=== PATIENT | female | born 1940 | race Caucasian/White ===

== ENCOUNTER 2019-11-20 14:16 | Emergency (ER) | payer MEDICARE, SELFPAY ==
[2019-11-20 14:20] VITALS: BP 145/72; PULSE 84; RESP 16; TEMP 36.6; O2SAT 99
--- NOTE | 2019-11-20 14:53 | ED.FEMALEGU ---
HPI - Female Genitourinary General Chief complaint: Urogenital-Female Stated complaint: POS UTI Time Seen by Provider: 11/20/19 14:17 Source: patient Mode of arrival: ambulatory Limitations: no limitations History of Present Illness HPI Narrative: 78-year-old female presents to [facility] care with complaints of lower abdominal pressure and urinary frequency since yesterday. Patient reports long history of urinary tract infections and has had numerous surgeries due to frequent UTIs. Patient reports that she is flying out tomorrow morning to visit her sister in [place] and is concerned that she could be developing a urinary tract infection. Patient denies fever, bites, chills, nausea, vomiting or diarrhea. MD elicited complaint: UTI and other (lower abdominal pressure, urinary frequency ) Onset (ago): day(s) (2) Vaginal discharge: none Vaginal bleeding: none Urinary symptoms: Frequency Exacerbating factors: none Relieving factors: none Treatment prior to arrival: none Sexual activity: No Patient : No Related Data Home Medications Medication Instructions Recorded Confirmed aspirin 81 mg PO DAILY 02/20/19 09/24/19 rosuvastatin 10 mg tablet 10 mg PO DAILY 08/19/19 11/20/19 Saccharomyces boulardii 250 mg 250 mg PO BID 10/15/19 11/20/19 capsule calcium carbonate 390 mg calcium 390 mg PO DAILY 10/15/19 11/20/19 (1,000 mg) tablet cephalexin 250 mg capsule 250 mg PO DAILY 10/15/19 cholecalciferol (vitamin D3) 125 5,000 mcg PO DAILY 10/15/19 mcg (5,000 unit) disintegrating tablet coenzyme Q10 75 mg capsule 75 mg PO DAILY 10/15/19 11/20/19 turmeric 400 mg capsule mg PO 10/15/19 vitamins A,C,E-xkpc-tnbdll 14,320 1 cap PO BID 10/15/19 unit-226 mg-200 unit capsule conjugated estrogens [Premarin] 11/20/19 11/20/19 Allergies Allergy/AdvReac Type Severity Reaction Status Date / Time prednisone Allergy Unknown Unknown Verified 10/28/19 14:24 amoxicillin [From Augmentin] Allergy Rash Verified 10/28/19 14:24 clavulanic acid Allergy Rash Verified 10/28/19 14:24 [From Augmentin] Review of Systems Constitutional: Constitutional: Denies no additional constitutional complaints, Denies chills and Denies fatigue Eyes: Eyes: Denies change in vision and Denies photophobia ENT: Denies dysphagia, Denies dizziness, Denies epistaxis and Denies sore throat Cardiovascular: Cardiovascular: Denies chest pain, Denies rapid heart rate and Denies slow heart rate Respiratory: Respiratory: Denies chest congestion, Denies cough, Denies dyspnea and Denies wheezing Gastrointestinal: Gastrointestinal: Reports abdominal pain, Denies constipation, Denies diarrhea, Denies nausea and Denies vomiting Genitourinary: Genitourinary: Reports nocturia, Denies genital lesions, Denies dysuria, Denies pelvic pain, Denies flank pain and Denies vaginal discharge Neurologic: Denies vertigo, Denies dizziness and Denies syncope [facility] Past Medical History Medical History (Updated 11/20/19 @ 14:59 by Rianna Green APRN) Osteoarthritis of right knee Urinary tract infection, site not specified Social History Social History Smoking status: Never smoker Alcohol intake: never Exam Const: General: no acute distress and alert Nutritional Appearance: well nourished Orientation/consciousness: patient oriented x3 Neck: Neck: normal visual inspection Resp: Effort & Inspection: normal respiratory effort, not labored and not tachypneic Auscultation: clear to auscultation bilaterally, no rales, no rhonchi and no wheezes Cardio: Rate: regular rate, not bradycardic and not tachycardic Rhythm: regular rhythm Heart sounds: no murmurs GI: Inspection: non-distended GI Palp: Yes Soft to palpation, No Tenderness to palpation present (GI), No Guarding due to palpation present (GI), No Hernia present, No Palpable mass present and No Rebound tenderness present Auscultation: normal bow
== END 2019-11-20 15:05 | disposition home or self-care (01) ==
PROVIDERS: Emergency Provider Nurse Practitioner Family; PCP Family Medicine
DX: R35.0 Frequency of micturition (principal); M17.11 Unilateral primary osteoarthritis, right knee
CPT/HCPCS: 81003; 87086; 87088; 99213; G0463

== ENCOUNTER 2020-05-23 13:30 | Emergency (ER) | payer MEDICARE, SELFPAY ==
[2020-05-23 14:07] VITALS: BP 131/76; PULSE 101; RESP 12; TEMP 37; O2SAT 98
--- NOTE | 2020-05-23 14:41 | ED.FEMALEGU ---
HPI - Female Genitourinary General Chief complaint: Urogenital-Female Stated complaint: frequent urination Time Seen by Provider: 05/23/20 14:51 History of Present Illness HPI Narrative: 79-year-old female presents to the care with complaints of urinary urgency, frequency since yesterday. States that she was prescribed by a urogynecologist a preventative antibiotic and ran out about 3 months ago while she was in [place]. Has an appointment with them in June. Reports trying to call and get a refill however was told she needed to be seen in the office before they write a refill. Denies any CVA tenderness. Reports suprapubic pressure. No chest pain or shortness of breath. Denies fevers. Related Data Home Medications Medication Instructions Recorded Confirmed aspirin 81 mg PO DAILY 02/20/19 05/23/20 rosuvastatin 10 mg tablet 10 mg PO DAILY 08/19/19 05/23/20 Saccharomyces boulardii 250 mg 250 mg PO BID 10/15/19 05/23/20 capsule calcium carbonate 390 mg calcium 390 mg PO DAILY 10/15/19 05/23/20 (1,000 mg) tablet cholecalciferol (vitamin D3) 125 5,000 mcg PO DAILY 10/15/19 05/23/20 mcg (5,000 unit) disintegrating tablet coenzyme Q10 75 mg capsule 75 mg PO DAILY 10/15/19 05/23/20 turmeric 400 mg capsule 400 mg PO DAILY 10/15/19 05/23/20 vitamins A,C,T-ngxg-kahygn 14,320 1 cap PO BID 10/15/19 05/23/20 unit-226 mg-200 unit capsule conjugated estrogens [Premarin] 11/20/19 11/20/19 Allergies Allergy/AdvReac Type Severity Reaction Status Date / Time prednisone Allergy Unknown Unknown Verified 05/23/20 14:12 amoxicillin [From Augmentin] Allergy Rash Verified 05/23/20 14:12 clavulanic acid Allergy Rash Verified 05/23/20 14:12 [From Augmentin] Review of Systems Review of Systems: Narrative: CONSTITUTIONAL: Denies fever, chills, or sweats. EYES: Denies visual changes, redness, or discharge. ENT: Denies rhinorrhea, congestion, sore throat, or otalgia. CARDIOVASCULAR: Denies chest pain, palpitations, or edema. RESPIRATORY: Denies cough or dyspnea. GASTROINTESTINAL: Denies abdominal pain, nausea, vomiting, or diarrhea. GENITOURINARY: Reports frequency, urgency and burning with urination SKIN: Denies rash or itching. MUSCULOSKELETAL: Denies back pain, joint pain, or myalgia. NEUROLOGIC: Denies headache, numbness, or weakness. PSYCHIATRIC: Denies anxiety or depression. All other systems reviewed are negative, except as documented in HPI. [facility] Past Medical History Medical History Osteoarthritis of right knee Urinary tract infection, site not specified Surgical History Surgical History (Updated 05/23/20 @ 17:37 by Michelle Turpin) History of bladder surgery Social History Social History Smoking status: Never smoker Alcohol intake: never Comments At the time of my signature, I reviewed and agree with the nursing past medical, surgical, social, and family history. There is no relevant family history pertinent to the patient complaint. Exam Narrative: Exam Narrative: GENERAL: This is a well-nourished, well-developed patient, in no apparent distress. HEAD: normocephalic, atraumatic. EYES: PERRL. Sclera clear/white. Vision is grossly intact. EARS: External ears normal CARDIOVASCULAR: Regular rate and rhythm without murmurs, gallops, or rubs. RESPIRATORY: Clear to auscultation. Breath sounds equal bilaterally. No wheezes, rales, or rhonchi. GASTROINTESTINAL: Abdomen soft, non-tender, nondistended. Bowel sounds are active. No hepato-splenomegaly, or palpable masses. No guarding. SKIN: warm, intact with no suspicious lesions or rash, good texture and turgor. NEURO: awake, alert, and oriented to person, place and time. There were no obvious focal neurologic abnormalities. EXTREMITIES: No joint tenderness, effusion, or edema noted. No calf tenderness. Negative Homans sign bilaterally. BACK: Nontender without deformity.
== END 2020-05-23 14:57 | disposition home or self-care (01) ==
PROVIDERS: Emergency Provider Nurse Practitioner; PCP Family Medicine
DX: N30.01 Acute cystitis with hematuria (principal); M17.11 Unilateral primary osteoarthritis, right knee
CPT/HCPCS: 81003; 87077; 87086; 87088; 87186; 99213; G0463

== ENCOUNTER → 2020-06-02 10:45 | Outpatient (CLI) | payer MEDICARE, SELFPAY ==
--- NOTE | ~2020-06-02 | CT_ITS ---
EXAMINATION: CT abdomen pelvis wo con DATE: 06/02/2020 11:05 INDICATION: Recurrent urinary tract infections TECHNIQUE: Computed tomography (CT) of the abdomen and pelvis was performed without intravenous contr ast. Automated exposure control and iterative reconstruction technique were employed. Exam dose: 771 .53 mGy-cm total exam DLP. COMPARISON: 07/25/2017 CT abdomen pelvis FINDINGS: There are several 3 mm or smaller peripheral and subpleural-based 3 mm smaller nodules at t he left lower lobe, 2 contiguous 3.7 mm and smaller right lower lobe nodules and a small pleural-base d nodule at the posterolateral aspect of the right diaphragm, all stable since 07/25/2017, consistent with benign process(es). No infiltrate or consolidation at the lung bases. Normal heart size. Coronary artery calcifications. Prominent mitral annulus calcification. No pericar dial or pleural effusion. Small sliding hiatal hernia. The liver, gallbladder, bile ducts, spleen, pancreas, pancreatic duct and adrenal glands are unremark able. 2 cm exophytic left renal cysts; the kidneys are otherwise unremarkable. No urinary tract calculus or hydroureteronephrosis. Bilateral posterolateral urinary bladder diverticula. Status post hysterectomy. There is atherosclerotic calcification but normal caliber of the abdominal aorta and iliac arteries. No intraperitoneal or retroperitoneal or pelvic mass lesion or adenopathy or ascites. Normal appendix. There is diverticulosis of the left and to a lesser extent right colon. There is no CT evidence of diverticulitis. No bowel obstruction, bowel wall thickening, pneumatosis or intraperit early free air. Very small fat-containing umbilical hernia. Severe degenerative changes apophyseal joints of the lumbar and lumbosacral area with associated grad e 2 anterolisthesis at L4-5. There is severe degenerative disc disease throughout the lumbar and lumbosacral spine. No suspicious osteolytic or osteoblastic lesions are noted. Bilateral hip osteoarthritis. IMPRESSION: Stable lower lung and pleura-based nodules, unchanged since , therefore benign Small sliding hiatal hernia Left renal cysts Diverticula of the urinary bladder Status post hysterectomy Diverticulosis of the colon; no CT evidence of diverticulitis Reviewed, dictated and finalized at [facility]. Reviewed, dictated and finalized at [facility]. IMPRESSION: Stable lower lung and pleura-based nodules, unchanged since 018, therefore benign Small sliding hiatal hernia Left renal cysts Diverticula of the urinary bladder Status post hysterectomy Diverticulosis of the colon; no CT evidence of diverticulitis
== END ==
DX: N39.0 Urinary tract infection, site not specified (principal); R92.8 Other abnormal and inconclusive findings on diagnostic imaging of breast; I25.10 Atherosclerotic heart disease of native coronary artery without angina pectoris; K44.9 Diaphragmatic hernia without obstruction or gangrene; N32.3 Diverticulum of bladder; Z90.710 Acquired absence of both cervix and uterus; K42.9 Umbilical hernia without obstruction or gangrene; M47.817 Spondylosis without myelopathy or radiculopathy, lumbosacral region; N28.1 Cyst of kidney, acquired; K57.30 Diverticulosis of large intestine without perforation or abscess without bleeding
CPT/HCPCS: 74176

== ENCOUNTER → 2020-09-27 13:01 | Outpatient (CLI) | payer MEDICARE, SELFPAY ==
--- NOTE | ~2020-09-27 | US_ITS ---
EXAMINATION: US retroperitoneal comp DATE: 09/27/2020 14:16 INDICATION: Low back pain and bloating. Bladder infection. TECHNIQUE: Multiple ultrasound grayscale images of the kidneys were obtained. COMPARISON: CT dated 06/02/2020 FINDINGS: The right kidney measures 11.1 x 4.3 x 5.7 cm. The left kidney measures 11.1 x 4.3 x 5.1 cm. The kidn eys demonstrate normal echogenicity. 2.2 cm exophytic cyst at the upper pole of the left kidney. Ther e is no hydronephrosis in either kidney. No stones identified. Again seen are couple bladder diverti cula. IMPRESSION: 1. 2.2 cm left renal cyst. Otherwise normal kidneys with no hydronephrosis. 2. A couple bladder diverticula. Reviewed, dictated and finalized at location [facility].
== END ==
PROVIDERS: PCP Family Medicine; Visit Provider Nurse Practitioner Adult Health
DX: M54.5 Low back pain (principal); N28.1 Cyst of kidney, acquired; N32.3 Diverticulum of bladder
CPT/HCPCS: 76770

== ENCOUNTER → 2020-11-30 10:25 | Outpatient (CLI) | payer MEDICARE, SELFPAY ==
--- NOTE | ~2020-11-30 | MM_ITS ---
EXAMINATION: MM screening brent BI w [facility] HISTORY: Screening mammogram, family history of breast cancer in her sister. TECHNIQUE: Craniocaudal and mediolateral oblique 3-D tomosynthesis images were obtained and synthetic 2-D images were generated. CAD analysis was submitted and interpreted. COMPARISON: No prior mammogram is available for comparison at this institution. BREAST PARENCHYMAL COMPOSITION: There are scattered areas of fibroglandular density. FINDINGS: Scattered benign-appearing calcifications are present. There is no evidence of suspicious m ass, calcification, or architectural distortion to suggest malignancy in either breast. IMPRESSION: 1. No mammographic evidence of malignancy. 2. Recommend routine screening mammography while the patient remains in good health. BI-RADS Category 2: Benign finding(s). Reviewed, dictated and finalized at location [facility]. IMPRESSION: 1. No mammographic evidence of malignancy. 2. Recommend routine screening mammography while the patient remains in good he alth. BI-RADS Category 2: Benign finding(s).
== END ==
PROVIDERS: PCP Family Medicine; Visit Provider Family Medicine
DX: Z12.31 Encounter for screening mammogram for malignant neoplasm of breast (principal)
CPT/HCPCS: 77063; 77067

== ENCOUNTER → 2021-03-23 14:08 | Outpatient (CLI) | payer MEDICARE, SELFPAY ==
--- NOTE | ~2021-03-23 | XR_ITS ---
EXAMINATION: XR chest 2V DATE: 03/23/2021 14:34 INDICATION: Chronic cough. COVID-19 pneumonia in February. TECHNIQUE: Frontal and lateral views of the chest were obtained. COMPARISON: Chest 2 views 01/16/2018, CT abdomen and pelvis 06/02/2020 FINDINGS: There are reticular opacities in right mid and lower lung zones and left lower lung zone. N o pleural effusion or pneumothorax. The heart size is normal. IMPRESSION: 1. New reticular opacities in right mid and lower lung zones and left lower lung zone, consistent wit h atelectasis versus pneumonia versus mild chronic lung disease. Reviewed, dictated and finalized at location [facility]. TER DESIGNER IMPRESSION: 1. New reticular opacities in right mid and lower lung zones and left lower annamarie g zone, consistent with atelectasis versus pneumonia versus mild chronic lung d isease.
== END ==
PROVIDERS: PCP Family Medicine; Visit Provider Physician Assistant Medical
DX: R05.3 Chronic cough (principal)
CPT/HCPCS: 71046

== ENCOUNTER 2021-03-23 17:01 | Emergency (ER) | payer MEDICARE, SELFPAY ==
[2021-03-23 17:05] VITALS: BP 141/113; PULSE 96; RESP 18; TEMP 37; O2SAT 98
[2021-03-23 19:07] VITALS: BP 153/86; PULSE 98; RESP 15; O2SAT 96
--- NOTE | 2021-03-23 21:35 | ED.GENADULT ---
HPI - General Adult General Chief complaint: Shortness of Breath/Dyspnea Stated complaint: sent by for covid pneumonia Time Seen by Provider: 03/23/21 21:08 History of Present Illness HPI narrative: Patient 80-year-old female who presents the emergency department with chief complaint of cough and a bit of shortness of breath. Patient reports she recently was diagnosed COVID-19 patient has had it for at least 5 to 10 days patient reports that she had a chest x-ray today that showed may be a little bit of pneumonia patient was started on Zithromax and also started on Tessalon Perles only 100 mg twice daily. Patient reports that last night she felt worse and now starting to feel little better but still felt like she probably need to be evaluated in the emergency department. Related Data Home Medications Medication Instructions Recorded Confirmed aspirin 81 mg PO DAILY 02/20/19 11/04/20 Saccharomyces boulardii 250 mg 250 mg PO BID 10/15/19 11/04/20 capsule calcium carbonate 390 mg calcium 390 mg PO DAILY 10/15/19 11/04/20 (1,000 mg) tablet cholecalciferol (vitamin D3) 125 5,000 mcg PO DAILY 10/15/19 11/04/20 mcg (5,000 unit) disintegrating tablet coenzyme Q10 75 mg capsule 75 mg PO DAILY 10/15/19 11/04/20 turmeric 400 mg capsule 400 mg PO DAILY 10/15/19 11/04/20 vitamins A,C,R-deof-fayvay 14,320 1 cap PO BID 10/15/19 11/04/20 unit-226 mg-200 unit capsule conjugated estrogens [Premarin] 11/20/19 11/04/20 nitrofurantoin macrocrystal 100 mg 100 mg PO Q12H 10/26/20 11/04/20 capsule Allergies Allergy/AdvReac Type Severity Reaction Status Date / Time prednisone Allergy Unknown Unknown Verified 11/04/20 09:39 amoxicillin [From Augmentin] Allergy Rash Verified 11/04/20 09:39 clavulanic acid Allergy Rash Verified 11/04/20 09:39 [From Augmentin] Review of Systems Review of Systems: A 10 system review of systems was completed on the patient and is negative except for what is stated in the HPI. Nursing and ancillary documentation was reviewed. [facility] Past Medical History Medical History BMI 29.0-29.9,adult BMI 30.0-30.9,adult Cataract, right eye Osteoarthritis of right knee Screen for colon cancer Urinary tract infection, site not specified Surgical History Surgical History History of bladder surgery Family History Family History Father Acute myocardial infarction Heart disease Mother Tobacco abuse Alcohol abuse Cancer Sibling Skin cancer Sibling No problems noted. 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 HEAD: Normocephalic, atraumatic. EYES: PERRLA and EOMI. ENT: Nares clear, no rhinorrhea or epistaxis. Mucous membranes moist. NECK: Supple. CHEST: Clear to auscultation. No respiratory distress. HEART: Regular rate and rhythm. No murmur heard. Normal peripheral pulses. ABDOMEN: Soft, nontender, nondistended, normal active bowel sounds. EXTREMITIES: Normal range of motion. No edema. SKIN: Warm, dry, no rash. NEURO: No focal deficits. Alert and oriented x3. PSYCH: Normal mood and affect. Course Course Emergency Course: Chest x-ray was reviewed from earlier today which showed evidence of pneumonia Vital Signs Vital signs: Vital Signs Temperature 37.0 C 03/23/21 17:05 Pulse Rate
[2021-03-23] MEDS: ALBUTEROL SULFATE (*SP) INHALER 2 PUFF INHALATION (22:04)
== END 2021-03-23 22:27 | disposition home or self-care (01) ==
PROVIDERS: Emergency Provider Emergency Medicine; PCP Family Medicine
DX: U07.1 COVID-19 (principal); J12.82 Pneumonia due to coronavirus disease 2019
CPT/HCPCS: 99283; A9270

== ENCOUNTER → 2021-03-31 12:10 | Outpatient (CLI) | payer MEDICARE, SELFPAY ==
--- NOTE | ~2021-03-31 | XR_ITS ---
EXAMINATION: XR chest 2V EXAM DATE: 03/31/2021 12:35 INDICATION: U07.1 - COVID-19 . TECHNIQUE: Frontal and lateral projections of the chest obtained and reviewed. Comparison is made to prior examination from 03/23/2021. FINDINGS: The lungs are clear. There are no pleural effusions. The cardiomediastinal silhouette is within normal limits. Dense mitral annular calcifications. There is no pneumothorax suspected. The b ones and soft tissues are unremarkable. IMPRESSION: No acute cardiopulmonary findings. Reviewed, dictated and finalized at location [facility]. ERN PHILOSOPHY PROFESSOR
== END ==
PROVIDERS: PCP Family Medicine; Visit Provider Nurse Practitioner Family
DX: U07.1 COVID-19 (principal); R05.3 Chronic cough
CPT/HCPCS: 71046

== ENCOUNTER 2021-04-26 10:22 | Emergency (ER) | payer MEDICARE, SELFPAY ==
[2021-04-26 10:27] VITALS: BP 154/90; PULSE 90; RESP 16; TEMP 36.7; O2SAT 99
--- NOTE | 2021-04-26 10:46 | ED.FEMALEGU ---
HPI - Female Genitourinary General Chief complaint: Urogenital-Female Stated complaint: Urinary pain Time Seen by Provider: 04/26/21 10:55 Source: patient Limitations: no limitations History of Present Illness HPI Narrative: 80-year-old female presented for complaint of UTI symptoms not improving after 6 days of Macrodantin. She was seen at an urgent care in [facility], told she had a UTI and given the antibiotics which she has been compliant. She states they have not informed her of the culture results, but she denies improvement in symptoms. Endorses suprapubic pressure. She denies burning, flank pain, hematuria, nausea, vomiting, diarrhea, fever or chills. She states she has had approximately 6 UTIs per year over the last 4 years and has seen approximately 5 different urologists. Bladder lift surgery 5 years ago. She is scheduled with a urologist in 5 days. Related Data Home Medications Medication Instructions Recorded Confirmed cholecalciferol (vitamin D3) 125 5,000 mcg PO DAILY 10/15/19 04/03/21 mcg (5,000 unit) disintegrating tablet vitamins A,C,T-rzzg-ejcsnv 14,320 1 cap PO BID 10/15/19 04/03/21 unit-226 mg-200 unit capsule aspirin 81 mg tablet,delayed 162 mg PO DAILY tablet 04/01/21 04/03/21 release nitrofurantoin macrocrystal 04/26/21 Allergies Allergy/AdvReac Type Severity Reaction Status Date / Time prednisone Allergy Unknown Unknown Verified 04/01/21 09:25 amoxicillin [From Augmentin] Allergy Rash Verified 04/01/21 09:25 clavulanic acid Allergy Rash Verified 04/01/21 09:25 [From Augmentin] Review of Systems Review of Systems: CONSTITUTIONAL: Denies body aches, fever, chills, or sweats. CARDIOVASCULAR: Denies chest pain, palpitations, or edema. RESPIRATORY: Denies cough or dyspnea. GASTROINTESTINAL: Denies abdominal pain, nausea, vomiting, or diarrhea. GENITOURINARY: Reports suprapubic pressure, denies dysuria, frequency, urgency, hematuria, flank pain SKIN: Denies rash, itching, or wounds. MUSCULOSKELETAL: Denies back pain or myalgia. PMFSH Past Medical History Medical History BMI 29.0-29.9,adult BMI 30.0-30.9,adult Cataract, right eye Osteoarthritis of right knee Screen for colon cancer Urinary tract infection, site not specified Surgical History Surgical History History of bladder surgery Family History Family History Father Acute myocardial infarction Heart disease Mother Tobacco abuse Alcohol abuse Cancer Sibling Skin cancer Sibling No problems noted. Grandparent Heart disease Grandparent Heart disease Social History Social History Smoking status: Former smoker Second hand tobacco smoke exposure: Yes Alcohol intake: current Substance use: never Substance use type: does not use Additional occupation/education comments: [employer] Gender identity (if verbalized by the patient): Female Comments At time of signature, I have reviewed and agree with nursing past medical, surgical, social and family history unless otherwise noted. Please see nursing chart for further information. There is no relevant family history pertinent to the presenting complaint Exam Narrative: GENERAL: Well-appearing and in no acute distress. HEAD: Normocephalic EYES: EOMI. ENT: Mucous membranes pink and moist. NECK: Normal AROM. Supple. CHEST: No respiratory distress. Clear to auscultation. HEART: Regular rate and rhythm. ABDOMEN: Soft, nontender, nondistended, normal active bowel sounds. No CVA tenderness MUSCULOSKELETAL: No bony tenderness. SKIN: Warm, dry, no rash. NEURO: No focal deficits. Alert and oriented x3. Gait steady. PSYCH: Normal affect. No signs of depre
== END 2021-04-26 11:13 | disposition home or self-care (01) ==
PROVIDERS: Emergency Provider Nurse Practitioner Family; PCP Family Medicine
DX: N39.0 Urinary tract infection, site not specified (principal); Z87.891 Personal history of nicotine dependence; H26.9 Unspecified cataract; M17.11 Unilateral primary osteoarthritis, right knee
CPT/HCPCS: 81003; 87086; 99213; G0463

== ENCOUNTER 2021-06-19 11:48 | Emergency (ER) | payer MEDICARE, SELFPAY ==
[2021-06-19 12:59] VITALS: BP 144/86; PULSE 92; RESP 16; TEMP 36.6; O2SAT 99
--- NOTE | 2021-06-19 13:02 | ED.GENADULT ---
HPI - General Adult General Chief complaint: Urogenital-Female Stated complaint: uti symptoms Source: patient Mode of arrival: ambulatory Limitations: no limitations History of Present Illness HPI narrative: Pt presents for evaluation of urinary symptoms that started this weekend. She reports dysuria, suprapubic pressure and lower back pain. No fever, chills, nausea, vomiting, hematuria, hesitancy, urgency. She has a history of recurrent urinary tract infections. She states she has seen multiple urologists in the past and has tried several therapies, which have been ineffective. She states she has been seen at [facility] multiple times for this. Several urine cultures in past showed no growth. One urine culture grew out e coli and vancomycin resistant enterococcus faecalis. Related Data Home Medications Medication Instructions Recorded Confirmed cholecalciferol (vitamin D3) 125 5,000 mcg PO DAILY 10/15/19 06/19/21 mcg (5,000 unit) disintegrating tablet vitamins A,C,D-zzae-ugubzq 14,320 1 cap PO BID 10/15/19 06/19/21 unit-226 mg-200 unit capsule Allergies Allergy/AdvReac Type Severity Reaction Status Date / Time prednisone Allergy Unknown Unknown Verified 06/19/21 12:06 amoxicillin [From Augmentin] Allergy Rash Verified 06/19/21 12:06 clavulanic acid Allergy Rash Verified 06/19/21 12:06 [From Augmentin] Review of Systems Review of Systems: CONSTITUTIONAL: Denies fever, chills, or sweats. EYES: Denies visual changes, redness, or discharge. ENT: Denies rhinorrhea, congestion, sore throat, or otalgia. CARDIOVASCULAR: Denies chest pain, palpitations, or edema. RESPIRATORY: Denies cough or dyspnea. GASTROINTESTINAL: Reports suprapubic pressure. Denies nausea, vomiting, or diarrhea. GENITOURINARY: Reports dysuria without hematuria, urgency, frequency or hesitancy. SKIN: Denies rash or itching. MUSCULOSKELETAL: Denies back pain, joint pain, or myalgia. NEUROLOGIC: Denies headache, numbness, dizziness, or weakness. PSYCHIATRIC: Denies anxiety or depression. [facility] Past Medical History Medical History BMI 29.0-29.9,adult BMI 30.0-30.9,adult Cataract, right eye Osteoarthritis of right knee Screen for colon cancer Urinary tract infection, site not specified Surgical History Surgical History History of bladder surgery Family History Family History Father Acute myocardial infarction Heart disease Mother Tobacco abuse Alcohol abuse Cancer Sibling Skin cancer Sibling No problems noted. 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 HEAD: Normocephalic, atraumatic. EYES: PERRLA and EOMI. ENT: Nares clear, no rhinorrhea or epistaxis. Mucous membranes moist. Oropharynx without tonsillar hypertrophy exudate or other lesions. Bilateral TMs pearly wray nonbulging NECK: Supple. No adenopathy or masses. No carotid bruits or JVD CHEST: Clear to auscultation. No respiratory distress. No wheezes rales or rhonchi HEART: Regular rate and rhythm. No murmur heard. Normal peripheral pulses. ABDOMEN: Soft, nontender, nondistended, normal active bowel sounds. EXTREMITIES: Normal range of motion. No edema. BACK: No CVA tenderness SKIN: Warm, dry, no rash. NEURO: No focal deficits. Alert and oriented x3. PSYCH: Nor
== END 2021-06-19 13:04 | disposition home or self-care (01) ==
PROVIDERS: Emergency Provider Nurse Practitioner; PCP Family Medicine
DX: N39.0 Urinary tract infection, site not specified (principal); Z87.891 Personal history of nicotine dependence; M17.11 Unilateral primary osteoarthritis, right knee
CPT/HCPCS: 81003; 87077; 87086; 87186; 99213; G0463

== ENCOUNTER 2021-08-13 10:07 | Emergency (ER) | payer MEDICARE, SELFPAY ==
[2021-08-13 10:19] VITALS: BP 138/76; PULSE 83; RESP 12; TEMP 36.1; O2SAT 99
--- NOTE | 2021-08-13 10:40 | ED.GENADULT ---
HPI - General Adult General Chief complaint: Urogenital-Female Stated complaint: uti symptoms Source: patient Mode of arrival: ambulatory Limitations: no limitations History of Present Illness HPI narrative: Patient presents for evaluation of urinary symptoms for the last 2 days. Symptoms include dysuria, suprapubic cramping, low back pain, urinary urgency. She denies any fever, chills, nausea, vomiting, hematuria. She has a history of recurrent urinary tract infections. She has been seen at [facility] multiple times in the past for urinary tract infections. I saw her here on 06/19/2021 and diagnosed her with a UTI. She was given Bactrim. Urine culture grew out E. coli, resistant to Bactrim. It was susceptible to Augmentin, but she has an allergy to that. She was changed to macrobid upon receipt of urine culture. She has seen several urologists in the past. She states she has had a battery of tests including cystoscopy. She is not diabetic. She does take some OTC supplements in hopes that she will have decreased frequency of UTI's/ Related Data Home Medications Medication Instructions Recorded Confirmed cholecalciferol (vitamin D3) 125 5,000 mcg PO DAILY 10/15/19 08/13/21 mcg (5,000 unit) disintegrating tablet vitamins A,C,M-pknb-wilyix 14,320 1 cap PO BID 10/15/19 08/13/21 unit-226 mg-200 unit capsule (PreserVision AREDS) conjugated estrogens 0.625 mg/gram 1 applic vaginal DAILY 08/13/21 08/13/21 vaginal cream (Premarin) methenamine hippurate 1 gram tablet 1 tablet PO BID 08/13/21 08/13/21 Allergies Allergy/AdvReac Type Severity Reaction Status Date / Time prednisone Allergy Unknown Unknown Verified 08/13/21 10:19 amoxicillin [From Augmentin] Allergy Rash Verified 08/13/21 10:19 clavulanic acid Allergy Rash Verified 08/13/21 10:19 [From Augmentin] Review of Systems Review of Systems: CONSTITUTIONAL: Denies fever, chills, or sweats. EYES: Denies visual changes, redness, or discharge. ENT: Denies rhinorrhea, congestion, sore throat, or otalgia. CARDIOVASCULAR: Denies chest pain, palpitations, or edema. RESPIRATORY: Denies cough or dyspnea. GASTROINTESTINAL: Reports suprapubic cramping. Denies nausea, vomiting, or diarrhea. GENITOURINARY:Reports dysuria and urgency. Denies hematuria SKIN: Denies rash or itching. MUSCULOSKELETAL: Reports low back pain. Denies joint pain, or myalgia. NEUROLOGIC: Denies headache, numbness, dizziness, or weakness. PSYCHIATRIC: Denies anxiety or depression. [facility] Past Medical History Medical History BMI 29.0-29.9,adult BMI 30.0-30.9,adult Cataract, right eye Osteoarthritis of right knee Screen for colon cancer Urinary tract infection, site not specified Surgical History Surgical History History of bladder surgery Family History Family History Father Acute myocardial infarction Heart disease Mother Tobacco abuse Alcohol abuse Cancer Sibling Skin cancer Sibling No problems noted. 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 HEAD: Normocephalic, atraumatic. EYES: PERRLA and EOMI. ENT: Nares clear, no rhinorrhea or epistaxis. Mucous membranes moist. Oropharynx without tonsillar hypertrophy exudate or other lesions. Bilateral TMs pearly wray nonbulging N
== END 2021-08-13 10:45 | disposition home or self-care (01) ==
PROVIDERS: Emergency Provider Nurse Practitioner; PCP Family Medicine
DX: N39.0 Urinary tract infection, site not specified (principal); Z87.891 Personal history of nicotine dependence; H26.9 Unspecified cataract; M17.11 Unilateral primary osteoarthritis, right knee
CPT/HCPCS: 81003; 87077; 87086; 87186; 99213; G0463

== ENCOUNTER 2021-08-28 11:47 | Emergency (ER) | payer MEDICARE, SELFPAY ==
[2021-08-28 12:10] VITALS: BP 178/95; PULSE 85; RESP 16; TEMP 37.1; O2SAT 99
--- NOTE | 2021-08-28 12:12 | ED.FEMALEGU ---
HPI - Female Genitourinary General Chief complaint: Urogenital-Female Stated complaint: UTI SYMPTOMS Time Seen by Provider: 08/28/21 12:15 Source: patient Mode of arrival: ambulatory Limitations: no limitations History of Present Illness HPI Narrative: is a an 80-year-old female patient presenting to the clinic today with complaints of possible UTI. She reports she finished her nitrofurantoin 10 days ago and is still having bladder pressure, frequency and urgency with urination. She also reports some lower abdominal pressure and low back pain. States she has been having ongoing/frequent UTIs ever since she has had her bladder surgery. Related Data Home Medications Medication Instructions Recorded Confirmed cholecalciferol (vitamin D3) 125 5,000 mcg PO DAILY 10/15/19 08/13/21 mcg (5,000 unit) disintegrating tablet vitamins A,C,X-yhvr-vzspra 14,320 1 cap PO BID 10/15/19 08/13/21 unit-226 mg-200 unit capsule (PreserVision AREDS) conjugated estrogens 0.625 mg/gram 1 applic vaginal DAILY 08/13/21 08/13/21 vaginal cream (Premarin) methenamine hippurate 1 gram tablet 1 tablet PO BID 08/13/21 08/13/21 Allergies Allergy/AdvReac Type Severity Reaction Status Date / Time prednisone Allergy Unknown Unknown Verified 08/13/21 10:19 amoxicillin [From Augmentin] Allergy Rash Verified 08/13/21 10:19 clavulanic acid Allergy Rash Verified 08/13/21 10:19 [From Augmentin] Review of Systems Review of Systems: Pertinent positives per HPI. Patient denies any fever, chills, rash, headache, visual changes, dizziness, cough, runny nose, sore throat, shortness of breath, chest pain, palpitations, nausea, vomiting, diarrhea, constipation, abdominal pain. [facility] Past Medical History Medical History BMI 29.0-29.9,adult BMI 30.0-30.9,adult Cataract, right eye Osteoarthritis of right knee Screen for colon cancer Urinary tract infection, site not specified Surgical History Surgical History History of bladder surgery Family History Family History Father Acute myocardial infarction Heart disease Mother Tobacco abuse Alcohol abuse Cancer Sibling Skin cancer Sibling No problems noted. Grandparent Heart disease Grandparent Heart disease Social History Social History Smoking status: Former smoker Second hand tobacco smoke exposure: Yes Alcohol intake: current Substance use: never Substance use type: does not use Additional occupation/education comments: [employer] insurance Gender identity (if verbalized by the patient): Female Comments At the time of my signature, I reviewed and agree with the nursing past medical, surgical, social, and family history. There is no relevant family history pertinent to the patient complaint. Exam Narrative: General: Well-developed, well nourished, in no apparent distress. Head: Normocephalic, atraumatic. Cardio: Regular rate and rhythm, s1 and s2 normal, no murmur appreciated. Resp: Clear to auscultation bilaterally, no rhonchi, rales, wheezing or rubs. Abdomen: Soft, pliable, bowel sounds present in all quadrants, mild tender to palpation over the suprapubic area, no organomegly, no CVAT tenderness. Course Course Emergency Course: Portions of this record may have been created with voice recognition software. Level of Care: Express Care Visit Vital Signs Vital signs: Vital signs reviewed MDM - Female Genitourinary MDM Narrative Medical decision making narrative: At the time of visit patient is resting comfortably on the exam table. Her last urine culture on August 13 shows that she had E. coli with ESBL in the urine. She was placed on nitrofurantoin fo
== END 2021-08-28 12:35 | disposition home or self-care (01) ==
PROVIDERS: Emergency Provider Nurse Practitioner Family; PCP Family Medicine
DX: N39.0 Urinary tract infection, site not specified (principal); Z87.891 Personal history of nicotine dependence; M17.11 Unilateral primary osteoarthritis, right knee; H26.9 Unspecified cataract
CPT/HCPCS: 81003; 87086; 87088; 99213; G0463

== ENCOUNTER 2021-09-24 09:43 | Emergency (ER) | payer MEDICARE, SELFPAY ==
[2021-09-24 09:51] VITALS: BP 140/88; PULSE 102; RESP 16; TEMP 37.3; O2SAT 97
--- NOTE | 2021-09-24 10:06 | ED.URI ---
HPI - URI/Sore Throat General Chief Complaint: Upper Respiratory Infection Stated Complaint: cough,ears clogged Time Seen by Provider: 09/24/21 10:07 Source: patient, RN notes reviewed and old records reviewed Mode of arrival: ambulatory Limitations: no limitations History of Present Illness HPI Narrative: 80 year old female who presents to [facility] care with complaints with 3-day history of nasal congestion cough, sinus pressure and pain, bilateral ear pressure. Patient states she has not had a fever that she is aware of denies any chills or sweats. patient has not had COVID vaccinations or flu shot this season did have COVID in March. MD elicited complaint: cough, rhinorrhea, nasal congestion, sinus pain and other Pertinent past history: pneumonia and other (COVID) Onset (ago): day(s) (3) Pain scale (0-10): 5 Treatments prior to arrival: other (vitamins, nasal spray and coricidan brand decogestant) Related Data Home Medications Medication Instructions Recorded Confirmed cholecalciferol (vitamin D3) 125 5,000 mcg PO DAILY 10/15/19 09/24/21 mcg (5,000 unit) disintegrating tablet vitamins A,C,N-hkpt-hgtzur 14,320 1 cap PO BID 10/15/19 09/24/21 unit-226 mg-200 unit capsule (PreserVision AREDS) conjugated estrogens 0.625 mg/gram 1 applic vaginal DAILY 08/13/21 09/24/21 vaginal cream (Premarin) methenamine hippurate 1 gram tablet 1 tablet PO BID 08/13/21 09/24/21 Allergies Allergy/AdvReac Type Severity Reaction Status Date / Time prednisone Allergy Unknown Unknown Verified 09/24/21 10:16 amoxicillin [From Augmentin] Allergy Rash Verified 09/24/21 10:16 clavulanic acid Allergy Rash Verified 09/24/21 10:16 [From Augmentin] Review of Systems Review of Systems: CONSTITUTIONAL: Denies known fever, chills, or sweats. EYES: Denies visual changes, redness, or discharge. ENT: Positive rhinorrhea, congestion, no sore throat, bilateral ear pressure CARDIOVASCULAR: Denies chest pain, palpitations, or edema. RESPIRATORY: Positive cough no dyspnea. GASTROINTESTINAL: Denies abdominal pain, nausea, vomiting, or diarrhea. GENITOURINARY: Denies dysuria or hematuria. SKIN: Denies rash or itching. MUSCULOSKELETAL: Denies back pain, joint pain, or myalgia. NEUROLOGIC: Positive headache, no numbness, or weakness. PSYCHIATRIC: Denies anxiety or depression. All systems reviewed & are unremarkable except as noted in HPI and below PMFSH Past Medical History Medical History (Updated 09/25/21 @ 01:03 by Jovanna Malagon NP) BMI 29.0-29.9,adult BMI 30.0-30.9,adult Cataract, right eye COVID-30 March 2021 Osteoarthritis of right knee Screen for colon cancer Urinary tract infection, site not specified Surgical History Surgical History History of bladder surgery Family History Family History Father Acute myocardial infarction Heart disease Mother Tobacco abuse Alcohol abuse Cancer Sibling Skin cancer Sibling No problems noted. Grandparent Heart disease Grandparent Heart disease Social History Social History (Updated 09/25/21 @ 01:04 by Jovanna Malagon NP) Smoking status: Former smoker Second hand tobacco smoke exposure: Yes Alcohol intake: current Alcohol use details: rare Substance use: never Substance use type: does not use Additional occupation/education comments: [employer] insurance Gender identity (if verbalized by the patient): Female Comments At time of signature, agree with nursing past medical, surgical, social and family history. There is no relevant family history pertinent to the presenting complaint Exam Narrative: GENERAL: Ill-appearing, well-nourished, and in no acute distress. HEAD: Normocephalic, atraumatic. EYES: PERRLA and EOMI. ENT: Nares red with clear rhinorrhea no epistaxis. Mucous membranes clemente
== END 2021-09-24 11:06 | disposition home or self-care (01) ==
PROVIDERS: Emergency Provider Registered Nurse; PCP Family Medicine
DX: U07.1 COVID-19 (principal); M17.11 Unilateral primary osteoarthritis, right knee; Z87.891 Personal history of nicotine dependence
CPT/HCPCS: 87426; 99213; C9803; G0463

== ENCOUNTER → 2021-11-09 10:55 | Outpatient (CLI) | payer MEDICARE, SELFPAY ==
--- NOTE | ~2021-11-09 | XR_ITS ---
EXAMINATION: XR abdomen/kub 1V DATE: 11/09/2021 11:53 INDICATION: Hematuria. TECHNIQUE: A supine view of the abdomen on 2 radiographs was obtained. COMPARISON: CT abdomen and pelvis 11/09/2021 FINDINGS: There are no dilated loops of bowel. There is no urolithiasis. IMPRESSION: 1. No urolithiasis. Reviewed, dictated and finalized at location A. IMPRESSION: 1. No urolithiasis.
--- NOTE | ~2021-11-09 | CT_ITS ---
EXAMINATION: CT abdomen pelvis wo/w con DATE: 11/09/2021 11:53 INDICATION: Hematuria. TECHNIQUE: Computed tomography (CT) of the abdomen and pelvis was performed without and with intraven ous contrast using a total of 130 mL Omnipaque-350 intravenous contrast with a double-bolus technique for simultaneous opacification of the renal parenchyma and renal collecting system. Automated exposu re control and iterative reconstruction technique were employed. The dose-length product was 1794.28 mGy-cm. COMPARISON: CT abdomen and pelvis 06/02/2020 FINDINGS: The visualized portions of the lung bases demonstrate minimal atelectasis. Again seen is a few pulmon raymundo nodules measuring up to 4 mm, likely benign. No pleural effusion. The heart size is normal. There are coronary artery calcifications. No pericardial effusion. The liver, spleen, gallbladder, pancrea s, adrenal glands, and right kidney are normal. There are cysts in left kidney measuring up to 2.3 cm . There is no urolithiasis. The ureters are well opacified and are normal. There are 2 intraluminal f illing defects in the bladder, likely hematoma. There are diverticula of the bladder. Pelvic floor dy sfunction is noted. There is diverticulosis of the colon without evidence of diverticulitis. There ar e no dilated loops of bowel. The appendix is normal. There is a small sliding hiatal hernia. There ar e no pathologically enlarged lymph nodes. There is no free intraperitoneal fluid. There is prominent fat in the inguinal canals that may be hernias. There is severe thoracic and lumbar spondylosis. IMPRESSION: 1. No etiology for hematuria. Small filling defects in the bladder lumen are likely hematoma. Reviewed, dictated and finalized at location A. IMPRESSION: 1. No etiology for hematuria. Small filling defects in the bladder lumen are li amberly hematoma.
[2021-11-09 11:28] LABS: Estimated Glomerular Filt Rate > 60
== END ==
PROVIDERS: PCP Family Medicine; Visit Provider Nurse Practitioner Adult Health
DX: R31.29 Other microscopic hematuria (principal)
CPT/HCPCS: 74018; 74178; Q9967

== ENCOUNTER → 2022-01-18 09:49 | Outpatient (CLI) | payer MEDICARE, SELFPAY ==
--- NOTE | ~2022-01-18 | XR_ITS ---
EXAMINATION: XR pelvis 1-2V INDICATION: Bilateral sciatica TECHNIQUE: AP view the pelvis is obtained. COMPARISON: 09/23/2015 FINDINGS: Bone alignment is normal. There is no fracture. There is moderate osteoarthritis of the hip s. Severe lumbar spondylosis is noted. There is calcified atherosclerosis. IMPRESSION: 1. Moderate osteoarthritis of the hips. Reviewed, dictated and finalized at location B. 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
== END ==
PROVIDERS: PCP Family Medicine
DX: M54.50 Low back pain, unspecified (principal); M16.0 Bilateral primary osteoarthritis of hip
CPT/HCPCS: 72170

== ENCOUNTER 2022-03-01 21:31 | Observation (INO) | payer MEDICARE, SELFPAY ==
[2022-03-01] VITALS (14 sets, daily range): BP systolic 100–167; BP diastolic 64–120; PULSE 78–152; RESP 15–20; TEMP 36.4; O2SAT 91–98
--- NOTE | ~2022-03-01 | NM_ITS ---
EXAMINATION: NM pulmonary perfusion DATE: 03/02/2022 13:18 INDICATION: Atrial fibrillation. Abnormal CT scan equivocal for pulmonary embolism TECHNIQUE: 5.9 mCi Tc-99m MAA by intravenous route. Scintigraphic images of the chest were obtained . COMPARISON: FINDINGS: There is relatively homogeneous perfusion throughout the lungs. No discrete perfusion defects identi fied. IMPRESSION: 1. Low probability for pulmonary embolism. Reviewed, dictated and finalized at location B. C THERAPIST
--- NOTE | ~2022-03-01 | XR_ITS ---
EXAMINATION: XR chest 1V portable INDICATION: Chest pain TECHNIQUE: Portable AP chest at 2219 hours COMPARISON: 03/31/2021 FINDINGS: A nodular opacity is present in right lung base. No pleural effusion or pneumothorax. The c ardiomediastinal silhouette is normal. IMPRESSION: 1. Nodular opacity of the right lung base, likely infectious or inflammatory. Recommend followup radi ographs in 10-14 days after appropriate therapy to evaluate for improvement/resolution. Reviewed, dictated and finalized at location F. RAFT DELIVERY CHECKER IMPRESSION: 1. Nodular opacity of the right lung base, likely infectious or inflammatory. R ecommend followup radiographs in 10-14 days after appropriate therapy to evalua te for improvement/resolution.
--- NOTE | ~2022-03-01 | CT_ITS ---
Clinical Indication: Pulmonary embolus, atrial fibrillation, abnormal chest x-ray CT Scan of the Chest with Contrast: Technique: Contiguous sections were acquired throughout the chest after intravenous administration of 100 cc of Omnipaque 350. Coronal maximum intensity projection 3-D reconstructions were created by liane dimas technologist. Dose reduction technique was used on this scan by utilizing automated exposure contr ol and iterative reconstruction technique. The dose-length product (DLP) was 372.83 mGy-cm. COMPARISON: 11/23/2014 Findings: There is no evidence of any significant mediastinal, hilar or axillary lymphadenopathy. There is subt le heterogeneous opacification of the right and left main pulmonary arteries, somewhat unclear whethe r this is mixing artifact versus extensive pulmonary embolus in the right and left main pulmonary art eries.. There is no evidence of aortic dissection or aneurysm. There is no evidence of pleural or pericardial effusion. Stable 4 mm right lower lobe pulmonary nodule (axial image 67). Images through the upper abdomen reveal no abnormalities. Impression: Somewhat equivocal exam. There is questionable pulmonary embolus involving the right and left main pu lmonary arteries versus possible mixing artifact/bolus timing artifact. Correlate with patient's and hematology. VQ scan recommended to further evaluate, as if there is truly pulmonary embolus in the ri ght and left main pulmonary arteries, VQ scan should be markedly abnormal. Stable 4 mm right lower lobe pulmonary nodule. Stability since 2014 is consistent with benignity. Clear lungs. Reviewed, dictated and finalized at location . CIATE CHIEF NURSE Impression: Somewhat equivocal exam. There is questionable pulmonary embolus involving the right and left main pulmonary arteries versus possible mixing artifact/bolus ti liz artifact. Correlate with patient's and hematology. VQ scan recommended to further evaluate, as if there is truly pulmonary embolus in the right and left main pulmonary arteries, VQ scan should be markedly abnormal. Stable 4 mm right lower lobe pulmonary nodule. Stability since 2014 is consiste nt with benignity. Clear lungs.
--- NOTE | 2022-03-01 21:52 | ECG_ITS ---
Measurements Intervals [place] Rate: 84 P: VT: 0 QRS: -14 QRSD: 89 T: 27 QT: 391 QTc: 463 Interpretive Statements ATRIAL FIBRILLATION MINIMAL VOLTAGE CRITERIA FOR LVH, CONSIDER NORMAL VARIANT [MEETS CRITERIA IN ONE OF: R(aVL), S(V1), R(V5), R(V5/V6)+S(V1)] ABNORMAL RHYTHM ECG NO PREVIOUS ECG AVAILABLE FOR COMPARISON Electronically Signed On 03-02-2022 7:15:36 [employer] by Isidro Conde M.D.
[2022-03-01 21:59] LABS: Basophils Absolute Auto 0.1 K/mm3 (0.0-0.1); Basophils Percent Auto 0.7 % (0.2-1.2); Eosinophils Absolute Auto 0.2 K/mm3 (0-0.3); Eosinophils Percent Auto 2.2 % (0-4.4); Hematocrit 39.7 % (37.0-47.0); Hemoglobin 12.4 g/dL (12.0-15.0); Immature Granulocyte Absolute 0.01 K/mm3 (0.00-0.031); Immature Granulocyte Percent A 0.1 % (0-0.5); Lymphocytes Absolute Auto 2.61 K/mm3 (0.9-3.2); Lymphocytes Percent Auto 39.1 % (18.3-44.2); Mean Corpuscular HGB Conc 31.2 g/dl (32-36); Mean Corpuscular Hemoglobin 29.8 pg (26-34); Mean Corpuscular Volume 95.4 fl (80-100); Mean Platelet Volume 10.9 fl (7.4-10.4); Monocytes Absolute Auto 0.7 K/mm3 (0.1-0.6); Monocytes Percent Auto 10.8 % (2.6-8.5); Neutrophils Absolute Auto 3.1 K/mm3 (1.3-6.7); Neutrophils Percent Auto 47.1 % (45.5-73.1); Platelet Count Result 192 k/mm3 (150-375); Red Blood Count 4.16 M/mm3 (4.2-5.4); Red Cell Distribution Width 12.6 % (11.5-14.5); White Blood Count 6.7 K/mm3 (4.5-10.0)
--- NOTE | 2022-03-01 22:02 | PC.NURSE ---
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 She is in afib with RVR on engine monitor. Pt denies history of afib. She rates her pain 5/10 and described as pressure. Skin is warm and dry. Respiratory rate regular and non-labored. She c/o nausea but denies vomiting. States she took one baby aspirin approx 45 minutes ago.
[2022-03-01] MEDS: dilTIAZem HCl INJ 25 MG/5 ML VIAL 10 MG IV PUSH ×2 (22:06→23:06)
[2022-03-01 22:09] LABS: Alanine Aminotransferase 42 U/L (6-35); Albumin Level 3.9 g/dL (3.5-5.1); Alkaline Phosphatase 137 U/L (38-126); Anion Gap 6 mmol/L (8-16); Aspartate Amino Transferase 59 U/L (14-36); Bilirubin,Total 0.4 mg/dL (0.2-1.3); Blood Urea Nitrogen 40 mg/dL (7-17); Calcium 9.2 mg/dL (8.4-10.2); Carbon Dioxide 30 mmol/L (22-30); Chloride 106 mmol/L (98-107); Estimated CRCL calculation 43 ml/min; Estimated Glomerular Filt Rate > 60; Glucose 120 mg/dL (65-110); Lipase 148 U/L (23-300); Potassium 3.6 mmol/L (3.4-5.0); Sodium 142 mmol/L (137-145)
[2022-03-01 22:10] LABS: INR 1.1; Partial Thromboplastin Time 31.4 SECONDS (22.3-36.8); Prothrombin Time 13.6 Seconds (11.1-14.7)
[2022-03-01] MEDS: dilTIAZem 100 MG/100 ML 100 MG/100 ML BAG IV CONT (22:11)
[2022-03-01 22:20] LABS: Troponin I < 0.012 ng/mL (0.000-0.034)
--- NOTE | 2022-03-01 22:34 | ED.CHESTPAIN ---
HPI - Chest Pain General Chief Complaint: Chest Pain Stated Complaint: chest pain, lt arm pain Time Seen by Provider: 03/01/22 22:00 Source: patient and family Mode of arrival: ambulatory Limitations: no limitations History of Present Illness HPI narrative: 81 years old white female was sitting watching TV, suddenly developed retrosternal pressure type pain, 7 out of 10, on arrival to the emergency room EKG showed A. fib with RVR. Patient denied history of atrial fibrillation, does not take any medications at home, will need vitamins. Currently she denies any lightheadedness shortness of breath, or radiation of pain. Patient is not vaccinated for COVID or for the flu. Patient had COVID twice last 1 was 6 months ago. Patient lives alone, does not smoke or drink or uses. Patient noticed that she have more coughing than usual and postnasal discharge today Related Data Home Medications Medication Instructions Recorded Confirmed vitamins A,C,H-mpss-iwcfrn 14,320 1 cap PO BID 10/15/19 11/29/21 unit-226 mg-200 unit capsule (PreserVision AREDS) Allergies Allergy/AdvReac Type Severity Reaction Status Date / Time prednisone Allergy Unknown Unknown Verified 03/01/22 21:33 amoxicillin [From Augmentin] Allergy Rash Verified 03/01/22 21:33 clavulanic acid Allergy Rash Verified 03/01/22 21:33 [From Augmentin] Review of Systems Review of Systems: All systems reviewed & are unremarkable except as noted in HPI and below PMFSH Past Medical History Medical History BMI 29.0-29.9,adult BMI 30.0-30.9,adult Cataract, right eye COVID-30 March 2021 Hematuria Left knee pain Osteoarthritis of right knee Screen for colon cancer Urinary tract infection, site not specified Surgical History Surgical History History of bladder surgery Family History Family History Father Acute myocardial infarction Heart disease Mother Tobacco abuse Alcohol abuse Cancer Sibling Skin cancer Sibling No problems noted. Grandparent Heart disease Grandparent Heart disease Social History Social History Smoking status: Never smoker Second hand tobacco smoke exposure: Yes Alcohol intake: current Alcohol use details: rare Substance use: never Substance use type: does not use Additional occupation/education comments: [employer] insurance Gender identity (if verbalized by the patient): Female Exam Narrative: General appearance: Well-developed, well-nourished, intermittent coughing Skin: Normal color Head: Normocephalic, nontraumatic Eyes: Clear conjunctiva ENT: Oropharynx normal, ears normal, nose normal Neck: Supple, nontender Chest and respiratory: Airway patent, no respiratory distress, no accessory muscle use Heart: Tachycardia, irregular irregularity Abdomen: Soft, nontender, no organomegaly, quiet bowel sounds Vascular: Normal peripheral pulses, normal capillary refill. 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
[2022-03-01 23:05] LABS: Influenza A QL RT-PCR Negative (Negative); Influenza B QL RT-PCR Negative (Negative); RSV RNA, RT-PCR Negative (Negative); SARS-CoV-2 RNA PCR Negative
--- NOTE | 2022-03-01 23:39 | PM.IMHP ---
H&P: HPI History of Present Illness Date/Time: 03/01/22 23:39 Chief Complaint: Chest pain. Narrative: This is an 81-year-old lady with a past medical history of urinary tract infection, who presented to the emergency department with complaints of chest pain. The patient was in her usual state of health until tonight. She e was sitting watching TV, suddenly developed retrosternal pressure type pain, 7 out of 10, on arrival to the emergency room EKG showed A. fib with RVR.? The pain is described as pressure-like, without radiation rated 7/10. Patient denied history of atrial fibrillation, does not take any medications at home, will need vitamins.? Currently she denies any lightheadedness shortness of breath, or radiation of pain.? Patient is not vaccinated for COVID or for the flu.? Patient had COVID twice; her last episode was 6 months ago.? Patient lives alone, does not smoke or drink or uses.? Patient noticed that she have more coughing than usual and postnasal discharge today. On arrival to the emergency department the patient had the following vital signs: A temperature of 97.1?, pulse rate 143-145, respiratory rate 18, blood pressure 114/80 2-167/120 and saturation 91-92% on room air. EKG shows atrial fibrillation with rapid ventricular response. Her CBC shows a WBC of 6.7, hemoglobin 12.4, hematocrit 39.7 and a platelet count of 192. Her chemistry shows a sodium of 142, potassium 3.6, chloride 106, bicarbonate 30, BUN 40, creatinine 0.8. Blood glucose is 120. LFTs are slightly higher than normal limits. Total bilirubin 0.4. AST 59, ALT 42, alkaline phosphatase 137. Troponin less than 0.012. Total protein 7, albumin 3.9. Lipase 148. TSH is slightly elevated at 5.4. Chest x-ray shows nodular opacities present in the right lung base. No pleural effusion or pneumothorax. The cardiomediastinal silhouette is normal. A viral respiratory panel including influenza a, influenza B, RSV, PXDK-NIEBD-5 2 RNA was negative. Patient was started on aspirin baby tablet, diltiazem 10 mg IV push x2 doses followed by diltiazem infusion Lovenox 70 mg subQ every 12 hours. The patient heart rate improved from 143 to 82. Around 0200, the patient returned to a normal sinus rythm in the mid 60s. Hospital medicine service was consulted for further evaluation and management. Patient is admitted under observation status to the step-down unit. Review of Systems Review of Systems: All systems reviewed & are unremarkable except as noted in HPI and below Constitutional: Constitutional: Reports as per HPI, Denies chills, Denies excessive sweating, Denies fever(s), Denies lethargy and Denies malaise Eyes: Eyes: Reports as per HPI and Denies blurry vision ENT: Reports system reviewed and no additional complaints, except as documented, Denies epistaxis, Denies nasal congestion and Denies nasal trauma Cardiovascular: Cardiovascular: Reports as per HPI, Reports chest pain, Reports chest pain at rest and Reports palpitations Respiratory: Respiratory: Reports as per HPI, Reports no additional respiratory complaints, Denies cough and Denies wheezing Gastrointestinal: Gastrointestinal: Reports as per HPI, Denies diarrhea, Denies nausea and Denies vomiting Genitourinary: Genitourinary: Reports no additional female genitourinary complaints and Reports as per HPI Musculoskeletal: Musculoskeletal: Reports no additional musculoskeletal complaints Integumentary/Breasts: Skin/Breast: Reports system reviewed and no additional complaints, except as docu, Reports as per HPI and Denies rash Neurologic: Reports system reviewed and no additional complaints, except as documented, Denies frequent falls, Denies headache(s) and Denies lack of coordination Psychiatric: Psychiatric: Reports no additional psychiatric complaints and Reports as per HPI Endocrine: Endocrine: Reports no additional endocrine complaints and Reports as per HPI [facility] Past Medical History Medical History (Updated
[2022-03-02] VITALS (59 sets, daily range): BP systolic 57–175; BP diastolic 48–90; PULSE 50–89; RESP 12–23; TEMP 36.8–37.1; O2SAT 88–100; BMI 28.3; BMI 30.7
[2022-03-02] MEDS: ENOXAPARIN 80 MG/0.8 ML SYRINGE 70 MG SUB-Q ×3 (00:06→23:28)
--- NOTE | 2022-03-02 01:31 | ECG_ITS ---
Measurements Intervals [place] Rate: 59 P: -4 WI: 167 QRS: -10 QRSD: 89 T: 1 QT: 477 QTc: 476 Interpretive Statements SINUS BRADYCARDIA PROLONGED QT INTERVAL NONSPECIFIC ST AND T-WAVE ABNORMALITIES ABNORMAL ECG Electronically Signed On 03-02-2022 13:39:40 YARD COORDINATOR by Isidro Conde M.D.
--- NOTE | 2022-03-02 01:47 | PC.NURSE ---
Pt up to bedside commode and back to bed with standby assist.
--- NOTE | 2022-03-02 02:15 | PC.NURSE ---
Pt used her call light to alert this RN that she's feeling funny and really bad . Heart rate noted to be in the low 40's. Cardizem drip stopped at this time. ER MD notified and given verbal order for normal saline wide open. Fluids initiated and pt placed in Trendelenburg.
[2022-03-02] MEDS: SODIUM CHLORIDE 0.9% IV 1,000 ML 999 ML (02:20)
--- NOTE | 2022-03-02 02:22 | PC.NURSE ---
After placing pt in Trendelenburg and starting IV fluids, pt states she feels much better. Heart rate increased to 57bpm. Pt states her chest pain has resolved. She is resting comfortably on ED stretcher.
--- NOTE | 2022-03-02 02:30 | PC.NURSE ---
Asked Dr. Cordon for orders but he instructs this RN to ask hospitalist for orders. Hospitalist was paged multiple times without calling back. Dr. Cordon notified that hospitalist has not called back. Per Dr. Cordon, do not restart [facility].
--- NOTE | 2022-03-02 02:51 | ECG_ITS ---
Measurements Intervals [place] Rate: 148 P: [place]: 0 QRS: -7 QRSD: 93 T: 47 QT: 310 QTc: 488 Interpretive Statements ATRIAL FIBRILLATION WITH RAPID VENTRICULAR RESPONSE LOW QRS VOLTAGE IN PRECORDIAL LEADS [QRS DEFLECTION < 1.0 mV IN CHEST LEADS] MODERATE ST DEPRESSION [0.05+ mV ST DEPRESSION] ABNORMAL ECG Electronically Signed On 03-02-2022 13:38:51 PAVING PLANT OPERATOR by Isidro Conde M.D.
[2022-03-02 03:40] LABS: Troponin I 0.183 ng/mL (0.000-0.034)
[2022-03-02 06:14] LABS: Troponin I 0.214 ng/mL (0.000-0.034)
--- NOTE | 2022-03-02 07:25 | PC.NURSE ---
Nurse report given to Maikol LOPEZ
--- NOTE | 2022-03-02 08:11 | PM.IMPN ---
Progress Note: A&P Assessment and Plan (1) Atrial fibrillation with rapid ventricular response: Code(s): I48.91 - Unspecified atrial fibrillation Status: Acute Assessment and Plan: converted to NSR on cardizem, TSH elevated, T4 and T3 pending, levothyroxine ordered (2) GERD (gastroesophageal reflux disease): Qualifiers: Esophagitis presence: esophagitis presence not specified Qualified Code(s): K21.9 - Gastro-esophageal reflux disease without esophagitis Code(s): K21.9 - Gastro-esophageal reflux disease without esophagitis Status: Acute Assessment and Plan: Pepcid (3) Elevated TSH: Code(s): R79.89 - Other specified abnormal findings of blood chemistry Status: Acute Assessment and Plan: check FT4 and FT3, start levothyroxine 25 mcg Plan DVT prophylaxis with lovenox GI prophylaxis with pepcid Code status full code Subjective Date/time seen: 03/02/22 08:11 Interval history: No overnight events noted. No chest pain or shortness of breath. No nausea, vomiting or diarrhea. No fevers or chills. Patient states she had sudden onset palpitations with a cough and general feeling of malaise. Review of Systems Review of Systems: 12 point review of systems was assessed and was negative except as noted in the HPI Exam Narrative: General: No acute distress, alert and oriented per baseline HEENT: Atraumatic, normocephalic, mucous membranes moist CV: Regular rate and rhythm, S1, S2 Lungs: Clear to auscultation bilaterally, no rales or crackles noted, no wheezes, good air entry Abdomen: Soft, nontender, nondistended Extremities: Normal to inspection Skin: No rashes noted, no lesions or wounds seen Psych: Euthymic, normal affect Objective Data Vital Signs Vital Signs: Vital Signs - 24 hr 03/01/22 21:33 03/01/22 21:46 03/01/22 22:11 Temperature 97.6 F Pulse Rate 138 H 143 H 123 H Respiratory Rate 16 Blood Pressure 127/73 167/120 H Pulse Oximetry 98 Oxygen Delivery Room Air Oxygen Flow Rate 03/01/22 22:27 03/01/22 22:54 03/01/22 23:20 Temperature Pulse Rate 142 H 145 H 82 Respiratory Rate 18 18 Blood Pressure 122/67 128/79 114/82 Pulse Oximetry 96 97 Oxygen Delivery Oxygen Flow Rate 03/01/22 21:49 03/01/22 22:02 03/01/22 22:46 Temperature Pulse Rate 148 H 152 H 121 H Respiratory Rate 18 20 19 Blood Pressure 110/88 140/95 H 128/79 Pulse Oximetry 93 Oxygen Delivery Oxygen Flow Rate 03/01/22 23:01 03/01/22 23:12 03/01/22 23:16 Temperature Pulse Rate 115 H 110 H 92 Respiratory Rate 17 15 20 Blood Pressure 109/88 107/72 114/82 Pulse Oximetry 93 94 92 Oxygen Delivery Oxygen Flow Rate 03/01/22 23:31 03/01/22 23:46 03/02/22 00:27 Temperature Pulse Rate 95 78 89 Respiratory Rate 19 18 18 Blood Pressure 100/64 101/73 111/74 Pulse Oximetry 91 93 92 Oxygen Delivery Oxygen Flow Rate 03/02/22 00:31 03/02/22 00:46 03/02/22 01:01 Temperature Pulse Rate 83 79 73 Respiratory Rate 17 17 15 Blood Pressure 104/66 110/72 121/76 Pulse Oximetry 93 92 92 Oxygen Delivery Oxygen Flow Rate 03/02/22 01:17 03/02/22 01:31 03/02/22 01:46 Temperature Pulse Rate 67 67 71 Respiratory Rate 16 16 15 Blood Pressure 106/65 108/66 119/72 Pulse Oximetry 93 93 97 Oxygen Delivery Oxygen Flow Rate 03/02/22 02:01 03/02/22 02:12 03/02/22 02:17 Temperature Pulse Rate 63 56 L 67 Respiratory Rate 15 17 16 Blood Pressure 108/65 57/48 L 86/59 L Pulse Oximetry 92 98 88 L Oxygen Delivery Oxygen Flow Rate 03/02/22 03:07 03/02/22 03:12 03/02/22 03:51 Temperature Pulse Rate 59 L 66 Respiratory Rate 20 22 H Blood Pressure 109/66 113/66 Pulse Oximetry 93 97 99 Oxygen Delivery Nasal Cannula Oxygen Flow Rate 2 03/02/22 05:31 03/02/22 02:18 03/02/22 02:30 Temperature Pulse Rate 63 65 62 Respiratory Rate 14 13 12 Blood Pressure 11
[2022-03-02] MEDS: FAMOTIDINE 20 MG TABLET PO ×2 (08:55→23:16)
[2022-03-02] MEDS: ASPIRIN 81 MG CHEWABLE TABLET PO (08:55)
[2022-03-02] MEDS: LEVOTHYROXINE SODIUM 25 MCG TABLET PO (08:55)
--- NOTE | 2022-03-02 10:02 | ADMGEN ---
This patient, Maria A Patel, was admitted to Virtual Bed IMU-4 (currently in ED-14-B1). Patient/family oriented to hospital policies and general routines including ID bracelet, bed and alarms, visiting hours, pain management, procedures, bathroom and other care routines, personal items, smoking policy, room service/diet, and visiting hours. Information on how to activate the Rapid Response Team has been discussed. Patient/Family are encouraged to report perceived risks to care and to ask questions if they do not understand what they are told or what they should do.
--- NOTE | 2022-03-02 11:00 | PC.NURSE ---
Confirmed atbx with pharmacy ([facility] in [place]) that patient has not yet started. patient to have her family bring her OTC supplements, meds/drops that she does not know the name of. She does not take any other prescription medications besides intermittent antibiotics for recurrent UTIs. Her pharmacy did not have allergies listed but did not want me to remove prednisone or clavulanic acid from allergies but did want me to remove amoxicillin from allergies as she states she takes the frequently without problem.
--- NOTE | 2022-03-02 11:21 | PC.NURSE ---
food tray ordered
--- NOTE | 2022-03-02 12:34 | ECG_ITS ---
Measurements Intervals [place] Rate: 60 P: 62 MD: 153 QRS: 75 QRSD: 86 T: 32 QT: 433 QTc: 433 Interpretive Statements SINUS RHYTHM NORMAL ECG COMPARED TO ECG 03/02/2022 02:54:51 SINUS RHYTHM NOW PRESENT PROLONGED QT INTERVAL NO LONGER PRESENT Electronically Signed On 03-02-2022 13:43:15 STILL OPERATOR HELPER by Isidro Conde M.D.
--- NOTE | 2022-03-02 12:50 | PC.NURSE ---
Cardiology substation supervisor called for Dr. Herr.
--- NOTE | 2022-03-02 12:54 | PC.NURSE ---
PT TO NUCLEAR MED AT THIS TIME.
--- NOTE | 2022-03-02 22:35 | PC.NURSE ---
Pt arrived to 2nd Medical Room 251 at 2135.
[2022-03-02] MEDS: guaiFENesin 12 HR 600 MG TABCR 1200 MG PO (23:16)
[2022-03-03] VITALS (9 sets, daily range): BP systolic 137–168; BP diastolic 61–79; PULSE 68–93; RESP 16–18; TEMP 36.6–37.3; O2SAT 94–96
--- NOTE | 2022-03-03 | ECHO_ITS ---
Patient Info Name: Maria A Patel Age: 81 years : 1940 Gender: Female Ht: 63 in Wt: 177 lbs BSA: 1.92 m2 HR: 81 bpm BP: 168 / 79 mmHg Heart Rhythm: Sinus Rhythm Technical Quality: Good Exam Date: 03/03/2022 10:03 AM Exam Location: [facility] Pulmonary Exam Room: 251 Patient Status: Inpatient Admit Date: 03/01/2022 Staff Ordering Physician: Valarie Herr DO Lace Stripper: Alyssa Sweeney RDCS Attending Provider: Rika Gold MD Referring Physician: Carmenza NDIAYE; Exam Type: CA echo doppler color flow Study Info Indications - afib rvr Complete two-dimensional, color flow and Doppler transthoracic echocardiogram is performed. Summary 1. Complete two-dimensional, color flow and Doppler transthoracic echocardiogram is performed. 2. Mild left ventricular hypertrophy with grade 1 diastolic noncompliance and normal systolic function. 3. Calcified mitral valve. 4. Trivial amount of MR. 5. Mild left atrial enlarged. Left Ventricle Left ventricular chamber dimension is normal. Left ventricular systolic function is normal, estimated at 60-65%. The left ventricular diastolic function is grade I diastolic dysfunction. Right Ventricle Right ventricular chamber dimension is normal. Left Atria Left atrial chamber dimension is mildly enlarged. Right Atria Right atrial chamber dimension is normal. Aortic Valve The aortic valve is normal. Pulmonic Valve The pulmonic valve is normal. Mitral Valve The mitral valve has normal leaflets. There is trace mitral valve regurgitation. The mitral valve annulus is moderately calcified. Tricuspid Valve The tricuspid valve leaflets are normal. Pericardium/Pleural The pericardium appears normal. Aorta The aortic root size at the sinus of Valsalva is normal. Left Ventricular Outflow Tract Name Value Normal LVOT 2D LVOT Diameter 2.0 cm LVOT Doppler LVOT Peak Gradient 4 mmHg LVOT Mean Gradient 3 mmHg LVOT VTI 23 cm LVOT VTI/AV VTI Ratio 0.7 LVOT Stroke Volume 70 ml LVOT CO 15.2 l/min LVOT CI 7.9 l/min/m2 Pulmonic Valve Name Value Normal PV Doppler PV Peak Gradient 3 mmHg Mitral Valve Name Value Normal MV Doppler MV Peak Gradient 10 mmHg MV Mean Gradient 4 mmHg MV Decel Pender 474 cm/s2 MV PHT
[2022-03-03] MEDS: LEVOTHYROXINE SODIUM 25 MCG TABLET PO (05:45)
[2022-03-03 06:13] LABS: Basophils Percent Auto 0.7 % (0.2-1.2); Eosinophils Absolute Auto 0.2 K/mm3 (0-0.3); Hematocrit 36.6 % (37.0-47.0); Hemoglobin 11.4 g/dL (12.0-15.0); Immature Granulocyte Absolute 0.01 K/mm3 (0.00-0.031); Immature Granulocyte Percent A 0.2 % (0-0.5); Lymphocytes Absolute Auto 2.46 K/mm3 (0.9-3.2); Lymphocytes Percent Auto 40.5 % (18.3-44.2); Mean Corpuscular HGB Conc 31.1 g/dl (32-36); Mean Corpuscular Hemoglobin 29.5 pg (26-34); Mean Corpuscular Volume 94.8 fl (80-100); Mean Platelet Volume 11.1 fl (7.4-10.4); Monocytes Absolute Auto 0.6 K/mm3 (0.1-0.6); Monocytes Percent Auto 9.2 % (2.6-8.5); Neutrophils Absolute Auto 2.8 K/mm3 (1.3-6.7); Neutrophils Percent Auto 45.4 % (45.5-73.1); Platelet Count Result 179 k/mm3 (150-375); Red Blood Count 3.86 M/mm3 (4.2-5.4); Red Cell Distribution Width 12.5 % (11.5-14.5); White Blood Count 6.1 K/mm3 (4.5-10.0)
--- NOTE | 2022-03-03 06:16 | PC.NURSE ---
Asked pt about medications she takes at home. Pt states she only takes vitamins/supplements which she brought with her, no prescription meds. Macrobid was recently prescribed prior to hospitalization.
[2022-03-03 06:42] LABS: Alanine Aminotransferase 32 U/L (6-35); Albumin Level 3.6 g/dL (3.5-5.1); Alkaline Phosphatase 106 U/L (38-126); Anion Gap 4 mmol/L (8-16); Aspartate Amino Transferase 38 U/L (14-36); Bilirubin,Total 0.5 mg/dL (0.2-1.3); Blood Urea Nitrogen 25 mg/dL (7-17); Calcium 8.4 mg/dL (8.4-10.2); Carbon Dioxide 30 mmol/L (22-30); Chloride 104 mmol/L (98-107); Estimated CRCL calculation 47 ml/min; Estimated Glomerular Filt Rate > 60; Glucose 93 mg/dL (65-110); Potassium 3.6 mmol/L (3.4-5.0); Sodium 138 mmol/L (137-145)
[2022-03-03] MEDS: ASPIRIN 81 MG CHEWABLE TABLET PO (08:20)
[2022-03-03] MEDS: guaiFENesin 12 HR 600 MG TABCR 1200 MG PO (08:20)
[2022-03-03] MEDS: FAMOTIDINE 20 MG TABLET PO (08:20)
--- NOTE | 2022-03-03 09:36 | PM.IMPN ---
Progress Note: A&P Assessment and Plan (1) Atrial fibrillation with rapid ventricular response: Code(s): I48.91 - Unspecified atrial fibrillation Status: Acute Assessment and Plan: converted to NSR on cardizem, TSH elevated, T4 and T3 pending, levothyroxine ordered follow up echo, cardio consult started on eliquis for CHADsVASc of 4 03/03/22 metoprolol 12.5 mg BID initiated 03/03/22 anticipate d/c after echo and cardio c/s on current meds, f/u outpatient (2) GERD (gastroesophageal reflux disease): Qualifiers: Esophagitis presence: esophagitis presence not specified Qualified Code(s): K21.9 - Gastro-esophageal reflux disease without esophagitis Code(s): K21.9 - Gastro-esophageal reflux disease without esophagitis Status: Acute Assessment and Plan: Pepcid (3) Elevated TSH: Code(s): R79.89 - Other specified abnormal findings of blood chemistry Status: Acute Assessment and Plan: check FT4 and FT3, start levothyroxine 25 mcg (4) Interstitial cystitis (chronic) with hematuria: Code(s): N30.11 - Interstitial cystitis (chronic) with hematuria Status: Acute Assessment and Plan: complete workup for other etiologies to her chronic hematuria and recurrent dysuria has been negative from urology outpatient, will initiate amitriptyline 10 mg QHS for empiric treatment, will need to be escalated up to by 25 mg to goal of 100 mg or symptom improvement/resolution Plan DVT prophylaxis with eliquis GI prophylaxis with pepcid Code status full code Subjective Date/time seen: 03/03/22 09:36 Interval history: No overnight events noted. No chest pain or shortness of breath. No nausea, vomiting or diarrhea. No fevers or chills. Review of Systems Review of Systems: All systems reviewed & are unremarkable except as noted in HPI and below Exam Narrative: General: No acute distress, alert and oriented per baseline HEENT: Atraumatic, normocephalic, mucous membranes moist CV: Regular rate and rhythm, S1, S2 Lungs: Clear to auscultation bilaterally, no rales or crackles noted, no wheezes, good air entry Abdomen: Soft, nontender, nondistended Extremities: Normal to inspection Skin: No rashes noted, no lesions or wounds seen Psych: Euthymic, normal affect Objective Data Vital Signs Vital Signs: Vital Signs - 24 hr 03/02/22 10:05 03/02/22 11:14 03/02/22 12:30 Temperature Pulse Rate 78 68 68 Respiratory Rate 16 19 20 Blood Pressure 112/88 117/62 157/90 H Pulse Oximetry 98 100 97 Oxygen Delivery 03/02/22 15:30 03/02/22 16:30 03/02/22 17:30 Temperature Pulse Rate 77 81 66 Respiratory Rate 17 15 15 Blood Pressure 158/89 H 175/89 H 173/79 H Pulse Oximetry 98 97 95 Oxygen Delivery 03/02/22 22:06 03/02/22 22:48 03/02/22 23:45 Temperature 98.2 F 98.7 F Pulse Rate 79 80 Respiratory Rate 18 18 Blood Pressure 169/70 H 163/73 H Pulse Oximetry 94 96 Oxygen Delivery Room Air 03/02/22 22:23 03/03/22 00:00 03/03/22 02:52 Temperature 97.8 F Pulse Rate 80 68 80 Respiratory Rate 18 Blood Pressure 168/79 H Pulse Oximetry 95 Oxygen Delivery 03/03/22 04:00 Temperature Pulse Rate 71 Respiratory Rate Blood Pressure Pulse Oximetry Oxygen Delivery Intake/Output Intake/Output: Intake & Output 02/28/22 03/01/22 03/02/22 03/03/22 23:59 23:59 23:59 23:59 Intake Total 1000 240 Output Total 800 Balance 1000 -560 Meds/Results Medications: Active Medications Generic Name Dose Route Start Last Admin Trade Name Freq PRN Reason Stop Dose Admin Acetaminophen 650 mg 03/01/22 23:18 Acetaminophen 325 Mg Tablet PO Q4H PRN Mild Pain (1-3) or Fever Amitriptyline HCl 10 mg 03/03/22 21:00 Amitriptyline Hcl 10 Mg Tablet PO HS HUSSEIN Apixaban 10 mg 03/03/22 10:00 Apixaban 5 Mg Tablet PO Q12HR HUSSEIN Aspirin 81 mg 03/02/22 08:00 03/03/22 08:20
[2022-03-03] MEDS: METOPROLOL TARTRATE 12.5 MG TABLET PO (10:39)
[2022-03-03] MEDS: APIXABAN 5 MG TABLET 10 MG PO (10:39)
--- NOTE | 2022-03-03 14:49 | PM.CNCAR ---
Assessment and Plan Assessment and plan (1) Atrial fibrillation with rapid ventricular response: Code(s): I48.91 - Unspecified atrial fibrillation Status: Acute Plan this is an 81-year-old lady who came in with the episode of symptomatic atrial fib with RVR the night before last. Since being admitted to the hospital she has not had any recurrent arrhythmias and seems to be stable and free of complaints. I would agree with the strategy of adding a beta-lashell to her regimen as well as systemic anticoagulation with apixaban. I will reduce the dosage to 5 mg twice daily adjust her metoprolol to Toprol XL 25 mg daily. From my perspective she is stable enough to be discharged for outpatient follow-up. I will be review her echocardiogram later in the day when I am finished making rounds. I will also arrange for outpatient office follow-up. Thank you for this consultation. Siddharth Jennings MD [facility] History of Present Illness History of Present Illness Consult date/time: 03/03/22 14:49 Consult reason: atrial fibrillation Reason For Visit: New Onset A fib with RVR Narrative: this is a pleasant 81-year-old lady I am seeing this afternoon at the request of the hospitalist service because of atrial fibrillation. She is not known to me prior to this consultation. Patient is a pleasant lady who states she lives alone in her own home and suddenly on night of the she noticed the sense of some tachycardia in the sense of pressure in the center of her chest. She contacted her family she initially tried to relax for a while the symptoms did not subside and so she was brought to the emergency room for evaluation. In the emergency room upon arrival she was in atrial fibrillation with a rapid ventricular response otherwise hemodynamically not unstable. She was placed on some IV diltiazem and during the course of that evaluation she converted back to sinus rhythm. There was some concern about pulmonary embolism a CT of the chest was done with PE protocol which was probably negative but did include some artifact and according to the radiologist a V/Q scan was done which was negative. The patient was admitted to the floor for further observation and management. Was consulted to see her today and she seems to be doing so well she is in sinus rhythm on telemetry and has not had any recurrence of her arrhythmia. Echocardiogram was done earlier today which I have not yet had the opportunity to review. Low-dose of metoprolol has been ordered as well as a high dose of apixaban at a 10 mg twice daily. She seems to be offering no other complaints at this time and generally feels well. She does not carry the diagnosis of hypertension diabetes or any dyslipidemia. She says she here principal medical problem is that of frequent urinary tract infections. No history of exertional symptomatology such as chest pain dyspnea orthopnea PND or accumulating edema. 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 Review of Systems Constitutional: Constitutional: Reports no additional constitutional complaints Eyes: Eyes: Reports no additional eye complaints ENT: Reports system reviewed and no additional complaints, except as documented Cardiovascular: Cardiovascular: Reports as per HPI Respiratory: Respiratory: Reports no additional respiratory complaints Gastrointestinal: Gastrointestinal: Reports no additional gastrointestinal complaints Musculoskeletal: Musculoskeletal: Reports no additional musculoskeletal complaints Integumentary/Breasts: Skin/Breast: Reports system reviewed and no additional complaints, except as docu Neurologic: Reports system reviewed and no additional complaints, except as documented Endocrine: Endocrine: Reports no additional endocrine complaints Hematologic/Lymphatic: Hematologic/Lymphatic: Reports no additional hematologic/lymphatic complaints Allergic/Immunologic: Allergic/Immunologic: Reports no additional allergic/immunologic
--- NOTE | 2022-03-03 15:04 | PM.DS ---
DS: Admitting Diagnosis Discharge Date 03/03/22 Admitting Diagnosis Chest pain DS: Discharge Diagnosis Discharge Diagnosis (1) Atrial fibrillation with rapid ventricular response: Code(s): I48.91 - Unspecified atrial fibrillation Status: Acute Assessment and Plan: converted to NSR on cardizem, TSH elevated, T4 and T3 pending, levothyroxine ordered follow up echo, cardio consult started on eliquis for CHADsVASc of 4 03/03/22 metoprolol 12.5 mg BID initiated 03/03/22 anticipate d/c after echo and cardio c/s on current meds, f/u outpatient (2) GERD (gastroesophageal reflux disease): Qualifiers: Esophagitis presence: esophagitis presence not specified Qualified Code(s): K21.9 - Gastro-esophageal reflux disease without esophagitis Code(s): K21.9 - Gastro-esophageal reflux disease without esophagitis Status: Acute Assessment and Plan: Pepcid (3) Elevated TSH: Code(s): R79.89 - Other specified abnormal findings of blood chemistry Status: Acute Assessment and Plan: check FT4 and FT3, start levothyroxine 25 mcg (4) Interstitial cystitis (chronic) with hematuria: Code(s): N30.11 - Interstitial cystitis (chronic) with hematuria Status: Acute Assessment and Plan: complete workup for other etiologies to her chronic hematuria and recurrent dysuria has been negative from urology outpatient, will initiate amitriptyline 10 mg QHS for empiric treatment, will need to be escalated up to by 25 mg to goal of 100 mg or symptom improvement/resolution Plan DVT prophylaxis with eliquis GI prophylaxis with pepcid Code status full code DS: Summary Hospital Course Hospital Course: 81-year-old female with past medical history for recurrent UTI is presenting with chest pain. She was found to have AFib with RVR. Cardiology was consulted, TSH was found to be elevated and levothyroxine was started. She will need outpatient management of her newly started levothyroxine with follow-up of TSH in 4-6 weeks. She converted to normal sinus rhythm on Cardizem. Echo was performed and found to have an EF of 60-65% with grade 1 diastolic dysfunction. Some mitral valve disease noted, no pulmonary hypertension seen. Cardiology recommended Eliquis 5 mg twice daily and increase her metoprolol succinate to 25 mg daily. She was also started on amitriptyline for possible interstitial cystitis as her recurrent UTIs are not associated with bacteria. She was discharged in good condition with close outpatient follow-up by Urology, Cardiology and family Medicine. See above and [facility] rec for details. Time Spent with Patient Time attestation: Total time spent providing and/or coordinating discharge services: Exam Narrative: General: No acute distress, alert and oriented per baseline HEENT: Atraumatic, normocephalic, mucous membranes moist CV: Regular rate and rhythm, S1, S2 Lungs: Clear to auscultation bilaterally, no rales or crackles noted, no wheezes, good air entry Abdomen: Soft, nontender, nondistended Extremities: Normal to inspection Skin: No rashes noted, no lesions or wounds seen Psych: Euthymic, normal affect DS: Data Data Completed and Pending Labs on day of discharge: Labs from last 24 hours 03/03/22 03/03/22 05:53 05:53 WBC 6.1 RBC 3.86 L Hgb 11.4 L Hct 36.6 L MCV 94.8 MCH 29.5 MCHC 31.1 L RDW 12.5 Plt Count 179 MPV 11.1 H Immature Gran % (Auto) 0.2 Neut % (Auto) 45.4 L Lymph % (Auto) 40.5 Deuel % (Auto) 9.2 H Eos % (Auto) 4.0 Baso % (Auto) 0.7 Lymph # (Auto) 2.46 Deuel # (Auto) 0.6 Eos # (Auto) 0.2 Baso # (Auto) 0.0 Abs Immat Gran (auto) 0.01 Absolute Neuts (auto) 2.8 Absolute Nucleated RBC 0.0 Nucleated RBC % 0.0 Sodium 138 Potassium 3.6 Chloride 104 Carbon Dioxide 30 Anion Gap 4 L BUN 25 H D Creatinine 0.80 Estim Creat Clear Calc 47 Estimated GFR > 60 Glucose 93
== END 2022-03-03 17:45 | disposition home or self-care (01) ==
LOC: ANHED 23:16 → ANH2MED 03-03 15:04 → ANHIMU 03-07 10:43
PROVIDERS: Emergency Medicine; Admitting Provider Internal Medicine; Emergency Provider Emergency Medicine; PCP Family Medicine; Visit Provider Student in an Organized Health Care Education/Training Program
DX: R07.9 Chest pain, unspecified (principal); I48.91 Unspecified atrial fibrillation; K21.9 Gastro-esophageal reflux disease without esophagitis; R79.89 Other specified abnormal findings of blood chemistry; N30.11 Interstitial cystitis (chronic) with hematuria; Z28.310 Unvaccinated for COVID-19; R05.9 Cough, unspecified; R94.6 Abnormal results of thyroid function studies; R09.82 Postnasal drip; R91.1 Solitary pulmonary nodule; Z20.822 Contact with and (suspected) exposure to COVID-19; I34.81 Nonrheumatic mitral (valve) annulus calcification; I51.89 Other ill-defined heart diseases; M17.11 Unilateral primary osteoarthritis, right knee; R94.31 Abnormal electrocardiogram [ECG] [EKG]; R91.8 Other nonspecific abnormal finding of lung field; Z86.16 Personal history of COVID-19; Z79.899 Other long term (current) drug therapy; Z82.49 Family history of ischemic heart disease and other diseases of the circulatory system; Z87.440 Personal history of urinary (tract) infections
CPT/HCPCS: 36415; 71045; 71275; 78580; 80053; 83690; 84443; 84484; 85025; 85610; 85730; 87502; 87634; 93005; 93306; 96365; 96372; 99285; A9270; A9540; G0378; J1650; J2405; J7030; Q9967; U0003; U0005

== ENCOUNTER 2022-03-04 11:17 | Emergency (ER) | payer MEDICARE, SELFPAY ==
[2022-03-04 11:53] VITALS: BP 160/78; PULSE 84; RESP 16; TEMP 36.8; O2SAT 98
--- NOTE | 2022-03-04 11:59 | ECG_ITS ---
Measurements Intervals [place] Rate: 80 P: 9 MS: 153 QRS: 0 QRSD: 90 T: 38 QT: 395 QTc: 458 Interpretive Statements SINUS RHYTHM NORMAL ECG COMPARED TO ECG 03/02/2022 12:38:59 NO SIGNIFICANT CHANGES Electronically Signed On 03-04-2022 13:42:20 MAP PLOTTER by Billy Becerra M.D.
[2022-03-04 12:32] LABS: Appearance Urine Cloudy (Clear); Bilirubin Urine Negative (Negative); Blood Urine 3+ (Negative); Glucose Urine UA Negative (Negative); Ketones Urine Trace mg/dL (Negative); Leukocyte Esterase Ur 1+ LEU/UL (Negative); Nitrate Urine Positive (Negative); Protein Urine 2+ mg/dL (Negative)
[2022-03-04 12:56] LABS: RBC Urine >75 /hpf (0-2)
[2022-03-04 12:59] LABS: Add Urine Microscopic? YES; Color Urine Dark Red (Yellow)
[2022-03-04 15:30] VITALS: BP 189/102; PULSE 78; RESP 16; O2SAT 98
--- NOTE | 2022-03-04 17:50 | ED.FEMALEGU ---
HPI - Female Genitourinary General Chief complaint: Urogenital-Female Stated complaint: hematuria (started Eliquis yesterday) Time Seen by Provider: 03/04/22 17:38 History of Present Illness HPI Narrative: Patient is an 81-year-old female here for evaluation of hematuria today. Patient states that she had 3 distinct episodes of urinating red urine and other times with small blood clots. No dysuria, urgency, fevers, abdominal pain or frequency. She started Eliquis yesterday after being hospitalized for new onset A. fib RVR. She has seen urology for frequent UTIs and hematuria, has had multiple cystoscopies that have been reassuring. Per chart review recent cultures have been negative. She was told that she may have interstitial cystitis. Related Data Home Medications Medication Instructions Recorded Confirmed vitamins A,C,X-fwjb-yhetsk 14,320 1 cap PO BID 10/15/19 03/03/22 unit-226 mg-200 unit capsule (PreserVision AREDS) Allergies Allergy/AdvReac Type Severity Reaction Status Date / Time prednisone Allergy Unknown Unknown Verified 03/02/22 10:04 clavulanic acid Allergy Rash Verified 03/02/22 10:05 [From Augmentin] Review of Systems Review of Systems: Gen: Denies fevers or chills Eyes: Denies eye pain or visual change ENT: Denies congestion Respiratory: Denies shortness of breath or cough CV: Denies chest pain or palpitations GI: Denies abdominal pain nausea, emesis or diarrhea : Reports hematuria. Denies burning, urgency, frequency Musculoskeletal: Denies back pain or muscle pain Neuro: Denies numbness, tingling, weakness or focal weakness Skin: Denies rash Except as documented, all other systems reviewed and negative [facility] Past Medical History Medical History BMI 29.0-29.9,adult BMI 30.0-30.9,adult Cataract, right eye COVID-30 March 2021 Hematuria Left knee pain Osteoarthritis of right knee Screen for colon cancer Urinary tract infection, site not specified UTI (urinary tract infection) Surgical History Surgical History History of bladder surgery Family History Family History Father Acute myocardial infarction Heart disease Mother Alcohol abuse Tobacco abuse Cancer Sibling Skin cancer Sibling Breast cancer Grandparent Heart disease Grandparent Heart disease Social History Social History Smoking status: Never smoker Second hand tobacco smoke exposure: Yes (mother smoked 2 packs a day) Alcohol intake: never Alcohol use details: rare Substance use: never Substance use type: does not use Lack of Transportation: No Lack of Food: Never True Current Housing: I Have Housing Concerned About Future Housing: No Difficulty Paying Gas/Electric Bills: No Difficulty Paying for Meds: No Currently Unemployed: No Education: High School Diploma/GED Difficulty w/ Childcare or Family Care: No 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 Eyes: EOMI, no icterus Pulm: Respirations even and unlabored, symmetric thorax expansion, no audible stridor or visible cyanosis CV: Regular rate per telemetry GI: No distension, no voluntary/involuntary guarding Neuro: AOx4, moves all extremities without apparent difficulty or weakness, follows commands Skin: No jaundice, no visible bruising, rashes, lesions or wounds on exposed skin Psych: Normal mood/affect, insight/judgement good, adequate fund of knowledge, recent/remote memory intact Course Vital Signs Vital signs: Vital Signs Temperature 98.3 F 03/04/22 11:53 Pulse Rate 84
[2022-03-04 19:10] LABS: Basophils Percent Auto 0.7 % (0.2-1.2); Eosinophils Absolute Auto 0.1 K/mm3 (0-0.3); Eosinophils Percent Auto 2.2 % (0-4.4); Hematocrit 39.2 % (37.0-47.0); Hemoglobin 12.2 g/dL (12.0-15.0); Immature Granulocyte Absolute 0.01 K/mm3 (0.00-0.031); Immature Granulocyte Percent A 0.2 % (0-0.5); Lymphocytes Absolute Auto 1.66 K/mm3 (0.9-3.2); Mean Corpuscular HGB Conc 31.1 g/dl (32-36); Mean Corpuscular Hemoglobin 29.8 pg (26-34); Mean Corpuscular Volume 95.6 fl (80-100); Mean Platelet Volume 10.8 fl (7.4-10.4); Monocytes Absolute Auto 0.5 K/mm3 (0.1-0.6); Monocytes Percent Auto 10.1 % (2.6-8.5); Neutrophils Percent Auto 55.8 % (45.5-73.1); Platelet Count Result 208 k/mm3 (150-375); Red Cell Distribution Width 12.6 % (11.5-14.5); White Blood Count 5.4 K/mm3 (4.5-10.0)
[2022-03-04 19:20] LABS: Alanine Aminotransferase 36 U/L (6-35); Alkaline Phosphatase 111 U/L (38-126); Anion Gap 5 mmol/L (8-16); Aspartate Amino Transferase 43 U/L (14-36); Bilirubin,Total 0.3 mg/dL (0.2-1.3); Blood Urea Nitrogen 24 mg/dL (7-17); Calcium 8.8 mg/dL (8.4-10.2); Carbon Dioxide 29 mmol/L (22-30); Chloride 104 mmol/L (98-107); Estimated CRCL calculation 44 ml/min; Estimated Glomerular Filt Rate > 60; Glucose 123 mg/dL (65-110); INR 1.3; Partial Thromboplastin Time 34.4 SECONDS (22.3-36.8); Potassium 3.4 mmol/L (3.4-5.0); Prothrombin Time 15.5 Seconds (11.1-14.7); Sodium 138 mmol/L (137-145)
[2022-03-04] MEDS: SULFAMETHOXAZOLE/TRIMETHOPRIM 800/160 MG DS TABLET 1 TAB PO (20:44)
== END 2022-03-04 20:45 | disposition home or self-care (01) ==
PROVIDERS: Emergency Medicine; Emergency Provider Physician Assistant; PCP Family Medicine
DX: N30.01 Acute cystitis with hematuria (principal); Z79.01 Long term (current) use of anticoagulants; I48.91 Unspecified atrial fibrillation
CPT/HCPCS: 36415; 80053; 81001; 85025; 85610; 85730; 86850; 86900; 86901; 87086; 87088; 93005; 99283; A9270

== ENCOUNTER → 2022-04-27 09:52 | Outpatient (CLI) | payer MEDICARE, SELFPAY ==
--- NOTE | ~2022-04-27 | MM_ITS ---
EXAMINATION: MM screening brent BI w [facility] HISTORY: Screening mammogram TECHNIQUE: Craniocaudal and mediolateral oblique 3-D tomosynthesis images were obtained and synthetic 2-D images were generated. CAD analysis was submitted and interpreted. COMPARISON: 11/30/2020 bilateral screening mammogram examination BREAST PARENCHYMAL COMPOSITION: There are scattered areas of fibroglandular density. FINDINGS: Scattered bilateral benign calcifications are again noted. There is no evidence of suspicio us mass, calcification, or architectural distortion to suggest malignancy in either breast. There has been no suspicious interval change. IMPRESSION: 1. No mammographic evidence of malignancy. 2. Recommend routine screening mammography in one year. BI-RADS Category 2: Benign finding(s). Reviewed, dictated and finalized at location A. [employer]
== END ==
PROVIDERS: PCP Family Medicine; Visit Provider Family Medicine
DX: Z12.31 Encounter for screening mammogram for malignant neoplasm of breast (principal)
CPT/HCPCS: 77063; 77067

== ENCOUNTER 2022-07-27 13:15 | Outpatient (RCR) | payer MEDICARE, SELFPAY ==
--- NOTE | 2022-06-15 15:41 | PTOPEVAL1 ---
Assessment and note entered by Samia Marshall DPT Evaluation Information Assessment Status Evaluation Subjective Information Pt reports she finished her most recent antibiotics for a UTI 2 morning ago. Has been to multiple doctors in the past few years. States her most recent MD has told her she has vaginal atrophy and has been using a local estrogen and Crisco. Has been taking probiotics. Has not been able to drink very much water during the day and has been getting up to void 6 times a night, less times at night when she drinks less. Reports stinging when urinating. Has had a bladder lift done 5-6 years ago. States she has had at least 30 UTI's in the past few years with cloudy urine, significant pain, difficulty urine. Has had her urine cultured every time, states that there have been many times where they have had to change her antibiotic based on the culture. States 3 times nothing has come back in her urine. Urinating at least 10 times a day, another 3-6 at night. Urine leakage with coughing, very infrequently . Has been only happening recently. Has pain with urination at all times, 6/10 and lowest 0/10. BM 1 -2 times a day and normally not painful, although does have pain when she also has a UTI. Last pelvic exam was not painful 6 months ago. No pain with sex in the past. Pt has been 3 times , 2 deliveries both vaginal, no complications. Reports a significant history of painful menstrual cramps, with throwing up. Hysterectomy, unsure when and unsure if complete or partial. Patient goal: get rid of this problem and get rid of the pain. No return to MD scheduled. Patient reports the pain has greatly affected her quality of life and mental health. Reported Pain Level Pain Score 0: Self Report Assessment PT Clinical Summary The patient is presenting to skilled therapy with a several year history of frequent UTI's and pelvic pain. She presents with impaired pelvic floor muscle tone, pain with palpation, and decreased strength which are contributing to her significant and frequent pain. She will benefit from therapy to address these impairments and reduce pain and dysfunction. Plan of Care Interventions Hot Pack/Cold Pack,Manual Therapy,Neuro Re- education,Patient/Caregiver Education,Therapeutic Activities,Therapeutic Exercise,Self-Care/Home
--- NOTE | 2022-07-06 10:28 | PCPTNOTE ---
Patient called to cancel due to hurting her back.
--- NOTE | 2022-07-13 11:08 | PTOPPROG ---
Assessment and note entered by Samia Marshall DPT Evaluation Information Assessment Status Progress Subjective Information Pt reports her urine is cloudy which bothers me . Has been having a lot of back pain which may be distracting her from any pelvic pain if she is having any. Highest pain with urination 5/10 in the last week, lowest pain 0/10. Is not noticing pain with urination all the time. Assessment PT Clinical Summary The patient has made some progress in therapy. Her pain has not been as intense and she reports decreased pain on exam. She will benefit from continued therapy to further address pelvic pain and ability to initiate urine stream in order to return to prior level of function. Plan of Care Interventions Electrical Stimulation,Hot Pack/Cold Pack,Manual Therapy,Neuro Re-education,Patient/Caregiver Education,Therapeutic Activities,Therapeutic Exercise,Self-Care/Home Management PT Services Indicated Yes Treatment Frequency and 1 time every other week for 3 visits Duration These treatments will address the objective and functional deficits as defined above. The patient will be advanced safely and appropriately in order for the patient to progress towards his/her prior level of function. Additional exercises will be introduced and as well as a comprehensive home exercise program upon discharge, if needed, ?to ensure carryover of functional gains achieved in the clinic. This treatment plan has been reviewed and agreement upon by the patient.
--- NOTE | 2022-08-10 08:05 | PCPTNOTE ---
Patient called to cancel appointment 08/10/22 due to her grandson's graduation.
--- NOTE | 2022-09-07 09:46 | PCPTNOTE ---
Patient called to cancel re-evaluation scheduled this date. Plans to call to r/s in the future.
--- NOTE | 2022-09-14 08:18 | PCPTNOTE ---
Patient has been discharged from therapy. Her last attended appointment was 07/27/22.
== END 2022-09-11 13:48 | disposition home or self-care (01) ==
LOC: ANHPT 13:15
PROVIDERS: PCP Family Medicine; Visit Provider Urology
DX: N39.0 Urinary tract infection, site not specified (principal)
CPT/HCPCS: 97110; 97112; 97140; 97163; 97530

== ENCOUNTER 2022-08-19 16:36 | Emergency (ER) | payer MEDICARE, SELFPAY ==
--- NOTE | ~2022-08-19 | CT_ITS ---
EXAMINATION: CT abdomen pelvis w con INDICATION: Left lower quadrant pain, diarrhea TECHNIQUE: Computed tomographic images of the abdomen and pelvis were obtained after the administrati on of 100 cc of Omnipaque 350 intravenous contrast. The dose-length product (DLP) was 615.23 mGy-cm. Automated exposure control and iterative reconstruction technique were employed. COMPARISON: 11/09/2021 FINDINGS: Minimal dependent atelectasis is present in the lung bases. The heart size is normal. Chron ic nodules of the lower lobes measuring up to 3 mm are stable and consistent with old granulomatous d isease. There is calcified coronary artery atherosclerosis. Hypoattenuating areas of the spleen likel y represent lymphangiomas persists. The liver, pancreas, gallbladder, and adrenal glands are normal. Cysts of the kidneys measure up to 2.5 cm on the left. There are multiple diverticula of the urinary bladder. The appendix is normal. No pathologically enlarged abdominal or pelvic lymph nodes are ident ified. No free intraperitoneal gas or evidence of bowel obstruction. There are multiple diverticula o f the sigmoid colon. There is mild fat stranding near the rectosigmoid junction. There are bilateral inguinal hernias containing fat. There is severe lumbar spondylosis. IMPRESSION: 1. Mild, uncomplicated rectosigmoid diverticulitis. Reviewed, dictated and finalized at location F.
[2022-08-19 16:50] VITALS: BP 153/91; PULSE 80; RESP 18; TEMP 36.9; O2SAT 99
[2022-08-19 18:14] LABS: Appearance Urine Cloudy (Clear); Bacteria Urine None Seen /hpf; Bilirubin Urine Negative (Negative); Blood Urine 3+ (Negative); Color Urine Yellow (Yellow); Glucose Urine UA Negative (Negative); Ketones Urine Negative (Negative); Leukocyte Esterase Ur 2+ LEU/UL (Negative); Nitrate Urine Negative (Negative); Protein Urine Trace mg/dL (Negative); Specific Grav Ur 1.008 (1.001-1.035); Squamous Epithelial Cell Urine Occasional /hpf (Few); Urobilinogen Urine 0.2 mg/dL (<2.0); WBC Urine >100 /hpf; pH Urine 5.5 (5.0-9.0)
[2022-08-19 18:22] LABS: Add Urine Microscopic? YES
[2022-08-19 19:12] LABS: Basophils Percent Auto 0.3 % (0.2-1.2); Eosinophils Absolute Auto 0.1 K/mm3 (0-0.3); Eosinophils Percent Auto 0.4 % (0-4.4); Hemoglobin 13.2 g/dL (12.0-15.0); Immature Granulocyte Absolute 0.05 K/mm3 (0.00-0.031); Immature Granulocyte Percent A 0.4 % (0-0.5); Lymphocytes Absolute Auto 1.72 K/mm3 (0.9-3.2); Lymphocytes Percent Auto 12.5 % (18.3-44.2); Mean Corpuscular HGB Conc 32.2 g/dl (32-36); Mean Corpuscular Hemoglobin 29.5 pg (26-34); Mean Corpuscular Volume 91.5 fl (80-100); Mean Platelet Volume 10.1 fl (7.4-10.4); Monocytes Absolute Auto 1.6 K/mm3 (0.1-0.6); Monocytes Percent Auto 11.2 % (2.6-8.5); Neutrophils Absolute Auto 10.4 K/mm3 (1.3-6.7); Neutrophils Percent Auto 75.2 % (45.5-73.1); Platelet Count Result 211 k/mm3 (150-375); Red Blood Count 4.48 M/mm3 (4.2-5.4); Red Cell Distribution Width 13.8 % (11.5-14.5); White Blood Count 13.8 K/mm3 (4.5-10.0)
--- NOTE | 2022-08-19 19:28 | ED.GENADULT ---
HPI - General Adult General Chief complaint: Nausea/Vomiting/Diarrhea Stated complaint: Diarrhea- concerned for sepsis Time Seen by Provider: 08/19/22 18:17 Source: patient Mode of arrival: ambulatory Limitations: no limitations History of Present Illness HPI narrative: Patient is an 81-year-old female who presents to the ED with urinary symptoms and diarrhea. Patient reports a long history of chronic UTIs over the last 5 years. She has seen several different urologists for this and currently sees an infectious disease specialist in [place]. She was started on cefdinir for a urinary tract infection last week due to having urinary frequency, dysuria. The symptoms improved, however patient began having more frequent bowel movements on Sunday. She noted anytime she had to urinate, she felt the need to have a bowel movement. She had some discomfort with having the bowel movements, but otherwise denied pain when not having a BM. She stopped taking the antibiotics as she thought this was her affecting her bowel movements. Over the last 2 days, patient has developed mucousy diarrhea. She describes the diarrhea as explosive today. Denies any rectal bleeding or melena. She does report some lower abdominal pain and pressure. Denies fevers. Denies hematuria. Related Data Home Medications Medication Instructions Recorded Confirmed vitamins A,C,F-heoa-rjuagw 4,296 1 cap PO BID 10/15/19 03/14/22 mcg-226 mg-90 mg capsule (PreserVision AREDS) Allergies Allergy/AdvReac Type Severity Reaction Status Date / Time prednisone Allergy Unknown Unknown Verified 03/14/22 08:54 clavulanic acid Allergy Rash Verified 03/14/22 08:54 [From Augmentin] Review of Systems Review of Systems: CONSTITUTIONAL: Denies fever, chills, or sweats. CARDIOVASCULAR: Denies chest pain. RESPIRATORY: Denies dyspnea. GASTROINTESTINAL: See HPI. GENITOURINARY: See HPI. SKIN: Denies rash or itching. MUSCULOSKELETAL: Denies back pain, joint pain, or myalgia. All systems reviewed & are unremarkable except as noted in HPI and below PMFSH Past Medical History Medical History BMI 29.0-29.9,adult BMI 30.0-30.9,adult Cataract, right eye COVID-30 March 2021 Hematuria Left knee pain Osteoarthritis of right knee Screen for colon cancer Urinary tract infection, site not specified UTI (urinary tract infection) Surgical History Surgical History History of bladder surgery Family History Family History Father Acute myocardial infarction Heart disease Mother Alcohol abuse Tobacco abuse Cancer Sibling Skin cancer Sibling Breast cancer Grandparent Heart disease Grandparent Heart disease Social History Social History Smoking status: Never smoker Second hand tobacco smoke exposure: Yes (mother smoked 2 packs a day) Alcohol intake: never Alcohol use details: rare Substance use: never Substance use type: does not use Lack of Transportation: No Lack of Food: Never True Current Housing: I Have Housing Concerned About Future Housing: No Difficulty Paying Gas/Electric Bills: No Difficulty Paying for Meds: No Currently Unemployed: No Education: High School Diploma/GED Difficulty w/ Childcare or Family Care: No Living arrangements: alone Occupation/Education: retired 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 HEAD: Normocephalic, atraumatic. NECK: Supple. No adenopathy, no masses. RESPIRATORY: Airway paten
[2022-08-19 19:29] LABS: Alanine Aminotransferase 22 U/L (6-35); Albumin Level 4.2 g/dL (3.5-5.1); Alkaline Phosphatase 131 U/L (38-126); Anion Gap 6 mmol/L (8-16); Aspartate Amino Transferase 34 U/L (14-36); Bilirubin,Total 0.7 mg/dL (0.2-1.3); Blood Urea Nitrogen 21 mg/dL (7-17); Calcium 8.9 mg/dL (8.4-10.2); Carbon Dioxide 27 mmol/L (22-30); Chloride 100 mmol/L (98-107); Estimated Glomerular Filt Rate 60; Glucose 102 mg/dL (65-110); Lipase 88 U/L (23-300); Potassium 3.9 mmol/L (3.4-5.0); Sodium 133 mmol/L (137-145)
[2022-08-19] MEDS: SODIUM CHLORIDE 0.9% IV 1,000 ML 999 ML IV CONT (20:00)
[2022-08-19 20:03] VITALS: BP 132/76; PULSE 87; RESP 15; O2SAT 100
[2022-08-19] MEDS: ONDANSETRON INJ 4 MG/2 ML VIAL IV PUSH (21:28)
[2022-08-19] MEDS: MORPHINE SULFATE (*CRX) 4 MG/ML INJ IV PUSH (21:28)
[2022-08-19] MEDS: metroNIDAZOLE 250 MG TABLET 500 MG PO (22:11)
== END 2022-08-19 22:23 | disposition home or self-care (01) ==
PROVIDERS: Emergency Provider Physician Assistant; PCP Family Medicine
DX: K57.32 Diverticulitis of large intestine without perforation or abscess without bleeding (principal); R19.7 Diarrhea, unspecified; N30.01 Acute cystitis with hematuria
CPT/HCPCS: 36415; 74177; 80053; 81001; 83605; 83690; 85025; 87040; 87077; 87086; 87186; 96361; 96365; 96375; 99284; A9270; J0696; J2270; J2405; J7030; Q9967

== ENCOUNTER 2022-09-21 15:13 | Observation (INO) | payer MEDICARE, SELFPAY ==
--- NOTE | ~2022-09-21 | CT_ITS ---
EXAMINATION: CT abdomen pelvis w con DATE: 09/21/2022 19:37 INDICATION: Suprapubic pain. Left lower quadrant abdominal pain. TECHNIQUE: Computed tomography (CT) of the abdomen and pelvis was performed with 100 mL Omnipaque 350 intravenous contrast. Automated exposure control and iterative reconstruction technique were employe d. The dose-length product was 496.98 mGy-cm. COMPARISON: CT abdomen and pelvis 08/19/2022, 11/09/21, 07/25/17 FINDINGS: The visualized portions of the lung bases demonstrate minimal atelectasis. There is a 3 mm nodule left lower lobe. There is mild bronchiectasis bilaterally. No pleural effusion. The heart size is normal. No pericardial effusion. There is a small sliding hiatal hernia. The liver, gallbladder, are normal. Again seen are multiple hypodense masses in the spleen measuring up to 9 mm, likely granu lomatous disease. The pancreas, adrenal glands, and right kidney are normal. There are cysts in left kidney measuring up to 2.6 cm. There are scattered diverticula in the colon. There is wall thickening involving the ascending colon, descending colon, sigmoid colon, and rectum, consistent with colitis. The appendix is normal. There is a 14 x 13 mm left para-aortic node. The bladder is distended. There are diverticula of the bladder. There is a left inguinal hernia containing fat. There is no free int raperitoneal fluid. There is severe thoracic and lumbar spondylosis. IMPRESSION: 1. Colitis. 2. Small sliding hiatal hernia. 3. Mildly enlarged retroperitoneal lymph node, likely reactive. 4. Left inguinal hernia containing fat. Reviewed, dictated and finalized at location E.
[2022-09-21 15:52] VITALS: BP 136/75; PULSE 90; RESP 16; TEMP 37.2; O2SAT 98
[2022-09-21 16:39] LABS: Basophils Absolute Auto 0.1 K/mm3 (0.0-0.1); Basophils Percent Auto 0.4 % (0.2-1.2); Eosinophils Absolute Auto 0.1 K/mm3 (0-0.3); Eosinophils Percent Auto 0.6 % (0-4.4); Hemoglobin 12.8 g/dL (12.0-15.0); Immature Granulocyte Absolute 0.07 K/mm3 (0.00-0.031); Immature Granulocyte Percent A 0.4 % (0-0.5); Lymphocytes Absolute Auto 1.68 K/mm3 (0.9-3.2); Lymphocytes Percent Auto 10.6 % (18.3-44.2); Mean Corpuscular Hemoglobin 29.5 pg (26-34); Mean Corpuscular Volume 92.2 fl (80-100); Mean Platelet Volume 10.2 fl (7.4-10.4); Monocytes Absolute Auto 1.1 K/mm3 (0.1-0.6); Monocytes Percent Auto 7.1 % (2.6-8.5); Neutrophils Absolute Auto 12.8 K/mm3 (1.3-6.7); Neutrophils Percent Auto 80.9 % (45.5-73.1); Platelet Count Result 274 k/mm3 (150-375); Red Blood Count 4.34 M/mm3 (4.2-5.4); Red Cell Distribution Width 13.8 % (11.5-14.5); White Blood Count 15.9 K/mm3 (4.5-10.0)
[2022-09-21 16:45] LABS: Appearance Urine Cloudy (Clear); Bacteria Urine Rare /hpf; Bilirubin Urine Negative (Negative); Color Urine Yellow (Yellow); Glucose Urine UA Negative (Negative); Ketones Urine Negative (Negative); Leukocyte Esterase Ur 3+ LEU/UL (Negative); Nitrate Urine Negative (Negative); Non Pathogenic Casts 0-2; Protein Urine Negative (Negative); RBC Urine 0-2 /hpf (0-2); Specific Grav Ur 1.008 (1.001-1.035); Squamous Epithelial Cell Urine None seen /hpf (Few); Urobilinogen Urine 0.2 mg/dL (<2.0); WBC Urine >100 /hpf; pH Urine 5.5 (5.0-9.0)
[2022-09-21 16:46] LABS: Alanine Aminotransferase 18 U/L (6-35); Albumin Level 4.1 g/dL (3.5-5.1); Alkaline Phosphatase 98 U/L (38-126); Anion Gap 9 mmol/L (8-16); Aspartate Amino Transferase 28 U/L (14-36); Bilirubin,Total 0.6 mg/dL (0.2-1.3); Blood Urea Nitrogen 19 mg/dL (7-17); Calcium 9.2 mg/dL (8.4-10.2); Carbon Dioxide 27 mmol/L (22-30); Chloride 97 mmol/L (98-107); Estimated CRCL calculation 43 ml/min; Estimated Glomerular Filt Rate > 60; Glucose 105 mg/dL (65-110); Lipase 129 U/L (23-300); Potassium 4.1 mmol/L (3.4-5.0); Sodium 133 mmol/L (137-145)
[2022-09-21 16:58] LABS: Add Urine Microscopic? YES
[2022-09-21 18:56] VITALS: BP 158/76; PULSE 87; RESP 16; TEMP 36.8; O2SAT 99
--- NOTE | 2022-09-21 19:08 | PC.NURSE ---
This RN assumed care of patient.
--- NOTE | 2022-09-21 19:10 | ED.ABDPAIN ---
HPI - Abdominal Pain General Chief Complaint: Abdominal Pain Stated Complaint: abd pain Time Seen by Provider: 09/21/22 18:50 History of Present Illness HPI narrative: Patient is an 81-year-old female presenting with abdominal pain. Patient states that for the last several days she has had suprapubic and left lower quadrant pain especially with defecation. States that this is similar to an episode last month when she had diverticulitis. She denies nausea or vomiting. Denies fevers, chest pain, shortness of breath, cough, flank pain, dysuria, hematuria, leg swelling. Related Data Home Medications Medication Instructions Recorded Confirmed vitamins A,C,S-wakg-clrwlw 4,296 1 cap PO BID 10/15/19 09/22/22 mcg-226 mg-90 mg capsule (PreserVision AREDS) aspirin 81 mg chewable tablet 81 mg PO HS 09/22/22 09/22/22 (Eddie Chewable Low Dose Aspirin) diphenhydramine HCl 50 mg capsule 50 mg PO HS PRN Insomnia 09/22/22 09/22/22 (NightTime Sleep Aid (diphenhydramine)) Allergies Allergy/AdvReac Type Severity Reaction Status Date / Time prednisone Allergy Unknown Unknown Verified 09/25/22 12:01 clavulanic acid Allergy Rash Verified 09/25/22 12:01 [From Augmentin] Review of Systems Review of Systems: All systems reviewed & are unremarkable except as noted in HPI and below PMFSH Past Medical History Medical History BMI 28.0-28.9,adult BMI 29.0-29.9,adult BMI 30.0-30.9,adult Cataract, right eye COVID-30 March 2021 Hematuria Left knee pain Osteoarthritis of right knee Screen for colon cancer Urinary incontinence Urinary tract infection, site not specified UTI (urinary tract infection) Surgical History Surgical History History of bladder surgery Family History Family History Father Acute myocardial infarction Heart disease Mother Alcohol abuse Tobacco abuse Cancer Sibling Skin cancer Sibling Breast cancer Grandparent Heart disease Grandparent Heart disease Social History Social History Smoking status: Never smoker Second hand tobacco smoke exposure: No Alcohol intake: never Alcohol use details: rare Substance use: never Substance use type: does not use Lack of Transportation: No Lack of Food: Never True Current Housing: I Have Housing Concerned About Future Housing: No Difficulty Paying Gas/Electric Bills: No Difficulty Paying for Meds: No Currently Unemployed: No Education: Bachelor's Degree Difficulty w/ Childcare or Family Care: No Living arrangements: alone Occupation/Education: retired Additional occupation/education comments: [employer] insurance Gender identity (if verbalized by the patient): Female Spiritual care concerns: Yes (Rastafarian) Exam Narrative: GENERAL: Well-appearing, well-nourished, and in no acute distress. Pleasant and cooperative HEAD: Normocephalic, atraumatic. EYES: PERRLA and EOMI. ENT: Nares clear, no rhinorrhea or epistaxis. Mucous membranes moist. NECK: Supple. CHEST: Clear to auscultation. No respiratory distress. HEART: Regular rate and rhythm. ABDOMEN: Soft, +suprapubic/LLQ tenderness without guarding or rebound EXTREMITIES: Normal range of motion. No edema. SKIN: Warm, dry, no rash. NEURO: No focal deficits. Alert and oriented x3. PSYCH: Normal mood and affect. Course Vital Signs Vital signs: Vital Signs Temperature 98.9 F 09/21/22 15:52 Pulse Rate 90 09/21/22 15:52 Respiratory Rate 16 09/21/22 15:52 Blood Pressure 136/75 09/21/22 15:52 Pulse Oximetry 98 09/21/22 15:52 Oxygen Delivery Room Air 09/21/22 15:52 Temperature 97.9 F 09/25/22 14:00 Pulse Rate 74 09/25/22 14:00 Respiratory Rate 14
[2022-09-21] MEDS: SODIUM CHLORIDE 0.9% IV 1,000 ML 999 ML IV CONT (19:46)
[2022-09-21] MEDS: MORPHINE SULFATE (*CRX) 4 MG/ML INJ IV PUSH (19:47)
--- NOTE | 2022-09-21 20:57 | PM.IMHP ---
H&P: HPI History of Present Illness Date/Time: 09/21/22 20:57 Chief Complaint: Dysuria Narrative: This is an 81-year-old female with past medical history significant for recurrent urinary tract infection, hypothyroidism, degenerative joint disease. Patient comes to the emergency room due to abdominal pain and discomfort with urination, diarrhea, chills. Patient recently concluded antibiotic course for diverticulitis describes her stools as painful with mucus, denies nausea vomiting has had good appetite. Preliminary workup was not CT abdomen and pelvis was reported as: EXAMINATION: CT abdomen pelvis w con DATE: 09/21/2022 19:37 INDICATION: Suprapubic pain. Left lower quadrant abdominal pain. TECHNIQUE: Computed tomography (CT) of the abdomen and pelvis was performed with 100 mL Omnipaque 350 intravenous contrast. Automated exposure control and iterative reconstruction technique were employed. The dose-length product was 496.98 mGy-cm. COMPARISON: CT abdomen and pelvis 08/19/2022, 11/09/21, 07/25/17 FINDINGS: The visualized portions of the lung bases demonstrate minimal atelectasis. There is a 3 mm nodule left lower lobe. There is mild bronchiectasis bilaterally. No pleural effusion. The heart size is normal. No pericardial effusion. There is a small sliding hiatal hernia. The liver, gallbladder, are normal. Again seen are multiple hypodense masses in the spleen measuring up to 9 mm, likely granulomatous disease. The pancreas, adrenal glands, and right kidney are normal. There are cysts in left kidney measuring up to 2.6 cm. There are scattered diverticula in the colon. There is wall thickening involving the ascending colon, descending colon, sigmoid colon, and rectum, consistent with colitis. The appendix is normal. There is a 14 x 13 mm left para-aortic node. The bladder is distended. There are diverticula of the bladder. There is a left inguinal hernia containing fat. There is no free intraperitoneal fluid. There is severe thoracic and lumbar spondylosis. IMPRESSION: 1. Colitis. 2. Small sliding hiatal hernia. 3. Mildly enlarged retroperitoneal lymph node, likely reactive. 4. Left inguinal hernia containing fat. Review of Systems Review of Systems: Painful stools with mucus, painful urination, chills Constitutional: Constitutional: Reports chills, Denies fatigue, Denies malaise, Denies night sweats, Denies poor appetite and Denies weakness Eyes: Eyes: Denies change in vision ENT: Denies dysphagia, Denies vertigo, Denies dizziness and Denies odynophagia Cardiovascular: Cardiovascular: Denies chest pain, Denies radiating jaw, neck or arm pain and Denies palpitations Respiratory: Respiratory: Denies chest congestion, Denies cough, Denies excessive phlegm production and Denies dyspnea Gastrointestinal: Gastrointestinal: Reports abdominal pain, Denies coffee ground emesis, Reports constipation, Denies dyspepsia, Denies heartburn, Reports loose stools and Denies nausea Genitourinary: Genitourinary: Reports dysuria Musculoskeletal: Musculoskeletal: Denies back pain Integumentary/Breasts: Skin/Breast: Denies rash Neurologic: Denies focal weakness and Denies Sensory deficit (Neuro) Psychiatric: Psychiatric: Reports no additional psychiatric complaints and Reports as per HPI Endocrine: Endocrine: Denies cold intolerance, Denies flushing, Denies heat intolerance, Denies polyphagia, Denies polydipsia and Denies palpitations Hematologic/Lymphatic: Hematologic/Lymphatic: Reports no additional hematologic/lymphatic complaints and Reports as per HPI Allergic/Immunologic: Allergic/Immunologic: Reports no additional allergic/immunologic complaints and Reports as per HPI PMFSH Past Medical History Medical History BMI 28.0-28.9,adult BMI 29.0-29.9,adult BMI 30.0-30.9,adult Cataract, right eye COVID-30 March 2021 Hematuria Left knee pain Osteoarthritis of right knee Screen
[2022-09-21] MEDS: metroNIDAZOLE 500 MG/ISO 100ML 500 MG/100 ML BAG 100 MG IVPB (21:04)
[2022-09-21] MEDS: hydrOXYzine HCL 25 MG TABLET PO (21:09)
[2022-09-21] MEDS: KETOROLAC 15 MG/ML VIAL (*BKC) IV PUSH (21:10)
[2022-09-21 21:30] VITALS: BP 152/86; PULSE 85; RESP 18; O2SAT 100
[2022-09-21 23:50] VITALS: BP 96/56; PULSE 81; RESP 17; TEMP 36.1; O2SAT 96; BMI 28.7
[2022-09-22 04:53] VITALS: BP 111/55; PULSE 75; RESP 17; TEMP 36.1; O2SAT 97
[2022-09-22] MEDS: VANCOMYCIN ORAL 125 MG/2.5 ML SYRUP PO ×3 (06:10→18:10)
[2022-09-22] MEDS: LEVOTHYROXINE SODIUM 25 MCG TABLET PO (06:10)
[2022-09-22 09:29] VITALS: PULSE 75
[2022-09-22] MEDS: METOPROLOL SUCCINATE EXT REL 25 MG TABCR PO (09:29)
[2022-09-22] MEDS: OPTI-GEN TAB 1 TABLET PO ×2 (09:29→16:40)
--- NOTE | 2022-09-22 12:40 | WPDPN ---
Progress Note: A&P Assessment and Plan (1) Recurrent UTI (urinary tract infection): Code(s): N39.0 - Urinary tract infection, site not specified Status: Acute Assessment and Plan: Admit to regular medical floor Patient started on Rocephin Await cultures Supportive care 09/22/2022 interval history: patient is 81 female with history of recurrent UTI and has been recently treated with abx, now presents with C/O dysuria and diarrhea, urine is suspicious of UTI, being treated with ceftriaxone, and CT scn of abdomen is showed colitis and she has been on abx concerning for C diff, will check for C diff and treat patient with Vancomycin 125mg q6 PO, will monitor. (2) Colitis: Code(s): K52.9 - Noninfective gastroenteritis and colitis, unspecified Status: Acute Assessment and Plan: Patient has been started on Flagyl and Rocephin Continue to monitor Will add p.o. vanco for empirically covering for C difficile (3) Urinary incontinence: Code(s): R32 - Unspecified urinary incontinence Status: Acute Assessment and Plan: Unchanged (4) GERD (gastroesophageal reflux disease): Qualifiers: Esophagitis presence: esophagitis presence not specified Qualified Code(s): K21.9 - Gastro-esophageal reflux disease without esophagitis Code(s): K21.9 - Gastro-esophageal reflux disease without esophagitis Status: Acute Assessment and Plan: PPI Subjective Date/time seen: 09/22/22 12:40 Interval history: Dysuria HPI-Narrative: This is an 81-year-old female with past medical history significant for recurrent urinary tract infection, hypothyroidism, degenerative joint disease.? Patient comes to the emergency room due to abdominal pain and discomfort with urination, diarrhea, chills.? Patient recently concluded antibiotic course for diverticulitis describes her stools as painful with mucus, denies nausea vomiting has had good appetite.? Preliminary workup was not CT abdomen and pelvis was reported as: FINDINGS: The visualized portions of the lung bases demonstrate minimal atelectasis. There is a 3 mm nodule left lower lobe. There is mild bronchiectasis bilaterally. No pleural effusion. The heart size is normal. No pericardial effusion. There is a small sliding hiatal hernia. The liver, gallbladder, are normal. Again seen are multiple hypodense masses in the spleen measuring up to 9 mm, likely granulomatous disease. The pancreas, adrenal glands, and right kidney are normal. There are cysts in left kidney measuring up to 2.6 cm. There are scattered diverticula in the colon. There is wall thickening involving the ascending colon, descending colon, sigmoid colon, and rectum, consistent with colitis. The appendix is normal. There is a 14 x 13 mm left para-aortic node. The bladder is distended. There are diverticula of the bladder. There is a left inguinal hernia containing fat. There is no free intraperitoneal fluid. There is severe thoracic and lumbar spondylosis. IMPRESSION: 1. Colitis. 2. Small sliding hiatal hernia. 3. Mildly enlarged retroperitoneal lymph node, likely reactive. 4. Left inguinal hernia containing fat. 09/22/2022 interval history: patient is 81 female with history of recurrent UTI and has been recently treated with abx, now presents with C/O dysuria and diarrhea, urine is suspicious of UTI, being treated with ceftriaxone, and CT scn of abdomen is showed colitis and she has been on abx concerning for C diff, will check for C diff and treat patient with Vancomycin 125mg q6 PO, will monitor. Review of Systems Review of Systems: Painful stools with mucus, painful urination, chills Exam Narrative: Patient is comfortable, NAD HEENT: eyes are clear and none icteric LUNGS: Normal respiratory effort ABD: Distended Lower extremities: no edema SKIN: nonjaundiced Neuro: grossly intact. Const: General: comfortable, no acute distress, well develop
[2022-09-22 14:00] VITALS: BP 138/64; PULSE 85; RESP 18; TEMP 36.6; O2SAT 98
[2022-09-22] MEDS: HYDROcodone/acetaminophen (*CRX) 5-325 MG TABLET 1 TAB PO (16:40)
[2022-09-22] MEDS: ASPIRIN 81 MG CHEWABLE TABLET PO (19:54)
[2022-09-22] MEDS: diphenhydrAMINE HCl CAP 25 MG CAPSULE 50 MG PO (19:54)
[2022-09-22 20:14] VITALS: BP 124/57; PULSE 80; RESP 16; TEMP 36.6; O2SAT 99
[2022-09-23] MEDS: VANCOMYCIN ORAL 125 MG/2.5 ML SYRUP PO ×4 (00:04→17:25)
[2022-09-23 02:48] VITALS: O2SAT 98
[2022-09-23 06:00] VITALS: BP 144/63; PULSE 73; RESP 16; TEMP 36; O2SAT 98
[2022-09-23] MEDS: LEVOTHYROXINE SODIUM 25 MCG TABLET PO (06:08)
[2022-09-23 06:33] LABS: Hematocrit 37.7 % (37.0-47.0); Hemoglobin 12.1 g/dL (12.0-15.0); Mean Corpuscular HGB Conc 32.1 g/dl (32-36); Mean Corpuscular Hemoglobin 29.3 pg (26-34); Mean Corpuscular Volume 91.3 fl (80-100); Mean Platelet Volume 10.6 fl (7.4-10.4); Platelet Count Result 296 k/mm3 (150-375); Red Blood Count 4.13 M/mm3 (4.2-5.4); Red Cell Distribution Width 13.8 % (11.5-14.5); White Blood Count 9.3 K/mm3 (4.5-10.0)
[2022-09-23 06:42] LABS: Anion Gap 7 mmol/L (8-16); Blood Urea Nitrogen 17 mg/dL (7-17); Calcium 8.9 mg/dL (8.4-10.2); Carbon Dioxide 24 mmol/L (22-30); Chloride 104 mmol/L (98-107); Estimated CRCL calculation 45 ml/min; Estimated Glomerular Filt Rate > 60; Glucose 93 mg/dL (65-110); Magnesium 1.8 mg/dL (1.6-2.3); Sodium 135 mmol/L (137-145)
[2022-09-23 08:40] VITALS: O2SAT 97
[2022-09-23 08:41] VITALS: PULSE 76
[2022-09-23] MEDS: OPTI-GEN TAB 1 TABLET PO ×2 (08:41→17:25)
[2022-09-23] MEDS: METOPROLOL SUCCINATE EXT REL 25 MG TABCR PO (08:41)
--- NOTE | 2022-09-23 13:18 | PM.IMPN ---
Progress Note: A&P Assessment and Plan (1) Recurrent UTI (urinary tract infection): Code(s): N39.0 - Urinary tract infection, site not specified Status: Acute Assessment and Plan: Admit to regular medical floor Patient started on Rocephin Await cultures Supportive care 09/22/2022 interval history: patient is 81 female with history of recurrent UTI and has been recently treated with abx, now presents with C/O dysuria and diarrhea, urine is suspicious of UTI, being treated with ceftriaxone, and CT scn of abdomen is showed colitis and she has been on abx concerning for C diff, will check for C diff and treat patient with Vancomycin 125mg q6 PO, will monitor. 09/23/2022: Patient with recurrent UTI hypothyroidism degenerative joint disease present with abdominal pain and urinary symptoms. Patient was recently diagnosed with diverticulitis. CT abdomen pelvis with wall thickening involving the ascending colon descending colon sigmoid colon and rectum consistent with colitis.. Also associated small sliding hiatal hernia and mildly enlarged retroperitoneal lymph node likely reactive. Left inguinal hernia containing fat. Colitis concerning for C diff started on vancomycin. C diff testing pending. Leukocytosis resolved. UA is still positive for UTI. CT 08/19/2022 with uncomplicated rectosigmoid diverticulitis. Urine culture with Enterococcus. Will switch to ampicillin (2) Colitis: Code(s): K52.9 - Noninfective gastroenteritis and colitis, unspecified Status: Acute Assessment and Plan: Patient has been started on Flagyl and Rocephin Continue to monitor Will add p.o. vanco for empirically covering for C difficile (3) Urinary incontinence: Code(s): R32 - Unspecified urinary incontinence Status: Acute Assessment and Plan: Unchanged (4) GERD (gastroesophageal reflux disease): Qualifiers: Esophagitis presence: esophagitis presence not specified Qualified Code(s): K21.9 - Gastro-esophageal reflux disease without esophagitis Code(s): K21.9 - Gastro-esophageal reflux disease without esophagitis Status: Acute Assessment and Plan: PPI Subjective Date/time seen: 09/23/22 13:18 Interval history: Dysuria HPI-Narrative: This is an 81-year-old female with past medical history significant for recurrent urinary tract infection, hypothyroidism, degenerative joint disease.? Patient comes to the emergency room due to abdominal pain and discomfort with urination, diarrhea, chills.? Patient recently concluded antibiotic course for diverticulitis describes her stools as painful with mucus, denies nausea vomiting has had good appetite.? Preliminary workup was not CT abdomen and pelvis was reported as: FINDINGS: The visualized portions of the lung bases demonstrate minimal atelectasis. There is a 3 mm nodule left lower lobe. There is mild bronchiectasis bilaterally. No pleural effusion. The heart size is normal. No pericardial effusion. There is a small sliding hiatal hernia. The liver, gallbladder, are normal. Again seen are multiple hypodense masses in the spleen measuring up to 9 mm, likely granulomatous disease. The pancreas, adrenal glands, and right kidney are normal. There are cysts in left kidney measuring up to 2.6 cm. There are scattered diverticula in the colon. There is wall thickening involving the ascending colon, descending colon, sigmoid colon, and rectum, consistent with colitis. The appendix is normal. There is a 14 x 13 mm left para-aortic node. The bladder is distended. There are diverticula of the bladder. There is a left inguinal hernia containing fat. There is no free intraperitoneal fluid. There is severe thoracic and lumbar spondylosis. IMPRESSION: 1. Colitis. 2. Small sliding hiatal hernia. 3. Mildly enlarged retroperitoneal lymph node, likely reactive. 4. Left inguinal hernia containing fat. 09/22/2022 interval history: patient is 81 female with hi
[2022-09-23] MEDS: HYDROcodone/acetaminophen (*CRX) 5-325 MG TABLET 1 TAB PO (13:26)
[2022-09-23 14:00] VITALS: BP 109/58; PULSE 76; RESP 16; TEMP 36.8; O2SAT 98
[2022-09-23] MEDS: AMPICILLIN 1 GM/NS 50 ML 1 GM/50 ML BAG IVPB ×2 (14:00→20:12)
[2022-09-23] MEDS: ASPIRIN 81 MG CHEWABLE TABLET PO (20:12)
[2022-09-23] MEDS: diphenhydrAMINE HCl CAP 25 MG CAPSULE 50 MG PO (20:12)
[2022-09-23 22:00] VITALS: BP 110/57; PULSE 70; RESP 18; TEMP 36.5; O2SAT 98
[2022-09-24] MEDS: VANCOMYCIN ORAL 125 MG/2.5 ML SYRUP PO ×5 (00:57→23:43)
[2022-09-24 06:00] VITALS: BP 126/71; PULSE 70; RESP 18; TEMP 36.3; O2SAT 97
[2022-09-24] MEDS: LEVOTHYROXINE SODIUM 25 MCG TABLET PO (06:12)
[2022-09-24] MEDS: AMPICILLIN 1 GM/NS 50 ML 1 GM/50 ML BAG IVPB ×3 (06:12→20:32)
[2022-09-24 06:14] LABS: Hematocrit 35.2 % (37.0-47.0); Hemoglobin 11.3 g/dL (12.0-15.0); Mean Corpuscular HGB Conc 32.1 g/dl (32-36); Mean Corpuscular Hemoglobin 29.4 pg (26-34); Mean Corpuscular Volume 91.7 fl (80-100); Platelet Count Result 255 k/mm3 (150-375); Red Blood Count 3.84 M/mm3 (4.2-5.4); Red Cell Distribution Width 13.6 % (11.5-14.5)
[2022-09-24 06:23] LABS: Anion Gap 5 mmol/L (8-16); Blood Urea Nitrogen 14 mg/dL (7-17); Calcium 8.8 mg/dL (8.4-10.2); Carbon Dioxide 29 mmol/L (22-30); Chloride 103 mmol/L (98-107); Estimated CRCL calculation 50 ml/min; Estimated Glomerular Filt Rate > 60; Glucose 93 mg/dL (65-110); Magnesium 1.8 mg/dL (1.6-2.3); Sodium 137 mmol/L (137-145)
[2022-09-24 07:56] VITALS: O2SAT 97
[2022-09-24 09:20] VITALS: PULSE 75; O2SAT 97
[2022-09-24 09:23] VITALS: PULSE 74
[2022-09-24] MEDS: METOPROLOL SUCCINATE EXT REL 25 MG TABCR PO (09:23)
[2022-09-24] MEDS: OPTI-GEN TAB 1 TABLET PO ×2 (09:23→17:16)
--- NOTE | 2022-09-24 11:58 | PM.IMPN ---
Progress Note: A&P Assessment and Plan (1) Recurrent UTI (urinary tract infection): Code(s): N39.0 - Urinary tract infection, site not specified Status: Acute Assessment and Plan: Admit to regular medical floor Patient started on Rocephin Await cultures Supportive care 09/22/2022 interval history: patient is 81 female with history of recurrent UTI and has been recently treated with abx, now presents with C/O dysuria and diarrhea, urine is suspicious of UTI, being treated with ceftriaxone, and CT scn of abdomen is showed colitis and she has been on abx concerning for C diff, will check for C diff and treat patient with Vancomycin 125mg q6 PO, will monitor. 09/23/2022: Patient with recurrent UTI hypothyroidism degenerative joint disease present with abdominal pain and urinary symptoms. Patient was recently diagnosed with diverticulitis. CT abdomen pelvis with wall thickening involving the ascending colon descending colon sigmoid colon and rectum consistent with colitis.. Also associated small sliding hiatal hernia and mildly enlarged retroperitoneal lymph node likely reactive. Left inguinal hernia containing fat. Colitis concerning for C diff started on vancomycin. C diff testing pending. Leukocytosis resolved. UA is still positive for UTI. CT 08/19/2022 with uncomplicated rectosigmoid diverticulitis. Urine culture with Enterococcus. Will switch to ampicillin 09/24/2022: Patient with recurrent UTI hypothyroidism degenerative joint disease present with abdominal pain and urinary symptoms. Patient was recently diagnosed with diverticulitis. CT abdomen pelvis with wall thickening involving the ascending colon descending colon sigmoid colon and rectum consistent with colitis.. Also associated small sliding hiatal hernia and mildly enlarged retroperitoneal lymph node likely reactive. Left inguinal hernia containing fat. Colitis concerning for C diff started on vancomycin. C diff testing pending. Leukocytosis resolved. UA is still positive for UTI. Urine culture grew Enterococcus. Antibiotics switched to IV ampicillin. CT 08/19/2022 with uncomplicated rectosigmoid diverticulitis. Diarrhea and abdominal discomfort has improved. Labs reviewed. (2) Colitis: Code(s): K52.9 - Noninfective gastroenteritis and colitis, unspecified Status: Acute Assessment and Plan: Patient has been started on Flagyl and Rocephin Continue to monitor Will add p.o. vanco for empirically covering for C difficile (3) Urinary incontinence: Code(s): R32 - Unspecified urinary incontinence Status: Acute Assessment and Plan: Unchanged (4) GERD (gastroesophageal reflux disease): Qualifiers: Esophagitis presence: esophagitis presence not specified Qualified Code(s): K21.9 - Gastro-esophageal reflux disease without esophagitis Code(s): K21.9 - Gastro-esophageal reflux disease without esophagitis Status: Acute Assessment and Plan: PPI Subjective Date/time seen: 09/24/22 11:58 Interval history: Dysuria HPI-Narrative: This is an 81-year-old female with past medical history significant for recurrent urinary tract infection, hypothyroidism, degenerative joint disease.? Patient comes to the emergency room due to abdominal pain and discomfort with urination, diarrhea, chills.? Patient recently concluded antibiotic course for diverticulitis describes her stools as painful with mucus, denies nausea vomiting has had good appetite.? Preliminary workup was not CT abdomen and pelvis was reported as: FINDINGS: The visualized portions of the lung bases demonstrate minimal atelectasis. There is a 3 mm nodule left lower lobe. There is mild bronchiectasis bilaterally. No pleural effusion. The heart size is normal. No pericardial effusion. There is a small sliding hiatal hernia. The liver, gallbladder, are normal. Again seen are multiple hypodense masses in the spleen measuring up to 9 mm, lik
[2022-09-24 12:43] LABS: Toxigenic C. Diff POSITIVE (NEGATIVE)
[2022-09-24 14:00] VITALS: BP 117/59; PULSE 75; RESP 16; TEMP 37.2; O2SAT 98
[2022-09-24 20:18] VITALS: BP 132/67; PULSE 76; RESP 18; TEMP 36.6; O2SAT 96
[2022-09-24] MEDS: ASPIRIN 81 MG CHEWABLE TABLET PO (20:32)
[2022-09-25] MEDS: AMPICILLIN 1 GM/NS 50 ML 1 GM/50 ML BAG IVPB (05:39)
[2022-09-25] MEDS: VANCOMYCIN ORAL 125 MG/2.5 ML SYRUP PO ×2 (05:40→12:24)
[2022-09-25] MEDS: LEVOTHYROXINE SODIUM 25 MCG TABLET PO (05:40)
[2022-09-25 05:57] VITALS: BP 133/75; PULSE 69; RESP 20; TEMP 36.6; O2SAT 98
[2022-09-25 06:02] LABS: Hematocrit 34.7 % (37.0-47.0); Hemoglobin 11.2 g/dL (12.0-15.0); Mean Corpuscular HGB Conc 32.3 g/dl (32-36); Mean Corpuscular Hemoglobin 29.7 pg (26-34); Mean Platelet Volume 10.3 fl (7.4-10.4); Platelet Count Result 261 k/mm3 (150-375); Red Blood Count 3.77 M/mm3 (4.2-5.4); Red Cell Distribution Width 13.6 % (11.5-14.5); White Blood Count 4.2 K/mm3 (4.5-10.0)
[2022-09-25 06:13] LABS: Anion Gap 5 mmol/L (8-16); Blood Urea Nitrogen 13 mg/dL (7-17); Calcium 8.7 mg/dL (8.4-10.2); Carbon Dioxide 28 mmol/L (22-30); Chloride 104 mmol/L (98-107); Estimated CRCL calculation 50 ml/min; Estimated Glomerular Filt Rate > 60; Glucose 90 mg/dL (65-110); Magnesium 1.8 mg/dL (1.6-2.3); Potassium 3.7 mmol/L (3.4-5.0); Sodium 137 mmol/L (137-145)
[2022-09-25 08:49] VITALS: PULSE 77
[2022-09-25] MEDS: METOPROLOL SUCCINATE EXT REL 25 MG TABCR PO (08:49)
[2022-09-25] MEDS: OPTI-GEN TAB 1 TABLET PO (08:49)
--- NOTE | 2022-09-25 12:30 | PM.DS ---
DS: Admitting Diagnosis Discharge Date 09/25/2022 Admitting Diagnosis Abdominal pain DS: Discharge Diagnosis Discharge Diagnosis (1) Recurrent UTI (urinary tract infection): Code(s): N39.0 - Urinary tract infection, site not specified Status: Acute (2) Colitis: Code(s): K52.9 - Noninfective gastroenteritis and colitis, unspecified Status: Acute (3) Urinary incontinence: Code(s): R32 - Unspecified urinary incontinence Status: Acute (4) GERD (gastroesophageal reflux disease): Qualifiers: Esophagitis presence: esophagitis presence not specified Qualified Code(s): K21.9 - Gastro-esophageal reflux disease without esophagitis Code(s): K21.9 - Gastro-esophageal reflux disease without esophagitis Status: Acute DS: Summary Hospital Course Hospital Course: Patient with recurrent UTI hypothyroidism degenerative joint disease present with abdominal pain and urinary symptoms.? Patient was recently diagnosed with diverticulitis.? CT abdomen pelvis with wall thickening involving the ascending colon descending colon sigmoid colon and rectum consistent with colitis..? Also associated small sliding hiatal hernia and mildly enlarged retroperitoneal lymph node likely reactive.? Left inguinal hernia containing fat.? Colitis concerning for C diff started on vancomycin.? C diff testing did come back positive. Diarrhea improving with start of. Will sinus 10 days course. Her leukocytosis resolved.? UA is still positive for UTI.? Urine culture grew Enterococcus.? Antibiotics switched to IV ampicillin. This will be switched to amoxicillin to complete [address] 08/19/2022 with uncomplicated rectosigmoid diverticulitis.? Patient will follow-up with GI as an outpatient basis. She has recurrent UTI for which she will continue to follow-up with her PCP for further direction. Time Spent with Patient Time attestation: Total time spent providing and/or coordinating discharge services: 40 minutes Exam Narrative: Patient is comfortable, NAD HEENT: eyes are clear and none icteric LUNGS: Normal respiratory effort ABD: Distended Lower extremities: no edema SKIN: nonjaundiced Neuro: grossly intact. DS: Data Data Completed and Pending Labs on day of discharge: Labs from last 24 hours 09/25/22 09/24/22 05:27 11:11 WBC 4.2 L RBC 3.77 L Hgb 11.2 L Hct 34.7 L MCV 92.0 MCH 29.7 MCHC 32.3 RDW 13.6 Plt Count 261 MPV 10.3 Sodium 137 Potassium 3.7 Chloride 104 Carbon Dioxide 28 Anion Gap 5 L BUN 13 Creatinine 0.70 Estim Creat Clear Calc 50 Estimated GFR > 60 Glucose 90 Calcium 8.7 Magnesium 1.8 C. difficile (PCR) Positive A* Imaging Radiologist's impression: ITS Impressions Abdomen/Pelvis CT 09/21/22 19:43 IMPRESSION: 1. Colitis. 2. Small sliding hiatal hernia. 3. Mildly enlarged retroperitoneal lymph node, likely reactive. 4. Left inguinal hernia containing fat. Discharge Plan Discharge Attending physician on discharge: Miguel Angel Metzger Discharging Clinician: Miguel Angel Metzger Patient Disposition: Home, Self-Care Activity: as tolerated Diet: heart healthy Patient Instructions: Antibiotic Form, C. Diff (Clostridioides Difficile) Infection (DC) Stand Alone Forms: General Discharge Information Follow-up/Referrals: Phan Garvin MD [Primary Care Provider] - 1 Week Discharge Medications: New vancomycin 1,000 mg Recon Soln 125 mg PO Q6HR Qty: 28 0RF amoxicillin 500 mg capsule 500 mg PO Q8H Qty: 15 0RF Continued PreserVision AREDS [id number] [id number] capsule 1 cap PO BID diphenhydramine HCl [NightTime Sleep Aid (diphen)] 50 mg Capsule 50 mg PO HS PRN (Reason: Insomnia) aspirin [Eddie Chewable Aspirin] 81 mg Tablet,Chewable 81 mg PO HS levothyroxine 25 mcg tablet 25 mcg PO DAILY@0630 30 Days Qty: 30 5RF metoprol
[2022-09-25 14:00] VITALS: BP 127/63; PULSE 74; RESP 14; TEMP 36.6; O2SAT 98
== END 2022-09-25 15:15 | disposition home or self-care (01) ==
LOC: ANHED 19:48 → ANH3MED 23:40
PROVIDERS: Emergency Medicine; Family Medicine; Admitting Provider Internal Medicine; Emergency Provider Emergency Medicine; PCP Family Medicine; Visit Provider Internal Medicine
DX: N39.0 Urinary tract infection, site not specified (principal); B95.2 Enterococcus as the cause of diseases classified elsewhere; A04.72 Enterocolitis due to Clostridium difficile, not specified as recurrent; K52.9 Noninfective gastroenteritis and colitis, unspecified; R32 Unspecified urinary incontinence; K21.9 Gastro-esophageal reflux disease without esophagitis; K44.9 Diaphragmatic hernia without obstruction or gangrene; K40.90 Unilateral inguinal hernia, without obstruction or gangrene, not specified as recurrent; R59.9 Enlarged lymph nodes, unspecified; D72.829 Elevated white blood cell count, unspecified; E03.9 Hypothyroidism, unspecified; G47.00 Insomnia, unspecified; M19.90 Unspecified osteoarthritis, unspecified site; Z86.16 Personal history of COVID-19; Z87.440 Personal history of urinary (tract) infections; Z79.82 Long term (current) use of aspirin; Z79.899 Other long term (current) drug therapy
CPT/HCPCS: 36415; 74177; 80048; 80053; 81001; 83690; 83735; 85025; 85027; 87045; 87086; 87147; 87181; 87186; 87427; 87493; 96365; 96367; 96375; 96376; 99285; A9270; G0378; J0290; J0696; J1836; J1885; J2270; J7030; Q9967

== ENCOUNTER 2022-10-08 20:54 | Inpatient (IN) | payer MEDICARE, SELFPAY ==
--- NOTE | ~2022-10-08 | CT_ITS ---
CT of the Abdomen and Pelvis: Indication: Abdominal pain Technique: 2.5 mm axial scans were obtained through the abdomen and pelvis following intravenous adm inistration of 100 cc of Omnipaque 350. Dose reduction technique was used on this scan by utilizing a utomated exposure control and iterative reconstruction technique. The dose-length product (DLP) was 5 63.34 mGy-cm. COMPARISON: 09/21/2022 Findings: Scans through the lung bases are unremarkable. The liver, pancreas, gallbladder, adrenals and kidneys are within normal limits. Small hypodense sple anju structures are unchanged. There are atherosclerotic calcifications of the aorta. No lymphadenopa thy. There is probable diffuse large bowel wall thickening with mild pericolonic inflammatory change, whic h is most prominent at the distal descending colon. No bowel obstruction. No abscess or free air. Images through the pelvis were performed. There is diffuse urinary bladder wall thickening of several small diverticula. Patient appears to be post hysterectomy. No adnexal mass seen. Impression: Probable diffuse large bowel wall thickening with mild diffuse pericolonic inflammatory change. Findi ngs suggest infectious/inflammatory pancolitis. Diffuse urinary bladder wall thickening is compatible with cystitis. Underlying small urinary bladder diverticula are present. Reviewed, dictated and finalized at location . Impression: Probable diffuse large bowel wall thickening with mild diffuse pericolonic infl ammatory change. Findings suggest infectious/inflammatory pancolitis. Diffuse urinary bladder wall thickening is compatible with cystitis. Underlying small urinary bladder diverticula are present.
[2022-10-08 20:54] VITALS: BP 103/53; PULSE 94; RESP 18; TEMP 37.2; O2SAT 96
--- NOTE | 2022-10-08 22:50 | PC.NURSE ---
Assumed care of pt at this time. Report from Saroj LOPEZ
[2022-10-08] MEDS: SODIUM CHLORIDE 0.9% IV 1,000 ML 999 ML IV CONT (23:10)
[2022-10-08] MEDS: MORPHINE SULFATE (*CRX) 4 MG/ML INJ IV PUSH (23:10)
[2022-10-08] MEDS: ONDANSETRON INJ 4 MG/2 ML VIAL IV PUSH (23:10)
[2022-10-08 23:25] VITALS: BP 98/50; PULSE 88; RESP 20; O2SAT 94
[2022-10-08 23:29] LABS: Basophils Absolute Auto 0.1 K/mm3 (0.0-0.1); Basophils Percent Auto 0.5 % (0.2-1.2); Eosinophils Absolute Auto 0.1 K/mm3 (0-0.3); Eosinophils Percent Auto 0.5 % (0-4.4); Hematocrit 38.1 % (37.0-47.0); Hemoglobin 12.3 g/dL (12.0-15.0); Immature Granulocyte Absolute 0.02 K/mm3 (0.00-0.031); Immature Granulocyte Percent A 0.2 % (0-0.5); Lymphocytes Absolute Auto 1.28 K/mm3 (0.9-3.2); Lymphocytes Percent Auto 13.9 % (18.3-44.2); Mean Corpuscular HGB Conc 32.3 g/dl (32-36); Mean Corpuscular Hemoglobin 29.6 pg (26-34); Mean Corpuscular Volume 91.6 fl (80-100); Mean Platelet Volume 10.8 fl (7.4-10.4); Monocytes Absolute Auto 0.9 K/mm3 (0.1-0.6); Monocytes Percent Auto 9.7 % (2.6-8.5); Neutrophils Absolute Auto 6.9 K/mm3 (1.3-6.7); Neutrophils Percent Auto 75.2 % (45.5-73.1); Platelet Count Result 265 k/mm3 (150-375); Red Blood Count 4.16 M/mm3 (4.2-5.4); Red Cell Distribution Width 14.4 % (11.5-14.5); White Blood Count 9.2 K/mm3 (4.5-10.0)
[2022-10-08 23:43] LABS: Lactic Acid Reflex 1.3 mmol/L (0.7-2.0)
[2022-10-09] VITALS (9 sets, daily range): BP systolic 99–123; BP diastolic 54–75; PULSE 62–88; RESP 13–20; TEMP 36.2–37.1; O2SAT 88–99; BMI 28.3
[2022-10-09 00:38] LABS: Appearance Urine Turbid (Clear); Bacteria Urine 4+ /hpf; Bilirubin Urine Negative (Negative); Blood Urine 3+ (Negative); Color Urine Yellow (Yellow); Glucose Urine UA Negative (Negative); Ketones Urine Negative (Negative); Leukocyte Esterase Ur 3+ LEU/UL (Negative); Nitrate Urine Positive (Negative); Non Pathogenic Casts 0-2; Protein Urine 2+ mg/dL (Negative); Specific Grav Ur 1.016 (1.001-1.035); Squamous Epithelial Cell Urine None seen /hpf (Few); Urobilinogen Urine 0.2 mg/dL (<2.0); WBC Urine >100 /hpf; pH Urine 5.5 (5.0-9.0)
[2022-10-09 00:47] LABS: Add Urine Microscopic? YES
--- NOTE | 2022-10-09 00:47 | ED.GENADULT ---
HPI - General Adult General Chief complaint: Weakness Stated complaint: weakness Time Seen by Provider: 10/08/22 22:32 History of Present Illness HPI narrative: Is 81-year-old female who presents the emergency room with chief complaint of diarrhea. The patient reports he has prior history of C. difficile colitis and was recently treated with p.o. vancomycin. Patient reports on Sunday she started having diarrhea again. Patient reports she feels dehydrated and reports she is concerned that she has C. difficile again. Related Data Home Medications Medication Instructions Recorded Confirmed vitamins A,C,M-pxwd-bohprd 4,296 1 cap PO BID 10/15/19 10/02/22 mcg-226 mg-90 mg capsule (PreserVision AREDS) aspirin 81 mg chewable tablet 81 mg PO HS 09/22/22 10/02/22 (Eddie Chewable Low Dose Aspirin) diphenhydramine HCl 50 mg capsule 50 mg PO HS PRN Insomnia 09/22/22 10/02/22 (NightTime Sleep Aid (diphenhydramine)) Allergies Allergy/AdvReac Type Severity Reaction Status Date / Time prednisone Allergy Unknown Unknown Verified 10/02/22 12:38 clavulanic acid Allergy Rash Verified 10/02/22 12:38 [From Augmentin] Review of Systems Review of Systems: A 10 system review of systems was completed on the patient and is negative except for what is stated in the HPI. Nursing and ancillary documentation was reviewed. [facility] Past Medical History Medical History BMI 28.0-28.9,adult BMI 29.0-29.9,adult BMI 30.0-30.9,adult Cataract, right eye COVID-30 March 2021 Hematuria Left knee pain Osteoarthritis of right knee Screen for colon cancer Urinary incontinence Urinary tract infection, site not specified UTI (urinary tract infection) Surgical History Surgical History History of bladder surgery Family History Family History Father Acute myocardial infarction Heart disease Mother Alcohol abuse Tobacco abuse Cancer Sibling Skin cancer Sibling Breast cancer Grandparent Heart disease Grandparent Heart disease Social History Social History Smoking status: Never smoker Second hand tobacco smoke exposure: No Alcohol intake: never Alcohol use details: rare Substance use: never Substance use type: does not use Lack of Transportation: No Lack of Food: Never True Current Housing: I Have Housing Concerned About Future Housing: No Difficulty Paying Gas/Electric Bills: No Difficulty Paying for Meds: No Currently Unemployed: No Education: Bachelor's Degree Difficulty w/ Childcare or Family Care: No Living arrangements: alone Occupation/Education: retired 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 HEAD: Normocephalic, atraumatic. EYES: PERRLA and EOMI. ENT: Nares clear, no rhinorrhea or epistaxis. Mucous membranes moist. NECK: Supple. CHEST: Clear to auscultation. No respiratory distress. HEART: Regular rate and rhythm. No murmur heard. Normal peripheral pulses. ABDOMEN: Soft, diffusely tender to palpation, nondistended, normal active bowel sounds. EXTREMITIES: Normal range of motion. No edema. SKIN: Warm, dry, no rash. NEURO: No focal deficits. Alert and oriented x3. PSYCH: Normal mood and affect. Course Vital Signs Vital signs: Vital Signs Temperature 37.2 C 10/08/22 20:54 Pulse Rate 94 10/08/22 20:54 Respiratory Rate 18 10/08/22 20:54 Blood Pressure 103/53 L 10/08/22 20:54 Pulse Oximetry 96 10/08/22 20:54 Oxygen Delivery Room Air 10/08/22 20
--- NOTE | 2022-10-09 00:58 | PC.NURSE ---
Called lab to follow-up on CMP results, spoke with Mayra who states she will find it .
[2022-10-09 01:00] LABS: Alanine Aminotransferase 19 U/L (6-35); Albumin Level 3.6 g/dL (3.5-5.1); Alkaline Phosphatase 68 U/L (38-126); Anion Gap 7 mmol/L (8-16); Aspartate Amino Transferase 44 U/L (14-36); Bilirubin,Total 0.8 mg/dL (0.2-1.3); Blood Urea Nitrogen 27 mg/dL (7-17); Calcium 8.6 mg/dL (8.4-10.2); Carbon Dioxide 20 mmol/L (22-30); Chloride 104 mmol/L (98-107); Estimated CRCL calculation 40 ml/min; Estimated Glomerular Filt Rate 60; Glucose 131 mg/dL (65-110); Lipase 41 U/L (23-300); Potassium 4.2 mmol/L (3.4-5.0); Sodium 131 mmol/L (137-145)
[2022-10-09] MEDS: metroNIDAZOLE 500 MG/ISO 100ML 500 MG/100 ML BAG 100 MG IVPB ×4 (05:13→21:49)
--- NOTE | 2022-10-09 06:03 | ADMGEN ---
This patient, Maria A Patel, was admitted to [facility] Surg Room 303-01 at 0550. Patient/family oriented to hospital policies and general routines including ID bracelet, bed and alarms, visiting hours, pain management, procedures, bathroom and other care routines, personal items, smoking policy, room service/diet, and visiting hours. Information on how to activate the Rapid Response Team has been discussed. Patient/Family are encouraged to report perceived risks to care and to ask questions if they do not understand what they are told or what they should do.
--- NOTE | 2022-10-09 08:23 | P.PNIM_ITS ---
Progress Note: A&P Assessment and Plan (1) Acute UTI: Code(s): N39.0 - Urinary tract infection, site not specified Status: Acute Assessment and Plan: * UA appears infectious * Currently on Levaquin and Flagyl for colitis, which should cover * CT indicated acute cycstitis * Seems to be recurrent * Will most likely need Urology * Admits to using pads, and leaking * Urine culture pending * Tailor antibiotics to culture results (2) Pancolitis: Code(s): K51.00 - Ulcerative (chronic) pancolitis without complications Status: Acute Assessment and Plan: * CT indicates pancolitis * C.Diff pending * Banatrol added * GI consulted thank you for your help * Supposed to see Dr. Rudy Hollis * Appears to be frequently recurring * Could be from frequent C. Diff infection (3) Diarrhea: Qualifiers: Diarrhea type: unspecified type Qualified Code(s): R19.7 - Diarrhea, unspecified Code(s): R19.7 - Diarrhea, unspecified Status: Acute Assessment and Plan: * Unknown cause * CT shows pancolitis * Banatrol added * Will need high fiber diet * C.Diff pending * Stool cultures pending * IV fluids to deter dehydration Subjective Date/time seen: 10/09/22 08:23 Review of Systems Review of Systems: All systems reviewed & are unremarkable except as noted in HPI and below Exam Narrative: General: well-nourished, well-appearing 81-year-old female, sitting up in bed, comfortable, NARD Neuro: awake, alert and oriented x4, speech clear, no focal neuro deficits noted HEENMT: normocephalic, atraumatic, EOMI, sclerae anicteric, moist oral mucosa Respiratory: Clear to auscultation bilaterally without crackles, rhonchi or wheezes, nonlabored breathing Cardio: regular rate, regular rhythm with S1-S2 Abdomen: nondistended, normoactive bowel sounds, soft, nontender to palpation Extremities: no edema, erythema, or tenderness to palpation, DP pulses 2+ bilaterally Skin: no rashes or lesions, warm and dry Psych: appropriate mood and affect, judgment and insight intact Objective Data Vital Signs Vital Signs: Vital Signs - 24 hr 10/08/22 23:25 10/08/22 20:54 07/31/23 00:29 Temperature 99.0 F Pulse Rate 88 94 88 Respiratory Rate 20 18 20 Blood Pressure 98/50 L 103/53 L Pulse Oximetry 94 96 88 L Oxygen Delivery Room Air Oxygen Flow Rate 10/09/22 00:29 10/09/22 00:47 10/09/22 01:29 Temperature Pulse Rate 82 76 Respiratory Rate 17 16 Blood Pressure 99/61 L 110/55 L Pulse Oximetry 96 94 96 Oxygen Delivery Nasal Cannula Oxygen Flow Rate 2 10/09/22 03:28 10/09/22 05:08 10/09/22 05:35 Temperature Pulse Rate 68 62 69 Respiratory Rate 16 15 15 Blood Pressure 105/61 100/58 L 112/70 Pulse Oximetry 96 96 95 Oxygen Delivery Oxygen Flow Rate 10/09/22 06:00 Temperature 97.1 F L Pulse Rate 77 Respiratory Rate 20 Blood Pressure 107/75 Pulse Oximetry 97 Oxygen Delivery Oxygen Flow Rate Intake/Output Intake/Output:
--- NOTE | 2022-10-09 08:23 | PM.IMPN ---
Progress Note: A&P Assessment and Plan (1) Acute UTI: Code(s): N39.0 - Urinary tract infection, site not specified Status: Acute Assessment and Plan: UA appears infectious Currently on Levaquin and Flagyl for colitis, which should cover CT indicated acute cycstitis Seems to be recurrent Will most likely need Urology Admits to using pads, and leaking Urine culture pending Tailor antibiotics to culture results (2) Pancolitis: Code(s): K51.00 - Ulcerative (chronic) pancolitis without complications Status: Acute Assessment and Plan: CT indicates pancolitis C.Diff pending Banatrol added GI consulted thank you for your help Supposed to see Dr. Rudy Hollis Appears to be frequently recurring Could be from frequent C. Diff infection (3) Diarrhea: Qualifiers: Diarrhea type: unspecified type Qualified Code(s): R19.7 - Diarrhea, unspecified Code(s): R19.7 - Diarrhea, unspecified Status: Acute Assessment and Plan: Unknown cause CT shows pancolitis Banatrol added Will need high fiber diet C.Diff pending Stool cultures pending IV fluids to deter dehydration Subjective Date/time seen: 10/09/22 08:23 Review of Systems Review of Systems: All systems reviewed & are unremarkable except as noted in HPI and below Exam Narrative: General: well-nourished, well-appearing 81-year-old female, sitting up in bed, comfortable, NARD Neuro: awake, alert and oriented x4, speech clear, no focal neuro deficits noted HEENMT: normocephalic, atraumatic, EOMI, sclerae anicteric, moist oral mucosa Respiratory: Clear to auscultation bilaterally without crackles, rhonchi or wheezes, nonlabored breathing Cardio: regular rate, regular rhythm with S1-S2 Abdomen: nondistended, normoactive bowel sounds, soft, nontender to palpation Extremities: no edema, erythema, or tenderness to palpation, DP pulses 2+ bilaterally Skin: no rashes or lesions, warm and dry Psych: appropriate mood and affect, judgment and insight intact Objective Data Vital Signs Vital Signs: Vital Signs - 24 hr 10/08/22 23:25 10/08/22 20:54 10/09/22 00:29 Temperature 99.0 F Pulse Rate 88 94 88 Respiratory Rate 20 18 20 Blood Pressure 98/50 L 103/53 L Pulse Oximetry 94 96 88 L Oxygen Delivery Room Air Oxygen Flow Rate 10/09/22 00:29 10/09/22 00:47 10/09/22 01:29 Temperature Pulse Rate 82 76 Respiratory Rate 17 16 Blood Pressure 99/61 L 110/55 L Pulse Oximetry 96 94 96 Oxygen Delivery Nasal Cannula Oxygen Flow Rate 2 10/09/22 03:28 10/09/22 05:08 10/09/22 05:35 Temperature Pulse Rate 68 62 69 Respiratory Rate 16 15 15 Blood Pressure 105/61 100/58 L 112/70 Pulse Oximetry 96 96 95 Oxygen Delivery Oxygen Flow Rate 10/09/22 06:00 Temperature 97.1 F L Pulse Rate 77 Respiratory Rate 20 Blood Pressure 107/75 Pulse Oximetry 97 Oxygen Delivery Oxygen Flow Rate Intake/Output Intake/Output: Intake & Output 10/06/22 10/07/22 10/08/22 10/09/22 23:59 23:59 23:59 23:59 Intake Total 1100 Output Total 300 Balance 800 Meds/Results Medications: Active Medications Generic Name Dose Route Start Last Admin Trade Name Freq PRN Reason Stop Dose Admin Acetaminophen 650 mg 10/09/22 05:09 Acetaminophen 325 Mg Tablet PO Q4H PRN Mild Pain (1-3) or Fever Hydrocodone Bitart/Acetaminophen 1 tab 10/09/22 08:19 Hydrocodone/Acetaminophen (*Crx) 5-325 Mg Tablet PO Q4H PRN Moderate Pain (4-10) Levofloxacin/Dextrose 750 mg in 150 mls @ 100 mls/hr 10/10/22 06:00 Levaquin 750 Mg/D5w 150 Ml IVPB Q24H HUSSEIN Metronidazole 500 mg in 100 mls @ 100 mls/hr 10/09/22 11:00 Flagyl 500 Mg/Iso Soln 100 Ml IVPB Q6H HUSSEIN Sodium Chloride 1,000 mls @ 125 mls/hr 10/09/22 05:10 Normal Saline Iv IV CONT .Q8H HUSSEIN Morphine Sulfate 4 mg 0
--- NOTE | 2022-10-09 10:00 | PM.IMHP ---
H&P: [facility] History of Present Illness Date/Time: 10/09/22 08:32 Chief Complaint: Recurrent Diarrhea Narrative: patient is an 81-year-old female with past medical history of hypothyroidism, C diff, current, frequent UTI, urinary incontinence who presented to the ED with complaints of diarrhea. Patient recently been treated for C diff with p.o. vancomycin. She stated that she went [facility] and she at home she was having extreme diarrhea. She stated that she went through 40 diapers and 1/2 days. She stated that on Sunday her friend came over and told her she had to go back to the hospital. She stated that her abdominal pain has been unbearable. She stated that she has given worn out with coming back and forth the hospital as she just left here 4 days the same thing. She stated that she when seen a he GI Dr. Garrido who was trying to run test and then 2 months later was going to run more test. She stated that he wanted to do a CT colonoscopy. She stated that since then she has also seen her primary care provider who has done multiple urine cultures and a was said to her that she has not had any growth. She stated that she feels really bad and has had no sleep or food since Sunday night. She also stated that she has no energy. At this time she has not been able to urinate however she states that she is used to going every 45 minutes or so. She did state that she does have pain and burning with urination. she currently denies any chest pain, shortness a breath, nausea, vomiting, fevers, sweats, chills, lightheadedness, dizziness, weakness or fatigue. Unassigned note patient has been to multiple urologists and has been on multiple antibiotics. She also saw ID physician for frequent UTIs. In the ED CT of the abdomen pelvis was performed showed infectious inflammatory pancolitis with large bowel wall thickening and pericolonic inflammatory changes along with bladder wall thickening compatible with cystitis. Labs show WBC of 9.2 sodium 131, BUN of 27 creatinine of 0.9. GI has been consulted. Patient is being admitted to the hospitalist service under observation. Review of Systems Review of Systems: 12 systems reviewed as is negative unless otherwise specified in the [facility] Past Medical History Medical History Atrial fibrillation with rapid ventricular response BMI 28.0-28.9,adult BMI 29.0-29.9,adult BMI 30.0-30.9,adult Cataract, right eye Colitis COVID-30 March 2021 Diverticulitis ETD (eustachian tube dysfunction) GERD (gastroesophageal reflux disease) Hematuria Hyperlipidemia Hypothyroidism Impacted cerumen of both ears Interstitial cystitis (chronic) with hematuria Osteoarthritis of right knee Osteoporosis Otitis media Perforation of right tympanic membrane Persistent cough Recurrent UTI (urinary tract infection) Screen for colon cancer Screening for breast cancer Screening for thyroid disorder UTI (urinary tract infection) Vitamin D deficiency Surgical History Surgical History History of bladder surgery Family History Family History Father Acute myocardial infarction Heart disease Mother Alcohol abuse Tobacco abuse Cancer Sibling Skin cancer Sibling Breast cancer Grandparent Heart disease Grandparent Heart disease Social History Social History (Updated 10/09/22 @ 15:52 by NAVARRO Garcia) Social History: patient is a she has two kids. Her daughter Nisa is her surrogate. She wishes to be DNR. Smoking status: Never smoker Second hand tobacco smoke exposure: No Alcohol intake: never Alcohol use details: rare Substance use: never Substance use type: does not use Lack of Transportation: No Lack of Food: Never True Current Housing: I
--- NOTE | 2022-10-09 11:06 | WPDGICN ---
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 (2) Diarrhea: Qualifiers: Diarrhea type: unspecified type Qualified Code(s): R19.7 - Diarrhea, unspecified Code(s): R19.7 - Diarrhea, unspecified Status: Acute Assessment and Plan: she states her stools are not watery but are very thin and soft. She also has discomfort in the rectum being sore from having so many bowel movements. She passes stool every time she sits down to urinate. She has not seen blood her stools throughout this past 2 months. If she is negative for C diff him we will proceed with colonoscopy this admission. (3) C. difficile colitis: Code(s): A04.72 - Enterocolitis due to Clostridium difficile, not specified as recurrent Status: Acute Assessment and Plan: she has just recently completed her 10 day course of vancomycin which was started when she was recently hospitalized and found to have C diff colitis. this is apparently her 1st episode of C difficile colitis. Her stools are less watery now but still informed her GI Consult Note Consult date/time: 10/09/22 11:06 HPI: Maria A Patel is a 81 year old female Who is admitted now with diarrhea. CT scan shows diffuse, merlos colitis. She was Seen in the emergency room in August, and diagnosed with UTI and with acute diverticulitis and treated with antibiotics, specifically metronidazole and levofloxacin. She then was hospitalized just about 2 weeks ago with a urinary tract infection. She was started on antibiotics and then she had a stool study that showed she was positive for C diff. She was started on vancomycin and continues to take that at home for 10 days total. she has recently seen a electrotherapist in [place] who said that she might do a colonoscopy a month or so after the patient has recovered from her apparent infectious colitis. Colonoscopy was discussed with the patient was reticent to do that. Consequently apparently a virtual colonoscopy was being scheduled. Review of Systems Review of Systems: All systems reviewed & are unremarkable except as noted in HPI and below PMFSH Past Medical History Medical History Atrial fibrillation with rapid ventricular response BMI 28.0-28.9,adult BMI 29.0-29.9,adult BMI 30.0-30.9,adult Cataract, right eye Colitis COVID-30 March 2021 Diverticulitis ETD (eustachian tube dysfunction) GERD (gastroesophageal reflux disease) Hematuria Hyperlipidemia Hypothyroidism Impacted cerumen of both ears Interstitial cystitis (chronic) with hematuria Osteoarthritis of right knee Osteoporosis Otitis media Perforation of right tympanic membrane Persistent cough Recurrent UTI (urinary tract infection) Screen for colon cancer Screening for breast cancer Screening for thyroid disorder UTI (urinary tract infection) Vitamin D deficiency Surgical History Surgical History History of bladder surgery Family History Family History Father Acute myocardial infarction Heart disease Mother Alcohol abuse Tobacco abuse Cancer Sibling Skin cancer Sibling Breast cancer Grandparent Heart disease Grandparent Heart disease Social History Social History Smoking status: Never smoker Second hand tobacco smoke exposure: No Alcohol intake: never Alcohol use details: rare Substance use: never Substance use type: does not use Lack of
[2022-10-09 18:52] LABS: Toxigenic C. Diff POSITIVE (NEGATIVE)
[2022-10-09] MEDS: FIDAXOMICIN 200 MG TABLET PO (21:49)
[2022-10-10] MEDS: SODIUM CHLORIDE 0.9% IV 1,000 ML 125 ML IV CONT ×2 (04:14→08:31)
[2022-10-10] MEDS: metroNIDAZOLE 500 MG/ISO 100ML 500 MG/100 ML BAG 100 MG IVPB ×4 (04:15→23:35)
[2022-10-10] MEDS: levoFLOXacin 750 MG/D5W 150 ML 750 MG/150 ML BAG 100 MG IVPB (05:32)
[2022-10-10 05:48] LABS: Basophils Percent Auto 0.7 % (0.2-1.2); Eosinophils Absolute Auto 0.2 K/mm3 (0-0.3); Eosinophils Percent Auto 4.1 % (0-4.4); Hematocrit 33.2 % (37.0-47.0); Hemoglobin 10.3 g/dL (12.0-15.0); Immature Granulocyte Absolute 0.01 K/mm3 (0.00-0.031); Immature Granulocyte Percent A 0.2 % (0-0.5); Lymphocytes Absolute Auto 1.37 K/mm3 (0.9-3.2); Lymphocytes Percent Auto 25.3 % (18.3-44.2); Mean Corpuscular Hemoglobin 29.1 pg (26-34); Mean Corpuscular Volume 93.8 fl (80-100); Mean Platelet Volume 10.4 fl (7.4-10.4); Monocytes Absolute Auto 0.7 K/mm3 (0.1-0.6); Monocytes Percent Auto 12.7 % (2.6-8.5); Neutrophils Absolute Auto 3.1 K/mm3 (1.3-6.7); Platelet Count Result 206 k/mm3 (150-375); Red Blood Count 3.54 M/mm3 (4.2-5.4); Red Cell Distribution Width 14.2 % (11.5-14.5); White Blood Count 5.4 K/mm3 (4.5-10.0)
[2022-10-10 06:00] VITALS: BP 127/59; PULSE 74; RESP 13; TEMP 36.7; O2SAT 97
[2022-10-10 06:00] LABS: Alanine Aminotransferase 17 U/L (6-35); Albumin Level 3.1 g/dL (3.5-5.1); Alkaline Phosphatase 71 U/L (38-126); Anion Gap 5 mmol/L (8-16); Aspartate Amino Transferase 28 U/L (14-36); Bilirubin,Total 0.4 mg/dL (0.2-1.3); Blood Urea Nitrogen 18 mg/dL (7-17); Calcium 8.2 mg/dL (8.4-10.2); Carbon Dioxide 22 mmol/L (22-30); Chloride 111 mmol/L (98-107); Estimated CRCL calculation 50 ml/min; Estimated Glomerular Filt Rate > 60; Glucose 99 mg/dL (65-110); Magnesium 1.7 mg/dL (1.6-2.3); Potassium 3.9 mmol/L (3.4-5.0); Sodium 138 mmol/L (137-145)
--- NOTE | 2022-10-10 06:50 | WPDGIPROGNO ---
Progress Note: A&P Assessment and Plan (1) Pancolitis: Code(s): K51.00 - Ulcerative (chronic) pancolitis without complications Status: Acute Assessment and Plan: she has seen a assistant professor of physics in [place] who had consider colonoscopy but the patient was reluctant, as she has knon patients who have had poor outcomes from the procedure. Now that the C diff has come back positive, I told her that it is unlikely she will need a colonoscopy as I am fairly certain her colitis is due to the infection, though of course she will need follow-up. (2) Diarrhea: Qualifiers: Diarrhea type: unspecified type Qualified Code(s): R19.7 - Diarrhea, unspecified Code(s): R19.7 - Diarrhea, unspecified Status: Acute Assessment and Plan: she states her stools are not watery but are very thin and soft. She also has discomfort in the rectum being sore from having so many bowel movements. She passes stool every time she sits down to urinate. She has not seen blood her stools throughout this past 2 months. If she is negative for C diff , then we will proceed with colonoscopy this admission. C diff is positive. That explains her diarrhea. (3) C. difficile colitis: Code(s): A04.72 - Enterocolitis due to Clostridium difficile, not specified as recurrent Status: Acute Assessment and Plan: she has just recently completed her 10 day course of vancomycin which was started when she was recently hospitalized and found to have C diff colitis. this is apparently her 1st episode of C difficile colitis. Her stools are less watery now but still informed her I started her last night on Dificid when C diff came back positive. I explained her that she will need to take this as an outpatient and it is expensive and therefore we will need to try to get prior authorization for that. Hopefully her insurance will cover it. Most C diff strains are resistant to vancomycin now. Because she has recurrent urinary tract infections I told her that we will keep her on Florastor to help reduce the recurrence. (4) Recurrent UTI: Code(s): N39.0 - Urinary tract infection, site not specified Status: Acute Assessment and Plan: Rohini spoke at length about her troubling recurrent urinary tract infections that she began having after her bladder suspension by a urogynecologist. That physician could not offer any more help and referred her to urology a [place]. She saw several physicians there and nurse practitioners. Dr. Rodriguez has not been able to help eliminate the recurrences and he referred her to infectious disease specialist at [facility]. Nevertheless, she continues to have these infections and this will be a continuing risk for her having recurrent C diff. she is considering going to [place] where she has family and getting therapy at [facility] Time Spent With Patient Time with patient: 25 - 35 minutes Subjective Date/time seen: 10/10/22 06:50 she has no new symptoms. Stools are still loose. She is able to eat. Abdominal discomfort has not worsened. I informed her that C diff did come back positive. 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 I also explained to her that she will need to take Dificid to eradicate it. She cannot recall if she was prescribed that previously but it appears that it had not been. She does recall however that 1 medication that they wanted me to take, pharmacy could not get. She understands that acquiring C diff is a complication of antibiotic therapy. It is unfortunate that she has recurrent urinary tract infections. This began after her bladder suspension by a urogynecologist. She vented at length about how her health has deteriorated at age 81. How her summer has been room by recurrent hospitalizations and infections. And also how no one can figure out how to stop her urinary tract infections. Exam Const: General: cooperative and heal
[2022-10-10] MEDS: FIDAXOMICIN 200 MG TABLET PO ×2 (08:30→20:27)
[2022-10-10] MEDS: SACCHAROMYCES BOULARDII 250 MG CAPSULE PO ×3 (08:30→17:06)
[2022-10-10] MEDS: MAGNESIUM SULF 1 GM/D5W 100 ML 1 GM/100 ML BAG IVPB (09:44)
--- NOTE | 2022-10-10 12:34 | PM.IMPN ---
Progress Note: A&P Assessment and Plan (1) C. difficile colitis: Code(s): A04.72 - Enterocolitis due to Clostridium difficile, not specified as recurrent Status: Acute (2) Pancolitis: Code(s): K51.00 - Ulcerative (chronic) pancolitis without complications Status: Acute (3) Diarrhea: Qualifiers: Diarrhea type: unspecified type Qualified Code(s): R19.7 - Diarrhea, unspecified Code(s): R19.7 - Diarrhea, unspecified Status: Acute (4) Acute UTI: Code(s): N39.0 - Urinary tract infection, site not specified Status: Acute (5) Recurrent UTI: Code(s): N39.0 - Urinary tract infection, site not specified Status: Acute Plan 81-year-old female with past medical history of hypothyroidism, C diff, current, frequent UTI, urinary incontinence who presented to the ED with complaints of diarrhea.? Patient recently been treated for C diff with p.o. vancomycin.?Patient tested positive for Cdiff. 1)Acute Cdiff Colitis: Appreciate GI help Started on Dificid c/w IV flagyl Will need insurance prior auth, affiliate manager aware Supplement mag 2)Recurrent UTI: c/w Levofloxacin Await Urine Culture Will need outpatient ID follow up 3)DVT ppx: hep SQ 4)Code:Full 5)Dispo:pending improvement Time Spent With Patient Time with patient: 25 - 35 minutes Subjective Date/time seen: 10/10/22 12:34 Interval history: very tearful due to recurrent UTI's which has caused her to have Cdiff infection Denies any loose stool overnight No abdominal pain Review of Systems Review of Systems: 12 systems reviewed as is negative unless otherwise specified Exam Narrative: General: well-nourished, well-appearing, tearful Neuro: awake, alert and oriented x4, speech clear, no focal neuro deficits noted HEENMT: normocephalic, atraumatic, EOMI, sclerae anicteric, moist oral mucosa Respiratory: Clear to auscultation bilaterally without crackles, rhonchi or wheezes, nonlabored breathing Cardio: regular rate, regular rhythm with S1-S2 Abdomen: nondistended, normoactive bowel sounds, soft, nontender to palpation Extremities: no edema, erythema, or tenderness to palpation, DP pulses 2+ bilaterally Skin: no rashes or lesions, warm and dry Psych: tearful Objective Data Vital Signs Vital Signs: Vital Signs - 24 hr 10/09/22 14:00 10/09/22 22:00 10/09/22 20:00 Temperature 98.7 F 98.4 F Pulse Rate 77 75 Respiratory Rate 16 13 Blood Pressure 116/68 123/54 L Pulse Oximetry 99 98 Oxygen Delivery Room Air 10/10/22 06:00 10/10/22 08:00 Temperature 98.1 F Pulse Rate 74 Respiratory Rate 13 Blood Pressure 127/59 L Pulse Oximetry 97 Oxygen Delivery Room Air Intake/Output Intake/Output: Intake & Output 10/07/22 10/08/22 10/09/22 10/10/22 23:59 23:59 23:59 23:59 Intake Total 2598 1700 Output Total 700 1600 Balance 1898 100 Meds/Results Medications: Active Medications Generic Name Dose Route Start Last Admin Trade Name Freq PRN Reason Stop Dose Admin Acetaminophen 650 mg 10/09/22 05:09 Acetaminophen 325 Mg Tablet PO Q4H PRN Mild Pain (1-3) or Fever Hydrocodone Bitart/Acetaminophen 1 tab 10/09/22 08:19 Hydrocodone/Acetaminophen (*Crx) 5-325 Mg Tablet PO Q4H PRN Moderate Pain (4-10) Fidaxomicin 200 mg 10/09/22 21:00 10/10/22 08:30 Fidaxomicin 200 Mg Tablet PO 200 mg Q12HR HUSSEIN Administration Levofloxacin/Dextrose 750 mg in 150 mls @ 100 mls/hr 10/10/22 06:00 10/10/22 07:02 Levaquin 750 Mg/D5w 150 Ml IVPB Infused Q24H HUSSEIN Infusion Metronidazole 500 mg in 100 mls @ 100 mls/hr 10/09/22 11:00 10/10/22 11:07 Flagyl 500 Mg/Iso Soln 100 Ml IVPB 100 mls/hr Q6H HUSSEIN Administration Morphine Sulfate 4 mg 10/09/22 05:09 Morphine Sulfate (*Crx) 4 Mg/Ml Inj IV PUSH Q2H PRN Pain Rated 7-10 Ondansetron HCl 4 mg 10/09/22 08:19 Ondansetron Inj 4 Mg/2 Ml Vial
[2022-10-10 14:00] VITALS: BP 137/70; PULSE 75; RESP 13; TEMP 36.6; O2SAT 100
[2022-10-10] MEDS: HYDROcodone/acetaminophen (*CRX) 5-325 MG TABLET 1 TAB PO (14:10)
[2022-10-10 20:23] VITALS: BP 143/83; PULSE 77; RESP 16; TEMP 36.1; O2SAT 99
--- NOTE | 2022-10-10 20:26 | ECG_ITS ---
Measurements Intervals Barron Rate: 76 P: -8 ID: [id number] QRS: 64 QRSD: 98 T: 5 QT: 400 QTc: 452 Interpretive Statements SINUS RHYTHM NORMAL ELECTROCARDIOGRAM COMPARED TO ECG 03/04/2022 12:05:43 NO SIGNIFICANT CHANGES Electronically Signed On 10-11-2022 7:45:13 CDT by Siddharth Jennings M.D.
[2022-10-10] MEDS: HEPARIN SODIUM 5,000 UNITS/ML VIAL 5000 UNITS SUB-Q (20:27)
[2022-10-10] MEDS: ALPRAZolam (*CRX) 0.5 MG TABLET PO (22:15)
[2022-10-11 04:46] VITALS: BP 116/56; PULSE 72; RESP 16; TEMP 36.5; O2SAT 98
[2022-10-11] MEDS: metroNIDAZOLE 500 MG/ISO 100ML 500 MG/100 ML BAG 100 MG IVPB ×2 (05:07→10:25)
[2022-10-11] MEDS: levoFLOXacin 750 MG/D5W 150 ML 750 MG/150 ML BAG 100 MG IVPB (06:19)
[2022-10-11 06:40] LABS: Basophils Percent Auto 0.9 % (0.2-1.2); Eosinophils Absolute Auto 0.3 K/mm3 (0-0.3); Eosinophils Percent Auto 5.7 % (0-4.4); Hematocrit 33.2 % (37.0-47.0); Hemoglobin 10.3 g/dL (12.0-15.0); Immature Granulocyte Absolute 0.02 K/mm3 (0.00-0.031); Immature Granulocyte Percent A 0.5 % (0-0.5); Lymphocytes Absolute Auto 1.28 K/mm3 (0.9-3.2); Lymphocytes Percent Auto 29.1 % (18.3-44.2); Mean Corpuscular Hemoglobin 28.9 pg (26-34); Mean Platelet Volume 10.8 fl (7.4-10.4); Monocytes Absolute Auto 0.6 K/mm3 (0.1-0.6); Monocytes Percent Auto 13.9 % (2.6-8.5); Neutrophils Absolute Auto 2.2 K/mm3 (1.3-6.7); Neutrophils Percent Auto 49.9 % (45.5-73.1); Platelet Count Result 213 k/mm3 (150-375); Red Blood Count 3.57 M/mm3 (4.2-5.4); Red Cell Distribution Width 13.9 % (11.5-14.5); White Blood Count 4.4 K/mm3 (4.5-10.0)
[2022-10-11] MEDS: LEVOTHYROXINE SODIUM 25 MCG TABLET PO (06:52)
[2022-10-11 06:54] LABS: Anion Gap 4 mmol/L (8-16); Blood Urea Nitrogen 12 mg/dL (7-17); Calcium 8.6 mg/dL (8.4-10.2); Carbon Dioxide 24 mmol/L (22-30); Chloride 106 mmol/L (98-107); Estimated CRCL calculation 58 ml/min; Estimated Glomerular Filt Rate > 60; Glucose 86 mg/dL (65-110); Potassium 3.6 mmol/L (3.4-5.0); Sodium 134 mmol/L (137-145)
[2022-10-11] MEDS: METOPROLOL SUCCINATE EXT REL 25 MG TABCR PO (09:57)
[2022-10-11] MEDS: FIDAXOMICIN 200 MG TABLET PO ×2 (09:57→20:23)
[2022-10-11] MEDS: OPTI-GEN TAB 1 TABLET PO (09:57)
[2022-10-11] MEDS: SACCHAROMYCES BOULARDII 250 MG CAPSULE PO (09:57)
[2022-10-11] MEDS: HEPARIN SODIUM 5,000 UNITS/ML VIAL 5000 UNITS SUB-Q ×2 (09:59→20:23)
[2022-10-11] MEDS: HYDROcodone/acetaminophen (*CRX) 5-325 MG TABLET 1 TAB PO (11:30)
--- NOTE | 2022-10-11 12:37 | PM.IMPN ---
Progress Note: A&P Assessment and Plan (1) C. difficile colitis: Code(s): A04.72 - Enterocolitis due to Clostridium difficile, not specified as recurrent Status: Acute (2) Pancolitis: Code(s): K51.00 - Ulcerative (chronic) pancolitis without complications Status: Acute (3) Diarrhea: Qualifiers: Diarrhea type: unspecified type Qualified Code(s): R19.7 - Diarrhea, unspecified Code(s): R19.7 - Diarrhea, unspecified Status: Acute (4) Acute UTI: Code(s): N39.0 - Urinary tract infection, site not specified Status: Acute (5) Recurrent UTI: Code(s): N39.0 - Urinary tract infection, site not specified Status: Acute Plan 81-year-old female with past medical history of hypothyroidism, C diff, current, frequent UTI, urinary incontinence who presented to the ED with complaints of diarrhea.? Patient recently been treated for C diff with p.o. vancomycin.?Patient tested positive for Cdiff. 1)Acute Cdiff Colitis: Appreciate GI help c/w Dificid c/w IV flagyl D/C IV fluids Prior [facility] for dificid C/w Probiotic 2)Recurrent UTI: c/w Levofloxacin Urine culture positive for pseudomonas, await sensitivity Will need outpatient ID follow up 3)DVT ppx: hep SQ 4)Code:Full 5)Dispo:pending improvement Time Spent With Patient Time with patient: 25 - 35 minutes Subjective Date/time seen: 10/11/22 12:37 Interval history: no acute events overnight Diarrhea has been resolving Review of Systems Review of Systems: 12 systems reviewed as is negative unless otherwise specified Exam Narrative: General: well-nourished, well-appearing, Neuro: awake, alert and oriented x4, speech clear, no focal neuro deficits noted HEENMT: normocephalic, atraumatic, EOMI, sclerae anicteric, moist oral mucosa Respiratory: Clear to auscultation bilaterally without crackles, rhonchi or wheezes, nonlabored breathing Cardio: regular rate, regular rhythm with S1-S2 Abdomen: nondistended, normoactive bowel sounds, soft, nontender to palpation Extremities: no edema, erythema, or tenderness to palpation, DP pulses 2+ bilaterally Skin: no rashes or lesions, warm and dry Psych: no distress Objective Data Vital Signs Vital Signs: Vital Signs - 24 hr 10/10/22 14:00 10/10/22 20:23 10/11/22 04:46 Temperature 98 F 97 F L 97.7 F Pulse Rate 75 77 72 Respiratory Rate 13 16 16 Blood Pressure 137/70 143/83 H 116/56 L Pulse Oximetry 100 99 98 Oxygen Delivery 10/11/22 08:00 Temperature Pulse Rate Respiratory Rate Blood Pressure Pulse Oximetry Oxygen Delivery Room Air Intake/Output Intake/Output: Intake & Output 10/08/22 10/09/22 10/10/22 10/11/22 23:59 23:59 23:59 23:59 Intake Total 2598 3800 350 Output Total 700 2800 1000 Balance 1898 1000 -650 Meds/Results Medications: Active Medications Generic Name Dose Route Start Last Admin Trade Name Freq PRN Reason Stop Dose Admin Acetaminophen 650 mg 10/09/22 05:09 Acetaminophen 325 Mg Tablet PO Q4H PRN Mild Pain (1-3) or Fever Hydrocodone Bitart/Acetaminophen 1 tab 10/09/22 08:19 10/11/22 11:30 Hydrocodone/Acetaminophen (*Crx) 5-325 Mg Tablet PO 1 tab Q4H PRN Administration Moderate Pain (4-10) Fidaxomicin 200 mg 10/09/22 21:00 10/11/22 09:57 Fidaxomicin 200 Mg Tablet PO 200 mg Q12HR HUSSEIN Administration Heparin Sodium (Porcine) 5,000 units 10/10/22 21:00 10/11/22 09:59 Heparin Sodium 5,000 Units/Ml Vial SUB-Q 5,000 units Q12HR HUSSEIN Administration Levofloxacin/Dextrose 750 mg in 150 mls @ 100 mls/hr 10/10/22 06:00 10/11/22 07:49 Levaquin 750 Mg/D5w 150 Ml IVPB Infused Q24H HUSSEIN Infusion Metronidazole 500 mg in 100 mls @ 100 mls/hr 10/09/22 11:00 10/11/22 10:25 Flagyl 500 Mg/Iso Soln 100 Ml IVPB 100 mls/hr Q6H HUSSEIN Administration Levothyroxine Sodium 25 mcg 10/11/22 06:30 10/11/22 06:52 Levothyroxine Sodium 25
--- NOTE | 2022-10-11 12:50 | WPDGIPROGNO ---
Progress Note: A&P Assessment and Plan (1) Pancolitis: Code(s): K51.00 - Ulcerative (chronic) pancolitis without complications Status: Acute Assessment and Plan: she has seen a hearing screen coordinator in [place] who had consider colonoscopy but the patient was reluctant, as she has knon patients who have had poor outcomes from the procedure. Now that the C diff has come back positive, I told her that it is unlikely she will need a colonoscopy as I am fairly certain her colitis is due to the infection, though of course she will need follow-up. (2) Diarrhea: Qualifiers: Diarrhea type: unspecified type Qualified Code(s): R19.7 - Diarrhea, unspecified Code(s): R19.7 - Diarrhea, unspecified Status: Acute Assessment and Plan: she states her stools are not watery but are very thin and soft. She also has discomfort in the rectum being sore from having so many bowel movements. She passes stool every time she sits down to urinate. She has not seen blood her stools throughout this past 2 months. If she is negative for C diff , then we will proceed with colonoscopy this admission. C diff is positive. That explains her diarrhea. (3) C. difficile colitis: Code(s): A04.72 - Enterocolitis due to Clostridium difficile, not specified as recurrent Status: Acute Assessment and Plan: she has just recently completed her 10 day course of vancomycin which was started when she was recently hospitalized and found to have C diff colitis. this is apparently her 1st episode of C difficile colitis. Her stools are less watery now but still informed her I started her last night on Dificid when C diff came back positive. I explained her that she will need to take this as an outpatient and it is expensive and therefore we will need to try to get prior authorization for that. Hopefully her insurance will cover it. Most C diff strains are resistant to vancomycin now. Because she has recurrent urinary tract infections I told her that we will keep her on Florastor to help reduce the recurrence. (4) Recurrent UTI: Code(s): N39.0 - Urinary tract infection, site not specified Status: Acute Assessment and Plan: Rohini spoke at length about her troubling recurrent urinary tract infections that she began having after her bladder suspension by a urogynecologist. That physician could not offer any more help and referred her to urology a [place]. She saw several physicians there and nurse practitioners. Dr. Rodriguez has not been able to help eliminate the recurrences and he referred her to infectious disease specialist at [facility]. Nevertheless, she continues to have these infections and this will be a continuing risk for her having recurrent C diff. she is considering going to [place] where she has family and getting therapy at [facility] (5) Nausea and vomiting: Code(s): R11.2 - Nausea with vomiting, unspecified Status: Acute Assessment and Plan: the last 24 hour she has not been able to eat particularly the this afternoon because of tense fine and worsening nausea. She is also burping excessively. I think that her pain medication could be a factor. She also has been receiving intravenous Flagyl which I will discontinue. She states that she would rather put up with some pain then be nauseated and will therefore hold off on further pain medication if she can. Plan As above, will restart IV fluids because of no significant oral intake today. Discontinue metronidazole. She will try to hold off on pain medication to get relief of her nausea. She states that she has requested no more visits by hospitalist. 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 Ti
[2022-10-11] MEDS: ONDANSETRON INJ 4 MG/2 ML VIAL IV PUSH (13:45)
[2022-10-11 14:00] VITALS: BP 138/74; PULSE 62; RESP 16; TEMP 36.7; O2SAT 98
[2022-10-11] MEDS: SODIUM CHLORIDE 0.9% IV 1,000 ML 100 ML IV CONT (17:43)
[2022-10-11] MEDS: METOCLOPRAMIDE HCL INJ 10 MG/2 ML VIAL IV PUSH (17:43)
[2022-10-11] MEDS: ALPRAZolam (*CRX) 0.5 MG TABLET PO (18:27)
[2022-10-11 21:00] VITALS: BP 146/77; PULSE 65; RESP 16; TEMP 36.2; O2SAT 94
[2022-10-11 22:12] VITALS: O2SAT 95
[2022-10-12] MEDS: SODIUM CHLORIDE 0.9% IV 1,000 ML 100 ML IV CONT (03:46)
[2022-10-12 05:27] VITALS: BP 135/62; PULSE 66; RESP 16; TEMP 36.6; O2SAT 99
[2022-10-12] MEDS: levoFLOXacin 750 MG/D5W 150 ML 750 MG/150 ML BAG 100 MG IVPB (05:52)
[2022-10-12] MEDS: LEVOTHYROXINE SODIUM 25 MCG TABLET PO (06:00)
--- NOTE | 2022-10-12 06:43 | WPDGIPROGNO ---
Progress Note: A&P Assessment and Plan (1) Pancolitis: Code(s): K51.00 - Ulcerative (chronic) pancolitis without complications Status: Acute Assessment and Plan: she has seen a can vacuum tester in [place] who had consider colonoscopy but the patient was reluctant, as she has knon patients who have had poor outcomes from the procedure. Now that the C diff has come back positive, I told her that it is unlikely she will need a colonoscopy as I am fairly certain her colitis is due to the infection, though of course she will need follow-up. 10/12/2022 she has many questions but mostly it is her concern about how and when she will be read of C difficile and more importantly, however prevent it from vet assistant because she has had to have so many courses of antibiotics for UTIs. (2) Diarrhea: Qualifiers: Diarrhea type: unspecified type Qualified Code(s): R19.7 - Diarrhea, unspecified Code(s): R19.7 - Diarrhea, unspecified Status: Acute Assessment and Plan: she states her stools are not watery but are very thin and soft. She also has discomfort in the rectum being sore from having so many bowel movements. She passes stool every time she sits down to urinate. She has not seen blood her stools throughout this past 2 months. If she is negative for C diff , then we will proceed with colonoscopy this admission. C diff is positive. That explains her diarrhea. Stools have returned to normal or close to normal consistency. (3) C. difficile colitis: Code(s): A04.72 - Enterocolitis due to Clostridium difficile, not specified as recurrent Status: Acute Assessment and Plan: she has just recently completed her 10 day course of vancomycin which was started when she was recently hospitalized and found to have C diff colitis. this is apparently her 1st episode of C difficile colitis. Her stools are less watery now but still informed her I started her last night on Dificid when C diff came back positive. I explained her that she will need to take this as an outpatient and it is expensive and therefore we will need to try to get prior authorization for that. Hopefully her insurance will cover it. Most C diff strains are resistant to vancomycin now. Because she has recurrent urinary tract infections I told her that we will keep her on Florastor to help reduce the recurrence. (4) Recurrent UTI: Code(s): N39.0 - Urinary tract infection, site not specified Status: Acute Assessment and Plan: Rohini spoke at length about her troubling recurrent urinary tract infections that she began having after her bladder suspension by a urogynecologist. That physician could not offer any more help and referred her to urology a [place]. She saw several physicians there and nurse practitioners. Dr. Rodriguez has not been able to help eliminate the recurrences and he referred her to infectious disease specialist at [facility]. Nevertheless, she continues to have these infections and this will be a continuing risk for her having recurrent C diff. she is considering going to [place] where she has family and getting therapy at [facility] (5) Nausea and vomiting: Code(s): R11.2 - Nausea with vomiting, unspecified Status: Acute Assessment and Plan: the last 24 hour she has not been able to eat particularly the this afternoon because of tense fine and worsening nausea. She is also burping excessively. I think that her pain medication could be a factor. She also has been receiving intravenous Flagyl which I will discontinue. She states that she would rather put up with some pain then be nauseated and will therefore hold off on further pain medication if she can. Plan As above, will restart IV fluids because of no significant oral intake today. Discontinue metronidazole. She will try to hold off on pain medication to get relief of her nausea. She st
[2022-10-12 06:57] LABS: Basophils Percent Auto 0.6 % (0.2-1.2); Eosinophils Absolute Auto 0.2 K/mm3 (0-0.3); Eosinophils Percent Auto 3.6 % (0-4.4); Hematocrit 35.7 % (37.0-47.0); Hemoglobin 11.1 g/dL (12.0-15.0); Immature Granulocyte Absolute 0.02 K/mm3 (0.00-0.031); Immature Granulocyte Percent A 0.4 % (0-0.5); Lymphocytes Absolute Auto 1.56 K/mm3 (0.9-3.2); Lymphocytes Percent Auto 33.1 % (18.3-44.2); Mean Corpuscular HGB Conc 31.1 g/dl (32-36); Mean Corpuscular Hemoglobin 29.1 pg (26-34); Mean Corpuscular Volume 93.5 fl (80-100); Mean Platelet Volume 10.3 fl (7.4-10.4); Monocytes Absolute Auto 0.5 K/mm3 (0.1-0.6); Monocytes Percent Auto 9.7 % (2.6-8.5); Neutrophils Absolute Auto 2.5 K/mm3 (1.3-6.7); Neutrophils Percent Auto 52.6 % (45.5-73.1); Platelet Count Result 268 k/mm3 (150-375); Red Blood Count 3.82 M/mm3 (4.2-5.4); Red Cell Distribution Width 13.8 % (11.5-14.5); White Blood Count 4.7 K/mm3 (4.5-10.0)
[2022-10-12 07:07] LABS: Anion Gap 9 mmol/L (8-16); Blood Urea Nitrogen 10 mg/dL (7-17); Calcium 8.8 mg/dL (8.4-10.2); Carbon Dioxide 24 mmol/L (22-30); Chloride 105 mmol/L (98-107); Estimated CRCL calculation 50 ml/min; Estimated Glomerular Filt Rate > 60; Glucose 90 mg/dL (65-110); Magnesium 1.6 mg/dL (1.6-2.3); Potassium 3.7 mmol/L (3.4-5.0); Sodium 138 mmol/L (137-145)
[2022-10-12] MEDS: HEPARIN SODIUM 5,000 UNITS/ML VIAL 5000 UNITS SUB-Q ×2 (09:30→20:17)
[2022-10-12] MEDS: OPTI-GEN TAB 1 TABLET PO ×2 (09:31→16:25)
[2022-10-12] MEDS: FIDAXOMICIN 200 MG TABLET PO ×2 (09:31→20:16)
[2022-10-12] MEDS: SACCHAROMYCES BOULARDII 250 MG CAPSULE PO ×3 (09:31→16:25)
[2022-10-12] MEDS: METOPROLOL SUCCINATE EXT REL 25 MG TABCR PO (09:31)
[2022-10-12 14:00] VITALS: BP 132/59; PULSE 82; RESP 16; TEMP 37.3; O2SAT 99
--- NOTE | 2022-10-12 17:25 | PM.IMPN ---
Progress Note: A&P Assessment and Plan (1) C. difficile colitis: Code(s): A04.72 - Enterocolitis due to Clostridium difficile, not specified as recurrent Status: Acute (2) Pancolitis: Code(s): K51.00 - Ulcerative (chronic) pancolitis without complications Status: Acute (3) Diarrhea: Qualifiers: Diarrhea type: unspecified type Qualified Code(s): R19.7 - Diarrhea, unspecified Code(s): R19.7 - Diarrhea, unspecified Status: Acute (4) Acute UTI: Code(s): N39.0 - Urinary tract infection, site not specified Status: Acute (5) Recurrent UTI: Code(s): N39.0 - Urinary tract infection, site not specified Status: Acute (6) Hyponatremia: Code(s): E87.1 - Hypo-osmolality and hyponatremia Status: Acute (7) Hypothyroidism: Code(s): E03.9 - Hypothyroidism, unspecified Status: Acute Plan 81-year-old female with past medical history of hypothyroidism, C diff, current, frequent UTI, urinary incontinence who presented to the ED with complaints of diarrhea.? Patient recently been treated for C diff with p.o. vancomycin.?Patient tested positive for Cdiff. 1)Acute Cdiff Colitis: Appreciate GI help c/w Dificid x 2 weeks Flagyl stopped. Off IV fluids Prior auth for dificid C/w Probiotic 2)Recurrent UTI: Urine culture positive for pseudomonas that is pansensitive c/w Levofloxacin x 1 week Will need outpatient ID follow up for recurrent UTIs 3) Hyponatremia Na 131 on admisison Now normal. Follow. 4) Hypothyroidism TSH normal in August. Continue levothyroxine DVT ppx: hep SQ Code:Full Dispo:home tomorrow Subjective Date/time seen: 10/12/22 17:25 Interval history: Assuming care. Chart reviewed. No longer having diarrhea. She is having some loose stools. Walking to the bathroom. Exam Narrative: AF 99.1 132/59 82 16 99% ra General: well-nourished, well-appearing, Neuro: awake, alert and oriented x4, speech clear, FROST HEENMT: normocephalic, atraumatic, EOMI, sclerae anicteric Respiratory: Clear to auscultation bilaterally Cardio: regular rate, regular rhythm with S1-S2 Abdomen: nondistended, normoactive bowel sounds, soft, nontender to palpation Extremities: no pedal edema Skin: no rashes or lesions, warm and dry Psych: no distress Objective Data Vital Signs Vital Signs: Vital Signs - 24 hr 10/11/22 21:00 10/11/22 22:12 10/12/22 05:27 Temperature 97.1 F L 97.9 F Pulse Rate 65 66 Respiratory Rate 16 16 Blood Pressure 146/77 H 135/62 Pulse Oximetry 94 95 99 Oxygen Delivery Room Air 10/12/22 08:00 10/12/22 14:00 Temperature 99.1 F Pulse Rate 82 Respiratory Rate 16 Blood Pressure 132/59 L Pulse Oximetry 99 Oxygen Delivery Room Air Intake/Output Intake/Output: Intake & Output 10/09/22 10/10/22 10/11/22 10/12/22 23:59 23:59 23:59 23:59 Intake Total 2598 3800 350 1120 Output Total 700 2800 1425 1150 Balance 1898 1000 -1075 -30 Meds/Results Medications: Active Medications Generic Name Dose Route Start Last Admin Trade Name Freq PRN Reason Stop Dose Admin Acetaminophen 650 mg 10/09/22 05:09 Acetaminophen 325 Mg Tablet PO Q4H PRN Mild Pain (1-3) or Fever Hydrocodone Bitart/Acetaminophen 1 tab 10/09/22 08:19 10/11/22 11:30 Hydrocodone/Acetaminophen (*Crx) 5-325 Mg Tablet PO 1 tab Q4H PRN Administration Moderate Pain (4-10) Fidaxomicin 200 mg 10/09/22 21:00 10/12/22 09:31 Fidaxomicin 200 Mg Tablet PO 10/23/22 09:01 200 mg Q12HR HUSSEIN Administration Heparin Sodium (Porcine) 5,000 units 10/10/22 21:00 10/12/22 09:30 Heparin Sodium 5,000 Units/Ml Vial SUB-Q 5,000 units Q12HR HUSSEIN Administration Levofloxacin 750 mg 10/13/22 09:00 Levofloxacin 750 Mg Tablet PO 10/15/22 09:01 DAILY HUSSEIN Levothyroxine Sodium 25 mcg 10/11/22 06:30 10/12/22 06:00 Levothyroxine Sodium 25 Mcg Tablet PO 25 mcg MAGGIE
[2022-10-12 20:20] VITALS: BP 129/91; PULSE 73; RESP 16; TEMP 36.9; O2SAT 99
[2022-10-13] MEDS: LEVOTHYROXINE SODIUM 25 MCG TABLET PO (06:07)
[2022-10-13 06:15] VITALS: BP 125/65; PULSE 68; RESP 16; TEMP 36.3; O2SAT 97
--- NOTE | 2022-10-13 07:24 | WPDGIPROGNO ---
Progress Note: A&P Assessment and Plan (1) Pancolitis: Code(s): K51.00 - Ulcerative (chronic) pancolitis without complications Status: Acute Assessment and Plan: she has seen a slab installer in [place] who had consider colonoscopy but the patient was reluctant, as she has knon patients who have had poor outcomes from the procedure. Now that the C diff has come back positive, I told her that it is unlikely she will need a colonoscopy as I am fairly certain her colitis is due to the infection, though of course she will need follow-up. 10/12/2022 she has many questions but mostly it is her concern about how and when she will be read of C difficile and more importantly, however prevent it from staff attorney because she has had to have so many courses of antibiotics for UTIs. (2) Diarrhea: Qualifiers: Diarrhea type: unspecified type Qualified Code(s): R19.7 - Diarrhea, unspecified Code(s): R19.7 - Diarrhea, unspecified Status: Acute Assessment and Plan: she states her stools are not watery but are very thin and soft. She also has discomfort in the rectum being sore from having so many bowel movements. She passes stool every time she sits down to urinate. She has not seen blood her stools throughout this past 2 months. If she is negative for C diff , then we will proceed with colonoscopy this admission. C diff is positive. That explains her diarrhea. Stools have returned to normal or close to normal consistency. (3) C. difficile colitis: Code(s): A04.72 - Enterocolitis due to Clostridium difficile, not specified as recurrent Status: Acute Assessment and Plan: she has just recently completed her 10 day course of vancomycin which was started when she was recently hospitalized and found to have C diff colitis. this is apparently her 1st episode of C difficile colitis. Her stools are less watery now but still informed her I started her last night on Dificid when C diff came back positive. I explained her that she will need to take this as an outpatient and it is expensive and therefore we will need to try to get prior authorization for that. Hopefully her insurance will cover it. Most C diff strains are resistant to vancomycin now. Because she has recurrent urinary tract infections I told her that we will keep her on Florastor to help reduce the recurrence. (4) Recurrent UTI: Code(s): N39.0 - Urinary tract infection, site not specified Status: Acute Assessment and Plan: Rohini spoke at length about her troubling recurrent urinary tract infections that she began having after her bladder suspension by a urogynecologist. That physician could not offer any more help and referred her to urology a [place]. She saw several physicians there and nurse practitioners. Dr. Rodriguez has not been able to help eliminate the recurrences and he referred her to infectious disease specialist at [facility]. Nevertheless, she continues to have these infections and this will be a continuing risk for her having recurrent C diff. she is considering going to [place] where she has family and getting therapy at [facility] she is asking for referral to another urologist. I told her that I do not have any particular name of somebody who may do better than her previous urologist. She has an appointment with her primary care physician next Sunday and I suggested that she discuss that with him. (5) Nausea and vomiting: Code(s): R11.2 - Nausea with vomiting, unspecified Status: Acute Assessment and Plan: the last 24 hour she has not been able to eat particularly the this afternoon because of tense fine and worsening nausea. She is also burping excessively. I think that her pain medication could be a factor. She also has been receiving intravenous Flagyl which I will discontinue. She states that she would rather put up with some pain then be na
[2022-10-13 08:01] LABS: Glucose Point of Care 90 mg/dl (65-105)
[2022-10-13] MEDS: OPTI-GEN TAB 1 TABLET PO (09:13)
[2022-10-13] MEDS: FIDAXOMICIN 200 MG TABLET PO (09:14)
[2022-10-13] MEDS: METOPROLOL SUCCINATE EXT REL 25 MG TABCR PO (09:14)
[2022-10-13] MEDS: levoFLOXacin 750 MG TABLET PO (09:14)
[2022-10-13] MEDS: SACCHAROMYCES BOULARDII 250 MG CAPSULE PO ×2 (09:14→12:25)
[2022-10-13] MEDS: HEPARIN SODIUM 5,000 UNITS/ML VIAL 5000 UNITS SUB-Q (09:14)
--- NOTE | 2022-10-13 11:42 | PM.DS ---
DS: Admitting Diagnosis Discharge Date 10/13/22 Admitting Diagnosis Diarrhea DS: Discharge Diagnosis Discharge Diagnosis (1) C. difficile colitis: Code(s): A04.72 - Enterocolitis due to Clostridium difficile, not specified as recurrent Status: Acute (2) Pancolitis: Code(s): K51.00 - Ulcerative (chronic) pancolitis without complications Status: Acute (3) Diarrhea: Qualifiers: Diarrhea type: unspecified type Qualified Code(s): R19.7 - Diarrhea, unspecified Code(s): R19.7 - Diarrhea, unspecified Status: Acute (4) Acute UTI: Code(s): N39.0 - Urinary tract infection, site not specified Status: Acute (5) Recurrent UTI: Code(s): N39.0 - Urinary tract infection, site not specified Status: Acute (6) Hyponatremia: Code(s): E87.1 - Hypo-osmolality and hyponatremia Status: Acute (7) Hypothyroidism: Code(s): E03.9 - Hypothyroidism, unspecified Status: Acute DS: Summary Hospital Course Reason for hospitalization: 81-year-old female with past medical history of hypothyroidism, recent C diff, frequent UTI, urinary incontinence who presented to the ED with complaints of diarrhea.? Please see H&P for details. Hospital Course: patient presents with diarrhea.? Patient recently been treated for C diff with p.o. vancomycin.?Patient tested positive for Cdiff here. WBC remained normal. She was started on Dificid. GI consulted and appreciate their input. CT Abd/pelvis showing proable diffuse large bowel wall thickening with mild diffuse pericolonic inflammatory changes c/w pancolitis. Dificid was authorized with plans for 2 week treatment. Probiotic added. CT scan also with diffuse urinary bladder wall thickening c/w cystitis. UA noted and UCx positive for pseudomonas that was pansensitive. Plan for Levofloxacin x 1 week. She will need outpatient ID follow up for recurrent UTIs. Sodium was 131 on admission that normalized. Diarrhea resolved and now having normal BMs. She overall did well and was able to be discharged home on 10/13/22. Status at Discharge Cognitive/behavioral status at discharge: Stable Time Spent with Patient Time attestation: Total time spent providing and/or coordinating discharge services: 35 minutes Time spent: Greater than 30 minutes Exam Narrative: AF 97.4 125/65 68 16 97% ra Gen - NARD Chest - CTA bilaterally, nml RR CV - RRR S1/S2 Abd - Soft, NT/ND, Positive BS Ext - No pedal edema Neuro - Alert and oriented. Nonfocal exam. Psych - Nml mood and affect Skin - Warm and dry DS: Data Data Completed and Pending Labs on day of discharge: Labs from last 24 hours 10/13/22 07:52 POC Capillary Glucose 90 Preliminary micro results at discharge 10/09/22 00:13 Urine Culture - Preliminary Unspecified Pseudomonas aeruginosa 10/09/22 08:50 Blood Culture - Preliminary Blood 10/09/22 08:50 Blood Culture - Preliminary Blood Discharge Plan Discharge Attending physician on discharge: Sarwat Restrepo Consulting providers: Esau Mckinney Discharging Clinician: Sarwat Restrepo Anticipated Discharge Date/Time: 10/13/22 11:51 Patient Disposition: Home, Self-Care Activity: as tolerated Diet: regular Discharge Instructions: Please complete your antibiotic course even if you are starting to feel well. Take precautions to avoid falls. Rise slowly from a lying or sitting position. Pause before standing or walking. Contact your doctor or call 911 and come to the Emergency Room if you have recurrent diarrhea, increasing abdominal pain, fever or other worrisome symptoms. Avoid NSAIDs (ibuprofen, naproxen, Aleve). Tylenol is safe to take. Follow-up with your primary care provider in 1-2 weeks. Please call for appointment. Follow-up with GI (Dr Mckinney) in 3 weeks. Please call for an appointment. Follow-up with your Infectious Disease doctor at next sc
--- NOTE | 2022-10-13 12:47 | PCNFU ---
Nutrition Follow-Up Complete: Suboptimal po intake related to reduced appetite as evidenced by charted intake Goal: PO intake 50% or greater for meals and supplements - Meeting goal Pt current nutrition is Heart healthy diet, intakes 50-100% since yesterday. Banatrol BID for c-diff diarrhea. Nutrition recommendation: Continue current nutrition care plan. Agree with orders. Last recorded weight is 72.7 kg. Bowel Motility: Last BM +1 yesterday 10/12/22 Labs Reviewed: Hgb 11.1, Hct 35.7 Meds Noted: Zofran Skin: WNL Additional Notes: Pt is being discharged. Says she is feeling much better. Wants to get a hamburger on the way home. Agree with current orders. Monitor intake, wt, labs. Follow up in 5 days.
[2022-10-17 01:07] LABS: ANCA Screen Negative (Negative); Myeloperoxidase Ab <1.0 AI (<1.0); Proteinase-3 Ab <1.0 AI (<1.0); S cerevisiae Ab (IgA) 8.5 U (<=20.0); S cerevisiae Ab (IgG) 11.8 U (<=20.0)
--- NOTE | 2022-10-20 08:05 | PC.NURSE ---
IBD panel is normal. Dr. Lauro amaya.
== END 2022-10-13 13:37 | disposition home or self-care (01) | DRG 372 ==
LOC: ANHED 10-09 05:14 → ANH3MEDSUR 10-09 05:23
PROVIDERS: Internal Medicine; Internal Medicine Gastroenterology; Nurse Practitioner; Admitting Provider Internal Medicine; Emergency Provider Emergency Medicine; PCP Family Medicine; Visit Provider Internal Medicine
DX: A04.72 Enterocolitis due to Clostridium difficile, not specified as recurrent (principal); E87.1 Hypo-osmolality and hyponatremia; K51.00 Ulcerative (chronic) pancolitis without complications; N39.0 Urinary tract infection, site not specified; B96.5 Pseudomonas (aeruginosa) (mallei) (pseudomallei) as the cause of diseases classified elsewhere; E03.9 Hypothyroidism, unspecified; M17.11 Unilateral primary osteoarthritis, right knee; R32 Unspecified urinary incontinence; I48.91 Unspecified atrial fibrillation; E78.5 Hyperlipidemia, unspecified; M81.0 Age-related osteoporosis without current pathological fracture; Z66 Do not resuscitate; Z86.16 Personal history of COVID-19
CPT/HCPCS: 36415; 74177; 80048; 80053; 81001; 82948; 83605; 83690; 83735; 85025; 86036; 86671; 87040; 87045; 87077; 87086; 87186; 87427; 87449; 87493; 93005; 96361; 96365; 96366; 96367; 96375; 99285; A9270; G0378; J1644; J1836; J1956; J2270; J2405; J2765; J3475; J7030; Q9967

== ENCOUNTER → 2022-11-21 10:00 | Outpatient (CLI) | payer MEDICARE, SELFPAY ==
--- NOTE | ~2022-11-21 | MR_ITS ---
MRI of the lumbar spine Clinical History: Spondylosis Technique: Axial T2-weighted images, and sagittal T1-weighted, T2-weighted, and and T2 fat-sat images were acquired. COMPARISON: 01/13/2019 Findings: No fracture identified. There is 8 mm anterolisthesis of L4 over L5. There is minimal grade 1 retrolisthesis of L1 over L2. There are reactive marrow signal changes due to degenerative disc di sease, particularly at the L1-L2 and L4-L5 disc spaces. At L1-L2, there is severe degenerative disc narrowing. There is mild disc bulge and moderate facet ar thropathy. No central canal stenosis. There is moderate to severe left neural foraminal narrowing. At L2-L3, there is severe degenerative disc narrowing. There is mild disc bulge and moderate to sever e facet arthropathy. No central canal stenosis. There is mild left neural foraminal narrowing. At L3-L4, there is advanced degenerative disc narrowing. There is mild disc bulge with moderate to ad vanced facet arthropathy. No central canal stenosis. There is mild to moderate right neural foraminal narrowing. At L4-L5, there is degenerative disc narrowing. There is diffuse disc bulge/uncovering with severe fa cet arthropathy, and mild central canal stenosis. There is moderate left neural foraminal narrowing, and severe right neural foraminal narrowing. At L5-S1, there is severe degenerative narrowing. There is moderate facet arthropathy. No significant disc bulge. No central canal stenosis. There is probable mild right neural foraminal narrowing. Paravertebral soft tissues are unremarkable. Impression: 8 mm anterolisthesis of L4 over L5. Minimal grade 1 retrolisthesis of L1 over L2. Moderate to advanced degenerative spondylosis, as detailed above, worst at L4-L5. Reviewed, dictated and finalized at location . Impression: 8 mm anterolisthesis of L4 over L5. Minimal grade 1 retrolisthesis of L1 over L2. Moderate to advanced degenerative spondylosis, as detailed above, worst at L4-L 5.
== END ==
PROVIDERS: PCP Family Medicine; Visit Provider Family Medicine
DX: M47.816 Spondylosis without myelopathy or radiculopathy, lumbar region (principal); M43.16 Spondylolisthesis, lumbar region
CPT/HCPCS: 72148

== ENCOUNTER 2023-01-23 09:47 | Outpatient (RCR) | payer MEDICARE, SELFPAY ==
--- NOTE | 2023-01-23 11:03 | OPREHPOC ---
Outpatient Therapy Plan of Care This is a Multidisciplinary Plan of Care that may contain components documented by all disciplines (PT, OT, and ST.) PT Problem 1 PT Problem #1 Knowledge Deficit PT Goal 1 Goal 1. Patient will perform independent HEP Target Visit 5 PT Problem 2 PT Problem #2 Pain PT Goal 1 Goal 1. Patient will report no pain with pelvic floor palpation 2. Patient will report pain no higher than 2/10 with walking activities 3. Patient will have no UTI for at least 1 month Target Visit 5 PT Goal 1 Goal 1. Improve hip strength to 4/5 in all tested planes to decrease difficulty walking 2. Improve pelvic floor strength to 3/5 to decrease incontinence Target Visit 5
--- NOTE | 2023-01-23 11:03 | PTOPEVAL1 ---
Assessment and note entered by Samia Marshall DPT Evaluation Information Assessment Status Evaluation Subjective Information Pt has a history of chronic UTI's and has attended prior pelvic floor PT. Has recently just started seeing Dr. Melgar. States she has been given her 4th antibiotic recently for the same infection. Has had her urine cultured multiple times. Highest pain 10/10 and lowest 3/10. Pain is located in her low back (also reports pinched nerve and is seeing a chiropractor) and also has pain with voiding. States she has not been able to do the full testing through Dr. Melgar until the infection is cleared. Difficulty walking due to the pain. Doing her normal activities at home but is not able to get on her knees to do deep cleaning. Voiding every 2 hours during the day ( more with onset of UTI). Voids 4 times at night and wears diapers, gets incontinence multiple times at night. Can hold urge to void very short amounts of time. Some incontinence during the day as well. BM once a day, generally no pain but sometimes straining recently. Denies fecal incontinence. Has had pain with recent pelvic exams. Pt has been 2 times, vaginal deliveries without complications. Pt had a hysterectomy and bladder lift . Patient goal: stop having UTI's, avoid getting C diff again Reported Pain Level Pain Score 3: Self Report Assessment PT Clinical Summary The patient is presenting to skilled therapy with pelvic and low back pain and chronic UTI's. She also reports daily urinary incontinence. She presents with decreased core, LE, and pelvic floor strength, and pain with palpation of pelvic floor musculature which are contributing to her pain and difficulty with activities like walking. She will highly benefit from skilled therapy to address these impairments in order to reduce pain, reduce incontinence, and return to full function. Plan of Care Interventions Electrical Stimulation,Gait Training,Hot Pack/Cold Pack,Manual Therapy,Neuro Re-education,Patient/ Caregiver Education,Therapeutic Activities, Therapeutic Exercise PT Services Indicated Yes Treatment Frequency and 1 time a week for 4 visits Duration These treatments will address the objective and functional deficits as
--- NOTE | 2023-02-07 14:51 | PCPTNOTE ---
Patient called to cancel appointment for 02/08/23 due to illness.
--- NOTE | 2023-02-13 08:50 | PCPTNOTE ---
Patient called to cancel appointment 02/13/23 due to illness.
--- NOTE | 2023-02-20 15:02 | PTOPDC ---
Assessment and note entered by Samia Marshall DPT Evaluation Information Assessment Status Discharge - Pt Not Present Subjective Information - Assessment PT Clinical Summary Pt is self discharging due to health issues at this time. Plans to follow up with a new script after the new year. Plan of Care PT Services Indicated No
== END 2023-02-20 15:12 | disposition home or self-care (01) ==
LOC: ANHPT 09:47
PROVIDERS: PCP Family Medicine
DX: M62.89 Other specified disorders of muscle (principal)
CPT/HCPCS: 97110; 97163

== ENCOUNTER 2023-02-16 18:57 | Emergency (ER) | payer MEDICARE, SELFPAY ==
--- NOTE | ~2023-02-16 | XR_ITS ---
EXAMINATION: XR chest 1V portable DATE: 02/16/2023 19:35 INDICATION: Chest pain. TECHNIQUE: A single frontal view of the chest was obtained. COMPARISON: Chest single view 03/01/2022 FINDINGS: There is no pneumonia, pleural effusion, or pneumothorax. The heart size is normal. IMPRESSION: 1. No acute cardiopulmonary disease. Reviewed, dictated and finalized at location E. OR PROGRAMMER ANALYST
--- NOTE | 2023-02-16 18:58 | ECG_ITS ---
Measurements Intervals [place] Rate: 129 P: 25 TX: 154 QRS: -5 QRSD: 92 T: 48 QT: 309 QTc: 454 Interpretive Statements SINUS TACHYCARDIA WITH FREQUENT VENTRICULAR PREMATURE COMPLEXES WITH FREQUENT SUPRAVENTRICULAR PREMATURE COMPLEXES VOLTAGE CRITERIA FOR LVH, CONSIDER NORMAL VARIANT Electronically Signed On 02-18-2023 10:14:43 HARVEST FIELD TICKETER by Jonathan Stern M.D.
[2023-02-16 19:02] VITALS: BP 139/102; PULSE 176; RESP 22; TEMP 36.6; O2SAT 96
[2023-02-16 19:10] VITALS: PULSE 158
[2023-02-16 19:11] VITALS: BP 100/79; PULSE 158
[2023-02-16 19:15] VITALS: BP 114/100; PULSE 155; RESP 22; O2SAT 98
--- NOTE | 2023-02-16 19:17 | ECG_ITS ---
Measurements Intervals [place] Rate: 157 P: [place]: 0 QRS: 54 QRSD: 85 T: 89 QT: 279 QTc: 451 Interpretive Statements ATRIAL FLUTTER/TACHYCARDIA WITH RAPID VENTRICULAR RESPONSE LOW QRS VOLTAGE IN PRECORDIAL LEADS Electronically Signed On 02-18-2023 10:15:14 OPERATIONS ACCOUNTANT by Jonathan Stern M.D.
[2023-02-16] MEDS: dilTIAZem HCl INJ 25 MG/5 ML VIAL 10 MG IV PUSH (19:23)
[2023-02-16] MEDS: SODIUM CHLORIDE 0.9% IV 1,000 ML 999 ML IV CONT (19:23)
[2023-02-16] MEDS: ASPIRIN 81 MG CHEWABLE TABLET 324 MG PO (19:25)
[2023-02-16 19:31] LABS: Basophils Percent Auto 0.6 % (0.2-1.2); Eosinophils Absolute Auto 0.1 K/mm3 (0-0.3); Eosinophils Percent Auto 1.4 % (0-4.4); Hemoglobin 12.3 g/dL (12.0-15.0); Immature Granulocyte Absolute 0.02 K/mm3 (0.00-0.031); Immature Granulocyte Percent A 0.3 % (0-0.5); Lymphocytes Absolute Auto 2.51 K/mm3 (0.9-3.2); Lymphocytes Percent Auto 38.6 % (18.3-44.2); Mean Corpuscular HGB Conc 31.5 g/dl (32-36); Mean Platelet Volume 10.3 fl (7.4-10.4); Monocytes Absolute Auto 0.9 K/mm3 (0.1-0.6); Monocytes Percent Auto 13.1 % (2.6-8.5); Platelet Count Result 251 k/mm3 (150-375); Red Blood Count 4.24 M/mm3 (4.2-5.4); Red Cell Distribution Width 13.1 % (11.5-14.5); White Blood Count 6.5 K/mm3 (4.5-10.0)
--- NOTE | 2023-02-16 19:33 | PC.NURSE ---
Patient came into room and HR was in the 150s-160s. EDP Dr. Gooden notified and verbally ordered to place patient on the cardiac pads, 2 large bore IVs, 1,000mL normal saline, and draw of 6mg of Adenosine. Upon another EKG EDP Dr. Gooden determined that the cardiac rhythm was Afib with RVR. Dr. Gooden verbally cancelled the 6mg Adenosine and ordered 10mg of Cardizem. Once patient received Cardizem the patients rythm converted to normal sinus and heart rate went down into the 70s-80s.
--- NOTE | 2023-02-16 19:36 | PC.NURSE ---
EDP Dr. Gooden verbally ordered to cancel all troponin blood tests.
[2023-02-16 19:37] VITALS: BP 118/73; PULSE 77; RESP 19; TEMP 37.1; O2SAT 99
[2023-02-16 19:37] LABS: Alanine Aminotransferase 17 U/L (6-35); Albumin Level 3.9 g/dL (3.5-5.1); Alkaline Phosphatase 94 U/L (38-126); Anion Gap 9 mmol/L (8-16); Aspartate Amino Transferase 29 U/L (14-36); Bilirubin,Total 0.4 mg/dL (0.2-1.3); Blood Urea Nitrogen 30 mg/dL (7-17); Calcium 9.3 mg/dL (8.4-10.2); Carbon Dioxide 26 mmol/L (22-30); Chloride 104 mmol/L (98-107); Estimated CRCL calculation 44 ml/min; Estimated Glomerular Filt Rate > 60; Glucose 123 mg/dL (65-110); Lipase 127 U/L (23-300); Sodium 139 mmol/L (137-145)
[2023-02-16 19:47] LABS: INR 1.2; Prothrombin Time 15.8 Seconds (11.1-14.7)
[2023-02-16] MEDS: guaiFENesin/DEXTROMETHORPHAN 10 ML UDC PO (20:11)
[2023-02-16] MEDS: APIXABAN 5 MG TABLET PO (20:11)
--- NOTE | 2023-02-16 20:33 | ED.GENADULT ---
HPI - General Adult General Chief complaint: Arrhythmia/Palpitations Stated complaint: rapid heart rate Time Seen by Provider: 02/16/23 19:09 History of Present Illness HPI narrative: This is an 82-year-old female with a history of AFib 1 year ago presenting with palpitations. Patient states she got into her argument some family. She then started of palpitations a chest pressure in the center of her chest. It is nonradiating 4 out 10 intensity and improving. Patient notes she has had a cough lately. No fever chills nausea vomiting diarrhea diaphoresis shortness. Related Data Home Medications Medication Instructions Recorded Confirmed vitamins A,C,B-htdo-xiuhla 4,296 1 cap PO BID 10/15/19 12/26/22 mcg-226 mg-90 mg capsule (PreserVision AREDS) aspirin 81 mg chewable tablet 81 mg PO HS 09/22/22 12/26/22 (Eddie Chewable Low Dose Aspirin) Allergies Allergy/AdvReac Type Severity Reaction Status Date / Time prednisone Allergy Unknown Unknown Verified 12/26/22 10:10 clavulanic acid Allergy Rash Verified 12/26/22 10:10 [From Augmentin] FOR[facility] Past Medical History Medical History Atrial fibrillation with rapid ventricular response BMI 27.0-27.9,adult BMI 28.0-28.9,adult BMI 29.0-29.9,adult BMI 30.0-30.9,adult Cataract, right eye Colitis Confusion COVID-30 March 2021 Diverticulitis ETD (eustachian tube dysfunction) GERD (gastroesophageal reflux disease) Hematuria Hyperlipidemia Hypothyroidism Impacted cerumen of both ears Interstitial cystitis (chronic) with hematuria Lumbar spondylosis Osteoarthritis of right knee Osteoporosis Otitis media Perforation of right tympanic membrane Persistent cough Recurrent UTI (urinary tract infection) Screen for colon cancer Screening for breast cancer Screening for thyroid disorder UTI (urinary tract infection) Vitamin D deficiency Surgical History Surgical History History of bladder surgery Family History Family History Father Acute myocardial infarction Heart disease Mother Alcohol abuse Tobacco abuse Cancer Sibling Skin cancer Sibling Breast cancer Grandparent Heart disease Grandparent Heart disease Social History Social History Social History: patient is a she has two kids. Her daughter Nisa is her surrogate. She wishes to be DNR. 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 Head: atraumatic. EYES: EOMI, NOSE: Atraumatic NECK: Trachea midline RESPIRATORY: No increased rate of breathing, clear to auscultation CARDIOVASCULAR: Tachycardic, regular, no peripheral edema ABDOMINAL: Non-distended soft nontender MUSCULOSKELETAl: No obvious deformities NEURO: Alert. Moving 4/4 extremities SKIN:: Warm, dry. Normal color PSYCHIATRIC: Normal affect Course Vital Signs Vital signs: Vital Signs Temperature 97.9 F 02/16/23 19:02 Pulse Rate 176 H 1
[2023-02-16 20:43] LABS: Influenza A QL RT-PCR Negative (Negative); Influenza B QL RT-PCR Negative (Negative); RSV RNA, RT-PCR Negative (Negative); SARS-CoV-2 RNA PCR Negative (Negative)
[2023-02-16 21:20] VITALS: BP 109/67; PULSE 83; RESP 14; TEMP 36.4; O2SAT 98
== END 2023-02-16 21:21 | disposition home or self-care (01) ==
PROVIDERS: Student in an Organized Health Care Education/Training Program; Emergency Provider Emergency Medicine; PCP Family Medicine
DX: I48.0 Paroxysmal atrial fibrillation (principal); R05.9 Cough, unspecified; Z20.822 Contact with and (suspected) exposure to COVID-19; E78.5 Hyperlipidemia, unspecified; E03.9 Hypothyroidism, unspecified; E55.9 Vitamin D deficiency, unspecified; K21.9 Gastro-esophageal reflux disease without esophagitis; M81.0 Age-related osteoporosis without current pathological fracture; M17.11 Unilateral primary osteoarthritis, right knee; Z86.16 Personal history of COVID-19; Z87.440 Personal history of urinary (tract) infections; Z77.22 Contact with and (suspected) exposure to environmental tobacco smoke (acute) (chronic); Z79.82 Long term (current) use of aspirin; I49.3 Ventricular premature depolarization; R00.0 Tachycardia, unspecified
CPT/HCPCS: 36415; 71045; 80053; 83690; 85025; 85610; 85730; 87637; 93005; 96361; 96374; 99284; A9270; J7030

== ENCOUNTER 2023-03-01 20:20 | Observation (INO) | payer MEDICARE, SELFPAY ==
--- NOTE | ~2023-03-01 | XR_ITS ---
EXAMINATION: XR chest 1V portable Exam Date/Time: 03/01/2023 22:05 PORTABLE IRRIGATION OPERATOR HISTORY: chest pressure AND PALPITATIONS X 1 DAY Comparison: 02/16/2023. RESULT: Lines, tubes, and devices: None. Lungs and pleura: Senescent change, otherwise clear. Cardiomediastinal silhouette: Stable. Other: No acute osseous or upper abdominal finding. IMPRESSION: No acute cardiopulmonary process. Reviewed, dictated and finalized at location K. ABLE IRRIGATION OPERATOR
--- NOTE | 2023-03-01 20:23 | ECG_ITS ---
Measurements Intervals [place] Rate: 134 P: [place]: 0 QRS: -18 QRSD: 74 T: 35 QT: 300 QTc: 449 Interpretive Statements ATRIAL FIBRILLATION WITH RAPID VENTRICULAR RESPONSE WITH ABERRANT CONDUCTION OR VENTRICULAR PREMATURE COMPLEXES NONSPECIFIC ST & T-WAVE ABNORMALITY ABNORMAL RHYTHM ECG COMPARED TO ECG 02/16/2023 19:17:48 ATRIAL FIBRILLATION NOW PRESENT Electronically Signed On 03-02-2023 15:01:43 BROWN SOURER by Siddharth Jennings M.D.
[2023-03-01 20:32] VITALS: BP 111/73; PULSE 136; RESP 16; TEMP 36.8; O2SAT 95
--- NOTE | 2023-03-01 21:04 | ED.ARRPALP ---
HPI - Arrhythmia/Palpitations General Chief Complaint: Arrhythmia/Palpitations Stated Complaint: palpations Time Seen by Provider: 03/01/23 20:56 History of Present Illness HPI narrative: 82-year-old female with history paroxysmal atrial fibrillation presented to the ED for evaluation of heart palpitations. Patient had an episode of AFib on the of this month that was resolved in the emergency department. Patient states that she felt at about 5:00 p.m. today she went back into atrial fibrillation. Patient does take metoprolol and contacted her senior manufacturing engineer and was advised to take a 2nd metoprolol. Patient states that her rapid heart rate has persisted. At home patient reports her heart rate was running approximate 190. Emergency department today patient is heart rate in the 140s. Patient was complaining some intermittent chest tightness and pressure. Related Data Home Medications Medication Instructions Recorded Confirmed vitamins A,C,P-wmdm-fksdhw 4,296 1 cap PO BID 10/15/19 12/26/22 mcg-226 mg-90 mg capsule (PreserVision AREDS) aspirin 81 mg chewable tablet 81 mg PO HS 09/22/22 12/26/22 (Eddie Chewable Low Dose Aspirin) Allergies Allergy/AdvReac Type Severity Reaction Status Date / Time prednisone Allergy Unknown Unknown Verified 03/01/23 20:35 clavulanic acid Allergy Rash Verified 03/01/23 20:35 [From Augmentin] Review of Systems Review of Systems: All systems reviewed & are unremarkable except as noted in HPI and below PMFSH Past Medical History Medical History (Updated 03/02/23 @ 01:27 by Zulema George MD) Atrial fibrillation with rapid ventricular response BMI 27.0-27.9,adult BMI 28.0-28.9,adult BMI 29.0-29.9,adult BMI 30.0-30.9,adult Cataract, right eye Colitis Confusion COVID-30 March 2021 Diverticulitis ETD (eustachian tube dysfunction) GERD (gastroesophageal reflux disease) Hematuria Hyperlipidemia Hypothyroidism Impacted cerumen of both ears Interstitial cystitis (chronic) with hematuria Lumbar spondylosis Osteoarthritis of right knee Osteoporosis Otitis media Perforation of right tympanic membrane Persistent cough Recurrent UTI (urinary tract infection) Screen for colon cancer Screening for breast cancer Screening for thyroid disorder UTI (urinary tract infection) Vitamin D deficiency Surgical History Surgical History History of bladder surgery Family History Family History Father Acute myocardial infarction Heart disease Mother Alcohol abuse Tobacco abuse Cancer Sibling Skin cancer Sibling Breast cancer Grandparent Heart disease Grandparent Heart disease Social History Social History Social History: patient is a she has two kids. Her daughter Nisa is her surrogate. She wishes to be DNR. 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 HEAD: normocephalic, atraumatic. EYES: PERRLA/
[2023-03-01] MEDS: SODIUM CHLORIDE 0.9% IV 500 ML 999 ML IV CONT (21:08)
[2023-03-01 21:09] VITALS: PULSE 134
[2023-03-01] MEDS: METOPROLOL TARTRATE INJ 5 MG/5 ML VIAL IV PUSH (21:09)
[2023-03-01 21:16] VITALS: PULSE 132
[2023-03-01 21:17] VITALS: BP 106/75; PULSE 142; RESP 24; TEMP 36.4; O2SAT 94
[2023-03-01 21:20] LABS: Basophils Absolute Auto 0.1 K/mm3 (0.0-0.1); Basophils Percent Auto 0.7 % (0.2-1.2); Eosinophils Absolute Auto 0.2 K/mm3 (0-0.3); Eosinophils Percent Auto 2.6 % (0-4.4); Hematocrit 38.9 % (37.0-47.0); Immature Granulocyte Absolute 0.01 K/mm3 (0.00-0.031); Immature Granulocyte Percent A 0.1 % (0-0.5); Lymphocytes Absolute Auto 2.66 K/mm3 (0.9-3.2); Lymphocytes Percent Auto 39.1 % (18.3-44.2); Mean Corpuscular HGB Conc 30.8 g/dl (32-36); Mean Corpuscular Hemoglobin 29.1 pg (26-34); Mean Corpuscular Volume 94.2 fl (80-100); Mean Platelet Volume 10.5 fl (7.4-10.4); Monocytes Absolute Auto 0.7 K/mm3 (0.1-0.6); Monocytes Percent Auto 10.4 % (2.6-8.5); Neutrophils Absolute Auto 3.2 K/mm3 (1.3-6.7); Neutrophils Percent Auto 47.1 % (45.5-73.1); Platelet Count Result 206 k/mm3 (150-375); Red Blood Count 4.13 M/mm3 (4.2-5.4); Red Cell Distribution Width 13.4 % (11.5-14.5); White Blood Count 6.8 K/mm3 (4.5-10.0)
[2023-03-01] MEDS: dilTIAZem HCl INJ 25 MG/5 ML VIAL 10 MG IV PUSH (21:28)
[2023-03-01 21:31] LABS: Alanine Aminotransferase 19 U/L (6-35); Albumin Level 3.9 g/dL (3.5-5.1); Alkaline Phosphatase 121 U/L (38-126); Anion Gap 7 mmol/L (8-16); Aspartate Amino Transferase 32 U/L (14-36); Bilirubin,Total 0.3 mg/dL (0.2-1.3); Blood Urea Nitrogen 33 mg/dL (7-17); Calcium 9.4 mg/dL (8.4-10.2); Carbon Dioxide 24 mmol/L (22-30); Chloride 109 mmol/L (98-107); Estimated CRCL calculation 43 ml/min; Estimated Glomerular Filt Rate > 60; Glucose 120 mg/dL (65-110); Magnesium 1.8 mg/dL (1.6-2.3); Potassium 3.8 mmol/L (3.4-5.0); Sodium 140 mmol/L (137-145)
[2023-03-01 21:42] VITALS: BP 109/58; PULSE 78; PULSE 85
[2023-03-01 21:43] VITALS: BP 109/58; PULSE 71; RESP 19; O2SAT 97
[2023-03-01 21:43] LABS: Troponin I < 0.012 ng/mL (0.000-0.034)
[2023-03-01] MEDS: MAGNESIUM SULF 1 GM/D5W 100 ML 1 GM/100 ML BAG IVPB (21:53)
[2023-03-01 21:56] LABS: Influenza A QL RT-PCR Negative (Negative); Influenza B QL RT-PCR Negative (Negative); RSV RNA, RT-PCR Negative (Negative); SARS-CoV-2 RNA PCR Negative (Negative)
--- NOTE | 2023-03-01 23:19 | ECG_ITS ---
Measurements Intervals [place] Rate: 76 P: 8 [place]: 166 QRS: -11 QRSD: 87 T: 30 QT: 392 QTc: 441 Interpretive Statements SINUS RHYTHM COMPARED TO ECG NORMAL ELECTROCARDIOGRAM 03/01/2023 20:50:46 SINUS RHYTHM HAS REPLACED ATRIAL FIBRILLATION Electronically Signed On 03-02-2023 15:07:18 PUBLIC RELATIONS SUPERVISOR by Siddharth Jennings M.D.
[2023-03-02] VITALS (17 sets, daily range): BP systolic 116–152; BP diastolic 59–94; PULSE 57–81; RESP 13–18; TEMP 36.3–36.9; O2SAT 96–100; BMI 27.7
--- NOTE | 2023-03-02 00:01 | PM.IMHP ---
H&P: HPI History of Present Illness Date/Time: 03/02/23 00:01 Chief Complaint: Palpitations Narrative: This is an 82-year-old female with past medical history significant for atrial fibrillation, rate controlled, anticoagulated, hypothyroidism, peripheral neuropathy, gastroesophageal reflux disease, osteoporosis, recurrent urinary tract infection. Patient was brought to the emergency room due to palpitations. Patient was started on Cardizem drip however converted to sinus rhythm. Preliminary workup was significant for urinalysis with numerous WBCs present. Patient tested negative for influenza type A influenza type B RSV and COVID-19 patient is been admitted further evaluation management. EXAMINATION:? XR chest 1V portable Exam Date/Time:? 03/01/2023 22:05 INSPECTOR OF DREDGING HISTORY: chest pressure AND PALPITATIONS X 1 DAY ? Comparison:? 02/16/2023. RESULT: Lines, tubes, and devices:? None. Lungs and pleura:? Senescent change, otherwise clear. Cardiomediastinal silhouette:? Stable. Other:? No acute osseous or upper abdominal finding. ? IMPRESSION: No acute cardiopulmonary process. Review of Systems Review of Systems: palpitations Constitutional: Constitutional: Denies chills, Denies fever(s) and Denies night sweats Eyes: Eyes: Denies change in vision ENT: Denies dysphagia and Denies odynophagia Cardiovascular: Cardiovascular: Denies chest pain and Reports palpitations Respiratory: Respiratory: Denies cough and Denies dyspnea Gastrointestinal: Gastrointestinal: Denies abdominal pain, Denies dyspepsia, Denies diarrhea, Denies nausea and Denies vomiting Genitourinary: Genitourinary: Reports dysuria Musculoskeletal: Musculoskeletal: Reports muscle weakness Integumentary/Breasts: Skin/Breast: Denies rash Neurologic: Denies focal weakness and Denies Sensory deficit (Neuro) Psychiatric: Psychiatric: Reports no additional psychiatric complaints and Reports as per HPI Endocrine: Endocrine: Denies cold intolerance, Denies fatigue, Denies flushing, Denies heat intolerance, Denies polyphagia, Denies polydipsia and Denies palpitations Hematologic/Lymphatic: Hematologic/Lymphatic: Reports no additional hematologic/lymphatic complaints and Reports as per HPI Allergic/Immunologic: Allergic/Immunologic: Reports no additional allergic/immunologic complaints and Reports as per HPI [facility] Past Medical History Medical History (Updated 03/02/23 @ 01:27 by Zulema George MD) Atrial fibrillation with rapid ventricular response BMI 27.0-27.9,adult BMI 28.0-28.9,adult BMI 29.0-29.9,adult BMI 30.0-30.9,adult Cataract, right eye Colitis Confusion COVID-30 March 2021 Diverticulitis ETD (eustachian tube dysfunction) GERD (gastroesophageal reflux disease) Hematuria Hyperlipidemia Hypothyroidism Impacted cerumen of both ears Interstitial cystitis (chronic) with hematuria Lumbar spondylosis Osteoarthritis of right knee Osteoporosis Otitis media Perforation of right tympanic membrane Persistent cough Recurrent UTI (urinary tract infection) Screen for colon cancer Screening for breast cancer Screening for thyroid disorder UTI (urinary tract infection) Vitamin D deficiency Surgical History Surgical History History of bladder surgery Family History Family History Father Acute myocardial infarction Heart disease Mother Alcohol abuse Tobacco abuse Cancer Sibling Skin cancer Sibling Breast cancer Grandparent Heart disease Grandparent Heart disease Social History Social History Social History: patient is a she has two kids. Her daughter Nisa is her surrogate. She wishes to be DNR. Smoking status: Never smoker Second hand tobacco smoke exposure: Yes Alcohol intake: current Alcoho
[2023-03-02 00:41] LABS: Appearance Urine Cloudy (Clear); Bacteria Urine 1+ /hpf; Bilirubin Urine Negative (Negative); Blood Urine 3+ (Negative); Color Urine Dark Yellow (Yellow); Glucose Urine UA Negative (Negative); Ketones Urine Negative (Negative); Leukocyte Esterase Ur 3+ LEU/UL (Negative); Need Manual Microscopic Reviewed; Nitrate Urine Negative (Negative); Non Pathogenic Casts 0-2; Protein Urine 1+ mg/dL (Negative); RBC Urine >100 /hpf (0-2); Specific Grav Ur 1.013 (1.001-1.035); Squamous Epithelial Cell Urine Occasional /hpf (Few); Urobilinogen Urine 0.2 mg/dL (<2.0); WBC Urine >100 /hpf; pH Urine 5.5 (5.0-9.0)
[2023-03-02 00:44] LABS: Add Urine Microscopic? YES
[2023-03-02] MEDS: LORazepam INJ (*CRX) 2 MG/ML VIAL 0.5 MG IV PUSH (01:18)
--- NOTE | 2023-03-02 01:22 | PC.NURSE ---
This RN took over care of pt @2330, at this time it was noted pt converted to sinus rhythm. Pt has since been resting quietly in room.
--- NOTE | 2023-03-02 08:05 | PM.IMPN ---
Progress Note: A&P Assessment and Plan (1) Atrial fibrillation with RVR: Code(s): I48.91 - Unspecified atrial fibrillation Status: Acute (2) Anxiety due to invasive procedure: Code(s): F41.9 - Anxiety disorder, unspecified Status: Acute (3) Hypothyroidism: Code(s): E03.9 - Hypothyroidism, unspecified Status: Acute (4) Acute UTI: Code(s): N39.0 - Urinary tract infection, site not specified Status: Acute Plan ??This is an 82-year-old female with past medical history significant for atrial fibrillation, rate controlled, anticoagulated, hypothyroidism, peripheral neuropathy, gastroesophageal reflux disease, osteoporosis, recurrent urinary tract infection.? Patient was brought to the emergency room due to palpitations.? Patient was started on Cardizem drip however converted to sinus rhythm.? Preliminary workup was significant for urinalysis with numerous WBCs present.? Patient tested negative for influenza type A influenza type B RSV and COVID-19 patient is been admitted further evaluation management.? (1) Atrial fibrillation with RVR: ?Code(s): I48.91 - Unspecified atrial fibrillation ?Status:?Acute ?Assessment and Plan: Admit to IMU Patient initially placed on Cardizem drip Now converted to sinus rhythm Continue to monitor Resume home meds: Eliquis 5 mg b.i.d. p.o. metoprolol 25 mg daily p.o. Echocardiogram March 04, 2022 showed normal EF, grade 1 diastolic dysfunction, no significant valvular disease Echocardiogram pending Consult religious education coordinator for evaluation treatment (2) Acute UTI: ?Code(s): N39.0 - Urinary tract infection, site not specified ?Status:?Acute ?Assessment and Plan: Started on Rocephin Await cultures (3) GERD (gastroesophageal reflux disease): ?Qualifiers: ?Esophagitis presence:?esophagitis presence not specified? Qualified Code(s):?K21.9 - Gastro-esophageal reflux disease without esophagitis ?Code(s): K21.9 - Gastro-esophageal reflux disease without esophagitis ?Status:?Acute ?Assessment and Plan: Protonix 40 mg daily p.o. Hypothyroidism Patient is on Synthroid 25 mcg daily p.o. Follow-up TSH Subjective Date/time seen: 03/02/23 08:05 Interval history: I saw exam patient, patient feels better, denies chest pain, palpitation, nausea vomiting. Labs reviewed Exam Narrative: GENERAL: Pleasant, in no acute distress. Well-nourished. - EYES: EOMI. Anicteric. - HENT: Moist mucous membranes. - LUNGS: Clear to auscultation bilaterally, no wheezing, rhonchi, or rales. - CARDIOVASCULAR: Regular rhythm. No murmur. No JVD. - ABDOMEN: Soft, non-tender and non-distended. No palpable masses. - EXTREMITIES: No edema. Peripheral pulses 2+. Non-tender. - NEUROLOGIC: No focal neurological deficits. CN II-XII grossly intact. - PSYCHIATRIC: Awake, Alert and oriented x 3. Appropriate mood and affect. - SKIN: No rashes or lesions. Warm. - LYMPH: No cervical lymphadenopathy. Objective Data Vital Signs Vital Signs: Vital Signs - 24 hr 03/01/23 20:32 03/01/23 21:09 03/01/23 21:16 Temperature 98.3 F Pulse Rate 136 H 134 H 132 H Respiratory Rate 16 Blood Pressure 111/73 Pulse Oximetry 95 Oxygen Delivery Room Air 03/01/23 21:17 03/01/23 21:42 03/01/23 21:42 Temperature 97.6 F Pulse Rate 142 H 78 85 Respiratory Rate 24 H Blood Pressure 106/75 109/58 L Pulse Oximetry 94 Oxygen Delivery 03/01/23 21:43 03/02/23 01:21 03/02/23 01:21 Temperature 98.4 F Pulse Rate 71 67 72 Respiratory Rate 19 18 Blood Pressure 109/58 L 121/65 Pulse Oximetry 97 96 Oxygen Delivery 03/02/23 03:38 03/02/23 05:08 03/02/23 06:53 Temperature Pulse Rate 67 68 64 Respiratory Rate 16 18 15 Blood Pressure 117/67 116/66 119/59 L Pulse Oximetry 100 96 96 Oxygen Delivery Intake/Output Intake/Output: Intake & Output 02/27/23 02/28/23 03/01/23 03/02/23 23:
--- NOTE | 2023-03-02 09:34 | PC.NURSE ---
called Dr. Meyers to ask for the plan for patient. Pt is wanting to go home. He states he wants to consult cardiology and see what they want to do. called out to Viktoriya Mckineny
[2023-03-02] MEDS: LEVOTHYROXINE SODIUM 25 MCG TABLET PO (09:52)
[2023-03-02] MEDS: APIXABAN 5 MG TABLET PO ×2 (09:52→20:18)
[2023-03-02] MEDS: METOPROLOL SUCCINATE EXT REL 25 MG TABCR PO (09:53)
--- NOTE | 2023-03-02 10:05 | PC.NURSE ---
Spoke with Mary Ellen Mckinney, she states she or Dr. Dow will be down to see her
--- NOTE | 2023-03-02 10:07 | PC.NURSE ---
breakfast tray called for patient
--- NOTE | 2023-03-02 11:17 | ADMGEN ---
This patient, Maria A Patel, was admitted to IMU Room 209-01. Patient/family oriented to hospital policies and general routines including ID bracelet, bed and alarms, visiting hours, pain management, procedures, bathroom and other care routines, personal items, smoking policy, room service/diet, and visiting hours. Information on how to activate the Rapid Response Team has been discussed. Patient/Family are encouraged to report perceived risks to care and to ask questions if they do not understand what they are told or what they should do.
--- NOTE | 2023-03-02 13:15 | PM.CNCAR ---
Assessment and Plan Assessment and plan (1) Atrial fibrillation with RVR: Code(s): I48.91 - Unspecified atrial fibrillation Status: Acute Plan This is an 82-year-old lady with paroxysmal atrial fibrillation which for a year or so was reasonably well controlled with simple beta-lashell therapy. This is no longer the case she has been in the emergency room twice this month with symptomatic recurrences of her arrhythmia. I am going to discontinue metoprolol and advanced 1st therapy to sotalol at this time. I will start at a dosage of 80 mg twice daily. I will watch her QT interval and heart rate if she does become concerning the bradycardic the dosage can be reduced. She is already anticoagulated with apixaban this should be continued. Will follow her with you during this hospitalization possibly discharge the next day or 2 if there are no problems with QT prolongation or evidence of proarrhythmia Siddharth Jennings MD [facility] History of Present Illness History of Present Illness Consult date/time: 03/02/23 13:15 Reason For Visit: Atrial Fibrillation RVR Narrative: This is an 82-year-old woman who I know with a history of paroxysmal atrial fibrillation I am seeing her in follow-up today/consultation because of symptomatic recurrences of her arrhythmia. The patient was 1st seen approximately a year ago with this arrhythmia and was started on diltiazem in the emergency room after that she did convert to sinus rhythm. She was started on metoprolol and apixaban and followed up in the office. Initially she was doing fine without any signs or problems suggesting recurrence of AF. In the last month she has been in the emergency room twice with symptomatic AFib with RVR. She was given diltiazem bolus in the emergency room the 1st time she converted to sinus rhythm and was discharged. She came back last night with a symptomatic recurrence again her heart rate was quite rapid and she was symptomatic with palpitations and dyspnea. She once again was placed on IV diltiazem she did convert to sinus rhythm and is being seen in consultation in IMU at this time. She is comfortable visiting with her family and asking when she can be discharged. The patient's previous workup did not show any evidence of structural or ischemic heart disease. A 12 lead electrocardiogram in sinus rhythm essentially normal. Review of Systems Constitutional: Constitutional: Reports no additional constitutional complaints Eyes: Eyes: Reports no additional eye complaints ENT: Reports system reviewed and no additional complaints, except as documented Cardiovascular: Cardiovascular: Reports as per HPI and Reports palpitations Respiratory: Respiratory: Reports no additional respiratory complaints Gastrointestinal: Gastrointestinal: Reports no additional gastrointestinal complaints Genitourinary: Comments: Frequent urinary infections Musculoskeletal: Musculoskeletal: Reports no additional musculoskeletal complaints Neurologic: Comments: Alert and oriented x3 Endocrine: Endocrine: Reports no additional endocrine complaints Hematologic/Lymphatic: Hematologic/Lymphatic: Reports no additional hematologic/lymphatic complaints Allergic/Immunologic: Allergic/Immunologic: Reports no additional allergic/immunologic complaints [facility] Past Medical History Medical History (Updated 03/02/23 @ 01:27 by Zulema George MD) Atrial fibrillation with rapid ventricular response BMI 27.0-27.9,adult BMI 28.0-28.9,adult BMI 29.0-29.9,adult BMI 30.0-30.9,adult Cataract, right eye Colitis Confusion COVID-30 March 2021 Diverticulitis ETD (eustachian tube dysfunction) GERD (gastroesophageal reflux disease) Hematuria Hyperlipidemia Hypothyroidism Impacted cerumen of both ears Interstitial cystitis (chronic) with hematuria Lumbar spondylosis Osteoarthritis of right knee Osteoporosis Otitis media Perforation of right tympanic membrane Persisten
[2023-03-02] MEDS: SOTALOL HCL 80 MG TABLET PO ×2 (14:37→20:18)
--- NOTE | 2023-03-02 17:42 | ECG_ITS ---
Measurements Intervals [place] Rate: 66 P: -3 WI: 162 QRS: -15 QRSD: 98 T: 11 QT: 414 QTc: 434 Interpretive Statements SINUS RHYTHM WITH SINUS ARRHYTHMIA COMPARED TO ECG 03/01/2023 23:42:54 SINUS ARRHYTHMIA NOW PRESENT Electronically Signed On 03-03-2023 9:00:33 TRANSFER AND PUMPHOUSE OPERATOR CHIEF by Umu Marrufo M.D.
[2023-03-03] VITALS (18 sets, daily range): BP systolic 96–151; BP diastolic 53–81; PULSE 52–86; RESP 12–18; TEMP 36.4–36.9; O2SAT 94–100
--- NOTE | 2023-03-03 05:17 | PC.NURSE ---
EKG completed following 2nd dose of sotalol QT 450. will continue to monitor patient through shift.
[2023-03-03] MEDS: LEVOTHYROXINE SODIUM 25 MCG TABLET PO (05:45)
[2023-03-03] MEDS: APIXABAN 5 MG TABLET PO ×2 (08:30→20:14)
[2023-03-03] MEDS: SOTALOL HCL 80 MG TABLET PO ×2 (08:30→20:14)
--- NOTE | 2023-03-03 10:30 | ECG_ITS ---
Measurements Intervals [place] Rate: 61 P: 0 CT: 169 QRS: -17 QRSD: 91 T: -1 QT: 472 QTc: 476 Interpretive Statements SINUS RHYTHM VOLTAGE CRITERIA FOR LVH [MEETS CRITERIA IN ONE OF: R(aVL), S(V1), R(V5), R(V5/V6)+S(V1)] BORDERLINE pROLONGED QT INTERVAL COMPARED TO ECG 03/02/2023 18:52:45 LEFT VENTRICULAR HYPERTROPHY NOW PRESENT PROLONGED QT INTERVAL NOW PRESENT Electronically Signed On 03-03-2023 19:50:48 FENCE INSTALLER HELPER by Umu Marrufo M.D.
[2023-03-03 12:05] LABS: Anion Gap 3 mmol/L (8-16); Blood Urea Nitrogen 26 mg/dL (7-17); Calcium 9.4 mg/dL (8.4-10.2); Carbon Dioxide 26 mmol/L (22-30); Chloride 106 mmol/L (98-107); Estimated CRCL calculation 49 ml/min; Estimated Glomerular Filt Rate > 60; Glucose 84 mg/dL (65-110); Magnesium 1.9 mg/dL (1.6-2.3); Potassium 4.1 mmol/L (3.4-5.0); Sodium 135 mmol/L (137-145)
--- NOTE | 2023-03-03 15:33 | PM.PNCARD ---
Progress Note: A&P Assessment and Plan (1) Paroxysmal A-fib: Code(s): I48.0 - Paroxysmal atrial fibrillation Status: Inactive Assessment and Plan: 2nd ER visit this month for paroxysmal AFib RVR, now being loaded with the antiarrhythmic sotalol. Remains in sinus rhythm. --continue Eliquis and sotalol. (2) High risk medication use: Code(s): Z79.899 - Other correction (current) drug therapy Status: Acute Assessment and Plan: Being loaded on sotalol 80 mg b.i.d.. Good renal function. QTC acceptable. Mild bradycardia times. --continue sotalol load, follow QT interval --possible discharge tomorrow around noon, after her 5th dose. (3) Recurrent UTI (urinary tract infection): Code(s): N39.0 - Urinary tract infection, site not specified Status: Inactive Assessment and Plan: Urinalysis showed a lot of white cells red cells and was positive for leukocyte esterase. Cultures pending. Being treated with ceftriaxone per hospitalist. Subjective Date/time seen: 03/03/23 15:33 Interval history: Follow-up for paroxysmal atrial fibrillation. Patient converted on a Cardizem drip and since she has had problems with recurrent PAF, is staying for sotalol loading. 03/02/2023: Continue metoprolol, start sotalol. First dose was 03/02/2023 at 2:37 p.m.. Date of service 03/03/2023: Feeling well, no problems. Pulse rate 55-86. Telemetry shows ventricular arrhythmias or recurrent AFib 03/03/2023 EKG at 10:37 a.m.: Sinus rhythm rate 61, QTC 476 milliseconds acceptable. Review of Systems Review of Systems: No shortness of breath, chest pain, palpitations, abdominal pain. Being treated for a recurrent UTI and would like her urologist to be aware. Exam Const: General: cooperative, healthy appearing and comfortable; No confusion Orientation/consciousness: oriented to person, patient oriented x3 and No confusion HENMT: Mouth: Yes moist mucous membranes Eyes: General: appearance normal, both eyes and all related structures Neck: Neck: supple Resp: Effort & Inspection: normal respiratory effort Auscultation: clear to auscultation bilaterally Cardio: Rate: regular rate Rhythm: regular rhythm Heart sounds: no murmurs GI: Inspection: normal to inspection GI Palp: No abdominal tenderness Skin: General skin exam: normal color Neuro: General: oriented to person, patient oriented x3 and No confusion Extrem: Right lower extremity: no edema Left lower extremity: no edema Psych: Appearance: grossly normal Mental Status: mental status grossly normal Objective Data Vital Signs Vital Signs: Vital Signs - 24 hr 03/02/23 16:00 03/02/23 16:00 03/02/23 16:00 Temperature 97.4 F L Pulse Rate 68 68 72 Respiratory Rate 18 18 Blood Pressure 144/66 H Pulse Oximetry 96 96 Oxygen Delivery Room Air 03/02/23 18:00 03/02/23 20:00 03/02/23 20:18 Temperature 97.9 F Pulse Rate 81 66 74 Respiratory Rate 18 Blood Pressure 152/66 H Pulse Oximetry 99 Oxygen Delivery 03/02/23 20:00 03/02/23 20:00 03/02/23 22:00 Temperature Pulse Rate 70 70 57 L Respiratory Rate 18 Blood Pressure Pulse Oximetry 97 Oxygen Delivery Room Air 03/02/23 23:17 03/03/23 00:00 03/03/23 00:00 Temperature 97.8 F Pulse Rate 61 60 Respiratory Rate 18 Blood Pressure 149/60 H Pulse Oximetry 98 Oxygen Delivery Room Air 03/03/23 02:00 03/03/23 04:00 03/03/23 04:00 Temperature Pulse Rate 64 62 Respiratory Rate Blood Pressure Pulse Oximetry Oxygen Delivery Room Air 03/03/23 04:00 03/03/23 06:00 03/03/23 07:52 Temperature 97.8 F 97.6 F Pulse Rate 67 60 73 Respiratory Rate 18 16 Blood Pressure 134/53 L 151/81 H Pulse Oximetry 96 100 Oxygen Delivery 03/03/23 08:00 03/03/23 08:00 03/03/23 11:20 Temperature 98.5 F Pulse Rate 68 68 64 Respiratory Rate 16 18 Blood Pressure 138/59 L Pulse Oximetry 100
--- NOTE | 2023-03-03 18:45 | PM.IMPN ---
Progress Note: A&P Assessment and Plan (1) Atrial fibrillation with RVR: Code(s): I48.91 - Unspecified atrial fibrillation Status: Acute (2) Anxiety due to invasive procedure: Code(s): F41.9 - Anxiety disorder, unspecified Status: Acute (3) Hypothyroidism: Code(s): E03.9 - Hypothyroidism, unspecified Status: Acute (4) Acute UTI: Code(s): N39.0 - Urinary tract infection, site not specified Status: Acute Plan ??This is an 82-year-old female with past medical history significant for atrial fibrillation, rate controlled, anticoagulated, hypothyroidism, peripheral neuropathy, gastroesophageal reflux disease, osteoporosis, recurrent urinary tract infection.? Patient was brought to the emergency room due to palpitations.? Patient was started on Cardizem drip however converted to sinus rhythm.? Preliminary workup was significant for urinalysis with numerous WBCs present.? Patient tested negative for influenza type A influenza type B RSV and COVID-19 patient is been admitted further evaluation management.? (1) Atrial fibrillation with RVR: ?Code(s): I48.91 - Unspecified atrial fibrillation ?Status:?Acute ?Assessment and Plan: Admit to IMU Patient initially placed on Cardizem drip Now converted to sinus rhythm Continue to monitor Resume home meds: Eliquis 5 mg b.i.d. p.o. metoprolol 25 mg daily p.o. Echocardiogram March 04, 2022 showed normal EF, grade 1 diastolic dysfunction, no significant valvular disease Echocardiogram pending Consult team physician for evaluation treatment Cardiology started patient on sotalol loading, 3/5 doses given Patient will receive 2 more doses of sotalol and would likely be discharged home tomorrow afternoon if she remains stable and cleared by Cardiology (2) Acute UTI: ?Code(s): N39.0 - Urinary tract infection, site not specified ?Status:?Acute ?Assessment and Plan: Patient has multiple episode of UTI since this year Patient given 1 dose of IV Rocephin in the ER Continue with the Rocephin 1 g IV b.i.d. Monitor urine cultures Encouraged patient to drink at least 8 glasses of water daily (3) GERD (gastroesophageal reflux disease): ?Qualifiers: ?Esophagitis presence:?esophagitis presence not specified? Qualified Code(s):?K21.9 - Gastro-esophageal reflux disease without esophagitis ?Code(s): K21.9 - Gastro-esophageal reflux disease without esophagitis ?Status:?Acute ?Assessment and Plan: Protonix 40 mg daily p.o. Hypothyroidism Patient is on Synthroid 25 mcg daily p.o. Follow-up TSH Subjective Date/time seen: 03/03/23 18:45 Interval history: Patient is feeling better. Her palpitations have improved. She wants to go home. Review of Systems Review of Systems: 14 systems were reviewed with pertinent positives and negatives per HPI. Except as documented in the HPI/progress notes, all other systems were reviewed and are negative. All systems reviewed & are unremarkable except as noted in HPI and below Exam Narrative: GENERAL: Pleasant, in no acute distress. Well-nourished. - EYES: EOMI. Anicteric. - HENT: Moist mucous membranes. - LUNGS: Clear to auscultation bilaterally, no wheezing, rhonchi, or rales. - CARDIOVASCULAR: Regular rhythm. No murmur. No JVD. - ABDOMEN: Soft, non-tender and non-distended. No palpable masses. - EXTREMITIES: No edema. Peripheral pulses 2+. Non-tender. - NEUROLOGIC: No focal neurological deficits. CN II-XII grossly intact. - PSYCHIATRIC: Awake, Alert and oriented x 3. Appropriate mood and affect. - SKIN: No rashes or lesions. Warm. - LYMPH: No cervical lymphadenopathy. Objective Data Vital Signs Vital Signs: Vital Signs - 24 hr 03/02/23 20:00 03/02/23 20:18 03/02/23 20:00 Temperature 36.6 C Pulse Rate 66 74 70 Respiratory Rate 18 Blood Pressure 152/66 H Pulse Oximetry 99 Oxygen Delivery 03/02/23 20:00 03/02
--- NOTE | 2023-03-03 22:26 | ECG_ITS ---
Measurements Intervals [place] Rate: 59 P: -22 [place]: 176 QRS: -31 QRSD: 81 T: -5 QT: 455 QTc: 452 Interpretive Statements SINUS BRADYCARDIA WITH MARKED SINUS ARRHYTHMIA MARKED LEFT AXIS DEVIATION [QRS AXIS < -30] COMPARED TO ECG 03/03/2023 10:37:57 SINUS BRADYCARDIA NOW PRESENT Electronically Signed On 03-04-2023 17:01:31 VENDING STAND SUPERVISOR by Umu Marrufo M.D.
--- NOTE | 2023-03-03 23:16 | PC.NURSE ---
4th dose of sotalol given ekg obtain QT 435
[2023-03-04] VITALS (12 sets, daily range): BP systolic 118–149; BP diastolic 64–77; PULSE 53–76; RESP 18; TEMP 36.2–36.6; O2SAT 96–98
[2023-03-04 04:57] LABS: Basophils Absolute Auto 0.1 K/mm3 (0.0-0.1); Eosinophils Absolute Auto 0.2 K/mm3 (0-0.3); Eosinophils Percent Auto 3.1 % (0-4.4); Hematocrit 35.3 % (37.0-47.0); Immature Granulocyte Absolute 0.01 K/mm3 (0.00-0.031); Immature Granulocyte Percent A 0.2 % (0-0.5); Lymphocytes Percent Auto 45.9 % (18.3-44.2); Mean Corpuscular HGB Conc 31.2 g/dl (32-36); Mean Corpuscular Hemoglobin 29.4 pg (26-34); Mean Corpuscular Volume 94.4 fl (80-100); Mean Platelet Volume 10.8 fl (7.4-10.4); Monocytes Absolute Auto 0.5 K/mm3 (0.1-0.6); Monocytes Percent Auto 10.3 % (2.6-8.5); Neutrophils Absolute Auto 2.1 K/mm3 (1.3-6.7); Neutrophils Percent Auto 39.5 % (45.5-73.1); Platelet Count Result 188 k/mm3 (150-375); Red Blood Count 3.74 M/mm3 (4.2-5.4); Red Cell Distribution Width 13.6 % (11.5-14.5); White Blood Count 5.2 K/mm3 (4.5-10.0)
[2023-03-04 05:06] LABS: Anion Gap 7 mmol/L (8-16); Blood Urea Nitrogen 23 mg/dL (7-17); Carbon Dioxide 24 mmol/L (22-30); Chloride 107 mmol/L (98-107); Estimated CRCL calculation 49 ml/min; Estimated Glomerular Filt Rate > 60; Glucose 93 mg/dL (65-110); Potassium 3.7 mmol/L (3.4-5.0); Sodium 138 mmol/L (137-145)
[2023-03-04] MEDS: LEVOTHYROXINE SODIUM 25 MCG TABLET PO (06:11)
[2023-03-04] MEDS: APIXABAN 5 MG TABLET PO (08:38)
[2023-03-04] MEDS: SOTALOL HCL 80 MG TABLET PO (08:38)
--- NOTE | 2023-03-04 10:15 | PM.PNCARD ---
Progress Note: A&P Assessment and Plan (1) Paroxysmal A-fib: Code(s): I48.0 - Paroxysmal atrial fibrillation Status: Inactive Assessment and Plan: 2nd ER visit this month for paroxysmal AFib RVR, now being loaded with the antiarrhythmic sotalol. Remains in sinus rhythm. --continue Eliquis and sotalol. --okay for discharge, I will schedule a follow-up office visit (2) High risk medication use: Code(s): Z79.899 - Other correction (current) drug therapy Status: Acute Assessment and Plan: Being loaded on sotalol 80 mg b.i.d.. Good renal function. QTC acceptable. Mild bradycardia times. --continue sotalol load, follow QT interval --okay for discharge today from my point of view. --Reviewed drug interactions; avoid other medications that can prolong the QT interval. (3) Recurrent UTI (urinary tract infection): Code(s): N39.0 - Urinary tract infection, site not specified Status: Inactive Assessment and Plan: Urinalysis showed a lot of white cells red cells and was positive for leukocyte esterase. Culture pending. Being treated with ceftriaxone per hospitalist. Subjective Date/time seen: 03/04/23 10:15 Interval history: Follow-up for paroxysmal atrial fibrillation. Patient converted on a Cardizem drip and since she has had problems with recurrent PAF, is staying for sotalol loading. 03/02/2023: Continue metoprolol, start sotalol. First dose was 03/02/2023 at 2:37 p.m.. Date of service 03/03/2023: Feeling well, no problems. Pulse rate 55-86. Telemetry shows ventricular arrhythmias or recurrent AFib Date of service 03/04/2023: Doing well, up and about in her room with no problems. Read about side effects of sotalol, concerned. 03/03/2023 EKG at 10:35 p.m.: Sinus bradycardia rate 59, QTC 452 milliseconds which is acceptable. 03/04/2023 EKG today: NSR, QTc 436 msec, acceptable Tele: Normal sinus rhythm, heart rate in the 50s at night, 60s to 80s a day, no ventricular arrhythmias or recurrent AFib. Review of Systems Review of Systems: No shortness of breath, chest pain, palpitations, abdominal pain. Unhappy that she has longstanding problems with UTIs which has caused anxiety. Asked if she could use an anxiety pill. (refer to PMD) Exam Const: General: cooperative, healthy appearing and comfortable; No confusion Orientation/consciousness: oriented to person, patient oriented x3 and No confusion HENMT: Mouth: Yes moist mucous membranes Eyes: General: appearance normal, both eyes and all related structures Neck: Neck: supple Resp: Effort & Inspection: normal respiratory effort Auscultation: clear to auscultation bilaterally Cardio: Rate: regular rate Rhythm: regular rhythm Heart sounds: no murmurs GI: Inspection: normal to inspection Skin: General skin exam: normal color Neuro: General: oriented to person, patient oriented x3 and No confusion Extrem: Right lower extremity: no edema Left lower extremity: no edema Psych: Appearance: grossly normal Mental Status: mental status grossly normal Objective Data Vital Signs Vital Signs: Vital Signs - 24 hr 03/03/23 11:20 03/03/23 12:00 03/03/23 12:00 Temperature 98.5 F Pulse Rate 64 60 Respiratory Rate 18 Blood Pressure 138/59 L Pulse Oximetry 95 Oxygen Delivery Room Air 03/03/23 14:00 03/03/23 15:27 03/03/23 16:00 Temperature 98.5 F Pulse Rate 86 55 L 66 Respiratory Rate 12 Blood Pressure 96/61 L Pulse Oximetry 98 Oxygen Delivery 03/03/23 16:00 03/03/23 18:00 03/03/23 20:14 Temperature Pulse Rate 66 70 74 Respiratory Rate 12 Blood Pressure Pulse Oximetry 98 Oxygen Delivery Room Air 03/03/23 20:26 03/03/23 20:00 03/03/23 20:00 Temperature 98.0 F Pulse Rate 52 L 64 Respiratory Rate 18 Blood Pressure 148/71 H Pulse Oximetry 96 Oxygen Delivery Room Air 03/03/23 22:00 03/03/23 23:48 03/04/23 00:00 [place]
--- NOTE | 2023-03-04 10:55 | ECG_ITS ---
Measurements Intervals [place] Rate: 54 P: -2 [place]: 158 QRS: -19 QRSD: 105 T: 2 QT: 451 QTc: 428 Interpretive Statements SINUS BRADYCARDIA MODERATE VOLTAGE CRITERIA FOR LVH, CONSIDER NORMAL VARIANT [MEETS CRITERIA IN ONE OF: R(aVL), S(V1), R(V5), R(V5/V6)+S(V1)] COMPARED TO ECG 03/03/2023 22:35:11 NO SIGNIFICANT CHANGES Electronically Signed On 03-04-2023 17:11:49 MACHINE OPERATIONS SUPERVISOR by Umu Marrufo M.D.
--- NOTE | 2023-03-04 14:08 | PM.DS ---
DS: Admitting Diagnosis Discharge Date 03/04/2023: Admitting Diagnosis Atrial fibrillation with RVR Chronic recurrent UTIs DS: Discharge Diagnosis Discharge Diagnosis (1) High risk medication use: Code(s): Z79.899 - Other long chain dyeing machine operator (current) drug therapy Status: Acute (2) GERD (gastroesophageal reflux disease): Qualifiers: Esophagitis presence: esophagitis presence not specified Qualified Code(s): K21.9 - Gastro-esophageal reflux disease without esophagitis Code(s): K21.9 - Gastro-esophageal reflux disease without esophagitis Status: Acute (3) Atrial fibrillation with RVR: Code(s): I48.91 - Unspecified atrial fibrillation Status: Acute (4) Lumbar spondylosis: Code(s): M47.816 - Spondylosis without myelopathy or radiculopathy, lumbar region Status: Acute (5) Hypothyroidism: Code(s): E03.9 - Hypothyroidism, unspecified Status: Acute (6) Urinary incontinence: Qualifiers: Urinary Incontinence type: unspecified incontinence Qualified Code(s): R32 - Unspecified urinary incontinence Code(s): R32 - Unspecified urinary incontinence Status: Acute (7) Recurrent UTI: Code(s): N39.0 - Urinary tract infection, site not specified Status: Acute DS: Summary Hospital Course Reason for hospitalization: Patient admitted with palpitation. Workup was done which showed AFib with RVR Hospital Course: H&P: HPI History of Present Illness Date/Time: 03/02/23? 00:01 Chief Complaint: Palpitations Narrative: This is an 82-year-old female with past medical history significant for atrial fibrillation, rate controlled, anticoagulated, hypothyroidism, peripheral neuropathy, gastroesophageal reflux disease, osteoporosis, recurrent urinary tract infection.? Patient was brought to the emergency room due to palpitations.? Patient was started on Cardizem drip however converted to sinus rhythm.? Preliminary workup was significant for urinalysis with numerous WBCs present.? Patient tested negative for influenza type A influenza type B RSV and COVID-19 patient is been admitted further evaluation management.? HOSPITAL COURSE ... Date of Admission - 03/03/2023: (1) Atrial fibrillation with RVR: ?Code(s): I48.91 - Unspecified atrial fibrillation ?Status:?Acute ?Assessment and Plan: Admit to IMU Patient initially placed on Cardizem drip Now converted to sinus rhythm Continue to monitor Resume home meds:? Eliquis 5 mg b.i.d. p.o. metoprolol 25 mg daily p.o. Echocardiogram March 04, 2022 showed normal EF, grade 1 diastolic dysfunction, no significant valvular disease Echocardiogram pending Consult card fixer for evaluation treatment Cardiology started patient on sotalol loading, 3/5 doses given Patient will receive 2 more doses of sotalol and would likely be discharged home tomorrow afternoon if she remains stable and cleared by Cardiology (2) Acute UTI: ?Code(s): N39.0 - Urinary tract infection, site not specified ?Status:?Acute ?Assessment and Plan: Patient has multiple episode of UTI since this year Patient given 1 dose of IV Rocephin in the ER Continue with the Rocephin 1 g IV b.i.d. Monitor urine cultures Encouraged patient to drink at least 8 glasses of water daily (3) GERD (gastroesophageal reflux disease): ?Qualifiers: ?Esophagitis presence:?esophagitis presence not specified? Qualified Code(s):?K21.9 - Gastro-esophageal reflux disease without esophagitis ?Code(s): K21.9 - Gastro-esophageal reflux disease without esophagitis ?Status:?Acute ?Assessment and Plan: Protonix 40 mg daily p.o. Hypothyroidism Patient is on Synthroid 25 mcg daily p.o. Follow-up TSH 03/04/2023: Patient has completed 5 doses loading schedule for sotalol which she tolerated well. EKG viewed by Cardiology who cleared her for discharge. She wants to go home. Her urine cultures are still pending.
== END 2023-03-04 15:15 | disposition home or self-care (01) ==
LOC: ANHED 03-02 01:03 → ANHIMU 03-02 01:39
PROVIDERS: Admitting Provider Internal Medicine; Emergency Provider Emergency Medicine; PCP Family Medicine; Visit Provider Family Medicine
DX: I48.91 Unspecified atrial fibrillation (principal); N39.0 Urinary tract infection, site not specified; Z20.822 Contact with and (suspected) exposure to COVID-19; K21.9 Gastro-esophageal reflux disease without esophagitis; F41.9 Anxiety disorder, unspecified; M47.816 Spondylosis without myelopathy or radiculopathy, lumbar region; E78.5 Hyperlipidemia, unspecified; E03.9 Hypothyroidism, unspecified; E55.9 Vitamin D deficiency, unspecified; R32 Unspecified urinary incontinence; G62.9 Polyneuropathy, unspecified; M81.0 Age-related osteoporosis without current pathological fracture; Z87.440 Personal history of urinary (tract) infections; Z66 Do not resuscitate; Z86.16 Personal history of COVID-19; F10.90 Alcohol use, unspecified, uncomplicated; Z79.82 Long term (current) use of aspirin; Z79.01 Long term (current) use of anticoagulants; Z79.891 Long term (current) use of opiate analgesic; Z79.899 Other long term (current) drug therapy
CPT/HCPCS: 36415; 71045; 80048; 80053; 81001; 83735; 84443; 84484; 85025; 87086; 87088; 87637; 93005; 96365; 96366; 96367; 96375; 99285; A9270; G0378; J0696; J2060; J3475; J7040

== ENCOUNTER 2023-06-27 10:45 | Outpatient (RCR) | payer MEDICARE, SELFPAY ==
--- NOTE | 2023-05-30 11:01 | OPREHPOC ---
Outpatient Therapy Plan of Care This is a Multidisciplinary Plan of Care that may contain components documented by all disciplines (PT, OT, and ST.) PT Problem 1 PT Problem #1 Knowledge Deficit PT Goal 1 Goal 1. Patient will perform independent HEP Target Visit 2 PT Problem 2 PT Problem #2 Pain PT Goal 1 Goal 1. Patient will report pain with pelvic palpation no higher than 2/10 Target Visit 5 PT Problem 3 PT Problem #3 Impaired Functional ADLs PT Goal 1 Goal 1. Patient will void no more than 8 times a day and 1 time at night 2. Patient will report incontinence no more than 2 times a week 3. Patient will be able to do normal daily activities without pain with urination Target Visit 5
--- NOTE | 2023-05-30 11:02 | PTOPEVAL1 ---
Assessment and note entered by Samia Marshall DPT Evaluation Information Assessment Status Evaluation Subjective Information Pt has tried pelvic PT previously 2 times with [facility] for recurrent UTI's. States she has been taking a lot of antibiotics and ended up with c diff (for the 3rd or 4th time) while in [place] in April. Had an appointment with infectious disease last week. Will be starting a medication on Sunday and is still on vancomycin for c diff. Pt reports she has been told by Dr. Melgar that she is not emptying her bladder fully and that is contributing to the UTI's. Started another treatment for the UTI's 10 days ago but it is not an antibiotic. Bladder biopsy approximately 2 months ago. Voiding 7-8 times a day and wakes 4 times at night to void. Can hold urge a few minutes, unsure. Urine leakage every day, probably 2-3 times a day. Has been wearing diapers or pads. Reports over the last week or so she has not noticed pain with urination. Frequent daily BM. Reports a lot of pelvic pain with her last pelvic exam. Highest pain 10/10 and lowest 0/10. Also has a history of back pain and stenosis. Pt has been and delivered 2 times vaginally, no complications. Pt has previous surgery for prolapse and hysterectomy , unsure when. Patient goal: less pain No return to Dr. Melgar scheduled at the moment. Reported Pain Level Pain Score 0: Self Report Assessment PT Clinical Summary The patient is presenting to skilled therapy with a history of recurrent UTI's, pelvic and urinary pain, and urinary incontinence. She presents with decreased pelvic floor strength and pain with pelvic floor palpation which are contributing to her symptoms. She will benefit from therapy to address these impairments in order to reduce pain and incontinence and improve overall function. Plan of Care Interventions Electrical Stimulation,Gait Training,Hot Pack/Cold Pack,Manual Therapy,Neuro Re-education,Patient/ Caregiver Education,Therapeutic Activities, Therapeutic Exercise PT Services Indicated Yes Treatment Frequency and 1 time a week for 5 visits Duration These treatments will address the objective and functional deficits as d
--- NOTE | 2023-06-08 12:42 | PCPTNOTE ---
Patient had to cancel appointment 06/08/23 due to taking a medicine where she cannot drive after.
--- NOTE | 2023-06-27 11:21 | OPREHPOC ---
Outpatient Therapy Plan of Care This is a Multidisciplinary Plan of Care that may contain components documented by all disciplines (PT, OT, and ST.) PT Problem 1 PT Problem #1 Knowledge Deficit PT Goal 1 Goal 1. Patient will perform independent HEP Target Visit 2 Progress Met PT Problem 2 PT Problem #2 Pain PT Goal 1 Goal 1. Patient will report pain with pelvic palpation no higher than 2/10 Target Visit 5 Progress Met PT Problem 3 PT Problem #3 Impaired Functional ADLs PT Goal 1 Goal 1. Patient will void no more than 8 times a day and 1 time at night 2. Patient will report incontinence no more than 2 times a week 3. Patient will be able to do normal daily activities without pain with urination Target Visit 5 Progress Partially Met
--- NOTE | 2023-06-27 11:21 | PTOPPROG ---
Assessment and note entered by Samia Marshall DPT Evaluation Information Assessment Status Progress Subjective Information Pt reports she has been mostly compliant with her HEP. States she has been having a sensitive stomach since finishing up the vowst. Gave a stool sample but has not heard back on results as there was an issue and she needs to give another one. Still taking Hiprex twice a day. Reports no UTI- like symptoms since starting therapy and Hiprex. Pelvic pain up to 3/10 when feeling like she needs to have a BM which she is noticing a lot in the morning. Assessment PT Clinical Summary The patient has made good progress in therapy. She reports no UTI-like symptoms in the past few weeks. She demonstrates improved pelvic floor strength and no pain with palpation of pelvic floor. Due to her progress but extensive nature of her medical history, plan to follow up in 2-3 weeks and will consider discharge at that time. Plan of Care Interventions Electrical Stimulation,Hot Pack/Cold Pack,Manual Therapy,Neuro Re-education,Patient/Caregiver Education,Therapeutic Activities,Therapeutic Exercise PT Services Indicated Yes Treatment Frequency and 1 visit in 2-3 weeks Duration These treatments will address the objective and functional deficits as defined above. The patient will be advanced safely and appropriately in order for the patient to progress towards his/her prior level of function. Additional exercises will be introduced and as well as a comprehensive home exercise program upon discharge, if needed, ?to ensure carryover of functional gains achieved in the clinic. This treatment plan has been reviewed and agreement upon by the patient.
--- NOTE | 2023-07-18 08:13 | PCPTNOTE ---
Patient called to cancel due to having a UTI. Will call back to reschedule when symptoms resolve
--- NOTE | 2023-08-22 12:55 | PCPTNOTE ---
Patient called to cancel appointment this date due to car trouble.
--- NOTE | 2023-08-27 12:55 | PTOPDC ---
Assessment and note entered by Samia Marshall, DPT Evaluation Information Assessment Status Discharge - Pt Not Present Subjective Information - Assessment PT Clinical Summary Patient has not attended therapy since 06/27/23. Her pelvic floor case will be discharged this date and need a new script to resume in the future. Plan of Care PT Services Indicated No
== END 2023-08-27 13:42 | disposition home or self-care (01) ==
LOC: ANHGOSHPT 10:45
PROVIDERS: PCP Family Medicine
DX: M62.89 Other specified disorders of muscle (principal)
CPT/HCPCS: 97110; 97112; 97162; 97530

== ENCOUNTER 2023-08-01 14:13 | Outpatient (CLI) | payer MEDICARE, SELFPAY ==
--- NOTE | ~2023-08-01 | MM_ITS ---
EXAMINATION: MM screening brent BI w [facility] HISTORY: Screening TECHNIQUE: Craniocaudal and mediolateral oblique 3-D tomosynthesis images were obtained and synthetic 2-D images were generated. CAD analysis was submitted and interpreted. COMPARISON: Comparison to multiple prior studies sequentially, with oldest reviewed study dated 11/30. BREAST PARENCHYMAL COMPOSITION: Not dense: There are scattered areas of fibroglandular density. FINDINGS: There is no evidence of suspicious mass, calcification, or architectural distortion to sugg est malignancy in either breast. There has been no suspicious interval change. IMPRESSION: 1. No mammographic evidence of malignancy. 2. Recommend routine screening mammography in one year. BI-RADS Category 1: Negative Reviewed, dictated and finalized at location A.
== END 2023-08-01 14:14 ==
PROVIDERS: PCP Family Medicine; Visit Provider Family Medicine
DX: Z12.31 Encounter for screening mammogram for malignant neoplasm of breast (principal)
CPT/HCPCS: 77063; 77067

== ENCOUNTER → 2023-09-03 16:55 | Outpatient (REF) | payer MEDICARE, SELFPAY | LOC: ANHLAB 16:55 | PROVIDERS: PCP Family Medicine; Visit Provider Physician Assistant Surgical | DX: L98.8 Other specified disorders of the skin and subcutaneous tissue (principal) | CPT/HCPCS: 88305 ==

== ENCOUNTER 2023-09-12 14:47 | Emergency (ER) | payer MEDICARE, SELFPAY ==
[2023-09-12 14:56] VITALS: BP 139/65; PULSE 99; RESP 16; TEMP 36.8; O2SAT 99
--- NOTE | 2023-09-12 15:30 | ED.GENADULT ---
HPI - General Adult General Chief complaint: Recheck/Abnormal Lab/Rx <Tiffany Asif July, MOTORCYCLE RACER - Last Filed: 09/12/23 15:34> Stated complaint: abnormal culture, chronic UTI <Tiffany Asif July, MOTORCYCLE RACER - Last Filed: 09/12/23 15:34> Time Seen by Provider: 09/12/23 15:30 <Tiffany Asif July, MOTORCYCLE RACER - Last Filed: 09/12/23 15:34> Focused HPI: Maria A Peralta is an 82 y/o female who presents with complaints of repetitive UTI's , she saw her urologist today they did a catheterized urine test, the urine looked like mustard and the Urologist told her to go to the ER. She states she has pain has been having urethral pain for 5 days Urinary urgency and severe Dysuria Denies abdominal pain / Denies flank pain GENERAL: Well-appearing, well-nourished, and in no acute distress. HEAD: Normocephalic, atraumatic. CHEST: Clear to auscultation. ?No respiratory distress. HEART: Regular rate and rhythm.? NEURO: ?Alert and oriented x3. Patient screened in triage and initial orders placed.? ?Additional care and disposition to be based upon?diagnostic testing and treatment. <Tiffany Asif July, - Last Filed: 09/12/23 15:34> Related Data Home medications: Home Medications Medication Instructions Recorded Confirmed mecobalamin (vitamin B12) 1,000 1,000 mcg PO DAILY 08/28/23 08/28/23 mcg chewable tablet methenamine hippurate 1 gram tablet 1 g PO BID 09/03/23 <Tiffany Asif July, - Last Filed: 09/12/23 15:34> Allergies/adverse reactions: Allergies Allergy/AdvReac Type Severity Reaction Status Date / Time prednisone Allergy Unknown Unknown Verified 09/03/23 15:40 clavulanic acid Allergy Rash Verified 09/03/23 15:40 [From Augmentin] <Tiffany Asif July, - Last Filed: 09/12/23 15:34> Review of Systems Review of Systems: All systems are reviewed and are negative unless stated otherwise in the HPI. <Qian Sommers MD - Last Filed: 09/12/23 19:15> PMFSH Past Medical History Medical History: Medical History Alopecia Atrial fibrillation with rapid ventricular response BMI 28.0-28.9,adult BMI 29.0-29.9,adult BMI 30.0-30.9,adult Cataract, right eye Colitis Confusion COVID-30 March 2021 Diverticulitis ETD (eustachian tube dysfunction) Foreign body in ear GERD (gastroesophageal reflux disease) Hematuria High risk medication use Hyperlipidemia Hyperlipidemia Hypothyroidism Impacted cerumen of both ears Interstitial cystitis (chronic) with hematuria Lumbar spondylosis Macular degeneration Osteoarthritis of right knee Osteoporosis Otitis media Perforation of right tympanic membrane Persistent cough Recurrent UTI (urinary tract infection) Screen for colon cancer Screening for breast cancer Screening for thyroid disorder UTI (urinary tract infection) Vitamin B deficiency Vitamin D deficiency Vitamin D deficiency, unspecified <Tiffany Bradford, MOTORCYCLE RACER - Last Filed: 09/12/23 15:34> Surgical History Surgical History: Surgical History History of bladder surgery <Tiffany Bradford, MOTORCYCLE RACER - Last Filed: 09/12/23 15:34> Family History Family History: Family History Father Acute myocardial infarction Heart disease Mother Alcohol abuse Tobacco abuse Cancer Sibling Skin cancer Sibling Breast cancer Grandparent Heart disease Grandparent Heart disease <Tiffany Bradford, MOTORCYCLE RACER - Last Filed: 09/12/23 15:34> Social History Social History: Social History Social History: patient is a she has two kids. Her daughter Nisa is her surrogate. She wishes to be DNR. Smoking status: Never smoker Second hand tobacco smoke exposure: Yes Alcohol intake: current Alcohol use details: rare Substance use: never Substance use
[2023-09-12] MEDS: KETOROLAC 30 MG/ML VIAL (*BKC) 15 MG IV PUSH (16:17)
[2023-09-12 16:18] VITALS: BP 112/59; PULSE 63; RESP 15; O2SAT 96
[2023-09-12 16:36] LABS: Basophils Absolute Auto 0.1 K/mm3 (0.0-0.1); Basophils Percent Auto 0.8 % (0.2-1.2); Eosinophils Absolute Auto 0.3 K/mm3 (0-0.3); Eosinophils Percent Auto 4.3 % (0-4.4); Hemoglobin 12.1 g/dL (12.0-15.0); Immature Granulocyte Absolute 0.02 K/mm3 (0.00-0.031); Immature Granulocyte Percent A 0.3 % (0-0.5); Lymphocytes Absolute Auto 2.02 K/mm3 (0.9-3.2); Lymphocytes Percent Auto 33.1 % (18.3-44.2); Mean Corpuscular HGB Conc 32.7 g/dl (32-36); Mean Corpuscular Hemoglobin 30.2 pg (26-34); Mean Corpuscular Volume 92.3 fl (80-100); Mean Platelet Volume 10.5 fl (7.4-10.4); Monocytes Absolute Auto 0.6 K/mm3 (0.1-0.6); Monocytes Percent Auto 10.5 % (2.6-8.5); Neutrophils Absolute Auto 3.1 K/mm3 (1.3-6.7); Platelet Count Result 236 k/mm3 (150-375); Red Blood Count 4.01 M/mm3 (4.2-5.4); Red Cell Distribution Width 14.1 % (11.5-14.5); White Blood Count 6.1 K/mm3 (4.5-10.0)
[2023-09-12 16:47] LABS: Alanine Aminotransferase 15 U/L (6-35); Alkaline Phosphatase 107 U/L (38-126); Anion Gap 7 mmol/L (4-12); Aspartate Amino Transferase 28 U/L (14-36); Bilirubin,Total 0.5 mg/dL (0.2-1.3); Blood Urea Nitrogen 44 mg/dL (7-17); Calcium 8.9 mg/dL (8.4-10.2); Carbon Dioxide 26 mmol/L (22-30); Chloride 109 mmol/L (98-107); Estimated CRCL calculation 30 ml/min; Estimated Glomerular Filt Rate 43; Glucose 161 mg/dL (65-110); Sodium 142 mmol/L (137-145)
[2023-09-12 17:06] LABS: Appearance Urine Cloudy (Clear); Color Urine Yellow (Yellow); pH Urine 6.5 (5.0-9.0)
[2023-09-12 17:07] LABS: Glucose Urine UA Negative (Negative); Protein Urine 3+ mg/dL (Negative); Specific Grav Ur >= 1.030 (1.001-1.035)
[2023-09-12 17:08] LABS: Bilirubin Urine Negative (Negative); Blood Urine 3+ (Negative); Ketones Urine 1+ mg/dL (Negative); Nitrate Urine Negative (Negative)
[2023-09-12 17:09] LABS: Leukocyte Esterase Ur 1+ LEU/UL (Negative); Urobilinogen Urine 0.2 mg/dL (<2.0)
[2023-09-12 17:30] LABS: Squamous Epithelial Cell Urine Few /hpf (Few); WBC Urine 16-20 /hpf (0-3)
[2023-09-12 17:31] LABS: Bacteria Urine 2+ /hpf
[2023-09-12 17:32] LABS: Add Urine Microscopic? YES
[2023-09-12 18:16] VITALS: BP 133/81; PULSE 67; RESP 20; O2SAT 96
[2023-09-12] MEDS: SODIUM CHLORIDE 0.9% IV 1,000 ML 999 ML IV CONT (18:16)
[2023-09-12] MEDS: PHENAZOPYRIDINE HCL 100 MG TABLET 200 MG PO (18:16)
[2023-09-12 18:56] VITALS: BP 149/79; PULSE 58; RESP 17; O2SAT 97
== END 2023-09-12 19:11 | disposition home or self-care (01) ==
PROVIDERS: Nurse Practitioner Family; Emergency Provider Emergency Medicine; PCP Family Medicine
DX: N39.0 Urinary tract infection, site not specified (principal); N17.9 Acute kidney failure, unspecified; E86.0 Dehydration; I48.91 Unspecified atrial fibrillation; K21.9 Gastro-esophageal reflux disease without esophagitis; E78.5 Hyperlipidemia, unspecified; E03.9 Hypothyroidism, unspecified; E55.9 Vitamin D deficiency, unspecified; E53.9 Vitamin B deficiency, unspecified
CPT/HCPCS: 36415; 80053; 81001; 85025; 87086; 87088; 96365; 96375; 99284; A9270; J0696; J1885; J7030

== ENCOUNTER 2023-10-04 17:54 | Observation (INO) | payer MEDICARE, SELFPAY ==
[2023-10-04] VITALS (13 sets, daily range): BP systolic 119–133; BP diastolic 74–99; PULSE 81–138; RESP 13–22; TEMP 36.4; O2SAT 94–97; BMI 28.9
--- NOTE | ~2023-10-04 | CT_ITS ---
EXAMINATION: CTA chest PE protocol DATE: 10/04/2023 20:01 INDICATION: Afib rvr, leg swelling TECHNIQUE: Computed tomography angiography (CTA) of the chest was performed with 100 mL Omnipaque-350 intravenous contrast timed to evaluate the pulmonary arteries. Coronal maximum intensity projection 3D-reconstructions were created by the technologist. The dose-length product (DLP) was 389.89 mGy-cm. Automated exposure control and iterative reconstruction technique were employed. COMPARISON: 03/02/2022; x-ray chest, same date. FINDINGS: Lung parenchyma and airways: Dependent groundglass opacities and interlobular septal thickening. Sanders nt airways. Pleura: Unremarkable. Thoracic inlet, axillae and chest wall: Unremarkable. Thoracic aorta: No significant dilation. No dissection. Mediastinum: Dilated central pulmonary arteries as can be seen with pulmonary arterial hypertension. Heart and pericardium: Mitral annulus calcification. Cardiomegaly. Coronary artery calcifications: Mild. Upper abdomen: No significant finding. Bones: No acute osseous finding. Pulmonary arteries: Study quality: Adequate. No pulmonary emboli detected. IMPRESSION: No CT evidence of acute pulmonary embolus. Mild interstitial edema. Reviewed, dictated and finalized at location K.
--- NOTE | ~2023-10-04 | XR_ITS ---
EXAMINATION: XR chest 2V Exam Date/Time: 10/04/2023 18:27 CDT HISTORY: chest pain Comparison: 03/01/2023. RESULT: Lines, tubes, and devices: None. Lungs and pleura: Mild peripheral reticular opacities. Senescent changes. Cardiomediastinal silhouette: Stable. Other: No acute osseous or upper abdominal finding. IMPRESSION: Mild interstitial edema. Reviewed, dictated and finalized at location K. IMPRESSION: Mild interstitial edema.
--- NOTE | 2023-10-04 17:55 | ECG_ITS ---
Test Date: 2023-10-04 18:17:51 Measurements Intervals [place] Rate: 132 P: 0 [place]: 0 QRS: -20 QRSD: 90 T: 58 QT: 327 QTc: 486 Interpretive Statements ATRIAL FIBRILLATION WITH RAPID VENTRICULAR RESPONSE INTERMITTENT RBBB VOLTAGE CRITERIA FOR LVH ABNORMAL ECG No previous ECG available for comparison Electronically Signed On 10-04-2023 20:24:10 CDT by Bernardo Hamilton D.O.
[2023-10-04 18:32] LABS: Basophils Percent Auto 0.6 % (0.2-1.2); Eosinophils Absolute Auto 0.2 K/mm3 (0-0.3); Eosinophils Percent Auto 2.8 % (0-4.4); Hematocrit 38.7 % (37.0-47.0); Hemoglobin 12.2 g/dL (12.0-15.0); Immature Granulocyte Absolute 0.01 K/mm3 (0.00-0.031); Immature Granulocyte Percent A 0.2 % (0-0.5); Lymphocytes Absolute Auto 2.25 K/mm3 (0.9-3.2); Lymphocytes Percent Auto 42.1 % (18.3-44.2); Mean Corpuscular HGB Conc 31.5 g/dl (32-36); Mean Corpuscular Volume 95.3 fl (80-100); Mean Platelet Volume 10.3 fl (7.4-10.4); Monocytes Absolute Auto 0.7 K/mm3 (0.1-0.6); Monocytes Percent Auto 12.7 % (2.6-8.5); Neutrophils Absolute Auto 2.2 K/mm3 (1.3-6.7); Neutrophils Percent Auto 41.6 % (45.5-73.1); Platelet Count Result 212 k/mm3 (150-375); Red Blood Count 4.06 M/mm3 (4.2-5.4); Red Cell Distribution Width 14.6 % (11.5-14.5); White Blood Count 5.4 K/mm3 (4.5-10.0)
[2023-10-04 18:42] LABS: Alanine Aminotransferase 26 U/L (6-35); Albumin Level 4.1 g/dL (3.5-5.1); Alkaline Phosphatase 101 U/L (38-126); Anion Gap 7 mmol/L (4-12); Aspartate Amino Transferase 41 U/L (14-36); Bilirubin,Total 0.4 mg/dL (0.2-1.3); Blood Urea Nitrogen 32 mg/dL (7-17); Calcium 9.7 mg/dL (8.4-10.2); Carbon Dioxide 29 mmol/L (22-30); Chloride 103 mmol/L (98-107); Estimated CRCL calculation 35 ml/min; Estimated Glomerular Filt Rate 53; Glucose 81 mg/dL (65-110); INR 1.1; Lipase 114 U/L (23-300); Partial Thromboplastin Time 27.9 Seconds (22.3-36.8); Potassium 3.9 mmol/L (3.4-5.0); Sodium 139 mmol/L (137-145)
[2023-10-04 18:53] LABS: Troponin I 0.016 ng/mL (0.000-0.034)
[2023-10-04] MEDS: MORPHINE SULFATE (*CRX) 4 MG/ML INJ IV PUSH (19:28)
[2023-10-04] MEDS: dilTIAZem HCl INJ 25 MG/5 ML VIAL 10 MG IV PUSH ×2 (19:28→20:46)
[2023-10-04] MEDS: LACTATED RINGERS 1,000 ML 999 ML IV CONT (19:29)
[2023-10-04 21:56] LABS: Troponin I 0.044 ng/mL (0.000-0.034)
--- NOTE | 2023-10-04 22:00 | PM.IMHP ---
H&P: HPI History of Present Illness Date/Time: 10/04/23 22:00 Chief Complaint: chest pain Narrative: This is an 82-year-old female with past medical history significant for recurrent urinary tract infection, hypothyroidism, atrial fibrillation, GERD, dyslipidemia, DJD. patient presents to the emergency room due to chest heaviness, denies dizziness, denies lightheadedness, denies cough, denies production of sputum, patient was found to have atrial fibrillation with rapid ventricular response in the emergency room which responded to bolus diltiazem. Preliminary workup was significant for slight elevation of troponins. Patient denies any dizziness, lightheadedness, PND, orthopnea. patient has been placed in observation for further evaluation management and treatment. EXAMINATION: XR chest 2V Exam Date/Time: 10/04/2023 18:27 CDT HISTORY: chest pain Comparison: 03/01/2023. RESULT: Lines, tubes, and devices: None. Lungs and pleura: Mild peripheral reticular opacities. Senescent changes. Cardiomediastinal silhouette: Stable. Other: No acute osseous or upper abdominal finding. IMPRESSION: Mild interstitial edema. EXAMINATION: CTA chest PE protocol DATE: 10/04/2023 20:01 INDICATION: Afib rvr, leg swelling TECHNIQUE: Computed tomography angiography (CTA) of the chest was performed with 100 mL Omnipaque-350 intravenous contrast timed to evaluate the pulmonary arteries. Coronal maximum intensity projection 3D-reconstructions were created by the technologist. The dose-length product (DLP) was 389.89 mGy-cm. Automated exposure control and iterative reconstruction technique were employed. COMPARISON: 03/02/2022; x-ray chest, same date. FINDINGS: Lung parenchyma and airways: Dependent groundglass opacities and interlobular septal thickening. Patent airways. Pleura: Unremarkable. Thoracic inlet, axillae and chest wall: Unremarkable. Thoracic aorta: No significant dilation. No dissection. Mediastinum: Dilated central pulmonary arteries as can be seen with pulmonary arterial hypertension. Heart and pericardium: Mitral annulus calcification. Cardiomegaly. Coronary artery calcifications: Mild. Upper abdomen: No significant finding. Bones: No acute osseous finding. Pulmonary arteries: Study quality: Adequate. No pulmonary emboli detected. IMPRESSION: No CT evidence of acute pulmonary embolus. Mild interstitial edema. Review of Systems Review of Systems: Chest heaviness Constitutional: Constitutional: Denies chills, Denies fever(s), Denies malaise, Denies night sweats, Denies poor appetite and Denies weakness PMFSH Past Medical History Medical History Alopecia Atrial fibrillation with rapid ventricular response BMI 28.0-28.9,adult BMI 29.0-29.9,adult BMI 30.0-30.9,adult Cataract, right eye Colitis Confusion COVID-30 March 2021 Diverticulitis ETD (eustachian tube dysfunction) Foreign body in ear GERD (gastroesophageal reflux disease) Hematuria High risk medication use Hyperlipidemia Hyperlipidemia Hypothyroidism Impacted cerumen of both ears Interstitial cystitis (chronic) with hematuria Lumbar spondylosis Macular degeneration Osteoarthritis of right knee Osteoporosis Otitis media Perforation of right tympanic membrane Persistent cough Recurrent UTI (urinary tract infection) Screen for colon cancer Screening for breast cancer Screening for thyroid disorder UTI (urinary tract infection) Vitamin B deficiency Vitamin D deficiency Vitamin D deficiency, unspecified Surgical History Surgical History History of bladder surgery Family History Family History (Updated 10/05/23 @ 00:18 by Ronald Barakat RN) Father Acute myocardial infarction Heart disease Mother Alcohol abuse Tobacco abuse Canc
--- NOTE | 2023-10-04 22:10 | ED.CHESTPAIN ---
HPI - Chest Pain General Chief Complaint: Chest Pain Stated Complaint: heart problems -CP Time Seen by Provider: 10/04/23 18:24 History of Present Illness HPI narrative: This is an 82-year-old female with a past medical history including known atrial fibrillation. Today patient presents to the emergency room with a chief complaint of sudden onset chest pressure sensation left side of her chest that was associated with rapid heartbeat palpitation sensation. She has noticed that her heart rate is in the 130s to 140s. She has had similar episodes like this in the past and was found to be in AFib with RVR. Patient does note dyspnea, nauseousness, vomiting, headache vision changes, back pain, abdominal pain, weakness, fatigue. She was otherwise in her normal state of health. She has been taking her sotalol b.i.d. without any missed dosages. She is not on any Eliquis or any other anticoagulation given that she has had significant GI bleeding history in the past. Related Data Home Medications Medication Instructions Recorded Confirmed mecobalamin (vitamin B12) 1,000 1,000 mcg PO DAILY 08/28/23 08/28/23 mcg chewable tablet methenamine hippurate 1 gram tablet 1 g PO BID 09/03/23 Allergies Allergy/AdvReac Type Severity Reaction Status Date / Time prednisone Allergy Unknown Unknown Verified 10/04/23 17:54 clavulanic acid Allergy Rash Verified 10/04/23 17:54 [From Augmentin] Review of Systems Review of Systems: As reviewed above and otherwise negative [facility] Past Medical History Medical History Alopecia Atrial fibrillation with rapid ventricular response BMI 28.0-28.9,adult BMI 29.0-29.9,adult BMI 30.0-30.9,adult Cataract, right eye Colitis Confusion COVID-30 March 2021 Diverticulitis ETD (eustachian tube dysfunction) Foreign body in ear GERD (gastroesophageal reflux disease) Hematuria High risk medication use Hyperlipidemia Hyperlipidemia Hypothyroidism Impacted cerumen of both ears Interstitial cystitis (chronic) with hematuria Lumbar spondylosis Macular degeneration Osteoarthritis of right knee Osteoporosis Otitis media Perforation of right tympanic membrane Persistent cough Recurrent UTI (urinary tract infection) Screen for colon cancer Screening for breast cancer Screening for thyroid disorder UTI (urinary tract infection) Vitamin B deficiency Vitamin D deficiency Vitamin D deficiency, unspecified Surgical History Surgical History History of bladder surgery Family History Family History Father Acute myocardial infarction Heart disease Mother Alcohol abuse Tobacco abuse Cancer Sibling Skin cancer Sibling Breast cancer Grandparent Heart disease Grandparent Heart disease Social History Social History Social History: patient is a she has two kids. Her daughter Nisa is her surrogate. She wishes to be DNR. 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
[2023-10-04] MEDS: ASPIRIN 325 MG TABLET PO (22:25)
[2023-10-04] MEDS: SOTALOL HCL 40 MG TABLET 20 MG PO (23:50)
[2023-10-05] VITALS (20 sets, daily range): BP systolic 114–140; BP diastolic 49–94; PULSE 51–120; RESP 15–18; TEMP 35.7–36.9; O2SAT 96–98; BMI 28.8
--- NOTE | 2023-10-05 | ECHO_ITS ---
Patient Info Name: Maria A Patel Age: 82 years : 1940 Gender: Female Ht: 63 in Wt: 163 lbs BSA: 1.84 m2 HR: 60 bpm BP: 122 / 66 mmHg Heart Rhythm: Sinus Rhythm Technical Quality: Fair Exam Date: 10/05/2023 12:36 PM Exam Location: Echo Lab Patient Status: Outpatient Admit Date: 10/04/2023 Staff Ordering Physician: Luis Ricketts MD (alia/emilio) Boatbuilder Supervisor: Anastasiya Rodriguez RDCS Attending Provider: Zulema George MD Referring Physician: Jamarcus PEREZ; Exam Type: CA echo doppler color flow Study Info Indications - Afib, CP Complete two-dimensional, color flow and Doppler transthoracic echocardiogram is performed. Summary 1. Complete two-dimensional, color flow and Doppler transthoracic echocardiogram is performed. 2. Moderate concentric left ventricular hypertrophy with vigorous systolic function and grade 2 diastolic noncompliance. 3. Left atrial enlargement. 4. Heavily calcified mitral valve annulus. 5. Sclerotic aortic valve with trivial AI. 6. Modest tricuspid regurgitation with estimated PA pressure of 49. 7. Normal sinus rhythm during this exam. Left Ventricle Left ventricular chamber dimension is normal. Left ventricular systolic function is hyperdynamic, estimated at >70%. There is moderate concentric increased left ventricular wall thickness. The left ventricular diastolic function is grade II diastolic dysfunction. Right Ventricle Right ventricular chamber dimension is normal. Left Atria Left atrial chamber dimension is moderately enlarged. Right Atria Right atrial chamber dimension is normal. Aortic Valve The aortic valve is trileaflet. There is mild aortic valve sclerosis. Pulmonic Valve The pulmonic valve is normal. Mitral Valve The mitral valve has normal leaflets. There is trace mitral valve regurgitation. The mitral valve annulus is severely calcified. Tricuspid Valve The tricuspid valve leaflets are normal. There is trace tricuspid valve regurgitation. Moderate pulmonary hypertension, estimated pulmonary arterial systolic pressure is 50 mmHg. Pericardium/Pleural The pericardium appears normal. Aorta The aortic root size at the sinus of Valsalva is normal. Left Ventricular Outflow Tract Name Value Normal LVOT 2D LVOT Diameter 2.0 cm LVOT Doppler LVOT Peak Gradient 3 mmHg LVOT Mean Gradient 2 mmHg LVOT VTI 18 cm LVOT VTI/AV VTI Ratio 0.6 LVOT Stroke Volume 56 ml LVOT CO 3.2 l/min LVOT CI 1.7 l/min/m2 Pulmonic Valve Name Value Normal RVOT Doppler RVOT Peak Gradient 2 mmHg PV Doppler PV Peak Gradient 3 mmHg Mitral Valve
[2023-10-05 00:59] LABS: Troponin I 0.041 ng/mL (0.000-0.034)
--- NOTE | 2023-10-05 07:52 | ADMGEN ---
This patient, Maria A Patel, was admitted to IMU Room 214-01. Patient/family oriented to hospital policies and general routines including ID bracelet, bed and alarms, visiting hours, pain management, procedures, bathroom and other care routines, personal items, smoking policy, room service/diet, and visiting hours. Information on how to activate the Rapid Response Team has been discussed. Patient/Family are encouraged to report perceived risks to care and to ask questions if they do not understand what they are told or what they should do.
--- NOTE | 2023-10-05 07:53 | ECG_ITS ---
Test Date: 2023-10-05 10:59:[address] Rate: 62 P: 32 CA: 168 QRS: -9 QRSD: 85 T: 34 QT: 435 QTc: 445 Interpretive Statements SINUS RHYTHM VOLTAGE CRITER FOR LVH BORDERLINE ECG Compared to ECG 10/04/2023 18:17:51 Atrial fibrillation no longer present Right bundle-branch block no longer present Electronically Signed On 10-05-2023 11:48:10 CDT by Bernardo Hamilton D.O.
--- NOTE | 2023-10-05 09:28 | P.PNIM_ITS ---
Progress Note: A&P Assessment and Plan (1) Chest pain: Code(s): R07.9 - Chest pain, unspecified Status: Acute (2) A-fib: Code(s): I48.91 - Unspecified atrial fibrillation Status: Deleted Plan This is an 82-year-old female with past medical history significant for recurrent urinary tract infection, hypothyroidism, atrial fibrillation, GERD, dy slipidemia, DJD. patient presents to the emergency room due to chest heaviness, (1) Chest pain and elevated troponin Code(s): R07.9 - Chest pain, unspecified Status: Acute Assessment and Plan: Place in observation in IMU Serial troponins: 1st negative and 2nd and a 3rd positive, trending up EKG showed AFib RVR heart rate 132, no specific ST T-wave changes Echocardiogram pending Consult post closing specialist for evaluation and treatment (2) Atrial fibrillation with RVR: Code(s): I48.91 - Unspecified atrial fibrillation Status: Acute Assessment and Plan: Responded to diltiazem bolus medical office receptionist assistant Management per post closing specialist (3) Elevated troponin: Code(s): R79.89 - Other specified abnormal findings of blood chemistry Status: Acute Assessment and Plan: Continue to trend No EKG changes Likely to be type 2 GA (4) Hyperlipidemia: Code(s): E78.5 - Hyperlipidemia, unspecified Status: Acute Assessment and Plan: Follow-up in outpatient setting (5) GERD (gastroesophageal reflux disease): Qualifiers: Esophagitis presence: esophagitis presence not specified Qualified Code(s): K21.9 - Gastro-esophageal reflux disease without esophagitis Code(s): K21.9 - Gastro-esophageal reflux disease without esophagitis Status: Acute Assessment and Plan: PPI (6) Hypothyroidism: Code(s): E03.9 - Hypothyroidism, unspecified Status: Acute Assessment and Plan: Continue levothyroxine Subjective Date/time seen: 10/05/23 09:28 Interval history: I saw examined patient today. Patient denies chest pain today, also denies palpitation, lightheadedness Exam Narrative: GENERAL: Pleasant, in no acute distress. Well-nourished. - EYES: EOMI. Anicteric. - HENT: Moist mucous membranes. - LUNGS: Clear to auscultation bilateral ly, no wheezing, rhonchi, or rales. - CARDIOVASCULAR: Regular rate and rhyth m. No murmur. No JVD. - ABDOMEN: Soft, non-tender and non-dist ended. No palpable masses. - EXTREMITIES: No edema. Peripheral puls es 2+. Non-tender. - NEUROLOGIC: No focal neurological defi cits. CN II-XII grossly intact. - PSYCHIATRIC: Awake, Alert and oriented x 3. Appropriate mood and affect. - SKIN: No rashes or lesions. Warm. - LYMPH: No cervical lymphadenopathy. Objective Data Vital Signs Vital Signs: Vital Signs - 24 hr 10/04/23 17:55 10/04/23 19:13 10/04/23 19:14 Temperature 97.6 F Pulse Rate 83 138 H Respiratory Rate 20 19 Blood Pressure 133/99 H 122/86 Pulse Oximetry 97 96 Oxygen Delivery Room Air Room
--- NOTE | 2023-10-05 09:28 | PM.IMPN ---
Progress Note: A&P Assessment and Plan (1) Chest pain: Code(s): R07.9 - Chest pain, unspecified Status: Acute (2) A-fib: Code(s): I48.91 - Unspecified atrial fibrillation Status: Deleted Plan This is an 82-year-old female with past medical history significant for recurrent urinary tract infection, hypothyroidism, atrial fibrillation, GERD, dyslipidemia, DJD. patient presents to the emergency room due to chest heaviness, (1) Chest pain and elevated troponin Code(s): R07.9 - Chest pain, unspecified Status: Acute Assessment and Plan: Place in observation in IMU Serial troponins: 1st negative and 2nd and a 3rd positive, trending up EKG showed AFib RVR heart rate 132, no specific ST T-wave changes Echocardiogram pending Consult uke operator for evaluation and treatment (2) Atrial fibrillation with RVR: Code(s): I48.91 - Unspecified atrial fibrillation Status: Acute Assessment and Plan: Responded to diltiazem bolus whiting can worker Management per uke operator (3) Elevated troponin: Code(s): R79.89 - Other specified abnormal findings of blood chemistry Status: Acute Assessment and Plan: Continue to trend No EKG changes Likely to be type 2 MD (4) Hyperlipidemia: Code(s): E78.5 - Hyperlipidemia, unspecified Status: Acute Assessment and Plan: Follow-up in outpatient setting (5) GERD (gastroesophageal reflux disease): Qualifiers: Esophagitis presence: esophagitis presence not specified Qualified Code(s): K21.9 - Gastro-esophageal reflux disease without esophagitis Code(s): K21.9 - Gastro-esophageal reflux disease without esophagitis Status: Acute Assessment and Plan: PPI (6) Hypothyroidism: Code(s): E03.9 - Hypothyroidism, unspecified Status: Acute Assessment and Plan: Continue levothyroxine Subjective Date/time seen: 10/05/23 09:28 Interval history: I saw examined patient today. Patient denies chest pain today, also denies palpitation, lightheadedness Exam Narrative: GENERAL: Pleasant, in no acute distress. Well-nourished. - EYES: EOMI. Anicteric. - HENT: Moist mucous membranes. - LUNGS: Clear to auscultation bilaterally, no wheezing, rhonchi, or rales. - CARDIOVASCULAR: Regular rate and rhythm. No murmur. No JVD. - ABDOMEN: Soft, non-tender and non-distended. No palpable masses. - EXTREMITIES: No edema. Peripheral pulses 2+. Non-tender. - NEUROLOGIC: No focal neurological deficits. CN II-XII grossly intact. - PSYCHIATRIC: Awake, Alert and oriented x 3. Appropriate mood and affect. - SKIN: No rashes or lesions. Warm. - LYMPH: No cervical lymphadenopathy. Objective Data Vital Signs Vital Signs: Vital Signs - 24 hr 10/04/23 17:55 10/04/23 19:13 10/04/23 19:14 Temperature 97.6 F Pulse Rate 83 138 H Respiratory Rate 20 19 Blood Pressure 133/99 H 122/86 Pulse Oximetry 97 96 Oxygen Delivery Room Air Room Air 10/04/23 19:31 10/04/23 20:30 10/04/23 21:10 Temperature Pulse Rate 137 H 116 H 81 Respiratory Rate 18 20 Blood Pressure 124/93 H Pulse Oximetry 96 94 Oxygen Delivery 10/04/23 20:46 10/04/23 21:01 10/04/23 21:21 Temperature Pulse Rate 127 H 81 96 Respiratory Rate 17 19 13 Blood Pressure Pulse Oximetry 95 97 96 Oxygen Delivery 10/04/23 21:30 10/04/23 21:45 10/04/23 22:00 Temperature Pulse Rate 103 H 106 H 121 H Respiratory Rate 19 22 H 18 Blood Pressure Pulse Oximetry 95 94 96 Oxygen Delivery 10/04/23 23:50 10/04/23 23:40 10/05/23 04:00 Temperature 97.5 F L 97.3 F L Pulse Rate 116 H 120 H 60 Respiratory Rate 16 15 Blood Pressure 119/74 114/94 H Pulse Oximetry 96 96 Oxygen Delivery 10/05/23 00:00 10/05/23 02:00 10/05/23 04:00 Temperature Pulse Rate 120 H 103 H 119 H Respiratory Rate Blood Pressure Pulse Oximetry Oxygen Delivery 0
--- NOTE | 2023-10-05 10:30 | PM.CNCAR ---
Assessment and Plan Assessment and plan (1) Paroxysmal atrial fibrillation with RVR: Code(s): I48.0 - Paroxysmal atrial fibrillation Status: Acute Assessment and Plan: Has converted to sinus rhythm. Has been fully compliant with her Sotalol. Continue her Sotalol at 80mg BID. Will add low dose Toprol 25mg once daily and see how she tolerates that. (2) Elevated troponin: Code(s): R79.89 - Other specified abnormal findings of blood chemistry Status: Acute Assessment and Plan: Minimally elevated and flat. Does not appear to be an acute coronary syndrome. Likely due to demand ischemia from AFIB with RVR. (3) Chest pain: Code(s): R07.9 - Chest pain, unspecified Status: Acute Assessment and Plan: She does have some reproducible chest wall tenderness. Stress test in 2022 was negative (had chest pain previously with her prior AFIB episodes). Echo ordered. If echocardiogram without significant abnormality, then no additional workup needed. Plan Recommendations and plan discussed with Hospitalist. History of Present Illness History of Present Illness Consult date/time: 10/05/23 10:30 Requesting physician: Oracio Oropeza MD Consult reason: atrial fibrillation Reason For Visit: Afib RVR, NSTEMI Narrative: This is an 82 year old female with paroxysmal atrial fibrillation, recurrent UTIs, hematuria who presented with palpitations and chest pain. Found to be in atrial fibrillation with RVR. She was given total of IV Diltiazem 20mg and a dose of Sotalol 20mg PO once. She converted to sinus rhythm at about 5:50AM this morning. She reports that she feels much better since converting to sinus rhythm. She does report a mild substernal chest tightness. Initial troponin negative, repeat at 0.044, followed by 0.041. Patient reports she has been under a lot of stress of late, and is tearful at times during my conversation with her. Review of Systems Review of Systems: All systems reviewed & are unremarkable except as noted in HPI and below (HPI) [facility] Past Medical History Medical History Alopecia Atrial fibrillation with rapid ventricular response BMI 28.0-28.9,adult BMI 29.0-29.9,adult BMI 30.0-30.9,adult Cataract, right eye Colitis Confusion COVID-30 March 2021 Diverticulitis ETD (eustachian tube dysfunction) Foreign body in ear GERD (gastroesophageal reflux disease) Hematuria High risk medication use Hyperlipidemia Hyperlipidemia Hypothyroidism Impacted cerumen of both ears Interstitial cystitis (chronic) with hematuria Lumbar spondylosis Macular degeneration Osteoarthritis of right knee Osteoporosis Otitis media Perforation of right tympanic membrane Persistent cough Recurrent UTI (urinary tract infection) Screen for colon cancer Screening for breast cancer Screening for thyroid disorder UTI (urinary tract infection) Vitamin B deficiency Vitamin D deficiency Vitamin D deficiency, unspecified Surgical History Surgical History History of bladder surgery Family History Family History Father Acute myocardial infarction Heart disease Mother Alcohol abuse Tobacco abuse Cancer Sibling Skin cancer Sibling Breast cancer Grandparent Heart disease Grandparent Heart disease Social History Social History Social History: patient is a she has two kids. Her daughter Nisa is her surrogate. She wishes to be DNR. Smoking status: Never smoker Second hand tobacco smoke exposure: Yes Alcohol intake: never Alcohol use details: rare Substance use: never Substance use type: does not use Do You Feel Safe in your Home?: Yes Lack of Transportation: No Lack of Food: Never True Current Housing: [facility]
[2023-10-05] MEDS: SOTALOL HCL 80 MG TABLET PO ×2 (11:32→20:28)
[2023-10-05] MEDS: METOPROLOL SUCCINATE EXT REL 25 MG TABCR PO (11:33)
--- NOTE | 2023-10-05 18:40 | PC.NURSE ---
Patient states I know I'm not supposed to be up walking by myself, but I am. Patient encouraged to ask for assistance due to fall risk.
[2023-10-06] VITALS (10 sets, daily range): BP systolic 125–142; BP diastolic 62–71; PULSE 55–71; RESP 18–20; TEMP 36.7–36.8; O2SAT 97–98
[2023-10-06] MEDS: Non-Formulary (methenamine hippurate 1 gram ORAL tablet) 1 EACH PO ×2 (00:04→08:11)
[2023-10-06 00:29] LABS: Appearance Urine Turbid (Clear); Bacteria Urine 4+ /hpf; Bilirubin Urine Negative (Negative); Blood Urine 2+ (Negative); Color Urine Yellow (Yellow); Glucose Urine UA Negative (Negative); Ketones Urine Negative (Negative); Leukocyte Esterase Ur 3+ LEU/UL (Negative); Nitrate Urine Negative (Negative); Protein Urine 2+ mg/dL (Negative); RBC Urine 51-100 /hpf (0-2); Squamous Epithelial Cell Urine Occasional /hpf (Few); Urobilinogen Urine 0.2 mg/dL (<2.0); WBC Urine >100 /hpf (0-3)
[2023-10-06 00:32] LABS: Add Urine Microscopic? YES
[2023-10-06] MEDS: traZODone HCL 50 MG TABLET PO (01:39)
[2023-10-06] MEDS: LEVOTHYROXINE SODIUM 25 MCG TABLET PO (06:06)
[2023-10-06] MEDS: SOTALOL HCL 80 MG TABLET PO (08:11)
[2023-10-06] MEDS: METOPROLOL SUCCINATE EXT REL 25 MG TABCR PO (08:12)
--- NOTE | 2023-10-06 09:47 | PM.IMPN ---
Progress Note: A&P Assessment and Plan (1) Chest pain: Code(s): R07.9 - Chest pain, unspecified Status: Acute (2) A-fib: Code(s): I48.91 - Unspecified atrial fibrillation Status: Deleted Plan This is an 82-year-old female with past medical history significant for recurrent urinary tract infection, hypothyroidism, atrial fibrillation, GERD, dyslipidemia, DJD. patient presents to the emergency room due to chest heaviness, Chest pain and elevated troponin Code(s): R07.9 - Chest pain, unspecified Status: Acute Assessment and Plan: Serial troponins: 1st negative and 2nd and a 3rd positive, trending up EKG showed AFib RVR heart rate 132, no specific ST T-wave changes Echocardiogram pending Consult qa automation engineer for evaluation and treatment, cardiac considers atypical chest pain Atrial fibrillation with RVR: Code(s): I48.91 - Unspecified atrial fibrillation Status: Acute Assessment and Plan: Responded to diltiazem bolus human resources file clerk Management per qa automation engineer. Troy's recommends to continue sotalol, continue metoprolol, patient is not on blood thinner because of per history of bleeding, cardioverted discussed with the patient about anticoagulation versus left atrial appendage closure Elevated troponin: Code(s): R79.89 - Other specified abnormal findings of blood chemistry Status: Acute Assessment and Plan: Continue to trend No EKG changes Likely to be type 2 PR Hyperlipidemia: Code(s): E78.5 - Hyperlipidemia, unspecified Status: Acute Assessment and Plan: Follow-up in outpatient setting GERD (gastroesophageal reflux disease): Qualifiers: Esophagitis presence: esophagitis presence not specified Qualified Code(s): K21.9 - Gastro-esophageal reflux disease without esophagitis Code(s): K21.9 - Gastro-esophageal reflux disease without esophagitis Status: Acute Assessment and Plan: PPI Hypothyroidism: Code(s): E03.9 - Hypothyroidism, unspecified Status: Acute Assessment and Plan: Continue levothyroxine UTI UA shows pyuria, nitrite negative, previous culture grows Pseudomonas, pansensitive, will switch from ceftriaxone cefdinir p.o. Subjective Date/time seen: 10/06/23 09:47 Interval history: I saw examined patient today. Patient denies chest pain today, also denies palpitation, lightheadedness, patient has dysuria feeling Exam Narrative: GENERAL: Pleasant, in no acute distress. Well-nourished. - EYES: EOMI. Anicteric. - HENT: Moist mucous membranes. - LUNGS: Clear to auscultation bilaterally, no wheezing, rhonchi, or rales. - CARDIOVASCULAR: Regular rate and rhythm. No murmur. No JVD. - ABDOMEN: Soft, non-tender and non-distended. No palpable masses. - EXTREMITIES: No edema. Peripheral pulses 2+. Non-tender. - NEUROLOGIC: No focal neurological deficits. CN II-XII grossly intact. - PSYCHIATRIC: Awake, Alert and oriented x 3. Appropriate mood and affect. - SKIN: No rashes or lesions. Warm. - LYMPH: No cervical lymphadenopathy. Objective Data Vital Signs Vital Signs: Vital Signs - 24 hr 10/05/23 10:00 10/05/23 11:23 10/05/23 11:32 Temperature 98.1 F Pulse Rate 61 62 66 Respiratory Rate 16 Blood Pressure 140/81 Pulse Oximetry 96 Oxygen Delivery 10/05/23 11:33 10/05/23 12:00 10/05/23 14:00 Temperature Pulse Rate 68 67 57 L Respiratory Rate Blood Pressure Pulse Oximetry Oxygen Delivery 10/05/23 15:54 10/05/23 16:00 10/05/23 18:00 Temperature 98.4 F Pulse Rate 60 59 L 62 Respiratory Rate 16 Blood Pressure 128/86 Pulse Oximetry 98 Oxygen Delivery 10/05/23 19:56 10/05/23 20:28 10/05/23 23:23 Temperature 98.4 F 98.3 F Pulse Rate 57 L 62 51 L Respiratory Rate 18 18 Blood Pressure 130/82 127/49 L Pulse Oximetry 98 98 Oxygen Delivery 10/05/23 20:00 10/05/23 20
[2023-10-06 10:40] LABS: Hematocrit 40.3 % (37.0-47.0); Hemoglobin 12.8 g/dL (12.0-15.0); Mean Corpuscular HGB Conc 31.8 g/dl (32-36); Mean Corpuscular Hemoglobin 30.5 pg (26-34); Mean Corpuscular Volume 96.2 fl (80-100); Mean Platelet Volume 10.6 fl (7.4-10.4); Platelet Count Result 214 k/mm3 (150-375); Red Blood Count 4.19 M/mm3 (4.2-5.4); Red Cell Distribution Width 14.5 % (11.5-14.5); White Blood Count 5.6 K/mm3 (4.5-10.0)
[2023-10-06 10:52] LABS: Anion Gap 11 mmol/L (4-12); Blood Urea Nitrogen 24 mg/dL (7-17); Calcium 9.3 mg/dL (8.4-10.2); Carbon Dioxide 26 mmol/L (22-30); Chloride 102 mmol/L (98-107); Estimated CRCL calculation 44 ml/min; Estimated Glomerular Filt Rate > 60; Glucose 107 mg/dL (65-110); Potassium 3.8 mmol/L (3.4-5.0); Sodium 139 mmol/L (137-145)
--- NOTE | 2023-10-06 12:08 | PM.DS ---
DS: Admitting Diagnosis Discharge Date 10/06/23 Admitting Diagnosis (1) Chest pain: Code(s): R07.9 - Chest pain, unspecified Status: Acute (2) A-fib: Code(s): I48.91 - Unspecified atrial fibrillation Status: Deleted DS: Discharge Diagnosis Discharge Diagnosis (1) Chest pain: Code(s): R07.9 - Chest pain, unspecified Status: Acute (2) A-fib: Code(s): I48.91 - Unspecified atrial fibrillation Status: Deleted DS: Summary Hospital Course Hospital Course: This is an 82-year-old female with past medical history significant for recurrent urinary tract infection, hypothyroidism, atrial fibrillation, GERD, dyslipidemia, DJD. patient presents to the emergency room due to chest heaviness, The following med issues have been addressed during hospitalization Chest pain and elevated troponin Code(s): R07.9 - Chest pain, unspecified Status: Acute Assessment and Plan: Serial troponins: 1st negative and 2nd and a 3rd positive, trending up EKG showed AFib RVR heart rate 132, no specific ST T-wave changes Echocardiogram pending Consult window display designer for evaluation and treatment, cardiac considers atypical chest pain Atrial fibrillation with RVR: Code(s): I48.91 - Unspecified atrial fibrillation Status: Acute Assessment and Plan: Responded to diltiazem bolus child monitor Management per window display designer. Troy's recommends to continue sotalol, continue metoprolol, patient is not on blood thinner because of per history of bleeding, cardioverted discussed with the patient about anticoagulation versus left atrial appendage closure Elevated troponin: Code(s): R79.89 - Other specified abnormal findings of blood chemistry Status: Acute Assessment and Plan: Continue to trend No EKG changes Likely to be type 2 SC Hyperlipidemia: Code(s): E78.5 - Hyperlipidemia, unspecified Status: Acute Assessment and Plan: Follow-up in outpatient setting GERD (gastroesophageal reflux disease): Qualifiers: Esophagitis presence: esophagitis presence not specified Qualified Code(s): K21.9 - Gastro-esophageal reflux disease without esophagitis Code(s): K21.9 - Gastro-esophageal reflux disease without esophagitis Status: Acute Assessment and Plan: PPI Hypothyroidism: Code(s): E03.9 - Hypothyroidism, unspecified Status: Acute Assessment and Plan: Continue levothyroxine UTI UA shows pyuria, nitrite negative, previous culture grows Pseudomonas, pansensitive, will switch from ceftriaxone cefdinir p.o. Time Spent with Patient Time attestation: Total time spent providing and/or coordinating discharge services: Exam Narrative: GENERAL: Pleasant, in no acute distress. Well-nourished. - EYES: EOMI. Anicteric. - HENT: Moist mucous membranes. - LUNGS: Clear to auscultation bilaterally, no wheezing, rhonchi, or rales. - CARDIOVASCULAR: Regular rate and rhythm. No murmur. No JVD. - ABDOMEN: Soft, non-tender and non-distended. No palpable masses. - EXTREMITIES: No edema. Peripheral pulses 2+. Non-tender. - NEUROLOGIC: No focal neurological deficits. CN II-XII grossly intact. - PSYCHIATRIC: Awake, Alert and oriented x 3. Appropriate mood and affect. - SKIN: No rashes or lesions. Warm. - LYMPH: No cervical lymphadenopathy. DS: Data Data Completed and Pending Labs on day of discharge: Labs from last 24 hours 10/06/23 10/06/23 10:28 00:20 WBC 5.6 RBC 4.19 L Hgb 12.8 Hct 40.3 MCV 96.2 MCH 30.5 MCHC 31.8 L RDW 14.5 Plt Count 214 MPV 10.6 H Sodium 139 Potassium 3.8 Chloride 102 Carbon Dioxide 26 Anion Gap 11 BUN 24 H Creatinine 0.80 Estim Creat Clear Calc 44 Estimated GFR > 60 Glucose 107 Calcium 9.3 Urine Color Yellow Urine Appearance Turbid H Urine pH 7.0 Ur Specific [place] 1.020 U
--- NOTE | 2023-10-06 12:49 | PM.PNCARD ---
Progress Note: A&P Assessment and Plan (1) Paroxysmal atrial fibrillation with RVR: Code(s): I48.0 - Paroxysmal atrial fibrillation Status: Acute Plan Approximate fibrillation currently in sinus rhythm Elevated troponin mildly elevated likely demand ischemia in setting of AFib with RVR Patient not on oral anticoagulation because of prior history of bleeding Plan Continue sotalol Continue metoprolol Patient courage to discuss with her primary engineering teacher about oral anticoagulation versus left atrial appendage closure Follow-up in the cardiology clinic Subjective Date/time seen: 10/06/23 12:49 Interval history: no acute events Review of Systems Review of Systems: All systems reviewed & are unremarkable except as noted in HPI and below Exam Const: General: comfortable and no acute distress Other: Able to lie flat HENMT: Face/Nose/Sinus: Normal nares present and no epistaxis Mouth: Yes moist mucous membranes Eyes: Sclera: sclerae normal Pupils: Equal, round and reactive pupils present Neck: Neck: supple and no JVD Carotids: no bruits Resp: Auscultation: clear to auscultation bilaterally and lung sounds not diminished Other: No chest wall tenderness Cardio: Rate: regular rate Rhythm: regular rhythm Heart sounds: no gallops, no murmurs and no rubs GI: GI Palp: Yes Soft to palpation and No Tenderness to palpation present (GI) Auscultation: normal bowel sounds Skin: General skin exam: normal color, rashes and/or lesions noted and no erythema Other: Warm Neuro: Cranial nerves: Yes Equal, round and reactive pupils present Speech: normal speech Other: No obvious focal deficit or facial asymmetry Extrem: General: no edema Other: Normal capillary refills Intact distal pulses. Objective Data Vital Signs Vital Signs: Vital Signs - 24 hr 10/05/23 14:00 10/05/23 15:54 10/05/23 16:00 Temperature 36.9 C Pulse Rate 57 L 60 59 L Respiratory Rate 16 Blood Pressure 128/86 Pulse Oximetry 98 Oxygen Delivery 10/05/23 18:00 10/05/23 19:56 10/05/23 20:28 Temperature 36.9 C Pulse Rate 62 57 L 62 Respiratory Rate 18 Blood Pressure 130/82 Pulse Oximetry 98 Oxygen Delivery 10/05/23 23:23 10/05/23 20:00 10/05/23 20:00 Temperature 36.8 C Pulse Rate 51 L 56 L Respiratory Rate 18 Blood Pressure 127/49 L Pulse Oximetry 98 Oxygen Delivery Room Air 10/05/23 22:00 10/06/23 00:00 10/06/23 00:00 Temperature Pulse Rate 52 L 59 L Respiratory Rate Blood Pressure Pulse Oximetry Oxygen Delivery Room Air 10/06/23 03:48 10/06/23 02:00 10/06/23 04:00 Temperature 36.8 C Pulse Rate 56 L 55 L Respiratory Rate 18 Blood Pressure 125/62 Pulse Oximetry 98 Oxygen Delivery Room Air 10/06/23 04:00 10/06/23 06:00 10/06/23 08:11 Temperature Pulse Rate 56 L 60 71 Respiratory Rate Blood Pressure Pulse Oximetry Oxygen Delivery 10/06/23 08:12 10/06/23 08:00 10/06/23 08:00 Temperature 36.7 C Pulse Rate 66 60 Respiratory Rate 20 Blood Pressure 142/66 H Pulse Oximetry 97 Oxygen Delivery Room Air 10/06/23 08:00 10/06/23 10:00 10/06/23 12:00 Temperature 36.7 C Pulse Rate 60 64 58 L Respiratory Rate 20 Blood Pressure 128/71 Pulse Oximetry 97 Oxygen Delivery Intake/Output Intake/Output: Intake & Output 10/03/23 10/04/23 10/05/23 10/06/23 23:59 23:59 23:59 23:59 Intake Total 1000 1750 930 Output Total 200 500 Balance 1000 1550 430 Meds/Results Medications: Active Medications Generic Name Dose Route Start Last Admin Trade Name Freq PRN Reason Stop Dose Admin Acetaminophen 650 mg 10/04/23 22:02 Acetaminophen 325 Mg Tablet PO Q4H PRN Mild Pain (1-3) or Fever Ceftriaxone Sodium 1 gm in 50 mls @ 100 mls/hr 10/06/23 01:00 10/06/23 02:07 Rocephin 1 Gm/Ns 50 Ml IVPB Infused DAILY@2100 [facility] Infus
== END 2023-10-06 13:29 | disposition home or self-care (01) ==
LOC: ANHED 18:46 → ANHIMU 10-05 00:05
PROVIDERS: Admitting Provider Internal Medicine; Emergency Provider Student in an Organized Health Care Education/Training Program; PCP Family Medicine; Visit Provider Hospitalist
DX: I48.0 Paroxysmal atrial fibrillation (principal); R07.9 Chest pain, unspecified; R79.89 Other specified abnormal findings of blood chemistry; E78.5 Hyperlipidemia, unspecified; E03.9 Hypothyroidism, unspecified; M81.0 Age-related osteoporosis without current pathological fracture; E55.9 Vitamin D deficiency, unspecified; K21.9 Gastro-esophageal reflux disease without esophagitis; E53.9 Vitamin B deficiency, unspecified; Z66 Do not resuscitate; Z79.899 Other long term (current) drug therapy
CPT/HCPCS: 36415; 71046; 71275; 80048; 80053; 81001; 83690; 84484; 85025; 85027; 85610; 85730; 87077; 87086; 87088; 87186; 93005; 93306; 96361; 96365; 96374; 96375; 96376; 99285; A9270; G0378; J0696; J2270; J7120; Q9967

== ENCOUNTER 2024-03-08 09:25 | Emergency (ER) | payer MEDICARE, SELFPAY ==
[2024-03-08 10:13] VITALS: BP 159/71; PULSE 68; RESP 14; TEMP 36.3; O2SAT 97
[2024-03-08 12:05] VITALS: BP 173/79; PULSE 68; RESP 17; O2SAT 96
--- NOTE | 2024-03-08 12:28 | ED_ITS ---
HPI - General Adult General Chief complaint: Urogenital-Female Stated complaint: hematuria,wheezing Time Seen by Provider: 03/08/24 11:57 History of Present Illness HPI narrative: 83-year-old female present to the emergency department complaining of urinary tract infection patient reports he has had 30 urinary tract infections over the course of the last 2 years. Patient does follow-up with urogynecology at [place]. Patient began having some urinary symptoms approximatel 2 weeks ago and completed a round of Macrobid approximately 1 week ago. Patient then had follow-up with primary care physician about for 5 days ago and was told that her urine was negative for infection but that she needed have follow-up with Dr. Mayes. Patient reports he has follow-up with her urogynecologist on March 13. Patient reports she has had increased pain into her back and increased urinary symptoms over the last 2 days and patient felt that she needed to be evaluated. Patient also reports he has had C diff twice Related Data Home Medications ?Medication ?Instructions ?Recorded ?Confirmed ?Last Taken ?Type mecobalamin (vitamin B12) 1,000 1,000 mcg PO DAILY 08/28/23 02/13/24 Unknown History mcg chewable tablet rivaroxaban 15 mg tablet (Xarelto) 15 mg PO QPM 02/13/24 02/13/24 Unknown History Allergies Allergy/AdvReac Type Severity Reaction Status Date / Time prednisone Allergy Unknown Unknown Verified 02/13/24 14:13 clavulanic acid (From Allergy Rash Verified 02/13/24 14:13 Augmentin) Review of Systems 2 Review of Systems: All systems reviewed & are unremarkable except as noted in HPI and below [facility] Past Medical History Medical History (Updated 03/08/24 @ 14:02 by Guillaume Patton MD) Claustrophobia Alopecia Macular degeneration Foreign body in ear Vitamin D deficiency, unspecified Vitamin B deficiency Hyperlipidemia High risk medication use Lumbar spondylosis Confusion Diverticulitis Colitis Recurrent UTI (urinary tract infection) Hypothyroidism BMI 28.0-28.9,adult Interstitial cystitis (chronic) with hematuria Atrial fibrillation with rapid ventricular response Hematuria COVID-30 March 2021 Persistent cough Impacted cerumen of both ears Osteoporosis Cataract, right eye Screen for colon cancer BMI 29.0-29.9,adult UTI (urinary tract infection) Hyperlipidemia Screening for thyroid disorder Vitamin D deficiency BMI 30.0-30.9,adult Screening for breast cancer ETD (eustachian tube dysfunction) Perforation of right tympanic membrane GERD (gastroesophageal reflux disease) Otitis media Osteoarthritis of right knee Surgical History Surgical History History of bladder surgery Family History Family History Father Acute myocardial infarction Heart disease Mother Alcohol abuse Tobacco abuse Cancer Sibling Skin cancer Sibling Breast cancer Grandparent Heart disease Grandparent Heart disease Social History Social History Social History: patient is a she has two kids. Her daughter Nisa is her surrogate. She wishes to be DNR. 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 HEAD: normocephalic, atraumatic. EYES: PERRLA/EOMI, conjunctivae clear. NOSE: Normal no drainage EARS:TMS clear with good light reflex. THROAT: Pharynx clear, no exudate. NECK: Supple. No adenopathy, no masses. RESPIRATORY: Airway patent, respirations nonlabored. Clear to auscultation bilaterally, no rales, rhonchi, wheezing. CARDIOVASCULAR: Regular rate and rhythm without murmurs rubs or gallops. ABDOMINAL: Soft, nontender, nondistended, normal bowel sounds MUSCULOSKELETAL: Moves all extremities. Strength/ROM intact, No edema, No calf tenderness. NEURO: Alert. Cranial nerves II through XII intact. Good gait. Good coordination SKIN: Warm, dry. Normal Color Course Vital Signs Vital signs: Vital Signs Temperature 97.4 F L 03/08/24 10:13 Pulse Rate 68 03/08/24 10:13 Respiratory Rate 14 03/08/24 10:13 Blood Pressure 159/71 H 03/08/24 10:13 Pulse Oximetry 97 03/08/24 10:13 Temperature 97.6 F 03/08/24 13:47 Pulse Rate 63 03/08/24 13:47 Respiratory Rate 16 03/08/24 13:47 Blood Pressure 180/90 H 03/08/24 13:47 Pulse Oximetry 97 03/08/24 13:47 Medical Decision Making MDM Narrative Medical decision making narrative: 83-year-old female presents emergency department for evaluation for urinary symptoms. Patient is afebrile with no leukocytosis and a hemoglobin of 13. Patient has no significant acute abnormalities on her CMP UA was concerning for UTI with positive nitrite leukocyte esterase positive with greater than 100 reds and greater on white blood cells with +4 bacteria. Urine culture was ordered. Patient was restarted on Macrobid. Patient does have follow-up scheduled with your OB Gyne Onc. All questions concerns were addressed patient was well- appearing at time of discharge. Differential Diagnosis Differential Diagnosis: Colitis, diverticulitis, urinary tract infection, kidney stone. Vital Signs Vital Signs: Vital Signs Temperature 97.4 F L 03/08/24 10:13 Pulse Rate 68 03/08/24 10:13 Respiratory Rate 14 03/08/24 10:13 Blood Pressure 159/71 H 03/08/24 10:13 Pulse Oximetry 97 03/08/24 10:13 Temperature 97.6 F 03/08/24 13:47 Pulse Rate 63 03/08/24 13:47 Respiratory Rate 16 03/08/24 13:47 Blood Pressure 180/90 H 03/08/24 13:47 Pulse Oximetry 97 03/08/24 13:47 Lab Data Lab results reviewed: Yes I reviewed the patient's lab results. 03/08/24 13:10 03/08/24 13:10 Labs: Lab Results 03/08/24 Range/Units 13:10 WBC 6.5 (4.5-10.0) K/mm3 RBC 4.33 (4.2-5.4) M/mm3 Hgb 13.0 (12.0-15.0) g/dL Hct 40.7 (37.0-47.0) % MCV 94.0 (80-100) fl MCH 30.0 (26-34) pg MCHC 31.9 L (32-36) g/dl RDW 14.2 (11.5-14.5) % Plt Count 174 (150-375) k/mm3 MPV 11.1 H (7.4-10.4) fl Immature Gran % (Auto) 0.2 (0-0.5) % Neut % (Auto) 57.1 (45.5-73.1) % Lymph % (Auto) 29.6 (18.3-44.2) % [place] % (Auto) 11.1 H (2.6-8.5) % Eos % (Auto) 1.5 (0-4.4) % Baso % (Auto) 0.5 (0.2-1.2) % Lymph # (Auto) 1.91 (0.9-3.2) K/mm3 [place] # (Auto) 0.7 H (0.1-0.6) K/mm3 Eos # (Auto) 0.1 (0-0.3) K/mm3 Baso # (Auto) 0.0 (0.0-0.1) K/mm3 Abs Immat Gran (auto) 0.01 (0.00-0.031) K/mm3 Absolute Neuts (auto) 3.7 (1.3-6.7) K/mm3 Absolute Nucleated RBC 0.000 (0.0-0.012) K/mm3 Nucleated RBC % 0.0 (0.0-0.2) % Sodium 138 (137-145) mmol/L Potassium 3.9 (3.4-5.0) mmol/L Chloride 109 H (98-107) mmol/L Carbon Dioxide 29 (22-30) mmol/L Anion Gap 0 L (4-12) mmol/L BUN 32 H (7-17) mg/dL Creatinine 0.80 (0.7-1.0) mg/dL Estim Creat Clear Calc 43 ml/min Estimated GFR > 60 (59 - ) Glucose 86 (65-110) mg/dL Calcium 9.2 (8.4-10.2) mg/dL Total Bilirubin 0.6 (0.2-1.3) mg/dL AST 32 (14-36) U/L ALT 19 (6-35) U/L Alkaline Phosphatase 98 (38-126) U/L Total Protein 7.0 (6.3-8.2) g/dL Albumin 3.9 (3.5-5.1) g/dL Urine Color Yellow (Yellow) Urine Appearance Cloudy H (Clear) Urine pH 7.5 (5.0-9.0) Ur Specific [place] 1.012 (1.001-1.035) Urine Protein 1+ H (Negative) mg/dL Urine Glucose (UA) Negative (Negative) mg/dL Urine Ketones Negative (Negative) mg/dL Ur Blood (Man) 3+ H (Negative) Urine Nitrate Positive H (Negative) Urine Bilirubin Negative (Negative) Urine Urobilinogen 0.2 (<2.0) mg/dL Leukocyte Esterase Rfl 3+ H (Negative) CLARA/UL Urine RBC >100 H (0-2) /hpf Urine WBC >100 H (0-3) /hpf Ur Squamous Epith Cells None seen (Few) /hpf Urine Bacteria 4+ H /hpf Urine Casts 0-2 Influenza A (RT-PCR) Negative (Negative) Influenza B (RT-PCR) Negative (Negative) RSV (RT-PCR) Negative (Negative) SARS-CoV-2 RNA (RT-PCR) Negative (Negative) Discharge Plan Discharge Clinical Impression: Recurrent UTI Patient Disposition: Home, Self-Care Condition: Stable Instructions: Antibiotic Form, Urinary Tract Infection in Women (ED) Additional Instructions: Drink plenty of water, antibiotic as directed until completed. Continue to have close follow-up with your your management trainee program stores. If you have any worsening symptoms then please call or return to the emergency department. Patient Language: Turkish Prescriptions: New nitrofurantoin monohyd/m-cryst [Macrobid] 100 mg capsule 100 mg PO Q12H 5 Days Qty: 10 0RF Rx Instructions: must administer with a meal/food No Action mecobalamin (vitamin B12) 1,000 mcg tablet,chewable 1,000 mcg PO DAILY Xarelto 15 mg tablet 15 mg PO QPM Rx Instructions: must administer with evening meal nitrofurantoin macrocrystal 100 mg capsule 100 mg PO Q12H Qty: 14 0RF Rx Instructions: must administer with a meal/food sotalol 80 mg Tablet 80 mg PO Q12HR Qty: 60 0RF metoprolol succinate [Toprol XL] 25 mg Tablet Extended Release 24 Hr 25 mg PO QAM Qty: 60 0RF levothyroxine 25 mcg tablet 25 mcg PO DAILY@0630 30 Days Qty: 30 5RF alprazolam [Xanax] 0.5 mg tablet 0.5 mg PO DIRECTED Qty: 2 0RF Rx Instructions: Take 1 tablet 30 minutes prior to MRI or other testing. Follow-up/Referrals: Phan Garvin MD [Primary Care Provider] -
[2024-03-08 12:46] VITALS: BP 162/78; PULSE 69; RESP 16; TEMP 36.6; O2SAT 94
[2024-03-08 13:13] VITALS: BP 163/76; PULSE 64; RESP 16; O2SAT 96
[2024-03-08 13:17] VITALS: BP 182/89; PULSE 65; RESP 12; TEMP 36.6; O2SAT 94
[2024-03-08 13:27] LABS: Basophils Percent Auto 0.5 % (0.2-1.2); Eosinophils Absolute Auto 0.1 K/mm3 (0-0.3); Eosinophils Percent Auto 1.5 % (0-4.4); Hematocrit 40.7 % (37.0-47.0); Immature Granulocyte Absolute 0.01 K/mm3 (0.00-0.031); Immature Granulocyte Percent A 0.2 % (0-0.5); Lymphocytes Absolute Auto 1.91 K/mm3 (0.9-3.2); Lymphocytes Percent Auto 29.6 % (18.3-44.2); Mean Corpuscular HGB Conc 31.9 g/dl (32-36); Mean Platelet Volume 11.1 fl (7.4-10.4); Monocytes Absolute Auto 0.7 K/mm3 (0.1-0.6); Monocytes Percent Auto 11.1 % (2.6-8.5); Neutrophils Absolute Auto 3.7 K/mm3 (1.3-6.7); Neutrophils Percent Auto 57.1 % (45.5-73.1); Platelet Count Result 174 k/mm3 (150-375); Red Blood Count 4.33 M/mm3 (4.2-5.4); Red Cell Distribution Width 14.2 % (11.5-14.5); White Blood Count 6.5 K/mm3 (4.5-10.0)
[2024-03-08 13:31] LABS: Add Urine Microscopic? YES; Appearance Urine Cloudy (Clear); Bacteria Urine 4+ /hpf; Bilirubin Urine Negative (Negative); Blood Urine 3+ (Negative); Color Urine Yellow (Yellow); Glucose Urine UA Negative (Negative); Ketones Urine Negative (Negative); Leukocyte Esterase Ur 3+ LEU/UL (Negative); Nitrate Urine Positive (Negative); Non Pathogenic Casts 0-2; Protein Urine 1+ mg/dL (Negative); RBC Urine >100 /hpf (0-2); Specific Grav Ur 1.012 (1.001-1.035); Squamous Epithelial Cell Urine None Seen /hpf (Few); Urobilinogen Urine 0.2 mg/dL (<2.0); WBC Urine >100 /hpf (0-3); pH Urine 7.5 (5.0-9.0)
[2024-03-08 13:36] LABS: Alanine Aminotransferase 19 U/L (6-35); Albumin Level 3.9 g/dL (3.5-5.1); Alkaline Phosphatase 98 U/L (38-126); Anion Gap 0 mmol/L (4-12); Aspartate Amino Transferase 32 U/L (14-36); Bilirubin,Total 0.6 mg/dL (0.2-1.3); Blood Urea Nitrogen 32 mg/dL (7-17); Calcium 9.2 mg/dL (8.4-10.2); Carbon Dioxide 29 mmol/L (22-30); Chloride 109 mmol/L (98-107); Estimated CRCL calculation 43 ml/min; Estimated Glomerular Filt Rate > 60; Glucose 86 mg/dL (65-110); Potassium 3.9 mmol/L (3.4-5.0); Sodium 138 mmol/L (137-145)
[2024-03-08 13:47] VITALS: BP 180/90; PULSE 63; RESP 16; TEMP 36.4; O2SAT 97
[2024-03-08 14:05] LABS: Influenza A QL RT-PCR Negative (Negative); Influenza B QL RT-PCR Negative (Negative); RSV RNA, RT-PCR Negative (Negative); SARS-CoV-2 RNA PCR Negative (Negative)
[2024-03-08] MEDS: NITROFURANTOIN MONOHYD MACROCR 100 MG CAP PO (14:06)
--- OUTSIDE RECORDS SUMMARY | 2024-03-15 10:19 | XMS_ITS | Encounter Summary ---
Author Organization [facility] Address [address] [place] [address] Care Team Providers Care Self Pay Collector Name Role Phone Angelica Frankel MD Primary Care Provider [phone] Reason for Visit * Reason Onset Date Comments Other 09/12/2011 Reschedule colon oscopy Encounter Details Date Type Department Care Team (Late st Contact Info) Description 09/12/2011 Telephone [facility] [place] [id number] [address] [place] [address] Cristopher Quezada MD NO ADDRESS ON FILE Other (Reschedule colonoscopy) Social History Tobacco Use Types Packs/Day Years Used Date Smoking Tobacco: Never Assessed Sex and Gender Information Value Date Recorded Sex Assigned at Not on file Gender Identity Not on file Sexual Orientation Not on file documented as of this encounter Miscellaneous Notes * Telephone Encounter - Clarice Marquez - 09/12/2011 11:45 AM CDT PROCEDURE RESCHEDULED NEW DATE: 10/09/2011 NEW TIME: 11:30 am NEW LOCATIONS: [facility] NEW DOCTOR: [facility] Colonoscopy has rescheduled from 09-25-2011 at 11:[address] Cristopher Quezada at [facility] due to family emergency. documented in this encounter Plan of Treatment Not on file documented as of this encounter Visit Diagnoses Not on filedocumented in this encounter Care Teams Self Pay Collector Relationship Specialty Start Date End Date Angelica Frankel MD [address] [place] [address] [address] [address] PCP - General Internal Medicine 08/11/11 documented as of this encounter
--- OUTSIDE RECORDS SUMMARY | 2024-03-15 10:19 | XMS_ITS | Encounter Summary ---
Author Organization [facility] Address [address] [place] [address] Care Team Providers Care Summer Babysitter Name Role Phone Angelica Gonzalez MD Primary Care Provider [phone] Reason for Visit * Auth/Cert (Routine) - Closed Specialty Diagnoses / Procedures Referred By Contac t Referred To Contact Gastroenterology Diagnoses COLON/SCREENING/FM HX COLON CA Procedures COLONOSCOPY [address] [place] [address] Referral ID Status Reason Start Date Expiration Date Visits Re quested Visits Authorized [id number] Closed 1 1 Encounter Details Date Type Department Care Team (Late st Contact Info) Description 10/09/2011 11:30 AM CDT - 10/09/2011 12:00 PM CDT Surgery [address] [place] [address] Cristopher Quezada MD NO ADDRESS ON FILE COLONOSCOPY Surgery Details Date/Time Status Location OR Service Patient Class Case Class Case Type Trauma Case? 10/09/2011 11:30 AM Posted [facility] GI 01 Gastroenterology Outpatient Elective No Panel 1 Procedure LRB Anes Op Region Wound Class Comments COLONOSCOPY N/A General Anus Clean Contaminated -II DR. ANGELICA GONZALEZ Surgeon Surgeon Role Service Panel Cristopher Quezada MD Primary Gastroenterology 1 Case Notes [facility] documented in this encounter Social History Tobacco Use Types Packs/Day Years Used Date Smoking Tobacco: Never Alcohol Use Standard Drinks/Week Comments Yes 0 (1 standard drink = 0.6 oz pur e alcohol) rare Sex and Gender Information Value Date Recorded Sex Assigned at Not on file Gender Identity Not on file Sexual Orientation Not on file documented as of this encounter Last Filed Vital Signs Vital Sign Reading Time Taken Comments Blood Pressure 142/74 10/09/2011 11:27 AM CDT Pulse 71 10/09/2011 11:27 AM CDT Temperature 36.9 ??C (98.4 ??F) 10/09/2011 11:27 AM C DT Respiratory Rate 24 10/09/2011 11:27 AM CDT Oxygen Saturation 97% 10/09/2011 11:27 AM CDT Inhaled Oxygen Concentration - - Weight 79.8 kg (176 lb) 10/09/2011 11:27 AM CDT Height 162.6 cm (5' 4 ) 10/09/2011 11:27 AM CDT Body Mass Index 30.21 10/09/2011 11:27 AM CDT documented in this encounter Discharge Instructions * Discharge Instructions* Carol Robertson RN - 10/09/2011 12:39 PM CDT Discharge Instructions after Colonoscopy After a colonoscopy it is normal to experience some minor gas pains because of the air that was introduced to your colon during the procedure. Tylenol will help to relieve any discomfort. You may not have a bowel movement for 1-3 days because of the colonoscopy prep. This is normal. DO NOT drink alcohol until tomorrow. DO NOT drive, operate machinery, make critical decisions until tomorrow. Limit activities that require coordination or balance for 24 hours. Resume your previous diet unless otherwise instructed. Resume your pervious medications unless otherwise instructed. Notify your physician if you devleop any of the following: ?? Severe pain ?? Fever of 101 degrees F ?? Large amount of bleeding, passing large blood clots, or black tarry stools ?? Redness or soreness at the IV site Office [phone] [facility] [phone] [facility] [phone] See report for additional recommendations. * Attachments The following attachments cannot be sent through Care Everywhere. * HEMORRHOIDS: AFTER YOUR VISIT (SOMALI) * DIVERTICULOSIS: AFTER YOUR VISIT (SOMALI) * HIGH-FIBER DIET: AFTER YOUR VISIT (SOMALI) documented in this encounter Medications at Time of Discharge Medication Sig Dispensed Refills Start Date End Date multivitamin (DAILY-LYNSEY) Oral tablet Take 1 Tab by mouth daily. calcium carbonate (OS-SULEMAN) 500 mg calcium (1,250 mg) Oral tablet Take 1 Tab by mouth daily. fish oil-omega-3 fatty acids 340-1,000 mg Oral Cap Take 1 Cap by mouth daily. thiamine (VITAMIN B-1) 100 mg Oral tablet Take 1 Tab by mouth daily. SIMVASTATIN ORAL Take 10 mg by mouth late in the day . documented as of this encounter H&P Notes * Cristopher Quezada MD - 10/09/2011 12:15 PM CDT PRE PROCEDURE EVALUATION - Colonoscopy DATE: 10/09/2011 I: This is a 70 y.o. female patient scheduled for colonoscopy--high risk. Mother had colon cancer. There are no active problems to display for this patient. Past Medical History Diagnosis Date ??? Hyperlipidemia Past Surgical History Procedure Date ??? Hx bladder suspension ??? Hx spinal surgery Prescriptions prior to admission Medication Sig Dispense Refill ??? multivitamin (DAILY-LYNSEY) Oral tablet Take 1 Tab by mouth daily. ??? calcium carbonate (OS-SULEMAN) 500 mg calcium (1,250 mg) Oral tablet Take 1 Tab by mouth daily. ??? fish oil-omega-3 fatty acids 340-1,000 mg Oral Cap Take 1 Cap by mouth daily. ??? thiamine (VITAMIN B-1) 100 mg Oral tablet Take 1 Tab by mouth daily. ??? SIMVASTATIN ORAL Take 10 mg by mouth daily. No Known Allergies History Substance Use Topics ??? Smoking status: Never Smoker ??? Smokeless tobacco: Not on file ??? Alcohol Use: Yes rare Family History Problem Relation Age of Onset ??? Colon Cancer Mother Head: atraumatic, Normocephalic, without obvious abnormality Lungs: clear to auscultation bilaterally, normal respiratory effort Airway: No apparent abnormality Heart: normal rate, regular rhythm, normal S1, S2, no murmurs, rubs, clicks or gallops Abdomen: Soft, non-tender. Bowel sounds normal. No masses, no organomegaly. Neurologic: Mental status: Alert, oriented, thought content appropriate ASA Classification: ASA 2 - Patient with mild systemic disease with no functional limitations Informed Consent: The patient was informed of the indications for the procedure, the risks/benefits and the alternatives, and agreed to proceed. In particular, the patient was informed of the risk of perforation/(1:1000), medication side effect, infection, a missed lesion, or incomplete examination. In the case of dilatation, the patient was informed of the risk of perforation (1 to 5%). There was nothing onhistory or physical examination precluding the procedure. IMPRESSION & PLAN: Indications for procedure as noted in HPI. Will proceed with the above mentioned procedure(s) as scheduled. Cristopher Quezada MD documented in this encounter Procedure Notes * Stl Scanning, [facility] - 10/09/2011 12:37 PM CDTAssociated Order(s): GI REPORT * Cristopher Quezada MD - 10/09/2011 12:36 PM CDTAssociated Order(s): GI REPORT [facility] Endoscopy Patient Name: Maria A Peralta Procedure Date No Time: 10/09/2011 Date of : 1940 Admit Type: Outpatient Age: 70 Gender: Female Attending MD: Cristopher Quezada MD Procedure: Colonoscopy Indications: Colorectal cancer screen--high risk. Mother had colon cancer age 70. Interval since prior exam in 2006. 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 Providers: Cristopher Quezada MD Referring MD: Angelica Gonzalez MD, Javier Valdez MD Medicines: TIVA Procedure: Informed consent was obtained for the procedure, including moderate sedation after risks were discussed. Based on the pre-procedure assessment, including review of the patient?s medical history, medications, allergies, and review of systems, the patient was deemed to be an appropriate candidate for sedation. A timeout was performed. Continuous ECG monitoring, pulse oximetry, blood pressure monitoring, and direct observation were performed. The Colonoscope was introduced through the anus and advanced to the cecum, identified by appendiceal orifice & ileocecal valve. The colonoscopy was performed without difficulty. The patient tolerated the procedure well. The quality of the bowel preparation was excellent. Estimated Blood Loss: Estimated blood loss: none. Findings: Internal hemorrhoids were seen on retroflexion. There was moderate sigmoid diverticulosis without associated inflammatory change or lumenal narrowing. Remainder appeared normal to the cecum. There was no evidence for colon polyp, colon cancer or inflammatory bowel disease. Cecum and ileocecal valve were well visualized and appeared normal. Complications: No immediate complications. Impression: 1. Internal hemorrhoids 2. Moderate sigmoid diverticulosis without associated inflammatory change or lumenal narrowing. 3. Otherwise normal colonoscopy. No polyp, colon cancer or inflammatory bowel disease. Recommendation: Reassurance. High fiber diet. Repeat colonoscopy in 5 years for colon cancer screening due to high risk family history. Complete workup as directed by Dr. Valdez and if symptom remains enigmatic, see me in office for complete cognitive GI evaluation. Follow up with Dr. Gonzalez for medical issues. Cristopher Quezada MD 10/09/2011 12:36 PM This report has been signed electronically. Number of Addenda: 0 Procedure Date: 10/09/2011 12:08:[address] [place] [address] documented in this encounter OR Notes * OR Anesthesia - Stnirali Baez [facility] - 10/09/2011 9:16 PM CDT * OR Anesthesia - Hari Mcduffie MD - 10/09/2011 12:47 PM CDT Phase II Postanesthesia Evaluation Including [facility] Modified Rosibel Score Patient seen and evaluated: RESPIRATORY FUNCTION: Respiration: able to breath and cough freely (10/09/11 1120) [2=able to breathe and cough freely, 1=dyspnea, limited breathing or tachypnea, 0=apnea or mechanicventilator] O2 Saturation: able to maintain O2 saturation greater than 92% on room air (10/09/11 1120) [2=able to maintain O2 saturation greater than 92% on room air, 1=needs O2 inhalation to maintain O2 saturation greater than 90%, 0=O2 saturation less than 90% even with O2 supplement] Resp: 16 (10/09/11 1236)SpO2: 99 % (10/09/11 1236) CARDIOVASCULAR FUNCTION: BP: 118/53 mmHg (10/09/11 1236) Circulation: BP within 20% of preanesthetic level (10/09/11 1120) [2=BP within 20% of preanesthetic level, 1=BP within 20-49% of preanesthetic level, 0=BP within 50%of preanesthetic level] MENTAL STATUS, NEURO, ACTIVITY: Consciousness: fully awake (10/09/11 112) [2=fully awake, 1=arousable on calling, 0=not responding] Activity: able to move 4 extremities voluntarily or on command (10/09/11 112) [2=able to move 4 extremities voluntarily or on command, 1=able to move 2 extremities voluntarily or on command, 0=unable to move extremities voluntarily or on command] Ambulation: able to stand up and walk straight, on ordered bedrest, or performing at patient's prior level of function (10/09/11 112) [2=able to stand up and walk straight, on ordered bedrest, or performing at patient's prior level of function, 1=vertigo when erect, 0=dizziness when supine] TEMPERATURE: Temp: 98.2 ??F (36.8 ??C) (10/09/11 1236) PAIN: Presence of Pain: denies pain/discomfort (10/09/11 1127) Pain: pain free (10/09/111119) [2=pain free, 1=pain handled by oral medication, 0=pain requiring parenteral medication] NAUSEA AND VOMITING: Fasting/Feeding: able to drink fluids, ice chips or NPO (10/09/11 112) [2=able to drink fluids, ice chips or NPO, 1=nauseated, 0=nausea and vomiting] POSTOPERATIVE HYDRATION: Intake/Output Summary (Last 24 hours) at 10/09/11 1247 Last data filed at 10/09/11 1230 Gross per 24 hour Intake 300 ml Output 0 ml Net 300 ml Urine Output: has voided, adequate urine output per device, or not applicable (10/09/11 112) [2=has voided, adequate urine output per device, or not applicable, 1=unable to void but comfortable, 0=unable to void and uncomfortable] WOUND: Dressing: dry and clean or not applicable (10/09/11 1120) [2=dry and clean or not aplicable, 1=wet, marked and not increasing, 0=growing area of wetness] [facility] Modified Rosibel Score: Score: 20 (10/09/11 1120) COMMENTS: No apparent Anesthesia related complications Hari Mcduffie MD 10/09/2011 12:47 PM * OR Anesthesia - Hari Mcduffie MD - 10/09/2011 11:37 AM CDT GI Lab Pre-Anesthesia Evaluation - Long Form 10/09/2011 11:37 AM Name: Maria A Peralta Age: 70 y.o. Sex: female CSN: [id number] Procedure: Procedure(s): COLONOSCOPY Surgeons/Assistants: Surgeon(s) and Role: * Cristopher Quezada MD - Primary No Known Allergies Prescriptions prior to admission Medication Sig Dispense Refill ??? multivitamin (DAILY-LYNSEY) Oral tablet Take 1 Tab by mouth daily. ??? calcium carbonate (OS-SULEMAN) 500 mg calcium (1,250 mg) Oral tablet Take 1 Tab by mouth daily. ??? fish oil-omega-3 fatty acids 340-1,000 mg Oral Cap Take 1 Cap by mouth daily. ??? thiamine (VITAMIN B-1) 100 mg Oral tablet Take 1 Tab by mouth daily. ??? SIMVASTATIN ORAL Take 10 mg by mouth daily. Current Facility-Administered Medications Medication Dose Route Frequency Provider Last Rate Last Dose ??? lactated ringers solution IV Pre-Proc Continuous Cristopher Quezada MD There are no active problems to display for this patient. Past Medical History Diagnosis Date ??? Hyperlipidemia No past surgical history on file. History Substance Use Topics ??? Smoking status: Not on file ??? Smokeless tobacco: Not on file ??? Alcohol Use: No family history on file. Previous Anesthesia Problems/Concerns: No anesthesia problems/complications Review of Systems Cardiovascular: negative Respiratory: negative Gastroenterology: abdominal pain Bowel Prep:Yes PHYSICAL EXAM BP 142/74 Pulse 71 Temp(Src) 98.4 ??F (36.9 ??C) (Tympanic) Resp 24 Ht 5' 4 (1.626 m) Wt176 lb (79.833 kg) BMI 30.21 kg/m2 SpO2 97% Weight: Weight: 176 lb (79.833 kg) (10/09/11 1127) Height: Ht Readings from Last 1 Encounters: 10/09/11 5' 4 (1.626 m) BMI: Body mass index is 30.21 kg/(m^2). Airway: normal range of motion: Airway Class: II ; None Lungs: clear to auscultation bilaterally, normal respiratory effort Heart: regular rate and rhythm, S1, S2 normal, no murmur, click, rub or gallop Neuro: alert, oriented x 3, no defects noted in general exam. Vascular Access: None LABS No results found for this basename: WBC, MANUALWBC, HGB, HGBPOC, HCT, HCTPOC, PLT, MCV No results found for this basename: NA, K, CL, CO2, CA, BUN, CREAT, GLUCOSE, ANIONGAP, BCRATIO No results found for this basename: INR, PT, PROTIMEPOC No results found for this basename: HCGURPOC, HCGQUALUR, HCGQUAL, HCGQUANT, HCGINTACT No results found for this basename: glucpoc EKG: EKG not indicated today Other Studies/Considerations: None Postprocedure pain management discussed yes Smoking/Tobacco Counseling: None Recommendations: None ASA Physical Status: ASA 2 - Patient with mild systemic disease with no functional limitations I have seen and examined this patient and confirm that all data is current and accurate. Yes Choice of Anesthesia/Anesthesia Plan: Proceed, General and Routine Monitoring I have discussed the anesthetic options and the risks/benefits with the patient/family. Questions have been solicited and answered. Yes Hari Mcduffie MD documented in this encounter Miscellaneous Notes * Scanned Form - Stl Scanning, [facility] - 10/20/2011 9:21 PM CDT Electronically signed by Angel [facility] Stl Milieu Manager Incoming at 10/20/2011 9:21 PM CDT * Scanned Form - Stl Scanning, [facility] - 10/09/2011 9:16 PM CDT Electronically signed by Interface, [facility] Stl Milieu Manager Incoming at 10/09/2011 9:16 PM CDT * Patient Instructions - Stl Scanning, [facility] - 10/09/2011 9:16 PM CDT Electronically signed by Interface, [facility] Stl Milieu Manager Incoming at 10/09/2011 9:16 PM CDT documented in this encounter Plan of Treatment Not on file documented as of this encounter Procedures Procedure Name Priority Date/Time Associated Diagnosis Comments COLONOSCOPY 10/09/2011 12:13 PM CDT COLON/SCREENING/FM HX COLON CA Case Notes [facility] documented in this encounter Visit Diagnoses Not on filedocumented in this encounter Administered Medications Inactive Administered Medications - up to 3 most recent administrations Medication Order MAR Action Action Date Dose Rate Site lactated ringers solution IV, at 125 mL/hr, PRE-PROCEDURE CONTINUOUS, Starting on Sun10/09/11 at 1130, Until Sun10/09/11 at 1518, Routine New Bag 10/09/2011 11:39 AM CDT 125 mL/hr documented in this encounter Active and Recently Administered Medications Times are shown in CDT. Continuous Medication Order 10/07/2011 10/08/2011 10/09/2011 lactated ringers solution (CANCELED) IV, at 125 mL/hr, PRE-PROCEDURE CONTINUOUS, Starting on Sun10/09/11 at 1130, Until Sun10/09/11 at 1518, Routine 1139 (New Bag - Prov ider: Maria A Harden RN)1259 (Stopped - Provider: Carol Robertson RN) documented in this encounter Care Teams Summer Babysitter Relationship Specialty Start Date End Date Angelica Gonzalez MD [address] [place] [address] Rd [address] [address] PCP - General Internal Medicine 08/11/11 documented as of this encounter
--- OUTSIDE RECORDS SUMMARY | 2024-03-15 10:19 | XMS_ITS | Clinical Summary ---
Author Organization [facility] Address [address] [place] [address] Phone Care Team Providers Care Senior Technical Architect Name Role Phone Angelica Frankel MD Primary Care Provider [phone] Allergies Active Allergy Reactions Criticality Noted Date Comments Prednisone Rash 11/29/2016 Medications Medication Sig Dispensed Refills Start Date End Date Status SIMVASTATIN ORAL Take 10 mg by mouth late in the day . Active multivitamin (DAILY-LYNSEY) Oral tablet Take 1 Tab by mouth daily. Active calcium carbonate (OS-SULEMAN) 500 mg calcium (1,250 mg) Oral tablet Take 1 Tab by mouth daily. Active fish oil-omega-3 fatty acids 340-1,000 mg Oral Cap Take 1 Cap by mouth daily. Active thiamine (VITAMIN B-1) 100 mg Oral tablet Take 1 Tab by mouth daily. Active Saccharomyces boulardii (FLORASTOR) 250 mg Capsule Take 500 mg by mouth. Active OMEGA-3S/DHA/EPA/FISH OIL/D3 (VITAMIN-D + OMEGA-3 ORAL) Take by mouth daily. Active aspirin (ECOTRIN EC) 81 mg Tablet, Delayed Release (E.C.) Take 81 mg by mouth daily. Active oxyCODONE-acetaminoph en (PERCOCET) 5-325 mg tablet Take 1 Tablet by mouth every 4 hours as needed for Mild pain. Max Daily Amount: 6 Tablets 43 Tablet 12/21/2016 Active Active Problems No known active problems Immunizations Name Administration Dates Next Due Influenza Seasonal Unspecified Formulation IM Family History Medical History Relation Name Comments Colon Cancer Mother Relation Name Status Comments Mother Social History Tobacco Use Types Packs/Day Years Used Date Smoking Tobacco: Never Smokeless Tobacco: Never Alcohol Use Standard Drinks/Week Comments Yes 0 (1 standard drink = 0.6 oz pur e alcohol) rarely Sex and Gender Information Value Date Recorded Sex Assigned at Not on file Gender Identity Not on file Sexual Orientation Not on file Last Filed Vital Signs Vital Sign Reading Time Taken Comments Blood Pressure 124/51 12/21/2016 7:35 AM CDT Pulse 55 12/21/2016 7:35 AM CDT Temperature 36.9 ??C (98.5 ??F) 12/21/2016 7:35 AM CD T Respiratory Rate 18 12/21/2016 7:35 AM CDT Oxygen Saturation 96% 12/21/2016 7:35 AM CDT Inhaled Oxygen Concentration - - Weight 78.4 kg (172 lb 12.8 oz) 12/20/2016 7:10 AM CDT Height 157.5 cm (5' 2 ) 12/20/2016 7:10 AM CDT Body Mass Index 31.61 12/20/2016 7:10 AM CDT Plan of Treatment Health Maintenance Due Date Last Done Comments DTAP/TDAP/TD VACCINES (1 - Tdap) 1957 ZOSTER VACCINE (1 of 2) 1988 OSTEOPOROSIS SCREENING 12/24/2003 PNEUMOCOCCAL VACCINE 65+ YEA RS (1 of 1 - PCV) 12/24/2003 RSV VACCINE (60+ or ) (1 - 1-dose 75+ series) 2013 COLORECTAL SCREENING 10/08/2016 10/09/2011, 10/09/19 12 INFLUENZA VACCINE (#1) 2023 11/15/2016 Medical Devices Implanted Type Area Validation Analyst Device Identifier Shelf Expiration Date Model / Serial / Lot Sling Desara System Suleman-Ds01 - [id number] Implanted:Qty: 1 on 12/20/2016 by Gaby Ceballos MD at [facility] Sling N/A: Vagina [employer] 08/16/2021 SULEMAN-DS01 / / [id number] Description:PO#[id number] Advance Directives For more information, please contact: [phone] * Full Code (Latest Code Status on File) Date Activated Date Inactivated Comments 12/20/2016 7:23 AM 12/20/2016 12:56 PM * Full Code Date Activated Date Inactivated Comments 10/09/2011 11:21 AM 10/09/2011 3:18 PM Care Teams Senior Technical Architect Relationship Specialty Start Date End Date Angelica Frankel MD [address] [place] [address] Rd [address] [address] PCP - General Internal Medicine 08/11/11
--- OUTSIDE RECORDS SUMMARY | 2024-03-15 10:19 | XMS_ITS | Encounter Summary ---
Author Organization [facility] Address [address] [place] [address] Care Team Providers Care Process Assistant Name Role Phone Angelica Frankel MD Primary Care Provider [phone] Reason for Visit * Auth/Cert Specialty Diagnoses / Procedures Referred By Dacia t Referred To Contact Procedures IL REPAIR VAGINA/PERINEUM IL REPR VAGINAL PROLAPSE,SACROSP LIG Gaby Ceballos MD [address] [address] Referral ID Status Reason Start Date Expiration Date Visits Re quested Visits Authorized [id number] 11/02/2016 1 1 Encounter Details Date Type Department Care Team (Late st Contact Info) Description 12/20/2016 6:55 AM CDT - 12/21/2016 10:42 AM CDT Hospital Encounter [facility] [address] [place] [id number] Gaby Ceballos MD [address] [address] Discharge Disposition: Home or Self Care Social History Tobacco Use Types Packs/Day Years [...] Mass Index 31.61 12/20/2016 7:10 AM CDT documented in this encounter Discharge Summaries * Martha Lyon MD - 12/21/2016 6:59 AM CDT UroGynecology Discharge Summary Patient Name Maria A Patel Age 75 y.o. Gender Female Date of 1940 [facility] [id number] Attending Physician Gaby Ceballos, * Discharging Physician Martha Lyon MD PCP Angelica Frankel MD Admit Date 12/20/2016 Discharge Date Length of Stay LOS: 0 days Procedures performed: Procedure(s) (LRB): SACROSPINOUS LIGAMENT FIXATION (N/A) ANTERIOR POSTERIOR REPAIR WITH ENTEROCELE & CYSTOCELE & RECTOCELE (N/A) COLPOPERINEORRHAPHY (N/A) FOREIGN BODY REMOVAL (N/A) Hospital Course: Maria A Patel is a 75 y.o. female who was admitted to [facility] on 12/20/2016 and underwent reconstructive surgery involving the above procedures. The patient had an unremarkable post-operative hospital course. She was tolerating regular diet without nausea/vomiting and ambulating without difficulty prior to discharge. On the day of discharge, the patient was instructed on the care and use of her plugged Staton catheter. The patient felt comfortable in using her catheter for interval voids. Follow-up & Outstanding Issues/Tests: The patient is to follow-up in 6 weeks in the office. Sheis to call the exchange/office for any concerns, no matter how unrelated to the reconstructive surgery. Call the exchange/office for temperature greater than 100.6 as well as for vaginal bleeding. Hospital Problems: Active Problems: * No active hospital problems. * Medications Augmentin 500 mg/125 mg twice daily for 7 days Colace 100 mg twice daily #60- 6 refills, Percocet 5/325 one-two tabs every 6 hrs as needed #43- no refills, Estrace vaginal cream three times weekly at bedtime- 6 refills Prior to Admission Medications Prescriptions Prior to Admission Medication Sig Dispense Refill Last Dose ??? Saccharomyces boulardii (FLORASTOR) 250 mg Capsule Take 500 mg by mouth. Past Week at Unknown time ??? OMEGA-3S/DHA/EPA/FISH OIL/D3 (VITAMIN-D + OMEGA-3 ORAL) Take by mouth daily. Past Week at Unknown time ??? aspirin (ECOTRIN EC) 81 mg Tablet, Delayed Release (E.C.) Take 81 mg by mouth daily. Past Week at Unknown time ??? multivitamin (DAILY-LYNSEY) Oral tablet Take 1 Tab by mouth daily. Past Week at Unknown time ??? calcium carbonate (OS-SULEMAN) 500 mg calcium (1,250 mg) Oral tablet Take 1 Tab by mouth daily. Past Week at Unknown time ??? fish oil-omega-3 fatty acids 340-1,000 mg Oral Cap Take 1 Cap by mouth daily. Past Week at Unknown time ??? thiamine (VITAMIN B-1) 100 mg Oral tablet Take 1 Tab by mouth daily. Past Week at Unknown time ??? SIMVASTATIN ORAL Take 10 mg by mouth late in the day . Past Week at Unknown time Discharged Condition: improving Disposition: Home Drains: plugged urethral staton catheter Patient Instructions: Minimize activity for first week: ambulate in house, minimal lifting/bending/squatting. Further instructions per patient postop handout provided by office. Diet is: general diet Wound Care: Keep wound clean and dry and Routine catheter care. Signed: Martha Lyon MD 12/21/2016, 7:00 AM This discharge took less than 30 minutes of time to prepare documented in this encounter Discharge Instructions * Discharge Instructions* Hilda Drew RN - 12/21/2016 7:46 AM CDT [facility] Gaby Ceballos M.D. Karla Lorenzo M.D. [address] [place] [address]. [address] [address] Exchange: [employer] POST OPERATIVE INSTRUCTIONS 1. During the first week, you may make limited, purposeful trips up/down stairs. 2. Rest frequently during the day, avoiding heavy exertion and housework. 3. You may go out the second week and short automobile trips are permissible. 4. You may drive in two weeks as long as you are not taking narcotic medications. 5. You may take showers as desired, but no baths until after your postoperative visit. 6. No intercourse until after your postoperative examination, usually at 6 weeks. 7. Drink a normal amount of fluids. The bladder will not empty faster by drinking more. 8. Please limit lifting during healing to 10 pounds. 9. Avoid constipation, take the prescribed softener and use milk of magnesia if needed. 10. Please call for heavy bleeding (some vaginal bleeding is normal) or fever greater than 101. 11. You should have a postoperative appointment already scheduled for 6 weeks. 12. Please allow 24 hours for call backs when trying to schedule appointments and 24 hours for script refills. Please review the FAQ instruction packet. 13. You will be discharged home with a urethral catheter that you will remove at home 7 days after discharge on . If you cannot remove the vaginal packing do not remove the catheter. Call theoffice. Voiding around the catheter is a sign that your bladder is starting to work. 14. You will be discharged home with a vaginal pack that provides internal suport during the intitial healing to be removed at home 7 days after discharge on . If you are unable or uncomfortable removing the pack, please the call the office for removal. 15. I will be writing a prescription for: ?? Pain medication to be used as needed. ?? Vaginal Estrogen cream, (3x/week) after removing pack-Half fill the insertion tube with cream and insert tube in the vagina. It helps the vagina heal from surgery. You may skip using the cream if you prefer to not use it or if it is too costly. ?? Antibiotic to prevent infection~Start this evening. ?? Stool softener to prevent constipation~Start this evening. documented in this encounter Medications at Time of Discharge Medication Sig Dispensed Refills Start Date End Date oxyCODONE-acetaminophen (PERCOCET) 5-325 mg tablet Take 1 Tablet by mouth every 4 hours as needed for Mild pain. Max Daily Amount: 6 Tablets 43 Tablet 12/21/2016 Saccharomyces boulardii (FLORASTOR) 250 mg Capsule Take 500 mg by mouth. OMEGA-3S/DHA/EPA/FISH OIL/D3 (VITAMIN-D + OMEGA-3 ORAL) Take by mouth daily. aspirin (ECOTRIN EC) 81 mg Tablet, Delayed Release (E.C.) Take 81 mg by mouth daily. multivitamin (DAILY-LYNSEY) Oral tablet Take 1 Tab [...] day . documented as of this encounter Progress Notes * Martha Lyon MD - 12/21/2016 6:58 AM CDT UroGyn Progress Note Subjective: Patient doing well. Pain is well controlled with PO meds. Tolerating regular diet and nausea is improved with scopolamine patch. Denies chest pain or shortness of breath. Objective: Vitals: 12/20/16 1735 12/20/16 2102 12/20/16 2349 12/21/16 0515 BP: 133/64 122/58 109/49 117/54 BP Location: Right arm Right arm Right arm Right arm Patient Position (BP): Sitting Pulse: 74 75 66 60 Resp: 16 18 14 18 Temp: 98 ??F (36.7 ??C) 98 ??F (36.7 ??C) 98.1 ??F (36.7 ??C) 98 ??F (36.7 ??C) TempSrc: Oral Oral Oral Oral SpO2: 98% 98% 92% 93% Weight: Height: General: lying in bed in NAD Heart: RRR Lungs: CTAB Abdomen: Soft, NT/ND, Extremities: No edema or calf tenderness/swelling. SCDs in place. : Staton catheter in place Urine Output: 1150cc in 8hrs Assessment/Plan: 75 y.o. female POD#1 s/p SSLF and repairs 1. Afebrile, hemodynamically stable, doing well 2. UOP adequate. Urethral staton is plugged, pt is attempting void this AM. 3. Pain: well controlled with PO meds 4. DVT prophylaxis: SCDs in place, ambulate in the AM 5. Continue routine post-op care Martha Lyon MD * Martha Peterson RN - 12/21/2016 6:11 AM CDT Pt tolerated pain with PO pain meds. Had many complaints of nausea but is now under control with scope patch and iv Zofran. Staton is plugged.VSS and sleeping between care. * Martha Lyon MD - 12/20/2016 7:54 PM CDT UroGyn Night of Surgery Subjective: Patient doing well. Pain is well controlled with PO meds. Tolerating regular diet but still having nausea. Denies chest pain or shortness of breath. Objective: Vitals: 12/20/16 1229 12/20/16 1308 12/20/16 1545 12/20/16 1735 BP: 119/57 123/59 133/64 BP Location: Right arm Right arm Right arm Patient Position (BP): Supine Sitting Sitting Pulse: 60 66 74 Resp: 18 18 16 Temp: 98 ??F (36.7 ??C) 98.3 ??F (36.8 ??C) 97.7 ??F (36.5 ??C) 98 ??F (36.7 ??C) TempSrc: Skin Oral Oral Oral SpO2: 97% 99% 98% Weight: Height: General: lying in bed in NAD Heart: RRR Lungs: CTAB Abdomen: Soft, NT/ND, Extremities: No edema or calf tenderness/swelling. SCDs in place. : Staton catheter in place Urine Output: 150cc in 6hrs Assessment/Plan: 75 y.o. female POD#0 s/p SSLF and repairs 1. Afebrile, hemodynamically stable, doing well 2. UOP adequate. Plug urethral Staton in the AM and if SPT is draining well then D/C urethral Staton and plug SPT to start voiding trials. 3. Pain: well controlled with PO meds 4. DVT prophylaxis: SCDs in place, ambulate in the AM 5. Continue routine post-op care Martha Lyon MD documented in this encounter H&P Notes * Gaby Ceballos MD - 12/20/2016 7:59 AM CDT Images from the original note were not included. > [address] [place] [address] FAX: [phone] PATIENT: Maria A Patel DATE OF : 1940 This 75 year old female presents for prolapse. History of Present Illness: 1. prolapse The symptoms began 13 years ago and generally lasts 13 Years. The symptoms are reported as being severe. The symptoms occur daily. The location is bladder. Aggravating factors include standing. Relieving factors include not sure. She states the symptoms are chronic and are uncontrolled. The patientunderwent surgery for prolapse with a laparoscopic hysterectomy and laparoscopic Alvarez. The surgerywas not successful and the patient has had prolapse since that time. The patient has had 9 urinary tract infection since 01-22-16. Nocturia x 3. Gynecologic History: Patient is Postmenopausal. Patient has had a hysterectomy. OBSTETRIC HISTORY Parity: Term:2. Pre-Term: 0. : 0. Livin. Full term: 2. Past Systemic History Medical History (Detailed) Disease Onset Date Comments Arthritis Hyperlipidemia Osteoporosis Spinal Stenosis Surgical History/Management (Detailed) Management Date Comments Tonsillectomy 1950 Mesh placed for Prolapse 2003 Hysteroscopy 2003 Colostomy 2011 Breast Biopsy 1991 back surgery 2006 Interim History: Type Date Problem Management 2011 Colostomy 2003 1950 Tonsillectomy Arthritis 2003 Hysteroscopy 2003 Mesh placed for Prolapse 2006 back surgery 1991 Breast Biopsy Hyperlipidemia Osteoporosis Spinal Stenosis PROBLEM LIST: Problem Description Onset Date Chronic Notes Spinal stenosis Y Medications (active prior to today) Medication Name Sig Desc Start Date Stop Date Refilled Elsewhere benzonatate 200 mg capsule take 1 capsule by oral route every day as needed for cough // Y biotin // Y Calcium 500 // Y cefpodoxime 100 mg tablet take 1 tablet by oral route every day // Y Estrace 0.01% (0.1 mg/gram) vaginal cream insert (1G) by vaginal route 3 times every week // Y Probiotic // Y Vitamin D3 // Y Medication Reconciliation Medications reconciled today. Allergies: Ingredient Reaction Medication Name Comment PREDNISONE Family History (Detailed) Relationship Family Member Name Age at Condition Onset Age Cause of Family h/o Breast Cancer Family h/o Colon Cancer SOCIAL HISTORY (Detailed) Preferred language is [place]. MARITAL STATUS/FAMILY/SOCIAL SUPPORT Currently . Smoking status: Never smoker. SMOKING STATUS Use Status Type Smoking Status Usage Per Day Years Used Total Pack Years no/never Never smoker ALCOHOL There is no history of alcohol use. Confidential Information Alcohol Use: The patient denies alcohol use. Sexual Practices: Patient is not sexually active. REVIEW OF SYSTEMS System Neg/Pos Details Constitutional Negative Chills, fatigue, fever, night sweats, weight gain and weight loss. ENMT Positive Hearing loss, Sinus pressure. ENMT Negative Sore throat. Eyes Positive Vision changes. Respiratory Positive Cough. Respiratory Negative Chronic cough, dyspnea and wheezing. Cardio Negative Chest pain, edema and irregular heartbeat/palpitations. GI Negative Abdominal pain, blood in stool, constipation, decreased appetite, diarrhea, fecal incontinence, flatulence, heartburn, nausea and vomiting. Positive Dysuria, Incomplete emptying, Nocturia (Frequency: 3x), Urinary frequency. Negative Stress incontinence, urge incontinence and urgency. Neuro Negative Dizziness, gait disturbance, headache, memory impairment, numbness in extremity and seizures. Psych Negative Anxiety, depression and insomnia. Integumentary Negative Hair loss, hirsutism, pruritus and rash. MS Positive Back pain, Muscle weakness. MS Negative Joint pain. Jose/Lymph Negative Easy bleeding and easy bruising. Allergic/Immuno Positive Environmental allergies. Allergic/Immuno Negative Contact allergy and seasonal allergies. Reproductive Negative Dyspareunia, fibroids and history of abnormal PAP smear. Physical Exam Exam Findings Details Constitutional Normal No acute distress. Well nourished. Well developed. Head/Face Normal Facial features - Normal. Eyebrows - Normal. Eyes Normal General - Right: Normal, Left: Normal. Lids/external - Right: Normal, Left: Normal. Pupil - Right: Normal, Left: Normal. Ears Normal Inspection - Right: Normal, Left: Normal. Hearing - Right: Normal, Left: Normal. Neck Exam Normal Inspection - Normal. Respiratory Normal Inspection - Normal. Cough - Absent. Effort - Normal. Cardiovascular Normal Heart rate - Regular rate. Abdomen Normal Inspection - Normal. Appliance(s) - None. Abdominal muscles - Normal. Anterior palpation - No Guarding,No rebound. No abdominal tenderness. Genitourinary * Perineum - attenuated. Vagina - [id number]. Cervix - surgically absent. Uterus - surgically absent. Adnexa - non-palpable, bilateral. Genitourinary Normal Urethral meatus - Normal. External genitalia - Normal. Glands - Normal. Anus -Normal. Bladder - Normal. No suprapubic tenderness. No vaginal discharge. Skin Normal Inspection - Normal. Palpation/texture - Normal. Nails - Normal. Hair - Normal. Musculoskeletal Normal Visual overview of all four extremities is normal. Gait - Normal. Neurological Normal Level of consciousness - Normal. Orientation - Normal. Memory - Normal. Balance& gait - Normal. Psychiatric Normal Oriented to time, place, person and situation. Appropriate mood and affect. Normal insight. Normal judgment. Medications (added or continued this visit): Started Medication Directions Instruction Stopped benzonatate 200 mg capsule take 1 capsule by oral route every day as needed for cough biotin Calcium 500 cefpodoxime 100 mg tablet take 1 tablet by oral route every day Estrace 0.01% (0.1 mg/gram) vaginal cream insert (1G) by vaginal route 3 times every week Probiotic Vitamin D3 Assessment and Plan Patient Plan Surgery has been offered to the patient including sacrospinous colpopexy, anterior and posterior colporrhaphy with cystocele and rectocele repair, enterocele repair, colpoperineorrhaphy, possible sling urethropexy and suprapubic tube placement. The patient was counseled on the use of mesh and possible effects including recurrent incontinence,retention of urine, and erosion with the possibility of repeat surgery to correct each of these. The patient has been counseled on the risks and benefits of surgery, alternate approaches and procedures as well as complications which include but are not limited to bleeding, infection as well as failure to achieve the desired physiologic result. The patient stated that she understood, had no questions, was given an opportunity to ask questions and wished to proceed with surgery. documented in this encounter OR Notes * Operative Report - Gaby Ceballos MD - 12/22/2016 10:29 AM CDT OPERATIVE REPORT Patient Name: Donnie : 1940 Date of Surgery: 12/20/2016 SURGEON Gaby Ceballos MD MATERNAL FETAL PHYSICIAN PREOPERATIVE DIAGNOSIS Post-hysterectomy vaginal vault prolapse, enterocele, cystocele and rectocele, absent perineum. POSTOPERATIVE DIAGNOSIS Same NAME OF OPERATION Sacrospinous colpopexy, enterocele repair, cystocele repair, anterior colporrhaphy, rectocele repair, posterior colporrhaphy, and colpoperineorrhaphy. ANESTHESIA General endotracheal. ANESTHESIOLOGIST ESTIMATED BLOOD LOSS 100 cc DRAINS Staton to gravity SPECIMENS None COMPLICATIONS None TECHNICAL REPORT The patient was taken to the operating room and placed on the operating room table in comfortable supine position. Following an adequate level of general endotracheal anesthesia, the patient was repositioned in the modified dorsal lithotomy position and prepped and draped in the usual manner for a combined abdomino-vaginal surgery. Two Kevin clamps were then placed at the 5:00 and 7:00 position at the level of the hymeneal ring.A V-shaped incision was made between these two Kochers and the skin was dissected off the perineum and rectum until the rectovaginal space was reached for the full extent of the posterior vaginal wall. The enterocele sac was identified, opened and Gotex sutures were removed followed by a purse stringligation was performed incorporating the uterosacral ligaments in the enterocele repair with a purse string suture of #0 Novofil. The second purse string suture was also placed. The excess enterocelesac was excised. The right pararectal space was opened and the mesh implant was passed through the coccygeus-sacrospinous ligament complex. The Staton catheter was then inserted and noted to be draining clear yellow urine. Two Allis clamps were placed on the anterior vaginal and an incision was made in the anterior vaginal wall entering the vesicovaginal space for the full extent of the anterior vaginal wall. The cystocele was dissectedcephalad, caudad and laterally. The cystocele repair was then performed with a running suture of #2-0 Dexon. Excess anterior vaginal wall was excised and the anterior vaginal wall was closed with a running suture of #2-0 Dexon. The site of the new vaginal apex was chosen and the mesh was secured to the vaginal apex and the site of the enterocele with #2-0 Dexon. The posterior vaginal wall closure was initiated with a sutureof # 2-0 Dexon. When one-half of the posterior vaginal wall was closed the vagina was elevated to the sacrospinous ligament. The rectocele was repaired with a running locked layer of #2-0 Dexon followed by a second imbricating layer of #2-0 Dexon. The perineum was reconstructed with interrupted sutures of #2-0 Dexon. The suture used to close the posterior vaginal wall was taken down to the level of the hymeneal ring and then brought down as a deep subcutaneous suture. The perineal skin was reapproximated with interrupted sutures of #3-0 Plain. The needle, sponge and instrument counts were correct times two. The vagina was lightly packed with Iodoform gauze packing. The Staton was connected to gravity drainage and the patient was transferred to the recovery room inexcellent condition. Gaby Ceballos MD documented in this encounter Miscellaneous Notes * Care Plan - Shyann Rucker RN - 12/21/2016 10:27 AM CDT Discharge Planning ??? Identify discharge needs upon admission and through discharge Progressing Clinical documentation reviewed. Comprehensive Discharge Planning Risk Assessment was completed. Total Score of 9 or below does not identify immediate needs for discharge. Age Score: 6 Disability Score: 0 Prior Living Status Score: 3 Mobility Limitation Score: 0 TOTAL SCORE: [address] consult if needs for discharge are identified. Care Management will continue to follow for discharge planning. Shyann Rucker RN, BSN Nurse [facility] [id number] * Care Plan - Hilda Drew RN - 12/21/2016 10:18 AM CDT Maria A Patel will be discharged via wheelchair to home. Maria A Patel is accompaniedby family member(s) and will be transported via private vehicle. Discharge instructions reviewed with patient. Patient verbalizes understanding. * Care Plan - Carol Saunders RN - 12/20/2016 2:53 PM CDT Pt having pain issues this afternoon. Has received Dilaudid, motrin and just given Percocet 5. Tolerating water, crackers and applesauce. Awake and alert, visiting with family. Vital signs stable. * Care Plan - Cherelle Delong RN - 12/20/2016 7:34 AM CDT Potential for anxiety related to surgical intervention Interventions: convey caring/supportive attitude; offer emotional support as needed; provide comfort measures (warm blanket, pillow, quiet environment); allow patient opportunity to verbalize concerns/fears/questions; explore coping behaviors; allow age-specific/special needs family support Expected Outcome: Patient will demonstrate decreased anxiety or adaptive coping strategies Outcome Met: patient calm and relaxed Knowledge deficit related to procedure/environment Interventions: Assess learning needs and willingness to learn; give clear, concise explanations of the environment and sequence of events surrounding the periop experience; address patient/family questions and concerns; provide teaching as indicated, provide teaching related to postoperative pain assessment utilizing pain scales Expected Outcome: Patient verbalizes or demonstrates awareness/understanding of surgery and perioperative experience Outcome Met: procedure discussed, verbalized understanding documented in this encounter Plan of Treatment Not on file documented as of this encounter Procedures Procedure Name Priority Date/Time Associated Diagnosis Comments PATHOLOGY Pathology 12/20/2016 10:22 AM CDT FOREIGN BODY REMOVAL 12/20/2016 8:30 AM CDT Case Notes [facility] 11/03/16; /CPT 28231, 72730, 92748, 43191, 82698 COLPOPERINEORRHAPHY 12/20/2016 8 :30 AM CDT Case Notes [facility] 11/03/16; /CPT 47004, 41096, 20811, 53946, 57678 ANTERIOR POSTERIOR REPAIR 2016 8:30 AM CDT Case Notes [facility] 11/03/16; /CPT 23888, 09441, 49360, 79985, 43324 SACROSPINOUS LIGAMENT FIXATION 12/20/2016 8:30 AM CDT Case Notes [facility] 11/03/16; /CPT 47336, 07848, 82334, 74759, 05191 VERIFICATION BLOOD GROUP Stat 017 7:55 AM CDT Folic acid deficiency (non anemic) documented in this encounter Results * PATHOLOGY (12/20/2016 10:22 AM CDT) CASE REPORT Surgical Pathology Report ? Case: [id number] ? Authorizing Provider: ??Gaby Ceballos MD Collected: ? 12/20/2016 10:22 AM ? Ordering Location: ? [facility] ?Received: ?12/20/2016 12:19 PM ? Operating Room ? Pathologist: ? Kasie Adame MD ? Specimen: ?Vagina, vaginal foreign body ? 12/21/2016 5:26 PM [facility] FINAL DIAGNOSIS Vagina, excision: - Fibroadipose tissue with foreign body giant cell reaction to polarizable foreign material. - No evidence of malignancy. 12/21/2016 5:26 PM [facility] IMEN DESCRIPTION Vaginal foreign body. 12/21/2016 5:26 PM [facility] OPERATIVE PROCEDURE Sacrospinous ligament fixation, bladder suspension sling insertion, catheter suprapubic insertion, anterior posterior repair with enterocele and cystocele and rectocele, colpoperineorrhaphy, foreign body removal. 12/21/2016 5:26 PM [facility] CLINICAL DIAGNOSIS Not provided (prolapse, status post laparoscopic hysterectomy and laparoscopic Alvarez per Epic). 12/21/2016 5:26 PM [facility] GROSS DESCRIPTION Received in a single container labeled Maria A Patel and vaginal foreign body is a piece of bob, presumed rubber tubing measuring 2.2 cm long x 0.1 cm in diameter with a small amount of adherent pink soft tissue. There is also a T-shaped portion of bob rubber tubing measuring 2.8 x 2.5 x 0.1 cm with a small amount of attached pink soft tissue. The bottom of the T appears hooked. One additional piece of pink soft tissue is received in the container measuring 1.5 x 1.1 x 0.3 cm. Embedded in this piece of soft tissue are several pieces of either rubbery or plastic, white to bob material. Two small business representative sections are submitted labeled A1. The remaining tissue and foreign body are returned to their original container and saved. Gross photographs were taken prior to sectioning. ALG/saba 12/21/2016 5:26 PM CDT [facility] MICROSCOPIC DESCRIPTION The slides are labeled [id number] and Maria A Patel. Sections of the soft tissue attached to the foreign material received shows benign fibroadipose tissue with foreign body giant cell reaction to polarizable foreign material. No evidence of malignancy is identified. 12/21/2016 5:26 PM CDT [facility] COMMENT Special stain and/or immunohistochemical results are interpreted with controls that demonstrate appropriate staining reactions. Note on use of immunocytochemistry reagents: This test was developed and its performance characteristic determined by [facility], Department of Laboratory Medicine. It has not been cleared or approved by the U.S. Food and Drug Administration. The FDA has determined that such clearance or approval is not necessary. The test is used for clinical purpose. It should not be regarded as investigational or for research. This laboratory is certified to perform high complexity testing. Case types starting with WS, WF, WB and WH are performed by [address], [address]. All other case types are performed by [place] [address] [address] [facility], [address]. 12/21/2016 5:26 PM CDT [facility] Tissue SPECIMEN FROM VAGINA / Unknown 12/20/2016 10:22 AM CDT 12/20/2016 12:19 PM CDT Gaby Ceballos MD PATHOLOGY/CYTOL OGY ORDERABLES [facility] CLIA# [id number] [address] [place] [address] * VERIFICATION BLOOD GROUP (12/20/2016 7:55 AM CDT) ABO GROUP O 12/20/2016 7:24 AM CDT [facility] RH (D) TYPE Positive 12/20/2016 7:24 AM CDT [facility] Blood Venipuncture / Unknown 12/20/2016 7:55 AM CDT 12/20/2016 8:02 AM CDT Judit Peck MD BLOOD BANK ORDKaren DAY [facility] CLIA# [id number] [address] [place] [address] documented in this encounter Visit Diagnoses Diagnosis Folic acid deficiency (non anemic)- Primary Other B-complex deficiencies documented in this encounter Administered Medications Inactive Administered Medications - up to 3 most recent administrations Medication Order MAR Action Action Date Dose Rate Site ceFAZolin (ANCEF) 2,000 mg in dextrose (iso-osmotic) 100 mL IVPB (PREMIX) 2,000 mg, IV, POST-PROCEDURE Q 8 HOURS, 2 doses, First dose on Sun12/20/16 at 1700, Last dose on Sun12/21/16 at 0100, Routine, Antibiotic Indication: Surgical prophylaxis New Bag 12/21/2016 12:56 AM CDT 2,000 mg 200 mL/hr New Bag 12/20/2016 5:04 PM CDT 2,000 mg 200 mL/hr docusate sodium (COLACE) capsule 100 mg 100 mg, Oral, TWO TIMES DAILY, First dose on Sun12/20/16 at 1300, Until Discontinued, Routine Given 12/21/2016 8:03 AM CDT 100 mg Given 12/20/2016 8:52 PM CDT 100 mg HYDROmorphone (DILAUDID) 1 mg/mL injection 0.3 mg 0.3 mg, IV, EVERY 1 HOUR PRN, Starting on Sun12/20/16 at 1258, Until Sun12/21/16 at 1242, Pain (See admin instructions), Routine Given 12/20/2016 1:01 PM CDT 0.3 mg HYDROmorphone (DILAUDID) 1 mg/mL injection 0.3 mg 0.3 mg, IV, POST-PROCEDURE Q 5 MINUTES PRN, Starting on Sun12/20/16 at 0716, Until Sun12/20/16 at 1254, Pain, Mild, For pain scale 1-3, Routine, PACU Given 12/20/2016 12:03 PM CDT 0.3 mg ibuprofen (MOTRIN) tablet 600 mg 600 mg, Oral, EVERY 6 HOURS PRN, Starting on Sun12/20/16 at 1256, Until Kathya 12/21/16 at 1242, Pain, Mild, Routine Given 12/21/2016 8:03 AM CDT 600 mg Given 12/20/2016 8:53 PM CDT 600 mg Given 12/20/2016 1:13 PM CDT 600 mg lactated Ringers solution INTRA-PROCEDURE CONTINUOUS PRN, Starting on Sun12/20/16 at 0743, Until Sun12/20/16 at 1150, Routine, Anesthesia Intra-op New Bag 12/20/2016 10:09 AM CDT Continue from Pre-Op 12/20/2016 9:11 AM CDT New Bag 12/20/2016 7:51 AM CDT 1,000 mL lactated Ringers solution IV, at 125 mL/hr, CONTINUOUS, Starting on Sun12/20/16 at 1300, Until Kathya 12/21/16 at 1242, Routine New Bag 12/20/2016 8:52 PM CDT 125 m L/hr New Bag 12/20/2016 1:06 PM CDT 125 mL/hr lactated Ringers solution IV, at 125 mL/hr, POST-PROCEDURE CONTINUOUS, Starting on Sun12/20/16 at 0730, Until Kathya 12/21/16 at 1242, Routine, PACU metoclopramide HCl (REGLAN) tablet 10 mg 10 mg, Oral, FOUR TIMES DAILY BEFORE MEALS AND AT BEDTIME, First dose on Sun12/20/16 at 1630, Until Discontinued, Routine Given 12/21/2016 8:02 AM CDT 10 mg Given 12/20/2016 8:53 PM CDT 10 mg Given 12/20/2016 5:03 PM CDT 10 mg ondansetron (ZOFRAN) 4 mg/2 mL injection 4 mg 4 mg, IV, EVERY 6 HOURS, 4 doses, First dose on Sun12/20/16 at 1300, Last dose on Sun12/21/16 at 0600, Routine Given 12/21/2016 7:01 AM CDT 4 mg Given 12/21/2016 12:56 AM CDT 4 mg Given 12/20/2016 2:49 PM CDT 4 mg oxyCODONE-acetaminophen (PERCOCET) 5-325 mg per tablet 1 Tablet 1 Tablet, Oral, EVERY 4 HOURS PRN, Starting on Sun12/20/16 at 1256, Until Sun12/21/16 at 1242, Pain, Mild, Routine Given 12/21/2016 7:06 AM CDT 1 Tablet Given 12/20/2016 2:45 PM CDT 1 Tablet pantoprazole (PROTONIX) tablet 40 mg 40 mg, Oral, DAILY, First dose on Sun12/20/16 at 1300, Until Discontinued, Routine Given 12/21/2016 8:02 AM CDT 40 mg Given 12/20/2016 2:47 PM CDT 40 mg scopolamine (TRANSDERM-SCOP) 1 mg over 3 days transdermal patch 1.5 mg 1.5 mg, Transdermal, EVERY 72 HOURS, First dose on Sun12/20/16 at 2100, Until Discontinued, Routine Applied 12/20/2016 10:50 PM CDT 1.5 mg Other (Comment) simvastatin (ZOCOR) tablet 10 mg 10 mg, Oral, DAILY AT BEDTIME, First dose on Sun12/20/16 at 2100, Until Discontinued Given 12/20/2016 8:52 PM CDT 10 mg documented in this encounter Active and Recently Administered Medications Times are shown in CDT. Scheduled Medication Order 12/19/2016 12/20/2016 12/21/2016 bupivacaine-EPINEPHrine (SENSORCAINE-EPINEPHRINE) 0.25 %-1:200,000 injection 125 mg 125 mg (50 mL), Infiltration, ONE TIME ONLY, 1 dose, On Sun12/20/16 at 0845, Routine, Intra-op 0845 (Not Given - Provider: Hilda Drew RN - Reason: Patient off unit) ceFAZolin (ANCEF) 2,000 mg in dextrose (iso-osmotic) 100 mL IVPB (PREMIX) (COMPLETED) 2,000 mg, IV, POST-PROCEDURE Q 8 HOURS, 2 doses, First dose on Sun12/20/16 at 1700, Last dose on Kathay 12/21/16 at 0100, Routine, Antibiotic Indication: Surgical prophylaxis 170 (New Bag - Provider: Hilda Drew RN)1734 (Stopped - Provider: Hilda Drew RN) 0056 (New Bag - Provider: Martha Peterson RN)0126 (Stopped - Provider: Martha Peterson RN) ceFAZolin (ANCEF) IVPB 2,000 mg (COMPLETED) 2,000 mg, IV, PRE-PROCEDURE ONCE, 1 dose, Starting on Sun12/20/16 at 0723, Until Sun12/20/16 at 0933, Routine, Pre-op, Antibiotic Indication: Surgical prophylaxis 09 (Given - Provider: Marina Black CRNA) docusate sodium (COLACE) capsule 100 mg 100 mg, Oral, TWO TIMES DAILY, First dose on Sun12/20/16 at 1300, Until Discontinued, Routine 1300 (Not Given - Provider: Carol Saunders RN - Reason: Patient condition)2051 (Given - Provider: Martha Peterson RN) 0803 (Given - Provider: Hilda Drew RN) metoclopramide HCl (REGLAN) tablet 10 mg 10 mg, Oral, FOUR TIMES DAILY BEFORE MEALS AND AT BEDTIME, First dose on Sun12/20/16 at 1630, Until Discontinued, Routine 1703 (Given - Provider: Hilda Drew RN)205 (Given - Provider: Martha Peterson RN) 0802 (Given - Provider: Hilda Drew RN) ondansetron (ZOFRAN) 4 mg/2 mL injection 4 mg 4 mg, IV, EVERY 6 HOURS, 4 doses, First dose on Sun12/20/16 at 1300, Last dose on Kathya 12/21/16 at 0600, Routine 1449 (Given - Provider: Carol Saunders RN)1800 (Not Given - Provider: Hilda Drew RN - Reason: Staggering dose times) 0056 (Given - Provider: Martha Peterson RN)0701 (Given - Provider: Melida Pimentel RN) pantoprazole (PROTONIX) tablet 40 mg 40 mg, Oral, DAILY, First dose on Sun12/20/16 at 1300, Until Discontinued, Routine 1447 (Given - Provider: Carol Saunders RN) 0802 (Given - Provider: Hilda Drew, JOHN) scopolamine (TRANSDERM-SCOP) 1 mg over 3 days transdermal patch 1.5 mg 1.5 mg, Transdermal, EVERY 72 HOURS, First dose on Sun12/20/16 at 2100, Until Discontinued, Routine 2250 (Applied - Provider: Martha Peterson, JOHN - Comment: left ear) 1042 (Due: Removed - Provider: PROVIDER, DISCHARGE PATIENT - Comment: Time automatically adjusted from order being discontinued) simvastatin (ZOCOR) tablet 10 mg 10 mg, Oral, DAILY AT BEDTIME, First dose on Sun12/20/16 at 2100, Until Discontinued 2051 (Given - Provider: Martha Peterson RN) Continuous Medication Order 12/19/2016 12/20/2016 12/21/2016 lactated Ringers solution IV, at 125 mL/hr, CONTINUOUS, Starting on Sun12/20/16 at 1300, Until Kathya 12/21/16 at 1242, Routine 1306 (New Bag - Provider: Xin Saunders RN)2051 (New Bag - Provider: Martha Peterson RN) lactated Ringers solution IV, at 125 mL/hr, POST-PROCEDURE CONTINUOUS, Starting on Sun12/20/16 at 0730, Until Kathya 12/21/16 at 1242, Routine, PACU 0730 (Not Given - Provider: Hilda Drew, JOHN - Reason: Patient off unit) PRN Medication Order 12/19/2016 12/20/2016 12/21/2016 bupivacaine-EPINEPHrine (SENSORCAINE-EPINEPHRINE) 0.25 %-1:200,000 injection (CANCELED) INTRA-PROCEDURE PRN, Starting on Sun12/20/16 at 1038, Until Sun12/20/16 at 1146, Routine, Intra-op 1038 (Given - Provider: Gaby Ceballos MD) HYDROmorphone (DILAUDID) 1 mg/mL injection 0.3 mg 0.3 mg, IV, EVERY 1 HOUR PRN, Starting on Sun12/20/16 at 1258, Until Kathya 12/21/16 at 1242, Pain (See admin instructions), Routine 1301 (Given - Provider: Carol Saunders RN) HYDROmorphone (DILAUDID) 1 mg/mL injection 0.3 mg (CANCELED) 0.3 mg, IV, POST-PROCEDURE Q 5 MINUTES PRN, Starting on Sun12/20/16 at 0716, Until Sun12/20/16 at 1254, Pain, Mild, For pain scale 1-3, Routine, PACU 1203 (Given - Provider: Yanet Hightower RN) ibuprofen (MOTRIN) tablet 600 mg 600 mg, Oral, EVERY 6 HOURS PRN, Starting on Sun12/20/16 at 1256, Until Kathya 12/21/16 at 1242, Pain, Mild, Routine 1313 (Given - Provider: Carol Saunders RN)2053 (Given - Provider: Martha Peterson RN) 0803 (Given - Provider: Hilda Drew RN) lactated Ringers solution (CANCELED) INTRA-PROCEDURE CONTINUOUS PRN, Starting on Sun12/20/16 at 0743, Until Sun12/20/16 at 1150, Routine, Anesthesia Intra-op 0743 (Canceled Entry - Provider: Marina Black CRNA)0751 (New Bag - Provider: Cherelle Delong RN)0911 (Continue from Pre-Op - Provider: Marina Black CRNA)1009 (New Bag - Provider: Marina Black CRNA)1133 (Fluid Volume - Provider: Marina Black CRNA) oxyCODONE-acetaminophen (PERCOCET) 10-325 mg per tablet 1 Tablet 1 Tablet, Oral, EVERY 4 HOURS PRN, Starting on Sun12/20/16 at 1256, Until Kathya 12/21/16 at 1242, Pain, Moderate, Pain, Severe, Routine oxyCODONE-acetaminophen (PERCOCET) 5-325 mg per tablet 1 Tablet 1 Tablet, Oral, EVERY 4 HOURS PRN, Starting on Sun12/20/16 at 1256, Until Kathya 12/21/16 at 1242, Pain, Mild, Routine 1445 (Given - Provider: Carol Saunders RN) 0706 (Given - Provider: Melida Pimentel RN) sodium chloride 0.9 % irrigation solution (CANCELED) INTRA-PROCEDURE PRN, Starting on Sun12/20/16 at 1038, Until Sun12/20/16 at 1146, Routine, Intra-op 1038 (Given - Provider: Gaby Ceballos MD - Comment: PRN irrigation on field) documented in this encounter Care Teams Process Assistant Relationship Specialty Start Date End Date Angelica Frankel MD [address] [address] PCP - General Internal Medicine 08/11/11 documented as of this encounter
--- OUTSIDE RECORDS SUMMARY | 2024-03-15 10:19 | XMS_ITS | Clinical Summary ---
Author Organization [facility] Address [address] [place] [address] Care Team Providers Care Co Director Name Role Phone Angelica Frankel MD Primary Care Provider [phone] Source Comments [facility],non-owned Affiliates and Associated Physician Practices is amultiple site organization consisting of ambulatory clinics and hospital sitesin [place], [place], [place] and [place]. This disclosure is being madepursuant to the Care Everywhere program and may not contain all information available regarding this patient. Last updated 17.[facility] [employer] Social History Tobacco Use Types Packs/Day Years Used Date Smoking Tobacco: Never Assessed Sex and Gender Information Value Date Recorded Sex Assigned at Not on file Gender Identity Not on file Sexual Orientation Not on file Plan of Treatment Health Maintenance Due Date Last Done Comments BONE DENSITY TESTING 1938 DTAP/TDAP/TD VACCINES (1 - Tdap) 1957 ZOSTER VACCINE (1 of 2) 1988 PNEUMOCOCCAL VACCINE 65+ (1 of 1 - PCV) 12/24/2003 Respiratory Syncytial Virus (RSV) Vaccine Pt: or over 60 yrs (1 - 1-dose 75+ series) 2013 DEPRESSION SCREENING 03/12/2023 COVID-19 VACCINE (2023-2 5 season) 2023 INFLUENZA VACCINE (#1) 2023 HEPATITIS B VACCINE Aged Out No longe r eligible based on patient's age to complete this topic HIB VACCINE Aged Out No longer eligi ble based on patient's age to complete this topic HPV VACCINE Aged Out No longer eligi ble based on patient's age to complete this topic MENINGOCOCCAL VACCINE Aged Out No speedy ramos eligible based on patient's age to complete this topic Care Teams Co Director Relationship Specialty Start Date End Date Angelica Frankel MD [address] [place] [address] [address] [place] [address] PCP - General 10/10/16
--- OUTSIDE RECORDS SUMMARY | 2024-03-15 10:19 | XMS_ITS | Patient Health Summary ---
Author Organization [facility] Address [address] [place] [address] Care Team Providers Care Shale Processing Technician Name Role Phone Angelica Frankel MD Primary Care Provider [phone] Note from [facility],non-owned Affiliates and Associated Physician Practices is amultiple site organization consisting of ambulatory clinics and hospital sitesin [place], [place], [place] and [place]. This disclosure is being madepursuant to the Care Everywhere program and may not contain all information available regarding this patient. Last updated 17.[facility] [employer] Social History Tobacco Use Types Packs/Day Years Used Date Smoking Tobacco: Never Assessed Sex and Gender Information Value Date Recorded Sex Assigned at Not on file Gender Identity Not on file Sexual Orientation Not on file Procedures * DERMATOPATHOLOGY(Performed 12/05/2011) * DERMATOPATHOLOGY(Performed 11/10/2011) Results * PATHOLOGY TISSUE FOR DERMATOLOGY (12/05/2011 12:00 AM CDT) Only the most recent of2 resultswithin the time period is included. 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 Check margins. Previous Bx: ??[id number]. GROSS DESCRIPTION: Received is one formalin filled container labeled with the patient's name and designated left neck. The specimen consists of an ellipse measuring [id number] and is oriented with a notch at the 12 o'clock position (labeled on the requisition as notch anterior). The 12 o'clock to 6 o'clock margin is inked green. The 6 o'clock to 12 o'clock margin is inked black. The 12 o'clock tip is submitted in cassette 1. The 6 o'clock tip is submitted in cassette 2. The remainder of the ellipse is serially sectioned and submitted in cassettes 3-4. Jar 0. MICROSCOPIC DESCRIPTION: Within the dermis there are aggregates of basaloid cells with a high nuclear to cytoplasmic ratio and peripheral palisading. The lesion is not present at the margin of the specimen. There are fibroblasts and collagen bundles oriented parallel to the skin surface with elongated blood vessels, some of which are oriented perpendicular to the skin surface. Final Diagnosis performed by Daniela Cifuentes M.D. Electronically signed 12/07/2011 4:33:43PM [facility] Comment: Performed at: Dermatopathology Laboratory [facility] Department of Dermatology [address] [place] [address], [address] [place] [address] Phone number: [phone] Toll Free: [phone] FAX: [phone] 12/05/2011 12/06/2011 [facility] LAB - PATHOLOGY/CYTO LOGY ORDERABLES [facility] [address] [place] [address]. 5[address] Floor Lab [address] [phone] Care Teams Shale Processing Technician Relationship Specialty Start Date End Date Angelica Frankel MD [address] [place] [address] PCP - General 10/10/16
--- OUTSIDE RECORDS SUMMARY | 2024-03-15 10:19 | XMS_ITS | Referral Summary ---
Author Organization [facility] Address [address] [place] [address] Care Team Providers Care Electrophonic Engineer Name Role Phone Angelica Frankel MD Primary Care Provider [phone] Source Comments [facility],non-owned Affiliates and Associated Physician Practices is amultiple site organization consisting of ambulatory clinics and hospital sitesin [place], [place], [place] and [place]. This disclosure is being madepursuant to the Care Everywhere program and may not contain all information available regarding this patient. Last updated 17.[facility] [employer] Social History Tobacco Use Types Packs/Day Years Used Date Smoking Tobacco: Never Assessed Sex and Gender Information Value Date Recorded Sex Assigned at Not on file Gender Identity Not on file Sexual Orientation Not on file Plan of Treatment Not on file Care Teams Electrophonic Engineer Relationship Specialty Start Date End Date Angelica Frankel MD [address] [place] [address] [address] [place] [address] PCP - General 10/10/16
--- OUTSIDE RECORDS SUMMARY | 2024-03-15 10:19 | XMS_ITS | Encounter Summary ---
Author Organization [facility] Address [address] [place] [address] Care Team Providers Care Divinity Professor Name Role Phone Angelica Frankel MD Primary Care Provider [phone] Reason for Visit * Auth/Cert Specialty Diagnoses / Procedures Referred By Dacia tan Referred To Contact Procedures [place] REPAIR VAGINA/PERINEUM VT REPR VAGINAL PROLAPSE,SACROSP LIG Gaby Ceballos MD [address] [facility] [address] [address] Referral ID Status Reason Start Date Expiration Date Visits Re quested Visits Authorized [id number] 11/02/2016 1 1 Encounter Details Date Type Department Care Team (Late st Contact Info) Description 12/20/2016 9:11 AM CDT Anesthesia Event [facility] Operating Room [address] [place] [address] Isidro Newman MD [address] [place] [address] Marina Black, [facility] [address] [place] [address] Anesthesia Record Procedure Summary Procedure Name Responsible Anesthesiologist Anesthesia Start Time Anesthesia Stop Time SACROSPINOUS LIGAMENT FIXATION (Perineum) Isidro Newman MD 12/20/16 0911 12/20/16 1150 Events Date Time Event Comment 12/20/2016 0708 Intended Opioids 0710 AN Equip Check Anesthesia eq uipment and materials checked in accordance with local policy. 0849 0911 An Start 0913 An Start Data 0916 Pre-Induction Immediate pre- induction anesthetic assessment performed. Vital signs as noted on graphic. 0917 An Induction 0922 An Intubation 0924 Anesthesia Ready 0954 Quick Note Procedure start ed. 1005 Quick Note Injecting per s urgeon 1036 Quick Note Injecting per s urgeon. 1135 An Extubation Emergence unev entful Awake, spontaneous respirations. Adequate muscle strength demonstrated Adequate tidal volume. Orapharynx suctioned. Extubated with positive pressure ventilation. 1139 Quick Note On hold to PACU 1145 an stop data 1150 An Stop Meds Name Total lidocaine (XYLOCAINE) 2% injection 60 mg propofol (DIPRIVAN) 10??mg/mL injection 250 mg rocuronium (ZEMURON) 10 mg/mL 5 mL injec tion 40 mg neostigmine (PROSTIGMINE) 4 mg/4 mL (1 m g/mL) injection 4 mg glycopyrrolate (ROBINUL) 0.4 mg/2 mL (0. 2 mg/mL) syringe 0.6 mg fentaNYL (SUBLIMAZE) PF 50??mcg/mL injec tion 100 mcg HYDROmorphone (DILAUDID) 1 mg/mL injecti on 0.5 mg midazolam PF (VERSED) 1 mg/mL injection 3 mg famotidine PF (PEPCID) 20mg/2 mL injecti on 20 mg ondansetron (ZOFRAN) 4??mg/2 mL injectio n 4 mg dexamethasone (DECADRON) 4 mg/mL injecti on 4 mg ceFAZolin (ANCEF) IVPB 2,000 mg 2,000 mg ePHEDrine 50 mg/mL injection 10 mg lactated ringers infusion 1,500 mL * Agents Name Sevoflurane % Sevoflurane O2 N2O Inspired N2O O2 * Blood No blood administrations on file. Lines, Drains, and Airways Type Details Placement Removal Peripheral IV Pre-Hospital Start: No; Orientation: Inner, Lower; Location: Arm; Device: Angiocath; Gauge: 18 gauge; Needle Length: 1.25 in length; Insertion Attempts: 2 (started by anesthesia); Patient Tolerance: tolerated well; Pain Prevention: intradermal injection 12/20/16742 by Cherelle Delong RN 12/21/16742 by Hilda Drew FNP Endotracheal Airway Type: ETT, Oral; Cuf f Pressure: minimal leak technique, minimal occluding volume, cuff inflated; Size: 7; Site: mouth; Attempts: 1; FOV: II; cm: 22; Device: Straight Blade, Stylet; Blade: 2; Secured: secured with tape; Cricoid: Yes (needed to view cords); Verification: Auscultated bilateral breath sounds, Equal chest movement, Continuous waveform capnography 12/20/16 0922 by Marina Black CRNA 12/20/16 1135 by Marina Black CRNA 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 Ceballos); 12/21/16; 2242 12/20/16 1034 by Sara Reeder RN 12/21/16 2242 by PROVIDER, DISCHARGE PATIENT Adult Incision 12/20/16; 1132; surgical incision; other (comment); vagina; 12/21/16; 2242 12/20/16 1132 by Araceli Guzman, JOHN 12/21/16 2242 by PROVIDER, DISCHARGE PATIENT documented in this encounter Social History Tobacco [...] on file documented as of this encounter OR Notes * Anesthesia Postprocedure Evaluation - Nikolai Perez MD - 12/20/2016 12:13 PM CDT Post Anesthesia Evaluation Vitals: BP 125/52 (Patient Position (BP): Supine) Pulse 78 Temp 37.2 ??C (Skin) Resp 16 Ht 5' 2 (1.575 m) Wt 78.4 kg (172 lb 12.8 oz) SpO2 95% BMI 31.61 kg/m?? Pain Rating: Pain Rating: Rest: 2 (12/20/16 1200) Nausea/Vomiting: no nausea and no vomiting Post-Op hydration: well hydrated Respiratory function: no respiratory symptoms Airway patency: normal Cardiovascular function: Normal - Regular rate and rhythm Mental status, LOC: 0=alert; keenly responsive Patient participated in evaluation: yes Unanticipated Events: no Nikolai Perez MD * Anesthesia Handoff - Marina Black CRNA - 12/20/2016 11:49 AM CDT Post-Anesthetic transfer of care report elements to appropriate post-anesthesia recovery environment completed in accordance with procedure. I completed my handoff to the receiving nurse during which we: 1. Identified the patient 2. Identified the responsible provider 3. Reviewed the pertinent medical history 4. Discussed the surgical course 5. Reviewed intra-op anesthesia management and issues during anesthesia 6. Set expectations for post-procedure period 7. Allowed opportunity for questions and acknowledgement of understanding. Vital Signs: BP: 118/52 (12/20/2016 11:46 AM) Pulse: 78 (12/20/2016 7:10 AM) Heart Rate: 79 bpm (12/20/2016 11:46 AM) Temp: 37.2 ??C (12/20/2016 11:46 AM) Resp: 14 (12/20/2016 11:46 AM) SpO2: 99 % (12/20/2016 11:46 AM) 11:49 AM Marina Black CRNA * Anesthesia Preprocedure Evaluation - Isidro Newman MD - 12/20/2016 8:19 AM CDT Relevant Problems No active problems are marked relevant to this note. Anesthesia Evaluation Patient summary reviewed Airway Mallampati: II TM distance: >3 FB Neck ROM: full Dental - normal exam Pulmonary - negative ROS and normal exam breath sounds clear to auscultation Cardiovascular - normal exam (+) valvular problems/murmurs MVP, Rhythm: regular Rate: normal ROS comment: Hyperlipidemia Neuro/Psych (+) psychiatric history (Anxiety and depression) GI/Hepatic/Renal - negative ROS Endo/Other (+) arthritis Comments: Obesity Abdominal (+) obese, Anesthesia History History of anesthetic complications (Slow to wake). 75 yo F for sacrospinous ligament fixation and related procedures. PACE note reviewed Lab Results Component Value Date/Time WBC 5.6 11/29/2016 12:11 PM HGB 13.7 11/29/2016 12:11 PM HCT 43.4 11/29/2016 12:11 PM PLT 216 11/29/2016 12:11 PM MCV 92.9 11/29/2016 12:11 PM Anesthesia Plan ASA 3 General Intravenous induction Oral ETT airway maintenance NPO status > 8 hours Anesthetic plan and risks discussed with Patient and Patient Designated Certified Diabetes Educator. Plan discussed with Nurse Sql Ssrs Developer. Post-op Pain Control Plan to use IV or IM medication for post-op pain control. Plan for postoperative opioid use Smoking Compliance Patient did not smoke on day of surgery Questions solicited and answered. Isidro Newman M.D. Anesthesiologist Zone Phone: [phone] documented in this encounter Plan of Treatment Not on file documented as of this encounter Visit Diagnoses Not on filedocumented in this encounter Administered Medications Inactive Administered Medications - up to 3 most recent administrations Medication Order MAR Action Action Date Dose Rate Site ceFAZolin (ANCEF) IVPB 2,000 mg 2,000 mg, IV, PRE-PROCEDURE ONCE, 1 dose, Starting on Sun12/20/16 at 0723, Until Sun12/20/16 at 0933, Routine, Pre-op, Antibiotic Indication: Surgical prophylaxis Given 12/20/2016 9:33 AM CDT 2,000 mg dexamethasone (DECADRON) injection INTRA-PROCEDURE PRN, Starting on Sun12/20/16 at 0928, Until Sun12/20/16 at 1150, Routine, Anesthesia Intra-op Given 12/20/2016 9:28 AM CDT 4 mg ePHEDrine injection INTRA-PROCEDURE PRN, Starting on Sun12/20/16 at 0945, Until Sun12/20/16 at 1150, Routine, Anesthesia Intra-op Given 12/20/2016 9:45 AM CDT 10 mg famotidine PF (PEPCID) 20 mg/2 mL injection INTRA-PROCEDURE PRN, Starting on Sun12/20/16 at 0929, Until Sun12/20/16 at 1150, Routine, Anesthesia Intra-op Given 12/20/2016 9:29 AM CDT 20 mg fentaNYL PF (SUBLIMAZE) 50 mcg/mL injection INTRA-PROCEDURE PRN, Starting on Sun12/20/16 at 0917, Until Sun12/20/16 at 1150, Pain (See admin instructions), Routine, Anesthesia Intra-op Given 12/20/2016 9:17 AM CDT 100 mcg glycopyrrolate (ROBINUL) injection INTRA-PROCEDURE PRN, Starting on Sun12/20/16 at 0944, Until Sun12/20/16 at 1150, Routine, Anesthesia Intra-op Given 12/20/2016 11:27 AM CDT 0.4 mg Given 12/20/2016 9:44 AM CDT 0.2 mg HYDROmorphone (DILAUDID) 1 mg/mL injection INTRA-PROCEDURE PRN, Starting on Sun12/20/16 at 0932, Until Sun12/20/16 at 1150, Pain (See admin instructions), Routine, Anesthesia Intra-op Given 12/20/2016 9:32 AM CDT 0.5 mg lactated Ringers solution INTRA-PROCEDURE CONTINUOUS PRN, Starting on Sun12/20/16 at 0743, Until Sun12/20/16 at 1150, Routine, Anesthesia Intra-op New Bag 12/20/2016 10:09 AM CDT Continue from Pre-Op 12/20/2016 9:11 AM CDT New Bag 12/20/2016 7:51 AM CDT 1,000 mL lidocaine 2 % (XYLOCAINE) injection INTRA-PROCEDURE PRN, Starting on Sun12/20/16 at 0917, Until Sun12/20/16 at 1150, Other (See Comment), Routine, Anesthesia Intra-op Given 12/20/2016 9:17 AM CDT 60 mg midazolam (PF) (VERSED) injection INTRA-PROCEDURE PRN, Starting on Sun12/20/16 at 0911, Until Sun12/20/16 at 1150, Routine, Anesthesia Intra-op Given 12/20/2016 9:11 AM CDT 3 mg neostigmine (PROSTIGMINE) 4 mg/4 mL (1 mg/mL) injection INTRA-PROCEDURE PRN, Starting on Sun12/20/16 at 1127, Until Sun12/20/16 at 1150, Routine, Anesthesia Intra-op Given 12/20/2016 11:27 AM CDT 4 mg ondansetron (ZOFRAN) 4 mg/2 mL injection INTRA-PROCEDURE PRN, Starting on Sun12/20/16 at 0929, Until Sun12/20/16 at 1150, Nausea/Emesis, Routine, Anesthesia Intra-op Given 12/20/2016 9:29 AM CDT 4 mg propofol (DIPRIVAN) injection INTRA-PROCEDURE PRN, Starting on Sun12/20/16 at 0917, Until Sun12/20/16 at 1150, Anesthesia Intra-op Given 12/20/2016 10:20 AM CDT 100 mg Given 12/20/2016 9:17 AM CDT 150 mg rocuronium (ZEMURON) injection INTRA-PROCEDURE PRN, Starting on Sun12/20/16 at 0917, Until Sun12/20/16 at 1150, Routine, Anesthesia Intra-op Given 12/20/2016 10:20 AM CDT 10 mg Given 12/20/2016 9:17 AM CDT 30 mg documented in this encounter Care Teams Divinity Professor Relationship Specialty Start Date End Date Angelica Frankel MD [address] [place] [address] Rd [address] [address] PCP - General Internal Medicine 08/11/11 documented as of this encounter
--- OUTSIDE RECORDS SUMMARY | 2024-03-15 10:19 | XMS_ITS | Encounter Summary ---
Author Organization [facility] Address [address] [place] [address] Care Team Providers Care Box Closing Machine Operator Name Role Phone Angelica Frankel MD Primary Care Provider [phone] Reason for Visit * Auth/Cert Specialty Diagnoses / Procedures Referred By Dacia t Referred To Contact Procedures [place] REPAIR VAGINA/PERINEUM [place] REPR VAGINAL PROLAPSE,SACROSP LIG Gaby Ceballos MD [address] [address] Referral ID Status Reason Start Date Expiration Date Visits Re quested Visits Authorized [id number] 11/02/2016 1 1 Encounter Details Date Type Department Care Team (Late st Contact Info) Description 12/20/2016 8:45 AM CDT - 12/20/2016 11:15 AM CDT Surgery [facility] Operating Room [address] [place] [id number] Gaby Ceballos MD [address] [address] SACROSPINOUS LIGAMENT FIXATION Surgery Details Date/Time Status Location OR Service Patient Class Case Class Case Type Trauma Case? 12/20/2016 8:45 AM Posted [facility] OR MAIN OR Gynecology Surgical OP/Extended Care Elective No Panel 1 Procedure LRB Anes Op Region Wound Class Comments SACROSPINOUS LIGAMENT FIXATION N/A General Perin eum Clean Contaminated-II ANTERIOR POSTERIOR REPAIR WI TH ENTEROCELE & CYSTOCELE & RECTOCELE N/A General Vagina Clean Contaminated-II COLPOPERINEORRHAPHY N/A General Perineum Clean Contaminated-II FOREIGN BODY REMOVAL N/A General Vagina Jennifer n Contaminated-II Surgeon Surgeon Role Service Panel Gaby Ceballos MD Primary Gynecology [address] [facility] [employer] AUSTYN REYNOLDS 11/03/16; /CPT 50204, 01453, 91922, 90975, 87292 documented in this encounter Social History Tobacco [...] Sign Reading Time Taken Comments Blood Pressure 145/74 12/20/2016 7:10 AM CDT Pulse 78 12/20/2016 7:10 AM CDT Temperature 36.1 ??C (97 ??F) 12/20/2016 7:10 AM CDT Respiratory Rate 14 12/20/2016 7:10 AM CDT Oxygen Saturation 97% 12/20/2016 7:10 AM CDT Inhaled Oxygen Concentration - - [...] 75 y.o. Gender Female Date of 1940 [facility] [id number] Attending Physician Gaby Ceballos, * Discharging Physician Martha Lyon MD PCP Angelica Frankel MD Admit Date 12/20/2016 Discharge Date Length of Stay LOS: 0 days Procedures performed: Procedure(s) (LRB): SACROSPINOUS LIGAMENT FIXATION (N/A) ANTERIOR POSTERIOR REPAIR WITH ENTEROCELE & CYSTOCELE & RECTOCELE (N/A) COLPOPERINEORRHAPHY (N/A) FOREIGN BODY REMOVAL (N/A) Hospital Course: Maria A Patel is a 75 y.o. female who was admitted to [facility] on 12/20/2016 and underwent reconstructive surgery [...] 7:46 AM CDT GYNECOLOGIC AND RECONSTRUCTIVE SURGERY, [facility] Gaby Ceballos M.D. Karla Lorenzo M.D. [address] [place] [address] Exchange: [employer] POST OPERATIVE INSTRUCTIONS 1. During [...] note were not included. > [address] [place] [address] FAX: [phone] PATIENT: Maria A Patel DATE OF : [...] Cancer SOCIAL HISTORY (Detailed) Preferred language is Italian. MARITAL STATUS/FAMILY/SOCIAL SUPPORT Currently . Smoking status: [...] Genitourinary * Perineum - attenuated. Vagina - [id number]. Cervix - surgically absent. Uterus - surgically [...] of Surgery: 12/20/2016 SURGEON Gaby Ceballos MD CREAM DIPPER PREOPERATIVE DIAGNOSIS Post-hysterectomy vaginal vault prolapse, enterocele, [...] discharge planning. Shyann Rucker RN, BSN Nurse Optometrist Assistant 22009 * Care Plan - Hilda Drew RN [...] REMOVAL 12/20/2016 8:30 AM CDT Case Notes [facility] [employer] RODOLFO 11/03/16; /CPT 01646, 38458, 16948, 68146, 15428 COLPOPERINEORRHAPHY 12/20/2016 8 :30 AM CDT Case Notes [facility] [employer] 11/03/16; /CPT 89874, 85605, 17127, 72470, 39018 ANTERIOR POSTERIOR REPAIR 2016 8:30 AM CDT Case Notes [facility] [employer] 11/03/16; /CPT 33028, 26826, 66528, 21772, 95752 SACROSPINOUS LIGAMENT FIXATION 12/20/2016 8:30 AM CDT Case Notes [facility] [employer] [place] 11/03/16; /CPT 37033, 83433, 51253, 66686, 27390 VERIFICATION BLOOD GROUP Stat 017 7:55 AM CDT Folic acid deficiency (non anemic) documented in this encounter Results * PATHOLOGY (12/20/2016 10:22 AM CDT) CASE REPORT Surgical Pathology Report ? Case: [id number] ? Authorizing Provider: ??Gaby Ceballos MD Collected: ? 12/20/2016 10:22 AM ? Ordering Location: ? [facility] ?Received: ?12/20/2016 12:19 PM ? Operating Room ? Pathologist: ? Kasie Adame MD ? Specimen: ?Vagina, vaginal foreign body ? 12/21/2016 5:26 PM CDT [facility] FINAL DIAGNOSIS Vagina, excision: - Fibroadipose tissue with foreign body giant cell reaction to polarizable foreign material. - No evidence of malignancy. 12/21/2016 5:26 PM CDT [facility] IMEN DESCRIPTION Vaginal foreign body. 12/21/2016 5:26 PM [facility] OPERATIVE PROCEDURE Sacrospinous ligament fixation, bladder suspension sling insertion, catheter suprapubic insertion, anterior posterior repair with enterocele and cystocele and rectocele, colpoperineorrhaphy, foreign body removal. 12/21/2016 5:26 PM [facility] CLINICAL DIAGNOSIS Not provided (prolapse, status post laparoscopic hysterectomy and laparoscopic Alvarez per Epic). 12/21/2016 5:26 PM [facility] GROSS DESCRIPTION Received in a single container [...] or plastic, white to bob material. Two account retention representative sections are submitted labeled A1. The remaining tissue and foreign body are returned to their original container and saved. Gross photographs were taken prior to sectioning. ALG/saba 12/21/2016 5:26 PM [facility] MICROSCOPIC DESCRIPTION The slides are labeled [id number] and Maria A Patel. Sections of the soft tissue attached to the foreign material received shows benign fibroadipose tissue with foreign body giant cell reaction to polarizable foreign material. No evidence of malignancy is identified. 12/21/2016 5:26 PM [facility] COMMENT Special stain and/or immunohistochemical results are interpreted with controls that demonstrate appropriate staining reactions. Note on use of immunocytochemistry reagents: This test was developed and its performance characteristic determined by [facility], Department of Laboratory Medicine. It has not [...] WF, WB and WH are performed by [address], [address]. All other case types are performed by [facility] [address] [facility] [address]. 12/21/2016 5:[address] [facility] Tissue SPECIMEN FROM VAGINA / Unknown 12/20/2016 10:22 AM CDT 12/20/2016 12:19 PM CDT Gaby Ceballos MD PATHOLOGY/CYTOL OGY ORDERABLES Performing Organization Address [facility]/ZIP Co de Phone Number [facility] CLIA# [id number] [facility] [address] * VERIFICATION BLOOD GROUP (12/20/2016 7:55 AM CDT) ABO GROUP O 12/20/2016 7:[address] [facility] RH (D) TYPE Positive 12/20/2016 7:[address] [facility] Blood Venipuncture / Unknown 12/20/2016 7:55 AM CDT 12/20/2016 8:02 AM CDT Judit Peck MD BLOOD BANK MANI DAY Performing Organization Address City/[facility]/ZIP Co de Phone Number [facility] TEXbase [facility] CLIA# [id number] [facility] [place] [address] documented in this encounter Visit Diagnoses Not on filedocumented in this encounter Administered Medications Inactive Administered Medications - up to 3 most recent administrations Medication Order MAR Action Action Date Dose Rate Site bupivacaine-EPINEPHrine (SENSORCAINE-EPINEPHRIN E) 0.25 %-1:200,000 injection INTRA-PROCEDURE PRN, Starting on Sun12/20/16 at 1038, Until Sun12/20/16 at 1146, Routine, Intra-op Given 12/20/2016 10:38 AM CDT 39 mL Operative Site ceFAZolin (ANCEF) 2,000 mg in dextrose [...] CONTINUOUS, Starting on Sun12/20/16 at 1300, Until Sun12/21/16 at 1242, Routine New Bag 12/20/2016 8:52 PM CDT 125 m L/hr New Bag 12/20/2016 1:06 PM CDT 125 mL/hr lactated Ringers solution IV, at 125 mL/hr, POST-PROCEDURE CONTINUOUS, Starting on Sun12/20/16 at 0730, Until Sun12/21/16 at 1242, Routine, PACU metoclopramide HCl (REGLAN) [...] Given 12/20/2016 8:52 PM CDT 10 mg sodium chloride 0.9 % irrigation solution INTRA-PROCEDURE PRN, Starting on Sun12/20/16 at 1038, Until Sun12/20/16 at 1146, Routine, Intra-op Given 12/20/2016 10:38 AM CDT 1,000 mL Operative Site documented in this encounter Active and Recently [...] on Sun12/20/16 at 1700, Last dose on Kathya 12/21/16 at 0100, Routine, Antibiotic Indication: Surgical prophylaxis 1704 (New Bag - Provider: Hilda Drew RN)1734 (Stopped - Provider: Hilda Drew RN) 0056 (New Bag - Provider: Martha Peterson, JOHN)0126 (Stopped - Provider: Martha Peterson, JOHN) ceFAZolin (ANCEF) IVPB 2,000 mg (COMPLETED) 2,000 mg, IV, PRE-PROCEDURE ONCE, 1 dose, Starting on Sun12/20/16 at 0723, Until Sun12/20/16 at 0933, Routine, Pre-op, Antibiotic Indication: Surgical prophylaxis 0933 (Given - Provider: Marina Black CRNA) docusate sodium (COLACE) capsule 100 mg 100 mg, Oral, TWO TIMES DAILY, First dose on Sun12/20/16 at 1300, Until Discontinued, Routine 1300 (Not Given - Provider: Carol Saunders RN - Reason: Patient condition)205 (Given - Provider: Martha Peterson RN) 0803 (Given - Provider: Hilda Drew RN) metoclopramide HCl (REGLAN) tablet 10 mg 10 mg, Oral, FOUR TIMES DAILY BEFORE MEALS AND AT BEDTIME, First dose on Sun12/20/16 at 1630, Until Discontinued, Routine 1703 (Given - Provider: Hilda Drew RN)205 (Given - Provider: Martha Peterson, JOHN) 0802 (Given - Provider: Hilda Drew RN) ondansetron (ZOFRAN) 4 mg/2 mL injection 4 mg 4 mg, IV, EVERY 6 HOURS, 4 doses, First dose on Sun12/20/16 at 1300, Last dose on Sun12/21/16 at 0600, Routine 1449 (Given - Provider: [...] Saunders RN) 0802 (Given - Provider: Hilda Drew RN) scopolamine (TRANSDERM-SCOP) 1 mg over 3 days transdermal patch 1.5 mg 1.5 mg, Transdermal, EVERY 72 HOURS, First dose on Sun12/20/16 at 2100, Until Discontinued, Routine 2250 (Applied - Provider: Martha Peterson RN - Comment: left ear) 1042 (Due: Removed [...] Saunders RN)2051 (New Bag - Provider: Martha Peterson, RN) lactated Ringers solution IV, at 125 [...] Routine 1313 (Given - Provider: Carol Saunders RN)2052 (Given - Provider: Martha Peterson, JOHN) 0803 (Given - Provider: Hilda Drew RN) lactated Ringers solution (CANCELED) INTRA-PROCEDURE CONTINUOUS PRN, Starting on Sun12/20/16 at 0743, Until Sun12/20/16 at 1150, Routine, Anesthesia Intra-op 0743 (Canceled Entry - Provider: Marina Black CRNA)0751 (New Bag - Provider: Cherelle Delong, JOHN)0911 (Continue from Pre-Op - Provider: Marina Black [...] Mild, Routine 1445 (Given - Provider: Carol Saunders, JOHN) 0706 (Given - Provider: Melida Pimentel RN) sodium chloride 0.9 % irrigation solution (CANCELED) INTRA-PROCEDURE PRN, Starting on Sun12/20/16 at 1038, Until Sun12/20/16 at 1146, Routine, Intra-op 1038 (Given - Provider: Gaby Ceballos MD - Comment: PRN irrigation on field) documented in this encounter Care Teams Box Closing Machine Operator Relationship Specialty Start Date End Date Angelica Frankel MD [address] [place] [address] Rd [address] [address] PCP - General Internal Medicine 08/11/11 documented as of this encounter
--- OUTSIDE RECORDS SUMMARY | 2024-03-15 10:19 | XMS_ITS | Encounter Summary ---
Author Organization [facility] Address [facility] [place] [address] Care Team Providers Care Dental Laboratory Manager Name Role Phone Angelica Frankel MD Primary Care Provider [phone] Encounter Details Date Type Department Care Team (Latest Contact Info) Description 11/09/2022 Travel Social History Tobacco Use Types Packs/Day Years Used Date Smoking Tobacco: Never Assessed Sex and Gender Information Value Date Recorded Sex Assigned at Not on file Gender Identity Not on file Sexual Orientation Not on file documented as of this encounter Plan of Treatment Not on file documented as of this encounter Visit Diagnoses Not on filedocumented in this encounter Care Teams Dental Laboratory Manager Relationship Specialty Start Date End Date Angelica Frankel MD [address] [place] [address] [address] [place] [address] PCP - General 10/10/16 documented as of this encounter
--- OUTSIDE RECORDS SUMMARY | 2024-03-15 10:19 | XMS_ITS | Encounter Summary ---
Author Organization [facility] Address [address] [place] [address] Care Team Providers Care Application Helper Name Role Phone Angelica Frankel MD Primary Care Provider [phone] Reason for Visit * Auth/Cert (Routine) - Closed Specialty Diagnoses / Procedures Referred By Contac t Referred To Contact Gastroenterology Diagnoses COLON/SCREENING/FM HX COLON CA Procedures COLONOSCOPY [address] [place] [address] Referral ID Status Reason Start Date Expiration Date Visits Re quested Visits Authorized [id number] Closed 1 1 Encounter Details Date Type Department Care Team (Latest Contact Info) Description 10/09/2011 10:37 AM CDT - 10/09/2011 1:18 PM CDT Hospital Encounter [address] [place] [id number] Cristopher Quezada MD NO ADDRESS ON FILE Discharge Disposition: Home or Self Care Social [...] Sign Reading Time Taken Comments Blood Pressure 159/76 10/09/2011 12:50 PM CDT Pulse 68 10/09/2011 12:50 PM CDT Temperature 36.8 ??C (98.2 ??F) 10/09/2011 12:36 PM C DT Respiratory Rate 15 10/09/2011 12:50 PM CDT Oxygen Saturation 98% 10/09/2011 12:50 PM CDT Inhaled Oxygen Concentration - - Weight [...] or soreness at the IV site Office [phone] [facility] [phone] [facility] [phone] See report for additional recommendations. * Attachments The following attachments cannot be sent through Care Everywhere. * HEMORRHOIDS: AFTER YOUR VISIT (NAMIBIAN) * DIVERTICULOSIS: AFTER YOUR VISIT (NAMIBIAN) * HIGH-FIBER DIET: AFTER YOUR VISIT (NAMIBIAN) documented in this encounter Medications at Time [...] Cristopher Quezada MD documented in this encounter OR Notes * OR Anesthesia - Stl Scanning, Him - 10/09/2011 9:16 PM CDT * OR [...] STATUS, NEURO, ACTIVITY: Consciousness: fully awake (10/09/11 1120) [2=fully awake, 1=arousable on calling, 0=not responding] Activity: able to move 4 extremities voluntarily or on command (10/09/11 1120) [2=able to move 4 extremities voluntarily or on command, 1=able to move 2 extremities voluntarily or on command, 0=unable to move extremities voluntarily or on command] Ambulation: able to stand up and walk straight, on ordered bedrest, or performing at patient's prior level of function (10/09/11 1120) [2=able to stand up and walk straight, on ordered bedrest, or performing at patient's prior level of function, 1=vertigo when erect, 0=dizziness when supine] TEMPERATURE: Temp: 98.2 ??F (36.8 ??C) (10/09/11 1236) PAIN: Presence of Pain: denies pain/discomfort (10/09/11 1127) Pain: pain free (10/09/11 112) [2=pain free, 1=pain handled by oral medication, [...] dry and clean or not applicable (10/09/11 112) [2=dry and clean or not aplicable, 1=wet, marked and not increasing, 0=growing area of wetness] [facility] Modified Rosibel Score: Score: 20 (10/09/11 112) COMMENTS: No apparent Anesthesia related complications Hari Mcduffie MD 10/09/2011 12:47 PM * OR Anesthesia - Hari Mcduffie MD - 10/09/2011 11:37 AM CDT GI Lab Pre-Anesthesia Evaluation - Long Form 10/09/2011 11:37 AM Name: Maria A Peralta Age: 70 y.o. Sex: female CSN: [id number] Procedure: Procedure(s): COLONOSCOPY Surgeons/Assistants: Surgeon(s) and Role: [...] Notes * Scanned Form - Stl Scanning, [facility] - 10/20/2011 9:21 PM CDT Electronically signed by Interface, [facility] Stl Traveler Changer Incoming at 10/20/2011 9:21 PM CDT * Scanned Form - Stl Scanning, [facility] - 10/09/2011 9:16 PM CDT Electronically signed by Interface, [facility] Stl Traveler Changer Incoming at 10/09/2011 9:16 PM CDT * Patient Instructions - Stl Scanning, [facility] - 10/09/2011 9:16 PM CDT Electronically signed by Interface, [facility] Stl Traveler Changer Incoming at 10/09/2011 9:16 PM CDT documented [...] RN) documented in this encounter Care Teams Application Helper Relationship Specialty Start Date End Date Angelica Frankel MD [address] [address] PCP - General Internal Medicine 08/11/11 documented as of this encounter
--- OUTSIDE RECORDS SUMMARY | 2024-03-15 10:19 | XMS_ITS | Encounter Summary ---
Author Organization [facility] Address [address] [place] [address] Care Team Providers Care Superintendent Water And Sewer Systems Name Role Phone Angelica Frankel MD Primary Care Provider [phone] Encounter Details Date Type Department Care Team (Late st Contact Info) Description 11/29/2016 11:00 AM CDT - 11/29/2016 11:59 PM CDT Hospital Encounter [facility] [address] [place] [address] Gaby Ceballos MD [address] [place], [place] [id number] Discharge Disposition: Home or Self Care Social [...] Sign Reading Time Taken Comments Blood Pressure 144/82 11/29/2016 12:43 PM CDT Pulse 75 11/29/2016 12:43 PM CDT Temperature - - Respiratory Rate - - Oxygen Saturation 97% 11/29/2016 12: 43 PM CDT Inhaled Oxygen Concentration - - Weight 79.7 kg (175 lb 12.8 oz) 017 12:43 PM CDT Height 160 cm (5' 3 ) 11/29/2016 12:43 PM CDT Body Mass Index 31.14 11/29/2016 12:43 PM CDT documented in this encounter Medications at Time [...] day . documented as of this encounter OR Notes * Laura-OP - Cynthia Hargrove RN - 11/29/2016 4:22 PM CDT Patient instructed to use Dial antibacterial soap to clean the surgical site while in the shower the night before surgery and repeat same instructions the morning of surgery. Written detailed instructions reviewed with patient. Patient verbalized understanding of shower and soaps. Pt aware not to shave the surgical site. * Laura-OP - Cynthia Hargrove RN - 11/29/2016 4:[address] Ceballos office notified via voicemail that patient has not been cleared for anesthesia. Patient to see PCP on Sunday12/04/16 and we will follow up on letter of clearance after appt. * OR Anesthesia - Rodri Henley FNP - 11/29/2016 12:39 PM CDT .Pre-Procedure Anesthesiology Consultation and Evaluation (PACE) Service 11/29/2016 12:43 PM Name: Maria A Peralta Age: 75 y.o. Sex: female [facility]: [id number] Procedure: SACROSPINOUS LIGAMENT FIXATION Dr. Ceballos Allergies Allergen Reactions ??? Prednisone Rash (Not in a hospital admission) Current Outpatient Prescriptions Medication Sig Dispense Refill ??? Saccharomyces boulardii (FLORASTOR) 250 mg Capsule Take 500 mg by mouth. ??? OMEGA-3S/DHA/EPA/FISH OIL/D3 (VITAMIN-D + OMEGA-3 ORAL) Take by mouth daily. ??? aspirin (ECOTRIN EC) 81 mg Tablet, Delayed Release (E.C.) Take 81 mg by mouth daily. ??? multivitamin (DAILY-LYNSEY) Oral tablet Take 1 [...] by mouth late in the day . No current facility-administered medications for this encounter. Advised patient to take the following medications AM DOS with a small sip of water: none Advised patient: No asa, nsaids, or supplements one week prior to surgery per surgeons request. There are no active problems to display for this patient. Past Medical History: Diagnosis Date ??? Anxiety ??? Arthritis ??? Chronic UTI ??? Depression ??? History of complications due to general anesthesia slow to wake up after colonoscopy 15 years ago ??? Hyperlipidemia ??? Motion sickness ??? MVP (mitral valve prolapse) ??? Spinal stenosis ??? Vaginal prolapse ??? Vertigo Past Surgical History: Procedure Laterality Date ??? HX BLADDER SUSPENSION ??? HX MASTOID SURGERY ??? HX SPINAL SURGERY ??? WA COLONOSCOPY FLX DX W/COLLJ SPEC WHEN PFRMD 10/09/2011 COLONOSCOPY performed by Cristopher Quezada MD at [facility] Social History Substance Use Topics ??? Smoking status: Never Smoker ??? Smokeless tobacco: Never Used ??? Alcohol use Yes Comment: rarely Family History Problem Relation Age of Onset ??? Colon Cancer Mother Previous Anesthesia Problems/Concerns: History of motion sickness. Slow to wake in th past with GA. History of PONV: No Review of Systems Cardiovascular: elevated lipids, Hx of MVP negative for chest pain, chest pressure/discomfort, exertional chest pressure/discomfort, palpitations, shortness of breath/dyspnea 1 flight of stairs without SOB/CP Respiratory: negative History Smoking Status ??? Never Smoker Smokeless Tobacco ??? Never Used Snoring: Yes, CHIKA: Maybe Gastrointestinal: negative. Genitourinary: Vaginal prolapse. Musculoskeletal: positive for arthralgias and stiff joints, back pain. Neurological: Pain of RLE. Endocrine: negative Hematology/Oncology: Negative PHYSICAL EXAM BP (!) 144/82 Pulse 75 Ht 5' 3 (1.6 m) Wt 79.7 kg (175 lb 12.8 oz) SpO2 97% BMI 31.14 kg/m2 Weight: Weight: 79.7 kg (175 lb 12.8 oz) (11/29/16 1243) Height: Ht Readings from Last 1 Encounters: 11/29/16 5' 3 (1.6 m) BMI: Body mass index is 31.14 kg/(m^2). General Appearance: Alert, oriented, no acute distress Airway: normal range of motion; Airway Class: II (soft palate, uvula, fauces visible); Special Considerations None Dentition: good, missing teeth and caps/crowns Lungs: clear to auscultation bilaterally, normal respiratory effort Heart: regular rate and rhythm, S1, S2 normal, no murmur, click, rub or gallop Neuro: alert, oriented x 3, no defects noted in general exam. Extremities: moves all extremities equally LABS No results found for: WBC, MANUALWBC, HGB, HGBPOC, HCT, HCTPOC, PLT, MCV No results found for: NA, K, CL, CO2, CA, BUN, CREAT, GLUCOSE, ANIONGAP, BCRATIO No results found for: INR, PT, PROTIMEPOC No results found for: HCGURPOC, HCGQUALUR, HCGQUAL, HCGQUANT, HCGINTACT EK11/29/2016 EKG not indicated today Other Studies/Considerations: None Risks/Alternatives discussed. Questions solicited and answered. Yes Postop pain management discussed: yes; Recommendations:None ATTESTATIONS: Patient screened for tobacco use and identified as a Non-User of tobacco. I obtained, updated or reviewed the patient's current medications including dosage, frequency, and route of administration. This information was obtained directly from the patient or cordage sales representative or caregiver or another available healthcare resource and updated in [facility] EMR. REPORT AND NECESSARY FOLLOW-UP History and physical performed in [place], tests (ECG and/or blood work) reviewed. Abnormal Results Found: no Further Testing or Evaluation Required: no Final [place] Center Review: May proceed with procedure/surgery: no, awaiting office note from PCP. Ptscheduled to see him 12/04/16 for clearance. Stop bang score is 2. Rodri Lillianadominick Kale DIRECTOR DESIGN-C 12/07/16 Addendum 12/04/16 Office note from PCP She is cleared for surgery Final [place] Center Review: May proceed with procedure/surgery: YES ALVARADO Morrow 12/07/2016 2:07 PM * Laura-OP - Cynthia Hargrove, RN - 11/29/2016 12:22 PM CDT Patient scheduled for appt with PCP on 12/04/16 or pre op clearance. Patient states she had EKG doneat PCP office in past few months. Release faxed to Dr. Angelica Frankel. documented in this encounter Plan of Treatment Not on file documented as of this encounter Procedures Procedure Name Priority Date/Time Associated Diagnosis Comments CBC WITHOUT DIFFERENTIAL Stat 11/29/2016 12:11 PM CDT TYPE AND SCREEN Routine 11/29/2016 12:11 PM CDT documented in this encounter Results * CBC WITHOUT DIFFERENTIAL (11/29/2016 12:11 PM CDT) WBC 5.6 4.0 - 9.8 K/uL 11/29/2016 1:59 PM CDT [facility] RBC 4.67 3.90 - 4.90 M/uL 11/29/2016 1:59 PM CDT [employer] LABORATORY SERVICES - [facility] HEMOGLOBIN 13.7 11.8 - 14.8 g/dL 11/29/2016 1:59 PM CDT [facility] - [facility] HEMATOCRIT 43.4 35.5 - 44.0 % 11/29/2016 1:59 PM CDT [facility] - [facility] MCV 92.9 82.0 - 99.0 fL 11/29/2016 1:59 PM CDT [employer] [facility] - [facility] MCH 29.3 27.2 - 32.6 pg 11/29/2016 1:59 PM CDT [employer] [facility] - [facility] MCHC 31.6 31.5 - 35.5 g/dL 11/29/2016 1:59 PM CDT [employer] [facility] - [facility] PLATELETS 216 140 - 350 K/uL 11/29/2016 1:59 PM CDT [employer] [facility] - [facility] MPV 11.5 9.3 - 12.4 fL 11/29/2016 1:59 PM CDT [employer] [facility] - [facility] RDW 12.8 11.5 - 14.5 % 11/29/2016 1:59 PM CDT [employer] [facility] - [facility] RDW-STDEV 43.4 37.1 - 48.7 fL 11/29/2016 1:59 PM CDT [employer] [facility] - [facility] Blood Venipuncture / Unknown 11/29/2016 12:11 PM CDT 11/29/2016 1:47 PM CDT Isiah Tovar MD HEMATOLOGY ORDERABLE S [facility] - [facility] CLIA# [id number] [address] [place] [address] * TYPE AND SCREEN (11/29/2016 12:11 PM CDT) ANTIBODY SCREEN Negative 11/29/2016 6:22 PM CDT [employer] [facility] -- [facility] ABO GROUP O 11/29/2016 6:22 PM CDT [employer] [facility] -- [facility]) TYPE Positive 11/29/2016 6:22 PM CDT [facility] -- [facility] Blood Venipuncture / Unknown 11/29/2016 12:11 PM CDT 11/29/2016 1:47 PM CDT Gaby Ceballos MD BLOOD BANK MANI [facility] Organization Address City/State/ZIP Co de Phone Number [facility] -- [facility] CLIA# [id number] [address] [place] [address] documented in this encounter Visit Diagnoses Not on filedocumented in this encounter Care Teams Superintendent Water And Sewer Systems Relationship Specialty Start Date End Date Angelica Frankel MD [address] [place] [address] [address] [address] PCP - General Internal Medicine 08/11/11 documented as of this encounter
--- OUTSIDE RECORDS SUMMARY | 2024-03-15 10:19 | XMS_ITS | CONTINUITY OF CARE DOCUMENT ---
Author Name booker teresajhoana Address Unknown Organization [facility] Address [address] [place] [address] [address] [place] [address] Phone [phone] Care Team Providers Care Harnessmaker Name Role Phone Ford Zarate MD Unavailable [phone] Bj Jimenez DO Unavailable [phone] RIGO GONZALEZ MD Unavailable PROBLEMS Condition Status Date Provider Notes Screening for cardiovascular condition active Holli Ward INSURANCE PROVIDERS Payer name Policy type / Coverage type [place] [employer] party [place] Medicare [id number] TREATMENT PLAN Date Name CT, Coronary Calcium Score HISTORY OF PROCEDURES Procedure Date Procedure Name Provider Procedure Notes S tatus CT- Coronary CA score Siddharth Shah MD completed
--- OUTSIDE RECORDS SUMMARY | 2024-03-15 10:20 | XMS_ITS | Encounter Summary ---
Author Organization [facility] Healthcare Address [address] [place] [address] Care Team Providers Care Crisis Mental Health Therapist Name Role Phone Phan Garvin MD Primary Care Provider [phone] Phan Garvin MD Unavailable [phone] Siddharth Jennings MD Unavailable [phone] Encounter Details Date Type Department Care Team (Late st Contact Info) Description 01/08/2024 Telephone [facility] Medical Group Cardiology [address] [place] [address] Siddharth Jennings MD [address] [place] [address] Social History Tobacco Use Types Packs/Day Years Used Date Smoking Tobacco: Never Smokeless Tobacco: Never Alcohol Use Standard Drinks/Week Comments Yes 0 (1 standard drink = 0.6 oz pur e alcohol) [facility] Utilities Answer Date Recorded In the past 12 months has [employer] electric, gas, oil, or water company threatened to shut off services in your home? No 07/20/2023 Social Connection and Isolat ion Panel [NHANES] Answer Date Recorded In a typical week, how many times do you talk on the phone with family, friends, or neighbors? More than three times a week 07/20/2023 How often do you get togethe r with friends or relatives? More than three times a week 07/20/2023 How often do you attend chur ch or moravian services? Never 07/20/2023 Do you belong to any clubs o r organizations such as congregational groups, unions, fraternal or athletic groups, or school groups? No 07/20/2023 How often do you attend meet ings of the clubs or organizations you belong to? Never 07/20/2023 Are you , , di vorced, , never , or living with a partner? 07/20/2023 AUDIT-C Answer Date Recorded Q1: How often do you have a drink containing alcohol? Never 04/11/2023 Q2: How many drinks containi ng alcohol do you have on a typical day when you are drinking? Patient does not drink Q3: How often do you have si x or more drinks on one occasion? Never 04/11/2023 Overall Financial Resource Strain (CARDIA) Answe r Date Recorded How hard is it for you to pa y for the very basics like food, housing, medical care, and heating? Not hard at all 07/20/2023 Hunger Vital Sign Answer Date Recorded Within the past 12 months, y ou worried that your food would run out before you got the money to buy more. Never true 07/20/19 24 Within the past 12 months, t he food you bought just didn't last and you didn't have money to get more. Never true 07/20/2023 PRAPARE - Transportation Answer Date Re corded In the past 12 months, has l ack of transportation kept you from medical appointments or from getting medications? No 07/10 In the past 12 months, has l ack of transportation kept you from meetings, work, or from getting things needed for daily living? No 07/20/2023 Housing Stability Vital Sign Answer Fredrick e Recorded In the last 12 months, was t here a time when you were not able to pay the mortgage or rent on time? No 07/20/2023 In the last 12 months, how many places have you lived? 1 07/20/2023 In the last 12 months, was t here a time when you did not have a steady place to sleep or slept in a long-term (including now)? No 07/20/2023 Personal Safety Answer Date Recorded Have you ever been in or are you currently in a harmful physical or emotional relationship or is someone making you feel afraid or unsafe? 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 Pt verbalizes understanding and advised to call back to pcp for an alternative. * Telephone Encounter - Payal Carrasquillo NP - 01/08/2024 3:50 PM CDT Because she is on sotalol, taking azithromycin is not advised due to the risk of QT prolongation. An alternative antibiotic should be considered. * Telephone Encounter - Lisha King RN - 01/08/2024 3:28 PM CDT Will forward to CT. Please advise. * Telephone Encounter - Tami Aaron - 01/08/2024 3:24 PM CDT Pt wanting to know if it is okay to take azithromycin. Please advise, thank you. Contact: documented in this encounter Plan of Treatment Not on file documented as of this encounter Visit Diagnoses Not on filedocumented in this encounter Care Teams Crisis Mental Health Therapist Relationship Specialty Start Date End Date Phan Garvin MD PCP - General Family Medicine 09/14/22 Phan Garvin MD Family Medicine 09/14/22 Siddharth Jennings MD [address] [address] Consulting Physician Cardiology 10/10/23 documented as of this encounter
--- OUTSIDE RECORDS SUMMARY | 2024-03-15 10:20 | XMS_ITS | Encounter Summary ---
Author Organization [facility] Healthcare Address [address] [place] [address] Care Team Providers Care Certified Prosthetist Vice President Name Role Phone Phan Garvin MD Primary Care Provider [phone] Phan Garvin MD Unavailable [phone] Siddharth Jennings MD Unavailable [phone] Reason for Visit * Reason Onset Date Comments Poss LAAO w/GT? - pt refusing 10/09/2023 Encounter Details Date Type Department Care Team (Late st Contact Info) Description 10/09/2023 Telephone [facility] Medical Group Cardiology [address] [place] [address] Horace Santoro MD [address] [facility] [address] [place] [address] Poss LAAO w/GT? - pt refusing Social History Tobacco Use Types Packs/Day Years Used Date Smoking Tobacco: Never Smokeless Tobacco: Never Alcohol Use Standard Drinks/Week Comments Yes 0 (1 standard drink = 0.6 oz pur e alcohol) [facility] Utilities Answer Date Recorded In the past 12 months has e electric, gas, oil, or water company threatened [...] often do you attend chur ch or confucianism services? Never 07/20/2023 Do you belong to any clubs o r organizations such as buddhism groups, unions, fraternal or athletic groups, or [...] place to sleep or slept in a custodial (including now)? No 07/20/2023 Personal Safety Answer Date Recorded Have you ever been in or are you currently in a harmful physical or emotional relationship or is someone making you feel afraid or unsafe? 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 Removed from referral list. * Telephone Encounter - Marielena Hallman RN - 10/15/2023 8:48 AM CDT Pt called & doesn't want to set up WM just yet. Keeping appt w/Dick for SDM discussion 1st. She's not leaning on it at present. Wanting to to try a different DOAC 1st. Will let me know what she has decided after having discussion w/compliance assistant. * Telephone Encounter - Marielena Hallman RN - 10/15/2023 8:29 AM CDT 2nd call to pt to discuss WM vs appt w/GT 1st. See she is seeing Dr Jennings on 10/18/23 for discussion as well. Will await what was said at time of that appt. I did send his office the WM referral packet for him to d/w pt when she comes in to see him. Also, looks like she will be leaving [facility] on 11/01/23. * Telephone Encounter - Marielena Hallman RN - 10/12/2023 9:21 AM CDT LMOM for pt to CB to see if she wants to see GT or just set up WM & FU protocols (all @ [facility]) * Telephone Encounter - Marielena Hallman RN - 10/10/2023 3:35 PM CDT They are fine w/letting pt choose. Also to note, Dr Jennings is an quick technician so he can't do SDM. Pt will need to see PCP for SDM prior to scheduling appt w/GT or WM. Will contact her for discussion soon. * Telephone Encounter - Marielena Hallman RN - 10/10/2023 3:28 PM CDT Have a note to Dr Jennings's RN Albina asking if pt needs seen 1st by GT or OK to go through w/justscheduling WM & FUs. Awaiting response. * Telephone Encounter - Marina Odell RDCS - 10/09/2023 7:26 PM CDT Received consult request from Dr. Jennings to schedule patient for Watchman evaluation. Chart to Marielena documented in this encounter Plan of Treatment Not on file documented as of this encounter Visit Diagnoses Not on filedocumented in this encounter Care Teams Certified Prosthetist Vice President Relationship Specialty Start Date End Date Phan Garvin MD PCP - General Family Medicine 09/14/22 Phan Garvin MD Family Medicine 09/14/22 Siddharth Jennings MD [address] [address] Consulting Physician Cardiology 10/10/23 documented as of this encounter
--- OUTSIDE RECORDS SUMMARY | 2024-03-15 10:20 | XMS_ITS | Encounter Summary ---
Author Organization [facility] Address [address] [place] [address] Phone Care Team Providers Care Electrical Power Engineer Name Role Phone Phan Garvin MD Primary Care Provider [phone] Phan Garvin MD Unavailable [phone] Siddharth Jennings MD Unavailable [phone] Reason for Referral * Diagnostic Imaging (Routine) - Closed Specialty Diagnoses / Procedures Referred By Contac t Referred To Contact Diagnoses Complicated UTI (urinary tract infection) Diverticulum of bladder History of pelvic surgery Recurrent UTI Procedures [place] Vaginogram Poncho Melgar MD [address] [place] [address] Phone: tel: fax: [address] [phone] Referral ID Status Reason Start Date Expiration Date Visits Re quested Visits Authorized [id number] Closed 10/25/2023 11/23/2024 1 1 Encounter Details Date Type Department Care Team (Late st Contact Info) Description 10/25/[address] [facility] Obstetrics and Gynecology [facility] 7th Floor [address] [place] [address] Maria Esther Brown, RN Social History Tobacco Use Types Packs/Day Years Used Date Smoking Tobacco: Never Smokeless Tobacco: Never Alcohol Use Standard Drinks/Week Comments Yes 0 (1 standard drink = 0.6 oz pur e alcohol) [facility] Utilities Answer Date Recorded In the past 12 months has th e electric, gas, oil, or water company [...] often do you attend chur ch or mandaen services? Never 07/20/2023 Do you belong to any clubs o r organizations such as christianity groups, unions, fraternal or athletic groups, or [...] place to sleep or slept in a nursing home (including now)? No 07/20/2023 Personal Safety Answer Date Recorded Have you ever been in or are you currently in a harmful physical or emotional relationship or is someone making you feel afraid or unsafe? 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 Provided telephone number for radiology. documented in this encounter Plan of Treatment Not on file documented as of this encounter Results * FL Vaginogram (10/31/2023 11:22 AM CDT) Anatomical Region Laterality Modality Body N/A Radio Fluoroscop y 10/31/2023 11:4 7 AM CDT Impressions 10/31/2023 11:51 AM CDT No vaginal fistula. Dictated by: Candie Balderas M.D. The radiology attending physician has personally reviewed this study, and had reviewed and/or edited this written report and agrees with it. Electronically signed by: Fox Gill M.D. Narrative 10/31/2023 11:51 AM CDT EXAMINATION: VAGINOGRAM HISTORY: 82-year-old woman with history of recurrent urinary tract infections evaluate for vaginal fistula TECHNIQUE: A 30 cc balloon Chavez catheter was placed in the vagina. Water soluble contrast material was injected with the patient in the lateral position. The attending radiologist, Fox Gill M.D., was present for the entirety of the procedure. FINDINGS: Donor Relations Associate radiographs are unremarkable. ??Normal filling of the vagina with contrast. A fistula was not identified identified. Procedure Note Fox Gill MD - 10/31/2023 EXAMINATION: VAGINOGRAM HISTORY: 82-year-old woman with history of recurrent urinary tract infections evaluate for vaginal fistula TECHNIQUE: A 30 cc balloon Chavez catheter was placed in the vagina. Water soluble contrast material was injected with the patient in the lateral position. The attending radiologist, Fox Gill M.D., was present for the entirety of the procedure. FINDINGS: Donor Relations Associate radiographs are unremarkable. Normal filling of the vagina with contrast. A fistula was not identified identified. IMPRESSION: No vaginal fistula. Dictated by: Candie Balderas M.D. The radiology attending physician has personally reviewed this study, and had reviewed and/or edited this written report and agrees with it. Electronically signed by: Fox Gill M.D. Poncho Melgar MD IMG FLUOROSCOPY PROCEDURES Final Result documented in this encounter Visit Diagnoses Diagnosis Complicated UTI (urinary tract infection)- Primary Diverticulum of bladder History of pelvic surgery Recurrent UTI Urinary tract infection, site not specified Complicated UTI (urinary tract infection) Diverticulum of bladder History of pelvic surgery Recurrent UTI Urinary tract infection, site not specified documented in this encounter Care Teams Electrical Power Engineer Relationship Specialty Start Date End Date Phan Garvin MD PCP - General Family Medicine 09/14/22 Phan Garvin MD Family Medicine 09/14/22 Siddharth Jennings MD [address] [facility] [address] [place] [address] Consulting Physician Cardiology 10/10/23 documented as of this encounter
--- OUTSIDE RECORDS SUMMARY | 2024-03-15 10:20 | XMS_ITS | Encounter Summary ---
Author Organization [facility] Address [address] [place] [address] Phone Care Team Providers Care Repair Technician Name Role Phone Phan Garvin MD Primary Care Provider [phone] Phan Garvin MD Unavailable [phone] Siddharth Jennings MD Unavailable [phone] Reason for Visit * Reason Onset Date Comments UACX result 11/23/2023 Encounter Details Date Type Department Care Team (Late st Contact Info) Description 11/23/2023 Telephone [facility] Obstetrics and Gynecology [facility] 7th Floor [address] [place] [address] Maria Esther Brown RN UACX result Social History Tobacco Use Types Packs/Day Years Used Date Smoking Tobacco: Never Smokeless Tobacco: Never Alcohol Use Standard Drinks/Week Comments Yes 0 (1 standard drink = 0.6 oz pur e alcohol) [facility] Utilities Answer Date Recorded In the past 12 months has [employer] electric, gas, oil, or water company threatened [...] often do you attend chur ch or protestant services? Never 07/20/2023 Do you belong to any clubs o r organizations such as yazdanism groups, unions, fraternal or athletic groups, or [...] place to sleep or slept in a snf (including now)? No 07/20/2023 Personal Safety Answer Date Recorded Have you ever been in or are you currently in a harmful physical or emotional relationship or is someone making you feel afraid or unsafe? 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 Reviewed UaCX result as contaminated and offered appt for cath specimen if symptomatic. Patient is in [place], [place] until Sunday and has been taking Cefdinir BID per MD in [place] whenshe had UTI. Denies symptoms at this time. Patient will contact office for cath specimen if symptoms return following d/c of Cefdinir. * Telephone Encounter - Maria Esther Brown RN - 11/23/2023 8:43 AM CDT LMTC * Telephone Encounter - Maria Esther Brown RN - 11/23/2023 8:36 AM CDT ----- Message from Poncho Melgar MD sent at 11/22/2023 4:20 PM CDT ----- Consider cath specimen. documented in this encounter Plan of Treatment Not on file documented as of this encounter Visit Diagnoses Not on filedocumented in this encounter Care Teams Repair Technician Relationship Specialty Start Date End Date Phan Garvin MD PCP - General Family Medicine 09/14/22 Phan Garvin MD Family Medicine 09/14/22 Siddharth Jennings MD [address] [facility] [address] [address] Consulting Physician Cardiology 10/10/23 documented as of this encounter
--- OUTSIDE RECORDS SUMMARY | 2024-03-15 10:20 | XMS_ITS | Encounter Summary ---
Author Organization [facility] Address [address] [place] [address] Care Team Providers Care Compliance Field Technician Name Role Phone Phan Garvin MD Primary Care Provider [phone] Phan Garvin MD Unavailable [phone] Siddharth Jennings MD Unavailable [phone] Encounter Details Date Type Department Care Team (Late st Contact Info) Description 10/10/2023 Telephone [facility] Medical Group Cardiology [address] [place] [address] Siddharth Jennings MD [address] [place] [address] Social History Tobacco Use Types Packs/Day Years Used Date Smoking Tobacco: Never Smokeless Tobacco: Never Alcohol Use Standard Drinks/Week Comments Yes 0 (1 standard drink = 0.6 oz pur e alcohol) [facility] Utilities Answer Date Recorded In the past 12 months has [employer] electric, gas, oil, or water company threatened [...] often do you attend chur ch or taoist services? 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 AFib, watchman questions. Appt 8.8 * Telephone Encounter - Tami Aaron - 10/12/2023 9:42 AM CDT Attempted to schedule hosp f/u. Pt will be going [facility] on 10/31 and is wanting to be seen before. [facility] or [facility] have no openings before that. Contact: * Telephone Encounter - Daniela Mendoza - 10/10/2023 4:22 PM CDT Lm for pt to call back to schedule 3-4 week hospital fu documented in this encounter Plan of Treatment Not on file documented as of this encounter Visit Diagnoses Not on filedocumented in this encounter Care Teams Compliance Field Technician Relationship Specialty Start Date End Date Phan Garvin MD PCP - General Family Medicine 09/14/22 Phan Garvin MD Family Medicine 09/14/22 Siddharth Jennings MD [address] [address] Consulting Physician Cardiology 10/10/23 documented as of this encounter
--- OUTSIDE RECORDS SUMMARY | 2024-03-15 10:20 | XMS_ITS | Encounter Summary ---
Author Organization [facility] Healthcare Address [address] [place] [address] Care Team Providers Care Apprentice Name Role Phone Phan Garvin MD Primary Care Provider [phone] Phan Garvin MD Unavailable [phone] Siddharth Jennings MD Unavailable [phone] Reason for Referral * Consultation (Routine) - Canceled Specialty Diagnoses / Procedures Referred By Contac t Referred To Contact Cardiology Diagnoses Paroxysmal atrial fibrillation (CMS/HCC) (HCC) Payal Carrasquillo NP [address] [place] [address] Phone: tel: fax: Judy Fabian MD [address] [address] Phone: tel: fax: Referral ID Status Reason Start Date Expiration Date Visits Requested Visits Authorized [id number] Canceled Specialty Services Required 12/03/2023 01/01/2025 1 1 Question Answer Please select the performing region: [facility] [[id number]] Please select the performing department: [facility] [[id number]] To provider: JUDY FABIAN [[id number]] # of visits: 1 Comments New pt referral for afib, pt would like to discuss ablation. Please call pt for an appt. Thank you! Reason for Visit * Reason Onset Date Comments EP referral 12/03/2023 Encounter Details Date Type Department Care Team (Late st Contact Info) Description 12/03/2023 Telephone [facility] Medical [facility] Cardiology [address] [place] [id number] Siddharth Jennings MD [address] [place] [id number] EP referral Social History Tobacco Use Types Packs/Day Years Used Date Smoking Tobacco: Never Smokeless Tobacco: Never Alcohol Use Standard Drinks/Week Comments Yes 0 (1 standard drink = 0.6 oz pur e alcohol) [facility] Utilities Answer Date Recorded In the [...] often do you attend chur ch or scientology services? 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 NET STRINGER * Telephone Encounter - Carol Darnell RN - 02/18/2024 12:45 PM FISH NET STRINGER CT-FYI Spoke with pt regarding her message, offered her a referral to [facility] or [facility] and she is unsure asshe doesn't drive to [place] herself and her dgt works. Pt did not want a new referral sent at this time and would like to discuss with MJF at her appt next week. NET STRINGER * Telephone Encounter - Catrachita Sage - 02/18/2024 11:53 AM CST Patient is needing a new referral for an EP due to Dr. Fabian leaving his practice. Please advise. Thank you. Contact [phone] NET STRINGER * Telephone Encounter - Payal Carrasquillo NP - 12/03/2023 12:37 PM CDT Great, thank you * Telephone Encounter - Carol Darnell RN - 12/03/2023 11:[address]-FY[facility] Referral sent to Dr. Fabian's office. Called pt and LM on VM informing her of referral sent and provided her office phone number. Advised her to call office if she hasn't heard from them in a week or two to schedule appt. * Telephone Encounter - Tami Aaron - 12/03/2023 11:02 AM CDT Pt requesting referral to an neck fitter be sent to Dr. Fabian at [facility]. Contact: documented in this encounter Plan of Treatment Scheduled Referrals Name Type Priority Associated Diagnoses Orde r Schedule Ambulatory referral to Cardiology Outpatient Referral Routine Paroxysmal atrial fibrillation (CMS/HCC) (HCC) Expected: 12/10/2023 (Approximate), Expires: 12/02/2024 documented as of this encounter Visit Diagnoses Diagnosis Paroxysmal atrial fibrillation (CMS/HCC) (HCC)- Primary Atrial fibrillation documented in this encounter Care Teams Apprentice Relationship Specialty Start Date End Date Phan Garvin MD PCP - General Family Medicine 09/14/22 Phan Garvin MD Family Medicine 09/14/22 Siddharth Jennings MD [address] [place] [address] Consulting Physician Cardiology 10/10/23 documented as of this encounter
--- OUTSIDE RECORDS SUMMARY | 2024-03-15 10:20 | XMS_ITS | Encounter Summary ---
Author Organization [facility] Healthcare Address [address] [place] [address] Care Team Providers Care Telehealth Nurse Name Role Phone Phan Garvin MD Primary Care Provider [phone] Phan Garvin MD Unavailable [phone] Siddharth Jennings MD Unavailable [phone] Reason for Visit * Reason Comments Atrial Fibrillation Hospital Follow Up Encounter Details Date Type Department Care Team (Late st Contact Info) Description 10/18/2023 10:45 AM CDT Office Visit [facility] Medical Group Cardiology [address] [place] [address] Siddharth Jennings MD [address] [place] [address] Paroxysmal atrial fibrillation (CMS/HCC) (HCC) (Primary Dx) Social History Tobacco Use Types Packs/Day Years Used Date Smoking Tobacco: Never Smokeless Tobacco: Never Alcohol Use Standard Drinks/Week Comments Yes 0 (1 standard drink = 0.6 oz pur e alcohol) [facility] Utilities Answer Date Recorded In the past 12 months has [employer], gas, oil, or water company threatened to [...] often do you attend chur ch or jewish services? 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 Not on file Not on file Not on file documented as of this encounter Last Filed Vital Signs Vital Sign Reading Time Taken Comments Blood Pressure 132/80 10/18/2023 10:49 AM CDT Pulse 65 10/18/2023 10:49 AM CDT Temperature - - Respiratory Rate - - Oxygen Saturation 97% 10/18/2023 10: 49 AM CDT Inhaled Oxygen Concentration - - Weight 73.4 kg (161 lb 14.4 oz) 024 10:49 AM CDT Height 160 cm (5' 3 ) 10/18/2023 10:49 AM CDT Body Mass Index 28.68 10/18/2023 10:49 AM CDT documented in this encounter Ordered Prescriptions Prescription Sig Dispense Quantity Refills Last Filled Start Date End Date rivaroxaban (XARELTO) 20 mg tablet Take 1 tablet (20 mg total) by mouth daily 30 tablet 5 10/18/2023 documented in this encounter Progress Notes * Siddharth Jennings MD - 10/18/2023 10:45 AM CDT [facility] FOLLOW UP 10/18/2023 Maria A Peralta is a 82 y.o. female who presents for follow up of atrial fibrillation. This lizz patient that I saw in consultation at [facility] in February of 2022 when she came in withsymptoms of chest pain and had AFib with RVR. She was treated with a combination of metoprolol and apixaban and was discharged for outpatient follow-up. She called the office shortly after the discharge complaining of gross hematuria that resulted in the decision to discontinue systemic anticoagulation. The patient saw the nurse practitioner in follow-up in March of 2022. Prior to that appointment she had a nuclear stress test done as an outpatient which was negative for ischemia showing an ejection fraction of 74%. Echocardiogram in the hospital demonstrated some left ventricular hypertrophy with normal systolic function. Despite several evaluations by urologists no specific explanation for this was able to be determined. She has been taking metoprolol and was maintaining sinus rhythm.In February of 2023 she had a symptomatic recurrence of atrial fibrillation. Her medication was then advanced to sotalol. She presents today for short interval follow-up after recent hospitalization with a recurrence of her atrial fibrillation. She was at [facility] end of September of 2023 who was admitted with palpitations and chest pain was back in atrial fibrillation. She received a dose of intravenous diltiazemand converted back to sinus rhythm. It looks like metoprolol was added to her regimen. She came to the office today to have another discussion about her AFib management as well as systemic anticoagulation. We had yet another long discussion about the management of atrial fibrillation and the purpose of anticoagulation. She was again asking questions about why she can not take aspirin for this. Wediscussed this in detail just a couple of months ago. At the end of this conversation she told me that she does not wish to consider a left atrial appendage occlusion procedure because she is fearfulof any invasive procedures being done. She would like to try another anticoagulant and I recommended we are willing to give Xarelto a try. I told her that if she has minor urinary bleeding this may have to be tolerated if he is going to take an anticoagulant. REVIEW OF SYSTEMS General ROS: negative for - chills, fatigue, fever, malaise, night sweats, weight gain or weight loss Psychological ROS: negative for - anxiety, depression, memory difficulties or sleep disturbances Ophthalmic ROS: negative for - blurry vision, decreased vision, loss of vision or scotomata ENT ROS: negative for - epistaxis, headaches, hearing change, nasal congestion, nasal discharge, sore throat, vertigo or visual changes Hematological and Lymphatic ROS: negative for - bleeding problems, blood clots, bruising, fatigue or weight loss Endocrine ROS: negative for - hot flashes, palpitations, polydipsia/polyuria or unexpected weight changes Respiratory ROS: negative for - cough, hemoptysis, orthopnea, shortness of breath, tachypnea or wheezing Cardiovascular ROS: negative for - chest pain, dyspnea on exertion, edema, irregular heartbeat, loss of consciousness, murmur, orthopnea, palpitations, paroxysmal nocturnal dyspnea, rapid heart rate or shortness of breath Gastrointestinal ROS: negative for - abdominal pain, appetite loss, blood in stools, constipation, diarrhea, gas/bloating, heartburn, hematemesis, melena or nausea/vomiting Genito-Urinary ROS: negative for - dysuria, erectile dysfunction or hematuria Musculoskeletal ROS: negative for - joint pain, muscle pain or muscular weakness Dermatological ROS: negative for dry skin, eczema, pruritus and rash HOME MEDICATIONS Current Outpatient Medications: ascorbic acid (VITAMIN C) 500 mg tablet,chewable, Take 1 tablet/chew tab (500 mg total) by mouth every morning, Disp: , Rfl: aspirin 81 mg enteric coated tablet, Take 1 tablet (81 mg total) by mouth daily, Disp: , Rfl: cholecalciferol (VITAMIN D-3) 2000 unit capsule, Take 1 capsule (2,000 Units total) by mouth every morning, Disp: , Rfl: cranberry 400 mg capsule, Take 800 mg by mouth every morning, Disp: , Rfl: cyclobenzaprine (FLEXERIL) 5 mg tablet, Take 1 tablet (5 mg total) by mouth 3 (three) times a day, Disp: 90 tablet, Rfl: 0 dicyclomine (BENTYL) 10 mg capsule, , Disp: , Rfl: estradioL (ESTRACE) 0.01 % (0.1 mg/gram) vaginal cream, Insert 2 g into the vagina 2 (two) times a week Mon and Fri, Disp: , Rfl: HYDROcodone-acetaminophen (NORCO) 5-325 mg per tablet, Take 1 tablet by mouth every 4 (four) hours as needed (moderate pain), Disp: 12 tablet, Rfl: 0 levothyroxine (SYNTHROID) 25 mcg tablet, Take 1 tablet (25 mcg total) by mouth every morning, Disp:, Rfl: magnesium gluconate 200 mg tablet, 1 tablet (200 mg total), Disp: , Rfl: methenamine (HIPREX) 1 gram tablet, TAKE 1 TABLET BY MOUTH 2 TIMES A DAY WITH MEALS., Disp: 180 tablet, Rfl: 1 metoprolol XL (TOPROL-XL) 25 mg extended release tablet, Take 1 tablet (25 mg total) by mouth everymorning, Disp: , Rfl: oxyCODONE (ROXICODONE) 5 mg immediate release tablet, , Disp: , Rfl: phenazopyridine (PYRIDIUM) 100 mg tablet, Take 1 tablet (100 mg total) by mouth 3 (three) times a day as needed for urinary pain, Disp: 90 tablet, Rfl: 1 sotaloL (BETAPACE) 80 mg tablet, TAKE 1 TABLET BY MOUTH EVERY 12 HOURS, Disp: 180 tablet, Rfl: 1 vit C,A-Rd-fuera-lutein-zeaxan (PreserVision AREDS-2) 250-90-40-1 mg capsule, Take 1 capsule by mouth 2 (two) times a day, Disp: , Rfl: Vowst capsule, , Disp: , Rfl: zinc 50 mg tablet, Take 50 mg by mouth every morning, Disp: , Rfl: rosuvastatin (CRESTOR) 10 mg tablet, , Disp: , Rfl: LABS AND OTHER DIAGNOSTIC TESTS No results found for: CHOL No results found for: HDL No results found for: LDLCALC No results found for: TRIG No results found for: CHOLHDL Lab Results Component Value Date WBC 5.7 07/21/2023 HGB 10.6 (L) 07/21/2023 HCT 33.2 (L) 07/21/2023 MCV 92.5 07/21/2023 No lab exists for component: LABALBU PHYSICAL EXAM Vitals BP 132/80 (BP Location: Left arm, Patient Position: Sitting) Pulse 65 Ht 160 cm (5' 3 ) Wt 73.4 kg (161 lb 14.4 oz) LMP (LMP Unknown) SpO2 97% BMI 28.68 kg/m?? Physical Examination: General appearance - alert, well appearing, and in no distress, oriented to person, place, and time and acyanotic, in no respiratory distress Mental status - affect appropriate to mood Eyes - extraocular eye movements intact, sclera anicteric, no pallor Ears - external earsappear normal, hearing grossly normal bilaterally Nose - normal and patent, no erythema or discharge Mouth - mucous membranes moist, pharynx appears normal, dental hygiene good and tongue normal Neck - supple, no significant neck masses, carotids upstroke normal bilaterally, no bruits, no JVD Chest - clear to auscultation, no wheezes, rales or rhonchi, symmetric air entry, no tachypnea, retractions or cyanosis Heart - normal rate, regular rhythm, normal S1, S2, no murmurs, rubs, clicks or gallops, no JVD Abdomen - soft, nontender, nondistended, no masses or organomegaly bowel sounds normal Neurological - alert, oriented, normal speech, no focal findings or movement disorder noted Musculoskeletal - no joint tenderness, deformity or swelling, no muscular tenderness noted Extremities - peripheral pulses normal, no pedal edema, no clubbing or cyanosis Skin - normal coloration and turgor, no rashes, no suspicious skin lesions noted ASSESSMENT Paroxysmal atrial fibrillation PLAN/RECOMMENDATIONS Continue regimen of sotalol with metoprolol as she seems to be maintaining sinus rhythm at least for the last couple of weeks Start Xarelto 20 mg daily Follow-up in February at her previously scheduled appointment Siddharth Jennings MD documented in this encounter Plan of Treatment Not on file documented as of this encounter Visit Diagnoses Diagnosis Paroxysmal atrial fibrillation (CMS/HCC) (HCC)- Primary Atrial fibrillation documented in this encounter Historical Medications * This list may reflect changes made after this encounter. metoprolol XL (TOPROL-XL) 25 mg extended release tablet Take 1 tablet (25 mg total) by mouth every morning 10/06/2023 11/27/2023 aspirin 81 mg enteric coated tablet Take 1 tablet (81 mg total) by mouth daily 11/27/2023 added in this encounter Care Teams Telehealth Nurse Relationship Specialty Start Date End Date Phan Garvin MD PCP - General Family Medicine 09/14/22 Phan Garvin MD Family Medicine 09/14/22 Siddharth Jennings MD [address] [facility] [address] [place] [id number] Consulting Physician Cardiology 10/10/23 documented as of this encounter
--- OUTSIDE RECORDS SUMMARY | 2024-03-15 10:20 | XMS_ITS | Encounter Summary ---
Author Organization [facility] Address [address] [place] [address] Phone Care Team Providers Care Funding Analyst Name Role Phone Phan Garvin MD Primary Care Provider [phone] Phan Garvin MD Unavailable [phone] Siddharth Jennings MD Unavailable [phone] Encounter Details Date Type Department Care Team (Late st Contact Info) Description 11/02/2023 Telephone [facility] Obstetrics and Gynecology [address] [facility] [address] [place] [address] Maria Esther Brown RN Social History Tobacco Use Types Packs/Day Years Used Date Smoking Tobacco: Never Smokeless Tobacco: Never Alcohol Use Standard Drinks/Week Comments Yes 0 (1 standard drink = 0.6 oz pur e alcohol) [facility] Utilities Answer Date Recorded In the past 12 months has [employer], gas, oil, or water company threatened [...] week 07/20/2023 How often do you attend [facility] or episcopalian services? Never 07/20/2023 Do you belong to any clubs o r organizations such as jehovah's witness groups, unions, fraternal or athletic groups, or [...] place to sleep or slept in a senior care (including now)? No 07/20/2023 Personal Safety Answer Date Recorded Have you ever been in or are you currently in a harmful physical or emotional relationship or is someone making you feel afraid or unsafe? 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 Melgar's note below. Patient is taking methenamine BID & wouldlike to continue. * Telephone Encounter - Maria Esther Brown RN - 11/02/2023 8:58 AM CDT ----- Message from Poncho Melgar MD sent at 11/01/2023 6:18 PM CDT ----- No, I don't think so. May need to try continuous abx suppression. ----- Message ----- From: Araceli Anderson RN Sent: 10/31/2023 4:04 PM CDT To: Poncho Melgar MD; # She is aware of results and is asking if there are any other tests you recommend for finding the cause of her rUTIs? ----- Message ----- From: Poncho Melgar MD Sent: 10/31/2023 3:43 PM CDT To: [facility] Clinical Pool Please notify pt of negative vaginogram - no fistula. documented in this encounter Plan of Treatment Not on file documented as of this encounter Visit Diagnoses Not on filedocumented in this encounter Care Teams Funding Analyst Relationship Specialty Start Date End Date Phan Garvin MD PCP - General Family Medicine 09/14/22 Phan Garvin MD Family Medicine 09/14/22 Siddharth Jennings MD [address] [address] Consulting Physician Cardiology 10/10/23 documented as of this encounter
--- OUTSIDE RECORDS SUMMARY | 2024-03-15 10:20 | XMS_ITS | Encounter Summary ---
Author Organization [facility] Healthcare Address [address] [place] [address] Care Team Providers Care Self Pay Collector Name Role Phone Phan Garvin MD Primary Care Provider [phone] Phan Garvin MD Unavailable [phone] Siddharth Jennings MD Unavailable [phone] Reason for Referral * Diagnostic Imaging (Routine) - Closed Specialty Diagnoses / Procedures Referred By Contac t Referred To Contact Diagnoses Complicated UTI (urinary tract infection) Diverticulum of bladder History of pelvic surgery Recurrent UTI Procedures [place] Vaginogram Poncho Melgar MD [address] [place] [address] Phone: tel: fax: [address] [phone] Referral ID Status Reason Start Date Expiration Date Visits Re quested Visits Authorized [id number] Closed 10/25/2023 11/23/2024 1 1 Reason for Visit * Diagnostic Imaging (Routine) - Closed Specialty Diagnoses / Procedures Referred By Contac t Referred To Contact Diagnoses Complicated UTI (urinary tract infection) Diverticulum of bladder History of pelvic surgery Recurrent UTI Procedures [place] VaginoPoncho Gamino MD [address] [place] [address] Phone: tel: fax: [address] [phone] Referral ID Status Reason Start Date Expiration Date Visits Re quested Visits Authorized [id number] Closed 10/25/2023 11/23/2024 1 1 Encounter Details Date Type Department Care Team (Latest Contact Info) Description 10/31/2023 10:09 AM CDT - 10/31/2023 11:59 PM CDT Hospital Encounter [facility] [address] [place] [address] Complicated UTI (urinary tract infection); Diverticulum of bladder; History of pelvic surgery; Recurrent UTI Discharge Disposition: Discharge to home or self care Social History Tobacco Use Types Packs/Day Years Used Date Smoking Tobacco: Never Smokeless Tobacco: Never Alcohol Use Standard Drinks/Week Comments Yes 0 (1 standard drink = 0.6 oz pur e alcohol) [facility] Utilities Answer Date Recorded In the past 12 months has [employer], gas, oil, or water [employer] threatened to shut off services in your [...] 07/20/2023 How often do you attend chur or buddhist services? Never 07/20/2023 Do you belong to any clubs o r organizations such as anabaptist groups, unions, fraternal or athletic groups, or [...] No 07/20/2023 Housing Stability Vital Sign Answer Fredrikc e Recorded In the last 12 months, [...] place to sleep or slept in a fpc (including now)? No 07/20/2023 Personal Safety Answer Date Recorded Have you ever been in or are you currently in a harmful physical or emotional relationship or is someone making you feel afraid or unsafe? 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 file Not on file Not on file documented as of this encounter Medications at Time of Discharge ascorbic acid (VITAMIN C) 500 mg tablet,chewableIn dications:supplem ent Take 1 tablet/chew tab (500 mg total) by mouth every morning cholecalciferol (VITAMIN D-3) 2000 unit capsuleIndication s:Vitamin D Deficiency Take 1 capsule (2,000 Units total) by mouth every morning cranberry 400 mg capsuleIndication s:urinary health Take 800 mg by mouth every morning estradioL (ESTRACE) 0.01 % (0.1 mg/gram) vaginal creamIndications: Postmenopausal Urethral Atrophy Insert 2 g into the vagina 2 (two) times a week Mon and Fri 11/20/2022 levothyroxine (SYNTHROID) 25 mcg tabletIndications :hypothyroidism Take 1 tablet (25 mcg total) by mouth every morning 03/03/2022 methenamine (HIPREX) 1 gram tabletIndications :Recurrent UTI,Complicated UTI (urinary tract infection) TAKE 1 TABLET BY MOUTH 2 TIMES A DAY WITH MEALS. 180 tablet 1 08/31/2023 phenazopyridine (PYRIDIUM) 100 mg tabletIndications :Bladder pain Take 1 tablet (100 mg total) by mouth 3 (three) times a day as needed for urinary pain 90 tablet 1 07/26/2023 rivaroxaban (XARELTO) 20 mg tablet Take 1 tablet (20 mg total) by mouth daily 30 tablet 5 10/18/2023 rosuvastatin (CRESTOR) 10 mg tablet 09/24/2019 sotaloL (BETAPACE) 80 mg tablet TAKE 1 TABLET BY MOUTH EVERY 12 HOURS 180 tablet 1 09/27/2023 vit C,D-Dk-ohgwg-lute in-zeaxan (PreserVision AREDS-2) 250-90-40-1 mg capsuleIndication s:eye vitamin Take 1 capsule by mouth 2 (two) times a day Vowst capsule 05/29/2023 zinc 50 mg tabletIndications :supplement Take 50 mg by mouth every morning aspirin 81 mg enteric coated tablet Take 1 tablet (81 mg total) by mouth daily 11/27/2023 cyclobenzaprine (FLEXERIL) 5 mg tablet Take 1 tablet (5 mg total) by mouth 3 (three) times a day 90 tablet 07/23/2023 11/27/2023 dicyclomine (BENTYL) 10 mg capsule 05/06/2023 11/27/2023 HYDROcodone-aceta minophen (NORCO) 5-325 mg per tabletIndications :Pain Take 1 tablet by mouth every 4 (four) hours as needed (moderate pain) 12 tablet 07/23/2023 11/27/2023 magnesium gluconate 200 mg tabletIndications :hypomagnesemia 1 tablet (200 mg total) 11/27/2023 metoprolol XL (TOPROL-XL) 25 mg extended release tablet Take 1 tablet (25 mg total) by mouth every morning 10/06/2023 11/27/2023 oxyCODONE (ROXICODONE) 5 mg immediate release tablet 05/06/2023 11/27/2023 documented as of this encounter Discharge Disposition Disposition Code Departure Means Destination Discharge to home or self care documented in this encounter Plan of Treatment Not on file documented as of this encounter Procedures Procedure Name Priority Date/Time Associated Diagnosis Comments VAGINOGRAM Schedule Routine, Read Routine (OP Routine) 10/31/2023 11:22 AM CDT Complicated UTI (urinary tract infection) Diverticulum of bladder History of pelvic surgery Recurrent UTI documented in this encounter Results * [place] Vaginogram (10/31/2023 [...] for the entirety of the procedure. FINDINGS: Cable Swager radiographs are unremarkable. ??Normal filling of the [...] for the entirety of the procedure. FINDINGS: Cable Swager radiographs are unremarkable. Normal filling of the [...] Visit Diagnoses Diagnosis Complicated UTI (urinary tract infection) Diverticulum of bladder History of pelvic surgery Recurrent UTI Urinary tract infection, site not specified documented in this encounter Administered Medications Inactive Administered Medications - up to 3 most recent administrations Medication Order MAR Action Action Date Dose Rate Site iothalamate meglumine (CONRAY) 60 % injection 50 mL 50 mL, vaginal, Once in imaging, contrast, Starting on Sun10/31/23 at 1124, For 2 doses, Pre-Op/Floor Contrast Given 10/31/2023 11:03 AM CDT 50 mL Contrast Given 10/31/2023 11:00 AM CDT 50 mL documented in this encounter Care Teams Self Pay Collector Relationship Specialty Start Date End Date Phan Garvin MD PCP - General Family Medicine 09/14/22 Phan Garvin MD Family Medicine 09/14/22 Siddharth Jennings MD [address] [facility] [address] [place] [id number] Consulting Physician Cardiology 10/10/23 documented as of this encounter
--- OUTSIDE RECORDS SUMMARY | 2024-03-15 10:20 | XMS_ITS | Clinical Summary ---
Author Organization [place] [address] [address] Address [address] [place] [address] Care Team Providers Care Lithographic Proofer Apprentice Name Role Phone Phan Garvin MD Primary Care Provider [phone] Phan Garvin MD Unavailable [phone] Siddharth Jennings MD Unavailable [phone] Allergies Active Allergy Reactions Criticality Noted Date Comments Prednisone Rash Medium 11/29/2016 Medications rosuvastatin (CRESTOR) 10 mg tablet 0 Active levothyroxine (SYNTHROID) 25 mcg tabletIndicatio ns:hypothyroidi sm Take 1 tablet (25 mcg total) by mouth every morning 2 Active cholecalciferol (VITAMIN D-3) 2000 unit capsuleIndicati ons:Vitamin D Deficiency Take 1 capsule (2,000 Units total) by mouth every morning Active ascorbic acid (VITAMIN C) 500 mg tablet,chewable Indications:sup plement Take 1 tablet/chew tab (500 mg total) by mouth every morning Active zinc 50 mg tabletIndicatio ns:supplement Take 50 mg by mouth every morning Active cranberry 400 mg capsuleIndicati ons:urinary health Take 800 mg by mouth every morning Active vit C,H-Rv-qomcu-anthony tein-zeaxan (PreserVision AREDS-2) 250-90-40-1 mg capsuleIndicati ons:eye vitamin Take 1 capsule by mouth 2 (two) times a day Active estradioL (ESTRACE) 0.01 % (0.1 mg/gram) vaginal creamIndication s:Postmenopausa l Urethral Atrophy Insert 2 g into the vagina 2 (two) times a week Mon and Fri 3 Active Vowst capsule 4 Active phenazopyridine (PYRIDIUM) 100 mg tabletIndicatio ns:Bladder pain Take 1 tablet (100 mg total) by mouth 3 (three) times a day as needed for urinary pain 90 tablet 1 4 Active Additional Information Patient not taking.Reported on 03/13/2024 methenamine (HIPREX) 1 gram tabletIndicatio ns:Recurrent UTI,Complicated UTI (urinary tract infection) TAKE 1 TABLET BY MOUTH 2 TIMES A DAY WITH MEALS. 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 She was admitted to the hospital for abdominal pain October 01, CT scan shows colitis, C diff was positive. She is been treated with vancomycin in her diarrhea has improved significantly. -complete course of vancomycin as prescribed -C diff precautions discussed including washing hands with soap and water to prevent reinfection or spread of infection Diverticulitis 09/28/2022 Assessment & Plan (09/28/2022 11:54 AM CDT): She was diagnosed with uncomplicated rectosigmoid diverticulitis August 2022. She was treated with antibiotics. Denies any current abdominal pain. -discussed colonoscopy for further evaluation, patient deferred secondary due to her age and multiple medical comorbidities -we will order CT colonography as an alternative Anemia 09/28/2022 Assessment & Plan (09/28/2022 11:55 AM CDT): Labs from outside hospital show hemoglobin 11.2. Patient denies any overt GI bleeding. -we will order CBC -if patient remains anemic, we will consider upper GI series with small-bowel follow-through Paroxysmal atrial fibrillation ([facility]/HCC) 023 Encounters Date Type Department Care Team Description 03/14/2024 Telephone [facility] Obstetrics and Gynecology [address] [place] [address] 7th Floor [address] [place] [address] Araceli Anderson RN Test Results 03/14/2024 Orders Only [facility] Obstetrics and Gynecology [address] [place] [address] Floor [address] [place] [address] Mitra Malone NP 03/13/2024 11:23 AM COMMUNITY DEVELOPMENT WORKER - 03/13/2024 11:59 PM COMMUNITY DEVELOPMENT WORKER Hospital Encounter [facility] [address] [place] [address] Recurrent UTI; Gross hematuria Discharge Disposition: Discharge to home or self care 03/13/2024 9:40 AM COMMUNITY DEVELOPMENT WORKER Office Visit [facility] Obstetrics and Gynecology [address] [place] [address] 7th [address] [place] [phone] Mitra Malone NP Gross hematuria (Primary Dx); Recurrent UTI; Diverticulum of bladder; Incomplete bladder emptying; Vaginal atrophy 03/13/2024 Telephone [facility] Obstetrics and Gynecology [address] [facility] [address] [place] [address] Beth Santamaria RN 03/13/2024 Telephone [facility] Cardiology [address] [place] [phone] Siddharth Jennings MD 01/28/2024 Telephone [facility] Cardiology [address] [place] [address] Martín Fabian MD 01/08/2024 Telephone [facility] Cardiology [address] [place] [phone] Siddharth Jennings MD from Last 3 Months Surgical History Surgery Date Site/Laterality Comments BLADDER SURGERY 03/12/2017 - 03/11/2018 BACK SURGERY 03/12/1993 - 03/11/1994 COLONOSCOPY multiple BLADDER FULGURATION 04/11/2023 and bx Medical History Medical History Date Comments Hypercholesteremia Osteoporosis Atrial fibrillation (CMS/HCC) (HCC) 03/01/2022 Recurrent UTI Family History Medical History Relation Name Comments Heart disease Father Arthritis Mother Cancer Mother Anesthesia problems Neg Hx Relation Name Status Comments Father Mother Social History Tobacco Use Types Packs/Day Years Used Date Smoking Tobacco: Never Smokeless Tobacco: Never Tobacco Cessation:Counseling Given: Not Answered Alcohol Use Standard Drinks/Week Comments Yes 0 (1 standard drink = 0.6 oz pur e alcohol) [facility] Utilities Answer Date Recorded In the past 12 months has [employer] electric, gas, oil, or water company threatened [...] often do you attend chur ch or voodoo services? Never 07/20/2023 Do you belong to [...] place to sleep or slept in a residential (including now)? No 07/20/2023 Personal Safety Answer Date Recorded Have you ever been in or are you currently in a harmful physical or emotional relationship or is someone making you feel afraid or unsafe? 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 Not on file Not on file Obstetrics History Last Filed Vital Signs Vital Sign Reading Time Taken Comments Blood Pressure 144/83 03/13/2024 9:40 AM COMMUNITY DEVELOPMENT WORKER Pulse 62 11/27/2023 11:33 AM CDT Temperature 36.8 ??C (98.2 ??F) 07/23/2023 11:42 AM C DT Respiratory Rate 18 07/23/2023 11:42 AM CDT Oxygen Saturation 95% 11/27/2023 11:33 AM CDT Inhaled Oxygen Concentration - - Weight 73.9 kg (163 lb) 11/27/2023 11:33 AM CDT Height 160 cm (5' 3 ) 03/13/2024 9:40 AM COMMUNITY DEVELOPMENT WORKER Body Mass Index 28.87 11/27/2023 11:33 AM CDT Plan of Treatment Health Maintenance Due Date Last Done Comments Depression Screening 1940 Osteoporosis Screening-Bone Density Scan 1940 Hepatitis B Screening 1958 DTaP/Tdap/Td Vaccine (1 - Tdap) 01/08/2001 1 Well Visit 65+ 12/24/2003 Pneumococcal vaccine 65+ (2 of 2 - PPSV23 or PCV20) 08/02/2016 08/03/2015, 12/13/2014 Zoster Vaccine (2 of 2) 02/11/2019 12/17/2018 Influenza Vaccine (#1) 2023 , 12/17/2018, 11/28/2017, Additional history exists Fall Risk Assessment 07/22/2024 07/23/2023 Procedures Procedure Name Priority Date/Time Associated Diagnosis Comments URINE CULTURE Routine 03/13/2024 1:49 PM COMMUNITY DEVELOPMENT WORKER Recurrent UTI Gross hematuria URINALYSIS, MICROSCOPIC ONLY Routine 03/13/2024 11:23 AM COMMUNITY DEVELOPMENT WORKER Recurrent UTI Gross hematuria URINALYSIS AND REFLEX TO MICROSCOPIC Routine 03/13/2024 11:23 AM COMMUNITY DEVELOPMENT WORKER Recurrent UTI Gross hematuria POCT URINALYSIS DIPSTICK Routine 03/13/2024 10:25 AM COMMUNITY DEVELOPMENT WORKER Recurrent UTI Gross hematuria from Last 3 Months Results * (ABNORMAL) Urinalysis reflex to microscopic (03/13/2024 11:23 AM COMMUNITY DEVELOPMENT WORKER) Color, ur Yellow Yellow Clarity, ur Turbid(A) Clear [facility] Specific gravity, ur 1.012 1.003 - 1.030 [facility] pH, urine 7.0 [facility] Comment: Interpretive Data ? Urine pH is affected by diet, medications, systemic acid-base disturbances, and renal tubular function. ??pH may affect urinary stone formation. ??For example, urine pH below 6.0 may help reduce the tendency for calcium phosphate stones and pH greater than 6.0 may reduce the tendency for uric acid stone formation. Source: [facility] Current Interpretive Data was last revised on 2017 Protein, ur ql 1+(A) Negative [facility] Glucose, ur ql Negative Negative [facility] Ketones, ur Negative Negative [facility] Bilirubin, ur Negative Negative [facility] Blood, ur 3+(A) Negative [facility] Urobilinogen, ur <2.0 <2.0 mg/dL [facility] Nitrite, ur Negative Negative [facility] Leukocyte esterase, ur 3+(A) Negative [facility] UA reflex comment Reflex to microscopic UA will be performed. [facility] Urine 03/13/2024 11:2 3 AM COMMUNITY DEVELOPMENT WORKER 03/13/2024 1:51 PM COMMUNITY DEVELOPMENT WORKER Mitra Malone NP LAB URINE ORDERABLES Final Res ult [facility] Department [place] [address] * (ABNORMAL) Urinalysis, microscopic only (03/13/2024 11:23 AM COMMUNITY DEVELOPMENT WORKER) WBC, ur >50(A) 0 - 5 /HPF RBC, ur >50(A) 0 - 2 /HPF [facility] Bacteria, ur 1+(A) [facility] Urine 03/13/2024 11:2 3 AM COMMUNITY DEVELOPMENT WORKER 03/13/2024 1:51 PM COMMUNITY DEVELOPMENT WORKER Mitra Malone BALANCE WHEEL ARM BURNISHER LAB URINE ORDERABLES Final Res ult [facility] Department [place] [address] * (ABNORMAL) POCT urinalysis dipstick (03/13/2024 10:25 AM COMMUNITY DEVELOPMENT WORKER) Specific [place], POC 1.015 1.003 - 1.030 Blood, ur, POC Large(A) Negative pH, ur, POC 7.5 5.0 - 8.0 Protein, ur, POC 30.(A) Negative Leukocytes, ur, POC Moderate(A ) Negative Lot Number [id number] Urine 03/13/2024 10:2 5 AM COMMUNITY DEVELOPMENT WORKER Mitra Malone NP POINT OF CARE TEST ORDERABLES Final Result from Last 3 Months Insurance [facility] [place] [address] [place] [address] MEDICARE [employer] MEDICARE Advance Directives For more information, please contact: [phone] * LIMITED - No CPR (Latest Code Status on File) Date Activated Date Inactivated Comments 07/19/2023 10:56 PM 07/23/2023 5:51 PM Question Answer Comments Provide aggressive medical m anagement before a full cardiopulmonary arrest occurs. Use antibiotics, IV Fluids, and medical treatment unless specifically selected below: No intubation Care Teams Lithographic Proofer Apprentice Relationship Specialty Start Date End Date Phan Garvin MD PCP - General Family Medicine 09/14/22 Phan Garvin MD Family Medicine 09/14/22 Siddharth Jennings MD [address] [address] Consulting Physician Cardiology 10/10/23
--- OUTSIDE RECORDS SUMMARY | 2024-03-15 10:20 | XMS_ITS | Encounter Summary ---
Author Organization [facility] Healthcare Address [address] [place] [address] Care Team Providers Care Catalogue Clerk Name Role Phone Phan Garvin MD Primary Care Provider [phone] Phan Garvin MD Unavailable [phone] Siddharth Jennings MD Unavailable [phone] Encounter Details Date Type Department Care Team (Late st Contact Info) Description 10/09/2023 Orders Only [facility] Medical Group Cardiology [address] [place] [address] Luis Ricketts MD [address] [address] Social History Tobacco Use Types Packs/Day Years Used Date Smoking Tobacco: Never Smokeless Tobacco: Never Alcohol Use Standard Drinks/Week Comments Yes 0 (1 standard drink = 0.6 oz pur e alcohol) [facility] Utilities Answer Date Recorded In the past 12 months has [employer] electric, gas, oil, or water company threatened [...] often do you attend chur ch or sabianism services? Never 07/20/2023 Do you belong to [...] place to sleep or slept in a assisted (including now)? No 07/20/2023 Personal Safety Answer Date Recorded Have you ever been in or are you currently in a harmful physical or emotional relationship or is someone making you feel afraid or unsafe? 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 file Not on file Not on file documented as of this encounter Plan of Treatment Not on file documented as of this encounter Procedures Procedure Name Priority Date/Time Associated Diagnosis Comments CARDIOLOGY DOCUMENT SCAN Routine 024 10:23 AM CDT documented in this encounter Results * Cardiology Document Scan (10/05/2023 10:23 AM CDT) Anatomical Region Laterality Modality Other [facility] Jose Raul Ricketts MD CV CARDIAC SERVICES PRO CEDURES Final Result documented in this encounter Visit Diagnoses Not on filedocumented in this encounter Care Teams Catalogue Clerk Relationship Specialty Start Date End Date Phan Garvin MD PCP - General Family Medicine 09/14/22 Phan Garvin MD Family Medicine 09/14/22 Siddharth Jennings MD [address] [place] [address] Consulting Physician Cardiology 10/10/23 documented as of this encounter
--- OUTSIDE RECORDS SUMMARY | 2024-03-15 10:20 | XMS_ITS | Encounter Summary ---
Author Organization [facility] Address [address] [place] [address] Care Team Providers Care Md Psychiatry Name Role Phone Angelica Frankel MD Primary Care Provider [phone] Reason for Referral * Eval and Treat (Routine) - Closed Specialty Diagnoses / Procedures Referred By Contac t Referred To Contact Gastroenterology Diagnoses Family history of malignant neoplasm of gastrointestinal tract Cristopher Quezada MD NO ADDRESS ON FILE Cristopher Quezada MD NO ADDRESS ON FILE Referral ID Status Reason Start Date Expiration Date Visits Requested Visits Authorized [id number] Closed CRS To Schedule (STL) Performing Department To Schedule (STL) 08/11/2011 08/11/2012 1 1 Reason for Visit * Reason Onset Date Comments Procedure 08/11/2011 family hx colon ca Encounter Details Date Type Department Care Team (Late st Contact Info) Description 08/11/2011 Telephone [facility] Gastroenterology [place] [id number] [address] Cristopher Quezada MD NO ADDRESS ON FILE Procedure (family hx colon ca) Social History Tobacco Use Types Packs/Day Years Used Date Smoking Tobacco: Never Assessed Sex and Gender Information Value Date Recorded Sex Assigned at Not on file Gender Identity Not on file Sexual Orientation Not on file documented as of this encounter Miscellaneous Notes * Telephone Encounter - Natanael Pantoja - 08/11/2011 4:06 PM CDT Maria A Peralta is a 70 y.o. female 1940 Procedure: colonoscopy Family hx colon ca Provider: [facility] Date and Time: 09/25/2011 @11:00am Location: [facility] Prep Given: mirrafi Referring Provider: (enter Referring only if different from PCP) PCP: Angelica Frankel MDP Have you been seen by any of our Physicians? yes; [facility] Previous Endoscopy: yes, date: colons 2000.2003,2006 Do you have sleep apnea? no Ever had Rheumatic fever or endocarditis? no Do you have COPD? no Are you on Oxygen at home? no Have you been diagnosed with Esphageal Varicies? no Are you on Kidney Dialysis? no Have you ever had a staph infection called MRSA or VRE? no Do you have a history of any heart surgeries or current heart conditions? no Have you been diagnosed with CHF (Congestive Heart Failure) or CAD Coronary Artery Disease? no Do you have a pacemaker/Defib, HVR, Stent or Bypass? (AICD) no Cornonary artery disease/stents.CT < 6 months ago? no Have you had a Joint Replacement? no Do you have unstable Angina? no History of a stroke? no Seizure disorder? no Patients of Anticoagulants (Blood Thinners) no History of Coagulopathy (Blood Thinners) no Patients no PEG Placements no Does patient have personal or family history of Anesthesia difficulties or Endoscopic issues (bleeding etc) no History of difficult airway or personal/family history of malignant hypothermia no History of Cirrhosis? no Sickle Cell Disease (not just trait)? no Patients BMI (36 and above need review, NO patients with BMI >50 or <16 Weight: 160 Height: 5-3 BMI: 28.3 History Substance Use Topics ??? Smoking status: Not on file ??? Smokeless tobacco: Not on file ??? Alcohol Use: Not on file Allergies no known allergies Held Medications: none Current Outpatient Prescriptions Medication Sig Dispense Refill ??? SIMVASTATIN ORAL Take by mouth. documented in this encounter Plan of Treatment Scheduled Referrals Name Type Priority Associated Diagnoses Orde r Schedule AMB REFERRAL TO GASTROENTEROLOGY Outpatient Referral Routine Family history of malignant neoplasm of gastrointestinal tract Ordered: 08/11/2011 documented as of this encounter Visit Diagnoses Diagnosis Family history of malignant neoplasm of gastrointestinal tract- Primary documented in this encounter Care Teams Md Psychiatry Relationship Specialty Start Date End Date Angelica Frankel MD [address] [place] [address] [address] [address] PCP - General Internal Medicine 08/11/11 documented as of this encounter
--- OUTSIDE RECORDS SUMMARY | 2024-03-15 10:20 | XMS_ITS | Encounter Summary ---
Author Organization [facility] Address [address] [place] [address] Care Team Providers Care Concrete Floor Installer Name Role Phone Phan Garvin MD Primary Care Provider + [phone] Phan Garvin MD Unavailable [phone] Siddharth Jennings MD Unavailable [phone] Reason for Visit * Reason Comments Hospital Follow Up Encounter Details Date Type Department Care Team (Late st Contact Info) Description 11/27/2023 11:30 AM CDT Office Visit [facility] Cardiology [address] [place] [address] Payal Carrasquillo NP [address] [place] [address] Paroxysmal atrial fibrillation (CMS/HCC) (HCC) (Primary Dx); Chronic anticoagulation Social History Tobacco Use Types Packs/Day Years [...] often do you attend chur ch or muslim services? 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 Not on file Not on file Not on file documented as of this encounter Last Filed Vital Signs Vital Sign Reading Time Taken Comments Blood Pressure 132/70 11/27/2023 11:33 AM CDT Pulse 62 11/27/2023 11:33 AM CDT Temperature - - Respiratory Rate - - Oxygen Saturation 95% 11/27/2023 11:33 AM CDT Inhaled Oxygen Concentration - - Weight 73.9 kg (163 lb) 11/27/2023 11:33 AM CDT Height 160 cm (5' 3 ) 11/27/2023 11:33 AM CDT Body Mass Index 28.87 11/27/2023 11:33 AM CDT documented in this encounter Patient Instructions * Patient Instructions* Payal Carrasquillo NP - 11/27/2023 11:30 AM CDT We recommend referral to an plastic mould maker to give a recommendation on whether a different medication would control your Afib better, or if you would benefit from an ablation. [facility] doctors (at [facility]) include Dr. Lauren, Dr. Rik Carreno, Dr. Weinstein, Dr. Scott. [facility] doctor at [facility] is Dr. Martín Fabian. Call the office when you make a choice and we will send a referral. documented in this encounter Progress Notes * Payal Carrasquillo NP - 11/27/2023 11:30 AM CDT Images from the original note were not included. [facility] Cardiology [address] [place] [address] Date of Visit: 11/27/2023 Patient ID: Maria A Peralta [id number] Chief Complaint Patient presents with Hospital Follow Up Maria A Peralta is a 82 y.o. female who is an established patient of Dr. Jennings with PAF returning to the office for follow up after an ER visit for afib recurrence. History of Present Illness: Maria A Peralta is a 82 y.o. female who presents for follow up of atrial fibrillation. This lizz patient that I saw in consultation at [facility] in February of 2022 when she came [...] Her medication was then advanced to sotalol. 10/18/[address] Jennings: She presents today for short interval follow-up after recent hospitalization with a recurrence of her atrial fibrillation. She was at [facility] September of 2023 who was admitted with palpitations and chest pain was back in atrial fibrillation. She received a dose of intravenous diltiazem and converted back to sinus rhythm. It looks [...] she can not take aspirin for this. We discussed this in detail just a couple of months ago. At the end of this conversation she told me that she does not wish to consider a left atrial appendage occlusion procedure because she is fearful of any invasive procedures being done. She would like to try another anticoagulant and I recommended we are willing to give Xarelto a try. I told her that if she has minor urinary bleeding this may have to be tolerated if he is going to take an anticoagulant. 11/27/2023 office visit with TELEGRAPHIC TYPEWRITER INSTALLER: She was in [place] visiting family when she had an AFib recurrence. She went to the ER on 11/02/2023. She was given 2 doses of IV diltiazem but did not convert, then she was given IV amiodarone and IV Lopressor. She then underwent a cardioversion which was successful. She was discharged from the ER. She has not felt recurrence since then. She said she is experiencing anxiety about the possibility of AFib recurring repeatedly. When it happens she has a very uncomfortable pressure in the center of her chest. She had questions about further treatment options including ablation. She states she has stayed on Xarelto, had 3 days of seeing blood in her urine andthen it cleared. Medical History: Past Medical History: Diagnosis Date Atrial fibrillation (CMS/HCC) (HCC) 03/01/2022 Hypercholesteremia Osteoporosis Recurrent UTI Past Surgical History: Procedure Laterality Date BACK SURGERY 1993 BLADDER FULGURATION 04/11/2023 and bx BLADDER SURGERY 2018 COLONOSCOPY multiple Social History Tobacco Use Smoking Status Never Smokeless Tobacco Never Social History Tobacco Use Smoking status: Never Smokeless tobacco: Never Substance and Sexual Activity Drug use: Never Sexual activity: Defer Alcohol Use: Not At Risk (04/11/2023) AUDIT-C Frequency of Alcohol Consumption: Never Average Number of Drinks: Patient does not drink Frequency of Binge Drinking: Never Family History Problem Relation Age of Onset Arthritis Mother Cancer Mother Heart disease Father Anesthesia problems Neg Hx Review of Systems Constitutional: Negative for malaise/fatigue, weight gain and weight loss. Cardiovascular: Negative for chest pain, dyspnea on exertion, leg swelling, near-syncope, orthopnea, palpitations, paroxysmal nocturnal dyspnea and syncope. Respiratory: Negative for cough, shortness of breath and sleep disturbances due to breathing. Hematologic/Lymphatic: Negative for bleeding problem. Does not bruise/bleed easily. Vital Signs: BP 132/70 (BP Location: Left arm, Patient Position: Sitting) Pulse 62 Ht 160 cm (5' 3 ) Wt 73.9 kg (163 lb) LMP (LMP Unknown) SpO2 95% BMI 28.87 kg/m?? Physical Exam Constitutional: General: She is not in acute distress. Appearance: She is well-developed. Comments: Tearful during the visit HENT: Head: Normocephalic and atraumatic. Eyes: General: No scleral icterus. Conjunctiva/sclera: Conjunctivae normal. Neck: Vascular: No JVD. Trachea: No tracheal deviation. Cardiovascular: Rate and Rhythm: Normal rate and regular rhythm. Heart sounds: Normal heart sounds. No murmur heard. Comments: Rhythm regular, rate 60 bpm Pulmonary: Effort: Pulmonary effort is normal. No respiratory distress. Breath sounds: Normal breath sounds. Skin: General: Skin is warm and dry. Neurological: Mental Status: She is alert and oriented to person, place, and time. Psychiatric: Mood and Affect: Mood normal. Behavior: Behavior normal. Allergies Allergen Reactions Prednisone Rash Current Outpatient Medications: ascorbic acid (VITAMIN C) 500 mg tablet,chewable, Take 1 tablet/chew tab (500 mg total) by mouth every morning, Disp: , Rfl: cholecalciferol (VITAMIN D-3) 2000 unit capsule, Take 1 capsule (2,000 Units total) by mouth every morning, Disp: , Rfl: cranberry 400 mg capsule, Take 800 mg by mouth every morning, Disp: , Rfl: estradioL (ESTRACE) 0.01 % (0.1 mg/gram) vaginal cream, Insert 2 g into the vagina 2 (two) times a week Mon and Fri, Disp: , Rfl: levothyroxine (SYNTHROID) 25 mcg tablet, Take 1 tablet (25 mcg total) by mouth every morning, Disp:, Rfl: methenamine (HIPREX) 1 gram tablet, TAKE 1 TABLET BY MOUTH 2 TIMES A DAY WITH MEALS., Disp: 180 tablet, Rfl: 1 metoprolol XL (TOPROL-XL) 25 mg extended release tablet, Take 1 tablet (25 mg total) by mouth everymorning, Disp: , Rfl: rivaroxaban (XARELTO) 20 mg tablet, Take 1 tablet (20 mg total) by mouth daily, Disp: 30 tablet, Rfl: 5 sotaloL (BETAPACE) 80 mg tablet, TAKE 1 TABLET BY MOUTH EVERY 12 HOURS, Disp: 180 tablet, Rfl: 1 vit C,A-Ct-jhxps-lutein-zeaxan (PreserVision AREDS-2) 250-90-40-1 mg capsule, Take 1 capsule by mouth 2 (two) times a day, Disp: , Rfl: zinc 50 mg tablet, Take 50 mg by mouth every morning, Disp: , Rfl: phenazopyridine (PYRIDIUM) 100 mg tablet, Take 1 tablet (100 mg total) by mouth 3 (three) times a day as needed for urinary pain (Patient not taking: Reported on 11/27/2023), Disp: 90 tablet, Rfl: 1 rosuvastatin (CRESTOR) 10 mg tablet, , Disp: , Rfl: Vowst capsule, , Disp: , Rfl: Lab Results Component Value Date POTASSIUM 4.1 07/20/2023 BUNSER 20 07/20/2023 CREATININE 0.60 07/20/2023 Lab Results Component Value Date WBC 6.5 10/31/2023 HGB 13.2 10/31/2023 HCT 41.9 10/31/2023 MCV 95.7 10/31/2023 No results found for this or any previous visit (from the past 4 hour(s)). No results found for: POCCHOL , POCHDL , POCTRIG , POCLDL , POCNONHDL , POCCHLPL Assessment: Diagnoses and all orders for this visit: Paroxysmal atrial fibrillation (CMS/HCC) (HCC) (Primary) Plan/Recommendations: She has had another recurrence of AFib despite sotalol with metoprolol. Resting heart rate is 60 beats per minute and I do not want to advance her dose of metoprolol. I recommend consultation with anelectrophysiologist to discuss ongoing medical management versus ablation. She agrees to be referred but wants to take a little time to consider where she will go for referral. I instructed her to continue sotalol, metoprolol and Xarelto the same. If she has recurrence of AFib, she did take an additional metoprolol 25 mg and wait 1 hour see if she would go back to sinus rhythm before returning [facility] ER. Keep the February appt with Dr. Jennings the same. My total encounter time on 11/27/2023 was 40 minutes which was spent in the activities documented inthe note. This includes time spent prior to the visit and after the visit in direct care of the patient. This time does not include time spent in any separately reportable services. 11/27/2023 CONTRERAS Kelsey- Nurse Practitioner with [facility] Cardiology This note is dictated and transcribed using Take[employer] Direct Software. Harness And Bag Inspector variancesmay occur. Despite proofreading, typographical errors may occur. documented in this encounter Plan of Treatment Not on file documented as of this encounter Visit Diagnoses Diagnosis Paroxysmal atrial fibrillation (CMS/HCC) (HCC)- Primary Atrial fibrillation Chronic anticoagulation Encounter for long-term (current) use of anticoagulants documented in this encounter Discontinued Medications Medication Sig Discontinue Reason Start Date End Da te aspirin 81 mg enteric coated tablet Take 1 tablet (81 mg total) by mouth daily Alternate therapy 11/27/2023 cyclobenzaprine (FLEXERIL) 5 mg tablet Take 1 tablet (5 mg total) by mouth 3 (three) times a day Therapy completed 07/23/2023 11/27/2023 dicyclomine (BENTYL) 10 mg capsule Therapy completed 05/06/2023 11/27/2023 HYDROcodone-acetaminophe n (NORCO) 5-325 mg per tabletIndications:Pain Take 1 tablet by mouth every 4 (four) hours as needed (moderate pain) Therapy completed 07/23/2023 11/27/2023 magnesium gluconate 200 mg tabletIndications:hypoma gnesemia 1 tablet (200 mg total) Therapy completed 11/27/2023 oxyCODONE (ROXICODONE) 5 mg immediate release tablet Therapy completed 05/06/2023 11/27/2023 documented as of this encounter Care Teams Concrete Floor Installer Relationship Specialty Start Date End Date Phan Garvin MD PCP - General Family Medicine 09/14/22 Phan Garvin MD Family Medicine 09/14/22 Siddharth Jennings MD [address] [address] Consulting Physician Cardiology 10/10/23 documented as of this encounter
--- OUTSIDE RECORDS SUMMARY | 2024-03-15 10:20 | XMS_ITS | Encounter Summary ---
Author Organization [facility] Address [address] [place] [address] Care Team Providers Care Slate Picker Name Role Phone Phan Garvin MD Primary Care Provider [phone] Phan Garvin MD Unavailable [phone] Siddharth Jennings MD Unavailable [phone] Encounter Details Date Type Department Care Team (Late st Contact Info) Description 10/25/2023 Telephone [facility] Gastroenterology at [address] [place] [address] Rudy Hollis MD [address] [place] [address] [address] [place] [address] Social History Tobacco Use Types Packs/Day Years Used Date Smoking Tobacco: Never Smokeless Tobacco: Never Alcohol Use Standard Drinks/Week Comments Yes 0 (1 standard drink = 0.6 oz pur e alcohol) [facility] Utilities Answer Date Recorded In the past 12 months has [employer] electric, gas, oil, or water company threatened [...] often do you attend chur ch or evangelical services? Never 07/20/2023 Do you belong to any clubs o r organizations such as judaism groups, unions, fraternal or athletic groups, or [...] place to sleep or slept in a detention (including now)? No 07/20/2023 Personal Safety Answer Date Recorded Have you ever been in or are you currently in a harmful physical or emotional relationship or is someone making you feel afraid or unsafe? 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 Pt stated she would call back to schedule at a later time. * Telephone Encounter - Daniela Anne MA - 10/25/2023 3:27 PM CDT ----- Message from Rudy Hollis MD sent at 10/22/2023 1:13 PM CDT ----- Schedule flexible sigmoidoscopy, diagnosis rectal pain. ----- Message ----- From: Daniela Anne MA Sent: 10/22/2023 9:34 AM CDT To: Rudy Hollis MD This patient called today asking if she was able to have a procedure to check her rectum to make sure she does not have a fistula? The patient has a hx of mulitple UTIs and C diff. She was advised by Dr. Garvin to have a flex sigmoidoscopy (what I believe she was asking for). He thinks she may have a tear or puncture in her rectum that is causing E coli bacteria to go into her urethra causing the multiple UTIs. She would like to rule out a possible tear/puncture in her rectum. Please advise if it is okay to schedule the procedure or if we are able to help the pt? documented in this encounter Plan of Treatment Not on file documented as of this encounter Visit Diagnoses Not on filedocumented in this encounter Care Teams Slate Picker Relationship Specialty Start Date End Date Phan Garvin MD PCP - General Family Medicine 09/14/22 Phan Garvin MD Family Medicine 09/14/22 Siddharth Jennings MD [address] [address] Consulting Physician Cardiology 10/10/23 documented as of this encounter
--- OUTSIDE RECORDS SUMMARY | 2024-03-15 10:20 | XMS_ITS | Encounter Summary ---
Author Organization [facility] Address [address] [place] [address] Care Team Providers Care Finance Mgr Name Role Phone Phan Garvin MD Primary Care Provider [phone] Phan Garvin MD Unavailable [phone] Siddharth Jennings MD Unavailable [phone] Encounter Details Date Type Department Care Team (Late st Contact Info) Description 10/29/2023 Telephone [place] Tattoo Designer at [address] [place] [address] Konstantin Thompson MD [address] [place] [address] [address] [place] [address] Social History Tobacco Use Types Packs/Day Years Used Date Smoking Tobacco: Never Smokeless Tobacco: Never Alcohol Use Standard Drinks/Week Comments Yes 0 (1 standard drink = 0.6 oz pur e alcohol) [facility] Utilities Answer Date Recorded In the past 12 months has [employer] electric, gas, oil, or water company threatened [...] often do you attend chur ch or anabaptism services? 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 I called and lefta message for patient to contact the office. Patient is currently established with [facility], Dr. Kumar Jennings. Referral scanned to media. documented in this encounter Plan of Treatment Not on file documented as of this encounter Visit Diagnoses Not on filedocumented in this encounter Care Teams Finance Mgr Relationship Specialty Start Date End Date Phan Garvin MD PCP - General Family Medicine 09/14/22 Phan Garvin MD Family Medicine 09/14/22 Siddharth Jennings MD [address] [address] Consulting Physician Cardiology 10/10/23 documented as of this encounter
--- OUTSIDE RECORDS SUMMARY | 2024-03-15 10:20 | XMS_ITS | Encounter Summary ---
Author Organization [facility] Healthcare Address [address] [place] [address] Care Team Providers Care Block Paver Name Role Phone Phan Garvin MD Primary Care Provider [phone] Phan Garvin MD Unavailable [phone] Siddharth Jennings MD Unavailable [phone] Encounter Details Date Type Department Care Team (Late st Contact Info) Description 11/05/2023 Telephone [facility] Cardiology [address] [place] [address] Siddharth Jennings MD [address] [place] [address] Social History Tobacco Use Types Packs/Day Years Used Date Smoking Tobacco: Never Smokeless Tobacco: Never Alcohol Use Standard Drinks/Week Comments Yes 0 (1 standard drink = 0.6 oz pur e alcohol) [facility] Utilities Answer Date Recorded In the past 12 months has [employer] electric, gas, oil, or water company threatened [...] often do you attend chur ch or mormonism services? Never 07/20/2023 Do you belong to any clubs o r organizations such as spiritism groups, unions, fraternal or athletic groups, or [...] place to sleep or slept in a half-way (including now)? No 07/20/2023 Personal Safety Answer Date Recorded Have you ever been in or are you currently in a harmful physical or emotional relationship or is someone making you feel afraid or unsafe? 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 * Telephone Encounter - Tami Aaron - 11/05/2023 10:09 AM CDT Pt called to report she was at [facility] in [place], [place] on Wednesday 11/01 because she was in AFIB from 3-11pm. Contact: documented in this encounter Plan of Treatment Not on file documented as of this encounter Visit Diagnoses Not on filedocumented in this encounter Care Teams Block Paver Relationship Specialty Start Date End Date Phan Garvin MD PCP - General Family Medicine 09/14/22 Phan Garvin MD Family Medicine 09/14/22 Siddharth Jennings MD [address] [address] Consulting Physician Cardiology 10/10/23 documented as of this encounter
--- OUTSIDE RECORDS SUMMARY | 2024-03-15 10:20 | XMS_ITS | Encounter Summary ---
Author Organization [facility] Healthcare Address [address] [place] [address] Care Team Providers Care Drain Cleaner Name Role Phone Phan Garvin MD Primary Care Provider [phone] Phan Garvin MD Unavailable [phone] Siddharth Jennings MD Unavailable [phone] Encounter Details Date Type Department Care Team (Late st Contact Info) Description 10/19/2023 Telephone [facility] Gastroenterology at [address] [place] [address] Rudy Hollis MD [address] [place] [address] [address] [place] [address] Social History Tobacco Use Types Packs/Day Years Used Date Smoking Tobacco: Never Smokeless Tobacco: Never Alcohol Use Standard Drinks/Week Comments Yes 0 (1 standard drink = 0.6 oz pur e alcohol) [facility] Utilities Answer Date Recorded In the past 12 months has [employer] electric, gas, oil, or water company threatened [...] often do you attend chur ch or buddhist services? Never 07/20/2023 Do you belong to any clubs o r organizations such as faith groups, unions, fraternal or athletic groups, or [...] place to sleep or slept in a [place] health care facility (including now)? No 07/20/2023 Personal Safety Answer Date Recorded Have you ever been in or are you currently in a harmful physical or emotional relationship or is someone making you feel afraid or unsafe? 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 Please call her at [phone] documented in this encounter Plan of Treatment Not on file documented as of this encounter Visit Diagnoses Not on filedocumented in this encounter Care Teams Drain Cleaner Relationship Specialty Start Date End Date Phan Garvin MD PCP - General Family Medicine 09/14/22 Phan Garvin MD Family Medicine 09/14/22 Siddharth Jennings MD [address] [address] Consulting Physician Cardiology 10/10/23 documented as of this encounter
--- OUTSIDE RECORDS SUMMARY | 2024-03-15 10:20 | XMS_ITS | Referral Summary ---
Author Organization [facility] [address] Address [address] [place] [address] Care Team Providers Care School Adjustment Counselor Name Role Phone Phan Garvin MD Primary Care Provider [phone] Phan Garvin MD Unavailable [phone] Siddharth Jennings MD Unavailable [phone] Encounters Date Type Department Care Team Description 03/14/2024 Telephone [facility] Obstetrics and Gynecology [address] [facility] 7th Floor [address] [place] [address] Araceli Anderson, JOHN Test Results 03/14/2024 Orders Only [facility] Obstetrics and Gynecology [address] [facility] 7th Floor [address] [place] [address] Mitra Malone NP 03/13/2024 Telephone [facility] Obstetrics and Gynecology [address] [facility] [address] [place] [address] Beth Santamaria, JOHN 03/13/2024 11:23 AM SECURITY ASSURANCE ANALYST - 03/13/2024 11:59 PM SECURITY ASSURANCE ANALYST Hospital Encounter [facility] [address] [place] [address] Recurrent UTI; Gross hematuria Discharge Disposition: Discharge to home or self care 03/13/2024 Telephone [facility] Cardiology [address] [facility] [address] [place] [address] Siddharth Jennings MD 03/13/2024 9:40 AM SECURITY ASSURANCE ANALYST Office Visit [facility] Obstetrics and Gynecology [address] [facility] Health 7th Floor [address] [place] [address] Mitra Malone NP Gross hematuria (Primary Dx); Recurrent UTI; Diverticulum of bladder; Incomplete bladder emptying; Vaginal atrophy 01/28/2024 Telephone [facility] Medical [facility] Cardiology [address] [facility] [address] [place] [address] Martín Fabian MD 01/08/2024 Telephone [facility] Cardiology [address] [facility] [address] [place] [address] Siddharth Jennings MD from Last 3 Months Allergies Active Allergy Reactions Criticality Noted Date [...] mg by mouth every morning Active vit C,C-Sv-gxbma-anthony tein-zeaxan (PreserVision AREDS-2) 250-90-40-1 mg capsuleIndicati ons:eye [...] series with small-bowel follow-through Paroxysmal atrial fibrillation (CMS/HCC) 023 Social History Tobacco Use Types Packs/Day Years Used Date Smoking Tobacco: Never Smokeless Tobacco: Never Tobacco Cessation:Counseling Given: Not Answered Alcohol Use Standard Drinks/Week Comments Yes 0 (1 standard drink = 0.6 oz pur e alcohol) [facility] [employer] Answer Date Recorded In the past 12 months has [employer], [employer], oil, or water [employer] threatened to shut off services in your [...] often do you attend chur ch or yazdanism services? 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 file Not on file Not on file Last Filed Vital Signs Vital Sign Reading Time Taken Comments Blood Pressure 144/83 03/13/2024 9:40 AM SECURITY ASSURANCE ANALYST Pulse 62 11/27/2023 11:33 AM CDT Temperature 36.8 ??C (98.2 ??F) 07/23/2023 11:42 AM C DT Respiratory Rate 18 07/23/2023 11:42 AM CDT Oxygen Saturation 95% 11/27/2023 11:33 AM CDT Inhaled Oxygen Concentration - - Weight 73.9 kg (163 lb) 11/27/2023 11:33 AM CDT Height 160 cm (5' 3 ) 03/13/2024 9:40 AM SECURITY ASSURANCE ANALYST Body Mass Index 28.87 11/27/2023 11:33 AM CDT Plan of Treatment Not on file Procedures Procedure Name Priority Date/Time Associated Diagnosis Comments URINE CULTURE Routine 03/13/2024 1:49 PM SECURITY ASSURANCE ANALYST Recurrent UTI Gross hematuria URINALYSIS, MICROSCOPIC ONLY Routine 03/13/2024 11:23 AM SECURITY ASSURANCE ANALYST Recurrent UTI Gross hematuria URINALYSIS AND REFLEX TO MICROSCOPIC Routine 03/13/2024 11:23 AM SECURITY ASSURANCE ANALYST Recurrent UTI Gross hematuria POCT URINALYSIS DIPSTICK Routine 03/13/2024 10:25 AM SECURITY ASSURANCE ANALYST Recurrent UTI Gross hematuria from Last 3 Months Results * (ABNORMAL) Urinalysis reflex to microscopic (03/13/2024 11:23 AM SECURITY ASSURANCE ANALYST) Color, ur Yellow Yellow Clarity, ur Turbid(A) Clear [facility] Specific gravity, ur 1.012 1.003 - 1.030 [facility] pH, urine 7.0 [facility] Comment: Interpretive Data ? Urine pH is affected by diet, medications, systemic acid-base disturbances, and renal tubular function. ??pH may affect urinary stone formation. ??For example, urine pH below 6.0 may help reduce the tendency for calcium phosphate stones and pH greater than 6.0 may reduce the tendency for uric acid stone formation. Source: [facility] [employer] Current Interpretive Data was last revised on 2017 Protein, ur ql 1+(A) Negative [facility] Glucose, ur ql Negative Negative [facility] Ketones, ur Negative Negative [facility] Bilirubin, ur Negative Negative [facility] Blood, ur 3+(A) Negative [facility] Urobilinogen, ur <2.0 <2.0 mg/dL [facility] Nitrite, ur Negative Negative [facility] Leukocyte esterase, ur 3+(A) Negative [facility] UA reflex comment Reflex to microscopic UA will be performed. [facility] Urine 03/13/2024 11:2 3 AM SECURITY ASSURANCE ANALYST 03/13/2024 1:51 PM SECURITY ASSURANCE ANALYST Mitra Malone FAST FOOD DELIVERY DRIVER LAB URINE ORDERABLES Final Res ult Performing Organization Address [facility] de Phone Number [facility] Department [place] [address] * (ABNORMAL) Urinalysis, microscopic only (03/13/2024 11:23 AM SECURITY ASSURANCE ANALYST) WBC, ur >50(A) 0 - 5 /HPF RBC, ur >50(A) 0 - 2 /HPF [facility] Bacteria, ur 1+(A) [facility] Urine 03/13/2024 11:2 3 AM SECURITY ASSURANCE ANALYST 03/13/2024 1:51 PM SECURITY ASSURANCE ANALYST Mitra Malone FAST FOOD DELIVERY DRIVER LAB URINE ORDERABLES Final Res ult Performing Organization Address [facility] de Phone Number [facility] Department [place] [address] * (ABNORMAL) POCT urinalysis dipstick (03/13/2024 10:25 AM SECURITY ASSURANCE ANALYST) Specific [place], POC 1.015 1.003 - 1.030 Blood, ur, POC Large(A) Negative pH, ur, POC 7.5 5.0 - 8.0 Protein, ur, POC 30.(A) Negative Leukocytes, ur, POC Moderate(A ) Negative Lot Number [id number] Urine 03/13/2024 10:2 5 AM SECURITY ASSURANCE ANALYST Mitra Malone FAST FOOD DELIVERY DRIVER POINT OF CARE TEST ORDERABLES Final Result from Last 3 Months Insurance MEDICARE Advance Directives For more information, please contact: [phone] * LIMITED - No CPR (Latest Code Status on File) Date Activated Date Inactivated Comments 07/19/2023 10:56 PM 07/23/2023 5:51 PM Question Answer Comments Provide aggressive medical m anagement before a full cardiopulmonary arrest occurs. Use antibiotics, IV Fluids, and medical treatment unless specifically selected below: No intubation Care Teams School Adjustment Counselor Relationship Specialty Start Date End Date Phan Garvin MD PCP - General Family Medicine 09/14/22 Phan Garvin MD Family Medicine 09/14/22 Siddharth Jennings MD [address] [address] Consulting Physician Cardiology 10/10/23
--- OUTSIDE RECORDS SUMMARY | 2024-03-15 10:20 | XMS_ITS | Encounter Summary ---
Author Organization [facility] Address [address] [place] [address] Phone Care Team Providers Care Burr Bench Hand Name Role Phone Phan Garvin MD Primary Care Provider [phone] Phan Garvin MD Unavailable [phone] Siddharth Jennings MD Unavailable [phone] Reason for Visit * Reason Onset Date Comments UTI 11/20/2023 Encounter Details Date Type Department Care Team (Late st Contact Info) Description 11/20/2023 Telephone [facility] Obstetrics and Gynecology [facility] [facility] Health 7th Floor [address] [place] [address] Araceli Anderson RN UTI Social History Tobacco Use Types Packs/Day Years Used Date Smoking Tobacco: Never Smokeless Tobacco: Never Alcohol Use Standard Drinks/Week Comments Yes 0 (1 standard drink = 0.6 oz pur e alcohol) [facility] Utilities Answer Date Recorded In the past 12 months has [employer] electric, gas, oil, or water company threatened [...] often do you attend chur ch or church services? Never 07/20/2023 Do you belong to any clubs o r organizations such as sikhism groups, unions, fraternal or athletic groups, or [...] place to sleep or slept in a fci (including now)? No 07/20/2023 Personal Safety Answer Date Recorded Have you ever been in or are you currently in a harmful physical or emotional relationship or is someone making you feel afraid or unsafe? 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 She has two doses left but does not feel like her symptoms have resolved. She called the urgent care back but they said her urine culture was lost. She is going out of town so she would like to leave a urine specimen today at [facility]. Reviewed holding Hiprex while being treated for a UTI. She was not aware she needed todo this. She is taking vaginal estrogen and cranberry. documented in this encounter Plan of Treatment Not on file documented as of this encounter Procedures Procedure Name Priority Date/Time Associated Diagnosis Comments NOTE Routine 11/21/2023 7:29 AM CDT URINALYSIS AND REFLEX TO MICROSCOPIC Routine 11/21/2023 7:29 AM CDT Frequency of urination Dysuria URINE CULTURE Routine 11/21/2023 7:29 AM CDT Frequency of urination Dysuria documented in this encounter Results * NOTE (11/21/2023 7:29 AM CDT) Note [facility] Comment: This urine was analyzed for the presence of WBC, RBC, bacteria, casts, and other formed elements. Only those elements seen were reported. 11/21/2023 7:29 AM CDT 11/21/2023 7:30 AM CDT Poncho Melgar MD LAB BLOOD ORDERABLES Final Result Performing Organization Address [facility] de Phone Number [facility] [address] [place] [address] * Urine culture Urine, clean voided (11/21/2023 7:29 AM CDT) Urine culture [facility] Comment: ??CULTURE, URINE, ROUTINE ?Micro Number: ?[id number] ??Test Status: ? Final ??Specimen Source: ?? Urine, clean catch ??Specimen Quality: ??Adequate ??Result: ?Less than 10,000 CFU/mL of single Gram negative ? organism isolated. No further testing will be ? performed. If clinically indicated, recollection ? using a method to minimize contamination, with ? prompt transfer to Urine Culture Transport Tube, ? is recommended. Urine, clean voided 11/21/2023 7:29 AM CDT 11/21/2023 7:30 AM CDT Ponhco Melgar MD LAB MICROBIOLOGY - GENERAL ORDERABLES Final Result Performing Organization Address [facility] de Phone Number [facility] [address] [place] [address] * (ABNORMAL) Urinalysis reflex to microscopic (11/21/2023 7:29 AM CDT) Color, ur YELLOW YELLOW [facility] Appearance, ur TURBID(A) CLEAR [facility] Specific gravity 1.018 1.001 - 1.035 [facility] pH, ur 5.5 5.0 - 8.0 [facility] Glucose, ur NEGATIVE NEGATIVE [facility] Bilirubin, ur NEGATIVE NEGATIVE [facility] Ketones, ur NEGATIVE NEGATIVE [facility] Blood, ur 3+(A) NEGATIVE [facility] Protein, ur, quant 1+(A) NEGATIVE [facility] Nitrites, ur NEGATIVE NEGATIVE [facility] Leukocyte esterase, ur 2+(A) NEGATIVE [facility] WBC, ur 20-40(A) < OR = 5 /HPF [facility] RBC, ur 20-40(A) < OR = 2 /HPF [facility] Epithelial cells, squamous, ur 6-10(A) < OR = 5 /HPF [facility] Bacteria, ur, quant NONE SEEN NONE SEEN /HPF [facility] Hyaline cast NONE SEEN NONE SEEN /LPF [facility] Urine 11/21/2023 7:29 AM CDT 11/21/2023 7:30 AM CDT us Poncho Melgar MD LAB URINE ORDERABLES Final Result Performing Organization Address City/State/[facility] Co de Phone Number [facility] [address] [place] [address] documented in this encounter Visit Diagnoses Diagnosis Frequency of urination- Primary Urinary frequency Dysuria documented in this encounter Care Teams Burr Bench Hand Relationship Specialty Start Date End Date Phan Garvin MD PCP - General Family Medicine 09/14/22 Phan Garvin MD Family Medicine 09/14/22 Siddharth Jennings MD [address] [address] Consulting Physician Cardiology 10/10/23 documented as of this encounter
--- OUTSIDE RECORDS SUMMARY | 2024-03-15 10:20 | XMS_ITS | Encounter Summary ---
Author Organization [facility] Healthcare Address [address] [place] [address] Care Team Providers Care Data Architect Name Role Phone Phan Garvin MD Primary Care Provider [phone] Phan Garvin MD Unavailable [phone] Siddharth Jennings MD Unavailable [phone] Encounter Details Date Type Department Care Team (Late st Contact Info) Description 01/28/2024 Telephone [facility] Medical Group Cardiology [address] [facility] [address] [address] Martín Fabian MD [address] [place] [address] Social History Tobacco Use Types Packs/Day Years Used Date Smoking Tobacco: Never Smokeless Tobacco: Never Alcohol Use Standard Drinks/Week Comments Yes 0 (1 standard drink = 0.6 oz pur e alcohol) [facility] Utilities Answer Date Recorded In the past 12 months has [employer] electric, gas, oil, or water company threatened [...] often do you attend chur ch or nondenominational services? Never 07/20/2023 Do you belong to [...] place to sleep or slept in a skilled nursing (including now)? No 07/20/2023 Personal Safety Answer Date Recorded Have you ever been in or are you currently in a harmful physical or emotional relationship or is someone making you feel afraid or unsafe? 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 ECT PRODUCTION ENGINEER ECT PRODUCTION ENGINEER documented in this encounter Plan of Treatment Not on file documented as of this encounter Visit Diagnoses Not on filedocumented in this encounter Care Teams Data Architect Relationship Specialty Start Date End Date Phan Garvin MD PCP - General Family Medicine 09/14/22 Phan Garvin MD Family Medicine 09/14/22 Siddharth Jennings MD [address] [place] [address] Consulting Physician Cardiology 10/10/23 documented as of this encounter
--- OUTSIDE RECORDS SUMMARY | 2024-03-15 10:20 | XMS_ITS | Encounter Summary ---
Author Organization [facility] Healthcare Address [address] [place] [address] Care Team Providers Care Tube Pusher Name Role Phone Phan Garvin MD Primary Care Provider + [phone] Phan Garvin MD Unavailable [phone] Siddharth Jennings MD Unavailable [phone] Encounter Details Date Type Department Care Team (Late st Contact Info) Description 11/27/2023 Telephone [facility] Medical Group Cardiology [address] [place] [address] Siddharth Jennings MD [address] [place] [address] Social History Tobacco Use Types Packs/Day Years Used Date Smoking Tobacco: Never Smokeless Tobacco: Never Alcohol Use Standard Drinks/Week Comments Yes 0 (1 standard drink = 0.6 oz pur e alcohol) [facility] Utilities Answer Date Recorded In the past 12 months has [employer] electric, gas, oil, or water company threatened [...] often do you attend chur ch or methodist services? Never 07/20/2023 Do you belong to any clubs o r organizations such as yarsani groups, unions, fraternal or athletic groups, or [...] place to sleep or slept in a halfway (including now)? No 07/20/2023 Personal Safety Answer Date Recorded Have you ever been in or are you currently in a harmful physical or emotional relationship or is someone making you feel afraid or unsafe? 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 * Telephone Encounter - Tami Aaron - 11/27/2023 12:31 PM CDT Patient requesting refill for metoprolol 25 mg with 60 day supply. Please send to [facility] in [place] Serjiojonathan. Contact: documented in this encounter Plan of Treatment Not on file documented as of this encounter Visit Diagnoses Not on filedocumented in this encounter Discontinued Medications Medication Sig Discontinue Reason Start Date End Da te metoprolol XL (TOPROL-XL) 25 mg extended release tablet Take 1 tablet (25 mg total) by mouth every morning Reorder 10/06/2023 11/27/2023 documented as of this encounter Care Teams Tube Pusher Relationship Specialty Start Date End Date Phan Garvin MD PCP - General Family Medicine 09/14/22 Phan Garvin MD Family Medicine 09/14/22 Siddharth Jennings MD [address] [place] [address] Consulting Physician Cardiology 10/10/23 documented as of this encounter
--- OUTSIDE RECORDS SUMMARY | 2024-03-15 10:21 | XMS_ITS | Encounter Summary ---
Author Organization [facility] Healthcare Address [address] [place] [address] Care Team Providers Care Personnel Consultant Name Role Phone Phan Garvin MD Primary Care Provider [phone] Phan Garvin MD Unavailable [phone] Reason for Referral * MRI/CAT/PET Scan (Routine) - Closed Specialty Diagnoses / Procedures Referred By Contac t Referred To Contact Radiology Diagnoses Diverticulitis Diarrhea, unspecified type Anemia, unspecified type Procedure and treatment not carried out for other reasons Procedures CT Colonoscopy Diagnostic WO Contrast Rudy Hollis MD [address] [place] [address] [address] [place] [address] Phone: tel: fax: [address] [address] Referral ID Status Reason Start Date Expiration Date Visits Re quested Visits Authorized [id number] Closed 09/19/2023 03/17/2024 1 1 Encounter Details Date Type Department Care Team (Latest Contact Info) Description 09/19/2023 Orders Only [facility] Gastroenterology at [address] [place] [id number] Rudy Hollis MD [address] [place] [address] [address] [place] [id number] Diverticulitis (Primary Dx); Diarrhea, unspecified type; Anemia, unspecified type; Procedure and treatment not carried out for other reasons Social History Tobacco Use Types Packs/Day Years Used Date Smoking Tobacco: Never Smokeless Tobacco: Never Alcohol Use Standard Drinks/Week Comments Yes 0 (1 standard drink = 0.6 oz pur e alcohol) [facility] Utilities Answer Date Recorded In the past 12 months has [employer], gas, oil, or water [employer] threatened to shut off services in your [...] How often do you attend chur or buddhism services? 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 No polyps greater than 5 mm detected. Recommend repeat CT colonography in 5 years. Extracolonic Findings: E4: Potentially important finding. ??Urinary bladder wall thickening appears similar to prior and may represent cystitis in the correct clinical context. ??Consider correlation with urinalysis. Dictated by: Abdiel Morgan MD, PHD The radiology attending physician has personally reviewed this study, and had reviewed and/or edited this written report and agrees with it. Electronically signed by: Jovanna Webber M.D. Narrative 10/04/2023 2:47 PM CDT EXAMINATION: ?? CT colonography without intravenous contrast HISTORY: Incomplete colonoscopy, screening for colon cancer TECHNIQUE: Transaxial computed tomographic images through the abdomen and pelvis were obtained without intravenous contrast after insufflation of the colon with CO2 through a rectal catheter. Images were obtained in the supine and right lateral decubitus positions. COMPARISON: CT abdomen pelvis 07/19/2023 FINDINGS: The following findings are reported according to the CT Colonography Reporting and Data System (C-RADS) from Radiology 2005; 236:3-9. Colonic preparation and distention: There is underdistention of the descending and sigmoid colon in the area containing diverticula, possibly related to chronic inflammation. The ascending and transverse colon are adequately distended on both supine and right lateral decubitus views. Colonic findings: There is colonic diverticulosis No polyps greater than 5 mm are detected. Extracolonic findings: This CT examination is performed without intravenous contrast and with a low dose technique optimized for evaluation of the colon. Severe mitral annular calcifications and calcified atherosclerotic disease in the coronary arteries. ??2 adjacent nodules in the right lower lobe on series 3 image 32 measuring up to 4 mm unchanged from prior. ??Simple cyst in the upper pole left kidney. ??Soft tissue stranding around the urinary bladder may represent sequela of underlying cystitis, similar to prior. ??Mild calcified atherosclerotic disease abdominal aorta. ??Unchanged para-aortic lymph node measuring 1.0 cm on series 3 image 172 which is otherwise morphologically robi. ??Multilevel degenerative disc disease with grade 1 anterolisthesis of L5 on S1. Procedure Note Jovanna Webber MD - 10/04/2023 EXAMINATION: CT colonography without intravenous contrast HISTORY: Incomplete colonoscopy, screening for colon cancer TECHNIQUE: Transaxial computed tomographic images through the abdomen and pelvis were obtained without intravenous contrast after insufflation of the colon with CO2 through a rectal catheter. Images were obtained in the supine and right lateral decubitus positions. COMPARISON: CT abdomen pelvis 07/19/2023 FINDINGS: The following findings are reported according to the CT Colonography Reporting and Data System (C-RADS) from Radiology 2005; 236:3-9. Colonic preparation and distention: There is underdistention of the descending and sigmoid colon in the area containing diverticula, possibly related to chronic inflammation. The ascending and transverse colon are adequately distended on both supine and right lateral decubitus views. Colonic findings: There is colonic diverticulosis No polyps greater than 5 mm are detected. Extracolonic findings: This CT examination is performed without intravenous contrast and with a low dose technique optimized for evaluation of the colon. Severe mitral annular calcifications and calcified atherosclerotic disease in the coronary arteries. 2 adjacent nodules in the right lower lobe on series 3 image 32 measuring up to 4 mm unchanged from prior. Simple cyst in the upper pole left kidney. Soft tissue stranding around the urinary bladder may represent sequela of underlying cystitis, similar to prior. Mild calcified atherosclerotic disease abdominal aorta. Unchanged para-aortic lymph node measuring 1.0 cm on series 3 image 172 which is otherwise morphologically robi. Multilevel degenerative disc disease with grade 1 anterolisthesis of L5 on S1. IMPRESSION: Colon: C2b: Likely benign diverticular finding in the descending and sigmoid colon. No polyps greater than 5 mm detected. Recommend repeat CT colonography in 5 years. Extracolonic Findings: E4: Potentially important finding. Urinary bladder wall thickening appears similar to prior and may represent cystitis in the correct clinical context. Consider correlation with urinalysis. Dictated by: Abdiel Morgan MD, PHD The radiology attending physician has personally reviewed this study, and had reviewed and/or edited this written report and agrees with it. Electronically signed by: Jovanna Webber M.D. Rudy Hollis MD [facility] [place] PROCEDURES Final Result documented in this encounter Visit Diagnoses Diagnosis Diverticulitis- Primary Diverticulitis of colon (without mention of hemorrhage) Diarrhea, unspecified type Anemia, unspecified type Procedure and treatment not carried out for other reasons Diverticulitis Diverticulitis of colon (without mention of hemorrhage) Diarrhea, unspecified type Anemia, unspecified type Procedure and treatment not carried out for other reasons documented in this encounter Care Teams Personnel Consultant Relationship Specialty Start Date End Date Phan Garvin MD PCP - General Family Medicine 09/14/22 Phan Garvin MD Family Medicine 09/14/22 documented as of this encounter
--- OUTSIDE RECORDS SUMMARY | 2024-03-15 10:21 | XMS_ITS | Encounter Summary ---
Author Organization [facility] Address [address] [place] [address] Phone Care Team Providers Care Recycling Specialist Name Role Phone Phan Garvin MD Primary Care Provider [phone] Phan Garvin MD Unavailable [phone] Encounter Details Date Type Department Care Team (Late st Contact Info) Description 09/18/2023 Telephone [facility] Obstetrics and Gynecology [address] [facility] Out[facility] 7th Floor [address] [place] [address] Maria Esther Brown, RN Social History Tobacco Use Types Packs/Day Years Used Date Smoking Tobacco: Never Smokeless Tobacco: Never Alcohol Use Standard Drinks/Week Comments Yes 0 (1 standard drink = 0.6 oz pur e alcohol) [facility] Utilities Answer Date Recorded In the past 12 months has [employer], gas, oil, or water [employer] threatened to shut off services in your [...] How often do you attend chur or catholic services? Never 07/20/2023 Do you belong to any clubs o r organizations such as shinto groups, unions, fraternal or athletic groups, or [...] place to sleep or slept in a fdc (including now)? No 07/20/2023 Personal Safety Answer Date Recorded Have you ever been in or are you currently in a harmful physical or emotional relationship or is someone making you feel afraid or unsafe? 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 Message was sent to Will wait advisement. documented in this encounter Plan of Treatment Not on file documented as of this encounter Visit Diagnoses Not on filedocumented in this encounter Care Teams Recycling Specialist Relationship Specialty Start Date End Date Phan Garvin MD PCP - General Family Medicine 09/14/22 Phan Garvin MD Family Medicine 09/14/22 documented as of this encounter
--- OUTSIDE RECORDS SUMMARY | 2024-03-15 10:21 | XMS_ITS | Encounter Summary ---
Author Organization [facility] Healthcare Address [address] [place] [address] Care Team Providers Care Microbiology Analyst Name Role Phone Phan Garvin MD Primary Care Provider [phone] Phan Garvin MD Unavailable [phone] Siddharth Jennings MD Unavailable [phone] Encounter Details Date Type Department Care Team (Late st Contact Info) Description 10/05/2023 Orders Only [facility] Health Information Management [address] [place] [address] Luis Ricketts MD [address] [address] Social History Tobacco Use Types Packs/Day Years Used Date Smoking Tobacco: Never Smokeless Tobacco: Never Alcohol Use Standard Drinks/Week Comments Yes 0 (1 standard drink = 0.6 oz pur e alcohol) [facility] Utilities Answer Date Recorded In the past 12 months has [employer], gas, oil, or water company threatened [...] often do you attend chur ch or gnosticism services? 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 Not on file Not on file documented as of this encounter Plan of Treatment Not on file documented as of this encounter Procedures Procedure Name Priority Date/Time Associated Diagnosis Comments CARDIOLOGY DOCUMENT SCAN 10/05/2023 documented in this encounter Results * Cardiology Document Scan (10/05/2023) Anatomical Region Laterality Modality Other us [facility] Jose Raul Ricketts MD [facility] PRO CEDURES Final Result documented in this encounter Visit Diagnoses Not on filedocumented in this encounter Care Teams Microbiology Analyst Relationship Specialty Start Date End Date Phan Garvin MD PCP - General Family Medicine 09/14/22 Phan Garvin MD Family Medicine 09/14/22 Siddharth Jennings MD [address] [place] [id number] Consulting Physician Cardiology 10/10/23 documented as of this encounter
--- OUTSIDE RECORDS SUMMARY | 2024-03-15 10:21 | XMS_ITS | Encounter Summary ---
Author Organization [facility] Healthcare Address [address] [place] [address] Care Team Providers Care Deli Bakery Clerk Name Role Phone Phan Garvin MD Primary Care Provider [phone] Phan Garvin MD Unavailable [phone] Encounter Details Date Type Department Care Team (Late st Contact Info) Description 10/02/2023 Telephone [facility] Gastroenterology at [address] [address] Rudy Hollis MD [address] [place] [address] Social History Tobacco Use Types Packs/Day Years Used Date Smoking Tobacco: Never Smokeless Tobacco: Never Alcohol Use Standard Drinks/Week Comments Yes 0 (1 standard drink = 0.6 oz pur e alcohol) [facility] Utilities Answer Date Recorded In the past 12 months has [employer], gas, oil, or water [employer] threatened to shut off services in your [...] week 07/20/2023 How often do you attend [facility] or [facility] services? Never 07/20/2023 Do you belong to [...] place to sleep or slept in a chcf (including now)? No 07/20/2023 Personal Safety Answer Date Recorded Have you ever been in or are you currently in a harmful physical or emotional relationship or is someone making you feel afraid or unsafe? 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 Please call her at [phone] documented in this encounter Plan of Treatment Not on file documented as of this encounter Visit Diagnoses Not on filedocumented in this encounter Care Teams Deli Bakery Clerk Relationship Specialty Start Date End Date Phan Garvin MD PCP - General Family Medicine 09/14/22 Phan Garvin MD Family Medicine 09/14/22 documented as of this encounter
--- OUTSIDE RECORDS SUMMARY | 2024-03-15 10:21 | XMS_ITS | Encounter Summary ---
Author Organization [facility] Healthcare Address [address] [place] [address] Care Team Providers Care Foamite Mixer Name Role Phone Phan Garvin MD Primary Care Provider [phone] Phan Garvin MD Unavailable [phone] Siddharth Jennings MD Unavailable [phone] Reason for Referral * Consultation (Routine) - Closed Specialty Diagnoses / Procedures Referred By Contac t Referred To Contact Cardiology Diagnoses Paroxysmal atrial fibrillation (CMS/HCC) (HCC) Siddharth Jennings MD [address] [place] [address] Phone: tel: fax: Horace Santoro MD [address] [facility] [address] [place] [address] Phone: tel: fax: Referral ID Status Reason Start Date Expiration Date V isits Requested Visits Authorized [id number] Closed Specialty Services Required 10/09/2023 11/07/2024 1 1 Question Answer Please select the performing region: [facility] [[id number]] Please select the performing department: [facility] [[id number]] To provider: HORACE SANTORO [[id number]] # of visits: 1 Comments Referral for LAAO or watchman Encounter Details Date Type Department Care Team (Late st Contact Info) Description 10/08/2023 Telephone [facility] Cardiology [address] [place] [address] Siddharth Jennings MD [address] [place] [address] Social History Tobacco Use Types Packs/Day Years Used Date Smoking Tobacco: Never Smokeless Tobacco: Never Alcohol Use Standard Drinks/Week Comments Yes 0 (1 standard drink = 0.6 oz pur e alcohol) 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 * Telephone Encounter - Tami Aaron - 10/31/2023 2:01 PM CDT Pt requesting lab orders be sent to [facility] in [place] because they did not receive it. Pt is there now. Contact:[phone] * Telephone Encounter - Lisha Nair RN - 10/26/2023 9:06 AM CDT Lab order sent to [facility] * Addendum Note - Lisha Nair RN - 10/26/2023 9:06 AM CDTAddended by: LISHA NAIR on: 10/26/2023 09:06 AM Modules accepted: Orders * Telephone Encounter - Lynnette Amin - 10/26/2023 8:57 AM CDT Pt requesting lab orders be sent to [facility] on [address] in [place]. Contact:[phone] * Telephone Encounter - Lisha Nair RN - 10/26/2023 8:46 AM CDT LM on VM advised pt that blood in urine was discussed at last OV with [facility] and this may happen whileon Xarelto. Requested return call to see where I can sent a lab order for CBC. * Telephone Encounter - Tami Aaron - 10/26/2023 8:30 AM CDT Pt states she resumed Xarelto 20 mg as instructed on 10/23. States she did not bleed at all until this morning. This morning she noticed blood in her urine 3 times until she used the restroom again just now and there was no blood. Requesting call back to discuss. Contact: * Telephone Encounter - Lisha Nair RN - 10/24/2023 9:45 AM CDT Pt returned call. Reviewed response from [facility] below. Pt appreciative. * Telephone Encounter - Lisha Nair RN - 10/23/2023 1:03 PM CDT LM on with response from [facility] below. Advised pt to return call with any further questions or concerns. * Telephone Encounter - Lisha Nair RN - 10/22/2023 8:51 AM CDT Spoke with pt, pt reports that she took xarelto and started having blood in her urine. Called the exchange and was advised to stop xarelto. Pt has not resumed. Advised pt to continue to hold xarelto.Pt would like to know any other options, discussed emilioman/ADRIANA, pt is not interested in this. Pt wants to be sure that she heard [facility] correctly at last OV and that if she is not on blood thinners that she has a 5-10% chance of having a stroke due to a- fib. Will forward to [facility]. Please advise. * Telephone Encounter - Tami Aaron - 10/22/2023 8:38 AM CDT Pt called to report on Sunday she took half of Xarelto so 10 mg total because she was scared to take the whole 20 mg. On Sunday she noticed blood in her urine. She called our office Sunday evening and spoke to Dr. Snow who advised her to completely stop Xarelto and Asprin and continue regular meds then call the office back on Sunday. Pt wants to know what to do now that she is not on a bloodthinner because she is concerned she will have a stroke. Please advise, thank you. Contact: * Telephone Encounter - Lisha Nair RN - 10/19/2023 10:54 AM CDT Spoke with pt, reviewed the risks of blood thinners with pt, reviewed the risk of not being on blood thinners with A-fib. Pt is wondering why if there is only a 5-10 % chance of having a stroke not on blood thinners why people would take them if the risk was so low. Again reviewed risks and benefits. Pt appreciative of return call. * Telephone Encounter - Tami Aaron - 10/19/2023 9:55 AM CDT Pt states she seen [facility] yesterday and still has questions in regard to AFIB and blood thinners. States yesterday she was told since she has AFIB and is not on a blood thinner she has a 5-10% chance ofhaving a stroke. She wants to know if there is only a 5-10% chance of having a stroke while not being on a blood thinner and having AFIB then why would other people with AFIB be taking blood thinners. Please advise, thank you. Contact: * Telephone Encounter - Albina Monet RN - 10/12/2023 10:03 AM CDT See other tele note. * Telephone Encounter - Tami Aaron - 10/12/2023 9:39 AM CDT Pt requesting call back to discuss why she can't be put on a different blood thinner. Contact: * Addendum Note - Albina Monet RN - 10/09/2023 11:10 AM CDTAddended by: ALBINA MONET on: 10/09/2023 11:10 AM Modules accepted: Orders * Telephone Encounter - Albina Monet RN - 10/09/2023 11:10 AM CDT Spoke with pt and referral placed. Pt given number to call for appt. * Telephone Encounter - Albina Monet RN - 10/09/2023 8:18 AM CDT Spoke with pt. Message reviewed with pt. She would like to be referred for LAAO or watchman. Do youhave a preference on who she is referred to? * Telephone Encounter - Albina Monet RN - 10/09/2023 8:00 AM CDT Lm on vm per [facility] * Telephone Encounter - Albina Monet RN - 10/08/2023 10:00 AM CDT Spoke with pt who was recently in with Afib. She was asked why she was not on AC, she told the posting specialist she had trouble bleeding but she was unsure why the ASA was stopped. He requested she call to find out why she was not on a aspirin if she has not had bleeding problems on the asa. Pt is concerned about reducing her stroke risk. recent records scanned under media for [facility] review. See tele note from 03/09/22 for further info on stopping AC * Telephone Encounter - Tami Aaron - 10/08/2023 8:43 AM CDT Pt states she was at and the doctor at the hospital asked why she is not on a blood thinner. Requesting call back to discuss. Contact: documented in this encounter Plan of Treatment Scheduled Orders Name Type Priority Associated Diagnoses Orde r Schedule CBC with auto differential Lab Routine Paroxysmal atrial fibrillation (CMS/HCC) (HCC) Anemia, unspecified type Expected: 10/30/2023, Expires: 10/25/2024 Scheduled Referrals Name Type Priority Associated Diagnoses Orde r Schedule Ambulatory referral to Cardiology Outpatient Referral Routine Paroxysmal atrial fibrillation (CMS/HCC) (HCC) Expected: 10/09/2023 (Approximate), Expires: 10/08/2024 documented as of this encounter Procedures Procedure Name Priority Date/Time Associated Diagnosis Comments CBC WITH AUTO DIFFERENTIAL Routine 10/31/2023 3:12 PM CDT Paroxysmal atrial fibrillation (CMS/HCC) (HCC) Anemia, unspecified type documented in this encounter Results * (ABNORMAL) CBC with auto differential (10/31/2023 3:12 PM CDT) WBC 6.5 3.8 - 10.8 Thousand/u L [facility] Sean RBC, POC 4.38 3.80 - 5.10 Million/uL [facility] Hgb 13.2 11.7 - 15.5 g/dL [facility] Hct 41.9 35.0 - 45.0 % [facility] MCV 95.7 80.0 - 100.0 fL [facility] MCH 30.1 27.0 - 33.0 pg [facility] MCHC 31.5(L) 32.0 - 36.0 g/dL [facility] Rdw 12.9 11.0 - 15.0 % [facility] Platelets 208 140 - 400 Thousand/u L [facility] MPV 12.0 7.5 - 12.5 fL [facility] Neutrophils, abs 3,153 1,500 - 7,800 cells/uL [facility] Lymphocytes, abs 2,431 850 - 3,900 cells/uL [facility] Monocyte abs 715 200 - 950 cells/uL [facility] Eosinophils, abs 150 15 - 500 cells/uL [facility] Basophils, abs 52 0 - 200 cells/uL [facility] Neutrophils 48.5 % [facility] Lymphocyte pct 37.4 % [facility] Monocytes 11.0 % [facility] Eosinophils 2.3 % [facility] Basophils 0.8 % [facility] Blood 10/31/2023 3:12 PM CDT 10/31/2023 3:13 PM CDT Siddharth Jennings MD LAB BLOOD ORDERABLES Fin al Result [facility] [place] [address] [place] [address] documented in this encounter Visit Diagnoses Diagnosis Paroxysmal atrial fibrillation (CMS/HCC) (HCC)- Primary Atrial fibrillation Anemia, unspecified type documented in this encounter Care Teams Foamite Mixer Relationship Specialty Start Date End Date Phan Garvin MD PCP - General Family Medicine 09/14/22 Phan Garvin MD Family Medicine 09/14/22 Siddharth Jennings MD [address] [address] Consulting Physician Cardiology 10/10/23 documented as of this encounter
--- OUTSIDE RECORDS SUMMARY | 2024-03-15 10:21 | XMS_ITS | Encounter Summary ---
Author Organization [facility] Address [address] [place] [address] Phone Care Team Providers Care Theatrical Rigger Name Role Phone Phan Garvin MD Primary Care Provider [phone] Phan Garvin MD Unavailable [phone] Reason for Visit * Reason Onset Date Comments UACX SHANNAN result 09/26/2023 Encounter Details Date Type Department Care Team (Late st Contact Info) Description 09/26/2023 Telephone [facility] Obstetrics and Gynecology [facility] 7th [address] [place] [address] Maria Esther Brown RN UACX SHANNAN result Social History Tobacco Use Types Packs/Day Years Used Date Smoking Tobacco: Never Smokeless Tobacco: Never Alcohol Use Standard Drinks/Week Comments Yes 0 (1 standard drink = 0.6 oz pur e alcohol) [facility] Utilities Answer Date Recorded In the past 12 months has [employer], gas, oil, or water company threatened [...] often do you attend chur ch or tenriism services? Never 07/20/2023 Do you belong to any clubs o r organizations such as denominational groups, unions, fraternal or athletic groups, or [...] place to sleep or slept in a penitentiary (including now)? No 07/20/2023 Personal Safety Answer Date Recorded Have you ever been in or are you currently in a harmful physical or emotional relationship or is someone making you feel afraid or unsafe? 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 Recommended to increase water intake and take AZO to help minimize Constanza. Patient verbalizes understanding and states she also takes cranberry supplement and vitamin C. Aware to contact us if she has any further questions or concerns. * Telephone Encounter - Maria Esther Brown RN - 09/26/2023 4:00 PM CDT Call received and reviewed UACX SHANNAN result. Reports that she has symptom improvement. documented in this encounter Plan of Treatment Not on file documented as of this encounter Visit Diagnoses Not on filedocumented in this encounter Care Teams Theatrical Rigger Relationship Specialty Start Date End Date Phan Garvin MD PCP - General Family Medicine 09/14/22 Phan Garvin MD Family Medicine 09/14/22 documented as of this encounter
--- OUTSIDE RECORDS SUMMARY | 2024-03-15 10:21 | XMS_ITS | Encounter Summary ---
Author Organization [facility] Healthcare Address [address] [place] [address] Care Team Providers Care Learning Center Coordinator Name Role Phone Phan Garvin MD Primary Care Provider [phone] Phan Garvin MD Unavailable [phone] Encounter Details Date Type Department Care Team (Late st Contact Info) Description 09/18/2023 Orders Only [facility] Gastroenterology at [address] [place] [address] Rudy Hollis MD [address] [place] [address] Social History Tobacco Use Types Packs/Day Years Used Date Smoking Tobacco: Never Smokeless Tobacco: Never Alcohol Use Standard Drinks/Week Comments Yes 0 (1 standard drink = 0.6 oz pur e alcohol) [facility] Utilities Answer Date Recorded In the past 12 months has [employer], gas, oil, or water [employer] threatened to shut off services in your [...] week 07/20/2023 How often do you attend [facility] or anglican services? Never 07/20/2023 Do you belong to any clubs o r organizations such as rastafarian groups, unions, fraternal or athletic groups, or [...] place to sleep or slept in a prison (including now)? No 07/20/2023 Personal Safety Answer Date Recorded Have you ever been in or are you currently in a harmful physical or emotional relationship or is someone making you feel afraid or unsafe? 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
--- OUTSIDE RECORDS SUMMARY | 2024-03-15 10:21 | XMS_ITS | Encounter Summary ---
Author Organization [facility] Healthcare Address [address] [place] [address] Care Team Providers Care Procurement Intern Name Role Phone Phan Garvin MD Primary Care Provider [phone] Phan Garvin MD Unavailable [phone] Reason for Referral * MRI/CAT/PET Scan (Routine) - Closed Specialty Diagnoses / Procedures Referred By Dacia tan Referred To Contact Radiology Diagnoses Diverticulitis Diarrhea, unspecified type Anemia, unspecified type Procedure and treatment not carried out for other reasons Procedures CT Colonoscopy Diagnostic WO Contrast Rudy Hollis MD [address] [place] [address] [address] [place] [address] Phone: tel: fax: [address] [phone] Referral ID Status Reason Start Date Expiration Date Visits Re quested Visits Authorized [id number] Closed 09/19/2023 03/17/2024 1 1 Reason for Visit * MRI/CAT/PET Scan (Routine) - Closed Specialty Diagnoses / Procedures Referred By Dacia tan Referred To Contact Radiology Diagnoses Diverticulitis Diarrhea, unspecified type Anemia, unspecified type Procedure and treatment not carried out for other reasons Procedures CT Colonoscopy Diagnostic WO Contrast Rudy Hollis MD [facility] [address] [place] [address] Phone: tel: fax: [facility] [address] [place] [phone] Referral ID Status Reason Start Date Expiration Date Visits Re quested Visits Authorized [id number] Closed 09/19/2023 03/17/2024 1 1 Encounter Details Date Type Department Care Team (Latest Contact Info) Description 10/03/2023 12:00 PM CDT - 10/03/2023 11:59 PM CDT Hospital Encounter [facility] - Imaging [address] [place] [address] Diverticulitis; Diarrhea, unspecified type; Anemia, unspecified type; Procedure and treatment not carried out for other reasons Discharge Disposition: Discharge to home or self care Social History Tobacco Use Types Packs/Day Years Used Date Smoking Tobacco: Never Smokeless Tobacco: Never Alcohol Use Standard Drinks/Week Comments Yes 0 (1 standard drink = 0.6 oz pur e alcohol) [facility] Utilities Answer Date Recorded In the past 12 months has [employer], gas, oil, or water [employer] threatened to shut off services in your [...] 07/20/2023 How often do you attend [facility] or yarsanism services? Never 07/20/2023 Do you belong to any clubs o r organizations such as roman catholic groups, unions, fraternal or athletic groups, or [...] you are drinking? 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 Not on file [...] 2 (two) times a week Mon and Sun11/20/2022 levothyroxine (SYNTHROID) 25 mcg tabletIndications :hypothyroidism Take [...] for urinary pain 90 tablet 1 07/26/2023 rosuvastatin (CRESTOR) 10 mg tablet 09/24/2019 sotaloL (BETAPACE) 80 mg tablet TAKE 1 TABLET BY MOUTH EVERY 12 HOURS 180 tablet 1 09/27/2023 vit C,J-Nk-erlue-lute in-zeaxan (PreserVision AREDS-2) 250-90-40-1 mg capsuleIndication s:eye vitamin Take 1 capsule by mouth 2 (two) times a day Vowst capsule 05/29/2023 zinc 50 mg tabletIndications :supplement Take 50 mg by mouth every morning cyclobenzaprine (FLEXERIL) 5 mg tablet Take 1 [...] :hypomagnesemia 1 tablet (200 mg total) 11/27/2023 oxyCODONE (ROXICODONE) 5 mg immediate release tablet 05/06/2023 11/27/2023 documented as of this encounter Discharge Disposition Disposition Code Departure Means Destination Discharge to home or self care documented in this encounter Plan of Treatment Not on file documented as of this encounter Procedures Procedure Name Priority Date/Time Associated Diagnosis Comments CT VIRTUAL COLONOSCOPY DIAGNOSTIC WO CONTRAST Schedule Routine, Read Routine (OP Routine) 10/03/2023 3:22 PM CDT Diverticulitis Diarrhea, unspecified type Anemia, unspecified type Procedure and treatment not carried out for other reasons documented in this encounter Results * CT Colonoscopy Diagnostic [...] by: Jovanna Webber M.D. Rudy Hollis MD IMG CT PROCEDURES Final Result documented in this encounter Visit Diagnoses Diagnosis Diverticulitis Diverticulitis of colon (without mention of hemorrhage) Diarrhea, unspecified type Anemia, unspecified type Procedure and treatment not carried out for other reasons documented in this encounter Care Teams Procurement Intern Relationship Specialty Start Date End Date Phan Garvin MD PCP - General Family Medicine 09/14/22 Phan Garvin MD Family Medicine 09/14/22 documented as of this encounter
--- OUTSIDE RECORDS SUMMARY | 2024-03-15 10:21 | XMS_ITS | Encounter Summary ---
Author Organization [facility] Address [address] [place] [address] Phone Care Team Providers Care Care Attendant Name Role Phone Phan Garvin MD Primary Care Provider [phone] Phan Garvin MD Unavailable [phone] Encounter Details Date Type Department Care Team (Late st Contact Info) Description 09/19/2023 Telephone [facility] Obstetrics and Gynecology [address] [facility] [place] [facility] 7th [address] [place] [address] Maria Esther Brown, RN Social History Tobacco Use Types Packs/Day Years Used Date Smoking Tobacco: Never Smokeless Tobacco: Never Alcohol Use Standard Drinks/Week Comments Yes 0 (1 standard drink = 0.6 oz pur e alcohol) [facility] Utilities Answer Date Recorded In the past 12 months has [employer], gas, oil, or water [employer] threatened to shut off services in your [...] How often do you attend chur or moravian services? Never 07/20/2023 Do you belong to any clubs o r organizations such as latter day groups, unions, fraternal or athletic groups, or [...] place to sleep or slept in a correction (including now)? No 07/20/2023 Personal Safety Answer Date Recorded Have you ever been in or are you currently in a harmful physical or emotional relationship or is someone making you feel afraid or unsafe? 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 Patient will go to [facility] on [facility]. Reviewed CCUA procedure. Patient to hold methenamine until completion of antibiotic. * Telephone Encounter - Maria Esther Brown RN - 09/19/2023 11:03 AM CDT ----- Message from Poncho Melgar MD sent at 09/19/2023 10:54 AM CDT ----- Regarding: RE: Keflex Yes, let her know with the additional bacteria/susceptibility, we will add Cipro 500mg po bid x 3 days. SHANNAN upon completion. ----- Message ----- From: Maria Esther Brown RN Sent: 09/18/2023 8:10 AM CDT To: Poncho Melgar MD Subject: Keflex She did get the Keflex from the ED the same day she was in our office for cath specimen. Continues to c/o bladder pain but frequency is better and she is now going through 4-5 depends/nite Did you want to change the antibiotic? ----- Message ----- From: Poncho Melgar MD Sent: 09/17/2023 5:38 PM CDT To: [facility] Clinical Pool Did she get the keflex? documented in this encounter Plan of Treatment Not on file documented as of this encounter Procedures Procedure Name Priority Date/Time Associated Diagnosis Comments URINE CULTURE Routine 09/24/2023 9:12 AM CDT Recurrent UTI documented in this encounter Results * Urine culture Urine, clean voided (09/24/2023 9:12 AM CDT) Urine culture [employer] Estrada Comment: ??CULTURE, URINE, ROUTINE ?Micro Number: ?[id number] ??Test Status: ? Final ??Specimen Source: ?? Urine, clean catch ??Specimen Quality: ??Adequate ??Result: ?Less than 10,000 CFU/mL of single Gram positive ? organism isolated. No further testing will be ? performed. If clinically indicated, recollection ? using a method to minimize contamination, with ? prompt transfer to Urine Culture Transport Tube, ? is recommended. Urine, clean voided 09/24/2023 9:12 AM CDT 09/24/2023 9:12 AM CDT Narrative [facility] - 09/25/2023 3:44 PM CDT FASTING:NO FASTING: NO us Poncho Melgar MD LAB MICROBIOLOGY - GENERAL ORDERABLES Final Result [facility] [address] [place] [address] documented in this encounter Visit Diagnoses Diagnosis Recurrent UTI- Primary Urinary tract infection, site not specified documented in this encounter Care Teams Care Attendant Relationship Specialty Start Date End Date Phan Garvin MD PCP - General Family Medicine 09/14/22 Phan Garvin MD Family Medicine 09/14/22 documented as of this encounter
--- OUTSIDE RECORDS SUMMARY | 2024-03-15 10:22 | XMS_ITS | Encounter Summary ---
Author Organization [facility] Address [address] [place] [address] Phone Care Team Providers Care Nuclear Powerplant Supervisor Name Role Phone Phan Garvin MD Primary Care Provider [phone] Phan Garvin MD Unavailable [phone] Reason for Visit * Reason Onset Date Comments Patient Concerns 09/10/2023 Encounter Details Date Type Department Care Team (Late st Contact Info) Description 09/10/2023 Telephone [facility] Obstetrics and Gynecology [address] [facility] [address] [place] [address] Beth Santamaria, RN Patient Concerns Social History Tobacco Use Types Packs/Day Years Used Date Smoking Tobacco: Never Smokeless Tobacco: Never Alcohol Use Standard Drinks/Week Comments Yes 0 (1 standard drink = 0.6 oz pur e alcohol) [facility] Utilities Answer Date Recorded In the past 12 months has [employer], gas, oil, or water [employer] threatened to shut off services in your [...] 07/20/2023 How often do you attend [facility] or sikh services? 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 Patient experiencing continuous pain and burning with urination. Taking Ibuprofen q6 hr and pyridium 100mg TID but is not effective. Patient experiencing urinary incontinence multiple times a night and is now experiencing diarrhea. Attempted to contact patient. Voicemail left with call back number provided. documented in this encounter Plan of Treatment Not on file documented as of this encounter Visit Diagnoses Not on filedocumented in this encounter Care Teams Nuclear Powerplant Supervisor Relationship Specialty Start Date End Date Phan Garvin MD PCP - General Family Medicine 09/14/22 Phan Garvin MD Family Medicine 09/14/22 documented as of this encounter
--- OUTSIDE RECORDS SUMMARY | 2024-03-15 10:22 | XMS_ITS | Encounter Summary ---
Author Organization [facility] Address [address] [place] [address] Phone Care Team Providers Care Compliance Officer Name Role Phone Phan Garvin MD Primary Care Provider [phone] Phan Garvin MD Unavailable [phone] Reason for Visit * Reason Onset Date Comments Scheduling Appointments 08/10/2023 Encounter Details Date Type Department Care Team (Late st Contact Info) Description 08/10/2023 Telephone [facility] Obstetrics and Gynecology [facility] [place] [address] Judit Jackson Scheduling Appointments Social History Tobacco Use Types Packs/Day Years Used Date Smoking Tobacco: Never Smokeless Tobacco: Never Alcohol Use Standard Drinks/Week Comments Yes 0 (1 standard drink = 0.6 oz pur e alcohol) [facility] Utilities Answer Date Recorded In the past 12 months has [employer], gas, oil, or water [employer] threatened to shut off services in your [...] How often do you attend chur or hindu services? 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 Melgar or Mitra. She did not want to schedule a follow up. She was confused why I was calling to schedule since she no longer is having pain and was referred to another provider. She stated her message was from almost a month ago and she's fine now. I informed her she could still be see as a precaution and follow up, but she refused. documented in this encounter Plan of Treatment Not on file documented as of this encounter Visit Diagnoses Not on filedocumented in this encounter Care Teams Compliance Officer Relationship Specialty Start Date End Date Phan Garvin MD PCP - General Family Medicine 09/14/22 Phan Garvin MD Family Medicine 09/14/22 documented as of this encounter
--- OUTSIDE RECORDS SUMMARY | 2024-03-15 10:22 | XMS_ITS | Encounter Summary ---
Author Organization [facility] Address [address] [place] [address] Care Team Providers Care Screening Technician Name Role Phone Phan Garvin MD Primary Care Provider [phone] Phan Garvin MD Unavailable [phone] Reason for Visit * Reason Comments Atrial Fibrillation 6 month follow up. Encounter Details Date Type Department Care Team (Late st Contact Info) Description 08/23/2023 10:00 AM CDT Office Visit [facility] Cardiology [address] [place] [address] Siddharth Jennings MD [address] [place] [address] Paroxysmal atrial fibrillation (CMS/HCC) (HCC) (Primary Dx) Social History Tobacco Use Types Packs/Day Years Used Date Smoking Tobacco: Never Smokeless Tobacco: Never Alcohol Use Standard Drinks/Week Comments Yes 0 (1 standard drink = 0.6 oz pur e alcohol) [facility] Utilities Answer Date Recorded In the past 12 months has [employer], gas, oil, or water company [...] often do you attend chur ch or sikh services? 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 Not on file Not on file documented as of this encounter Last Filed Vital Signs Vital Sign Reading Time Taken Comments Blood Pressure 130/80 08/23/2023 9:54 AM CDT Pulse 71 08/23/2023 9:54 AM CDT Temperature - - Respiratory Rate - - Oxygen Saturation 97% 08/23/2023 9:54 AM CDT Inhaled Oxygen Concentration - - Weight 72.5 kg (159 lb 12.8 oz) 08/23/2023 9:54 AM CDT Height 160 cm (5' 3 ) 08/23/2023 9:54 AM CDT Body Mass Index 28.31 08/23/2023 9:54 AM CDT documented in this encounter Progress Notes * Siddharth Jennings MD - 08/23/2023 10:00 AM CDT [facility] FOLLOW UP 08/23/2023 Maria A Peralta is a 82 y.o. female who presents for follow up of atrial fibrillation. This lizz patient that I saw in consultation at [facility] in February of 2022 when she came [...] medication was then advanced to sotalol. She returns to the office today for scheduled follow-up. She has not having any problems with recurrences of atrial fibrillation at this time. She was recently in the hospital at [facility] with some abdominal discomfort. She has been dealing with a difficulty with Clostridium difficile. She is also having difficulty with frequent problems with symptoms of dysuria and follows with the urologist at [place] for that. I did notice that according to her chart she is taking low-dose aspirin for her diagnosis of paroxysmal atrial fibrillation. Told the patient that there is no data to support this and low-dose aspirin is not indicated for treatment of atrial fibrillation. She will stop this. Discussed with her the differences between anti-platelet and anticoagulation medications. REVIEW OF SYSTEMS General ROS: negative for [...] 1 tablet (81 mg total) by mouth nightly, Disp: , Rfl: cholecalciferol (VITAMIN D-3) 2000 [...] , Rfl: methenamine (HIPREX) 1 gram tablet, Take 1 tablet (1 g total) by mouth 2 (two) times a day with meals, Disp: 60 tablet, Rfl: 3 oxyCODONE (ROXICODONE) 5 mg immediate release tablet, , Disp: , Rfl: phenazopyridine (PYRIDIUM) 100 mg tablet, Take 1 tablet (100 mg total) by mouth 3 (three) times a day as needed for urinary pain, Disp: 90 tablet, Rfl: 1 sotaloL (BETAPACE) 80 mg tablet, 80 MG ORALLY EVERY 12 HOURS, Disp: 60 tablet, Rfl: 5 vit C,R-Zm-xehhz-lutein-zeaxan (PreserVision AREDS-2) 250-90-40-1 mg capsule, Take 1 [...] for component: LABALBU PHYSICAL EXAM Vitals BP 130/80 (BP Location: Left arm, Patient Position: Sitting) Pulse 71 Ht 160 cm (5' 3 ) Wt 72.5 kg (159 lb 12.8 oz) LMP (LMP Unknown) SpO2 97% BMI 28.31 kg/m?? Physical Examination: General appearance - alert, [...] noted ASSESSMENT Paroxysmal atrial fibrillation PLAN/RECOMMENDATIONS Continue taking sotalol 80 mg twice daily for atrial fib Follow-up in 6 months Patient will stop low-dose aspirin as it has no role in treatment of atrial fib Siddharth Jennings MD documented in this encounter Plan of Treatment Not on file documented as of this encounter Visit Diagnoses Diagnosis Paroxysmal atrial fibrillation (CMS/HCC) (HCC)- Primary Atrial fibrillation documented in this encounter Discontinued Medications Medication Sig Discontinue Reason Start Date End Da te aspirin 81 mg enteric coated tabletIndications:preven tion of thrombosis Take 1 tablet (81 mg total) by mouth nightly 08/23/2023 documented as of this encounter Care Teams Screening Technician Relationship Specialty Start Date End Date Phan Garvin MD PCP - General Family Medicine 09/14/22 Phan Garvin MD Family Medicine 09/14/22 documented as of this encounter
--- OUTSIDE RECORDS SUMMARY | 2024-03-15 10:22 | XMS_ITS | Encounter Summary ---
Author Organization [facility] Address [address] [place] [address] Phone Care Team Providers Care Farm Adviser Name Role Phone Phan Garvin MD Primary Care Provider [phone] Phan Garvin MD Unavailable [phone] Encounter Details Date Type Department Care Team (Late st Contact Info) Description 09/06/2023 Orders Only [facility] Urology [address] [facility] [address] [place] [address] Quincy Lucio MD [address] [facility] [facility] [place] [address] Recurrent UTI (Primary Dx) Social History Tobacco Use Types Packs/Day Years Used Date Smoking Tobacco: Never Smokeless Tobacco: Never Alcohol Use Standard Drinks/Week Comments Yes 0 (1 standard drink = 0.6 oz pur e alcohol) [facility] Utilities Answer Date Recorded In the past 12 months has [employer], gas, oil, or water company threatened to [...] place to sleep or slept in a alf (including now)? No 07/20/2023 Personal Safety Answer Date Recorded Have you ever been in or are you currently in a harmful physical or emotional relationship or is someone making you feel afraid or unsafe? 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 Final ??Specimen Source: ?? Urine, clean catch ??Specimen Quality: ??Adequate ??Result: ?Mixed genital lu isolated. These superficial ? bacteria are not indicative of a urinary tract ? infection. No further organism identification is ? warranted on this specimen. If clinically ? indicated, recollect clean-catch, mid-stream ? urine and transfer immediately to Urine Culture ? Transport Tube. Urine, clean voided 09/06/2023 11:36 AM CDT 09/06/2023 11:37 AM CDT Quincy Lucio MD LAB MICROBIOLOGY - GENERAL ORD ERABLES Final Result [email or web address] [address] [place] [address] documented in this encounter Visit Diagnoses Diagnosis Recurrent UTI- Primary Urinary tract infection, site not specified documented in this encounter Care Teams Farm Adviser Relationship Specialty Start Date End Date Phan Garvin MD PCP - General Family Medicine 09/14/22 Phan Garvin MD Family Medicine 09/14/22 documented as of this encounter
--- OUTSIDE RECORDS SUMMARY | 2024-03-15 10:22 | XMS_ITS | Encounter Summary ---
Author Organization [facility] Address [address] [place] [address] Phone Care Team Providers Care Emanations Analysis Technician Name Role Phone Phan Garvin MD Primary Care Provider [phone] Phan Garvin MD Unavailable [phone] Encounter Details Date Type Department Care Team (Late st Contact Info) Description 09/06/2023 Telephone [facility] Surgery [address] [place], [place] [id number] Arlene Johnson, DUY Social History Tobacco Use Types Packs/Day Years Used Date Smoking Tobacco: Never Smokeless Tobacco: Never Alcohol Use Standard Drinks/Week Comments Yes 0 (1 standard drink = 0.6 oz pur e alcohol) [facility] Utilities Answer Date Recorded In the past 12 months has [employer], gas, oil, or water [employer] threatened to shut off services in your [...] often do you attend chur ch or bahai services? Never 07/20/2023 Do you belong to [...] place to sleep or slept in a long term (including now)? No 07/20/2023 Personal Safety Answer Date Recorded Have you ever been in or are you currently in a harmful physical or emotional relationship or is someone making you feel afraid or unsafe? 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 She is also requesting a call when orders are placed. Patient Provider: [facility] Information: Outcome/Plan: * Telephone Encounter - Arlene Johnson EMT - 09/06/2023 8:04 AM CDT Date: 09/06/2023 Reason for Call: Patient calling to report that she is experiencing UTI symptoms. She would like a urinalysis order sent to [facility]. Patient Provider: [facility] Information: Outcome/Plan: documented in this encounter Plan of Treatment Not on file documented as of this encounter Visit Diagnoses Not on filedocumented in this encounter Care Teams Emanations Analysis Technician Relationship Specialty Start Date End Date Phan Garvin MD PCP - General Family Medicine 09/14/22 Phan Garvin MD Family Medicine 09/14/22 documented as of this encounter
--- OUTSIDE RECORDS SUMMARY | 2024-03-15 10:22 | XMS_ITS | Encounter Summary ---
Author Organization [facility] Address [address] [place] [address] Care Team Providers Care Window Cutter Name Role Phone Phan Garvin MD Primary Care Provider [phone] Phan Garvin MD Unavailable [phone] Encounter Details Date Type Department Care Team (Latest Contact Info) Description 09/12/2023 12:54 PM CDT - 09/12/2023 11:59 PM CDT Hospital Encounter [address] [address] Dysuria Discharge Disposition: Discharge to home or self care Social History Tobacco Use Types Packs/Day Years Used Date Smoking Tobacco: Never Smokeless Tobacco: Never Alcohol Use Standard Drinks/Week Comments Yes 0 (1 standard drink = 0.6 oz pur e alcohol) [facility] Utilities Answer Date Recorded In the past 12 months has [employer], gas, oil, or water [employer] threatened to shut off services in your [...] often do you attend chur ch or denominational services? Never 07/20/2023 Do you belong to any clubs o r organizations such as scientology groups, unions, fraternal or athletic groups, or [...] place to sleep or slept in a jail (including now)? No 07/20/2023 Personal Safety Answer Date Recorded Have you ever been in or are you currently in a harmful physical or emotional relationship or is someone making you feel afraid or unsafe? 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 Not on file [...] 07/26/2023 rosuvastatin (CRESTOR) 10 mg tablet 09/24/2019 vit C,W-Hg-eolqs-lute in-zeaxan (PreserVision AREDS-2) 250-90-40-1 mg capsuleIndication s:eye [...] 5 mg immediate release tablet 05/06/2023 11/27/2023 sotaloL (BETAPACE) 80 mg tablet 80 MG ORALLY EVERY 12 HOURS 60 tablet 5 03/30/2023 09/27/2023 documented as of this encounter Discharge Disposition Disposition Code Departure Means Destination Discharge to home or self care documented in this encounter Plan of Treatment Not on file documented as of this encounter Procedures Procedure Name Priority Date/Time Associated Diagnosis Comments URINE CULTURE Routine 09/12/2023 1:48 PM CDT Dysuria URINALYSIS AND REFLEX TO MICROSCOPIC Routine 09/12/2023 11:39 AM CDT Dysuria URINALYSIS, MICROSCOPIC ONLY Routine 09/12/2023 11:39 AM CDT Dysuria documented in this encounter Results * (ABNORMAL) Urine culture Urine, in and out catheter (09/12/2023 1:48 PM CDT) Report Final Report: Greater than or equal to 100,000 colonies/mL of Aerococcus species Aerococcus species are typically susceptible to beta-lactams (including penicillin and cephalosporins), vancomycin, and tetracyclines (including doxycycline). Susceptibility to trimethoprim-sulfame thoxazole and fluoroquinolones is variable. 10,000 to 100,000 colonies/mL of Pseudomonas aeruginosa Plus growth of clinically insignificant bacterial lu. (.) Organism AEROCOCCUS SPECIES [facility] Organism PSEUDOMONAS AERUGINOSA [facility] Organism PLUS GROWTH OF CLINICALLY INSIGNIFICANT LU. [facility] Urine, in and out catheter 09/12/2023 1:48 PM CDT 09/12/2023 3:30 PM CDT Narrative [facility] - 09/15/2023 10:28 AM CDT Testing performed by [facility] ([phone]) Organism Antibiotic Method Susceptibility Pseudomonas aeruginosa Aztreonam INTERPRETATION Susceptible Pseudomonas aeruginosa Ceftazidime INTERPRETATION Susceptible Pseudomonas aeruginosa Ciprofloxacin INTERPRETATION Susceptible Pseudomonas aeruginosa Cefepime INTERPRETATION Susceptible Pseudomonas aeruginosa Amikacin INTERPRETATION Susceptible Pseudomonas aeruginosa Imipenem INTERPRETATION Susceptible Pseudomonas aeruginosa Meropenem INTERPRETATION Susceptible Pseudomonas aeruginosa Piperacillin/Tazobactam INTERPR ETATION Susceptible Pseudomonas aeruginosa Tobramycin INTERPRETATION Susceptible Poncho Melgar MD LAB MICROBIOLOGY - GENERAL ORDERABLES Final Result Performing Organization Address [facility] de Phone Number [facility] [place] [address] * (ABNORMAL) Urinalysis, microscopic only (09/12/2023 11:39 AM CDT) WBC, ur >50(A) 0 - 5 /HPF RBC, ur 6-10(A) 0 - 2 /HPF [facility] Epithelial cells, squamous, ur >50(A) 0 - 5 /HPF [facility] Comment:Suggestive of contam ination. Consider recollection by clean catch. Bacteria, ur 4+(A) [facility] Mucous, ur Present(A ) [facility] Urine 09/12/2023 11:3 9 AM CDT 09/12/2023 1:49 PM CDT Poncho Melgar MD LAB URINE ORDERABLES Final Result Performing Organization Address [facility] de Phone Number [facility] [place] [address] * (ABNORMAL) Urinalysis reflex to microscopic (09/12/2023 11:39 AM CDT) Color, ur Yellow Yellow Clarity, ur Turbid(A) Clear [facility] Specific gravity, ur 1.015 1.003 - 1.030 [facility] pH, urine 7.0 [facility] Comment: Interpretive Data ? Urine pH is affected by diet, medications, systemic acid-base disturbances, and renal tubular function. ??pH may affect urinary stone formation. ??For example, urine pH below 6.0 may help reduce the tendency for calcium phosphate stones and pH greater than 6.0 may reduce the tendency for uric acid stone formation. Source: [facility] [employer] Current Interpretive Data was last revised on 2017 Protein, ur ql 3+(A) Negative [facility] Glucose, ur ql Negative Negative [facility] Ketones, ur Negative Negative [facility] Bilirubin, ur Negative Negative [facility] Blood, ur 2+(A) Negative [facility] Urobilinogen, ur >=8.0(A) <2.0 mg/dL [facility] Nitrite, ur Negative Negative [facility] Leukocyte esterase, ur 3+(A) Negative [facility] UA reflex comment Reflex to microscopic UA will be performed. [facility] Urine 09/12/2023 11:3 9 AM CDT 09/12/2023 1:49 PM CDT us Poncho Melgar MD LAB URINE ORDERABLES Final Result [facility] [place] [address] documented in this encounter Visit Diagnoses Diagnosis Dysuria documented in this encounter Care Teams Window Cutter Relationship Specialty Start Date End Date Phan Garvin MD PCP - General Family Medicine 09/14/22 Phan Garvin MD Family Medicine 09/14/22 documented as of this encounter
--- OUTSIDE RECORDS SUMMARY | 2024-03-15 10:22 | XMS_ITS | Encounter Summary ---
Author Organization [facility] Address [address] [place] [address] Phone Care Team Providers Care Denture Laboratory Technician Name Role Phone Phan Garvin MD Primary Care Provider [phone] Phan Garvin MD Unavailable [phone] Encounter Details Date Type Department Care Team (Late st Contact Info) Description 09/11/2023 Telephone [facility] Obstetrics and Gynecology [address] [facility] 7th [address] [place] [address] Maria Esther Brown, RN Social History Tobacco Use Types Packs/Day Years Used Date Smoking Tobacco: Never Smokeless Tobacco: Never Alcohol Use Standard Drinks/Week Comments Yes 0 (1 standard drink = 0.6 oz pur e alcohol) [facility] Utilities Answer Date Recorded In the past 12 months has [employer], gas, oil, or water [employer] threatened to shut off services in your [...] How often do you attend chur or amish services? 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 Melgar for cath UA, PVR and instructions on vaginal icing. Patient has h/o C.Dif and would prefer to defer empiric treatment at this time. She is taking ibuprofen 600 mg q6 and pyridium as prescribed by Dr. Lucio. Reviewed UTI prevention plan for VET 2X's/week, methenamine and Vit C. Last positive urine culture 07/03/23. Last urine culture 09/06/23 with mixed lu. Scheduled appt 09/12/23 * Telephone Encounter - Maria Esther Brown RN - 09/11/2023 8:27 AM CDT T/C from tearful patient c/o pain & burning with urination and perineum which began 6 days ago.She is having urinary incontinence and saturating 8-9 diapers during night. She is taking Ibuprofen 600 q5 & pyridium for pain w/o help. She takes VET 5 days/week, methenamine and Vit C. She is doing PFPT exercises and did not receive vaginal icing tubes. H/o urinary retention. Patient saw Dr. 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 Last UACX done 09/06/23 which showed mixed genital lu. Message to Dr. Melgar. documented in this encounter Plan of Treatment Not on file documented as of this encounter Visit Diagnoses Not on filedocumented in this encounter Care Teams Denture Laboratory Technician Relationship Specialty Start Date End Date Phan Garvin MD PCP - General Family Medicine 09/14/22 Phan Garvin MD Family Medicine 09/14/22 documented as of this encounter
--- OUTSIDE RECORDS SUMMARY | 2024-03-15 10:22 | XMS_ITS | Encounter Summary ---
Author Organization [facility] Address [address] [place] [address] Phone Care Team Providers Care Simplex Operator Name Role Phone Phan Garvin MD Primary Care Provider [phone] Phan Garvin MD Unavailable [phone] Reason for Visit * Reason Comments Bladder diverticulum * Consultation (Routine) - Closed Specialty Diagnoses / Procedures Referred By Contashley t Referred To Contact Urology Diagnoses Bladder diverticulum Phan Garvin MD [address] [place] [address] Phone: tel: fax: [facility] (All Locations) Referral ID Status Reason Start Date Expiration Date V isits Requested Visits Authorized [id number] Closed Specialty Services Required 07/23/2023 08/21/2024 1 1 Encounter Details Date Type Department Care Team (Late st Contact Info) Description 07/26/2023 8:20 AM CDT Office Visit [facility] - [facility] Urology [address] [facility] 11th [place] [address] [place] [address] Quincy Lucio MD [address] [facility] [address] [place] [address] Bladder pain (Primary Dx); Bladder diverticulum; Recurrent urinary tract infection; Incomplete bladder emptying Social History Tobacco Use Types Packs/Day Years Used Date Smoking Tobacco: Never Smokeless Tobacco: Never Alcohol Use Standard Drinks/Week Comments Yes 0 (1 standard drink = 0.6 oz pur e alcohol) [facility] Utilities Answer Date Recorded In the [...] any clubs o r organizations such as synagogue groups, unions, fraternal or athletic groups, or [...] on file 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 female with a history of incomplete bladder emptying and recurrent urinary tract infections. She has multiple positive urine cultures in the last few months. In April 05 2023, she has Pseudomonas. In July 03 2023 she has E coli. She also had a number of negative urine cultures, including March 13, 2023, April 11, 2023, July 10, 2023, July 17, 2023, and July 19, 2023. She has seen Dr. Melgar in Urogynecology, and regarding C diff and urinary tract infections. Looking her record, I think her recurrent UTI situation has been properly manage, she is on estrogen cream intravaginally, methenamine prophylaxis, vitamin-C prophylaxis, and she is using cranberry. With that strategy, it appears to be working, her most recent urine culture has been negative. She co ntinues to have burning and discomfort inside her bladder. She has a CT scan of the abdomen and pelvis that reveals thickened bladder wall, likely related to chronic inflammatory changes from recurrent UTI, and also a few small bladder diverticulum. Patient is specifically referred here to discuss her bladder diverticulum seen on CT scan. I suggest to the patient that we should do a cystoscopy tolook at a diverticulum. She is previous bladder biopsy that shows no malignancy. There is no lesions inside her diverticulum previously. She reported incomplete bladder emptying, but can not do self intermittent catheterization. She hasurodynamics evaluation with urogynecology here. Review of Images: I personally and independently reviewed this patient's radiology images. I agree with the radiologist's report. My opinion is small bladder diverticulum, thickened bladder wall, upper tract looks normal. LURN SI-10 questionnaire revealed: 1 for urgency, 0 for urgency incontinence, 0 for stress incontinence with coughing/sneezing, 0 for stress incontinence with exercises/lifting, 2 for pain/discomfort with bladder filling, 3 for delay to start urine stream, 2 for slow or weak urine stream, 0 for dribble, Note: [4=every time, 3=most of the time, 2=about half of time, 1=a few times, 0=never] 8-10/day [score of 2] for frequency, 2-3/night [score of 2] for nocturia. The LUTS is somewhat bothered. The LURN-SI is scanned into medical record. ROS: Review Of Systems has been reviewed and can be found in the chart. The patient's past medical history, social history and family history are listed on their questionnaire, have been reviewed and can be found in the chart. UA: see chemical UA dipstick results from today. The chemical UA dip results was reviewed. Physical examination: GENERAL: Patient is healthy appearing, who is well developed, well nourished in no acute distress. Eyes: Pupils equal, round. Sclera anicteric. Chest: Lungs clear to auscultation bilaterally. Heart: Regular rate and rhythm. Abdomen: Soft and non-tender, no masses, no hernia. No CVA tenderness. Skin: No rashes or lesions. Musculoskeletal: Normal strength. No edema. Neurologic: Alert, nonfocal. Psychiatric: Normal affect and mood, oriented x 3. Post-void residual: Measurement of postvoid residual urine and/or bladder capacity by ultrasound, non imaging. PVR = 55 cc. Cystoscopy (female): Indication for cystoscopy: Bladder diverticulum The risks and benefits of office cystoscopy are discussed with patient. Risks include but not limited to infection, bleeding, pain, etc. Patient understands the risks and benefits and consented to proceed with office cystoscopy and all indicated procedures. The skin was prepped with betadine. Lidocaine in lubricant jelly was instilled into the urethra. The flexible cystoscope was introduced into the urethra and advanced into the bladder. URETHRA: Normal without strictures or lesions. TRIGONE & UOs: Normal anatomy with efflux of clear urine. No mucosal lesions or subtrigonal masses. BLADDER MUCOSA: Normal, without neoplasms or other lesions. DETRUSOR: Normal capacity, without flaccidity, without excessive compliance. There are a few small bladder diverticulum, they are wide mouth, and should not be causing UTI RETROFLEXED SCOPE VIEW: Normal ADDITIONAL PROCEDURES: None No Hunner lesion or foreign bodies such as mesh inside the bladder. The cystoscopy was performed in the presence of female check embosser, Radha Perez. 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 I think we should give her more time for her bladder to come down because she has multiple episodesof positive urine culture and UTI recently, and the bladder tissue likely is inflamed and sensitized from repeated itself with UTI. For symptomatic relief, I recommend using Pyridium PRN Her PVR was low today. She will continue follow-up with Dr. Melgar and Dr. Chavis for her recurrent UTI. I do not think her bladder diverticulum warrants surgical intervention such as surgical excision. The PVR was low, the diverticulum is small, and surgery may further inflamed her bladder and causing more pain. Parveen Lucio MD primary care sales representative (Urology) Division of Urologic Surgery [employer] Office [phone] 07/26/2023 8:39 AM Note: This note was generated by speech recognition software and may contain homophonic word substitutions or errors, please contact me for any questions. documented in this encounter Plan of Treatment Not on file documented as of this encounter Procedures Procedure Name Priority Date/Time Associated Diagnosis Comments POCT URINALYSIS DIPSTICK Routine 07/26/2023 8:26 AM CDT Bladder diverticulum documented in this encounter Results * (ABNORMAL) POCT urinalysis dipstick (07/26/2023 8:26 AM CDT) Glucose, ur, POC Negative Negative MG/DL Ketones, ur, POC Negative Negative Blood, ur, POC 2+(A) Negative pH, ur, POC 5.0 5.0 - 8.0 Protein, ur, POC 1+(A) Negative Nitrite, ur, POC Negative Negative Leukocytes, ur, POC Trace(A) Negative Lot Number 0 Urine 07/26/2023 8:26 AM CDT Quincy Lucio MD POINT OF CARE TEST ORDERABLES Final Result documented in this encounter Visit Diagnoses Diagnosis Bladder pain- Primary Other symptoms involving urinary system Bladder diverticulum Diverticulum of bladder Recurrent urinary tract infection Urinary tract infection, site not specified Incomplete bladder emptying documented in this encounter Discontinued Medications Medication Sig Discontinue Reason Start Date End Da te diphenhydrAMINE (Sleep Aid, diphenhydrAMINE,) 25 mg capsuleIndications:sle ep Take 0.5 tablet/capsule (12.5 mg total) by mouth nightly as needed for itching or sleep No longer clinically indicated 07/26/2023 phenazopyridine (PYRIDIUM) 100 mg tabletIndications:Acut e cystitis with hematuria Take 1 tablet (100 mg total) by mouth 3 (three) times a day as needed (urinary pain) for up to 6 doses Take After meals 12/31/2021 07/26/2023 documented as of this encounter Historical Medications * This list may reflect changes made after this encounter. Medication Sig Dispense Quantity Refills Last Filled Start D ate End Date Vowst capsule 05/29/2023 oxyCODONE (ROXICODONE) 5 mg immediate release tablet 05/06/2023 11/27/2023 dicyclomine (BENTYL) 10 mg capsule 05/06/2023 11/27/2023 added in this encounter Orders Outpatient Referral Count Last Ordered Date Fir st Ordered Date AMB REFERRAL TO UROLOGY 1 07/26/2023 documented in this encounter Care Teams Simplex Operator Relationship Specialty Start Date End Date Phan Garvin MD PCP - General Family Medicine 09/14/22 Phan Garvin MD Family Medicine 09/14/22 documented as of this encounter
--- OUTSIDE RECORDS SUMMARY | 2024-03-15 10:22 | XMS_ITS | Encounter Summary ---
Author Organization [facility] Address [address] [place] [address] Care Team Providers Care Chronic Care Nurse Name Role Phone Phan Garvin MD Primary Care Provider [phone] Phan Garvin MD Unavailable [phone] Encounter Details Date Type Department Care Team (Late st Contact Info) Description 09/18/2023 Orders Only [facility] Gastroenterology at [address] [place] [phone] Rudy Hollis MD [address] [place] [id number] Procedure and treatment not carried out for other reasons (Primary Dx); Diverticulitis; Diarrhea, unspecified type Social History Tobacco Use Types Packs/Day Years Used Date Smoking Tobacco: Never Smokeless Tobacco: Never Alcohol Use Standard Drinks/Week Comments Yes 0 (1 standard drink = 0.6 oz pur e alcohol) [facility] Utilities Answer Date Recorded In the past 12 months has [employer], gas, oil, or water company threatened to [...] often do you attend chur ch or presybeterian services? 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
--- OUTSIDE RECORDS SUMMARY | 2024-03-15 10:22 | XMS_ITS | Encounter Summary ---
Author Organization [facility] Address [address] [place] [address] Phone Care Team Providers Care House Parent Name Role Phone Phan Garvin MD Primary Care Provider [phone] Phan Garvin MD Unavailable [phone] Encounter Details Date Type Department Care Team (Late st Contact Info) Description 09/10/2023 Telephone [facility] Urology [address] [facility] [address] [place] [address] Quincy Lucio MD [address] [facility] [address] [place] [address] Social History Tobacco Use Types Packs/Day Years Used Date Smoking Tobacco: Never Smokeless Tobacco: Never Alcohol Use Standard Drinks/Week Comments Yes 0 (1 standard drink = 0.6 oz pur e alcohol) [facility] Utilities Answer Date Recorded In the past 12 months has [employer], gas, oil, or water company threatened [...] often do you attend chur ch or quaker services? 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
--- OUTSIDE RECORDS SUMMARY | 2024-03-15 10:22 | XMS_ITS | Encounter Summary ---
Author Organization [facility] Address [address] [place] [address] Phone Care Team Providers Care Excelsior Machine Tender Name Role Phone Phan Garvin MD Primary Care Provider [phone] Phan Garvin MD Unavailable [phone] Encounter Details Date Type Department Care Team (Late st Contact Info) Description 09/14/2023 Telephone [facility] Obstetrics and Gynecology [address] [facility] 7th Floor [address] [place] [address] Maria Esther Brown, RN Social History Tobacco Use Types Packs/Day Years Used Date Smoking Tobacco: Never Smokeless Tobacco: Never Alcohol Use Standard Drinks/Week Comments Yes 0 (1 standard drink = 0.6 oz pur e alcohol) [facility] Utilities Answer Date Recorded In the past 12 months has [employer], gas, oil, or water [employer] threatened to shut off services in your [...] How often do you attend chur or scientology services? 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 Patient left our office after cath UA and went to [facility] ED due to pain. [place] ED provided her with IV hydration, pain med & keflex. Patient has been taking Keflex since Sun evening and is feeling symptom improvement today. Will contact patient when UACX final. * Telephone Encounter - Maria Esther Brown RN - 09/14/2023 10:03 AM CDT ----- Message from Judit Dickerson sent at 09/14/2023 9:02 AM CDT ----- ----- Message ----- From: Poncho Melgar MD Sent: 09/14/2023 8:23 AM CDT To: Kvng Oleary [facility] Scheduling Pool Please off her Kefelx 500mg po bid for the Aerococcus. Please tell there is a 2nd species that pending. documented in this encounter Plan of Treatment Not on file documented as of this encounter Visit Diagnoses Not on filedocumented in this encounter Care Teams Excelsior Machine Tender Relationship Specialty Start Date End Date Phan Garvin MD PCP - General Family Medicine 09/14/22 Phan Garvin MD Family Medicine 09/14/22 documented as of this encounter
--- OUTSIDE RECORDS SUMMARY | 2024-03-15 10:22 | XMS_ITS | Encounter Summary ---
Author Organization [facility] Address [address] [place] [address] Phone Care Team Providers Care Marine Electrician Helper Name Role Phone Phan Garvin MD Primary Care Provider [phone] Phan Garvin MD Unavailable [phone] Encounter Details Date Type Department Care Team (Latest Contact Info) Description 09/12/2023 11:00 AM CDT Procedure visit [facility] Obstetrics and Gynecology [address] [facility] [facility] 7th Floor [address] [place] [address] Dysuria (Primary Dx) Social History Tobacco Use Types Packs/Day Years Used Date Smoking Tobacco: Never Smokeless Tobacco: Never Alcohol Use Standard Drinks/Week Comments Yes 0 (1 standard drink = 0.6 oz pur e alcohol) [facility] Utilities Answer Date Recorded In the past 12 months has [employer], gas, oil, or water [employer] threatened to shut off services in your [...] How often do you attend chur or oriental orthodox services? 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 Melgar, patient comes in today for followup PVR check. Postvoid residual Voided volume: 50 mL Straight Catheterization Her urethra was prepped with Hibiclens. Straight catheterization performed using sterile technique.Pt tolerated procedure well. PVR: 115 mL D/W Dr. Melgar and patient has abnormal PVR. Plan is to send UA and culture and await results. Reviewed upper tract ED precautions. Discussed [facility] ED vs [facility] ED with patient and her friend. They will plan on going to [facility] ED for her pain and most likely UTI treatment. documented in this encounter Plan of Treatment Not on file documented as of this encounter Results * (ABNORMAL) Urine culture [...] insignificant bacterial lu. (.) Organism AEROCOCCUS SPECIES [facility] Organism PSEUDOMONAS [facility] Organism PLUS GROWTH OF CLINICALLY INSIGNIFICANT LU. [facility] Urine, in and out catheter 09/12/2023 1:48 PM CDT 09/12/2023 3:30 PM CDT Narrative [facility] - 09/15/2023 10:28 AM CDT Testing performed by [facility] ([phone]) Organism Antibiotic Method Susceptibility Pseudomonas aeruginosa Aztreonam INTERPRETATION Susceptible Pseudomonas aeruginosa Ceftazidime INTERPRETATION Susceptible Pseudomonas aeruginosa Ciprofloxacin INTERPRETATION Susceptible Pseudomonas aeruginosa Cefepime INTERPRETATION Susceptible Pseudomonas aeruginosa Amikacin INTERPRETATION Susceptible Pseudomonas aeruginosa Imipenem INTERPRETATION Susceptible Pseudomonas aeruginosa Meropenem INTERPRETATION Susceptible Pseudomonas aeruginosa Piperacillin/Tazobactam INTERPR ETATION Susceptible Pseudomonas aeruginosa Tobramycin INTERPRETATION Susceptible Poncho Melgar MD LAB MICROBIOLOGY - GENERAL ORDERABLES Final Result [facility] [place] [address] * (ABNORMAL) Urinalysis reflex to microscopic (09/12/2023 11:39 AM CDT) Color, ur Yellow Yellow Clarity, ur Turbid(A) Clear [facility] Specific gravity, ur 1.015 1.003 - 1.030 [facility] pH, urine 7.0 [facility] Comment: Interpretive Data ? Urine pH is affected by diet, medications, systemic acid-base disturbances, and renal tubular function. ??pH may affect urinary stone formation. ??For example, urine pH below 6.0 may help reduce the tendency for calcium phosphate stones and pH greater than 6.0 may reduce the tendency for uric acid stone formation. Source: [facility] Current Interpretive Data was last revised on 2017 Protein, ur ql 3+(A) Negative [facility] Glucose, ur ql Negative Negative [facility] Ketones, ur Negative Negative [facility] Bilirubin, ur Negative Negative [facility] Blood, ur 2+(A) Negative [facility] Urobilinogen, ur >=8.0(A) <2.0 mg/dL [facility] Nitrite, ur Negative Negative [facility] Leukocyte esterase, ur 3+(A) Negative [facility] UA reflex comment Reflex to microscopic UA will be performed. [facility] Urine 09/12/2023 11:3 9 AM CDT 09/12/2023 1:49 PM CDT Poncho Melgar MD LAB URINE ORDERABLES Final Result [facility] [place] [address] documented in this encounter Visit Diagnoses Diagnosis Dysuria- Primary Dysuria documented in this encounter Care Teams Marine Electrician Helper Relationship Specialty Start Date End Date Phan Garvin MD PCP - General Family Medicine 09/14/22 Phan Garvin MD Family Medicine 09/14/22 documented as of this encounter
--- OUTSIDE RECORDS SUMMARY | 2024-03-15 10:22 | XMS_ITS | Encounter Summary ---
Author Organization [facility] Address [address] [place] [address] Phone Care Team Providers Care Farm Specialist Name Role Phone Phan Garvin MD Primary Care Provider [phone] Phan Garvin MD Unavailable [phone] Reason for Visit * Reason Onset Date Comments final UACX result 09/17/2023 Encounter Details Date Type Department Care Team (Late st Contact Info) Description 09/17/2023 Telephone [facility] Obstetrics and Gynecology [facility] 7th Floor [address] [place] [address] Maria Esther Brown RN final UACX result Social History Tobacco Use Types Packs/Day Years Used Date Smoking Tobacco: Never Smokeless Tobacco: Never Alcohol Use Standard Drinks/Week Comments Yes 0 (1 standard drink = 0.6 oz pur e alcohol) [facility] Utilities Answer Date Recorded In the past 12 months has [employer], gas, oil, or water company threatened [...] often do you attend chur ch or baptism services? 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 09/12/23 UACX finalized with 2 organisms. Treated with Keflex for Aerococcus species. 2nd organism Pseudomonas Aeruginosa & susceptibilities completed. Cephalexin not listed. Would you recommend changing antibiotic? She is feeling a little better, less urinary frequency, decrease number of depends at nighttime butcontinues to c/o bladder pain which is eased with tylenol. documented in this encounter Plan of Treatment Not on file documented as of this encounter Visit Diagnoses Not on filedocumented in this encounter Care Teams Farm Specialist Relationship Specialty Start Date End Date Phan Garvin MD PCP - General Family Medicine 09/14/22 Phan Garvin MD Family Medicine 09/14/22 documented as of this encounter
--- OUTSIDE RECORDS SUMMARY | 2024-03-15 10:23 | XMS_ITS | Encounter Summary ---
Author Organization [facility] Address [address] [place] [address] Phone Care Team Providers Care Cook House Supervisor Name Role Phone Phan Garvin MD Primary Care Provider [phone] Phan Garvin MD Unavailable [phone] Encounter Details Date Type Department Care Team (Late st Contact Info) Description 07/13/2023 Telephone [facility] Infectious Diseases [address] [place] [address] [address] [place] [address] Zari Thomas BS Social History Tobacco Use Types Packs/Day Years Used Date Smoking Tobacco: Never Smokeless Tobacco: Never Alcohol Use Standard Drinks/Week Comments Yes 0 (1 standard drink = 0.6 oz pur e alcohol) AUDIT-C Answer Date Recorded Q1: How often do you have a drink containing alcohol? Never 04/11/2023 Q2: How many drinks containi ng alcohol do you have on a typical day when you are drinking? Patient does not drink Q3: How often do you have si x or more drinks on one occasion? Never 04/11/2023 Personal Safety Answer Date Recorded Have you ever been in or are you currently in a harmful physical or emotional relationship or is someone making you feel afraid or unsafe? 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 * Telephone Encounter - Zari Thomas BS - 07/13/2023 10:15 AM CDT Pts daughter can't find the pyridium that was recommended [phone] documented in this encounter Plan of Treatment Not on file documented as of this encounter Visit Diagnoses Not on filedocumented in this encounter Care Teams Cook House Supervisor Relationship Specialty Start Date End Date Phan Garvin MD PCP - General Family Medicine 09/14/22 Phan Garvin MD Family Medicine 09/14/22 documented as of this encounter
--- OUTSIDE RECORDS SUMMARY | 2024-03-15 10:23 | XMS_ITS | Encounter Summary ---
Author Organization [facility] Address [address] [place] [address] Phone Care Team Providers Care Casino Beverage Server Name Role Phone Phan Garvin MD Primary Care Provider [phone] Phan Garvin MD Unavailable [phone] Encounter Details Date Type Department Care Team (Late st Contact Info) Description 07/12/2023 Telephone [facility] Infectious Diseases [address] [place] [address] [address] [place] [address] Marina Colunga, 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 Chavis aware of UA and negative urine culture results. Advised patient to continue to drinking plenty of fluids, take OTC pyridium and ibuprofen and be seen in ER if abdominal pain is severe. * Telephone Encounter - Marina Colunga CMA - 07/12/2023 2:07 PM CDT Please call in a medication that will help this patient with their UTI. The patient says she is in a lot of pain, and it seem like we cannot get rid of her UTI. The contact number is [phone]. documented in this encounter Plan of Treatment Not on file documented as of this encounter Visit Diagnoses Not on filedocumented in this encounter Care Teams Casino Beverage Server Relationship Specialty Start Date End Date Phan Garvin MD PCP - General Family Medicine 09/14/22 Phan Garvin MD Family Medicine 09/14/22 documented as of this encounter
--- OUTSIDE RECORDS SUMMARY | 2024-03-15 10:23 | XMS_ITS | Encounter Summary ---
Author Organization [facility] Address [address] [place] [address] Phone Care Team Providers Care Assistant Wrestling Coach Name Role Phone Phan Garvin MD Primary Care Provider [phone] Phan Garvin MD Unavailable [phone] Encounter Details Date Type Department Care Team (Late st Contact Info) Description 07/18/2023 Telephone [facility] Infectious Diseases [address] [place] [address] [address] [place] [address] Tessa Diaz, [facility] Social History Tobacco Use Types Packs/Day Years Used Date Smoking Tobacco: Never Smokeless Tobacco: Never Alcohol Use Standard Drinks/Week Comments Yes 0 (1 standard drink = 0.6 oz pur e alcohol) [facility] Utilities Answer Date Recorded In the past 12 months has [employer], [employer], oil, or water [email or web address] threatened to shut off services in your [...] often do you attend chur ch or druze services? 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 Patient reporting unrelieved urinary pain, despite OTC medication, Dr. Chavis aware, advised patient to follow up with FUR DRESSING SUPERVISOR. * Telephone Encounter - Tessa Diaz LCSW - 07/18/2023 3:42 PM CDT Patient is requesting a call back for her UTI Lab results, and what can she do for her pain. Patient is at [phone] documented in this encounter Plan of Treatment Not on file documented as of this encounter Visit Diagnoses Not on filedocumented in this encounter Care Teams Assistant Wrestling Coach Relationship Specialty Start Date End Date Phan Garvin MD PCP - General Family Medicine 09/14/22 Phan Garvin MD Family Medicine 09/14/22 documented as of this encounter
--- OUTSIDE RECORDS SUMMARY | 2024-03-15 10:23 | XMS_ITS | Encounter Summary ---
Author Organization [facility] Address [address] [place] [address] Phone Care Team Providers Care Funeral Planner Name Role Phone Phan Garvin MD Primary Care Provider [phone] Phan Garvin MD Unavailable [phone] Encounter Details Date Type Department Care Team (Late st Contact Info) Description 07/17/2023 Orders Only [facility] Infectious Diseases [address] [place] [address] [address] [place] [address] Donnie Chavis MD [address] [facility] [address] [place] [address] Recurrent UTI (Primary Dx) Social History Tobacco [...] on file Legal Sex Female 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 Gender Identity Not on file Sexual Orientation Not on file 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 Final ??Specimen Source: ?? Urine ??Specimen Quality: ??Adequate ??Result: ?Mixed genital lu isolated. These superficial ? bacteria are not indicative of a urinary tract ? infection. No further organism identification is ? warranted on this specimen. If clinically ? indicated, recollect clean-catch, mid-stream ? urine and transfer immediately to Urine Culture ? Transport Tube. 07/17/2023 1:09 PM CDT 07/17/2023 1:11 PM CDT Donnie Chavis MD LAB MICROBIOLOGY - GENERAL O RDERABLES Final Result Performing Organization Address [facility]/ZIP Co de Phone Number [facility] [address] [place] [address] * REFLEXIVE URINE CULTURE (07/17/2023 1:09 PM CDT) Urine culture [facility] Comment:CULTURE INDICATED - RESULTS TO FOLLOW 07/17/2023 1:09 PM CDT 07/17/2023 1:11 PM CDT Donnie Chavis MD LAB MICROBIOLOGY - GENERAL O RDERABLES Final Result Performing Organization Address [facility] Co de Phone Number [facility] [address] [place] [address] * (ABNORMAL) Urinalysis reflex to microscopic and culture Urine, clean voided (07/17/2023 1:09 PM CDT) Color, ur YELLOW YELLOW [facility] Appearance, ur CLOUDY(A) CLEAR [facility] Specific gravity 1.010 1.001 - 1.035 [facility] pH, ur > OR = 9.0(A) 5.0 - 8.0 [facility] Glucose, ur NEGATIVE NEGATIVE [facility] Bilirubin, ur NEGATIVE NEGATIVE [facility] Ketones, ur NEGATIVE NEGATIVE [facility] Blood, ur 1+(A) NEGATIVE [facility] Protein, ur, quant 2+(A) NEGATIVE [facility] Nitrites, ur POSITIVE(A) NEGATIVE [facility] Leukocyte esterase, ur 3+(A) NEGATIVE [facility] WBC, ur > OR = 60(A) < OR = 5 /HPF [facility] RBC, ur 3-10(A) < OR = 2 /HPF [facility] Epithelial cells, squamous, ur 0-5 < OR = 5 /HPF [facility] Bacteria, ur, quant MANY(A) NONE SEEN /HPF [facility] Hyaline cast NONE SEEN NONE SEEN /LPF [facility] Note [facility] Comment: This urine was analyzed for the presence of WBC, RBC, bacteria, casts, and other formed elements. Only those elements seen were reported. Urine, clean voided 07/17/2023 1:09 PM CDT 07/17/2023 1:11 PM CDT Donnie Chavis MD LAB MICROBIOLOGY - GENERAL O RDERABLES Final Result [facility] [address] [place] [address] documented in this encounter Visit Diagnoses Diagnosis Recurrent UTI- Primary Urinary tract infection, site not specified documented in this encounter Care Teams Funeral Planner Relationship Specialty Start Date End Date Phan Garvin MD PCP - General Family Medicine 09/14/22 Phan Garvin MD Family Medicine 09/14/22 documented as of this encounter
--- OUTSIDE RECORDS SUMMARY | 2024-03-15 10:23 | XMS_ITS | Encounter Summary ---
Author Organization [facility] Address [address] [place] [address] Phone Care Team Providers Care Data Entry Representative Name Role Phone Phan Garvin MD Primary Care Provider [phone] Phan Garvin MD Unavailable [phone] Encounter Details Date Type Department Care Team (Late st Contact Info) Description 07/20/2023 Telephone [facility] Infectious Diseases [address] [place] [address] [address] [place] [address] Marina Colunga, [facility] Social History Tobacco Use Types Packs/Day Years Used Date Smoking Tobacco: Never Smokeless Tobacco: Never Alcohol Use Standard Drinks/Week Comments Yes 0 (1 standard drink = 0.6 oz pur e alcohol) [facility] Utilities Answer Date Recorded In the past 12 months has [employer], oil, or water [employer] threatened to shut off services in your [...] often do you attend chur ch or adventism services? 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 * Telephone Encounter - Marina Colunga CMA - 07/20/2023 8:51 AM CDT This patient is in [facility] in [place], [place]. The patient says she do not know why the [facility] lab did not find the infection in her body. [facility] found infection in this patient's Urethra, Bladder and Left Kidney. Please call the patient for questions, at [phone]. documented in this encounter Plan of Treatment Not on file documented as of this encounter Visit Diagnoses Not on filedocumented in this encounter Care Teams Data Entry Representative Relationship Specialty Start Date End Date Phan Garvin MD PCP - General Family Medicine 09/14/22 Phan Garvin MD Family Medicine 09/14/22 documented as of this encounter
--- OUTSIDE RECORDS SUMMARY | 2024-03-15 10:23 | XMS_ITS | Encounter Summary ---
Author Organization [facility] Address [address] [place] [address] Phone Care Team Providers Care Manager Culinary Name Role Phone Phan Garvin MD Primary Care Provider [phone] Phan Garvin MD Unavailable [phone] Encounter Details Date Type Department Care Team (Late st Contact Info) Description 07/10/2023 Telephone [facility] Infectious Diseases [address] [place] [address] [address] [place] [address] Zari Thomas BS Social History [...] on file Legal Sex Female 7:11 PM 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 * Telephone Encounter - Zari Thomas BS - 07/10/2023 8:11 AM CDT Pt said she just wants to ask nurse what do you want me to do now [phone] documented in this encounter Plan of Treatment Not on file documented as of this encounter Visit Diagnoses Not on filedocumented in this encounter Care Teams Manager Culinary Relationship Specialty Start Date End Date Phan Garvin MD PCP - General Family Medicine 09/14/22 Phan Garvin MD Family Medicine 09/14/22 documented as of this encounter
--- OUTSIDE RECORDS SUMMARY | 2024-03-15 10:23 | XMS_ITS | Encounter Summary ---
Author Organization [facility] Address [address] [place] [address] Phone Care Team Providers Care Wicker Worker Name Role Phone Phan Garvin MD Primary Care Provider [phone] Phan Garvin MD Unavailable [phone] Reason for Visit * Reason Onset Date Comments urology referral 07/13/2023 Encounter Details Date Type Department Care Team (Late st Contact Info) Description 07/13/2023 Telephone [facility] Obstetrics and Gynecology [address] 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 Melgar's cystoscopy notes and referral to urology. Urology phone number given to schedule appt. documented in this encounter Plan of Treatment Not on file documented as of this encounter Visit Diagnoses Not on filedocumented in this encounter Care Teams Wicker Worker Relationship Specialty Start Date End Date Phan Garvin MD PCP - General Family Medicine 09/14/22 Phan Garvin MD Family Medicine 09/14/22 documented as of this encounter
--- OUTSIDE RECORDS SUMMARY | 2024-03-15 10:23 | XMS_ITS | Encounter Summary ---
Author Organization [facility] Healthcare Address [address] [place] [address] Care Team Providers Care Conceptor Name Role Phone Phan Garvin MD Primary Care Provider [phone] Phan Garvin MD Unavailable [phone] Reason for Visit * Reason Comments Bladder Problem Urinary Problem * Auth/Cert Specialty Diagnoses / Procedures Referred By Contac t Referred To Contact Diagnoses Pyelonephritis Procedures NA Referral ID Status Reason Start Date Expiration Date Visits Re quested Visits Authorized [id number] 1 1 Encounter Details Date Type Department Care Team (Latest Contact Info) Description 07/19/2023 6:09 PM CDT - 07/23/2023 1:50 PM CDT Hospital Encounter [facility] 5 Med Surg [facility] [place], [place] [id number] Gaetano Tellez MD [facility] [address] Lorena Jones MD [facility] [place] [address] Vince Ibrahim MD [address] [place] [address] Pyelonephritis (Primary Dx) Discharge Disposition: Discharge to home or self care Social History Tobacco Use Types Packs/Day Years Used Date Smoking Tobacco: Never Smokeless Tobacco: Never Alcohol Use Standard Drinks/Week Comments Yes 0 (1 standard drink = 0.6 oz pur e alcohol) [facility] Utilities Answer Date Recorded In the [...] often do you attend chur ch or baptist services? 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 Not on file Not on file Not on file documented as of this encounter Last Filed Vital Signs Vital Sign Reading Time Taken Comments Blood Pressure 147/66 07/23/2023 11:42 AM CDT Pulse 60 07/23/2023 11:42 AM CDT Temperature 36.8 ??C (98.2 ??F) 07/23/2023 11:42 AM C DT Respiratory Rate 18 07/23/2023 11:42 AM CDT Oxygen Saturation 96% 07/23/2023 11:42 AM CDT Inhaled Oxygen Concentration - - Weight 74.6 kg (164 lb 7.4 oz) 07/20/2023 12:10 AM CDT Height 160 cm (5' 3 ) 07/20/2023 12:10 AM CDT Body Mass Index 29.13 07/20/2023 12:10 AM CDT documented in this encounter Discharge Summaries * Vince Ibrahim MD - 07/23/2023 10:38 AM CDT Inpatient Discharge Summary BRIEF OVERVIEW Admitting Provider: Gaetano Tellez MD Discharge Provider: Vince Ibrahim MD Primary Care Physician at Discharge: Phan Garvin MD [phone] Admission Date: 07/19/2023 Discharge Date: 07/23/2023 Admission Location: [facility] Problems/Diagnoses: Principal Problem: Pyelonephritis Resolved Problems: No resolved hospital problems. DETAILS OF HOSPITAL STAY Presenting Problem/History of Present Illness: Patient reports that for about 2 weeks she has had dysuria and increasing lower abdominal pain thatshe believes is bladder pain. She states that she has been providing urinalysis in the outpatient setting, she states that after 3 days they called on 2 different occasions to report that there was no growth and that she did not have urinary tract infection. However symptoms continued prompting presentation to the emergency room today for further evaluation. She denies fever, chills, headache, lightheadedness, dizziness, chest pain, shortness on breath, palpitations, diaphoresis. She reports history of recurrent urinary tract infection, last completed course of antibiotics about 2 3 weeks ago. She also notes history of C diff, completed fecal transplant about 4-6 weeks ago. Hospital Course: Patient reports that for about 2 weeks she has had dysuria and increasing lower abdominal pain thatshe believes is bladder pain. She states that she has been providing urinalysis in the outpatient setting, she states that after 3 days they called on 2 different occasions to report that there was no growth and that she did not have urinary tract infection. However symptoms continued prompting presentation to the emergency room today for further evaluation. She denies fever, chills, headache, lightheadedness, dizziness, chest pain, shortness on breath, palpitations, diaphoresis. She reports history of recurrent urinary tract infection, last completed course of antibiotics about 2 3 weeks ago. She also notes history of C diff, completed fecal transplant about 4-6 weeks ago. UTI Ruled out with negative urine culture and abs discontinued Patient continue to complain same pain and she stated she was having this pain for 5 years saw morethan 10 physicians, atleast 8 of them urologist, have urology appointment at [facility] and advised to follow up with her appointment Urinary tract infection/pyelonephritis, unlikely: UA noted, large amount of epithelial cells 21-50.However patient with UTI symptoms of dysuria. CT noted for severe bladder wall thickening and bilateral urothelial enhancement evidence for cystitis with ascending infection. No evidence of renal parenchymal infection. 0 of 4 sirs criteria. Initiated on ceftriaxone in the emergency room, continue on admission. 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 In September -ice/heat pack, avoid opiates since pain is not long lasting 07/22/2023 UTI and pyelonephritis ruled out abs discontinued 07/23/2023: continue to complain pelvic pain 06/19 Atrial fibrillation: Not chronically anticoagulated, on antiplatelet therapy. Continue sotalol. Currently normal sinus rhythm. 07/21: remains in normal sinus rhythm 07/21: remains in sinus rhythm CAD: Continue aspirin, statin Elevated blood pressure without history of hypertension: Blood pressure 150 to 160s over 70s to 80s. Not chronically on antihypertensives, pain control for bladder infection as outlined above. Monitor and add p.r.n. antihypertensives if needed.. 07/21: bp remained stable BP remained stable Hyperlipidemia: Continue statin Hypothyroidism: Continue Synthroid Active Issues Requiring Follow-up: None Test Results Pending at Discharge: Pending Labs Order Current Status Blood culture Blood Peripheral Preliminary result Blood culture Blood Peripheral Preliminary result Operative Procedures Performed: None Other Procedures: None Pertinent Test Results: None Discharge Details Physical Exam at Discharge: Discharge Condition: stable Pulse: 62 Resp: 20 BP: 155/81 Temp: 36.7 ??C (98 ??F) Weight: 74.6 kg (164 lb 7.4 oz) Pertinent Exam Findings at Discharge: General Exam: In no acute distress Skin: Dry, Warm. No abrasion/skin tear at at labia, no discharge seen, no foul smell, tender to light touch at vaginal opening Head: Atraumatic, Normocephalic Ears, Nose, Mouth, Throat: Ext. ears & nose normal, Moist mucous membranes Neck: Supple Cardiovascular: Normal range, Regular rhythm, S1S2 normal. ABSENT: Edema Respiratory: CTA bilaterally, Effort normal ABSENT: Crackles, Rhonchi Abdomen: Bowel sounds present, Soft. LLQ abdom pain, no significant SP discomfort on exam Musculoskeletal/Extremities: Joints normal Neurological: Cranial nerves II-XII WNL. ABSENT: Gross deficits, Facial droop, Focal weakness, Tremors Psychiatric: Affect distressed, Alert Psychiatric - Orientation: Oriented to: Time, Place, Person Discharge Disposition: Discharge to home or self care Code Status at Discharge: full code Discharge Instructions: Activity Instructions Discharge activity: Resume normal activity Diet Instructions Adult Discharge Diet Diet Type: Return to previous diet Other Instructions Call provider for: Temperature -Temperature greater than 101 degrees F Call provider for: difficulty breathing or chest pain Call provider for: hives Call provider for: persistent nausea or vomiting Call provider for: redness, tenderness, or signs of infection (pain, swelling, redness, odor or green/yellow discharge around incision site) Call provider for: severe uncontrolled pain Call provider for: headache, visual disturbances, weakness and speech changes Discharge Medications: Current Medications TAKE these medications ascorbic acid 500 mg tablet,chewable Take 1 tablet/chew tab (500 mg total) by mouth every morning For: supplement Commonly known as: VITAMIN C aspirin 81 mg enteric coated tablet Take 1 tablet (81 mg total) by mouth nightly For: prevention of thrombosis cholecalciferol 2000 unit capsule Take 1 capsule (2,000 Units total) by mouth every morning For: low vitamin D levels Commonly known as: VITAMIN D-3 cranberry 400 mg capsule Take 800 mg by mouth every morning For: urinary health cyclobenzaprine 5 mg tablet Take 1 tablet (5 mg total) by mouth 3 (three) times a day Commonly known as: FLEXERIL estradioL 0.01 % (0.1 mg/gram) vaginal cream Insert 2 g into the vagina 2 (two) times a week Mon and Fri For: postmenopausal urethral atrophy Commonly known as: ESTRACE HYDROcodone-acetaminophen 5-325 mg per tablet Take 1 tablet by mouth every 4 (four) hours as needed (moderate pain) For: pain Commonly known as: NORCO levothyroxine 25 mcg tablet Take 1 tablet (25 mcg total) by mouth every morning For: a condition with low thyroid hormone levels Commonly known as: SYNTHROID magnesium gluconate 200 mg tablet 1 tablet (200 mg total) For: low amount of magnesium in the blood methenamine 1 gram tablet Take 1 tablet (1 g total) by mouth 2 (two) times a day with meals For: UTI prophylaxis Commonly known as: HIPREX PreserVision AREDS-2 250-90-40-1 mg capsule Take 1 capsule by mouth 2 (two) times a day For: eye vitamin Generic drug: vit C,M-Pu-raxsd-lutein-zeaxan Sleep Aid (diphenhydrAMINE) 25 mg capsule Take 0.5 tablet/capsule (12.5 mg total) by mouth nightly as needed for itching or sleep For: sleep Generic drug: diphenhydrAMINE sotaloL 80 mg tablet 80 MG ORALLY EVERY 12 HOURS Commonly known as: BETAPACE zinc 50 mg tablet Take 50 mg by mouth every morning For: supplement ASK your doctor about these medications phenazopyridine 100 mg tablet Take 1 tablet (100 mg total) by mouth 3 (three) times a day as needed (urinary pain) for up to 6 doses Take After meals Commonly known as: PYRIDIUM rosuvastatin 10 mg tablet Commonly known as: CRESTOR Outpatient Follow-Up: Future Appointments Date Time Provider Department Center 07/26/2023 8:20 AM Quincy Lucio MD [facility] 08/23/2023 10:00 AM [facility] 25 minutes spent in patient interview, physical exam, preparing discharge order, discharge summary and discussing discharge medication and instruction with the patient documented in this encounter Discharge Instructions * Discharge Instr - Other Orders* Radha Vinson RN - 07/23/2023 11:52 AM CDT [employer] offers you a secure web portal to help you take better care of Maria A. With [employer], you can use the Internet to schedule appointments, see her test results and medical history, get medication refills, and message her care team securely. Going Home from the Hospital with [facility] Thank you for using [employer]. Please follow the instructions below to securely access your online medical record. How Do I Access my Discharge Instructions in [employer]? Go to [email or web address] Login with your [employer]reet[employer] username and password. Select My Medical Record Select Hospital Admissions From here, you can review your hospital After Visit Summary, including your discharge instructions. How Do I Make a Follow-Up Appointment in [facility]? Go to [email or web address] Login with your [employer] username and password. Select Appointments Select the link Schedule an Appt Follow the prompts to schedule your appointment Additional Information If you have questions, you can e-mail [email or web address] or call [phone] to talk to our [facility] staff. Remember, [employer] is NOT to be used for urgent needs. For medical emergencies, dial 911. documented in this encounter Medications at Time [...] mcg total) by mouth every morning 03/03/2022 rosuvastatin (CRESTOR) 10 mg tablet 09/24/2019 vit C,Z-Rz-jsaro-lute in-zeaxan (PreserVision AREDS-2) 250-90-40-1 mg capsuleIndication s:eye vitamin Take 1 capsule by mouth 2 (two) times a day Vowst capsule 05/29/2023 zinc 50 mg tabletIndications :supplement Take 50 mg by mouth every morning aspirin 81 mg enteric coated tabletIndications :prevention of thrombosis Take 1 tablet (81 mg total) by mouth nightly 08/23/2023 cyclobenzaprine (FLEXERIL) 5 mg tablet Take 1 tablet (5 mg total) by mouth 3 (three) times a day 90 tablet 07/23/2023 11/27/2023 dicyclomine (BENTYL) 10 mg capsule 05/06/2023 11/27/2023 diphenhydrAMINE (Sleep Aid, diphenhydrAMINE,) 25 mg capsuleIndication s:sleep Take 0.5 tablet/capsul e (12.5 mg total) by mouth nightly as needed for itching or sleep 07/26/2023 HYDROcodone-aceta minophen (NORCO) 5-325 mg per tabletIndications :Pain Take 1 tablet by mouth every 4 (four) hours as needed (moderate pain) 12 tablet 07/23/2023 11/27/2023 magnesium gluconate 200 mg tabletIndications :hypomagnesemia 1 tablet (200 mg total) 11/27/2023 methenamine (HIPREX) 1 gram tabletIndications :UTI prophylaxis Take 1 tablet (1 g total) by mouth 2 (two) times a day with meals 60 tablet 3 05/21/2023 08/31/2023 oxyCODONE (ROXICODONE) 5 mg immediate release tablet 05/06/2023 11/27/2023 phenazopyridine (PYRIDIUM) 100 mg tabletIndications :Acute cystitis with hematuria Take 1 tablet (100 mg total) by mouth 3 (three) times a day as needed (urinary pain) for up to 6 doses Take After meals 6 tablet 12/31/2021 07/26/2023 sotaloL (BETAPACE) 80 mg tablet 80 MG ORALLY EVERY 12 HOURS 60 tablet 5 03/30/2023 09/27/2023 documented as of this encounter Ordered Prescriptions Prescription Sig Dispense Quantity Refills Last Filled Start Date End Date HYDROcodone-acetam inophen (NORCO) 5-325 mg per tabletIndications: Pain Take 1 tablet by mouth every 4 (four) hours as needed (moderate pain) 12 tablet 07/23/2023 11/27/2023 cyclobenzaprine (FLEXERIL) 5 mg tablet Take 1 tablet (5 mg total) by mouth 3 (three) times a day 90 tablet 07/23/2023 11/27/2023 documented in this encounter Discharge Disposition Disposition Code Departure Means Destination Comment s Discharge to home or self care documented in this encounter Progress Notes * Leann Kelly - 07/23/2023 11:36 AM CDT Spiritual Care Note Jayla Reddy MCM.Div Pt shared eschatological views with contract graphic designer. Prayer 07/23/23 1100 Time Spent Start Time 1115 Patient Spiritual Assessment Spirituality Assessed Yes Mormon Affiliation Alevism Active in Denominational Yes (TV- Curt Ioana) Clinical Encounter Type Visited With Patient;Health care provider Mormon Encounters Mormon Needs Prayer Interventions Interventions Active listening;Prayer * Vince Ibrahim MD - 07/23/2023 8:07 AM CDT General Medicine Daily Progress SUBJECTIVE Chief complaint of Patient is a 82 y.o. female with a PMHx significant for atrial fibrillation not chronically anticoagulated only on antiplatelet therapy, recurrent urinary tract infection, history of recurrent C diff. Presents to the ED with a chief complaint of dysuria, bladder pain. HPI: Patient reports that for about 2 weeks she has had dysuria and increasing lower abdominal pain thatshe believes is bladder pain. She states that she has been providing urinalysis in the outpatient setting, she states that after 3 days they called on 2 different occasions to report that there was no growth and that she did not have urinary tract infection. However symptoms continued prompting presentation to the emergency room today for further evaluation. She denies fever, chills, headache, lightheadedness, dizziness, chest pain, shortness on breath, palpitations, diaphoresis. She reports history of recurrent urinary tract infection, last completed course of antibiotics about 2 3 weeks ago. She also notes history of C diff, completed fecal transplant about 4-6 weeks ago. . Interval History: Vss On rocephin Blood and urine cx pending Lower abdom cramping Has seen multiple urologist, has appt w Dr Lucio I September at [facility] 07/20 Vss No growth in blood cx And no clinically significant growth on uCx Abx stopped by ID Topical estrogen recommended Pt has intermittent pelvic pain at opening of vaginal canal and deep inside Pain even w/o urination Has experienced this for years, just completed 4-5 sessions of pelvic floor PT Has some vaginal discharge, unchanged 07/22/2023 Seen and examined No new event Still complaining pain 06/19 Patient seen and examined Still complaining pain 06/19 No change with pain meds OBJECTIVE Vitals: 24hr Min/Max: Temp Min: 36.3 ??C (97.3 ??F) Max: 36.7 ??C (98.1 ??F) Pulse Min: 54 Max: 63 BP Min: 112/50 Max: 130/68 Resp Min: 18 Max: 20 SpO2 Min: 93 % Max: 96 % Most Recent : Vitals: 07/23/23 0420 BP: 125/56 Pulse: 57 Resp: 20 Temp: 36.3 ??C (97.3 ??F) SpO2: 93% I/O last 2 completed shifts: In: 660 [P.O.:660] Out: 761 [Urine:761] No intake/output data recorded. Physical Exam: General Exam: In no acute distress Skin: Dry, Warm. No abrasion/skin tear at at labia, no discharge seen, no foul smell, tender to light touch at vaginal opening Head: Atraumatic, Normocephalic Ears, Nose, Mouth, Throat: Ext. ears & nose normal, Moist mucous membranes Neck: Supple Cardiovascular: Normal range, Regular rhythm, S1S2 normal. ABSENT: Edema Respiratory: CTA bilaterally, Effort normal ABSENT: Crackles, Rhonchi Abdomen: Bowel sounds present, Soft. LLQ abdom pain, no significant SP discomfort on exam Musculoskeletal/Extremities: Joints normal Neurological: Cranial nerves II-XII WNL. ABSENT: Gross deficits, Facial droop, Focal weakness, Tremors Psychiatric: Affect distressed, Alert Psychiatric - Orientation: Oriented to: Time, Place, Person Lab/Current Medication Review: No results found for this or any previous visit (from the past 24 hour(s)). CT Abdomen Pelvis W Contrast Result Date: 07/19/2023 Narrative: EXAM DESCRIPTION: CT ABDOMEN PELVIS W CONTRAST REASON FOR STUDY: Abdominal pain, acute, nonlocalized Patient states that she has been having extreme urinary and bladder pain x 3 days. States that she has been having these issues x 5 years, was told she has diverticulum on her bladder. Had a clear UA test on Sunday. Patient states she was told to come to ER for imaging. TECHNIQUE: CT scan of the abdomen and pelvis performed with intravenous and without oral contrast using helical scanning technique with dynamic intravenous contrast injection. Reconstructed coronal and sagittal MPR images reviewed. All images stored on PACS. Automated exposure control was used as a dose optimizatio n technique for this examination. CONTRAST TYPE/DOSE: 100mL of IOVERSOL 350 MG IODINE/ML INTRAVENOUS SYRINGE injected via intravenous COMPARISON: None FINDINGS: LOWER CHEST: Lung bases clear. Mild cardiomegaly. Heavy annular and coronary artery calcification. No effusion LIVER/BILIARY: Mild hepaticsteatosis. Biliary tree normal in caliber. GALLBLADDER: Normal. SPLEEN: Scattered nonspecific low-attenuation lesions. PANCREAS: Normal. ADRENAL GLANDS: Normal. KIDNEYS/URINARY TRACT: Fazk-lv-lxduklpq renal atrophy. Urothelial enhancement. No visible inflammation. Marked wall thickening of the bladder. GI: Stomach and small bowel appear normal. Extensive noninflamed sigmoid diverticulosis. Normal appendix. OTHER ABDOMINAL/PELVIS: Major vascular structures are grossly patent and normal in caliber. No enlarged lymph node or free fluid. MSK: Moderate disc disease and facet arthropathy. Hip and SI joint arthrosis. BODY WALL: Unremarkable. IMPRESSION: Severe bladder wall thickening and bilateral urothelial enhancement are evidence for cystitis with ascending infection. No evidence of renal parenchymal infection. THIS IS AN ELECTRONICALLY VERIFIED FINAL REPORT 07/19/2023 8:38 PM - Electronically signed by Collin Cassidy M.D. AR: TEDDY Report ID: [id number] Reading Location: [id number] Current Facility-Administered Medications Medication Dose Route Frequency Provider Last Rate Last Admin acetaminophen (TYLENOL) tablet 650 mg 650 mg oral Q4H PRN Gaetano Tellez MD 650 mg at 07/22/23 1521 Or acetaminophen (TYLENOL) 32 mg/mL oral liquid 650 mg 650 mg feeding tube Q4H PRN Gaetano Tellez MD Or acetaminophen (TYLENOL) suppository 650 mg 650 mg rectal Q4H PRN Gaetano Tellez MD aspirin enteric coated tablet 81 mg 81 mg oral Nightly Gaetano Tellez MD 81 mg at 07/22/232122 cyclobenzaprine (FLEXERIL) tablet 5 mg 5 mg oral TID Vince Ibrahim MD 5 mg at 07/22/232122 enoxaparin (LOVENOX) syringe 40 mg 40 mg subcutaneous Daily-2100 Gaetano Tellez MD 40 mgat 07/22/232123 estradioL (ESTRACE) 0.01 % (0.1 mg/gram) vaginal cream 2 g 2 g vaginal Once per day on Sunday Zheng Lopez MD 2 g at 07/22/23 173 HYDROcodone-acetaminophen (NORCO) 5-325 mg per tablet 1 tablet 1 tablet oral Q4H PRN Gaetano Tellez MD 1 tablet at 07/21/23 174 ibuprofen (ADVIL,MOTRIN) tablet/capsule 200 mg 200 mg oral TID Vince Ibrahim MD 200 mg at 07/22/232122 levothyroxine (SYNTHROID) tablet 25 mcg 25 mcg oral Daily - 0600 Gaetano Tellez MD 25 mcg at 07/23/23 06 naloxone (NARCAN) injection 0.4 mg 0.4 mg intravenous Q10 Min PRN Gaetano Tellez MD pantoprazole DR (PROTONIX) extended release tablet 40 mg 40 mg oral Daily Vince Ibrahim MD 40 mg at 07/22/23 1154 polyethylene glycol (MIRALAX) packet 17 g 17 g oral Daily PRN Gaetano Tellez MD 17 g at 07/22/23 0753 ramelteon (ROZEREM) tablet 8 mg 8 mg oral Nightly PRN Gaetano Tellez MD 8 mg at 123 sotaloL (BETAPACE) tablet 80 mg 80 mg oral Q12H HUSSEIN Gaetano Tellez MD 80 mg at 07/22/232122 A/P: MDM Principal Problem: Pyelonephritis Resolved Problems: No resolved hospital problems. Urinary tract infection/pyelonephritis, unlikely: UA noted, large amount of epithelial cells 21-50.However patient with UTI symptoms of dysuria. CT noted for severe bladder wall thickening and bilateral urothelial enhancement evidence for cystitis with ascending infection. No evidence of renal parenchymal infection. 0 of 4 sirs criteria. Initiated on ceftriaxone in the emergency room, continue on admission. 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 In September -ice/heat pack, avoid opiates since pain is not long lasting 07/22/2023 UTI and pyelonephritis ruled out abs discontinued 07/23/2023: continue to complain pelvic pain 06/19 Atrial fibrillation: Not chronically anticoagulated, on antiplatelet therapy. Continue sotalol. Currently normal sinus rhythm. 07/21: remains in normal sinus rhythm 07/21: remains in sinus rhythm CAD: Continue aspirin, statin Elevated blood pressure without history of hypertension: Blood pressure 150 to 160s over 70s to 80s. Not chronically on antihypertensives, pain control for bladder infection as outlined above. Monitor and add p.r.n. antihypertensives if needed.. 07/21: bp remained stable BP remained stable Hyperlipidemia: Continue statin Hypothyroidism: Continue Synthroid MDM; low complexity Vince Ibrahim MD 07/23/2023 8:07 AM * Vince Ibrahim MD - 07/22/2023 7:16 AM CDT General Medicine Daily Progress SUBJECTIVE Chief complaint of Patient is a 82 y.o. female with a PMHx significant for atrial fibrillation not chronically anticoagulated only on antiplatelet therapy, recurrent urinary tract infection, history of recurrent C diff. Presents to the ED with a chief complaint of dysuria, bladder pain. HPI: Patient reports that for about 2 weeks she has had dysuria and increasing lower abdominal pain thatshe believes is bladder pain. She states that she has been providing urinalysis in the outpatient setting, she states that after 3 days they called on 2 different occasions to report that there was no growth and that she did not have urinary tract infection. However symptoms continued prompting presentation to the emergency room today for further evaluation. She denies fever, chills, headache, lightheadedness, dizziness, chest pain, shortness on breath, palpitations, diaphoresis. She reports history of recurrent urinary tract infection, last completed course of antibiotics about 2 3 weeks ago. She also notes history of C diff, completed fecal transplant about 4-6 weeks ago. . Interval History: Vss On rocephin Blood and urine cx pending Lower abdom cramping Has seen multiple urologist, has appt w Dr Lucio I September at [facility] 07/20 Vss No growth in blood cx And no clinically significant growth on uCx Abx stopped by ID Topical estrogen recommended Pt has intermittent pelvic pain at opening of vaginal canal and deep inside Pain even w/o urination Has experienced this for years, just completed 4-5 sessions of pelvic floor PT Has some vaginal discharge, unchanged 07/22/2023 Seen and examined No new event Still complaining pain 06/19 OBJECTIVE Vitals: 24hr Min/Max: Temp Min: 36.3 ??C (97.3 ??F) Max: 37 ??C (98.6 ??F) Pulse Min: 52 Max: 64 BP Min: 111/47 Max: 143/67 Resp Min: 18 Max: 18 SpO2 Min: 92 % Max: 95 % Most Recent : Vitals: 07/22/23 0417 BP: 140/92 Pulse: 60 Resp: 18 Temp: 37 ??C (98.6 ??F) SpO2: 93% I/O last 2 completed shifts: In: 480 [P.O.:480] Out: 904 [Urine:904] No intake/output data recorded. Physical Exam: General Exam: In no acute distress Skin: Dry, Warm. No abrasion/skin tear at at labia, no discharge seen, no foul smell, tender to light touch at vaginal opening Head: Atraumatic, Normocephalic Ears, Nose, Mouth, Throat: Ext. ears & nose normal, Moist mucous membranes Neck: Supple Cardiovascular: Normal range, Regular rhythm, S1S2 normal. ABSENT: Edema Respiratory: CTA bilaterally, Effort normal ABSENT: Crackles, Rhonchi Abdomen: Bowel sounds present, Soft. LLQ abdom pain, no significant SP discomfort on exam Musculoskeletal/Extremities: Joints normal Neurological: Cranial nerves II-XII WNL. ABSENT: Gross deficits, Facial droop, Focal weakness, Tremors Psychiatric: Affect distressed, Alert Psychiatric - Orientation: Oriented to: Time, Place, Person Lab/Current Medication Review: Recent Results (from the past 24 hour(s)) CBC with auto differential Collection Time: 07/21/23 10:01 AM Result Value Ref Range WBC 5.7 3.8 - 9.9 K/cumm Hgb 10.6 (L) 11.9 - 15.5 g/dL Hct 33.2 (L) 35.6 - 45.5 % Plt 188 150 - 400 K/cumm MPV 11.7 9.1 - 12.3 fL RBC 3.59 (L) 3.90 - 5.20 M/cumm MCV 92.5 81.3 - 96.4 fL MCH 29.5 27.1 - 33.3 pg MCHC 31.9 (L) 32.3 - 35.7 g/dL RDW CV 14.1 11.1 - 14.9 % RDW SD 48.1 35.7 - 48.1 fL NRBC abs 0.00 0.00 - 0.01 K/cumm Differential, auto Collection Time: 07/21/23 10:01 AM Result Value Ref Range Neutrophil abs 2.9 1.5 - 6.5 K/cumm Imm gran abs 0.0 0.0 - 0.1 K/cumm Lymphocyte abs 1.7 0.8 - 3.3 K/cumm Monocyte abs 0.9 (H) 0.2 - 0.8 K/cumm Eosinophil abs 0.2 0.0 - 0.5 K/cumm Basophil abs 0.0 0.0 - 0.1 K/cumm Neutrophil pct 51.1 % Imm gran pct 0.2 % Lymphocyte pct 29.0 % Monocyte pct 14.8 % Eosinophil pct 4.2 % Basophil pct 0.7 % CT Abdomen Pelvis W Contrast Result Date: 07/19/2023 Narrative: EXAM DESCRIPTION: CT ABDOMEN PELVIS W CONTRAST REASON FOR STUDY: Abdominal pain, acute, nonlocalized Patient states that she has been having extreme urinary and bladder pain x 3 days. States that she has been having these issues x 5 years, was told she has diverticulum on her bladder. Had a clear UA test on Sunday. Patient states she was told to come to ER for imaging. TECHNIQUE: CT scan of the abdomen and pelvis performed with intravenous and without oral contrast using helical scanning technique with dynamic intravenous contrast injection. Reconstructed coronal and sagittal MPR images reviewed. All images stored on PACS. Automated exposure control was used as a dose optimizatio n technique for this examination. CONTRAST TYPE/DOSE: 100mL of IOVERSOL 350 MG IODINE/ML INTRAVENOUS SYRINGE injected via intravenous COMPARISON: None FINDINGS: LOWER CHEST: Lung bases clear. Mild cardiomegaly. Heavy annular and coronary artery calcification. No effusion LIVER/BILIARY: Mild hepaticsteatosis. Biliary tree normal in caliber. GALLBLADDER: Normal. SPLEEN: Scattered nonspecific low-attenuation lesions. PANCREAS: Normal. ADRENAL GLANDS: Normal. KIDNEYS/URINARY TRACT: [id number] renal atrophy. Urothelial enhancement. No visible inflammation. Marked wall thickening of the bladder. GI: Stomach and small bowel appear normal. Extensive noninflamed sigmoid diverticulosis. Normal appendix. OTHER ABDOMINAL/PELVIS: Major vascular structures are grossly patent and normal in caliber. No enlarged lymph node or free fluid. MSK: Moderate disc disease and facet arthropathy. Hip and SI joint arthrosis. BODY WALL: Unremarkable. IMPRESSION: Severe bladder wall thickening and bilateralurothelial enhancement are evidence for cystitis with ascending infection. No evidence of renal parenchymal infection. THIS IS AN ELECTRONICALLY VERIFIED FINAL REPORT 07/19/2023 8:38 PM - Electronically signed by Collin Cassidy M.D. AR: TEDDY Report ID: [id number] Reading Location: [place] [address] Current Facility-Administered Medications Medication Dose Route Frequency Provider Last Rate Last Admin acetaminophen (TYLENOL) tablet 650 mg 650 mg oral Q4H PRN Gaetano Tellez MD 650 mg at 07/21/23 1747 Or acetaminophen (TYLENOL) 32 mg/mL oral liquid 650 mg 650 mg feeding tube Q4H PRN Gaetano Tellez MD Or acetaminophen (TYLENOL) suppository 650 mg 650 mg rectal Q4H PRN Gaetano Tellez MD aspirin enteric coated tablet 81 mg 81 mg oral Nightly Gaetano Tellez MD 81 mg at 07/21/232118 enoxaparin (LOVENOX) syringe 40 mg 40 mg subcutaneous Daily-2099 Gaetano Tellez MD 40 mgat 07/21/232119 estradioL (ESTRACE) 0.01 % (0.1 mg/gram) vaginal cream 2 g 2 g vaginal Once per day on Sunday Zheng Lopez MD 2 g at 07/21/231746 HYDROcodone-acetaminophen (NORCO) 5-325 mg per tablet 1 tablet 1 tablet oral Q4H PRN Gaetano Tellez MD 1 tablet at 07/21/231746 levothyroxine (SYNTHROID) tablet 25 mcg 25 mcg oral Daily - 06 Gaetano Tellez MD 25 mcg at 07/22/23632 morphine injection 2 mg 2 mg intravenous Q4H PRN Gaetano Tellez MD 2 mg at 07/21/232118 naloxone (NARCAN) injection 0.4 mg 0.4 mg intravenous Q10 Min PRN Gaetano Tellez MD polyethylene glycol (MIRALAX) packet 17 g 17 g oral Daily PRN Gaetano Tellez MD ramelteon (ROZEREM) tablet 8 mg 8 mg oral Nightly PRN Gaetano Tellez MD 8 mg at sotaloL (BETAPACE) tablet 80 mg 80 mg oral Q12H [facility] Gaetano Tellez MD 80 mg at 07/21/232118 A/P: MDM Principal Problem: Pyelonephritis Resolved Problems: No resolved hospital problems. Urinary tract infection/pyelonephritis, unlikely: UA noted, large amount of epithelial cells 21-50.However patient with UTI symptoms of dysuria. CT noted for severe bladder wall thickening and bilateral urothelial enhancement evidence for cystitis with ascending infection. No evidence of renal parenchymal infection. 0 of 4 sirs criteria. Initiated on ceftriaxone in the emergency room, continue on admission. 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 In September -ice/heat pack, avoid opiates since pain is not long lasting 07/22/2023 UTI and pyelonephritis ruled out abs discontinued Atrial fibrillation: Not chronically anticoagulated, on antiplatelet therapy. Continue sotalol. Currently normal sinus rhythm. 07/21: remains in normal sinus rhythm CAD: Continue aspirin, statin Elevated blood pressure without history of hypertension: Blood pressure 150 to 160s over 70s to 80s. Not chronically on antihypertensives, pain control for bladder infection as outlined above. Monitor and add p.r.n. antihypertensives if needed.. 07/21: bp remained stable Hyperlipidemia: Continue statin Hypothyroidism: Continue Synthroid MDM; low complexity Vince Ibrahim MD 07/22/2023 7:16 AM * Lorena Jones MD - 07/21/2023 7:57 AM CDT General Medicine Daily Progress SUBJECTIVE Chief complaint of Patient is a 82 y.o. female with a PMHx significant for atrial fibrillation not chronically anticoagulated only on antiplatelet therapy, recurrent urinary tract infection, history of recurrent C diff. Presents to the ED with a chief complaint of dysuria, bladder pain. HPI: Patient reports that for about 2 weeks she has had dysuria and increasing lower abdominal pain thatshe believes is bladder pain. She states that she has been providing urinalysis in the outpatient setting, she states that after 3 days they called on 2 different occasions to report that there was no growth and that she did not have urinary tract infection. However symptoms continued prompting presentation to the emergency room today for further evaluation. She denies fever, chills, headache, lightheadedness, dizziness, chest pain, shortness on breath, palpitations, diaphoresis. She reports history of recurrent urinary tract infection, last completed course of antibiotics about 2 3 weeks ago. She also notes history of C diff, completed fecal transplant about 4-6 weeks ago. . Interval History: Vss On rocephin Blood and urine cx pending Lower abdom cramping Has seen multiple urologist, has appt w Dr Naveed Mcbride at [facility] 07/20 Vss No growth in blood cx And no clinically significant growth on uCx Abx stopped by ID Topical estrogen recommended Pt has intermittent pelvic pain at opening of vaginal canal and deep inside Pain even w/o urination Has experienced this for years, just completed 4-5 sessions of pelvic floor PT Has some vaginal discharge, unchanged OBJECTIVE Vitals: 24hr Min/Max: Temp Min: 36.5 ??C (97.7 ??F) Max: 37 ??C (98.6 ??F) Pulse Min: 51 Max: 67 BP Min: 110/56 Max: 143/67 Resp Min: 16 Max: 18 SpO2 Min: 90 % Max: 97 % Most Recent : Vitals: 07/21/23 0750 BP: 143/67 Pulse: 55 Resp: 18 Temp: 36.6 ??C (97.9 ??F) SpO2: 92% I/O last 2 completed shifts: In: - Out: 950 [Urine:950] No intake/output data recorded. Physical Exam: General Exam: In no acute distress Skin: Dry, Warm. No abrasion/skin tear at at labia, no discharge seen, no foul smell, tender to light touch at vaginal opening Head: Atraumatic, Normocephalic Ears, Nose, Mouth, Throat: Ext. ears & nose normal, Moist mucous membranes Neck: Supple Cardiovascular: Normal range, Regular rhythm, S1S2 normal. ABSENT: Edema Respiratory: CTA bilaterally, Effort normal ABSENT: Crackles, Rhonchi Abdomen: Bowel sounds present, Soft. LLQ abdom pain, no significant SP discomfort on exam Musculoskeletal/Extremities: Joints normal Neurological: Cranial nerves II-XII WNL. ABSENT: Gross deficits, Facial droop, Focal weakness, Tremors Psychiatric: Affect distressed, Alert Psychiatric - Orientation: Oriented to: Time, Place, Person Lab/Current Medication Review: No results found for this or any previous visit (from the past 24 hour(s)). CT Abdomen Pelvis W Contrast Result Date: 07/19/2023 Narrative: EXAM DESCRIPTION: CT ABDOMEN PELVIS W CONTRAST REASON FOR STUDY: Abdominal pain, acute, nonlocalized Patient states that she has been having extreme urinary and bladder pain x 3 days. States that she has been having these issues x 5 years, was told she has diverticulum on her bladder. Had a clear UA test on Sunday. Patient states she was told to come to ER for imaging. TECHNIQUE: CT scan of the abdomen and pelvis performed with intravenous and without oral contrast using helical scanning technique with dynamic intravenous contrast injection. Reconstructed coronal and sagittal MPR images reviewed. All images stored on PACS. Automated exposure control was used as a dose optimizatio n technique for this examination. CONTRAST TYPE/DOSE: 100mL of IOVERSOL 350 MG IODINE/ML INTRAVENOUS SYRINGE injected via intravenous COMPARISON: None FINDINGS: LOWER CHEST: Lung bases clear. Mild cardiomegaly. Heavy annular and coronary artery calcification. No effusion LIVER/BILIARY: Mild hepaticsteatosis. Biliary tree normal in caliber. GALLBLADDER: Normal. SPLEEN: Scattered nonspecific low-attenuation lesions. PANCREAS: Normal. ADRENAL GLANDS: Normal. KIDNEYS/URINARY TRACT: [id number] renal atrophy. Urothelial enhancement. No visible inflammation. Marked wall thickening of the bladder. GI: Stomach and small bowel appear normal. Extensive noninflamed sigmoid diverticulosis. Normal appendix. OTHER ABDOMINAL/PELVIS: Major vascular structures are grossly patent and normal in caliber. No enlarged lymph node or free fluid. MSK: Moderate disc disease and facet arthropathy. Hip and SI joint arthrosis. BODY WALL: Unremarkable. IMPRESSION: Severe bladder wall thickening and bilateralurothelial enhancement are evidence for cystitis with ascending infection. No evidence of renal parenchymal infection. THIS IS AN ELECTRONICALLY VERIFIED FINAL REPORT 07/19/2023 8:38 PM - Electronically signed by Collin Cassidy M.D. AR: TEDDY Report ID: [id number] Reading Location: [place] [address] Current Facility-Administered Medications Medication Dose Route Frequency Provider Last Rate Last Admin acetaminophen (TYLENOL) tablet 650 mg 650 mg oral Q4H PRN Gaetano Tellez MD Or acetaminophen (TYLENOL) 32 mg/mL oral liquid 650 mg 650 mg feeding tube Q4H PRN Gaetano Tellez MD Or acetaminophen (TYLENOL) suppository 650 mg 650 mg rectal Q4H PRN Gaetano Tellez MD aspirin enteric coated tablet 81 mg 81 mg oral Nightly Gaetano Tellez MD 81 mg at 07/20/232018 enoxaparin (LOVENOX) syringe 40 mg 40 mg subcutaneous Daily-2099 Gaetano Tellez MD 40 mgat 07/20/232022 HYDROcodone-acetaminophen (NORCO) 5-325 mg per tablet 1 tablet 1 tablet oral Q4H PRN Gaetano Tellez MD 1 tablet at 07/21/23 05 levothyroxine (SYNTHROID) tablet 25 mcg 25 mcg oral Daily - 0600 Gaetano Tellez MD 25 mcg at 07/21/23 05 morphine injection 2 mg 2 mg intravenous Q4H PRN Gaetano Tellez MD 2 mg at 07/21/23 0410 naloxone (NARCAN) injection 0.4 mg 0.4 mg intravenous Q10 Min PRN Gaetano Tellez MD polyethylene glycol (MIRALAX) packet 17 g 17 g oral Daily PRN Gaetano Tellez MD ramelteon (ROZEREM) tablet 8 mg 8 mg oral Nightly PRN Gaetano Tellez MD 8 mg at sotaloL (BETAPACE) tablet 80 mg 80 mg oral Q12H [facility] Gaetano Tellez MD 80 mg at 07/20/232018 A/P: MDM Principal Problem: Pyelonephritis Resolved Problems: No resolved hospital problems. Urinary tract infection/pyelonephritis, unlikely: UA noted, large amount of epithelial cells 21-50.However patient with UTI symptoms of dysuria. CT noted for severe bladder wall thickening and bilateral urothelial enhancement evidence for cystitis with ascending infection. No evidence of renal parenchymal infection. 0 of 4 sirs criteria. Initiated on ceftriaxone in the emergency room, continue on admission. 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 In September -ice/heat pack, avoid opiates since pain is not long lasting Atrial fibrillation: Not chronically anticoagulated, on antiplatelet therapy. Continue sotalol. Currently normal sinus rhythm. CAD: Continue aspirin, statin Elevated blood pressure without history of hypertension: Blood pressure 150 to 160s over 70s to 80s. Not chronically on antihypertensives, pain control for bladder infection as outlined above. Monitor and add p.r.n. antihypertensives if needed.. Hyperlipidemia: Continue statin Hypothyroidism: Continue Synthroid Voice recognition software MMSuperplayer Fluency Direct was used dictate and transcribe this document. Food And Beverage Operations Manager variances may occur. Despite proofreading, typographical errors may occur. For patients or family members viewing this note through [employer]: This note was written as a communication tool between healthcare providers and may contain technical language, terminology and abbreviations that is difficult to interpret without advanced medical training. If you have questions or concerns regarding what is written in this note, please request to speak with the primary medical team taking care of you or your family member. Lorena Jones MD 07/21/2023 7:57 AM * Daniela Pop, PT - 07/20/2023 1:42 PM CDT Physical Therapy 07/20/23 1342 General Chart Reviewed Yes Session Type Evaluation PT Received On 07/20/23 Safe Environment Arm band checked;Patient found in supine Subjective Agreeable to Therapy Additional Pertinent History DX: pyelonephritis Family/Caregiver Present No Physical Therapy-Patient Goal Less pain, and disch home. 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 Fall within the last 6 months Yes Fall within the last 6 months comment 1 fall Pain Assessment Pain Assessment Stephenson-Quigley FACES Stephenson-Quigley FACES Pain Rating 2 Pain Location Abdomen Pain Orientation Lower Cognition Overall Cognitive Status WFL Current communication Appears Intact Orientation Oriented X4 (person, place, time, situation) Following Commands Follows all commands and directions without difficulty Safety Judgment Good awareness of safety precautions Compliance/Behavior Easy to engage Bed Mobility 1 Bed Mobility From 1 Supine Bed Mobility Type 1 To Bed Mobility to 1 Edge of bed Level of Assistance 1 Independent Transfer 1 Transfer From 1 Sit Transfer Type 1 To and from Transfer to 1 Stand Technique 1 Sit to stand;Stand to sit Transfer Device 1 Wheeled walker Transfer Level of Assistance 1 Independent Trials/Comments 1 pt willing to use walker since she hasn't been up wallking today Ambulation 1 Distance (ft) 1 225 Surface 1 Level tile Device 1 Wheeled walker Assistance 1 Independent Quality of Gait 1 gait is steady RUE Assessment RUE Assessment WFL LUE Assessment LUE Assessment WFL RLE Assessment RLE Assessment WFL LLE Assessment LLE Assessment WFL Safe Environment End of Therapy Session Safe Environment End of Therapy Session Patient left in chair;Call light within reach;Overbed tablewithin reach;Bed in lowest position with wheels locked Assessment Prognosis Good Barriers to Discharge None Plan Plan Discharge;If this is the last note, consider this the discharge summary Recommendation/Plan PT Recommendation/Plan Home with intermittent assist PT Frequency during current admission One time visit (Discharge from this service) PT - OK to Discharge Yes PT Evaluation Complete Yes * Mi Casanova LCSW - 07/20/2023 10:19 AM CDT IP Social Work Assessment Social History: Prior to admission the patient was independent and lived alone. Home DME: N/A Impressions: HOSPICE TEAM LEAD and CM met with patient at bedside to discuss dc planning. Patient was A&Ox 4, pleasant, and cooperative. Based on a comprehensive family assessment, assistance with instrumental activities of daily livingafter discharge will be provided by Self. Patient has the knowledge of available resources and that combining them with their existing resources will suffice and sustain care at discharge. The treatment team is aware of this information. Allare in agreement with the aftercare plan. Problem: Patient identified for social work consult due to other Patient identified for SW consult due to low readmission score (8%). Goal: Social work will work with Maria A Rodriguezezequiel and family for discharge planning needs.Social work assess for possible complex discharge concerns. Provide resources and education to help reduce readmission and improve longterm health. Social Work Plan: No social service needs identified at this time. CM following for discharge planning and progression of care and can consult ss if needs arise Communication: Communications Important Message from Medicare notice given to patient?: Yes (07/19) (07/20/23 1025) Additional Information: Patient is normally independent. She voiced frustration that MD's have not been able dx her frequent UTI's and manage her pain. Per patient, she has been living with this chronic pain for 5 years. Patient is very involved and knowledgeable about her healthcare. Primary Care Provider: Phan Garvin MD Assessment: Discharge Planning Support System: Children, Family members, Friends/neighbors Anticipated discharge level of care: Private residence Does the patient need discharge transport arranged?: No Support System: Children, Family members, Friends/neighbors Anticipated discharge level of care: Private residence (07/20/23 1005) Social Determinates of Health: Transportation Needs: No Transportation Needs (07/20/2023) PRAPARE - Transportation Lack of Transportation (Medical): No Lack of Transportation (Non-Medical): No Social Connections: Socially Isolated (07/20/2023) Social Connection and Isolation Panel [NHANES] Frequency of Communication with Friends and Family: More than three times a week Frequency of Social Gatherings with Friends and Family: More than three times a week Attends [employer] Services: Never Active Member of Clubs or Organizations: No Attends Club or Organization Meetings: Never Marital Status: Food Insecurity: No Food Insecurity (07/20/2023) Hunger Vital Sign Worried About Running Out of Food in the Last Year: Never true Ran Out of Food in the Last Year: Never true Housing Stability: Low Risk (07/20/2023) Housing Stability Vital Sign Unable to Pay for Housing in the Last Year: No Number of Places Lived in the Last Year: 1 Unstable Housing in the Last Year: No Financial Resource Strain: Low Risk (07/20/2023) Overall Financial Resource Strain (CARDIA) Difficulty of Paying Living Expenses: Not hard at all Questions encouraged and answered. Will continue to follow progression of care and monitor for further discharge needs. Mi Casanova LCSW 07/20/2023 12:20 PM * Lorena Jones MD - 07/20/2023 8:08 AM CDT General Medicine Daily Progress SUBJECTIVE Chief complaint of Patient is a 82 y.o. female with a PMHx significant for atrial fibrillation not chronically anticoagulated only on antiplatelet therapy, recurrent urinary tract infection, history of recurrent C diff. Presents to the ED with a chief complaint of dysuria, bladder pain. HPI: Patient reports that for about 2 weeks she has had dysuria and increasing lower abdominal pain thatshe believes is bladder pain. She states that she has been providing urinalysis in the outpatient setting, she states that after 3 days they called on 2 different occasions to report that there was no growth and that she did not have urinary tract infection. However symptoms continued prompting presentation to the emergency room today for further evaluation. She denies fever, chills, headache, lightheadedness, dizziness, chest pain, shortness on breath, palpitations, diaphoresis. She reports history of recurrent urinary tract infection, last completed course of antibiotics about 2 3 weeks ago. She also notes history of C diff, completed fecal transplant about 4-6 weeks ago. . Interval History: Vss On rocephin Blood and urine cx pending Lower abdom cramping Has seen multiple urologist, has appt cate Lucio I September at [facility] OBJECTIVE Vitals: 24hr Min/Max: Temp Min: 36.8 ??C (98.2 ??F) Max: 37 ??C (98.6 ??F) Pulse Min: 58 Max: 62 BP Min: 140/75 Max: 162/76 Resp Min: 16 Max: 20 SpO2 Min: 94 % Max: 98 % Most Recent : Vitals: 07/20/23 0738 BP: 140/75 Pulse: 60 Resp: 18 Temp: 36.8 ??C (98.2 ??F) SpO2: 94% I/O last 2 completed shifts: In: - Out: 200 [Urine:200] No intake/output data recorded. Physical Exam: General Exam: In no acute distress Skin: Dry, Warm. ABSENT: Jaundice, Rash Head: Atraumatic, Normocephalic Ears, Nose, Mouth, Throat: Ext. ears & nose normal, Moist mucous membranes Neck: Supple Cardiovascular: Normal range, Regular rhythm, S1S2 normal. ABSENT: Edema Respiratory: CTA bilaterally, Effort normal ABSENT: Crackles, Rhonchi Abdomen: Bowel sounds present, Soft. LLQ abdom pain, no significant SP discomfort on exam Musculoskeletal/Extremities: Joints normal Neurological: Cranial nerves II-XII WNL. ABSENT: Gross deficits, Facial droop, Focal weakness, Tremors Psychiatric: Affect appropriate, Alert Psychiatric - Orientation: Oriented to: Time, Place, Person Lab/Current Medication Review: Recent Results (from the past 24 hour(s)) Comprehensive metabolic panel Collection Time: 07/19/23 4:42 PM Result Value Ref Range Sodium 137 135 - 145 mmol/L Potassium, pl 4.0 3.3 - 4.9 mmol/L Chloride 101 97 - 110 mmol/L CO2 23 22 - 32 mmol/L Anion gap 13 2 - 15 mmol/L BUN 21 6 - 25 mg/dL Creatinine 0.80 0.60 - 1.10 mg/dL Glucose 101 70 - 199 mg/dL Calcium 9.0 8.5 - 10.3 mg/dL Bilirubin, total 0.5 0.1 - 1.2 mg/dL Protein, pl 6.7 6.5 - 8.5 g/dL Albumin 3.6 3.5 - 5.0 g/dL Alk phos 117 40 - 130 Units/L ALT 22 7 - 45 Units/L AST 23 10 - 45 Units/L CBC with auto differential Collection Time: 07/19/23 4:42 PM Result Value Ref Range WBC 7.3 3.8 - 9.9 K/cumm Hgb 11.6 (L) 11.9 - 15.5 g/dL Hct 35.7 35.6 - 45.5 % Plt 200 150 - 400 K/cumm MPV 10.9 9.1 - 12.3 fL RBC 3.95 3.90 - 5.20 M/cumm MCV 90.4 81.3 - 96.4 fL MCH 29.4 27.1 - 33.3 pg MCHC 32.5 32.3 - 35.7 g/dL RDW CV 14.4 11.1 - 14.9 % RDW SD 47.6 35.7 - 48.1 fL NRBC abs 0.00 0.00 - 0.01 K/cumm Differential, auto Collection Time: 07/19/23 4:42 PM Result Value Ref Range Neutrophil abs 3.9 1.5 - 6.5 K/cumm Imm gran abs 0.0 0.0 - 0.1 K/cumm Lymphocyte abs 2.2 0.8 - 3.3 K/cumm Monocyte abs 1.0 (H) 0.2 - 0.8 K/cumm Eosinophil abs 0.2 0.0 - 0.5 K/cumm Basophil abs 0.0 0.0 - 0.1 K/cumm Neutrophil pct 52.9 % Imm gran pct 0.3 % Lymphocyte pct 29.8 % Monocyte pct 13.8 % Eosinophil pct 2.7 % Basophil pct 0.5 % eGFR Collection Time: 07/19/23 4:42 PM Result Value Ref Range eGFR 73 >=60 mL/min/1.73 m2 Urinalysis reflex to microscopic and culture Urine Collection Time: 07/19/23 4:51 PM Specimen: Urine Result Value Ref Range Color, ur Yellow Yellow Clarity, ur Turbid (A) Clear Specific gravity, ur 1.010 1.003 - 1.030 pH, urine 7.0 Protein, ur ql 2+ (A) Negative Glucose, ur ql Negative Negative Ketones, ur Negative Negative Bilirubin, ur 1+ (A) Negative Blood, ur 2+ (A) Negative Urobilinogen, ur 2.0 (A) <2.0 mg/dL Nitrite, ur Positive (A) Negative Leukocyte esterase, ur 4+ (A) Negative UA reflex comment Reflex to microscopic UA will be performed. Urinalysis, microscopic only Collection Time: 07/19/23 4:51 PM Result Value Ref Range WBC, ur >50 (A) 0 - 5 /HPF RBC, ur >50 (A) 0 - 2 /HPF Epithelial cells, squamous, ur 21-50 (A) 0 - 5 /HPF Culture Reflex Comment Reflex to urine culture will be performed. Comprehensive metabolic panel Collection Time: 07/20/23 5:03 AM Result Value Ref Range Sodium 136 135 - 145 mmol/L Potassium, pl 4.1 3.3 - 4.9 mmol/L Chloride 104 97 - 110 mmol/L CO2 20 (L) 22 - 32 mmol/L Anion gap 12 2 - 15 mmol/L BUN 20 6 - 25 mg/dL Creatinine 0.60 0.60 - 1.10 mg/dL Glucose 97 70 - 199 mg/dL Calcium 8.5 8.5 - 10.3 mg/dL Bilirubin, total 0.3 0.1 - 1.2 mg/dL Protein, pl 5.8 (L) 6.5 - 8.5 g/dL Albumin 3.0 (L) 3.5 - 5.0 g/dL Alk phos 100 40 - 130 Units/L ALT 17 7 - 45 Units/L AST 21 10 - 45 Units/L Magnesium Collection Time: 07/20/23 5:03 AM Result Value Ref Range Magnesium 1.7 1.4 - 2.5 mg/dL CBC without differential Collection Time: 07/20/23 5:03 AM Result Value Ref Range WBC 7.2 3.8 - 9.9 K/cumm Hgb 10.8 (L) 11.9 - 15.5 g/dL Hct 35.1 (L) 35.6 - 45.5 % Plt 158 150 - 400 K/cumm MPV 11.8 9.1 - 12.3 fL RBC 3.67 (L) 3.90 - 5.20 M/cumm MCV 95.6 81.3 - 96.4 fL MCH 29.4 27.1 - 33.3 pg MCHC 30.8 (L) 32.3 - 35.7 g/dL RDW CV 14.4 11.1 - 14.9 % RDW SD 50.4 (H) 35.7 - 48.1 fL NRBC abs 0.00 0.00 - 0.01 K/cumm eGFR Collection Time: 07/20/23 5:03 AM Result Value Ref Range eGFR 88 >=60 mL/min/1.[address] Abdomen Pelvis W Contrast Result Date: 07/19/2023 Narrative: EXAM DESCRIPTION: CT ABDOMEN PELVIS W CONTRAST REASON FOR STUDY: Abdominal pain, acute, nonlocalized Patient states that she has been having extreme urinary and bladder pain x 3 days. States that she has been having these issues x 5 years, was told she has diverticulum on her bladder. Had a clear UA test on Sunday. Patient states she was told to come to ER for imaging. TECHNIQUE: CT scan of the abdomen and pelvis performed with intravenous and without oral contrast using helical scanning technique with dynamic intravenous contrast injection. Reconstructed coronal and sagittal MPR images reviewed. All images stored on PACS. Automated exposure control was used as a dose optimizatio n technique for this examination. CONTRAST TYPE/DOSE: 100mL of IOVERSOL 350 MG IODINE/ML INTRAVENOUS SYRINGE injected via intravenous COMPARISON: None FINDINGS: LOWER CHEST: Lung bases clear. Mild cardiomegaly. Heavy annular and coronary artery calcification. No effusion LIVER/BILIARY: Mild hepaticsteatosis. Biliary tree normal in caliber. GALLBLADDER: Normal. SPLEEN: Scattered nonspecific low-attenuation lesions. PANCREAS: Normal. ADRENAL GLANDS: Normal. KIDNEYS/URINARY TRACT: Ldhe-em-hsckrymm renal atrophy. Urothelial enhancement. No visible inflammation. Marked wall thickening of the bladder. GI: Stomach and small bowel appear normal. Extensive noninflamed sigmoid diverticulosis. Normal appendix. OTHER ABDOMINAL/PELVIS: Major vascular structures are grossly patent and normal in caliber. No enlarged lymph node or free fluid. MSK: Moderate disc disease and facet arthropathy. Hip and SI joint arthrosis. BODY WALL: Unremarkable. IMPRESSION: Severe bladder wall thickening and bilateralurothelial enhancement are evidence for cystitis with ascending infection. No evidence of renal parenchymal infection. THIS IS AN ELECTRONICALLY VERIFIED FINAL REPORT 07/19/2023 8:38 PM - Electronically signed by Collin Cassidy M.D. AR: TEDDY Report ID: [id number] Reading Location: [place] [address] Current Facility-Administered Medications Medication Dose Route Frequency Provider Last Rate Last Admin acetaminophen (TYLENOL) tablet 650 mg 650 mg oral Q4H PRN Gaetano Tellez MD Or acetaminophen (TYLENOL) 32 mg/mL oral liquid 650 mg 650 mg feeding tube Q4H PRN Gaetano Tellez MD Or acetaminophen (TYLENOL) suppository 650 mg 650 mg rectal Q4H PRN Gaetano Tellez MD aspirin enteric coated tablet 81 mg 81 mg oral Nightly Gaetano Tellez MD cefTRIAXone (ROCEPHIN) 2,000 mg/20 mL in sterile water (premix) 2,000 mg 2,000 mg intravenous Nightly Gaetano Tellez MD enoxaparin (LOVENOX) syringe 40 mg 40 mg subcutaneous Daily-2100 Geatano Tellez MD 40 mgat 07/20/23 0102 HYDROcodone-acetaminophen (NORCO) 5-325 mg per tablet 1 tablet 1 tablet oral Q4H PRN Gaetano Tellez MD levothyroxine (SYNTHROID) tablet 25 mcg 25 mcg oral Daily - 0600 Gaetano Tellez MD 25 mcg at 07/20/23 0432 morphine injection 2 mg 2 mg intravenous Q4H PRN Gaetano Tellez MD 2 mg at 07/20/23 0422 naloxone (NARCAN) injection 0.4 mg 0.4 mg intravenous Q10 Min PRN Gaetano Tellez MD polyethylene glycol (MIRALAX) packet 17 g 17 g oral Daily PRN Gaetano Tellez MD ramelteon (ROZEREM) tablet 8 mg 8 mg oral Nightly PRN Gaetano Tellez MD 8 mg at 139 sotaloL (BETAPACE) tablet 80 mg 80 mg oral Q12H [facility] Gaetano Tellez MD A/P: [facility] Principal Problem: Pyelonephritis Resolved Problems: No resolved hospital problems. Urinary tract infection/pyelonephritis: UA noted, large amount of epithelial cells 21-50. However patient with UTI symptoms of dysuria. CT noted for severe bladder wall thickening and bilateral urothelial enhancement evidence for cystitis with ascending infection. No evidence of renal parenchymal infection. 0 of 4 sirs criteria. Initiated on ceftriaxone in the emergency room, continue on admission. - f/up urine culture, blood cx Atrial fibrillation: Not chronically anticoagulated, on antiplatelet therapy. Continue sotalol. Currently normal sinus rhythm. CAD: Continue aspirin, statin Elevated blood pressure without history of hypertension: Blood pressure 150 to 160s over 70s to 80s. Not chronically on antihypertensives, pain control for bladder infection as outlined above. Monitor and add p.r.n. antihypertensives if needed.. Hyperlipidemia: Continue statin Hypothyroidism: Continue [employer] Voice recognition software CRMnext Direct was used dictate and transcribe this document. Food And Beverage Operations Manager variances may occur. Despite proofreading, typographical errors may occur. For patients or family members viewing this note through [employer]: This note was written as a communication tool between healthcare providers and may contain technical language, terminology and abbreviations that is difficult to interpret without advanced medical training. If you have questions or concerns regarding what is written in this note, please request to speak with the primary medical team taking care of you or your family member. Lorena Jones MD 07/20/2023 8:08 AM documented in this encounter H&P Notes * Gaetano Tellez MD - 07/19/2023 9:24 PM CDT Images from the original note were not included. History and Physical Date of Service: 07/19/2023 Primary Care Physician: Phan Garvin MD [phone] CHIEF COMPLAINT: Patient is a 82 y.o. female with a PMHx significant for atrial fibrillation not chronically anticoagulated only on antiplatelet therapy, recurrent urinary tract infection, history of recurrent C diff. Presents to the ED with a chief complaint of dysuria, bladder pain. HPI: Patient reports that for about 2 weeks she has had dysuria and increasing lower abdominal pain thatshe believes is bladder pain. She states that she has been providing urinalysis in the outpatient setting, she states that after 3 days they called on 2 different occasions to report that there was no growth and that she did not have urinary tract infection. However symptoms continued prompting presentation to the emergency room today for further evaluation. She denies fever, chills, headache, lightheadedness, dizziness, chest pain, shortness on breath, palpitations, diaphoresis. She reports history of recurrent urinary tract infection, last completed course of antibiotics about 2 3 weeks ago. She also notes history of C diff, completed fecal transplant about 4-6 weeks ago. Past Medical History: Diagnosis Date Atrial fibrillation ([facility]/HCC) ([facility]) 03/01/2022 Hypercholesteremia Osteoporosis Recurrent UTI Past Surgical History: Procedure Laterality Date BACK SURGERY 1993 BLADDER FULGURATION 04/11/2023 and bx BLADDER SURGERY 2018 COLONOSCOPY multiple (Not in a hospital admission) Allergies Allergen Reactions Prednisone Rash Social History Tobacco Use Smoking status: Never [...] Father Anesthesia problems Neg Hx Review of Systems: Review of Systems Constitutional: Positive for appetite change (decreased) and fatigue. Negative for chills, diaphoresis and fever. HENT: Negative for congestion. Eyes: Negative for pain and redness. Respiratory: Negative for cough and shortness of breath. Cardiovascular: Negative for chest pain, palpitations and leg swelling. Gastrointestinal: Positive for abdominal pain. Negative for abdominal distention, blood in stool, constipation, diarrhea, nausea and vomiting. Endocrine: Negative for polydipsia and polyphagia. Genitourinary: Positive for dysuria. Negative for hematuria. Musculoskeletal: Negative for arthralgias and back pain. Skin: Negative for color change and pallor. Neurological: Negative for light-headedness and headaches. OBJECTIVE: Vitals: Arrival Vitals [07/19/23 1620] Temp 37 ??C (98.6 ??F) Pulse 62 Resp 20 BP 150/80 SpO2 96 % Temp src Oral Heart Rate Source Patient Position BP Location FiO2 (%) Most Recent : Vitals: 07/19/23 1620 07/19/23 2120 BP: 150/80 160/77 Pulse: 62 58 Resp: 20 18 Temp: 37 ??C (98.6 ??F) TempSrc: Oral SpO2: 96% 98% Weight: 74 kg (163 lb 2.3 oz) Height: 160 cm (5' 3 ) Physical Exam: Physical Exam Vitals reviewed. Constitutional: General: She is not in acute distress. Appearance: She is not ill-appearing, toxic-appearing or diaphoretic. HENT: Head: Normocephalic and atraumatic. Right Ear: External ear normal. Left Ear: External ear normal. Nose: Nose normal. Mouth/Throat: Mouth: Mucous membranes are moist. Eyes: Extraocular Movements: Extraocular movements intact. Pupils: Pupils are equal, round, and reactive to light. Cardiovascular: Rate and Rhythm: Normal rate and regular rhythm. Pulses: Normal pulses. Heart sounds: Normal heart sounds. Pulmonary: Effort: Pulmonary effort is normal. Breath sounds: Normal breath sounds. Abdominal: General: There is no distension. Palpations: Abdomen is soft. Tenderness: There is no abdominal tenderness. Musculoskeletal: General: Normal range of motion. Cervical back: Normal range of motion and neck supple. Right lower leg: No edema. Left lower leg: No edema. Skin: General: Skin is warm and dry. Neurological: General: No focal deficit present. Mental Status: She is alert and oriented to person, place, and time. Psychiatric: Mood and Affect: Mood normal. Behavior: Behavior normal. Lab/Radiology/Diagnostic Review: Recent Results (from the past 24 hour(s)) Comprehensive metabolic panel Collection Time: 07/19/23 4:42 PM Result Value Ref Range Sodium 137 135 - 145 mmol/L Potassium, pl 4.0 3.3 - 4.9 mmol/L Chloride 101 97 - 110 mmol/L CO2 23 22 - 32 mmol/L Anion gap 13 2 - 15 mmol/L BUN 21 6 - 25 mg/dL Creatinine 0.80 0.60 - 1.10 mg/dL Glucose 101 70 - 199 mg/dL Calcium 9.0 8.5 - 10.3 mg/dL Bilirubin, total 0.5 0.1 - 1.2 mg/dL Protein, pl 6.7 6.5 - 8.5 g/dL Albumin 3.6 3.5 - 5.0 g/dL Alk phos 117 40 - 130 Units/L ALT 22 7 - 45 Units/L AST 23 10 - 45 Units/L CBC with auto differential Collection Time: 07/19/23 4:42 PM Result Value Ref Range WBC 7.3 3.8 - 9.9 K/cumm Hgb 11.6 (L) 11.9 - 15.5 g/dL Hct 35.7 35.6 - 45.5 % Plt 200 150 - 400 K/cumm MPV 10.9 9.1 - 12.3 fL RBC 3.95 3.90 - 5.20 M/cumm MCV 90.4 81.3 - 96.4 fL MCH 29.4 27.1 - 33.3 pg MCHC 32.5 32.3 - 35.7 g/dL RDW CV 14.4 11.1 - 14.9 % RDW SD 47.6 35.7 - 48.1 fL NRBC abs 0.00 0.00 - 0.01 K/cumm Differential, auto Collection Time: 07/19/23 4:42 PM Result Value Ref Range Neutrophil abs 3.9 1.5 - 6.5 K/cumm Imm gran abs 0.0 0.0 - 0.1 K/cumm Lymphocyte abs 2.2 0.8 - 3.3 K/cumm Monocyte abs 1.0 (H) 0.2 - 0.8 K/cumm Eosinophil abs 0.2 0.0 - 0.5 K/cumm Basophil abs 0.0 0.0 - 0.1 K/cumm Neutrophil pct 52.9 % Imm gran pct 0.3 % Lymphocyte pct 29.8 % Monocyte pct 13.8 % Eosinophil pct 2.7 % Basophil pct 0.5 % eGFR Collection Time: 07/19/23 4:42 PM Result Value Ref Range eGFR 73 >=60 mL/min/1.73 m2 Urinalysis reflex to microscopic and culture Urine Collection Time: 07/19/23 4:51 PM Specimen: Urine Result Value Ref Range Color, ur Yellow Yellow Clarity, ur Turbid (A) Clear Specific gravity, ur 1.010 1.003 - 1.030 pH, urine 7.0 Protein, ur ql 2+ (A) Negative Glucose, ur ql Negative Negative Ketones, ur Negative Negative Bilirubin, ur 1+ (A) Negative Blood, ur 2+ (A) Negative Urobilinogen, ur 2.0 (A) <2.0 mg/dL Nitrite, ur Positive (A) Negative Leukocyte esterase, ur 4+ (A) Negative UA reflex comment Reflex to microscopic UA will be performed. Urinalysis, microscopic only Collection Time: 07/19/23 4:51 PM Result Value Ref Range WBC, ur >50 (A) 0 - 5 /HPF RBC, ur >50 (A) 0 - 2 /HPF Epithelial cells, squamous, ur 21-50 (A) 0 - 5 /HPF Culture Reflex Comment Reflex to urine culture will be performed. CT Abdomen Pelvis W Contrast Result Date: 07/19/2023 LOWER CHEST: Lung bases clear. Mild cardiomegaly. Heavy annular and coronary artery calcification. No effusion LIVER/BILIARY: Mild hepatic steatosis. Biliary tree normal in caliber. GALLBLADDER: Normal. SPLEEN: Scattered nonspecific low-attenuation lesions. PANCREAS: Normal. ADRENAL GLANDS: Normal. KIDNEYS/URINARY TRACT: Tykf-ge-oarrdckl renal atrophy. Urothelial enhancement. No visible inflammation. Marked wall thickening of the bladder. GI: Stomach and small bowel appear normal. Extensive noninflamed sigmoid diverticulosis. Normal appendix. OTHER ABDOMINAL/PELVIS: Major vascular structures are grossly patent and normal in caliber. No enlarged lymph node or free fluid. MSK: Moderate disc disease and facet arthropathy. Hip and SI joint arthrosis. BODY WALL: Unremarkable. IMPRESSION: Severe bladder wall thickening and bilateral urothelial enhancement are evidence for cystitis with ascending infection. No evidence of renal parenchymal infection. ASSESSMENT/PLAN: Principal Problem: Pyelonephritis Resolved Problems: No resolved hospital problems. Urinary tract infection/pyelonephritis: UA noted, large amount of epithelial cells 21-50. However patient with UTI symptoms of dysuria. CT noted for severe bladder wall thickening and bilateral urothelial enhancement evidence for cystitis with ascending infection. No evidence of renal parenchymal infection. 0 of 4 sirs criteria. Initiated on ceftriaxone in the emergency room, continue on admission. Follow up with urine culture data when available. Continue supportive measures of pain and nauseacontrol. Atrial fibrillation: Not chronically anticoagulated, on antiplatelet therapy. Continue sotalol. Currently normal sinus rhythm. CAD: Continue aspirin, statin Elevated blood pressure without history of hypertension: Blood pressure 150 to 160s over 70s to 80s. Not chronically on antihypertensives, pain control for bladder infection as outlined above. Monitor and add p.r.n. antihypertensives if needed.. Hyperlipidemia: Continue statin Hypothyroidism: Continue Synthroid Overweight: BMI 28. ESTIMATED LENGTH OF STAY: Greater than 2 midnights My total encounter time on 02/14/2023 was 60 minutes which was spent in the activities documented inthe note. This includes time spent prior to the visit and after the visit in direct care of the patient. This time does not include time spent in any separately reportable services. Medical Decision Making Complexity: Moderate DVT prophylaxis: High-risk, utilize subcutaneous Lovenox for VTE prophylaxis Do not resuscitate do not intubate per discussion with patient at bedside Voice recognition software MModal Fluency Direct may have been used to dictate and transcribe this document. Food And Beverage Operations Manager variances may occur. Despite proofreading, typographical errors may occur. Gaetano Tellez MD 07/19/2023 9:24 PM documented in this encounter Consult Notes * Zheng Lopez MD - 07/20/2023 8:50 PM CDTAssociated Order(s): IP CONSULT TO INFECTIOUS DISEASES Infectious Disease Consult Requesting physician: Dr. Gaetano Tellez Date of consultation: 07/20/2023 Reason for consultation: Dysuria and pyuria. HPI: 82-year-old female with significant past medical history for atrial fibrillation, osteoporosis, hypercholesteremia, recurrent urinary tract infection versus chronic dysuria and recent history of C diff colitis requiring fecal transplant recently by Dr. Puckett at [facility]. Patient prese nted to the emergency room due to dysuria with severe bladder burning pain with urination. No flankpain. No nausea or vomiting. No fevers. WBC count was within normal limit. Urine and blood cultureshave remained-24 hours. Urinalysis showed positive nitrite and leukocyte esterase with pyuria. No diarrhea Past Medical History: Diagnosis Date Atrial fibrillation (CMS/HCC) (HCC) 03/01/2022 Hypercholesteremia Osteoporosis Recurrent UTI Past Surgical History: Procedure Laterality Date BACK SURGERY 1993 BLADDER FULGURATION 04/11/2023 and bx BLADDER SURGERY 2017 COLONOSCOPY multiple HOME MEDICATIONS : ascorbic acid (VITAMIN C) 500 mg tablet,chewable aspirin 81 mg enteric coated tablet cholecalciferol (VITAMIN D-3) 2000 unit capsule cranberry 400 mg capsule diphenhydrAMINE (Sleep Aid, diphenhydrAMINE,) 25 mg capsule estradioL (ESTRACE) 0.01 % (0.1 mg/gram) vaginal cream levothyroxine (SYNTHROID) 25 mcg tablet magnesium gluconate 200 mg tablet sotaloL (BETAPACE) 80 mg tablet vit C,W-Ca-jwipe-lutein-zeaxan (PreserVision AREDS-2) 250-90-40-1 mg capsule zinc 50 mg tablet cefdinir (OMNICEF) 300 mg capsule methenamine (HIPREX) 1 gram tablet nitrofurantoin monohydrate (MACROBID) 100 mg capsule phenazopyridine (PYRIDIUM) 100 mg tablet rosuvastatin (CRESTOR) 10 mg tablet vancomycin (VANCOCIN) 125 mg capsule acidophilus-pectin, citrus 100 million cell-10 mg capsule turmeric root extract 500 mg capsule Current Facility-Administered Medications Ordered in [facility] Medication Dose Route Frequency Provider Last Rate Last Admin acetaminophen (TYLENOL) tablet 650 mg 650 mg oral Q4H PRN Gaetano Tellez MD Or acetaminophen (TYLENOL) 32 mg/mL oral liquid 650 mg 650 mg feeding tube Q4H PRN Gaetano Tellez MD Or acetaminophen (TYLENOL) suppository 650 mg 650 mg rectal Q4H PRN Gaetano Tellez MD aspirin enteric coated tablet 81 mg 81 mg oral Nightly Gaetano Tellez MD 81 mg at 07/20/232018 enoxaparin (LOVENOX) syringe 40 mg 40 mg subcutaneous Daily-2099 Gaetano Tellez MD 40 mgat 07/20/232022 HYDROcodone-acetaminophen (NORCO) 5-325 mg per tablet 1 tablet 1 tablet oral Q4H PRN Gaetano Tellez MD 1 tablet at 07/20/23 161 levothyroxine (SYNTHROID) tablet 25 mcg 25 mcg oral Daily - 0600 Gaetano Tellez MD 25 mcg at 07/20/23431 morphine injection 2 mg 2 mg intravenous Q4H PRN Gaetano Tellez MD 2 mg at 07/20/232023 naloxone (NARCAN) injection 0.4 mg 0.4 mg intravenous Q10 Min PRN Gaetano Tellez MD polyethylene glycol (MIRALAX) packet 17 g 17 g oral Daily PRN Gaetano Tellez MD ramelteon (ROZEREM) tablet 8 mg 8 mg oral Nightly PRN Gaetano Tellez MD 8 mg at sotaloL (BETAPACE) tablet 80 mg 80 mg oral Q12H [facility] Gaetano Tellez MD 80 mg at 07/20/232018 No current [facility]-ordered outpatient medications on file. Immunosuppressive Medications: Immunosuppressive Medications (From admission, onward) None Active LDAs: Peripheral IV 07/19/23 20 G Right Antecubital (Active) Site Assessment Clean and dry 07/20/23 0820 IV Line Status Single Flushes easily;Saline locked 07/20/23 0820 Dressing Type Transparent 07/20/23 0820 Dressing Status Clean, dry, intact 07/20/23 0820 Number of days: 1 [REMOVED] Peripheral IV 04/11/23 22 G Anterior;Left Forearm (Removed) Number of days: 99 [REMOVED] Peripheral IV 07/19/23 20 G Anterior;Right Forearm (Removed) Site Assessment Clean and dry 07/19/23 164 IV Line Status Single Blood return noted;Flushes easily;Saline locked 07/19/23 1642 Dressing Type Transparent 07/19/23 1642 Dressing Status Clean, dry, intact;New 07/19/23 1642 Number of days: 0 Allergies Allergen Reactions Prednisone Rash Social History Tobacco Use Smoking status: Never [...] Father Anesthesia problems Neg Hx Review of Systems: Review of Systems Constitutional: Negative for fever and weight loss. HENT: Negative for ear pain and hearing loss. Eyes: Negative for blurred vision. Respiratory: Negative for cough and shortness of breath. Cardiovascular: Negative for chest pain and palpitations. Gastrointestinal: Negative for abdominal pain and diarrhea. Genitourinary: Dysuria no hematuria. Musculoskeletal: Negative for joint pain and myalgias. Neurological: Negative for seizures. Endo/Heme/Allergies: Negative for polydipsia. Does not bruise/bleed easily. Psychiatric/Behavioral: Negative for depression. Skin: No rash Objective Vitals: 24hr Min/Max: Temp Min: 36.5 ??C (97.7 ??F) Max: 37 ??C (98.6 ??F) Pulse Min: 51 Max: 67 BP Min: 110/56 Max: 162/76 Resp Min: 16 Max: 18 SpO2 Min: 92 % Max: 98 % Most Recent : Vitals: 07/20/232018 BP: Pulse: 62 Resp: Temp: SpO2: I/O last 2 completed shifts: In: - Out: 600 [Urine:600] No intake/output data recorded. Physical Exam: General: Well appearing, well nourished, in no distress. Oriented x 3, normal mood and affect . Ambulating without difficulty. Skin: Good turgor, no rash, unusual bruising or prominent lesions HEENT: Head: Normocephalic and atraumatic. Eyes: Sclera non-icteric, EOM intact and PERRL Mouth: Mucous membranes moist, no mucosal lesions. Teeth/Gums: No obvious caries or periodontal disease. Pharynx: Mucosa non-inflamed, no tonsillar hypertrophy or exudate Neck: Supple, no adenopathy. Heart: No cardiomegaly or thrills; regular rate and rhythm, no murmur or gallop Lungs: Clear to auscultation and percussion Abdomen: Bowel sounds normal, no tenderness, organomegaly, masses, or hernia Extremities: No edema. peripheral pulses are intact Musculoskeletal: No effusions, intact range of motion. Neurologic: CN 2-12 normal. Sensation to pain, touch. DTRs normal in upper and lower extremities. No pathologic reflexes. Psychiatric: Oriented X3, intact recent and remote memory, judgment and insight, normal mood and affect. Lymph Node: normal Lab/Radiology/Diagnostic Review: CT scan of the abdomen and pelvis with contrast: Severe bladder wall thickening and bilateral ureteral enhancement. No evidence of renal parenchymalinfection. WBC count of 7.2 hemoglobin of 10 hematocrit of 35 platelet of 158 segmental of 52% Sodium of 136 potassium of 4.1 chloride of 104 bicarb of 20 BUN 20 creatinine of 0.6. Alkaline phosphatase of 100 AST 21 ALT of 17 Blood cultures x2 sets negative day 1. Urinalysis nitrite is positive esterase 4+. WBC 60 RBC 3-10. 07/19/2023 Urine culture day 1 no growth Urine culture 07/17/2023 mixed genital lu urine culture 07/03/2023 showed E coli pansensitive including to Ancef and trimethoprim sulfa Assessment and plan: 1. Dysuria with pyuria without clinical signs and symptoms of urinary tract infection. Remains afebrile with a normal white count. Blood cultures are negative. Urine culture day 1 no growth. 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 I do not at this point suspect this patient has an active infection. I will hold off antibiotic therapy since she is afebrile with a normal white count. Blood cultures and urine culturesday 1 no growth. Explained to patient and family member at bedside. Continue hydration with pain management for her dysuria. Patient was on estrogen cream twice a week. Will increase 5 days a week [id number] every other day. Discussed with pharmacy no in-house Premarin cream therefore daughter to bring from home. 2. Atrial fibrillation rate controlled on Betapace. 3. Coronary artery disease on aspirin and statin continue 4. Hypertension stable blood pressure 5. History of C diff colitis with recent stool transplant proximally 3-4 weeks ago at [facility]. Avoid any unnecessary antibiotics use preserve healthy gut lu. documented in this encounter Nursing Notes * Araceli Dai RN - 07/23/2023 11:44 AM CDT Discharge, follow-up, and medication instructions reviewed with pt. All questions addressed at thistime. States she will call her ride. Expects pickling tank operator at [phone]. documented in this encounter ED Notes * Stone Larson NP - 07/19/2023 9:19 PM CDT CHIEF COMPLAINT: Chief Complaint Patient presents with Bladder Problem Urinary Problem HPI 10:20 PM Maria A Peralta is a 82 y.o. female presenting to the ED c/o UTI like symptoms. She states that she has a history of chronic, frequent UTI, from us approximately 3-4 days she has noticed worsening of her lower abdominal pain, urinary urgency, frequency, dysuria, lower back pain, nausea, chill that is progressively getting worse. She denies any fever. Denies any chest pain or shortness of breath. Denies any diarrhea or constipation. She has a history of frequent C diff, last CT wasapproximately 4 months ago. Denies any other complaint. History provided by patient. PCP: Phan Garvin MD PAST MEDICAL HISTORY Past Medical History: Diagnosis Date Atrial fibrillation (CMS/HCC) (HCC) 03/01/2022 Hypercholesteremia Osteoporosis Recurrent UTI PAST SURGICAL HISTORY Past Surgical History: Procedure Laterality Date BACK SURGERY 1993 BLADDER FULGURATION 04/11/2023 and bx BLADDER SURGERY 2018 COLONOSCOPY multiple FAMILY HISTORY Family History Problem Relation Age of Onset Arthritis Mother Cancer Mother Heart disease Father Anesthesia problems Neg Hx MEDICATIONS GIVEN IN THE ED Medications sodium chloride 0.9% bolus 1,000 mL (1,000 mL intravenous New Bag 07/19/232138) ibuprofen (ADVIL,MOTRIN) tablet 400 mg (400 mg oral Given 07/19/23 170) HYDROcodone-acetaminophen (NORCO) 5-325 mg per tablet 1 tablet (1 tablet oral Given 07/19/23 191) ioversoL (OPTIRAY 350) syringe 100 mL (100 mL intravenous Contrast Given 07/19/232007) cefTRIAXone (ROCEPHIN) 1,000 mg/10 mL in sterile water (premix) 1,000 mg (1,000 mg intravenous Given 07/19/232138) morphine injection 2 mg (2 mg intravenous Given 07/19/232138) CURRENT HOME MEDICATIONS Current Facility-Administered Medications: sodium chloride 0.9% bolus 1,000 mL, 1,000 mL, intravenous, Once, Stone Larson, SOCIAL WORK THERAPIST, Last Rate: 1,000 mL/hr at 07/19/232138, 1,000 mL at 07/19/232138 Current Outpatient Medications: acidophilus-pectin, citrus 100 million cell-10 mg capsule, Take 1 capsule by mouth every morning, Disp: , Rfl: ascorbic acid (VITAMIN C) 500 mg tablet,chewable, Take 1 tablet/chew tab (500 mg total) by mouth every morning, Disp: , Rfl: aspirin 81 mg enteric coated tablet, Take 1 tablet (81 mg total) by mouth nightly, Disp: , Rfl: cefdinir (OMNICEF) 300 mg capsule, Take 1 capsule (300 mg total) by mouth 2 (two) times a day (Patient not taking: Reported on 04/18/2023), Disp: , Rfl: cholecalciferol (VITAMIN D-3) 2000 unit capsule, Take 1 capsule (2,000 Units total) by mouth every morning, Disp: , Rfl: cranberry 400 mg capsule, Take 800 mg by mouth every morning, Disp: , Rfl: diphenhydrAMINE (Sleep Aid, diphenhydrAMINE,) 25 mg capsule, Take 0.5 tablet/capsule (12.5 mg total) by mouth nightly as needed for itching or sleep, Disp: , Rfl: estradioL (ESTRACE) 0.01 % [...] with meals, Disp: 60 tablet, Rfl: 3 phenazopyridine (PYRIDIUM) 100 mg tablet, Take 1 tablet (100 mg total) by mouth 3 (three) times a day as needed (urinary pain) for up to 6 doses Take After meals (Patient not taking: Reported on 05/21/2023), Disp: 6 tablet, Rfl: 0 rosuvastatin (CRESTOR) 10 mg tablet, , Disp: , Rfl: sotaloL (BETAPACE) 80 mg tablet, 80 MG ORALLY EVERY 12 HOURS, Disp: 60 tablet, Rfl: 5 turmeric root extract 500 mg capsule, Take by mouth, Disp: , Rfl: vancomycin (VANCOCIN) 125 mg capsule, PLEASE SEE ATTACHED FOR DETAILED DIRECTIONS, Disp: , Rfl: vit C,W-Xf-mgkqb-lutein-zeaxan (PreserVision AREDS-2) 250-90-40-1 mg capsule, Take 1 capsule by mouth 2 (two) times a day, Disp: , Rfl: zinc 50 mg tablet, Take 50 mg by mouth every morning, Disp: , Rfl: ALLERGIES Allergies Allergen Reactions Prednisone Rash SOCIAL HISTORY Social History Tobacco Use Smoking status: Never Smokeless tobacco: Never Substance and Sexual Activity Drug use: Never Sexual activity: Defer Alcohol Use: Not At Risk (04/11/2023) AUDIT-C Frequency of Alcohol Consumption: Never Average Number of Drinks: Patient does not drink Frequency of Binge Drinking: Never PHYSICAL EXAM TRIAGE VITAL SIGNS: ED Triage Vitals [07/19/23 1620] Temp Pulse Resp BP SpO2 37 ??C (98.6 ??F) 62 20 150/80 96 % Temp src Heart Rate Source Patient Position BP Location FiO2 (%) Oral -- -- -- -- Height Height Method Weight Weight Method 1.6 m (5' 3 ) Stated 74 kg (163 lb 2.3 oz) -- Physical Exam Vitals and nursing note reviewed. Constitutional: General: She is not in acute distress. Appearance: Normal appearance. She is well-developed. She is not ill-appearing, toxic-appearing or diaphoretic. HENT: Head: Normocephalic and atraumatic. Jaw: There is normal jaw occlusion. Right Ear: Hearing and external ear normal. Left Ear: Hearing and external ear normal. Nose: Nose normal. Mouth/Throat: Mouth: Mucous membranes are dry. Eyes: General: Lids are normal. Vision grossly intact. Extraocular Movements: Extraocular movements intact. Conjunctiva/sclera: Conjunctivae normal. Neck: Trachea: Trachea and phonation normal. Cardiovascular: Rate and Rhythm: Normal rate and regular rhythm. Pulses: Normal pulses. Radial pulses are 2+ on the right side and 2+ on the left side. Heart sounds: No murmur heard. Pulmonary: Effort: Pulmonary effort is normal. No respiratory distress. Breath sounds: Normal breath sounds and air entry. Abdominal: Palpations: Abdomen is soft. Tenderness: There is abdominal tenderness in the right lower quadrant, suprapubic area and left lower quadrant. There is left CVA tenderness. Musculoskeletal: General: No swelling. Cervical back: Full passive range of motion without pain, normal range of motion and neck supple. Right lower leg: No edema. Left lower leg: No edema. Skin: General: Skin is warm and dry. Capillary Refill: Capillary refill takes less than 2 seconds. Neurological: General: No focal deficit present. Mental Status: She is alert and oriented to person, place, and time. GCS: GCS eye subscore is 4. GCS verbal subscore is 5. GCS motor subscore is 6. Psychiatric: Attention and Perception: Attention normal. Mood and Affect: Mood normal. Speech: Speech normal. Behavior: Behavior normal. Behavior is cooperative. Thought Content: Thought content normal. LABS Labs Reviewed URINALYSIS AND REFLEX TO MICROSCOPIC AND CULTURE - Abnormal Result Value Color, ur Yellow Clarity, ur Turbid (*) Specific gravity, ur 1.010 pH, urine 7.0 Protein, ur ql 2+ (*) Glucose, ur ql Negative Ketones, ur Negative Bilirubin, ur 1+ (*) Blood, ur 2+ (*) Urobilinogen, ur 2.0 (*) Nitrite, ur Positive (*) Leukocyte esterase, ur 4+ (*) UA reflex comment Reflex to microscopic UA will be performed. CBC WITH AUTO DIFFERENTIAL - Abnormal WBC 7.3 Hgb 11.6 (*) Hct 35.7 Plt 200 MPV 10.9 RBC 3.95 MCV 90.4 MCH 29.4 MCHC 32.5 RDW CV 14.4 RDW SD 47.6 NRBC abs 0.00 DIFFERENTIAL AUTO - Abnormal Neutrophil abs 3.9 Imm gran abs 0.0 Lymphocyte abs 2.2 Monocyte abs 1.0 (*) Eosinophil abs 0.2 Basophil abs 0.0 Neutrophil pct 52.9 Imm gran pct 0.3 Lymphocyte pct 29.8 Monocyte pct 13.8 Eosinophil pct 2.7 Basophil pct 0.5 URINALYSIS, MICROSCOPIC ONLY - Abnormal WBC, ur >50 (*) RBC, ur >50 (*) Epithelial cells, squamous, ur 21-50 (*) Culture Reflex Comment Reflex to urine culture will be performed. URINE CULTURE BLOOD CULTURE BLOOD CULTURE COMPREHENSIVE METABOLIC PANEL Sodium 137 Potassium, pl 4.0 Chloride 101 CO2 23 Anion gap 13 BUN 21 Creatinine 0.80 Glucose 101 Calcium 9.0 Bilirubin, total 0.5 Protein, pl 6.7 Albumin 3.6 Alk phos 117 ALT 22 AST 23 EGFR eGFR [address] Abdomen Pelvis W Contrast Result Date: 07/19/2023 Narrative: EXAM DESCRIPTION: CT ABDOMEN PELVIS W CONTRAST REASON FOR STUDY: Abdominal pain, acute, nonlocalized Patient states that she has been having extreme urinary and bladder pain x 3 days. States that she has been having these issues x 5 years, was told she has diverticulum on her bladder. Had a clear UA test on Sunday. Patient states she was told to come to ER for imaging. TECHNIQUE: CT scan of the abdomen and pelvis performed with intravenous and without oral contrast using helical scanning technique with dynamic intravenous contrast injection. Reconstructed coronal and sagittal MPR images reviewed. All images stored on PACS. Automated exposure control was used as a dose optimizatio n technique for this examination. CONTRAST TYPE/DOSE: 100mL of IOVERSOL 350 MG IODINE/ML INTRAVENOUS SYRINGE injected via intravenous COMPARISON: None FINDINGS: LOWER CHEST: Lung bases clear. Mild cardiomegaly. Heavy annular and coronary artery calcification. No effusion LIVER/BILIARY: Mild hepaticsteatosis. Biliary tree normal in caliber. GALLBLADDER: Normal. SPLEEN: Scattered nonspecific low-attenuation lesions. PANCREAS: Normal. ADRENAL GLANDS: Normal. KIDNEYS/URINARY TRACT: Mado-wk-swpvdrgs renal atrophy. Urothelial enhancement. No visible inflammation. Marked wall thickening of the bladder. GI: Stomach and small bowel appear normal. Extensive noninflamed sigmoid diverticulosis. Normal appendix. OTHER ABDOMINAL/PELVIS: Major vascular structures are grossly patent and normal in caliber. No enlarged lymph node or free fluid. MSK: Moderate disc disease and facet arthropathy. Hip and SI joint arthrosis. BODY WALL: Unremarkable. IMPRESSION: Severe bladder wall thickening and bilateralurothelial enhancement are evidence for cystitis with ascending infection. No evidence of renal parenchymal infection. THIS IS AN ELECTRONICALLY VERIFIED FINAL REPORT 07/19/2023 8:38 PM - Electronically signed by Collin Cassidy M.D. AR: TEDDY Report ID: [id number] Reading Location: [place] [address] ED COURSE/MEDICAL DECISION MAKING ED Course as of 07/19/230 Time: 07/18 2121 Comment: This is 82-year-old female lives by herself at her home, came in for UTI like symptoms including incontinence of urine, suprapubic pain, left flank pain, chill from last 3-4 days. By: Stone Larson NP Time: 07/18 2122 Comment: She states she has not been able to sleep because of pelvic pain and urine incontinence. By: Stone Larson NP Time: 07/18 2122 Comment: On exam she does appear in moderate distress because of pain, have a left CVA tenderness on palpitation, suprapubic tenderness on palpitation, vitals unremarkable, lung sounds are clear. By: Stone Larson NP Time: 07/18 2122 Comment: UA does have sign of UTI, CBC, CMP unremarkable. By: Stone Larson NP Time: 07/19 2123 Comment: CT Abdomen and Pelvis: IMPRESSION: Severe bladder wall thickening and bilateral urothelial enhancement are evidence for cystitis with ascending infection. No evidence of renal parenchymal infection. By: Stone Larson NP Time: 07/19 2123 Comment: She lives by herself, she has been very uncomfortable last 3 days, has not had any good sleep, we decided to have a inpatient treatment for pyelonephritis. By: Stone Larson NP Time: 07/19 2123 Comment: I talked with pharmacist, her previous did not result source sensitivity to ceftriaxone soI gave her Rocephin. Did speak with the pharmacist about her previous history of C diff and per pharmacist Rocephin is a reasonable choice. By: Stone Larson NP Time: 07/18 2217 Comment: Dr. Tellez kindly accepted the patient on telemetry floor. By: Stone Larson NP Procedures FINAL IMPRESSION Pyelonephritis DISPOSITION: Admit This examination was transcribed using the [employer] voice recognition system without human cooking instructor. In an effort to expedite patient care, this report has not been adjusted for typographical, grammatical, and syntax by a trained director biomedical engineering. Stone Larson NP 07/19/232219 Cosigned by Cody Jones MD at 07/20/2023 4:38 AM CDT Associated attestation - Cody Jones MD - 07/20/2023 4:38 AM CDT ED Attestation This patient was independently evaluated by the APC. I was available for immediate consultation andin-person evaluation if required but was not asked to do so. * Evelyn Bledsoe RN - 07/19/2023 4:17 PM CDT Patient states that she has been having extreme urinary and bladder pain x 3 days. States that she has been having these issues x 5 years, was told she has diverticulum on her bladder. Had a clear UAtest on Sunday. Patient states she was told to come to ER for imaging. documented in this encounter Miscellaneous Notes * Plan of Care - Radha Vinson RN - 07/23/2023 10:47 AM CDT CARE COORDINATION DISCHARGE PLANNING HOME: Patient will d/c home with support from daughter, friends, and family. Transportation home provided by daughter. Patient/Family denies needs or barriers to care ANTICIPATED D/C DATE:07/23/23 CM will continue to follow for progression of care, if further needs for discharge or barriers to care arise, please reach out to care management team. Radha Vinson RN 07/23/2023 10:47 AM * Plan of Care - Araceli Dai RN - 07/23/2023 10:32 AM CDT Goals: Clinical Goals for the Shift: VSS, Comfort, Safety Summary: Problem: Lack of Knowledge Goal: Ability to develop a pain control plan will improve Outcome: Adequate for Discharge Problem: Medication Goal: Satisfaction with pain management medication regimen will improve Outcome: Adequate for Discharge Problem: Sensory Goal: Ability to identify factors that increase pain levels will improve while working to decrease the patient's pain levels Outcome: Adequate for Discharge Problem: Coping Goal: Ability to cope will improve Outcome: Adequate for Discharge Problem: Health Behavior Goal: Identification of resources available to assist in meeting health care needs will improve Outcome: Adequate for Discharge Problem: Discharge Planning Goal: Understanding discharge needs will improve Outcome: Adequate for Discharge Problem: Chronic Conditions and Co-morbidities (Stable) Goal: Patient's chronic conditions and co-morbidity symptoms are monitored and maintained or improved (Please edit to comment chronic conditions for patient) Outcome: Adequate for Discharge Problem: General Patient Education Goal: Knowledge of disease process, condition or treatment will be improved Outcome: Adequate for Discharge Problem: Physical Regulation Goal: Ability to maintain clinical measurements within normal limits will improve Outcome: Adequate for Discharge Problem: Safety Goal: Free from injury or harm Outcome: Adequate for Discharge Goal: Ability to maintain safety and efficiency with swallowing without signs of aspiration will improve Outcome: Adequate for Discharge Problem: Fall Risk Goal: Ability to state ways to decrease the risk of falls will improve Outcome: Adequate for Discharge Goal: Will remain free from falls Outcome: Adequate for Discharge Goal: Will remain free from injury from falls Outcome: Adequate for Discharge * Plan of Alysha - Hanny Henry RN - 07/23/2023 12:34 AM CDT Goals: Clinical Goals for the Shift: VSS, Comfort, Safety Summary: Patient continues to c/o pain. PRN and scheduled medication administered as ordered with reported relief. She states she just feels hopeless, and will break out in tears. She has stated, I'm so sorry I even exist, or I am just ready to go home with God. When asked if she wanted to hurt herself, she said, No. She stated she just gets so depressed and doesn't know what to do. Objectively she seems to have troubles coping with diagnosis and dealing with chronic pain and urinary leakage. Continues to c/o frequency and urgency with urination, but will only urinate 50 - 100 mL at atime and has difficulty starting once she is on the commode. Problem: Coping Goal: Ability to cope will improve Outcome: Not Progressing Flowsheets (Taken 07/23/2023 003) Ability to cope will Improve: Provide emotional support Encourage vebalization of feelings surrounding pain Problem: Chronic Conditions and Co-morbidities (Stable) Goal: Patient's chronic conditions and co-morbidity symptoms are monitored and maintained or improved (Please edit to comment chronic conditions for patient) Flowsheets (Taken 07/23/2023 003) Patient's chronic conditions and co-morbidity symptoms are monitored and maintained or improved: Monitor and assess patient's chronic conditions and comorbid symptoms for stability, deterioration, orimprovement Problem: Fall Risk Goal: Will remain free from falls Outcome: Progressing Flowsheets (Taken 07/21/2023 0400) Will remain free from falls: Assess risk factors for falls * Plan of Care - Tiana Lundberg RN - 07/22/2023 7:55 AM CDT Problem: Lack of Knowledge Goal: Ability to develop a pain control plan will improve Outcome: Progressing Problem: Medication Goal: Satisfaction with pain management medication regimen will improve Outcome: Progressing Problem: Sensory Goal: Ability to identify factors that increase pain levels will improve while working to decrease the patient's pain levels Outcome: Progressing Problem: Coping Goal: Ability to cope will improve Outcome: Progressing Problem: Health Behavior Goal: Identification of resources available to assist in meeting health care needs will improve Outcome: Progressing Problem: Discharge Planning Goal: Understanding discharge needs will improve Outcome: Progressing Problem: Chronic Conditions and Co-morbidities (Stable) Goal: Patient's chronic conditions and co-morbidity symptoms are monitored and maintained or improved (Please edit to comment chronic conditions for patient) Outcome: Progressing Problem: General Patient Education Goal: Knowledge of disease process, condition or treatment will be improved Outcome: Progressing Problem: Physical Regulation Goal: Ability to maintain clinical measurements within normal limits will improve Outcome: Progressing Problem: Safety Goal: Free from injury or harm Outcome: Progressing Goal: Ability to maintain safety and efficiency with swallowing without signs of aspiration will improve Outcome: Progressing Problem: Fall Risk Goal: Ability to state ways to decrease the risk of falls will improve Outcome: Progressing Goal: Will remain free from falls Outcome: Progressing Goal: Will remain free from injury from falls Outcome: Progressing Goals: Clinical Goals for the Shift: VSS, Comfort, Safety * Plan of Care - Tiana Lundberg RN - 07/22/2023 7:55 AM CDT Problem: Lack of Knowledge Goal: Ability to develop a pain control plan will improve 07/22/2023 1022 by Tiana Lundberg RN Outcome: Not Progressing 07/22/2023 1019 by Tiana Lundberg RN Outcome: Progressing Problem: Medication Goal: Satisfaction with pain management medication regimen will improve 07/22/2023 1022 by Tiana Lundberg RN Outcome: Not Progressing 07/22/2023 1019 by Tiana Lundberg RN Outcome: Progressing Problem: Sensory Goal: Ability to identify factors that increase pain levels will improve while working to decrease the patient's pain levels 07/22/2023 1022 by Tiana Lundberg RN Outcome: Not Progressing 07/22/2023 1019 by Tiana Lundberg RN Outcome: Progressing Problem: Coping Goal: Ability to cope will improve 07/22/2023 1022 by Tiana Lundberg RN Outcome: Not Progressing 07/22/2023 1019 by Tiana Lundberg RN Outcome: Progressing Problem: Health Behavior Goal: Identification of resources available to assist in meeting health care needs will improve 07/22/2023 1022 by Tiana Lundberg RN Outcome: Not Progressing 07/22/2023 1019 by Tiana Lundberg RN Outcome: Progressing Problem: Discharge Planning Goal: Understanding discharge needs will improve 07/22/2023 1022 by Tiana Lundberg RN Outcome: Not Progressing 07/22/2023 1019 by Tiana Lundberg RN Outcome: Progressing Problem: Chronic Conditions and Co-morbidities (Stable) Goal: Patient's chronic conditions and co-morbidity symptoms are monitored and maintained or improved (Please edit to comment chronic conditions for patient) 07/22/2023 1022 by Tiana Lundberg RN Outcome: Not Progressing 07/22/2023 1019 by Tiana Lundberg RN Outcome: Progressing Problem: General Patient Education Goal: Knowledge of disease process, condition or treatment will be improved 07/22/2023 1022 by Tiana Lundberg RN Outcome: Not Progressing 07/22/2023 1019 by Tiana Lundberg RN Outcome: Progressing Problem: Physical Regulation Goal: Ability to maintain clinical measurements within normal limits will improve 07/22/2023 1022 by Tiana Lundberg RN Outcome: Not Progressing 07/22/2023 1019 by Tiana Lunbderg RN Outcome: Progressing Problem: Safety Goal: Free from injury or harm 07/22/2023 1022 by Tiana Lundberg RN Outcome: Not Progressing 07/22/2023 1019 by Tiana Lundberg RN Outcome: Progressing Goal: Ability to maintain safety and efficiency with swallowing without signs of aspiration will improve 07/22/2023 1022 by Tiana Lundberg RN Outcome: Not Progressing 07/22/2023 1019 by Tiana Lundberg RN Outcome: Progressing Problem: Fall Risk Goal: Ability to state ways to decrease the risk of falls will improve 07/22/2023 1022 by Tiana Lundberg RN Outcome: Not Progressing 07/22/2023 1019 by Tiana Lundberg RN Outcome: Progressing Goal: Will remain free from falls 07/22/2023 1022 by Tiana Lundberg RN Outcome: Not Progressing 07/22/2023 1019 by Tiana Lundberg RN Outcome: Progressing Goal: Will remain free from injury from falls 07/22/2023 1022 by Tiana Lundberg RN Outcome: Not Progressing 07/22/2023 1019 by Tiana Lundberg RN Outcome: Progressing Goals: Clinical Goals for the Shift: VSS, Comfort, Safety * Plan of Care - Hanny Henry RN - 07/22/2023 6:41 AM CDT Goals: Clinical Goals for the Shift: VSS, Comfort, Safety Summary: Continues to c/o lower abdominal pain but does get some relief with PRN pain medication. Patient has not had a BM for a couple days, encouraged to take PRN laxative and has agreed but wants to wait until after breakfast. Bed alarm on for safety. No s/s distress noted. Problem: Sensory Goal: Ability to identify factors that increase pain levels will improve while working to decrease the patient's pain levels Outcome: Progressing Problem: Medication Goal: Satisfaction with pain management medication regimen will improve Outcome: Progressing * Plan of Care - Tiana Lundberg RN - 07/21/2023 8:20 AM CDT Problem: Lack of Knowledge Goal: Ability to develop a pain control plan will improve Outcome: Not Progressing Problem: Medication Goal: Satisfaction with pain management medication regimen will improve Outcome: Not Progressing Problem: Sensory Goal: Ability to identify factors that increase pain levels will improve while working to decrease the patient's pain levels Outcome: Not Progressing Problem: Coping Goal: Ability to cope will improve Outcome: Not Progressing Problem: Health Behavior Goal: Identification of resources available to assist in meeting health care needs will improve Outcome: Not Progressing Problem: Discharge Planning Goal: Understanding discharge needs will improve Outcome: Not Progressing Problem: Chronic Conditions and Co-morbidities (Stable) Goal: Patient's chronic conditions and co-morbidity symptoms are monitored and maintained or improved (Please edit to comment chronic conditions for patient) Outcome: Not Progressing Problem: General Patient Education Goal: Knowledge of disease process, condition or treatment will be improved Outcome: Not Progressing Problem: Physical Regulation Goal: Ability to maintain clinical measurements within normal limits will improve Outcome: Not Progressing Problem: Safety Goal: Free from injury or harm Outcome: Not Progressing Goal: Ability to maintain safety and efficiency with swallowing without signs of aspiration will improve Outcome: Not Progressing Problem: Fall Risk Goal: Ability to state ways to decrease the risk of falls will improve Outcome: Not Progressing Goal: Will remain free from falls Outcome: Not Progressing Goal: Will remain free from injury from falls Outcome: Not Progressing Goals: Clinical Goals for the Shift: Comfort, safety, medication administration, manage pain * Plan of Care - Hanny Henry RN - 07/21/2023 4:48 AM CDT Goals: Clinical Goals for the Shift: Comfort, safety, medication administration Summary: Patient rested intermittently d/t frequent trips to the bathroom. Post void residual 80mL.Continues to c/o pain. Daughter to bring in hormonal cream per doctors request because it is not carried by hospital pharmacy. Patient is tearful at times stating she just feels hopeless not knowing the cause and cure of her pain. Problem: Lack of Knowledge Goal: Ability to develop a pain control plan will improve Outcome: Progressing Flowsheets (Taken 07/21/2023 0400) Ability to develop a pain control plan will improve: Teach information regarding pain management Educate pain scale for assessing level of pain Teach notification to healthcare provider of episodes of pain Problem: Medication Goal: Satisfaction with pain management medication regimen will improve Outcome: Progressing Flowsheets (Taken 07/21/2023 0400) Satisfaction with pain management medication regimen will improve: Assess satisfaction with pain management regimen Evaluate medication effects Manage analgesics Problem: Sensory Goal: Ability to identify factors that increase pain levels will improve while working to decrease the patient's pain levels Outcome: Progressing Flowsheets (Taken 07/21/2023 0400) Ability to identify factors that increase pain levels will improve while working to decrease patients pain levels: Assess pain status Observe non-verbal cues of discomfort, such as restlessness, muscle tension, or altered vital signs Encourage distraction activities Problem: Coping Goal: Ability to cope will improve Outcome: Progressing Flowsheets (Taken 07/21/2023 0400) Ability to cope will Improve: Encourage vebalization of feelings surrounding pain Provide emotional support * Initial Assessments - Radha Vinson RN - 07/20/2023 10:05 AM CDT CM Initial Assessment Interview Note Information Obtained From: Patient (07/20/231004) Admission Source: ED from home Impression: Presented with urinary and bladder pain. Admitted with pyelonephritis. Plan Includes: Met with patient. She is independent in the room. She denies any needs at this time.Will discharge home with no needs Primary Source of Transportation: Does the patient need discharge transport arranged?: No (07/20/231004) Health Insurance Coverage: Aet Medicare Prescription Coverage: same Pharmacy: [facility]/pharmacy #[id number] - [place], [place] - [address] [facility] [address] [facility][id number] - [place] [address] [place] [address] [place], [place] - [address] [facility] Room [address] [facility] Room [address] [facility] [address] Primary Care Provider: Phan Garvin MD Prior to Admission: Functional Status: Independent with ADLs Primary Caregiver: Self Support System: Children, Family members, Friends/neighbors Home Care Services: No Outpatient Services: No Durable Medical Equipment: None Living Arrangements: Alone Type of Residence: Private residence Steps in home?: Yes, Outside of home Number of steps outside: 2 steps Medication management: Independent (07/20/231004) SDOH: Transportation: In the past 12 months, has lack of transportation kept you from medical appointments or from getting medications?: No In the past 12 months, has lack of transportation kept you from meetings, work, or from getting things needed for daily living?: No (07/20/231026) Financial Resource: How hard is it for you to pay for the very basics like food, housing, medical care, and heating?: Not hard at all (07/20/231026) Housing: In the last 12 months, was there a time when you were not able to pay the mortgage or rent on time?: No In the last 12 months, how many places have you lived?: 1 In the last 12 months, was there a time when you did not have a steady place to sleep or slept in [place] (including now)?: No (07/20/23 1028) Utilities: No, (07/20/23 102) Social Connections: In a typical week, how many times do you talk on the phone with family, friends, or neighbors?: More than three times a week How often do you get together with friends or relatives?: More than three times a week How often do you attend episcopalian or baptist services?: Never Do you belong to any clubs or organizations such as episcopalian groups, unions, fraternal or athletic groups, or school groups?: No How often do you attend meetings of the clubs or organizations you belong to?: Never Are you , , , , never , or living with a partner?: (07/20/231026) Food Insecurity: Within the past 12 months, you worried that your food would run out before you got the money to buymore.: Never true Within the past 12 months, the food you bought just didn't last and you didn't have money to get more.: Never true (07/20/231026) Potential discharge needs include: Home Health: None (07/20/231004) Anticipated Level of Care: Anticipated discharge level of care: Private residence Pt/Family agrees with Anticipated Level of Care: Yes (07/20/231004) Patient expects to be Discharged to: Private residence, (07/20/231004) Patient's Identified Problem/Goal Problem: Ensure acute medical needs are met and that patient has a safe discharge plan. Goal: Secure a discharge plan that patient/family are agreeable with and ensure patient has continuum of care. Case management will follow for discharge planning and send referrals as needed. Radha Vinson RN * Plan of Care - Julia Lagunas RN - 07/20/2023 8:24 AM CDT Problem: Lack of Knowledge Goal: Ability to develop a pain control plan will improve Outcome: Progressing Problem: Medication Goal: Satisfaction with pain management medication regimen will improve Outcome: Progressing Problem: Sensory Goal: Ability to identify factors that increase pain levels will improve while working to decrease the patient's pain levels Outcome: Progressing Problem: Coping Goal: Ability to cope will improve Outcome: Progressing Problem: Health Behavior Goal: Identification of resources available to assist in meeting health care needs will improve Outcome: Progressing Problem: Discharge Planning Goal: Understanding discharge needs will improve Outcome: Progressing Problem: Chronic Conditions and Co-morbidities (Stable) Goal: Patient's chronic conditions and co-morbidity symptoms are monitored and maintained or improved (Please edit to comment chronic conditions for patient) Outcome: Progressing Problem: General Patient Education Goal: Knowledge of disease process, condition or treatment will be improved Outcome: Progressing Problem: Physical Regulation Goal: Ability to maintain clinical measurements within normal limits will improve Outcome: Progressing Problem: Safety Goal: Free from injury or harm Outcome: Progressing Goal: Ability to maintain safety and efficiency with swallowing without signs of aspiration will improve Outcome: Progressing Problem: Fall Risk Goal: Ability to state ways to decrease the risk of falls will improve Outcome: Progressing Goal: Will remain free from falls Outcome: Progressing Goal: Will remain free from injury from falls Outcome: Progressing * Plan of Care - Hanny Henry RN - 07/20/2023 1:50 AM CDT Goals: ABX treatment, Strict I/O, Safety, and Comfort Summary: Patient admission completed. C/O freq urination with incontinence. Urine julai to tea colored. Cultures pending. SR to SB on upfitter. MD aware, meds adjusted accordingly. C/O abdominal pain with nausea. States she feels the nausea is d/t lack of eating. Crackers provided with expressed relief. Reported pain level improved from E.D. Problem: Lack of Knowledge Goal: Ability to develop a pain control plan will improve Outcome: Ongoing Note: Care plan initiated Problem: Chronic Conditions and Co-morbidities (Stable) Goal: Patient's chronic conditions and co-morbidity symptoms are monitored and maintained or improved (Please edit to comment chronic conditions for patient) Outcome: Ongoing Problem: General Patient Education Goal: Knowledge of disease process, condition or treatment will be improved Outcome: Ongoing Problem: Safety Goal: Free from injury or harm Outcome: Ongoing documented in this encounter Plan of Treatment Not on file documented as of this encounter Procedures Procedure Name Priority Date/Time Associated Diagnosis Comments DIFFERENTIAL AUTO Routine 07/21/2023 10: 01 AM CDT CBC WITH AUTO DIFFERENTIAL Routine 07/21/2023 10:01 AM CDT ECG 12-LEAD Routine 07/20/2023 10:27 AM CDT EGFR Routine 07/20/2023 5:03 AM CDT CBC WITHOUT DIFFERENTIAL Routine 07/20/2023 5:03 AM CDT MAGNESIUM Routine 07/20/2023 5:03 AM CDT COMPREHENSIVE METABOLIC PANEL Routine 07/20/2023 5:03 AM CDT ECG 12-LEAD STAT 07/20/2023 12:59 AM CDT BLOOD CULTURE STAT 07/19/2023 10:48 PM CDT BLOOD CULTURE STAT 07/19/2023 10:[address] ABDOMEN PELVIS W CONTRAST ED 07/19/2023 8:11 PM CDT URINALYSIS AND REFLEX TO MICROSCOPIC AND CULTURE STAT 07/19/2023 4:51 PM CDT URINALYSIS, MICROSCOPIC ONLY STAT 07/19/2023 4:51 PM CDT URINE CULTURE STAT 07/19/2023 4:51 PM CDT EGFR STAT 07/19/2023 4:42 PM CDT DIFFERENTIAL AUTO STAT 07/19/2023 4:4 2 PM CDT CBC WITH AUTO DIFFERENTIAL STAT 07/19/2023 4:42 PM CDT COMPREHENSIVE METABOLIC PANEL STAT 07/19/2023 4:42 PM CDT documented in this encounter Results * (ABNORMAL) Differential, auto (07/21/2023 10:01 AM CDT) Pathologist [facility] Neutrophil abs 2.9 1.5 - 6.5 K/cumm Comment:Testing performed by : [address] [address] Imm gran abs 0.0 0.0 - 0.1 K/cumm JUAN JOSE Comment:Testing performed by : [address] [address] Lymphocyte abs 1.7 0.8 - 3.3 K/cumm JUAN JOSE Comment:Testing performed by : [address] [address] Monocyte abs 0.9(H) 0.2 - 0.8 K/cumm [facility] Comment:Testing performed by : [address] [address] Eosinophil abs 0.2 0.0 - 0.5 K/cumm JUAN JOSE Comment:Testing performed by : [address] [address] Basophil abs 0.0 0.0 - 0.1 K/cumm [facility] Comment:Testing performed by : [address] [address] Neutrophil pct 51.1 % [facility] Comment: Interpretive Data Percent cell count reference ranges are not reported, since discordance with absolute values may lead to misinterpretation of CBC data. Current Interpretive Data was last revised on 2017. Testing performed by: [address] [address] Imm gran pct 0.2 % [facility] Comment: Interpretive Data Percent cell count reference ranges are not reported, since discordance with absolute values may lead to misinterpretation of CBC data. Current Interpretive Data was last revised on 2017. Testing performed by: [address] [address] Lymphocyte pct 29.0 % [facility] Comment: Interpretive Data Percent cell count reference ranges are not reported, since discordance with absolute values may lead to misinterpretation of CBC data. Current Interpretive Data was last revised on 2017. Testing performed by: [address] [address] Monocyte pct 14.8 % [facility] Comment: Interpretive Data Percent cell count reference ranges are not reported, since discordance with absolute values may lead to misinterpretation of CBC data. Current Interpretive Data was last revised on 2017. Testing performed by: [address] [address] Eosinophil pct 4.2 % [facility] Comment: Interpretive Data Percent cell count reference ranges are not reported, since discordance with absolute values may lead to misinterpretation of CBC data. Current Interpretive Data was last revised on 2017. Testing performed by: [address] [address] Basophil pct 0.7 % [facility] Comment: Interpretive Data Percent cell count reference ranges are not reported, since discordance with absolute values may lead to misinterpretation of CBC data. Current Interpretive Data was last revised on 2017. Testing performed by: [address] [address] Blood 07/21/2023 10:0 1 AM CDT 07/21/2023 10:54 AM CDT us Lorena Jones MD LAB BLOOD ORDERABLES Final Resul t JUAN JOSE [address] [facility] Department [place] [address] * (ABNORMAL) CBC with auto differential (07/21/2023 10:01 AM CDT) WBC 5.7 3.8 - 9.9 K/cumm Comment:Testing performed by : [address] [address] Hgb 10.6(L) 11.9 - 15.5 g/dL JUAN JOSE Comment:Testing performed by : [address], [address] Hct 33.2(L) 35.6 - 45.5 % JUAN JOSE Comment:Testing performed by : [address] [address] Plt 188 150 - 400 K/cumm JUAN JOSE Comment:Testing performed by : [address], [address] MPV 11.7 9.1 - 12.3 fL JUAN JOSE Comment:Testing performed by : [address], [address] RBC 3.59(L) 3.90 - 5.20 M/cumm JUAN JOSE Comment:Testing performed by : [address], [address] MCV 92.5 81.3 - 96.4 fL JUAN JOSE Comment:Testing performed by : [address], [address] MCH 29.5 27.1 - 33.3 pg JUAN JOSE Comment:Testing performed by : [address], [address] MCHC 31.9(L) 32.3 - 35.7 g/dL JUAN JOSE Comment:Testing performed by : [address], [address] RDW CV 14.1 11.1 - 14.9 % JUAN JOSE Comment:Testing performed by : [address] [address] RDW SD 48.1 35.7 - 48.1 fL JUAN JOSE Comment:Testing performed by : [address], [address] NRBC abs 0.00 0.00 - 0.01 K/cumm JUAN JOSE Comment:Testing performed by : [address], [address] Blood 07/21/2023 10:0 1 AM CDT 07/21/2023 10:54 AM CDT us Lorena Jones MD LAB BLOOD ORDERABLES Final Resul t Performing Organization Address [facility] Co de Phone Number JUAN JOSE [address] [facility] Department [place] [address] * ECG 12 lead (07/20/2023 10:27 AM CDT) Pathologist [facility] Ventricular Rate EKG/Min 64 BPM [facility] Atrial Rate 64 BPM [facility] IN-Interval (MSEC) 158 ms [facility] QRS-Interval (MSEC) 88 ms [facility] QT-Interval (MSEC) 464 ms [facility] QTc 478 ms [facility] P [place] 21 degrees [facility] R [place] -11 degrees [facility] T [place] 15 degrees [facility] Diagnosis Normal sinus rhythm with sinus arrhythmia Normal ECG When compared with ECG of 20-JUL-2023 00:59, No significant change was found Confirmed by ALEXI ECHOLS M.D. ([id number]) on 07/21/2023 7:29:21 PM [facility] 07/20/2023 10:2 7 AM CDT 07/21/2023 7:29 PM CDT us Gaetano Tellez MD ECG ORDERABLES Final Result Performing Organization Address [facility] de Phone Number [facility] * eGFR (07/20/2023 5:03 AM CDT) Pathologist [facility] eGFR 88 >=60 mL/min/1. 73 m2 Comment: Interpretive Data Reference Interval Normal ?>/= 90 mL/min/1.73m2 Mildly decreased* ? 60 - 89 mL/min/1.73m2 Mildly to moderately decreased ?45 - 59 mL/min/1.73m2 Moderately to severely decreased ??30 - 44 mL/min/1.73m2 Severely decreased ?15 - 29 mL/min/1.73m2 Kidney Failure ?< 15 ??mL/min/1.73m2 *Relative to young adult level Estimated glomerular filtration rate is determined by the 2020 CKD-EPI equation recommended by the National Kidney Foundation (A Unifying Approach to GFR Estimation: Recommendations of the NKF-ASK Task Force on Reassessing the Inclusion of Race in Diagnosing Kidney Disease, JASN 2020). The CKD-EPI equation should not be used for patients with unstable renal function and has not been validated in children and those over 70. Current interpretive data was last reviewed 2021. Testing performed by: [address] [address] Blood 07/20/2023 5:03 AM CDT 07/20/2023 5:27 AM CDT us Gaetano Tellez MD LAB BLOOD ORDERABLES Final Result [facility] [address] [facility] Department [place] [address] * (ABNORMAL) CBC without differential (07/20/2023 5:03 AM CDT) [facility] WBC 7.2 3.8 - 9.9 K/cumm Comment:Testing performed by : [address] [address] Hgb 10.8(L) 11.9 - 15.5 g/dL JUAN JOSE DEMPSEY Comment:Testing performed by : [address] [address] Hct 35.1(L) 35.6 - 45.5 % JUAN JOSE Comment:Testing performed by : [address] [address] Plt 158 150 - 400 K/cumm JUAN JOSE DEMPSEY Comment:Testing performed by : [address] [address] MPV 11.8 9.1 - 12.3 fL JUAN JOSE DEMPSEY Comment:Testing performed by : [address] [address] RBC 3.67(L) 3.90 - 5.20 M/cumm JUAN JOSE DEMPSEY Comment:Testing performed by : [address] [address] MCV 95.6 81.3 - 96.4 fL JUAN JOSE Comment:Testing performed by : [address] [address] MCH 29.4 27.1 - 33.3 pg JUAN JOSE Comment:Testing performed by : [address] [address] MCHC 30.8(L) 32.3 - 35.7 g/dL JUAN JOSE Comment:Testing performed by : [address] [address] RDW CV 14.4 11.1 - 14.9 % JUAN JOSE Comment:Testing performed by : [address] [address] RDW SD 50.4(H) 35.7 - 48.1 fL JUAN JOSE Comment:Testing performed by : [address] [address] NRBC abs 0.00 0.00 - 0.01 K/cumm JUAN JOSE Comment:Testing performed by : [address] [address] Blood 07/20/2023 5:03 AM CDT 07/20/2023 5:27 AM CDT us Gaetano Tellez MD LAB BLOOD ORDERABLES Final Result JUAN JOSE [facility] [facility] Department [place] [address] * Magnesium (07/20/2023 5:03 AM CDT) Magnesium 1.7 1.4 - 2.5 mg/dL Comment:Testing performed by : [address] [address] Blood 07/20/2023 5:03 AM CDT 07/20/2023 5:27 AM CDT us Gaetano Tellez MD LAB BLOOD ORDERABLES Final Result [facility] [address] [facility] Department [place] [address] * (ABNORMAL) Comprehensive metabolic panel (07/20/2023 5:03 AM CDT) Sodium 136 135 - 145 mmol/L Comment:Testing performed by : [address] [address] Potassium, pl 4.1 3.3 - 4.9 mmol/L JUAN JOSE Comment:Testing performed by : [address] [address] Chloride 104 97 - 110 mmol/L JUAN JOSE Comment:Testing performed by : [address] [address] CO2 20(L) 22 - 32 mmol/L JUAN JOSE Comment:Testing performed by : [address] [address] Anion gap 12 2 - 15 mmol/L JUAN JOSE Comment:Testing performed by : [address] [address] BUN 20 6 - 25 mg/dL JUAN JOSE Comment:Testing performed by : [address] [address] Creatinine 0.60 0.60 - 1.10 mg/dL JUAN JOSE Comment:Testing performed by : [address] [address] Glucose 97 70 - 199 mg/dL JUAN JOSE Comment: Interpretive Data Fasting glucose >/= 126 mg/dl is diagnostic for diabetes. ?? Fasting is defined as no caloric intake for at least 8 hours. Fasting glucose between 100 mg/dl to 125 mg/dl is diagnostic of prediabetes. In a patient with classic symptoms of hyperglycemia or hyperglycemic crisis, a random glucose >/= 200 mg/dl is diagnostic for diabetes. In the absence of unequivocal hyperglycemia, results should be confirmed by repeat testing. The classification and Diagnosis of Diabetes Diabetes Care 2021; 46: S19-S40. Current interpretive data was last revised 2022. Testing performed by: [address] [address] Calcium 8.5 8.5 - 10.3 mg/dL JUAN JOSE Comment:Testing performed by : [address] [address] Bilirubin, total 0.3 0.1 - 1.2 mg/dL JUAN JOSE Comment:Testing performed by : [address] [address] Protein, pl 5.8(L) 6.5 - 8.5 g/dL JUAN JOSE Comment:Testing performed by : [address] [address] Albumin 3.0(L) 3.5 - 5.0 g/dL JUAN JOSE Comment:Testing performed by : [address] [address] Alk phos 100 40 - 130 Units/L JUAN JOSE Comment:Testing performed by : [address] [address] ALT 17 7 - 45 Units/L JUAN JOSE Comment:Testing performed by : [address] [address] AST 21 10 - 45 Units/L JUAN JOSE Comment: HEMOLYZED: Hemolysis interferes with the above test. Testing performed by: [address] [address] Blood 07/20/2023 5:03 AM CDT 07/20/2023 5:27 AM CDT us Gaetano Tellez MD LAB BLOOD ORDERABLES Final Result JUAN JOSE DEMPSEY [address] [facility] Department [place] [address] * ECG 12 lead (07/20/2023 12:59 AM CDT) Pathologist [facility] Ventricular Rate EKG/Min 65 BPM [facility] Atrial Rate 65 BPM [facility] IN-Interval (MSEC) 162 ms [facility] QRS-Interval (MSEC) 88 ms [facility] QT-Interval (MSEC) 458 ms [facility] QTc 476 ms [facility] P [place] -6 degrees [facility] R [place] -10 degrees [facility] T [place] 18 degrees [facility] Diagnosis Normal sinus rhythm Normal ECG No previous ECGs available Confirmed by ALEXI ECHOLS M.D. ([id number]) on 07/21/2023 7:02:35 PM [facility] 07/20/2023 12:5 9 AM CDT 07/21/2023 7:02 PM CDT us Gaetano Tellez MD ECG ORDERABLES Final Result [facility] [place] * Blood culture Blood Peripheral (07/19/2023 10:48 PM CDT) Report Final Report: No growth Comment:Testing performed by : [facility], [address] [facility], [place]., [address] Blood (Peripheral) 07/19/2023 10:48 PM CDT 07/20/2023 1:25 AM CDT Narrative JUAN JOSE - 07/24/2023 7:00 AM CDT From a different site than #1. Draw Blood cultures before administration of Antibiotics Collection->Peripheral 1. ?Blood cultures are incubated for 4 days on a continuously monitored blood culture system. The first report of a negative culture is issued within 24 hours of receipt of the specimen in the laboratory. 2. ?Positive culture results are reported as soon as they are detected. 3. ?The most important factor for detection of microbes in the setting of bloodstream infection is the volume of blood submitted for culture. Failure to collect an optimal blood volume can result in false negative blood cultures. For pediatric patients, the recommended blood volume to collect is 1 mL of blood per year of patient age (up to 20 mL) per blood culture set. For adult patients, 20 mL of blood, divided equally between aerobic and anaerobic blood culture bottles, is recommended for each blood culture set. 4. ?For blood cultures with Gram-positive cocci, a rapid molecular test for organism identification may be performed using the PopUpigene Gram-Positive Blood Culture Assay. This assay detects microbial DNA in positive blood culture broth via hybridization of target DNA to capture oligonucleotides on a microarray. This assay has been cleared by the [place] Food and Drug Administration and its performance characteristics have been verified by the [facility]. 5. ?For questions about this culture, contact the Microbiology Laboratory at [phone]. Interpretive data was last revised on 2019. Stone Larson NP LAB MICROBIOLOGY - GENERAL ORDER KARLA Final Result JUAN JOSE [address] [facility] [place] [address] * Blood culture Blood Peripheral (07/19/2023 10:36 PM CDT) Report Final Report: No growth Comment:Testing performed by : [facility], [address] [facility] [place]., [address] Blood (Peripheral) 07/19/2023 10:36 PM CDT 07/20/2023 1:25 AM CDT [facility] JUAN JOSE - 07/24/2023 7:00 AM CDT Draw Blood cultures before administration of Antibiotics Collection->Peripheral Received only aerobic blood culture bottle 1. ?Blood cultures are incubated for 4 days on a continuously monitored blood culture system. The first report of a negative culture is issued within 24 hours of receipt of the specimen in the laboratory. 2. ?Positive culture results are reported as soon as they are detected. 3. ?The most important factor for detection of microbes in the setting of bloodstream infection is the volume of blood submitted for culture. Failure to collect an optimal blood volume can result in false negative blood cultures. For pediatric patients, the recommended blood volume to collect is 1 mL of blood per year of patient age (up to 20 mL) per blood culture set. For adult patients, 20 mL of blood, divided equally between aerobic and anaerobic blood culture bottles, is recommended for each blood culture set. 4. ?For blood cultures with Gram-positive cocci, a rapid molecular test for organism identification may be performed using the Verigene Gram-Positive Blood Culture Assay. This assay detects microbial DNA in positive blood culture broth via hybridization of target DNA to capture oligonucleotides on a microarray. This assay has been cleared by the [place] Food and Drug Administration and its performance characteristics have been verified by the [facility]. 5. ?For questions about this culture, contact the Microbiology Laboratory at [phone]. Interpretive data was last revised on 2019. us Stone Larson NP LAB MICROBIOLOGY - GENERAL ORDER KARLA Final Result JUAN JOSE [address] [facility] [place] [address] * CT Abdomen Pelvis W Contrast (07/19/2023 8:11 PM CDT) Anatomical Region Laterality Modality Body N/A Computed Tomogra phy 07/19/2023 8:34 PM CDT Narrative 07/19/2023 8:38 PM CDT EXAM DESCRIPTION: ?? CT ABDOMEN PELVIS W CONTRAST REASON FOR STUDY: ?? Abdominal pain, acute, nonlocalized ?? Patient states that she has been having extreme urinary and bladder pain x 3 days. States that she has been having these issues x 5 years, was told she has diverticulum on her bladder. Had a clear UA test on Sunday. Patient states she was told to come ?? to ER for imaging. ? TECHNIQUE: CT scan of the abdomen and pelvis performed with intravenous and ?? without ??oral contrast using helical scanning technique with dynamic intravenous contrast injection. Reconstructed coronal and sagittal MPR images reviewed. All images stored on PACS. Automated exposure control was used as a dose optimization technique for this examination. CONTRAST TYPE/DOSE: ?? 100mL of IOVERSOL 350 MG IODINE/ML INTRAVENOUS SYRINGE ?? injected via ?? intravenous COMPARISON: ?? None FINDINGS: LOWER CHEST: ??Lung bases clear. ??Mild cardiomegaly. ??Heavy annular and coronary artery calcification. ??No effusion LIVER/BILIARY: ??Mild hepatic steatosis. ?Biliary tree normal in caliber. GALLBLADDER: ??Normal. SPLEEN: ??Scattered nonspecific low-attenuation lesions. PANCREAS: ??Normal. ADRENAL GLANDS: ??Normal. KIDNEYS/URINARY TRACT: ??Zbry-rt-zhqjwjal renal atrophy. ??Urothelial enhancement. ??No visible inflammation. ??Marked wall thickening of the bladder. GI: ??Stomach and small bowel appear normal. ??Extensive noninflamed sigmoid diverticulosis. ??Normal appendix. ?? OTHER ABDOMINAL/PELVIS: ??Major vascular structures are grossly patent and normal in caliber. ??No enlarged lymph node or free fluid. MSK: ??Moderate disc disease and facet arthropathy. ??Hip and SI joint arthrosis. ?? BODY WALL: ??Unremarkable. ?? IMPRESSION: Severe bladder wall thickening and bilateral urothelial enhancement are evidence for cystitis with ascending infection. ??No evidence of renal parenchymal infection. ?? THIS IS AN ELECTRONICALLY VERIFIED FINAL REPORT 07/19/2023 8:38 PM - Electronically signed by ??Collin Cassidy M.D. AR: TEDDY D: ??07/19/2023 8:38 PM T: ??07/19/2023 8:38 PM Report ID: [id number] Reading Location: ??[id number] Procedure Note Collin Cassidy MD - 07/19/2023 EXAM DESCRIPTION: CT ABDOMEN PELVIS W CONTRAST REASON FOR STUDY: Abdominal pain, acute, nonlocalized Patient states that she has been having extreme urinary and bladder pain x3 days. States that she has been having these issues x 5 years, was told shehas diverticulum on her bladder. Had a clear UA test on Sunday. Patientstates she was told to come to ER for imaging. TECHNIQUE: CT scan of the abdomen and pelvis performed with intravenousand without oral contrast using helical scanning technique with dynamic intravenous contrast injection. Reconstructed coronal and sagittal MPRimages reviewed. All images stored on PACS. Automated exposure control was usedas a dose optimization technique for this examination. CONTRAST TYPE/DOSE: 100mL of IOVERSOL 350 MG IODINE/ML INTRAVENOUSSYRINGE injected via intravenous COMPARISON: None FINDINGS: LOWER CHEST: Lung bases clear. Mild cardiomegaly. Heavy annular and coronary artery calcification. No effusion LIVER/BILIARY: Mild hepatic steatosis. Biliary tree normal in caliber. GALLBLADDER: Normal. SPLEEN: Scattered nonspecific low-attenuation lesions. PANCREAS: Normal. ADRENAL GLANDS: Normal. KIDNEYS/URINARY TRACT: Lcuq-zg-zhyytpbp renal atrophy. Urothelial enhancement. No visible inflammation. Marked wall thickening of thebladder. GI: Stomach and small bowel appear normal. Extensive noninflamed sigmoid diverticulosis. Normal appendix. OTHER ABDOMINAL/PELVIS: Major vascular structures are grossly patent and normal in caliber. No enlarged lymph node or free fluid. MSK: Moderate disc disease and facet arthropathy. Hip and SI joint arthrosis. BODY WALL: Unremarkable. IMPRESSION: Severe bladder wall thickening and bilateral urothelial enhancement are evidence for cystitis with ascending infection. Noevidence of renal parenchymal infection. THIS IS AN ELECTRONICALLY VERIFIED FINAL REPORT 07/19/2023 8:38 PM - Electronically signed by Collin Cassidy M.D. AR: TEDDY Report ID: [id number] Reading Location: [id number] us Stone Larson NP IMG CT PROCEDURES Final Result * Urine culture Urine (07/19/2023 4:51 PM CDT) Report Final Report: Less than 100,000 colonies/mL (clinically insignificant growth based on current clinical standards) Comment:Testing performed by : [facility], [address] [facility] [place]., [address] Organism (CLINICALLY INSIGNIFICANT GROWTH JUAN JOSE DEMPSEY Urine 07/19/2023 4:51 PM CDT 07/19/2023 8:04 PM CDT Narrative JUAN JOSE DEMPSEY - 07/21/2023 7:55 AM CDT Urine culture reflexed based upon urinalysis results. Testing performed by [facility] ([phone]) us Mickey Adame MD LAB MICROBIOLOGY - GENERA L ORDERABLES Final Result JUAN JOSE DEMPSEY [address] [facility] Department [place] [address] * (ABNORMAL) Urinalysis, microscopic only (07/19/2023 4:51 PM CDT) WBC, ur >50(A) 0 - 5 /HPF Comment:Testing performed by : [address] [address] RBC, ur >50(A) 0 - 2 /HPF JUAN JOSE Comment:Testing performed by : [address] [address] Epithelial cells, squamous, ur 21-50(A) 0 - 5 /HPF JUAN JOSE Comment:Testing performed by : [address] [address] Culture Reflex Comment Reflex to urine culture will be performed. JUAN JOSE Comment:Testing performed by : [address] [address] Urine 07/19/2023 4:51 PM CDT 07/19/2023 4:55 PM CDT us Gaetano Tellez MD LAB URINE ORDERABLES Final Result JUAN JOSE [address] [facility] Department [place] [address] * (ABNORMAL) Urinalysis reflex to microscopic and culture Urine (07/19/2023 4:51 PM CDT) Color, ur Yellow Yellow Comment:Testing performed by : [address] [address] Clarity, ur Turbid(A) Clear JUAN JOSE Comment:Testing performed by : [address] [address] Specific gravity, ur 1.010 1.003 - 1.030 JUAN JOSE Comment:Testing performed by : [address] [address] pH, urine 7.0 JUAN JOSE Comment: Interpretive Data ? Urine pH is affected by diet, medications, systemic acid-base disturbances, and renal tubular function. ??pH may affect urinary stone formation. ??For example, urine pH below 6.0 may help reduce the tendency for calcium phosphate stones and pH greater than 6.0 may reduce the tendency for uric acid stone formation. Source: [facility] [employer] Current Interpretive Data was last revised on 2017 Testing performed by: [facility], [address] [place] [address]., [address] Protein, ur ql 2+(A) Negative JUAN JOSE Comment:Testing performed by : [address] [address] Glucose, ur ql Negative Negative JUAN JOSE Comment:Testing performed by : [address], [place]., [address] Ketones, ur Negative Negative JUAN JOSE Comment:Testing performed by : [address], [place]., [address] Bilirubin, ur 1+(A) Negative JUAN JOSE Comment:Testing performed by : [address], [place]., [address] Blood, ur 2+(A) Negative JUAN JOSE Comment:Testing performed by : [address], [place]., [address] Urobilinogen, ur 2.0(A) <2.0 mg/dL JUAN JOSE Comment:Testing performed by : [address] [address] Nitrite, ur Positive(A) Negative JUAN JOSE Comment:Testing performed by : [address] [address] Leukocyte esterase, ur 4+(A) Negative JUAN JOSE Comment:Testing performed by : [address] [address] UA reflex comment Reflex to microscopic UA will be performed. JUAN JOSE Comment:Testing performed by : [address] [address] Urine 07/19/2023 4:51 PM CDT 07/19/2023 4:55 PM CDT us Gaetano Tellez MD LAB MICROBIOLOGY - NERAL ORDERABLES Final Result JUAN JOSE [address] [facility] Department [place] [address] * eGFR (07/19/2023 4:42 PM CDT) eGFR 73 >=60 mL/min/1. 73 m2 Comment: Interpretive Data Reference Interval Normal ?>/= 90 mL/min/1.73m2 Mildly decreased* ? 60 - 89 mL/min/1.73m2 Mildly to moderately decreased ?45 - 59 mL/min/1.73m2 Moderately to severely decreased ??30 - 44 mL/min/1.73m2 Severely decreased ?15 - 29 mL/min/1.73m2 Kidney Failure ?< 15 ??mL/min/1.73m2 *Relative to young adult level Estimated glomerular filtration rate is determined by the 2020 CKD-EPI equation recommended by the National Kidney Foundation (A Unifying Approach to GFR Estimation: Recommendations of the NKF-ASK Task Force on Reassessing the Inclusion of Race in Diagnosing Kidney Disease, JASN 202). The CKD-EPI equation should not be used for patients with unstable renal function and has not been validated in children and those over 70. Current interpretive data was last reviewed 2021. Testing performed by: [facility], [address] [place] [address]., [address] Blood 07/19/2023 4:42 PM CDT 07/19/2023 4:46 PM CDT us Gaetano Tellez MD LAB BLOOD ORDERABLES Final Result Performing Organization Address City/[facility]/ZIP Co de Phone Number JUAN JOSE [address] [facility] Department [place] [address] * (ABNORMAL) Differential, auto (07/19/2023 4:42 PM CDT) Neutrophil abs 3.9 1.5 - 6.5 K/cumm Comment:Testing performed by : [address] [address] Imm gran abs 0.0 0.0 - 0.1 K/cumm JUAN JOSE Comment:Testing performed by : [address] [address] Lymphocyte abs 2.2 0.8 - 3.3 K/cumm [facility] Comment:Testing performed by : [address] [address] Monocyte abs 1.0(H) 0.2 - 0.8 K/cumm [facility] Comment:Testing performed by : [address] [address] Eosinophil abs 0.2 0.0 - 0.5 K/cumm [facility] Comment:Testing performed by : [address] [address] Basophil abs 0.0 0.0 - 0.1 K/cumm [facility] Comment:Testing performed by : [address] [address] Neutrophil pct 52.9 % [facility] Comment: Interpretive Data Percent cell count reference ranges are not reported, since discordance with absolute values may lead to misinterpretation of CBC data. Current Interpretive Data was last revised on 2017. Testing performed by: [address] [address] Imm gran pct 0.3 % [facility] Comment: Interpretive Data Percent cell count reference ranges are not reported, since discordance with absolute values may lead to misinterpretation of CBC data. Current Interpretive Data was last revised on 2017. Testing performed by: [address] [address] Lymphocyte pct 29.8 % CERNER Comment: Interpretive Data Percent cell count reference ranges are not reported, since discordance with absolute values may lead to misinterpretation of CBC data. Current Interpretive Data was last revised on 2017. Testing performed by: [address] [address] Monocyte pct 13.8 % JUAN JOSE Comment: Interpretive Data Percent cell count reference ranges are not reported, since discordance with absolute values may lead to misinterpretation of CBC data. Current Interpretive Data was last revised on 2017. Testing performed by: [address] [address] Eosinophil pct 2.7 % JUAN JOSE DEMPSEY Comment: Interpretive Data Percent cell count reference ranges are not reported, since discordance with absolute values may lead to misinterpretation of CBC data. Current Interpretive Data was last revised on 2017. Testing performed by: [address] [address] Basophil pct 0.5 % JUAN JOSE Comment: Interpretive Data Percent cell count reference ranges are not reported, since discordance with absolute values may lead to misinterpretation of CBC data. Current Interpretive Data was last revised on 2017. Testing performed by: [address] [address] Blood 07/19/2023 4:42 PM CDT 07/19/2023 4:46 PM CDT us Gaetano Tellez MD LAB BLOOD ORDERABLES Final Result JUAN JOSE [address] [facility] Department of Laboratories [place], [place] [id number] * (ABNORMAL) CBC with auto differential (07/19/2023 4:42 PM CDT) WBC 7.3 3.8 - 9.9 K/cumm Comment:Testing performed by : [address] [address] Hgb 11.6(L) 11.9 - 15.5 g/dL JUAN JOSE DEMPSEY Comment:Testing performed by : [address] [address] Hct 35.7 35.6 - 45.5 % JUAN JOSE DEMPSEY Comment:Testing performed by : [address] [address] Plt 200 150 - 400 K/cumm JUAN JOSE DEMPSEY Comment:Testing performed by : [address] [address] MPV 10.9 9.1 - 12.3 fL JUAN JOSE DEMPSEY Comment:Testing performed by : [address] [address] RBC 3.95 3.90 - 5.20 M/cumm JUAN JOSE DEMPSEY Comment:Testing performed by : [address] [address] MCV 90.4 81.3 - 96.4 fL JUAN JOSE DEMPSEY Comment:Testing performed by : [address] [address] MCH 29.4 27.1 - 33.3 pg JUAN JOSE DEMPSEY Comment:Testing performed by : [address] [address] MCHC 32.5 32.3 - 35.7 g/dL JUAN JOSE DEMPSEY Comment:Testing performed by : [address] [address] RDW CV 14.4 11.1 - 14.9 % JUAN JOSE Comment:Testing performed by : [address] [address] RDW SD 47.6 35.7 - 48.1 fL JUAN JOSE DEMPSEY Comment:Testing performed by : [address] [address] NRBC abs 0.00 0.00 - 0.01 K/cumm JUAN JOSE Comment:Testing performed by : [address] [address] Blood 07/19/2023 4:42 PM CDT 07/19/2023 4:46 PM CDT us Gaetano Tellez MD LAB BLOOD ORDERABLES Final Result JUAN JOSE [address] [facility] [place] [address] * Comprehensive metabolic panel (07/19/2023 4:42 PM CDT) Sodium 137 135 - 145 mmol/L Comment:Testing performed by : [address], [place]., [address] Potassium, pl 4.0 3.3 - 4.9 mmol/L JUAN JOSE Comment:Testing performed by : [address], [place]., [address] Chloride 101 97 - 110 mmol/L JUAN JOSE Comment:Testing performed by : [address], [place]., [address] CO2 23 22 - 32 mmol/L JUAN JOSE Comment:Testing performed by : [address], [place]., [address] Anion gap 13 2 - 15 mmol/L JUAN JOSE Comment:Testing performed by : [address], [place]., [address] BUN 21 6 - 25 mg/dL JUAN JOSE Comment:Testing performed by : [address], [place]., [address] Creatinine 0.80 0.60 - 1.10 mg/dL JUAN JOSE Comment:Testing performed by : [address], [place]., [address] Glucose 101 70 - 199 mg/dL [facility] Comment: Interpretive Data Fasting glucose >/= 126 mg/dl is diagnostic for diabetes. ?? Fasting is defined as no caloric intake for at least 8 hours. Fasting glucose between 100 mg/dl to 125 mg/dl is diagnostic of prediabetes. In a patient with classic symptoms of hyperglycemia or hyperglycemic crisis, a random glucose >/= 200 mg/dl is diagnostic for diabetes. In the absence of unequivocal hyperglycemia, results should be confirmed by repeat testing. The classification and Diagnosis of Diabetes Diabetes Care 202; 46: S19-S40. Current interpretive data was last revised 2022. Testing performed by: [address] [address] Calcium 9.0 8.5 - 10.3 mg/dL JUAN JOSE Comment:Testing performed by : [address], [place]., [address] Bilirubin, total 0.5 0.1 - 1.2 mg/dL JUAN JOSE Comment:Testing performed by : [address] [address] Protein, pl 6.7 6.5 - 8.5 g/dL JUAN JOSE DEMPSEY Comment:Testing performed by : [address] [address] Albumin 3.6 3.5 - 5.0 g/dL JUAN JOSE DEMPSEY Comment:Testing performed by : [address] [address] Alk phos 117 40 - 130 Units/L JUAN JOSE DEMPSEY Comment:Testing performed by : [address] [address] ALT 22 7 - 45 Units/L JUAN JOSE DEMPSEY Comment:Testing performed by : [address] [address] AST 23 10 - 45 Units/L JUAN JOSE Comment:Testing performed by : [address] [address] Blood 07/19/2023 4:42 PM CDT 07/19/2023 4:46 PM CDT us Gaetano Tellez MD LAB BLOOD ORDERABLES Final Result Performing Organization Address City/State/[facility] Co de Phone Number JUAN JOSE [address] [facility] [place] [address] documented in this encounter Visit Diagnoses Diagnosis Pyelonephritis- Primary Unspecified pyelonephritis Pyelonephritis Unspecified pyelonephritis documented in this encounter Admitting Diagnoses Diagnosis Pyelonephritis Unspecified pyelonephritis documented in this encounter Administered Medications Inactive Administered Medications - up to 3 most recent administrations Medication Order MAR Action Action Date Dose Rate Site acetaminophen (TYLENOL) 32 mg/mL oral liquid 650 mg 650 mg, feeding tube, Every 4 hours PRN, 1st line for pain, fever, Starting on Kathya 07/19/23 at 2256, Administer if patient receiving meds per tube., Indications: Fever, PainIndications:Fever,Pain acetaminophen (TYLENOL) suppository 650 mg 650 mg, rectal, Every 4 hours PRN, 1st line for pain, fever, Starting on Kathya 07/19/23 at 2256, Administer if patient cannot tolerate enteral route., Indications: Fever, PainIndications:Fever,Pain acetaminophen (TYLENOL) tablet 650 mg 650 mg, oral, Every 4 hours PRN, 1st line for pain, fever, Starting on Kathya 07/19/23 at 2256, Administer if patient can swallow tablets., Indications: Fever, PainIndications:Fever,Pain Given 07/22/2023 3:21 PM CDT 650 mg Given 07/22/2023 9:53 AM CDT 650 mg Given 07/21/2023 5:47 PM CDT 650 mg aspirin enteric coated tablet 81 mg 81 mg, oral, Nightly, First dose on Sun07/20/23 at 2100, Do not crush, chew, cut, dissolve, open or otherwise manipulate tablet/capsule., Indications: prevention of thrombosisIndications:prevention of thrombosis Given 07/22/2023 9: 23 PM CDT 81 mg Given 07/21/2023 9:19 PM CDT 81 mg Given 07/20/2023 8:19 PM CDT 81 mg cefTRIAXone (ROCEPHIN) 1,000 mg/10 mL in sterile water (premix) 1,000 mg 1,000 mg, intravenous, at 120 mL/hr, Administer over 5 Minutes, Once, On Kathya 07/19/23 at 2120, For 1 dose, Indications: Urinary Tract/Genitourinary InfectionIndications:Urinary Tract/Genitourinary Infection Given 07/19/2023 9:39 PM CDT 1,000 mg 1 20 mL/hr cyclobenzaprine (FLEXERIL) tablet 5 mg 5 mg, oral, 3 times daily, First dose on Sun07/22/23 at 0900 Given 07/23/2023 8:48 AM CDT 5 mg Given 07/22/2023 9:23 PM CDT 5 mg Given 07/22/2023 3:21 PM CDT 5 mg enoxaparin (LOVENOX) syringe 40 mg 40 mg, subcutaneous, Daily (for enoxaparin), First dose on Kathya 07/19/23 at 2330, Indications: Deep Vein Thrombosis PreventionIndications:Deep Vein Thrombosis Prevention Given 07/22/2023 9:24 PM CDT 40 mg Left Lower Abdomen Given 07/21/2023 9:20 PM CDT 40 mg Ri ght Lower Abdomen Given 07/20/2023 8:23 PM CDT 40 mg Le ft Lower Abdomen estradioL (ESTRACE) 0.01 % (0.1 mg/gram) vaginal cream 2 g 2 g, vaginal, 5 times weekly (Once per day on Sunday), First dose on [facility] 07/21/23 at 1800, For 14 days, Indications: Abdominal Pain of Unknown CauseIndications:Abdominal Pain of Unknown Cause Given 07/22/2023 5:36 PM CDT 2 g Given 07/21/2023 5:47 PM CDT 2 g HYDROcodone-acetaminophen (NORCO) 5-325 mg per tablet 1 tablet 1 tablet, oral, Once, On [facility] 07/19/23 at 1907, For 1 dose, Indications: PainIndications:Pain Given 07/19/2023 7:10 PM CDT 1 tablet HYDROcodone-acetaminophen (NORCO) 5-325 mg per tablet 1 tablet 1 tablet, oral, Every 4 hours PRN, moderate pain, Starting on [facility] 07/19/23 at 2256, Indications: PainIndications:Pain Given 07/23/2023 1:21 PM CDT 1 tablet Given 07/21/2023 5:47 PM CDT 1 tablet Given 07/21/2023 5:27 AM CDT 1 tablet ibuprofen (ADVIL,MOTRIN) tablet 400 mg 400 mg, oral, Once, On [facility] 07/19/23 at 1701, For 1 dose Given 07/19/2023 5:01 PM CDT 400 mg ibuprofen (ADVIL,MOTRIN) tablet/capsule 200 mg 200 mg, oral, 3 times daily, First dose (after last modification) on Gordon 07/22/23 at 1100, Do not crush, break, or open. Given 07/23/2023 8:48 AM CDT 200 mg Given 07/22/2023 9:23 PM CDT 200 mg Given 07/22/2023 5:35 PM CDT 200 mg ioversoL (OPTIRAY 350) syringe 100 mL 100 mL, intravenous, Once in imaging, contrast, Starting on [facility] 07/19/23 at 2006, For 1 dose Contrast Given 07/19/2023 8:08 PM CDT 100 mL lactulose 0.67 gram/mL oral solution 20 g 20 g, oral, Once, On Gordon 07/22/23 at 1015, For 1 dose Given 07/22/2023 9:54 AM CDT 20 g levothyroxine (SYNTHROID) tablet 25 mcg 25 mcg, oral, Daily (early AM), First dose on Sun07/20/23 at 0600, Administer on an empty stomach, preferably 30 minutes before breakfast. Take 4 hours apart from antacids, iron and calcium products. Separate from tube feeds, if applicable., Indications: hypothyroidismIndications:hypothyroi dism Given 07/23/2023 6:38 AM CDT 25 mcg Given 07/22/2023 6:33 AM CDT 25 mcg Given 07/21/2023 5:27 AM CDT 25 mcg morphine injection 2 mg 2 mg, intravenous, Administer over 4 Minutes, Once, On Sun07/19/23 at 2121, For 1 dose Given 07/19/2023 9:39 PM CDT 2 mg morphine injection 2 mg 2 mg, intravenous, Administer over 4 Minutes, Every 4 hours PRN, severe pain, Starting on Sun07/19/23 at 2256, Indications: PainIndications:Pain Given 07/21/2023 9:19 PM CDT 2 mg Given 07/21/2023 8:17 AM CDT 2 mg Given 07/21/2023 4:10 AM CDT 2 mg naloxone (NARCAN) injection 0.4 mg 0.4 mg, intravenous, Every 10 min PRN, respiratory depression, opioid reversal, Starting on Sun07/19/[address] (PROTONIX) extended release tablet 40 mg 40 mg, oral, Daily, First dose on Sun07/22/23 at 1100, Do not crush, chew, cut, dissolve, open or otherwise manipulate tablet/capsule., Indications: Mucositis ProphylaxisIndications:Mucositis Prophylaxis Given 07/23/2023 8:49 AM CDT 40 mg Given 07/22/2023 11:54 AM CDT 40 mg polyethylene glycol (MIRALAX) packet 17 g 17 g, oral, Daily PRN, constipation, Starting on Sun07/19/23 at 2256, Indications: constipationIndications:constipation Given 07/22/2023 7:53 AM CDT 17 g ramelteon (ROZEREM) tablet 8 mg 8 mg, oral, Nightly PRN, sleep, Starting on Sun07/19/23 at 2256, Indications: Sleep-Onset InsomniaIndications:Sleep-Onset Insomnia Given 07/22/2023 9:23 PM CDT 8 m g Given 07/21/2023 9:19 PM CDT 8 mg Given 07/20/2023 8:23 PM CDT 8 mg senna (SENOKOT) tablet 1 tablet 1 tablet, oral, 2 times daily, First dose on 07/22/23 at 1015 Given 07/22/2023 9:54 AM CDT 1 tablet sodium chloride 0.9% bolus 1,000 mL 1,000 mL, intravenous, at 1,000 mL/hr, Administer over 1 Hours, Once, On Kathya 07/19/23 at 2121, For 1 dose New Bag 07/19/2023 9:39 PM CDT 1,000 mL 1000 mL/hr sotaloL (BETAPACE) tablet 80 mg 80 mg, oral, Every 12 hours scheduled, First dose on Sun07/20/23 at 0900 Given 07/23/2023 8:49 AM CDT 80 mg Given 07/22/2023 9:23 PM CDT 80 mg Given 07/22/2023 7:54 AM CDT 80 mg documented in this encounter Discontinued Medications Medication Sig Discontinue Reason Start Date End Da te acidophilus-pectin, citrus 100 million cell-10 mg capsuleIndications:[facility] Take 1 capsule by mouth every morning Not taking Therapy completed 07/20/2023 turmeric root extract 500 mg capsule Take by mouth 07/20/2023 cefdinir (OMNICEF) 300 mg capsuleIndications:Ur inary Tract/Genitourinary Infection Take 1 capsule (300 mg total) by mouth 2 (two) times a day Stop Taking at Discharge 07/23/2023 vancomycin (VANCOCIN) 125 mg capsule PLEASE SEE ATTACHED FOR DETAILED DIRECTIONS Stop Taking at Discharge 07/23/2023 documented as of this encounter Active and Recently Administered Medications Times are shown in CDT. Scheduled Medication Order 07/21/2023 07/22/2023 07/23/2023 aspirin enteric coated tablet 81 mg 81 mg, oral, Nightly, First dose on Sun07/20/23 at 2100, Do not crush, chew, cut, dissolve, open or otherwise manipulate tablet/capsule., Indications: prevention of thrombosis 2118 (Given - Provider: Hanny Henry RN) 2122 (Given - Provider: Hanny Henry RN) cyclobenzaprine (FLEXERIL) tablet 5 mg 5 mg, oral, 3 times daily, First dose on 07/22/23 at 0900 0754 (Given - Provider: Tiana Lundberg RN)1521 (Given - Provider: Tiana Lundberg RN)2122 (Given - Provider: Hanny Henry RN) 0848 (Given - Provider: Araceli Dai, JOHN) enoxaparin (LOVENOX) syringe 40 mg 40 mg, subcutaneous, Daily (for enoxaparin), First dose on [facility] 07/19/23 at 2330, Indications: Deep Vein Thrombosis Prevention 2119 (Given - Provider: Hanny Henry RN) 2123 (Given - Provider: Hanny Henry RN) estradioL (ESTRACE) 0.01 % (0.1 mg/gram) vaginal cream 2 g 2 g, vaginal, 5 times weekly (Once per day on Sunday), First dose on [facility] 07/21/23 at 1800, For 14 days, Indications: Abdominal Pain of Unknown Cause 1747 (Given - Provider: Tiana Lundberg RN) 1736 (Given - Provider: Tiana Lundberg RN) ibuprofen (ADVIL,MOTRIN) tablet/capsule 200 mg (CANCELED) 200 mg, oral, 3 times daily, First dose (after last modification) on 07/22/23 at 1100, Do not crush, break, or open. 1154 (Given - Provider: Tiana Lundberg RN)1718 (Not Given - Provider: Tiana Lundberg RN - Reason: Other - Comment: patient resting in bed, sleeping at this time)1735 (Given - Provider: Tiana Lundberg RN)2122 (Given - Provider: Hanny Henry RN) 0848 (Given - Provider: Araceli Dai, JOHN) lactulose 0.67 gram/mL oral solution 20 g (COMPLETED) 20 g, oral, Once, On 07/22/23 at 1015, For 1 dose 0954 (Given - Provider: Tiana Lundberg RN) levothyroxine (SYNTHROID) tablet 25 mcg 25 mcg, oral, Daily (early AM), First dose on Sun07/20/23 at 0600, Administer on an empty stomach, preferably 30 minutes before breakfast. Take 4 hours apart from antacids, iron and calcium products. Separate from tube feeds, if applicable., Indications: hypothyroidism 0527 (Given - Provider: Hanny Henry RN) 0633 (Given - Provider: Hanny Henry RN) 0638 (Given - Provider: Hanny Henry RN) pantoprazole DR (PROTONIX) extended release tablet 40 mg 40 mg, oral, Daily, First dose on 07/22/23 at 1100, Do not crush, chew, cut, dissolve, open or otherwise manipulate tablet/capsule., Indications: Mucositis Prophylaxis 1154 (Given - Provider: Tiana Lundberg RN) 0849 (Given - Provider: Araceli Dai, JOHN) senna (SENOKOT) tablet 1 tablet (CANCELED) 1 tablet, oral, 2 times daily, First dose on 07/22/23 at 1015 0954 (Given - Provider: Tiana Lundberg RN) sotaloL (BETAPACE) tablet 80 mg 80 mg, oral, Every 12 hours scheduled, First dose on Sun07/20/23 at 0900 0820 (Given - Provider: Tiana Lundberg RN)2119 (Given - Provider: Hanny Henry RN) 0754 (Given - Provider: Tiana Lundberg RN)2123 (Given - Provider: Hanny Henry RN) 0849 (Given - Provider: Araceli Dai, JOHN) PRN Medication Order 07/21/2023 07/22/2023 07/23/2023 acetaminophen (TYLENOL) 32 mg/mL oral liquid 650 mg(Linked Group 1) 650 mg, feeding tube, Every 4 hours PRN, 1st line for pain, fever, Starting on Kathya 07/19/23 at 2256, Administer if patient receiving meds per tube., Indications: Fever, Pain 0820 (See Alternative - Provider: Tiana Lundberg RN)1322 (See Alternative - Provider: Tiana Lundberg RN)1747 (See Alternative - Provider: Tiana Lundberg RN) 0953 (See Alternative - Provider: Tiana Lundberg RN)1521 (See Alternative - Provider: Tiana Lundberg RN) acetaminophen (TYLENOL) suppository 650 mg(Linked Group 1) 650 mg, rectal, Every 4 hours PRN, 1st line for pain, fever, Starting on Kathya 07/19/23 at 2256, Administer if patient cannot tolerate enteral route., Indications: Fever, Pain 0820 (See Alternative - Provider: Tiana Lundberg RN)1322 (See Alternative - Provider: Tiana Lundberg RN)1747 (See Alternative - Provider: Tiana Lundberg RN) 0953 (See Alternative - Provider: Tiana Lundberg RN)1521 (See Alternative - Provider: Tiana Lundberg RN) acetaminophen (TYLENOL) tablet 650 mg(Linked Group 1) 650 mg, oral, Every 4 hours PRN, 1st line for pain, fever, Starting on Kathya 07/19/23 at 2256, Administer if patient can swallow tablets., Indications: Fever, Pain 0820 (Given - Provider: Tiana Lundberg RN)1322 (Given - Provider: Tiana Lundberg RN)1747 (Given - Provider: Tiana Lundberg RN) 0953 (Given - Provider: Tiana Lundberg RN)1521 (Given - Provider: Tiana Lundberg RN) HYDROcodone-acetaminoph en (NORCO) 5-325 mg per tablet 1 tablet 1 tablet, oral, Every 4 hours PRN, moderate pain, Starting on Kathya 07/19/23 at 2256, Indications: Pain 0527 (Given - Provider: Hanny Herny RN)1747 (Given - Provider: Tiana Lundberg RN) 1321 (Given - Provider: Araceli Dai RN) morphine injection 2 mg (CANCELED) 2 mg, intravenous, Administer over 4 Minutes, Every 4 hours PRN, severe pain, Starting on Kathya 07/19/23 at 2256, Indications: Pain 0410 (Given - Provider: Hanny Henry RN)0817 (Given - Provider: Tiana Lundberg RN)2119 (Given - Provider: Hanny Henyr RN) naloxone (NARCAN) injection 0.4 mg 0.4 mg, intravenous, Every 10 min PRN, respiratory depression, opioid reversal, Starting on Kathya 07/19/23 at 2256 polyethylene glycol (MIRALAX) packet 17 g 17 g, oral, Daily PRN, constipation, Starting on Kathya 07/19/23 at 2256, Indications: constipation 0753 (Given - Provider: Tiana Lundberg RN) ramelteon (ROZEREM) tablet 8 mg 8 mg, oral, Nightly PRN, sleep, Starting on Kathya 07/19/23 at 2256, Indications: Sleep-Onset Insomnia 2118 (Given - Provider: Hanny Henry RN) 2122 (Given - Provider: Hanny Henry RN) Linked Groups Order Group 1: acetaminophen (TYLENOL) tablet 650 mgJump to med 650 mg, oral, Every 4 hours PRN, 1st line for pain, fever, Starting on Kathya 07/19/23 at 2256, Administer if patient can swallow tablets., Indications: Fever, Pain Or acetaminophen (TYLENOL) 32 mg/mL oral liquid 650 mgJump to med 650 mg, feeding tube, Every 4 hours PRN, 1st line for pain, fever, Starting on Kathya 07/19/23 at 2256, Administer if patient receiving meds per tube., Indications: Fever, Pain Or acetaminophen (TYLENOL) suppository 650 mgJump to med 650 mg, rectal, Every 4 hours PRN, 1st line for pain, fever, Starting on Kathya 07/19/23 at 2256, Administer if patient cannot tolerate enteral route., Indications: Fever, Pain documented in this encounter Orders Medications Ordered That Vasquez ht Not Have Been Administered Count Last Ordered Date First Ordered Date dicyclomine (BENTYL) capsule 20 mg 1 2023 ibuprofen (ADVIL,MOTRIN) tab let/capsule 200 mg 1 07/22/2023 acetaminophen (TYLENOL) 32 m g/mL oral liquid 650 mg 1 07/19/2023 acetaminophen (TYLENOL) suppository 650 mg 1 07/19/2023 cefTRIAXone (ROCEPHIN) 2,000 mg/20 mL in sterile water (premix) 2,000 mg 1 07/19/2023 naloxone (NARCAN) injection 0.4 mg 1 2023 Diet Count Last Ordered Date First Orde red Date ADULT DISCHARGE DIET 1 07/23/2023 Nursing Count Last Ordered Date First Orde red Date DISCHARGE ACTIVITY 1 07/23/2023 DISCHARGE CALL PROVIDER 7 07/23/2023 ACTIVITY 1 07/19/2023 CAPNOGRAPHY MONITORING 1 07/19/2023 CONTINUOUS PULSE OXIMETRY 1 07/19/2023 NOTIFY PROVIDER (SPECIFY) 1 07/19/2023 STRICT INTAKE AND OUTPUT 1 07/19/2023 WEIGH PATIENT 1 07/19/2023 Consult Count Last Ordered Date First Orde red Date IP CONSULT TO INFECTIOUS DISEASES 1 024 IV Count Last Ordered Date First Orde red Date SALINE LOCK IV 1 07/19/2023 Admission Count Last Ordered Date First Orde red Date ADMIT TO INPATIENT 1 07/19/2023 Discharge Count Last Ordered Date First Orde red Date DISCHARGE PATIENT 1 07/23/2023 documented in this encounter Care Teams Conceptor Relationship Specialty Start Date End Date Phan Garvin MD PCP - General Family Medicine 09/14/22 Phan Garvin MD Family Medicine 09/14/22 documented as of this encounter
--- OUTSIDE RECORDS SUMMARY | 2024-03-15 10:23 | XMS_ITS | Encounter Summary ---
Author Organization [facility] Address [address] [place] [address] Phone Care Team Providers Care Workshop Manager Name Role Phone Phan Garvin MD Primary Care Provider [phone] Phan Garvin MD Unavailable [phone] Encounter Details Date Type Department Care Team (Late st Contact Info) Description 07/16/2023 Telephone [facility] Infectious Diseases [address] [place] [address] [address] [place] [address] Marina Colunga, [facility] Social History Tobacco Use Types Packs/Day [...] on file 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 Chavis, patient aware to submit samples, as she still reports pain and cloudy urine, has follow up scheduled with Urology. * Telephone Encounter - Marina Colunga CMA - 07/16/2023 4:18 PM CDT This patient says that she is in a lot of pain. Her urine is cloudy again. She want another urine specimen done. Please call the patient at [phone]. documented in this encounter Plan of Treatment Not on file documented as of this encounter Visit Diagnoses Not on filedocumented in this encounter Care Teams Workshop Manager Relationship Specialty Start Date End Date Phan Garvin MD PCP - General Family Medicine 09/14/22 Phan Garvin MD Family Medicine 09/14/22 documented as of this encounter
--- OUTSIDE RECORDS SUMMARY | 2024-03-15 10:23 | XMS_ITS | Encounter Summary ---
Author Organization [facility] Address [address] [place] [address] Phone Care Team Providers Care Practice Nurse Name Role Phone Phan Garvin MD Primary Care Provider [phone] Phan Garvin MD Unavailable [phone] Encounter Details Date Type Department Care Team (Late st Contact Info) Description 07/10/2023 Orders Only [facility] Infectious Diseases [address] [place] [address] [address] [place] [address] Donnie Chavis MD [address] [facility] [address] [place] [address] Recurrent UTI (Primary Dx) Social History Tobacco [...] on file 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 Gender Identity Not on file Sexual Orientation Not on file 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 Not on file Not on file documented as of this encounter Plan of Treatment Scheduled Orders Name Type Priority Associated Diagnoses Orde r Schedule Urinalysis reflex to microscopic and culture Urine Microbiology Routine Recurrent UTI Expected: 07/10/2023, Expires: 07/09/2024 documented as of this encounter Procedures Procedure Name Priority Date/Time Associated Diagnosis Comments URINALYSIS, COMPLETE Routine 07/10/2023 12:59 PM CDT URINE CULTURE Routine 07/10/2023 12:59 PM CDT Recurrent UTI documented in this encounter Results * (ABNORMAL) Urinalysis, Complete (07/10/2023 12:59 PM CDT) Color, ur YELLOW YELLOW [facility] Appearance, ur CLOUDY(A) CLEAR [facility] Specific gravity 1.013 1.001 - 1.035 [facility] pH, ur 5.5 5.0 - 8.0 [facility] Glucose, ur NEGATIVE NEGATIVE [facility] Bilirubin, ur NEGATIVE NEGATIVE [facility] Ketones, ur NEGATIVE NEGATIVE [facility] Blood, ur 2+(A) NEGATIVE [facility] Protein, ur, quant TRACE(A) NEGATIVE [facility] Nitrites, ur NEGATIVE NEGATIVE [facility] Leukocyte esterase, ur 3+(A) NEGATIVE [facility] WBC, ur > OR = 60(A) < OR = 5 /HPF [facility] RBC, ur 20-40(A) < OR = 2 /HPF [facility] Epithelial cells, squamous, ur 0-5 < OR = 5 /HPF [facility] Bacteria, ur, quant MANY(A) NONE SEEN /HPF [facility] Hyaline cast NONE SEEN NONE SEEN /LPF [facility] Note [facility] Comment: This urine was analyzed for the presence of WBC, RBC, bacteria, casts, and other formed elements. Only those elements seen were reported. 07/10/2023 12:5 9 PM CDT 07/10/2023 1:01 PM CDT Narrative [facility] - 07/11/2023 7:51 PM CDT FASTING:NO FASTING: NO Donnie Chavis MD LAB URINE ORDERABLES Final R esult Performing Organization Address [facility] de Phone Number [address] [address] [place] [address] * Urine culture Urine, clean voided (07/10/2023 12:59 PM CDT) Urine culture [facility] Comment: ??CULTURE, URINE, ROUTINE ?Micro Number: ?[id number] ??Test Status: ? Final ??Specimen Source: ?? Urine, clean catch ??Specimen Quality: ??Adequate ??Result: ?No Growth Urine, clean voided 07/10/2023 12:59 PM CDT 07/10/2023 1:01 PM CDT Narrative [facility] - 07/11/2023 7:51 PM CDT FASTING:NO FASTING: NO Donnie Chavis MD LAB MICROBIOLOGY - GENERAL O RDERABLES Final Result Performing Organization Address [facility] de Phone Number [place] [address] [place] [address] documented in this encounter Visit Diagnoses Diagnosis Recurrent UTI- Primary Urinary tract infection, site not specified documented in this encounter Care Teams Practice Nurse Relationship Specialty Start Date End Date Phan Garvin MD PCP - General Family Medicine 09/14/22 Phan Garvin MD Family Medicine 09/14/22 documented as of this encounter
--- OUTSIDE RECORDS SUMMARY | 2024-03-15 10:23 | XMS_ITS | Encounter Summary ---
Author Organization [facility] Address [address] [place] [address] Phone Care Team Providers Care Rail Bonder Name Role Phone Phan Garvin MD Primary Care Provider [phone] Phan Garvin MD Unavailable [phone] Encounter Details Date Type Department Care Team (Late st Contact Info) Description 07/05/2023 Orders Only [facility] Infectious Diseases [address] [place] [address] [address] [place] [address] Donnie Chavis MD [address] [facility] [address] [place] [address] Social History Tobacco Use Types Packs/Day Years [...] on file 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 Gender Identity Not on file Sexual Orientation Not on file 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 Not on file Not on file documented as of this encounter Ordered Prescriptions Prescription Sig Dispense Quantity Refills Last Filled Start Date End Date nitrofurantoin monohydrate (MACROBID) 100 mg capsule Take 1 capsule (100 mg total) by mouth 2 (two) times a day for 5 days 10 capsule 07/05/2023 documented in this encounter Plan of Treatment Not on file documented as of this encounter Visit Diagnoses Not on filedocumented in this encounter Care Teams Rail Bonder Relationship Specialty Start Date End Date Phan Garvin MD PCP - General Family Medicine 09/14/22 Phan Garvin MD Family Medicine 09/14/22 documented as of this encounter
--- OUTSIDE RECORDS SUMMARY | 2024-03-15 10:23 | XMS_ITS | Encounter Summary ---
Author Organization 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 Chavis's recommendations on a urogynecologist. * Telephone Encounter - Zari Thomas BS - 07/09/2023 1:10 PM CDT Second call- Pt said her sister called because she was looking at her chart and said she has bladder diverticulum- she was wondering if there was another specialist that Dr Chavis could refer her to or help herwith treating that specifically [phone] documented in this encounter Plan of Treatment Not on file documented as of this encounter Visit Diagnoses Not on filedocumented in this encounter Care Teams Park Aide Relationship Specialty Start Date End Date Phan Garvin MD PCP - General Family Medicine 09/14/22 Phan Garvin MD Family Medicine 09/14/22 documented as of this encounter
--- OUTSIDE RECORDS SUMMARY | 2024-03-15 10:23 | XMS_ITS | Encounter Summary ---
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 Reports pelvic pain, discomfort, cloudy urine, frequency, urgency, denies fever. Forwarding information to Dr. Chavis. * Telephone Encounter - Zari Thomas BS - 07/09/2023 8:09 AM CDT Pt said today is the last day of the antibiotics she is better but she does not think the UTI is over- should she get another UA? [phone] documented in this encounter Plan of Treatment Not on file documented as of this encounter Visit Diagnoses Not on filedocumented in this encounter Care Teams Watch Parts Inspector Relationship Specialty Start Date End Date Phan Garvin MD PCP - General Family Medicine 09/14/22 Phan Garvin MD Family Medicine 09/14/22 documented as of this encounter
--- OUTSIDE RECORDS SUMMARY | 2024-03-15 10:23 | XMS_ITS | Encounter Summary ---
Author Organization [facility] Address [address] [place] [address] Phone Care Team Providers Care Utility Sales Representative Name Role Phone Phan Garvin MD Primary Care Provider [phone] Phan Garvin MD Unavailable [phone] Encounter Details Date Type Department Care Team (Late st Contact Info) Description 07/19/2023 Telephone [facility] Obstetrics and Gynecology [address] [facility] [address] [place] [address] Beth Santamaria, JOHN Social History Tobacco Use Types Packs/Day Years Used Date Smoking Tobacco: Never Smokeless Tobacco: Never Alcohol Use Standard Drinks/Week Comments Yes 0 (1 standard drink = 0.6 oz pur e alcohol) [facility] Utilities Answer Date Recorded In the past 12 months has [place], gas, oil, or water [employer] threatened to shut off services in your [...] How often do you attend chur or yarsanism services? 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 Chavis advised her to follow up with Dr. Melgar due to pain with urination. Patient states she has left two UACX within the past two weeks which are both negative for UTI. Message routed to Dr. Melgar to review. documented in this encounter Plan of Treatment Not on file documented as of this encounter Visit Diagnoses Not on filedocumented in this encounter Care Teams Utility Sales Representative Relationship Specialty Start Date End Date Phan Garvin MD PCP - General Family Medicine 09/14/22 Phan Garvin MD Family Medicine 09/14/22 documented as of this encounter
--- OUTSIDE RECORDS SUMMARY | 2024-03-15 10:23 | XMS_ITS | Encounter Summary ---
Author Organization [facility] Address [address] [place] [address] Phone Care Team Providers Care Twine Reeling Machine Operator Name Role Phone Phan Garvin MD Primary Care Provider [phone] Phan Garvin MD Unavailable [phone] Encounter Details Date Type Department Care Team (Late st Contact Info) Description 07/19/2023 Telephone [facility] Infectious Diseases [address] [place] [address] [address] [place] [address] Zari Thomas BS Social History Tobacco Use Types Packs/Day Years Used Date Smoking Tobacco: Never Smokeless Tobacco: Never Alcohol Use Standard Drinks/Week Comments Yes 0 (1 standard drink = 0.6 oz pur e alcohol) [facility] Utilities Answer Date Recorded In the past 12 months has [employer], oil, or water [employer] threatened to shut off services in your [...] often do you attend chur ch or synagogue services? 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 Patient reporting unrelieved urinary pain, despite OTC medication, Dr. Chavis aware, advised patient to follow up with PRINTING MACHINE OPERATOR. * Telephone Encounter - Zari Thomas BS - 07/19/2023 8:26 AM CDT PT was wondering if her urine culture has come in yet [phone] documented in this encounter Plan of Treatment Not on file documented as of this encounter Visit Diagnoses Not on filedocumented in this encounter Care Teams Twine Reeling Machine Operator Relationship Specialty Start Date End Date Phan Garvin MD PCP - General Family Medicine 09/14/22 Phan Garvin MD Family Medicine 09/14/22 documented as of this encounter
--- OUTSIDE RECORDS SUMMARY | 2024-03-15 10:24 | XMS_ITS | Encounter Summary ---
Author Organization [facility] Address [address] [place] [address] Phone Care Team Providers Care Optics Manufacturing Technician Name Role Phone Phan Garvin MD Primary Care Provider [phone] Phan Garvin MD Unavailable [phone] Encounter Details Date Type Department Care Team (Late st Contact Info) Description 06/29/2023 Telephone [facility] Infectious Diseases [address] [place] [address] [address] [place] [address] Marina Colunga, [facility] Social History Tobacco Use Types Packs/Day [...] on file 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 Stool testing negative, patient feeling well overall, reports frequent bowel movements, denies diarrhea. * Telephone Encounter - Marina Colunga CMA - 06/29/2023 8:22 AM CDT This patient want to know has her specimen been evaluated and what are the results of the test? Forquestions, please call the patient at [phone]. documented in this encounter Plan of Treatment Not on file documented as of this encounter Visit Diagnoses Not on filedocumented in this encounter Care Teams Optics Manufacturing Technician Relationship Specialty Start Date End Date Phan Garvin MD PCP - General Family Medicine 09/14/22 Phan Garvin MD Family Medicine 09/14/22 documented as of this encounter
--- OUTSIDE RECORDS SUMMARY | 2024-03-15 10:24 | XMS_ITS | Encounter Summary ---
Author Organization [facility] Address [address] [place] [address] Phone Care Team Providers Care Insurance Solicitor Name Role Phone Phan Garvin MD Primary Care Provider [phone] Phan Garvin MD Unavailable [phone] Encounter Details Date Type Department Care Team (Late st Contact Info) Description 06/21/2023 Telephone [facility] Infectious Diseases [address] [place] [address] [address] [place] [address] Tessa Diaz, [facility] Social History Tobacco Use Types Packs/Day Years [...] on file 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 Reports loose mildly formed stool today. Patient agreed with plan to monitor and follow up tomorrow and test stool if needed. * Telephone Encounter - Tessa Diaz LCSW - 06/21/2023 9:25 AM CDT Patient took the last of her medications 3 weeks ago. Then, patient ate a big meal the following week, the next day she went to the bathroom 4X and it was solid but flew out of me . Last night, she had another salad, and she has gone to the toilet 4X this morning. Is this a food issue, a stomach issue? Patient wants to know what should she do? Patient is at [phone] documented in this encounter Plan of Treatment Not on file documented as of this encounter Visit Diagnoses Not on filedocumented in this encounter Care Teams Insurance Solicitor Relationship Specialty Start Date End Date Phan Garvin MD PCP - General Family Medicine 09/14/22 Phan Garvin MD Family Medicine 09/14/22 documented as of this encounter
--- OUTSIDE RECORDS SUMMARY | 2024-03-15 10:24 | XMS_ITS | Encounter Summary ---
Author Organization [facility] Address [address] [place] [address] Phone Care Team Providers Care Power Press Supervisor Name Role Phone Phan Garvin MD Primary Care Provider [phone] Phan Garvin MD Unavailable [phone] Encounter Details Date Type Department Care Team (Late st Contact Info) Description 07/05/2023 Telephone [facility] Infectious Diseases [address] [place] [address] [address] [place] [address] Zari Thomas BS Social History [...] on file 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 Chavis. Left voicemail to instruct patient to stop HIPREX medication while on antibiotic. * Telephone Encounter - Zari Thomas BS - 07/05/2023 11:58 AM CDT Pt called back asking if she should still be taking her other medications on top of the new one prescribed [phone] * Telephone Encounter - Judit Sanchez RN - 07/05/2023 11:44 AM CDT Urine culture results sent to Dr. Chavis, called patient with update, will follow up with provider's response. * Telephone Encounter - Zari Thomas BS - 07/05/2023 8:20 AM CDT Pt would like to discuss her UA with Nurse [phone] documented in this encounter Plan of Treatment Not on file documented as of this encounter Visit Diagnoses Not on filedocumented in this encounter Care Teams Power Press Supervisor Relationship Specialty Start Date End Date Phan Garvin MD PCP - General Family Medicine 09/14/22 Phan Garvin MD Family Medicine 09/14/22 documented as of this encounter
--- OUTSIDE RECORDS SUMMARY | 2024-03-15 10:24 | XMS_ITS | Encounter Summary ---
Author Organization [facility] Address [address] [place] [address] Phone Care Team Providers Care Pipe Cleaner Name Role Phone Phan Garvin MD Primary Care Provider [phone] Phan Garvin MD Unavailable [phone] Encounter Details Date Type Department Care Team (Late st Contact Info) Description 06/25/2023 Orders Only [facility] Infectious Diseases [address] [place] [address] [address] [place] [address] Donnie Chavis MD [address] [facility] [address] [place] [address] Diarrhea of presumed infectious origin (Primary Dx) Social History Tobacco Use Types [...] on file 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 Gender Identity Not on file Sexual Orientation Not on file 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 Final ??Specimen Source: ?? Stool ??Specimen Quality: ??Adequate ??GDH Antigen: ? Not Detected ??Toxin A and B: ? Not Detected ??COMMENT: ? No toxigenic C. difficile detected ? For additional information, please refer to ? http://education.[employer]faq/SBK603 ? (This link is being provided for ? informational/educational purposes only.) Stool 06/27/2023 10:0 3 AM CDT 06/28/2023 3:18 AM CDT Narrative [facility] - 06/28/2023 10:23 AM CDT FASTING:NO FASTING: NO us Donnie Chavis MD LAB MICROBIOLOGY - GENERAL O RDERABLES Final Result [facility] [address] [place] [address] documented in this encounter Visit Diagnoses Diagnosis Diarrhea of presumed infectious origin- Primary documented in this encounter Care Teams Pipe Cleaner Relationship Specialty Start Date End Date Phan Garvin MD PCP - General Family Medicine 09/14/22 Phan Garvin MD Family Medicine 09/14/22 documented as of this encounter
--- OUTSIDE RECORDS SUMMARY | 2024-03-15 10:24 | XMS_ITS | Encounter Summary ---
Author Organization [facility] Address [address] [place] [address] Phone Care Team Providers Care Crop Setting Out Machine Operator Name Role Phone Phan Garvin MD Primary Care Provider [phone] Phan Garvin MD Unavailable [phone] Encounter Details Date Type Department Care Team (Late st Contact Info) Description 06/04/2023 Telephone [facility] Infectious Diseases [address] [place] [address] [address] [place] [address] Hari Dixon, [facility] Social History Tobacco Use Types Packs/Day Years [...] on file 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 Gender Identity Not on file Sexual Orientation Not on file 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 Not on file Not on file documented as of this encounter Miscellaneous Notes * Telephone Encounter - Hari Dixon RPh - 06/04/2023 12:41 PM CDT Last day of vanc - 06/04 Mag citrate - 06/05 in the afternoon Vowst in the morning before breakfast - 06/06- 06/08 documented in this encounter Plan of Treatment Not on file documented as of this encounter Visit Diagnoses Not on filedocumented in this encounter Care Teams Crop Setting Out Machine Operator Relationship Specialty Start Date End Date Phan Garvin MD PCP - General Family Medicine 09/14/22 Phan Garvin MD Family Medicine 09/14/22 documented as of this encounter
--- OUTSIDE RECORDS SUMMARY | 2024-03-15 10:24 | XMS_ITS | Encounter Summary ---
Author Organization [facility] Address [address] [place] [address] Phone Care Team Providers Care Flotation Operator Name Role Phone Phan Garvin MD Primary Care Provider [phone] Phan Garvin MD Unavailable [phone] Encounter Details Date Type Department Care Team (Late st Contact Info) Description 05/22/2023 Orders Only [facility] Infectious Diseases [address] [place] [address] [address] [place] [address] Donnie Chavis MD [address] [facility] [address] [place] [address] Social History Tobacco Use Types Packs/Day Years [...] on file 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 Gender Identity Not on file Sexual Orientation Not on file 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 Not on file Not on file documented as of this encounter Ordered Prescriptions Prescription Sig Dispense Quantity Refills Last Filled Start Date End Date fecal microbiota, live-jslm (Rebyota) 150 mL enema Insert 150 mL into the rectum once for 1 dose 150 mL 05/22/2023 05/22/2023 fecal microbio spore,live-brpk capsule Take 4 tablet/capsu le by mouth daily for 3 days 12 capsule 05/22/2023 05/25/2023 documented in this encounter Plan of Treatment Not on file documented as of this encounter Visit Diagnoses Not on filedocumented in this encounter Care Teams Flotation Operator Relationship Specialty Start Date End Date Phan Garvin MD PCP - General Family Medicine 09/14/22 Phan Garvin MD Family Medicine 09/14/22 documented as of this encounter
--- OUTSIDE RECORDS SUMMARY | 2024-03-15 10:24 | XMS_ITS | Encounter Summary ---
Author Organization [facility] Address [address] [place] [address] Phone Care Team Providers Care Coal Dumping Equipment Operator Name Role Phone Phan Garvin MD Primary Care Provider [phone] Phan Garvin MD Unavailable [phone] Encounter Details Date Type Department Care Team (Late st Contact Info) Description 05/23/2023 Telephone [facility] Obstetrics and Gynecology [address] [facility] 7th Floor [address] [place] [address] Maria Esther Brown, RN Social [...] on file 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 Order sent today. documented in this encounter Plan of Treatment Not on file documented as of this encounter Visit Diagnoses Not on filedocumented in this encounter Care Teams Coal Dumping Equipment Operator Relationship Specialty Start Date End Date Phan Garvin MD PCP - General Family Medicine 09/14/22 Phan Garvin MD Family Medicine 09/14/22 documented as of this encounter
--- OUTSIDE RECORDS SUMMARY | 2024-03-15 10:24 | XMS_ITS | Encounter Summary ---
Author Organization [facility] [place] [facility] Address [address] [place] [address] Phone Care Team Providers Care Radon Inspector Name Role Phone Phan Garvin MD Primary Care Provider [phone] Phan Garvin MD Unavailable [phone] Encounter Details Date Type Department Care Team (Late st Contact Info) Description 06/22/2023 Telephone [facility] Infectious Diseases [address] [place] [address] [address] [place] [address] Grace Mallory, JOHN Social History Tobacco Use Types Packs/Day [...] on file 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 Chavis. Patient aware and will submit sample today or tomorrow. Provided location and hours for [facility] in [place], [place]. * Telephone Encounter - Judit Sanchez RN - 06/22/2023 12:07 PM CDT Discussed condition with patient and reported to Dr. Chavis will follow up with provider's response. * Telephone Encounter - Grace Mallory RN - 06/22/2023 11:44 AM CDT Patient is calling back today. Pain in pelvic area and today was incontinent (brown/pus looking stool). No fever, no blood in stool. She is unclear if this is c.diff and wondered if she should do stool study. documented in this encounter Plan of Treatment Not on file documented as of this encounter Visit Diagnoses Not on filedocumented in this encounter Care Teams Radon Inspector Relationship Specialty Start Date End Date Phan Garvin MD PCP - General Family Medicine 09/14/22 Phan Garvin MD Family Medicine 09/14/22 documented as of this encounter
--- OUTSIDE RECORDS SUMMARY | 2024-03-15 10:24 | XMS_ITS | Encounter Summary ---
Author Organization [facility] Address [address] [place] [address] Phone Care Team Providers Care Director Alumni Relations Name Role Phone Phan Garvin MD Primary Care Provider [phone] Phan Garvin MD Unavailable [phone] Reason for Referral * Consultation (Routine) - Closed Specialty Diagnoses / Procedures Referred By Dacia tan Referred To Contact Urology Diagnoses Diverticulum of bladder Poncho Melgar MD [address] [place] [address] Phone: tel: fax: Philippe Ambriz MD [address] [facility] [address] [place] [address] Phone: tel: fax: Referral ID Status Reason Start Date Expiration Date V isits Requested Visits Authorized [id number] Closed Specialty Services Required 05/21/2023 06/19/2024 1 1 Question Answer Please select the performing region: [facility] (All Locations) [167] To provider: PHILIPPE AMBRIZ [[id number]] Comments Evaluation for surgical excision of bladder diverticulum. * Consultation (Routine) - Pending Review Specialty Diagnoses / Procedures Referred By Dacia tan Referred To Contact Physical Therapy Diagnoses Pelvic floor dysfunction in female Talia, Poncho Dandre, MD [address] [place] [address] Phone: tel: fax: [facility] (All Locations) Referral ID Status Reason Start Date Expiration Date Visits Requested Visits Authorized [id number] Pending Review Specialty Services Required 05/21/2023 06/19/2024 12 12 Question Answer PTRFR PT Evaluate and Treat Therapy options discussed with patient? Yes Location provided for therapy services is: Patient requested/Patient preferred Please select the performing region: [facility] (All Locations) [167] Comments [facility] [address] (11) Reason for Visit * Reason Comments Post-op Encounter Details Date Type Department Care Team (Late st Contact Info) Description 05/21/2023 10:40 AM CDT Office Visit [facility] Obstetrics and Gynecology [address] 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 on file Not on file Not on file documented as of this encounter Last Filed Vital Signs Vital Sign Reading Time Taken Comments Blood Pressure 174/99 05/21/2023 10:40 AM CDT Pulse - - Temperature - - Respiratory Rate - - Oxygen Saturation - - Inhaled Oxygen Concentration - - Weight 71.3 kg (157 lb 1.6 oz) 05/21/2023 10:40 AM CDT Height 160 cm (5' 3 ) 05/21/2023 10:40 AM CDT Body Mass Index 27.83 05/21/2023 10:40 AM CDT documented in this encounter Ordered Prescriptions Prescription Sig Dispense Quantity Refills Last Filled Start Date End Date methenamine (HIPREX) 1 gram tabletIndications: UTI prophylaxis Take 1 tablet (1 g total) by mouth 2 (two) times a day with meals 60 tablet 3 05/21/2023 08/31/2023 documented in this encounter Progress Notes * Poncho Melgar MD - 05/21/2023 10:40 AM CDT Maria A Rodriguezjose juanadrien is 6 weeks post-operative from Cystoscopy and BIOPSY BLADDER x5 - FULGURATION AND MANUAL IRRIGATION OF THE BLADDER on 04/11/2023 She has a history of recurrent UTI and neurogenic bladder. She was discharged home with recommendation to use CISC. She is unable to self cath and has performed this twice. 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 She has had C. Diff three times in the lastyear. Today she reports chronic burning of her perineum and urinary urgency. She denies vaginal bleeding and hematuria. She reports difficulty with micturition and chronic cloudy urine. She does not feel that she empties her bladder well. She is not performing CISC. She is using vaginal estrogen two times a week. She is using cranberry tablets. She recently saw Dr. Chavis for consultation regarding c. Diff. He recommended starting methenamine. 04/11/23 Op Finding: Initial findings of cystoscopy revealed desquamation. After irrigation, five diverticulum were identified with two large sized and three small sized; the largest was posterior andimmediately cephalad of the trigone. The trigone was in appropriate location and the ureteral orifices were identified and bilateral jets were visualized throughout the case. There was erythema posteriorly that was slightly raised and the patch measured approximately 7x5cm in the cephalad direction. The sidewalls were normal in appearance and the anterior wall appeared thickened. Inside the diverticula, no lesions were identified. 04/11/23 Pathology: A. Bladder, biopsy - Urothelial mucosa with acute and chronic inflammation, granulation tissue, squamous metaplasia, and reactive epithelial changes - No evidence of malignancy UDS: Diagnosis: 1. Abnormal sensation (Delayed 1st Urge) 2. NORM (only at CKJ=146 mls, cough) 3. DO at 400mls 4. Incomplete bladder emptying 5. Dysfunctional voiding OBJECTIVE: Vitals: Most Recent : Vitals: 05/21/23 1040 BP: (!) 174/99 Weight: 157 lb 1.6 oz (71.3 kg) Height: 160 cm (5' 3 ) Physical Exam: CONSTITUTIONAL: Well developed. Well nourished. RESPIRATORY: Clear to auscultation bilaterally. Normal respiratory effort. CARDIOVASCULAR: Regular rate and rhythm. Normal heart sounds. No murmurs. Normal peripheral vascular exam. ABDOMINAL: Abdomen, soft and nontender. PSYCHIATRIC: Oriented X 3. GENITOURINARY: External Genitalia: Normal appearance, no lesions. Urethral Meatus: No lesions or prolapse. Urethra: No masses or tenderness. Bladder: Mild tenderness to palpation. Vagina: Atrophic changes noted. Cervix: Surgically absent. Uterus: surgically absent Adnexa/Parametrial: No palpable masses, no tenderness. Sphincter Tone at rest: present. ASSESSMENT: Maria A Peralta is a 82 y.o. No obstetric history on file. female 6 weeks post-operative from a cystoscopy, bladder biopsy and clot evacuation . PLAN: Recurrent UTI: She has been given a standing urine culture order to use when she has symptoms. She was instructed to call our office either after she has given a specimen or with signs or symptoms ofan UTI. A urine specimen will be sent to assess for an UTI. Empiric treatment will be started if indicated based on symptoms. We discussed UTI prevention strategies including use of vaginal estrogen,Vitamin C supplementation, D-mannose, methenamine, cranberry tablet supplementation, voiding after intercourse, scheduled voiding every 2-3 hours, and antibiotic suppression. She will plan to use thefollowing UTI prevention strategies: use of vaginal estrogen,, methenamine hippurate 1g every 12 hours, and cranberry tablet supplementation. Bladder diverticulum: Bladder diverticulum noted on cystoscopy and ultrasound. Given her history ofincomplete bladder emptying I recommended that she meet with Urology to discuss excision of bladderdiverticulum. A consult order was placed. Incomplete emptying: We discussed that urinary retention is a risk factor for urinary retention. The patient has declined clean intermittent self catheterization. We discussed possible excision of bladder diverticulum and consideration of a suprapubic catheter as next steps. Pelvic floor myofascial dysfunction/pain/spasms: We discussed the role that her pelvic floor muscledysfunction is likely playing in her urinary symptoms and pelvic floor symptoms. Management optionsfor levator ani/obturator pain/spasm were discussed including pelvic floor physical therapy/NSAIDs/muscle relaxants/vaginal icing. A prescription for PFPT was given as well as vaginal icing supplies. Vaginal atrophy: We discussed the use of vaginal estrogen cream. I discussed the WHI study and the risks of systemic estrogen use. I explained that with vaginal application of 1g 2X per week minimal systemic absorption of estrogen occurs. To avoid stimulation of the uterus, estrogen should be applied to the lower 2/3 of the vagina. We discussed the risks of not using the cream including atrophy, erosion, increased risk of UTI. At the end of the discussion the patient desires to use and will consider using vaginal estrogen. ATTENDING ATTESTATION I was present for all office procedures documented above. I was personally present during and performed the physical examination with Dr. Altman. Dr. Altman and I contributed to the documentation and I have personally performed a history, physical examination, and, the medical decision making. Poncho Melgar MD documented in this encounter Plan of Treatment Scheduled Referrals Name Type Priority Associated Diagnoses Orde r Schedule Ambulatory referral order to Physical Therapy - Outpatient Referral Routine Pelvic floor dysfunction in female Ordered: 05/21/2023 Ambulatory referral to Urology Outpatient Referral Routine Diverticulum of bladder Ordered: 05/21/2023 documented as of this encounter Visit Diagnoses Diagnosis Recurrent UTI- Primary Urinary tract infection, site not specified Complicated UTI (urinary tract infection) Vaginal atrophy Postmenopausal atrophic vaginitis Lesion of bladder Unspecified disorder of bladder Pelvic floor dysfunction in female Diverticulum of bladder documented in this encounter Historical Medications * This list may reflect changes made after this encounter. vancomycin (VANCOCIN) 125 mg capsule PLEASE SEE ATTACHED FOR DETAILED DIRECTIONS 4 added in this encounter Care Teams Director Alumni Relations Relationship Specialty Start Date End Date Phan Garvin MD PCP - General Family Medicine 09/14/22 Phan Garvin MD Family Medicine 09/14/22 documented as of this encounter
--- OUTSIDE RECORDS SUMMARY | 2024-03-15 10:24 | XMS_ITS | Encounter Summary ---
Author Organization [facility] Address [address] [place] [address] Phone Care Team Providers Care Roll Form Operator Name Role Phone Phan Garvin MD Primary Care Provider [phone] Phan Garvin MD Unavailable [phone] Reason for Visit * Reason Onset Date Comments Rx Counseling 05/24/2023 Encounter Details Date Type Department Care Team (Late st Contact Info) Description 05/24/2023 Telephone [facility] Infectious Diseases [address] [place] [address] Hari Dixon RPh Rx Counseling Social History Tobacco Use Types Packs/Day Years [...] on file 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 Faxed application/prescription to [facility] for Vowst 4 capsules by mouth once a day for 3 days along with bottle of mag cit. Patient voiced understanding. documented in this encounter Plan of Treatment Not on file documented as of this encounter Visit Diagnoses Not on filedocumented in this encounter Care Teams Roll Form Operator Relationship Specialty Start Date End Date Phan Garvin MD PCP - General Family Medicine 09/14/22 Phan Garvin MD Family Medicine 09/14/22 documented as of this encounter
--- OUTSIDE RECORDS SUMMARY | 2024-03-15 10:24 | XMS_ITS | Encounter Summary ---
Author Organization [facility] Address [address] [place] [address] Phone Care Team Providers Care Primary School Teacher Librarian Name Role Phone Phan Garvin MD Primary Care Provider [phone] Phan Garvin MD Unavailable [phone] Encounter Details Date Type Department Care Team (Late st Contact Info) Description 07/02/2023 Telephone [facility] Infectious Diseases [address] [place] [address] [address] [place] [address] Marina Colunga, [facility] Social History Tobacco Use Types Packs/Day [...] file 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 * Telephone Encounter - Judit Sanchez RN - 07/02/2023 9:52 AM CDT Patient reports back pain, pelvic pain, frequent urination, dark cloudy urine onset yesterday morning. Denies fever, requested be tested for UTI. Information forwarded to Dr. Chavis. * Telephone Encounter - Marina Colunga CMA - 07/02/2023 8:12 AM CDT This patient says that they have a UTI. The patient is requesting that the nurse call in labs for her at [address], like she has done before. For questions, please call the patient at [phone] documented in this encounter Plan of Treatment Not on file documented as of this encounter Visit Diagnoses Not on filedocumented in this encounter Care Teams Primary School Teacher Librarian Relationship Specialty Start Date End Date Phan aGrvin MD PCP - General Family Medicine 09/14/22 Phan Garvin MD Family Medicine 09/14/22 documented as of this encounter
--- OUTSIDE RECORDS SUMMARY | 2024-03-15 10:24 | XMS_ITS | Encounter Summary ---
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 * Telephone Encounter - Zari Thomas BS - 06/07/2023 8:42 AM CDT Patient took magnesium ; at about 9 pm had frequent diarrhea continuing through this morning Patient spoke with pharmacy and took levothyroxine per their instructions. Patient contact @ [phone] documented in this encounter Plan of Treatment Not on file documented as of this encounter Visit Diagnoses Not on filedocumented in this encounter Care Teams Cad Draftsman Relationship Specialty Start Date End Date Phan Garvin MD PCP - General Family Medicine 09/14/22 Phan Garvin MD Family Medicine 09/14/22 documented as of this encounter
--- OUTSIDE RECORDS SUMMARY | 2024-03-15 10:24 | XMS_ITS | Encounter Summary ---
Author Organization [facility] Address [address] [place] [address] Phone Care Team Providers Care Paving Supervisor Name Role Phone Phan Garvin MD Primary Care Provider [phone] Phan Garvin MD Unavailable [phone] Encounter Details Date Type Department Care Team (Late st Contact Info) Description 07/02/2023 Orders Only [facility] Infectious Diseases [address] [place] [address] [address] [place] [address] Donnie Chavis MD [address] [facility] [address] [place] [address] Recurrent UTI (Primary Dx) Social History Tobacco [...] on file Legal 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 Gender Identity Not on file Sexual Orientation Not on file 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 file Not on file Not on file documented as of this encounter Plan of Treatment Scheduled Orders Name Type Priority Associated Diagnoses Orde r Schedule Urinalysis reflex to microscopic and culture Urine, clean voided Microbiology Routine Recurrent UTI Expected: 07/02/2023 (Approximate), Expires: 07/01/2024 documented as of this encounter Procedures Procedure Name Priority Date/Time Associated Diagnosis Comments URINALYSIS, COMPLETE Routine 07/03/2023 8:48 AM CDT URINE CULTURE Routine 07/03/2023 8:48 AM CDT Recurrent UTI documented in this encounter Results * (ABNORMAL) Urinalysis, Complete (07/03/2023 8:48 AM CDT) Color, ur DARK YELLOW YELLOW [facility] Appearance, ur TURBID(A) CLEAR [facility] Specific gravity 1.015 1.001 - 1.035 [facility] pH, ur 6.0 5.0 - 8.0 [facility] Glucose, ur NEGATIVE NEGATIVE [facility] Bilirubin, ur NEGATIVE NEGATIVE [facility] Ketones, ur NEGATIVE NEGATIVE [facility] Blood, ur 3+(A) NEGATIVE [facility] Protein, ur, quant 2+(A) NEGATIVE [employer] [facility] Nitrites, ur POSITIVE(A) NEGATIVE [facility] Leukocyte esterase, ur 3+(A) NEGATIVE [facility] WBC, ur PACKED(A) < OR = 5 /HPF [facility] RBC, ur > OR = 60(A) < OR = 2 /HPF [facility] Epithelial cells, squamous, ur 10-20(A) < OR = 5 /HPF [facility] Bacteria, ur, quant MANY(A) NONE SEEN /HPF [facility] Hyaline cast NONE SEEN NONE SEEN /LPF [facility] Note [facility] Comment: This urine was analyzed for the presence of WBC, RBC, bacteria, casts, and other formed elements. Only those elements seen were reported. 07/03/2023 8:48 AM CDT 07/03/2023 8:50 AM CDT [facility] - 07/05/2023 10:34 AM CDT FASTING:NO FASTING: NO Donnie Chavis MD LAB URINE ORDERABLES Final [facility] [address] [place] [address] * (ABNORMAL) Urine culture Urine, clean voided (07/03/2023 8:48 AM CDT) Urine culture (A) [facility] Comment: ??CULTURE, URINE, ROUTINE ?Micro Number: ?[id number] ??Test Status: ? Final ??Specimen Source: ?? Urine, clean catch ??Specimen Quality: ??Adequate ??Result: ?Greater than 100,000 CFU/mL of Escherichia coli ?E.coli ?INT ?? NU ?? AMOX/CLAVULANATE ? S ? <=2 ?? AMP/SULBACTAM ?S ? <=2 ?? CEFAZOLIN ?NR ?<=4 2 ?? CEFEPIME ? S ? <=0.12 ?? CEFTAZIDIME ?S ? <=1 ?? CEFTRIAXONE ?S ? <=0.25 ?? CIPROFLOXACIN ?S ? <=0.06 ?? GENTAMICIN ? S ? <=1 ?? IMIPENEM ? S ? <=0.25 ?? LEVOFLOXACIN ? S ? <=0.12 ?? MEROPENEM ?S ? <=0.25 ?? NITROFURANTOIN ? S ? <=16 ?? PIP/TAZOBACTAM ? S ? <=4 ?? TRIMETHOPRIM/SULFA ? S ? <=20 S=Susceptible ??I=Intermediate ??R=Resistant ??* = Not Tested NR = Not Reported ??NN = See Therapy Comments THERAPY COMMENTS ?Note 1: ?For infections other than uncomplicated UTI ?caused by E. coli, K. pneumoniae or P. mirabilis: ?Cefazolin is resistant if NU > or = 8 mcg/mL. ?(Distinguishing susceptible versus intermediate ?for isolates with NU < or = 4 mcg/mL requires ?additional testing.) ?Note 2: ?For uncomplicated UTI caused by E. coli, ?K. pneumoniae or P. mirabilis: Cefazolin is ?susceptible if NU <32 mcg/mL and predicts ?susceptible to the oral agents cefaclor, cefdinir, ?cefpodoxime, cefprozil, cefuroxime, cephalexin ?and loracarbef. Urine, clean voided 07/03/2023 8:48 AM CDT 07/03/2023 8:50 AM CDT Narrative [facility] - 07/05/2023 10:34 AM CDT FASTING:NO FASTING: NO us Donnie Chavis MD LAB MICROBIOLOGY - GENERAL [place] Final Result [facility] [address] [place] [address] documented in this encounter Visit Diagnoses Diagnosis Recurrent UTI- Primary Urinary tract infection, site not specified documented in this encounter Care Teams Paving Supervisor Relationship Specialty Start Date End Date Phan Garvin MD PCP - General Family Medicine 09/14/22 Phan Garvin MD Family Medicine 09/14/22 documented as of this encounter
--- OUTSIDE RECORDS SUMMARY | 2024-03-15 10:24 | XMS_ITS | Encounter Summary ---
Author Organization [facility] Address [address] [place] [address] Phone Care Team Providers Care Relaster Name Role Phone Phan Garvin MD Primary Care Provider [phone] Phan Garvin MD Unavailable [phone] Encounter Details Date Type Department Care Team (Late st Contact Info) Description 06/22/2023 Orders Only [facility] Infectious Diseases [address] [place] [address] [address] [place] [address] Donnie Chavis MD [address] [facility] [address] [place] [address] Diarrhea of presumed infectious origin (Primary Dx) [...] on file Legal Sex Female 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 Gender Identity Not on file Sexual Orientation Not on file 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 Not on file Not on file documented as of this encounter Plan of Treatment Not on file documented as of this encounter Procedures Procedure Name Priority Date/Time Associated Diagnosis Comments TEST IN QUESTION - NO TEST ON CONTAINER Routine 06/23/2023 9:06 AM CDT CLOSTRIDIUM DIFFICILE TOXIN/GDH WITH REFLEX TO PCR Routine 06/23/2023 9:06 AM CDT Diarrhea of presumed infectious origin documented in this encounter Results * TEST IN QUESTION - NO TEST ON CONTAINER (06/23/2023 9:06 AM CDT) Question/Problem: [facility] Comment: No test(s) are indicated on the requisition for the following specimen(s). Please provide the test code(s) and corresponding test name(s) in your response. SPECIMEN(S) RECEIVED: Specimen RS unneeded [facility] Comment [facility] Comment: REQUESTED INFORMATION AUTHORIZED SIGNATURE TO PREVENT FURTHER DELAYS IN TESTING, PLEASE COMPLETE INFORMATION ABOVE AND FAX TO [phone] TO RESOLVE THIS ORDER. 06/23/2023 9:06 AM CDT 06/24/2023 6:14 PM CDT Narrative [facility] - 06/25/2023 10:21 AM CDT FASTING:NO FASTING: NO us Donnie Chavis MD LAB BLOOD ORDERABLES Final R esult [facility] [address] [place] [address] * Clostridium difficile Toxin/GDH with Reflex to PCR Stool (06/23/2023 9:06 AM CDT) C difficile Toxins/GDH w/refl to PCR [facility] Comment: ??CLOSTRIDIUM DIFFICILE TOXIN/GDH W/REFL TO PCR ?Micro Number: ?[id number] ??Test Status: ? Final ??Specimen Source: ?? Stool ??Specimen Quality: ??Inadequate ??GDH Antigen: ? Test not performed. Specimen received at ? room temperature. ??Toxin A and B: ? Test not performed. ? For additional information, please refer to ? [email or web address] ? (This link is being provided for ? informational/educational purposes only.) Stool 06/23/2023 9:06 AM CDT 06/24/2023 6:[address] [facility] - 06/25/2023 10:21 AM CDT FASTING:NO FASTING: NO us Donnie Chavis MD LAB MICROBIOLOGY - GENERAL O RDERABLES Final Result [facility] [address] [place] [address] documented in this encounter Visit Diagnoses Diagnosis Diarrhea of presumed infectious origin- Primary documented in this encounter Care Teams Relaster Relationship Specialty Start Date End Date Phan Garvin MD PCP - General Family Medicine 09/14/22 Phan Garvin MD Family Medicine 09/14/22 documented as of this encounter
--- OUTSIDE RECORDS SUMMARY | 2024-03-15 10:25 | XMS_ITS | Encounter Summary ---
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 WELDER * Telephone Encounter - Lisha King RN - 04/27/2023 8:38 AM BAR WELDER Spoke with pt, she is wondering if ok to temporarily hold her aspirin due to hematuria. Pt states [facility] has her on aspirin for a-fib after she did not tolerate eliquis. Will forward to [facility]. Please advise. WELDER * Telephone Encounter - Tami Aaron - 04/26/2023 3:18 PM CST Pt states she is currently in [place] and yesterday and today she noticed a light red blood in her urine. States she called her OBGYN and was instructed to contact cardiac rn in regard to continuing or discontinuing Aspirin. Please advise, thank you. Contact: WELDER documented in this encounter Plan of Treatment Not on file documented as of this encounter Visit Diagnoses Not on filedocumented in this encounter Care Teams Counter Top Maker Relationship Specialty Start Date End Date Phan Garvin MD PCP - General Family Medicine 09/14/22 Phan Garvin MD Family Medicine 09/14/22 documented as of this encounter
--- OUTSIDE RECORDS SUMMARY | 2024-03-15 10:25 | XMS_ITS | Encounter Summary ---
Author Organization [facility] Address [address] [place] [address] Phone Care Team Providers Care Citrus Picker Name Role Phone Phan Garvin MD Primary Care Provider [phone] Phan Garvin MD Unavailable [phone] Encounter Details Date Type Department Care Team (Late st Contact Info) Description 05/14/[address] 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 She has talked with ID and the next available date she can be seen is in August. Informed her that Dr. Chavis is a physician andshe already has a referral for UTIs. She will call them back to schedule. Faxed referral to number she provided. HBORHOOD PLANNER documented in this encounter Plan of Treatment Not on file documented as of this encounter Visit Diagnoses Not on filedocumented in this encounter Care Teams Citrus Picker Relationship Specialty Start Date End Date Phan Garvin MD PCP - General Family Medicine 09/14/22 Phan Garvin MD Family Medicine 09/14/22 documented as of this encounter
--- OUTSIDE RECORDS SUMMARY | 2024-03-15 10:25 | XMS_ITS | Encounter Summary ---
Author Organization [facility] Address [address] [place] [address] Phone Care Team Providers Care Sustainability Project Coordinator Name Role Phone Phan Garvin MD Primary Care Provider [phone] Phan Garvin MD Unavailable [phone] Encounter Details Date Type Department Care Team (Late st Contact Info) Description 04/20/2023 Telephone [facility] Obstetrics and Gynecology [address] [facility] 7th [address] [place] [address] Araceli Anderson RN Social History [...] on file Legal Sex Female 7:11 PM RETAIL INTERIOR DESIGNER Gender Identity Not on file Sexual Orientation Not on file 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 Patient to call PCP if she continues to have bowel issues. [place] INTERIOR DESIGNER * Telephone Encounter - Maria Esther Brown RN - 04/20/2023 11:26 AM RETAIL INTERIOR DESIGNER Received call from patient reporting having BM's with each urination today and wanting to know if this is normal? BM's are normal consistency. She wanted to know if she needed to change her diet. Discussed having a regular diet and to contactPCP for bowel issues. [place] INTERIOR DESIGNER * Telephone Encounter - Araceli Anderson RN - 04/20/2023 8:23 AM RETAIL INTERIOR DESIGNER Patient reports she is saturating a pad with urine 9-10 times a day. She also reports fecal incontinence. She had two small pieces of stool in her underwear when she woke up. She is taking Keflex following her procedure on 04/11. Advised drinking plenty of water and taking Metamucil to bulk up her stool. She is going out of town in a few days. She reports her ultrasound this morning had to be rescheduled due to staffing issue. She has her ultrasounds on 05/07 and . Follow up with Dr. Melgar is on 06/04. [place] INTERIOR DESIGNER documented in this encounter Plan of Treatment Not on file documented as of this encounter Visit Diagnoses Not on filedocumented in this encounter Care Teams Sustainability Project Coordinator Relationship Specialty Start Date End Date Phan Garvin MD PCP - General Family Medicine 09/14/22 Phan Garvin MD Family Medicine 09/14/22 documented as of this encounter
--- OUTSIDE RECORDS SUMMARY | 2024-03-15 10:25 | XMS_ITS | Encounter Summary ---
Author Organization [facility] Address [address] [place] [address] Phone Care Team Providers Care Statistical Modeler Name Role Phone Phan Garvin MD Primary Care Provider [phone] Phan Garvin MD Unavailable [phone] Reason for Visit * Consultation (Routine) - Authorized Specialty Diagnoses / Procedures Referred By Contac t Referred To Contact Infectious Diseases Diagnoses Recurrent UTI C. difficile diarrhea Poncho Melgar MD [address] [place] [address] Phone: tel: fax: [facility] (All Locations) Referral ID Status Reason Start Date Expiration Date Visits Requested Visits Authorized [id number] Authorized Specialty Services Required 05/14/2023 06/12/2024 6 6 Encounter Details Date Type Department Care Team (Late st Contact Info) Description 05/17/2023 8:40 AM CENTRAL OFFICE MECHANIC Office Visit [facility] Infectious Diseases [address] [place] [address] Donnie Chavis MD [address] [place] [address] Screening examination for venereal disease (Primary Dx); C. 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 Not on file Not on file Not on file documented as of this encounter Last Filed Vital Signs Vital Sign Reading Time Taken Comments Blood Pressure 110/71 05/17/2023 8:49 AM CENTRAL OFFICE MECHANIC Pulse 68 05/17/2023 8:49 AM CENTRAL OFFICE MECHANIC Temperature 36.8 ??C (98.2 ??F) 05/17/2023 8:49 AM CS T Respiratory Rate 18 05/17/2023 8:49 AM CENTRAL OFFICE MECHANIC Oxygen Saturation - - Inhaled Oxygen Concentration - - Weight 71.3 kg (157 lb 1.6 oz) 05/17/2023 8:49 A M CENTRAL OFFICE MECHANIC Height 160 cm (5' 3 ) 05/17/2023 8:49 AM CENTRAL OFFICE MECHANIC Body Mass Index 27.83 05/17/2023 8:49 AM CENTRAL OFFICE MECHANIC documented in this encounter Patient Instructions * Patient Instructions* Donnie Chavis MD - 05/17/2023 8:40 AM CENTRAL OFFICE MECHANIC Decrease the vancomycin to once per day. Our pharmacist will reach out to you about your costs for Rebyota (enema) and VoWST (Pill) microbiota treatments. Once you decide which one you woule like to move forward with you will receive additional instructions on next steps. Eat a diet high in plant fiber, such as vegetables, fruits, nuts and whole grains. Use bleach when cleaning the bathroom and kitchen. You can use a janitorial cleaner that has bleach included. A spray or impregnated wipe is fine. Make sure the surface is wet when using a wipe. Please contact us, or have your physician contact us, if you are prescribed an antibiotic. We can help determine if the antibiotic is needed. If it is, we can help select one with a lower risk for C.Diff. RAL OFFICE MECHANIC documented in this encounter Progress Notes * Donnie Chavis MD - 05/17/2023 8:40 AM CST Infectious Disease Outpatient Initial Consult Note Patient Name: Maria A Peralta [facility] INFECTIOUS DISEASES [address] [place] [id number] Patient Active Problem List Diagnosis Code Paroxysmal atrial fibrillation ([facility]) ([facility]) I48.0 Diarrhea R19.7 Diverticulitis K57.92 Anemia D64.9 Recurrent UTI N39.0 Complicated UTI (urinary tract infection) N39.0 Vaginal atrophy N95.2 Pelvic floor dysfunction in female M62.89 History of pelvic surgery Z98.890 Lesion of bladder N32.9 Other thrombophilia ([facility]) D68.69 Subjective HPI Maria A Peralta is a 82 y.o. female who presents to the Infectious Disease clinic for a new consult for recurrent C.difficile infection (CDI). She is accompanied by her friend, Brielle. Much of her care is at [facility] and those records are not available to me. She does not recall many specifics of her symptoms and treatments. At times Brielle assisted with these. Ms. Peralta has a history of recurrent UTI symptoms and recurrent antibiotics dating back to when she had a urogyn procedure for prolapse in 2016. She reports being hospitalized in August for a UTIand during that hospitalization she was diagnosed with CDI. She does not recall what she received for CDI or for how long, but the diarrhea resolved. An outpatient GI visit from 09/28/22 indicates shewas hospitalized for uncomplicated rectosigmoid diverticulitis and then rehospitalized with diarrhea and tested positive for C.difficile (test result not available to me, I believe [facility] used PCR). It also notes she was treated with VAN, and at the time of the visit she was residential through the treatment course and the diarrhea was significantly improved. In October 2022 she traveled to [place]. Due to concern the CDI may recur, she was provided with a CDI treatment just in case. While in [place] she developed diarrhea, took the treatment, and the diarrhea resolved. She did not seek care for that episode and her stool was never tested. Ms Peralta was in [place] in April. She presented to an urgent care on 04/27/23 complaining of 2 days of worsening burning with urination, frequency, hematuria, and urgency. A UA had small LE and no nitrites but a urine culture was sent (was no growth). She was started on Bactrim and started on Miralax of constipation. She the presented to the ED on 04/29/23 complaining of 9/10 LLQ/RLQ pain and pain with urination. She also noted diarrhea since staring the Miralax. A UA had >50 RBC and 0-2 WBC and a urine culture was sent. A CT A/P demonstrated bladder wall thickening c/f UTI, diverticulosis of the colon was noted without evidence of diverticulitis. There was no mention of bowel wall thickening or air fluid levels in the colon. She stool was also tested with a GI panel and it was positive for C.difficile and Vibrio cholerae. The Bactrim was changed to amoxicillin and she was started on oral VAN. It was decided not to treat the V.cholerae since she was not having profuse diarrhea. The urine culture ended up being no growth. She returned to the ED on 05/02/23 for worsening urinary symptoms and diarrhea. Her creatinine was over 2 and she was admitted. A CT A/P demonstrated bladder wall thickening c/f UTI, diverticulosis ofthe colon was noted without evidence of diverticulitis. There was no mention of bowel wall thickening or air fluid levels in the colon. She was admitted and an ID consult was obtained. She had no risk factors for V.cholerae so that was not treated. A urine culture grew 10-20K E.coli, but it was felt she did not have a UTI as her urine cultures on 04/27 and 04/29 were no growth and she did not receive additional UTI treatment antibiotics. It was noted she was having formed BMs in the ED, but it was decided to treat for CDI with a VAN taper. She reports the ID doctor told her to see someone SIOMARA for the CDI and that straight caths should only be used for obtaining urine cultures. Today Ms. Peralta is on VAN BID as part of the taper prescribed in [place], with plans to decrease down to every day, then every other day, then Q3D. She is doing well. She is having 4-6 formed BMs, with BMs right after eating. Prior to having CDI she would have 2-3 formed BMs per day. Ms. Peralta reports being on antibiotics almost continuously since October for UTI symptoms. Carriehaclem had near continuous bladder discomfort since then. She is typically treated with empiric antibiotics while urine cultures are pending. Often times the empiric antibiotics did not cover the bacteria isolated from urine and she ends up on other antibiotics, or the cultures do not grow anything. On questioning, it is not clear urine if worsening of symptoms triggers collection of urine cultures (versus her baseline symptoms) or if they improve with antibiotics. She rates her bladder discomfortas a constant 3/10, and increases up to 9/10 at times and is unbearable. She reports taking D-mannos e, probiotics, and cranberry pills for years, but denies having been on methenamine. She has been seeing Dr. Melgar for her recurrent UTIs since December. He has done a few cystoscopies that have demonstrated significant inflammation on the bladder. 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 Urine culture that day was not growth, but she was started on cipro 04/09 for P..aeruginosa isolated from the urine 04/05. Her diet consists of fruit, yogurt and cereal or sri lankan muffin, lunch is typically soup, and dinner is a salad. Expeller Operator clean her condo. She does not know what product they use but denied is smelling like bleach when they clean. She reported in the course of discussing the impact the CDI and UTI symptoms have had on her that she has not been vaccinated against COVID or flu, and that she refuses to receive vaccinations because she does not trust the government. [facility] STI screening: she has never had an STI and has not been sexually active in over a year. I have reviewed: allergies, current medications, past family history, past medical history, past social history, past surgical history, and problem list ROS Review of Systems All other systems reviewed and are negative. Objective Family History Problem Relation Age of Onset Arthritis Mother Cancer Mother Heart disease Father Anesthesia problems Neg Hx Social History Tobacco Use Smoking status: Never Smokeless tobacco: Never Substance and Sexual Activity Drug use: Never Sexual activity: Defer Alcohol Use: Not At Risk (04/11/2023) AUDIT-C Frequency of Alcohol Consumption: Never Average Number of Drinks: Patient does not drink Frequency of Binge Drinking: Never Allergies Allergen Reactions Prednisone Rash There is no immunization history on file for this patient. Current Outpatient Medications: acidophilus-pectin, citrus 100 million [...] (two) times a week Mon and Fri (Patient not taking: Reported on 04/18/2023), Disp: , Rfl: levothyroxine (SYNTHROID) 25 mcg tablet, Take 1 tablet (25 mcg total) by mouth every morning, Disp:, Rfl: magnesium gluconate 200 mg tablet, 1 tablet (200 mg total), Disp: , Rfl: phenazopyridine (PYRIDIUM) 100 mg tablet, Take 1 tablet (100 mg total) by mouth 3 (three) times a day as needed (urinary pain) for up to 6 doses Take After meals (Patient taking differently: Take 2 tablets (200 mg total) by mouth 3 (three) times a day as needed for urinary pain (urinary pain) Take After meals), Disp: 6 tablet, Rfl: 0 rosuvastatin (CRESTOR) 10 mg tablet, , Disp: , Rfl: sotaloL (BETAPACE) 80 mg tablet, 80 MG ORALLY EVERY 12 HOURS, Disp: 60 tablet, Rfl: 5 turmeric root extract 500 mg capsule, Take by mouth (Patient not taking: Reported on 01/08/2023), Disp: , Rfl: vit C,A-Rk-hljjf-lutein-zeaxan (PreserVision AREDS-2) 250-90-40-1 mg capsule, Take 1 capsule by mouth 2 (two) times a day, Disp: , Rfl: zinc 50 mg tablet, Take 50 mg by mouth every morning, Disp: , Rfl: PHYSICAL EXAM Physical Exam Vitals reviewed. HENT: Head: Normocephalic. Right Ear: External ear normal. Left Ear: External ear normal. Eyes: Conjunctiva/sclera: Conjunctivae normal. Cardiovascular: Rate and Rhythm: Normal rate and regular rhythm. Pulses: Normal pulses. Heart sounds: Normal heart sounds. Pulmonary: Effort: Pulmonary effort is normal. Breath sounds: Normal breath sounds. Abdominal: General: Abdomen is flat. Bowel sounds are normal. There is no distension. Palpations: Abdomen is soft. There is no mass. Tenderness: There is no abdominal tenderness. There is no left CVA tenderness, guarding or rebound. Musculoskeletal: Cervical back: Normal range of motion. Skin: General: Skin is warm and dry. Neurological: General: No focal deficit present. Mental Status: She is alert. Psychiatric: Mood and Affect: Mood normal. Laboratory: OSH records and labs reviewed per HPI Assessment/Plan Ms. Peralta is an 82 year old woman with recurrent UTI / persistent bladder discomfort that waxes and wanes her to see me today for recurrent CDI. Whether or not her urinary symptoms are due to UTIs is in question. She has persistent symptoms that appear to worsen and improve without relation to urine cultures, as evident by the course of events in [place]. The pain became unbearable despite two negative urine cultures and being on antibiotics, and then improved when UTI antibiotics were held by the urine culture grew 10-20K E.coli per ml. She has been on D-mannose and cranberry. She denies having been on methenamine. Whether or not additional investigation into other causes of bladder i nflammation are needed, and management/prevention of UTIs will be deferred to Dr. Melgar, other than I am happy to assist in antibiotic selection if it is felt she actually has a UTI. C. difficile epidemiology and CDI pathogenesis were discussed. The main approach to prevent additional recurrences of CDI is to get the intestinal microbiome into a healthy state. Treatment options were discussed, including VAN taper, FDX taper +/- bezlotoxumab, and live biotherapeutic products (LBP, formerly known as FMT). I have moved away from VAN tapers. Over the last several years, my anecdot al experience is more patients appear to be developing recurrences while on Q3D or QOD VAN. In addition, animal models suggest VAN tapers may actually increase the risk for CDI recurrence. The best available data for the modalities indicate they are all associated with ~40% to 50% relative reduction in recurrence compared to abruptly stopping VAN, without a clear ???winner.?? For LBP, Rebyota and VoWST were recently approved by the FDA and we are able to offer them through our clinic. As there is hypothetical reasons to believe gut microbiota normalization may decrease risk for UTIsand/or antibiotic resistant organism colonization and UTIs, I recommended an LBP approach for her over bezlotoxumab. Another consideration for her with the frequent antibiotic exposures is chronic once per day VAN suppression. However, for now she was instructed to decrease her VAN to once per day and we will investigate her out of pocket costs for Rebyota and VoWST, and plan to move forward withone of those based on her preference once the cost is known. Ms. Peralta was advised to be vaccinated against COVID, influenza, and pneumonia, as these are associated with mortality benefits in people like her and may decrease her risk for antibiotic exposures (and subsequent risk for CDI). She declined at this time. In addition, the patient should use bleach when cleaning in the BR and kitchen. I recommend purchasing an OTC janitorial cleaner with bleach. Bleach wipes are convenient for spot cleaning of the kitchen counters prior to preparing food. Although her diet seems reasonable in these regards, she should also increase plant fiber in her diet (fruits, vegetables, whole grain, nuts) to promote growth of protective bacteria. Metamucil/fiber supplements are not a substitute since that is not a form of fiber that will promote the growth of protective bacteria. There are no currently available probiotics that havebeen found to be effective at preventing CDI. The patient was informed we should be consulted if a physician wanted to prescribe antibiotics for any reason to assist in selection of low CDI risk antibiotics. I do not routinely recommend CDI prophylaxis when the patient is receiving antibiotics for other reasons. Oral VAN is highly disruptive to the colonic microbiota, much more so than traditional high risk antibiotics, including fluoroquinolones, cephalosporins and penicillins. Adding oral VAN in addition to those antibiotics will cause greater microbiome disruption versus if those antibiotics are given alone and increase the risk for CDI when stopped versus if Van was never given. I do not recommend prophylactic [facility]Z11.3): I assessed the patient for any STI risk, per patient she has no history of STI), and no partners in over a year. I assess her to be low risk for STIs. I have spent a total of 85 minutes of my time today with Ms. Peralta, including, but not limited to preparing to see the patient, obtaining the HPI, examining and evaluating the patient, counseling the patient/caregiver, independently interpreting results, documenting information in the health r ecord, and care coordination. Donnie Chavis MD, [facility] Infectious Diseases RAL OFFICE MECHANIC documented in this encounter Plan of Treatment Not on file documented as of this encounter Visit Diagnoses Diagnosis Screening examination for venereal disease- Primary C. difficile diarrhea Intestinal infection due to clostridium difficile Recurrent UTI Urinary tract infection, site not specified Other irritable bowel syndrome documented in this encounter Orders Outpatient Referral Count Last Ordered Date Fir st Ordered Date AMB REFERRAL TO INFECTIOUS DISEASE 1 2023 documented in this encounter Care Teams Statistical Modeler Relationship Specialty Start Date End Date Phan Garvin MD PCP - General Family Medicine 09/14/22 Phan Garvin MD Family Medicine 09/14/22 documented as of this encounter
--- OUTSIDE RECORDS SUMMARY | 2024-03-15 10:25 | XMS_ITS | Encounter Summary ---
Author Organization [facility] Address [address] [place] [address] Phone Care Team Providers Care Food Service Agent Name Role Phone Phan Garvin MD Primary Care Provider [phone] Phan Garvin MD Unavailable [phone] Encounter Details Date Type Department Care Team (Late st Contact Info) Description 05/09/[address] 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
--- OUTSIDE RECORDS SUMMARY | 2024-03-15 10:25 | XMS_ITS | Encounter Summary ---
Author Organization [facility] Address [address] [place] [address] Phone Care Team Providers Care Financial Recording Clerk Name Role Phone Phan Garvin MD Primary Care Provider [phone] Phan Garvin MD Unavailable [phone] Encounter Details Date Type Department Care Team (Late st Contact Info) Description 05/04/2023 Telephone [facility] Obstetrics and Gynecology [address] [place] [address] Araceli Anderson RN Social History [...] on file Legal Sex Female 7:11 PM OUTSIDE SALESMAN Gender Identity Not on file Sexual Orientation Not on file 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 Coli UTI. She rescheduled her ultrasound because she will not be back on Sunday. IDE SALESMAN documented in this encounter Plan of Treatment Not on file documented as of this encounter Visit Diagnoses Not on filedocumented in this encounter Care Teams Financial Recording Clerk Relationship Specialty Start Date End Date Phan Garvin MD PCP - General Family Medicine 09/14/22 Phan Garvin MD Family Medicine 09/14/22 documented as of this encounter
--- OUTSIDE RECORDS SUMMARY | 2024-03-15 10:25 | XMS_ITS | Encounter Summary ---
Author Organization [facility] Healthcare Address [address] [place] [address] Care Team Providers Care Wildland Fire Operations Specialist Name Role Phone Phan Garvin MD Primary Care Provider [phone] Phan Garvin MD Unavailable [phone] Reason for Referral * Diagnostic Imaging (Routine) - Closed Specialty Diagnoses / Procedures Referred By Contac t Referred To Contact Diagnoses Pelvic mass Procedures US Transvaginal Poncho Melgar MD [address] [address] Phone: tel: fax: [facility] (All Locations) Referral ID Status Reason Start Date Expiration Date Visits Re quested Visits Authorized [id number] Closed 04/12/2023 05/11/2024 1 1 LE SECURITY CONSULTANT Reason for Visit * Diagnostic Imaging (Routine) - Closed Specialty Diagnoses / Procedures Referred By Contac t Referred To Contact Diagnoses Pelvic mass Procedures US Transvaginal Poncho Melgar MD [address] [place] [address] Phone: tel: fax: [facility] (All Locations) Referral ID Status Reason Start Date Expiration Date Visits Re quested Visits Authorized [id number] Closed 04/12/2023 05/11/2024 1 1 Encounter Details Date Type Department Care Team (Latest Contact Info) Description 05/10/2023 9:39 AM ORACLE SECURITY CONSULTANT - 05/10/2023 11:59 PM ORACLE SECURITY CONSULTANT Hospital Encounter [facility] - Ultrasound [address], 7th [address], [address] [place] [address] Pelvic mass Discharge Disposition: Discharge to home or self [...] on file Legal Sex Female 7:11 PM ORACLE SECURITY CONSULTANT Gender Identity Not on file Sexual Orientation Not on file 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 Not on file Not on [...] rosuvastatin (CRESTOR) 10 mg tablet 09/24/2019 vit C,T-Rp-xekjv-lute in-zeaxan (PreserVision AREDS-2) 250-90-40-1 mg capsuleIndication s:eye vitamin Take 1 capsule by mouth 2 (two) times a day zinc 50 mg tabletIndications :supplement Take 50 mg by mouth every morning acidophilus-pecti n, citrus 100 million cell-10 mg capsuleIndication s:gut health Take 1 capsule by mouth every morning Not taking 07/20/2023 aspirin 81 mg enteric coated tabletIndications :prevention of thrombosis Take 1 tablet (81 mg total) by mouth nightly 08/23/2023 cefdinir (OMNICEF) 300 mg capsuleIndication s:Urinary Tract/Genitourina ry Infection Take 1 capsule (300 mg total) by mouth 2 (two) times a day 07/23/2023 dicyclomine (BENTYL) 10 mg capsule 05/06/2023 11/27/2023 diphenhydrAMINE (Sleep Aid, diphenhydrAMINE,) 25 mg capsuleIndication s:sleep Take 0.5 tablet/capsul e (12.5 mg total) by mouth nightly as needed for itching or sleep 07/26/2023 magnesium gluconate 200 mg tabletIndications :hypomagnesemia 1 [...] 12 HOURS 60 tablet 5 03/30/2023 09/27/2023 turmeric root extract 500 mg capsule Take by mouth 07/20/2023 documented as of this encounter Discharge Disposition Disposition Code Departure Means Destination Discharge to home or self care documented in this encounter Plan of Treatment Not on file documented as of this encounter Procedures Procedure Name Priority Date/Time Associated Diagnosis Comments US TRANSVAGINAL Schedule Routine, Read Routine (OP Routine) 05/10/2023 9:39 AM ORACLE SECURITY CONSULTANT Pelvic mass documented in this encounter Results * US Transvaginal (05/10/2023 9:39 AM ORACLE SECURITY CONSULTANT) Cul de Sac No free fluid visualized VIEWPOINT Anatomical Region Laterality Modality Pelvis N/A Ultrasound 05/10/2023 9:40 AM ORACLE SECURITY CONSULTANT Impressions 05/10/2023 3:29 PM ORACLE SECURITY CONSULTANT 1- Surgically absent uterus.2- Non-visualization of either ovary.3- The bladder is distended and the fluid within contains low-level internal echoes in its cephlad aspect and more echogenic material in its inferior aspect. There is an out- pouching of the inferior portion of the bladder, possible diverticulum.Pt to be seen by UroGyn following this examination. Narrative Procedure Note Connor Hernandez MD - 05/10/2023 IMPRESSION: 1- Surgically absent uterus.2- Non-visualization of either ovary.3- Thebladder is distended and the fluid within contains low-level internalechoes in its cephlad aspect and more echogenic material in its inferioraspect. There is an out- pouching of the inferior portion of the bladder,possible diverticulum.Pt to be seen by UroGyn following thisexamination. us Poncho Melgar MD IMG US PROCEDURES Final Res ult documented in this encounter Visit Diagnoses Diagnosis Pelvic mass Abdominal or pelvic swelling, mass or lump, unspecified site documented in this encounter Care Teams Wildland Fire Operations Specialist Relationship Specialty Start Date End Date Phan Garvin MD PCP - General Family Medicine 09/14/22 Phan Garvin MD Family Medicine 09/14/22 documented as of this encounter
--- OUTSIDE RECORDS SUMMARY | 2024-03-15 10:25 | XMS_ITS | Encounter Summary ---
Author Organization [facility] Address [address] [place] [address] Phone Care Team Providers Care Makeup Sales Advisor Name Role Phone Phan Garvin MD Primary Care Provider [phone] Phan Garvin MD Unavailable [phone] Reason for Referral * Consultation (Routine) - Authorized Specialty Diagnoses / Procedures Referred By Contac t Referred To Contact Infectious Diseases Diagnoses Recurrent UTI C. difficile diarrhea Poncho Melgar MD [address] [place] [address] Phone: tel: fax: [facility] (All Locations) Referral ID Status Reason Start Date Expiration Date Visits Requested Visits Authorized [id number] Authorized Specialty Services Required 05/14/2023 06/12/2024 6 6 Question Answer Please select the performing region: [facility] (All Locations) [167] # of visits: 1 CER CAPTAIN Encounter Details Date Type Department Care Team (Late st Contact Info) Description 05/14/2023 Orders Only [facility] Obstetrics and Gynecology [address] [facility] 7th Floor [address] [place] [address] Poncho Melgar MD [address] [place] [address] Recurrent UTI (Primary Dx); C. 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 difficile diarrhea Expected: 05/14/2023 (Approximate), Expires: 05/13/2024 documented as of this encounter Visit Diagnoses Diagnosis Recurrent UTI- Primary Urinary tract infection, site not specified C. difficile diarrhea Intestinal infection due to clostridium difficile documented in this encounter Care Teams Makeup Sales Advisor Relationship Specialty Start Date End Date Phan Garvin MD PCP - General Family Medicine 09/14/22 Phan Garvin MD Family Medicine 09/14/22 documented as of this encounter
--- OUTSIDE RECORDS SUMMARY | 2024-03-15 10:25 | XMS_ITS | Encounter Summary ---
Author Organization [facility] Address [address] [place] [address] Phone Care Team Providers Care Master Deputy Sheriff Court Security Name Role Phone Phan Garvin MD Primary Care Provider [phone] Phan Garvin MD Unavailable [phone] Encounter Details Date Type Department Care Team (Late st Contact Info) Description 05/01/2023 Telephone [facility] Obstetrics and Gynecology [address] [facility] 7th [address] [place] [address] Maria Esther Brown, RN Social [...] on file Legal Sex Female 7:11 PM INSULATION SUPERVISOR Gender Identity Not on file Sexual Orientation Not on file 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 Patient remains in [place] presently. Explained that we could email her a release of information form for her to sign and return but patient did not feel up to this . Offered to transfer her to medical records director who could get the release of information form to her. Declined. Discussed having her go to Medical Records in [place] & signing release form there. LATION SUPERVISOR documented in this encounter Plan of Treatment Not on file documented as of this encounter Visit Diagnoses Not on filedocumented in this encounter Care Teams Master Deputy Sheriff Court Security Relationship Specialty Start Date End Date Phan Garvin MD PCP - General Family Medicine 09/14/22 Phan Garvin MD Family Medicine 09/14/22 documented as of this encounter
--- OUTSIDE RECORDS SUMMARY | 2024-03-15 10:25 | XMS_ITS | Encounter Summary ---
Author Organization [facility] Address [address] [place] [address] Phone Care Team Providers Care Carpet Tile Layer Name Role Phone Phan Garvin MD Primary Care Provider [phone] Phan Garvin MD Unavailable [phone] Encounter Details Date Type Department Care Team (Late st Contact Info) Description 05/15/2023 Telephone [facility] Infectious Diseases [address] [place] [address] [address] [place] [address] Marina Colunga, [facility] Social History Tobacco Use Types [...] on file Legal Sex Female 7:11 PM LATIN DANCE INSTRUCTOR Gender Identity Not on file Sexual Orientation Not on file 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 The patient called this morning, asking to be seen soon as possible. N DANCE INSTRUCTOR documented in this encounter Plan of Treatment Not on file documented as of this encounter Visit Diagnoses Not on filedocumented in this encounter Care Teams Carpet Tile Layer Relationship Specialty Start Date End Date Phan Garvin MD PCP - General Family Medicine 09/14/22 Phan Garvin MD Family Medicine 09/14/22 documented as of this encounter
--- OUTSIDE RECORDS SUMMARY | 2024-03-15 10:25 | XMS_ITS | Encounter Summary ---
Author Organization [facility] Address [address] [place] [address] Phone Care Team Providers Care Section Forest Fire Warden Name Role Phone Phan Garvin MD Primary Care Provider [phone] Phan Garvin MD Unavailable [phone] Encounter Details Date Type Department Care Team (Late st Contact Info) Description 04/26/2023 Telephone [facility] Obstetrics and Gynecology [address] [facility] 7th Floor [address] [place] [address] Maria Esther Brown, RN Social [...] on file Legal Sex Female 7:11 PM INSTALLMENT LOAN COLLECTOR Gender Identity Not on file Sexual Orientation Not on file 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 She had a fall at [facility] [place] yesterday and she took ibuprofen for discomfort along with her baby ASA. After taking this combination she experienced the bleeding in urine. Patient informed to go to urgent care in [place] if she feels she is experiencing UTI or continues to have blood in urine. She will contact carpet journeyman in regarding to holding baby ASA. ALLMENT LOAN COLLECTOR documented in this encounter Plan of Treatment Not on file documented as of this encounter Visit Diagnoses Not on filedocumented in this encounter Care Teams Section Forest Fire Warden Relationship Specialty Start Date End Date Phan Garvin MD PCP - General Family Medicine 09/14/22 Phan Garvin MD Family Medicine 09/14/22 documented as of this encounter
--- OUTSIDE RECORDS SUMMARY | 2024-03-15 10:25 | XMS_ITS | Encounter Summary ---
Author Organization [facility] Address [address] [place] [address] Phone Care Team Providers Care Security System Installer Name Role Phone Phan Garvin MD Primary Care Provider [phone] Phan Garvin MD Unavailable [phone] Encounter Details Date Type Department Care Team (Latest Contact Info) Description 05/10/2023 11:00 AM USED BUILDING MATERIALS YARD WORKER Procedure visit [facility] Obstetrics and Gynecology [facility] 7th Floor [address] [place] [address] Recurrent UTI (Primary Dx) Social History Tobacco [...] on file Legal Sex Female 7:11 PM USED BUILDING MATERIALS YARD WORKER Gender Identity Not on file Sexual Orientation Not on file 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 She had been performing CISC but since has stopped due to pain. She was able to empty her bladder after ultrasound but wanted a CISC refresher. The patient was given written and verbal information on self-catheterization and had the opportunity to ask questions. She was then instructed to wash her hands with soap and water for 20 seconds. The skin around the patient's meatus was cleansed with an antiseptic towellette. The patient was then instructed to sheepskin pickler the sterile catheter and use sterile lubricant on the tip. The patient was unable to successfully demonstrate self catheterization with urine return. She would like to see Dr. Melgar sooner than her 06/04 appointment. Supplies and written instructions were sent home with the patient. Time spent with patient: 30 minutes BUILDING MATERIALS YARD WORKER documented in this encounter Plan of Treatment Not on file documented as of this encounter Visit Diagnoses Diagnosis Recurrent UTI- Primary Urinary tract infection, site not specified documented in this encounter Care Teams Security System Installer Relationship Specialty Start Date End Date Phan Garvin MD PCP - General Family Medicine 09/14/22 Phan Garvin MD Family Medicine 09/14/22 documented as of this encounter
--- OUTSIDE RECORDS SUMMARY | 2024-03-15 10:25 | XMS_ITS | Encounter Summary ---
Author Organization [facility] Address [address] [place] [address] Phone Care Team Providers Care Industrial Engineering Director Name Role Phone Phan Garvin MD Primary Care Provider [phone] Phan Garvin MD Unavailable [phone] Reason for Visit * Reason Onset Date Comments Infections 05/07/2023 Encounter Details Date Type Department Care Team (Late st Contact Info) Description 05/07/[address] [facility] Obstetrics and Gynecology [address] [facility] 7th Floor [address] [place] [address] Araceli Anderson RN Infections Social History Tobacco Use Types Packs/Day Years [...] on file Legal Sex Female 7:11 PM PAYABLE MANAGER Gender Identity Not on file Sexual Orientation Not on file 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 She reports she was told she has cystitis and c. Diff. She has been prescribed vancomycin for the c.Diff infection. She states she was told by the doctor at the hospital in [place] that the antibiotics she has been taking for UTIs are going to kill her and she needs to have urine cultures done only by straight cath. Shestates she was told to see an infection specialist at [facility] but they do not accept her insurance. She asked if she needs to keep her ultrasound appointment since she had a CT done at the hospital? Advised her to keep her transvaginal US appt. BLE MANAGER documented in this encounter Plan of Treatment Not on file documented as of this encounter Visit Diagnoses Not on filedocumented in this encounter Care Teams Industrial Engineering Director Relationship Specialty Start Date End Date Phan Garvin MD PCP - General Family Medicine 09/14/22 Phan Garvin MD Family Medicine 09/14/22 documented as of this encounter
--- OUTSIDE RECORDS SUMMARY | 2024-03-15 10:25 | XMS_ITS | Encounter Summary ---
Author Organization [facility] Healthcare Address [address] [place] [address] Care Team Providers Care Laborer Pie Bakery Name Role Phone Phan Garvin MD Primary Care Provider [phone] Phan Garvin MD Unavailable [phone] Encounter Details Date Type Department Care Team (Late st Contact Info) Description 05/07/[address] 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 Pt verbalized understanding. ER UP * Telephone Encounter - [place] Frias - 05/07/2023 11:08 AM HEADER UP Patient is being treated at a [facility] for an E. Coli. She's currently receiving an injection in her belly to prevent blood clots. Pt is not sure the name of the medication. Pt wants to know if she need to go back on the baby aspirin Cb [phone] LVM if she doesn't answer ER UP documented in this encounter Plan of Treatment Not on file documented as of this encounter Visit Diagnoses Not on filedocumented in this encounter Care Teams Laborer Pie Bakery Relationship Specialty Start Date End Date Phan Garvin MD PCP - General Family Medicine 09/14/22 Phan Garvin MD Family Medicine 09/14/22 documented as of this encounter
--- OUTSIDE RECORDS SUMMARY | 2024-03-15 10:25 | XMS_ITS | Encounter Summary ---
Author Organization [facility] Address [address] [place] [address] Phone Care Team Providers Care Sander Operator Name Role Phone Phan Garvin MD Primary Care Provider [phone] Phan Garvin MD Unavailable [phone] Reason for Visit * Reason Onset Date Comments UTI/C. Dif 04/30/2023 Encounter Details Date Type Department Care Team (Late st Contact Info) Description 04/30/2023 Telephone [facility] Obstetrics and Gynecology [facility] 7th Floor [address] [place] [address] Maria Esther Brown RN UTI/C. 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 Diff called Zibrio. She was put on amoxicillin and Vancomycin. Went to [place] ED lasts night because of low abdomen & low back pain spasms. CT scan, UA, blood work. She will request records to be faxed to our office. Patient does not return to [facility] ER DRIER OPERATOR * Telephone Encounter - Maria Esther Brown RN - 04/30/2023 2:16 PM CST Pt left message that she was seen in [facility] for UTI & C. Dif. She is presently taking Amoxicillin and Flagyl. ER DRIER OPERATOR documented in this encounter Plan of Treatment Not on file documented as of this encounter Visit Diagnoses Not on filedocumented in this encounter Care Teams Sander Operator Relationship Specialty Start Date End Date Phan Garvin MD PCP - General Family Medicine 09/14/22 Phan Garvin MD Family Medicine 09/14/22 documented as of this encounter
--- OUTSIDE RECORDS SUMMARY | 2024-03-15 10:26 | XMS_ITS | Encounter Summary ---
Author Organization [facility] Address [address] [place] [address] Phone Care Team Providers Care Cutting Room Supervisor Name Role Phone Phan Garvin MD Primary Care Provider [phone] Phan Garvin MD Unavailable [phone] Reason for Visit * Reason Onset Date Comments pathology result 04/12/2023 Encounter Details Date Type Department Care Team (Late st Contact Info) Description 04/12/2023 Telephone [facility] Obstetrics and Gynecology [address] [facility] 7th Floor [address] [place] [address] Maria Esther Brown, RN pathology result Social History Tobacco Use Types Packs/Day [...] on file Legal Sex Female 7:11 PM ARCHITECTURAL JOB CAPTAIN Gender Identity Not on file Sexual Orientation Not on file 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 Melgar. Patient denied having any questions but relieved that there was no evidence of malignancy. ITECTURAL JOB CAPTAIN * Telephone Encounter - Maria Esther Brown RN - 04/12/2023 4:40 PM CST ----- Message from Poncho Melgar MD sent at 04/12/2023 4:30 PM ARCHITECTURAL JOB CAPTAIN ----- Please let pt know that surg path showed no evidence of malignancy. ITECTURAL JOB CAPTAIN documented in this encounter Plan of Treatment Not on file documented as of this encounter Visit Diagnoses Not on filedocumented in this encounter Care Teams Cutting Room Supervisor Relationship Specialty Start Date End Date Phan Garvin MD PCP - General Family Medicine 09/14/22 Phan Garvin MD Family Medicine 09/14/22 documented as of this encounter
--- OUTSIDE RECORDS SUMMARY | 2024-03-15 10:26 | XMS_ITS | Encounter Summary ---
Author Organization [facility] Healthcare Address [address] [place] [address] Care Team Providers Care Investment Professional Name Role Phone Phan Garvin MD Primary Care Provider [phone] Phan Garvin MD Unavailable [phone] Encounter Details Date Type Department Care Team (Late st Contact Info) Description 03/07/2023 Orders Only [facility] Cardiology [address] 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 Not on file Not on file Not on file documented as of this encounter Plan of Treatment Not on file documented as of this encounter Procedures Procedure Name Priority Date/Time Associated Diagnosis Comments CARDIOLOGY DOCUMENT SCAN Routine 03/04/2023 1:35 PM STUDENT ASSISTANT CARDIOLOGY DOCUMENT SCAN Routine 03/03/2023 1:32 PM STUDENT ASSISTANT CARDIOLOGY DOCUMENT SCAN Routine 03/02/2023 1:18 PM STUDENT ASSISTANT documented in this encounter Results * Cardiology Document Scan (03/04/2023 1:35 PM STUDENT ASSISTANT) Anatomical Region Laterality Modality Other us Umu Marrufo MD [facility] CARDIAC SERVICES PROCEDU RES Final Result * Cardiology Document Scan (03/03/2023 1:32 PM STUDENT ASSISTANT) Anatomical Region Laterality Modality Other us Umu Marrufo MD CV CARDIAC SERVICES PROCEDU RES Final Result * Cardiology Document Scan (03/02/2023 1:18 PM STUDENT ASSISTANT) Anatomical Region Laterality Modality Other us Siddharth Jennings MD CV CARDIAC SERVICES PROC EDURES Final Result documented in this encounter Visit Diagnoses Not on filedocumented in this encounter Care Teams Investment Professional Relationship Specialty Start Date End Date Phan Garvin MD PCP - General Family Medicine 09/14/22 Phan Garvin MD Family Medicine 09/14/22 documented as of this encounter
--- OUTSIDE RECORDS SUMMARY | 2024-03-15 10:26 | XMS_ITS | Encounter Summary ---
Author Organization [facility] Address [address] [place] [address] Phone Care Team Providers Care Private Detective Name Role Phone Phan Garvin MD Primary Care Provider [phone] Phan Garvin MD Unavailable [phone] Encounter Details Date Type Department Care Team (Late st Contact Info) Description 04/16/2023 Telephone [facility] Obstetrics and Gynecology [address] [facility] 7th Floor [address] [place] [address] Maria Esther Brown, RN Social [...] on file Legal Sex Female 7:11 PM [employer] Gender Identity Not on file Sexual Orientation Not on file 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 No other questionsat this time. [employer] * Telephone Encounter - Maria Esther Brown RN - 04/16/2023 2:14 PM CST ----- Message from Poncho Melgar MD sent at 04/16/2023 1:29 PM [employer] ----- Please notify pt of benign urine cytology report. [employer] documented in this encounter Plan of Treatment Not on file documented as of this encounter Visit Diagnoses Not on filedocumented in this encounter Care Teams Private Detective Relationship Specialty Start Date End Date Phan Garvin MD PCP - General Family Medicine 09/14/22 Phan Garvin MD Family Medicine 09/14/22 documented as of this encounter
--- OUTSIDE RECORDS SUMMARY | 2024-03-15 10:26 | XMS_ITS | Encounter Summary ---
Author Organization [facility] Healthcare Address [address] [place] [address] Care Team Providers Care Bolt Man Name Role Phone Phan Garvin MD Primary Care Provider [phone] Phan Garvin MD Unavailable [phone] Reason for Visit * Auth/Cert (Routine) Specialty Diagnoses / Procedures Referred By Contashley t Referred To Contact Diagnoses Complicated UTI (urinary tract infection) History of pelvic surgery Recurrent UTI Lesion of bladder Complicated UTI (urinary tract infection) [N39.0] History of pelvic surgery [Z98.890] Recurrent UTI [N39.0] Lesion of bladder [N32.9] Procedures [place] CYSTOURETHROSCOPY WITH BIOPSY CYSTOSCOPY BIOPSY BLADDER - CYSTOSCOPY and fulguration Referral ID Status Reason Start Date Expiration Date Visits Re quested Visits Authorized [id number] 1 1 Encounter Details Date Type Department Care Team (Latest Contact Info) Description 04/11/2023 12:44 PM CRYSTAL GAZER - 04/11/2023 9:30 PM CRYSTAL GAZER Hospital Encounter [facility] Operating Room [address] [place] [id number] Poncho Melgar MD [address] [address] [place] [address] Complicated UTI (urinary tract infection); History of pelvic surgery; Recurrent UTI; Lesion of bladder Discharge Disposition: Discharge to home or self [...] on file Legal Sex Female 7:11 PM CRYSTAL GAZER Gender Identity Not on file Sexual Orientation Not on file 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 on file Not on file Not on file documented as of this encounter Last Filed Vital Signs Vital Sign Reading Time Taken Comments Blood Pressure 129/68 04/11/2023 7:25 PM CRYSTAL GAZER Pulse 58 04/11/2023 7:25 PM CRYSTAL GAZER Temperature 36.4 ??C (97.5 ??F) 04/11/2023 3:45 PM CS T Respiratory Rate 16 04/11/2023 4:40 PM CRYSTAL GAZER Oxygen Saturation 98% 04/11/2023 7:25 PM CRYSTAL GAZER Inhaled Oxygen Concentration - - Weight 75.3 kg (166 lb) 03/29/2023 2:10 PM CRYSTAL GAZER Height 160 cm (5' 3 ) 03/29/2023 2:10 PM CRYSTAL GAZER Body Mass Index 29.41 03/29/2023 2:10 PM CRYSTAL GAZER documented in this encounter Discharge Instructions * Discharge Instructions* Tyler Mcelroy MD - 04/11/2023 2:21 PM CRYSTAL GAZER Urogynecology Post-op Instructions and Recovery Please take the following medications as needed: -over the counter ibuprofen and acetaminophen, alternating as we discussed for improved pain control. Do not take more than the maximum dose of these medications in a 24 hr period. -over the counter benefiber OR metamucil OR citrucel daily ACTIVITY Rest as much as you need to for the first two weeks after your surgery. Plan on several rest periods each day. Some people notice a slight depression after surgery. This will resolve on its own, but please call us if it does not. NUTRITION Resume your normal diet after surgery. Eat a well-balanced diet. Drink six to eight glasses of non-caffeinated beverages daily. Water is especially recommended. Resume all of your prior medications once you are home unless otherwise instructed by your doctor. BOWEL MOVEMENTS Constipation is a major risk factor in tearing down of the surgical repair. We want to avoid constipation. Preventing constipation is much easier than treating it once it happens. Do not strain during bowel movements. Eat a high fiber diet which includes fruits, vegetables, and bran. Your doctor may have also recommended a fiber supplement like Benefiber, Metamucil, Citrucel, or Fibercon. Take this as directed once you are home from the hospital. If you start to feel constipated you can take MiraLAX once in the morning and once at night until you have your first bowel movement. Alternatively, you can take a mild laxative such as Milk of Magnesia. In addition, make sure that you are drinking plenty of water, are eating fruits, vegetables, and fiber, and getting enough activity during the day. VOIDING Empty your bladder every two to three hours while you are awake, whether you feel like you need to or not. Sometimes surgery can change your sensation of fullness and you may not feel like you need to void. We want to avoid your bladder becoming too full. If you have any special bladder instructions, you will be given them in the hospital. If you are unsure about these instructions call the office. Call the nurse if you begin to experience any bladder problems. These problems may include urgency,frequency or pain with urination. HYGIENE You may shower and wash your hair. Make sure someone is with you the first time you shower. Do not bathe in the bathtub until you have been given permission, usually after you see your surgeon at your 6-week post-op appointment. Do not douche or use tampons until after your post-op appointment. FEVER If you feel feverish or having shaking chills, take your temperature. If your temperature is 100??F twice in a row, or if your temperature is 101??F or higher one time, call our office. This may mean that you have an infection and we will want to know about that. WILTON CARE Keep the perineal area (between the vagina and the rectum) clean and dry. Clean after every bowel movement and each time you urinate. Rinsing with plain water or sitz bath can be helpful. SEXUAL INTERCOURSE You should not have sexual intercourse for six to eight weeks after surgery. You should not put anything in the vagina for six to eight weeks after surgery. The only exceptionsare if your doctor told you to use vaginal estrogen cream or pills. If you are using vaginal estrogen cream or pills, you can resume using those when you get home. Your doctor will tell you when you can resume sexual intercourse at your post-op visit. PAIN CONTROL If your pain is not relieved by medication or gets worse, call the office. FOLLOW UP APPOINTMENTS Your follow-up appointments should be scheduled by before you have your surgery. These dates are usually written in the letter the office sends you. If you do not have an appointment already scheduled, you will have one set up when our nurses call you to check on you once you are home from the hospital. You will see your doctor at least once by six weeks after your surgery. Often you will also see your doctor about three months after your surgery. Additional appointments can and will be made based upon need. WHEN TO CALL THE OFFICE ONCE YOU ARE HOME FROM THE HOSPITAL One of the doctors from our office is novelty balloon assembler and packer 24 hours a day, seven days a week. If you have an urgent problem after hours do not hesitate to call our office. The answering serive will take your message and relay it to one of the doctors. More routine calls should be placed to our office during regular business hours (8:00 AM to 3:00 PM). You should receive a call back the same day for most calls received by 3:00 PM. You should call our office and talk with one fo the nurses if you notice any of the following: Fever (your temperature is 100??F twice in a row, or if your temperature is 101??F or higher one time) Pain that is not relieved by narcotic pain medication Redness, swelling, discharge or hardness in your incision Heavy vaginal bleeding (which soaks two or more maxi pads in one hour) Vaginal discharge which has an unpleasant odor Shortness of breath - any time Leg pain that is unusual for you *Please take antibiotics for 2 weeks. We are also going to schedule you for a pelvic ultrasound to ensure this is normal. TAL GAZER TAL GAZER documented in this encounter Medications at Time [...] rosuvastatin (CRESTOR) 10 mg tablet 09/24/2019 vit C,Y-Vx-vfbtp-lute in-zeaxan (PreserVision AREDS-2) 250-90-40-1 mg capsuleIndication s:eye vitamin Take 1 capsule by mouth 2 (two) times a day zinc 50 mg tabletIndications :supplement Take 50 mg by mouth every morning cephalexin (KEFLEX) 500 mg capsule Take 1 capsule (500 mg total) by mouth 4 (four) times a day for 14 days 56 capsule 04/11/2023 04/25/2023 ciprofloxacin (CIPRO) 500 mg tablet Take 1 tablet (500 mg total) by mouth 2 (two) times a day for 3 days 6 tablet 04/09/2023 04/12/2023 acidophilus-pecti n, citrus 100 million cell-10 mg capsuleIndication s:gut health Take 1 capsule by mouth every morning Not taking 07/20/2023 aspirin 81 mg enteric coated tabletIndications :prevention of thrombosis Take 1 tablet (81 mg total) by mouth nightly 08/23/2023 cefdinir (OMNICEF) 300 mg capsuleIndication s:Urinary Tract/Genitourina ry Infection Take 1 capsule (300 mg total) by mouth 2 (two) times a day 07/23/2023 diphenhydrAMINE (Sleep Aid, diphenhydrAMINE,) 25 mg capsuleIndication s:sleep Take 0.5 tablet/capsul e (12.5 mg total) by mouth nightly as needed for itching or sleep 07/26/2023 phenazopyridine (PYRIDIUM) 100 mg tabletIndications :Acute cystitis [...] mouth 07/20/2023 documented as of this encounter Ordered Prescriptions Prescription Sig Dispense Quantity Refills Last Filled Start Date End Date cephalexin (KEFLEX) 500 mg capsule Take 1 capsule (500 mg total) by mouth 4 (four) times a day for 14 days 56 capsule 04/11/2023 4 documented in this encounter Discharge Disposition Disposition Code Departure Means Destination Comment s Discharge to home or self care documented in this encounter H&P Notes * Poncho Melgar MD - 04/11/2023 2:18 PM CST I have reviewed the H&P, examined the patient, and endorse the findings as written. Plan of Care : Based on the above findings, I consider Maria A Jean to be an acceptable risk for : Procedure(s): CYSTOSCOPY BIOPSY BLADDER - CYSTOSCOPY and fulguration TAL GAZER Source Note - Poncho Melgar MD - 04/11/2023 2:08 PM CRYSTAL GAZER Chief Complaint: Recurrent UTI HPI: Maria A Jean is a 82 y.o. HEEL BU[employer] female here for cystoscopy and possible bladder biopsy dueto the appearance of bladder lesions/limited office cystoscopy and recurrent UTIs. 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 She was previously scheduled but in pre-op she had RVR with her afib and the case was postponed for cardiac optimization/clearance. She is on ASA and apixiban. She has had prior prolapse surgery by Dr Mueller. Historical She has had a vaginal hysterectomy without bilateral oophorectomy in 1950s. In 12/21/16 she had a sacrospinous ligament fixation, anterior/posterior repair, colpoperineorrhaphy by Dr Mueller. She thinks her bladder (UTI) symptoms started after this but her daughter says she had UTIs prior. She was referred to Urology and later Infectious disease, finally recommended to be seen by UroGyn as, perpatient, the specialists could no longer help. She denies prolapse symptoms following her surgery in 2017.She has not noticed a vaginal bulge thatshe can see and feel. She does report having pelvic pressure symptoms with urination. She reports urinary symptoms and recurrent UTIs for the past 6 years. She reports occasional leakage of urine with coughing, laughing, and sneezing. She denies leakage of urine with an urge, but doesoften having leaking when standing after sitting for some time. Symptoms worse with UTIs. She does wear a pad for protection. She does have symptoms of urinary urgency and frequency. She does not feel that she empties her bladder completely, despite position changes when sitting on toilet ( takes forever ). She does report nocturia with prior filling of 6-7 adult diapers, now down 2/night. She has not tried overactive bladder medications to help with her symptoms. She states she drinks mainly w ater. 6 weeks longest time without UTI, have been getting more frequent, more severe, most recent episode with debilitating pain with urination. Sometimes with asymptomatic bacteriuria. Reports symptoms even with with negative UCx. She was previously seen by Urology at [facility] (Dr. Butt), and remembers having UDS performed, but does not remember the results. She denies any prior cystoscopy. Reports prior h/o mesh placement, but unsure of where it was placed (?MUS). Recent UTIs 10/15/22 UCx with Pseudomonas 12/25/22 UCx with enterococcus - Finished Levoquin course on 01/06, prescribed by her PCP, sensitivities + for macrobid, ampicillin, Vanc She denies bowel symptoms including diarrhea and constipation. She denies fecal incontinence of gasand stool. She has not done pelvic floor PT in the past. Tried home pelvic floor exercises, not used PFPT. Shehad Cologuard 2 years ago and it was normal, due in 2023 She reports a history of back pain. Reports history of 4-5th vertebrae pinched nerve, sees PT. She denies a history of back disease. She reports a remote history of back surgery in the 50s, unable toremember the procedure itself. She denies a history of a motor vehicle accident, fall, or traumaticinjury to pelvis/lower extremity. She denies a history of scoliosis. She denies menopausal symptoms. She denies vaginal dryness. She has been using VET x2/wk, and coconut oil x1/wk, with daily use of cranberry tablets and D- mannose powder. She is not sexually active. PMH notable for interstitial cystitis with hematuria (s/p bladder surgery, midurethral sling), hypothyroidism, C diff colitis. Medical History Past Medical History: Diagnosis Date Atrial fibrillation ([facility]) ([facility]) 03/01/2022 Hypercholesteremia Osteoporosis Recurrent UTI Surgical History Past Surgical History: Procedure Laterality Date BACK SURGERY BLADDER SURGERY Prescriptions Prior to Admission (Not in a hospital admission) Current Medications Current Outpatient Medications Medication Sig Dispense Refill acidophilus-pectin, citrus 100 million cell-10 mg capsule Take by mouth ascorbic acid (VITAMIN C) 500 mg tablet,chewable aspirin 81 mg enteric coated tablet Take 1 tablet (81 mg total) by mouth daily cholecalciferol (VITAMIN D-3) 2000 unit capsule 1 capsule (2,000 Units total) cranberry 400 mg capsule Take by mouth estradioL (ESTRACE) 0.01 % (0.1 mg/gram) vaginal cream USE FINGERTIP AMOUNT IN VAGINA 2 NIGHTS PER WEEK BEFORE BED imiquimod (ALDARA) 5 % cream levothyroxine (SYNTHROID) 25 mcg tablet TAKE 1 TABLET BY MOUTH DAILY AT 6.30 AM metoprolol XL (TOPROL-XL) 25 mg extended release tablet Take 1 tablet (25 mg total) by mouth every morning phenazopyridine (PYRIDIUM) 100 mg tablet Take 1 tablet (100 mg total) by mouth 3 (three) times a day as needed (urinary pain) for up to 6 doses Take After meals 6 tablet 0 vit C,A-Pi-tpfyg-lutein-zeaxan (PreserVision AREDS-2) 250-90-40-1 mg capsule Take by mouth zinc 50 mg tablet Take by mouth ampicillin (PRINCIPEN) 500 mg capsule Take 1 capsule (500 mg total) by mouth every 6 (six) hours for 7 days 28 capsule 0 fosfomycin (MONUROL) 3 gram packet TAKE ONE PACKET WEEKLY ON SUNDAY (MIXED DIRECTED) (Patient not taking: Reported on 03/21/2022) guaiFENesin-codeine (GUAITUSS AC) liquid 100-10 mg/5 mL TAKE 10 ML BY MOUTH EVERY 4 TO 6 HOURS NEEDED FOR COUGH (Patient not taking: Reported on 03/21/2022) Premarin vaginal cream (Patient not taking: Reported on 01/08/2023) rosuvastatin (CRESTOR) 10 mg tablet (Patient not taking: Reported on 01/08/2023) sulfamethoxazole-trimethoprim (BACTRIM DS) 800-160 mg per tablet Take 1 tablet by mouth 2 (two) times a day (Patient not taking: Reported on 01/08/2023) turmeric root extract 500 mg capsule Take by mouth (Patient not taking: Reported on 01/08/2023) vancomycin (VANCOCIN) 125 mg capsule Take 1 capsule (125 mg total) by mouth 4 (four) times a day (Patient not taking: Reported on 01/08/2023) No current facility-administered medications for this visit. Allergies Allergen Reactions Prednisone Rash Social History Social History Tobacco Use Smoking status: Never Smokeless tobacco: None Substance and Sexual Activity Drug use: Never Sexual activity: None Alcohol Use: Not on file Review of Systems Reviewed and updated in HPI as indicated. OBJECTIVE: Vitals: Most Recent : Vitals Ht 160 cm (5' 3 ) Wt 75.3 kg (166 lb) LMP (LMP Unknown) BMI 29.41 kg/m?? Physical Exam: CONSTITUTIONAL: Well developed. Well nourished. HEENT: NCAT. RESPIRATORY: Normal respiratory effort. CARDIOVASCULAR: Normal peripheral vascular exam. ABDOMINAL: Abdomen, soft and nontender. No hernias. Tenderness to palpation medial to ASIS: No. Yes moderate suprapubic tenderness to palpation. BACK: No SI joint tenderness. LYMPHATIC: Inguinal nodes palpated. SKIN: Normal inspection. MUSCULOSKELETAL: No deformities/weakness. Moves all extremities well. NEUROLOGIC: Normal reflexes. PSYCHIATRIC: Oriented X 3. GENITOURINARY: External Genitalia: Normal appearance, no lesions. Urethral Meatus: Normal size and location. Urethra: No masses or tenderness. Bladder: No masses or tenderness. Vagina: No abnormal discharge. Cervix: Surgically absent No prolapse. Uterus: surgically absent Adnexa/Parametrial: No palpable masses, no tenderness. Perineal Sensation: normal. Anal [place]: present. Recent Results ASSESSMENT: Maria A Jean is a 82 y.o. female here for cystoscopy and possible bladder bxs due to inadequate office cystoscopy and possible bladder lesions. She received cards clearance. PLAN: We discussed various non-surgical and surgical options, and again agreed to proceed. We discussed surgical risks, which include, but are not limited to, bleeding, infection, injury to nearby organs including bowel, bladder, ureters, urethra, nerves and blood vessels, as well as the possibility of persistent or recurrent symptoms which may require future surgery. We further discussed the risk of postoperative dyspareunia or pelvic pain, and the potential for postoperative voiding dysfunction. Specifically, we discussed the risk of persistent or recurrent postoperative incontinence, or alternately postoperative urinary retention, either of which may require future surgical correction. The patient was amenable to these risks, and wishes to proceed. Consent was signed. She is to meet with [facility] for anesthesia counseling and consent. TAL GAZER * Poncho Melgar MD - 04/11/2023 2:08 PM CST Chief Complaint: Recurrent UTI HPI: Maria A Jean is a 82 y.o. HEEL [employer] female here for cystoscopy and possible bladder biopsy dueto the appearance of bladder lesions/limited office cystoscopy and recurrent UTIs. 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 She was previously scheduled but in pre-op she had RVR with her afib and the case was postponed for cardiac optimization/clearance. She is on ASA and apixiban. She has had prior prolapse surgery by Dr Mueller. Historical She has had a vaginal hysterectomy without bilateral oophorectomy in 1950s. In 12/21/16 she had a sacrospinous ligament fixation, anterior/posterior repair, colpoperineorrhaphy by Dr Mueller. She thinks her bladder (UTI) symptoms started after this but her daughter says she had UTIs prior. She was referred to Urology and later Infectious disease, finally recommended to be seen by UroGyn as, perpatient, the specialists could no longer help. She denies prolapse symptoms following her surgery in 2016.She has not noticed a vaginal bulge thatshe can see and feel. She does report having pelvic pressure symptoms with urination. She reports urinary symptoms and recurrent UTIs for the past 6 years. She reports occasional leakage of urine with coughing, laughing, and sneezing. She denies leakage of urine with an urge, but doesoften having leaking when standing after sitting for some time. Symptoms worse with UTIs. She does wear a pad for protection. She does have symptoms of urinary urgency and frequency. She does not feel that she empties her bladder completely, despite position changes when sitting on toilet ( takes forever ). She does report nocturia with prior filling of 6-7 adult diapers, now down 2/night. She has not tried overactive bladder medications to help with her symptoms. She states she drinks mainly w ater. 6 weeks longest time without UTI, have been getting more frequent, more severe, most recent episode with debilitating pain with urination. Sometimes with asymptomatic bacteriuria. Reports symptoms even with with negative UCx. She was previously seen by Urology at [facility] (Dr. Butt), and remembers having UDS performed, but does not remember the results. She denies any prior cystoscopy. Reports prior h/o mesh placement, but unsure of where it was placed (?MUS). Recent UTIs 10/15/22 UCx with Pseudomonas 12/25/22 UCx with enterococcus - Finished Levoquin course on 01/06, prescribed by her PCP, sensitivities + for macrobid, ampicillin, Vanc She denies bowel symptoms including diarrhea and constipation. She denies fecal incontinence of gasand stool. She has not done pelvic floor PT in the past. Tried home pelvic floor exercises, not used PFPT. Shehad Cologuard 2 years ago and it was normal, due in 2023 She reports a history of back pain. Reports history of 4-5th vertebrae pinched nerve, sees PT. She denies a history of back disease. She reports a remote history of back surgery in the 50s, unable toremember the procedure itself. She denies a history of a motor vehicle accident, fall, or traumaticinjury to pelvis/lower extremity. She denies a history of scoliosis. She denies menopausal symptoms. She denies vaginal dryness. She has been using VET x2/wk, and coconut oil x1/wk, with daily use of cranberry tablets and D- mannose powder. She is not sexually active. PMH notable for interstitial cystitis with hematuria (s/p bladder surgery, midurethral sling), hypothyroidism, C diff colitis. Medical History Past Medical History: Diagnosis Date Atrial fibrillation (CMS/HCC) ([facility]) 03/01/2022 Hypercholesteremia Osteoporosis Recurrent UTI Surgical History Past Surgical History: Procedure Laterality Date BACK SURGERY BLADDER SURGERY Prescriptions Prior to Admission (Not in a hospital admission) Current Medications Current Outpatient Medications Medication Sig Dispense Refill acidophilus-pectin, citrus 100 million cell-10 mg capsule Take by mouth ascorbic acid (VITAMIN C) 500 mg tablet,chewable aspirin 81 mg enteric coated tablet Take 1 tablet (81 mg total) by mouth daily cholecalciferol (VITAMIN D-3) 2000 unit capsule 1 capsule (2,000 Units total) cranberry 400 mg capsule Take by mouth estradioL (ESTRACE) 0.01 % (0.1 mg/gram) vaginal cream USE FINGERTIP AMOUNT IN VAGINA 2 NIGHTS PER WEEK BEFORE BED imiquimod (ALDARA) 5 % cream levothyroxine (SYNTHROID) 25 mcg tablet TAKE 1 TABLET BY MOUTH DAILY AT 6.30 AM metoprolol XL (TOPROL-XL) 25 mg extended release tablet Take 1 tablet (25 mg total) by mouth every morning phenazopyridine (PYRIDIUM) 100 mg tablet Take 1 tablet (100 mg total) by mouth 3 (three) times a day as needed (urinary pain) for up to 6 doses Take After meals 6 tablet 0 vit C,X-Aw-vjmwv-lutein-zeaxan (PreserVision AREDS-2) 250-90-40-1 mg capsule Take by mouth zinc 50 mg tablet Take by mouth ampicillin (PRINCIPEN) 500 mg capsule Take 1 capsule (500 mg total) by mouth every 6 (six) hours for 7 days 28 capsule 0 fosfomycin (MONUROL) 3 gram packet TAKE ONE PACKET WEEKLY ON SUNDAY (MIXED DIRECTED) (Patient not taking: Reported on 03/21/2022) guaiFENesin-codeine (GUAITUSS AC) liquid 100-10 mg/5 mL TAKE 10 ML BY MOUTH EVERY 4 TO 6 HOURS NEEDED FOR COUGH (Patient not taking: Reported on 03/21/2022) Premarin vaginal cream (Patient not taking: Reported on 01/08/2023) rosuvastatin (CRESTOR) 10 mg tablet (Patient not taking: Reported on 01/08/2023) sulfamethoxazole-trimethoprim (BACTRIM DS) 800-160 mg per tablet Take 1 tablet by mouth 2 (two) times a day (Patient not taking: Reported on 01/08/2023) turmeric root extract 500 mg capsule Take by mouth (Patient not taking: Reported on 01/08/2023) vancomycin (VANCOCIN) 125 mg capsule Take 1 capsule (125 mg total) by mouth 4 (four) times a day (Patient not taking: Reported on 01/08/2023) No current facility-administered medications for this visit. Allergies Allergen Reactions Prednisone Rash Social History Social History Tobacco Use Smoking status: Never Smokeless tobacco: None Substance and Sexual Activity Drug use: Never Sexual activity: None Alcohol Use: Not on file Review of Systems Reviewed and updated in HPI as indicated. OBJECTIVE: Vitals: Most Recent : Vitals Ht 160 cm (5' 3 ) Wt 75.3 kg (166 lb) LMP (LMP Unknown) BMI 29.41 kg/m?? Physical Exam: CONSTITUTIONAL: Well developed. Well nourished. HEENT: NCAT. RESPIRATORY: Normal respiratory effort. CARDIOVASCULAR: Normal peripheral vascular exam. ABDOMINAL: Abdomen, soft and nontender. No hernias. Tenderness to palpation medial to ASIS: No. Yes moderate suprapubic tenderness to palpation. BACK: No SI joint tenderness. LYMPHATIC: Inguinal nodes palpated. SKIN: Normal inspection. MUSCULOSKELETAL: No deformities/weakness. Moves all extremities well. NEUROLOGIC: Normal reflexes. PSYCHIATRIC: Oriented X 3. GENITOURINARY: External Genitalia: Normal appearance, no lesions. Urethral Meatus: Normal size and location. Urethra: No masses or tenderness. Bladder: No masses or tenderness. Vagina: No abnormal discharge. Cervix: Surgically absent No prolapse. Uterus: surgically absent Adnexa/Parametrial: No palpable masses, no tenderness. Perineal Sensation: normal. Anal [place]: present. Recent Results ASSESSMENT: Maria A Jean is a 82 y.o. female here for cystoscopy and possible bladder bxs due to inadequate office cystoscopy and possible bladder lesions. She received cards clearance. PLAN: We discussed various non-surgical and surgical options, and again agreed to proceed. We discussed surgical risks, which include, but are not limited to, bleeding, infection, injury to nearby organs including bowel, bladder, ureters, urethra, nerves and blood vessels, as well as the possibility of persistent or recurrent symptoms which may require future surgery. We further discussed the risk of postoperative dyspareunia or pelvic pain, and the potential for postoperative voiding dysfunction. Specifically, we discussed the risk of persistent or recurrent postoperative incontinence, or alternately postoperative urinary retention, either of which may require future surgical correction. The patient was amenable to these risks, and wishes to proceed. Consent was signed. She is to meet with [facility] for anesthesia counseling and consent. TAL GAZER documented in this encounter Miscellaneous Notes * Op Note - Poncho Melgar MD - 04/11/2023 3:10 PM CST SURGEON Poncho Melgar MD. VAMP STRAP IRONER Tyler Mcelroy MD. PREOPERATIVE DIAGNOSIS Refractory recurrent urinary tract infections. Prior office cystoscopy due to poor visualization due to desquamation. Erythematous patches, can not rule out malignancy/dysplasia Neurogenic bladder POSTOPERATIVE DIAGNOSIS Same PROCEDURE Operative cystoscopy with biopsy x 5 sites and fulguration of biopsy sites Manual bladder irrigation with the Ellik senior software project manager ANESTHESIA LMA genearl . IV FLUID 700 mL crystalloid. EBL Minimal. URINE OUTPUT The patient voided prior to procedure and initial catheterization for approximately 100 mL urine. COMPLICATIONS None. DRAINS None. PACKS None. COUNTS REPORTED Correct x2. DISPOSITION Stable to recovery. FINDINGS Initial catheterization revealed approximately 100 mLs of cloudy urine; specimen sent for culture. Initial findings of cystoscopy revealed desquamation. After irrigation, five diverticulum were identified with two large sized and three small sized; the largest was posterior and immediately cephaladof the trigone. The trigone was in appropriate location and the ureteral orifices were identified and bilateral jets were visualized throughout the case. There was erythema posteriorly that was slightly raised and the patch measured approximately 7x5cm in the cephalad direction. The sidewalls were normal in appearance and the anterior wall appeared thickened. Inside the diverticula, no lesions were identified. INDICATIONS Maria A Jean is a 82 y.o. y.o. -year-old postmenopausal female who was referred to our practice for complicated recurrent/refractory urinary tract infections. An attempted office cystoscopy revealed poor visualization due to severe desquamation and concern for dysplasia/malignancy. CIS could not be ruled out. She has been on prolonged antibiotics. We discussed both biopsy and fulguration ofthese lesions and she elected to proceed with the cystoscopy, biopsy, and fulguration of these lesions. PROCEDURE Risks, benefits, alternatives to procedure were discussed with the patient and written consent was obtained. The patient was taken to the operating room where she transferred to the operating table on her own volition. Surgical time-out was performed revealing appropriate patient, procedure, appropriate safety precautions, administration of antibiotics, and SCDs for DVT prophylaxis. Anesthesia was administered. The patient was then positioned in low lithotomy using Yellofin stirrups, position of the stirrups was checked, found to be appropriate. A 2nd time-out was performed. Examination revealed the above findings. The lower abdomen, perineum and vagina were prepped with povidone iodine. The patient was draped in standard fashion. The patient was catheterized and again approximately 50 mL of cloudy urine was obtained and sent for culture. A cystoscopy with a 30-degree cystoscope revealed the above-mentioned findings, specifically, with the ureteral orifices being noted bilaterally, somewhat displaced laterally. The bladder was irrigated several times including with an [place] bladder senior software project manager. The bladder was thoroughly surveyed with attempts to see the base of each of the numerous diverticulum; five were found. There were no obvious lesions found within the diverticula. An approximately 7x5cm patch of erythematous, slightly raised and thickened tissue was noted in the midline above the Trigone. Four biopsies were performed in this area was there was variation in the lesion. One biopsy was taken on the anterior wallthat appeared thickened but not erythematous. The Bugbee was then used to fulgurate and good hemostasis was noted. Final survey of the bladder revealed no remaining distinct lesions that needed to bebiopsied and good hemostasis. Counts were correct x2. The patient was taken to recovery room in stable condition and tolerated the procedure well. ATTESTATION This is Poncho Melgar MD, attesting that I was present and performed the entire procedure. TAL GAZER * Pre-Procedure Instructions - [place] Opalpadmini EdwardMATY zamarripa - 04/05/2023 8:22 AM CST [facility] Location: [facility] The night before your surgery: * Do not eat anything after midnight the night before your procedure. and * Do not smoke or use tobacco products after midnight the night before surgery. It is best to stop smoking now to improve your health. The morning of your surgery: * You may have clear liquids on your surgery day. You must stop drinking two hours before you arrive to the surgery facility. Acceptable clear liquids include water, clear sports drinks, black coffee, or clear soda. DO NOT drink any milk, creamer, or alcohol. * Your surgeon's office may have provided additional instructions or restrictions. Please follow those instructions. * You may brush your teeth and rinse your mouth out. * Do not glue your dentures. * Do not wear jewelry, body piercings, makeup, hairpins, false eyelashes or contact lenses to the hospital. * Leave any valuables at home or with your family. * If you have an implantable device with a remote, bring the remote with you on the day of surgery. Outpatient Surgery: * You must have a responsible adult drive you home and stay with you for 24 hours after your surgery * You cannot be alone at home or in a hotel * Please call your surgeon's office if you do not have someone to drive you home and/or stay with you after surgery * Please bring any items you may need to spend the night in the hospital. Sometimes patients need to be cared for in the hospital overnight. Instructions For Your Medications: Pre-Surgery Instructions: Medication Instructions acidophilus-pectin, citrus 100 million cell-10 mg capsule Don't take on day of surgery ascorbic acid (VITAMIN C) 500 mg tablet,chewable Don't take on day of surgery aspirin 81 mg enteric coated tablet Per surgeons instructions cefdinir (OMNICEF) 300 mg capsule Patient not taking cholecalciferol (VITAMIN D-3) 2000 unit capsule Don't take on day of surgery cranberry 400 mg capsule Don't take on day of surgery diphenhydrAMINE (Sleep Aid, diphenhydrAMINE,) 25 mg capsule Don't take on day of surgery estradioL (ESTRACE) 0.01 % (0.1 mg/gram) vaginal cream Don't take on day of surgery levothyroxine (SYNTHROID) 25 mcg tablet Take morning of surgery phenazopyridine (PYRIDIUM) 100 mg tablet Don't take on day of surgery vit C,Q-Jh-uxiyg-lutein-zeaxan (PreserVision AREDS-2) 250-90-40-1 mg capsule Stop taking 1 week prior to surgery zinc 50 mg tablet Don't take on day of surgery rosuvastatin (CRESTOR) 10 mg tablet Patient not taking sotaloL (BETAPACE) 80 mg tablet Take morning of surgery turmeric root extract 500 mg capsule Patient not taking Your surgeon will tell you IF YOU SHOULD STOP the following medications and WHEN TO STOP taking them. Do not stop taking them on your own without being told to do so: aspirin General Instructions For Medications: * Stop all of these medications 5 days prior to your surgery: excedrin, motrin, advil, ibuprofen, aleve, naproxen, meloxicam, celebrex, celecoxib. For medications that you are instructed to take on the morning of surgery, take the medications with a few sips of water. Stop all of these medications 7-14 days prior to your surgery: Vitamin E, Herbal medicines, Diet Pills If you take aspirin, do not stop taking it unless you were instructed to do so. If you have pain, you may take tylenol (acetaminophen). Do not take more than 6 tablets or 3000 mg (3 g) within a 24 period. Call your surgeon and the CPAP clinic if any of the following happens before surgery: Any changes in your health You have a fever You have any signs of an infection (chest, urinary tract or tooth) You have been to the Emergency Room or were in the hospital You have started taking any new medications You have questions about a bowel prep or special diet before surgery You have symptoms of COVID-19 such as a new or worsening cough, shortness of breath, fever, body aches, loss of taste or smell, diarrhea or vomiting, or sore throat. You have a household contact with COVID-19. You test positive for COVID-19. TAL GAZER * Pre-Procedure Instructions - Lisha Dennis, JOHN - 03/29/2023 2:16 PM CST [facility] ([facility]) PRE-SURGICAL NURSING INSTRUCTIONS Telephone Assessment General Information Discussed with Patient: Surgery location provided to patient. Arrival time and surgical time will be provided to the patient by their surgeon. You should wear clothing that is clean, loose, comfortable and easy to get in and out of on the dayof surgery. You should remove nail coverings, artificial nails and nail turkmen prior to the day of surgery. You should leave your valuables and any jewelry at home. No metal or piercings are allowed in the operating room. You should bring your insurance card, a photo ID (example: Parts Advisor's License) and a method of payment for any insurance copay, deductible or copay for discharge medications. You should bring a complete, up-to-date, list of all your medications on the day of surgery, including any over the counter medications or supplements you may take. Please note on your medication list, the last date & time you took each medication. The healthcare team, on the day of surgery, will ask for this information. You should bring your Advanced Directive and/or Living Will with you on the day of surgery if you have not verified a copy is already in your Epic Chart. If you are having surgery at [facility], please arrive on the day of surgery with the name and phone number of your local 24 hour pharmacy. Due to evening discharges, your routine pharmacy may be closed. In order to obtain your prescriptions that evening, your surgeon may need to send prescriptions to this pharmacy or have you take prescriptions to this pharmacy when you are discharged. Without this information, you may not be able to obtain your prescriptions that evening. A Guide for Patients Having Surgery: Your Pathway to Excellent Care OUR GOAL IS TO PROVIDE YOU WITH EXCELLENT CARE Use this guide to learn about what you can do before, during and after surgery to help your recovery. You are the most important person on your health care team. By becoming informed and involved, you can contribute to the success of your surgery. If your surgeon's directions are different than those in this guide, talk with your nurse or surgeon to confirm the information. It is important that you understand how to take care of yourself at home after surgery. Be sure to bring this guide with you on the day of surgery and take it home with you after surgery. Write down questions for your nurse or surgeon on the last page of this booklet. Important pages to be reviewed BEFORE surgery: Page 1: QR codes for Surgery Center maps Page 3: Types of Anesthesia Page 5: Tips for the day & night before surgery Page 6: When to stop eating BEFORE surgery and examples of clear liquids Page 7-10: Preventing Infection: Chlorhexidine Gluconate (CHG) Bathing Instructions You may access A Guide for Patients Having Surgery: Your Pathway to Excellent Care by the followinglink: [email or web address] How To Prepare Your Skin For Surgery Below is the Pre-Surgical Bathing Protocol you should follow for your surgery. If your surgeon provides you different bathing instructions, please follow your surgeon's orders. Normal Bathing: Bathe with regular soap the night before and/or day of surgery. Normal Bathing Protocol Bathe with your normal soap the night before and/or the morning of surgery. Wear clean clothes or pajamas to sleep in. After showering DO NOT put on deodorant, hair products, conditioners, lotions, creams, powders, Vaseline or any non-essential products. Remove nail coverings, artificial nails and nail turkmen. Place clean linens on your bed the night before surgery. Shaving: You may shave your face, legs and underarms during your evening shower. Avoid shaving on the day of surgery. Travel/Exposure Screening: Travel Screening Have you traveled outside the [place] in the last 6 months?: No Exposure Screening Have you been exposed to anyone who is sick in the last 30 days?: No Have you been exposed to or tested positive for COVID-19 within the last 10 days?: No Infectious Disease Screening Are you having any of the following:: None As of 01/03/2022 any COVID TESTING required for surgery will be set up by your surgeon's office. Please reach out to your surgeon's office if you develop any COVID symptoms, test positive for COVID or are exposed to a COVID positive person. If you have questions, please call the CPAP Staff at [phone], Sunday-Sunday 8am-4:30pm. All patients should read the below section: COVID 19 Updates & Visitor Policy: Please access [email or web address] for the most updated information. Information on [facility]: Please view [email or web address] (Patient & Visitor Information) for additional details regarding Advanced Directive forms, AWARE, directions, parking information, lodging, Internet access, dining and more. For MyChart information, to activate account or password recovery, please go to [email or web address] or call [phone] (toll-free: [phone]), Sun- Sunday 8am-5pm. Information for Suicide Prevention: National Suicide Prevention Lifeline (7-961- 201-TALK (9572) orcall or text 403. Chat resources: GetApp.org. Surgery Times: For patients having surgery @ [facility] or [facility] ([facility]), if your surgeon's office has not notified you of your surgery time by NOON THE BUSINESS DAY BEFORE your surgery, please call [phone] and ask for your surgeon's office Dr Melgar. The [facility] ([facility]) does not provide arrival times for the day of surgery or provide the duration of surgery. This information is provided by your surgeon'soffice or by the center where you are having surgery. We appreciate your understanding. TAL GAZER * Perioperative Nursing Note - Lisha Dennis RN - 03/29/2023 2:15 PM CST [facility] Planning Perioperative Nursing Note Telephone Preoperative Evaluation ([facility]) - TELEPHONE ONLY, NO PHYSICAL EXAM Date: 03/29/23 This assessment was completed with the patient. Vitals: 03/29/23 1410 Weight: 75.3 kg (166 lb) Height: 160 cm (5' 3 ) CHEST CIRCUMFERENCE: NA Social History Tobacco Use Smoking Status Never Smokeless Tobacco Never Substance and Sexual Activity Drug Use Never Alcohol Use Q1: How often do you have a drink containing alcohol?: Never Q2: How many drinks containing alcohol do you have on a typical day when you are drinking?: Patientdoes not drink Q3: How often do you have six or more drinks on one occasion?: Never Outpatient Medications Marked as Taking for the 04/11/23 encounter (Hospital Encounter) Medication Sig Dispense Refill acidophilus-pectin, citrus 100 million cell-10 mg capsule Take 1 capsule by mouth every morning ascorbic acid (VITAMIN C) 500 mg tablet,chewable Take 1 tablet/chew tab (500 mg total) by mouth every morning aspirin 81 mg enteric coated tablet Take 1 tablet (81 mg total) by mouth nightly cefdinir (OMNICEF) 300 mg capsule Take 1 capsule (300 mg total) by mouth 2 (two) times a day cholecalciferol (VITAMIN D-3) 2000 unit capsule Take 1 capsule (2,000 Units total) by mouth every morning cranberry 400 mg capsule Take 800 mg by mouth every morning diphenhydrAMINE (Sleep Aid, diphenhydrAMINE,) 25 mg capsule Take 0.5 tablet/capsule (12.5 mg total)by mouth nightly as needed for itching or sleep estradioL (ESTRACE) 0.01 % (0.1 mg/gram) vaginal cream Insert 2 g into the vagina 2 (two) times a week Mon and Fri levothyroxine (SYNTHROID) 25 mcg tablet Take 1 tablet (25 mcg total) by mouth every morning phenazopyridine (PYRIDIUM) 100 mg tablet Take 1 tablet (100 mg total) by mouth 3 (three) times a day as needed (urinary pain) for up to 6 doses Take After meals (Patient taking differently: Take 2 tablets (200 mg total) by mouth 3 (three) times a day as needed for urinary pain (urinary pain) Take After meals) 6 tablet 0 sotaloL (BETAPACE) 80 mg tablet Take 1 tablet (80 mg total) by mouth 2 (two) times a day vit C,A-Jm-myspt-lutein-zeaxan (PreserVision AREDS-2) 250-90-40-1 mg capsule Take 1 capsule by mouth 2 (two) times a day zinc 50 mg tablet Take 50 mg by mouth every morning Implants No active implants to display in this view. SKIN Piercings Remaining: Yes Wound (LDAs) Type of Wound (LDA): (denies) SCREENINGS Artie index score: 95 PATIENT CARE PLANNING Advance Directives (For Healthcare) Have you reviewed your Advance Directive and is it valid for this stay?: Not applicable Advance Directive: Patient does not have advance directive Communication/Loss Prevention Consultant Needs Communication Needs: Glasses, Hearing aide(s) Assistive Devices/DME: Eyeglasses Hearing - Right Ear: Hearing aid Hearing - Left Ear: Hearing aid Discharge Planning Type of Residence: Private residence Living Arrangements: Alone Support Systems: Children, Family members, Friends/neighbors Patient expects to be discharged to:: Private residence GUNNERY/ORDNANCE OFFICER NO TAL GAZER documented in this encounter Plan of Treatment Not on file documented as of this encounter Procedures Procedure Name Priority Date/Time Associated Diagnosis Comments CYTOLOGY Routine 04/11/2023 3:45 PM CRYSTAL GAZER Complicated UTI (urinary tract infection) History of pelvic surgery Recurrent UTI Lesion of bladder SURGICAL PATHOLOGY Routine 04/11/2023 3: 19 PM CRYSTAL GAZER Complicated UTI (urinary tract infection) History of pelvic surgery Recurrent UTI Lesion of bladder URINE CULTURE Routine 04/11/2023 3:02 PM CRYSTAL GAZER BIOPSY BLADDER - CYSTOSCOPY 04/11/2023 2:36 PM CRYSTAL GAZER Complicated UTI (urinary tract infection) History of pelvic surgery Recurrent UTI Lesion of bladder Case Notes 03/07@1300- Patient in AFIB ??will reschedule later per Gissell via case msg.EF CYSTOSCOPY 04/11/2023 2:36 PM CRYSTAL GAZER Complicated UTI (urinary tract infection) History of pelvic surgery Recurrent UTI Lesion of bladder Case Notes 03/07@1300- Patient in AFIB ??will reschedule later per Gissell via case msg.EF DIFFERENTIAL AUTO STAT 04/11/2023 2:0 0 PM CRYSTAL GAZER CBC WITH AUTO DIFFERENTIAL STAT 04/11/2023 2:00 PM CRYSTAL GAZER TYPE AND SCREEN STAT 04/11/2023 2:00 PM CRYSTAL GAZER documented in this encounter Results * Cytology (04/11/2023 3:45 PM CRYSTAL GAZER) Fluid (Urine, catherized (Cytology)) 04/11/2023 3:45 PM CRYSTAL GAZER Narrative PATHOLOGY [facility] - 04/13/2023 3:32 PM CRYSTAL GAZER EPIC results best viewed via link to PDF [facility] [place] [address] Note to Patients: This report may contain a detailed description of human tissue sent by a health care provider to the laboratory for pathologic evaluation. The content of this report is essential for diagnosis and may provide important critical findings. This information may be unfamiliar to patients to review without a medical professional present. It is advised that the patient review this report in the presence of a health care provider who can answer questions and explain the details. CYTOPATHOLOGY REPORT FINAL Patient Name: ?? MARIA A JEAN Gender: ??F : ??[id number] (Age: 82) Address: ??[address] [place] [address] ??[id number] Hospital #: ??[id number] Taken:04/11/2023 Received:04/11/2023 Reported: 04/13/2023 Patient Type: [facility] SDS ?? Service: Surgery Location: [facility] OR POD1 Physician(s): ??Poncho Melgar M.D. Phan Paula Youngblood M.D. Tyler Mcelroy, FINAL DIAGNOSIS A. ??Urine, bladder, voided: ? - Negative for high-grade urothelial carcinoma js/04/13/2023 09:42 By this signature, I attest that the above diagnosis is based upon my personal examination of the slides(and/or other material indicated in the diagnosis). Anam Ruiz, DO Report Electronically Reviewed and Signed Out By ??Anam Ruiz DO 04/13/2023 15:32:54 Elroy Hughes MS, CT(ASCP)PA Gross Description A. ??Bladder urine: 10 ml of yellow cloudy fluid in a sterile container - 1 Pap stained Sure Path. ??(pc) Clinical Diagnosis and History The patient is an 82 year old woman with recurrent UTI and bladder lesions. REPORT IMAGES AND SCANNED DOCUMENTS, IF INCLUDED, ONLY VIEWABLE IN PDF VERSION OF REPORT The performance characteristics of some immunohistochemical stains, in-situ hybridization and fluorescence in-situ hybridization tests and immunophenotyping by flow cytometry cited in this report (if any) were determined by the Surgical Pathology and Flow Cytometry Departments at [facility] as part of an ongoing quality assurance assessor program and in compliance with federally mandated regulations drawn from the Clinical Laboratory Improvement Act of 1988 (CLIA '88). ??Some of these tests rely on the use of analyte specific reagents and are subject to specific labeling requirements by the US Food and Drug Administration. ??Such diagnostic tests may only be performed in a facility that is certified by the Department of Health and Human Services as a high complexity laboratory under CLIA '88. ??The FDA has determined that such clearance or approval is not necessary. ??This test is used for clinical purposes. ??It should not be regarded as investigational or for research. ??Nevertheless, federal rules concerning the medical use of analyte specific reagents require that the following disclaimer be attached to the report: ??This test was developed and its performance characteristics determined by the Surgical Pathology and Flow Cytometry Departments of [facility]. ??It has not been cleared or approved by the U. S. Food and Drug Administration. Poncho Melgar MD LAB CYTOLOGY ORDERABLES Fin al Result PATHOLOGY [facility] 3rd Floor [place], [place] [phone] * Surgical pathology (04/11/2023 3:19 PM CRYSTAL GAZER) Tissue (Bladder, biopsy) 04/11/2023 3:19 PM CRYSTAL GAZER Narrative PATH[facility]Y [facility] - 04/12/2023 2:09 PM CRYSTAL GAZER EPIC results best viewed via link to PDF [facility] [place] [address] Note to Patients: This report may contain a detailed description of human tissue sent by a health care provider to the laboratory for pathologic evaluation. The content of this report is essential for diagnosis and may provide important critical findings. This information may be unfamiliar to patients to review without a medical professional present. It is advised that the patient review this report in the presence of a health care provider who can answer questions and explain the details. SURGICAL PATHOLOGY REPORT FINAL Patient Name: ?? MARIA A JEAN #: ??[id number] Gender: ??F : ??[id number] (Age: 82) Address: ??[address] [place] [address] ??[id number] Hospital #: ??[id number] Taken:04/11/2023 Received:04/11/2023 Reported: 04/12/2023 Patient Type: [facility] SDS ?? Service: Surgery Location: [facility] OR POD1 Physician(s): ??Poncho Melgar M.D. Diagnosis: A. Bladder, biopsy ? - Urothelial mucosa with acute and chronic inflammation, granulation tissue, squamous metaplasia, and reactive epithelial changes ? - No evidence of malignancy ?? leif/04/12/2023 11:40 By this signature, I attest that the above diagnosis is based upon my personal examination of the slides(and/or other material indicated in the diagnosis). Yong Lora M.D., Ph.D. Report Electronically Reviewed and Signed Out By ??Yong Lora M.D., Ph.D. 04/12/2023 14:09:27 Microscopic Description and Comment: Microscopic examination substantiates the above cited diagnosis. Mihir Lobo M.D. History: The patient is an 82-year-old woman presenting with complicated urinary tract infection; history of pelvic surgery; recurrent UTI; lesion of bladder. ??Operative procedure: ??Cystoscopy; bladder biopsy with fulguration. Specimen(s) Received: A: Bladder biopsies Gross Description: Received in formalin, labeled with the patient? ? s identifiers and bladder biopsies ??and consists of multiple bob and red fragment(s) of soft tissue measuring 0.9 x 0.7 x 0.2 cm in aggregate. ?Labeled A1. Jar 0. ?? sxst/04/11/2023 18:35 PA(s): Connie Rick By this signature, I attest that the above diagnosis is based upon my personal examination of the slides(and/or other material). Addenda/Procedures The performance characteristics of some immunohistochemical stains, fluorescence in-situ hybridization tests and immunophenotyping by flow cytometry cited in this report (if any) were determined by the Surgical Pathology and Flow Cytometry Departments at [facility] as part of an ongoing quality assurance assessor program and in compliance with federally mandated regulations drawn from the Clinical Laboratory Improvement Act of 1988 (CLIA '88). ??Some of these tests rely on the use of analyte specific reagents and are subject to specific labeling requirements by the US Food and Drug Administration. ??Such diagnostic tests may only be performed in a facility that is certified by the Department of Health and Human Services as a high complexity laboratory under CLIA '88. ??The FDA has determined that such clearance or approval is not necessary. ??This test is used for clinical purposes. ??It should not be regarded as investigational or for research. ??Nevertheless, federal rules concerning the medical use of analyte specific reagents require that the following disclaimer be attached to the report: This test was developed and its performance characteristics determined by the Surgical Pathology and Flow Cytometry Departments of [facility]. ??It has not been cleared or approved by the U. S. Food and Drug Administration. IMAGES AND SCANNED DOCUMENTS, IF INCLUDED, ONLY VIEWABLE IN PDF VERSION OF REPORT Poncho Melgar MD LAB PATHOLOGY ORDERABLES Fi nal Result PATHOLOGY [facility] 3rd Floor [place], [place] [phone] * Urine culture Urine, bladder (04/11/2023 3:02 PM CRYSTAL GAZER) Report Final Report: Less than 100,000 colonies/mL (clinically insignificant growth based on current clinical standards) [facility] Organism (CLINICALLY INSIGNIFICANT GROWTH [facility] Urine, bladder 04/11/2023 3: 02 PM CRYSTAL GAZER 04/11/2023 4:52 PM CRYSTAL GAZER N[facility]ative [facility] - 04/12/2023 7:01 PM CRYSTAL GAZER Bladder Urine for culture Indications for Culture:->Urology patient Specimen received in a sterile container. Specimen collected in the operating room. Testing performed by [facility] Microbiology Laboratory ([phone]) Poncho Melgar MD LAB MICROBIOLOGY - GENERAL ORDERABLES Final Result [facility] Department [place] [address] * Differential, auto (04/11/2023 2:00 PM CRYSTAL GAZER) Neutrophil abs 2.5 1.5 - 6.5 K/cumm [facility] Imm gran abs 0.0 0.0 - 0.1 K/cumm [facility] Lymphocyte abs 2.5 0.8 - 3.3 K/cumm [facility] Monocyte abs 0.6 0.2 - 0.8 K/cumm [facility] Eosinophil abs 0.1 0.0 - 0.5 K/cumm [facility] Basophil abs 0.1 0.0 - 0.1 K/cumm [facility] Neutrophil pct 42.8 % [facility] Comment: Interpretive Data Percent cell count reference ranges are not reported, since discordance with absolute values may lead to misinterpretation of CBC data. Current Interpretive Data was last revised on 2017. Imm gran pct 0.3 % [facility] Comment: Interpretive Data Percent cell count reference ranges are not reported, since discordance with absolute values may lead to misinterpretation of CBC data. Current Interpretive Data was last revised on 2017. Lymphocyte pct 43.4 % [facility] Comment: Interpretive Data Percent cell count reference ranges are not reported, since discordance with absolute values may lead to misinterpretation of CBC data. Current Interpretive Data was last revised on 2017. Monocyte pct 10.9 % [facility] Comment: Interpretive Data Percent cell count reference ranges are not reported, since discordance with absolute values may lead to misinterpretation of CBC data. Current Interpretive Data was last revised on 2017. Eosinophil pct 1.7 % [facility] Comment: Interpretive Data Percent cell count reference ranges are not reported, since discordance with absolute values may lead to misinterpretation of CBC data. Current Interpretive Data was last revised on 2017. Basophil pct 0.9 % [facility] Comment: Interpretive Data Percent cell count reference ranges are not reported, since discordance with absolute values may lead to misinterpretation of CBC data. Current Interpretive Data was last revised on 2017. Blood 04/11/2023 2:00 PM CRYSTAL GAZER 04/11/2023 2:17 PM CRYSTAL GAZER Simone Millard NP LAB BLOOD ORDERABLES Final Result Performing Organization Address City/[facility]/ZIP Co de Phone Number [facility] [place] [address] * (ABNORMAL) CBC with auto differential (04/11/2023 2:00 PM CRYSTAL GAZER) WBC 5.8 3.8 - 9.9 K/cumm [facility] Hgb 12.2 11.9 - 15.5 g/dL [facility] Hct 36.5 35.6 - 45.5 % [facility] Plt 335 150 - 400 K/cumm [facility] MPV 12.5(H) 9.1 - 12.3 fL [facility] RBC 4.06 3.90 - 5.20 M/cumm [facility] MCV 89.9 81.3 - 96.4 fL [facility] MCH 30.0 27.1 - 33.3 pg [facility] MCHC 33.4 32.3 - 35.7 g/dL [facility] RDW CV 14.0 11.1 - 14.9 % [facility] RDW SD 46.0 35.7 - 48.1 fL [facility] NRBC abs 0.00 0.00 - 0.01 K/cumm [facility] Blood 04/11/2023 2:00 PM CRYSTAL GAZER 04/11/2023 2:17 PM CRYSTAL GAZER Simone Millard NP LAB BLOOD ORDERABLES Final Result Performing Organization Address City/[facility]/ZIP Co de Phone Number [facility] [place] [address] * Type and screen (04/11/2023 2:00 PM CRYSTAL GAZER) ABO Rh O Positive Alejandra, indirect Negative [facility] Blood 04/11/2023 2:00 PM CRYSTAL GAZER 04/11/2023 2:13 PM CRYSTAL GAZER Narrative [facility] - 04/11/2023 3:41 PM CRYSTAL GAZER Has the patient had Daratumumab or Isatuximab in the past 6 months?->Unknown Simone Millard NP LAB BLOOD BANK TEST ORDERAB LES Final Result [facility] Department [place] [address] documented in this encounter Visit Diagnoses Diagnosis Complicated UTI (urinary tract infection) History of pelvic surgery Recurrent UTI Urinary tract infection, site not specified Lesion of bladder Unspecified disorder of bladder documented in this encounter Admitting Diagnoses Diagnosis Complicated UTI (urinary tract infection) History of pelvic surgery Recurrent UTI Urinary tract infection, site not specified Lesion of bladder Unspecified disorder of bladder documented in this encounter Administered Medications Inactive Administered Medications - up to 3 most recent administrations Medication Order MAR Action Action Date Dose Rate Site acetaminophen (TYLENOL) tablet 1,000 mg 1,000 mg, oral, Once, On Sun04/11/23 at 1345, For 1 dose, Pre-Op, Indications: Pre-Emptive AnalgesiaIndications:Pre-Emp tive Analgesia Given 04/11/2023 1:39 PM CRYSTAL GAZER 1,000 mg Carrier Fluids for Secondary Infusion - 0.9% Sodium Chloride 30 mL, intravenous, As needed, For priming tubing and/or flushing, Starting on Sun04/11/23 at 1312, Pre-Op, 0-250 ml/hr to flush line after IV infusions when no maintenance IV ordered. Infuse 30mL at the same rate as the secondary infusion. Run as primary IV, not intended for KVO. fentaNYL (SUBLIMAZE) preservative free injection 25 mcg 25 mcg, intravenous, Every 10 min PRN, 1st line for pain, Starting on Sun04/11/23 at 1540, Phase I, Switch to 2nd line analgesic order if pain is uncontrolled or increasing after 2 doses. Notify Anesthesiologist if total PACU dose reaches 100 mcg and pain score 5/10 or more., Indications: PainIndications:Pain Given 04/11/2023 4:00 PM CRYSTAL GAZER 25 mcg gabapentin (NEURONTIN) capsule 300 mg 300 mg, oral, Once, On Sun04/11/23 at 1345, For 1 dose, Pre-Op, Indications: Pre-Emptive AnalgesiaIndications:Pre-Emp tive Analgesia Given 04/11/2023 1:39 PM CRYSTAL GAZER 300 mg haloperidol (HALDOL) injection 1 mg 1 mg, intravenous, Once as needed, nausea, vomiting, Starting on Sun04/11/23 at 1540, For 1 dose, Phase I, If nausea/vomiting not relieved by ondansetron within 30 minutes or if ondansetron has been given within the last 6 hours. Given 04/11/2023 4:00 PM CRYSTAL GAZER 1 mg Lactated Ringer's (LR) infusion 30 mL/hr, intravenous, Continuous, Starting on Sun04/11/23 at 1345, Pre-Op Lactated Ringer's (LR) infusion 30 mL/hr, intravenous, Continuous, Starting on Sun04/11/23 at 1345 Rate/Dose Verify 04/11/2023 2:32 PM CRYSTAL GAZER 30 mL/hr New Bag 04/11/2023 1:40 PM CRYSTAL GAZER 30 mL/hr 30 mL/hr Lactated Ringer's (LR) infusion 125 mL/hr, intravenous, Continuous, Starting on Sun04/11/23 at 1345, Pre-Op, May discontinue when discharge criteria met. sodium chloride 0.9% flush 0.5-20 mL 0.5-20 mL, intra-catheter, As needed, line care, Starting on Sun04/11/23 at 1312, Pre-Op, Flush volume based on line type and size. Flush before and after each use. documented in this encounter Discontinued Medications Medication Sig Discontinue Reason Start Date End Da te apixaban (ELIQUIS) 5 mg tabletIndications:atrial fibrillation Take 1 tablet (5 mg total) by mouth 2 (two) times a day Therapy completed 02/20/2023 03/29/2023 Eliquis 5 mg tablet Take 1 tablet (5 mg total) by mouth 2 (two) times a day Therapy completed 02/17/2023 03/29/2023 guaiFENesin-codeine (GUAITUSS AC) liquid 100-10 mg/5 mL TAKE 10 ML BY MOUTH EVERY 4 TO 6 HOURS NEEDED FOR COUGH Therapy completed 09/29/2021 03/29/2023 imiquimod (ALDARA) 5 % cream Therapy completed 12/14/2022 03/29/2023 metoprolol XL (TOPROL-XL) 25 mg extended release tablet Take 1 tablet (25 mg total) by mouth every morning Therapy completed 03/03/2022 03/29/2023 Premarin vaginal cream Therapy completed 09/17/2019 024 sulfamethoxazole-trimetho prim (BACTRIM DS) 800-160 mg per tablet Take 1 tablet by mouth 2 (two) times a day Therapy completed 10/24/2021 03/29/2023 vancomycin (VANCOCIN) 125 mg capsuleIndications:Clostr idioides difficile infection Take 1 capsule (125 mg total) by mouth 4 (four) times a day Therapy completed 03/29/2023 documented as of this encounter Historical Medications * This list may reflect changes made after this encounter. diphenhydrAMINE (Sleep Aid, diphenhydrAMINE,) 25 mg capsuleIndications :sleep Take 0.5 tablet/capsul e (12.5 mg total) by mouth nightly as needed for itching or sleep 4 aspirin 81 mg enteric coated tabletIndications: prevention of thrombosis Take 1 tablet (81 mg total) by mouth nightly 4 sotaloL (BETAPACE) 80 mg tabletIndications: Prevention of Recurrent Atrial Fibrillation Take 1 tablet (80 mg total) by mouth 2 (two) times a day 03/04/2023 4 cefdinir (OMNICEF) 300 mg capsuleIndications :Urinary Tract/Genitourinar y Infection Take 1 capsule (300 mg total) by mouth 2 (two) times a day 4 added in this encounter Active and Recently Administered Medications Times are shown in CRYSTAL GAZER. Scheduled Medication Order 04/09/2023 04/10/2023 04/11/2023 acetaminophen (TYLENOL) tablet 1,000 mg (COMPLETED) 1,000 mg, oral, Once, On Sun04/11/23 at 1345, For 1 dose, Pre-Op, Indications: Pre-Emptive Analgesia 1339 (Given - Provid er: Rajni Waldrop RN) ceFAZolin (ANCEF) 2,000 mg/20 mL in sterile water (premix) 2,000 mg (COMPLETED) 2,000 mg, intravenous, at 400 mL/hr, Administer over 3 Minutes, Once, On Sun04/11/23 at 1345, For 1 dose, Pre-Op, Administer within 60 minutes of incision., Indications: Prophylaxis, Surgical 1445 (Given - Provid er: Sneha Ramirez CRNA) gabapentin (NEURONTIN) capsule 300 mg (COMPLETED) 300 mg, oral, Once, On Sun04/11/23 at 1345, For 1 dose, Pre-Op, Indications: Pre-Emptive Analgesia 1339 (Given - Provid er: Rajni Waldrop RN) Continuous Medication Order 04/09/2023 04/10/2023 04/11/2023 Lactated Ringer's (LR) infusion 30 mL/hr, intravenous, Continuous, Starting on Sun04/11/23 at 1345, Pre-Op 1314 (Due)1345 (Due) Lactated Ringer's (LR) infusion 30 mL/hr, intravenous, Continuous, Starting on Sun04/11/23 at 1345 1340 (New Bag - Prov ider: Rajni Waldrop, JOHN)1432 (Rate/Dose Verify - Provider: Sneha Ramirez CRNA)1530 (Anesthesia Volume Adjustment - Provider: Sneha Ramirez CRNA) Lactated Ringer's (LR) infusion 125 mL/hr, intravenous, Continuous, Starting on Sun04/11/23 at 1345, Pre-Op, May discontinue when discharge criteria met. 1345 (Due)1727 (Due) 1911 (Due) PRN Medication Order 04/09/2023 04/10/2023 04/11/2023 Carrier Fluids for Secondary Infusion - 0.9% Sodium Chloride 30 mL, intravenous, As needed, For priming tubing and/or flushing, Starting on Sun04/11/23 at 1312, Pre-Op, 0-250 ml/hr to flush line after IV infusions when no maintenance IV ordered. Infuse 30mL at the same rate as the secondary infusion. Run as primary IV, not intended for KVO. fentaNYL (SUBLIMAZE) preservative free injection 25 mcg 25 mcg, intravenous, Every 10 min PRN, 1st line for pain, Starting on Sun04/11/23 at 1540, Phase I, Switch to 2nd line analgesic order if pain is uncontrolled or increasing after 2 doses. Notify Anesthesiologist if total PACU dose reaches 100 mcg and pain score 5/10 or more., Indications: Pain 1600 (Given - Provid er: Amanda Crenshaw) fentaNYL (SUBLIMAZE) preservative free injection 50 mcg 50 mcg, intravenous, Every 10 min PRN, 2nd line for pain, Starting on Sun04/11/23 at 1540, Phase I, May administer 10 mintes after 2nd dose of 1st line analgesic agent for uncontrolled or increasing pain. Revert to 1st line dose if POSS of 3. Notify Anesthesiologist if total PACU dose reaches 100 mcg and pain score 5/10 or more., Indications: Pain haloperidol (HALDOL) injection 1 mg (COMPLETED) 1 mg, intravenous, Once as needed, nausea, vomiting, Starting on Sun04/11/23 at 1540, For 1 dose, Phase I, If nausea/vomiting not relieved by ondansetron within 30 minutes or if ondansetron has been given within the last 6 hours. 1600 (Given - Provid er: Amanda Crenshaw) naloxone (NARCAN) 0.4 mg/mL injection 0.04-0.4 mg 0.04-0.4 mg, intravenous, Once as needed, other, excessive sedation/respiratory depression, Starting on Sun04/11/23 at 1540, For 1 dose, Phase I, Dilute 0.4 mg with 9 mL NS (final concentration 0.04 mg/mL). For respiratory depression (respiratory rate less than 6), administer 0.4 mg IVP over 30 seconds. For excessive sedation administer 0.04 mg (1 mL) every 1 minute until desired level of alertness. For IV, administer over 30 seconds., Indications: Opioid Toxicity ondansetron (ZOFRAN) injection 4 mg 4 mg, intravenous, Administer over 2 Minutes, Once as needed, nausea, vomiting, Starting on Sun04/11/23 at 1540, For 1 dose, Phase I, Proceed to haloperidol if ondansetron has been given within the last 6 hours. sodium chloride 0.9% flush 0.5-20 mL 0.5-20 mL, intra-catheter, As needed, line care, Starting on Sun04/11/23 at 1312, Pre-Op, Flush volume based on line type and size. Flush before and after each use. sodium chloride 0.9% irrigation (CANCELED) As needed, Starting on 04/11/23 at 1455, Intra-Op 1455 (Given - Provid er: Poncho Melgar MD - Comment: irrigation on field)1512 (Given - Provider: Poncho Melgar MD - Comment: irrigation on field) sterile water irrigation (CANCELED) As needed, Starting on Sun04/11/23 at 1455, Intra-Op 1455 (Given - Provid er: Poncho Melgar MD - Comment: irrigation hanging)1518 (Given - Provider: Poncho Mlegar MD - Comment: irrigation hanging) documented in this encounter Orders Medications Ordered That Vasquez ht Not Have Been Administered Count Last Ordered Date First Ordered Date Carrier Fluids for Secondary Infusion - 0.9% Sodium Chloride 1 04/11/2023 ceFAZolin (ANCEF) 2,000 mg/2 0 mL in sterile water (premix) 2,000 mg 1 04/11/2023 fentaNYL (SUBLIMAZE) preserv ative free injection 50 mcg 1 04/11/2023 Lactated Ringer's (LR) infusion 2 4 naloxone (NARCAN) 0.4 mg/mL injection 0.04-0.4 mg 1 04/11/2023 ondansetron (ZOFRAN) injection 4 mg 1 04/11 sodium chloride 0.9% flush 0.5-20 mL 1 03/14 sodium chloride 0.9% irrigation 1 4 sterile water irrigation 1 04/11/2023 Discharge Count Last Ordered Date First Orde red Date DISCHARGE PATIENT 1 04/11/2023 documented in this encounter Care Teams Bolt Man Relationship Specialty Start Date End Date Phan Garvin MD PCP - General Family Medicine 09/14/22 Phan Garvin MD Family Medicine 09/14/22 documented as of this encounter
--- OUTSIDE RECORDS SUMMARY | 2024-03-15 10:26 | XMS_ITS | Encounter Summary ---
Author Organization [facility] Address [address] [place] [address] Phone Care Team Providers Care Demolition Hammer Operator Name Role Phone Phan Garvin MD Primary Care Provider [phone] Phan Garvin MD Unavailable [phone] Reason for Visit * Reason Onset Date Comments UACX result 04/09/2023 Encounter Details Date Type Department Care Team (Late st Contact Info) Description 04/09/2023 Telephone [facility] Obstetrics and Gynecology [facility] 7th Floor [address] [place] [address] Maria Esther Brown RN UACX result Social History Tobacco Use Types Packs/Day Years Used Date Smoking Tobacco: Never Smokeless Tobacco: Never Alcohol Use Standard Drinks/Week Comments Yes 0 (1 standard drink = 0.6 oz pur e alcohol) AUDIT-C Answer Date Recorded Q1: How often do you have a drink containing alcohol? Never 03/29/2023 Q2: How many drinks containi ng alcohol do you have on a typical day when you are drinking? Patient does not drink Q3: How often do you have si x or more drinks on one occasion? 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 Reviewed UaCX result. Per Dr. Melgar, patient is to stop macrobid and begin Cipro BID X3 days. Patient has surgery scheduled 04/11/23 and she may continue Cipro. MAKER documented in this encounter Plan of Treatment Not on file documented as of this encounter Visit Diagnoses Not on filedocumented in this encounter Care Teams Demolition Hammer Operator Relationship Specialty Start Date End Date Phan Garvin MD PCP - General Family Medicine 09/14/22 Phan Garvin MD Family Medicine 09/14/22 documented as of this encounter
--- OUTSIDE RECORDS SUMMARY | 2024-03-15 10:26 | XMS_ITS | Encounter Summary ---
Author Organization [facility] Address [address] [place] [address] Phone Care Team Providers Care Repairer Maintenance Building Name Role Phone Phan Garvin MD Primary Care Provider [phone] Phan Garvin MD Unavailable [phone] Encounter Details Date Type Department Care Team (Late st Contact Info) Description 04/10/2023 Telephone [facility] Obstetrics and Gynecology [address] [facility] 7th Floor [address] [place] [address] Gissell Anaya, B.A. 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
--- OUTSIDE RECORDS SUMMARY | 2024-03-15 10:26 | XMS_ITS | Encounter Summary ---
Author Organization [facility] Address [address] [place] [address] Phone Care Team Providers Care Fast Food Fry Cook Name Role Phone Phan Garvin MD Primary Care Provider [phone] Phan Garvin MD Unavailable [phone] Reason for Visit * Reason Onset Date Comments SHANNAN 04/05/2023 Encounter Details Date Type Department Care Team (Late st Contact Info) Description 04/05/2023 Telephone [facility] Obstetrics and Gynecology [facility] 7th Floor [address] [place] [address] Maria Esther Brown, RN SHANNAN Social History Tobacco Use Types Packs/Day Years [...] on file Legal Sex Female 7:11 PM FINISHED CARPET INSPECTOR Gender Identity Not on file Sexual Orientation Not on file 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 Her antibiotic was changed to nitrofurantoin when culture resulted. She took 5 days of antibiotic but c/o UTI symptoms. Completed nitrofurantoin last night. Will go for SHANNAN to [employer]. Patient reports that she stopped performing CISC 2 weeks ago due to pain of catheterizing. She is scheduled for surgery 04/11/23 (cystoscopy). She spoke with Anesthesia today. SHED CARPET INSPECTOR documented in this encounter Plan of Treatment Not on file documented as of this encounter Procedures Procedure Name Priority Date/Time Associated Diagnosis Comments URINE CULTURE Routine 04/05/2023 11:36 AM FINISHED CARPET INSPECTOR Recurrent UTI documented in this encounter Results * (ABNORMAL) Urine culture Urine, clean voided (04/05/2023 11:36 AM FINISHED CARPET INSPECTOR) Urine culture (A) [facility] Comment: ??CULTURE, URINE, ROUTINE ?Micro Number: ?[id number] ??Test Status: ? Final ??Specimen Source: ?? Urine, clean catch ??Specimen Quality: ??Adequate ??Result: ?Greater than 100,000 CFU/mL of Pseudomonas aeruginosa ?Ps.aeruginosa ?INT ?? NU ?? AMIKACIN ? S ? 2 ?? CEFEPIME ? S ? 2 ?? CEFTAZIDIME ?S ? 4 ?? CIPROFLOXACIN ?S ? 0.5 ?? GENTAMICIN ? S ? <=1 ?? IMIPENEM ? S ? 2 ?? LEVOFLOXACIN ? S ? 0.5 ?? MEROPENEM ?S ? 0.5 ?? PIP/TAZOBACTAM ? S ? 8 S=Susceptible ??I=Intermediate ??R=Resistant ??* = Not Tested NR = Not Reported ??NN = See Therapy Comments Urine, clean voided 04/05/2023 11:36 AM FINISHED CARPET INSPECTOR 04/05/2023 11:36 AM FINISHED CARPET INSPECTOR Narrative [facility] - 04/07/2023 1:17 PM FINISHED CARPET INSPECTOR FASTING:NO FASTING: NO us Poncho Melgar MD LAB MICROBIOLOGY - GENERAL ORDERABLES Final Result Performing Organization Address [facility] Co de Phone Number [facility] [address] [place] [address] documented in this encounter Visit Diagnoses Diagnosis Recurrent UTI- Primary Urinary tract infection, site not specified documented in this encounter Care Teams Fast Food Fry Cook Relationship Specialty Start Date End Date Phan Garvin MD PCP - General Family Medicine 09/14/22 Phan Garvin MD Family Medicine 09/14/22 documented as of this encounter
--- OUTSIDE RECORDS SUMMARY | 2024-03-15 10:26 | XMS_ITS | Encounter Summary ---
Author Organization [facility] Address [address] [place] [address] Phone Care Team Providers Care Drier Tender Naphthalene Name Role Phone Phan Garvin MD Primary Care Provider [phone] Phan Garvin MD Unavailable [phone] Encounter Details Date Type Department Care Team (Late st Contact Info) Description 04/05/2023 Telephone [facility] Obstetrics and Gynecology [address] [facility] 7th Floor [address] [place] [address] Maria Esther Brown, RN Social [...] on file Legal Sex Female 7:11 PM HOUSEMAN Gender Identity Not on file Sexual Orientation Not on file 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 Melgar's approval to hold ASA therapy 7 days prior to her scheduled surgery on 04/11/23. Patient verbalized understanding and will hold ASA beginning 04/05/23. EMAN * Telephone Encounter - Maria Esther Brown RN - 04/05/2023 11:48 AM HOUSEMAN ----- Message from Maria Esther Brown RN sent at 04/05/2023 10:02 AM HOUSEMAN ----- Regarding: FW: TPAP Message Dr Melgar Message to Dr. Melgar today about ASA therapy ----- Message ----- From: Simone Millard NP Sent: 04/05/2023 9:43 AM HOUSEMAN To: [facility] Clinical Pool Subject: TPAP Message Dr Melgar The patient is on aspirin therapy and has a history of atrial fibrillation . For the proposed procedure, the risk of increased bleeding likely outweighs the benefits of preoperative antiplatelet therapy. If the surgeon agrees with risk assessment, we would support stopping aspirin up to 7-10 days prior to the procedure and resuming therapy when feasible in the postoperative period. [email or web address] staff message sent to surgeon's office. Please call the [facility] chart room clinician ([phone]) with any questions. >Patient reports taking macrobid currently for another UTI set to finish antibiotic tomorrow however still reporting burning and urinary frequency. Urine culture from 03/13/23 negative for UTI, please coordinate with patient if further testing is required prior to procedure. [email or web address] message sent to surgeons office. >NOTE: There is no need to reply to this message but if you would like to send a non-urgent reply, please address it to the [facility] staff message POOL address [facility] PASSPORT APPLICATION EXAMINER (number [id number]). Please note that messages to this address will be replied to within approximately 1 business day. If you have an urgent reply, please call the CPAP at [phone]. EMAN documented in this encounter Plan of Treatment Not on file documented as of this encounter Visit Diagnoses Not on filedocumented in this encounter Care Teams Drier Tender Naphthalene Relationship Specialty Start Date End Date Phan Garvin MD PCP - General Family Medicine 09/14/22 Phan Garvin MD Family Medicine 09/14/22 documented as of this encounter
--- OUTSIDE RECORDS SUMMARY | 2024-03-15 10:26 | XMS_ITS | Encounter Summary ---
Author Organization [facility] Healthcare Address [address] [place] [address] Care Team Providers Care Pharmacy Clinical Specialist Name Role Phone Phan Garvin MD Primary Care Provider [phone] Phan Garivn MD Unavailable [phone] Reason for Visit * Auth/Cert (Routine) Specialty Diagnoses / Procedures Referred By Contashley t Referred To Contact Diagnoses Complicated UTI (urinary tract infection) History of pelvic surgery Recurrent UTI Lesion of bladder Complicated UTI (urinary tract infection) [N39.0] History of pelvic surgery [Z98.890] Recurrent UTI [N39.0] Lesion of bladder [N32.9] Procedures MI CYSTOURETHROSCOPY WITH BIOPSY CYSTOSCOPY BIOPSY BLADDER - CYSTOSCOPY and fulguration Referral ID Status Reason Start Date Expiration Date Visits Re quested Visits Authorized [id number] 1 1 Encounter Details Date Type Department Care Team (Late st Contact Info) Description 04/11/2023 2:32 PM NEWSPAPER CLIPPER Anesthesia Event [facility] Operating Room [address] [place] [id number] Ld Bailey MD [address] [place] [address] Simone Millard NP [phone] [place] [address] Anesthesia Record Procedure Summary Procedure Name Responsible Anesthesiologist Anesthesia Start Time Anesthesia Stop Time CYSTOSCOPY (Urethra) Ld Bailey MD 4 1432 04/11/23 1545 Events Date Time Event Comment 04/11/2023 1308 In Preop 1432 An Start 1436 In Room 1437 An Start Data 1443 An Induction The patient was reevaluated immediately before moderate or deep sedation use and before anesthesia induction. 1443 An LMA 1445 Anesthesia Ready 1449 Proc Start 1455 1528 Proc Fin 1529 Airway Removed 1534 an stop data 1537 Out of Room 1545 Handoff to RN I completed my handoff to the receiving nurse during which we: 1. Patient identified 2. Responsible provider identified 3. Pertinent medical history reviewed 4. Procedure type and surgical course discussed 5. Intraoperative anesthetic management and any significant issues discussed 6. Expectations and concerns for postop period discussed 7. Questions solicited from receiving nurse 8. Patient disposition at the time of handoff: No value filed. 1545 An Stop Meds Name Total lidocaine (cardiac) syringe 2 % 40 mg propofol 90 mg fentaNYL 100 mcg ondansetron PF (ZOFRAN) 2 mg/mL injectio n 4 mg ceFAZolin (ANCEF) 2,000 mg/20 mL in ster ile water (premix) 2,000 mg 2,000 mg dexAMETHasone 4 mg/mL 4 mg glycopyrrolate 0.2 mg Lactated Ringer's (LR) infusion 700 mL * Agents Name O2% N2O O2 N2O Air Sevoflurane Inspired Sevoflurane * Blood No blood administrations on file. Lines, Drains, and Airways Type Details Placement Removal Peripheral IV Placement Date: 04/11/23; Placement Time: 1355; Catheter Size: 22 G; Orientation: Anterior, Left; Location: Forearm; Technique: Anatomical landmarks; Insertion Attempts: 1; Patient Tolerance: Tolerated well; Removal Date: 07/19/23; Removal Time: 1635; Removal Reason: Not present on admission 04/11/23 1355 by Rajni Waldrop RN 07/19/23 1635 by Prema Cain RN RETIRED Surgical Site 04/11/23; 1456; Va emiliano; 07/19/23 04/11/23 1456 by Mariam Bella RN 07/19/23 0000 by Julia Lagunas RN documented in this encounter Social History Tobacco [...] on file Legal Sex Female 7:11 PM NEWSPAPER CLIPPER Gender Identity Not on file Sexual Orientation Not on file 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 Not on file Not on file Not on file documented as of this encounter OR Notes * Anesthesia Postprocedure Evaluation - Domingo Marx MD - 04/11/2023 4:26 PM CST Patient: Maria A Peralta Procedure Summary Date: 04/11/23 Room / Location: [facility] OR POD 1 ROOM 321 / [facility] OR POD 1 Anesthesia Start: 1432 Anesthesia Stop: 1545 Procedures: CYSTOSCOPY (Urethra) BIOPSY BLADDER x5 - FULGURATION AND MANUAL IRRIGATION OF THE BLADDER (Urethra) Diagnosis: Complicated UTI (urinary tract infection) History of pelvic surgery Recurrent UTI Lesion of bladder (Complicated UTI (urinary tract infection) [N39.0]) (History of pelvic surgery [Z98.890]) (Recurrent UTI [N39.0]) (Lesion of bladder [N32.9]) Surgeons: Poncho Melgar MD Responsible Provider: Ld Bailey MD Anesthesia Type: general ASA Status: 3 Anesthesia Type: general Last vitals BP 152/88 (BP Location: Right arm, Patient Position: Lying) Pulse 71 Temp 36.4 ??C (97.5 ??F) (Temporal) Resp 15 SpO2 98% Anesthesia Post Evaluation Patient location during evaluation: PACU Patient participation: complete - patient participated Level of consciousness: fully awake Pain management: satisfactory to patient Airway patency: patent Cardiovascular status: hemodynamically stable Respiratory status: room air Hydration status: acceptable Pt is: normothermic Nausea/Vomiting status: none No notable events documented. PAPER CLIPPER * Anesthesia Procedure Notes - Sneha Ramirez CRNA - 04/11/2023 2:45 PM CSTAssociated Order(s): Airway Airway Patient location: OR Indications for airway management: anesthesia Difficult airway: no Staff: Supervising provider: Ld Bailey MD Placed by: ASSOCIATE MERCHANT: Sneha Ramirez CRNA Emergent airway documentation: Risks and benefits discussed: yes Consent obtained: yes Consent given by: patient Airway prep: Preoxygenated: yes Patient position: sniffing MILS maintained throughout: yes Mask difficulty assessment: 1 - vent by mask Spontaneous ventilation during airway: absent Sedation level during airway: GA Final airway details: Final airway type: supraglottic airway SGA size: 4 Number of attempts: 1 Ventilation between attempts: BVM PAPER CLIPPER * Anesthesia Preprocedure Evaluation - Ld Bailey MD - 04/05/2023 8:36 AM CST Images from the original note were not included. [facility] Preoperative Assessment and Planning Preoperative Evaluation Record Evaluation type/location: TPAP from [facility] Planned procedure site: [facility] PVT OR (Pod 1) Date: 04/05/23 NOTE: This note represents a preoperative evaluation initiated via telephone interview. NO PHYSICALEXAM was performed at the time of initial assessment. A physical exam may be added to this note anddocumented below. Anesthesia Evaluation Maria A Peralta is a 82 y.o. female Procedure(s): CYSTOSCOPY BIOPSY BLADDER - CYSTOSCOPY and fulguration Pre-Op Diagnosis Codes: * Complicated UTI (urinary tract infection) [N39.0] * History of pelvic surgery [Z98.890] * Recurrent UTI [N39.0] * Lesion of bladder [N32.9] HISTORY HPI Maria A Peralta is a 82 y.o. female who is being evaluated prior to undergoing CYSTOSCOPY (Urethra) - With bladder biopsy and fulguration and BIOPSY BLADDER - CYSTOSCOPY and fulguration for recurrent/complicated UTIs, hx of pelvic surgery, lesion of bladder. Past Medical History Information obtained from: patient and chart. Neurological Pertinent negatives: seizures; neuromuscular disease; CVA/stroke and TIA Cardiovascular + Systolic or diastolic dysfunction w/o CHF (per TTE 02/2022) Diastolic dysfunction w/o CHF. Diastolic function: stage I - impaired relaxation LVEF: unspecified normal. + Current valvular disease (pt reports remote hx of MVP, calcified mitral valve per TTE 02/2022) - + Atrial fibrillation/flutter (on aspirin and sotolol) - Rhythm type: paroxysmal (multiple episodes< 7 days). 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 Pertinent negatives: diabetes mellitus; obesity (BMI >30); cancer history; rheumatological disease and transplanted organ Functional Capacity Functional capacity: <4 METs Functional capacity limited by a non-cardiovascular, non-pulmonary condition. Comments: Patient ambulates with walker as needed due to pinched nerve and neuropathy. Patient denies SOB or CP with activity. Patient able to complete ADLs independently. Review of Systems + easy bruising (denies spontaneous bleeding) + muscle weakness (BLE) + numbness/tingling (BLE) + hard of hearing (bilateral aids) + vision loss (glasses) Pertinent negatives: productive cough; wheezing; SOB; recent cold/flu; fever; chest pain; palpitations; orthopnea; pedal edema; PND; previous transfusion; melena/hematochezia; bleeding problems; syncope; dizziness; nausea; dysphagia; diarrhea; dentures/partials; chipped/loose teeth; abdominal pain and no unexpected weight change PAT Summary and Plans Cardiac risk classification of planned procedure: low cardiac risk. Preoperative assessment status: complete. Initial preoperative evaluation discussed with: Kiet Agosto MD Additional comments: Maria A Peralta is a 82 y.o. female who is being evaluated prior to undergoing a low cardiac risk surgery. Revised Cardiac Risk Index factors are (none) for a total RCRI of 0 out of 6. Functional capacity is <4 METs (specifically:ambulates with walker as needed, no CP or SOB). Obstructive sleep apnea (CHIKA) screening status is STOP-BANG incomplete but suspected to be 0-2 suggesting low risk for CHIKA. Neck circumference pending.. This assessment was performed via telephone. Therefore the physical exam has been deferred to the day of surgery team. The patient was provided with preoperative instructions for their medications. The patient was informed that instructions regarding stopping any therapeutic antiplatelet or anticoagulant medications will be provided by the surgeon's office. Patient instructions were provided by telephone and in writing sent via [facility] mail. Patient verbalized understanding of instructions. Blood bank needs for day of procedure: No type and screen needed Pending labs/tests include: T&S and CBC - per surgeon, discussed with CPAP attendingkailyn to collect DOS 03/04/23 CBC and BMP reviewed (media) and without significant findings from a perioperative standpoint >The patient is on aspirin therapy and has a history of atrial fibrillation . For the proposed procedure, the risk of increased bleeding likely outweighs the benefits of preoperative antiplatelet therapy. If the surgeon agrees with risk assessment, we would support stopping aspirin up to 7-10 days prior to the procedure and resuming therapy when feasible in the postoperative period. [place] staffmessage sent to surgeon's office. Please call the CPAP chart room clinician ([phone]) with any questions. >Patient was recently hospitalized 02/2023 for afib. Per cardiology MULTIPLE KNIFE EDGE TRIMMER OPERATOR telephone encounter, I reviewed Dr. Jennings's last office note as well as the consultation note from her recent hospitalization and Dr. Marrufo's progress notes. I recommend she continue holding the Eliquis and she can take aspirin 81 mg once daily as an alternative. If needed, I can provide a cardiac clearance letter. She is an acceptable candidate to have a bladder biopsy as she has had an echocardiogram and stress test within the past year that were unremarkable. She should not miss any doses of sotalol when she has the biopsy. >Patient reports taking macrobid currently for another UTI set to finish antibiotic tomorrow however still reporting burning and urinary frequency. Urine culture from 03/13/23 negative for UTI, please coordinate with patient if further testing is required prior to procedure. [place] message sent to surgeons office. TPAP assessment complete Preoperative evaluation performed by Simone Millard NP on 04/05/23 at 8:51 AM . Patient Active Problem List Diagnosis Date Noted Other thrombophilia ([facility]) 02/20/2023 Lesion of bladder 02/09/2023 Recurrent UTI 01/08/2023 Complicated UTI (urinary tract infection) 01/08/2023 Vaginal atrophy 01/08/2023 Pelvic floor dysfunction in female 01/08/2023 History of pelvic surgery 01/08/2023 Diarrhea 09/28/2022 Diverticulitis 09/28/2022 Anemia 09/28/2022 Paroxysmal atrial fibrillation ([facility]/HCC) ([facility]) 08/15/2022 Past Medical History: Diagnosis Date Atrial fibrillation ([facility]/HCC) ([facility]) 03/01/2022 Hypercholesteremia Osteoporosis Recurrent UTI Past Surgical History: Procedure Laterality Date BACK SURGERY 1993 BLADDER SURGERY 2018 COLONOSCOPY multiple OB History No obstetric history on file. Allergies Allergen Reactions Prednisone Rash Med List Status: Nurse Complete Set By: Lisha Dennis RN at 03/29/2023 2:01 PM Taking? Last Dose Start Date End Date Provider acidophilus-pectin, citrus 100 million cell-10 mg capsule 03/29/2023 -- -- Jag Robbins MD ascorbic acid (VITAMIN C) 500 mg tablet,chewable 03/29/2023 -- -- Jag Robbins MD aspirin 81 mg enteric coated tablet 03/28/2023 -- -- Jag Robbins MD cefdinir (OMNICEF) 300 mg capsule 03/29/2023 -- -- Jag Robbins MD cholecalciferol (VITAMIN D-3) 2000 unit capsule 03/29/2023 -- -- Jag Robbins MD cranberry 400 mg capsule 03/29/2023 -- -- Jag Robbins MD diphenhydrAMINE (Sleep Aid, diphenhydrAMINE,) 25 mg capsule 03/28/2023 -- -- Jag Robbins MD estradioL (ESTRACE) 0.01 % (0.1 mg/gram) vaginal cream Past Week 11/20/22 -- Jag Robbins MD levothyroxine (SYNTHROID) 25 mcg tablet 03/29/2023 03/03/22 -- Jag Robbins MD phenazopyridine (PYRIDIUM) 100 mg tablet 03/29/2023 12/31/21 -- Rekha Cline, MATY Take 1 tablet (100 mg total) by mouth 3 (three) times a day as needed (urinary pain) for up to 6 doses Take After meals Patient taking differently: Take 2 tablets (200 mg total) by mouth 3 (three) times a day as needed for urinary pain (urinary pain) Take After meals rosuvastatin (CRESTOR) 10 mg tablet -- 09/24/19 -- Jag Robbins MD sotaloL (BETAPACE) 80 mg tablet -- 03/30/23 -- Siddharth Jennings MD 80 MG ORALLY EVERY 12 HOURS turmeric root extract 500 mg capsule -- -- -- Jag Robbins MD vit C,I-Oy-racvl-lutein-zeaxan (PreserVision AREDS-2) 250-90-40-1 mg capsule 03/29/2023 -- -- Jag Robbins MD zinc 50 mg tablet 03/29/2023 -- -- Jag Robbins MD No current facility-administered medications for this encounter. Current Outpatient Medications: acidophilus-pectin, citrus 100 million cell-10 mg capsule ascorbic acid (VITAMIN C) 500 mg tablet,chewable aspirin 81 mg enteric coated tablet cefdinir (OMNICEF) 300 mg capsule cholecalciferol (VITAMIN D-3) 2000 unit capsule cranberry 400 mg capsule diphenhydrAMINE (Sleep Aid, diphenhydrAMINE,) 25 mg capsule estradioL (ESTRACE) 0.01 % (0.1 mg/gram) vaginal cream levothyroxine (SYNTHROID) 25 mcg tablet phenazopyridine (PYRIDIUM) 100 mg tablet vit C,D-Yc-xnomz-lutein-zeaxan (PreserVision AREDS-2) 250-90-40-1 mg capsule zinc 50 mg tablet rosuvastatin (CRESTOR) 10 mg tablet sotaloL (BETAPACE) 80 mg tablet turmeric root extract 500 mg capsule Social History Tobacco Use Smoking Status Never Smokeless Tobacco Never Alcohol Use: Not At Risk (03/29/2023) AUDIT-C Frequency of Alcohol Consumption: Never Average Number of Drinks: Patient does not drink Frequency of Binge Drinking: Never Substance and Sexual Activity Drug Use Never Family History Problem Relation Age of Onset Arthritis Mother Cancer Mother Heart disease Father There were no vitals filed for this visit. Relevant diagnostics: ECG(s): Media: Echocardiogram(s): 03/01/22: TTE Stress test(s): 04/06/22: Conclusions: Global left ventricular function is normal. Left ventricular ejection fraction is 74 %. Negative EKG portion of stress test. There is a small area of mild to moderate anteroseptal perfusion defect seen at both stress and rest imaging likely related to breast attenuation but cannot completely exclude previous infarction. No ischemia. Patient did have 7/10 chest tightness with Lexiscan infusion. Cardiac catheterization(s): N/A PFT(s): N/A Vascular studies: N/A Other: CXR: media PT: No results found for requested labs within last 30 days. INR: No results found for requested labs within last 30 days. APTT: No results found for requested labs within last 30 days. Hgb A1C: No results found for requested labs within last 30 days. CBC RBC: No results found for requested labs within last 30 days. RDW: No results found for requested labs within last 30 days. MCHC: No results found for requested labs within last 30 days. MCH: No results found for requested labs within last 30 days. MCV: No results found for requested labs within last 30 days. Hct: No results found for requested labs within last 30 days. Hgb: No results found for requested labs within last 30 days. WBC: No results found for requested labs within last 30 days. MPV: No results found for requested labs within last 30 days. Platelets: No results found for requested labs within last 30 days. RDW CV: No results found for requested labs within last 30 days. RDW Sd: No results found for requested labs within last 30 days. BMP Glucose: No results found for requested labs within last 30 days. Calcium: No results found for requested labs within last 30 days. Sodium: No results found for requested labs within last 30 days. Potassium: No results found for requested labs within last 30 days. CO2: No results found for requested labs within last 30 days. Chloride: No results found for requested labs within last 30 days. BUN: No results found for requested labs within last 30 days. Creatinine: No results found for requested labs within last 30 days. Artie index score: 95 DOS Physical Exam Medical history, medications, and allergies reviewed. Attestation: This PAT evaluation 04/11/2023. Airway Exam: Mallampati: II Cervical ROM: FROM TM distance: 3 Cardiovascular Exam: Rate: regular Rhythm: regular Pulmonary Exam: LCTA, bilat EENT Exam: trachea midline Dental Exam: Appears intact Skin Exam: Skin is warm. Turgor is normal. Current state: Patient's current state is cooperative. Anesthesia Plan ASA 3 My patient is approved for the Anesthesia Controlled Medication protocol when under care of a ASSOCIATE MERCHANT Planned anesthesia: General Team communication plan: LMA Induction: Induction: intravenous. Consent and Attending signature: I and/or my designee have discussed the anesthesia plan, benefits, possible alternatives, parental presence at time of induction (if indicated), and clinically relevant risks that may include dental injury, unintentional awareness, and/or other complications. The patient and/or parent/legal guardian understand, and agree to proceed. All questions answered. PAPER CLIPPER PAPER CLIPPER documented in this encounter Plan of Treatment Not on file documented as of this encounter Procedures Procedure Name Priority Date/Time Associated Diagnosis Comments MI AN PROCEDURE PLACEHOLDER Routine 04/11/2023 2:45 PM NEWSPAPER CLIPPER documented in this encounter Results * MI AN PROCEDURE PLACEHOLDER (04/11/2023 2:45 PM NEWSPAPER CLIPPER) Sneha Zuniga CRNA - 04/11/2023 2:45 PM NEWSPAPER CLIPPER Sneha Ramirez CRNA ? 04/11/2023 ??2:45 PM Airway Patient location: OR Indications for airway management: anesthesia Difficult airway: no Staff: Supervising provider: Ld Bailey MD Placed by: ASSOCIATE MERCHANT: Sneha Ramirez CRNA Emergent airway documentation: Risks and benefits discussed: yes Consent obtained: yes Consent given by: patient Airway prep: Preoxygenated: yes Patient position: sniffing MILS maintained throughout: yes Mask difficulty assessment: 1 - vent by mask Spontaneous ventilation during airway: absent Sedation level during airway: GA Final airway details: Final airway type: supraglottic airway SGA size: 4 Number of attempts: 1 Ventilation between attempts: BVM Ld Bailey MD ANESTHESIA ORDERABLES Fi nal Result documented in this encounter Visit Diagnoses Not on filedocumented in this encounter Administered Medications Inactive Administered Medications - up to 3 most recent administrations Medication Order MAR Action Action Date Dose Rate Site ceFAZolin (ANCEF) 2,000 mg/20 mL in sterile water (premix) 2,000 mg 2,000 mg, intravenous, at 400 mL/hr, Administer over 3 Minutes, Once, On Sun04/11/23 at 1345, For 1 dose, Pre-Op, Administer within 60 minutes of incision., Indications: Prophylaxis, SurgicalIndications:Prophylaxis, Surgical Given 04/11/2023 2:45 PM NEWSPAPER CLIPPER 2,000 mg dexAMETHasone (DECADRON) 4 mg/mL injection intravenous, Administer over 2 Minutes, As needed, Starting on Sun04/11/23 at 1445, Anesthesia Intra-op Given 04/11/2023 2:45 PM NEWSPAPER CLIPPER 4 mg fentaNYL (SUBLIMAZE) preservative free injection intravenous, As needed, Starting on Sun04/11/23 at 1445, Anesthesia Intra-op Given 04/11/2023 3:40 PM NEWSPAPER CLIPPER 50 mcg Given 04/11/2023 2:45 PM NEWSPAPER CLIPPER 25 mcg Given 04/11/2023 2:41 PM NEWSPAPER CLIPPER 25 mcg glycopyrrolate (ROBINUL) injection intravenous, Administer over 1 Minutes, As needed, Starting on Sun04/11/23 at 1452, Anesthesia Intra-op Given 04/11/2023 2:52 PM NEWSPAPER CLIPPER 0.2 mg Lactated Ringer's (LR) infusion 30 mL/hr, intravenous, Continuous, Starting on Sun04/11/23 at 1345 Rate/Dose Verify 04/11/2023 2:32 PM NEWSPAPER CLIPPER 30 mL/hr New Bag 04/11/2023 1:40 PM NEWSPAPER CLIPPER 30 mL/hr 30 mL/hr lidocaine (cardiac) (XYLOCAINE) preservative free injection intravenous, As needed, Starting on Sun04/11/23 at 1443, Anesthesia Intra-op, Indications: Ventricular ArrhythmiasIndications:Ventricular Arrhythmias Given 04/11/2023 2: 43 PM NEWSPAPER CLIPPER 40 mg ondansetron (ZOFRAN) injection intravenous, Administer over 2 Minutes, As needed, Starting on Sun04/11/23 at 1445, Anesthesia Intra-op Given 04/11/2023 2:45 PM NEWSPAPER CLIPPER 4 mg propofoL (DIPRIVAN) 10 mg/mL IV intravenous, As needed, Starting on Sun04/11/23 at 1443, Anesthesia Intra-op Bolus 04/11/2023 2:44 PM NEWSPAPER CLIPPER 20 mg New Bag 04/11/2023 2:43 PM NEWSPAPER CLIPPER 70 mg documented in this encounter Care Teams Pharmacy Clinical Specialist Relationship Specialty Start Date End Date Phan Garvin MD PCP - General Family Medicine 09/14/22 Phan Garvin MD Family Medicine 09/14/22 documented as of this encounter
--- OUTSIDE RECORDS SUMMARY | 2024-03-15 10:26 | XMS_ITS | Encounter Summary ---
Author Organization [facility] Address [address] [place] [address] Phone Care Team Providers Care Bottle Label Inspector Name Role Phone Phan Garvin MD Primary Care Provider [phone] Phan Garvin MD Unavailable [phone] Encounter Details Date Type Department Care Team (Late st Contact Info) Description 03/15/2023 Telephone [facility] Obstetrics and Gynecology [address] [facility] 7[address] [place] [address] Maria Esther Brwon, RN Social History Tobacco Use Types Packs/Day Years Used Date Smoking Tobacco: Never Alcohol Use Standard Drinks/Week Comments Yes 0 (1 standard drink = 0.6 oz pur e alcohol) Personal Safety Answer Date Recorded Getting School Help Needed Not on file 02/19 Comments No Sex and Gender Information Value Date Recorded Sex Assigned at Not on file Legal Sex Female 7:11 PM CLOTH BEAMER Gender Identity Not on file Sexual Orientation Not on file 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 Cardiac Clearance has been received and scanned into media tab. Surgery scheduled 04/11/23. Patient c/o UTI symptoms and advised to go to urgentcare in [place]. H BEAMER * Telephone Encounter - Maria Esther Brown RN - 03/15/2023 10:21 AM CLOTH BEAMER Received call from patient asking when bladder biopsy & cystoscopy will be rescheduled in OR asdiscussed during her 02/09/23 cystourethroscopy? Last office visit for CISC teaching 03/13/23. UaCX at that time was no growth. UA showing 3+ blood. She is performing CISC teaching 2X daily. Stated that she stopped Eliquis on 03/11/23 and has not visualized blood in urine. Spoke to her charge entry clerk and she is now taking baby ASA daily. Her urine is clear today. She completed her 6 weeks of nitrofurantoin. H BEAMER documented in this encounter Plan of Treatment Not on file documented as of this encounter Visit Diagnoses Not on filedocumented in this encounter Care Teams Bottle Label Inspector Relationship Specialty Start Date End Date Phan Garvin MD PCP - General Family Medicine 09/14/22 Phan Garvin MD Family Medicine 09/14/22 documented as of this encounter
--- OUTSIDE RECORDS SUMMARY | 2024-03-15 10:26 | XMS_ITS | Encounter Summary ---
Author Organization [facility] Healthcare Address [address] [place] [address] Care Team Providers Care Crime Scene Investigator Name Role Phone Phan Garvin MD Primary Care Provider [phone] Phan Garvin MD Unavailable [phone] Reason for Visit * Reason Comments Hospital Follow Up Following up from for A-Fib Atrial Fibrillation Fatigue Encounter Details Date Type Department Care Team (Late st Contact Info) Description 04/18/2023 10:00 AM COMMUNITY ORGANIZER Office Visit [facility] Medical Group Cardiology at [address] [place] [address] Siddharth Jennings MD [address] [facility] [address] [place] [address] Paroxysmal atrial fibrillation (CMS/HCC) (HCC) [...] file Legal Sex Female 7:11 PM COMMUNITY ORGANIZER Gender Identity Not on file Sexual Orientation Not on file 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 Not on file Not on file documented as of this encounter Last Filed Vital Signs Vital Sign Reading Time Taken Comments Blood Pressure 132/76 04/18/2023 10:30 AM COMMUNITY ORGANIZER Pulse 69 04/18/2023 10:30 AM COMMUNITY ORGANIZER Temperature - - Respiratory Rate - - Oxygen Saturation 99% 04/18/2023 10: 30 AM COMMUNITY ORGANIZER Inhaled Oxygen Concentration - - Weight 73.8 kg (162 lb 11.2 oz) 024 10:30 AM COMMUNITY ORGANIZER Height 160 cm (5' 3 ) 04/18/2023 10:30 AM COMMUNITY ORGANIZER Body Mass Index 28.82 04/18/2023 10:30 AM COMMUNITY ORGANIZER documented in this encounter Progress Notes * Siddharth Jennings MD - 04/18/2023 10:00 AM CST [facility] FOLLOW UP 04/18/2023 Maria A Peralta is a 82 y.o. female who presents for follow up of atrial fibrillation. This lizz patient that I saw in consultation at [facility] in February of 2022 when she came [...] been taking metoprolol and was maintaining sinus rhythm. She returns to the office today for scheduled follow-up. I saw her in February at which time she was felt to be stable on metoprolol. She came to the hospital at [place] in the end of February shortly after the office visit with a another symptomatic recurrence of AF. Her medication was advanced to sotalol 80 mg twice daily. Between that discharge and today she did have 1 episode of coughing and palpitations for which she called 911 to her home. She did bring along the ECG that the paramedics performed which did demonstrate atrial fibrillation with a heart rate of 123. While they were there she converted back to sinus rhythm and has not had another recurrence of it since then. Her principal health problem is that she continues to have frequent problems with dysuria and urinary frequency it is very frustrated with this ongoing symptom and is seeing a urologist at [facility] now forevaluation of this. She feels very stressed by this ongoing urinary frequency and sometimes urinaryincontinence. REVIEW OF SYSTEMS General ROS: negative for [...] and rash HOME MEDICATIONS Current Outpatient Medications: acidophilus-pectin, citrus 100 million cell-10 mg capsule, Take 1 capsule by mouth every morning, Disp: , Rfl: ascorbic acid (VITAMIN C) 500 mg tablet,chewable, Take 1 tablet/chew tab (500 mg total) by mouth every morning, Disp: , Rfl: aspirin 81 mg enteric coated tablet, Take 1 tablet (81 mg total) by mouth nightly, Disp: , Rfl: cephalexin (KEFLEX) 500 mg capsule, Take 1 capsule (500 mg total) by mouth 4 (four) times a day for14 days (Patient taking differently: Take 1 capsule (500 mg total) by mouth 2 (two) times a day), Disp: 56 capsule, Rfl: 0 cholecalciferol (VITAMIN D-3) 2000 unit capsule, Take 1 capsule (2,000 Units total) by mouth every morning, Disp: , Rfl: cranberry 400 mg capsule, Take 800 mg by mouth every morning, Disp: , Rfl: diphenhydrAMINE (Sleep Aid, diphenhydrAMINE,) 25 mg capsule, Take 0.5 tablet/capsule (12.5 mg total) by mouth nightly as needed for itching or sleep, Disp: , Rfl: levothyroxine (SYNTHROID) 25 mcg [...] After meals), Disp: 6 tablet, Rfl: 0 sotaloL (BETAPACE) 80 mg tablet, 80 MG ORALLY EVERY 12 HOURS, Disp: 60 tablet, Rfl: 5 vit C,Z-Qa-brtbu-lutein-zeaxan (PreserVision AREDS-2) 250-90-40-1 mg capsule, Take 1 capsule by mouth 2 (two) times a day, Disp: , Rfl: zinc 50 mg tablet, Take 50 mg by mouth every morning, Disp: , Rfl: cefdinir (OMNICEF) 300 mg capsule, Take 1 capsule (300 mg total) by mouth 2 (two) times a day (Patient not taking: Reported on 04/18/2023), Disp: , Rfl: estradioL (ESTRACE) 0.01 % (0.1 mg/gram) vaginal cream, Insert 2 g into the vagina 2 (two) times a week Mon and Fri (Patient not taking: Reported on 04/18/2023), Disp: , Rfl: rosuvastatin (CRESTOR) 10 mg tablet, , Disp: , Rfl: turmeric root extract 500 mg capsule, Take by mouth (Patient not taking: Reported on 01/08/2023), Disp: , Rfl: LABS AND OTHER DIAGNOSTIC TESTS No results found for: CHOL No results found for: HDL No results found for: LDLCALC No results found for: TRIG No results found for: CHOLHDL Lab Results Component Value Date WBC 5.8 04/11/2023 HGB 12.2 04/11/2023 HCT 36.5 04/11/2023 MCV 89.9 04/11/2023 No lab exists for component: LABALBU PHYSICAL EXAM Vitals BP 132/76 (BP Location: Right arm, Patient Position: Sitting) Pulse 69 Ht 160 cm (5' 3 ) Wt 73.8 kg (162 lb 11.2 oz) LMP (LMP Unknown) SpO2 99% BMI 28.82 kg/m?? Physical Examination: General appearance - alert, [...] 80 mg twice daily for atrial fib As stated above she has not anticoagulated because of gross hematuria Follow-up in 3 months Reassure the patient that she may have episodes of recurrent AFib that are self- limited and she does not have to call an ambulance when this happens Siddharth Jennings MD UNITY ORGANIZER documented in this encounter Miscellaneous Notes * Addendum Note - Daniella Sousa MA - 04/18/2023 10:00 AM CSTAddended by: DANIELLA SOUSA on: 04/30/2023 12:50 PM Modules accepted: Orders UNITY ORGANIZER documented in this encounter Plan of Treatment Not on file documented as of this encounter Procedures Procedure Name Priority Date/Time Associated Diagnosis Comments ECG 12-LEAD Routine 04/18/2023 Paroxysmal atrial fibrillation (CMS/HCC) (HCC) documented in this encounter Results * ECG 12 lead (04/18/2023) us Siddharth Jennings MD ECG ORDERABLES Final Re sult documented in this encounter Visit Diagnoses Diagnosis Paroxysmal atrial fibrillation (CMS/HCC) (HCC)- Primary Atrial fibrillation documented in this encounter Historical Medications * This list may reflect changes made after this encounter. magnesium gluconate 200 mg tabletIndications :hypomagnesemia 1 tablet (200 mg total) 11/27/2023 added in this encounter Care Teams Crime Scene Investigator Relationship Specialty Start Date End Date Phan Garvin MD PCP - General Family Medicine 09/14/22 Phan Garvin MD Family Medicine 09/14/22 documented as of this encounter
--- OUTSIDE RECORDS SUMMARY | 2024-03-15 10:26 | XMS_ITS | Encounter Summary ---
Author Organization [facility] Address [address] [place] [address] Phone Care Team Providers Care Radio Repairman Name Role Phone Phan Garvin MD Primary Care Provider [phone] Phan Garvin MD Unavailable [phone] Encounter Details Date Type Department Care Team (Latest Contact Info) Description 03/13/2023 11:00 AM BEATER ENGINEER Procedure visit [facility] Obstetrics and Gynecology 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 She was then instructed to wash her hands with soap and water for 20 seconds. The skin around the patient's meatus was cleansed with an antiseptic towellette. The patient was then instructed to pick up man the sterile catheter and use sterile lubricant on the tip. The patient was able to successfully demonstrate self catheterization with urine return. Supplies and written instructions were sent home with the patient. The patient was instructed to catheterize 3 times per day for an indefinite period of time due to incomplete bladder emptying. Time spent with patient: 30 minutes ER ENGINEER documented in this encounter Plan of Treatment Not on file documented as of this encounter Results * (ABNORMAL) Urinalysis reflex to microscopic and culture Urine, in and out catheter (03/13/2023 12:48 PM BEATER ENGINEER) Color, ur Yellow Yellow [facility] Clarity, ur Cloudy(A) Clear [facility] Specific gravity, ur 1.019 1.003 - 1.030 [facility] pH, urine 5.5 [facility] Comment: Interpretive Data ? Urine pH is affected by diet, medications, systemic acid-base disturbances, and renal tubular function. ??pH may affect urinary stone formation. ??For example, urine pH below 6.0 may help reduce the tendency for calcium phosphate stones and pH greater than 6.0 may reduce the tendency for uric acid stone formation. Source: [facility] [employer] Current Interpretive Data was last revised on 2017 Protein, ur ql 1+(A) Negative [facility] Glucose, ur ql Negative Negative [facility] Ketones, ur Negative Negative [facility] Bilirubin, ur Negative Negative [facility] Blood, ur 3+(A) Negative [facility] Urobilinogen, ur <2.0 <2.0 mg/dL [facility] Nitrite, ur Negative Negative [facility] Leukocyte esterase, ur 2+(A) Negative [facility] UA reflex comment Reflex to microscopic UA will be performed. [facility] Urine, in and out catheter 03/13/2023 12:48 PM BEATER ENGINEER 03/13/2023 3:40 PM BEATER ENGINEER us Poncho Melgar MD LAB MICROBIOLOGY - GENERAL ORDERABLES Final Result [facility] [place] [address] documented in this encounter Visit Diagnoses Diagnosis Recurrent UTI- Primary Urinary tract infection, site not specified Lesion of bladder Unspecified disorder of bladder documented in this encounter Care Teams Radio Repairman Relationship Specialty Start Date End Date Phan Garvin MD PCP - General Family Medicine 09/14/22 Phan Garvin MD Family Medicine 09/14/22 documented as of this encounter
--- OUTSIDE RECORDS SUMMARY | 2024-03-15 10:26 | XMS_ITS | Encounter Summary ---
Author Organization [facility] Address [address] [place] [address] Phone Care Team Providers Care Professor Of Music Name Role Phone Phan Garvin MD Primary Care Provider [phone] Phan Garvin MD Unavailable [phone] Encounter Details Date Type Department Care Team (Late st Contact Info) Description 04/14/2023 Telephone [facility] Obstetrics and Gynecology [address] [facility] [address] [place] [address] Karla Lorenzo MD [address] [facility] [address] [place] [address] Social History Tobacco Use Types Packs/Day Years [...] on file Legal Sex Female 7:11 PM TELEVISION PRODUCTION ASSISTANT Gender Identity Not on file Sexual Orientation Not on file 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 Patient will call and schedule appt. VISION PRODUCTION ASSISTANT * Telephone Encounter - Maria Esther Brown RN - 04/16/2023 9:41 AM CST Call received from [facility] 6 day cystoscopy w/biopsies & fulguration. Patient spoke with Dr. Lorenzo this weekend regarding cough. Patient reports that her cough is much better. C/o sinus issues. She is asking if ok to see chiropractor? Her next MD appt is with tassel clipper on 04/18/23. VISION PRODUCTION ASSISTANT * Telephone Encounter - Karla Lorenzo MD - 04/14/2023 11:43 AM TELEVISION PRODUCTION ASSISTANT She calls in today to ask about the Keflex dosing and continued incontinence. Patient called through exchange to report a significant coughing episode that started last evening (04/13) which resulted in a call to 911 and the medic team arrived. She was stable. She was tachycardic at that time. They offered to take her to the ED but as she was stable and her coughing was improving, she declined. Themedic team questioned the dosing of the Keflex 500mg 4 times daily and thought that may be too muchand could have contributed to the coughing episode. She reports she does have nasal drainage that is most troublesome when laying on her back and can lead to a cough. She also reports she continues to have significant incontinence, more than usual, since the procedure - she also notified nurse Mayo about this on 04/13 via phone. When we talked on the phone, she currently was in the car heading to a hair appointment and did have a coughing spell on the phone. I advised that any medication may produce a side effect; however her dosing is within the range utilized for UTI. I can't say with certainty that the Keflex did not cause the coughing spell although I think it is unlikely the Keflex provoked the cough. I was unable to provide a reason for the coughing spell and counseled her that if she is concerned they are linked, she can decrease her antibiotic to two times daily and see if her symptoms of coughing improve. Regarding her incontinence, counseled patient it may be secondary to irritability of the bladder after the procedure and could continue to improve over the next few days - a week. I advised that we would have our nursing team reach out to her on Sunday morning to check in on her and to call back ifshe has further concerns/questions. VISION PRODUCTION ASSISTANT documented in this encounter Plan of Treatment Not on file documented as of this encounter Visit Diagnoses Not on filedocumented in this encounter Care Teams Professor Of Music Relationship Specialty Start Date End Date Phan Garvin MD PCP - General Family Medicine 09/14/22 Phan Garvin MD Family Medicine 09/14/22 documented as of this encounter
--- OUTSIDE RECORDS SUMMARY | 2024-03-15 10:26 | XMS_ITS | Encounter Summary ---
Author Organization [facility] Address [address] [place] [address] Phone Care Team Providers Care Parachute Panel Joiner Name Role Phone Phan Garvin MD Primary Care Provider [phone] Phan Garvin MD Unavailable [phone] Encounter Details Date Type Department Care Team (Late st Contact Info) Description 03/13/2023 Telephone [facility] Obstetrics and Gynecology [address] [facility] 7th [address] [place] [address] Debbie Lei, JOHN Social History Tobacco Use Types Packs/Day Years Used Date Smoking Tobacco: Never Alcohol Use Standard Drinks/Week Comments Yes 0 (1 standard drink = 0.6 oz pur e alcohol) Personal Safety Answer Date Recorded Getting School Help Needed Not on file 02/19 Comments No Sex and Gender Information Value Date Recorded Sex Assigned at Not on file Legal Sex Female 7:11 PM DRYWALL APPLICATION SUPERVISOR Gender Identity Not on file Sexual Orientation Not on file 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 She has an appointment today for RN CISC teaching. She had blood in her urine and called her heart doctor per their instruction. She has been taking off of her eliquis. Per her heart doctor she should have an urinalysis done to see if this is indeed blood in her urine. She is also wondering what meds she should or shouldn't take prior to her surgery. She will be in today for [facility] teaching and will discuss her meds at that time. ALL APPLICATION SUPERVISOR documented in this encounter Plan of Treatment Not on file documented as of this encounter Visit Diagnoses Not on filedocumented in this encounter Care Teams Parachute Panel Joiner Relationship Specialty Start Date End Date Phan Garvin MD PCP - General Family Medicine 09/14/22 Phan Garvin MD Family Medicine 09/14/22 documented as of this encounter
--- OUTSIDE RECORDS SUMMARY | 2024-03-15 10:26 | XMS_ITS | Encounter Summary ---
Author Organization [facility] Address [address] [place] [address] Phone Care Team Providers Care Cross Country/Track And Field Coach Name Role Phone Phan Garvin MD Primary Care Provider [phone] Phan Garvin MD Unavailable [phone] Reason for Referral * Diagnostic Imaging (Routine) - Closed Specialty Diagnoses / Procedures Referred By Contac t Referred To Contact Diagnoses Pelvic mass Procedures US Transvaginal Poncho Melgar MD [address] [place] [address] Phone: tel: fax: [facility] (All Locations) Referral ID Status Reason Start Date Expiration Date Visits Re quested Visits Authorized [id number] Closed 04/12/2023 05/11/2024 1 1 ULTING MARINE ENGINEER Reason for Visit * Reason Onset Date Comments Post-Op Call 04/12/2023 Encounter Details Date Type Department Care Team (Late st Contact Info) Description 04/12/2023 Telephone [facility] Obstetrics and Gynecology 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 Melgar Support person/caregiver: daughter Home Health Referral: No Pain Management: Level of discomfort: denies pain and not taking any pain medication Current Medication Being Used: Acetaminophen 500 mg prn on hand but has not needed Intervention: Call if having pain control issues Nutrition/Hydration: Fluid Intake: good Food Intake: tolerating regular diet Intervention: advanced as tolerated Surgical Wound: Type: cystoscopy Status: intact, Using vaginal estrogen: Yes Frequency: twice per week Intervention: Call with any signs/sx's of infection, and or heavy vaginal bleeding Vaginal Discharge: No discharge Vital Signs (if taken at home/home health): The patient is experiencing no problems and denies fevers, chills, lightheadedness, dizziness, palpitations Intervention:Call if any problems occur Bowels: Bowels: 04/11/23 Regimen: Miralax, if needed Intervention: Take Miralax daily., Take Miralax BID until bowels move once/day., and Can add MoM ifno BM. Bladder: Bladder: Feels like emptying bladder well. Bladder medication: Keflex, Duration 2 weeks Intervention: void every 2 hours and Call with s/s of UTI and/or feelings of incomplete bladder emptying Activity Level: Activity Level: Ambulating well, reviewed instructions and patient is following Intervention: Advance as tolerated Teaching: The following were reviewed: pain management,, nutrition and fluid management,, wound care,, bowel regmen,, activity level,, and post op restrictions Additional Comments: Patient voices good understanding of teaching. Needs [facility] appointment: No Post-Op Visit Date: 06/05/23 Transvaginal ultrasound: 04/20/23 @ 10 am Renal ultrasound: 05/07/23 @ 11:15 ULTING MARINE ENGINEER * Telephone Encounter - Maria Esther Brown RN - 04/12/2023 12:01 PM CONSULTING MARINE ENGINEER ----- Message from Tyler Mcelroy MD sent at 04/11/2023 3:46 PM CONSULTING MARINE ENGINEER ----- Regarding: postop pt Hi everyone, We are discharging Ms. Peralta today, 04/11/23. Surgeon: Talia Procedure date: 04/11/23 Procedure: Cystoscopy w/ biopsies and fulguration Complications: None Voiding plan: Voiding spontaneously Medications: APAP, keflex x 2 weeks #Please also get patient scheduled for transvaginal ultrasound for incidental possible pelvic mass finding on exam under anesthesia. Thank you! Follow-up appointment: 06/05/23 Thank you so much, Tyler Mcelroy MD ULTING MARINE ENGINEER documented in this encounter Plan of Treatment Not on file documented as of this encounter Results * US Transvaginal (05/10/2023 9:39 AM CONSULTING MARINE ENGINEER) Cul de Sac No free fluid visualized VIEWPOINT Anatomical Region Laterality Modality Pelvis N/A Ultrasound 05/10/2023 9:40 AM CONSULTING MARINE ENGINEER Impressions 05/10/2023 3:29 PM CONSULTING MARINE ENGINEER 1- Surgically absent uterus.2- Non-visualization of either [...] of bladder Unspecified disorder of bladder Pelvic mass Abdominal or pelvic swelling, mass or lump, unspecified site Pelvic mass Abdominal or pelvic swelling, mass or lump, unspecified site documented in this encounter Care Teams Cross Country/Track And Field Coach Relationship Specialty Start Date End Date Phan Garvin MD PCP - General Family Medicine 09/14/22 Phan Garvin MD Family Medicine 09/14/22 documented as of this encounter
--- OUTSIDE RECORDS SUMMARY | 2024-03-15 10:26 | XMS_ITS | Encounter Summary ---
Author Organization [facility] Address [address] [place] [address] Phone Care Team Providers Care Petroleum Sampler Name Role Phone Phan Garvin MD Primary Care Provider [phone] Phan Garvin MD Unavailable [phone] Encounter Details Date Type Department Care Team (Late st Contact Info) Description 03/20/2023 Telephone [facility] Obstetrics and Gynecology [address] [facility] [address] 7th [address] [place] [address] Maria Esther Brown, RN Social [...] on file Legal Sex Female 7:11 PM MANUFACTURING MAINTENANCE TECHNICIAN Gender Identity Not on file Sexual Orientation Not on file 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 Patient states that she has not used the VET or coconut oil for the last 3 weeks. Advised patient that VET twice weekly is part of her UTI prevention. She will begin using estrace again. FACTURING MAINTENANCE TECHNICIAN documented in this encounter Plan of Treatment Not on file documented as of this encounter Visit Diagnoses Not on filedocumented in this encounter Care Teams Petroleum Sampler Relationship Specialty Start Date End Date Phan Garvin MD PCP - General Family Medicine 09/14/22 Phan Garvin MD Family Medicine 09/14/22 documented as of this encounter
--- OUTSIDE RECORDS SUMMARY | 2024-03-15 10:26 | XMS_ITS | Encounter Summary ---
Author Organization [facility] Address [address] [place] [address] Phone Care Team Providers Care Sales Vendor Name Role Phone Phan Garvin MD Primary Care Provider [phone] Phan Garvin MD Unavailable [phone] Encounter Details Date Type Department Care Team (Late st Contact Info) Description 03/06/2023 Telephone [facility] Obstetrics and Gynecology [address] [facility] 7th [address] [place] [address] Araceli Anderson RN Social History [...] on file Legal Sex Female 7:[address] Gender Identity Not on file Sexual Orientation Not on file 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 She reports her heart ratewas in the low 200s. She also reports they tested her urine for a UTI and it was positive. She states she was started on Macobid. She was going to have a SHANNAN done on 03/02. She states she is now on Sotalol and Eliquis for her AFIB. The soonest she could get scheduled with her drum drier was 04/18/23. She is trying to find a ride for her appointment on 03/13 for [facility] teaching. She had [facility] fax her records to us. She also is asking for a letter to be send to [facility] to excuse her from Jury duty. MANAGER documented in this encounter Plan of Treatment Not on file documented as of this encounter Visit Diagnoses Not on filedocumented in this encounter Care Teams Sales Vendor Relationship Specialty Start Date End Date Phan Garvin MD PCP - General Family Medicine 09/14/22 Phan Garvin MD Family Medicine 09/14/22 documented as of this encounter
--- OUTSIDE RECORDS SUMMARY | 2024-03-15 10:26 | XMS_ITS | Encounter Summary ---
Author Organization [facility] Address [address] [place] [address] Care Team Providers Care Gasfitter Name Role Phone Phan Garvin MD Primary Care Provider [phone] Phan Garvin MD Unavailable [phone] Encounter Details Date Type Department Care Team (Late st Contact Info) Description 03/13/2023 Telephone [facility] Medical Group Cardiology [address] [place] [address] Billy Becerra MD [address] [id number] Social History Tobacco Use Types Packs/Day Years Used Date Smoking Tobacco: Never Alcohol Use Standard Drinks/Week Comments Yes 0 (1 standard drink = 0.6 oz pur e alcohol) Personal Safety Answer Date Recorded Getting School Help Needed Not on file 02/19 Comments No Sex and Gender Information Value Date Recorded Sex Assigned at Not on file Legal Sex Female 7:11 PM TRIBAL JUDGE Gender Identity Not on file Sexual Orientation Not on file 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 Pt appreciated the callback. AL JUDGE * Telephone Encounter - Virginia Frias - 03/27/2023 9:57 AM TRIBAL JUDGE Pt is requesting a call back [place] in regards to the clearance letter being faxed to Dr. Melgar. Pt states she's been dealing with this matter since February of 2023 Pt cb [phone] AL JUDGE * Telephone Encounter - Albina Figueroa RN - 03/23/2023 9:03 AM CST Clearance printed and on CT desk for her review AL JUDGE * Telephone Encounter - Tami Aaron - 03/23/2023 8:[address] Melgar sent a cardiac clearance request to our office on 03/21 for MJF to sign. It is under the letters tab. Please complete and send back to Dr. Melgar office as soon as you can per pt request. Thank you. Contact: AL JUDGE * Telephone Encounter - Carol Darnell RN - 03/15/2023 8:48 AM TRIBAL JUDGE Spoke with pt and re-reviewed message from CT and she verbalized understanding. She said she LM at surgeon's office with our fax number yesterday. AL JUDGE * Telephone Encounter - Lynnette Amin - 03/15/2023 8:12 AM CST Pt returned call for Carol with follow up questions. Pt is wanting to know if she should take baby aspirin in the morning and night or just at night. Also reports she has had no eliquis for 4 days and since has no blood in urine since. Pt states her previously scheduled Biopsy was canceled due to blood in urine and cardiac concerns. Pt states neurologist suggested having a cardiac clearance sent if or when AD feels it is appropriate to go forward with procedure. Contact:[phone] AL JUDGE * Telephone Encounter - Carlo Darnell RN - 03/14/2023 9:24 AM TRIBAL JUDGE LM on VM reviewing message from CT and advised pt to callback with any questions or concerns. Informed her that if physician performing biopsy needs a written clearanc we would be happy to help and they can fax request to nurse fax at [phone]. AL JUDGE * Telephone Encounter - Payal Carrasquillo NP - 03/13/2023 5:07 PM TRIBAL JUDGE I reviewed Dr. Jennings's last office note [...] of sotalol when she has the biopsy. AL JUDGE * Telephone Encounter - Carol Darnell RN - 03/13/2023 4:10 PM TRIBAL JUDGE Spoke with pt, she has been having some blood in her urine for a little while now but it worsened on Sunday so pt stopped her eliquis on her own. Pt has been on predatory animal exterminator antibiotics 8-10 weeks worthfor another UTI. Pt called the exchange and spoke with AD last evening in regards to holding her eliquis-he advised her to hold the eliquis for now and was under the impression that pt was supposed to see her urologist today and have a bladder biopsy on Sunday. AD advised pt to callback after her appt with urology today to determine what to do with eliquis going forward. Spoke with pt, she didn't see urology today but saw an RN to be instructed on how to straight cath herself TID and was also told that her biopsy would be cancelled due to her needing cardiac clearance first. Pt has continued to hold eliquis and said she has been on it in the past and was taken off d/t gross hematuria andreplaced with asa but recently within the last month or so was put back on it after a hospitalization with afib. Pt is now asking what she do in regards to her eliquis and if MJF would clear her for bladder biopsy? We discussed that [place] few week and that I would discuss with CT in his absence and get back with her. Will forward to CT. Please advise, thank you! AL JUDGE * Telephone Encounter - Lynnette Amin - 03/13/2023 3:41 PM CST Pt returned call for Carol. Contact:[phone] AL JUDGE * Telephone Encounter - Carol Darnell RN - 03/13/2023 3:27 PM TRIBAL JUDGE LM on requesting callback to discuss-I need to speak with pt when she calls back. AL JUDGE * Telephone Encounter - Brielle Alba - 03/13/2023 2:53 PM CST Pt is stating that Dr. Melgar is needing to get cardiac clearance in order to the bladder Biopsy. Pt is wanting to see if she should be taking a baby aspirin since she can't take Eliquis. Our number comes up as no number and sometimes doesn't ring. She asked to please leave details on her voicemail. AL JUDGE * Telephone Encounter - Carol Darnell RN - 03/13/2023 2:18 PM TRIBAL JUDGE LM on VM requesting callback. AL JUDGE * Telephone Encounter - Lynnette Amin - 03/13/2023 1:55 PM CST Pt states upcoming biopsy was canceled. Pt requesting a call back to discuss id she should still continue to hold Eliquis or not. Contact:[phone] AL JUDGE * Telephone Encounter - Carol Darnell RN - 03/13/2023 10:25 AM TRIBAL JUDGE Pt called and spoke with AD after hours in regards to blood in her urine and concerns about her eliquis. Pt told AD that she has had a UTI and has been bleeding for the last month and she has f/u with urology today and a bladder biopsy Sunday. AD advised her to hold eliquis temporarily, see urology for their recommendations and to call us afterwards for our recommendations regarding eliquis after her biopsy. AD told pt that the eliquis will likely not be held predatory animal exterminator and is not the cause of her bleeding but we need to find the source and then we can give recommendations going forward. AL JUDGE documented in this encounter Plan of Treatment Not on file documented as of this encounter Visit Diagnoses Not on filedocumented in this encounter Care Teams Gasfitter Relationship Specialty Start Date End Date Phan Garvin MD PCP - General Family Medicine 09/14/22 Phan Garvin MD Family Medicine 09/14/22 documented as of this encounter
--- OUTSIDE RECORDS SUMMARY | 2024-03-15 10:26 | XMS_ITS | Encounter Summary ---
Author Organization [facility] Healthcare Address [address] [place] [address] Care Team Providers Care Product Assurance Engineer Name Role Phone Phan Garvin MD Primary Care Provider [phone] Phan Garvin MD Unavailable [phone] Reason for Visit * Auth/Cert (Routine) Specialty Diagnoses / Procedures Referred By Contashley t Referred To Contact Diagnoses Complicated UTI (urinary tract infection) History of pelvic surgery Recurrent UTI Lesion of bladder Complicated UTI (urinary tract infection) [N39.0] History of pelvic surgery [Z98.890] Recurrent UTI [N39.0] Lesion of bladder [N32.9] Procedures AK CYSTOURETHROSCOPY WITH BIOPSY CYSTOSCOPY BIOPSY BLADDER - CYSTOSCOPY and fulguration Referral ID Status Reason Start Date Expiration Date Visits Re quested Visits Authorized [id number] 1 1 Encounter Details Date Type Department Care Team (Late st Contact Info) Description 04/11/2023 3:10 PM REGISTERED PUBLIC HEALTH NURSE - 04/11/2023 4:55 PM REGISTERED PUBLIC HEALTH NURSE Surgery [facility] Operating Room [address] [place] [id number] Poncho Melgar MD [address] [facility] [address] [place] [address] CYSTOSCOPY Surgery Details Date/Time Status Location OR Service Patient Class Case Cl ass Case Type Trauma Case? 04/11/2023 3:10 PM Posted [facility] OR POD 1 [id number] Obstetrics / Gynecology Outpatient Elective Panel 1 Procedure LRB Anes Op Region Wound Class Comments CYSTOSCOPY N/A General Urethra Class II - Issa an Contaminated With bladder biopsy and fulguration BIOPSY BLADDER x5 - FULGURATION AND MANUAL IRRIGATION OF THE BLADDER N/A General Urethra Class II - Clean Contaminated Surgeon Surgeon Role Service Panel Poncho Melgar MD Primary Obstetrics / Gynec ology 1 Tyler Mcelroy MD Resident - Assisting Obstetr ics / Gynecology 1 Case Notes 03/07@1300- Patient in AFIB ??will reschedule later per Gissell via case msg.EF documented in this encounter Social History Tobacco [...] on file Legal Sex Female 7:11 PM REGISTERED PUBLIC HEALTH NURSE Gender Identity Not on file Sexual Orientation Not on file 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 Not on file Not on file Not on file documented as of this encounter Last Filed Vital Signs Vital Sign Reading Time Taken Comments Blood Pressure 152/84 04/11/2023 4:40 PM REGISTERED PUBLIC HEALTH NURSE Pulse 60 04/11/2023 4:40 PM REGISTERED PUBLIC HEALTH NURSE Temperature 36.4 ??C (97.5 ??F) 04/11/2023 3:45 PM CS T Respiratory Rate 16 04/11/2023 4:40 PM REGISTERED PUBLIC HEALTH NURSE Oxygen Saturation 98% 04/11/2023 4:40 PM REGISTERED PUBLIC HEALTH NURSE Inhaled Oxygen Concentration - - Weight 75.3 kg (166 lb) 03/29/2023 2:10 PM REGISTERED PUBLIC HEALTH NURSE Height 160 cm (5' 3 ) 03/29/2023 2:10 PM REGISTERED PUBLIC HEALTH NURSE Body Mass Index 29.41 03/29/2023 2:10 PM REGISTERED PUBLIC HEALTH NURSE documented in this encounter Discharge Instructions * Discharge Instructions* Tyler Mcelroy MD - 04/11/2023 2:21 PM REGISTERED PUBLIC HEALTH NURSE Urogynecology Post-op Instructions and Recovery Please take [...] of the doctors from our office is oracle fusion middleware architect 24 hours a day, seven days a [...] pelvic ultrasound to ensure this is normal. 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 Butt), and remembers having UDS [...] Past Medical History: Diagnosis Date Atrial fibrillation ([facility]) ([facility]) 03/01/2022 Hypercholesteremia Osteoporosis Recurrent UTI Surgical History [...] Take After meals 6 tablet 0 vit C,I-Jq-ufhrh-lutein-zeaxan (PreserVision AREDS-2) 250-90-40-1 mg capsule Take by [...] masses, no tenderness. Perineal Sensation: normal. Anal [place]: present. Recent Results ASSESSMENT: Maria A Jean [...] was signed. She is to meet with [facility] for anesthesia counseling and consent. 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 Butt), and remembers having UDS [...] Past Medical History: Diagnosis Date Atrial fibrillation ([facility]) ([facility]) 03/01/2022 Hypercholesteremia Osteoporosis Recurrent UTI Surgical History [...] Take After meals 6 tablet 0 vit C,W-Rl-hjcyw-lutein-zeaxan (PreserVision AREDS-2) 250-90-40-1 mg capsule Take by [...] masses, no tenderness. Perineal Sensation: normal. Anal [place]: present. Recent Results ASSESSMENT: Maria A Jean [...] was signed. She is to meet with [facility] for anesthesia counseling and consent. STERED PUBLIC HEALTH NURSE documented in this encounter Miscellaneous Notes * Op Note - Poncho Melgar MD - 04/11/2023 3:10 PM CST SURGEON Poncho Melgar MD. KENO WRITER/RUNNER Tyler Mcelroy MD. PREOPERATIVE DIAGNOSIS Refractory recurrent urinary tract infections. Prior office cystoscopy due to poor visualization due to desquamation. Erythematous patches, can not rule out malignancy/dysplasia Neurogenic bladder POSTOPERATIVE DIAGNOSIS Same PROCEDURE Operative cystoscopy with biopsy x 5 sites and fulguration of biopsy sites Manual bladder irrigation with the Ellik foreclosure specialist ANESTHESIA LMA genearl . IV FLUID 700 [...] was irrigated several times including with an Ellik bladder foreclosure specialist. The bladder was thoroughly surveyed with attempts [...] was present and performed the entire procedure. STERED PUBLIC HEALTH NURSE * Pre-Procedure Instructions - Simone Millard NP - 04/05/2023 8:22 AM CST [facility] CPAP Clinic Location: [facility] The night before your surgery: * Do [...] Don't take on day of surgery vit C,Y-Ue-thoct-lutein-zeaxan (PreserVision AREDS-2) 250-90-40-1 mg capsule Stop taking [...] with COVID-19. You test positive for COVID-19. STERED PUBLIC HEALTH NURSE * Pre-Procedure Instructions - Lisha Dennis RN - 03/29/2023 2:16 PM CST CENTER FOR [...] remove nail coverings, artificial nails and nail uruguayan prior to the day of surgery. You should leave your valuables and any jewelry at home. No metal or piercings are allowed in the operating room. You should bring your insurance card, a photo ID (example: Scale Assembly Set Up Worker's License) and a method of payment for [...] Chart. If you are having surgery at [facility], please arrive on the day of surgery [...] Pathway to Excellent Care by the followinglink: [email or web address] How To Prepare Your Skin For Surgery [...] Remove nail coverings, artificial nails and nail uruguayan. Place clean linens on your bed the [...] questions, please call the CPAP Staff at [phone], Sunday-Sunday 8am-4:30pm. All patients should read the below section: COVID 19 Updates & Visitor Policy: Please access [email or web address] for the most updated information. Information on [facility] & the Orthopedic Center: Please view [email or web address] (Patient & Visitor Information) for additional details regarding Advanced Directive forms, AWARE, directions, parking information, lodging, Internet access, dining and more. For MyChart information, to activate account or password recovery, please go to [email or web address] or call [phone] (toll-free: [phone]), Sun- Sunday 8am-5pm. Information for Suicide Prevention: National Suicide Prevention Lifeline (1-577- 334-TJSN (6589) orcall or text 098. Chat resources: Goshi.[email or web address]. Surgery Times: For patients having surgery @ [facility] or [facility] ([facility]), if your surgeon's office has not notified you of your surgery time by NOON THE BUSINESS DAY BEFORE your surgery, please call [phone] and ask for your surgeon's office Dr Melgar. The [facility] for Preoperative Assessment & Planning (CPAP) does not provide arrival times for the day of surgery or provide the duration of surgery. This information is provided by your surgeon'soffice or by the center where you are having surgery. We appreciate your understanding. 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 Technician Needs Communication Needs: Glasses, Hearing aide(s) Assistive Devices/DME: Eyeglasses Hearing - Right Ear: Hearing aid Hearing - Left Ear: Hearing aid Discharge Planning Type of Residence: Private residence Living Arrangements: Alone Support Systems: Children, Family members, Friends/neighbors Patient expects to be discharged to:: Private residence PROGRAM CHECKER NO STERED PUBLIC HEALTH NURSE documented in this encounter Plan of Treatment Not on file documented as of this encounter Procedures Procedure Name Priority Date/Time Associated Diagnosis Comments CYTOLOGY Routine 04/11/2023 3:45 PM REGISTERED PUBLIC HEALTH NURSE Complicated UTI (urinary tract infection) History of pelvic surgery Recurrent UTI Lesion of bladder SURGICAL PATHOLOGY Routine 04/11/2023 3: 19 PM REGISTERED PUBLIC HEALTH NURSE Complicated UTI (urinary tract infection) History of pelvic surgery Recurrent UTI Lesion of bladder URINE CULTURE Routine 04/11/2023 3:02 PM REGISTERED PUBLIC HEALTH NURSE BIOPSY BLADDER - CYSTOSCOPY 04/11/2023 2:36 PM REGISTERED PUBLIC HEALTH NURSE Complicated UTI (urinary tract infection) History of pelvic surgery Recurrent UTI Lesion of bladder Case Notes 03/07@1300- Patient in AFIB ??will reschedule later per Gissell via case msg.EF CYSTOSCOPY 04/11/2023 2:36 PM REGISTERED PUBLIC HEALTH NURSE Complicated UTI (urinary tract infection) History of pelvic surgery Recurrent UTI Lesion of bladder Case Notes 03/07@1300- Patient in AFIB ??will reschedule later per Gissell via case msg.EF DIFFERENTIAL AUTO STAT 04/11/2023 2:0 0 PM REGISTERED PUBLIC HEALTH NURSE CBC WITH AUTO DIFFERENTIAL STAT 04/11/2023 2:00 PM REGISTERED PUBLIC HEALTH NURSE TYPE AND SCREEN STAT 04/11/2023 2:00 PM REGISTERED PUBLIC HEALTH NURSE documented in this encounter Results * Cytology (04/11/2023 3:45 PM REGISTERED PUBLIC HEALTH NURSE) Fluid (Urine, catherized (Cytology)) 04/11/2023 3:45 PM REGISTERED PUBLIC HEALTH NURSE Narrative PATHOLOGY [facility] - 04/13/2023 3:32 PM REGISTERED PUBLIC HEALTH NURSE EPIC results best viewed via link to PDF [facility] [place] [address] Note to Patients: This report may contain [...] Gender: ??F : ??1940 (Age: 82) Address: ??[address] [place] [address] ??[id number] Hospital #: ??[id number] Taken:04/11/2023 Received:04/11/2023 Reported: 04/13/2023 Patient Type: [facility] SDS ?? Service: Surgery Location: [facility] OR POD1 Physician(s): ??Poncho Melgar M.D. Phan Paula Youngblood M.D. Tyler Mcelroy, FINAL DIAGNOSIS A. ??Urine, bladder, voided: ? - Negative for high-grade urothelial carcinoma js2/04/13/2023 09:42 By this signature, I attest that the above diagnosis is based upon my personal examination of the slides(and/or other material indicated in the diagnosis). Anam Ruiz, DO Report Electronically Reviewed and Signed Out By ??Anam Parveen Ruiz DO 04/13/2023 15:32:54 Elroy WKenny Hughes MS, CT(ASCP)PA Gross Description A. ??Bladder [...] Surgical Pathology and Flow Cytometry Departments at [facility] as part of an ongoing quality control analyst program and in compliance with federally mandated [...] Surgical Pathology and Flow Cytometry Departments of [facility]. ??It has not been cleared or approved by the U. S. Food and Drug Administration. us Poncho Melgar MD LAB CYTOLOGY ORDERABLES Fin al Result PATHOLOGY [facility] [address] Floor [place], [place] [phone] * Surgical pathology (04/11/2023 3:19 PM REGISTERED PUBLIC HEALTH NURSE) Tissue (Bladder, biopsy) 04/11/2023 3:19 PM REGISTERED PUBLIC HEALTH NURSE Narrative PATHOLOGY [facility] - 04/12/2023 2:09 PM REGISTERED PUBLIC HEALTH NURSE EPIC results best viewed via link to PDF [facility] [place] [address] Note to Patients: This report may contain [...] Gender: ??F : ??1940 (Age: 82) Address: ??[address] [place] [address] ??[id number] Hospital #: ??[id number] Taken:04/11/2023 Received:04/11/2023 Reported: 04/12/2023 Patient Type: [facility] SDS ?? Service: Surgery Location: [facility] OR POD1 Physician(s): ??Poncho Melgar M.D. Diagnosis: [...] Surgical Pathology and Flow Cytometry Departments at [facility] as part of an ongoing quality control analyst program and in compliance with federally mandated [...] Surgical Pathology and Flow Cytometry Departments of [facility]. ??It has not been cleared or approved by the U. S. Food and Drug Administration. IMAGES AND SCANNED DOCUMENTS, IF INCLUDED, ONLY VIEWABLE IN PDF VERSION OF REPORT us Poncho Melgar MD LAB PATHOLOGY ORDERABLES Fi nal Result PATHOLOGY [facility] 3rd Floor [place], [place] [phone] * Urine culture Urine, bladder (04/11/2023 3:02 PM REGISTERED PUBLIC HEALTH NURSE) Report Final Report: Less than 100,000 colonies/mL (clinically insignificant growth based on current clinical standards) [facility] Organism (CLINICALLY INSIGNIFICANT GROWTH [facility] Urine, bladder 04/11/2023 3: 02 PM REGISTERED PUBLIC HEALTH NURSE 04/11/2023 4:52 PM REGISTERED PUBLIC HEALTH NURSE [facility]ative [facility] - 04/12/2023 7:01 PM REGISTERED PUBLIC HEALTH NURSE Bladder Urine for culture Indications for Culture:->Urology patient Specimen received in a sterile container. Specimen collected in the operating room. Testing performed by [facility] Microbiology Laboratory ([phone]) us Poncho Melgar MD LAB MICROBIOLOGY - GENERAL ORDERABLES Final Result [facility] Department [place] [address] * Differential, auto (04/11/2023 2:00 PM REGISTERED PUBLIC HEALTH NURSE) Neutrophil abs 2.5 1.5 - 6.5 K/cumm [facility] Imm gran abs 0.0 0.0 - 0.1 K/cumm [facility] Lymphocyte abs 2.5 0.8 - 3.3 K/cumm [facility] Monocyte abs 0.6 0.2 - 0.8 K/cumm [facility] Eosinophil abs 0.1 0.0 - 0.5 K/cumm [facility] Basophil abs 0.1 0.0 - 0.1 K/cumm [facility] Neutrophil pct 42.8 % [facility] Comment: Interpretive Data Percent cell count reference ranges are not reported, since discordance with absolute values may lead to misinterpretation of CBC data. Current Interpretive Data was last revised on 2017. Imm gran pct 0.3 % [facility] Comment: Interpretive Data Percent cell count reference ranges are not reported, since discordance with absolute values may lead to misinterpretation of CBC data. Current Interpretive Data was last revised on 2017. Lymphocyte pct 43.4 % [facility] Comment: Interpretive Data Percent cell count reference ranges are not reported, since discordance with absolute values may lead to misinterpretation of CBC data. Current Interpretive Data was last revised on 2017. Monocyte pct 10.9 % [facility] Comment: Interpretive Data Percent cell count reference ranges are not reported, since discordance with absolute values may lead to misinterpretation of CBC data. Current Interpretive Data was last revised on 2017. Eosinophil pct 1.7 % [facility] Comment: Interpretive Data Percent cell count reference ranges are not reported, since discordance with absolute values may lead to misinterpretation of CBC data. Current Interpretive Data was last revised on 2017. Basophil pct 0.9 % [facility] Comment: Interpretive Data Percent cell count reference ranges are not reported, since discordance with absolute values may lead to misinterpretation of CBC data. Current Interpretive Data was last revised on 2017. Blood 04/11/2023 2:00 PM REGISTERED PUBLIC HEALTH NURSE 04/11/2023 2:17 PM REGISTERED PUBLIC HEALTH NURSE us Simone Millard NP LAB BLOOD ORDERABLES Final Result [facility] Department [place] [address] * (ABNORMAL) CBC with auto differential (04/11/2023 2:00 PM REGISTERED PUBLIC HEALTH NURSE) WBC 5.8 3.8 - 9.9 K/cumm [facility] Hgb 12.2 11.9 - 15.5 g/dL [facility] Hct 36.5 35.6 - 45.5 % [facility] Plt 335 150 - 400 K/cumm [facility] MPV 12.5(H) 9.1 - 12.3 fL [facility] RBC 4.06 3.90 - 5.20 M/cumm [facility] MCV 89.9 81.3 - 96.4 fL [facility] MCH 30.0 27.1 - 33.3 pg [facility] MCHC 33.4 32.3 - 35.7 g/dL [facility] RDW CV 14.0 11.1 - 14.9 % [facility] RDW SD 46.0 35.7 - 48.1 fL [facility] NRBC abs 0.00 0.00 - 0.01 K/cumm [facility] Blood 04/11/2023 2:00 PM REGISTERED PUBLIC HEALTH NURSE 04/11/2023 2:17 PM REGISTERED PUBLIC HEALTH NURSE Simone Millard NP LAB BLOOD ORDERABLES Final Result Performing Organization Address [facility] Co de Phone Number [facility] Department [place] [address] * Type and screen (04/11/2023 2:00 PM REGISTERED PUBLIC HEALTH NURSE) ABO Rh O Positive Alejandra, indirect Negative [facility] Blood 04/11/2023 2:00 PM REGISTERED PUBLIC HEALTH NURSE 04/11/2023 2:13 PM REGISTERED PUBLIC HEALTH NURSE Narrative [facility] - 04/11/2023 3:41 PM REGISTERED PUBLIC HEALTH NURSE Has the patient had Daratumumab or Isatuximab in the past 6 months?->Unknown Simone Millard NP LAB BLOOD BANK TEST ORDERAB LES Final Result Performing Organization Address [facility] Co de Phone Number [facility] Department [place] [address] documented in this encounter Visit Diagnoses Diagnosis Complicated UTI (urinary tract infection) History of pelvic surgery Recurrent UTI Urinary tract infection, site not specified Lesion of bladder Unspecified disorder of bladder Complicated UTI (urinary tract infection) History of [...] AnalgesiaIndications:Pre-Emp tive Analgesia Given 04/11/2023 1:39 PM REGISTERED PUBLIC HEALTH NURSE 1,000 mg Carrier Fluids for Secondary Infusion [...] more., Indications: PainIndications:Pain Given 04/11/2023 4:00 PM REGISTERED PUBLIC HEALTH NURSE 25 mcg gabapentin (NEURONTIN) capsule 300 mg 300 mg, oral, Once, On Sun04/11/23 at 1345, For 1 dose, Pre-Op, Indications: Pre-Emptive AnalgesiaIndications:Pre-Emp tive Analgesia Given 04/11/2023 1:39 PM REGISTERED PUBLIC HEALTH NURSE 300 mg haloperidol (HALDOL) injection 1 mg 1 mg, intravenous, Once as needed, nausea, vomiting, Starting on Sun04/11/23 at 1540, For 1 dose, Phase I, If nausea/vomiting not relieved by ondansetron within 30 minutes or if ondansetron has been given within the last 6 hours. Given 04/11/2023 4:00 PM REGISTERED PUBLIC HEALTH NURSE 1 mg Lactated Ringer's (LR) infusion 30 mL/hr, intravenous, Continuous, Starting on Sun04/11/23 at 1345, Pre-Op Lactated Ringer's (LR) infusion 30 mL/hr, intravenous, Continuous, Starting on Sun04/11/23 at 1345 Rate/Dose Verify 04/11/2023 2:32 PM REGISTERED PUBLIC HEALTH NURSE 30 mL/hr New Bag 04/11/2023 1:40 PM REGISTERED PUBLIC HEALTH NURSE 30 mL/hr 30 mL/hr Lactated Ringer's (LR) infusion 125 mL/hr, intravenous, Continuous, Starting on Sun04/11/23 at 1345, Pre-Op, May discontinue when discharge criteria met. sodium chloride 0.9% flush 0.5-20 mL 0.5-20 mL, intra-catheter, As needed, line care, Starting on Sun04/11/23 at 1312, Pre-Op, Flush volume based on line type and size. Flush before and after each use. sodium chloride 0.9% irrigation As needed, Starting on Sun04/11/23 at 1455, Intra-Op Given 04/11/2023 3:12 PM REGISTERED PUBLIC HEALTH NURSE 1,000 mL Other (Comment) Given 04/11/2023 2:55 PM REGISTERED PUBLIC HEALTH NURSE 1,000 mL Ot her (Comment) sterile water irrigation As needed, Starting on Sun04/11/23 at 1455, Intra-Op Given 04/11/2023 3:18 PM REGISTERED PUBLIC HEALTH NURSE 3,000 mL Surgical Site Given 04/11/2023 2:55 PM REGISTERED PUBLIC HEALTH NURSE 3,000 mL [place] rgical Site documented in this encounter Discontinued Medications Medication [...] Recently Administered Medications Times are shown in REGISTERED PUBLIC HEALTH NURSE. Scheduled Medication Order 04/09/2023 04/10/2023 04/11/2023 acetaminophen [...] 1340 (New Bag - Prov ider: Rajni Waldrop RN)1432 (Rate/Dose Verify - Provider: Sneha Ramirez CRNA)1530 [...] 0.9% irrigation (CANCELED) As needed, Starting on Sun04/11/23 at 1455, Intra-Op 1455 (Given - Provid er: Poncho Melgar MD - Comment: irrigation on field)1512 (Given - Provider: Poncho Melgar MD - Comment: irrigation on field) sterile water irrigation (CANCELED) As needed, Starting on Sun04/11/23 at 1455, Intra-Op 1455 (Given - Provid er: Poncho Melgar MD - Comment: irrigation hanging)1518 (Given - Provider: Poncho Melgar MD - Comment: irrigation hanging) documented in [...] 1 04/11/2023 Lactated Ringer's (LR) infusion 2 naloxone (NARCAN) 0.4 mg/mL injection 0.04-0.4 mg 1 04/11/2023 ondansetron (ZOFRAN) injection 4 mg 1 04/11 sodium chloride 0.9% flush 0.5-20 mL 1 03/14 Discharge Count Last Ordered Date First Orde red Date DISCHARGE PATIENT 1 04/11/2023 documented in this encounter Care Teams Product Assurance Engineer Relationship Specialty Start Date End Date Phan Garvin MD PCP - General Family Medicine 09/14/22 Phan Garvin MD Family Medicine 09/14/22 documented as of this encounter
--- OUTSIDE RECORDS SUMMARY | 2024-03-15 10:26 | XMS_ITS | Encounter Summary ---
Author Organization [facility] Address [address] [place] [address] Phone Care Team Providers Care Case Management Social Worker Name Role Phone Phan Garvin MD Primary Care Provider [phone] Phan Garvin MD Unavailable [phone] Encounter Details Date Type Department Care Team (Late st Contact Info) Description 04/13/2023 Telephone [facility] Obstetrics and Gynecology [address] [facility] Outpatient Health 7th Floor [address] [place] [address] Maria Esther Brown, RN Social [...] on file Legal Sex Female 7:11 PM ROOF FOREMAN Gender Identity Not on file Sexual Orientation Not on file 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 Melgar's instructions to take keflex 500 mg BID. FOREMAN * Telephone Encounter - Maria Esther Brown RN - 04/13/2023 12:33 PM ROOF FOREMAN Patient called back confused about 3 different antibiotics she has on hand. She was placed on Cefdinir while in [place] and after 3 days changed to Cipro X3 days. Informed to not take these meds. order Keflex X14 days at discharge. She will continue to take this Keflex 4X's day for 14 days. FOREMAN * Telephone Encounter - Maria Esther Brown RN - 04/13/2023 9:10 AM CST PO day 1 c/o increasing incontinence since surgery. Yesterday went through 9 soaked diapers. She isable to urinate & double void. She was performing CISC prior to surgery and stated that it hurts too much to continue. Last UACX 04/11/23 result insignificant growth. Patient will perform timed voids today. Would this be an anticipated symptom following surgery? FOREMAN documented in this encounter Plan of Treatment Not on file documented as of this encounter Visit Diagnoses Not on filedocumented in this encounter Care Teams Case Management Social Worker Relationship Specialty Start Date End Date Phan Garvin MD PCP - General Family Medicine 09/14/22 Phan Garvin MD Family Medicine 09/14/22 documented as of this encounter
--- OUTSIDE RECORDS SUMMARY | 2024-03-15 10:26 | XMS_ITS | Encounter Summary ---
Author Organization [facility] Address [address] [place] [address] Phone Care Team Providers Care Road Engineer Name Role Phone Phan Garvin MD Primary Care Provider [phone] Phan Garvin MD Unavailable [phone] Encounter Details Date Type Department Care Team (Late st Contact Info) Description 04/17/2023 Telephone [facility] Obstetrics and Gynecology [address] [facility] Outpatient Health 7th Floor [address] [place] [address] Maria Esther Brown, RN Social [...] on file Legal Sex Female 7:11 PM COLLECTION OFFICER Gender Identity Not on file Sexual Orientation Not on file 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 Melgar would agree to let her see her chiropractor? She is PO 1 week cystoscopy w/biopsies & fulguration. Patient spoke with Dr. Lorenzo over the weekend and attributed a cough attack from the Keflex. Patientagreed to take the Keflex twice daily instead of QID. Patient reported feeling better yesterday & no coughing spell. will continue on Keflex BID ECTION OFFICER documented in this encounter Plan of Treatment Not on file documented as of this encounter Visit Diagnoses Not on filedocumented in this encounter Care Teams Road Engineer Relationship Specialty Start Date End Date Phan Garvin MD PCP - General Family Medicine 09/14/22 Phan Garvin MD Family Medicine 09/14/22 documented as of this encounter
--- OUTSIDE RECORDS SUMMARY | 2024-03-15 10:26 | XMS_ITS | Encounter Summary ---
Author Organization [facility] Address [address] [place] [address] Phone Care Team Providers Care Stem Assembler Name Role Phone Phan Garvin MD Primary Care Provider [phone] Phan Garvin MD Unavailable [phone] Reason for Visit * Reason Onset Date Comments UTI/cefdinir 03/29/2023 Encounter Details Date Type Department Care Team (Late st Contact Info) Description 03/29/2023 Telephone [facility] Obstetrics and Gynecology [facility] Outpatient Health 7th Floor [address] [place] [address] Maria Esther Brown RN UTI/cefdinir Social History Tobacco Use Types Packs/Day Years [...] on file Legal Sex Female 7:11 PM CLERICAL ORDER FILLER Gender Identity Not on file Sexual Orientation Not on file 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 Patient is in [place], [place] and went to urgent care. She was put on Cefdinir 300 mgBID. OR cystoscopy is scheduled 04/11/23. ICAL ORDER FILLER documented in this encounter Plan of Treatment Not on file documented as of this encounter Visit Diagnoses Not on filedocumented in this encounter Care Teams Stem Assembler Relationship Specialty Start Date End Date Phan Garvin MD PCP - General Family Medicine 09/14/22 Phan Garvin MD Family Medicine 09/14/22 documented as of this encounter
--- OUTSIDE RECORDS SUMMARY | 2024-03-15 10:26 | XMS_ITS | Encounter Summary ---
Author Organization [facility] Address [address] [place] [address] Phone Care Team Providers Care Service Representative Name Role Phone Phan Garvin MD Primary Care Provider [phone] Phan Garvin MD Unavailable [phone] Reason for Visit * Reason Onset Date Comments Void/PVR 03/16/2023 Encounter Details Date Type Department Care Team (Late st Contact Info) Description 03/16/2023 Telephone [facility] Obstetrics and Gynecology [facility] Outpatient Health 7th Floor [address] [place] [address] Araceli Anderson RN Void/PVR Social History Tobacco Use Types Packs/Day Years Used Date Smoking Tobacco: Never Alcohol Use Standard Drinks/Week Comments Yes 0 (1 standard drink = 0.6 oz pur e alcohol) Personal Safety Answer Date Recorded Getting School Help Needed Not on file 02/19 Comments No Sex and Gender Information Value Date Recorded Sex Assigned at Not on file Legal Sex Female 7:11 PM LICENSED PSYCHOLOGIST DIRECTOR Gender Identity Not on file Sexual Orientation Not on file 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 She has been performing CISC 2 times a day. Void (ml) PVR (ml) 1/2 140 100 1/3 150 50 200 200 1/4 110 Thinks she inserted vaginally 100 100 1/5 150 200 She states that her dance costume designer has her on 81 mg aspirin instead of Eliquis because she had blood in her urine and thinks her AFIB is controlled with Sotalol. She states they would sign off on her biopsy. She will be out of town 03/26-04/04. NSED PSYCHOLOGIST DIRECTOR documented in this encounter Plan of Treatment Not on file documented as of this encounter Visit Diagnoses Not on filedocumented in this encounter Care Teams Service Representative Relationship Specialty Start Date End Date Phan Garvin MD PCP - General Family Medicine 09/14/22 Phan Garvin MD Family Medicine 09/14/22 documented as of this encounter
--- OUTSIDE RECORDS SUMMARY | 2024-03-15 10:26 | XMS_ITS | Encounter Summary ---
Author Organization [facility] Address [address] [place] [address] Phone Care Team Providers Care Paper Counter Name Role Phone Phan Garvin MD Primary Care Provider [phone] Phan Garvin MD Unavailable [phone] Encounter Details Date Type Department Care Team (Late st Contact Info) Description 03/15/2023 Telephone [facility] Obstetrics and Gynecology [address] [facility] Health 7th Floor [address] [place] [address] Maria Esther Brown, RN [...] on file Legal Sex Female 7:11 PM DIAMOND SIZER AND GRADER Gender Identity Not on file Sexual Orientation Not on file 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 OND SIZER AND GRADER * Telephone Encounter - Maria Esther Brown RN - 03/15/2023 4:09 PM CST ----- Message from Poncho Melgar MD sent at 03/15/2023 1:01 PM DIAMOND SIZER AND GRADER ----- Negative Urine Cx. OND SIZER AND GRADER documented in this encounter Plan of Treatment Not on file documented as of this encounter Visit Diagnoses Not on filedocumented in this encounter Care Teams Paper Counter Relationship Specialty Start Date End Date Phan Garvin MD PCP - General Family Medicine 09/14/22 Phan Garvin MD Family Medicine 09/14/22 documented as of this encounter
--- OUTSIDE RECORDS SUMMARY | 2024-03-15 10:26 | XMS_ITS | Encounter Summary ---
Author Organization [facility] Address [address] [place] [address] Phone Care Team Providers Care Stem Teacher Name Role Phone Phan Garvin MD Primary Care Provider [phone] Phan Gavrin MD Unavailable [phone] Reason for Visit * Reason Onset Date Comments UACX & cytology 04/16/2023 Encounter Details Date Type Department Care Team (Late st Contact Info) Description 04/16/2023 Telephone [facility] Obstetrics and Gynecology [facility] Health 7th Floor [address] [place] [address] Maria Esther Brown RN UACX & cytology Social History Tobacco Use Types Packs/Day Years [...] on file Legal Sex Female 7:11 PM WILDLIFE BIOLOGIST Gender Identity Not on file Sexual Orientation Not on file 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 LIFE BIOLOGIST documented in this encounter Plan of Treatment Not on file documented as of this encounter Visit Diagnoses Not on filedocumented in this encounter Care Teams Stem Teacher Relationship Specialty Start Date End Date Phan Garvin MD PCP - General Family Medicine 09/14/22 Phan Garvin MD Family Medicine 09/14/22 documented as of this encounter
--- OUTSIDE RECORDS SUMMARY | 2024-03-15 10:26 | XMS_ITS | Encounter Summary ---
Author Organization [facility] Address [address] [place] [address] Care Team Providers Care Geospatial Systems Integrator Name Role Phone Phan Garvin MD Primary Care Provider [phone] Phan Garvin MD Unavailable [phone] Encounter Details Date Type Department Care Team (Latest Contact Info) Description 03/13/2023 12:48 PM MANAGER DISASTER RECOVERY - 03/13/2023 11:59 PM MANAGER DISASTER RECOVERY Hospital Encounter [place] [id number] Recurrent UTI; Lesion of bladder Discharge Disposition: [...] on file Legal Sex Female 7:11 PM MANAGER DISASTER RECOVERY Gender Identity Not on file Sexual Orientation Not on file 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 Not on file Not on file documented as of this encounter Medications at Time of Discharge ascorbic acid (VITAMIN C) 500 mg tablet,chewableInd ications:supplemen t Take 1 tablet/chew tab (500 mg total) by mouth every morning cholecalciferol (VITAMIN D-3) 2000 unit capsuleIndications :Vitamin D Deficiency Take 1 capsule (2,000 Units total) by mouth every morning cranberry 400 mg capsuleIndications :urinary health Take 800 mg by mouth every morning estradioL (ESTRACE) 0.01 % (0.1 mg/gram) vaginal creamIndications:P ostmenopausal Urethral Atrophy Insert 2 g into the vagina 2 (two) times a week Mon and Fri 11/20/2022 levothyroxine (SYNTHROID) 25 mcg tabletIndications: hypothyroidism Take 1 tablet (25 mcg total) by mouth every morning 03/03/2022 rosuvastatin (CRESTOR) 10 mg tablet 09/24/2019 vit C,N-Su-vgtqm-lutei n-zeaxan (PreserVision AREDS-2) 250-90-40-1 mg capsuleIndications :eye vitamin Take 1 capsule by mouth 2 (two) times a day zinc 50 mg tabletIndications: supplement Take 50 mg by mouth every morning cephalexin (KEFLEX) 500 mg capsule Take 1 capsule (500 mg total) by mouth 4 (four) times a day for 14 days 56 capsule 04/11/2023 4 acidophilus-pectin , citrus 100 million cell-10 mg capsuleIndications :gut health Take 1 capsule by mouth every morning Not taking 4 apixaban (ELIQUIS) 5 mg tabletIndications: atrial fibrillation Take 1 tablet (5 mg total) by mouth 2 (two) times a day 60 tablet 5 02/20/2023 4 aspirin 81 mg enteric coated tabletIndications: prevention of thrombosis Take 1 tablet (81 mg total) by mouth nightly 4 cefdinir (OMNICEF) 300 mg capsuleIndications :Urinary Tract/Genitourinar y Infection Take 1 capsule (300 mg total) by mouth 2 (two) times a day 4 diphenhydrAMINE (Sleep Aid, diphenhydrAMINE,) 25 mg capsuleIndications :sleep Take 0.5 tablet/capsul e (12.5 mg total) by mouth nightly as needed for itching or sleep 4 Eliquis 5 mg tablet Take 1 tablet (5 mg total) by mouth 2 (two) times a day 02/17/2023 4 guaiFENesin-codein e (GUAITUSS AC) liquid 100-10 mg/5 mL TAKE 10 ML BY MOUTH EVERY 4 TO 6 HOURS NEEDED FOR COUGH 09/29/2021 4 imiquimod (ALDARA) 5 % cream 12/14/2022 4 metoprolol XL (TOPROL-XL) 25 mg extended release tablet Take 1 tablet (25 mg total) by mouth every morning 03/03/2022 4 phenazopyridine (PYRIDIUM) 100 mg tabletIndications: Acute cystitis with hematuria Take 1 tablet (100 mg total) by mouth 3 (three) times a day as needed (urinary pain) for up to 6 doses Take After meals 6 tablet 12/31/2021 4 Premarin vaginal cream 09/17/2019 4 sotaloL (BETAPACE) 80 mg tabletIndications: Prevention of Recurrent Atrial Fibrillation Take 1 tablet (80 mg total) by mouth 2 (two) times a day 03/04/2023 4 sulfamethoxazole-t rimethoprim (BACTRIM DS) 800-160 mg per tablet Take 1 tablet by mouth 2 (two) times a day 10/24/2021 4 turmeric root extract 500 mg capsule Take by mouth 4 vancomycin (VANCOCIN) 125 mg capsuleIndications :Clostridioides difficile infection Take 1 capsule (125 mg total) by mouth 4 (four) times a day 4 documented as of this encounter Discharge Disposition Disposition Code Departure Means Destination Discharge to home or self care documented in this encounter Plan of Treatment Not on file documented as of this encounter Procedures Procedure Name Priority Date/Time Associated Diagnosis Comments URINE CULTURE Routine 03/13/2023 4:26 PM MANAGER DISASTER RECOVERY URINALYSIS AND REFLEX TO MICROSCOPIC AND CULTURE Routine 03/13/2023 12:48 PM MANAGER DISASTER RECOVERY Recurrent UTI Lesion of bladder URINALYSIS, MICROSCOPIC ONLY Routine 03/13/2023 12:48 PM MANAGER DISASTER RECOVERY Recurrent UTI Lesion of bladder documented in this encounter Results * Urine culture Urine, in and out catheter (03/13/2023 4:26 PM MANAGER DISASTER RECOVERY) Report Final Report: No growth [facility] Urine, in and out catheter 03/13/2023 4:26 PM MANAGER DISASTER RECOVERY 03/13/2023 6:13 PM MANAGER DISASTER RECOVERY Narrative [facility] - 03/14/2023 8:39 PM MANAGER DISASTER RECOVERY Urine culture reflexed based upon urinalysis results. Testing performed by [facility] Microbiology Laboratory ([phone]) Poncho Melgar MD LAB MICROBIOLOGY - GENERAL ORDERABLES Final Result Performing Organization Address [facility] Co de Phone Number [facility] [place] [address] * (ABNORMAL) Urinalysis, microscopic only (03/13/2023 12:48 PM MANAGER DISASTER RECOVERY) Pathologist [facility] WBC, ur >50(A) 0 - 5 /HPF [facility] RBC, ur >50(A) 0 - 2 /HPF [facility] Epithelial cells, squamous, ur 1-5 0 - 5 /HPF [facility] Bacteria, ur Trace(A) [facility] Mucous, ur Present(A) [facility] Culture Reflex Comment Reflex to urine culture will be performed. [facility] Urine, in and out catheter 03/13/2023 12:48 PM MANAGER DISASTER RECOVERY 03/13/2023 3:40 PM MANAGER DISASTER RECOVERY Poncho Melgar MD LAB URINE ORDERABLES Final Result Performing Organization Address [facility] Co de Phone Number [facility] [place] [address] * (ABNORMAL) Urinalysis reflex to microscopic and culture Urine, in and out catheter (03/13/2023 12:48 PM MANAGER DISASTER RECOVERY) Pathologist [facility] Color, ur Yellow Yellow [facility] Clarity, ur Cloudy(A) Clear [facility] Specific gravity, ur 1.019 1.003 - 1.030 [facility] pH, urine 5.5 [facility] Comment: Interpretive Data ? Urine pH is affected by diet, medications, systemic acid-base disturbances, and renal tubular function. ??pH may affect urinary stone formation. ??For example, urine pH below 6.0 may help reduce the tendency for calcium phosphate stones and pH greater than 6.0 may reduce the tendency for uric acid stone formation. Source: [facility] [employer] Current Interpretive Data was last revised on 2017 Protein, ur ql 1+(A) Negative [facility] Glucose, ur ql Negative Negative [facility] Ketones, ur Negative Negative [facility] Bilirubin, ur Negative Negative [facility] Blood, ur 3+(A) Negative [facility] Urobilinogen, ur <2.0 <2.0 mg/dL [facility] Nitrite, ur Negative Negative [facility] Leukocyte esterase, ur 2+(A) Negative [facility] UA reflex comment Reflex to microscopic UA will be performed. [facility] Urine, in and out catheter 03/13/2023 12:48 PM MANAGER DISASTER RECOVERY 03/13/2023 3:40 PM MANAGER DISASTER RECOVERY us Poncho Melgar MD LAB MICROBIOLOGY - GENERAL ORDERABLES Final Result [facility] [place] [address] documented in this encounter Visit Diagnoses Diagnosis Recurrent UTI Urinary tract infection, site not specified Lesion of bladder Unspecified disorder of bladder documented in this encounter Care Teams Geospatial Systems Integrator Relationship Specialty Start Date End Date Phan Garvin MD PCP - General Family Medicine 09/14/22 Phan Garvin MD Family Medicine 09/14/22 documented as of this encounter
--- OUTSIDE RECORDS SUMMARY | 2024-03-15 10:27 | XMS_ITS | Encounter Summary ---
Author Organization [facility] Address [address] [place] [address] Phone Care Team Providers Care Scale Attendant Name Role Phone Phan Garvin MD Primary Care Provider [phone] Phan Garvin MD Unavailable [phone] Encounter Details Date Type Department Care Team (Late st Contact Info) Description 02/19/2023 Telephone [facility] Obstetrics and Gynecology [address] [facility] Health 7th Floor [address] [place] [address] Maria Esther Brown, RN Social [...] on file Legal Sex Female 7:11 PM CUPOLA TENDER Gender Identity Not on file Sexual Orientation Not on file 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 LA TENDER * Telephone Encounter - Maria Esther Brown RN - 03/01/2023 11:00 AM CUPOLA TENDER Call received. Reviewed information regarding CISC teaching and [facility]. Pt will schedule with one of our RN's for CISC teaching. She completed her last dose of macrobid yesterday and has appt at [facility] on 03/02/23 for SHANNAN. LA TENDER * Telephone Encounter - Maria Esther Brown RN - 03/01/2023 10:49 AM CUPOLA TENDER LMTC regarding home health/CISC teaching and if she was able to leave SHANNAN at [facility] on 02/28? LA TENDER * Telephone Encounter - Maria Esther Brown RN - 02/22/2023 2:54 PM CST Call to [facility] ([phone]) and spoke with director of nurses, Pavithra. Theywould be unable to teach patient CISC unless the patient is home bound which she is not. Pt is presently in [place] on vacation. Left patient a message regarding this development and offered to schedule appt for CISC teaching with our Rns. LA TENDER * Telephone Encounter - Maria Esther Brown RN - 02/20/2023 3:58 PM CST She would like to know if Dr. Melgar would approve of her learning CISC from an RN friend that works at [facility]? F) [phone] She would like to begin CISC 2-3X daily if Dr. Melgar is in agreement? Ok to send cath order to [address] [place] [address]? She feels that retaining urine is definitely the reason for her incontinence and she is ready to learn. Recently put on Eliquis BID for her A-Fib. LA TENDER * Telephone Encounter - Maria Esther Brown RN - 02/20/2023 3:20 PM CST LMTC LA TENDER * Telephone Encounter - Maria Esther Brown RN - 02/19/2023 4:12 PM CST Pt left lengthy voice message requesting that our office send order to [facility] for CISC teaching. She has an RN friend (Marielena Gunter) that would be able to teach her with an order. Would you approve [facility] order or prefer our RN's to teach? Also, she is going through 10-12 adult diapers per day and totally incontinent. Up multiple times during the night & would like to know if she can be prescribed medication for this? 02/09/23 UTI & put on macrobid X14 days. LA TENDER documented in this encounter Plan of Treatment Not on file documented as of this encounter Visit Diagnoses Not on filedocumented in this encounter Care Teams Scale Attendant Relationship Specialty Start Date End Date Phan Garvin MD PCP - General Family Medicine 09/14/22 Phan Garvin MD Family Medicine 09/14/22 documented as of this encounter
--- OUTSIDE RECORDS SUMMARY | 2024-03-15 10:27 | XMS_ITS | Encounter Summary ---
Author Organization [facility] Address [address] [place] [address] Phone Care Team Providers Care Money Market Dealer Name Role Phone Phan Garvin MD Primary Care Provider [phone] Phan Garvin MD Unavailable [phone] Encounter Details Date Type Department Care Team (Late st Contact Info) Description 02/12/2023 Telephone [facility] Obstetrics and Gynecology [address] 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 Advised to continue this UTI prevention. Pt is seeing PFPT 2X's per week and wanted to know how long she will need this? Advised that PT would release her when they feel she has reached beneficial results. Prep for case entered and patient is inquiring about when procedure would be scheduled. Forwarded to Gissell. GER PROFESSIONAL DEVELOPMENT documented in this encounter Plan of Treatment Not on file documented as of this encounter Visit Diagnoses Not on filedocumented in this encounter Care Teams Money Market Dealer Relationship Specialty Start Date End Date Phan Garvin MD PCP - General Family Medicine 09/14/22 Phan Garvin MD Family Medicine 09/14/22 documented as of this encounter
--- OUTSIDE RECORDS SUMMARY | 2024-03-15 10:27 | XMS_ITS | Encounter Summary ---
Author Organization [facility] Address [address] [place] [address] Phone Care Team Providers Care Electrical Appliance Preparer Name Role Phone Phan Gavrin MD Primary Care Provider [phone] Phan Garvin MD Unavailable [phone] Reason for Visit * Reason Onset Date Comments Scheduling Appointments 02/14/2023 Encounter Details Date Type Department Care Team (Late st Contact Info) Description 02/14/2023 Telephone [facility] Obstetrics and Gynecology [facility] Outpatient Health 7th Floor [address] [place] [address] Araceli Anderson, JOHN Scheduling Appointments Social History Tobacco Use Types Packs/Day Years Used Date Smoking Tobacco: Never Alcohol Use Standard Drinks/Week Comments Yes 0 (1 standard drink = 0.6 oz pur e alcohol) Comments No Sex and Gender Information Value Date Recorded Sex Assigned at Not on file Legal Sex Female 7:11 PM TOUR AGENT Gender Identity Not on file Sexual Orientation Not on file 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 She will let us know after her biopsy when she can come back for a RNvisit. AGENT * Telephone Encounter - Araceli Anderson RN - 02/15/2023 2:10 PM TOUR AGENT Patient left VM instructing our office to leave a detailed message of Dr. Melgar's instructions. Left message that he would like her to learn how to perform CISC and to call our welder fitter apprentice to make a RN visit appointment. If she does not want to learn this we will see her next for her OR cysto on 03/14/23. AGENT * Telephone Encounter - Araceli Anderson RN - 02/14/2023 4:22 PM TOUR AGENT ----- Message from Poncho Melgar MD sent at 02/09/2023 12:59 PM TOUR AGENT ----- Please check to see if pt is performing CISC. If not, please have her come in and learn. AGENT documented in this encounter Plan of Treatment Not on file documented as of this encounter Visit Diagnoses Not on filedocumented in this encounter Care Teams Electrical Appliance Preparer Relationship Specialty Start Date End Date Phan Garvin MD PCP - General Family Medicine 09/14/22 Phan Garvin MD Family Medicine 09/14/22 documented as of this encounter
--- OUTSIDE RECORDS SUMMARY | 2024-03-15 10:27 | XMS_ITS | Encounter Summary ---
Author Organization [facility] Healthcare Address [address] [place] [address] Care Team Providers Care Agricultural Service Technician Name Role Phone Phan Garvin MD Primary Care Provider [phone] Phan Garvin MD Unavailable [phone] Encounter Details Date Type Department Care Team (Late st Contact Info) Description 03/02/2023 Telephone [facility] Medical Group Cardiology [address] [place] [id number] Isidro Conde MD [address] [place] [address] Social History Tobacco Use Types Packs/Day [...] Legal Sex Female 7:11 PM ACCOUNTS PAYABLE ACCOUNTANT Gender Identity Not on file Sexual Orientation Not on file 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 He advised pt to go to ED. LMOV for pt requesting callback to confirm if she did go to the ED and see how she is feeling today. Will fwd to Dr. Jennings as LAURI [employer]S PAYABLE ACCOUNTANT documented in this encounter Plan of Treatment Not on file documented as of this encounter Visit Diagnoses Not on filedocumented in this encounter Care Teams Agricultural Service Technician Relationship Specialty Start Date End Date Phan Garvin MD PCP - General Family Medicine 09/14/22 Phan Garvin MD Family Medicine 09/14/22 documented as of this encounter
--- OUTSIDE RECORDS SUMMARY | 2024-03-15 10:27 | XMS_ITS | Encounter Summary ---
Author Organization [facility] Healthcare Address [address] [place] [address] Care Team Providers Care Field Agent Name Role Phone Phan Garvin MD Primary Care Provider [phone] Phan Garvin MD Unavailable [phone] Reason for Visit * Reason Comments Follow-up Encounter Details Date Type Department Care Team (Latest Contact Info) Description 02/20/2023 10:30 AM FRAMING AND HANGING Office Visit [facility] Medical Group Cardiology [address] [place] [phone] Siddharth Jennings MD [address] [place] [address] Paroxysmal atrial fibrillation (CMS/HCC) (HCC) (Primary Dx); Other thrombophilia (HCC) Social History Tobacco Use Types Packs/Day Years Used Date Smoking Tobacco: Never Tobacco Cessation:Counseling Given: Not Answered Alcohol Use Standard Drinks/Week Comments Yes 0 (1 standard drink = 0.6 oz pur e alcohol) Personal Safety Answer Date Recorded Getting School Help Needed Not on file 02/19 Comments No Sex and Gender Information Value Date Recorded Sex Assigned at Not on file Legal Sex Female 7:11 PM FRAMING AND HANGING Gender Identity Not on file Sexual Orientation Not on file 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 Not on file Not on file documented as of this encounter Last Filed Vital Signs Vital Sign Reading Time Taken Comments Blood Pressure 146/82 02/20/2023 10:34 AM FRAMING AND HANGING Pulse 84 02/20/2023 10:34 AM FRAMING AND HANGING Temperature - - Respiratory Rate - - Oxygen Saturation 96% 02/20/2023 10:34 AM FRAMING AND HANGING Inhaled Oxygen Concentration - - Weight 72.6 kg (160 lb) 02/20/2023 10:34 AM FRAMING AND HANGING Height 160 cm (5' 3 ) 02/20/2023 10:34 AM FRAMING AND HANGING Body Mass Index 28.34 02/20/2023 10:34 AM FRAMING AND HANGING documented in this encounter Ordered Prescriptions Prescription Sig Dispense Quantity Refills Last Filled Start Date End Date apixaban (ELIQUIS) 5 mg tabletIndications: atrial fibrillation Take 1 tablet (5 mg total) by mouth 2 (two) times a day 60 tablet 5 02/20/2023 03/29/2023 documented in this encounter Progress Notes * Siddharth Jennings MD - 02/20/2023 10:30 AM CST [facility] FOLLOW UP 02/20/2023 Maria A Peralta is a 82 y.o. female who presents for follow up of atrial fibrillation. This is apatient that I saw in consultation at [facility] in February of 2022 when she came in with symptoms of chest pain and had AFib with [...] in the hospital demonstrated some left ventricular hypertrophywith normal systolic function. Despite several evaluations by urologists no specific explanation for this was able to be determined. She has been taking metoprolol and was maintaining sinus rhythm. She returns to the office today for a scheduled six-month appointment. She continues to take a modest dose of metoprolol succinate. The patient reports today that Sunday of last week she had a recurrence of symptomatic atrial fibrillation with tachycardia/palpitations. She went to the emergency room at [facility] and was given some intravenous metoprolol and went back into sinus rhythm. She was placed back on anticoagulation with apixaban and thus far has not had any bleeding problems for the last several days at least. I did remind her that she complained of gross hematuria the last time we anticoagulated her. She had forgotten about that. She is planning to travel to [place] for family visit for the upcoming holidays. She wanted to know what I thought about that. REVIEW OF SYSTEMS General ROS: negative for [...] and rash HOME MEDICATIONS Current Outpatient Medications: ??? acidophilus-pectin, citrus 100 million cell-10 mg capsule, Take by mouth, Disp: , Rfl: ??? ascorbic acid (VITAMIN C) 500 mg tablet,chewable, , Disp: , Rfl: ??? aspirin 81 mg enteric coated tablet, Take 1 tablet (81 mg total) by mouth daily, Disp: , Rfl: ??? cholecalciferol (VITAMIN D-3) 2000 unit capsule, 1 capsule (2,000 Units total), Disp: , Rfl: ??? cranberry 400 mg capsule, Take by mouth, Disp: , Rfl: ??? Eliquis 5 mg tablet, Take 1 tablet (5 mg total) by mouth 2 (two) times a day, Disp: , Rfl: ??? estradioL (ESTRACE) 0.01 % (0.1 mg/gram) vaginal cream, USE FINGERTIP AMOUNT IN VAGINA 2 NIGHTSPER WEEK BEFORE BED, Disp: , Rfl: ??? imiquimod (ALDARA) 5 % cream, , Disp: , Rfl: ??? levothyroxine (SYNTHROID) 25 mcg tablet, TAKE 1 TABLET BY MOUTH DAILY AT 6.30 AM, Disp: , Rfl: ??? metoprolol XL (TOPROL-XL) 25 mg extended release tablet, Take 1 tablet (25 mg total) by mouth every morning, Disp: , Rfl: ??? nitrofurantoin monohydrate (MACROBID) 100 mg capsule, Take 1 capsule (100 mg total) by mouth 2 (two) times a day for 14 days, Disp: 28 capsule, Rfl: 0 ??? phenazopyridine (PYRIDIUM) 100 mg tablet, Take 1 tablet (100 mg total) by mouth 3 (three) timesa day as needed (urinary pain) for up to 6 doses Take After meals, Disp: 6 tablet, Rfl: 0 ??? Premarin vaginal cream, , Disp: , Rfl: ??? zinc 50 mg tablet, Take by mouth, Disp: , Rfl: ??? guaiFENesin-codeine (GUAITUSS AC) liquid 100-10 mg/5 mL, TAKE 10 ML BY MOUTH EVERY 4 TO 6 HOURSAS NEEDED FOR COUGH (Patient not taking: Reported on 03/21/2022), Disp: , Rfl: ??? rosuvastatin (CRESTOR) 10 mg tablet, , Disp: , Rfl: ??? sulfamethoxazole-trimethoprim (BACTRIM DS) 800-160 mg per tablet, Take 1 tablet by mouth 2 (two) times a day (Patient not taking: Reported on 01/08/2023), Disp: , Rfl: ??? turmeric root extract 500 mg capsule, Take by mouth (Patient not taking: Reported on 01/08/2023), Disp: , Rfl: ??? vancomycin (VANCOCIN) 125 mg capsule, Take 1 capsule (125 mg total) by mouth 4 (four) times a day (Patient not taking: Reported on 01/08/2023), Disp: , Rfl: ??? vit C,I-Zz-idaer-lutein-zeaxan (PreserVision AREDS-2) 250-90-40-1 mg capsule, Take by mouth (Patient not taking: Reported on 02/20/2023), Disp: , Rfl: LABS AND OTHER DIAGNOSTIC TESTS No results found for: CHOL No results found for: HDL No results found for: LDLCALC No results found for: TRIG No results found for: CHOLHDL No results found for: WBC , HGB , HCT , MCV , PLT No lab exists for component: LABALBU PHYSICAL EXAM Vitals BP 146/82 (BP Location: Left arm, Patient Position: Sitting) Pulse 84 Ht 160 cm (5' 3 ) Wt 72.6 kg (160 lb) LMP (LMP Unknown) SpO2 96% BMI 28.34 kg/m?? Physical Examination: General appearance - alert, [...] lesions noted ASSESSMENT Paroxysmal atrial fibrillation PLAN/RECOMMENDATIONS The patient will continue taking metoprolol. The recent episode of AFib last week was the 1st recurrence that she had in a year. At this time we made the mutual decision we will not advance to a moreaggressive antiarrhythmic She will continue systemic anticoagulation with apixaban at least for now. I did remind the patientand her family that she did experience some gross hematuria when we anticoagulated her last year Fine with me for her to travel to [place] for [place] Follow-up here 6 months or p.r.n. Siddharth Jennings MD ING AND HANGING documented in this encounter Plan of Treatment Not on file documented as of this encounter Visit Diagnoses Diagnosis Paroxysmal atrial fibrillation (CMS/HCC) (HCC)- Primary Atrial fibrillation Other thrombophilia (HCC) documented in this encounter Discontinued Medications Medication Sig Discontinue Reason Start Date End Da te aspirin 81 mg enteric coated tablet Take 1 tablet (81 mg total) by mouth daily 02/20/2023 documented as of this encounter Historical Medications * This list may reflect changes made after this encounter. Eliquis 5 mg tablet Take 1 tablet (5 mg total) by mouth 2 (two) times a day 02/17/2023 03/29/2023 added in this encounter Care Teams Field Agent Relationship Specialty Start Date End Date Phan Garvin MD PCP - General Family Medicine 09/14/22 Phan Garvin MD Family Medicine 09/14/22 documented as of this encounter
--- OUTSIDE RECORDS SUMMARY | 2024-03-15 10:27 | XMS_ITS | Encounter Summary ---
Author Organization [facility] Address [address] [place] [address] Phone Care Team Providers Care Hot Dimpling Machine Operator Name Role Phone Phan Garvin MD Primary Care Provider [phone] Phan Garvin MD Unavailable [phone] Encounter Details Date Type Department Care Team (Late st Contact Info) Description 02/09/2023 Orders Only [facility] Obstetrics and Gynecology [address] 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 file Not on file Not on file documented as of this encounter Miscellaneous Notes * Addendum Note - Brielle Aguilar RMA - 02/09/2023 11:25 AM CSTAddended by: BRIELLE AGUILAR on: 02/09/2023 11:36 AM Modules accepted: Orders E MAKER * Addendum Note - Brielle Aguilar RMA - 02/09/2023 11:25 AM CSTAddended by: BRIELLE AGUILAR on: 02/09/2023 11:36 AM Modules accepted: Orders E MAKER documented in this encounter Plan of Treatment Not on file documented as of this encounter Visit Diagnoses Diagnosis Complicated UTI (urinary tract infection)- Primary documented in this encounter Care Teams Hot Dimpling Machine Operator Relationship Specialty Start Date End Date Phan Garvin MD PCP - General Family Medicine 09/14/22 Phan Garvin MD Family Medicine 09/14/22 documented as of this encounter
--- OUTSIDE RECORDS SUMMARY | 2024-03-15 10:27 | XMS_ITS | Encounter Summary ---
Author Organization [facility] Healthcare Address [address] [place] [address] Care Team Providers Care Principal Scientist Name Role Phone Phan Garvin MD Primary Care Provider [phone] Phan Garvin MD Unavailable [phone] Encounter Details Date Type Department Care Team (Latest Contact Info) Description 02/09/2023 1:35 PM DIRECTOR OF ORTHOPEDICS - 02/09/2023 11:59 PM DIRECTOR OF ORTHOPEDICS Hospital Encounter [address] [address] Complicated UTI (urinary tract infection) Discharge Disposition: Discharge to home or self care Social History Tobacco Use Types Packs/Day Years Used Date Smoking Tobacco: Never Alcohol Use Standard Drinks/Week Comments Yes 0 (1 standard drink = 0.6 oz pur e alcohol) Comments No Sex and Gender Information Value Date Recorded Sex Assigned at Not on file Legal Sex Female 7:11 PM DIRECTOR OF ORTHOPEDICS Gender Identity Not on file Sexual Orientation Not on file 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 Not on file Not on [...] rosuvastatin (CRESTOR) 10 mg tablet 09/24/2019 vit C,O-Qy-bubgy-lutei n-zeaxan (PreserVision AREDS-2) 250-90-40-1 mg capsuleIndications :eye vitamin Take 1 capsule by mouth 2 (two) times a day zinc 50 mg tabletIndications: supplement Take 50 mg by mouth every morning cephalexin (KEFLEX) 500 mg capsule Take 1 capsule (500 mg total) by mouth 4 (four) times a day for 14 days 56 capsule 04/11/2023 4 metroNIDAZOLE (FLAGYL) 500 mg tablet Take 1 tablet (500 mg total) by mouth 2 (two) times a day for 7 days 14 tablet 02/09/2023 3 acidophilus-pectin , citrus 100 million cell-10 mg capsuleIndications :gut health Take 1 capsule by mouth every morning Not taking 4 aspirin 81 mg enteric coated tablet Take 1 tablet (81 mg total) by mouth daily 3 aspirin 81 mg enteric coated tabletIndications: prevention [...] as needed for itching or sleep 4 guaiFENesin-codein e (GUAITUSS AC) liquid 100-10 [...] Procedure Name Priority Date/Time Associated Diagnosis Comments URINALYSIS AND REFLEX TO MICROSCOPIC Routine 02/09/2023 11:41 AM DIRECTOR OF ORTHOPEDICS Complicated UTI (urinary tract infection) URINALYSIS, MICROSCOPIC ONLY Routine 02/09/2023 11:41 AM DIRECTOR OF ORTHOPEDICS Complicated UTI (urinary tract infection) URINE CULTURE Routine 02/09/2023 11:41 AM DIRECTOR OF ORTHOPEDICS Complicated UTI (urinary tract infection) documented in this encounter Results * (ABNORMAL) Urinalysis, microscopic only (02/09/2023 11:41 AM DIRECTOR OF ORTHOPEDICS) Pathologist [facility] WBC, ur >50(A) 0 - 5 /HPF [facility] RBC, ur 11-20(A) 0 - 2 /HPF [facility] Epithelial cells, squamous, ur 1-5 0 - 5 /HPF [facility] Bacteria, ur Trace(A) [facility] Mucous, ur Present(A) [facility] Urine, in and out catheter 02/09/2023 11:41 AM DIRECTOR OF ORTHOPEDICS 02/09/2023 3:08 PM DIRECTOR OF ORTHOPEDICS Poncho Melgar MD LAB URINE ORDERABLES Final Result [facility] Department [place] [address] * (ABNORMAL) Urine culture Urine, in and out catheter (02/09/2023 11:41 AM DIRECTOR OF ORTHOPEDICS) Report Final Report: Greater than or equal to 100,000 colonies/mL of Enterococcus faecalis 10,000 to 100,000 colonies/mL of Escherichia coli (.) [facility] Organism ENTEROCOCCUS FAECALIS [facility] Organism ESCHERICHIA COLI [facility] Urine, in and out catheter 02/09/2023 11:41 AM DIRECTOR OF ORTHOPEDICS 02/09/2023 3:38 PM DIRECTOR OF ORTHOPEDICS Narrative [facility] - 02/11/2023 2:49 PM DIRECTOR OF ORTHOPEDICS Testing performed by [facility] Microbiology Laboratory ([phone]) Organism Antibiotic Method Susceptibility Enterococcus faecalis Daptomycin (NU) (NU) INTERPRET ATION Intermediate Enterococcus faecalis Ampicillin (NU) INTERPRETATIO N Susceptible Enterococcus faecalis Vancomycin (NU) INTERPRETATIO N Susceptible Enterococcus faecalis Linezolid (NU) INTERPRETATIO N Susceptible Enterococcus faecalis Doxycycline (NU) INTERPRETATIO N Susceptible Enterococcus faecalis Nitrofurantoin (NU) INTERPRETAT ION Susceptible Escherichia coli Ampicillin INTERPRETATION Resistant Escherichia coli Cefazolin INTERPRETATION Susceptible Escherichia coli Nitrofurantoin INTERPRETATION Susceptible Escherichia coli Gentamicin INTERPRETATION Susceptible Escherichia coli Trimethoprim with Sulfamethoxazole INTERPRETATION Resistant Escherichia coli Meropenem INTERPRETATION Susceptible Escherichia coli Cefepime INTERPRETATION Susceptible Escherichia coli Ciprofloxacin INTERPRETATION Resistant Escherichia coli Ceftazidime INTERPRETATION Susceptible Escherichia coli Ceftriaxone INTERPRETATION Susceptible Escherichia coli Piperacillin/Tazobactam INTERPRETATIO N Susceptible Escherichia coli Cephalexin INTERPRETATION Susceptible Escherichia coli Cefuroxime-axetil INTERPRETATION Susceptible Escherichia coli Cefdinir INTERPRETATION Susceptible Poncho Melgar MD LAB MICROBIOLOGY - GENERAL ORDERABLES Final Result Performing Organization Address [facility] [place] [facility] Co de Phone Number [facility] Department [place] [address] * (ABNORMAL) Urinalysis reflex to microscopic (02/09/2023 11:41 AM DIRECTOR OF ORTHOPEDICS) Color, ur Yellow Yellow [facility] Clarity, ur Cloudy(A) Clear [facility] Specific gravity, ur 1.010 1.003 - 1.030 [facility] pH, urine 6.0 [facility] Comment: Interpretive Data ? Urine pH is affected by diet, medications, systemic acid-base disturbances, and renal tubular function. ??pH may affect urinary stone formation. ??For example, urine pH below 6.0 may help reduce the tendency for calcium phosphate stones and pH greater than 6.0 may reduce the tendency for uric acid stone formation. Source: [facility] NameMedia Current Interpretive Data was last revised on 2017 Protein, ur ql Negative Negative [facility] Glucose, ur ql Negative Negative [facility] Ketones, ur Negative Negative [facility] Bilirubin, ur Negative Negative [facility] Blood, ur Negative Negative [facility] Urobilinogen, ur <2.0 <2.0 mg/dL [facility] Nitrite, ur Negative Negative [facility] Leukocyte esterase, ur 3+(A) Negative [facility] UA reflex comment Reflex to microscopic UA will be performed. [facility] Urine, in and out catheter 02/09/2023 11:41 AM DIRECTOR OF ORTHOPEDICS 02/09/2023 3:08 PM DIRECTOR OF ORTHOPEDICS Poncho Melgar MD LAB URINE ORDERABLES Final Result Performing Organization Address [facility] [place] [facility] Co de Phone Number JUAN JOSE GUEVARA [facility] Department [place] [address] documented in this encounter Visit Diagnoses Diagnosis Complicated UTI (urinary tract infection) documented in this encounter Care Teams Principal Scientist Relationship Specialty Start Date End Date Phan Garvin MD PCP - General Family Medicine 09/14/22 Phan Garvin MD Family Medicine 09/14/22 documented as of this encounter
--- OUTSIDE RECORDS SUMMARY | 2024-03-15 10:27 | XMS_ITS | Encounter Summary ---
Author Organization [facility] Address [address] [place] [address] Phone Care Team Providers Care Delicatessen Store Manager Name Role Phone Phan Garvin MD Primary Care Provider [phone] Phan Garvin MD Unavailable [phone] Encounter Details Date Type Department Care Team (Late st Contact Info) Description 02/12/2023 Telephone [facility] Obstetrics and Gynecology [address] [facility] 7th [address] [place] [address] Alyson Brown, RN Social History Tobacco Use Types Packs/Day Years Used Date Smoking Tobacco: Never Alcohol Use Standard Drinks/Week Comments Yes 0 (1 standard drink = 0.6 oz pur e alcohol) Comments No Sex and Gender Information Value Date Recorded Sex Assigned at Not on file Legal Sex Female 7:11 PM SPINNING BATH PATROLLER Gender Identity Not on file Sexual Orientation Not on file 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 Verbalized understanding. Surgery is scheduled 03/14/22. NING BATH PATROLLER * Addendum Note - Alyson Brown RN - 02/14/2023 11:27 AM CSTAddended by: LAYSON BROWN on: 02/14/2023 11:27 AM Modules accepted: Orders NING BATH PATROLLER * Telephone Encounter - Alyson Brown RN - 02/14/2023 11:26 AM SPINNING BATH PATROLLER LMTC regarding flagyl & macrobid can be taken together and neither is associated with C. Diff per Dr. Melgar. Order entered for macrobid BID X 14 days. NING BATH PATROLLER * Telephone Encounter - Alyson Brown RN - 02/12/2023 2:52 PM CST Discussed with patient UA CX result as positive and Dr. Melgar's recommendation for macrobid X14 days. Patient is presently on Flagyl X7 days that Ordered for her 02/09/23 following office procedure. 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 Do you recommend both antibiotics together or stop flagyl & switch to macrobid? NING BATH PATROLLER * Telephone Encounter - Alyson Brown RN - 02/12/2023 2:30 PM CST LMTC regarding UACX result and sending in macrobid X14 days BID. NING BATH PATROLLER * Telephone Encounter - Alyson Brown RN - 02/12/2023 2:28 PM CST ----- Message from Poncho Melgar MD sent at 02/12/2023 1:37 PM SPINNING BATH PATROLLER ----- Please offer macrobid 100mg po bid x 14 days. NING BATH PATROLLER documented in this encounter Plan of Treatment Not on file documented as of this encounter Visit Diagnoses Not on filedocumented in this encounter Care Teams Delicatessen Store Manager Relationship Specialty Start Date End Date Phan Garvin MD PCP - General Family Medicine 09/14/22 Phan Garvin MD Family Medicine 09/14/22 documented as of this encounter
--- OUTSIDE RECORDS SUMMARY | 2024-03-15 10:27 | XMS_ITS | Encounter Summary ---
Author Organization [facility] Address [address] [place] [address] Phone Care Team Providers Care Gerontology Aide Name Role Phone Phan Garvin MD Primary Care Provider [phone] Phan Garvin MD Unavailable [phone] Encounter Details Date Type Department Care Team (Late st Contact Info) Description 03/01/2023 Telephone [facility] Obstetrics and Gynecology [address] [facility] 7th [address] [place] [address] Maria Esther Brown, RN Social [...] on file Legal Sex Female 7:11 PM FOURTH HAND Gender Identity Not on file Sexual Orientation Not on file 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 TH HAND * Telephone Encounter - Maria Esther Brown RN - 03/01/2023 4:05 PM CST ----- Message from Gissell Anaya B.A. sent at 03/01/2023 4:02 PM FOURTH HAND ----- Regarding: RE: DEBORAH Melgar Unable to contact patient Please try to leave a message for this patient-- she will return your call ----- Message ----- From: Maria Esther Brown RN Sent: 03/01/2023 3:42 PM FOURTH HAND To: Gissell Anaya B.A. Subject: FW: CPAP Dr. Melgar Unable to contact patient Can you help facilitate an appt with CPAP with this patient? She has trouble with her phone but if you leave a message she usually calls back. She is not on my chart. ----- Message ----- From: Brayan Church RN Sent: 03/01/2023 11:51 AM FOURTH HAND To: [facility] Clinical Pool Subject: CPAP Dr. Melgar Unable to contact patient The [facility] for [facility] Planning (CPAP) Department has not been able to reach the attached patient, after multiple attempts, to complete their Pre-Op Anesthesia Assessment. At this time, we will not be making further attempts to contact the patient. If the patient is unable to return our call prior to 2 business days before their surgery date, then the CPAP Department's Pre-OpAnesthesia Assessment will not be performed and the patient will be evaluated by The Day of SurgeryAnesthesia Team. This is a courtesy notification. Thank you. >NOTE: There is no need to reply to this message but if you have questions, please contact the [facility] Day of Surgery RN @ [phone] and your call will be directed to the appropriate staff member. Cristela TH HAND documented in this encounter Plan of Treatment Not on file documented as of this encounter Visit Diagnoses Not on filedocumented in this encounter Care Teams Gerontology Aide Relationship Specialty Start Date End Date Phan Garvin MD PCP - General Family Medicine 09/14/22 Phan Garvin MD Family Medicine 09/14/22 documented as of this encounter
--- OUTSIDE RECORDS SUMMARY | 2024-03-15 10:27 | XMS_ITS | Encounter Summary ---
Author Organization [facility] Address [address] [place] [address] Care Team Providers Care Data Compiler Name Role Phone Phan Garvin MD Primary Care Provider [phone] Phan Garvin MD Unavailable [phone] Reason for Visit * Reason Onset Date Comments Scheduling Appointments 03/04/2023 Encounter Details Date Type Department Care Team (Late st Contact Info) Description 03/04/2023 Telephone [facility] Medical Group Cardiology [address] [place] [address] Umu Marrufo MD [address] [place] [address] Scheduling Appointments Social History Tobacco Use Types Packs/Day Years Used Date Smoking Tobacco: Never Alcohol Use Standard Drinks/Week Comments Yes 0 (1 standard drink = 0.6 oz pur e alcohol) Personal Safety Answer Date Recorded Getting School Help Needed Not on file 02/19 Comments No Sex and Gender Information Value Date Recorded Sex Assigned at Not on file Legal Sex Female 7:11 PM SUGAR HOUSE SUPERVISOR Gender Identity Not on file Sexual Orientation Not on file 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 R HOUSE SUPERVISOR * Telephone Encounter - Lisha King RN - 03/06/2023 9:09 AM SUGAR HOUSE SUPERVISOR Please schedule pt for hospital f/u in the next month or so. R HOUSE SUPERVISOR * Telephone Encounter - Umu Marrufo MD - 03/04/2023 6:35 PM SUGAR HOUSE SUPERVISOR Patient admitted after 2 ER visits in 1 month for PAF. Loaded on sotalol. Discharged today. --please schedule a follow-up visit in the next month or so. R HOUSE SUPERVISOR documented in this encounter Plan of Treatment Not on file documented as of this encounter Visit Diagnoses Not on filedocumented in this encounter Care Teams Data Compiler Relationship Specialty Start Date End Date Phan Garvin MD PCP - General Family Medicine 09/14/22 Phan Garvin MD Family Medicine 09/14/22 documented as of this encounter
--- OUTSIDE RECORDS SUMMARY | 2024-03-15 10:27 | XMS_ITS | Encounter Summary ---
Author Organization [facility] Address [address] [place] [address] Phone Care Team Providers Care Veneer Supervisor Name Role Phone Phan Garvin MD Primary Care Provider [phone] Phan Garvin MD Unavailable [phone] Encounter Details Date Type Department Care Team (Late st Contact Info) Description 02/27/2023 Telephone [facility] Obstetrics and Gynecology [address] [facility] 7th [address] [place] [address] Araceli Anderson RN Social History [...] on file Legal Sex Female 7:11 PM HISTORICAL GUIDE Gender Identity Not on file Sexual Orientation Not on file 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 She would like to leave urine for a test of cure tomorrow. ORICAL GUIDE documented in this encounter Plan of Treatment Scheduled Orders Name Type Priority Associated Diagnoses Orde r Schedule Urine culture Urine, clean voided Microbiology Routine Cloudy urine Frequency of urination Expected: 02/27/2023, Expires: 02/28/2024 documented as of this encounter Visit Diagnoses Diagnosis Cloudy urine- Primary Frequency of urination Urinary frequency documented in this encounter Care Teams Veneer Supervisor Relationship Specialty Start Date End Date Phan Garvin MD PCP - General Family Medicine 09/14/22 Phan Garvin MD Family Medicine 09/14/22 documented as of this encounter
--- OUTSIDE RECORDS SUMMARY | 2024-03-15 10:27 | XMS_ITS | Encounter Summary ---
Author Organization [facility] Address [address] [place] [address] Care Team Providers Care Apartment Maintenance Worker Name Role Phone Phan Garvin MD Primary Care Provider [phone] Phan Garvin MD Unavailable [phone] Encounter Details Date Type Department Care Team (Late st Contact Info) Description 03/06/2023 Telephone [facility] Medical Group Cardiology [address] [facility] [address] [address] Siddharth Jennings MD [address] [facility] [address] [place] [address] Social History Tobacco Use Types Packs/Day Years Used Date Smoking Tobacco: Never Alcohol Use Standard Drinks/Week Comments Yes 0 (1 standard drink = 0.6 oz pur e alcohol) Personal Safety Answer Date Recorded Getting School Help Needed Not on file 02/19 Comments No Sex and Gender Information Value Date Recorded Sex Assigned at Not on file Legal Sex Female 7:11 PM TREE SURGEON HELPER Gender Identity Not on file Sexual Orientation Not on file 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 Advised pt to call pcp. SURGEON HELPER * Telephone Encounter - Adriancristal Brielle - 03/06/2023 1:15 PM CST Pt has been requested for jury duty and would like a letter to excuse her of it. Please fax number [phone] and please fax before 03/19/2023. Call if there are any other questions. SURGEON HELPER documented in this encounter Plan of Treatment Not on file documented as of this encounter Visit Diagnoses Not on filedocumented in this encounter Care Teams Apartment Maintenance Worker Relationship Specialty Start Date End Date Phan Garvin MD PCP - General Family Medicine 09/14/22 Phan Garvin MD Family Medicine 09/14/22 documented as of this encounter
--- OUTSIDE RECORDS SUMMARY | 2024-03-15 10:27 | XMS_ITS | Encounter Summary ---
Author Organization [facility] Address [address] [place] [address] Phone Care Team Providers Care Industrial Tractor Driver Name Role Phone Phan Garvin MD Primary Care Provider [phone] Phan Garvin MD Unavailable [phone] Encounter Details Date Type Department Care Team (Late st Contact Info) Description 02/09/2023 Orders Only [facility] Obstetrics and Gynecology [address] [facility] 7th [address] [place] [address] Poncho Melgar MD [address] [place] [address] Complicated UTI (urinary tract infection) Social History Tobacco Use Types Packs/Day Years Used Date Smoking Tobacco: Never Alcohol Use Standard Drinks/Week Comments Yes 0 (1 standard drink = 0.6 oz pur e alcohol) Comments No Sex and Gender Information Value Date Recorded Sex Assigned at Not on file Legal Sex Female 7:11 PM REGULATORY AFFAIRS INTER[employer]IP Gender Identity Not on file Sexual Orientation Not on file 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
--- OUTSIDE RECORDS SUMMARY | 2024-03-15 10:28 | XMS_ITS | Encounter Summary ---
Author Organization [facility] Address [address] [place] [address] Phone Care Team Providers Care Automatic Transmission Mechanic Name Role Phone Phan Garvin MD Primary Care Provider [phone] Phan Garvin MD Unavailable [phone] Encounter Details Date Type Department Care Team (Late st Contact Info) Description 01/11/2023 Telephone [facility] Obstetrics and Gynecology [address] [facility] 7th [address] [place] [address] Alyson Brown RN Social History Tobacco Use Types Packs/Day Years Used Date Smoking Tobacco: Never Alcohol Use Standard Drinks/Week Comments Yes 0 (1 standard drink = 0.6 oz pur e alcohol) Comments No Sex and Gender Information Value Date Recorded Sex Assigned at Not on file Legal Sex Female 7:11 PM INSPECTOR ASSEMBLIES AND INSTALLATIONS Gender Identity Not on file Sexual Orientation Not on file 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 Not on file Not on file documented as of this encounter Ordered Prescriptions Prescription Sig Dispense Quantity Refills Last Filled Start Date End Date nitrofurantoin monohydrate (MACROBID) 100 mg capsule Take 1 capsule (100 mg total) by mouth 2 (two) times a day for 5 days 10 capsule 01/19/2023 3 documented in this encounter Miscellaneous Notes * Addendum Note - Araceli Anderson, JOHN - 01/19/2023 2:18 PM CSTAddended by: ARACELI ANDERSON on: 01/19/2023 02:18 PM Modules accepted: Orders ECTOR ASSEMBLIES AND INSTALLATIONS * Telephone Encounter - Araceli Anderson RN - 01/19/2023 2:13 PM INSPECTOR ASSEMBLIES AND INSTALLATIONS Patient returned call. She is in [place] and would like Macrobid sent to a pharmacy in [place]. Reviewed ED precautions with patient. Informed her that we will check another urine culture before bladdertesting on 02/09. ECTOR ASSEMBLIES AND INSTALLATIONS * Telephone Encounter - Alyson Brown RN - 01/19/2023 12:28 PM INSPECTOR ASSEMBLIES AND INSTALLATIONS LMTC regarding SHANNAN following UTI/Keflex. ECTOR ASSEMBLIES AND INSTALLATIONS * Addendum Note - Alyson Borwn RN - 01/11/2023 11:34 AM CDTAddended by: ALYSON BROWN on: 01/11/2023 11:34 AM Modules accepted: Orders * Telephone Encounter - Alyson Brown RN - 01/11/2023 11:31 AM CDT Received call. Patient reports symptom improvement on Ampicillin. Will complete antibiotic and go to [facility] for SHANNAN, per Dr. Melgar. * Telephone Encounter - Alyson Brown RN - 01/11/2023 11:22 AM CDT LMTC regarding taking empiric ampicillin given to her by Dr. Melgar following office visit Check ifshe is having improvement of symptoms. If not, can switch to Keflex. * Telephone Encounter - Alyson Brown RN - 01/11/2023 11:21 AM CDT ----- Message from Poncho Melgar MD sent at 01/11/2023 10:52 AM CDT ----- Regarding: RE: empiric ampicillin Wait for final unless really symptomatic. ----- Message ----- From: Alyson Brown RN Sent: 01/09/2023 2:21 PM CDT To: Poncho Melgar MD Subject: empiric ampicillin Just to clarify- Office visit yesterday and you gave her Ampicillin 500 mg q6 X7 days because she was symptomatic. Do you want to change antibiotic to Keflex? Prelim aerococcus urinae. Last UTI 12/31 with proteus volgaris/Hauseri and initially treated with Keflex and changed to Cefdinir when Keflex was found to be resistant. ----- Message ----- From: Poncho Melgar MD Sent: 01/09/2023 12:07 PM CDT To: [facility] Clinical Pool If symptomatic offer keflex 500mg po bid x 7 days. documented in this encounter Plan of Treatment Not on file documented as of this encounter Procedures Procedure Name Priority Date/Time Associated Diagnosis Comments URINE CULTURE Routine 01/17/2023 9:44 AM INSPECTOR ASSEMBLIES AND INSTALLATIONS Recurrent UTI documented in this encounter Results * (ABNORMAL) Urine culture Urine, clean voided (01/17/2023 9:44 AM INSPECTOR ASSEMBLIES AND INSTALLATIONS) Urine culture (A) [facility] Comment: ??CULTURE, URINE, ROUTINE ?Micro Number: ?[id number] ??Test Status: ? Final ??Specimen Source: ?? Urine, clean catch ??Specimen Quality: ??Adequate ??Result: ?Greater than 100,000 CFU/mL of Escherichia coli ?E.coli ?INT ?? NU ?? AMOX/CLAVULANATE ? I ? 16 ?? AMP/SULBACTAM ?R ? >=32 ?? CEFAZOLIN ?R ? 8 1 ?? CEFEPIME ? S ? <=0.12 ?? CEFTAZIDIME ?S ? <=1 ?? CEFTRIAXONE ?S ? <=0.25 ?? CIPROFLOXACIN ?R ? >=4 ?? GENTAMICIN ? S ? <=1 ?? IMIPENEM ? S ? <=0.25 ?? LEVOFLOXACIN ? R ? >=8 ?? MEROPENEM ?S ? <=0.25 ?? NITROFURANTOIN ? S ? <=16 ?? PIP/TAZOBACTAM ? S ? <=4 ?? TRIMETHOPRIM/SULFA ? R ? >=320 S=Susceptible ??I=Intermediate ??R=Resistant ??* = Not Tested NR = Not Reported ??NN = See Therapy Comments THERAPY COMMENTS ?Note 1: ?For uncomplicated UTI caused by E. coli, ?K. pneumoniae or P. mirabilis: Cefazolin is ?susceptible if NU <32 mcg/mL and predicts ?susceptible to the oral agents cefaclor, cefdinir, ?cefpodoxime, cefprozil, cefuroxime, cephalexin ?and loracarbef. Urine, clean voided 01/17/2023 9:44 AM INSPECTOR ASSEMBLIES AND INSTALLATIONS 01/17/2023 9:45 AM INSPECTOR ASSEMBLIES AND INSTALLATIONS us Poncho Melgar MD LAB MICROBIOLOGY - GENERAL ORDERABLES Final [facility] [address] [place] [address] documented in this encounter Visit Diagnoses Diagnosis Recurrent UTI- Primary Urinary tract infection, site not specified documented in this encounter Discontinued Medications Medication Sig Discontinue Reason Start Date End Da te fosfomycin (MONUROL) 3 gram packet TAKE ONE PACKET WEEKLY ON SUNDAY (MIXED DIRECTED) Therapy completed 09/30/2021 01/19/2023 documented as of this encounter Care Teams Automatic Transmission Mechanic Relationship Specialty Start Date End Date Phan Garvin MD PCP - General Family Medicine 09/14/22 Phan Garvin MD Family Medicine 09/14/22 documented as of this encounter
--- OUTSIDE RECORDS SUMMARY | 2024-03-15 10:28 | XMS_ITS | Encounter Summary ---
Author Organization [facility] Address [address] [place] [address] Care Team Providers Care Department Helper Name Role Phone Phan Garvin MD Primary Care Provider [phone] Phan Garvin MD Unavailable [phone] Reason for Visit * Reason Comments New Patient Diarrhea Subsided. Pt was pos itive for C diff. Colonoscopy Cologuard done last year and came back negative. EGD EGD never done in e past. Diverticulitis Encounter Details Date Type Department Care Team (Latest Contact Info) Description 09/28/2022 11:00 AM CDT Office Visit [facility] Gastroenterology at [address] [place] [address] Rudy Hollis MD [address] [place] [address] [address] [place], [place] [id number] Diverticulitis (Primary Dx); Diarrhea, unspecified type; Anemia, unspecified type; Procedure and treatment not carried out for other reasons Social History Tobacco Use Types Packs/Day Years Used Date Smoking Tobacco: Never Tobacco Cessation:Counseling Given: Not Answered Alcohol Use Standard Drinks/Week Comments Yes 0 (1 standard drink = 0.6 oz pur e alcohol) Comments Unknown Sex and Gender Information Value Date Recorded Sex Assigned at Not on file Legal Sex Female 7:11 PM RUBBER FACTORY WORKER Gender Identity Not on file Sexual Orientation Not on file 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 [facility] [place]ology at [place] Subjective/Objective Patient ID: Maria A Peralta is a 81 y.o. White female. I am seeing this patient in consultation, requested by Phan Garvin MD for diarrhea. Chief Complaint Patient presents with New Patient Diarrhea Subsided. Pt was positive for C diff. Colonoscopy Cologuard done last year and came back negative. EGD EGD never done in the past. Diverticulitis Chief Complaint New Patient, Diarrhea (Subsided. Pt was positive for C diff. ), Colonoscopy (Cologuard done last year and came back negative. ), EGD (EGD never done in the past. ), and Diverticulitis HPI Patient presents to GI clinic for evaluation of diarrhea. Patient has a history of multiple UTIs. She was diagnosed with uncomplicated rectosigmoid diverticulitis August 2022. She was treated with antibiotics. She was admitted to the hospital for abdominal pain, CT scan showed thickening involving the ascending colon, descending colon, sigmoid colon, and rectum consistent with colitis. C diff was positive and she was treated with vancomycin. Her diarrhea has improved significantly and is currently nursing home through her treatment with vancomycin. Review of labs from the outside hospital show that she was anemic with a hemoglobin of 11.2 on September 25, 2022. Past Medical History: Diagnosis Date Atrial fibrillation (CMS/HCC) (HCC) 03/01/2022 Hypercholesteremia Osteoporosis Recurrent UTI Past Surgical History: Procedure Laterality Date BACK SURGERY BLADDER SURGERY Social History Tobacco Use Smoking status: Never Smokeless tobacco: None Substance and Sexual Activity Drug use: Never Sexual activity: None Alcohol Use: Not on file Family History Problem Relation Age of Onset Arthritis Mother Cancer Mother Heart disease Father Allergies Allergen Reactions Prednisone Rash HOME MEDICATIONS : acidophilus-pectin, citrus 100 million cell-10 mg capsule amoxicillin 500 mg tablet/capsule ascorbic acid (VITAMIN C) 500 mg tablet,chewable aspirin 81 mg enteric coated tablet cefdinir (OMNICEF) 300 mg capsule cholecalciferol (VITAMIN D-3) 2000 unit capsule cranberry 400 mg capsule levothyroxine (SYNTHROID) 25 mcg tablet metoprolol XL (TOPROL-XL) 25 mg extended release tablet Premarin vaginal cream rosuvastatin (CRESTOR) 10 mg tablet sulfamethoxazole-trimethoprim (BACTRIM DS) 800-160 mg per tablet turmeric root extract 500 mg capsule vancomycin (VANCOCIN) 125 mg capsule vit C,J-Xa-vxbnu-lutein-zeaxan (PreserVision AREDS-2) 250-90-40-1 mg capsule zinc 50 mg tablet fosfomycin (MONUROL) 3 gram packet guaiFENesin-codeine (GUAITUSS AC) liquid 100-10 mg/5 mL phenazopyridine (PYRIDIUM) 100 mg tablet Review of Systems Constitutional: Negative for chills and fever. HENT: Negative for mouth sores and sore throat. Eyes: Negative for pain and redness. Respiratory: Negative for cough, shortness of breath and wheezing. Cardiovascular: Negative for chest pain and palpitations. Gastrointestinal: See HPI Endocrine: Negative for cold intolerance and heat intolerance. Musculoskeletal: Negative for arthralgias and back pain. Skin: Negative for color change and rash. Neurological: Negative for dizziness and light-headedness. Hematological: Negative for adenopathy. Does not bruise/bleed easily. Blood pressure (!) 171/94, pulse 75, height 160 cm (5' 3 ), weight 72.7 kg (160 lb 4.8 oz). Body mass index is 28.4 kg/m??. Physical Exam Vitals reviewed. Constitutional: General: She is not in acute distress. HENT: Mouth/Throat: Mouth: Mucous membranes are moist. Pharynx: No oropharyngeal exudate. Eyes: Extraocular Movements: Extraocular movements intact. Conjunctiva/sclera: Conjunctivae normal. Cardiovascular: Rate and Rhythm: Normal rate and regular rhythm. Pulmonary: Effort: Pulmonary effort is normal. Breath sounds: Normal breath sounds. Abdominal: General: Bowel sounds are normal. There is no distension. Palpations: Abdomen is soft. There is no mass. Tenderness: There is no abdominal tenderness. There is no guarding or rebound. Skin: General: Skin is warm and dry. Neurological: General: No focal deficit present. Mental Status: She is alert and oriented to person, place, and time. Psychiatric: Mood and Affect: Mood normal. Behavior: Behavior normal. Assessment/Plan Diagnoses and all orders for this visit: Diverticulitis (Primary) Assessment & Plan: She was diagnosed with uncomplicated rectosigmoid diverticulitis August 2022. She was treated with antibiotics. Denies any current abdominal pain. -discussed colonoscopy for further evaluation, patient deferred secondary due to her age and multiple medical comorbidities -we will order CT colonography as an alternative Orders: - CT Colonoscopy Diagnostic W Contrast; Future Diarrhea, unspecified type Assessment & Plan: Patient has been having diarrhea has been on multiple antibiotics. She was admitted to the hospitalfor abdominal pain October 01, CT scan shows colitis, C diff was positive. She is been treated with vancomycin in her diarrhea has improved significantly. -complete course of vancomycin as prescribed -C diff precautions discussed including washing hands with soap and water to prevent reinfection orspread of infection Anemia, unspecified type Assessment & Plan: Labs from outside hospital show hemoglobin 11.2. Patient denies any overt GI bleeding. -we will order CBC -if patient remains anemic, we will consider upper GI series with small-bowel follow-through Orders: - CBC with auto differential; Future Procedure and treatment not carried out for other reasons - CT Colonoscopy Diagnostic W Contrast; Future Return in about 3 months (around 12/29/2022). Rudy Hollis MD Voice recognition software ([employer]) was used to complete this document. Despite proofreading, power lineman variances and typographical errors may occur. documented in this encounter Miscellaneous Notes * Assessment & Plan Note - Rudy Hollis MD - 09/28/2022 11:55 AM CDTAssociated Problem(s): Anemia Labs from outside hospital show hemoglobin 11.2. Patient denies any overt GI bleeding. -we will order CBC -if patient remains anemic, we will consider upper GI series with small-bowel follow-through * Assessment & Plan Note - Rudy Hollis MD - 09/28/2022 11:55 AM CDTAssociated Problem(s): Diarrhea Patient has been having diarrhea has been on multiple antibiotics. She was admitted to the hospitalfor abdominal pain October 01, CT scan shows colitis, C diff was positive. She is been treated with vancomycin in her diarrhea has improved significantly. -complete course of vancomycin as prescribed -C diff precautions discussed including washing hands with soap and water to prevent reinfection orspread of infection * Assessment & Plan Note - Rudy Hollis MD - 09/28/2022 11:54 AM CDTAssociated Problem(s): Diverticulitis She was diagnosed with uncomplicated rectosigmoid diverticulitis August 2022. She was treated with antibiotics. Denies any current abdominal pain. -discussed colonoscopy for further evaluation, patient deferred secondary due to her age and multiple medical comorbidities -we will order CT colonography as an alternative documented in this encounter Plan of Treatment Not on file documented as of this encounter Visit Diagnoses Diagnosis Diverticulitis- Primary Diverticulitis of colon (without mention of hemorrhage) Diarrhea, unspecified type Anemia, unspecified type Procedure and treatment not carried out for other reasons documented in this encounter Historical Medications * This list may reflect changes made after this encounter. vancomycin (VANCOCIN) 125 mg capsuleIndication s:Clostridioides difficile infection Take 1 capsule (125 mg total) by mouth 4 (four) times a day 03/29/2023 amoxicillin 500 mg tablet/capsule Take 1 tablet/capsul e (500 mg total) by mouth 3 (three) times a day 01/08/2023 acidophilus-pecti n, citrus 100 million cell-10 mg capsuleIndication s:gut health Take 1 capsule by mouth every morning Not taking 07/20/2023 added in this encounter Care Teams Department Helper Relationship Specialty Start Date End Date Phan Garvin MD PCP - General Family Medicine 09/14/22 Phan Garvin MD Family Medicine 09/14/22 documented as of this encounter
--- OUTSIDE RECORDS SUMMARY | 2024-03-15 10:28 | XMS_ITS | Encounter Summary ---
Author Organization [facility] Address [address] [place] [address] Phone Care Team Providers Care Private Pilot Name Role Phone Phan Garvin MD Primary Care Provider [phone] Phan Garvin MD Unavailable [phone] Encounter Details Date Type Department Care Team (Late st Contact Info) Description 01/19/2023 Telephone [facility] 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 ER HEAD * Telephone Encounter - Maria Esther Brown RN - 01/19/2023 2:32 PM CST ----- Message from Poncho Melgar MD sent at 01/19/2023 1:41 PM PUMPER HEAD ----- Can she take nitrofurantoin? Didn't see a GFR in chart. If can, macrobid 100mg po bid x 5 days. ER HEAD documented in this encounter Plan of Treatment Not on file documented as of this encounter Visit Diagnoses Not on filedocumented in this encounter Care Teams Private Pilot Relationship Specialty Start Date End Date Phan Garvin MD PCP - General Family Medicine 09/14/22 Phan Garvin MD Family Medicine 09/14/22 documented as of this encounter
--- OUTSIDE RECORDS SUMMARY | 2024-03-15 10:28 | XMS_ITS | Encounter Summary ---
Author Organization [facility] Address [address] [place] [address] Care Team Providers Care Snuff Container Inspector Name Role Phone Phan Garvin MD Primary Care Provider [phone] Reason for Visit * Reason Comments Atrial Fibrillation Encounter Details Date Type Department Care Team (Late st Contact Info) Description 05/11/2022 3:45 PM DESIGN PROJECT MANAGER Office Visit [facility] Cardiology [address] [place] [address] Siddharth Jennings MD [address] [place] [address] Paroxysmal atrial fibrillation (CMS/HCC) (HCC) (Primary Dx) Social History Tobacco Use Types Packs/Day Years Used Date Smoking Tobacco: Never Tobacco Cessation:Counseling Given: Not Answered Alcohol Use Standard Drinks/Week Comments Yes 0 (1 standard drink = 0.6 oz pur e alcohol) Comments Unknown Sex and Gender Information Value Date Recorded Sex Assigned at Not on file Legal Sex Female 7:11 PM DESIGN PROJECT MANAGER Gender Identity Not on file Sexual Orientation Not on file 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 Not on file Not on file documented as of this encounter Last Filed Vital Signs Vital Sign Reading Time Taken Comments Blood Pressure 124/76 05/11/2022 3:44 PM DESIGN PROJECT MANAGER Pulse 84 05/11/2022 3:44 PM DESIGN PROJECT MANAGER Temperature - - Respiratory Rate - - Oxygen Saturation 97% 05/11/2022 3:44 PM DESIGN PROJECT MANAGER Inhaled Oxygen Concentration - - Weight 77.6 kg (171 lb) 05/11/2022 3:44 PM DESIGN PROJECT MANAGER Height 160 cm (5' 3 ) 05/11/2022 3:44 PM DESIGN PROJECT MANAGER Body Mass Index 30.29 05/11/2022 3:44 PM DESIGN PROJECT MANAGER documented in this encounter Progress Notes * Siddharth Jennings MD - 05/11/2022 3:45 PM CST [facility] FOLLOW UP 05/11/2022 Rohini Peralta is a 81 y.o. female who presents for follow up of atrial fibrillation. This is apatient that I saw in consultation at [facility] in February of 2022 when she [...] demonstrated some left ventricular hypertrophywith normal systolic function She presents today to the office for scheduled follow-up. She is having no cardiovascular symptoms and for now is on metoprolol and appears to be maintaining sinus rhythm. For the reasons mentioned above she is not anticoagulated. She was off and on apixaban 3 times and every time she started it she had gross hematuria. She primarily is concerned about symptoms of dysuria. She says she is had this problem chronically and has seen at least 5 or 6 urologists and no one can figure out what is wrong with her in terms of the pain that she experiences during urination. REVIEW OF SYSTEMS General ROS: negative for [...] rash HOME MEDICATIONS Current Outpatient Medications: ??? ascorbic acid (VITAMIN C) 500 mg tablet,chewable, , Disp: , Rfl: ??? aspirin 81 mg enteric coated tablet, Take 81 mg by mouth daily, Disp: , Rfl: ??? cholecalciferol (VITAMIN D-3) 2000 unit capsule, 2,000 Units, Disp: , Rfl: ??? cranberry 400 mg capsule, Take by mouth, Disp: , Rfl: ??? levothyroxine (SYNTHROID) 25 mcg tablet, TAKE 1 TABLET BY MOUTH DAILY AT 6.30 AM, Disp: , Rfl: ??? metoprolol XL (TOPROL-XL) 25 mg extended release tablet, Take 25 mg by mouth every morning, Disp: , Rfl: ??? turmeric root extract 500 mg capsule, Take by mouth, Disp: , Rfl: ??? vit C,K-Im-niglx-lutein-zeaxan (PreserVision AREDS-2) 250-90-40-1 mg capsule, Take by mouth, Disp: , Rfl: ??? zinc 50 mg tablet, Take by mouth, Disp: , Rfl: ??? fosfomycin (MONUROL) 3 gram packet, TAKE ONE PACKET WEEKLY ON SUNDAY (MIXED DIRECTED) (Patient not taking: Reported on 03/21/2022), Disp: , Rfl: ??? guaiFENesin-codeine (GUAITUSS AC) liquid 100-10 mg/5 mL, TAKE 10 ML BY MOUTH EVERY 4 TO 6 HOURSAS NEEDED FOR COUGH (Patient not taking: Reported on 03/21/2022), Disp: , Rfl: ??? phenazopyridine (PYRIDIUM) 100 mg tablet, Take 1 tablet (100 mg total) by mouth 3 (three) timesa day as needed (urinary pain) for up to 6 doses Take After meals (Patient not taking: Reported on 03/21/2022), Disp: 6 tablet, Rfl: 0 ??? Premarin vaginal cream, , Disp: , Rfl: ??? rosuvastatin (CRESTOR) 10 mg tablet, , Disp: , Rfl: ??? sulfamethoxazole-trimethoprim (BACTRIM DS) 800-160 mg per tablet, Take 1 tablet by mouth 2 (two) times a day (Patient not taking: Reported on 03/21/2022), Disp: , Rfl: LABS AND OTHER DIAGNOSTIC TESTS No results found for: CHOL No results found for: HDL No results found for: LDLCALC No results found for: TRIG No results found for: CHOLHDL No results found for: WBC, HGB, HCT, MCV, PLT No lab exists for component: LABALBU PHYSICAL EXAM Vitals BP 124/76 (BP Location: Left arm, Patient Position: Sitting) Pulse 84 Ht 160 cm (5' 3 ) Wt 77.6 kg (171 lb) SpO2 97% BMI 30.29 kg/m?? Physical Examination: General appearance - alert, [...] noted ASSESSMENT Paroxysmal atrial fibrillation PLAN/RECOMMENDATIONS Continue metoprolol for now seems to be maintaining sinus rhythm. Systemic anticoagulation is obviously indicated but is not being provided because it has been met with gross hematuria and that has occurred several times. Follow-up with me 3 months or p.r.n. Siddharth Jennings MD GN PROJECT MANAGER documented in this encounter Plan of Treatment Not on file documented as of this encounter Visit Diagnoses Diagnosis Paroxysmal atrial fibrillation (CMS/HCC) (HCC)- Primary Atrial fibrillation documented in this encounter Care Teams Snuff Container Inspector Relationship Specialty Start Date End Date Phan Garvin MD PCP - General Family Medicine 03/13/21 09/13/22 documented as of this encounter
--- OUTSIDE RECORDS SUMMARY | 2024-03-15 10:28 | XMS_ITS | Encounter Summary ---
Author Organization [facility] Address [address] [place] [address] Care Team Providers Care Social Worker Aide Name Role Phone Phan Garvin MD Primary Care Provider Encounter Details Date Type Department Care Team (Late st Contact Info) Description 03/09/2022 Telephone [facility] Cardiology [address] [facility] [address] [place] [address] Siddharth Jennings MD [address] [facility] [address] [place] [address] Social History Tobacco Use Types Packs/Day Years Used Date Smoking Tobacco: Never Alcohol Use Standard Drinks/Week Comments Yes 0 (1 standard drink = 0.6 oz pur e alcohol) Comments Unknown Sex and Gender Information Value Date Recorded Sex Assigned at Not on file Legal Sex Female 7:11 PM DIRECTOR OF FINANCE Gender Identity Not on file Sexual Orientation Not on file 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 She is very upset about not being on anything to protect her from stroke risk. She has several friend who are nurses and they told her she needs to be on something or do something to lower he risk. She does not want to wait until 1.24 to see [facility]. And she is going out of town for a week in [place]. Appt made to see CT next week. Pt asked if she could take a baby aspirin for now and I told her yes, and if she had further bleeding issues to call. Sending to CT and F as FYI CTOR OF FINANCE * Telephone Encounter - Albina Figueroa RN - 03/15/2022 10:30 AM CST Attempted to call pt from 3 different lines. 2 of which do not show up as private. Lm to hold eliquis until her f/u with [facility]JF on 04.04 and she can discuss with him at that appt. CTOR OF FINANCE * Telephone Encounter - Tami Manley - 03/15/2022 9:13 AM CST Pt returned call. Informed her per [facility] she should stop her eliquis. Pt states she has been holding her eliquis but wants to know what to do about not taking any blood thinners. Requesting call back from nurse. States her phone does not get private calls and she did not get a VM. Contact: CTOR OF FINANCE CTOR OF FINANCE * Telephone Encounter - Albina Figueroa RN - 03/14/2022 3:44 PM CST Lm on vm per [facility] CTOR OF FINANCE * Telephone Encounter - Virginia Frias - 03/14/2022 1:15 PM DIRECTOR OF FINANCE Pt still awaiting call regarding previous message. Also pt insurance changed, she can no longer us [facility], pt new pharm is [facility] at [phone] CTOR OF FINANCE * Telephone Encounter - Albina Figueroa RN - 03/14/2022 8:45 AM CST Will forward to [facility]. See below CTOR OF FINANCE * Telephone Encounter - Tami Manley - 03/14/2022 8:34 AM CST Pt states she has held and then resumed eliquis 3 times already. States every time she takes the second pill she starts bleeding. Pt is asking if it is safe for her to be on eliquis with this occurring or if her dose should possibly be reduced. Please advise. Thank you. Contact: CTOR OF FINANCE * Telephone Encounter - Carol Darnell RN - 03/09/2022 2:01 PM DIRECTOR OF FINANCE Spoke with pt, she reports her bleeding in the urine had returned after resuming eliquis x 2 doses since being off of it for a few days. Pt said the bleeding isnt as bad as it was when she went to the ED but it is still there. Pt said she is being treated for UTI and started an antibiotic this morning. Pt is going to hold her eliquis as instructed by AD/ER doc when she was in the ED on 03/04: hold eliquis until hematuria resolves. (ED records scanned into media) Advised pt to try and resume after hematuria has resolved. Pt is hopeful that being on antibiotics for a few days will also help. Pt is concerned that the hematuria will cont to reoccur as she has a history of chronic UTI's for the past few years. Pt is asking if it is safe for her to be on eliquis with this occurring or if her dose should possibly reduced? Pt has not followed up with a urologist yet at this point. Pt aware that F is out of the office until next week-she verbalized understanding. Will forward to [facility]. Please advise, thank you! CTOR OF FINANCE * Telephone Encounter - Carol Darnell RN - 03/09/2022 10:19 AM DIRECTOR OF FINANCE LM on requesting callback. CTOR OF FINANCE * Telephone Encounter - Tami Manley - 03/09/2022 9:15 AM CST Pt states she was bleeding profusely so she was instructed to hold eliquis for 3 days. States she started taking eliquis again yesterday and she is back to bleeding again. Pt thinks the eliquis dosage is too much for her. Requesting call to discuss. Contact: CTOR OF FINANCE documented in this encounter Plan of Treatment Not on file documented as of this encounter Visit Diagnoses Not on filedocumented in this encounter Care Teams Social Worker Aide Relationship Specialty Start Date End Date Phan Garvin MD PCP - General Family Medicine 03/13/21 09/13/22 documented as of this encounter
--- OUTSIDE RECORDS SUMMARY | 2024-03-15 10:28 | XMS_ITS | Encounter Summary ---
Author Organization [facility] Address [address] [place] [address] Phone Care Team Providers Care Photographer News Name Role Phone Phan Garvin MD Primary Care Provider [phone] Phan Garvin MD Unavailable [phone] Encounter Details Date Type Department Care Team (Late st Contact Info) Description 01/22/2023 Telephone [facility] Obstetrics and Gynecology [address] 7th [address] [place] [address] Maria Esther Brown, RN Social History Tobacco Use Types Packs/Day Years Used Date Smoking Tobacco: Never Alcohol Use Standard Drinks/Week Comments Yes 0 (1 standard drink = 0.6 oz pur e alcohol) Comments No Sex and Gender Information Value Date Recorded Sex Assigned at Not on file Legal Sex Female 7:11 PM ANIMAL TECH Gender Identity Not on file Sexual Orientation Not on file 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 She reports 4 different antibiotics taken in 1 mo for chronic UTI and would like to make certain UTI is gone. 12/31/22 + proteus Vulgaris/Hauseri Keflex then changed to Cefdinir 01/08/23 + Aerococcus Urinae Ampicillin 01/17/23 + E. Coli macrobid Scheduled for UDS & f/u with Dr. Melgar 02/09/23 AL TECH documented in this encounter Plan of Treatment Scheduled Orders Name Type Priority Associated Diagnoses Orde r Schedule Urine culture Urine, clean voided Microbiology Routine Recurrent UTI Expected: 01/22/2023, Expires: 01/23/2024 documented as of this encounter Visit Diagnoses Diagnosis Recurrent UTI- Primary Urinary tract infection, site not specified documented in this encounter Care Teams Photographer News Relationship Specialty Start Date End Date Phan Garvin MD PCP - General Family Medicine 09/14/22 Phan Garvin MD Family Medicine 09/14/22 documented as of this encounter
--- OUTSIDE RECORDS SUMMARY | 2024-03-15 10:28 | XMS_ITS | Encounter Summary ---
Author Organization [facility] Address [address] [place] [address] Care Team Providers Care Dietitian Helper Name Role Phone Phan Garvin MD Primary Care Provider [phone] Encounter Details Date Type Department Care Team (Late st Contact Info) Description 03/23/2022 Telephone [facility] Cardiology [address] [place] [id number] Payal Carrasquillo NP [address] [place] [address] Social History Tobacco Use Types Packs/Day Years Used Date Smoking Tobacco: Never Alcohol Use Standard Drinks/Week Comments Yes 0 (1 standard drink = 0.6 oz pur e alcohol) Comments Unknown Sex and Gender Information Value Date Recorded Sex Assigned at Not on file Legal Sex Female 7:11 PM MACHINE MAINTENANCE Gender Identity Not on file Sexual Orientation Not on file 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 INE MAINTENANCE * Telephone Encounter - Daniela Mendoza - 03/23/2022 10:47 AM CST Marielena from 's office called regarding the sleep study referral. Per would like to change the order to a split night sleep study . # [phone] Please advise, thanks! INE MAINTENANCE documented in this encounter Plan of Treatment Not on file documented as of this encounter Visit Diagnoses Not on filedocumented in this encounter Care Teams Dietitian Helper Relationship Specialty Start Date End Date Phan Garvin MD PCP - General Family Medicine 03/13/21 09/13/22 documented as of this encounter
--- OUTSIDE RECORDS SUMMARY | 2024-03-15 10:28 | XMS_ITS | Encounter Summary ---
Author Organization [facility] Address [address] [place] [address] Phone Care Team Providers Care Hair Designer Name Role Phone Phan Garvin MD Primary Care Provider [phone] Phan Garvin MD Unavailable [phone] Reason for Visit * Reason Onset Date Comments SHANNAN 01/23/2023 Encounter Details Date Type Department Care Team (Late st Contact Info) Description 01/23/2023 Telephone [facility] Obstetrics and Gynecology 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 Patient wants to go to [facility] to make certain UTI is over. She has appt 02/09/23 for UDS & f/u with Dr. Melgar. NTO WEB DEVELOPER documented in this encounter Plan of Treatment Not on file documented as of this encounter Procedures Procedure Name Priority Date/Time Associated Diagnosis Comments URINE CULTURE Routine 01/25/2023 9:11 AM MAGENTO WEB DEVELOPER Frequent UTI documented in this encounter Results * (ABNORMAL) Urine culture Urine, clean voided (01/25/2023 9:11 AM MAGENTO WEB DEVELOPER) Urine culture (A) [employer] Comment: ??CULTURE, URINE, ROUTINE ?Micro Number: ?[id number] ??Test Status: ? Final ??Specimen Source: ?? Urine, clean catch ??Specimen Quality: ??Adequate ??Result: ?Greater than 100,000 CFU/mL of Escherichia coli ? Greater than 100,000 CFU/mL of Enterococcus species ?E.coli ? Enterococcus sp. ?INT ?? NU ?INT ?? NU ?? AMOX/CLAVULANATE ? S ? 4 ?* ?? AMPICILLIN ? * ?S ? <=2 ?? AMP/SULBACTAM ?R ? >=32 ? * ?? CEFAZOLIN ?NR ?<=4 2 ?* ?? CEFEPIME ? S ? <=0.12 ? * ?? CEFTAZIDIME ?S ? <=1 ?* ?? CEFTRIAXONE ?S ? <=0.25 ? * ?? CIPROFLOXACIN ?R ? >=4 ?* ?? GENTAMICIN ? S ? <=1 ?* ?? IMIPENEM ? S ? <=0.25 ? * ?? LEVOFLOXACIN ? R ? >=8 ?* ?? MEROPENEM ?S ? <=0.25 ? * ?? NITROFURANTOIN ? S ? <=16 ? S ? <=16 ?? PIP/TAZOBACTAM ? S ? <=4 ?* ?? TRIMETHOPRIM/SULFA ? R ? >=320 ?* ?? VANCOMYCIN ? * ?S ? 1 S=Susceptible ??I=Intermediate ??R=Resistant ??* = Not Tested [...] cefuroxime, cephalexin ?and loracarbef. Urine, clean voided 01/25/2023 9:11 AM MAGENTO WEB DEVELOPER 01/25/2023 9:12 AM MAGENTO WEB DEVELOPER Narrative [facility] - 01/27/2023 1:45 PM MAGENTO WEB DEVELOPER FASTING:UNKNOWN FASTING: UNKNOWN us Poncho Melgar MD LAB MICROBIOLOGY - GENERAL ORDERABLES Final Result Performing Organization Address [facility] Co de Phone Number [facility] [address] [place] [address] documented in this encounter Visit Diagnoses Diagnosis Frequent UTI- Primary Urinary tract infection, site not specified documented in this encounter Care Teams Hair Designer Relationship Specialty Start Date End Date Phan Garvin MD PCP - General Family Medicine 09/14/22 Phan Garvin MD Family Medicine 09/14/22 documented as of this encounter
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
--- OUTSIDE RECORDS SUMMARY | 2024-03-15 10:28 | XMS_ITS | Encounter Summary ---
Author Organization [facility] Healthcare Address [address] [place] [address] Care Team Providers Care Home Health Nurse Licensed Practical Name Role Phone Phan Garvin MD Primary Care Provider [phone] Phan Garvin MD Unavailable [phone] Encounter Details Date Type Department Care Team (Latest Contact Info) Description 01/08/2023 10:42 AM CDT - 01/08/2023 11:59 PM CDT Hospital Encounter [address] [address] Recurrent UTI Discharge Disposition: Discharge to home or self care Social History Tobacco Use Types Packs/Day Years Used Date Smoking Tobacco: Never Alcohol Use Standard Drinks/Week Comments Yes 0 (1 standard drink = 0.6 oz pur e alcohol) Comments No Sex and Gender Information Value Date Recorded Sex Assigned at Not on file 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 Gender Identity Not on file Sexual Orientation Not on file 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 Not on file Not on file documented as of this encounter Medications at Time of Discharge ascorbic acid (VITAMIN C) 500 mg tablet,chewableI ndications:suppl ement Take 1 tablet/chew tab (500 mg total) by mouth every morning cholecalciferol (VITAMIN D-3) 2000 unit capsuleIndicatio ns:Vitamin D Deficiency Take 1 capsule (2,000 Units total) by mouth every morning cranberry 400 mg capsuleIndicatio ns:urinary health Take 800 mg by mouth every morning estradioL (ESTRACE) 0.01 % (0.1 mg/gram) vaginal creamIndications :Postmenopausal Urethral Atrophy Insert 2 g into the vagina 2 (two) times a week Mon and Sun11/20/2022 levothyroxine (SYNTHROID) 25 mcg tabletIndication s:hypothyroidism Take 1 tablet (25 mcg total) by mouth every morning 03/03/2022 rosuvastatin (CRESTOR) 10 mg tablet 09/24/2019 vit C,Q-Zj-ojery-lut ein-zeaxan (PreserVision AREDS-2) 250-90-40-1 mg capsuleIndicatio ns:eye vitamin Take 1 capsule by mouth 2 (two) times a day zinc 50 mg tabletIndication s:supplement Take 50 mg by mouth every morning ampicillin (PRINCIPEN) 500 mg capsuleIndicatio ns:Recurrent UTI Take 1 capsule (500 mg total) by mouth every 6 (six) hours for 7 days 28 capsule 01/08/2023 01/15/2023 acidophilus-pect in, citrus 100 million cell-10 mg capsuleIndicatio ns:gut health Take 1 capsule by mouth every morning Not taking 07/20/2023 aspirin 81 mg enteric coated tablet Take 1 tablet (81 mg total) by mouth daily 02/20/2023 fosfomycin (MONUROL) 3 gram packet TAKE ONE PACKET WEEKLY ON SUNDAY (MIXED DIRECTED) 09/30/2021 01/19/2023 guaiFENesin-code ine (GUAITUSS AC) liquid 100-10 mg/5 mL TAKE 10 ML BY MOUTH EVERY 4 TO 6 HOURS NEEDED FOR COUGH 09/29/2021 03/29/2023 imiquimod (ALDARA) 5 % cream 12/14/2022 03/29/2023 metoprolol XL (TOPROL-XL) 25 mg extended release tablet Take 1 tablet (25 mg total) by mouth every morning 03/03/2022 03/29/2023 phenazopyridine (PYRIDIUM) 100 mg tabletIndication s:Acute cystitis with hematuria Take 1 tablet (100 mg total) by mouth 3 (three) times a day as needed (urinary pain) for up to 6 doses Take After meals 6 tablet 12/31/2021 07/26/2023 Premarin vaginal cream 09/17/2019 03/29/2023 sulfamethoxazole -trimethoprim (BACTRIM DS) 800-160 mg per tablet Take 1 tablet by mouth 2 (two) times a day 10/24/2021 03/29/2023 turmeric root extract 500 mg capsule Take by mouth 07/20/2023 vancomycin (VANCOCIN) 125 mg capsuleIndicatio ns:Clostridioide s difficile infection Take 1 capsule (125 mg total) by mouth 4 (four) times a day 03/29/2023 documented as of this encounter Discharge Disposition Disposition Code Departure Means Destination Discharge to home or self care documented in this encounter Plan of Treatment Not on file documented as of this encounter Procedures Procedure Name Priority Date/Time Associated Diagnosis Comments URINE CULTURE Routine 01/08/2023 10:43 AM CDT Recurrent UTI URINALYSIS AND REFLEX TO MICROSCOPIC Routine 01/08/2023 9:11 AM CDT Recurrent UTI URINALYSIS, MICROSCOPIC ONLY Routine 01/08/2023 9:11 AM CDT Recurrent UTI documented in this [...] growth of clinically insignificant bacterial lu. (.) [facility] Organism AEROCOCCUS URINAE [facility] Organism PLUS GROWTH OF CLINICALLY INSIGNIFICANT LU. [facility] Urine, in and out catheter 01/08/2023 10:43 AM CDT 01/08/2023 12:16 PM CDT Narrative [facility] - 01/09/2023 4:44 PM CDT Testing performed by [facility] ([phone]) us Poncho Melgar MD LAB MICROBIOLOGY - GENERAL ORDERABLES Final Result Performing Organization Address [facility] [place] [address] * (ABNORMAL) Urinalysis, microscopic only (01/08/2023 9:11 AM CDT) WBC, ur >50(A) 0 - 5 /HPF [facility] RBC, ur 6-10(A) 0 - 2 /HPF [facility] Epithelial cells, squamous, ur 1-5 0 - 5 /HPF [facility] Bacteria, ur Trace(A) [facility] Mucous, ur Present(A) [facility] Urine 01/08/2023 9:11 AM CDT 01/08/2023 10:45 AM CDT Poncho Melgar MD LAB URINE ORDERABLES Final Result Performing Organization Address [facility] de Phone Number [facility] [place] [address] * (ABNORMAL) Urinalysis reflex to microscopic (01/08/2023 9:11 AM CDT) Color, ur Yellow Yellow [facility] Clarity, ur Turbid(A) Clear [facility] Specific gravity, ur 1.017 1.003 - 1.030 [facility] pH, urine 5.5 [facility] Comment: Interpretive Data ? Urine pH is affected by diet, medications, systemic acid-base disturbances, and renal tubular function. ??pH may affect urinary stone formation. ??For example, urine pH below 6.0 may help reduce the tendency for calcium phosphate stones and pH greater than 6.0 may reduce the tendency for uric acid stone formation. Source: [employer] Current Interpretive Data was last revised on 2017 Protein, ur ql 1+(A) Negative [facility] Glucose, ur ql Negative Negative [facility] Ketones, ur Negative Negative [facility] Bilirubin, ur Negative Negative [facility] Blood, ur 2+(A) Negative [facility] Urobilinogen, ur <2.0 <2.0 mg/dL [facility] Nitrite, ur Negative Negative [facility] Leukocyte esterase, ur 3+(A) Negative [facility] UA reflex comment Reflex to microscopic UA will be performed. [facility] Urine 01/08/2023 9:11 AM CDT 01/08/2023 10:45 AM CDT us Poncho Melgar MD LAB URINE ORDERABLES Final Result Performing Organization Address City/State/[facility] Co de Phone Number [facility] Department [place] [address] documented in this encounter Visit Diagnoses Diagnosis Recurrent UTI Urinary tract infection, site not specified documented in this encounter Care Teams Home Health Nurse Licensed Practical Relationship Specialty Start Date End Date Phan Garvin MD PCP - General Family Medicine 09/14/22 Phan Garvin MD Family Medicine 09/14/22 documented as of this encounter
--- OUTSIDE RECORDS SUMMARY | 2024-03-15 10:28 | XMS_ITS | Encounter Summary ---
Author Organization [facility] Address [address] [place] [address] Phone Care Team Providers Care Brush Painter Name Role Phone Phan Garvin MD Primary Care Provider [phone] Phan Garvin MD Unavailable [phone] Reason for Visit * OBGYN (Routine) - Closed Specialty Diagnoses / Procedures Referred By Contac t Referred To Contact Diagnoses Complicated UTI (urinary tract infection) History of pelvic surgery Procedures Cystourethroscopy - Poncho Melgar MD [address] [place] [address] Phone: tel: fax: [facility] (All Locations) Referral ID Status Reason Start Date Expiration Date Visits Re quested Visits Authorized [id number] Closed 01/08/2023 02/07/2024 1 1 Encounter Details Date Type Department Care Team (Latest Contact Info) Description 02/09/2023 9:00 AM CHIEF DEPUTY Procedure visit [facility] Obstetrics and Gynecology [address] [facility] Outpatient Health 7th Floor [address] [place] [address] Poncho Melgar MD [address] [place] [address] Lesion of bladder (Primary Dx); Complicated UTI (urinary tract infection); History of pelvic surgery Social History Tobacco Use Types Packs/Day Years Used Date Smoking Tobacco: Never Alcohol Use Standard Drinks/Week Comments Yes 0 (1 standard drink = 0.6 oz pur e alcohol) Comments No Sex and Gender Information Value Date Recorded Sex Assigned at Not on file Legal Sex Female 7:11 PM CHIEF DEPUTY Gender Identity Not on file Sexual Orientation Not on file 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 The patient was positioned in the examination table. Her urethra was prepped with Hibiclens soap and local anesthesia was administered transurethrally. Her bladder was drained with a straight catheter. UA: Recent Results (from the past 6 hour(s)) POCT urinalysis dipstick Collection Time: 02/09/23 9:21 AM Result Value Ref Range Color, Urine, POC Yellow Clarity, ur, POC Clear Clear Glucose, ur, POC Negative Negative MG/DL Bilirubin, ur, POC Negative Negative, Small, Moderate, Large Ketones, ur, POC Negative Negative Specific [place], POC 1.005 1.003 - 1.030 Blood, ur, POC Moderate (A) Negative pH, ur, POC 5.0 5.0 - 8.0 Protein, ur, POC Negative Negative Urobilinogen, urine, POC 0.2 0.2 - 1.0 mg/dL Nitrite, ur, POC Negative Negative Leukocytes, ur, POC Large (A) Negative Lot Number [id number] Cystourethroscopy was performed with a 70 degree cystoscope. The urethra, trigone, dome, anterior, posterior, lateral side cordoba, left and right urethral orifice of the bladder were examined. 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 The patient tolerated the procedure well. She was given a macrobid 100mg for prophylaxis of an UTI. Plan: -Metronidazole for 14 days to see if this improved desquamation. -Limited study, plan for cysto and bx in OR. Attending Attestation: The attending surgeon was present for the entire operation. F DEPUTY documented in this encounter Miscellaneous Notes * Addendum Note - Brielle Aguilar RMA - 02/09/2023 9:00 AM CSTAddended by: BRIELLE AGUILAR on: 02/09/2023 11:38 AM Modules accepted: Orders F DEPUTY documented in this encounter Plan of Treatment Not on file documented as of this encounter Results * (ABNORMAL) Urine culture Urine, in and out catheter (02/09/2023 11:41 AM CHIEF DEPUTY) Report Final Report: Greater than or equal to 100,000 colonies/mL of Enterococcus faecalis 10,000 to 100,000 colonies/mL of Escherichia coli (.) [facility] Organism ENTEROCOCCUS FAECALIS [facility] Organism ESCHERICHIA COLI [facility] Urine, in and out catheter 02/09/2023 11:41 AM CHIEF DEPUTY 02/09/2023 3:38 PM CHIEF DEPUTY Narrative [facility] - 02/11/2023 2:49 PM CHIEF DEPUTY Testing performed by [facility] ([phone]) Organism Antibiotic Method Susceptibility Enterococcus faecalis Daptomycin [...] Final Result Performing Organization Address [facility] Co de Phone Number [facility] Department [place] [address] * (ABNORMAL) Urinalysis reflex to microscopic (02/09/2023 11:41 AM CHIEF DEPUTY) Color, ur Yellow Yellow [facility] Clarity, ur Cloudy(A) Clear [facility] Specific gravity, ur 1.010 1.003 - 1.030 [facility] pH, urine 6.0 [facility] Comment: Interpretive Data ? Urine pH is affected by diet, medications, systemic acid-base disturbances, and renal tubular function. ??pH may affect urinary stone formation. ??For example, urine pH below 6.0 may help reduce the tendency for calcium phosphate stones and pH greater than 6.0 may reduce the tendency for uric acid stone formation. Source: [facility] [employer] Current Interpretive Data was last revised on 2017 Protein, ur ql Negative Negative [facility] Glucose, ur ql Negative Negative [facility] Ketones, ur Negative Negative [facility] Bilirubin, ur Negative Negative [facility] Blood, ur Negative Negative [facility] Urobilinogen, ur <2.0 <2.0 mg/dL [facility] Nitrite, ur Negative Negative [facility] Leukocyte esterase, ur 3+(A) Negative [facility] UA reflex comment Reflex to microscopic UA will be performed. [facility] Urine, in and out catheter 02/09/2023 11:41 AM CHIEF DEPUTY 02/09/2023 3:08 PM CHIEF DEPUTY Poncho Melgar MD LAB URINE ORDERABLES Final Result Performing Organization Address [facility] Co de Phone Number [facility] Department [place] [address] documented in this encounter Visit Diagnoses Diagnosis Lesion of bladder- Primary Unspecified disorder of bladder Complicated UTI (urinary tract infection) History of pelvic surgery Complicated UTI (urinary tract infection) documented in this encounter Orders Procedure Count Last Ordered Date First Orde red Date CYSTOURETHROSCOPY 1 02/09/2023 documented in this encounter Care Teams Brush Painter Relationship Specialty Start Date End Date Phan Garvin MD PCP - General Family Medicine 09/14/22 Phan Garvin MD Family Medicine 09/14/22 documented as of this encounter
--- OUTSIDE RECORDS SUMMARY | 2024-03-15 10:28 | XMS_ITS | Encounter Summary ---
Author Organization [facility] Address [address] [place] [address] Phone Care Team Providers Care Coating Machine Feeder Name Role Phone Phan Garvin MD Primary Care Provider [phone] Phan Garvin MD Unavailable [phone] Reason for Visit * Reason Onset Date Comments Scheduling Appointments 01/10/2023 Encounter Details Date Type Department Care Team (Late st Contact Info) Description 01/10/2023 Telephone [facility] Obstetrics and Gynecology [address] [facility] Outpatient Health 7th Floor [address] [place] [address] Mitra Malone, MATY [address] OBGYN PELVIC MED/RECONSTRUCT SURG, [facility] [address] [place] [address] Scheduling Appointments Social History Tobacco Use Types Packs/Day Years Used Date Smoking Tobacco: Never Alcohol Use Standard Drinks/Week Comments Yes 0 (1 standard drink = 0.6 oz pur e alcohol) Comments No Sex and Gender Information Value Date Recorded Sex Assigned at Not on file 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 UACX order sent to [facility] as requested by patient. * Telephone Encounter - Fernando Gita - 01/10/2023 1:01 PM CDT Please send UA to [facility] documented in this encounter Plan of Treatment Scheduled Orders Name Type Priority Associated Diagnoses Orde r Schedule Urine culture Urine, clean voided Microbiology Routine Frequent UTI Expected: 01/10/2023, Expires: 01/11/2024 documented as of this encounter Visit Diagnoses Diagnosis Frequent UTI- Primary Urinary tract infection, site not specified documented in this encounter Care Teams Coating Machine Feeder Relationship Specialty Start Date End Date Phan Garvin MD PCP - General Family Medicine 09/14/22 Phan Garvin MD Family Medicine 09/14/22 documented as of this encounter
--- OUTSIDE RECORDS SUMMARY | 2024-03-15 10:28 | XMS_ITS | Encounter Summary ---
Author Organization [facility] Address [address] [place] [address] Phone Care Team Providers Care Bit Welder Name Role Phone Phan Garvin MD Primary Care Provider [phone] Phan Garvin MD Unavailable [phone] Reason for Visit * Reason Comments Procedure * Consultation (Routine) - Closed Specialty Diagnoses / Procedures Referred By Contac t Referred To Contact Urogynecology Diagnoses Frequent UTI Referral, Self [facility] (All Locations) Referral ID Status Reason Start Date Expiration Date V isits Requested Visits Authorized [id number] Closed Specialty Services Required 09/29/2022 10/29/2023 1 12 Encounter Details Date Type Department Care Team (Latest Contact Info) Description 02/09/2023 8:00 AM SPOOL CLEANER HAND Procedure visit [facility] Obstetrics and Gynecology [address] [place] [address] Outpatient Health 7th Floor [address] [place] [address] Recurrent UTI (Primary Dx); Complicated UTI (urinary tract infection); History of pelvic surgery; Lesion of bladder Social History Tobacco Use Types Packs/Day Years Used Date Smoking Tobacco: Never Tobacco Cessation:Counseling Given: Not Answered Alcohol Use Standard Drinks/Week Comments Yes 0 (1 standard drink = 0.6 oz pur e alcohol) Comments No Sex and Gender Information Value Date Recorded Sex Assigned at Not on file Legal Sex Female 7:11 PM SPOOL CLEANER HAND Gender Identity Not on file Sexual Orientation Not on file 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 file Not on file Not on file documented as of this encounter Last Filed Vital Signs Vital Sign Reading Time Taken Comments Blood Pressure 164/84 02/09/2023 8:09 AM SPOOL CLEANER HAND Pulse - - Temperature - - Respiratory Rate - - Oxygen Saturation - - Inhaled Oxygen Concentration - - Weight 72.2 kg (159 lb 3.2 oz) 02/09/2023 8:09 A M SPOOL CLEANER HAND Height 160 cm (5' 3 ) 02/09/2023 8:09 AM SPOOL CLEANER HAND Body Mass Index 28.2 02/09/2023 8:09 AM SPOOL CLEANER HAND documented in this encounter Ordered Prescriptions Prescription Sig Dispense Quantity Refills Last Filled Start Date End Date metroNIDAZOLE (FLAGYL) 500 mg tablet Take 1 tablet (500 mg total) by mouth 2 (two) times a day for 7 days 14 tablet 02/09/2023 02/16/2023 documented in this encounter Procedure Notes * Poncho Melgar MD - 02/09/2023 8:00 AM CST Ordering provider: Poncho Melgar MD Indication: 1. Complicated UTI (urinary tract infection) 2. 3. History of pelvic surgery Refractory UUI Diagnosis: 1. Abnormal sensation (Delayed 1st Urge) 2. NORM (only at BLT=771 mls, cough) 3. DO at 400mls 4. Incomplete bladder emptying 5. Dysfunctional voiding Non-Instrumented uroflow (NIF): Qmax: 3.9 ml/sec Qmean: 2 ml/sec Flow Pattern: prolonged, intermittent, and low amplitude Voided Volume: 24 ml PVR: 380 ml Recent Results (from the past 6 hour(s)) POCT urinalysis dipstick Collection Time: 02/09/23 9:21 AM Result Value Ref Range Color, Urine, POC Yellow Clarity, ur, POC Clear Clear Glucose, ur, POC Negative Negative MG/DL Bilirubin, ur, POC Negative Negative, Small, Moderate, Large Ketones, ur, POC Negative Negative Specific [place], POC 1.005 1.003 - 1.030 Blood, ur, POC Moderate (A) Negative pH, ur, POC 5.0 5.0 - 8.0 Protein, ur, POC Negative Negative Urobilinogen, urine, POC 0.2 0.2 - 1.0 mg/dL Nitrite, ur, POC Negative Negative Leukocytes, ur, POC Large (A) Negative Lot Number [id number] Cystometrogram: Using 7F water filled catheters the bladder was filled at 50ml/min. Test performed in sitting position at 45 deg. Prolapse: No Reduction method: N/A First sensation: 9 ml DO: DO at 400 mls First urge: 231 ml Strong urge: 401 ml LONG TERM: Not met EMG activity:Appropriate activity with filling/cough/valsalva Stress testing @ 150 ml Cough: No Leak Valsalva: No Leak 300 ml Cough: No Leak Valsalva: No Leak 405 ml Large Leak - DO Pressure-Flow study: Voided vol: 83 ml Max flow rate: 7.1 ml/sec Det pressure at max flow: 41 cmH20 Flow Pattern: prolonged, intermittent, and low amplitude Voiding mechanism: Mixed EMG activity: Abnormal activity during void Catheterized PVR: 400 ml L CLEANER HAND documented in this encounter Plan of Treatment Not on file documented as of this encounter Procedures Procedure Name Priority Date/Time Associated Diagnosis Comments POCT URINALYSIS DIPSTICK Routine 02/09/2023 9:21 AM SPOOL CLEANER HAND Complicated UTI (urinary tract infection) History of pelvic surgery URODYNAMICS 02/09/2023 9:17 AM SPOOL CLEANER HAND documented in this encounter Results * (ABNORMAL) POCT urinalysis dipstick (02/09/2023 9:21 AM SPOOL CLEANER HAND) Color, Urine, POC Yellow Clarity, ur, POC Clear Clear Glucose, ur, POC Negative Negative MG/DL Bilirubin, ur, POC Negative Negative, Small, Moderate, Large Ketones, ur, POC Negative Negative Specific [place], POC 1.005 1.003 - 1.030 Blood, ur, POC Moderate(A) Negative pH, ur, POC 5.0 5.0 - 8.0 Protein, ur, POC Negative Negative Urobilinogen, urine, POC 0.2 0.2 - 1.0 mg/dL Nitrite, ur, POC Negative Negative Leukocytes, ur, POC Large(A) Negative Lot Number [id number] Urine 02/09/2023 9:21 AM SPOOL CLEANER HAND us Poncho Melgar MD POINT OF CARE TEST ORDERABL ES Final Result * URODYNAMICS (02/09/2023 9:17 AM SPOOL CLEANER HAND) us Poncho Melgar MD PROCEDURE ORDERABLES Fin al Result documented in this encounter Visit Diagnoses Diagnosis Recurrent UTI- Primary Urinary tract infection, site not specified Complicated UTI (urinary tract infection) History of pelvic surgery Lesion of bladder Unspecified disorder of bladder documented in this encounter Orders Procedure Count Last Ordered Date First Orde red Date CYSTOMETROGRAM 1 02/09/2023 Case Request Count Last Ordered Date First Orde red Date CASE REQUEST OPERATING ROOM 1 02/09/2023 documented in this encounter Care Teams Bit Welder Relationship Specialty Start Date End Date Phan Garvin MD PCP - General Family Medicine 09/14/22 Phan Garvin MD Family Medicine 09/14/22 documented as of this encounter
--- OUTSIDE RECORDS SUMMARY | 2024-03-15 10:28 | XMS_ITS | Encounter Summary ---
Author Organization [facility] Address [address] [place] [address] Phone Care Team Providers Care Aircraft Charter Dispatcher Name Role Phone Phan Garvin MD Primary Care Provider [phone] Phan Garvin MD Unavailable [phone] Encounter Details Date Type Department Care Team (Late st Contact Info) Description 01/08/2023 Telephone [facility] Obstetrics and Gynecology [address] [facility] 7th Floor [address] [place] [address] Maria Esther Brown, RN Social History Tobacco Use Types Packs/Day Years Used Date Smoking Tobacco: Never Alcohol Use Standard Drinks/Week Comments Yes 0 (1 standard drink = 0.6 oz pur e alcohol) Comments No Sex and Gender Information Value Date Recorded Sex Assigned at Not on file Legal Sex Female 7:11 PM [employer] 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 Order sent. documented in this encounter Plan of Treatment Not on file documented as of this encounter Visit Diagnoses Not on filedocumented in this encounter Care Teams Aircraft Charter Dispatcher Relationship Specialty Start Date End Date Phan Garvin MD PCP - General Family Medicine 09/14/22 Phan Garvin MD Family Medicine 09/14/22 documented as of this encounter
--- OUTSIDE RECORDS SUMMARY | 2024-03-15 10:28 | XMS_ITS | Encounter Summary ---
Author Organization [facility] Address [address] [facility] [address] [place] [address] Care Team Providers Care Station Supervisor Name Role Phone Phan Garvin MD Primary Care Provider Reason for Referral * Diagnostic Imaging (Routine) - Closed Specialty Diagnoses / Procedures Referred By Dacia tan Referred To Contact Diagnoses New onset atrial fibrillation (CMS/HCC) (HCC) Procedures NM MPI SPECT (Rest and/or Stress) Multiple Studies Payal Kasper NP [address] [address] Phone: tel: fax: [facility] Referral ID Status Reason Start Date Expiration Date Visits Re quested Visits Authorized [id number] Closed 04/03/2022 09/30/2022 1 1 ECT ENGINEERING MANAGER Reason for Visit * Reason Comments Follow-up 1 mo Encounter Details Date Type Department Care Team (Late st Contact Info) Description 03/21/2022 10:30 AM PROJECT ENGINEERING MANAGER Office Visit [facility] Cardiology [address] [address] Payal Kasper NP [address] [facility] [address] [address] New onset atrial fibrillation (CMS/HCC) (HCC) (Primary Dx); Hypothyroidism, unspecified type; Gross hematuria; Sleep disorder, unspecified; Hospital discharge follow-up Social History Tobacco Use Types Packs/Day Years Used Date Smoking Tobacco: Never Tobacco Cessation:Counseling Given: Not Answered Alcohol Use Standard Drinks/Week Comments Yes 0 (1 standard drink = 0.6 oz pur e alcohol) Comments Unknown Sex and Gender Information Value Date Recorded Sex Assigned at Not on file Legal Sex Female 7:11 PM PROJECT ENGINEERING MANAGER Gender Identity Not on file Sexual Orientation Not on file 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 Not on file Not on file Not on file documented as of this encounter Last Filed Vital Signs Vital Sign Reading Time Taken Comments Blood Pressure 128/76 03/21/2022 10:40 AM PROJECT ENGINEERING MANAGER Pulse 72 03/21/2022 10:40 AM PROJECT ENGINEERING MANAGER Temperature - - Respiratory Rate - - Oxygen Saturation 98% 03/21/2022 10:40 AM PROJECT ENGINEERING MANAGER Inhaled Oxygen Concentration - - Weight 76.7 kg (169 lb) 03/21/2022 10:40 AM PROJECT ENGINEERING MANAGER Height 160 cm (5' 3 ) 03/21/2022 10:40 AM PROJECT ENGINEERING MANAGER Body Mass Index 29.94 03/21/2022 10:40 AM PROJECT ENGINEERING MANAGER documented in this encounter Progress Notes * Payal Kasper NP - 03/21/2022 10:30 AM CST Images from the original note were not included. [facility] Cardiology [address] [place] [address] Date of Visit: 03/21/2022 Patient ID: Israel Jean 1940 Chief Complaint Patient presents with Follow-up 1 mo Israel Jean is a 81 y.o. female who comes to the office for a hospital follow up after she was diagnosed with new onset atrial fibrillation. History of Present Illness: Israel Jean is a 81 y.o. female with a past medical history of recurrent UTIs with hematuria. Apparently over the past 4 years she is had multiple UTIs, she estimates about 40. She presented to [facility] on 03/01/2022 with complaint of chest pain. She had a sudden onset central chest pressure that spread to the left arm. She was found to be in AFib with RVR, heart rate in the 140s. Troponin was negative. TSH was slightly elevated. She converted with IV Cardizem. Dr. Jennings met her in consultation. She had an echo and was started on metoprolol and Eliquis. She was also started on levothyroxine. Echocardiogram showed mild LVH with grade 1 diastolic dysfunction, mild LAE, calcified mitral valve but only trivial regurgitation, PASP 40 mmHg. She called the office about a week after discharge with complaint of gross hematuria. The hematuriawould resolve if she would hold the Eliquis but as soon as she would restarted she would have hematuria again after the 2nd dose of Eliquis. Dr. Jennings advised over the phone for her to stop the Eliquis. She then became concerned about her risk of stroke without anticoagulation and so she asked for a sooner follow-up visit in the office. 03/21/2022 Hospital follow-up with MATY Jean comes to the office today for a hospitalfollow up visit. When she stopped the Eliquis she decided to start aspirin 81 mg daily. She has been on that about 5 days now. She has no visible blood in the urine. A urinalysis collected a few daysago still showed microscopic blood. She still feels a little pressure in the center of her chest but she has not particularly noticed that this is related to exertion. She is taking the levothyroxineand asked about rechecking her thyroid. She has never been tested for sleep apnea but she does snore quite loudly and wakes up frequently at night. Records that I personally reviewed on the day of this visit include: (the interpretation is outlined in the HPI above) Records from the above mentioned hospital admission. I have also reviewed: allergies, current medications, past family history, past medical history, past social history, past surgical history and problem list Medical History: Past Medical History: Diagnosis Date Hypercholesteremia Osteoporosis Past Surgical History: Procedure Laterality Date BACK SURGERY BLADDER SURGERY Social History Tobacco Use Smoking Status Never Smokeless Tobacco Not on file Social History Tobacco Use Smoking status: Never Smokeless tobacco: None Substance and Sexual Activity Drug use: Never Sexual activity: None Alcohol Use: Not on file Family History Problem Relation Age of Onset Arthritis Mother Cancer Mother Heart disease Father Review of Systems Constitutional: Negative for diaphoresis, fever, malaise/fatigue, weight gain and weight loss. HENT: Negative for hearing loss. Eyes: Negative for visual disturbance. Cardiovascular: Negative for chest pain, claudication, dyspnea on exertion, leg swelling, orthopnea, palpitations, paroxysmal nocturnal dyspnea and syncope. Respiratory: Negative for cough, hemoptysis, shortness of breath, snoring and wheezing. Hematologic/Lymphatic: Does not bruise/bleed easily. Skin: Negative for poor wound healing and rash. Musculoskeletal: Negative for joint pain and myalgias. Gastrointestinal: Negative for heartburn, nausea and vomiting. Genitourinary: Negative for hematuria. Neurological: Negative for dizziness, headaches and light-headedness. Psychiatric/Behavioral: Negative for depression. The patient is not nervous/anxious. Vital Signs: BP 128/76 (BP Location: Left arm, Patient Position: Sitting) Pulse 72 Ht 160 cm (5' 3 ) Wt 76.7 kg (169 lb) SpO2 98% BMI 29.94 kg/m?? Physical Exam Constitutional: General: She is not in acute distress. Appearance: She is well-developed. HENT: Head: Normocephalic and atraumatic. Nose: Comments: Wearing a mask Eyes: General: No scleral icterus. Conjunctiva/sclera: Conjunctivae normal. Neck: Vascular: No JVD. Trachea: No tracheal deviation. Cardiovascular: Rate and Rhythm: Normal rate and regular rhythm. Heart sounds: Normal heart sounds. No murmur heard. Pulmonary: Effort: Pulmonary effort is normal. No respiratory distress. Breath sounds: Normal breath sounds. Skin: General: Skin is warm and dry. Neurological: Mental Status: She is alert and oriented to person, place, and time. Psychiatric: Mood and Affect: Mood normal. Behavior: Behavior normal. Allergies Allergen Reactions Prednisone Rash Current Outpatient Medications: ascorbic acid (ascorbic acid with den hips) 500 mg tablet,chewable, , Disp: , Rfl: aspirin 81 mg enteric coated tablet, Take 81 mg by mouth daily, Disp: , Rfl: cholecalciferol (Vitamin D3) 2000 unit capsule, 2,000 Units, Disp: , Rfl: cranberry 400 mg capsule, Take by mouth, Disp: , Rfl: turmeric root extract 500 mg capsule, Take by mouth, Disp: , Rfl: vit C,K-Vf-nlszt-lutein-zeaxan (PreserVision AREDS-2) 250-90-40-1 mg capsule, Take by mouth, Disp: , Rfl: zinc 50 mg tablet, Take by mouth, Disp: , Rfl: fosfomycin (MONUROL) 3 gram packet, TAKE ONE PACKET WEEKLY ON SUNDAY (MIXED DIRECTED) (Patientnot taking: Reported on 03/21/2022), Disp: , Rfl: guaiFENesin-codeine (GUAITUSS AC) liquid 100-10 mg/5 mL, TAKE 10 ML BY MOUTH EVERY 4 TO 6 HOURS NEEDED FOR COUGH (Patient not taking: Reported on 03/21/2022), Disp: , Rfl: levothyroxine (SYNTHROID) 25 mcg tablet, TAKE 1 TABLET BY MOUTH DAILY AT 6.30 AM, Disp: , Rfl: metoprolol XL (TOPROL-XL) 25 mg extended release tablet, Take 25 mg by mouth every morning, Disp: ,Rfl: phenazopyridine (PYRIDIUM) 100 mg tablet, Take 1 tablet (100 mg total) by mouth 3 (three) times a day as needed (urinary pain) for up to 6 doses Take After meals (Patient not taking: Reported on 03/21/2022), Disp: 6 tablet, Rfl: 0 Premarin vaginal cream, , Disp: , Rfl: rosuvastatin (CRESTOR) 10 mg tablet, , Disp: , Rfl: sulfamethoxazole-trimethoprim (BACTRIM DS) 800-160 mg per tablet, Take 1 tablet by mouth 2 (two) times a day (Patient not taking: Reported on 03/21/2022), Disp: , Rfl: No results found for: POTASSIUM, BUNSER, CREATININE, CHOL, TRIG, LDL, LDLCALC, HDL No results found for: WBC, HGB, HCT, MCV, PLT No results found for this or any previous visit (from the past 4 hour(s)). Assessment: Diagnoses and all orders for this visit: New onset atrial fibrillation (CMS/HCC) (HCC) (Primary) - PSG; Future - NM MPI SPECT (Rest and/or Stress) Multiple Studies; Future Hypothyroidism, unspecified type Gross hematuria Sleep disorder, unspecified - PSG; Future Hospital discharge follow-up Plan/Recommendations: She was hospitalized last month with new onset atrial fibrillation. She converted back to sinus rhythm after IV Cardizem and is maintaining sinus rhythm right now. I suggested using an [employer] tomonitor her heart rhythm. Continue metoprolol. To further evaluate her AFib I recommend a sleep study because of the risk factor she has for sleepapnea that include snoring and waking frequently at night. Because she presented in AFib with a central chest pressure that radiated down the left arm I recommend an ischemic evaluation by means of Lexiscan nuclear stress test. I advised her to follow-up with PCP about rechecking her TSH. Because of the gross hematuria remain off Eliquis and continue aspirin 81 mg daily. Continue workupwith urologist and Infectious Disease. I advised her it is okay to keep her 1 week trip to [place] scheduled and [address] [facility]. Return to the office to see Dr. Jennings in about 6-8 weeks. Call us sooner with questions or concerns. My total encounter time on 03/21/2022 was 50 minutes which was spent in the activities documented inthe note. This includes time spent prior to the visit and after the visit in direct care of the patient. This time does not include time spent in any separately reportable services. 03/21/2022 CONTRERAS Kelsey-ZULAY Nurse Practitioner with [facility] Cardiology This note is dictated and transcribed using [employer] Direct Software. Irrigation Technician variancesmay occur. Despite proofreading, typographical errors may occur. ECT ENGINEERING MANAGER documented in this encounter Plan of Treatment Not on file documented as of this encounter Results * NM MPI SPECT (Rest and/or Stress) Multiple Studies (04/06/2022 9:50 AM PROJECT ENGINEERING MANAGER) Anatomical Region Laterality Modality Body N/A Nuclear Medicine 04/06/2022 8:26 AM PROJECT ENGINEERING MANAGER Narrative 04/06/2022 11:54 AM PROJECT ENGINEERING MANAGER [facility] Cardiology [address] [facility] [address], [place] [address] [address] [facility] [address], [place] [address] P:[phone] P:[phone] MPI Imaging Report Patient Name: ISRAEL JEAN A : 1940 Study Date: 04/06/2022 8:26:41 AM Gender: F Tech: ROSE GREEN Location: [place] Ref.Provider: PAYAL KASPER Height(Cm): 160 BSA: Weight(Kg): 76.7 BMI: 29.96Order Provider: PAYAL KASPER - Physician: Referring Physician: Dr. Garvin. HCG Physician: Siddharth Jennings M.D.,F.A.CKennyC. Interpreting Physician: Rogers Conde M.D. Stress Supervision: Rogers Conde M.D. Procedures: Myocardial perfusion imaging with Tc99M Sestamibi SPECT at rest and stress post regadenoson (Lexiscan) infusion. Indications: Atrial Fibrillation, Chest Pain, Hypertension, and Family Hx CAD. Findings: Procedural Findings: One day rest/stress was used. Tc99m Sestamibi injected IV at rest was 10.0 millicuries. 33.0 millicuries of Tc99M Sestamibi injected IV during Lexiscan stress. Lexiscan 0.4mg administered IV over 10 seconds. Pharmacologic stress related symptoms and/or side effects during infusion include chest tightness 7/10 . Symptoms were resolved with completion of Lexiscan protocol. Baseline heart rate was 65 BPM. Maximum Heart Rate Achieved was: 82 BPM. Baseline blood pressure was 158/88 mmHg. Post Stress Blood Pressure was 158/84 mmHg. Termination: Protocol complete. Resting ECG: Normal sinus rhythm. Post ECG: No diagnostic ST changes. Arrhythmia: No arrhythmias seen. Perfusion Findings: Abnormal perfusion imaging - see below. Technical quality of study is excellent. Prone imaging was not performed. Left ventricle cavity size at rest is normal. Left ventricle cavity size with stress is unchanged. A TID of 0.81 was automatically calculated. defect 1: Size is small. Severity is mild to moderate in intensity. Location of defect is in the basal anteroseptal segment and mid anteroseptal segment. Reversibility is not present, defect is fixed. Type of defect is most likely attenuation artifact. Artifact noted from breast attenuation. LV Function: Global left ventricular function is normal. Left ventricular ejection fraction is 74 %. Conclusions: Global left ventricular function is normal. Left ventricular ejection fraction is 74 %. Negative EKG portion of stress test. There is a small area of mild to moderate anteroseptal perfusion defect seen at both stress and rest imaging likely related to breast attenuation but cannot completely exclude previous infarction. No ischemia. Patient did have 7/10 chest tightness with Lexiscan infusion. Electronically Signed By: Isidro Conde MD 2022-04-06 11:54:25 PROJECT ENGINEERING MANAGER Electronically Signed By: Isidro Conde MD 2022-04-06 11:54:25 PROJECT ENGINEERING MANAGER CC: CC: Procedure Note Isidro Conde MD - 04/06/2022 [facility] Cardiology [address], [place] [address] [address] [facility] [address], [place] [address] P:[phone] P:[phone] MPI Imaging Report Patient Name: ISRAEL JEAN APatient ID: [id number] : [id number] Date: 04/06/2022 8:26:41 AM Gender: FAccession #: [id number] Tech: , MTLocation: [place] Ref.Provider: PAYAL KASPERHeight(Cm): 160 BSA: Weight(Kg): 76.7 BMI: 29.96Order Provider: PAYAL KASPER - Physician: Referring Physician: Dr. Garvin. HCG Physician: Siddharth Jennings M.D.,F.A.C.C. Interpreting Physician: Rogers Conde M.D. Stress Supervision: Christian Flores Procedures: Myocardial perfusion imaging with Tc99M Sestamibi SPECT at rest and stresspost regadenoson (Lexiscan) infusion. Indications: Atrial Fibrillation, Chest Pain, Hypertension, and Family Hx CAD. Findings: Procedural Findings: One day rest/stress was used. Tc99m Sestamibi injected IV at rest was 10.0millicuries. 33.0 millicuries of Tc99M Sestamibi injected IV during Lexiscan stress.Lexiscan 0.4mg administered IV over 10 seconds. Pharmacologic stress related symptomsand/or side effects during infusion include chest tightness 7/10 . Symptoms wereresolved with completion of Lexiscan protocol. Baseline heart rate was 65 BPM. MaximumHeart Rate Achieved was: 82 BPM. Baseline blood pressure was 158/88 mmHg. Post StressBlood Pressure was 158/84 mmHg. Termination: Protocol complete. Resting ECG: Normal sinus rhythm. Post ECG: No diagnostic ST changes. Arrhythmia: No arrhythmias seen. Perfusion Findings: Abnormal perfusion imaging - see below. Technical quality of study isexcellent. Prone imaging was not performed. Left ventricle cavity size at rest is normal.Left ventricle cavity size with stress is unchanged. A TID of 0.81 was automaticallycalculated. defect 1: Size is small. Severity is mild to moderate in intensity. Location ofdefect is in the basal anteroseptal segment and mid anteroseptal segment. Reversibility isnot present, defect is fixed. Type of defect is most likely attenuation artifact.Artifact noted from breast attenuation. LV Function: Global left ventricular function is normal. Left ventricular ejectionfraction is 74 %. Conclusions: Global left ventricular function is normal. Left ventricular ejectionfraction is 74 %. Negative EKG portion of stress test. There is a small area of mild to moderate anteroseptal perfusion defectseen at both stress and rest imaging likely related to breast attenuation but cannotcompletely exclude previous infarction. No ischemia. Patient did have 7/10 chest tightness with Lexiscan infusion. Electronically Signed By: Isidro Conde MD 2022-04-06 11:54:25 PROJECT ENGINEERING MANAGER Electronically Signed By: Isidro Conde MD 2022-04-06 11:54:25 PROJECT ENGINEERING MANAGER CC: CC: Payal Kasper SLD EDUCATIONAL AIDE IMG NM PROCEDURES Final R esult documented in this encounter Visit Diagnoses Diagnosis New onset atrial fibrillation (CMS/HCC) (HCC)- Primary Atrial fibrillation Hypothyroidism, unspecified type Gross hematuria Sleep disorder, unspecified Hospital discharge follow-up Other follow-up examination New onset atrial fibrillation (CMS/HCC) (HCC) Atrial fibrillation documented in this encounter Historical Medications * This list may reflect changes made after this encounter. vit C,A-Us-dmayc-lute in-zeaxan (PreserVision AREDS-2) 250-90-40-1 mg capsuleIndication s:eye vitamin Take 1 capsule by mouth 2 (two) times a day cranberry 400 mg capsuleIndication s:urinary health Take 800 mg by mouth every morning zinc 50 mg tabletIndications :supplement Take 50 mg by mouth every morning ascorbic acid (VITAMIN C) 500 mg tablet,chewableIn dications:supplem ent Take 1 tablet/chew tab (500 mg total) by mouth every morning cholecalciferol (VITAMIN D-3) 2000 unit capsuleIndication s:Vitamin D Deficiency Take 1 capsule (2,000 Units total) by mouth every morning levothyroxine (SYNTHROID) 25 mcg tabletIndications :hypothyroidism Take 1 tablet (25 mcg total) by mouth every morning 03/03/2022 aspirin 81 mg enteric coated tablet Take 1 tablet (81 mg total) by mouth daily 02/20/2023 turmeric root extract 500 mg capsule Take by mouth 07/20/2023 metoprolol XL (TOPROL-XL) 25 mg extended release tablet Take 1 tablet (25 mg total) by mouth every morning 03/03/2022 03/29/2023 added in this encounter Care Teams Station Supervisor Relationship Specialty Start Date End Date Phan Garvin MD PCP - General Family Medicine 03/13/21 09/13/22 documented as of this encounter
--- OUTSIDE RECORDS SUMMARY | 2024-03-15 10:28 | XMS_ITS | Encounter Summary ---
Author Organization [facility] Address [address] [place] [address] Phone Care Team Providers Care Catalogue Librarian Name Role Phone Phan Garvin MD Primary Care Provider [phone] Phan Garvin MD Unavailable [phone] Reason for Visit * Reason Onset Date Comments UACX result 01/29/2023 Encounter Details Date Type Department Care Team (Late st Contact Info) Description 01/29/2023 Telephone [facility] Obstetrics and Gynecology [facility] Outpatient Health 7th Floor [address] [place] [address] Alyson Brown RN UACX result Social History Tobacco Use Types Packs/Day Years Used Date Smoking Tobacco: Never Alcohol Use Standard Drinks/Week Comments Yes 0 (1 standard drink = 0.6 oz pur e alcohol) Comments No Sex and Gender Information Value Date Recorded Sex Assigned at Not on file Legal Sex Female 7:11 PM BACK SEWER Gender Identity Not on file Sexual Orientation Not on file 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 Not on file Not on file documented as of this encounter Ordered Prescriptions Prescription Sig Dispense Quantity Refills Last Filled Start Date End Date nitrofurantoin monohydrate (MACROBID) 100 mg capsule Take 1 capsule (100 mg total) by mouth 2 (two) times a day for 10 days 20 capsule 01/29/2023 3 documented in this encounter Miscellaneous Notes * Addendum Note - Alyson Brown RN - 01/29/2023 10:28 AM CSTAddended by: ALYSON BROWN on: 01/29/2023 10:28 AM Modules accepted: Orders SEWER * Telephone Encounter - Alyson Brown RN - 01/29/2023 10:25 AM BACK SEWER Call received from patient and reviewed UACX result and antibiotic instructions. Patient very upsetthat she continues to have UTI Began crying. She has appt 02/09/23 for UDS/Cysto. Will have SHANNAN donefollowing 10 days of antibiotic. SEWER * Telephone Encounter - Alyson Brown RN - 01/29/2023 9:04 AM CST LMTC SEWER * Telephone Encounter - Alyson Brown RN - 01/29/2023 9:03 AM CST ----- Message from Poncho Melgar MD sent at 01/28/2023 8:55 PM BACK SEWER ----- Please offer macrobid 100mg po bid x 10 days. SHANNAN upon completion. SEWER documented in this encounter Plan of Treatment Scheduled Orders Name Type Priority Associated Diagnoses Orde r Schedule Urine culture Urine, clean voided Microbiology Routine Recurrent UTI Expected: 01/29/2023, Expires: 01/30/2024 documented as of this encounter Visit Diagnoses Diagnosis Recurrent UTI- Primary Urinary tract infection, site not specified documented in this encounter Care Teams Catalogue Librarian Relationship Specialty Start Date End Date Phan Garvin MD PCP - General Family Medicine 09/14/22 Phan Garvin MD Family Medicine 09/14/22 documented as of this encounter
--- OUTSIDE RECORDS SUMMARY | 2024-03-15 10:28 | XMS_ITS | Encounter Summary ---
Author Organization [facility] Address [address] [place] [address] Care Team Providers Care Help Desk Consultant Name Role Phone Phan Garvin MD Primary Care Provider Reason for Visit * Reason Comments Atrial Fibrillation 3 month follow up. Encounter Details Date Type Department Care Team (Late st Contact Info) Description 08/15/2022 11:00 AM CDT Office Visit [facility] Cardiology [address] [address] Siddharth Jennings MD [address] [facility] [address] [place] [address] Paroxysmal atrial fibrillation (CMS/HCC) (HCC) (Primary Dx) Social History Tobacco Use Types Packs/Day Years Used Date Smoking Tobacco: Never Tobacco Cessation:Counseling Given: Not Answered Alcohol Use Standard Drinks/Week Comments Yes 0 (1 standard drink = 0.6 oz pur e alcohol) Comments Unknown Sex and Gender Information Value Date Recorded Sex Assigned at Not on file Legal Sex Female 7:11 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 Gender Identity Not on file Sexual Orientation Not on file 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 Not on file Not on file Not on file documented as of this encounter Last Filed Vital Signs Vital Sign Reading Time Taken Comments Blood Pressure 148/84 08/15/2022 10:58 AM CDT Pulse 84 08/15/2022 10:58 AM CDT Temperature - - Respiratory Rate - - Oxygen Saturation 96% 08/15/2022 10:58 AM CDT Inhaled Oxygen Concentration - - Weight 77.6 kg (171 lb) 08/15/2022 10:58 AM CDT Height 160 cm (5' 3 ) 08/15/2022 10:58 AM CDT Body Mass Index 30.29 08/15/2022 10:58 AM CDT documented in this encounter Progress Notes * Siddharth Jennings MD - 08/15/2022 11:00 AM CDT [facility] 08/15/2022 Rohini Peralta is a 81 y.o. female who presents for follow up of atrial fibrillation. This is apatient that I saw in consultation at [facility] in February of 2022 when she came [...] some left ventricular hypertrophywith normal systolic function. Subsequently the patient's systemic anticoagulation had to be discontinued because she developed gross hematuria. Despite several evaluations by urologists no specific explanation for this was able to be determined. She has been taking metoprolol and was maintaining sinus rhythm. She presents today for scheduled 3 month follow-up appointment. She continues to take a low-dose ofmetoprolol. She has no cardiovascular complaints or concerns. She is still maintaining sinus rhythm. Her principal health problem continues to be that of frequent urinary infections as she is commonly on antibiotics for this. REVIEW OF SYSTEMS General ROS: negative for [...] by mouth daily, Disp: , Rfl: ??? cefdinir (OMNICEF) 300 mg capsule, TAKE 1 CAPSULE BY MOUTH TWICE A DAY FOR 10 DAYS, Disp: , Rfl: ??? cholecalciferol (VITAMIN D-3) [...] by mouth, Disp: , Rfl: ??? vit C,G-En-ojbue-lutein-zeaxan (PreserVision AREDS-2) 250-90-40-1 mg capsule, Take by [...] for component: LABALBU PHYSICAL EXAM Vitals BP 148/84 (BP Location: Left arm, Patient Position: Sitting) Pulse 84 Ht 160 cm (5' 3 ) Wt 77.6 kg (171 lb) SpO2 96% BMI 30.29 kg/m?? Physical Examination: General appearance [...] now seems to be maintaining sinus rhythm. As detailed previously she is a poor candidate for anticoagulation because of recurrent gross hematuria Follow-up with me 3 months or p.r.n. Siddharth Jennings MD documented in this encounter Plan of Treatment Not on file documented as of this encounter Visit Diagnoses Diagnosis Paroxysmal atrial fibrillation (CMS/HCC) (HCC)- Primary Atrial fibrillation documented in this encounter Historical Medications * This list may reflect changes made after this encounter. cefdinir (OMNICEF) 300 mg capsule TAKE 1 CAPSULE BY MOUTH TWICE A DAY FOR 10 DAYS 08/12/2022 01/08/2023 added in this encounter Care Teams Help Desk Consultant Relationship Specialty Start Date End Date Phan Garvin MD PCP - General Family Medicine 03/13/21 09/13/22 documented as of this encounter
--- OUTSIDE RECORDS SUMMARY | 2024-03-15 10:28 | XMS_ITS | Encounter Summary ---
Author Organization [facility] Address [address] [place] [address] Phone Care Team Providers Care Statistical Analyst Name Role Phone Phan Garvin MD Primary Care Provider [phone] Phan Garvin MD Unavailable [phone] Encounter Details Date Type Department Care Team (Late st Contact Info) Description 01/09/2023 Telephone [facility] Obstetrics and Gynecology [address] [facility] [facility] [address] 7th [address] [place] [address] Maria Esther Brown, RN Social History Tobacco Use Types Packs/Day Years Used Date Smoking Tobacco: Never Alcohol Use Standard Drinks/Week Comments Yes 0 (1 standard drink = 0.6 oz pur e alcohol) Comments No Sex and Gender Information Value Date Recorded Sex Assigned at Not on file Legal Sex Female 7:11 PM 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 Patient wanting to review list of meds on After Visit Summary. After review, patientis taking Ampicillin, VET, Vit C, ASA, Vit D3, levothyroxine, metoprolol, cranberry and ASA. She would like to have PFPT order sent to [facility] @ [phone]. Order faxed. documented in this encounter Plan of Treatment Not on file documented as of this encounter Visit Diagnoses Not on filedocumented in this encounter Care Teams Statistical Analyst Relationship Specialty Start Date End Date Phan Garvin MD PCP - General Family Medicine 09/14/22 Phan Garvin MD Family Medicine 09/14/22 documented as of this encounter
--- OUTSIDE RECORDS SUMMARY | 2024-03-15 10:28 | XMS_ITS | Encounter Summary ---
Author Organization [facility] Address [address] [place] [address] Care Team Providers Care Ladies' Hat Trimmer Name Role Phone Phan Garvin MD Primary Care Provider [phone] Reason for Visit * Diagnostic Imaging (Routine) - Closed Specialty Diagnoses / Procedures Referred By Dacia t Referred To Contact Diagnoses New onset atrial fibrillation (CMS/HCC) (HCC) Procedures NM MPI SPECT (Rest and/or Stress) Multiple Studies Sarah Kasper NP [address] [facility] [address] [place] [address] Phone: tel: fax: [facility] Referral ID Status Reason Start Date Expiration Date Visits Re quested Visits Authorized [id number] Closed 04/03/2022 09/30/2022 1 1 Encounter Details Date Type Department Care Team (Latest Contact Info) Description 04/06/2022 8:15 AM TILE CONDUIT LAYER Ancillary Procedure [facility] Cardiology [address] [place] [address] New onset atrial fibrillation (CMS/HCC) (HCC) Social History Tobacco Use Types Packs/Day Years Used Date Smoking Tobacco: Never Alcohol Use Standard Drinks/Week Comments Yes 0 (1 standard drink = 0.6 oz pur e alcohol) Comments Unknown Sex and Gender Information Value Date Recorded Sex Assigned at Not on file Legal Sex Female 7:11 PM TILE CONDUIT LAYER Gender Identity Not on file Sexual Orientation Not on file 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 Not on file Not on file documented as of this encounter Plan of Treatment Not on file documented as of this encounter Procedures Procedure Name Priority Date/Time Associated Diagnosis Comments NM MPI SPECT (REST AND/OR STRESS) MULTIPLE STUDIES Schedule Routine, Read Routine (OP Routine) 04/06/2022 9:50 AM TILE CONDUIT LAYER New onset atrial fibrillation (CMS/HCC) (HCC) documented in this encounter Results * NM MPI SPECT (Rest and/or Stress) Multiple Studies (04/06/2022 9:50 AM TILE CONDUIT LAYER) Anatomical Region Laterality Modality Body N/A Nuclear Medicine 04/06/2022 8:26 AM TILE CONDUIT LAYER Narrative 04/06/2022 11:54 AM TILE CONDUIT LAYER [facility] Cardiology [address] [facility] [address], [place] [address] [address] [facility] [facility] [address], [place] [address] P:[phone] P:[phone] MPI Imaging Report Patient Name: ISRAEL JEAN A : [id number] Study Date: 04/06/2022 8:26:41 AM Gender: F Tech: [facility] Location: [place] Ref.Provider: SARAH KASPER Height(Cm): 160 BSA: Weight(Kg): 76.7 BMI: 29.96Order Provider: SARAH KASPER - Physician: Referring Physician: Dr. Garvin. [...] Signed By: Isidro Conde MD 2022-04-06 11:54:25 TILE CONDUIT LAYER Electronically Signed By: Isidro Conde MD 2022-04-06 11:54:25 TILE CONDUIT LAYER CC: CC: Procedure Note Isidro Conde MD - 04/06/2022 [facility] Cardiology [address] [facility] [address], [place] [address] [address] [facility] [address], [place] [address] P:[phone] P:[phone] MPI Imaging Report Patient Name: ISRAEL JEAN Poornima ID: [id number] : [id number] Date: 04/06/2022 8:26:41 AM Gender: FAccession #: [id number] [facility] [place] Ref.Provider: SARAH KASPERHeight(Cm): 160 BSA: Weight(Kg): 76.7 BMI: 29.96Order Provider: SARAH KASPER - Physician: Referring Physician: Dr. Garvin. [...] Signed By: Isidro Conde MD 2022-04-06 11:54:25 TILE CONDUIT LAYER Electronically Signed By: Isidro Conde MD 2022-04-06 11:54:25 TILE CONDUIT LAYER CC: CC: Sarah Ann Neida SOCIAL WORK COORDINATOR IMG NM PROCEDURES Final R esult documented in this encounter Visit Diagnoses Diagnosis New onset atrial fibrillation (CMS/HCC) (HCC) Atrial fibrillation documented in this encounter Administered Medications Inactive Administered Medications - up to 3 most recent administrations Medication Order MAR Action Action Date Dose Rate Site regadenoson (LEXISCAN) 0.4 mg/5 mL injection 0.4 mg 0.4 mg, intravenous, Once, On Kathya 04/06/22 at 1030, For 1 dose, Administer IV push over 10 seconds., Indications: Myocardial Perfusion Imaging AdjunctIndications:Myocardi al Perfusion Imaging Adjunct Given 04/06/2022 9:51 AM TILE CONDUIT LAYER 0.4 mg tc-99m sestamibi unit dose injection 10 millicurie 10 millicurie, intravenous, Once in imaging, radiopharmaceutical, Starting on Kathya 04/06/22 at 0847, For 1 dose, Indications: Diagnostic RadiographyIndications:Diag nostic Radiography Given 04/06/2022 8:47 AM TILE CONDUIT LAYER 10 millicuries tc-99m sestamibi unit dose injection 33 millicurie 33 millicurie, intravenous, Once in imaging, radiopharmaceutical, Starting on Kathya 04/06/22 at 0950, For 1 dose, Indications: Diagnostic RadiographyIndications:Diag nostic Radiography Given 04/06/2022 9:51 AM TILE CONDUIT LAYER 33 millicuries documented in this encounter Care Teams Ladies' Hat Trimmer Relationship Specialty Start Date End Date Phan Garvin MD PCP - General Family Medicine 03/13/21 09/13/22 documented as of this encounter
--- OUTSIDE RECORDS SUMMARY | 2024-03-15 10:28 | XMS_ITS | Encounter Summary ---
Author Organization [facility] Address [address] [place] [address] Phone Care Team Providers Care Dividing Machine Operator Name Role Phone Phan Garvin MD Primary Care Provider [phone] Phan Garvin MD Unavailable [phone] Encounter Details Date Type Department Care Team (Late st Contact Info) Description 01/08/2023 Telephone [facility] Obstetrics and Gynecology [address] 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 Sent message to [facility] for sending supplies to patient's home. documented in this encounter Plan of Treatment Not on file documented as of this encounter Visit Diagnoses Not on filedocumented in this encounter Care Teams Dividing Machine Operator Relationship Specialty Start Date End Date Phan Garvin MD PCP - General Family Medicine 09/14/22 Phan Garvin MD Family Medicine 09/14/22 documented as of this encounter
--- OUTSIDE RECORDS SUMMARY | 2024-03-15 10:29 | XMS_ITS | Encounter Summary ---
Author Organization [facility] Address [address] [facility] [address] [place] [address] Care Team Providers Care Flute Teacher Name Role Phone Phan Garvin MD Primary Care Provider [phone] Reason for Visit * Reason Onset Date Comments Test Results 01/03/2022 Encounter Details Date Type Department Care Team (Late st Contact Info) Description 01/03/2022 Telephone [facility] Primary Care at [address] [address] Rekha Cline, MATY [address] [place] [address] [address] [place] [address] Test Results Social History Tobacco Use Types Packs/Day Years Used Date Smoking Tobacco: Never Alcohol Use Standard Drinks/Week Comments Yes 0 (1 standard drink = 0.6 oz pur e alcohol) Comments Unknown Sex and Gender Information Value Date Recorded Sex Assigned at Not on file Legal Sex Female 7:11 PM SEASONAL TAX PREPARER Gender Identity Not on file Sexual Orientation Not on file 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 Pt ph [phone] documented in this encounter Plan of Treatment Not on file documented as of this encounter Visit Diagnoses Not on filedocumented in this encounter Care Teams Flute Teacher Relationship Specialty Start Date End Date Phan Garvin MD PCP - General Family Medicine 03/13/21 09/13/22 documented as of this encounter
--- OUTSIDE RECORDS SUMMARY | 2024-03-15 10:29 | XMS_ITS | Encounter Summary ---
Author Organization [facility] Address [address] [facility] [address] [place] [address] Care Team Providers Care Gallery Director Name Role Phone Phan Garvin MD Primary Care Provider [phone] Reason for Visit * Reason Comments UTI Sx started 4 days ag o lower back ache frequent urination blood in urine and burning Encounter Details Date Type Department Care Team (Late st Contact Info) Description 12/31/2021 7:45 PM CDT Office Visit [facility] Outpatient Center [address] [address] [place] [address] [place] [address] [address] [place] [address] Acute cystitis with hematuria (Primary Dx) Social History Tobacco Use Types Packs/Day Years Used Date Smoking Tobacco: Never Tobacco Cessation:Counseling Given: Not Answered Alcohol Use Standard Drinks/Week Comments Yes 0 (1 standard drink = 0.6 oz pur e alcohol) Comments Unknown Sex and Gender Information Value Date Recorded Sex Assigned at Not on file 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 Gender Identity Not on file Sexual Orientation Not on file 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 Not on file Not on file documented as of this encounter Last Filed Vital Signs Vital Sign Reading Time Taken Comments Blood Pressure 144/81 12/31/2021 7:40 PM CDT Pulse 108 12/31/2021 7:40 PM CDT Temperature 36.9 ??C (98.5 ??F) 12/31/2021 7:40 PM CD T Respiratory Rate 16 12/31/2021 7:40 PM CDT Oxygen Saturation 96% 12/31/2021 7:40 PM CDT Inhaled Oxygen Concentration - - Weight 77.1 kg (170 lb) 12/31/2021 7:40 PM CDT Height 160 cm (5' 3 ) 12/31/2021 7:40 PM CDT Body Mass Index 30.11 12/31/2021 7:40 PM CDT documented in this encounter Patient Instructions * Attachments The following attachments cannot be sent through Care Everywhere. * Urinary Tract Infection in Women (Finance Associate) (Pakistani) documented in this encounter Ordered Prescriptions Prescription Sig Dispense Quantity Refills Last Filled Start Date End Date phenazopyridine (PYRIDIUM) 100 mg tabletIndications: Acute cystitis with hematuria Take 1 tablet (100 mg total) by mouth 3 (three) times a day as needed (urinary pain) for up to 6 doses Take After meals 6 tablet 12/31/2021 4 cephalexin (KEFLEX) 500 mg capsuleIndications :Acute cystitis with hematuria Take 1 capsule (500 mg total) by mouth 4 (four) times a day for 5 days 20 capsule 12/31/2021 2 documented in this encounter Progress Notes * Rekha Cline NP - 12/31/2021 7:45 PM CDT Images from the original note were not included. Subjective/Objective Patient ID: Rohini Peralta is a 81 y.o. female. Chief Complaint UTI (Sx started 4 days ago lower back ache frequent urination blood in urine and burning ) Pt presents [facility] complaining of painful urination and blood in urine. Patient states she has been dealing with chronic Urinary tract infections for the past several years she does have a urologist. States she was just on vacation got home this evening from [facility]. She had reached out to her urologist they called out cephalexin for her approximately 4 days ago she has been taking 500 mg b.i.d. for the past 4 days with no improvement. Patient states she is having bright red blood in urine. Patient has an appointment with Urology on December. Patient states she is having a scope ran that day. UTI This is a new problem. Episode onset: 4 days ago. The problem occurs every urination. The problem has been rapidly worsening. The quality of the pain is described as burning. The pain is severe. There has been no fever. She is Not sexually active. There is No history of pyelonephritis. Associated symptoms include frequency, hematuria and urgency. Pertinent negatives include no chills, flank pain,nausea or vomiting. She has tried antibiotics (Cephalexin 500 mg b.i.d. for the past 4 days) for the symptoms. The treatment provided no relief. Her past medical history is significant for recurrent UTIs. There is no history of catheterization or kidney stones. Review of Systems Constitutional: Negative for chills, diaphoresis, fatigue and fever. Respiratory: Negative. Cardiovascular: Negative. Gastrointestinal: Negative for abdominal pain, constipation, diarrhea, nausea and vomiting. Genitourinary: Positive for dysuria, frequency, hematuria and urgency. Negative for difficulty urinating, flank pain, vaginal bleeding and vaginal discharge. Musculoskeletal: Negative for back pain. Neurological: Negative for dizziness and headaches. Physical Exam Vitals and nursing note reviewed. Constitutional: General: She is awake. She is not in acute distress. Appearance: Normal appearance. She is not ill-appearing. HENT: Head: Normocephalic and atraumatic. Cardiovascular: Rate and Rhythm: Normal rate and regular rhythm. Heart sounds: Normal heart sounds. Pulmonary: Effort: Pulmonary effort is normal. Breath sounds: Normal breath sounds. Abdominal: General: Bowel sounds are normal. Palpations: Abdomen is soft. Tenderness: There is no abdominal tenderness. There is no right CVA tenderness, left CVA tenderness, guarding or rebound. Neurological: Mental Status: She is alert and oriented to person, place, and time. Gait: Gait is intact. Gait normal. Psychiatric: Mood and Affect: Mood normal. Behavior: Behavior normal. Behavior is cooperative. Vitals: 12/31/210 BP: 144/81 BP Location: Right arm Patient Position: Sitting Pulse: 108 Resp: 16 Temp: 36.9 ??C (98.5 ??F) TempSrc: Oral SpO2: 96% Weight: 77.1 kg (170 lb) Height: 160 cm (5' 3 ) No results found. Past Medical History: Diagnosis Date Hypercholesteremia Osteoporosis Current Outpatient Medications: cephalexin (KEFLEX) 250 mg capsule, TK 1 C PO D, Disp: , Rfl: fosfomycin (MONUROL) 3 gram packet, TAKE ONE PACKET WEEKLY ON SUNDAY (MIXED DIRECTED), Disp: ,Rfl: guaiFENesin-codeine (GUAITUSS AC) liquid 100-10 mg/5 mL, TAKE 10 ML BY MOUTH EVERY 4 TO 6 HOURS NEEDED FOR COUGH, Disp: , Rfl: Premarin vaginal cream, , Disp: , Rfl: rosuvastatin (CRESTOR) 10 mg tablet, , Disp: , Rfl: sulfamethoxazole-trimethoprim (BACTRIM DS) 800-160 mg per tablet, Take 1 tablet by mouth 2 (two) times a day, Disp: , Rfl: cephalexin (KEFLEX) 500 mg capsule, Take 1 capsule (500 mg total) by mouth 4 (four) times a day for5 days, Disp: 20 capsule, Rfl: 0 phenazopyridine (PYRIDIUM) 100 mg tablet, Take 1 tablet (100 mg total) by mouth 3 (three) times a day as needed (urinary pain) for up to 6 doses Take After meals, Disp: 6 tablet, Rfl: 0 Allergies Allergen Reactions Prednisone Rash Social History Tobacco Use Smoking status: Never Smokeless tobacco: None Substance and Sexual Activity Drug use: Never Sexual activity: None Alcohol Use: Not on file Past Surgical History: Procedure Laterality Date BACK SURGERY BLADDER SURGERY Assessment/Plan Diagnoses and all orders for this visit: Acute cystitis with hematuria (Primary) - Urine culture Urine, clean voided; Future - POCT urinalysis dipstick - cephalexin (KEFLEX) 500 mg capsule; Take 1 capsule (500 mg total) by mouth 4 (four) times a day for 5 days - phenazopyridine (PYRIDIUM) 100 mg tablet; Take 1 tablet (100 mg total) by mouth 3 (three) times aday as needed (urinary pain) for up to 6 doses Take After meals Recent Results (from the past 4 hour(s)) POCT urinalysis dipstick Collection Time: 12/31/21 7:56 PM Result Value Ref Range Color, Urine, POC Dark Yellow Clarity, ur, POC Cloudy (A) Clear Glucose, ur, POC Negative Negative MG/DL Bilirubin, ur, POC Moderate Negative, Small, Moderate, Large Ketones, ur, POC Trace (A) Negative Specific [place], POC 1.015 1.005 - 1.030 Blood, ur, POC Large (A) Negative pH, ur, POC 8.5 (A) 5.0 - 8.0 Protein, ur, POC 300. (A) Negative Urobilinogen, urine, POC 0.2 0.2 - 1.0 mg/dL Nitrite, ur, POC Negative Negative Leukocytes, ur, POC Large (A) Negative Lot Number [id number] Patient Education: -Discussed with patient to continue cephalexin but were going to increase it to 4 times a day. -We will call with culture results -Follow instructions given by urologist concerning appointment on and procedure being performed. -Recommend patient call her urologist Sunday morning to let them know what is going on. -Take all antibiotic medications as prescribed. -We will notify you of urine culture results -Push fluids, especially water. This also helps prevent future infections. -Urinate when you feel the urge. Do not hold your urine. Urinate as soon as you feel you have to. -Cranberry juice has been shown to promote healing, use at your discretion. -Make sure to always wipe from front to back after urinating. -If you are sexually active make sure to urinate Before AND after sex to help prevent bladder infections. -Avoid intercourse until your symptoms are resolved for one week. -Do not drink alcohol, caffeine, and citrus juices. These can irritate your bladder and increase your symptoms. Seek care (go to Urgent Care or ER) immediately if: ?? You are urinating very little or not at all. ?? You are vomiting. ?? You have a high fever with shaking chills. ?? You have side or back pain that gets worse. ??Contact your primary care doctor or ASSEMBLY AND PACKING SUPERVISOR if: ?? You have a fever. ?? You have white or yellow discharge from your vagina. ?? You do not feel better after 2 days of taking antibiotics. Disposition Treatment plan including expectations, follow up, and return precautions discussed with patient/parent, verbalizes understanding. Medication dosage, use, and potential adverse reactions discussed with patient/parent. Advised to follow up with PCP if symptoms do not resolve as expected or sooner if condition worsens. Signs/symptoms warranting ER evaluation reviewed. Patient and/or guardian was given an opportunity to ask questions, questions answered. MATY Reedally signed by Rekha Cline NP at 01/01/2022 1:40 PM CDT documented in this encounter Plan of Treatment Not on file documented as of this encounter Procedures Procedure Name Priority Date/Time Associated Diagnosis Comments POCT URINALYSIS DIPSTICK Routine 12/31/2021 7:56 PM CDT Acute cystitis with hematuria documented in this encounter Results * (ABNORMAL) POCT urinalysis dipstick (12/31/2021 7:56 PM CDT) Color, Urine, POC Dark Yellow Clarity, ur, POC Cloudy(A) Clear Glucose, ur, POC Negative Negative MG/DL Bilirubin, ur, POC Moderate Negative, Small, Moderate, Large Ketones, ur, POC Trace(A) Negative Specific [place], POC 1.015 1.005 - 1.030 Blood, ur, POC Large(A) Negative pH, ur, POC 8.5(A) 5.0 - 8.0 Protein, ur, POC 300.(A) Negative Urobilinogen, urine, POC 0.2 0.2 - 1.0 mg/dL Nitrite, ur, POC Negative Negative Leukocytes, ur, POC Large(A) Negative Lot Number [id number] Urine 12/31/2021 7:56 PM CDT Rekha Cline NP POINT OF CARE TEST ORDERABLES F inal Result * (ABNORMAL) Urine culture Urine, clean voided (12/31/2021 7:49 PM CDT) Report Final Report: Greater than or equal to 100,000 colonies/mL of Proteus vulgaris/jennyfer seri (.) JUAN JOSE Comment:Testing performed by : [facility], [address] [place] [address] Organism PROTEUS VULGARIS/JENNYFER SERI JUAN JOSE Urine, clean voided 12/31/2021 7:49 PM CDT 01/01/2022 12:27 AM CDT Narrative JUAN JOSE - 01/03/2022 3:02 PM CDT Testing performed by [facility] ([phone]) Organism Antibiotic Method Susceptibility Proteus vulgaris/hauseri Ampicillin INTERPRETATION Resistant Proteus vulgaris/hauseri Cefazolin INTERPRETATION Resistant Proteus vulgaris/hauseri Nitrofurantoin INTERPRETATION Resistant Proteus vulgaris/hauseri Gentamicin INTERPRETATION Susceptible Proteus vulgaris/hauseri Trimethoprim wi th Sulfamethoxazole INTERPRETATION Susceptible Proteus vulgaris/hauseri Meropenem INTERPRETATION Susceptible Proteus vulgaris/hauseri Cefepime INTERPRETATION Susceptible Proteus vulgaris/hauseri Ciprofloxacin INTERPRETATION Susceptible Proteus vulgaris/hauseri Ceftazidime INTERPRETATION Susceptible Proteus vulgaris/hauseri Ceftriaxone INTERPRETATION Susceptible Proteus vulgaris/hauseri Piperacillin/Tazobactam INTER PRETATION Susceptible Rekha Cline [facility] Final Result JUAN JOSE [id number] [place] [address] documented in this encounter Visit Diagnoses Diagnosis Acute cystitis with hematuria- Primary Acute cystitis with hematuria documented in this encounter Historical Medications * This list may reflect changes made after this encounter. sulfamethoxazole -trimethoprim (BACTRIM DS) 800-160 mg per tablet Take 1 tablet by mouth 2 (two) times a day 10/24/2021 03/29/2023 fosfomycin (MONUROL) 3 gram packet TAKE ONE PACKET WEEKLY ON SUNDAY (MIXED DIRECTED) 09/30/2021 01/19/2023 guaiFENesin-code ine (GUAITUSS AC) liquid 100-10 mg/5 mL TAKE 10 ML BY MOUTH EVERY 4 TO 6 HOURS NEEDED FOR COUGH 09/29/2021 03/29/2023 added in this encounter Care Teams Gallery Director Relationship Specialty Start Date End Date Phan Garvin MD PCP - General Family Medicine 03/13/21 09/13/22 documented as of this encounter
--- OUTSIDE RECORDS SUMMARY | 2024-03-15 10:29 | XMS_ITS | Encounter Summary ---
Author Organization [facility] Address [address] [facility] [address] [place] [address] Care Team Providers Care Service Sprinkler Helper Name Role Phone Phan Garvin MD Primary Care Provider [phone] Encounter Details Date Type Department Care Team (Late st Contact Info) Description 01/03/2022 Orders Only [facility] [address] [address] Radha Washburn PA [address] [place] [address] [address] [place] [address] Social History Tobacco Use Types Packs/Day Years Used Date Smoking Tobacco: Never Alcohol Use Standard Drinks/Week Comments Yes 0 (1 standard drink = 0.6 oz pur e alcohol) Comments Unknown Sex and Gender Information Value Date Recorded Sex Assigned at Not on file 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 Switched to cefdinir as the organism is susceptible to 3rd generation cephalosporins. Spoke w/ patient and informed her of this. She has a follow up appt scheduled with urology. documented in this encounter Plan of Treatment Not on file documented as of this encounter Visit Diagnoses Not on filedocumented in this encounter Discontinued Medications Medication Sig Discontinue Reason Start Date End Da te cephalexin (KEFLEX) 500 mg capsuleIndications:Acute cystitis with hematuria Take 1 capsule (500 mg total) by mouth 4 (four) times a day for 5 days Other 12/31/2021 01/03/2022 cephalexin (KEFLEX) 250 mg capsule TK 1 C PO D Other 07/22/2019 01/03/2022 documented as of this encounter Care Teams Service Sprinkler Helper Relationship Specialty Start Date End Date Phan Garvin MD PCP - General Family Medicine 03/13/21 09/13/22 documented as of this encounter
--- OUTSIDE RECORDS SUMMARY | 2024-03-15 10:29 | XMS_ITS | Encounter Summary ---
Author Organization [facility] Address [address] [address] Care Team Providers Care Laborer Cook House Name Role Phone Angelica Frankel MD Primary Care Provider [phone] Reason for Referral * (Routine) - Closed Specialty Diagnoses / Procedures Referred By Contac t Referred To Contact Diagnoses Primary osteoarthritis of right knee Procedures Large Joint (Hip, Knee, Shoulder) Injection: R knee Rodo Padgett MD [address] [place] [address] [address] GARNER [address] [place] [address] Phone: tel: fax: [facility] Referral ID Status Reason Start Date Expiration Date Visits Re quested Visits Authorized [id number] Closed 09/25/2019 04/05/2021 1 1 * Diagnostic Imaging (Routine) - Closed Specialty Diagnoses / Procedures Referred By Contac t Referred To Contact Diagnoses Right knee pain, unspecified chronicity Procedures XR Knee Right 3 Views Rodo Padgett MD [address] [place] [address] DR GARNER [address] [place] [address] Phone: tel: fax: [facility] [address] [place] [phone] Referral ID Status Reason Start Date Expiration Date Visits Re quested Visits Authorized [id number] Closed 09/24/2019 04/04/2021 1 1 Reason for Visit * Reason Comments Pain Encounter Details Date Type Department Care Team (Late st Contact Info) Description 09/25/2019 9:00 AM CDT Office Visit [facility] Orthopedics and Sports Medicine [address] [place] [address] [address] [place] [address] Rodo Padgett MD [address] [place] [phone] Primary osteoarthritis of right knee (Primary Dx); Right knee pain, unspecified chronicity Social History Tobacco Use Types Packs/Day Years Used Date Smoking Tobacco: Never Alcohol Use Standard Drinks/Week Comments Yes 0 (1 standard drink = 0.6 oz pur e alcohol) Comments Unknown Sex and Gender Information Value Date Recorded Sex Assigned at Not on file Legal Sex Female 7:11 PM JAVA SOLUTIONS 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 Gender Identity Not on file Sexual Orientation Not on file 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 Not on file Not on file Not on file documented as of this encounter Last Filed Vital Signs Vital Sign Reading Time Taken Comments Blood Pressure - - Pulse - - Temperature - - Respiratory Rate - - Oxygen Saturation - - Inhaled Oxygen Concentration - - Weight 77.1 kg (170 lb) 09/25/2019 9:41 AM CDT Height 160 cm (5' 3 ) 09/25/2019 9:41 AM CDT Body Mass Index 30.11 09/25/2019 9:41 AM CDT documented in this encounter Progress Notes * Rodo Padgett MD - 09/25/2019 9:00 AM CDTAssociated Order(s): Large Joint (Hip, Knee, Shoulder) Injection: R knee Post-Procedure Diagnose(s): Primary osteoarthritis of right knee Images from the original note were not included. Visit Date: 09/25/2019 CHIEF COMPLAINT Pain of the Right Knee HISTORY OF PRESENT ILLNESS Israel Jean is a 78 y.o. female. Patient comes in today with new complaint of right knee pain. The patient reports that she has had pain in her knee for a long time. She also reports it is very swollen. The pain is aching quality moderate to severe in intensity. She is unable to walk a blockbecause the pain. She did have a friend that was an orthopedic surgeon who gave her an injection last fall which helped for 2-3 months with the knee. The patient has also tried icing of the knee. Sheprefers not to take a lot of medications. She does take some lnka-rzh-vkzsxkb anti-inflammatories when it is really bad. PAST MEDICAL HISTORY She has a past medical history of Hypercholesteremia and Osteoporosis. PAST SURGICAL HISTORY She has a past surgical history that includes Bladder surgery and Back surgery. MEDICATIONS She has a current medication list which includes the following prescription(s): cephalexin, premarin, and rosuvastatin. ALLERGIES She is allergic to prednisone. SOCIAL HISTORY reports that she has never smoked. She does not have any smokeless tobacco history on file. She reports current alcohol use. She reports that she does not use drugs. FAMILY HISTORY family history includes Arthritis in her mother; Cancer in her mother; Heart disease in her father. REVIEW OF SYSTEMS Constitutional: No Fever Respiratory: No Shortness of Breath PHYSICAL EXAM Alert and Oriented X 3. No apparent distress. Hearing is intact to spoken word. Respirations are regular. Gait is normal without assistive devices. Left knee exam. The leg is warm and well perfused. Skin is intact across the lower extremity. Hip range of motion is pain free. 5/5 strength in the extensor hallucis longus, tibialis anterior, and gastrocnemius/soleus. Sensation is intact to light touch distally in the extremity. The patient has no knee effusion. The patient is tender palpation overthe lateral joint line. Knee range of motion is 5-90 degrees. She has a 2+ effusion in the knee. She is tender palpation over the anterior knee. She has come patellofemoral crepitus with knee range of motion. Stable to varus and valgus stress at 0 and 30 degrees. Michael's test is negative. Posterior drawer is negative. IMAGING X-rays the patient's right knee show mild narrowing of the lateral joint space. She does have moderate chondrocalcinosis in both the medial lateral compartments. She does have hhlc-le-wnxm wear of the patellofemoral joint with a non smooth patellofemoral joint surface. Diagnoses and all orders for this visit: Right knee pain, unspecified chronicity (Primary) - XR Knee Right 3 Views; Future Primary osteoarthritis of right knee ASSESSMENT 78-year-old female with right knee end-stage primary patellofemoral osteoarthritis PLAN I discussed treatment options with the patient including prescription anti- inflammatories, various injections, physical therapy, versus total knee arthroplasty. We elected to proceed with a cortisoneinjection into the knee today. I will see the patient back in clinic in 3 months if she would like to pursue further treatments. Large Joint (Hip, Knee, Shoulder) Injection: R knee Date/Time: 09/25/2019 1:03 PM Performed by: Rodo Padgett MD Authorized by: Rodo Padgett MD Large Joint Injection/Aspiration: Consent Given by: Patient Written consent obtained: Yes Supporting Documentation: Indications: Pain Procedure Details: Location: Knee Site: R knee Prep: patient was prepped using a clean technique (The skin was anesthetized with ethyl chloride spray prior to the injection.) Needle Size: 25 G Medications: 2 mL lidocaine 10 mg/mL (1 %); 40 mg methylPREDNISolone acetate 40 mg/mL Patient tolerance: Patient tolerated the procedure well with no immediate complications Rodo Padgett MD documented in this encounter Plan of Treatment Not on file documented as of this encounter Procedures Procedure Name Priority Date/Time Associated Diagnosis Comments NC ARTHROCENTESIS ASPIR&/INJ MAJOR JT/BURSA W/O US Routine 09/25/2019 9:00 AM CDT Primary osteoarthritis of right knee documented in this encounter Results * XR Knee Right 3 Views (09/25/2019 9:12 AM CDT) Anatomical Region Laterality Modality Lower Extremities, Knee Right [facility] 09/25/2019 11:1 3 AM CDT Narrative 09/25/2019 11:15 AM CDT Patient Name: ISRAEL JEAN ?Ordering Dr: Dayron,Rodo L. MD ?? D.O.B: 1940 ? Exam Date: /16/20 ?? 0912 ?? Age: 78 ?Sex: Female ? MR#: [id number] ?? Loc: ? RADIOLOGY REPORT ?? Order #[id number] ?? Radiology ? Knee RT 3 View (STANDARD) ? Signed ?? EXAM DESCRIPTION: ?Knee RT 3 View (STANDARD) ? REASON FOR STUDY: ?? Generalized knee pain x 1 yr, NKI ? TECHNIQUE: ?? 3 radiographic views acquired of the right knee. ? COMPARISON: ?? No prior ? FINDINGS: ? BONES/JOINTS: ??Normal mineralization. ??No acute fracture or dislocation. ? Minimal marginal osteophyte formation of the tibial plateau. ??More prominent ?? change is seen of the patellofemoral joint where there is central joint space ?? narrowing. ??Trace effusion. ??Chondrocalcinosis medial and lateral compartment. ? SOFT TISSUES: ??Unremarkable. ? OTHER: ??The left knee AP view is included in the weight-bearing view of the ?? right. ??No acute fracture. ??Chondrocalcinosis. ??Mild marginal osteophyte ?? formation lateral tibial plateau. ? IMPRESSION: ? 1. ??Right knee demonstrates no acute fracture. ? 2. ??Right knee demonstrates tricompartmental osteoarthritis, moderate of the ?? patellofemoral joint. ? 3. ??Chondrocalcinosis both knees. ? 4. ??Minimal osteoarthritis lateral compartment left knee on more limited view. ? THIS IS AN ELECTRONICALLY VERIFIED FINAL REPORT ?? 09/25/2019 11:15 AM - Electronically signed by Siddharth Car M.D. ?? Siddharth Car M.D. ? MJ ?? D: ??09/25/2019 11:15 AM ?? T: ? Report ID: [id number] ?? Reading Location: ??[id number] ? REPORT ELECTRONICALLY SIGNED IN OTHER VENDOR SYSTEM ?? Resulting Agency Comment O Procedure Note Siddharth Car MD - 09/25/2019 Patient Name: ISRAEL JEAN Karrijoann Dr: Rodo Padgett MD D.O.B: 1940 Exam Date: 09/25/19911 Age: 78 Sex: Female MR#: [id number] Loc: RADIOLOGY REPORT Order #[id number] Radiology Knee RT 3 View (STANDARD) Signed EXAM DESCRIPTION: Knee RT 3 View (STANDARD) REASON FOR STUDY: Generalized knee pain x 1 yr, NKI TECHNIQUE: 3 radiographic views acquired of the right knee. COMPARISON: No prior FINDINGS: BONES/JOINTS: Normal mineralization. No acute fracture or dislocation. Minimal marginal osteophyte formation of the tibial plateau. Moreprominent change is seen of the patellofemoral joint where there is central jointspace narrowing. Trace effusion. Chondrocalcinosis medial and lateralcompartment. SOFT TISSUES: Unremarkable. OTHER: The left knee AP view is included in the weight-bearing view ofthe right. No acute fracture. Chondrocalcinosis. Mild marginal osteophyte formation lateral tibial plateau. IMPRESSION: 1. Right knee demonstrates no acute fracture. 2. Right knee demonstrates tricompartmental osteoarthritis, moderate ofthe patellofemoral joint. 3. Chondrocalcinosis both knees. 4. Minimal osteoarthritis lateral compartment left knee on more limitedview. THIS IS AN ELECTRONICALLY VERIFIED FINAL REPORT 09/25/2019 11:15 AM - Electronically signed by Siddharth Car M.D. MJ T: Report ID: [id number] Reading Location: [place] [address] REPORT ELECTRONICALLY SIGNED IN OTHER VENDOR SYSTEM us Rodo Padgett MD IMG XR PROCEDURES Final Re sult * NC ARTHROCENTESIS ASPIR&/INJ MAJOR JT/BURSA W/O US (09/25/2019 9:00 AM CDT) Rodo Rivera MD - 09/25/2019 9:00 AM CDT Rodo Padgett MD ? 09/25/2019 ??1:04 PM Large Joint (Hip, Knee, Shoulder) Injection: R knee Date/Time: 09/25/2019 1:03 PM Performed by: Rodo Padgett MD Authorized by: Rodo Padgett MD Large Joint Injection/Aspiration: ??Consent Given by: ??Patient ??Written consent obtained: Yes ?? Supporting Documentation: ??Indications: ??Pain Procedure Details: ??Location: ??Knee ??Site: ??R knee ??Prep: patient was prepped using a clean technique (The skin was anesthetized with ethyl chloride spray prior to the injection.) ?Needle Size: ??25 G ??Medications: ??2 mL lidocaine 10 mg/mL (1 %); 40 mg methylPREDNISolone acetate 40 mg/mL ??Patient tolerance: ??Patient tolerated the procedure well with no immediate complications us Rodo Padgett MD IN CLINIC/BEDSIDE ORDERABL ES Final Result documented in this encounter Visit Diagnoses Diagnosis Primary osteoarthritis of right knee- Primary Right knee pain, unspecified chronicity Right knee pain, unspecified chronicity documented in this encounter Administered Medications Inactive Administered Medications - up to 3 most recent administrations Medication Order MAR Action Action Date Dose Rate Site lidocaine (XYLOCAINE) 10 mg/mL (1 %) injection 2 mL 2 mL, One-Time Injection, Starting on Kathya 09/25/19 at 1303, For 1 dose, Indications: Administration of Local AnesthesiaIndications:Administratio n of Local Anesthesia Given 09/25/2019 1:03 PM CDT 2 mL methylPREDNISolone acetate (DEPO-medrol) injection 40 mg 40 mg, intra-articular, One-Time Injection, Starting on Kathya 09/25/19 at 1303, For 1 doseIndications:Primary osteoarthritis of right knee Given 09/25/2019 1:03 PM CDT 40 mg documented in this encounter Discontinued Medications Medication Sig Discontinue Reason Start Date End Da te amoxicillin-clavulanate (AUGMENTIN) 875-125 mg per tablet 09/24/2019 09/25/2019 documented as of this encounter Historical Medications * This list may reflect changes made after this encounter. rosuvastatin (CRESTOR) 10 mg tablet 09/24/2019 cephalexin (KEFLEX) 250 mg capsule TK 1 C PO D 07/22/2019 01/03/2022 Premarin vaginal cream 09/17/2019 03/29/2023 amoxicillin-clavul anate (AUGMENTIN) 875-125 mg per tablet 09/24/2019 09/25/2019 added in this encounter Care Teams Laborer Cook House Relationship Specialty Start Date End Date Angelica Frankel MD [facility] [address] [place] [address] PCP - General Emergency Medicine 10/16/18 03/12/21 documented as of this encounter
--- OUTSIDE RECORDS SUMMARY | 2024-03-15 10:29 | XMS_ITS | Encounter Summary ---
Author Organization [facility] Healthcare Address [address] [place] [address] Care Team Providers Care Clinical Laboratory Scientist Name Role Phone Angelica Frankel MD Primary Care Provider [phone] Reason for Referral * Diagnostic Imaging (Routine) - Closed Specialty Diagnoses / Procedures Referred By Chuyac t Referred To Contact Diagnoses Right knee pain, unspecified chronicity Procedures XR Knee Right 3 Views Rodo Padgett MD [address] [place] [address] [address] GARNER [address] [place] [address] Phone: tel: fax: [address] [phone] Referral ID Status Reason Start Date Expiration Date Visits Re quested Visits Authorized [id number] Closed 09/24/2019 04/04/2021 1 1 Encounter Details Date Type Department Care Team (Late st Contact Info) Description 09/25/2019 9:10 AM CDT Hospital Encounter [facility] INTERIM Rodo Padgett MD 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 Not on file Not on file documented as of this encounter Medications at Time of Discharge rosuvastatin (CRESTOR) 10 mg tablet 09/24/2019 cephalexin (KEFLEX) 250 mg capsule TK 1 C PO D 07/22/2019 01/03/2022 Premarin vaginal cream 09/17/2019 03/29/2023 documented as of this encounter Plan of Treatment Not on file documented as of this encounter Procedures Procedure Name Priority Date/Time Associated Diagnosis Comments XR KNEE RIGHT 3 VIEWS Schedule Routine, Read Routine (OP Routine) 09/25/2019 9:12 AM CDT Right knee pain, unspecified chronicity documented in this encounter Results * XR Knee Right 3 Views (09/25/2019 9:12 AM CDT) Anatomical Region Laterality Modality Lower Extremities, Knee Right [facility] 09/25/2019 11:1 3 AM CDT Narrative 09/25/2019 11:15 AM CDT Patient Name: ISRAEL JEAN ?Ordering Dr: Rodo Padgett MD ?? D.O.B: 1940 ? Exam Date: 09/25/19 ?? 0912 ?? Age: 78 ?Sex: Female ? MR#: [id number] ?? Loc: ? RADIOLOGY REPORT ?? Order #[id number] ?? Radiology ? Knee RT 3 View [...] 11:15 AM ?? T: ? Report ID: [id number] ?? Reading Location: ??[id number] ? REPORT ELECTRONICALLY SIGNED IN OTHER VENDOR SYSTEM ?? Resulting Agency Comment O Procedure Note Siddharth Car MD - 09/25/2019 Patient Name: ISRAEL JEAN Dr: Rodo Padgett MD D.O.B: 1940 Exam Date: 09/25/19911 Age: 78 Sex: Female MR#: [id number] Loc: RADIOLOGY REPORT Order #[id number] Radiology Knee RT 3 View (STANDARD) Signed [...] Siddharth Car M.D. MJ T: Report ID: [id number] Reading Location: [id number] REPORT ELECTRONICALLY SIGNED IN OTHER VENDOR SYSTEM Rodo Padgett MD IMG XR PROCEDURES Final Re sult documented in this encounter Visit Diagnoses Diagnosis Right knee pain, unspecified chronicity documented in this encounter Care Teams Clinical Laboratory Scientist Relationship Specialty Start Date End Date Angelica Frankel MD [address] [place] [address] PCP - General Emergency Medicine 10/16/18 03/12/21 documented as of this encounter
--- OUTSIDE RECORDS SUMMARY | 2024-03-15 10:29 | XMS_ITS | Encounter Summary ---
Author Organization [facility] Address [address] [facility] [address] [place] [address] Care Team Providers Care Laborer [place] Name Role Phone Phan Garvin MD Primary Care Provider Encounter Details Date Type Department Care Team (Late st Contact Info) Description 03/03/2022 Orders Only [facility] Cardiology [address] [facility] [address] [place] [address] Siddharth Jennings MD [address] [facility] [address] [place] [address] Social History Tobacco Use Types Packs/Day Years Used Date Smoking Tobacco: Never Alcohol Use Standard Drinks/Week Comments Yes 0 (1 standard drink = 0.6 oz pur e alcohol) Comments Unknown Sex and Gender Information Value Date Recorded Sex Assigned at Not on file Legal Sex Female 7:11 PM NETWORK INFRASTRUCTURE ARCHITECT Gender Identity Not on file Sexual Orientation Not on file 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 Not on file Not on file Not on file documented as of this encounter Plan of Treatment Not on file documented as of this encounter Procedures Procedure Name Priority Date/Time Associated Diagnosis Comments CARDIOLOGY DOCUMENT SCAN Routine 03/03/2022 documented in this encounter Results * Cardiology Document Scan (03/03/2022) Anatomical Region Laterality Modality Other us Siddharth Jennings MD [facility] PROC EDURES Final Result documented in this encounter Visit Diagnoses Not on filedocumented in this encounter Care Teams Laborer Sawmill Relationship Specialty Start Date End Date Phan Garvin MD PCP - General Family Medicine 03/13/21 09/13/22 documented as of this encounter
--- OUTSIDE RECORDS SUMMARY | 2024-03-15 10:29 | XMS_ITS | Encounter Summary ---
Author Organization [facility] Medical Group Address [address] [facility] [address] [place] [address] Care Team Providers Care Construction Management Assistant Name Role Phone Phan Garvin MD Primary Care Provider Encounter Details Date Type Department Care Team (Late st Contact Info) Description 03/03/2022 Orders Only [facility] Cardiology [address] [facility] [address] [place] [address] Siddharth Jennings MD [address] [facility] [address] [place] [address] Social History Tobacco Use Types Packs/Day Years Used Date Smoking Tobacco: Never Alcohol Use Standard Drinks/Week Comments Yes 0 (1 standard drink = 0.6 oz pur e alcohol) Comments Unknown Sex and Gender Information Value Date Recorded Sex Assigned at Not on file Legal Sex Female 7:11 PM XRAY TECH Gender Identity Not on file Sexual [...] on filedocumented in this encounter Care Teams Construction Management Assistant Relationship Specialty Start Date End Date Phan Garvin MD PCP - General Family Medicine 03/13/21 09/13/22 documented as of this encounter
--- OUTSIDE RECORDS SUMMARY | 2024-03-15 10:29 | XMS_ITS | Encounter Summary ---
Author Organization [facility] Medical [facility] Address [address] [facility] [address] [place] [address] Care Team Providers Care Fraud Manager Name Role Phone Phan Garvin MD Primary Care Provider + [phone] Reason for Visit * Reason Onset Date Comments Covid-19 Home Monitoring 03/14/2021 enrollm ent call day 1 (review) Encounter Details Date Type Department Care Team (Late st Contact Info) Description 03/14/2021 Telephone [facility] Accountable Care Organization [address] [place] [address] Lara Oscar MA [address] [place] [address] Covid-19 Home Monitoring (enrollment call day 1 (review)) Social History Tobacco Use Types Packs/Day Years Used Date Smoking Tobacco: Never Alcohol Use Standard Drinks/Week Comments Yes 0 (1 standard drink = 0.6 oz pur e alcohol) Comments Unknown Sex and Gender Information Value Date Recorded Sex Assigned at Not on file Legal Sex Female 7:11 PM TEAM OTR TRUCK DRIVER Gender Identity Not on file Sexual Orientation Not on file 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 The patient was contacted via phone for enrollment in the program, but could not be reached to accept or decline. OTR TRUCK DRIVER documented in this encounter Plan of Treatment Not on file documented as of this encounter Visit Diagnoses Not on filedocumented in this encounter Additional Health Concerns Infection Onset Date Last Indicated Resolved Time COVID19 03/13/2021 03/13/2021 03/27/2021 3:05 AM TEAM OTR TRUCK DRIVER documented as of this encounter Care Teams Fraud Manager Relationship Specialty Start Date End Date Phan Garvin MD PCP - General Family Medicine 03/13/21 09/13/22 documented as of this encounter
--- OUTSIDE RECORDS SUMMARY | 2024-03-15 10:29 | XMS_ITS | Encounter Summary ---
Author Organization [facility] Healthcare Address [address] [place] [address] Care Team Providers Care Video Tape Editor Name Role Phone Phan Garvin MD Primary Care Provider [phone] Encounter Details Date Type Department Care Team (Latest Contact Info) Description 12/31/2021 7:49 PM CDT - 12/31/2021 11:59 PM CDT Hospital Encounter [address] [address] Acute cystitis with hematuria Discharge Disposition: Discharge to home or self care Social History Tobacco Use Types Packs/Day Years Used Date Smoking Tobacco: Never Alcohol Use Standard Drinks/Week Comments Yes 0 (1 standard drink = 0.6 oz pur e alcohol) Comments Unknown Sex and Gender Information Value Date Recorded Sex Assigned at Not on file Legal Sex Female 7:11 PM [employer] Gender Identity Not on file Sexual Orientation Not on file 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 Not on file Not on file documented as of this encounter Medications at Time of Discharge rosuvastatin (CRESTOR) 10 mg tablet 09/24/2019 cephalexin (KEFLEX) 250 mg capsule TK 1 C PO D 07/22/2019 01/03/2022 cephalexin (KEFLEX) 500 mg capsuleIndicatio ns:Acute cystitis with hematuria Take 1 capsule (500 mg total) by mouth 4 (four) times a day for 5 days 20 capsule 12/31/2021 01/03/2022 fosfomycin (MONUROL) 3 gram packet TAKE ONE PACKET WEEKLY ON SUNDAY (MIXED DIRECTED) 09/30/2021 01/19/2023 guaiFENesin-code ine (GUAITUSS AC) liquid 100-10 mg/5 mL TAKE 10 ML BY MOUTH EVERY 4 TO 6 HOURS NEEDED FOR COUGH 09/29/2021 03/29/2023 phenazopyridine (PYRIDIUM) 100 mg tabletIndication s:Acute [...] 2 (two) times a day 10/24/2021 03/29/2023 documented as of this encounter Discharge Disposition Disposition Code Departure Means Destination Discharge to home or self care documented in this encounter Miscellaneous Notes * Result Encounter Note - Candie Clemente MA - 12/31/2021 11:59 PM CDT Left message for call back. * Result Encounter Note - Lawanda Coulter MA - 12/31/2021 11:59 PM CDT Pt informed and will check back tomorrow * Result Encounter Note - Radha Washburn PA - 12/31/2021 11:59 PM CDT Left VM to call back. Pt needs to be switched from Keflex to Cefdinir based on sensitivity report. * Result Encounter Note - Candie Clemente MA - 12/31/2021 11:59 PM CDT Provider spoke with patient. documented in this encounter Plan of Treatment Not on file documented as of this encounter Procedures Procedure Name Priority Date/Time Associated Diagnosis Comments URINE CULTURE Routine 12/31/2021 7:49 PM CDT Acute cystitis with hematuria documented in this encounter Results * (ABNORMAL) Urine culture Urine, clean voided (12/31/2021 7:49 PM CDT) Report Final Report: Greater than or equal to 100,000 colonies/mL of Proteus vulgaris/jennyfer seri (.) [facility] JOSE ACOSTA Comment:Testing performed by : [facility], [address] [place]., [address] Organism PROTEUS VULGARIS/JENNYFER SERI [facility]COSTA Urine, clean voided 12/31/2021 7:49 PM CDT 01/01/2022 12:27 AM CDT Narrative JUAN JOSE ACOSTA - 01/03/2022 3:02 PM CDT Testing performed by [facility] ([phone]) Organism Antibiotic Method Susceptibility Proteus vulgaris/hauseri Ampicillin INTERPRETATION Resistant Proteus vulgaris/hauseri Cefazolin INTERPRETATION Resistant Proteus vulgaris/hauseri Nitrofurantoin INTERPRETATION Resistant Proteus vulgaris/hauseri Gentamicin INTERPRETATION Susceptible Proteus vulgaris/hauseri Trimethoprim wi th Sulfamethoxazole INTERPRETATION Susceptible Proteus vulgaris/hauseri Meropenem INTERPRETATION Susceptible Proteus vulgaris/hauseri Cefepime INTERPRETATION Susceptible Proteus vulgaris/hauseri Ciprofloxacin INTERPRETATION Susceptible Proteus vulgaris/hauseri Ceftazidime INTERPRETATION Susceptible Proteus vulgaris/hauseri Ceftriaxone INTERPRETATION Susceptible Proteus vulgaris/hauseri Piperacillin/Tazobactam INTER PRETATION Susceptible us Rekha Cline NP LAB MICROBIOLOGY - GENERAL MANI DAY Final Result [facility] [id number] [place] [address] documented in this encounter Visit Diagnoses Diagnosis Acute cystitis with hematuria documented in this encounter Care Teams Video Tape Editor Relationship Specialty Start Date End Date Phan Garvin MD PCP - General Family Medicine 03/13/21 09/13/22 documented as of this encounter
--- OUTSIDE RECORDS SUMMARY | 2024-03-15 10:29 | XMS_ITS | Encounter Summary ---
Author Organization [facility] Address [address] [facility] [address] [place] [id number] Care Team Providers Care Door Repairman Name Role Phone Phan Garvin MD Primary Care Provider [phone] Reason for Visit * Reason Comments Sinus Problem Earache Encounter Details Date Type Department Care Team (Late st Contact Info) Description 03/13/2021 1:30 PM VOCATIONAL NURSE Office Visit [facility] Out[facility] [address] [id number] Samantha Martinez, PACK OUT OPERATOR [address] [place], [place] [id number] COVID-19 (Primary Dx) Social History Tobacco Use Types Packs/Day Years Used Date Smoking Tobacco: Never Alcohol Use Standard Drinks/Week Comments Yes 0 (1 standard drink = 0.6 oz pur e alcohol) Comments Unknown Sex and Gender Information Value Date Recorded Sex Assigned at Not on file Legal Sex Female 7:11 PM VOCATIONAL NURSE Gender Identity Not on file Sexual Orientation Not on file 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 Not on file Not on file Not on file documented as of this encounter Last Filed Vital Signs Vital Sign Reading Time Taken Comments Blood Pressure 140/100 03/13/2021 1:40 PM VOCATIONAL NURSE Pulse 86 03/13/2021 1:40 PM VOCATIONAL NURSE Temperature 37.4 ??C (99.4 ??F) 03/13/2021 1:40 PM CS T Respiratory Rate - - Oxygen Saturation 96% 03/13/2021 1:40 PM VOCATIONAL NURSE Inhaled Oxygen Concentration - - Weight 79.7 kg (175 lb 12.8 oz) 03/13/2021 1:40 PM VOCATIONAL NURSE Height 160 cm (5' 3 ) 03/13/2021 1:40 PM VOCATIONAL NURSE Body Mass Index 31.14 03/13/2021 1:40 PM VOCATIONAL NURSE documented in this encounter Patient Instructions * Patient Instructions* Samantha Martinez, PACK OUT OPERATOR - 03/13/2021 1:30 PM VOCATIONAL NURSE Images from the original note were not included. The rapid COVID test performed today in clinic was positive. The following are recommendations for treating the symptoms related to COVID19. What is the difference between Influenza (Flu) and COVID-19? Influenza (Flu) and COVID-19 are both contagious respiratory illnesses, but they are caused by different viruses. COVID-19 is caused by infection with a new coronavirus (called SARS-CoV-2) and flu is caused by infection with influenza viruses. There are some whittaker differences between flu and COVID-19. COVID-19 seems to spread more easily than flu and causes more serious illnesses in some people. It can also take longer before people show symptoms and people can be contagious for longer. The best way to prevent infection is to avoid being exposed to the virus. Because some of the symptoms of flu and COVID-19 are similar, it may be hard to tell the difference between them based on symptoms alone, and testing may be needed to help confirm a diagnosis.While more is learned every day, there is still a lot that is unknown about COVID-19 and the virus that causes it. The [facility] Department will be reaching out to all patients who have a positive test for further discussion and monitoring. Continue to self isolate until at least 5 days have passed since symptom onset, your symptoms have improved, and you have been fever free without the use of fever reducing medications for at least 24 hours. The CDC recommends that after 5 days of isolation if you are fever free and symptoms have improved that you can come out of isolation but please continue to wear your mask. You may use acetaminophen and/or ibuprofen to control pain and fever. If you have chronic liver disease, have ever had a stomach ulcer or gastrointestinal bleeding talk with your healthcare provider before using these medicines. Aspirin should never be given to anyone under 18 years of age who is ill with a viral infection or fever. It may cause severe liver or brain damage. Your appetite may be poor, so a light diet is ok. Stay well hydrated by drinking 6 to 8 glasses of fluids per day (water, soft drinks, juices, tea, or soup). Extra fluids will help loosen secretions in the nose and lungs. Farf-xuf-zaadhyo cold medicines will not shorten the length of time you???re sick, but they may be helpful for relieving the following symptoms: headache, cough, sore throat, and nasal and sinus congestion. If you take prescription medicines, ask your healthcare provider or pharmacist which pkuj-ygt-imbbiai medicines are safe to use. (Note: DO NOT use decongestants if you have high blood pressure.) Steps to help prevent the spread of COVID-19 if you are sick If you are sick with COVID-19 or think you might have COVID-19, follow the steps below to care for yourself and to help protect other people in your home and community. Stay home except to get medical care ??? Most people with COVID-19 have mild illness and are able to recover at home without medical care. Do not leave your home, except to get medical care. Do not visit public areas. ??? Take care of yourself. Get rest and stay hydrated. Take wejf-uaw-mqsczta medicines to help you feel better. ??? Stay in touch with your doctor. Call before you get medical care. Be sure to get care if you have trouble breathing, or have any other emergency warning signs, or if you think it is an emergency. ??? Avoid using public transportation, ride-sharing, or taxis. Monitor your symptoms ??? Symptoms of COVID-19 include fever, cough, shortness of breath or difficulty breathing, fatigue, muscle or body aches, headache, new loss of taste or smell, sore throat, congestion, runny nose, nausea, vomiting, or diarrhea. When to Seek Medical Attention If you develop emergency warning signs for COVID-19 get medical attention immediately. Emergency warning signs include*: ??? Trouble breathing ??? Persistent pain or pressure in the chest ??? New confusion or inability to arouse ??? Bluish lips or face *This list is not all inclusive. Please consult your medical provider for any other symptoms that are severe or concerning. Call 911 if you have a medical emergency: If you have a medical emergency and need to call 911, notify the zmt operator that you have or think you might have, COVID-19. If possible, put on a facemask before medical help arrives. Separate yourself from other people in your home, this is known as home isolation ??? As much as possible, you should stay away from other people and pets in your home. You should stay in a specific ???sick room?? if possible. Use a separate bathroom, if available. If you need earlene around other people or animals in or outside of the home, wear a mask For more information on sharing close living quarters with someone who is sick visit https://www.cdc .gov/coronavirus/2019-ncov/gcxya-oilc-cnpjlm/ahyeur-sd-dprhs-quarters.html For more information on COVID-19 and pets visit https://www.cdc.gov/coronavirus/2019-ncov/faq.html Call ahead before visiting your doctor ??? Many medical visits for routine care are being postponed or done by phone or telemedicine. ??? If you have a medical appointment that cannot be postponed, call your doctor???s office, and tell them you have or may have COVID-19. This will help the office protect themselves and other patients. FACT SHEET FOR PATIENTS, PARENTS AND CAREGIVERS EMERGENCY USE AUTHORIZATION (EUA) OF REGEN-COVTM (casirivimab and imdevimab) FOR CORONAVIRUS DISEASE 2019 (COVID-19) You are being given a medicine called REGEN-COV (casirivimab and imdevimab) for the treatment or post-exposure prevention of coronavirus disease 2019 (COVID-19). SARS-CoV-2 is the virus that causes COVID-19. This Fact Sheet contains information to help you understand the potential risks and potential benefits of taking REGEN-COV. Receiving REGEN-COV may benefit certain people with COVID-19 and may help prevent certain people who have been exposed to someone who is infected with SARS-CoV-2 from getting SARS-CoV-2 infection, or may prevent certain people who are at high risk of exposure to someone who is infected with SARS-CoV-2 from getting SARS-CoV-2 infection. Read this Fact Sheet for information about REGEN-COV. Talk to your healthcare provider if you have questions. It is your choice to receive REGEN-COV or stop at any time. WHAT IS COVID-19? COVID-19 is caused by a virus called a coronavirus, SARS-CoV-2. People can get COVID-19 through contact with another person who has the virus. COVID-19 illnesses have ranged from very mild (including some with no reported symptoms) to severe, including illness resulting in . While information so far suggests that most COVID-19 illness is mild, serious illness can happen and may cause some of your other medical conditions to become worse. People of all ages with severe, long-lasting (chronic) medical conditions like heart disease, lung disease, and diabetes, for example, and other conditions including obesity, seem to be at higher risk of being hospitalized for COVID-19. Older age, with or without other conditions, also places people at higher risk of being hospitalized for COVID19. WHAT ARE THE SYMPTOMS OF COVID-19? The symptoms of COVID-19 include fever, cough, and shortness of breath, which may appear 2 to 14 days after exposure. Serious illness including breathing problems can occur and may cause your other medical conditions to become worse. WHAT IS REGEN-COV (casirivimab and imdevimab)? REGEN-COV is an investigational medicine used in adults and adolescents (12 years of age and older who weigh at least 88 pounds (40 kg)) who are at high risk for severe COVID-19, including hospitalization or for: ??? treatment of mild to moderate symptoms of COVID-19 ??? post-exposure prevention of COVID-19 in persons who are: not fully vaccinated against COVID-19 (Individuals are considered to be fully vaccinated 2 weeks after their second vaccine dose in a 2-dose series [such as the Pfizer or Moderna vaccines], or 2 weeks after a single-dose vaccine [such as Bryn myLINGO? s Gema vaccine]), or, are not expected to build up enough of an immune response to the complete COVID-19 vaccination (for example, someone with immunocompromising conditions, including someone who is taking immunosuppressive medications), and have been exposed to someone who is infected with SARS-CoV-2. Close contact with someone who is infected with SARS-CoV-2 is defined as being within 6 feet for a total of 15 minutes or more, providing care at home to someone who is sick, having direct physical contact with the person (hugging or kissing, for example), sharing eating or drinking utensils, or being exposed to respiratory droplets from an infected person (sneezing or coughing, for example). For additional details, go to https://www.cdc.gov/coronavirus/2019-ncov/fv-rjl-drwibck/quarantine.html, or someone who is at high risk of being exposed to someone who is infected with SARS-CoV-2 because of occurrence of SARS-CoV-2 infection in other individuals in the same institutional setting (for example, as nursing homes, prisons,). REGEN-COV is investigational because it is still being studied. There is limited information known about the safety and effectiveness of using REGEN-COV to treat people with COVID-19 or to prevent COVID-19 in people who are at high risk of being exposed to someone who is infected with SARS-CoV-2. REGEN-COV is not authorized for pre-exposure prophylaxis for prevention of COVID-19. The FDA has authorized the emergency use of REGEN-COV for the treatment of COVID-19 and the post-exposure prevention of COVID-19 under an Emergency Use Authorization (EUA). For more information on EUA, see the ???What is an Emergency Use Authorization (EUA)??? section at the end of this Fact Sheet. WHO SHOULD NOT TAKE REGEN-COV? Do not take REGEN-COV if you have had a severe allergic reaction to REGEN-COV. WHAT SHOULD I TELL MY HEALTH CARE PROVIDER BEFORE I RECEIVE REGEN-COV? Tell your healthcare provider about all of your medical conditions, including if you: ??? Have any allergies ??? Have had a severe allergic reaction including anaphylaxis to REGEN-COV previously ??? Have received a COVID-19 vaccine. ??? Have any serious illnesses ??? Are or plan to become ??? Are or plan to breastfeed ??? Are taking any medications (prescription, bsih-wns-rcqdwkh, vitamins, and herbal products) HOW WILL I RECEIVE REGEN-COV (casirivimab and imdevimab)? REGEN-COV consists of two investigational medicines, casirivimab and imdevimab, given together at the same time through a vein (intravenous or IV) or injected in the tissue just under the skin (subcutaneous injections). Your healthcare provider will determine the most appropriate way for you to be given REGEN-COV. ??? Treatment: If you are receiving an intravenous infusion, the infusion will take 20 to 50 minutes or longer. Your healthcare provider will determine the duration of your infusion. If your healthcare provider determines that you are unable to receive REGENCOV as an intravenous infusion which would lead to a delay in treatment, then as an alternative, REGEN-COV can be given in the form of subcutaneous injections. If you are receiving subcutaneous injections, your dose will be provided as multiple injections given in separate locations around the same time. ??? Post-exposure prevention: If you are receiving subcutaneous injections, your dose will be provided as multiple injections given in separate locations around the same time. If you are receiving an intravenous infusion, the infusion will take 20 to 50 minutes or longer. After the initial dose, if your healthcare provider determines that you need to receive additional doses of REGEN-COV for ongoing protection, the additional intravenous or subcutaneous doses would be administered monthly. WHAT ARE THE IMPORTANT POSSIBLE SIDE EFFECTS OF REGEN-COV (casirivimab and imdevimab)? Possible side effects of REGEN-COV are: ??? Allergic reactions. Allergic reactions can happen during and after infusion or injection of REGEN-COV. Tell your healthcare provider right away or seek immediate medical attention if you get any of the following signs and symptoms of allergic reactions: fever, chills, nausea, headache, shortness of breath, low or high blood pressure, rapid or slow heart rate, chest discomfort or pain, weakness, confusion, feeling tired, wheezing, swelling of your lips, face, or throat, rash including hives, itching, muscle aches, feeling faint, dizziness and sweating. These reactions may be severe or life threatening. ??? Worsening symptoms after treatment: You may experience new or worsening symptoms after infusion or injection, including fever, difficulty breathing, rapid or slow heart rate, tiredness, weakness or confusion. If these symptoms occur, contact your healthcare provider or seek immediate medical attention as some of these symptoms have required hospitalization. It is unknown if these symptoms are related to treatment or are due to the progression of COVID-19. The side effects of getting any medicine by vein may include brief pain, bleeding, bruising of the skin, soreness, swelling, and possible infection at the infusion site. The side effects of getting any medicine by subcutaneous injection may include pain, bruising of the skin, soreness, swelling, and possible infection at the injection site. These are not all the possible side effects of REGEN-COV. Not a lot of people have been given REGEN-COV. Serious and unexpected side effects may happen. REGEN-COV is still being studied so it is possible that all of the risks are not known at this time. It is possible that REGEN-COV could interfere with your body's own ability to fight off a future infection of SARS-CoV-2. Similarly, REGEN-COV may reduce your body???s immune response to a vaccine for SARS-CoV-2. Specific studies have not been conducted to address these possible risks. Talk to your healthcare provider if you have any questions. WHAT OTHER TREATMENT CHOICES ARE THERE? Like REGEN-COV (casirivimab and imdevimab), FDA may allow for the emergency use of other medicines to treat people with COVID-19. Go to https://www.fda.gov/sgvecqwiltafsnhtgbkrf-nxe-n esponse/jkz-afphb-glzfheddhd-slo-wrsupc-ngjjplrmy/emergency-useauthorization for information on theemergency use of other medicines that are not approved by FDA that are used to treat people with COVID-19. Your healthcare provider may talk with you about clinical trials you may be eligible for. It is your choice to be treated or not to be treated with REGEN-COV. Should you decide not to receive REGEN-COV or stop it at any time, it will not change your standard medical care. WHAT OTHER PREVENTION CHOICES ARE THERE? Vaccines to prevent COVID-19 are also available under Emergency Use Authorization. Use of REGEN-COV does not replace vaccination against COVID-19. REGEN-COV is not authorized for pre-exposure prophylaxis for prevention of COVID-19. WHAT IF I AM OR ? There is limited experience using REGEN-COV (casirivimab and imdevimab) in women or mothers. For a mother and unborn baby, the benefit of receiving REGEN-COV may be greater than the risk of using the product. If you are or , discuss your options and specific situation with your healthcare provider. HOW DO I REPORT SIDE EFFECTS WITH REGEN-COV (casirivimab and imdevimab)? Tell your healthcare provider right away if you have any side effect that bothers you or does not go away. Report side effects to FDA MedWatch at www.fda.gov/medwatch or call 1-292-MVZ-1890 or call . HOW CAN I LEARN MORE? Ask your health care provider. ??? Visit www.Synference.Prolebrity ??? Visit https://www.bwpot85hafczwxjgxcbxtbmido.nih.gov/ ??? Contact your local or state public health department. WHAT IS AN EMERGENCY USE AUTHORIZATION (EUA)? The [place] FDA has made REGEN-COV (casirivimab and imdevimab) available under an emergency access mechanism called an EUA. The EUA is supported by a Hammer Repairer of Health and Human Service (HHS) declaration that circumstances exist to justify the emergency use of drugs and biological products during the COVID-19 pandemic. REGEN-COV has not undergone the same type of review as an FDA-approved product. In issuing an EUA under the COVID-19 public health emergency, the FDA must determine, among other things, that based on the totality of scientific evidence available, it is reasonable to believe that the product may be effective for diagnosing, treating, or preventing COVID- 19, or a serious or life-threatening disease or condition caused by COVID-19; that the known and potential benefits of the product, when used to diagnose, treat, or prevent such disease or condition, outweigh the known and potential risks of such product; and that there are no adequate, approved and available alternatives. All of these criteria must be met to allow for the medicine to be used in the treatment of COVID-19 or prevention of COVID-19 during the COVID-19 pandemic. The EUA for REGEN-COV is in effect for the duration of the COVID-19 declaration justifying emergency use of these products, unless terminated or revoked (after which the products may no longer be used). Manufactured by: [employer] [address] [place] [id number] ??2020 [employer], [employer]. All rights reserved. Revised: 09/2020 TIONAL NURSE TIONAL NURSE documented in this encounter Progress Notes * Samantha Martinez NP - 03/13/2021 1:30 PM CST Images from the original note were not included. Patient ID: Rohini Peralta is a 80 y.o. female followed by Phan Garvin MD Chief Complaint Patient presents with ??? Sinus Problem ??? Earache Patient presents to the clinic with reports of congestion, earache, sinus pressure for 4 days. Patient denies fevers, chest pain, difficulty breathing, and diarrhea. Patient is not vaccinated againstCOVID. Patient has taken a friends antibiotic (keflex 500mg), Flonase, and allergy medication for her symptoms. Review of Systems Constitutional: Negative for chills, fatigue and fever. HENT: Positive for congestion, ear pain and sinus pressure. Negative for postnasal drip, rhinorrheaand sore throat. Respiratory: Negative for cough, chest tightness, shortness of breath and wheezing. Cardiovascular: Negative for chest pain. Gastrointestinal: Negative for diarrhea, nausea and vomiting. Musculoskeletal: Negative for myalgias. Neurological: Negative for headaches. Vitals: 03/13/21 1340 BP: 140/100 Pulse: 86 Temp: 37.4 ??C (99.4 ??F) SpO2: 96% Weight: 79.7 kg (175 lb 12.8 oz) Height: 160 cm (5' 3 ) Recent Results (from the past 24 hour(s)) POC Influenza A/B, COVID-19 antigen Collection Time: 03/13/21 2:00 PM Result Value Ref Range Inflenza A Ag, POC Negative Influenza B Ag, POC Negative COVID-19 Ag POC Positive (A) Presumptive Negative, Invalid Physical Exam Vitals reviewed. Constitutional: Appearance: She is well-developed. HENT: Head: Normocephalic. Right Ear: Tympanic membrane, ear canal and external ear normal. Tympanic membrane is not injected,erythematous or bulging. Left Ear: Tympanic membrane, ear canal and external ear normal. Tympanic membrane is not injected, erythematous or bulging. Nose: Congestion present. Right Sinus: No maxillary sinus tenderness or frontal sinus tenderness. Left Sinus: No maxillary sinus tenderness or frontal sinus tenderness. Mouth/Throat: Lips: [place]. Mouth: Mucous membranes are moist. Pharynx: Uvula midline. No pharyngeal swelling, oropharyngeal exudate or posterior oropharyngeal erythema. Tonsils: No tonsillar exudate. Eyes: Conjunctiva/sclera: Conjunctivae normal. Cardiovascular: Rate and Rhythm: Normal rate and regular rhythm. Pulmonary: Effort: Pulmonary effort is normal. No respiratory distress. Breath sounds: Normal breath sounds. No decreased breath sounds, wheezing or rhonchi. Musculoskeletal: General: Normal range of motion. Lymphadenopathy: Cervical: No cervical adenopathy. Skin: General: Skin is warm and dry. Neurological: Mental Status: She is alert and oriented to person, place, and time. Diagnoses and all orders for this visit: COVID-19 (Primary) - POC Influenza A/B, COVID-19 antigen Orders Placed This Encounter Procedures ??? POC Influenza A/B, COVID-19 antigen Order Specific Question: Is the Patient experiencing symptoms consistent with COVID? Answer: Yes Order Specific Question: Date of Symptom Onset Answer: 03/10/2021 Order Specific Question: Is the patient hospitalized? Answer: No Order Specific Question: Is the patient admitted to an ICU? Answer: No Order Specific Question: Is this the first COVID-19 test for this patient? Answer: Unknown Order Specific Question: Does the patient currently work in a healthcare facility with direct patient contact? Answer: Unknown Order Specific Question: Is the patient a resident of a congregate care or living setting? Answer: Unknown Order Specific Question: ? Answer: No Assessment/Plan Lungs CTA, O2 Saturation @96%/RA, low suspicion for pneumonia at this time. Will recommend supportive care for symptoms with f/u precautions including signs/symptoms warranting ER evaluation. ??? Discussed home self-care, follow up needs, and signs and symptoms that warrant immediate medical attention/ER evaluation including worsening fever, increased shortness of breath, severe N/V/D, orany other worrisome symptoms ??? Reviewed isolation/quarantine protocols ??? Discussed symptomatic relief of symptoms ??? Advised to rest and increase oral fluid intake ??? Advised to stay out of work and work release given explaining when patient can return to work Patient Education The rapid COVID test performed today in clinic was positive. The following are recommendations for treating the symptoms related to COVID19. What is the difference between Influenza (Flu) and COVID-19? Influenza (Flu) and COVID-19 are both contagious respiratory illnesses, but they are caused by different viruses. COVID-19 is caused by infection with a new coronavirus (called SARS-CoV-2) and flu is caused by infection with influenza viruses. There are some whittaker differences between flu and COVID-19. COVID-19 seems to spread more easily than flu and causes more serious illnesses in some people. It can also take longer before people show symptoms and people can be contagious for longer. The best way to prevent infection is to avoid being exposed to the virus. Because some of the symptoms of flu and COVID-19 are similar, it may be hard to tell the difference between them based on symptoms alone, and testing may be needed to help confirm a diagnosis.While more is learned every day, there is still a lot that is unknown about COVID-19 and the virus that causes it. [facility] will be reaching out to all patients who have a positive test for further discussion and monitoring. Continue to self isolate until at least 5 days have passed since symptom onset, your symptoms have improved, and you have been fever free without the use of fever reducing medications for at least 24 hours. The CDC recommends that after 5 days of isolation if you are fever free and symptoms have improved that you can come out of isolation but please continue to wear your mask. You may use acetaminophen and/or ibuprofen to control pain and fever. If you have chronic liver disease, have ever had a stomach ulcer or gastrointestinal bleeding talk with your healthcare provider before using these medicines. Aspirin should never be given to anyone under 18 years of age who is ill with a viral infection or fever. It may cause severe liver or brain damage. Your appetite may be poor, so a light diet is ok. Stay well hydrated by drinking 6 to 8 glasses of fluids per day (water, soft drinks, juices, tea, or soup). Extra fluids will help loosen secretions in the nose and lungs. Ursy-jxi-ezvrrlu cold medicines will not shorten the length of time you???re sick, but they may be helpful for relieving the following symptoms: headache, cough, sore throat, and nasal and sinus congestion. If you take prescription medicines, ask your healthcare provider or pharmacist which vjue-udi-mznyxhg medicines are safe to use. (Note: DO NOT use decongestants if you have high blood pressure.) Steps to help prevent the spread of COVID-19 if you are sick If you are sick with COVID-19 or think you might have COVID-19, follow the steps below to care for yourself and to help protect other people in your home and community. Stay home except to get medical care ??? Most people with COVID-19 have mild illness and are able to recover at home without medical care. Do not leave your home, except to get medical care. Do not visit public areas. ??? Take care of yourself. Get rest and stay hydrated. Take avqa-dqt-tkvrzre medicines to help you feel better. ??? Stay in touch with your doctor. Call before you get medical care. Be sure to get care if you have trouble breathing, or have any other emergency warning signs, or if you think it is an emergency. ??? Avoid using public transportation, ride-sharing, or taxis. Monitor your symptoms ??? Symptoms of COVID-19 include fever, cough, shortness of breath or difficulty breathing, fatigue, muscle or body aches, headache, new loss of taste or smell, sore throat, congestion, runny nose, nausea, vomiting, or diarrhea. When to Seek Medical Attention If you develop emergency warning signs for COVID-19 get medical attention immediately. Emergency warning signs include*: ??? Trouble breathing ??? Persistent pain or pressure in the chest ??? New confusion or inability to arouse ??? Bluish lips or face *This list is not all inclusive. Please consult your medical provider for any other symptoms that are severe or concerning. Call 911 if you have a medical emergency: If you have a medical emergency and need to call 911, notify the zmt operator that you have or think you might have, COVID-19. If possible, put on a facemask before medical help arrives. Separate yourself from other people in your home, this is known as home isolation ??? As much as possible, you should stay away from other people and pets in your home. You should stay in a specific ???sick room?? if possible. Use a separate bathroom, if available. If you need earlene around other people or animals in or outside of the home, wear a mask For more information on sharing close living quarters with someone who is sick visit https://www.cdc .gov/coronavirus/2019-ncov/qcfnp-tfmw-pyvvnz/ctfbcb-rt-wblux-quarters.html For more information on COVID-19 and pets visit https://www.cdc.gov/coronavirus/2019-ncov/faq.html Call ahead before visiting your doctor ??? Many medical visits for routine care are being postponed or done by phone or telemedicine. ??? If you have a medical appointment that cannot be postponed, call your doctor???s office, and tell them you have or may have COVID-19. This will help the office protect themselves and other patients. Samantha Martinez NP TIONAL NURSE documented in this encounter Plan of Treatment Not on file documented as of this encounter Procedures Procedure Name Priority Date/Time Associated Diagnosis Comments POC INFLUENZA A/B, COVID-19 ANTIGEN Routine 03/13/2021 2:00 PM VOCATIONAL NURSE COVID-19 documented in this encounter Results * (ABNORMAL) POC Influenza A/B, COVID-19 antigen (03/13/2021 2:00 PM VOCATIONAL NURSE) Influenza A Ag, POC Negative [facility] Influenza B Ag, POC Negative [facility] COVID-19 Ag POC Positive(A) Presumptive Negative, Invalid [facility] 03/13/2021 2:00 PM VOCATIONAL NURSE us Samantha Martinez NP POINT OF CARE TEST ORDERABLES Final Result [facility] [place] [address], [facility] documented in this encounter Visit Diagnoses Diagnosis COVID-19- Primary documented in this encounter Additional Health Concerns Infection Onset Date Last Indicated Resolved Time COVID: Suspected 03/13/2021 03/13/202103/1303/13/2021 2:00 PM VOCATIONAL NURSE COVID19 03/13/2021 03/13/2021 03/27/2021 3:05 AM VOCATIONAL NURSE documented as of this encounter Care Teams Door Repairman Relationship Specialty Start Date End Date Phan Garvin MD PCP - General Family Medicine 03/13/21 09/13/22 documented as of this encounter
--- OUTSIDE RECORDS SUMMARY | 2024-03-15 17:47 | XMS_ITS | Referral Summary ---
Author Organization [facility] Address [address] [place] [address] Care Team Providers Care Data Collection Associate Name Role Phone Angelica Frankel MD Primary Care Provider [phone] Source Comments [facility],non-owned Affiliates and Associated Physician Practices is amultiple site organization consisting of ambulatory clinics and hospital sitesin [place], [place], [place] and [place]. This disclosure is being madepursuant to the Care Everywhere program and may not contain all information available regarding this patient. Last updated 17.[facility] [employer] Social History Tobacco Use Types Packs/Day Years Used Date Smoking Tobacco: Never Assessed Sex and Gender Information Value Date Recorded Sex Assigned at Not on file Gender Identity Not on file Sexual Orientation Not on file Plan of Treatment Not on file Care Teams Data Collection Associate Relationship Specialty Start Date End Date Angelica Frankel MD [address] [place] [address] [address] [place] [address] PCP - General 10/10/16
--- OUTSIDE RECORDS SUMMARY | 2024-03-15 17:47 | XMS_ITS | Clinical Summary ---
Author Organization [facility] Address [address] [facility] [place] [address] Care Team Providers Care Tailing Machine Operator Name Role Phone Angelica Frankel MD Primary Care Provider [phone] Source Comments [facility],non-owned Affiliates and Associated Physician Practices is amultiple site organization consisting of ambulatory clinics and hospital sitesin [place], [place], [place] and [place]. This disclosure is being madepursuant to the Care Everywhere program and may not contain all information available regarding this patient. Last updated 17.[facility] [employer] Social History Tobacco Use Types Packs/Day Years [...] age to complete this topic Care Teams Tailing Machine Operator Relationship Specialty Start Date End Date Angelica Frankel MD [address] [place] [address] [address] [place] [address] PCP - General 10/10/16
--- OUTSIDE RECORDS SUMMARY | 2024-03-15 17:47 | XMS_ITS | CONTINUITY OF CARE DOCUMENT ---
Author Name booker teresajhoana Address Unknown Organization [facility] Address [address] [place] [address] [address] [place] [address] Phone [phone] Care Team Providers Care Sales Professional Bilingual Name Role Phone Ford Zarate MD Unavailable [phone] Bj Jimenez DO Unavailable [phone] RIGO GONZALEZ MD Unavailable PROBLEMS Condition Status Date Provider Notes Screening for cardiovascular condition active Holli Ward INSURANCE PROVIDERS Payer name Policy type / Coverage type Merrill red libertarian [place] MEDICARE PART B Medicare [id number] TREATMENT PLAN Date Name CT, Coronary Calcium Score HISTORY OF PROCEDURES Procedure Date Procedure Name Provider Procedure Notes S tatus CT- Coronary CA score Siddharth Shah MD completed
--- OUTSIDE RECORDS SUMMARY | 2024-03-15 17:47 | XMS_ITS | Clinical Summary ---
Author Organization [facility] Address [address] [place] [address] Phone Care Team Providers Care Manager Heart Failure Name Role Phone Angelica Frankel MD Primary Care Provider [phone] Allergies Active Allergy Reactions Criticality Noted Date [...] 2023 11/15/2016 Medical Devices Implanted Type Area Landfill Gas Collection Operator Device Identifier Shelf Expiration Date Model / Serial / Lot Sling Desara System Sulemna-[id number] - [id number] Implanted:Qty: 1 on 12/20/2016 by Gaby Ceballos MD at [facility] Sling N/A: Vagina [employer] 08/16/2021 SULEMAN-DS01 / / [id number] Description:PO#[id number] Advance Directives For more information, please contact: [phone] * Full Code (Latest Code Status on File) Date Activated Date Inactivated Comments 12/20/2016 7:23 AM 12/20/2016 12:56 PM * Full Code Date Activated Date Inactivated Comments 10/09/2011 11:21 AM 10/09/2011 3:18 PM Care Teams Manager Heart Failure Relationship Specialty Start Date End Date Angelica Frankel MD [address] [place] [address] [address] [address] PCP - General Internal Medicine 08/11/11
--- OUTSIDE RECORDS SUMMARY | 2024-03-15 17:47 | XMS_ITS | Patient Health Summary ---
Author Organization [facility] Address [address] [facility] [place] [address] Care Team Providers Care Hydration Plant Operator Name Role Phone Angelica Frankel MD Primary Care Provider [phone] Note from [facility],non-owned Affiliates and Associated Physician Practices is amultiple site organization consisting of ambulatory clinics and hospital sitesin [place], [place], [place] and [place]. This disclosure is being madepursuant to the Care Everywhere program and may not contain all information available regarding this patient. Last updated 17.[facility] Social History Tobacco Use Types Packs/Day Years [...] time period is included. Result CASE: PATIENT: MARAI A JEAN PATHOLOGIC DIAGNOSIS: Left neck: BASAL CELL CARCINOMA NOT PRESENT AT MARGIN DERMAL SCAR CLINICAL DATA: BCC. Check margins. Previous Bx: ??[id number]. GROSS DESCRIPTION: Received is one formalin filled container labeled with the patient's name and designated left neck. The specimen consists of an ellipse measuring [id number] and is oriented with a notch at [...] Daniela Cifuentes M.D. Electronically signed 12/07/2011 4:33:43PM [facility] Comment: Performed at: Dermatopathology Laboratory [facility] Department of Dermatology [address] [place] [address], [address] [place] [address] Phone number: [phone] Toll Free: [phone] FAX: [phone] 12/05/2011 12/06/2011 [facility] LAB - PATHOLOGY/CYTO LOGY ORDERABLES [facility] [address] [place] [address]. 5[address] Floor Lab [address] [phone] Care Teams Hydration Plant Operator Relationship Specialty Start Date End Date Angelica Frankel MD [address] [facility] [address] [place] [address] PCP - General 10/10/16
--- OUTSIDE RECORDS SUMMARY | 2024-03-15 17:47 | XMS_ITS | Encounter Summary ---
Author Organization [facility] Address [address] [place] [address] Care Team Providers Care Technical Support Analyst Name Role Phone Angelica Frankel MD Primary Care Provider [phone] Reason for Visit * Auth/Cert Specialty Diagnoses / Procedures Referred By Dacia t Referred To Contact Procedures FL REPAIR VAGINA/PERINEUM FL REPR VAGINAL PROLAPSE,SACROSP LIG Gaby Ceballos MD [address] [address] Referral ID Status Reason Start Date Expiration Date Visits Re quested Visits Authorized [id number] 11/02/2016 1 1 Encounter Details Date Type Department Care Team (Late st Contact Info) Description 12/20/2016 6:55 AM CDT - 12/21/2016 10:42 AM CDT Hospital Encounter [facility] [address] [place] [id number] Gaby Ceballos MD [address] [address] Discharge Disposition: Home or Self Care Social [...] 75 y.o. Gender Female Date of 1940 [facility] [id number] Attending Physician Gaby Ceballos, * Discharging Physician Martha Lyon MD PCP Angelica Frankel MD Admit Date 12/20/2016 Discharge Date Length of Stay LOS: 0 days Procedures performed: Procedure(s) (LRB): SACROSPINOUS LIGAMENT FIXATION (N/A) ANTERIOR POSTERIOR REPAIR WITH ENTEROCELE & CYSTOCELE & RECTOCELE (N/A) COLPOPERINEORRHAPHY (N/A) FOREIGN BODY REMOVAL (N/A) Hospital Course: Maria A Patel is a 75 y.o. female who was admitted to [facility] on 12/20/2016 and underwent reconstructive surgery involving [...] LTD Gaby Ceballos M.D. Karla Lorenzo M.D. [address] [place] [address]. [address] [address] Exchange: Off[employer]ice POST OPERATIVE INSTRUCTIONS 1. During [...] post-op care Martha Lyon MD * Martha Petersno RN - 12/21/2016 6:11 AM CDT Pt [...] [address] [place] [address] FAX: [phone] PATIENT: Maria A Patel DATE OF : [...] Cancer SOCIAL HISTORY (Detailed) Preferred language is Australian. MARITAL STATUS/FAMILY/SOCIAL SUPPORT Currently . Smoking status: [...] Genitourinary * Perineum - attenuated. Vagina - [id number]. Cervix - surgically absent. Uterus - surgically [...] of Surgery: 12/20/2016 SURGEON Gaby Ceballos MD JEWELRY BENCH MOLDER PREOPERATIVE DIAGNOSIS Post-hysterectomy vaginal vault prolapse, enterocele, [...] discharge planning. Shyann Rucker RN, BSN Nurse Industrial Design Engineer [id number] * Care Plan - Hilda Drew RN [...] REMOVAL 12/20/2016 8:30 AM CDT Case Notes [facility] 11/03/16; /CPT 04500, 21941, 09079, 08542, 91097 COLPOPERINEORRHAPHY 12/20/2016 8 :30 AM CDT Case Notes [facility] 11/03/16; /CPT 47170, 24851, 50999, 47175, 92133 ANTERIOR POSTERIOR REPAIR 2016 8:30 AM CDT Case Notes [facility] 11/03/16; /CPT 63856, 16117, 33095, 05996, 63638 SACROSPINOUS LIGAMENT FIXATION 12/20/2016 8:30 AM CDT Case Notes [facility] 11/03/16; /CPT 23795, 52196, 72450, 23705, 83829 VERIFICATION BLOOD GROUP Stat 017 7:55 AM CDT Folic acid deficiency (non anemic) documented in this encounter Results * PATHOLOGY (12/20/2016 10:22 AM CDT) CASE REPORT Surgical Pathology Report ? Case: [id number] ? Authorizing Provider: ??Gaby Ceballos MD Collected: ? 12/20/2016 10:22 AM ? Ordering Location: ? [facility] ?Received: ?12/20/2016 12:19 PM ? Operating Room ? Pathologist: ? Kasie Adame MD ? Specimen: ?Vagina, vaginal foreign body ? 12/21/2016 5:26 PM [facility] FINAL DIAGNOSIS Vagina, excision: - Fibroadipose tissue with foreign body giant cell reaction to polarizable foreign material. - No evidence of malignancy. 12/21/2016 5:26 PM [facility] IMEN DESCRIPTION Vaginal foreign body. 12/21/2016 5:26 PM [facility] OPERATIVE PROCEDURE Sacrospinous ligament fixation, bladder suspension sling insertion, catheter suprapubic insertion, anterior posterior repair with enterocele and cystocele and rectocele, colpoperineorrhaphy, foreign body removal. 12/21/2016 5:26 PM [facility] CLINICAL DIAGNOSIS Not provided (prolapse, status post laparoscopic hysterectomy and laparoscopic Alvarez per Epic). 12/21/2016 5:26 PM [facility] GROSS DESCRIPTION Received in a single container [...] or plastic, white to bob material. Two guest experience representative sections are submitted labeled A1. The remaining tissue and foreign body are returned to their original container and saved. Gross photographs were taken prior to sectioning. ALG/saba 12/21/2016 5:26 PM CDT [facility] MICROSCOPIC DESCRIPTION The slides are labeled [id number] and Maria A Patel. Sections of the soft tissue attached to the foreign material received shows benign fibroadipose tissue with foreign body giant cell reaction to polarizable foreign material. No evidence of malignancy is identified. 12/21/2016 5:26 PM CDT [facility] COMMENT Special stain and/or immunohistochemical results are interpreted with controls that demonstrate appropriate staining reactions. Note on use of immunocytochemistry reagents: This test was developed and its performance characteristic determined by [facility], Department of Laboratory Medicine. It has [...] WF, WB and WH are performed by [address], [address]. All other case types are performed by [place] [address] [facility], [address]. 12/21/2016 5:26 PM CDT [facility] Tissue SPECIMEN FROM VAGINA / Unknown 12/20/2016 10:22 AM CDT 12/20/2016 12:19 PM CDT Gaby Ceballos MD PATHOLOGY/CYTOL OGY ORDERABLES [facility] CLIA# [id number] [address] [place] [address] * VERIFICATION BLOOD GROUP (12/20/2016 7:55 AM CDT) ABO GROUP O 12/20/2016 7:24 AM CDT [facility] RH (D) TYPE Positive 12/20/2016 7:24 AM CDT [facility] Blood Venipuncture / Unknown 12/20/2016 7:55 AM CDT 12/20/2016 8:02 AM CDT Judit Peck MD BLOOD BANK ORDKaren DAY [facility] CLIA# [id number] [address] [place] [address] documented in this encounter Visit Diagnoses Diagnosis [...] field) documented in this encounter Care Teams Technical Support Analyst Relationship Specialty Start Date End Date Angelica Frankel MD [address] [address] PCP - General Internal Medicine 08/11/11 documented as of this encounter
--- OUTSIDE RECORDS SUMMARY | 2024-03-15 17:47 | XMS_ITS | Encounter Summary ---
Author Organization [facility] Address [facility] [place] [address] Care Team Providers Care Supervisor Air Conditioning Installer Name Role Phone Angelica Frankel MD Primary Care Provider [phone] Encounter Details Date Type Department Care Team [...] on filedocumented in this encounter Care Teams Supervisor Air Conditioning Installer Relationship Specialty Start Date End Date Angelica Frankel MD [address] [place] [address] [address] [place] [address] PCP - General 10/10/16 documented as of this encounter
--- OUTSIDE RECORDS SUMMARY | 2024-03-15 17:48 | XMS_ITS | Encounter Summary ---
Author Organization [facility] Healthcare Address [address] [place] [address] Care Team Providers Care Airport Baggage Screener Name Role Phone Phan Garvin MD Primary Care Provider [phone] Phan Garvin MD Unavailable [phone] Siddharth Jennings MD Unavailable [phone] Reason for Referral * Consultation (Routine) - Closed Specialty Diagnoses / Procedures Referred By Contac t Referred To Contact Cardiology Diagnoses Paroxysmal atrial fibrillation (CMS/HCC) (HCC) Siddharth Jennings MD [address] [place] [address] Phone: tel: fax: Horace Santoro MD [address] [place] [address] Phone: tel: fax: Referral ID Status Reason Start Date Expiration Date V isits Requested Visits Authorized [id number] Closed Specialty Services Required 10/09/2023 11/07/2024 1 1 Question Answer Please select the performing region: [facility] Medical Group [[id number]] Please select the performing department: [facility] [[id number]] To provider: HORACE SANTORO [[id number]] # of visits: 1 Comments Referral for LAAO or watchman Encounter Details Date Type Department Care Team (Late st Contact Info) Description 10/08/2023 Telephone [facility] Medical Group Cardiology [address] [place] [address] Siddharth Jennings MD [address] [place] [address] Social History Tobacco Use Types Packs/Day Years Used Date Smoking Tobacco: Never Smokeless Tobacco: Never Alcohol Use Standard Drinks/Week Comments Yes 0 (1 standard drink = 0.6 oz pur e alcohol) [facility] Utilities Answer Date Recorded In [...] often do you attend chur ch or sabianist services? 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 * Telephone Encounter - Tami Aaron - 10/31/2023 2:01 PM CDT Pt requesting lab orders be sent to [facility] ([facility] [place] in [place] because they did not receive it. Pt is there now. Contact:[phone] * Telephone Encounter - Lisha Nair RN - 10/26/2023 9:06 AM CDT Lab order sent to [facility]. * Addendum Note - Lisha Nair RN - 10/26/2023 9:06 AM CDTAddended by: LISHA NAIR on: 10/26/2023 09:06 AM Modules accepted: Orders * Telephone Encounter - Lynnette Amin - 10/26/2023 8:57 AM CDT Pt requesting lab orders be sent to [facility] ([facility] [place]) on [address] in [place]. Contact:[phone] * Telephone Encounter - Lisha Nair RN [...] CDT Pt returned call. Reviewed response from [facility] below. Pt appreciative. * Telephone Encounter - Lisha Nair RN - 10/23/2023 1:03 PM CDT LM on with response from [facility] below. Advised pt to return call with [...] wants to be sure that she heard [facility] correctly at last OV and that if she is not on blood thinners that she has a 5-10% chance of having a stroke due to a- fib. Will forward to [facility]. Please advise. * Telephone Encounter - Tami [...] was not on AC, she told the satellite technician she had trouble bleeding but she was [...] WBC 6.5 3.8 - 10.8 Thousand/u L [facility] ([facility] [place] dominick Sean RBC, POC 4.38 3.80 - 5.10 Million/uL [facility] ([facility] [place] dominick Estrada Hgb 13.2 11.7 - 15.5 g/dL [facility] Estrada Hct 41.9 35.0 - 45.0 % [facility] MCV 95.7 80.0 - 100.0 fL [facility] domiinck Estrada MCH 30.1 27.0 - 33.0 pg [...] BLOOD ORDERABLES Fin al Result DESTINEE Estrada [address] [place] [address] documented in this encounter Visit Diagnoses Diagnosis Paroxysmal atrial fibrillation (CMS/HCC) (HCC)- Primary Atrial fibrillation Anemia, unspecified type documented in this encounter Care Teams Airport Baggage Screener Relationship Specialty Start Date End Date Phan Garvin MD PCP - General Family Medicine 09/14/22 Phan Garvin MD Family Medicine 09/14/22 Siddharth Jennings MD [address] [address] Consulting Physician Cardiology 10/10/23 documented as of this encounter
--- OUTSIDE RECORDS SUMMARY | 2024-03-15 17:48 | XMS_ITS | Encounter Summary ---
Author Organization [facility] Healthcare Address [address] [place] [address] Care Team Providers Care Recreational Therapy Aide Name Role Phone Phan Garvin MD Primary Care Provider [phone] Phan Garvin MD Unavailable [phone] Siddharth Jennings MD Unavailable [phone] Reason for Referral * Consultation (Routine) - Canceled Specialty Diagnoses / Procedures Referred By Contac t Referred To Contact Cardiology Diagnoses Paroxysmal atrial fibrillation (CMS/HCC) (HCC) Payal Carrasquillo NP [address] [place] [address] Phone: tel: fax: Judy Fabian MD [address] [address] Phone: tel: fax: Referral ID Status Reason Start Date Expiration Date Visits Requested Visits Authorized [id number] Canceled Specialty Services Required 12/03/2023 01/01/2025 1 1 Question Answer Please select the performing region: [facility] Medical Group [[id number]] Please select the performing department: [facility] [[id number]] To provider: JUDY FABIAN [[id number]] # of visits: 1 Comments New pt referral for afib, pt would like to discuss ablation. Please call pt for an appt. Thank you! Reason for Visit * Reason Onset Date Comments EP referral 12/03/2023 Encounter Details Date Type Department Care Team (Late st Contact Info) Description 12/03/2023 Telephone [facility] Medical Group Cardiology [address] [place] [address] Siddharth Jennings MD [address] [place] [id number] EP referral Social History Tobacco Use Types Packs/Day Years Used Date Smoking Tobacco: Never Smokeless Tobacco: Never Alcohol Use Standard Drinks/Week Comments Yes 0 (1 standard drink = 0.6 oz pur e alcohol) [facility] Utilities Answer Date Recorded In the [...] often do you attend chur ch or amish services? Never 07/20/2023 Do you [...] place to sleep or slept in a usp (including now)? No 07/20/2023 Personal Safety Answer Date Recorded Have you ever been in or are you currently in a harmful physical or emotional relationship or is someone making you feel afraid or unsafe? 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 BEAM FITTER * Telephone Encounter - Carol Darnell RN - 02/18/2024 12:[address]TER [address]-FYI Spoke with pt regarding her message, offered her a referral to [facility] or [facility] and she is unsure asshe doesn't drive to [facility] herself and her dgt works. Pt did not want a new referral sent at this time and would like to discuss with MJF at her appt next week. BEAM FITTER * Telephone Encounter - Catrachita Sage - 02/18/2024 11:53 AM CST Patient is needing a new referral for an EP due to Dr. Fabian leaving his practice. Please advise. Thank you. Contact [phone] BEAM FITTER * Telephone Encounter - Payal Carrasquillo NP [...] AM CDT Pt requesting referral to an cd mixer helper be sent to Dr. Fabian at [facility]. Contact: documented in this encounter Plan of Treatment Scheduled Referrals Name Type Priority Associated Diagnoses Orde r Schedule Ambulatory referral to Cardiology Outpatient Referral Routine Paroxysmal atrial fibrillation (CMS/HCC) (HCC) Expected: 12/10/2023 (Approximate), Expires: 12/02/2024 documented as of this encounter Visit Diagnoses Diagnosis Paroxysmal atrial fibrillation (CMS/HCC) (HCC)- Primary Atrial fibrillation documented in this encounter Care Teams Recreational Therapy Aide Relationship Specialty Start Date End Date Phan Garvin MD PCP - General Family Medicine 09/14/22 Phan Garvin MD Family Medicine 09/14/22 Siddharth Jennings MD [address] [place] [address] Consulting Physician Cardiology 10/10/23 documented as of this encounter
--- OUTSIDE RECORDS SUMMARY | 2024-03-15 17:48 | XMS_ITS | Encounter Summary ---
Author Organization [facility] Address [address] [place] [address] Phone Care Team Providers Care Sleep Technician Name Role Phone Phan Garvin MD Primary Care Provider [phone] Phan Garvin MD Unavailable [phone] Siddharth Jennings MD Unavailable [phone] Reason for Visit * Reason Onset Date Comments UACX result 11/23/2023 Encounter Details Date Type Department Care Team (Late st Contact Info) Description 11/23/[address] [facility] Obstetrics and Gynecology [facility] 7th [address] [place] [address] Maria Esther Brown RN UACX result Social History Tobacco Use Types Packs/Day Years Used Date Smoking Tobacco: Never Smokeless Tobacco: Never Alcohol Use Standard Drinks/Week Comments Yes 0 (1 standard drink = 0.6 oz pur e alcohol) [facility] Utilities Answer Date Recorded In the past 12 months has [employer] electric, gas, oil, or water company threatened [...] often do you attend chur ch or mormon services? Never 07/20/2023 Do you belong to any clubs o r organizations such as adventist groups, unions, fraternal or athletic groups, or [...] on file Legal Sex Female 7:11 PM IRRIGATIONIST Gender Identity Not on file Sexual Orientation [...] cath specimen if symptomatic. Patient is in [place], [place] until Sunday and has been taking Cefdinir BID per MD in [place] whenshe had UTI. Denies symptoms at this [...] on filedocumented in this encounter Care Teams Sleep Technician Relationship Specialty Start Date End Date Phan Garvin MD PCP - General Family Medicine 09/14/22 Phan Garvin MD Family Medicine 09/14/22 Siddharth Jennings MD [address] [facility] [address] [address] Consulting Physician Cardiology 10/10/23 documented as of this encounter
--- OUTSIDE RECORDS SUMMARY | 2024-03-15 17:48 | XMS_ITS | Encounter Summary ---
Author Organization [facility] Address [address] [place] [address] Care Team Providers Care Music Publisher Name Role Phone Angelica Frankel MD Primary Care Provider [phone] Encounter Details Date Type Department Care Team (Late st Contact Info) Description 11/29/2016 11:00 AM CDT - 11/29/2016 11:59 PM CDT Hospital Encounter [facility] [address] [place] [address] Gaby Ceballos MD [address] [place], [place] [id number] Discharge Disposition: Home or Self Care Social [...] A Peralta Age: 75 y.o. Sex: female [facility]: [id number] Procedure: SACROSPINOUS LIGAMENT FIXATION Dr. Ceballos Allergies [...] MASTOID SURGERY ??? HX SPINAL SURGERY ??? [place] COLONOSCOPY FLX DX W/COLLJ SPEC WHEN PFRMD 10/09/2011 COLONOSCOPY performed by Cristopher Quezada MD at [facility] Social History Substance Use Topics ??? Smoking [...] was obtained directly from the patient or underwriting sales representative or caregiver or another available healthcare resource and updated in [facility] EMR. REPORT AND NECESSARY FOLLOW-UP History and physical performed in [facility], tests (ECG and/or blood work) reviewed. Abnormal Results Found: no Further Testing or Evaluation Required: no Final [facility] Review: May proceed with procedure/surgery: no, awaiting office note from PCP. Ptscheduled to see him 12/04/16 for clearance. Stop bang score is 2. Rodri Lillianadominick Kale TANK STORAGE SUPERVISOR-C 12/07/16 Addendum 12/04/16 Office note from PCP She is cleared for surgery Final [facility] Review: May proceed with procedure/surgery: YES [...] - 9.8 K/uL 11/29/2016 1:59 PM CDT [facility] LABORATORY SERVICES [facility] RBC 4.67 3.90 - 4.90 M/uL 11/29/2016 1:59 PM CDT [facility] LABORATORY SERVICES - [facility] HEMOGLOBIN 13.7 11.8 - 14.8 g/dL 11/29/2016 1:59 PM CDT [facility] LABORATORY SERVICES - [facility] HEMATOCRIT 43.4 35.5 - 44.0 % 11/29/2016 1:59 PM CDT [facility] LABORATORY SERVICES - [facility] MCV 92.9 82.0 - 99.0 fL 11/29/2016 1:59 PM CDT [facility] LABORATORY SERVICES - [facility] MCH 29.3 27.2 - 32.6 pg 11/29/2016 1:59 PM CDT [facility] LABORATORY SERVICES - [facility] MCHC 31.6 31.5 - 35.5 g/dL 11/29/2016 1:59 PM CDT [facility] LABORATORY SERVICES - [facility] PLATELETS 216 140 - 350 K/uL 11/29/2016 1:59 PM CDT [facility] LABORATORY SERVICES - [facility] MPV 11.5 9.3 - 12.4 fL 11/29/2016 1:59 PM CDT [facility] LABORATORY SERVICES - [facility] RDW 12.8 11.5 - 14.5 % 11/29/2016 1:59 PM CDT [facility] LABORATORY SERVICES - [facility] RDW-STDEV 43.4 37.1 - 48.7 fL 11/29/2016 1:59 PM CDT [facility] LABORATORY SERVICES - [facility] Blood Venipuncture / Unknown 11/29/2016 12:11 PM CDT 11/29/2016 1:47 PM CDT Isiah Tovar MD HEMATOLOGY ORDERABLE S [facility] LABORATORY SERVICES - [facility] CLIA# [id number] [address] [place] [address] * TYPE AND SCREEN (11/29/2016 12:11 PM CDT) ANTIBODY SCREEN Negative 11/29/2016 6:22 PM CDT [facility] LABORATORY SERVICES -- [facility] ABO GROUP O 11/29/2016 6:22 PM CDT [facility]ATORY SERVICES -- [facility] (D) TYPE Positive 11/29/2016 6:22 PM CDT [facility] LABORATORY SERVICES -- [facility] Blood Venipuncture / Unknown 11/29/2016 12:11 PM CDT 11/29/2016 1:47 PM CDT Gaby Ceballos MD BLOOD BANK MANI DAY [facility] Organization Address City/State/ZIP Co de Phone Number [facility] LABORATORY SERVICES -- [facility] CLIA# [id number] [address] [place] [address] documented in this encounter Visit Diagnoses Not on filedocumented in this encounter Care Teams Music Publisher Relationship Specialty Start Date End Date Angelica Frankel MD [address] [place] [address] Rd [address] [address] PCP - General Internal Medicine 08/11/11 documented as of this encounter
--- OUTSIDE RECORDS SUMMARY | 2024-03-15 17:48 | XMS_ITS | Encounter Summary ---
Author Organization [facility] Healthcare Address [address] [place] [address] Care Team Providers Care City Magistrate Name Role Phone Phan Garvin MD Primary Care Provider [phone] Phan Garvin MD Unavailable [phone] Siddharth Jennings MD Unavailable [phone] Encounter Details Date Type Department Care Team (Late st Contact Info) Description 10/09/2023 Orders Only [facility] Medical Group Cardiology [address] [place] [address] Luis Ricketts MD [address] [address] Social History Tobacco Use Types Packs/Day Years Used Date Smoking Tobacco: Never Smokeless Tobacco: Never Alcohol Use Standard Drinks/Week Comments Yes 0 (1 standard drink = 0.6 oz pur e alcohol) [facility] Utilities Answer Date Recorded In the past 12 months has [employer] electric, gas, oil, or water company threatened [...] any clubs o r organizations such as yazidi groups, unions, fraternal or athletic groups, or [...] on file Legal Sex Female 7:11 PM INSEAM TRIMMER Gender Identity Not on file Sexual Orientation [...] AM CDT) Anatomical Region Laterality Modality Other [facility] Jose Raul Ricketts MD [facility] CARDIAC SERVICES PRO CEDURES Final Result documented in this encounter Visit Diagnoses Not on filedocumented in this encounter Care Teams City Magistrate Relationship Specialty Start Date End Date Phan Garvin MD PCP - General Family Medicine 09/14/22 Phan Garvin MD Family Medicine 09/14/22 Siddharth Jennings MD [address] [place] [address] Consulting Physician Cardiology 10/10/23 documented as of this encounter
--- OUTSIDE RECORDS SUMMARY | 2024-03-15 17:48 | XMS_ITS | Encounter Summary ---
Author Organization [facility] Address [address] [place] [address] Phone Care Team Providers Care Food Concession Manager Name Role Phone Phan Garvin MD Primary Care Provider [phone] Phan Garvin MD Unavailable [phone] Siddharth Jennings MD Unavailable [phone] Reason for Referral * Diagnostic Imaging (Routine) - Closed Specialty Diagnoses / Procedures Referred By Contac t Referred To Contact Diagnoses Complicated UTI (urinary tract infection) Diverticulum of bladder History of pelvic surgery Recurrent UTI Procedures [place] Vaginogram Poncho Melgar MD [address] [place] [address] Phone: tel: fax: [address] [address] Referral ID Status Reason Start Date Expiration Date Visits Re quested Visits Authorized [id number] Closed 10/25/2023 11/23/2024 1 1 Encounter Details Date Type Department Care Team (Late st Contact Info) Description 10/25/2023 Telephone [facility] Obstetrics and Gynecology [facility] 7th Floor [address] [place] [address] Maria Esther Brown, RN Social History Tobacco Use Types Packs/Day Years Used Date Smoking Tobacco: Never Smokeless Tobacco: Never Alcohol Use Standard Drinks/Week Comments Yes 0 (1 standard drink = 0.6 oz pur e alcohol) [facility] Utilities Answer Date Recorded In the [...] any clubs o r organizations such as mu-ism groups, unions, fraternal or athletic groups, or [...] file Legal Sex Female 7:11 PM LEAD CARE MANAGER Gender Identity Not on file Sexual Orientation Not on file 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 FINDINGS: Felt Tipping Machine Tender radiographs are unremarkable. ??Normal filling of the [...] for the entirety of the procedure. FINDINGS: Felt Tipping Machine Tender radiographs are unremarkable. Normal filling of the vagina with contrast. A fistula was not identified identified. IMPRESSION: No vaginal fistula. Dictated by: Candie Balderas M.D. The radiology attending physician has personally reviewed this study, and had reviewed and/or edited this written report and agrees with it. Electronically signed by: Fxo Gill M.D. Poncho Melgar MD IMG FLUOROSCOPY [...] specified documented in this encounter Care Teams Food Concession Manager Relationship Specialty Start Date End Date Phan Garvin MD PCP - General Family Medicine 09/14/22 Phan Garvin MD Family Medicine 09/14/22 Siddharth Jennings MD [address] [facility] [address] [place] [address] Consulting Physician Cardiology 10/10/23 documented as of this encounter
--- OUTSIDE RECORDS SUMMARY | 2024-03-15 17:48 | XMS_ITS | Encounter Summary ---
Author Organization [facility] Healthcare Address [address] [place] [address] Care Team Providers Care Office Coordinator Receptionist Name Role Phone Phan Garvin MD Primary Care Provider [phone] hPan Garvin MD Unavailable [phone] Siddharth Jennings MD Unavailable [phone] Encounter Details Date Type Department Care Team (Late st Contact Info) Description 10/29/2023 Telephone [facility] at [address] [place] [address] Konstantin Thompson MD [address] [place] [address] [address] [place] [address] Social History Tobacco Use Types Packs/Day Years Used Date Smoking Tobacco: Never Smokeless Tobacco: Never Alcohol Use Standard Drinks/Week Comments Yes 0 (1 standard drink = 0.6 oz pur e alcohol) [facility] Utilities Answer Date Recorded In the past 12 months has [employer] electric, gas, oil, or water company threatened [...] any clubs o r organizations such as cheondoism groups, unions, fraternal or athletic groups, or [...] on file Legal Sex Female 7:11 PM AUTOMATION AND CONTROLS SUPERVISOR Gender Identity Not on file Sexual Orientation Not on file 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 I called and lefta message for patient to contact the office. Patient is currently established with [facility], Dr. Kumar Jennings. Referral scanned to media. documented in this encounter Plan of Treatment Not on file documented as of this encounter Visit Diagnoses Not on filedocumented in this encounter Care Teams Office Coordinator Receptionist Relationship Specialty Start Date End Date Phan Garvin MD PCP - General Family Medicine 09/14/22 Phan Garvin MD Family Medicine 09/14/22 Siddharth Jennings MD [address] [address] Consulting Physician Cardiology 10/10/23 documented as of this encounter
--- OUTSIDE RECORDS SUMMARY | 2024-03-15 17:48 | XMS_ITS | Encounter Summary ---
Author Organization [facility] Healthcare Address [address] [place] [address] Care Team Providers Care Seam Stay Stitcher Name Role Phone Phan Garvin MD Primary Care Provider [phone] Phan Garvin MD Unavailable [phone] Siddharth Jennings MD Unavailable [phone] Reason for Visit * Reason Onset Date Comments Poss LAAO w/GT? - pt refusing 10/09/2023 Encounter Details Date Type Department Care Team (Late st Contact Info) Description 10/09/2023 Telephone [facility] Medical Group Cardiology [address] [facility] [address] [place] [address] Horace Santoro MD [address] [facility] [address] [place] [address] Poss LAAO w/GT? - pt refusing Social History Tobacco Use Types Packs/Day Years Used Date Smoking Tobacco: Never Smokeless Tobacco: Never Alcohol Use Standard Drinks/Week Comments Yes 0 (1 standard drink = 0.6 oz pur e alcohol) [facility] Utilities Answer Date Recorded In [...] on file Legal Sex Female 7:11 PM DOG SHOW JUDGE Gender Identity Not on file Sexual [...] what she has decided after having discussion w/annealing furnace operator. * Telephone Encounter - Marielena Hallman RN [...] up WM & FU protocols (all @ [facility]) * Telephone Encounter - Marielena Hallman RN - 10/10/2023 3:35 PM CDT They are fine w/letting pt choose. Also to note, Dr Jennings is an flash welding machine operator so he can't do SDM. Pt will [...] on filedocumented in this encounter Care Teams Seam Stay Stitcher Relationship Specialty Start Date End Date Phan Garvin MD PCP - General Family Medicine 09/14/22 Phan Garvin MD Family Medicine 09/14/22 Siddharth Jennings MD [address] [address] Consulting Physician Cardiology 10/10/23 documented as of this encounter
--- OUTSIDE RECORDS SUMMARY | 2024-03-15 17:48 | XMS_ITS | Clinical Summary ---
Author Organization [place] [address] [email or web address] Address [address] [place] [address] Care Team Providers Care Plastic Products Sales Representative Name Role Phone Phan Garvin MD Primary Care Provider [phone] Phan Garvin MD Unavailable [phone] Siddharth Jennings MD Unavailable [phone] Allergies Active Allergy Reactions Criticality Noted Date [...] mg by mouth every morning Active vit C,D-Kj-ombzf-anthony tein-zeaxan (PreserVision AREDS-2) 250-90-40-1 mg capsuleIndicati ons:eye [...] series with small-bowel follow-through Paroxysmal atrial fibrillation ([facility]/HCC) 023 Encounters Date Type Department Care Team Description 03/14/2024 Telephone [facility] Obstetrics and Gynecology [address] [place] [address] 7th [address] [place] [address] Araceli Anderson RN Test Results 03/14/2024 Orders Only [facility] Obstetrics and Gynecology [address] [place] [address] Floor [address] [place] [address] Mitra Malone NP 03/13/2024 11:23 AM BOTTLE WASHING MACHINE OPERATOR - 03/13/2024 11:59 PM BOTTLE WASHING MACHINE OPERATOR Hospital Encounter [facility] [address] [place] [address] Recurrent UTI; Gross hematuria Discharge Disposition: Discharge to home or self care 03/13/2024 9:40 AM BOTTLE WASHING MACHINE OPERATOR Office Visit [facility] Obstetrics and Gynecology [address] [place] [address] 7th [address] [place] [phone] Mitra Malone NP Gross hematuria (Primary Dx); Recurrent UTI; Diverticulum of bladder; Incomplete bladder emptying; Vaginal atrophy 03/13/2024 Telephone [facility] Obstetrics and Gynecology [address] [facility] [address] [place] [address] Beth Santamaria RN 03/13/2024 Telephone [facility] Medical Group Cardiology [address] [place] [phone] Siddharth Jennings MD 01/28/2024 Telephone [facility] Cardiology [address] [facility] [address] [place] [address] Martín Fabian MD 01/08/2024 Telephone [facility] Cardiology [address] [place] [phone] Siddharth Jennings MD from Last 3 Months [...] drink = 0.6 oz pur e alcohol) [facility] Utilities Answer Date Recorded In the past 12 months has [employer] electric, gas, oil, or water company threatened [...] often do you attend chur ch or scientologist services? 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 Not on file Not on file Obstetrics History Last Filed Vital Signs Vital Sign Reading Time Taken Comments Blood Pressure 144/83 03/13/2024 9:40 AM BOTTLE WASHING MACHINE OPERATOR Pulse 62 11/27/2023 11:33 AM CDT Temperature 36.8 ??C (98.2 ??F) 07/23/2023 11:42 AM C DT Respiratory Rate 18 07/23/2023 11:42 AM CDT Oxygen Saturation 95% 11/27/2023 11:33 AM CDT Inhaled Oxygen Concentration - - Weight 73.9 kg (163 lb) 11/27/2023 11:33 AM CDT Height 160 cm (5' 3 ) 03/13/2024 9:40 AM BOTTLE WASHING MACHINE OPERATOR Body Mass Index 28.87 11/27/2023 11:33 AM [...] 2) 02/11/2019 12/17/2018 Influenza Vaccine (#1) 2023 0, 12/17/2018, 11/28/2017, Additional history exists Fall Risk Assessment 07/22/2024 07/23/2023 Procedures Procedure Name Priority Date/Time Associated Diagnosis Comments URINE CULTURE Routine 03/13/2024 1:49 PM BOTTLE WASHING MACHINE OPERATOR Recurrent UTI Gross hematuria URINALYSIS, MICROSCOPIC ONLY Routine 03/13/2024 11:23 AM BOTTLE WASHING MACHINE OPERATOR Recurrent UTI Gross hematuria URINALYSIS AND REFLEX TO MICROSCOPIC Routine 03/13/2024 11:23 AM BOTTLE WASHING MACHINE OPERATOR Recurrent UTI Gross hematuria POCT URINALYSIS DIPSTICK Routine 03/13/2024 10:25 AM BOTTLE WASHING MACHINE OPERATOR Recurrent UTI Gross hematuria from Last 3 Months Results * (ABNORMAL) Urine culture Urine, in and out catheter (03/13/2024 1:49 PM BOTTLE WASHING MACHINE OPERATOR) Report Final Report: 10,000 to 100,000 colonies/mL of Enterococcus faecalis 10,000 to 100,000 colonies/mL of Aerococcus urinae Isolates of Aerococcus urinae are typically susceptible to beta-lactams (including penicillin and cephalosporins), vancomycin, and tetracyclines (including doxycycline), but resistant to trimethoprim-sulf amethoxazole. (.) Organism ENTEROCOCCUS FAECALIS [facility] Organism AEROCOCCUS URINAE [facility] Urine, in and out catheter 03/13/2024 1:49 PM BOTTLE WASHING MACHINE OPERATOR 03/13/2024 2:13 PM BOTTLE WASHING MACHINE OPERATOR Narrative [facility] - 03/15/2024 3:14 PM BOTTLE WASHING MACHINE OPERATOR Testing performed by [facility] ([phone]) Organism Antibiotic Method Susceptibility Enterococcus faecalis Ampicillin (NU) INTERPRETATIO N Susceptible Enterococcus faecalis Vancomycin (NU) INTERPRETATIO N Susceptible Enterococcus faecalis Linezolid (NU) INTERPRETATIO N Susceptible Enterococcus faecalis Doxycycline (NU) INTERPRETATIO N Susceptible Enterococcus faecalis Nitrofurantoin (NU) INTERPRETAT ION Susceptible us Mitra Malone NP LAB MICROBIOLOGY - GENERAL ORD ERABLES Final Result [facility] [place] [address] * (ABNORMAL) Urinalysis reflex to microscopic (03/13/2024 11:23 AM BOTTLE WASHING MACHINE OPERATOR) Color, ur Yellow Yellow Clarity, ur Turbid(A) Clear [facility] Specific gravity, ur 1.012 1.003 - 1.030 [facility] pH, urine 7.0 [facility] Comment: Interpretive Data ? Urine pH is affected by diet, medications, systemic acid-base disturbances, and renal tubular function. ??pH may affect urinary stone formation. ??For example, urine pH below 6.0 may help reduce the tendency for calcium phosphate stones and pH greater than 6.0 may reduce the tendency for uric acid stone formation. Source: [facility] Current Interpretive Data was last revised on 2017 Protein, ur ql 1+(A) Negative [facility] Glucose, ur ql Negative Negative [facility] Ketones, ur Negative Negative [facility] Bilirubin, ur Negative Negative [facility] Blood, ur 3+(A) Negative [facility] Urobilinogen, ur <2.0 <2.0 mg/dL [facility] Nitrite, ur Negative Negative [facility] Leukocyte esterase, ur 3+(A) Negative [facility] UA reflex comment Reflex to microscopic UA will be performed. [facility] Urine 03/13/2024 11:2 3 AM BOTTLE WASHING MACHINE OPERATOR 03/13/2024 1:51 PM BOTTLE WASHING MACHINE OPERATOR Mitra Malone MANAGER RESTAURANT LAB URINE ORDERABLES Final Res ult Performing Organization Address [facility] Co de Phone Number [facility] [place] [address] * (ABNORMAL) Urinalysis, microscopic only (03/13/2024 11:23 AM BOTTLE WASHING MACHINE OPERATOR) WBC, ur >50(A) 0 - 5 /HPF RBC, ur >50(A) 0 - 2 /HPF [facility] Bacteria, ur 1+(A) [facility] Urine 03/13/2024 11:2 3 AM BOTTLE WASHING MACHINE OPERATOR 03/13/2024 1:51 PM BOTTLE WASHING MACHINE OPERATOR Mitra Malone NP LAB URINE ORDERABLES Final Res ult Performing Organization Address [facility] Co de Phone Number [facility] [place] [address] * (ABNORMAL) POCT urinalysis dipstick (03/13/2024 10:25 AM BOTTLE WASHING MACHINE OPERATOR) Specific [place], POC 1.015 1.003 - 1.030 Blood, ur, POC Large(A) Negative pH, ur, POC 7.5 5.0 - 8.0 Protein, ur, POC 30.(A) Negative Leukocytes, ur, POC Moderate(A ) Negative Lot Number [id number] Urine 03/13/2024 10:2 5 AM BOTTLE WASHING MACHINE OPERATOR Mitra Malone NP POINT OF CARE TEST ORDERABLES Final Result from Last 3 Months Insurance [facility] AET MEDICARE T MEDICARE Advance Directives For more information, please contact: [phone] * LIMITED - No CPR (Latest Code Status on File) Date Activated Date Inactivated Comments 07/19/2023 10:56 PM 07/23/2023 5:51 PM Question Answer Comments Provide aggressive medical m anagement before a full cardiopulmonary arrest occurs. Use antibiotics, IV Fluids, and medical treatment unless specifically selected below: No intubation Care Teams Plastic Products Sales Representative Relationship Specialty Start Date End Date Phan Garvin MD PCP - General Family Medicine 09/14/22 Phan Garvin MD Family Medicine 09/14/22 Siddharth Jennings MD [address] [facility] [address] [place] [address] Consulting Physician Cardiology 10/10/23
--- OUTSIDE RECORDS SUMMARY | 2024-03-15 17:48 | XMS_ITS | Encounter Summary ---
Author Organization [facility] Address [address] [place] [address] Care Team Providers Care Delivery Driver Name Role Phone Angelica Frankel MD Primary Care Provider [phone] Reason for Visit * Reason Onset Date Comments Other 09/12/2011 Reschedule colon oscopy Encounter Details Date Type Department Care Team (Late st Contact Info) Description 09/12/2011 Telephone [facility] Gastroenterology [place] [address] [address] [facility] [address] [place] [address] Cristopher Quezada MD NO ADDRESS [...] 10/09/2011 NEW TIME: 11:30 am NEW LOCATIONS: [facility] NEW DOCTOR: [facility] Colonoscopy has rescheduled from 09-25-2011 at 11:[address] Cristopher Quezada at [facility] due to family emergency. documented in this encounter Plan of Treatment Not on file documented as of this encounter Visit Diagnoses Not on filedocumented in this encounter Care Teams Delivery Driver Relationship Specialty Start Date End Date Angelica Frankel MD [address] [place] [address] [address] [address] PCP - General Internal Medicine 08/11/11 documented as of this encounter
--- OUTSIDE RECORDS SUMMARY | 2024-03-15 17:48 | XMS_ITS | Encounter Summary ---
Author Organization [facility] Healthcare Address [address] [place] [address] Care Team Providers Care Terrazzo Laborer Name Role Phone Phan Garvin MD Primary Care Provider [phone] Phan Garvin MD Unavailable [phone] Siddharth Jennings MD Unavailable [phone] Encounter Details Date Type Department Care Team (Late st Contact Info) Description 10/19/2023 Telephone [facility] Medical Group Gastroenterology at [address] [place] [address] Rudy Hollis MD [address] [place] [address] [address] [place] [address] Social History Tobacco Use Types Packs/Day Years Used Date Smoking Tobacco: Never Smokeless Tobacco: Never Alcohol Use Standard Drinks/Week Comments Yes 0 (1 standard drink = 0.6 oz pur e alcohol) [facility] Utilities Answer Date Recorded In the past 12 months has [employer] electric, gas, oil, or water company threatened [...] often do you attend chur ch or hindu services? 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 Please call her at [phone] documented in this encounter Plan of Treatment Not on file documented as of this encounter Visit Diagnoses Not on filedocumented in this encounter Care Teams Terrazzo Laborer Relationship Specialty Start Date End Date Phan Garvin MD PCP - General Family Medicine 09/14/22 Phan Garvin MD Family Medicine 09/14/22 Siddharth eJnnings MD [address] [address] Consulting Physician Cardiology 10/10/23 documented as of this encounter
--- OUTSIDE RECORDS SUMMARY | 2024-03-15 17:48 | XMS_ITS | Encounter Summary ---
Author Organization [facility] Healthcare Address [address] [place] [address] Care Team Providers Care Candle Making Supervisor Name Role Phone Phan Garvin MD Primary Care Provider [phone] Phan Garvin MD Unavailable [phone] Siddharth Jennings MD Unavailable [phone] Encounter Details Date Type Department Care Team (Late st Contact Info) Description 10/10/2023 Telephone [facility] Medical Group Cardiology [address] [place] [address] Siddharth Jennings MD [address] [place] [address] Social History Tobacco Use Types Packs/Day Years Used Date Smoking Tobacco: Never Smokeless Tobacco: Never Alcohol Use Standard Drinks/Week Comments Yes 0 (1 standard drink = 0.6 oz pur e alcohol) [facility] Utilities Answer Date Recorded In the past 12 months has [employer] electric, gas, oil, or water company threatened [...] on file Legal Sex Female 7:11 PM RUG CLEANING SUPERVISOR Gender Identity Not on file Sexual Orientation Not on file 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 Pt will be going to [facility] on 10/31 and is wanting to be [...] on filedocumented in this encounter Care Teams Candle Making Supervisor Relationship Specialty Start Date End Date Phan Garvin MD PCP - General Family Medicine 09/14/22 Phan Garvin MD Family Medicine 09/14/22 Siddharth Jennings MD [address] [address] Consulting Physician Cardiology 10/10/23 documented as of this encounter
--- OUTSIDE RECORDS SUMMARY | 2024-03-15 17:48 | XMS_ITS | Encounter Summary ---
Author Organization [facility] Healthcare Address [address] [place] [address] Care Team Providers Care Heel Sorter Name Role Phone Phan Garvin MD Primary Care Provider [phone] Phan Garvin MD Unavailable [phone] Siddharth Jennings MD Unavailable [phone] Encounter Details Date Type Department Care Team (Late st Contact Info) Description 01/08/2024 Telephone [facility] Medical Group Cardiology [address] [place] [address] Siddharth Jennings MD [address] [place] [address] Social History Tobacco Use Types Packs/Day Years Used Date Smoking Tobacco: Never Smokeless Tobacco: Never Alcohol Use Standard Drinks/Week Comments Yes 0 (1 standard drink = 0.6 oz pur e alcohol) [facility] Utilities Answer Date Recorded In the past 12 months has [employer] electric, gas, oil, or water company threatened [...] on file Legal Sex Female 7:11 PM DRAG SEINER Gender Identity Not on file Sexual Orientation Not on file 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
--- OUTSIDE RECORDS SUMMARY | 2024-03-15 17:48 | XMS_ITS | Referral Summary ---
Author Organization [facility] [address] Address [address] [place] [address] Care Team Providers Care Gizzard Puller Name Role Phone Phan Garvin MD Primary Care Provider [phone] Phan Garvin MD Unavailable [phone] Siddharth Jennings MD Unavailable [phone] Encounters Date Type Department Care Team Description 03/14/2024 Telephone [facility] [address] [facility] Outpatient Health 7th Floor [address] [place] [address] Araceli Anderson, JOHN Test Results 03/14/2024 Orders Only [facility] [address] [facility] 7th Floor [address] [place] [address] Mitra Malone NP 03/13/2024 Telephone [facility] [address] [facility] Medical Office [address] [place] [address] Beth Santamaria, JOHN 03/13/2024 11:23 AM WIRE FRAME DIPPER - 03/13/2024 11:59 PM WIRE FRAME DIPPER Hospital Encounter [facility] [address] [place] [address] Recurrent UTI; Gross hematuria Discharge Disposition: Discharge to home or self care 03/13/2024 Telephone [facility] Cardiology [address] [facility] [address] [place] [address] Siddharth Jennings MD 03/13/2024 9:40 AM WIRE FRAME DIPPER Office Visit [facility] [address] [facility] Health 7th Floor [address] [place] [address] Mitra Malone NP Gross hematuria (Primary Dx); Recurrent UTI; Diverticulum of bladder; Incomplete bladder emptying; Vaginal atrophy 01/28/2024 Telephone [facility] Medical [facility] Cardiology [address] [facility] [address] [place] [address] Martín Fabian MD 01/08/2024 Telephone [facility] Cardiology [address] [facility] [address] [place] [address] Siddharth Jennings MD from Last 3 Months [...] mg by mouth every morning Active vit C,L-Kn-lrxko-anthony tein-zeaxan (PreserVision AREDS-2) 250-90-40-1 mg capsuleIndicati ons:eye [...] 0.6 oz pur e alcohol) [facility] Molecular Imaging Answer Date Recorded In the past 12 months has [employer], [employer], oil, or water [employer] threatened to shut off services in your [...] often do you attend chur ch or gnosticist services? 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 on file Not on file Last Filed Vital Signs Vital Sign Reading Time Taken Comments Blood Pressure 144/83 03/13/2024 9:40 AM WIRE FRAME DIPPER Pulse 62 11/27/2023 11:33 AM CDT Temperature 36.8 ??C (98.2 ??F) 07/23/2023 11:42 AM C DT Respiratory Rate 18 07/23/2023 11:42 AM CDT Oxygen Saturation 95% 11/27/2023 11:33 AM CDT Inhaled Oxygen Concentration - - Weight 73.9 kg (163 lb) 11/27/2023 11:33 AM CDT Height 160 cm (5' 3 ) 03/13/2024 9:40 AM WIRE FRAME DIPPER Body Mass Index 28.87 11/27/2023 11:33 AM CDT Plan of Treatment Not on file Procedures Procedure Name Priority Date/Time Associated Diagnosis Comments URINE CULTURE Routine 03/13/2024 1:49 PM WIRE FRAME DIPPER Recurrent UTI Gross hematuria URINALYSIS, MICROSCOPIC ONLY Routine 03/13/2024 11:23 AM WIRE FRAME DIPPER Recurrent UTI Gross hematuria URINALYSIS AND REFLEX TO MICROSCOPIC Routine 03/13/2024 11:23 AM WIRE FRAME DIPPER Recurrent UTI Gross hematuria POCT URINALYSIS DIPSTICK Routine 03/13/2024 10:25 AM WIRE FRAME DIPPER Recurrent UTI Gross hematuria from Last 3 Months Results * (ABNORMAL) Urine culture Urine, in and out catheter (03/13/2024 1:49 PM WIRE FRAME DIPPER) Report Final Report: 10,000 to 100,000 colonies/mL of Enterococcus faecalis 10,000 to 100,000 colonies/mL of Aerococcus urinae Isolates of Aerococcus urinae are typically susceptible to beta-lactams (including penicillin and cephalosporins), vancomycin, and tetracyclines (including doxycycline), but resistant to trimethoprim-sulf amethoxazole. (.) Organism ENTEROCOCCUS FAECALIS [facility] Organism [facility] Urine, in and out catheter 03/13/2024 1:49 PM WIRE FRAME DIPPER 03/13/2024 2:13 PM WIRE FRAME DIPPER Narrative [facility] - 03/15/2024 3:14 PM WIRE FRAME DIPPER Testing performed by [facility] ([phone]) Organism Antibiotic Method Susceptibility Enterococcus faecalis Ampicillin (NU) INTERPRETATIO N Susceptible Enterococcus faecalis Vancomycin (NU) INTERPRETATIO N Susceptible Enterococcus faecalis Linezolid (NU) INTERPRETATIO N Susceptible Enterococcus faecalis Doxycycline (NU) INTERPRETATIO N Susceptible Enterococcus faecalis Nitrofurantoin (NU) INTERPRETAT ION Susceptible Mitra Malone NP LAB MICROBIOLOGY - GENERAL ORD ERABLES Final Result Performing Organization Address City/[facility]/ZIP Co de Phone Number [facility] Department [place] [address] * (ABNORMAL) Urinalysis reflex to microscopic (03/13/2024 11:23 AM WIRE FRAME DIPPER) Color, ur Yellow Yellow Clarity, ur Turbid(A) Clear [facility] Specific gravity, ur 1.012 1.003 - 1.030 [facility] pH, urine 7.0 [facility] Comment: Interpretive Data ? Urine pH is affected by diet, medications, systemic acid-base disturbances, and renal tubular function. ??pH may affect urinary stone formation. ??For example, urine pH below 6.0 may help reduce the tendency for calcium phosphate stones and pH greater than 6.0 may reduce the tendency for uric acid stone formation. Source: [facility] Current Interpretive Data was last revised on 2017 Protein, ur ql 1+(A) Negative [facility] Glucose, ur ql Negative Negative [facility] Ketones, ur Negative Negative [facility] Bilirubin, ur Negative Negative [facility] Blood, ur 3+(A) Negative [facility] Urobilinogen, ur <2.0 <2.0 mg/dL [facility] Nitrite, ur Negative Negative [facility] Leukocyte esterase, ur 3+(A) Negative [facility] UA reflex comment Reflex to microscopic UA will be performed. [facility] Urine 03/13/2024 11:2 3 AM WIRE FRAME DIPPER 03/13/2024 1:51 PM WIRE FRAME DIPPER Mitra Malone NP LAB URINE ORDERABLES Final Res ult Performing Organization Address City/[facility]/ZIP Co de Phone Number [facility] Department [place] [address] * (ABNORMAL) Urinalysis, microscopic only (03/13/2024 11:23 AM WIRE FRAME DIPPER) WBC, ur >50(A) 0 - 5 /HPF RBC, ur >50(A) 0 - 2 /HPF [facility] Bacteria, ur 1+(A) [facility] Urine 03/13/2024 11:2 3 AM WIRE FRAME DIPPER 03/13/2024 1:51 PM WIRE FRAME DIPPER Mitra Malone NP LAB URINE ORDERABLES Final Res ult [facility] Department [place] [address] * (ABNORMAL) POCT urinalysis dipstick (03/13/2024 10:25 AM WIRE FRAME DIPPER) [facility] Specific [place], POC 1.015 1.003 - 1.030 Blood, ur, POC Large(A) Negative pH, ur, POC 7.5 5.0 - 8.0 Protein, ur, POC 30.(A) Negative Leukocytes, ur, POC Moderate(A ) Negative Lot Number [id number] Urine 03/13/2024 10:2 5 AM WIRE FRAME DIPPER Mitra Malone NP POINT OF CARE TEST ORDERABLES Final Result from Last 3 Months Insurance AETNA MEDICARE AETNA MEDICARE AETNA MEDICARE Advance Directives For more information, please contact: [phone] * LIMITED - No CPR (Latest Code Status on File) Date Activated Date Inactivated Comments 07/19/2023 10:56 PM 07/23/2023 5:51 PM Question Answer Comments Provide aggressive medical m anagement before a full cardiopulmonary arrest occurs. Use antibiotics, IV Fluids, and medical treatment unless specifically selected below: No intubation Care Teams Gizzard Puller Relationship Specialty Start Date End Date Phan Garvin MD PCP - General Family Medicine 09/14/22 Phan Garvin MD Family Medicine 09/14/22 Siddharth Jennings MD [address] [facility] [address] [place] [address] Consulting Physician Cardiology 10/10/23
--- OUTSIDE RECORDS SUMMARY | 2024-03-15 17:48 | XMS_ITS | Encounter Summary ---
Author Organization [facility] Address [address] [place] [address] Care Team Providers Care Sportspersons Name Role Phone Angelica Frankel MD Primary Care Provider [phone] Reason for Visit * Auth/Cert (Routine) - Closed Specialty Diagnoses / Procedures Referred By Contac t Referred To Contact Gastroenterology Diagnoses COLON/SCREENING/FM HX COLON CA Procedures COLONOSCOPY [address] [place] [address] Referral ID Status Reason Start Date Expiration Date Visits Re quested Visits Authorized [id number] Closed 1 1 Encounter Details Date Type Department Care Team (Latest Contact Info) Description 10/09/2011 10:37 AM CDT - 10/09/2011 1:18 PM CDT Hospital Encounter [address] [place] [address] Cristopher Quezada MD NO ADDRESS ON FILE [...] or soreness at the IV site Office [phone] [facility] [phone] [facility] [phone] See report for additional recommendations. * Attachments The following attachments cannot be sent through Care Everywhere. * HEMORRHOIDS: AFTER YOUR VISIT (SRI LANKAN) * DIVERTICULOSIS: AFTER YOUR VISIT (SRI LANKAN) * HIGH-FIBER DIET: AFTER YOUR VISIT (SRI LANKAN) documented in this encounter Medications at Time [...] Peralta Age: 70 y.o. Sex: female CSN: [id number] Procedure: Procedure(s): COLONOSCOPY Surgeons/Assistants: Surgeon(s) and Role: [...] Notes * Scanned Form - Stl Scanning, [facility] - 10/20/2011 9:21 PM CDT Electronically signed by Interface, [facility] Stl Ramp Attendant Incoming at 10/20/2011 9:21 PM CDT * Scanned Form - Stl Scanning, [facility] - 10/09/2011 9:16 PM CDT Electronically signed by Interface, [facility] Stl Ramp Attendant Incoming at 10/09/2011 9:16 PM CDT * Patient Instructions - Stl Scanning, [facility] - 10/09/2011 9:16 PM CDT Electronically signed by Interface, [facility] Stl Ramp Attendant Incoming at 10/09/2011 9:16 PM CDT documented [...] RN) documented in this encounter Care Teams Sportspersons Relationship Specialty Start Date End Date Angelica Frankel MD [address] [address] PCP - General Internal Medicine 08/11/11 documented as of this encounter
--- OUTSIDE RECORDS SUMMARY | 2024-03-15 17:48 | XMS_ITS | Encounter Summary ---
Author Organization [facility] Healthcare Address [address] [place] [address] Care Team Providers Care Medical Records Custodian Name Role Phone Phan Garvin MD Primary Care Provider [phone] Phan Garvin MD Unavailable [phone] Siddharth Jennings MD Unavailable [phone] Encounter Details Date Type Department Care Team (Late st Contact Info) Description 01/28/2024 Telephone [facility] Medical Group Cardiology [address] [facility] [address] [address] Martín Fabian MD [address] [place] [address] Social History Tobacco Use Types Packs/Day Years Used Date Smoking Tobacco: Never Smokeless Tobacco: Never Alcohol Use Standard Drinks/Week Comments Yes 0 (1 standard drink = 0.6 oz pur e alcohol) [facility] Utilities Answer Date Recorded In the past 12 months has [employer] electric, gas, oil, or water company threatened [...] often do you attend chur ch or oriental orthodox services? 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 O EQUIPMENT TECHNICIAN O EQUIPMENT TECHNICIAN documented in this encounter Plan of Treatment Not on file documented as of this encounter Visit Diagnoses Not on filedocumented in this encounter Care Teams Medical Records Custodian Relationship Specialty Start Date End Date Phan Garvin MD PCP - General Family Medicine 09/14/22 Phan Garvin MD Family Medicine 09/14/22 Siddharth Jennings MD [address] [place] [address] Consulting Physician Cardiology 10/10/23 documented as of this encounter
--- OUTSIDE RECORDS SUMMARY | 2024-03-15 17:48 | XMS_ITS | Encounter Summary ---
Author Organization [facility] Address [address] [place] [address] Phone Care Team Providers Care Medical Investigator Name Role Phone Phan Garvin MD Primary Care Provider [phone] Phan Garvin MD Unavailable [phone] Siddharth Jennings MD Unavailable [phone] Reason for Visit * Reason Onset Date Comments UTI 11/20/2023 Encounter Details Date Type Department Care Team (Late st Contact Info) Description 11/20/2023 Telephone [facility]ne[facility] 7th Floor [address] [place] [address] Araceli Anderson RN UTI Social History Tobacco Use Types Packs/Day Years Used Date Smoking Tobacco: Never Smokeless Tobacco: Never Alcohol Use Standard Drinks/Week Comments Yes 0 (1 standard drink = 0.6 oz pur e alcohol) [facility] Utilities Answer Date Recorded In the past 12 months has [employer] electric, gas, oil, or water company [...] place to sleep or slept in a retirement (including now)? No 07/20/2023 Personal Safety Answer Date Recorded Have you ever been in or are you currently in a harmful physical or emotional relationship or is someone making you feel afraid or unsafe? 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 She has two doses left but does not feel like her symptoms have resolved. She called the urgent care back but they said her urine culture was lost. She is going out of town so she would like to leave a urine specimen today at [facility]. Reviewed holding Hiprex while being treated [...] * NOTE (11/21/2023 7:29 AM CDT) Note [facility] Comment: This urine was analyzed for the presence of WBC, RBC, bacteria, casts, and other formed elements. Only those elements seen were reported. 11/21/2023 7:29 AM CDT 11/21/2023 7:30 AM CDT Poncho Melgar MD LAB BLOOD ORDERABLES Final Result Performing Organization Address [facility] de Phone Number [facility] [address] [place] [address] * Urine culture Urine, clean voided (11/21/2023 7:29 AM CDT) Urine culture [facility] Comment: ??CULTURE, URINE, ROUTINE ?Micro Number: ?[id number] ??Test Status: ? Final ??Specimen Source: ?? [...] 7:30 AM CDT Poncho Melgar MD LAB MICROBIOLOGY - GENERAL ORDERABLES Final Result Performing Organization Address [facility] de Phone Number [facility] [address] [address] * (ABNORMAL) Urinalysis reflex to microscopic (11/21/2023 [...] URINE ORDERABLES Final Result Performing Organization Address City/State/[place] Co de Phone Number [facility] [address] [place] [address] documented in this encounter Visit Diagnoses Diagnosis Frequency of urination- Primary Urinary frequency Dysuria documented in this encounter Care Teams Medical Investigator Relationship Specialty Start Date End Date Phan Garvin MD PCP - General Family Medicine 09/14/22 Phan Garvin MD Family Medicine 09/14/22 Siddharth Jennings MD [address] [address] Consulting Physician Cardiology 10/10/23 documented as of this encounter
--- OUTSIDE RECORDS SUMMARY | 2024-03-15 17:48 | XMS_ITS | Encounter Summary ---
Author Organization [facility] Healthcare Address [address] [place] [address] Care Team Providers Care Agricultural Labor Camp Manager Name Role Phone Phan Garvin MD Primary Care Provider [phone] Phan Garvin MD Unavailable [phone] Siddharth Jennings MD Unavailable [phone] Reason for Referral * Diagnostic Imaging (Routine) - Closed Specialty Diagnoses / Procedures Referred By Contac t Referred To Contact Diagnoses Complicated UTI (urinary tract infection) Diverticulum of bladder History of pelvic surgery Recurrent UTI Procedures [place] Vaginogram Poncho Melgar MD [address] [place] [address] Phone: tel: fax: [address] [address] Referral ID Status Reason Start Date Expiration Date Visits Re quested Visits Authorized [id number] Closed 10/25/2023 11/23/2024 1 1 Reason for Visit * Diagnostic Imaging (Routine) - Closed Specialty Diagnoses / Procedures Referred By Contac t Referred To Contact Diagnoses Complicated UTI (urinary tract infection) Diverticulum of bladder History of pelvic surgery Recurrent UTI Procedures [place] VaginoPoncho Gamino MD [address] [place] [address] Phone: tel: fax: [address] [phone] Referral ID Status Reason Start Date Expiration Date Visits Re quested Visits Authorized [id number] Closed 10/25/2023 11/23/2024 1 1 Encounter Details Date Type Department Care Team (Latest Contact Info) Description 10/31/2023 10:09 AM CDT - 10/31/2023 11:59 PM CDT Hospital Encounter [facility] [address] [place] [address] Complicated UTI (urinary tract infection); Diverticulum of bladder; History of pelvic surgery; Recurrent UTI Discharge Disposition: Discharge to home or self care Social History Tobacco Use Types Packs/Day Years Used Date Smoking Tobacco: Never Smokeless Tobacco: Never Alcohol Use Standard Drinks/Week Comments Yes 0 (1 standard drink = 0.6 oz pur e alcohol) [facility] Utilities Answer Date Recorded In the past 12 months has [employer], gas, oil, or water [employer] threatened to shut off services in your [...] How often do you attend chur or sabianism services? 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 FINDINGS: Sorting Machine Operator radiographs are unremarkable. ??Normal filling of the [...] for the entirety of the procedure. FINDINGS: Sorting Machine Operator radiographs are unremarkable. Normal filling of the [...] mL documented in this encounter Care Teams Agricultural Labor Camp Manager Relationship Specialty Start Date End Date Phan Garvin MD PCP - General Family Medicine 09/14/22 Phan Garvin MD Family Medicine 09/14/22 Siddharth Jennings MD [address] [facility] [address] [place] [address] Consulting Physician Cardiology 10/10/23 documented as of this encounter
--- OUTSIDE RECORDS SUMMARY | 2024-03-15 17:48 | XMS_ITS | Encounter Summary ---
Author Organization [facility] Address [address] [place] [address] Phone Care Team Providers Care Clipman Name Role Phone Phan Garvin MD Primary Care Provider [phone] Phan Garvin MD Unavailable [phone] Siddharth Jennings MD Unavailable [phone] Encounter Details Date Type Department Care Team (Late st Contact Info) Description 11/02/2023 Telephone [facility] Obstetrics and Gynecology [address] [facility] Health 7th Floor [address] [place] [address] Maria Esther Brown RN Social History Tobacco Use Types Packs/Day Years Used Date Smoking Tobacco: Never Smokeless Tobacco: Never Alcohol Use Standard Drinks/Week Comments Yes 0 (1 standard drink = 0.6 oz pur e alcohol) [facility] Utilities Answer Date Recorded In the past 12 months has [employer] electric, gas, oil, or water company threatened [...] week 07/20/2023 How often do you attend [facility] or bahai services? 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 documented in this encounter Plan of Treatment Not on file documented as of this encounter Visit Diagnoses Not on filedocumented in this encounter Care Teams Clipman Relationship Specialty Start Date End Date Phan Garvin MD PCP - General Family Medicine 09/14/22 Phan Garvin MD Family Medicine 09/14/22 Siddharth Jennings MD [address] [address] Consulting Physician Cardiology 10/10/23 documented as of this encounter
--- OUTSIDE RECORDS SUMMARY | 2024-03-15 17:48 | XMS_ITS | Encounter Summary ---
Author Organization [facility] Address [address] [place] [address] Care Team Providers Care Skilled Nursing Facilities Professional Name Role Phone Angelica Frankel MD Primary Care Provider [phone] Reason for Visit * Auth/Cert Specialty Diagnoses / Procedures Referred By Dacia t Referred To Contact Procedures PA REPAIR VAGINA/PERINEUM PA REPR VAGINAL PROLAPSE,SACROSP LIG Gaby Ceballos MD [address] [address] Referral ID Status Reason Start Date Expiration Date Visits Re quested Visits Authorized [id number] 11/02/2016 1 1 Encounter Details Date Type Department Care Team (Late st Contact Info) Description 12/20/2016 8:45 AM CDT - 12/20/2016 11:15 AM CDT Surgery [facility] Operating Room [address] [place] [address] Gaby Ceballos MD [address] [address] SACROSPINOUS LIGAMENT FIXATION Surgery Details Date/Time Status [...] Ceballos MD Primary Gynecology 1 Case Notes [facility] AUSTYN REYNOLDS 11/03/16; /CPT 37413, 67850, 00833, 52039, 62392 documented in this encounter Social History Tobacco [...] 75 y.o. Gender Female Date of 1940 [facility] [id number] Attending Physician Gaby Ceballos, * Discharging Physician Martha Lyon MD PCP Angelica Frankel MD Admit Date 12/20/2016 Discharge Date Length of Stay LOS: 0 days Procedures performed: Procedure(s) (LRB): SACROSPINOUS LIGAMENT FIXATION (N/A) ANTERIOR POSTERIOR REPAIR WITH ENTEROCELE & CYSTOCELE & RECTOCELE (N/A) COLPOPERINEORRHAPHY (N/A) FOREIGN BODY REMOVAL (N/A) Hospital Course: Maria A Patel is a 75 y.o. female who was admitted to [facility] on 12/20/2016 and underwent reconstructive surgery involving [...] 7:46 AM CDT GYNECOLOGIC AND RECONSTRUCTIVE SURGERY, [facility] Gaby Ceballos M.D. Karla Lorenzo M.D. [address] [place] [address] Exchange: Offfice POST OPERATIVE INSTRUCTIONS 1. During [...] [address] [place] [address] FAX: [phone] PATIENT: Maria A Patel DATE OF : [...] Cancer SOCIAL HISTORY (Detailed) Preferred language is Turkmen. MARITAL STATUS/FAMILY/SOCIAL SUPPORT Currently . Smoking status: [...] Genitourinary * Perineum - attenuated. Vagina - [id number]. Cervix - surgically absent. Uterus - surgically [...] of Surgery: 12/20/2016 SURGEON Gaby Ceballos MD STACKER OPERATOR PREOPERATIVE DIAGNOSIS Post-hysterectomy vaginal vault prolapse, enterocele, [...] discharge planning. Shyann Rucker RN, BSN Nurse Ux Design Lead [id number] * Care Plan - Hilda Drew RN [...] REMOVAL 12/20/2016 8:30 AM CDT Case Notes [facility] Dheere Bolo RODOLFO 11/03/16; /CPT 21365, 38087, 00165, 85170, 06653 COLPOPERINEORRHAPHY 12/20/2016 8 :30 AM CDT Case Notes [facility] Dheere Bolo RODOLFO 11/03/16; /CPT 03990, 32201, 20941, 26307, 16161 ANTERIOR POSTERIOR REPAIR 2016 8:30 AM CDT Case Notes [facility] Dheere Bolo RODOLFO 11/03/16; /CPT 47150, 76177, 22916, 70302, 49684 SACROSPINOUS LIGAMENT FIXATION 12/20/2016 8:30 AM CDT Case Notes [facility] Dheere Bolo RODOLFO 11/03/16; /CPT 47616, 81564, 72786, 72352, 37409 VERIFICATION BLOOD GROUP Stat 017 7:55 AM CDT Folic acid deficiency (non anemic) documented in this encounter Results * PATHOLOGY (12/20/2016 10:22 AM CDT) CASE REPORT Surgical Pathology Report ? Case: [id number] ? Authorizing Provider: ??Gaby Ceballos MD Collected: ? 12/20/2016 10:22 AM ? Ordering Location: ? [facility] ?Received: ?12/20/2016 12:19 PM ? Operating Room ? Pathologist: ? Kasie Adame MD ? Specimen: ?Vagina, vaginal foreign body ? 12/21/2016 5:26 PM CDT [facility] FINAL DIAGNOSIS Vagina, excision: - Fibroadipose tissue with foreign body giant cell reaction to polarizable foreign material. - No evidence of malignancy. 12/21/2016 5:26 PM CDT [facility] IMEN DESCRIPTION Vaginal foreign body. 12/21/2016 5:26 PM [facility] OPERATIVE PROCEDURE Sacrospinous ligament fixation, bladder suspension sling insertion, catheter suprapubic insertion, anterior posterior repair with enterocele and cystocele and rectocele, colpoperineorrhaphy, foreign body removal. 12/21/2016 5:26 PM [facility] CLINICAL DIAGNOSIS Not provided (prolapse, status post laparoscopic hysterectomy and laparoscopic Alvarez per Epic). 12/21/2016 5:26 PM [facility] GROSS DESCRIPTION Received in a single container [...] or plastic, white to bob material. Two tax representative sections are submitted labeled A1. The remaining tissue and foreign body are returned to their original container and saved. Gross photographs were taken prior to sectioning. ALG/saba 12/21/2016 5:26 PM [facility] MICROSCOPIC DESCRIPTION The slides are labeled [id number] and Maria A Patel. Sections of the soft tissue attached to the foreign material received shows benign fibroadipose tissue with foreign body giant cell reaction to polarizable foreign material. No evidence of malignancy is identified. 12/21/2016 5:26 PM [facility] COMMENT Special stain and/or immunohistochemical results are interpreted with controls that demonstrate appropriate staining reactions. Note on use of immunocytochemistry reagents: This test was developed and its performance characteristic determined by [facility], Department of Laboratory Medicine. It has [...] WF, WB and WH are performed by [address], [address]. All other case types are performed by [facility] [address] [facility] [address]. 12/21/2016 5:26 PM CDT [facility] LABORATORY SERVICES - [facility] Tissue SPECIMEN FROM VAGINA / Unknown 12/20/2016 10:22 AM CDT 12/20/2016 12:19 PM CDT Gaby Ceballos MD PATHOLOGY/CYTOL OGY ORDERABLES Performing Organization Address [facility]/ZIP Co de Phone Number [facility] CLIA# [id number] [facility] [place] [address] * VERIFICATION BLOOD GROUP (12/20/2016 7:55 AM CDT) ABO GROUP O 12/20/2016 7:24 AM CDT [facility]ORATORY SERVICES -- [facility] RH (D) TYPE Positive 12/20/2016 7:24 AM CDT [facility]ORY [facility] -- [facility] Blood Venipuncture / Unknown 12/20/2016 7:55 AM CDT 12/20/2016 8:02 AM CDT Judit ePck MD BLOOD BANK MANI DAY Performing Organization Address City/[facility]/ZIP Co de Phone Number [facility] F[facility] CLIA# [id number] [facility] [place] [address] documented in this encounter Visit Diagnoses Not [...] field) documented in this encounter Care Teams Skilled Nursing Facilities Professional Relationship Specialty Start Date End Date Angelica Frankel MD [address] [place] [address] Rd [address] [address] PCP - General Internal Medicine 08/11/11 documented as of this encounter
--- OUTSIDE RECORDS SUMMARY | 2024-03-15 17:48 | XMS_ITS | Encounter Summary ---
Author Organization [facility] Address [address] [place] [address] Care Team Providers Care Grounds Maintenance Manager Name Role Phone Angelica Gonzalez MD Primary Care Provider [phone] Reason for Visit * Auth/Cert (Routine) - Closed Specialty Diagnoses / Procedures Referred By Contac t Referred To Contact Gastroenterology Diagnoses COLON/SCREENING/FM HX COLON CA Procedures COLONOSCOPY [address] [place] [address] Referral ID Status Reason Start Date Expiration Date Visits Re quested Visits Authorized [id number] Closed 1 1 Encounter Details Date Type Department Care Team (Late st Contact Info) Description 10/09/2011 11:30 AM CDT - 10/09/2011 12:00 PM CDT Surgery [address] [place] [address] Cristopher Quezada MD NO ADDRESS ON FILE COLONOSCOPY Surgery Details Date/Time Status Location OR Service Patient Class Case Class Case Type Trauma Case? 10/09/2011 11:30 AM Posted [facility] GI 01 Gastroenterology Outpatient Elective No Panel [...] or soreness at the IV site Office [phone] [facility] [phone] [facility] [phone] See report for additional recommendations. * Attachments The following attachments cannot be sent through Care Everywhere. * HEMORRHOIDS: AFTER YOUR VISIT (BRUNEIAN) * DIVERTICULOSIS: AFTER YOUR VISIT (BRUNEIAN) * HIGH-FIBER DIET: AFTER YOUR VISIT (BRUNEIAN) documented in this encounter Medications at Time [...] this encounter Procedure Notes * Stl Scanning, [facility] - 10/09/2011 12:37 PM CDTAssociated Order(s): GI REPORT * Cristopher Quezada MD - 10/09/2011 12:36 PM CDTAssociated Order(s): GI REPORT [facility] Endoscopy Patient Name: Maria A Peralta Procedure Date No Time: 10/09/2011 Date of : 1940 Admit Type: Outpatient Age: 70 Gender: Female Attending MD: Cristopher Quezada MD Procedure: Colonoscopy Indications: Colorectal cancer screen--high risk. Mother had colon cancer age 70. Interval since prior exam in 2006. Patient Profile: Low abd discomfort being investigated for MEDICAL RECORD ASSISTANT causes. Providers: Cristopher Quezada MD Referring MD: [...] Addenda: 0 Procedure Date: 10/09/2011 12:08:[address] [place] [address] documented in this encounter OR Notes * OR Anesthesia - Stnirali Baez [facility] - 10/09/2011 9:16 PM CDT * OR [...] Peralta Age: 70 y.o. Sex: female CSN: [id number] Procedure: Procedure(s): COLONOSCOPY Surgeons/Assistants: Surgeon(s) and Role: [...] Notes * Scanned Form - Stl Scanning, [facility] - 10/20/2011 9:21 PM CDT Electronically signed by Angel [facility] Police Magistrate Incoming at 10/20/2011 9:21 PM CDT * Scanned Form - Stl Scanning, [facility] - 10/09/2011 9:16 PM CDT Electronically signed by Interface, [facility] Police Magistrate Incoming at 10/09/2011 9:16 PM CDT * Patient Instructions - Stl Scanning, [facility] - 10/09/2011 9:16 PM CDT Electronically signed by Interface, [facility] Police Magistrate Incoming at 10/09/2011 9:16 PM CDT documented [...] RN) documented in this encounter Care Teams Grounds Maintenance Manager Relationship Specialty Start Date End Date Angelica Gonzalez MD [address] [place] [address] Rd [address] [address] PCP - General Internal Medicine 08/11/11 documented as of this encounter
--- OUTSIDE RECORDS SUMMARY | 2024-03-15 17:48 | XMS_ITS | Encounter Summary ---
Author Organization [facility] Address [address] [place] [address] Care Team Providers Care Hospital Scientist Name Role Phone Angelica Frankel MD Primary Care Provider [phone] Reason for Referral * Eval and Treat (Routine) - Closed Specialty Diagnoses / Procedures Referred By Contac t Referred To Contact Gastroenterology Diagnoses Family history of malignant neoplasm of gastrointestinal tract Cristopher Quezada MD NO ADDRESS ON FILE Cristopher Quezada MD NO ADDRESS ON FILE Referral ID Status Reason Start Date Expiration Date Visits Requested Visits Authorized [id number] Closed CRS To Schedule (STL) Performing Department To Schedule (STL) 08/11/2011 08/11/2012 1 1 Reason for Visit * Reason Onset Date Comments Procedure 08/11/2011 family hx colon ca Encounter Details Date Type Department Care Team (Late st Contact Info) Description 08/11/2011 Telephone [facility] Gastroenterology [place] [id number] [address] Cristopher Quezada MD NO ADDRESS [...] Procedure: colonoscopy Family hx colon ca Provider: [facility] Date and Time: 09/25/2011 @11:00am Location: [facility] Prep Given: mirrafi Referring Provider: (enter Referring only if different from PCP) PCP: Angelica Frankel MDP Have you been seen by any of our Physicians? yes; [facility] Previous Endoscopy: yes, date: colons 2000.2003,2006 Do [...] Stent or Bypass? (AICD) no Cornonary artery disease/stents.CA < 6 months ago? no Have you [...] Primary documented in this encounter Care Teams Hospital Scientist Relationship Specialty Start Date End Date Angelica Frankel MD [address] [place] [address] [address] [address] PCP - General Internal Medicine 08/11/11 documented as of this encounter
--- OUTSIDE RECORDS SUMMARY | 2024-03-15 17:48 | XMS_ITS | Encounter Summary ---
Author Organization [facility] Healthcare Address [address] [place] [address] Care Team Providers Care Sales Consultant Name Role Phone Phan Garvin MD Primary Care Provider [phone] Phan Garvin MD Unavailable [phone] Siddharth Jennings MD Unavailable [phone] Encounter Details Date Type Department Care Team (Late st Contact Info) Description 10/05/2023 Orders Only [facility] Health Information Management [address] [place] [address] Luis Ricketts MD [address] [address] Social History Tobacco Use Types Packs/Day Years Used Date Smoking Tobacco: Never Smokeless Tobacco: Never Alcohol Use Standard Drinks/Week Comments Yes 0 (1 standard drink = 0.6 oz pur e alcohol) [facility] Utilities Answer Date Recorded In the past 12 months has [employer] electric, gas, oil, or water company [...] often do you attend chur ch or mosque services? Never 07/20/2023 Do you belong to [...] place to sleep or slept in a mcc (including now)? No 07/20/2023 Personal Safety Answer Date Recorded Have you ever been in or are you currently in a harmful physical or emotional relationship or is someone making you feel afraid or unsafe? Denies 07/19/2023 Comments No Sex and Gender Information Value Date Recorded Sex Assigned at Not on file Legal Sex Female 7:11 PM COMPLAINT SPECIALIST Gender Identity Not on file Sexual [...] (10/05/2023) Anatomical Region Laterality Modality Other us [facility] Jose Raul Ricketts MD CV CARDIAC SERVICES PRO CEDURES Final Result documented in this encounter Visit Diagnoses Not on filedocumented in this encounter Care Teams Sales Consultant Relationship Specialty Start Date End Date Phan Garvin MD PCP - General Family Medicine 09/14/22 Phan Garvin MD Family Medicine 09/14/22 Siddharth Jennings MD [address] [place] [address] Consulting Physician Cardiology 10/10/23 documented as of this encounter
--- OUTSIDE RECORDS SUMMARY | 2024-03-15 17:48 | XMS_ITS | Encounter Summary ---
Author Organization [facility] Address [address] [place] [address] Care Team Providers Care Embedded Engineer Name Role Phone Angelica Frankel MD Primary Care Provider [phone] Reason for Visit * Auth/Cert Specialty Diagnoses / Procedures Referred By Dacia tan Referred To Contact Procedures ID REPAIR VAGINA/PERINEUM ID REPR VAGINAL PROLAPSE,SACROSP LIG Gaby Ceballos MD [address] [facility] [address] [address] Referral ID Status Reason Start Date Expiration Date Visits Re quested Visits Authorized [id number] 11/02/2016 1 1 Encounter Details Date Type Department Care Team (Late st Contact Info) Description 12/20/2016 9:11 AM CDT Anesthesia Event [facility] Operating Room [address] [place] [address] Isidro Newman MD [address] [place] [address] Marina Black, [facility] [address] [place] [address] Anesthesia Record Procedure Summary Procedure Name Responsible [...] Black CRNA * Anesthesia Preprocedure Evaluation - Isidor Newman MD - 12/20/2016 8:19 AM CDT [...] risks discussed with Patient and Patient Designated President Of The [place]. Plan discussed with Nurse Crime Scene Examiner. Post-op Pain Control Plan to use IV or IM medication for post-op pain control. Plan for postoperative opioid use Smoking Compliance Patient did not smoke on day of surgery Questions solicited and answered. Isidro Newman M.D. Anesthesiologist Zone Phone: [phone] documented in this encounter Plan of Treatment [...] mg documented in this encounter Care Teams Embedded Engineer Relationship Specialty Start Date End Date Angelica Frankel MD [address] [place] [address] [address] [address] PCP - General Internal Medicine 08/11/11 documented as of this encounter
--- OUTSIDE RECORDS SUMMARY | 2024-03-15 17:48 | XMS_ITS | Encounter Summary ---
Author Organization [facility] Healthcare Address [address] [place] [address] Care Team Providers Care Hogshead Hand Name Role Phone Phan Garvin MD Primary Care Provider [phone] Phan Garvin MD Unavailable [phone] Siddharth Jennings MD Unavailable [phone] Reason for Visit * Reason Comments Hospital Follow Up Encounter Details Date Type Department Care Team (Late st Contact Info) Description 11/27/2023 11:30 AM CDT Office Visit [facility] Medical Group Cardiology [address] [place] [address] Payal Carrasquillo NP [address] [place] [address] Paroxysmal atrial fibrillation (CMS/HCC) (HCC) (Primary Dx); Chronic anticoagulation Social History Tobacco Use Types Packs/Day Years Used Date Smoking Tobacco: Never Smokeless Tobacco: Never Tobacco Cessation:Counseling Given: Not Answered Alcohol Use Standard Drinks/Week Comments Yes 0 (1 standard drink = 0.6 oz pur e alcohol) [facility] Utilities Answer Date Recorded In the [...] often do you attend chur ch or orthodox services? 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 [facility] doctors (at [facility]) include Dr. Lauren, Dr. Rik Carreno, Dr. Weinstein, Dr. Scott. [facility] Medical Group doctor at [facility] is Dr. Martín Fabian. Call the office when you make a choice and we will send a referral. documented in this encounter Progress Notes * Payal Carrasquillo NP - 11/27/2023 11:30 AM CDT Images from the original note were not included. [facility] Cardiology [address] [place] [address] Date of Visit: 11/27/2023 Patient ID: Maria A Peralta 1940 Chief Complaint Patient presents with Hospital Follow Up Maria A Peralta is a 82 y.o. female who is an established patient of Dr. Jennings with PAF returning to the office for follow up after an ER visit for afib recurrence. History of Present Illness: Maria A Pearlta is a 82 y.o. female who presents for follow up of atrial fibrillation. This lizz patient that I saw in consultation at [facility] in February of 2022 when she came [...] her atrial fibrillation. She was at [facility] September of 2023 who was admitted [...] take an anticoagulant. 11/27/2023 office visit with [facility] TECHNICIAN: She was in [place] visiting family when she had an AFib [...] HOURS, Disp: 180 tablet, Rfl: 1 vit C,J-Ar-mdnwm-lutein-zeaxan (PreserVision AREDS-2) 250-90-40-1 mg capsule, Take 1 [...] go back to sinus rhythm before returning [facility] ER. Keep the February appt with Dr. [...] services. 11/27/2023 CONTRERAS Kelsey- Nurse Practitioner with [facility] Cardiology This note is dictated and transcribed using [employer] Software. Historiography Professor variancesmay occur. Despite proofreading, typographical errors may [...] documented as of this encounter Care Teams Hogshead Hand Relationship Specialty Start Date End Date Phan Garvin MD PCP - General Family Medicine 09/14/22 Phan Garvin MD Family Medicine 09/14/22 Siddharth Jennings MD [address] [address] Consulting Physician Cardiology 10/10/23 documented as of this encounter
--- OUTSIDE RECORDS SUMMARY | 2024-03-15 17:48 | XMS_ITS | Encounter Summary ---
Author Organization [facility] Healthcare Address [address] [place] [address] Care Team Providers Care Employee Relations Administrator Name Role Phone Phan Garvin MD Primary Care Provider [phone] Phan Garvin MD Unavailable [phone] Siddharth Jennings MD Unavailable [phone] Encounter Details Date Type Department Care Team (Late st Contact Info) Description 11/05/2023 Telephone [facility] Medical Group Cardiology [address] [place] [address] Siddharth Jennings MD [address] [place] [address] Social History Tobacco Use Types Packs/Day Years Used Date Smoking Tobacco: Never Smokeless Tobacco: Never Alcohol Use Standard Drinks/Week Comments Yes 0 (1 standard drink = 0.6 oz pur e alcohol) [facility] Utilities Answer Date Recorded In the past 12 months has [employer] electric, gas, oil, or water company threatened [...] any clubs o r organizations such as catholic groups, unions, fraternal or athletic groups, [...] place to sleep or slept in a group home (including now)? No 07/20/2023 Personal Safety Answer Date Recorded Have you ever been in or are you currently in a harmful physical or emotional relationship or is someone making you feel afraid or unsafe? 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 * Telephone Encounter - Tami Aaron - 11/05/2023 10:09 AM CDT Pt called to report she was at [facility] in [place], [place] on Wednesday 11/01 because she was in AFIB from 3-11pm. Contact: documented in this encounter Plan of Treatment Not on file documented as of this encounter Visit Diagnoses Not on filedocumented in this encounter Care Teams Employee Relations Administrator Relationship Specialty Start Date End Date Phan Garvin MD PCP - General Family Medicine 09/14/22 Phan Garvin MD Family Medicine 09/14/22 Siddharth Jennings MD [address] [facility] [address] [address] Consulting Physician Cardiology 10/10/23 documented as of this encounter
--- OUTSIDE RECORDS SUMMARY | 2024-03-15 17:48 | XMS_ITS | Encounter Summary ---
Author Organization [facility] Healthcare Address [address] [place] [address] Care Team Providers Care Math Teacher Name Role Phone Phan Garvin MD Primary Care Provider [phone] Phan Garvin MD Unavailable [phone] Siddharth Jennings MD Unavailable [phone] Encounter Details Date Type Department Care Team (Late st Contact Info) Description 11/27/2023 Telephone [facility] Medical Group Cardiology [address] [place] [address] Siddharth Jennings MD [address] [place] [address] Social History Tobacco Use Types Packs/Day Years Used Date Smoking Tobacco: Never Smokeless Tobacco: Never Alcohol Use Standard Drinks/Week Comments Yes 0 (1 standard drink = 0.6 oz pur e alcohol) [facility] Utilities Answer Date Recorded In the past 12 months has [employer] electric, gas, oil, or water company threatened [...] any clubs o r organizations such as temple groups, unions, fraternal or athletic groups, or [...] place to sleep or slept in a care home (including now)? No 07/20/2023 Personal Safety Answer Date Recorded Have you ever been in or are you currently in a harmful physical or emotional relationship or is someone making you feel afraid or unsafe? 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 Please send to [facility] in [place]. Serjiojonathan. Contact: documented in this [...] documented as of this encounter Care Teams Math Teacher Relationship Specialty Start Date End Date Phan Garvin MD PCP - General Family Medicine 09/14/22 Phan Garvin MD Family Medicine 09/14/22 Siddharth Jennings MD [address] [place] [address] Consulting Physician Cardiology 10/10/23 documented as of this encounter
--- OUTSIDE RECORDS SUMMARY | 2024-03-15 17:48 | XMS_ITS | Encounter Summary ---
Author Organization [facility] Healthcare Address [address] [place] [address] Care Team Providers Care Chemical Machine Tender Name Role Phone Phan Garvin MD Primary Care Provider [phone] Phan Garvin MD Unavailable [phone] Siddharth Jennings MD Unavailable [phone] Reason for Visit * Reason Comments Atrial Fibrillation Hospital Follow Up Encounter Details Date Type Department Care Team (Late st Contact Info) Description 10/18/2023 10:45 AM CDT Office Visit [facility] Medical Group Cardiology [address] [place] [address] Siddharth Jennings MD [address] [place] [address] Paroxysmal atrial fibrillation (CMS/HCC) (HCC) (Primary Dx) Social History Tobacco Use Types Packs/Day Years Used Date Smoking Tobacco: Never Smokeless Tobacco: Never Alcohol Use Standard Drinks/Week Comments Yes 0 (1 standard drink = 0.6 oz pur e alcohol) [facility] Utilities Answer Date Recorded In the past 12 months has [employer], gas, oil, or water company threatened to [...] often do you attend chur ch or adventist services? 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 She was at [facility] end of September of 2023 who was [...] HOURS, Disp: 180 tablet, Rfl: 1 vit C,V-Ov-deqii-lutein-zeaxan (PreserVision AREDS-2) 250-90-40-1 mg capsule, Take 1 [...] 11/27/2023 added in this encounter Care Teams Chemical Machine Tender Relationship Specialty Start Date End Date Phan Garvin MD PCP - General Family Medicine 09/14/22 Phan Garvin MD Family Medicine 09/14/22 Siddharth Jennings MD [address] [facility] [address] [place] [address] Consulting Physician Cardiology 10/10/23 documented as of this encounter
--- OUTSIDE RECORDS SUMMARY | 2024-03-15 17:48 | XMS_ITS | Encounter Summary ---
Author Organization [facility] Healthcare Address [address] [place] [address] Care Team Providers Care Tool Marker Name Role Phone Phan Garvin MD Primary Care Provider [phone] Phan Garvin MD Unavailable [phone] Siddharth Jennings MD Unavailable [phone] Encounter Details Date Type Department Care Team (Late st Contact Info) Description 10/25/2023 Telephone [facility] Medical Group Gastroenterology at [address] [place] [address] Rudy Hollis MD [address] [place] [address] [address] [place] [address] Social History Tobacco Use Types Packs/Day Years Used Date Smoking Tobacco: Never Smokeless Tobacco: Never Alcohol Use Standard Drinks/Week Comments Yes 0 (1 standard drink = 0.6 oz pur e alcohol) [facility] Utilities Answer Date Recorded In the past 12 months has [employer] electric, gas, oil, or water company threatened [...] any clubs o r organizations such as hindu groups, unions, fraternal or athletic groups, or [...] place to sleep or slept in a [facility] (including now)? No 07/20/2023 Personal Safety Answer Date Recorded Have you ever been in or are you currently in a harmful physical or emotional relationship or is someone making you feel afraid or unsafe? 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
--- OUTSIDE RECORDS SUMMARY | 2024-03-15 17:49 | XMS_ITS | Encounter Summary ---
Author Organization [facility] Address [address] [place] [address] Phone Care Team Providers Care Collar Runner Name Role Phone Phan Garvin MD Primary Care Provider [phone] Phan Garvin MD Unavailable [phone] Encounter Details Date Type Department Care Team (Late st Contact Info) Description 07/19/2023 Telephone [facility] Obstetrics and Gynecology [address] [facility] [address] [place] [address] Beth Santamaria, JOHN Social History Tobacco Use Types Packs/Day Years Used Date Smoking Tobacco: Never Smokeless Tobacco: Never Alcohol Use Standard Drinks/Week Comments Yes 0 (1 standard drink = 0.6 oz pur e alcohol) [facility] Utilities Answer Date Recorded In the past 12 months has [employer], gas, oil, or water [employer] threatened to shut off services in your [...] How often do you attend chur or advent services? 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
--- OUTSIDE RECORDS SUMMARY | 2024-03-15 17:49 | XMS_ITS | Encounter Summary ---
Author Organization [facility] Address [address] [place] [address] Phone Care Team Providers Care Road Manager Name Role Phone Phan Garvin MD Primary Care Provider [phone] Phna Garvin MD Unavailable [phone] Encounter Details Date Type Department Care Team (Late st Contact Info) Description 09/10/2023 Telephone [facility] Urology [address] [facility] Medical Office [address] [place] [address] Quincy Lucio MD [address] [facility] [address] [place] [address] Social History Tobacco Use Types Packs/Day Years Used Date Smoking Tobacco: Never Smokeless Tobacco: Never Alcohol Use Standard Drinks/Week Comments Yes 0 (1 standard drink = 0.6 oz pur e alcohol) [facility] Utilities Answer Date Recorded In the past 12 months has [employer] electric, gas, oil, or water company threatened [...] often do you attend chur ch or advent services? 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
--- OUTSIDE RECORDS SUMMARY | 2024-03-15 17:49 | XMS_ITS | Encounter Summary ---
Author Organization [facility] Address [address] [place] [address] Phone Care Team Providers Care Civil Engineering Project Manager Name Role Phone Phan Garvin MD Primary Care Provider [phone] Phan Garvin MD Unavailable [phone] Encounter Details Date Type Department Care Team (Late st Contact Info) Description 09/11/2023 Telephone [facility] Obstetrics and Gynecology [address] [facility] 7th Floor [address] [place] [address] Maria Esther Brown, RN Social History Tobacco Use Types Packs/Day Years Used Date Smoking Tobacco: Never Smokeless Tobacco: Never Alcohol Use Standard Drinks/Week Comments Yes 0 (1 standard drink = 0.6 oz pur e alcohol) [facility] Utilities Answer Date Recorded In the past 12 months has [employer], gas, oil, or water [employer] threatened to shut off services in your [...] How often do you attend chur or confucianism services? 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
--- OUTSIDE RECORDS SUMMARY | 2024-03-15 17:49 | XMS_ITS | Encounter Summary ---
Author Organization [facility] Address [address] [place] [address] Phone Care Team Providers Care Dairy Machine Operator Farmworker Name Role Phone Phan Garvin MD Primary Care Provider [phone] Phan Garvin MD Unavailable [phone] Encounter Details Date Type Department Care Team (Late st Contact Info) Description 07/19/2023 Telephone [facility] Infectious Diseases [address] [place] [address] [address] [place] [address] Zari Thomas BS Social History Tobacco Use Types Packs/Day Years Used Date Smoking Tobacco: Never Smokeless Tobacco: Never Alcohol Use Standard Drinks/Week Comments Yes 0 (1 standard drink = 0.6 oz pur e alcohol) [facility] Utilities Answer Date Recorded In the past 12 months has [employer], [employer], oil, or water [employer] threatened to shut off services in your [...] often do you attend chur ch or restorationism services? 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 Patient reporting unrelieved urinary pain, despite OTC medication, Dr. Chavis aware, advised patient to follow up with [facility]. * Telephone Encounter - Zari Thomas BS - 07/19/2023 8:26 AM CDT PT was wondering if her urine culture has come in yet [phone] documented in this encounter Plan of Treatment Not on file documented as of this encounter Visit Diagnoses Not on filedocumented in this encounter Care Teams Dairy Machine Operator Farmworker Relationship Specialty Start Date End Date Phan Garvin MD PCP - General Family Medicine 09/14/22 Phan Garvin MD Family Medicine 09/14/22 documented as of this encounter
--- OUTSIDE RECORDS SUMMARY | 2024-03-15 17:49 | XMS_ITS | Encounter Summary ---
Author Organization [facility] Healthcare Address [address] [place] [address] Care Team Providers Care Cider Maker Name Role Phone Phan Garvin MD Primary Care Provider [phone] Phan Garvin MD Unavailable [phone] Reason for Referral * MRI/CAT/PET Scan (Routine) - Closed Specialty Diagnoses / Procedures Referred By Dacia tan Referred To Contact Radiology Diagnoses Diverticulitis Diarrhea, unspecified type Anemia, unspecified type Procedure and treatment not carried out for other reasons Procedures CT Colonoscopy Diagnostic WO Contrast Rudy Hollis MD [address] [place] [address] [address] [place] [address] Phone: tel: fax: [address] [address] Referral ID Status Reason Start Date Expiration Date Visits Re quested Visits Authorized [id number] Closed 09/19/2023 03/17/2024 1 1 Reason for Visit * MRI/CAT/PET Scan (Routine) - Closed Specialty Diagnoses / Procedures Referred By Dacia tan Referred To Contact Radiology Diagnoses Diverticulitis Diarrhea, unspecified type Anemia, unspecified type Procedure and treatment not carried out for other reasons Procedures CT Colonoscopy Diagnostic WO Contrast Rudy Hollis MD [facility] [address] [place] [address] Phone: tel: fax: [facility] [address] [place] [phone] Referral ID Status Reason Start Date Expiration Date Visits Re quested Visits Authorized [id number] Closed 09/19/2023 03/17/2024 1 1 Encounter Details Date Type Department Care Team (Latest Contact Info) Description 10/03/2023 12:00 PM CDT - 10/03/2023 11:59 PM CDT Hospital Encounter [facility] - Imaging [address] [place] [address] Diverticulitis; Diarrhea, unspecified type; Anemia, unspecified type; Procedure and treatment not carried out for other reasons Discharge Disposition: Discharge to home or self care Social History Tobacco Use Types Packs/Day Years Used Date Smoking Tobacco: Never Smokeless Tobacco: Never Alcohol Use Standard Drinks/Week Comments Yes 0 (1 standard drink = 0.6 oz pur e alcohol) [facility] Utilities Answer Date Recorded In the past 12 months has [employer], gas, oil, or water [employer] threatened to shut off services in your [...] week 07/20/2023 How often do you attend [facility] or judaism services? Never 07/20/2023 Do you belong to [...] place to sleep or slept in a longterm (including now)? No 07/20/2023 Personal Safety Answer Date Recorded Have you ever been in or are you currently in a harmful physical or emotional relationship or is someone making you feel afraid or unsafe? 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
--- OUTSIDE RECORDS SUMMARY | 2024-03-15 17:49 | XMS_ITS | Encounter Summary ---
Author Organization [facility] Healthcare Address [address] [place] [address] Care Team Providers Care Hemming And Tacking Machine Operator Name Role Phone Phan Garvin MD Primary Care Provider [phone] Phan Garvin MD Unavailable [phone] Encounter Details Date Type Department Care Team (Late st Contact Info) Description 10/02/[address] [facility] Medical Group Gastroenterology at [address] [address] Rudy Hollis MD [address] [place] [address] Social History Tobacco Use Types Packs/Day Years Used Date Smoking Tobacco: Never Smokeless Tobacco: Never Alcohol Use Standard Drinks/Week Comments Yes 0 (1 standard drink = 0.6 oz pur e alcohol) [facility] Utilities Answer Date Recorded In the past 12 months has [employer], gas, oil, or water [employer] threatened to shut off services in your [...] week 07/20/2023 How often do you attend [facility] or spiritism services? 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 Please call her at [phone] documented in this encounter Plan of Treatment Not on file documented as of this encounter Visit Diagnoses Not on filedocumented in this encounter Care Teams Hemming And Tacking Machine Operator Relationship Specialty Start Date End Date Phan Garvin MD PCP - General Family Medicine 09/14/22 Phan Garvin MD Family Medicine 09/14/22 documented as of this encounter
--- OUTSIDE RECORDS SUMMARY | 2024-03-15 17:49 | XMS_ITS | Encounter Summary ---
Author Organization [facility] Healthcare Address [address] [place] [address] Care Team Providers Care Kennel Operator Name Role Phone Phan Garvin MD Primary Care Provider [phone] Phan Garvin MD Unavailable [phone] Reason for Visit * Reason Comments Atrial Fibrillation 6 month follow up. Encounter Details Date Type Department Care Team (Late st Contact Info) Description 08/23/2023 10:00 AM CDT Office Visit [facility] Medical Group Cardiology [address] [place] [address] Siddharth Jennings MD [address] [place] [address] Paroxysmal atrial fibrillation (CMS/HCC) (HCC) (Primary Dx) Social History Tobacco Use Types Packs/Day Years Used Date Smoking Tobacco: Never Smokeless Tobacco: Never Alcohol Use Standard Drinks/Week Comments Yes 0 (1 standard drink = 0.6 oz pur e alcohol) [facility] Utilities Answer Date Recorded In the past 12 months has [employer], gas, oil, or water company threatened [...] on file 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 She has been dealing with a difficulty with Clostridium difficile. She is also having difficulty with frequent problems with symptoms of dysuria and follows with the urologist at [place] for that. I did notice that according [...] HOURS, Disp: 60 tablet, Rfl: 5 vit C,I-Tg-prpnr-lutein-zeaxan (PreserVision AREDS-2) 250-90-40-1 mg capsule, Take 1 [...] documented as of this encounter Care Teams Kennel Operator Relationship Specialty Start Date End Date Phan Garvin MD PCP - General Family Medicine 09/14/22 Phan Garvin MD Family Medicine 09/14/22 documented as of this encounter
--- OUTSIDE RECORDS SUMMARY | 2024-03-15 17:49 | XMS_ITS | Encounter Summary ---
Author Organization [facility] Address [address] [place] [address] Phone Care Team Providers Care Plastics Process Hand Name Role Phone Phan Garvin MD Primary Care Provider [phone] Phan Garvin MD Unavailable [phone] Encounter Details Date Type Department Care Team (Late st Contact Info) Description 07/18/2023 Telephone [facility] Infectious Diseases [address] [place] [address] [address] [place] [address] Tessa Diaz, [facility] Social History Tobacco Use Types Packs/Day Years Used Date Smoking Tobacco: Never Smokeless Tobacco: Never Alcohol Use Standard Drinks/Week Comments Yes 0 (1 standard drink = 0.6 oz pur e alcohol) [facility] Utilities Answer Date Recorded In the past 12 months has [employer], [employer], oil, or water [employer] threatened to shut off services in your [...] often do you attend chur ch or taoism services? 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 Patient reporting unrelieved urinary pain, despite OTC medication, Dr. Chavis aware, advised patient to follow up with PURCHASING COORDINATOR. * Telephone Encounter - Tessa Diaz LCSW - 07/18/2023 3:42 PM CDT Patient is requesting a call back for her UTI Lab results, and what can she do for her pain. Patient is at [phone] documented in this encounter Plan of Treatment Not on file documented as of this encounter Visit Diagnoses Not on filedocumented in this encounter Care Teams Plastics Process Hand Relationship Specialty Start Date End Date Phan Garvin MD PCP - General Family Medicine 09/14/22 Phan Garvin MD Family Medicine 09/14/22 documented as of this encounter
--- OUTSIDE RECORDS SUMMARY | 2024-03-15 17:49 | XMS_ITS | Encounter Summary ---
Author Organization [facility] Address [address] [place] [address] Phone Care Team Providers Care Back Tender Name Role Phone Phan Garvin MD Primary Care Provider [phone] Phan Garvin MD Unavailable [phone] Encounter Details Date Type Department Care Team (Late st Contact Info) Description 09/18/2023 Telephone [facility] Obstetrics and Gynecology [address] [facility] Outpatient Health 7th Floor [address] [place] [address] Maria Esther Brown, RN Social History Tobacco Use Types Packs/Day Years Used Date Smoking Tobacco: Never Smokeless Tobacco: Never Alcohol Use Standard Drinks/Week Comments Yes 0 (1 standard drink = 0.6 oz pur e alcohol) [facility] Utilities Answer Date Recorded In the past 12 months has [employer], gas, oil, or water [employer] threatened to shut off services in [...] How often do you attend chur or jewish services? 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
--- OUTSIDE RECORDS SUMMARY | 2024-03-15 17:49 | XMS_ITS | Encounter Summary ---
Author Organization [facility] Address [address] [place] [address] Phone Care Team Providers Care Data Manager Name Role Phone Phan Garvin MD Primary Care Provider [phone] Phan Garvin MD Unavailable [phone] Reason for Visit * Reason Onset Date Comments final UACX result 09/17/2023 Encounter Details Date Type Department Care Team (Late st Contact Info) Description 09/17/2023 Telephone [facility] Obstetrics and Gynecology [facility] Health 7th Floor [address] [place] [address] Maria Esther Brown RN final UACX result Social History Tobacco Use Types Packs/Day Years Used Date Smoking Tobacco: Never Smokeless Tobacco: Never Alcohol Use Standard Drinks/Week Comments Yes 0 (1 standard drink = 0.6 oz pur e alcohol) [facility] Utilities Answer Date Recorded In the past 12 months has [employer], gas, oil, or water company threatened [...] often do you attend chur ch or congregational services? 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
--- OUTSIDE RECORDS SUMMARY | 2024-03-15 17:49 | XMS_ITS | Encounter Summary ---
Author Organization [facility] Address [address] [place] [address] Phone Care Team Providers Care Supervisor Telephone Clerks Name Role Phone Phan Garvin MD Primary Care Provider [phone] Phan Garvin MD Unavailable [phone] Reason for Visit * Reason Onset Date Comments Patient Concerns 09/10/2023 Encounter Details Date Type Department Care Team (Late st Contact Info) Description 09/10/2023 Telephone [facility] Obstetrics and Gynecology [address] [facility] [address] [place] [address] Beth Santamaria, RN Patient Concerns Social History Tobacco Use Types Packs/Day Years Used Date Smoking Tobacco: Never Smokeless Tobacco: Never Alcohol Use Standard Drinks/Week Comments Yes 0 (1 standard drink = 0.6 oz pur e alcohol) [facility] Utilities Answer Date Recorded In the past 12 months has [employer], gas, oil, or water [employer] threatened to shut off services in your [...] week 07/20/2023 How often do you attend [facility] or buddhism services? 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
--- OUTSIDE RECORDS SUMMARY | 2024-03-15 17:49 | XMS_ITS | Encounter Summary ---
Author Organization [facility] Address [address] [place] [address] Phone Care Team Providers Care Deli Associate Name Role Phone Phan Garvin MD Primary Care Provider [phone] Phan Garvin MD Unavailable [phone] Reason for Visit * Reason Onset Date Comments Scheduling Appointments 08/10/2023 Encounter Details Date Type Department Care Team (Late st Contact Info) Description 08/10/2023 Telephone [facility] [place] Obstetrics and Gynecology [facility] [place] [address] Judit Jackson Scheduling Appointments Social History Tobacco Use Types Packs/Day Years Used Date Smoking Tobacco: Never Smokeless Tobacco: Never Alcohol Use Standard Drinks/Week Comments Yes 0 (1 standard drink = 0.6 oz pur e alcohol) [facility] Utilities Answer Date Recorded In the past 12 months has [employer], gas, oil, or water [employer] threatened to shut off services in your [...] How often do you attend chur or roman catholic services? 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
--- OUTSIDE RECORDS SUMMARY | 2024-03-15 17:49 | XMS_ITS | Encounter Summary ---
Author Organization [facility] Address [address] [place] [address] Phone Care Team Providers Care Casing In Line Setter Name Role Phone Phan Garvin MD Primary Care Provider [phone] Phan Garvin MD Unavailable [phone] Reason for Visit * Reason Onset Date Comments UACX SHANNAN result 09/26/2023 Encounter Details Date Type Department Care Team (Late st Contact Info) Description 09/26/2023 Telephone [facility] Obstetrics and Gynecology [facility] Health 7th Floor [address] [place] [address] Maria Esther Brown RN UACX SHANNAN result Social History Tobacco Use Types Packs/Day Years Used Date Smoking Tobacco: Never Smokeless Tobacco: Never Alcohol Use Standard Drinks/Week Comments Yes 0 (1 standard drink = 0.6 oz pur e alcohol) [facility] Utilities Answer Date Recorded In the past 12 months has [email or web address] electric, gas, oil, or water company threatened [...] often do you attend chur ch or episcopalian services? 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
--- OUTSIDE RECORDS SUMMARY | 2024-03-15 17:49 | XMS_ITS | Encounter Summary ---
Author Organization [facility] Address [address] [place] [address] Phone Care Team Providers Care Bible Reader Name Role Phone Phan Garvin MD Primary Care Provider [phone] Phan Garvin MD Unavailable [phone] Encounter Details Date Type Department Care Team (Late st Contact Info) Description 09/14/2023 Telephone [facility] Obstetrics and Gynecology [address] [facility] Outpatient Health 7th Floor [address] [place] [address] Maria Esther Brown, RN Social History Tobacco Use Types Packs/Day Years Used Date Smoking Tobacco: Never Smokeless Tobacco: Never Alcohol Use Standard Drinks/Week Comments Yes 0 (1 standard drink = 0.6 oz pur e alcohol) [facility] Utilities Answer Date Recorded In the past 12 months has [employer], gas, oil, or water [employer] threatened to shut off services in your [...] How often do you attend chur or protestant services? 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 [place] ED provided her with IV hydration, pain [...] 09/14/2023 8:23 AM CDT To: [facility] Scheduling Pool Please off her Kefelx 500mg po bid for the Aerococcus. Please tell there is a 2nd species that pending. documented in this encounter Plan of Treatment Not on file documented as of this encounter Visit Diagnoses Not on filedocumented in this encounter Care Teams Bible Reader Relationship Specialty Start Date End Date Phan Garvin MD PCP - General Family Medicine 09/14/22 Phan Garvin MD Family Medicine 09/14/22 documented as of this encounter
--- OUTSIDE RECORDS SUMMARY | 2024-03-15 17:49 | XMS_ITS | Encounter Summary ---
Author Organization [facility] Address [address] [place] [address] Phone Care Team Providers Care Ssds Mk 2 Advanced Operator Name Role Phone Phan Garvin MD Primary Care Provider [phone] Phan Garvin MD Unavailable [phone] Reason for Visit * Reason Comments Bladder diverticulum * Consultation (Routine) - Closed Specialty Diagnoses / Procedures Referred By Contashley t Referred To Contact Urology Diagnoses Bladder diverticulum Phan Garvin MD [address] [address] Phone: tel: fax: [facility] (All Locations) Referral ID Status Reason Start Date Expiration Date V isits Requested Visits Authorized [id number] Closed Specialty Services Required 07/23/2023 08/21/2024 1 1 Encounter Details Date Type Department Care Team (Late st Contact Info) Description 07/26/2023 8:20 AM CDT Office Visit [facility] - [facility] Urology [address] [facility] 11th [place] [address] [place] [address] Quincy Lucio MD [address] [facility] [address] [place] [address] Bladder pain (Primary Dx); Bladder diverticulum; Recurrent urinary tract infection; Incomplete bladder emptying Social History Tobacco Use Types Packs/Day Years Used Date Smoking Tobacco: Never Smokeless Tobacco: Never Alcohol Use Standard Drinks/Week Comments Yes 0 (1 standard drink = 0.6 oz pur e alcohol) [facility] Utilities Answer Date Recorded In [...] often do you attend chur ch or judaism services? 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 Assessment and Plan: Low postvoid [...] and causing more pain. Parveen Lucio MD water reuse program manager (Urology) Division of Urologic Surgery [facility] Office [phone] 07/26/2023 8:39 AM Note: This note was [...] 07/26/2023 documented in this encounter Care Teams Ssds Mk 2 Advanced Operator Relationship Specialty Start Date End Date Phan Garvin MD PCP - General Family Medicine 09/14/22 Phan Garvin MD Family Medicine 09/14/22 documented as of this encounter
--- OUTSIDE RECORDS SUMMARY | 2024-03-15 17:49 | XMS_ITS | Encounter Summary ---
Author Organization [facility] Address [address] [place] [address] Phone Care Team Providers Care Commercial Drone Software Developer Name Role Phone Phan Garvin MD Primary Care Provider [phone] Phan Garvin MD Unavailable [phone] Encounter Details Date Type Department Care Team (Late st Contact Info) Description 07/16/2023 Telephone [facility] Infectious Diseases [address] [place] [address] [address] [place] [address] Marina Colunga, [facility] Social History Tobacco Use Types Packs/Day [...] on file Legal Sex 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 Please call the patient at [phone]. documented in this encounter Plan of Treatment Not on file documented as of this encounter Visit Diagnoses Not on filedocumented in this encounter Care Teams Commercial Drone Software Developer Relationship Specialty Start Date End Date Phan Garvin MD PCP - General Family Medicine 09/14/22 Phan Garvin MD Family Medicine 09/14/22 documented as of this encounter
--- OUTSIDE RECORDS SUMMARY | 2024-03-15 17:49 | XMS_ITS | Encounter Summary ---
Author Organization [facility] Address [address] [place] [address] Phone Care Team Providers Care Chief Lock Tender Operator Name Role Phone Phan Garvin MD Primary Care Provider [phone] Phan Garvin MD Unavailable [phone] Encounter Details Date Type Department Care Team (Late st Contact Info) Description 09/19/2023 Telephone [facility] Obstetrics and Gynecology [address] [facility] Outpatient Health 7th Floor [address] [place] [address] Maria Esther Brown, RN Social History Tobacco Use Types Packs/Day Years Used Date Smoking Tobacco: Never Smokeless Tobacco: Never Alcohol Use Standard Drinks/Week Comments Yes 0 (1 standard drink = 0.6 oz pur e alcohol) [facility] Utilities Answer Date Recorded In the past 12 months has [employer], gas, oil, or water [employer] threatened to shut off services in [...] any clubs o r organizations such as mosque groups, unions, fraternal or athletic groups, or [...] on file 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 documented in this encounter Plan of Treatment Not on file documented as of this encounter Procedures Procedure Name Priority Date/Time Associated Diagnosis Comments URINE CULTURE Routine 09/24/2023 9:12 AM CDT Recurrent UTI documented in this encounter Results * Urine culture Urine, clean voided (09/24/2023 9:12 AM CDT) Urine culture [facility] Comment: ??CULTURE, URINE, ROUTINE ?Micro Number: ?[id number] ??Test Status: ? Final ??Specimen Source: ?? [...] MICROBIOLOGY - GENERAL ORDERABLES Final Result [facility] [address] [place] [address] documented in this encounter Visit Diagnoses Diagnosis Recurrent UTI- Primary Urinary tract infection, site not specified documented in this encounter Care Teams Chief Lock Tender Operator Relationship Specialty Start Date End Date Phan Garvin MD PCP - General Family Medicine 09/14/22 Phan Garvin MD Family Medicine 09/14/22 documented as of this encounter
--- OUTSIDE RECORDS SUMMARY | 2024-03-15 17:49 | XMS_ITS | Encounter Summary ---
Author Organization [facility] [place] [facility] Address [address] [place] [address] Phone Care Team Providers Care General Duty Nurse Name Role Phone Phan Garvin MD Primary Care Provider [phone] Phan Garvin MD Unavailable [phone] Encounter Details Date Type Department Care Team (Late st Contact Info) Description 07/20/2023 Telephone [facility] Infectious Diseases [address] [place] [address] [address] [place] [address] Marina Colunga, [facility] Social History Tobacco Use Types Packs/Day Years Used Date Smoking Tobacco: Never Smokeless Tobacco: Never Alcohol Use Standard Drinks/Week Comments Yes 0 (1 standard drink = 0.6 oz pur e alcohol) [facility] Utilities Answer Date Recorded In the past 12 months has [employer], [employer], oil, or water [employer] threatened to shut off services in your [...] often do you attend chur ch or cheondoism services? Never 07/20/2023 Do you belong to [...] to sleep or slept in a senior living (including now)? No 07/20/2023 Personal Safety Answer Date Recorded Have you ever been in or are you currently in a harmful physical or emotional relationship or is someone making you feel afraid or unsafe? 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 * Telephone Encounter - Marina Colunga CMA - 07/20/2023 8:51 AM CDT This patient is in [facility] in [place]. The patient says she do not know why the [facility] lab did not find the infection in her body. [facility] found infection in this patient's Urethra, Bladder and Left Kidney. Please call the patient for questions, at [phone]. documented in this encounter Plan of Treatment Not on file documented as of this encounter Visit Diagnoses Not on filedocumented in this encounter Care Teams General Duty Nurse Relationship Specialty Start Date End Date Phan Garvin MD PCP - General Family Medicine 09/14/22 Phan Garvin MD Family Medicine 09/14/22 documented as of this encounter
--- OUTSIDE RECORDS SUMMARY | 2024-03-15 17:49 | XMS_ITS | Encounter Summary ---
Author Organization [facility] Address [address] [place] [address] Phone Care Team Providers Care Reception Clerk Name Role Phone Phan Garvin MD Primary Care Provider [phone] Phan Garvin MD Unavailable [phone] Encounter Details Date Type Department Care Team (Late st Contact Info) Description 09/06/2023 Telephone [facility] Surgery [address] [place], [place] [id number] Arlene Johnson, [facility] Social History Tobacco Use Types Packs/Day Years Used Date Smoking Tobacco: Never Smokeless Tobacco: Never Alcohol Use Standard Drinks/Week Comments Yes 0 (1 standard drink = 0.6 oz pur e alcohol) [facility] Utilities Answer Date Recorded In the past 12 months has [employer], gas, oil, or water [employer] threatened to shut off services in your [...] often do you attend chur ch or episcopal services? 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 She would like aurinalysis order sent to [facility]. Patient Provider: [facility] Information: Outcome/Plan: documented in this encounter Plan of Treatment Not on file documented as of this encounter Visit Diagnoses Not on filedocumented in this encounter Care Teams Reception Clerk Relationship Specialty Start Date End Date Phan Garvin MD PCP - General Family Medicine 09/14/22 Phan Garvin MD Family Medicine 09/14/22 documented as of this encounter
--- OUTSIDE RECORDS SUMMARY | 2024-03-15 17:49 | XMS_ITS | Encounter Summary ---
Author Organization [facility] Address [address] [place] [address] Care Team Providers Care Chief Resource Officer Name Role Phone Phan Garvin MD Primary Care Provider [phone] Phan Garvin MD Unavailable [phone] Reason for Referral * MRI/CAT/PET Scan (Routine) - Closed Specialty Diagnoses / Procedures Referred By Contac t Referred To Contact Radiology Diagnoses Diverticulitis Diarrhea, unspecified type Anemia, unspecified type Procedure and treatment not carried out for other reasons Procedures CT Colonoscopy Diagnostic WO Contrast Rudy Hollis MD [address] [place] [address] [address] [place] [address] Phone: tel: fax: [address] [address] Referral ID Status Reason Start Date Expiration Date Visits Re quested Visits Authorized [id number] Closed 09/19/2023 03/17/2024 1 1 Encounter Details Date Type Department Care Team (Latest Contact Info) Description 09/19/2023 Orders Only [facility] Medical Group Gastroenterology at [address] [place] [address] Rudy Hollis MD [address] [place] [address] [address] [place] [id number] Diverticulitis (Primary Dx); Diarrhea, unspecified type; Anemia, unspecified type; Procedure and treatment not carried out for other reasons Social History Tobacco Use Types Packs/Day Years Used Date Smoking Tobacco: Never Smokeless Tobacco: Never Alcohol Use Standard Drinks/Week Comments Yes 0 (1 standard drink = 0.6 oz pur e alcohol) [place] Utilities Answer Date Recorded In the past 12 months has e [employer], gas, oil, or water [employer] threatened to shut off services in your [...] How often do you attend chur or yarsani services? 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 Rudy Hollis MD [facility] Final Result documented in this [...] reasons documented in this encounter Care Teams Chief Resource Officer Relationship Specialty Start Date End Date Phan Garvin MD PCP - General Family Medicine 09/14/22 Phan Garvin MD Family Medicine 09/14/22 documented as of this encounter
--- OUTSIDE RECORDS SUMMARY | 2024-03-15 17:49 | XMS_ITS | Encounter Summary ---
Author Organization [facility] Address [address] [place] [address] Phone Care Team Providers Care Brand Advisor Name Role Phone Phan Garvin MD Primary Care Provider [phone] Phan Garvin MD Unavailable [phone] Encounter Details Date Type Department Care Team (Late st Contact Info) Description 07/10/2023 Telephone [facility] Infectious Diseases [address] [place] [address] [address] [place] [address] Zari Thomas BS Social History [...] on file Legal Sex Female 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 * Telephone Encounter - Zari Thomas BS - 07/10/2023 8:11 AM CDT Pt said she just wants to ask nurse what do you want me to do now [phone] documented in this encounter Plan of Treatment Not on file documented as of this encounter Visit Diagnoses Not on filedocumented in this encounter Care Teams Brand Advisor Relationship Specialty Start Date End Date Phan Garvin MD PCP - General Family Medicine 09/14/22 Phan Garvin MD Family Medicine 09/14/22 documented as of this encounter
--- OUTSIDE RECORDS SUMMARY | 2024-03-15 17:49 | XMS_ITS | Encounter Summary ---
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
--- OUTSIDE RECORDS SUMMARY | 2024-03-15 17:49 | XMS_ITS | Encounter Summary ---
Author Organization [facility] Address [address] [place] [address] Phone Care Team Providers Care Outbound Sales Advisor Name Role Phone Phan Garvin MD Primary Care Provider [phone] Phan Garvin MD Unavailable [phone] Encounter Details Date Type Department Care Team (Late st Contact Info) Description 07/10/2023 Orders Only [facility] Infectious Diseases [address] [place] [address] [address] [place] [address] Donnie Chavis MD [address] 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 Appearance, ur CLOUDY(A) CLEAR [facility] Specific gravity 1.013 1.001 - 1.035 [facility] pH, ur 5.5 5.0 - 8.0 [facility] Glucose, ur NEGATIVE NEGATIVE [facility] Bilirubin, ur NEGATIVE NEGATIVE [facility] Ketones, ur NEGATIVE NEGATIVE [facility] Blood, ur 2+(A) NEGATIVE [facility] Protein, ur, quant TRACE(A) NEGATIVE [facility] Nitrites, ur NEGATIVE NEGATIVE [facility] Leukocyte esterase, ur 3+(A) NEGATIVE [facility] WBC, ur > OR = 60(A) < OR = 5 /HPF [facility] RBC, ur 20-40(A) < OR = 2 /HPF [facility] Epithelial cells, squamous, ur 0-5 < OR = 5 /HPF [facility] Bacteria, ur, quant MANY(A) NONE SEEN /HPF [facility] Hyaline cast NONE SEEN NONE SEEN /LPF [facility] Note [facility] Comment: This urine was analyzed for the presence of WBC, RBC, bacteria, casts, and other formed elements. Only those elements seen were reported. 07/10/2023 12:5 9 PM CDT 07/10/2023 1:01 PM CDT Narrative [facility] - 07/11/2023 7:51 PM CDT FASTING:NO FASTING: NO Donnie Chavis MD LAB URINE ORDERABLES Final R esult Performing Organization Address [facility] de Phone Number [facility] [place] [address] [place] [address] * Urine culture Urine, clean voided (07/10/2023 12:59 PM CDT) Urine culture [facility] Comment: ??CULTURE, URINE, ROUTINE ?Micro Number: ?[id number] ??Test Status: ? Final ??Specimen Source: ?? Urine, clean catch ??Specimen Quality: ??Adequate ??Result: ?No Growth Urine, clean voided 07/10/2023 12:59 PM CDT 07/10/2023 1:01 PM CD[address]arrative [facility] - 07/11/2023 7:51 PM CDT FASTING:NO FASTING: NO Donnie Chavis MD LAB MICROBIOLOGY - GENERAL O RDERABLES Final Result Performing Organization Address [facility] de Phone Number [facility] [place] [address] [place] [address] documented in this encounter Visit Diagnoses Diagnosis Recurrent UTI- Primary Urinary tract infection, site not specified documented in this encounter Care Teams Outbound Sales Advisor Relationship Specialty Start Date End Date Phan Garvin MD PCP - General Family Medicine 09/14/22 Phan Garvin MD Family Medicine 09/14/22 documented as of this encounter
--- OUTSIDE RECORDS SUMMARY | 2024-03-15 17:49 | XMS_ITS | Encounter Summary ---
Author Organization [facility] Address [address] [place] [address] Care Team Providers Care Dressage Instructor Name Role Phone Phan Garvin MD Primary Care Provider [phone] Phan Garvin MD Unavailable [phone] Encounter Details Date Type Department Care Team (Late st Contact Info) Description 09/18/2023 Orders Only [facility] Gastroenterology at [address] [place] [address] Rudy Hollis MD [address] [place] [address] Procedure and treatment not carried out for other reasons (Primary Dx); Diverticulitis; Diarrhea, unspecified type Social History Tobacco Use Types Packs/Day Years Used Date Smoking Tobacco: Never Smokeless Tobacco: Never Alcohol Use Standard Drinks/Week Comments Yes 0 (1 standard drink = 0.6 oz pur e alcohol) [facility] Utilities Answer Date Recorded In the past 12 months has [employer], gas, oil, or water company threatened to [...] on file 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
--- OUTSIDE RECORDS SUMMARY | 2024-03-15 17:49 | XMS_ITS | Encounter Summary ---
Author Organization [facility] Address [address] [place] [address] Phone Care Team Providers Care Household Appliances Service Technician Name Role Phone Phan Garvin MD Primary Care Provider [phone] Phan Garvin MD Unavailable [phone] Encounter Details Date Type Department Care Team (Late st Contact Info) Description 09/06/2023 Orders Only [facility] Urology [address] [facility] [address] Office [address] [place] [address] Quincy Lucio MD [address] [facility] [address] [place] [address] Recurrent UTI (Primary Dx) Social History Tobacco Use Types Packs/Day Years Used Date Smoking Tobacco: Never Smokeless Tobacco: Never Alcohol Use Standard Drinks/Week Comments Yes 0 (1 standard drink = 0.6 oz pur e alcohol) [facility] Utilities Answer Date Recorded In the past 12 months has [employer], gas, oil, or water company threatened to [...] file 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 Gender Identity Not on file Sexual Orientation Not on file 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 Final ??Specimen Source: ?? [...] MICROBIOLOGY - GENERAL ORD ERABLES Final Result [facility] [address] [place] [address] documented in this encounter Visit Diagnoses Diagnosis Recurrent UTI- Primary Urinary tract infection, site not specified documented in this encounter Care Teams Household Appliances Service Technician Relationship Specialty Start Date End Date Phan Garvin MD PCP - General Family Medicine 09/14/22 Phan Garvin MD Family Medicine 09/14/22 documented as of this encounter
--- OUTSIDE RECORDS SUMMARY | 2024-03-15 17:49 | XMS_ITS | Encounter Summary ---
Author Organization 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 * Telephone Encounter - Zari Thomas BS - 07/13/2023 10:15 AM CDT Pts daughter can't find the pyridium that was recommended [phone] documented in this encounter Plan of Treatment Not on file documented as of this encounter Visit Diagnoses Not on filedocumented in this encounter Care Teams Electronics Specialist Relationship Specialty Start Date End Date Phan Garvin MD PCP - General Family Medicine 09/14/22 Phan Garvin MD Family Medicine 09/14/22 documented as of this encounter
--- OUTSIDE RECORDS SUMMARY | 2024-03-15 17:49 | XMS_ITS | Encounter Summary ---
Author Organization [facility] Healthcare Address [address] [place] [address] Care Team Providers Care Senior Consultant Name Role Phone Phan Garvin MD Primary Care Provider [phone] Phan Garvin MD Unavailable [phone] Reason for Visit * Reason Comments Bladder Problem Urinary Problem * Auth/Cert Specialty Diagnoses / Procedures Referred By Contac t Referred To Contact Diagnoses Pyelonephritis Procedures NA Referral ID Status Reason Start Date Expiration Date Visits Re quested Visits Authorized [id number] 1 1 Encounter Details Date Type Department Care Team (Latest Contact Info) Description 07/19/2023 6:09 PM CDT - 07/23/2023 1:50 PM CDT Hospital Encounter [facility] 5 Med Surg [facility] [place], [place] [address] Gaetano Tellez MD [facility] [place] [address] Lorena Jones MD [facility] [place] [place] [address] Vince Ibrahim MD [address] [place] [place] [address] Pyelonephritis (Primary Dx) Discharge Disposition: Discharge to home or self care Social History Tobacco Use Types Packs/Day Years Used Date Smoking Tobacco: Never Smokeless Tobacco: Never Alcohol Use Standard Drinks/Week Comments Yes 0 (1 standard drink = 0.6 oz pur e alcohol) [facility] Utilities Answer Date Recorded In the past [...] often do you attend chur ch or shinto services? 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 Not on file Not on file Not [...] Care Physician at Discharge: Phan Garvin MD [phone] Admission Date: 07/19/2023 Discharge Date: 07/23/2023 Admission Location: [facility] Problems/Diagnoses: Principal Problem: Pyelonephritis Resolved Problems: [...] of them urologist, have urology appointment at [facility] and advised to follow up with [...] day For: eye vitamin Generic drug: vit C,Y-Sq-salgs-lutein-zeaxan Sleep Aid (diphenhydrAMINE) 25 mg capsule Take [...] 8:20 AM Quincy Lucio MD [facility] 08/23/2023 10:00 AM Siddharth Jennings MD [facility] 25 minutes spent in patient interview, physical exam, preparing discharge order, discharge summary and discussing discharge medication and instruction with the patient documented in this encounter Discharge Instructions * Discharge Instr - Other Orders* Radha Vinson RN - 07/23/2023 11:52 AM CDT [facility] offers you a secure web portal to help you take better care of Maria A. With [facility], you can use the Internet to schedule appointments, see her test results and medical history, get medication refills, and message her care team securely. Going Home from the Hospital with [facility] Thank you for using [facility]. Please follow the instructions below to securely access your online medical record. How Do I Access my Discharge Instructions in [facility]? Go to [email or web address] Login with your [facility] username and password. Select My Medical Record Select Hospital Admissions From here, you can review your hospital After Visit Summary, including your discharge instructions. How Do I Make a Follow-Up Appointment in [facility]? Go to [email or web address] Login with your logtrust username and password. Select Appointments Select the link Schedule an Appt Follow the prompts to schedule your appointment Additional Information If you have questions, you can e-mail [email or web address] or call [phone] to talk to our [facility] staff. Remember, [facility] is NOT to be used for urgent [...] rosuvastatin (CRESTOR) 10 mg tablet 09/24/2019 vit C,X-Rb-modlq-lute in-zeaxan (PreserVision AREDS-2) 250-90-40-1 mg capsuleIndication s:eye [...] Reddy MCM.Div Pt shared eschatological views with instrument lens grinder. Prayer 07/23/23 1100 Time Spent Start Time 1115 Patient Spiritual Assessment Spirituality Assessed Yes Synagogue Affiliation Confucianist Active in Hoahaoism Yes (TV- Curt Ioana) Clinical Encounter Type Visited With Patient;Health care provider Synagogue Encounters Synagogue Needs Prayer Interventions Interventions Active listening;Prayer * [...] appt w Dr Lucio I [facility] 07/20 Vss No growth in blood cx [...] PANCREAS: Normal. ADRENAL GLANDS: Normal. KIDNEYS/URINARY TRACT: Jmdz-wy-bafeihhu renal atrophy. Urothelial enhancement. No visible inflammation. [...] Collin Cassidy M.D. AR: TEDDY Report ID: [id number] Reading Location: [id number] Current Facility-Administered Medications Medication Dose Route Frequency [...] appt w Dr Lucio I September at [facility] 07/20 Vss No growth in blood cx [...] PANCREAS: Normal. ADRENAL GLANDS: Normal. KIDNEYS/URINARY TRACT: Wjdw-mv-dcuazbcy renal atrophy. Urothelial enhancement. No visible inflammation. [...] Collin Cassidy M.D. AR: TEDDY Report ID: [id number] Reading Location: [place] [address] Current Facility-Administered Medications Medication Dose Route Frequency [...] has appt w Dr Naveed Mcbride at [facility] 07/20 Vss No growth in blood cx [...] PANCREAS: Normal. ADRENAL GLANDS: Normal. KIDNEYS/URINARY TRACT: Tcer-ah-komlonwt renal atrophy. Urothelial enhancement. No visible inflammation. [...] Collin Cassidy M.D. AR: TEDDY Report ID: [id number] Reading Location: [place] [address] Current Facility-Administered Medications Medication Dose Route Frequency [...] tablet 80 mg 80 mg oral Q12H COUNT INCLUDES THE [facility] Gaetano Tellez MD 80 mg at 07/20/232018 [...] statin Hypothyroidism: Continue Synthroid Voice recognition software MMGT Channel Fluency Direct was used dictate and transcribe this document. Production Planner variances may occur. Despite proofreading, typographical errors may occur. For patients or family members viewing this note through CrowdTanglehart: This note was written as a communication [...] Equipment-Currently Using None Prior Function Level of [place] Independent with homemaking with ambulation;Independent functional transfers;Independent [...] and lived alone. Home DME: N/A Impressions: VIDEO CLERK and CM met with patient at bedside [...] education to help reduce readmission and improve [facility]. Social Work Plan: No social service [...] More than three times a week Attends Synagogue Services: Never Active Member of Clubs or [...] has appt cate Lucio I September at [facility] OBJECTIVE Vitals: 24hr Min/Max: Temp Min: 36.8 [...] PANCREAS: Normal. ADRENAL GLANDS: Normal. KIDNEYS/URINARY TRACT: Zbbk-nt-yrlometj renal atrophy. Urothelial enhancement. No visible inflammation. [...] Collin Cassidy M.D. AR: TEDDY Report ID: [id number] Reading Location: [place] [address] Current Facility-Administered Medications Medication Dose Route Frequency [...] subcutaneous Daily-2100 Gaetano Tellez MD 40 mgat 07/20/23 0102 HYDROcodone-acetaminophen [...] tablet 80 mg 80 mg oral Q12H COUNT INCLUDES THE [facility] Gaetano Tellez MD A/P: [facility] Principal Problem: Pyelonephritis Resolved Problems: No resolved [...] if needed.. Hyperlipidemia: Continue statin Hypothyroidism: Continue Enprise Solutionsroid Voice recognition software Young Innovations Direct was used dictate and transcribe this document. Production Planner variances may occur. Despite proofreading, typographical errors may occur. For patients or family members viewing this note through logtrustt: This note was written as a communication [...] 07/19/2023 Primary Care Physician: Phan Garvin MD [phone] CHIEF COMPLAINT: Patient is a 82 y.o. [...] Past Medical History: Diagnosis Date Atrial fibrillation ([facility]) ([facility]) 03/01/2022 Hypercholesteremia Osteoporosis Recurrent UTI Past [...] PANCREAS: Normal. ADRENAL GLANDS: Normal. KIDNEYS/URINARY TRACT: Dsde-ho-nliyrutp renal atrophy. Urothelial enhancement. No visible inflammation. [...] used to dictate and transcribe this document. Production Planner variances may occur. 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 Patient prese nted to the emergency [...] tablet sotaloL (BETAPACE) 80 mg tablet vit C,N-Or-suxyw-lutein-zeaxan (PreserVision AREDS-2) 250-90-40-1 mg capsule zinc 50 mg tablet cefdinir (OMNICEF) 300 mg capsule methenamine (HIPREX) 1 gram tablet nitrofurantoin monohydrate (MACROBID) 100 mg capsule phenazopyridine (PYRIDIUM) 100 mg tablet rosuvastatin (CRESTOR) 10 mg tablet vancomycin (VANCOCIN) 125 mg capsule acidophilus-pectin, citrus 100 million cell-10 mg capsule turmeric root extract 500 mg capsule Current Facility-Administered Medications Ordered in [facility] Medication Dose Route Frequency Provider Last [...] MD 80 mg at 07/20/232018 No current [facility]-ordered outpatient medications on file. Immunosuppressive Medications: [...] week. Will increase 5 days a week a2eiqte every other day. Discussed with pharmacy no in-house Premarin cream therefore daughter to bring from home. 2. Atrial fibrillation rate controlled on Betapace. 3. Coronary artery disease on aspirin and statin continue 4. Hypertension stable blood pressure 5. 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 Avoid any unnecessary antibiotics use preserve healthy gut ul. documented in this encounter Nursing Notes * Araceli Dai RN - 07/23/2023 11:44 AM CDT Discharge, follow-up, and medication instructions reviewed with pt. All questions addressed at thistime. States she will call her ride. Expects poultry picker at [phone]. documented in this encounter ED Notes * [...] mL, 1,000 mL, intravenous, Once, Stone Larson, CHILDRENS CLUB ATTENDANT, Last Rate: 1,000 mL/hr at 07/19/232138, 1,000 [...] FOR DETAILED DIRECTIONS, Disp: , Rfl: vit C,C-Hi-tceee-lutein-zeaxan (PreserVision AREDS-2) 250-90-40-1 mg capsule, Take 1 [...] PANCREAS: Normal. ADRENAL GLANDS: Normal. KIDNEYS/URINARY TRACT: Uycs-ce-samsmbqg renal atrophy. Urothelial enhancement. No visible inflammation. [...] Collin Cassidy M.D. AR: TEDDY Report ID: [id number] Reading Location: [place] [address] ED COURSE/MEDICAL DECISION MAKING ED Course as [...] Admit This examination was transcribed using the Helioz R&D voice recognition system without human mobile game engineer. In an effort to expedite patient care, this report has not been adjusted for typographical, grammatical, and syntax by a trained administrative medical director. Stone Larson NP 07/19/232219 Cosigned by Cody [...] by Tiana Lundberg RN Outcome: Progressing Problem: Safety Goal: Free [...] Coverage: Aet Medicare Prescription Coverage: same Pharmacy: [facility]/pharmacy #[id number] - [place], [place] - [address] [facility] [address] [id number] - [place] [address] [place] [address] [place], [place] - [address] [facility] [address] Primary Care Provider: Phan Garvin MD Prior [...] steady place to sleep or slept in lancasterelter (including now)?: No (07/20/23 1028) Utilities: No, (07/20/23 102) Social Connections: In a typical week, how many times do you talk on the phone with family, friends, or neighbors?: More than three times a week How often do you get together with friends or relatives?: More than three times a week How often do you attend sikh or shinto services?: Never Do you belong to any clubs or organizations such as sikh groups, unions, fraternal or athletic groups, or [...] completed. C/O freq urination with incontinence. Urine julia to tea colored. Cultures pending. SR to SB on target trimmer. MD aware, meds adjusted accordingly. C/O abdominal [...] Differential, auto (07/21/2023 10:01 AM CDT) Pathologist [facility] Neutrophil abs 2.9 1.5 - 6.5 K/cumm Comment:Testing performed by : [address] [address] Imm gran abs 0.0 0.0 - 0.1 K/cumm JUAN JOSE Comment:Testing performed by : [address] [address] Lymphocyte abs 1.7 0.8 - 3.3 K/cumm JUAN JOSE Comment:Testing performed by : [address] [address] Monocyte abs 0.9(H) 0.2 - 0.8 K/cumm [facility] Comment:Testing performed by : [address] [address] Eosinophil abs 0.2 0.0 - 0.5 K/cumm JUAN JOSE Comment:Testing performed by : [address] [address] Basophil abs 0.0 0.0 - 0.1 K/cumm [facility] Comment:Testing performed by : [address] [address] Neutrophil pct 51.1 % [facility] Comment: Interpretive Data Percent cell count reference ranges are not reported, since discordance with absolute values may lead to misinterpretation of CBC data. Current Interpretive Data was last revised on 2017. Testing performed by: [address] [address] Imm gran pct 0.2 % [facility] Comment: Interpretive Data Percent cell count reference ranges are not reported, since discordance with absolute values may lead to misinterpretation of CBC data. Current Interpretive Data was last revised on 2017. Testing performed by: [address] [address] Lymphocyte pct 29.0 % [facility] Comment: Interpretive Data Percent cell count reference ranges are not reported, since discordance with absolute values may lead to misinterpretation of CBC data. Current Interpretive Data was last revised on 2017. Testing performed by: [address] [address] Monocyte pct 14.8 % [facility] Comment: Interpretive Data Percent cell count reference ranges are not reported, since discordance with absolute values may lead to misinterpretation of CBC data. Current Interpretive Data was last revised on 2017. Testing performed by: [address] [address] Eosinophil pct 4.2 % [facility] Comment: Interpretive Data Percent cell count reference ranges are not reported, since discordance with absolute values may lead to misinterpretation of CBC data. Current Interpretive Data was last revised on 2017. Testing performed by: [address] [address] Basophil pct 0.7 % [facility] Comment: Interpretive Data Percent cell count reference ranges are not reported, since discordance with absolute values may lead to misinterpretation of CBC data. Current Interpretive Data was last revised on 2017. Testing performed by: [address] [address] Blood 07/21/2023 10:0 1 AM CDT 07/21/2023 10:54 AM CDT us Lorena Jones MD LAB BLOOD ORDERABLES Final Resul t JUAN JOSE [address] [facility] Department [place] [address] * (ABNORMAL) CBC with auto differential (07/21/2023 10:01 AM CDT) WBC 5.7 3.8 - 9.9 K/cumm Comment:Testing performed by : [address] [address] Hgb 10.6(L) 11.9 - 15.5 g/dL JUAN JOSE Comment:Testing performed by : [address], [address] Hct 33.2(L) 35.6 - 45.5 % JUAN JOSE Comment:Testing performed by : [address] [address] Plt 188 150 - 400 K/cumm JUAN JOSE Comment:Testing performed by : [address], [address] MPV 11.7 9.1 - 12.3 fL JUAN JOSE Comment:Testing performed by : [address], [address] RBC 3.59(L) 3.90 - 5.20 M/cumm JUAN JOSE Comment:Testing performed by : [address], [address] MCV 92.5 81.3 - 96.4 fL JUAN JOSE Comment:Testing performed by : [address], [address] MCH 29.5 27.1 - 33.3 pg JUAN JOSE Comment:Testing performed by : [address], [address] MCHC 31.9(L) 32.3 - 35.7 g/dL JUAN JOSE Comment:Testing performed by : [address], [address] RDW CV 14.1 11.1 - 14.9 % JUAN JOSE Comment:Testing performed by : [address] [address] RDW SD 48.1 35.7 - 48.1 fL JUAN JOSE Comment:Testing performed by : [address], [address] NRBC abs 0.00 0.00 - 0.01 K/cumm JUAN JOSE Comment:Testing performed by : [address], [address] Blood 07/21/2023 10:0 1 AM CDT 07/21/2023 10:54 AM CDT us Lorena Jones MD LAB BLOOD ORDERABLES Final Resul t Performing Organization Address [facility] Co de Phone Number JUAN JOSE [address] [facility] Department [place] [address] * ECG 12 lead (07/20/2023 10:27 AM CDT) Pathologist [facility] Ventricular Rate EKG/Min 64 BPM [facility] Atrial Rate 64 BPM [facility] CT-Interval (MSEC) 158 ms [facility] QRS-Interval (MSEC) 88 ms [facility] QT-Interval (MSEC) 464 ms [facility] QTc 478 ms [facility] P Roderfield 21 degrees [facility] R [place]field -11 degrees [facility] T [place] 15 degrees [facility] Diagnosis Normal sinus rhythm with sinus arrhythmia Normal ECG When compared with ECG of 20-JUL-2023 00:59, No significant change was found Confirmed by ALEXI ECHOLS M.D. ([id number]) on 07/21/2023 7:29:21 PM [facility] 07/20/2023 10:2 7 AM CDT 07/21/2023 7:29 PM CDT us Gaetano Tellez MD ECG ORDERABLES Final Result Performing Organization Address [facility] de Phone Number [facility] * eGFR (07/20/2023 5:03 AM CDT) Pathologist [facility] eGFR 88 >=60 mL/min/1. 73 m2 Comment: [...] was last reviewed 2021. Testing performed by: [address] [address] Blood 07/20/2023 5:03 AM CDT 07/20/2023 5:27 AM CDT us Gaetano Tellez MD LAB BLOOD ORDERABLES Final Result [facility] [address] [facility] Department [place] [address] * (ABNORMAL) CBC without differential (07/20/2023 5:03 AM CDT) [facility] WBC 7.2 3.8 - 9.9 K/cumm Comment:Testing performed by : [address] [address] Hgb 10.8(L) 11.9 - 15.5 g/dL JUAN JOSE DEMPSEY Comment:Testing performed by : [address] [address] Hct 35.1(L) 35.6 - 45.5 % JUAN JOSE Comment:Testing performed by : [address] [address] Plt 158 150 - 400 K/cumm JUAN JOSE DEMPSEY Comment:Testing performed by : [address] [address] MPV 11.8 9.1 - 12.3 fL JUAN JOSE DEMPSEY Comment:Testing performed by : [address] [address] RBC 3.67(L) 3.90 - 5.20 M/cumm JUAN JOSE DEMPSEY Comment:Testing performed by : [address] [address] MCV 95.6 81.3 - 96.4 fL JUAN JOSE Comment:Testing performed by : [address] [address] MCH 29.4 27.1 - 33.3 pg JUAN JOSE Comment:Testing performed by : [address] [address] MCHC 30.8(L) 32.3 - 35.7 g/dL JUAN JOSE Comment:Testing performed by : [address] [address] RDW CV 14.4 11.1 - 14.9 % JUAN JOSE Comment:Testing performed by : [address] [address] RDW SD 50.4(H) 35.7 - 48.1 fL JUAN JOSE Comment:Testing performed by : [address] [address] NRBC abs 0.00 0.00 - 0.01 K/cumm JUAN JOSE Comment:Testing performed by : [address] [address] Blood 07/20/2023 5:03 AM CDT 07/20/2023 5:27 AM CDT us Gaetano Tellez MD LAB BLOOD ORDERABLES Final Result JUAN JOSE [facility] [facility] Department [place] [address] * Magnesium (07/20/2023 5:03 AM CDT) Magnesium 1.7 1.4 - 2.5 mg/dL Comment:Testing performed by : [address] [address] Blood 07/20/2023 5:03 AM CDT 07/20/2023 5:27 AM CDT us Gaetano Tellez MD LAB BLOOD ORDERABLES Final Result [facility] [address] [facility] Department [place] [address] * (ABNORMAL) Comprehensive metabolic panel (07/20/2023 5:03 AM CDT) Sodium 136 135 - 145 mmol/L Comment:Testing performed by : [address] [address] Potassium, pl 4.1 3.3 - 4.9 mmol/L JUAN JOSE Comment:Testing performed by : [address] [address] Chloride 104 97 - 110 mmol/L JUAN JOSE Comment:Testing performed by : [address] [address] CO2 20(L) 22 - 32 mmol/L JUAN JOSE Comment:Testing performed by : [address] [address] Anion gap 12 2 - 15 mmol/L JUAN JOSE Comment:Testing performed by : [address] [address] BUN 20 6 - 25 mg/dL JUAN JOSE Comment:Testing performed by : [address] [address] Creatinine 0.60 0.60 - 1.10 mg/dL JUAN JOSE Comment:Testing performed by : [address] [address] Glucose 97 70 - 199 mg/dL JUAN [...] was last revised 2022. Testing performed by: [address] [address] Calcium 8.5 8.5 - 10.3 mg/dL JUAN JOSE Comment:Testing performed by : [address] [address] Bilirubin, total 0.3 0.1 - 1.2 mg/dL JUAN JOSE Comment:Testing performed by : [address] [address] Protein, pl 5.8(L) 6.5 - 8.5 g/dL JUAN JOSE Comment:Testing performed by : [address] [address] Albumin 3.0(L) 3.5 - 5.0 g/dL JUAN JOSE Comment:Testing performed by : [address] [address] Alk phos 100 40 - 130 Units/L JUAN JOSE Comment:Testing performed by : [address] [address] ALT 17 7 - 45 Units/L JUAN JOSE Comment:Testing performed by : [address] [address] AST 21 10 - 45 Units/L JUAN JOSE Comment: HEMOLYZED: Hemolysis interferes with the above test. Testing performed by: [address] [address] Blood 07/20/2023 5:03 AM CDT 07/20/2023 5:27 AM CDT us Gaetano Tellez MD LAB BLOOD ORDERABLES Final Result JUAN JOSE DEMPSEY [address] [facility] Department [place] [address] * ECG 12 lead (07/20/2023 12:59 AM CDT) Pathologist [facility] Ventricular Rate EKG/Min 65 BPM [facility] Atrial Rate 65 BPM [facility] CT-Interval (MSEC) 162 ms [facility] QRS-Interval (MSEC) 88 ms [facility] QT-Interval (MSEC) 458 ms [facility] QTc 476 ms [facility] P Roderfield -6 degrees [facility] R R[place]field -10 degrees [facility] T Roderfield 18 degrees [facility] Diagnosis Normal sinus rhythm Normal ECG No previous ECGs available Confirmed by ALEXI ECHOLS M.D. ([id number]) on 07/21/2023 7:02:35 PM [facility] 07/20/2023 12:5 9 AM CDT 07/21/2023 7:02 PM CDT us Gaetano Tellez MD ECG ORDERABLES Final Result [facility] [place] * Blood culture Blood Peripheral (07/19/2023 10:48 PM CDT) Report Final Report: No growth Comment:Testing performed by : [facility], [address] [facility], [place], [place]., [address] Blood (Peripheral) 07/19/2023 10:48 PM CDT 07/20/2023 [...] organism identification may be performed using the boaconsulta.comigene Gram-Positive Blood Culture Assay. This assay detects microbial DNA in positive blood culture broth via hybridization of target DNA to capture oligonucleotides on a microarray. This assay has been cleared by the [place] Food and Drug Administration and its performance characteristics have been verified by the [facility] Microbiology [facility]. 5. ?For questions about this culture, contact the Microbiology Laboratory at [phone]. Interpretive data was last revised on 2019. Stone Larson NP LAB MICROBIOLOGY - GENERAL ORDER KARLA Final Result JUAN JOSE [address] [facility] Department [place] [address] * Blood culture Blood Peripheral (07/19/2023 10:36 PM CDT) Report Final Report: No growth Comment:Testing performed by : [facility] Healthcare, [address] [place] [address] Blood (Peripheral) 07/19/2023 10:36 PM CDT 07/20/2023 1:25 AM CDT [facility] JUAN JOSE - 07/24/2023 7:00 AM CDT [...] performance characteristics have been verified by the [facility]. 5. ?For questions about this culture, contact the Microbiology Laboratory at [phone]. Interpretive data was last revised on 2019. us Stone Larson NP LAB MICROBIOLOGY - GENERAL ORDER KARLA Final Result JUAN JOSE [address] [facility] Department [place] [address] * CT Abdomen Pelvis W Contrast (07/19/2023 [...] PANCREAS: ??Normal. ADRENAL GLANDS: ??Normal. KIDNEYS/URINARY TRACT: ??Whkr-xo-encpprvg renal atrophy. ??Urothelial enhancement. ??No visible inflammation. [...] PM T: ??07/19/2023 8:38 PM Report ID: [id number] Reading Location: ??[id number] Procedure Note Collin Cassidy MD - 07/19/2023 [...] PANCREAS: Normal. ADRENAL GLANDS: Normal. KIDNEYS/URINARY TRACT: Rjgh-gi-lscrqurz renal atrophy. Urothelial enhancement. No visible inflammation. [...] Collin Cassidy M.D. AR: TEDDY Report ID: [id number] Reading Location: [id number] us Stone Larson NP IMG CT PROCEDURES Final Result * Urine culture Urine (07/19/2023 4:51 PM CDT) Report Final Report: Less than 100,000 colonies/mL (clinically insignificant growth based on current clinical standards) Comment:Testing performed by : [facility], [address] [place]., [address] Organism (CLINICALLY INSIGNIFICANT GROWTH JUAN JOSE DEMPSEY Urine 07/19/2023 4:51 PM CDT 07/19/2023 8:04 PM CDT Narrative JUAN JOSE DEMPSEY - 07/21/2023 7:55 AM CDT Urine culture reflexed based upon urinalysis results. Testing performed by [facility] ([phone]) us Mickey Adame MD LAB MICROBIOLOGY - GENERA L ORDERABLES Final Result JUAN JOSE DEMPSEY [address] [facility] Department [place] [address] * (ABNORMAL) Urinalysis, microscopic only (07/19/2023 4:51 PM CDT) WBC, ur >50(A) 0 - 5 /HPF Comment:Testing performed by : [address] [address] RBC, ur >50(A) 0 - 2 /HPF JUAN JOSE Comment:Testing performed by : [address] [address] Epithelial cells, squamous, ur 21-50(A) 0 - 5 /HPF JUAN JOSE Comment:Testing performed by : [address] [address] Culture Reflex Comment Reflex to urine culture will be performed. JUAN JOSE Comment:Testing performed by : [address] [address] Urine 07/19/2023 4:51 PM CDT 07/19/2023 4:55 PM CDT us Gaetano Tellez MD LAB URINE ORDERABLES Final Result JUAN JOSE [address] [facility] Department [place] [address] * (ABNORMAL) Urinalysis reflex to microscopic and culture Urine (07/19/2023 4:51 PM CDT) Color, ur Yellow Yellow Comment:Testing performed by : [address] [address] Clarity, ur Turbid(A) Clear JUAN JOSE Comment:Testing performed by : [address] [address] Specific gravity, ur 1.010 1.003 - 1.030 JUAN JOSE Comment:Testing performed by : [address] [address] pH, urine 7.0 JUAN JOSE Comment: Interpretive Data ? Urine pH is affected by diet, medications, systemic acid-base disturbances, and renal tubular function. ??pH may affect urinary stone formation. ??For example, urine pH below 6.0 may help reduce the tendency for calcium phosphate stones and pH greater than 6.0 may reduce the tendency for uric acid stone formation. Source: [facility] Current Interpretive Data was last revised on 2017 Testing performed by: [facility], [address] [place] [address]., [address] Protein, ur ql 2+(A) Negative JUAN JOSE Comment:Testing performed by : [address] [address] Glucose, ur ql Negative Negative JUAN JOSE Comment:Testing performed by : [address], [place]., [address] Ketones, ur Negative Negative JUAN JOSE Comment:Testing performed by : [address], [place]., [address] Bilirubin, ur 1+(A) Negative JUAN JOSE Comment:Testing performed by : [address], [place]., [address] Blood, ur 2+(A) Negative JUAN JOSE Comment:Testing performed by : [address], [place]., [address] Urobilinogen, ur 2.0(A) <2.0 mg/dL JUAN JOSE Comment:Testing performed by : [address] [address] Nitrite, ur Positive(A) Negative JUAN JOSE Comment:Testing performed by : [address] [address] Leukocyte esterase, ur 4+(A) Negative JUAN JOSE Comment:Testing performed by : [address] [address] UA reflex comment Reflex to microscopic UA will be performed. JUAN JOSE Comment:Testing performed by : [address] [address] Urine 07/19/2023 4:51 PM CDT 07/19/2023 4:55 PM CDT us Gaetano Tellez MD LAB MICROBIOLOGY - NERAL ORDERABLES Final Result JUAN JOSE [address] [facility] Department [place] [address] * eGFR (07/19/2023 4:42 PM CDT) eGFR [...] was last reviewed 2021. Testing performed by: [facility], [address] [place] [address]., [address] Blood 07/19/2023 4:42 PM CDT 07/19/2023 4:46 PM CDT us Gaetano Tellez MD LAB BLOOD ORDERABLES Final Result Performing Organization Address City/[facility]/ZIP Co de Phone Number JUAN JOSE [address] [facility] Department [place] [address] * (ABNORMAL) Differential, auto (07/19/2023 4:42 PM CDT) Neutrophil abs 3.9 1.5 - 6.5 K/cumm Comment:Testing performed by : [address] [address] Imm gran abs 0.0 0.0 - 0.1 K/cumm JUAN JOSE Comment:Testing performed by : [address] [address] Lymphocyte abs 2.2 0.8 - 3.3 K/cumm [facility] Comment:Testing performed by : [address] [address] Monocyte abs 1.0(H) 0.2 - 0.8 K/cumm [facility] Comment:Testing performed by : [address] [address] Eosinophil abs 0.2 0.0 - 0.5 K/cumm [facility] Comment:Testing performed by : [address] [address] Basophil abs 0.0 0.0 - 0.1 K/cumm [facility] Comment:Testing performed by : [address] [address] Neutrophil pct 52.9 % [facility] Comment: Interpretive Data Percent cell count reference ranges are not reported, since discordance with absolute values may lead to misinterpretation of CBC data. Current Interpretive Data was last revised on 2017. Testing performed by: [address] [address] Imm gran pct 0.3 % [facility] Comment: Interpretive Data Percent cell count reference ranges are not reported, since discordance with absolute values may lead to misinterpretation of CBC data. Current Interpretive Data was last revised on 2017. Testing performed by: [address] [address] Lymphocyte pct 29.8 % CERNER Comment: Interpretive Data Percent cell count reference ranges are not reported, since discordance with absolute values may lead to misinterpretation of CBC data. Current Interpretive Data was last revised on 2017. Testing performed by: [address] [address] Monocyte pct 13.8 % JUAN JOSE Comment: Interpretive Data Percent cell count reference ranges are not reported, since discordance with absolute values may lead to misinterpretation of CBC data. Current Interpretive Data was last revised on 2017. Testing performed by: [address] [address] Eosinophil pct 2.7 % JUAN JOSE DEMPSEY Comment: Interpretive Data Percent cell count reference ranges are not reported, since discordance with absolute values may lead to misinterpretation of CBC data. Current Interpretive Data was last revised on 2017. Testing performed by: [address] [address] Basophil pct 0.5 % JUAN JOSE Comment: Interpretive Data Percent cell count reference ranges are not reported, since discordance with absolute values may lead to misinterpretation of CBC data. Current Interpretive Data was last revised on 2017. Testing performed by: [address] [address] Blood 07/19/2023 4:42 PM CDT 07/19/2023 4:46 PM CDT us Gaetano Tellez MD LAB BLOOD ORDERABLES Final Result JUAN JOSE [address] [facility] Department of Laboratories [place], [place] [id number] * (ABNORMAL) CBC with auto differential (07/19/2023 4:42 PM CDT) WBC 7.3 3.8 - 9.9 K/cumm Comment:Testing performed by : [address] [address] Hgb 11.6(L) 11.9 - 15.5 g/dL JUAN JOSE DEMPSEY Comment:Testing performed by : [address] [address] Hct 35.7 35.6 - 45.5 % JUAN JOSE DEMPSEY Comment:Testing performed by : [address] [address] Plt 200 150 - 400 K/cumm JUAN JOSE DEMPSEY Comment:Testing performed by : [address] [address] MPV 10.9 9.1 - 12.3 fL JUAN JOSE DEMPSEY Comment:Testing performed by : [address] [address] RBC 3.95 3.90 - 5.20 M/cumm JUAN JOSE DEMPSEY Comment:Testing performed by : [address] [address] MCV 90.4 81.3 - 96.4 fL JUAN JOSE DEMPSEY Comment:Testing performed by : [address] [address] MCH 29.4 27.1 - 33.3 pg JUAN JOSE DEMPSEY Comment:Testing performed by : [address] [address] MCHC 32.5 32.3 - 35.7 g/dL JUAN JOSE DEMPSEY Comment:Testing performed by : [address] [address] RDW CV 14.4 11.1 - 14.9 % JUAN JOSE Comment:Testing performed by : [address] [address] RDW SD 47.6 35.7 - 48.1 fL JUAN JOSE DEMPSEY Comment:Testing performed by : [address] [address] NRBC abs 0.00 0.00 - 0.01 K/cumm JUAN JOSE Comment:Testing performed by : [address] [address] Blood 07/19/2023 4:42 PM CDT 07/19/2023 4:46 PM CDT us Gaetano Tellez MD LAB BLOOD ORDERABLES Final Result JUAN JOSE [address] [facility] Department [place] [address] * Comprehensive metabolic panel (07/19/2023 4:42 PM CDT) Sodium 137 135 - 145 mmol/L Comment:Testing performed by : [address], [place]., [address] Potassium, pl 4.0 3.3 - 4.9 mmol/L JUAN JOSE Comment:Testing performed by : [address], [place]., [address] Chloride 101 97 - 110 mmol/L JUAN JOSE Comment:Testing performed by : [address], [place]., [address] CO2 23 22 - 32 mmol/L JUAN JOSE Comment:Testing performed by : [address], [place]., [address] Anion gap 13 2 - 15 mmol/L JUAN JOSE Comment:Testing performed by : [address], [place]., [address] BUN 21 6 - 25 mg/dL JUAN JOSE Comment:Testing performed by : [address], [place]., [address] Creatinine 0.80 0.60 - 1.10 mg/dL JUAN JOSE Comment:Testing performed by : [address], [place]., [address] Glucose 101 70 - 199 mg/dL [facility] Comment: Interpretive Data Fasting glucose >/= 126 [...] was last revised 2022. Testing performed by: [address] [address] Calcium 9.0 8.5 - 10.3 mg/dL JUAN JOSE Comment:Testing performed by : [address], [place]., [address] Bilirubin, total 0.5 0.1 - 1.2 mg/dL JUAN JOSE Comment:Testing performed by : [address] [address] Protein, pl 6.7 6.5 - 8.5 g/dL JUAN JOSE DEMPSEY Comment:Testing performed by : [address] [address] Albumin 3.6 3.5 - 5.0 g/dL JUAN JOSE DEMPSEY Comment:Testing performed by : [address] [address] Alk phos 117 40 - 130 Units/L JUAN JOSE DEMPSEY Comment:Testing performed by : [address] [address] ALT 22 7 - 45 Units/L JUAN JOSE DEMPSEY Comment:Testing performed by : [address] [address] AST 23 10 - 45 Units/L JUAN JOSE Comment:Testing performed by : [address] [address] Blood 07/19/2023 4:42 PM CDT 07/19/2023 4:46 PM CDT us Gaetano Tellez MD LAB BLOOD ORDERABLES Final Result Performing Organization Address City/State/[facility] Co de Phone Number JUAN JOSE [address] [facility] Department [place] [address] documented in this encounter Visit Diagnoses Diagnosis [...] per day on Sunday), First dose on [facility] [[email or web address]] 07/21/23 at 1800, For 14 days, Indications: Abdominal Pain of Unknown CauseIndications:Abdominal Pain of Unknown Cause Given 07/22/2023 5:36 PM CDT 2 g Given 07/21/2023 5:47 PM CDT 2 g HYDROcodone-acetaminophen (NORCO) 5-325 mg per tablet 1 tablet 1 tablet, oral, Once, On [facility] 07/19/23 at 1907, For 1 dose, Indications: PainIndications:Pain Given 07/19/2023 7:10 PM CDT 1 tablet HYDROcodone-acetaminophen (NORCO) 5-325 mg per tablet 1 tablet 1 tablet, oral, Every 4 hours PRN, moderate pain, Starting on [facility] 07/19/23 at 2256, Indications: PainIndications:Pain Given 07/23/2023 1:21 PM CDT 1 tablet Given 07/21/2023 5:47 PM CDT 1 tablet Given 07/21/2023 5:27 AM CDT 1 tablet ibuprofen (ADVIL,MOTRIN) tablet 400 mg 400 mg, oral, Once, On [facility] 07/19/23 at 1701, For 1 dose Given 07/19/2023 5:01 PM CDT 400 mg ibuprofen (ADVIL,MOTRIN) tablet/capsule 200 mg 200 mg, oral, 3 times daily, First dose (after last modification) on [facility] 07/22/23 at 1100, Do not crush, break, or open. Given 07/23/2023 8:48 AM CDT 200 mg Given 07/22/2023 9:23 PM CDT 200 mg Given 07/22/2023 5:35 PM CDT 200 mg ioversoL (OPTIRAY 350) syringe 100 mL 100 mL, intravenous, Once in imaging, contrast, Starting on [facility] 07/19/23 at 2006, For 1 dose Contrast Given 07/19/2023 8:08 PM CDT 100 mL lactulose 0.67 gram/mL oral solution 20 g 20 g, oral, Once, On [facility] 07/22/23 at 1015, For 1 dose Given [...] te acidophilus-pectin, citrus 100 million cell-10 mg capsuleIndications:[facility] Take 1 capsule by mouth every morning [...] subcutaneous, Daily (for enoxaparin), First dose on [facility] 07/19/23 at 2330, Indications: Deep Vein Thrombosis Prevention 2119 (Given - Provider: Hanny Henry RN) 2123 (Given - Provider: Hanny Henry RN) estradioL (ESTRACE) 0.01 % (0.1 mg/gram) vaginal cream 2 g 2 g, vaginal, 5 times weekly (Once per day on Sunday), First dose on [facility] [[email or web address]] 07/21/23 at 1800, For 14 days, Indications: [...] Indications: Pain 0527 (Given - Provider: Hanny Henry RN)1747 (Given - Provider: Tiana Lundberg RN) 1321 (Given - Provider: Araceli Dai RN) morphine injection 2 mg (CANCELED) 2 mg, intravenous, Administer over 4 Minutes, Every 4 hours PRN, severe pain, Starting on [facility] 07/19/23 at 2256, Indications: Pain 0410 (Given - Provider: Hanny Henry RN)0817 (Given - Provider: Tiana Lundberg RN)2119 (Given - Provider: Hanny Henry RN) naloxone (NARCAN) injection 0.4 mg 0.4 [...] 07/23/2023 documented in this encounter Care Teams Senior Consultant Relationship Specialty Start Date End Date Phan Garvin MD PCP - General Family Medicine 09/14/22 Phan Garvin MD Family Medicine 09/14/22 documented as of this encounter
--- OUTSIDE RECORDS SUMMARY | 2024-03-15 17:49 | XMS_ITS | Encounter Summary ---
Author Organization [facility] Address [address] [place] [address] Phone Care Team Providers Care Desk Pens Assembler Name Role Phone Phan Garvin MD Primary Care Provider [phone] Phan Garvin MD Unavailable [phone] Reason for Visit * Reason Onset Date Comments urology referral 07/13/2023 Encounter Details Date Type Department Care Team (Late st Contact Info) Description 07/13/2023 Telephone [facility] Obstetrics and Gynecology [address] [facility] [address] [place] [address] Maria Esther Brown, venetian blind maker referral Social History Tobacco Use Types Packs/Day [...] on file 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
--- OUTSIDE RECORDS SUMMARY | 2024-03-15 17:49 | XMS_ITS | Encounter Summary ---
Author Organization [facility] Healthcare Address [address] [place] [address] Care Team Providers Care Bottle Machine Operator Name Role Phone Phan Garvin MD Primary Care Provider [phone] Phan Garvin MD Unavailable [phone] Encounter Details Date Type Department Care Team (Latest Contact Info) Description 09/12/2023 12:54 PM CDT - 09/12/2023 11:59 PM CDT Hospital Encounter [address] [address] Dysuria Discharge Disposition: Discharge to home or self care Social History Tobacco Use Types Packs/Day Years Used Date Smoking Tobacco: Never Smokeless Tobacco: Never Alcohol Use Standard Drinks/Week Comments Yes 0 (1 standard drink = 0.6 oz pur e alcohol) [facility] Utilities Answer Date Recorded In the past 12 months has [employer], gas, oil, or water [employer] threatened to shut off services in your [...] often do you attend chur ch or pentecostalism services? 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 (.) Organism AEROCOCCUS SPECIES [facility] Organism PSEUDOMONAS AERUGINOSA [facility] Organism PLUS GROWTH OF CLINICALLY INSIGNIFICANT LU. [facility] Urine, in and out catheter 09/12/2023 1:48 PM CDT 09/12/2023 3:30 PM CDT Narrative [facility] - 09/15/2023 10:28 AM CDT Testing performed by [facility]biology [facility] ([phone]) Organism Antibiotic Method Susceptibility Pseudomonas aeruginosa Aztreonam INTERPRETATION Susceptible Pseudomonas aeruginosa Ceftazidime INTERPRETATION Susceptible Pseudomonas aeruginosa Ciprofloxacin INTERPRETATION Susceptible Pseudomonas aeruginosa Cefepime INTERPRETATION Susceptible Pseudomonas aeruginosa Amikacin INTERPRETATION Susceptible Pseudomonas aeruginosa Imipenem INTERPRETATION Susceptible Pseudomonas aeruginosa Meropenem INTERPRETATION Susceptible Pseudomonas aeruginosa Piperacillin/Tazobactam INTERPR ETATION Susceptible Pseudomonas aeruginosa Tobramycin INTERPRETATION Susceptible Poncho Melgar MD LAB MICROBIOLOGY - GENERAL ORDERABLES Final Result Performing Organization Address [facility] de Phone Number [facility] [place] [address] * (ABNORMAL) Urinalysis, microscopic only (09/12/2023 11:39 AM CDT) WBC, ur >50(A) 0 - 5 /HPF RBC, ur 6-10(A) 0 - 2 /HPF [facility] Epithelial cells, squamous, ur >50(A) 0 - 5 /HPF [facility] Comment:Suggestive of contam ination. Consider recollection by clean catch. Bacteria, ur 4+(A) [facility] Mucous, ur Present(A ) [facility] Urine 09/12/2023 11:3 9 AM CDT 09/12/2023 1:49 PM CDT Poncho Melgar MD LAB URINE ORDERABLES Final Result Performing Organization Address [facility] de Phone Number [facility] [place] [address] * (ABNORMAL) Urinalysis reflex to microscopic (09/12/2023 11:39 AM CDT) Color, ur Yellow Yellow Clarity, ur Turbid(A) Clear [facility] Specific gravity, ur 1.015 1.003 - 1.030 [facility] pH, urine 7.0 [facility] Comment: Interpretive Data ? Urine pH is affected by diet, medications, systemic acid-base disturbances, and renal tubular function. ??pH may affect urinary stone formation. ??For example, urine pH below 6.0 may help reduce the tendency for calcium phosphate stones and pH greater than 6.0 may reduce the tendency for uric acid stone formation. Source: [facility] [employer] Current Interpretive Data was last revised on [...] Reflex to microscopic UA will be performed. [facility] Urine 09/12/2023 11:3 9 AM CDT 09/12/2023 1:49 PM CDT us Poncho Melgar MD LAB URINE ORDERABLES Final Result [facility] [place] [address] documented in this encounter Visit Diagnoses Diagnosis Dysuria documented in this encounter Care Teams Bottle Machine Operator Relationship Specialty Start Date End Date Phan Garvin MD PCP - General Family Medicine 09/14/22 Phan Garvin MD Family Medicine 09/14/22 documented as of this encounter
--- OUTSIDE RECORDS SUMMARY | 2024-03-15 17:49 | XMS_ITS | Encounter Summary ---
Author Organization [facility] School of [facility] Address [address] [place] [address] Phone Care Team Providers Care Manager Product Name Role Phone Phan Garvin MD Primary Care Provider [phone] Phan Garvin MD Unavailable [phone] Encounter Details Date Type Department Care Team (Late st Contact Info) Description 07/17/2023 Orders Only 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 Final ??Specimen Source: ?? [...] O RDERABLES Final Result Performing Organization Address [facility]/ZIP Co de Phone Number [facility] [address] [place] [address] * REFLEXIVE URINE CULTURE (07/17/2023 1:09 PM CDT) Urine culture [facility] Comment:CULTURE INDICATED - RESULTS TO FOLLOW 07/17/2023 1:09 PM CDT 07/17/2023 1:11 PM CDT Donnie Chavis MD LAB MICROBIOLOGY - GENERAL O RDERABLES Final Result Performing Organization Address [facility] Co de Phone Number [facility] [address] [place] [address] * (ABNORMAL) Urinalysis reflex to microscopic and culture Urine, clean voided (07/17/2023 1:09 PM CDT) Color, ur YELLOW YELLOW [facility] Appearance, ur CLOUDY(A) CLEAR [facility] Specific gravity 1.010 1.001 - 1.035 [facility] pH, ur > OR = 9.0(A) 5.0 - 8.0 [facility] Glucose, ur NEGATIVE NEGATIVE [facility] Bilirubin, ur NEGATIVE NEGATIVE [facility] Ketones, ur NEGATIVE NEGATIVE [facility] Blood, ur 1+(A) NEGATIVE [facility] Protein, ur, quant 2+(A) NEGATIVE [facility] Nitrites, ur POSITIVE(A) NEGATIVE [facility] Leukocyte esterase, ur 3+(A) NEGATIVE [facility] WBC, ur > OR = 60(A) < OR = 5 /HPF [facility] RBC, ur 3-10(A) < OR = 2 /HPF [facility] Epithelial cells, squamous, ur 0-5 < OR = 5 /HPF [facility] Bacteria, ur, quant MANY(A) NONE SEEN /HPF [facility] Hyaline cast NONE SEEN NONE SEEN /LPF [facility] Note [facility] Comment: This urine was analyzed for the presence of WBC, RBC, bacteria, casts, and other formed elements. Only those elements seen were reported. Urine, clean voided 07/17/2023 1:09 PM CDT 07/17/2023 1:11 PM CDT Donnie Chavis MD LAB MICROBIOLOGY - GENERAL O RDERABLES Final Result [facility] [address] [place] [address] documented in this encounter Visit Diagnoses Diagnosis Recurrent UTI- Primary Urinary tract infection, site not specified documented in this encounter Care Teams Manager Product Relationship Specialty Start Date End Date Phan Garvin MD PCP - General Family Medicine 09/14/22 Phan Garvin MD Family Medicine 09/14/22 documented as of this encounter
--- OUTSIDE RECORDS SUMMARY | 2024-03-15 17:49 | XMS_ITS | Encounter Summary ---
Author Organization [facility] of [facility] Address [address] [place] [address] Phone Care Team Providers Care Claims Auditor Name Role Phone Phan Garvin MD Primary Care Provider [phone] Phan Garvin MD Unavailable [phone] Encounter Details Date Type Department Care Team (Latest Contact Info) Description 09/12/2023 11:00 AM CDT Procedure visit [facility] Obstetrics and Gynecology [address] [facility] Outpatient Health 7th Floor [address] [place] [address] Dysuria (Primary Dx) Social History Tobacco Use Types Packs/Day Years Used Date Smoking Tobacco: Never Smokeless Tobacco: Never Alcohol Use Standard Drinks/Week Comments Yes 0 (1 standard drink = 0.6 oz pur e alcohol) [facility] Utilities Answer Date Recorded In the past 12 months has [employer], gas, oil, or water [employer] threatened to shut off services in your [...] How often do you attend chur or religion services? Never 07/20/2023 Do you belong to [...] on file Legal Sex Female 7:11 PM E D TECH Gender Identity Not on file Sexual [...] results. Reviewed upper tract ED precautions. Discussed [facility] ED vs [facility] ED with patient and her friend. They will plan on going to [facility] ED for her pain and most [...] insignificant bacterial lu. (.) Organism AEROCOCCUS SPECIES [facility] Organism PSEUDOMONAS [facility]ER[facility]INOSA [facility] Organism PLUS GROWTH OF CLINICALLY INSIGNIFICANT LU. [facility] Urine, in and out catheter 09/12/2023 1:48 PM CDT 09/12/2023 3:30 PM CDT Narrative [facility] - 09/15/2023 10:28 AM CDT Testing performed by [facility] Microbiology Laboratory ([phone]) Organism Antibiotic Method Susceptibility Pseudomonas aeruginosa Aztreonam INTERPRETATION Susceptible Pseudomonas aeruginosa Ceftazidime INTERPRETATION Susceptible Pseudomonas aeruginosa Ciprofloxacin INTERPRETATION Susceptible Pseudomonas aeruginosa Cefepime INTERPRETATION Susceptible Pseudomonas aeruginosa Amikacin INTERPRETATION Susceptible Pseudomonas aeruginosa Imipenem INTERPRETATION Susceptible Pseudomonas aeruginosa Meropenem INTERPRETATION Susceptible Pseudomonas aeruginosa Piperacillin/Tazobactam INTERPR ETATION Susceptible Pseudomonas aeruginosa Tobramycin INTERPRETATION Susceptible Poncho Melgar MD LAB MICROBIOLOGY - GENERAL ORDERABLES Final Result [facility] Department [place] [address] * (ABNORMAL) Urinalysis reflex to microscopic (09/12/2023 [...] tendency for uric acid stone formation. Source: [facility] Current Interpretive Data was last revised on 2017 Protein, ur ql 3+(A) Negative [facility] Glucose, ur ql Negative Negative [facility] Ketones, ur Negative Negative [facility] Bilirubin, ur Negative Negative [facility] Blood, ur 2+(A) Negative [facility] Urobilinogen, ur >=8.0(A) <2.0 mg/dL [facility] Nitrite, ur Negative Negative [facility] Leukocyte esterase, ur 3+(A) Negative [facility] UA reflex comment Reflex to microscopic UA will be performed. [facility] Urine 09/12/2023 11:3 9 AM CDT 09/12/2023 1:49 PM CDT Poncho Melgar MD LAB URINE ORDERABLES Final Result [facility] Department [place] [address] documented in this encounter Visit Diagnoses Diagnosis Dysuria- Primary Dysuria documented in this encounter Care Teams Claims Auditor Relationship Specialty Start Date End Date Phan Garvin MD PCP - General Family Medicine 09/14/22 Phan Garvin MD Family Medicine 09/14/22 documented as of this encounter
--- OUTSIDE RECORDS SUMMARY | 2024-03-15 17:49 | XMS_ITS | Encounter Summary ---
Author Organization [facility] Address [address] [place] [address] Phone Care Team Providers Care Retail Receiving Clerk Name Role Phone Phan Garvin MD Primary Care Provider [phone] Phan Garvin MD Unavailable [phone] Encounter Details Date Type Department Care Team (Late st Contact Info) Description 07/12/2023 Telephone [facility] Infectious Diseases [address] [place] [address] [address] [place] [address] Marina Colunga, [facility] Social History Tobacco Use Types Packs/Day Years [...] on file 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 The contact number is [phone]. documented in this encounter Plan of Treatment Not on file documented as of this encounter Visit Diagnoses Not on filedocumented in this encounter Care Teams Retail Receiving Clerk Relationship Specialty Start Date End Date Phan Garvin MD PCP - General Family Medicine 09/14/22 Phan Garvin MD Family Medicine 09/14/22 documented as of this encounter
--- OUTSIDE RECORDS SUMMARY | 2024-03-15 17:49 | XMS_ITS | Encounter Summary ---
Author Organization [facility] Address [address] [place] [address] Care Team Providers Care Scaffold Setter Name Role Phone Phan Garvin MD Primary Care Provider [phone] Phan Garvin MD Unavailable [phone] Encounter Details Date Type Department Care Team (Late st Contact Info) Description 09/18/[address] [facility] Gastroenterology at [address] [place] [address] Rudy Hollis MD [address] [place] [address] Social History Tobacco Use Types Packs/Day Years Used Date Smoking Tobacco: Never Smokeless Tobacco: Never Alcohol Use Standard Drinks/Week Comments Yes 0 (1 standard drink = 0.6 oz pur e alcohol) [facility] Utilities Answer Date Recorded In the past 12 months has [employer], gas, oil, or water [employer] threatened to shut off services in your [...] week 07/20/2023 How often do you attend [facility] or orthodoxy services? 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
--- OUTSIDE RECORDS SUMMARY | 2024-03-15 17:50 | XMS_ITS | Encounter Summary ---
Author Organization [facility] Address [address] [place] [address] Phone Care Team Providers Care Schedule Announcer Name Role Phone Phan Garvin MD Primary Care Provider [phone] Phan Garvin MD Unavailable [phone] Encounter Details Date Type Department Care Team (Late st Contact Info) Description 05/14/2023 Telephone [facility] Obstetrics and Gynecology [address] [facility] Outpatient Health 7th Floor [address] [place] [address] Araceli Anderson RN Social History [...] on file Legal Sex Female 7:11 PM PRESIDENTIAL SUPPORT SPECIALIST Gender Identity Not on file Sexual Orientation Not on file 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 She has talked with ID and the next available date she can be seen is in August. Informed her that Dr. Chavis is a physician andshe already has a referral for UTIs. She will call them back to schedule. Faxed referral to number she provided. IDENTIAL SUPPORT SPECIALIST documented in this encounter Plan of Treatment Not on file documented as of this encounter Visit Diagnoses Not on filedocumented in this encounter Care Teams Schedule Announcer Relationship Specialty Start Date End Date Phan Garvin MD PCP - General Family Medicine 09/14/22 Phan Garvin MD Family Medicine 09/14/22 documented as of this encounter
--- OUTSIDE RECORDS SUMMARY | 2024-03-15 17:50 | XMS_ITS | Encounter Summary ---
Author Organization [facility] Address [address] [place] [address] Phone Care Team Providers Care Sound Controller Name Role Phone Phan Garvin MD Primary Care Provider [phone] Phan Garvin MD Unavailable [phone] Encounter Details Date Type Department Care Team (Late st Contact Info) Description 05/04/2023 Telephone [facility] Obstetrics and Gynecology [address] [facility] Outpatient Health 7th Floor [address] [place] [address] Araceli Anderson RN Social History [...] on file Legal Sex Female 7:11 PM ELIGIBILITY SPECIALIST Gender Identity Not on file Sexual Orientation Not on file 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 Coli UTI. She rescheduled her ultrasound because she will not be back on Sunday. IBILITY SPECIALIST documented in this encounter Plan of Treatment Not on file documented as of this encounter Visit Diagnoses Not on filedocumented in this encounter Care Teams Sound Controller Relationship Specialty Start Date End Date Phan Garvin MD PCP - General Family Medicine 09/14/22 Phan Garvin MD Family Medicine 09/14/22 documented as of this encounter
--- OUTSIDE RECORDS SUMMARY | 2024-03-15 17:50 | XMS_ITS | Encounter Summary ---
Author Organization [facility] Address [address] [place] [address] Phone Care Team Providers Care Welding Estimator Name Role Phone Phan Garvin MD Primary Care Provider [phone] Phan Garvin MD Unavailable [phone] Reason for Referral * Consultation (Routine) - Closed Specialty Diagnoses / Procedures Referred By Dacia tan Referred To Contact Urology Diagnoses Diverticulum of bladder Poncho Melgar MD [address] [place] [address] Phone: tel: fax: Philippe Ambriz MD [address] [facility] [address] [place] [address] Phone: tel: fax: Referral ID Status Reason Start Date Expiration Date V isits Requested Visits Authorized [id number] Closed Specialty Services Required 05/21/2023 06/19/2024 1 1 Question Answer Please select the performing region: [facility] (All Locations) [167] To provider: PHILIPPE AMBRIZ [[id number]] Comments Evaluation for surgical excision of bladder diverticulum. * Consultation (Routine) - Pending Review Specialty Diagnoses / Procedures Referred By Dacia tan Referred To Contact Physical Therapy Diagnoses Pelvic floor dysfunction in female Talia, Poncho Dandre, MD [address] [place] [address] Phone: tel: fax: [facility] (All Locations) Referral ID Status Reason Start Date Expiration Date Visits Requested Visits Authorized [id number] Pending Review Specialty Services Required 05/21/2023 06/19/2024 12 12 Question Answer PTRFR PT Evaluate and Treat Therapy options discussed with patient? Yes Location provided for therapy services is: Patient requested/Patient preferred Please select the performing region: [facility] (All Locations) [167] Comments [facility] [address] [place] (11) Reason for Visit * Reason Comments Post-op Encounter Details Date Type Department Care Team (Late st Contact Info) Description 05/21/2023 10:40 AM CDT Office Visit [facility] Obstetrics and Gynecology [address] [facility] 7th Floor [address] [place] [address] Poncho Melgar MD [address] [place] [address] Recurrent UTI (Primary Dx); Complicated UTI (urinary [...] on file Legal Sex Female 7:11 PM AUTO GARAGE ATTENDANT Gender Identity Not on file Sexual Orientation Not on file 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 NORM (only at HXQ=063 mls, cough) 3. DO at [employer] 4. [...] 4 added in this encounter Care Teams Welding Estimator Relationship Specialty Start Date End Date Phan Garvin MD PCP - General Family Medicine 09/14/22 Phan Garvin MD Family Medicine 09/14/22 documented as of this encounter
--- OUTSIDE RECORDS SUMMARY | 2024-03-15 17:50 | XMS_ITS | Encounter Summary ---
Author Organization [facility] Address [address] [place] [address] Phone Care Team Providers Care Bucket Chucker Name Role Phone Phan Garvin MD Primary Care Provider [phone] Phan Garvin MD Unavailable [phone] Reason for Visit * Reason Onset Date Comments UACX & cytology 04/16/2023 Encounter Details Date Type Department Care Team (Late st Contact Info) Description 04/16/2023 Telephone [facility] Obstetrics and Gynecology [facility] Health 7th Floor [address] [place] [address] Maria Esther Brown RN UACX [...] Legal Sex Female 7:11 PM DIRECTOR OF ADVERTISING SALES Gender Identity Not on file Sexual Orientation Not on file 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 CTOR OF ADVERTISING SALES documented in this encounter Plan of Treatment Not on file documented as of this encounter Visit Diagnoses Not on filedocumented in this encounter Care Teams Bucket Chucker Relationship Specialty Start Date End Date Phan Garvin MD PCP - General Family Medicine 09/14/22 Phan Garvin MD Family Medicine 09/14/22 documented as of this encounter
--- OUTSIDE RECORDS SUMMARY | 2024-03-15 17:50 | XMS_ITS | Encounter Summary ---
Author Organization [facility] Address [address] [place] [address] Phone Care Team Providers Care Shellfish Grower Name Role Phone Phan Garvin MD Primary Care Provider [phone] Phan Garvin MD Unavailable [phone] Encounter Details Date Type Department Care Team (Late st Contact Info) Description 04/16/2023 Telephone [facility] Obstetrics and Gynecology [address] 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 No other questionsat this time. ANICAL ENERGY ENGINEER * Telephone Encounter - Maria Esther Brown RN - 04/16/2023 2:14 PM CST ----- Message from Poncho Melgar MD sent at 04/16/2023 1:29 PM MECHANICAL ENERGY ENGINEER ----- Please notify pt of benign urine cytology report. ANICAL ENERGY ENGINEER documented in this encounter Plan of Treatment Not on file documented as of this encounter Visit Diagnoses Not on filedocumented in this encounter Care Teams Shellfish Grower Relationship Specialty Start Date End Date Phan Garvin MD PCP - General Family Medicine 09/14/22 Phan Garvin MD Family Medicine 09/14/22 documented as of this encounter
--- OUTSIDE RECORDS SUMMARY | 2024-03-15 17:50 | XMS_ITS | Encounter Summary ---
Author Organization [facility] Address [address] [place] [address] Phone Care Team Providers Care Animal Killer Name Role Phone Phan Garvin MD Primary Care Provider [phone] Phan Garvin MD Unavailable [phone] Reason for Referral * Consultation (Routine) - Authorized Specialty Diagnoses / Procedures Referred By Contac t Referred To Contact Infectious Diseases Diagnoses Recurrent UTI C. difficile diarrhea Poncho Melgar MD [address] [place] [address] Phone: tel: fax: [facility] (All Locations) Referral ID Status Reason Start Date Expiration Date Visits Requested Visits Authorized [id number] Authorized Specialty Services Required 05/14/2023 06/12/2024 6 6 Question Answer Please select the performing region: [facility] (All Locations) [167] # of visits: 1 E CEMENT MOULDER Encounter Details Date Type Department Care Team (Late st Contact Info) Description 05/14/2023 Orders Only [facility] Obstetrics and Gynecology [address] [facility] Health 7th Floor [address] [place] [address] Poncho Melgar MD [address] [place] [address] Recurrent UTI (Primary Dx); C. 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
--- OUTSIDE RECORDS SUMMARY | 2024-03-15 17:50 | XMS_ITS | Encounter Summary ---
Author Organization [facility] School [facility] Address [address] [place] [address] Phone Care Team Providers Care Ground Systems Engineer Name Role Phone Phan Garvin MD Primary Care Provider [phone] Phan Garvin MD Unavailable [phone] Reason for Visit * Reason Onset Date Comments UTI/C. Dif 04/30/2023 Encounter Details Date Type Department Care Team (Late st Contact Info) Description 04/30/2023 Telephone [facility] Obstetrics and Gynecology [facility] 7th Floor [address] [place] [address] Maria Esther Brown RN UTI/C. [...] on file Legal Sex Female 7:11 PM TIN CAN LABORER Gender Identity Not on file Sexual Orientation [...] put on amoxicillin and Vancomycin. Went to [place] ED lasts night because of low abdomen & low back pain spasms. CT scan, UA, blood work. She will request records to be faxed to our office. Patient does not return to [facility] Sat. CAN LABORER * Telephone Encounter - Maria Esther Brown RN - 04/30/2023 2:16 PM CST Pt left message that she was seen in [facility] for UTI & C. Dif. She is presently taking Amoxicillin and Flagyl. CAN LABORER documented in this encounter Plan of Treatment Not on file documented as of this encounter Visit Diagnoses Not on filedocumented in this encounter Care Teams Ground Systems Engineer Relationship Specialty Start Date End Date Phan Garvin MD PCP - General Family Medicine 09/14/22 Phan Garvin MD Family Medicine 09/14/22 documented as of this encounter
--- OUTSIDE RECORDS SUMMARY | 2024-03-15 17:50 | XMS_ITS | Encounter Summary ---
Author Organization [facility] Healthcare Address [address] [place] [address] Care Team Providers Care State Highway Police Officer Name Role Phone Phan Garvin MD Primary Care Provider [phone] Phan Garvin MD Unavailable [phone] Reason for Visit * Reason Comments Hospital Follow Up Following up from for A-Fib Atrial Fibrillation Fatigue Encounter Details Date Type Department Care Team (Late st Contact Info) Description 04/18/2023 10:00 AM OTR TANKER TRUCK DRIVER Office Visit [facility] Medical Group Cardiology at [address] [place] [address] Siddharth Jennings MD [address] [facility] [address] [place] [address] Paroxysmal atrial fibrillation (CMS/HCC) (HCC) [...] on file Legal Sex Female 7:11 PM OTR TANKER TRUCK DRIVER Gender Identity Not on file Sexual Orientation Not on file 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 Not on file Not on file Not on file documented as of this encounter Last Filed Vital Signs Vital Sign Reading Time Taken Comments Blood Pressure 132/76 04/18/2023 10:30 AM OTR TANKER TRUCK DRIVER Pulse 69 04/18/2023 10:30 AM OTR TANKER TRUCK DRIVER Temperature - - Respiratory Rate - - Oxygen Saturation 99% 04/18/2023 10: 30 AM OTR TANKER TRUCK DRIVER Inhaled Oxygen Concentration - - Weight 73.8 kg (162 lb 11.2 oz) 024 10:30 AM OTR TANKER TRUCK DRIVER Height 160 cm (5' 3 ) 04/18/2023 10:30 AM OTR TANKER TRUCK DRIVER Body Mass Index 28.82 04/18/2023 10:30 AM OTR TANKER TRUCK DRIVER documented in this encounter Progress Notes * Siddharth Jennings MD - 04/18/2023 10:00 AM CST [facility] FOLLOW UP 04/18/2023 Maria A Peralta is a 82 y.o. female who presents for follow up of atrial fibrillation. This lizz patient that I saw in consultation at [facility] in February of 2022 when she [...] metoprolol. She came to the hospital at [place] in the end of February shortly after [...] symptom and is seeing a urologist at [facility] now forevaluation of this. She feels very [...] HOURS, Disp: 60 tablet, Rfl: 5 vit C,K-Li-ztian-lutein-zeaxan (PreserVision AREDS-2) 250-90-40-1 mg capsule, Take 1 [...] ambulance when this happens Siddharth Jennings MD TANKER TRUCK DRIVER documented in this encounter Miscellaneous Notes * Addendum Note - Daniella Sousa MA - 04/18/2023 10:00 AM CSTAddended by: DANIELLA SOUSA on: 04/30/2023 12:50 PM Modules accepted: Orders TANKER TRUCK DRIVER documented in this encounter Plan [...] 11/27/2023 added in this encounter Care Teams State Highway Police Officer Relationship Specialty Start Date End Date Phan Garvin MD PCP - General Family Medicine 09/14/22 Phan Garvin MD Family Medicine 09/14/22 documented as of this encounter
--- OUTSIDE RECORDS SUMMARY | 2024-03-15 17:50 | XMS_ITS | Encounter Summary ---
Author Organization [facility] Address [address] [place] [address] Phone Care Team Providers Care Computer Hardware Technician Name Role Phone Phan Garvin MD Primary Care Provider [phone] Phan Garvin MD Unavailable [phone] Encounter Details Date Type Department Care Team (Late st Contact Info) Description 05/22/2023 Orders Only [facility] Infectious Diseases [address] [place] [address] [address] [place] [address] Donnie Chavis MD [address] [facility] [address] [place] [address] Social History Tobacco Use Types Packs/Day Years [...] on file Legal Sex Female 7:11 PM TECHNOLOGY ENGINEER Gender Identity Not on file Sexual [...] on filedocumented in this encounter Care Teams Computer Hardware Technician Relationship Specialty Start Date End Date Phan Garvin MD PCP - General Family Medicine 09/14/22 Phan Garvin MD Family Medicine 09/14/22 documented as of this encounter
--- OUTSIDE RECORDS SUMMARY | 2024-03-15 17:50 | XMS_ITS | Encounter Summary ---
Author Organization [facility] School of [facility] Address [address] [place] [address] Phone Care Team Providers Care Hydrographic Surveyor Name Role Phone Phan Garvin MD Primary Care Provider [phone] Phan Garvin MD Unavailable [phone] Encounter Details Date Type Department Care Team (Late st Contact Info) Description 05/15/2023 Telephone [facility] Infectious Diseases [address] [place] [address] [address] [place] [address] Marina Colunga, [facility] Social History Tobacco Use Types Packs/Day Years [...] on file Legal Sex Female 7:11 PM FIG WASHER Gender Identity Not on file Sexual Orientation Not on file 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 The patient called this morning, asking to be seen soon as possible. WASHER documented in this encounter Plan of Treatment Not on file documented as of this encounter Visit Diagnoses Not on filedocumented in this encounter Care Teams Hydrographic Surveyor Relationship Specialty Start Date End Date Phan Garvin MD PCP - General Family Medicine 09/14/22 Phan Garvin MD Family Medicine 09/14/22 documented as of this encounter
--- OUTSIDE RECORDS SUMMARY | 2024-03-15 17:50 | XMS_ITS | Encounter Summary ---
Author Organization [facility] Address [address] [place] [address] Phone Care Team Providers Care Commercial Escrow Assistant Name Role Phone Phan Garvin MD Primary Care Provider [phone] Phan Garvin MD Unavailable [phone] Reason for Visit * Reason Onset Date Comments Infections 05/07/2023 Encounter Details Date Type Department Care Team (Late st Contact Info) Description 05/07/2023 Telephone 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 She reports she was told she has cystitis and c. Diff. She has been prescribed vancomycin for the c.Diff infection. She states she was told by the doctor at the hospital in [place] that the antibiotics she has been taking for UTIs are going to kill her and she needs to have urine cultures done only by straight cath. Shestates she was told to see an infection specialist at [facility] but they do not accept her insurance. She asked if she needs to keep her ultrasound appointment since she had a CT done at the hospital? Advised her to keep her transvaginal US appt. LE TAILOR documented in this encounter Plan of Treatment Not on file documented as of this encounter Visit Diagnoses Not on filedocumented in this encounter Care Teams Commercial Escrow Assistant Relationship Specialty Start Date End Date Phan Garvin MD PCP - General Family Medicine 09/14/22 Phan Garvin MD Family Medicine 09/14/22 documented as of this encounter
--- OUTSIDE RECORDS SUMMARY | 2024-03-15 17:50 | XMS_ITS | Encounter Summary ---
Author Organization [facility] School of [facility] Address [address] [place] [address] Phone Care Team Providers Care Vehicle Assembler Name Role Phone Phan Garvin MD Primary Care Provider [phone] Phan Garvin MD Unavailable [phone] Encounter Details Date Type Department Care Team (Late st Contact Info) Description 07/05/2023 Orders Only [facility] Infectious Diseases [address] [place] [address] [address] [place] [address] Donnie Chavis MD [address] [facility] [address] [place] [address] Social History Tobacco Use Types Packs/Day Years [...] on file Legal Sex Female 7:11 PM REMEDIAL PROJECT MANAGER Gender Identity Not on file Sexual Orientation Not on file 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
--- OUTSIDE RECORDS SUMMARY | 2024-03-15 17:50 | XMS_ITS | Encounter Summary ---
Author Organization [facility] Healthcare Address [address] [place] [address] Care Team Providers Care Sound Tester Name Role Phone Phan Garvin MD Primary Care Provider [phone] Phan Garvin MD Unavailable [phone] Encounter Details Date Type Department Care Team (Late st Contact Info) Description 04/26/2023 Telephone [facility] Medical Group Cardiology [address] [place] [address] Siddharth Jennings MD [address] [facility] [address] [place] [address] Social History Tobacco Use Types [...] on file Legal Sex Female 7:11 PM NURSE HEALTHCARE MANAGER Gender Identity Not on file Sexual Orientation Not on file 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 E HEALTHCARE MANAGER * Telephone Encounter - Lisha King RN - 04/27/2023 8:38 AM NURSE HEALTHCARE MANAGER Spoke with pt, she is wondering if ok to temporarily hold her aspirin due to hematuria. Pt states [facility] has her on aspirin for a-fib after she did not tolerate eliquis. Will forward to [facility]. Please advise. E HEALTHCARE MANAGER * Telephone Encounter - Tami Aaron - 04/26/2023 3:18 PM CST Pt states she is currently in [place] and yesterday and today she noticed a light red blood in her urine. States she called her OBGYN and was instructed to contact key punch operator in regard to continuing or discontinuing Aspirin. Please advise, thank you. Contact: E HEALTHCARE MANAGER documented in this encounter Plan of Treatment Not on file documented as of this encounter Visit Diagnoses Not on filedocumented in this encounter Care Teams Sound Tester Relationship Specialty Start Date End Date Phan Garvin MD PCP - General Family Medicine 09/14/22 Phan Garvin MD Family Medicine 09/14/22 documented as of this encounter
--- OUTSIDE RECORDS SUMMARY | 2024-03-15 17:50 | XMS_ITS | Encounter Summary ---
Author Organization [facility] Address [address] [place] [address] Phone Care Team Providers Care Grey Roll Man Name Role Phone Phan Garvin MD Primary Care Provider [phone] Phan Garvin MD Unavailable [phone] Encounter Details Date Type Department Care Team (Late st Contact Info) Description 06/07/[address] [facility] Infectious Diseases [address] [place] [address] [address] [place] [address] Zari Thomas BS Social History [...] on file Legal Sex Female 7:11 PM RECEIVING ASSOCIATE STORE Gender Identity Not on file Sexual Orientation [...] levothyroxine per their instructions. Patient contact @ [phone] documented in this encounter Plan of Treatment Not on file documented as of this encounter Visit Diagnoses Not on filedocumented in this encounter Care Teams Grey Roll Man Relationship Specialty Start Date End Date Phan Garvin MD PCP - General Family Medicine 09/14/22 Phan Garvin MD Family Medicine 09/14/22 documented as of this encounter
--- OUTSIDE RECORDS SUMMARY | 2024-03-15 17:50 | XMS_ITS | Encounter Summary ---
Author Organization [facility] of [facility] Address [address] [place] [address] Phone Care Team Providers Care Supervisor Plastering Name Role Phone Phan Garvin MD Primary Care Provider [phone] Phan Garvin MD Unavailable [phone] Encounter Details Date Type Department Care Team (Late st Contact Info) Description 04/20/2023 Telephone [facility] Obstetrics and Gynecology [address] [facility] Outpatient Health 7th Floor [address] [place] [address] Araceli Anderson RN Social History [...] on file Legal Sex Female 7:11 PM RESIDENTIAL PROPERTY CONSULTANT Gender Identity Not on file Sexual Orientation Not on file 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 Patient to call PCP if she continues to have bowel issues. DENTIAL PROPERTY CONSULTANT * Telephone Encounter - Maria Esther Brown RN - 04/20/2023 11:26 AM RESIDENTIAL PROPERTY CONSULTANT Received call from patient reporting having BM's with each urination today and wanting to know if this is normal? BM's are normal consistency. She wanted to know if she needed to change her diet. Discussed having a regular diet and to contactPCP for bowel issues. DENTIAL PROPERTY CONSULTANT * Telephone Encounter - Araceli Anderson RN - 04/20/2023 8:23 AM RESIDENTIAL PROPERTY CONSULTANT Patient reports she is saturating a pad [...] up with Dr. Melgar is on 06/04. DENTIAL PROPERTY CONSULTANT documented in this encounter Plan of Treatment Not on file documented as of this encounter Visit Diagnoses Not on filedocumented in this encounter Care Teams Supervisor Plastering Relationship Specialty Start Date End Date Phan Garvin MD PCP - General Family Medicine 09/14/22 Phan Garvin MD Family Medicine 09/14/22 documented as of this encounter
--- OUTSIDE RECORDS SUMMARY | 2024-03-15 17:50 | XMS_ITS | Encounter Summary ---
Author Organization [facility] School of [facility] Address [address] [place] [address] Phone Care Team Providers Care Software Engineer Web Services Name Role Phone Phan Garvin MD Primary Care Provider [phone] Phan Garvin MD Unavailable [phone] Encounter Details Date Type Department Care Team (Late st Contact Info) Description 04/14/2023 Telephone [facility] Obstetrics and Gynecology [address] [facility] [address] [place] [address] Karla Lorenzo MD [address] [facility] [address] [place] [address] Social History Tobacco Use Types [...] file Legal Sex Female 7:11 PM ANIMAL PATHOLOGIST Gender Identity Not on file Sexual Orientation Not on file 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 Patient will call and schedule appt. AL PATHOLOGIST * Telephone Encounter - Maria Esther Brown RN - 04/16/2023 9:41 AM CST Call received from [facility] 6 day cystoscopy w/biopsies & fulguration. Patient spoke with Dr. Lorenzo this weekend regarding cough. Patient reports that her cough is much better. C/o sinus issues. She is asking if ok to see chiropractor? Her next MD appt is with professional builder on 04/18/23. AL PATHOLOGIST * Telephone Encounter - Karla Lorenzo MD - 04/14/2023 11:43 AM ANIMAL PATHOLOGIST She calls in today to ask about [...] to call back ifshe has further concerns/questions. AL PATHOLOGIST documented in this encounter Plan of Treatment Not on file documented as of this encounter Visit Diagnoses Not on filedocumented in this encounter Care Teams Software Engineer Web Services Relationship Specialty Start Date End Date Phan Garvin MD PCP - General Family Medicine 09/14/22 Phan Garvin MD Family Medicine 09/14/22 documented as of this encounter
--- OUTSIDE RECORDS SUMMARY | 2024-03-15 17:50 | XMS_ITS | Encounter Summary ---
Author Organization [facility] Healthcare Address [address] [place] [address] Care Team Providers Care Bench Machine Operator Name Role Phone Phan Garvin MD Primary Care Provider [phone] Phan Garvin MD Unavailable [phone] Reason for Referral * Diagnostic Imaging (Routine) - Closed Specialty Diagnoses / Procedures Referred By Contac t Referred To Contact Diagnoses Pelvic mass Procedures US Transvaginal Poncho Melgar MD [address] [address] Phone: tel: fax: [facility] (All Locations) Referral ID Status Reason Start Date Expiration Date Visits Re quested Visits Authorized [id number] Closed 04/12/2023 05/11/2024 1 1 EXTINGUISHER INSTALLER Reason for Visit * Diagnostic Imaging (Routine) - Closed Specialty Diagnoses / Procedures Referred By Contac t Referred To Contact Diagnoses Pelvic mass Procedures US Transvaginal Poncho Melgar MD [address] [place] [address] Phone: tel: fax: [facility] (All Locations) Referral ID Status Reason Start Date Expiration Date Visits Re quested Visits Authorized [id number] Closed 04/12/2023 05/11/2024 1 1 Encounter Details Date Type Department Care Team (Latest Contact Info) Description 05/10/2023 9:39 AM FIRE EXTINGUISHER INSTALLER - 05/10/2023 11:59 PM FIRE EXTINGUISHER INSTALLER Hospital Encounter [facility] for Out[facility] - Ultrasound [address] [facility], 7th Floor, [address] [place] [address] Pelvic mass Discharge Disposition: Discharge to home [...] on file Legal Sex Female 7:11 PM FIRE EXTINGUISHER INSTALLER Gender Identity Not on file Sexual Orientation Not on file 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 Not on file [...] rosuvastatin (CRESTOR) 10 mg tablet 09/24/2019 vit C,G-Rw-nqwdp-lute in-zeaxan (PreserVision AREDS-2) 250-90-40-1 mg capsuleIndication s:eye [...] Read Routine (OP Routine) 05/10/2023 9:39 AM FIRE EXTINGUISHER INSTALLER Pelvic mass documented in this encounter Results * US Transvaginal (05/10/2023 9:39 AM FIRE EXTINGUISHER INSTALLER) Cul de Sac No free fluid visualized VIEWPOINT Anatomical Region Laterality Modality Pelvis N/A Ultrasound 05/10/2023 9:40 AM FIRE EXTINGUISHER INSTALLER Impressions 05/10/2023 3:29 PM FIRE EXTINGUISHER INSTALLER 1- Surgically absent uterus.2- Non-visualization of either [...] site documented in this encounter Care Teams Bench Machine Operator Relationship Specialty Start Date End Date Phan Garvin MD PCP - General Family Medicine 09/14/22 Phan Garvin MD Family Medicine 09/14/22 documented as of this encounter
--- OUTSIDE RECORDS SUMMARY | 2024-03-15 17:50 | XMS_ITS | Encounter Summary ---
Author Organization [facility] of [facility] Address [address] [place] [address] Phone Care Team Providers Care Supervisor Sewing Room Name Role Phone Phan Garvin MD Primary Care Provider [phone] Phan Garvin MD Unavailable [phone] Encounter Details Date Type Department Care Team (Late st Contact Info) Description 06/25/2023 Orders Only [facility] Infectious Diseases [address] [place] [address] [address] [place] [address] Donnie Chavis MD [address] [facility] [address] [place] [address] Diarrhea of presumed infectious origin (Primary Dx) [...] on file Legal Sex Female 7:11 PM COFFEE MACHINE TECHNICIAN Gender Identity Not on file Sexual [...] CDT) C difficile Toxins/GDH w/refl to PCR [facility] Comment: ??CLOSTRIDIUM DIFFICILE TOXIN/GDH W/REFL TO PCR ?Micro Number: ?[id number] ??Test Status: ? Final ??Specimen Source: ?? Stool ??Specimen Quality: ??Adequate ??GDH Antigen: ? Not Detected ??Toxin A and B: ? Not Detected ??COMMENT: ? No toxigenic C. difficile detected ? For additional information, please refer to ? http://education.[employer] 911/faq/OGK994 ? (This link is being provided for ? informational/educational purposes only.) Stool 06/27/2023 10:0 3 AM CDT 06/28/2023 3:18 AM CDT Narrative [facility] - 06/28/2023 10:23 AM CDT FASTING:NO FASTING: NO us Donnie Chavis MD LAB MICROBIOLOGY - GENERAL O RDERABLES Final Result [facility] [address] [place] [address] documented in this encounter Visit Diagnoses Diagnosis Diarrhea of presumed infectious origin- Primary documented in this encounter Care Teams Supervisor Sewing Room Relationship Specialty Start Date End Date Phan Garvin MD PCP - General Family Medicine 09/14/22 Phan Garvin MD Family Medicine 09/14/22 documented as of this encounter
--- OUTSIDE RECORDS SUMMARY | 2024-03-15 17:50 | XMS_ITS | Encounter Summary ---
Author Organization [facility] of [facility] Address [address] [place] [address] Phone Care Team Providers Care Stage Driver Name Role Phone Phan Garvin MD Primary Care Provider [phone] Phan Garvin MD Unavailable [phone] Encounter Details Date Type Department Care Team (Late st Contact Info) Description 04/17/2023 Telephone [facility] Obstetrics and Gynecology [address] [facility] Outpatient Health 7th Floor [address] [place] [address] Maria Esther Brown, RN Social [...] on file Legal Sex Female 7:11 PM WELL PULLER HEAD Gender Identity Not on file Sexual Orientation Not on file 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 will continue on Keflex BID PULLER HEAD documented in this encounter Plan of Treatment Not on file documented as of this encounter Visit Diagnoses Not on filedocumented in this encounter Care Teams Stage Driver Relationship Specialty Start Date End Date Phan Garvin MD PCP - General Family Medicine 09/14/22 Phan Garvin MD Family Medicine 09/14/22 documented as of this encounter
--- OUTSIDE RECORDS SUMMARY | 2024-03-15 17:50 | XMS_ITS | Encounter Summary ---
Author Organization [facility] Address [address] [place] [address] Phone Care Team Providers Care Clinical Trial Associate Name Role Phone Phan Garvin MD Primary Care Provider [phone] Phan Garvin MD Unavailable [phone] Encounter Details Date Type Department Care Team (Late st Contact Info) Description 05/09/[address] 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
--- OUTSIDE RECORDS SUMMARY | 2024-03-15 17:50 | XMS_ITS | Encounter Summary ---
Author Organization [facility] of [facility] Address [address] [place] [address] Phone Care Team Providers Care Curb Attendant Name Role Phone Phan Garvin MD Primary Care Provider [phone] Phan Garvin MD Unavailable [phone] Encounter Details Date Type Department Care Team (Late st Contact Info) Description 05/23/2023 Telephone [facility] Obstetrics and Gynecology [address] 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 Order sent today. documented in this encounter Plan of Treatment Not on file documented as of this encounter Visit Diagnoses Not on filedocumented in this encounter Care Teams Curb Attendant Relationship Specialty Start Date End Date Phan Garvin MD PCP - General Family Medicine 09/14/22 Phan Garvin MD Family Medicine 09/14/22 documented as of this encounter
--- OUTSIDE RECORDS SUMMARY | 2024-03-15 17:50 | XMS_ITS | Encounter Summary ---
Author Organization [facility] Address [address] [place] [address] Phone Care Team Providers Care Inclusion Internship Name Role Phone Phan Garvin MD Primary Care Provider [phone] Phan Garvin MD Unavailable [phone] Encounter Details Date Type Department Care Team (Late st Contact Info) Description 06/22/2023 Telephone [facility] Infectious Diseases [address] [place] [address] [address] [place] [address] Grace Mallory, JOHN Social History [...] on file Legal Sex Female 7:11 PM CARDIOVASCULAR SURGICAL TECH Gender Identity Not on file Sexual Orientation Not on file 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 Chavis. Patient aware and will submit sample today or tomorrow. Provided location and hours for [facility] in [place], [place]. * Telephone Encounter - Judit Sanchez [...] on filedocumented in this encounter Care Teams Inclusion Internship Relationship Specialty Start Date End Date Phan Garvin MD PCP - General Family Medicine 09/14/22 Phan Garvin MD Family Medicine 09/14/22 documented as of this encounter
--- OUTSIDE RECORDS SUMMARY | 2024-03-15 17:50 | XMS_ITS | Encounter Summary ---
Author Organization [facility] Address [address] [place] [address] Phone Care Team Providers Care Offal Baler Name Role Phone Phan Garvin MD Primary Care Provider [phone] Phan Garvin MD Unavailable [phone] Reason for Visit * Reason Onset Date Comments Rx Counseling 05/24/2023 Encounter Details Date Type Department Care Team (Late st Contact Info) Description 05/24/2023 Telephone [facility] Infectious Diseases [address] [place] [address] Hari Dixon RPh Rx Counseling Social [...] on file Legal Sex Female 7:11 PM SHOP LEAD Gender Identity Not on file Sexual Orientation Not on file 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 Faxed application/prescription to [facility] for Vow[facility] 4 capsules by mouth once a day for 3 days along with bottle of mag cit. Patient voiced understanding. documented in this encounter Plan of Treatment Not on file documented as of this encounter Visit Diagnoses Not on filedocumented in this encounter Care Teams Offal Baler Relationship Specialty Start Date End Date Phan Garvin MD PCP - General Family Medicine 09/14/22 Phan Garvin MD Family Medicine 09/14/22 documented as of this encounter
--- OUTSIDE RECORDS SUMMARY | 2024-03-15 17:50 | XMS_ITS | Encounter Summary ---
Author Organization [facility] Address [address] [place] [address] Phone Care Team Providers Care Medical Supply Technician Name Role Phone Phan Garvin MD Primary Care Provider [phone] Phan Garvin MD Unavailable [phone] Encounter Details Date Type Department Care Team (Late st Contact Info) Description 06/22/2023 Orders Only [facility] Infectious Diseases [address] [place] [address] [address] [place] [address] Donnie Chavis MD [address] [facility] [address] [place] [address] Diarrhea of presumed infectious origin (Primary Dx) [...] on file Legal Sex Female 7:11 PM FLIGHT KITCHEN MANAGER Gender Identity Not on file Sexual Orientation Not on file 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 06/23/2023 9:06 AM CDT 06/24/2023 6:14 PM CDT Narrative [facility] - 06/25/2023 10:21 AM CDT FASTING:NO FASTING: NO us Donnie Chavis MD LAB BLOOD ORDERABLES Final R esult [facility] [address] [place] [address] * Clostridium difficile Toxin/GDH with Reflex to PCR Stool (06/23/2023 9:06 AM CDT) C difficile Toxins/GDH w/refl to PCR [facility] Comment: ??CLOSTRIDIUM DIFFICILE TOXIN/GDH W/REFL TO PCR ?Micro Number: ?[id number] ??Test Status: ? Final ??Specimen Source: ?? Stool ??Specimen Quality: ??Inadequate ??GDH Antigen: ? Test not performed. Specimen received at ? room temperature. ??Toxin A and B: ? Test not performed. ? For additional information, please refer to ? [email or web address] ? (This link is being provided for ? informational/educational purposes only.) Stool 06/23/2023 9:06 AM CDT 06/24/2023 6:14 PM CDT [facility] - 06/25/2023 10:21 AM CDT FASTING:NO FASTING: NO us Donnie Chavis MD LAB MICROBIOLOGY - GENERAL O RDERABLES Final Result [facility] [address] [place] [address] documented in this encounter Visit Diagnoses Diagnosis Diarrhea of presumed infectious origin- Primary documented in this encounter Care Teams Medical Supply Technician Relationship Specialty Start Date End Date Phan Garvin MD PCP - General Family Medicine 09/14/22 Phan Garvin MD Family Medicine 09/14/22 documented as of this encounter
--- OUTSIDE RECORDS SUMMARY | 2024-03-15 17:50 | XMS_ITS | Encounter Summary ---
Author Organization [facility] Address [address] [place] [address] Phone Care Team Providers Care Diesel Engine Pipe Fitter Name Role Phone Phan Garvin MD Primary Care Provider [phone] Phan Garvin MD Unavailable [phone] Encounter Details Date Type Department Care Team (Latest Contact Info) Description 05/10/2023 11:00 AM STRETCHER LEVELER OPERATOR Procedure visit [facility] Obstetrics and Gynecology 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 The patient was then instructed to order picker/assembler the sterile catheter and use sterile lubricant on the tip. The patient was unable to successfully demonstrate self catheterization with urine return. She would like to see Dr. Melgar sooner than her 06/04 appointment. Supplies and written instructions were sent home with the patient. Time spent with patient: 30 minutes TCHER LEVELER OPERATOR documented in this encounter Plan of Treatment Not on file documented as of this encounter Visit Diagnoses Diagnosis Recurrent UTI- Primary Urinary tract infection, site not specified documented in this encounter Care Teams Diesel Engine Pipe Fitter Relationship Specialty Start Date End Date Phan Garvin MD PCP - General Family Medicine 09/14/22 Phan Garvin MD Family Medicine 09/14/22 documented as of this encounter
--- OUTSIDE RECORDS SUMMARY | 2024-03-15 17:50 | XMS_ITS | Encounter Summary ---
Author Organization [facility] Address [address] [place] [address] Phone Care Team Providers Care Solutions Development Analyst Name Role Phone Phan Garvin MD Primary Care Provider [phone] Phan Garvin MD Unavailable [phone] Encounter Details Date Type Department Care Team (Late st Contact Info) Description 05/01/2023 Telephone [facility] Obstetrics and Gynecology [address] [facility] Outpatient Health 7th Floor [address] [place] [address] Maria Esther Brown, RN Social [...] on file Legal Sex Female 7:11 PM FLUME TENDER Gender Identity Not on file Sexual Orientation Not on file 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 Patient remains in [place] presently. Explained that we could email her a release of information form for her to sign and return but patient did not feel up to this . Offered to transfer her to medical director/head team physician who could get the release of information form to her. Declined. Discussed having her go to Medical Records in [place] & signing release form there. E TENDER documented in this encounter Plan of Treatment Not on file documented as of this encounter Visit Diagnoses Not on filedocumented in this encounter Care Teams Solutions Development Analyst Relationship Specialty Start Date End Date Pahn Garvin MD PCP - General Family Medicine 09/14/22 Phan Garvin MD Family Medicine 09/14/22 documented as of this encounter
--- OUTSIDE RECORDS SUMMARY | 2024-03-15 17:50 | XMS_ITS | Encounter Summary ---
Author Organization [facility] School of [facility] Address [address] [place] [address] Phone Care Team Providers Care Corporate Travel Consultant Name Role Phone Phan Garvin MD Primary Care Provider [phone] Phan Garvin MD Unavailable [phone] Encounter Details Date Type Department Care Team (Late st Contact Info) Description 07/02/2023 Orders Only [facility] Infectious Diseases [address] [place] [address] [address] [place] [address] Donnie Chavis MD [address] [facility] [address] [place] [address] Recurrent UTI (Primary Dx) Social History Tobacco [...] on file Legal Sex Female 7:11 PM 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 Gender Identity Not on file Sexual Orientation [...] AM CDT) Color, ur DARK YELLOW YELLOW [facility] Appearance, ur TURBID(A) CLEAR [facility] Specific gravity 1.015 1.001 - 1.035 [facility] pH, ur 6.0 5.0 - 8.0 [facility] Glucose, ur NEGATIVE NEGATIVE [facility] Bilirubin, ur NEGATIVE NEGATIVE [facility] Ketones, ur NEGATIVE NEGATIVE [facility] Blood, ur 3+(A) NEGATIVE [facility] Protein, ur, quant 2+(A) NEGATIVE [employer] [facility] Nitrites, ur POSITIVE(A) NEGATIVE [facility] Leukocyte esterase, ur 3+(A) NEGATIVE [facility] WBC, ur PACKED(A) < OR = 5 /HPF [facility] RBC, ur > OR = 60(A) < OR = 2 /HPF [facility] Epithelial cells, squamous, ur 10-20(A) < OR = 5 /HPF [facility] Bacteria, ur, quant MANY(A) NONE SEEN /HPF [facility] Hyaline cast NONE SEEN NONE SEEN /LPF [facility] Note [facility] Comment: This urine was analyzed for the presence of WBC, RBC, bacteria, casts, and other formed elements. Only those elements seen were reported. 07/03/2023 8:48 AM CDT 07/03/2023 8:50 AM CDT [facility] - 07/05/2023 10:34 AM CDT FASTING:NO FASTING: NO Donnie Chavis MD LAB URINE ORDERABLES Final R [facility] [address] [place] [address] * (ABNORMAL) Urine culture Urine, clean voided (07/03/2023 8:48 AM CDT) Urine culture (A) [facility] Comment: ??CULTURE, URINE, ROUTINE ?Micro Number: ?[id number] ??Test Status: ? Final ??Specimen Source: ?? [...] GENERAL O DURAN Final Result [facility] [address] [place] [address] documented in this encounter Visit Diagnoses Diagnosis Recurrent UTI- Primary Urinary tract infection, site not specified documented in this encounter Care Teams Corporate Travel Consultant Relationship Specialty Start Date End Date Phan Garvin MD PCP - General Family Medicine 09/14/22 Phan Garvin MD Family Medicine 09/14/22 documented as of this encounter
--- OUTSIDE RECORDS SUMMARY | 2024-03-15 17:50 | XMS_ITS | Encounter Summary ---
Author Organization [facility] of [facility] Address [address] [place] [address] Phone Care Team Providers Care Inbound Telemarketer Name Role Phone Phan Garvin MD Primary Care Provider [phone] Phan Garvin MD Unavailable [phone] Encounter Details Date Type Department Care Team (Late st Contact Info) Description 07/02/2023 Telephone [facility] Infectious Diseases [address] [place] [address] [address] [place] [address] Marina Colunga, [facility] Social History Tobacco Use Types [...] on file Legal Sex Female 7:11 PM DELIVERY NURSE Gender Identity Not on file Sexual Orientation Not on file 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 [...] nurse call in labs for her at [address], like she has done before. For questions, please call the patient at [phone] documented in this encounter Plan of Treatment Not on file documented as of this encounter Visit Diagnoses Not on filedocumented in this encounter Care Teams Inbound Telemarketer Relationship Specialty Start Date End Date Phan Garvin MD PCP - General Family Medicine 09/14/22 Phan Garvin MD Family Medicine 09/14/22 documented as of this encounter
--- OUTSIDE RECORDS SUMMARY | 2024-03-15 17:50 | XMS_ITS | Encounter Summary ---
Author Organization [facility] Address [address] [place] [address] Care Team Providers Care International Specialist Name Role Phone Phan Garvin MD Primary Care Provider [phone] Phan Garvin MD Unavailable [phone] Encounter Details Date Type Department Care Team (Late st Contact Info) Description 05/07/2023 Telephone [facility] Cardiology [address] [place] [address] Siddharth Jennings MD [address] [facility] [address] [place] [address] Social History Tobacco Use Types [...] on file Legal Sex Female 7:11 PM SMT MACHINE OPERATOR Gender Identity Not on file Sexual Orientation Not on file 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 Pt verbalized understanding. MACHINE OPERATOR * Telephone Encounter - Virginia Frias - 05/07/2023 11:08 AM SMT MACHINE OPERATOR Patient is being treated at a [facility] for an E. Coli. She's currently receiving an injection in her belly to prevent blood clots. Pt is not sure the name of the medication. Pt wants to know if she need to go back on the baby aspirin Cb [phone] LVM if she doesn't answer MACHINE OPERATOR documented in this encounter Plan of Treatment Not on file documented as of this encounter Visit Diagnoses Not on filedocumented in this encounter Care Teams International Specialist Relationship Specialty Start Date End Date Phan Garvin MD PCP - General Family Medicine 09/14/22 Phan Garvin MD Family Medicine 09/14/22 documented as of this encounter
--- OUTSIDE RECORDS SUMMARY | 2024-03-15 17:50 | XMS_ITS | Encounter Summary ---
Author Organization [facility] Address [address] [place] [address] Phone Care Team Providers Care French Polisher Name Role Phone Phan Garvin MD Primary Care Provider [phone] Phan Garvin MD Unavailable [phone] Encounter Details Date Type Department Care Team (Late st Contact Info) Description 06/21/2023 Telephone [facility] Infectious Diseases [address] [place] [address] [address] [place] [address] Tessa Diaz, [facility] Social History Tobacco Use Types Packs/Day [...] on file Legal Sex Female 7:11 PM RENOVATOR MACHINE OPERATOR Gender Identity Not on file Sexual Orientation Not on file 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 Patient is at [phone] documented in this encounter Plan of Treatment Not on file documented as of this encounter Visit Diagnoses Not on filedocumented in this encounter Care Teams French Polisher Relationship Specialty Start Date End Date Phan Garvin MD PCP - General Family Medicine 09/14/22 Phan Garvin MD Family Medicine 09/14/22 documented as of this encounter
--- OUTSIDE RECORDS SUMMARY | 2024-03-15 17:50 | XMS_ITS | Encounter Summary ---
Author Organization [facility] Address [address] [place] [address] Phone Care Team Providers Care Certified Medication Aide Name Role Phone Phan Garvin MD Primary Care Provider [phone] Phan Garvin MD Unavailable [phone] Encounter Details Date Type Department Care Team (Late st Contact Info) Description 06/29/2023 Telephone [facility] Infectious Diseases [address] [place] [address] [address] [place] [address] Marina Colunga, [facility] Social History Tobacco Use Types Packs/Day [...] on file Legal Sex Female 7:11 PM IRON AND STEEL WORK SUPERVISOR Gender Identity Not on file Sexual Orientation Not on file 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 Forquestions, please call the patient at [phone]. documented in this encounter Plan of Treatment Not on file documented as of this encounter Visit Diagnoses Not on filedocumented in this encounter Care Teams Certified Medication Aide Relationship Specialty Start Date End Date Phan Garvin MD PCP - General Family Medicine 09/14/22 Phan Garvin MD Family Medicine 09/14/22 documented as of this encounter
--- OUTSIDE RECORDS SUMMARY | 2024-03-15 17:50 | XMS_ITS | Encounter Summary ---
Author Organization [facility] Address [address] [place] [address] Phone Care Team Providers Care Avp Name Role Phone Phan Garvin MD Primary Care Provider [phone] Phan Garvin MD Unavailable [phone] Encounter Details Date Type Department Care Team (Late st Contact Info) Description 04/26/2023 Telephone [facility] Obstetrics and Gynecology [address] [facility] Outpatient Health 7th Floor [address] [place] [address] Maria Esther Brown, RN Social [...] on file Legal Sex Female 7:11 PM TEMPERATURE REGULATOR Gender Identity Not on file Sexual Orientation [...] She had a fall at [place] in [place] yesterday and she took ibuprofen for discomfort along with her baby ASA. After taking this combination she experienced the bleeding in urine. Patient informed to go to urgent care in [place] if she feels she is experiencing UTI or continues to have blood in urine. She will contact senior oracle database developer in regarding to holding baby ASA. ERATURE REGULATOR documented in this encounter Plan of Treatment Not on file documented as of this encounter Visit Diagnoses Not on filedocumented in this encounter Care Teams Avp Relationship Specialty Start Date End Date Phan Garvin MD PCP - General Family Medicine 09/14/22 Phan Garvin MD Family Medicine 09/14/22 documented as of this encounter
--- OUTSIDE RECORDS SUMMARY | 2024-03-15 17:50 | XMS_ITS | Encounter Summary ---
Author Organization [facility] Address [address] [place] [address] Phone Care Team Providers Care Security System Engineer Name Role Phone Phan Garvin MD Primary Care Provider [phone] Phan Garvin MD Unavailable [phone] Reason for Visit * Consultation (Routine) - Authorized Specialty Diagnoses / Procedures Referred By Contac t Referred To Contact Infectious Diseases Diagnoses Recurrent UTI C. difficile diarrhea Poncho Melgar MD [address] [place] [address] Phone: tel: fax: [facility] (All Locations) Referral ID Status Reason Start Date Expiration Date Visits Requested Visits Authorized [id number] Authorized Specialty Services Required 05/14/2023 06/12/2024 6 6 Encounter Details Date Type Department Care Team (Late st Contact Info) Description 05/17/2023 8:40 AM PIPE MAKER Office Visit [facility] Infectious Diseases [address] [facility] [address] [place] [address] Donnie Chavis MD [address] [facility] [address] [place] [address] Screening examination for venereal disease (Primary Dx); [...] on file Legal Sex Female 7:11 PM PIPE MAKER Gender Identity Not on file Sexual Orientation Not on file 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 Not on file Not on file documented as of this encounter Last Filed Vital Signs Vital Sign Reading Time Taken Comments Blood Pressure 110/71 05/17/2023 8:49 AM PIPE MAKER Pulse 68 05/17/2023 8:49 AM PIPE MAKER Temperature 36.8 ??C (98.2 ??F) 05/17/2023 8:49 AM CS T Respiratory Rate 18 05/17/2023 8:49 AM PIPE MAKER Oxygen Saturation - - Inhaled Oxygen Concentration - - Weight 71.3 kg (157 lb 1.6 oz) 05/17/2023 8:49 A M PIPE MAKER Height 160 cm (5' 3 ) 05/17/2023 8:49 AM PIPE MAKER Body Mass Index 27.83 05/17/2023 8:49 AM PIPE MAKER documented in this encounter Patient Instructions * Patient Instructions* Donnie Chavis MD - 05/17/2023 8:40 AM PIPE MAKER Decrease the vancomycin to once per day. [...] bathroom and kitchen. You can use a street light cleaner that has bleach included. A spray or impregnated wipe is fine. Make sure the surface is wet when using a wipe. Please contact us, or have your physician contact us, if you are prescribed an antibiotic. We can help determine if the antibiotic is needed. If it is, we can help select one with a lower risk for C.Diff. MAKER documented in this encounter Progress Notes * Donnie Chavis MD - 05/17/2023 8:40 AM CST Infectious Disease Outpatient Initial Consult Note Patient Name: Maria A Peralta [facility] INFECTIOUS DISEASES [address] [place] [id number] Patient Active Problem List Diagnosis Code Paroxysmal atrial fibrillation ([facility]) ([facility]) I48.0 Diarrhea R19.7 Diverticulitis K57.92 Anemia D64.9 Recurrent UTI N39.0 Complicated UTI (urinary tract infection) N39.0 Vaginal atrophy N95.2 Pelvic floor dysfunction in female M62.89 History of pelvic surgery Z98.890 Lesion of bladder N32.9 Other thrombophilia ([facility]) D68.69 Subjective HPI Maria A Peralta is a 82 y.o. female who presents to the Infectious Disease clinic for a new consult for recurrent C.difficile infection (CDI). She is accompanied by her friend, Brielle. Much of her care is at [facility] and those records are not available to [...] result not available to me, I believe [facility] used PCR). It also notes she was treated with VAN, and at the time of the visit she was assisted through the treatment course and the diarrhea was significantly improved. In October 2022 she traveled to [place]. Due to concern the CDI may recur, she was provided with a CDI treatment just in case. While in [place] she developed diarrhea, took the treatment, and the diarrhea resolved. She did not seek care for that episode and her stool was never tested. Ms Peralta was in [place] in April. She presented to an urgent [...] as part of the taper prescribed in [place], with plans to decrease down to every [...] consists of fruit, yogurt and cereal or macedonian muffin, lunch is typically soup, and dinner is a salad. Fork Repairer clean her condo. She does not know [...] Reported on 01/08/2023), Disp: , Rfl: vit C,T-Ap-jtpgu-lutein-zeaxan (PreserVision AREDS-2) 250-90-40-1 mg capsule, Take 1 [...] evident by the course of events in [place]. The pain became unbearable despite two negative [...] and kitchen. I recommend purchasing an OTC street light cleaner with bleach. Bleach wipes are convenient [...] do not recommend prophylactic VAN for her. [facility] (Z11.3): I [...] ecord, and care coordination. Donnie Chavis MD, [facility] Infectious Diseases MAKER documented in this encounter Plan of [...] 2023 documented in this encounter Care Teams Security System Engineer Relationship Specialty Start Date End Date Phan Garvin MD PCP - General Family Medicine 09/14/22 Phan Garvin MD Family Medicine 09/14/22 documented as of this encounter
--- OUTSIDE RECORDS SUMMARY | 2024-03-15 17:50 | XMS_ITS | Encounter Summary ---
Author Organization [facility] Address [address] [place] [address] Phone Care Team Providers Care Sustain Engineer Name Role Phone Phan Garvin MD Primary Care Provider [phone] Phan Garvin MD Unavailable [phone] Encounter Details Date Type Department Care Team (Late st Contact Info) Description 07/05/2023 Telephone [facility] Infectious Diseases [address] [place] [address] [address] [place] [address] Zari Thomas BS Social History [...] on file Legal Sex Female 7:11 PM COMPLIANCE ASSISTANT Gender Identity Not on file Sexual [...] on top of the new one prescribed [phone] * Telephone Encounter - Judit Sanchez RN - 07/05/2023 11:44 AM CDT Urine culture results sent to Dr. Chavis, called patient with update, will follow up with provider's response. * Telephone Encounter - Zari Thomas BS - 07/05/2023 8:20 AM CDT Pt would like to discuss her UA with Nurse [phone] documented in this encounter Plan of Treatment Not on file documented as of this encounter Visit Diagnoses Not on filedocumented in this encounter Care Teams Sustain Engineer Relationship Specialty Start Date End Date Phan Garvin MD PCP - General Family Medicine 09/14/22 Phan Garvin MD Family Medicine 09/14/22 documented as of this encounter
--- OUTSIDE RECORDS SUMMARY | 2024-03-15 17:50 | XMS_ITS | Encounter Summary ---
Author Organization [facility] Address [address] [place] [address] Phone Care Team Providers Care Director Of Volunteer Services Name Role Phone Phan Garvin MD Primary Care Provider [phone] Phan Garvin MD Unavailable [phone] Encounter Details Date Type Department Care Team (Late st Contact Info) Description 07/09/[address] 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 [phone] documented in this encounter Plan of Treatment Not on file documented as of this encounter Visit Diagnoses Not on filedocumented in this encounter Care Teams Director Of Volunteer Services Relationship Specialty Start Date End Date Phan Garvin MD PCP - General Family Medicine 09/14/22 Phan Garvin MD Family Medicine 09/14/22 documented as of this encounter
--- OUTSIDE RECORDS SUMMARY | 2024-03-15 17:50 | XMS_ITS | Encounter Summary ---
Author Organization [facility] Address [address] [place] [address] Phone Care Team Providers Care Health Claims Examiner Name Role Phone Phan Garvin MD Primary Care Provider [phone] Phan Garvin MD Unavailable [phone] Encounter Details Date Type Department Care Team (Late st Contact Info) Description 06/04/2023 Telephone [facility] Infectious Diseases [address] [place] [address] [address] [place] [address] Hari Dixon, [facility] Social History Tobacco Use Types Packs/Day Years [...] on file Legal Sex Female 7:11 PM HAND PASTER Gender Identity Not on file Sexual Orientation Not on file 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
--- OUTSIDE RECORDS SUMMARY | 2024-03-15 17:51 | XMS_ITS | Encounter Summary ---
Author Organization [facility] Address [address] [place] [address] Phone Care Team Providers Care Safety Deposit Supervisor Name Role Phone Phan Garvin MD Primary Care Provider [phone] Phan Garvin MD Unavailable [phone] Encounter Details Date Type Department Care Team (Late st Contact Info) Description 02/12/2023 Telephone [facility] Obstetrics and Gynecology [address] [facility] Health 7th Floor [address] [place] [address] Alyson Brown, RN Social History Tobacco Use Types Packs/Day Years Used Date Smoking Tobacco: Never Alcohol Use Standard Drinks/Week Comments Yes 0 (1 standard drink = 0.6 oz pur e alcohol) Comments No Sex and Gender Information Value Date Recorded Sex Assigned at Not on file Legal Sex Female 7:11 PM COMMUNITY MENTAL HEALTH WORKER Gender Identity Not on file Sexual [...] Alyson Brown RN - 02/14/2023 11:34 AM COMMUNITY MENTAL HEALTH WORKER Call received from patient and reviewed meds and confirmed pharmacy. Verbalized understanding. Surgery is scheduled 03/14/22. UNITY MENTAL HEALTH WORKER * Addendum Note - Alyson Brown RN - 02/14/2023 11:27 AM CSTAddended by: ALYSON BROWN on: 02/14/2023 11:27 AM Modules accepted: Orders UNITY MENTAL HEALTH WORKER * Telephone Encounter - Alyson Brown RN - 02/14/2023 11:26 AM COMMUNITY MENTAL HEALTH WORKER LMTC regarding flagyl & macrobid can be taken together and neither is associated with C. Diff per Dr. Melgar. Order entered for macrobid BID X 14 days. UNITY MENTAL HEALTH WORKER * Telephone Encounter - Alyson Brown RN [...] or stop flagyl & switch to macrobid? UNITY MENTAL HEALTH WORKER * Telephone Encounter - Alyson Brown RN - 02/12/2023 2:30 PM CST LMTC regarding UACX result and sending in macrobid X14 days BID. UNITY MENTAL HEALTH WORKER * Telephone Encounter - Alyson Brown RN - 02/12/2023 2:28 PM CST ----- Message from Poncho Melgar MD sent at 02/12/2023 1:37 PM COMMUNITY MENTAL HEALTH WORKER ----- Please offer macrobid 100mg po bid x 14 days. UNITY MENTAL HEALTH WORKER documented in this encounter Plan of Treatment Not on file documented as of this encounter Visit Diagnoses Not on filedocumented in this encounter Care Teams Safety Deposit Supervisor Relationship Specialty Start Date End Date Phan Garvin MD PCP - General Family Medicine 09/14/22 Phan Garvin MD Family Medicine 09/14/22 documented as of this encounter
--- OUTSIDE RECORDS SUMMARY | 2024-03-15 17:51 | XMS_ITS | Encounter Summary ---
Author Organization [facility] Address [address] [place] [address] Phone Care Team Providers Care Loan Workout Officer Name Role Phone Phan Garvin MD Primary Care Provider [phone] Phan Garvin MD Unavailable [phone] Reason for Visit * Reason Onset Date Comments UACX result 04/09/2023 Encounter Details Date Type Department Care Team (Late st Contact Info) Description 04/09/[address] 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 VARNISHER documented in this encounter Plan of Treatment Not on file documented as of this encounter Visit Diagnoses Not on filedocumented in this encounter Care Teams Loan Workout Officer Relationship Specialty Start Date End Date Phan Garvin MD PCP - General Family Medicine 09/14/22 Phan Garvin MD Family Medicine 09/14/22 documented as of this encounter
--- OUTSIDE RECORDS SUMMARY | 2024-03-15 17:51 | XMS_ITS | Encounter Summary ---
Author Organization [facility] Address [address] [place] [address] Phone Care Team Providers Care Instructor Ballroom Dancing Name Role Phone Phan Garvin MD Primary Care Provider [phone] Phan Garvin MD Unavailable [phone] Reason for Visit * Reason Onset Date Comments SHANNAN 04/05/2023 Encounter Details Date Type Department Care Team (Late st Contact Info) Description 04/05/2023 Telephone [facility] Obstetrics and Gynecology [facility] Out[facility] Health 7th Floor [address] [place] [address] Maria Esther Brown, RN SHANNAN [...] on file Legal Sex Female 7:11 PM ROTARY DRIER Gender Identity Not on file Sexual Orientation Not on file 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 Her antibiotic was changed to nitrofurantoin when culture resulted. She took 5 days of antibiotic but c/o UTI symptoms. Completed nitrofurantoin last night. Will go for SHANNAN to [place]. Patient reports that she stopped performing CISC 2 weeks ago due to pain of catheterizing. She is scheduled for surgery 04/11/23 (cystoscopy). She spoke with Anesthesia today. RY DRIER documented in this encounter Plan of Treatment Not on file documented as of this encounter Procedures Procedure Name Priority Date/Time Associated Diagnosis Comments URINE CULTURE Routine 04/05/2023 11:36 AM ROTARY DRIER Recurrent UTI documented in this encounter Results * (ABNORMAL) Urine culture Urine, clean voided (04/05/2023 11:36 AM ROTARY DRIER) Urine culture (A) [facility] Comment: ??CULTURE, URINE, ROUTINE ?Micro Number: ?[id number] ??Test Status: ? Final ??Specimen Source: ?? [...] Comments Urine, clean voided 04/05/2023 11:36 AM ROTARY DRIER 04/05/2023 11:36 AM ROTARY DRIER Narrative [facility] - 04/07/2023 1:17 PM ROTARY DRIER FASTING:NO FASTING: NO us Poncho Melgar MD LAB MICROBIOLOGY - GENERAL ORDERABLES Final Result Performing Organization Address [facility] Co de Phone Number [facility] [address] [place] [address] documented in this encounter Visit Diagnoses Diagnosis Recurrent UTI- Primary Urinary tract infection, site not specified documented in this encounter Care Teams Instructor Ballroom Dancing Relationship Specialty Start Date End Date Phan Garvin MD PCP - General Family Medicine 09/14/22 Phan Garvin MD Family Medicine 09/14/22 documented as of this encounter
--- OUTSIDE RECORDS SUMMARY | 2024-03-15 17:51 | XMS_ITS | Encounter Summary ---
Author Organization [facility] Address [address] [place] [address] Care Team Providers Care Painter Bottom Name Role Phone Phan Garvin MD Primary Care Provider [phone] Phan Garvin MD Unavailable [phone] Reason for Visit * Reason Onset Date Comments Scheduling Appointments 03/04/2023 Encounter Details Date Type Department Care Team (Late st Contact Info) Description 03/04/2023 Telephone [facility] Medical Group Cardiology [address] [place] [address] Umu Marrufo MD [address] [place] [address] Scheduling Appointments Social History Tobacco [...] on file Legal Sex Female 7:11 PM SCREEN VENT BINDER Gender Identity Not on file Sexual Orientation Not on file 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 EN VENT BINDER * Telephone Encounter - Lisha King RN - 03/06/2023 9:09 AM SCREEN VENT BINDER Please schedule pt for hospital f/u in the next month or so. EN VENT BINDER * Telephone Encounter - Umu Marrufo MD - 03/04/2023 6:35 PM SCREEN VENT BINDER Patient admitted after 2 ER visits in 1 month for PAF. Loaded on sotalol. Discharged today. --please schedule a follow-up visit in the next month or so. EN VENT BINDER documented in this encounter Plan of Treatment Not on file documented as of this encounter Visit Diagnoses Not on filedocumented in this encounter Care Teams Painter Bottom Relationship Specialty Start Date End Date Phan Garvin MD PCP - General Family Medicine 09/14/22 Phan Garvin MD Family Medicine 09/14/22 documented as of this encounter
--- OUTSIDE RECORDS SUMMARY | 2024-03-15 17:51 | XMS_ITS | Encounter Summary ---
Author Organization [facility] Address [address] [place] [address] Phone Care Team Providers Care Press Hand Name Role Phone Phan Garvin MD Primary Care Provider [phone] Phan Garvin MD Unavailable [phone] Encounter Details Date Type Department Care Team (Late st Contact Info) Description 04/05/2023 Telephone [facility] Obstetrics and Gynecology [address] [facility] Outpatient Health 7th Floor [address] [place] [address] Maria Esther Brown, RN Social [...] on file Legal Sex Female 7:11 PM CAR JOCKEY Gender Identity Not on file Sexual Orientation Not on file 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 Melgar's approval to hold ASA therapy 7 days prior to her scheduled surgery on 04/11/23. Patient verbalized understanding and will hold ASA beginning 04/05/23. JOCKEY * Telephone Encounter - Maria Esther Brown RN - 04/05/2023 11:48 AM CAR JOCKEY ----- Message from Maria Esther Brown RN sent at 04/05/2023 10:02 AM CAR JOCKEY ----- Regarding: FW: TPAP Message Dr Melgar Message to Dr. Melgar today about ASA therapy ----- Message ----- From: Simone Millard NP Sent: 04/05/2023 9:43 AM CAR JOCKEY To: [facility] Clinical Pool Subject: TPAP Message Dr Melgar [...] therapy when feasible in the postoperative period. [facility] staff message sent to surgeon's office. Please call the [facility] chart room clinician ([phone]) with any questions. >Patient reports taking macrobid currently for another UTI set to finish antibiotic tomorrow however still reporting burning and urinary frequency. Urine culture from 03/13/23 negative for UTI, please coordinate with patient if further testing is required prior to procedure. [facility] message sent to surgeons office. >NOTE: There is no need to reply to this message but if you would like to send a non-urgent reply, please address it to the [facility] staff message POOL address [facility] CHIROPRACTIC TEACHER (number [phone]). Please note that messages to this address will be replied to within approximately 1 business day. If you have an urgent reply, please call the CPAP at [phone]. JOCKEY documented in this encounter Plan of Treatment Not on file documented as of this encounter Visit Diagnoses Not on filedocumented in this encounter Care Teams Press Hand Relationship Specialty Start Date End Date Phan Garvin MD PCP - General Family Medicine 09/14/22 Phan Garvin MD Family Medicine 09/14/22 documented as of this encounter
--- OUTSIDE RECORDS SUMMARY | 2024-03-15 17:51 | XMS_ITS | Encounter Summary ---
Author Organization [facility] Address [address] [place] [address] Phone Care Team Providers Care Winder Tender Name Role Phone Phan Garvin MD Primary Care Provider [phone] Phan Garvin MD Unavailable [phone] Encounter Details Date Type Department Care Team (Late st Contact Info) Description 02/12/[address] 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 Forwarded to Gissell. E COMMERCE WEB DEVELOPER documented in this encounter Plan of Treatment Not on file documented as of this encounter Visit Diagnoses Not on filedocumented in this encounter Care Teams Winder Tender Relationship Specialty Start Date End Date Phan Garvin MD PCP - General Family Medicine 09/14/22 Phan Garvin MD Family Medicine 09/14/22 documented as of this encounter
--- OUTSIDE RECORDS SUMMARY | 2024-03-15 17:51 | XMS_ITS | Encounter Summary ---
Author Organization [facility] Address [address] [place] [address] Phone Care Team Providers Care Lpn Rn Hospice Name Role Phone Phan Garvin MD Primary Care Provider [phone] Phan Garvin MD Unavailable [phone] Reason for Visit * Reason Onset Date Comments Void/PVR 03/16/2023 Encounter Details Date Type Department Care Team (Late st Contact Info) Description 03/16/2023 Telephone [facility] Obstetrics and Gynecology [facility] Outpatient Health 7th Floor [address] [place] [address] Araceli Anderson RN Void/PVR Social [...] file Legal Sex Female 7:11 PM SUPERVISOR MODEL MAKING Gender Identity Not on file Sexual Orientation Not on file 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 She has been performing CISC 2 times a day. Void (ml) PVR (ml) 1/2 140 100 1/3 150 50 200 200 1/4 110 Thinks she inserted vaginally 100 100 1/5 150 200 She states that her verification engineer has her on 81 mg aspirin instead of Eliquis because she had blood in her urine and thinks her AFIB is controlled with Sotalol. She states they would sign off on her biopsy. She will be out of town 03/26-04/04. RVISOR MODEL MAKING documented in this encounter Plan of Treatment Not on file documented as of this encounter Visit Diagnoses Not on filedocumented in this encounter Care Teams Lpn Rn Hospice Relationship Specialty Start Date End Date Phan Garvin MD PCP - General Family Medicine 09/14/22 Phan Garvin MD Family Medicine 09/14/22 documented as of this encounter
--- OUTSIDE RECORDS SUMMARY | 2024-03-15 17:51 | XMS_ITS | Encounter Summary ---
Author Organization [facility] Address [address] [place] [address] Phone Care Team Providers Care Pattern Wheel Maker Name Role Phone Phan Garvin MD Primary Care Provider [phone] Phan Garvin MD Unavailable [phone] Encounter Details Date Type Department Care Team (Late st Contact Info) Description 03/01/2023 Telephone [facility] Obstetrics and Gynecology [address] [facility] Health 7th Floor [address] [place] [address] Maria Esther Brown, RN Social [...] on file Legal Sex Female 7:11 PM CHEMIST PROTEINS Gender Identity Not on file Sexual Orientation [...] so that she can schedule preop assessment. IST PROTEINS * Telephone Encounter - Maria Esther Brown RN - 03/01/2023 4:05 PM CST ----- Message from Gissell Anaya B.A. sent at 03/01/2023 4:02 PM CHEMIST PROTEINS ----- Regarding: RE: DEBORAH Melgar Unable to contact patient Please try to leave a message for this patient-- she will return your call ----- Message ----- From: Maria Esther Brown RN Sent: 03/01/2023 3:42 PM CHEMIST PROTEINS To: Gissell Anaya B.A. Subject: FW: CPAP Dr. Melgar Unable to contact patient Can you help facilitate an appt with CPAP with this patient? She has trouble with her phone but if you leave a message she usually calls back. She is not on my chart. ----- Message ----- From: Brayan Church RN Sent: 03/01/2023 11:51 AM CHEMIST PROTEINS To: [facility] Clinical Pool Subject: CPAP Dr. Melgar Unable [...] if you have questions, please contact the [facility] Day of Surgery RN @ [phone] and your call will be directed to the appropriate staff member. Cristela IST PROTEINS documented in this encounter Plan of Treatment Not on file documented as of this encounter Visit Diagnoses Not on filedocumented in this encounter Care Teams Pattern Wheel Maker Relationship Specialty Start Date End Date Phan Garvin MD PCP - General Family Medicine 09/14/22 Phan Garvin MD Family Medicine 09/14/22 documented as of this encounter
--- OUTSIDE RECORDS SUMMARY | 2024-03-15 17:51 | XMS_ITS | Encounter Summary ---
Author Organization [facility] Address [address] [place] [address] Care Team Providers Care Legal Services Professional Name Role Phone Phan Garvin MD Primary Care Provider [phone] Phan Garvin MD Unavailable [phone] Reason for Visit * Auth/Cert (Routine) Specialty Diagnoses / Procedures Referred By Contashley t Referred To Contact Diagnoses Complicated UTI (urinary tract infection) History of pelvic surgery Recurrent UTI Lesion of bladder Complicated UTI (urinary tract infection) [N39.0] History of pelvic surgery [Z98.890] Recurrent UTI [N39.0] Lesion of bladder [N32.9] Procedures [place] CYSTOURETHROSCOPY WITH BIOPSY CYSTOSCOPY BIOPSY BLADDER - CYSTOSCOPY and fulguration Referral ID Status Reason Start Date Expiration Date Visits Re quested Visits Authorized [id number] 1 1 Encounter Details Date Type Department Care Team (Latest Contact Info) Description 04/11/2023 12:44 PM CHAIR CAR DRIVER - 04/11/2023 9:30 PM CHAIR CAR DRIVER Hospital Encounter [facility] Operating Room [address] [place] [id number] Poncho Melgar MD [address] [facility] [facility] [address] [place] [address] Complicated UTI (urinary tract infection); [...] on file Legal Sex Female 7:11 PM CHAIR CAR DRIVER Gender Identity Not on file Sexual Orientation Not on file 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 Not on file Not on file Not on file documented as of this encounter Last Filed Vital Signs Vital Sign Reading Time Taken Comments Blood Pressure 129/68 04/11/2023 7:25 PM CHAIR CAR DRIVER Pulse 58 04/11/2023 7:25 PM CHAIR CAR DRIVER Temperature 36.4 ??C (97.5 ??F) 04/11/2023 3:45 PM CS T Respiratory Rate 16 04/11/2023 4:40 PM CHAIR CAR DRIVER Oxygen Saturation 98% 04/11/2023 7:25 PM CHAIR CAR DRIVER Inhaled Oxygen Concentration - - Weight 75.3 kg (166 lb) 03/29/2023 2:10 PM CHAIR CAR DRIVER Height 160 cm (5' 3 ) 03/29/2023 2:10 PM CHAIR CAR DRIVER Body Mass Index 29.41 03/29/2023 2:10 PM CHAIR CAR DRIVER documented in this encounter Discharge Instructions * Discharge Instructions* Tyler Mcelroy MD - 04/11/2023 2:21 PM CHAIR CAR DRIVER Urogynecology Post-op Instructions and Recovery Please take [...] of the doctors from our office is inventory control assistant 24 hours a day, seven days a [...] pelvic ultrasound to ensure this is normal. R CAR DRIVER R CAR DRIVER documented in this encounter Medications at Time [...] rosuvastatin (CRESTOR) 10 mg tablet 09/24/2019 vit C,F-Em-abprn-lute in-zeaxan (PreserVision AREDS-2) 250-90-40-1 mg capsuleIndication s:eye [...] in this encounter H&P Notes * Poncho Meglar MD - 04/11/2023 2:18 PM CST I have reviewed the H&P, examined the patient, and endorse the findings as written. 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 Butt), and remembers having UDS [...] Past Medical History: Diagnosis Date Atrial fibrillation ([facility]) ([facility]) 03/01/2022 Hypercholesteremia Osteoporosis Recurrent UTI Surgical History [...] Take After meals 6 tablet 0 vit C,I-Bp-ueywb-lutein-zeaxan (PreserVision AREDS-2) 250-90-40-1 mg capsule Take by [...] masses, no tenderness. Perineal Sensation: normal. Anal [place]: present. Recent Results ASSESSMENT: Maria A Jean [...] signed. She is to meet with [facility] for anesthesia counseling and consent. 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 Butt), and remembers having UDS [...] Medical History: Diagnosis Date Atrial fibrillation (CMS/HCC) ([facility]) 03/01/2022 Hypercholesteremia Osteoporosis Recurrent UTI Surgical History [...] Take After meals 6 tablet 0 vit C,C-Dz-vyoqk-lutein-zeaxan (PreserVision AREDS-2) 250-90-40-1 mg capsule Take by [...] masses, no tenderness. Perineal Sensation: normal. Anal [place]: present. Recent Results ASSESSMENT: Maria A Jean [...] signed. She is to meet with [facility] for anesthesia counseling and consent. R CAR DRIVER documented in this encounter Miscellaneous Notes * Op Note - Poncho Melgar MD - 04/11/2023 3:10 PM CST SURGEON Poncho Melgar MD. AIR TRAFFIC INSTRUCTOR Tyler Mcelroy MD. PREOPERATIVE DIAGNOSIS Refractory recurrent urinary tract infections. Prior office cystoscopy due to poor visualization due to desquamation. Erythematous patches, can not rule out malignancy/dysplasia Neurogenic bladder POSTOPERATIVE DIAGNOSIS Same PROCEDURE Operative cystoscopy with biopsy x 5 sites and fulguration of biopsy sites Manual bladder irrigation with the Ellik toll gate tender ANESTHESIA LMA genearl . IV FLUID 700 [...] was irrigated several times including with an HealthMicroik bladder toll gate tender. The bladder was thoroughly surveyed with attempts [...] was present and performed the entire procedure. R CAR DRIVER * Pre-Procedure Instructions - [place] Opalpadmini EdwardMATY zamarripa - 04/05/2023 8:22 AM CST [facility] CPAP Clinic Location: [facility] The night before your surgery: * Do [...] Don't take on day of surgery vit C,M-Bi-mfrad-lutein-zeaxan (PreserVision AREDS-2) 250-90-40-1 mg capsule Stop taking [...] with COVID-19. You test positive for COVID-19. R CAR DRIVER * Pre-Procedure Instructions - Lisha Dennis, JOHN [...] remove nail coverings, artificial nails and nail faroese prior to the day of surgery. You should leave your valuables and any jewelry at home. No metal or piercings are allowed in the operating room. You should bring your insurance card, a photo ID (example: Supervisor Dry Cleaning's License) and a method of payment for [...] Chart. If you are having surgery at [facility], please arrive on the day of [...] Remove nail coverings, artificial nails and nail faroese. Place clean linens on your bed the [...] questions, please call the CPAP Staff at [phone], Sunday-Sunday 8am-4:30pm. All patients should read the below section: COVID 19 Updates & Visitor Policy: Please access [email or web address] for the most updated information. Information on [facility] the [facility]: Please view [email or web address] (Patient & Visitor Information) for additional details regarding Advanced Directive forms, AWARE, directions, parking information, lodging, Internet access, dining and more. For MyChart information, to activate account or password recovery, please go to [email or web address] or call [phone] (toll-free: [phone]), Sun- Sunday 8am-5pm. Information for Suicide Prevention: National Suicide Prevention Lifeline (3-551- 568-TALK (2287) orcall or text 195. Chat resources: Triggit.org. Surgery Times: For patients having surgery @ [facility] Medicine or [facility] ([facility]), if your surgeon's office has not notified you of your surgery time by NOON THE BUSINESS DAY BEFORE your surgery, please call [phone] and ask for your surgeon's office Dr Melgar. The Center for Preoperative Assessment & Planning (CPAP) does not provide arrival times for the day of surgery or provide the duration of surgery. This information is provided by your surgeon'soffice or by the center where you are having surgery. We appreciate your understanding. R CAR DRIVER * Perioperative Nursing Note - Lisha Dennis RN - 03/29/2023 2:15 PM CST [facility] Planning Perioperative Nursing Note Telephone Preoperative Evaluation ([facility]) - TELEPHONE ONLY, NO PHYSICAL EXAM Date: [...] mouth 2 (two) times a day vit C,U-Xn-rewxb-lutein-zeaxan (PreserVision AREDS-2) 250-90-40-1 mg capsule Take 1 [...] Directive: Patient does not have advance directive Communication/Personal Injury Specialist Needs Communication Needs: Glasses, Hearing aide(s) Assistive Devices/DME: Eyeglasses Hearing - Right Ear: Hearing aid Hearing - Left Ear: Hearing aid Discharge Planning Type of Residence: Private residence Living Arrangements: Alone Support Systems: Children, Family members, Friends/neighbors Patient expects to be discharged to:: Private residence COMPOUND FINISHER NO R CAR DRIVER documented in this encounter Plan of Treatment Not on file documented as of this encounter Procedures Procedure Name Priority Date/Time Associated Diagnosis Comments CYTOLOGY Routine 04/11/2023 3:45 PM CHAIR CAR DRIVER Complicated UTI (urinary tract infection) History of pelvic surgery Recurrent UTI Lesion of bladder SURGICAL PATHOLOGY Routine 04/11/2023 3: 19 PM CHAIR CAR DRIVER Complicated UTI (urinary tract infection) History of pelvic surgery Recurrent UTI Lesion of bladder URINE CULTURE Routine 04/11/2023 3:02 PM CHAIR CAR DRIVER BIOPSY BLADDER - CYSTOSCOPY 04/11/2023 2:36 PM CHAIR CAR DRIVER Complicated UTI (urinary tract infection) History of pelvic surgery Recurrent UTI Lesion of bladder Case Notes 03/07@1300- Patient in AFIB ??will reschedule later per Gissell via case msg.EF CYSTOSCOPY 04/11/2023 2:36 PM CHAIR CAR DRIVER Complicated UTI (urinary tract infection) History of pelvic surgery Recurrent UTI Lesion of bladder Case Notes 03/07@1300- Patient in AFIB ??will reschedule later per Gissell via case msg.EF DIFFERENTIAL AUTO STAT 04/11/2023 2:0 0 PM CHAIR CAR DRIVER CBC WITH AUTO DIFFERENTIAL STAT 04/11/2023 2:00 PM CHAIR CAR DRIVER TYPE AND SCREEN STAT 04/11/2023 2:00 PM CHAIR CAR DRIVER documented in this encounter Results * Cytology (04/11/2023 3:45 PM CHAIR CAR DRIVER) Fluid (Urine, catherized (Cytology)) 04/11/2023 3:45 PM CHAIR CAR DRIVER Narrative PATHOLOGY [facility] - 04/13/2023 3:32 PM CHAIR CAR DRIVER EPIC results best viewed via link to PDF [facility] [place] [address] Note to Patients: This report may contain [...] Gender: ??F : ??1940 (Age: 82) Address: ??[address] [place] [address] ??[address] Hospital #: ??[id number] Taken:04/11/2023 Received:04/11/2023 Reported: 04/13/2023 Patient Type: [facility] SDS ?? Service: Surgery Location: [facility] OR POD1 Physician(s): ??Poncho Melgar M.D. Phan [...] Surgical Pathology and Flow Cytometry Departments at [facility] as part of an ongoing research quality assurance specialist program and in compliance with federally mandated [...] Surgical Pathology and Flow Cytometry Departments of [facility]. ??It has not been cleared or approved by the U. S. Food and Drug Administration. Poncho Melgar MD LAB CYTOLOGY ORDERABLES Fin al Result PATHOLOGY [facility] 3rd Floor [place], [place] [phone] * Surgical pathology (04/11/2023 3:19 PM CHAIR CAR DRIVER) Tissue (Bladder, biopsy) 04/11/2023 3:19 PM CHAIR CAR DRIVER Narrative PATHOLOGY [facility] - 04/12/2023 2:09 PM CHAIR CAR DRIVER EPIC results best viewed via link to PDF [facility] [place] [address] Note to Patients: This report may contain [...] Patient Name: ?? MARIA A JEAN #: ??[id number] Gender: ??F : ??1940 (Age: 82) Address: ??[address] [place] [address] ??[address] Hospital #: ??[id number] Taken:04/11/2023 Received:04/11/2023 Reported: 04/12/2023 Patient Type: [facility] [...] Report Electronically Reviewed and Signed Out By ??oYng Lora M.D., Ph.D. 04/12/2023 14:09:27 Microscopic Description [...] Surgical Pathology and Flow Cytometry Departments at [facility] as part of an ongoing research quality assurance specialist program and in compliance with federally mandated [...] Surgical Pathology and Flow Cytometry Departments of [facility]. ??It has not been cleared or approved by the U. S. Food and Drug Administration. IMAGES AND SCANNED DOCUMENTS, IF INCLUDED, ONLY VIEWABLE IN PDF VERSION OF REPORT Poncho Melgar MD LAB PATHOLOGY ORDERABLES Fi nal Result PATHOLOGY [facility] 3rd Floor [place], [place] [phone] * Urine culture Urine, bladder (04/11/2023 3:02 PM CHAIR CAR DRIVER) Report Final Report: Less than 100,000 colonies/mL (clinically insignificant growth based on current clinical standards) [facility] Organism (CLINICALLY INSIGNIFICANT GROWTH [facility] Urine, bladder 04/11/2023 3: 02 PM CHAIR CAR DRIVER 04/11/2023 4:52 PM CHAIR CAR DRIVER Narrative [facility] - 04/12/2023 7:01 PM CHAIR CAR DRIVER Bladder Urine for culture Indications for Culture:->Urology patient Specimen received in a sterile container. Specimen collected in the operating room. Testing performed by [facility] Microbiology Laboratory ([phone]) Poncho Melgar MD LAB MICROBIOLOGY - GENERAL ORDERABLES Final Result [facility] One [facility] [place] [address] * Differential, auto (04/11/2023 2:00 PM CHAIR CAR DRIVER) Neutrophil abs 2.5 1.5 - 6.5 K/cumm [facility] Imm gran abs 0.0 0.0 - 0.1 K/cumm [facility] Lymphocyte abs 2.5 0.8 - 3.3 K/cumm [facility] Monocyte abs 0.6 0.2 - 0.8 K/cumm [facility] Eosinophil abs 0.1 0.0 - 0.5 K/cumm [facility] Basophil abs 0.1 0.0 - 0.1 K/cumm [facility] Neutrophil pct 42.8 % [facility] Comment: Interpretive Data Percent cell count reference ranges are not reported, since discordance with absolute values may lead to misinterpretation of CBC data. Current Interpretive Data was last revised on 2017. Imm gran pct 0.3 % [facility] Comment: Interpretive Data Percent cell count reference ranges are not reported, since discordance with absolute values may lead to misinterpretation of CBC data. Current Interpretive Data was last revised on 2017. Lymphocyte pct 43.4 % [facility] Comment: Interpretive Data Percent cell count reference ranges are not reported, since discordance with absolute values may lead to misinterpretation of CBC data. Current Interpretive Data was last revised on 2017. Monocyte pct 10.9 % [facility] Comment: Interpretive Data Percent cell count reference ranges are not reported, since discordance with absolute values may lead to misinterpretation of CBC data. Current Interpretive Data was last revised on 2017. Eosinophil pct 1.7 % [facility] Comment: Interpretive Data Percent cell count reference ranges are not reported, since discordance with absolute values may lead to misinterpretation of CBC data. Current Interpretive Data was last revised on 2017. Basophil pct 0.9 % [facility] Comment: Interpretive Data Percent cell count reference ranges are not reported, since discordance with absolute values may lead to misinterpretation of CBC data. Current Interpretive Data was last revised on 2017. Blood 04/11/2023 2:00 PM CHAIR CAR DRIVER 04/11/2023 2:17 PM CHAIR CAR DRIVER Simone Millard NP LAB BLOOD ORDERABLES Final Result Performing Organization Address City/[facility]/ZIP Co de Phone Number [facility] [place] [address] * (ABNORMAL) CBC with auto differential (04/11/2023 2:00 PM CHAIR CAR DRIVER) WBC 5.8 3.8 - 9.9 K/cumm [facility] Hgb 12.2 11.9 - 15.5 g/dL [facility] Hct 36.5 35.6 - 45.5 % [facility] Plt 335 150 - 400 K/cumm [facility] MPV 12.5(H) 9.1 - 12.3 fL [facility] RBC 4.06 3.90 - 5.20 M/cumm [facility] MCV 89.9 81.3 - 96.4 fL [facility] MCH 30.0 27.1 - 33.3 pg [facility] MCHC 33.4 32.3 - 35.7 g/dL [facility] RDW CV 14.0 11.1 - 14.9 % [facility] RDW SD 46.0 35.7 - 48.1 fL [facility] NRBC abs 0.00 0.00 - 0.01 K/cumm [facility] Blood 04/11/2023 2:00 PM CHAIR CAR DRIVER 04/11/2023 2:17 PM CHAIR CAR DRIVER Simone Millard NP LAB BLOOD ORDERABLES Final Result Performing Organization Address City/[facility]/ZIP Co de Phone Number [facility] [place] [address] * Type and screen (04/11/2023 2:00 PM CHAIR CAR DRIVER) ABO Rh O Positive Alejandra, indirect Negative [facility] Blood 04/11/2023 2:00 PM CHAIR CAR DRIVER 04/11/2023 2:13 PM CHAIR CAR DRIVER Narrative [facility] - 04/11/2023 3:41 PM CHAIR CAR DRIVER Has the patient had Daratumumab or Isatuximab in the past 6 months?->Unknown Simone Millard NP LAB BLOOD BANK TEST ORDERAB LES Final Result [facility] One [facility] [place] [address] documented in this encounter Visit Diagnoses Diagnosis [...] AnalgesiaIndications:Pre-Emp tive Analgesia Given 04/11/2023 1:39 PM CHAIR CAR DRIVER 1,000 mg Carrier Fluids for Secondary Infusion [...] more., Indications: PainIndications:Pain Given 04/11/2023 4:00 PM CHAIR CAR DRIVER 25 mcg gabapentin (NEURONTIN) capsule 300 mg 300 mg, oral, Once, On Sun04/11/23 at 1345, For 1 dose, Pre-Op, Indications: Pre-Emptive AnalgesiaIndications:Pre-Emp tive Analgesia Given 04/11/2023 1:39 PM CHAIR CAR DRIVER 300 mg haloperidol (HALDOL) injection 1 mg 1 mg, intravenous, Once as needed, nausea, vomiting, Starting on Sun04/11/23 at 1540, For 1 dose, Phase I, If nausea/vomiting not relieved by ondansetron within 30 minutes or if ondansetron has been given within the last 6 hours. Given 04/11/2023 4:00 PM CHAIR CAR DRIVER 1 mg Lactated Ringer's (LR) infusion 30 mL/hr, intravenous, Continuous, Starting on Sun04/11/23 at 1345, Pre-Op Lactated Ringer's (LR) infusion 30 mL/hr, intravenous, Continuous, Starting on Sun04/11/23 at 1345 Rate/Dose Verify 04/11/2023 2:32 PM CHAIR CAR DRIVER 30 mL/hr New Bag 04/11/2023 1:40 PM CHAIR CAR DRIVER 30 mL/hr 30 mL/hr Lactated Ringer's (LR) [...] Recently Administered Medications Times are shown in CHAIR CAR DRIVER. Scheduled Medication Order 04/09/2023 04/10/2023 04/11/2023 acetaminophen [...] Ramirez CRNA)1530 (Anesthesia Volume Adjustment - Provider: nSeha Ramirez CRNA) Lactated Ringer's (LR) infusion 125 [...] 04/11/2023 documented in this encounter Care Teams Legal Services Professional Relationship Specialty Start Date End Date Phan Garvin MD PCP - General Family Medicine 09/14/22 Phan Garvin MD Family Medicine 09/14/22 documented as of this encounter
--- OUTSIDE RECORDS SUMMARY | 2024-03-15 17:51 | XMS_ITS | Encounter Summary ---
Author Organization [facility] Healthcare Address [address] [place] [address] Care Team Providers Care Bricklayer Paving Brick Name Role Phone Phan Garvin MD Primary Care Provider [phone] Phan Garvin MD Unavailable [phone] Encounter Details Date Type Department Care Team (Late st Contact Info) Description 03/13/2023 Telephone [facility] Medical [facility] Cardiology [address] [place] [address] Billy Becerra MD [address] [id number] Social History Tobacco Use Types Packs/Day Years Used Date Smoking Tobacco: Never Alcohol Use Standard Drinks/Week Comments Yes 0 (1 standard drink = 0.6 oz pur e alcohol) Personal Safety Answer Date Recorded Getting School Help Needed Not on file 02/19 Comments No Sex and Gender Information Value Date Recorded Sex Assigned at Not on file Legal Sex Female 7:11 PM COMMUNITY OUTREACH ADVOCATE Gender Identity Not on file Sexual Orientation Not on file 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 Pt appreciated the callback. UNITY OUTREACH ADVOCATE * Telephone Encounter - Virginia Frias - 03/27/2023 9:57 AM COMMUNITY OUTREACH ADVOCATE Pt is requesting a call back [place] in regards to the clearance letter being faxed to Dr. Melgar. Pt states she's been dealing with this matter since February of 2023 Pt cb [phone] UNITY OUTREACH ADVOCATE * Telephone Encounter - Albina Figueroa RN - 03/23/2023 9:03 AM CST Clearance printed and on CT desk for her review UNITY OUTREACH ADVOCATE * Telephone Encounter - Tami Aaron - 03/23/2023 8:[address] Melgar sent a cardiac clearance request to our office on 03/21 for MJF to sign. It is under the letters tab. Please complete and send back to Dr. Melgar office as soon as you can per pt request. Thank you. Contact: UNITY OUTREACH ADVOCATE * Telephone Encounter - Carol Darnell RN - 03/15/2023 8:48 AM COMMUNITY OUTREACH ADVOCATE Spoke with pt and re-reviewed message from CT and she verbalized understanding. She said she LM at surgeon's office with our fax number yesterday. UNITY OUTREACH ADVOCATE * Telephone Encounter - Lynnette Amin - [...] is appropriate to go forward with procedure. Contact:[phone] UNITY OUTREACH ADVOCATE * Telephone Encounter - Carol Darnell RN - 03/14/2023 9:24 AM COMMUNITY OUTREACH ADVOCATE LM on VM reviewing message from CT and advised pt to callback with any questions or concerns. Informed her that if physician performing biopsy needs a written clearanc we would be happy to help and they can fax request to nurse fax at [phone]. UNITY OUTREACH ADVOCATE * Telephone Encounter - aPyal Carrasquillo NP - 03/13/2023 5:07 PM COMMUNITY OUTREACH ADVOCATE I reviewed Dr. Jennings's last office note [...] of sotalol when she has the biopsy. UNITY OUTREACH ADVOCATE * Telephone Encounter - Carol Darnell RN - 03/13/2023 4:10 PM COMMUNITY OUTREACH ADVOCATE Spoke with pt, she has been having some blood in her urine for a little while now but it worsened on Sunday so pt stopped her eliquis on her own. Pt has been on buttermaker antibiotics 8-10 weeks worthfor another UTI. Pt [...] forward to CT. Please advise, thank you! UNITY OUTREACH ADVOCATE * Telephone Encounter - Lynnette Amin - 03/13/2023 3:41 PM CST Pt returned call for Carol. Contact:[phone] UNITY OUTREACH ADVOCATE * Telephone Encounter - Carol Darnell RN - 03/13/2023 3:27 PM COMMUNITY OUTREACH ADVOCATE LM on requesting callback to discuss-I need to speak with pt when she calls back. UNITY OUTREACH ADVOCATE * Telephone Encounter - Brielle Alba - [...] to please leave details on her voicemail. UNITY OUTREACH ADVOCATE * Telephone Encounter - Carol Darnell RN - 03/13/2023 2:18 PM COMMUNITY OUTREACH ADVOCATE LM on VM requesting callback. UNITY OUTREACH ADVOCATE * Telephone Encounter - Lynnette Amin - 03/13/2023 1:55 PM CST Pt states upcoming biopsy was canceled. Pt requesting a call back to discuss id she should still continue to hold Eliquis or not. Contact:[phone] UNITY OUTREACH ADVOCATE * Telephone Encounter - Carol Darnell RN - 03/13/2023 10:25 AM COMMUNITY OUTREACH ADVOCATE Pt called and spoke with AD after [...] the eliquis will likely not be held buttermaker and is not the cause of her bleeding but we need to find the source and then we can give recommendations going forward. UNITY OUTREACH ADVOCATE documented in this encounter Plan of Treatment Not on file documented as of this encounter Visit Diagnoses Not on filedocumented in this encounter Care Teams Bricklayer Paving Brick Relationship Specialty Start Date End Date Phan Garvin MD PCP - General Family Medicine 09/14/22 Phan Garvin MD Family Medicine 09/14/22 documented as of this encounter
--- OUTSIDE RECORDS SUMMARY | 2024-03-15 17:51 | XMS_ITS | Encounter Summary ---
Author Organization [facility] Address [address] [place] [address] Phone Care Team Providers Care Cementer Machine Name Role Phone Phan Garvin MD Primary Care Provider [phone] Phan Garvin MD Unavailable [phone] Encounter Details Date Type Department Care Team (Late st Contact Info) Description 03/20/2023 Telephone [facility] Obstetrics and Gynecology [address] [facility] 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 Patient states that she has not used the VET or coconut oil for the last 3 weeks. Advised patient that VET twice weekly is part of her UTI prevention. She will begin using estrace again. DREN'S ZOO CARETAKER documented in this encounter Plan of Treatment Not on file documented as of this encounter Visit Diagnoses Not on filedocumented in this encounter Care Teams Cementer Machine Relationship Specialty Start Date End Date Phan Garvin MD PCP - General Family Medicine 09/14/22 Phan Garvin MD Family Medicine 09/14/22 documented as of this encounter
--- OUTSIDE RECORDS SUMMARY | 2024-03-15 17:51 | XMS_ITS | Encounter Summary ---
Author Organization [facility] Healthcare Address [address] [facility] [address] [place] [address] Care Team Providers Care Welcome Desk Agent Name Role Phone Phan Garvin MD Primary Care Provider [phone] Phan Garvin MD Unavailable [phone] Reason for Visit * Auth/Cert (Routine) Specialty [...] Expiration Date Visits Re quested Visits Authorized [id number] 1 1 Encounter Details Date Type Department Care Team (Late st Contact Info) Description 04/11/2023 2:32 PM COST CONTROL ANALYST Anesthesia Event 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 CONTROL ANALYST * Anesthesia Procedure Notes - Sneha Ramirez CRNA - 04/11/2023 2:45 PM CSTAssociated Order(s): Airway Airway Patient location: OR Indications for airway management: anesthesia Difficult airway: no Staff: Supervising provider: Ld Bailey MD Placed by: TOWER WATCHMAN: Sneha Ramirez CRNA Emergent airway documentation: Risks [...] of attempts: 1 Ventilation between attempts: BVM CONTROL ANALYST * Anesthesia Preprocedure Evaluation - Ld Bailey MD - 04/05/2023 8:36 AM CST Images from the original note were not included. [facility] for Preoperative Assessment and Planning Preoperative Evaluation Record Evaluation type/location: TPAP from [facility] Planned procedure site: [facility] PVT OR (Pod 1) Date: 04/05/23 NOTE: [...] days). Pertinent negatives: hypertension ; CAD ; ID ; CABG ; valve replacement; pacemaker/ICD; PVD; DVT/PE; negative for CHF; drug-eluting stent(s); bare metal stent(s) and unknown stent(s) type Comments: Follows with Dr Jennings edge brusher Respiratory Pertinent negatives: COPD; asthma; sleep apnea [...] by telephone and in writing sent via [employer] mail. Patient verbalized understanding of instructions. Blood [...] therapy when feasible in the postoperative period. Refinder by [employer] staffmessage sent to surgeon's office. Please call the CPAP chart room clinician ([phone]) with any questions. >Patient was recently hospitalized 02/2023 for afib. Per cardiology [facility] telephone encounter, I reviewed Dr. Jennings's last [...] further testing is required prior to procedure. Refinder by [employer] message sent to surgeons office. TPAP assessment complete Preoperative evaluation performed by Simone Millard NP on 04/05/23 at 8:51 AM . Patient Active Problem List Diagnosis Date Noted Other thrombophilia ([facility]) 02/20/2023 Lesion of bladder 02/09/2023 Recurrent UTI 01/08/2023 Complicated UTI (urinary tract infection) 01/08/2023 Vaginal atrophy 01/08/2023 Pelvic floor dysfunction in female 01/08/2023 History of pelvic surgery 01/08/2023 Diarrhea 09/28/2022 Diverticulitis 09/28/2022 Anemia 09/28/2022 Paroxysmal atrial fibrillation ([facility]) ([facility]) 08/15/2022 Past Medical History: Diagnosis Date Atrial fibrillation ([facility]) ([facility]) 03/01/2022 Hypercholesteremia Osteoporosis Recurrent UTI [...] -- -- -- Jag Robbins MD vit C,G-Dh-oahzv-lutein-zeaxan (PreserVision AREDS-2) 250-90-40-1 mg capsule 03/29/2023 -- [...] tablet phenazopyridine (PYRIDIUM) 100 mg tablet vit C,W-Zi-bnush-lutein-zeaxan (PreserVision AREDS-2) 250-90-40-1 mg capsule zinc 50 [...] Medication protocol when under care of a TOWER WATCHMAN Planned anesthesia: General Team communication plan: LMA Induction: Induction: intravenous. Consent and Attending signature: I and/or my designee have discussed the anesthesia plan, benefits, possible alternatives, parental presence at time of induction (if indicated), and clinically relevant risks that may include dental injury, unintentional awareness, and/or other complications. The patient and/or parent/legal guardian understand, and agree to proceed. All questions answered. CONTROL ANALYST CONTROL ANALYST documented in this encounter Plan of Treatment Not on file documented as of this encounter Procedures Procedure Name Priority Date/Time Associated Diagnosis Comments MI AN PROCEDURE PLACEHOLDER Routine 04/11/2023 2:45 PM COST CONTROL ANALYST documented in this encounter Results * MI AN PROCEDURE PLACEHOLDER (04/11/2023 2:45 PM COST CONTROL ANALYST) Sneha Zuniga CRNA - 04/11/2023 2:45 PM COST CONTROL ANALYST Sneha Ramirez CRNA ? 04/11/2023 ??2:45 PM Airway Patient location: OR Indications for airway management: anesthesia Difficult airway: no Staff: Supervising provider: Ld Bailey MD Placed by: TOWER WATCHMAN: Sneha Ramirez CRNA Emergent airway documentation: Risks [...] Prophylaxis, SurgicalIndications:Prophylaxis, Surgical Given 04/11/2023 2:45 PM COST CONTROL ANALYST 2,000 mg dexAMETHasone (DECADRON) 4 mg/mL injection intravenous, Administer over 2 Minutes, As needed, Starting on Sun04/11/23 at 1445, Anesthesia Intra-op Given 04/11/2023 2:45 PM COST CONTROL ANALYST 4 mg fentaNYL (SUBLIMAZE) preservative free injection intravenous, As needed, Starting on Sun04/11/23 at 1445, Anesthesia Intra-op Given 04/11/2023 3:40 PM COST CONTROL ANALYST 50 mcg Given 04/11/2023 2:45 PM COST CONTROL ANALYST 25 mcg Given 04/11/2023 2:41 PM COST CONTROL ANALYST 25 mcg glycopyrrolate (ROBINUL) injection intravenous, Administer over 1 Minutes, As needed, Starting on Sun04/11/23 at 1452, Anesthesia Intra-op Given 04/11/2023 2:52 PM COST CONTROL ANALYST 0.2 mg Lactated Ringer's (LR) infusion 30 mL/hr, intravenous, Continuous, Starting on Sun04/11/23 at 1345 Rate/Dose Verify 04/11/2023 2:32 PM COST CONTROL ANALYST 30 mL/hr New Bag 04/11/2023 1:40 PM COST CONTROL ANALYST 30 mL/hr 30 mL/hr lidocaine (cardiac) (XYLOCAINE) preservative free injection intravenous, As needed, Starting on Sun04/11/23 at 1443, Anesthesia Intra-op, Indications: Ventricular ArrhythmiasIndications:Ventricular Arrhythmias Given 04/11/2023 2: 43 PM COST CONTROL ANALYST 40 mg ondansetron (ZOFRAN) injection intravenous, Administer over 2 Minutes, As needed, Starting on Sun04/11/23 at 1445, Anesthesia Intra-op Given 04/11/2023 2:45 PM COST CONTROL ANALYST 4 mg propofoL (DIPRIVAN) 10 mg/mL IV intravenous, As needed, Starting on Sun04/11/23 at 1443, Anesthesia Intra-op Bolus 04/11/2023 2:44 PM COST CONTROL ANALYST 20 mg New Bag 04/11/2023 2:43 PM COST CONTROL ANALYST 70 mg documented in this encounter Care Teams Welcome Desk Agent Relationship Specialty Start Date End Date Phan Garvin MD PCP - General Family Medicine 09/14/22 Phan Garvin MD Family Medicine 09/14/22 documented as of this encounter
--- OUTSIDE RECORDS SUMMARY | 2024-03-15 17:51 | XMS_ITS | Encounter Summary ---
Author Organization [facility] Address [address] [place] [address] Phone Care Team Providers Care Repairer Auto Clocks Name Role Phone Phan Garvin MD Primary Care Provider [phone] Phan Garvin MD Unavailable [phone] Encounter Details Date Type Department Care Team (Late st Contact Info) Description 03/15/2023 Telephone [facility] Obstetrics and Gynecology [address] 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 Cardiac Clearance has been received and scanned into media tab. Surgery scheduled 04/11/23. Patient c/o UTI symptoms and advised to go to urgentcare in [place]. STRIAL CLEANER * Telephone Encounter - Maria Esther Brown RN - 03/15/2023 10:21 AM INDUSTRIAL CLEANER Received call from patient asking when bladder biopsy & cystoscopy will be rescheduled in OR asdiscussed during her 02/09/23 cystourethroscopy? Last office visit for CISC teaching 03/13/23. UaCX at that time was no growth. UA showing 3+ blood. She is performing CISC teaching 2X daily. Stated that she stopped Eliquis on 03/11/23 and has not visualized blood in urine. Spoke to her exploration driller and she is now taking baby ASA daily. Her urine is clear today. She completed her 6 weeks of nitrofurantoin. STRIAL CLEANER documented in this encounter Plan of Treatment Not on file documented as of this encounter Visit Diagnoses Not on filedocumented in this encounter Care Teams Repairer Auto Clocks Relationship Specialty Start Date End Date Phan Garvin MD PCP - General Family Medicine 09/14/22 Phan Garvin MD Family Medicine 09/14/22 documented as of this encounter
--- OUTSIDE RECORDS SUMMARY | 2024-03-15 17:51 | XMS_ITS | Encounter Summary ---
Author Organization [facility] Healthcare Address [address] [place] [address] Care Team Providers Care Garbage Collector Name Role Phone Phan Garvin MD Primary Care Provider [phone] Phan Garvin MD Unavailable [phone] Encounter Details Date Type Department Care Team (Latest Contact Info) Description 03/13/2023 12:48 PM PRODUCTION SORTER - 03/13/2023 11:59 PM PRODUCTION SORTER Hospital Encounter [place] [id number] Recurrent UTI; Lesion of bladder Discharge Disposition: [...] on file Legal Sex Female 7:11 PM PRODUCTION SORTER Gender Identity Not on file Sexual Orientation [...] rosuvastatin (CRESTOR) 10 mg tablet 09/24/2019 vit C,X-Ph-bzchq-lutei n-zeaxan (PreserVision AREDS-2) 250-90-40-1 mg capsuleIndications :eye [...] Comments URINE CULTURE Routine 03/13/2023 4:26 PM PRODUCTION SORTER URINALYSIS AND REFLEX TO MICROSCOPIC AND CULTURE Routine 03/13/2023 12:48 PM PRODUCTION SORTER Recurrent UTI Lesion of bladder URINALYSIS, MICROSCOPIC ONLY Routine 03/13/2023 12:48 PM PRODUCTION SORTER Recurrent UTI Lesion of bladder documented in this encounter Results * Urine culture Urine, in and out catheter (03/13/2023 4:26 PM PRODUCTION SORTER) Report Final Report: No growth [facility] Urine, in and out catheter 03/13/2023 4:26 PM PRODUCTION SORTER 03/13/2023 6:13 PM PRODUCTION SORTER Narrative [facility] - 03/14/2023 8:39 PM PRODUCTION SORTER Urine culture reflexed based upon urinalysis results. Testing performed by [facility] ([phone]) Poncho Melgar MD LAB MICROBIOLOGY - GENERAL ORDERABLES Final Result Performing Organization Address [facility] Co de Phone Number [facility] [place] [address] * (ABNORMAL) Urinalysis, microscopic only (03/13/2023 12:48 PM PRODUCTION SORTER) Pathologist [facility] WBC, ur >50(A) 0 - 5 /HPF [facility] RBC, ur >50(A) 0 - 2 /HPF [facility] Epithelial cells, squamous, ur 1-5 0 - 5 /HPF [facility] Bacteria, ur Trace(A) [facility] Mucous, ur Present(A) [facility] Culture Reflex Comment Reflex to urine culture will be performed. [facility] Urine, in and out catheter 03/13/2023 12:48 PM PRODUCTION SORTER 03/13/2023 3:40 PM PRODUCTION SORTER Poncho Melgar MD LAB URINE ORDERABLES Final Result Performing Organization Address [facility] Co de Phone Number [facility] [place] [address] * (ABNORMAL) Urinalysis reflex to microscopic and culture Urine, in and out catheter (03/13/2023 12:48 PM PRODUCTION SORTER) Pathologist [facility] Color, ur Yellow Yellow [facility] Clarity, ur Cloudy(A) Clear [facility] Specific gravity, ur 1.019 1.003 - 1.030 [facility] pH, urine 5.5 [facility] Comment: Interpretive Data ? Urine pH is affected by diet, medications, systemic acid-base disturbances, and renal tubular function. ??pH may affect urinary stone formation. ??For example, urine pH below 6.0 may help reduce the tendency for calcium phosphate stones and pH greater than 6.0 may reduce the tendency for uric acid stone formation. Source: [facility] [employer] Current Interpretive Data was last revised on 2017 Protein, ur ql 1+(A) Negative [facility] Glucose, ur ql Negative Negative [facility] Ketones, ur Negative Negative [facility] Bilirubin, ur Negative Negative [facility] Blood, ur 3+(A) Negative [facility] Urobilinogen, ur <2.0 <2.0 mg/dL [facility] Nitrite, ur Negative Negative [facility] Leukocyte esterase, ur 2+(A) Negative [facility] UA reflex comment Reflex to microscopic UA will be performed. [facility] Urine, in and out catheter 03/13/2023 12:48 PM PRODUCTION SORTER 03/13/2023 3:40 PM PRODUCTION SORTER us Poncho Melgar MD LAB MICROBIOLOGY - GENERAL ORDERABLES Final Result [facility] [place] [address] documented in this encounter Visit Diagnoses Diagnosis Recurrent UTI Urinary tract infection, site not specified Lesion of bladder Unspecified disorder of bladder documented in this encounter Care Teams Garbage Collector Relationship Specialty Start Date End Date Phan Garvin MD PCP - General Family Medicine 09/14/22 Phan Garvin MD Family Medicine 09/14/22 documented as of this encounter
--- OUTSIDE RECORDS SUMMARY | 2024-03-15 17:51 | XMS_ITS | Encounter Summary ---
Author Organization [facility] Healthcare Address [address] [place] [address] Care Team Providers Care Mutuel Machine Operator Name Role Phone Phan Garvin MD Primary Care Provider [phone] Phan Garvin MD Unavailable [phone] Reason for Visit * Reason Comments Follow-up Encounter Details Date Type Department Care Team (Latest Contact Info) Description 02/20/2023 10:30 AM BATT PACKER Office Visit [facility] Medical Group Cardiology [address] [place] [address] Siddharth Jennings MD [address] [place] [address] Paroxysmal atrial fibrillation (CMS/HCC) (HCC) [...] on file Legal Sex Female 7:11 PM BATT PACKER Gender Identity Not on file Sexual Orientation Not on file 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 Not on file Not on file documented as of this encounter Last Filed Vital Signs Vital Sign Reading Time Taken Comments Blood Pressure 146/82 02/20/2023 10:34 AM BATT PACKER Pulse 84 02/20/2023 10:34 AM BATT PACKER Temperature - - Respiratory Rate - - Oxygen Saturation 96% 02/20/2023 10:34 AM BATT PACKER Inhaled Oxygen Concentration - - Weight 72.6 kg (160 lb) 02/20/2023 10:34 AM BATT PACKER Height 160 cm (5' 3 ) 02/20/2023 10:34 AM BATT PACKER Body Mass Index 28.34 02/20/2023 10:34 AM BATT PACKER documented in this encounter Ordered Prescriptions Prescription [...] apatient that I saw in consultation at [facility] in February of 2022 when [...] She went to the emergency room at [facility] and was given some intravenous [...] that. She is planning to travel to [place] for family visit for the upcoming holidays. [...] on 01/08/2023), Disp: , Rfl: ??? vit C,S-Cg-oqinq-lutein-zeaxan (PreserVision AREDS-2) 250-90-40-1 mg capsule, Take by [...] with me for her to travel to [place] for [place] Follow-up here 6 months or p.r.n. Siddharth Jennings MD PACKER documented in this encounter Plan of Treatment [...] 03/29/2023 added in this encounter Care Teams Mutuel Machine Operator Relationship Specialty Start Date End Date Phan Garvin MD PCP - General Family Medicine 09/14/22 Phan Garvin MD Family Medicine 09/14/22 documented as of this encounter
--- OUTSIDE RECORDS SUMMARY | 2024-03-15 17:51 | XMS_ITS | Encounter Summary ---
Author Organization [facility] Healthcare Address [address] [place] [address] Care Team Providers Care Beef Ribber Name Role Phone Phan Garvin MD Primary Care Provider [phone] Phan Garvin MD Unavailable [phone] Encounter Details Date Type Department Care Team (Late st Contact Info) Description 03/02/2023 Telephone [facility] Medical Group Cardiology [address] [place] [id number] Isidro Conde MD [address] [place] [id number] Social History Tobacco Use Types Packs/Day Years Used Date Smoking Tobacco: Never Alcohol Use Standard Drinks/Week Comments Yes 0 (1 standard drink = 0.6 oz pur e alcohol) Personal Safety Answer Date Recorded Getting School Help Needed Not on file 02/19 Comments No Sex and Gender Information Value Date Recorded Sex Assigned at Not on file Legal Sex Female 7:11 PM ART DEALER Gender Identity Not on file Sexual Orientation Not on file 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 He advised pt to go to ED. LMOV for pt requesting callback to confirm if she did go to the ED and see how she is feeling today. Will fwd to Dr. Jennings as LAURI DEALER documented in this encounter Plan of Treatment Not on file documented as of this encounter Visit Diagnoses Not on filedocumented in this encounter Care Teams Beef Ribber Relationship Specialty Start Date End Date Phan Garvin MD PCP - General Family Medicine 09/14/22 Phan Garvin MD Family Medicine 09/14/22 documented as of this encounter
--- OUTSIDE RECORDS SUMMARY | 2024-03-15 17:51 | XMS_ITS | Encounter Summary ---
Author Organization [facility] Address [address] [place] [address] Phone Care Team Providers Care Attending Radiologist Name Role Phone Phan Garvin MD Primary Care Provider [phone] Phan Garvin MD Unavailable [phone] Reason for Referral * Diagnostic Imaging (Routine) - Closed Specialty Diagnoses / Procedures Referred By Contac t Referred To Contact Diagnoses Pelvic mass Procedures US Transvaginal Poncho Melgar MD [address] [place] [address] Phone: tel: fax: [facility] (All Locations) Referral ID Status Reason Start Date Expiration Date Visits Re quested Visits Authorized [id number] Closed 04/12/2023 05/11/2024 1 1 IC ADDRESS SERVICER Reason for Visit * Reason Onset Date Comments Post-Op Call 04/12/2023 Encounter Details Date Type Department Care Team (Late st Contact Info) Description 04/12/2023 Telephone [facility] Obstetrics and Gynecology [facility] 7th Floor [address] [place] [address] Maria Esther Brown RN Post-Op [...] on file Legal Sex Female 7:11 PM PUBLIC ADDRESS SERVICER Gender Identity Not on file Sexual Orientation Not on file 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 Not on file Not on file documented as of this encounter Miscellaneous Notes * Telephone Encounter - Maria Esther Brown RN - 04/12/2023 12:10 PM PUBLIC ADDRESS SERVICER Post Operative Phone Call Date: 04/12/23 Procedure: [...] 10 am Renal ultrasound: 05/07/23 @ 11:15 IC ADDRESS SERVICER * Telephone Encounter - Maria Esther Brown RN - 04/12/2023 12:01 PM PUBLIC ADDRESS SERVICER ----- Message from Tyler Mcelroy MD sent at 04/11/2023 3:46 PM PUBLIC ADDRESS SERVICER ----- Regarding: postop pt Hi everyone, We [...] Thank you so much, Tyler Mcelroy MD IC ADDRESS SERVICER documented in this encounter Plan of Treatment Not on file documented as of this encounter Results * US Transvaginal (05/10/2023 9:39 AM PUBLIC ADDRESS SERVICER) Cul de Sac No free fluid visualized VIEWPOINT Anatomical Region Laterality Modality Pelvis N/A Ultrasound 05/10/2023 9:40 AM PUBLIC ADDRESS SERVICER Impressions 05/10/2023 3:29 PM PUBLIC ADDRESS SERVICER 1- Surgically absent uterus.2- Non-visualization of either [...] site documented in this encounter Care Teams Attending Radiologist Relationship Specialty Start Date End Date Phan Garvin MD PCP - General Family Medicine 09/14/22 Phan Garvin MD Family Medicine 09/14/22 documented as of this encounter
--- OUTSIDE RECORDS SUMMARY | 2024-03-15 17:51 | XMS_ITS | Encounter Summary ---
Author Organization [facility] Address [address] [place] [address] Phone Care Team Providers Care Surgery Teacher Name Role Phone Phan Garvin MD Primary Care Provider [phone] Phan Garvin MD Unavailable [phone] Encounter Details Date Type Department Care Team (Late st Contact Info) Description 03/06/2023 Telephone [facility] Obstetrics and Gynecology [address] [facility] 7th Floor [address] [place] [address] Araceli Anderson RN Social History [...] on file Legal Sex Female 7:11 PM SURVEILLANCE TECHNICIAN Gender Identity Not on file Sexual Orientation Not on file 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 She [...] soonest she could get scheduled with her executive director contract shop was 04/18/23. She is trying to find a ride for her appointment on 03/13 for [facility] teaching. She had [facility] fax her records to us. She also is asking for a letter to be send to [facility] to excuse her from Jury duty. EILLANCE TECHNICIAN documented in this encounter Plan of Treatment Not on file documented as of this encounter Visit Diagnoses Not on filedocumented in this encounter Care Teams Surgery Teacher Relationship Specialty Start Date End Date Phan Garvin MD PCP - General Family Medicine 09/14/22 Phan Garvin MD Family Medicine 09/14/22 documented as of this encounter
--- OUTSIDE RECORDS SUMMARY | 2024-03-15 17:51 | XMS_ITS | Encounter Summary ---
Author Organization [facility] Address [address] [place] [address] Phone Care Team Providers Care Machine Zipper Trimmer Name Role Phone Phan Garvin MD Primary Care Provider [phone] Phan Garvin MD Unavailable [phone] Reason for Visit * Reason Onset Date Comments Scheduling Appointments 02/14/2023 Encounter Details Date Type Department Care Team (Late st Contact Info) Description 02/14/2023 Telephone [facility] Obstetrics and Gynecology 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 She will let us know after her biopsy when she can come back for a RNvisit. LSIOR CUTTER * Telephone Encounter - Araceli Anderson RN - 02/15/2023 2:10 PM EXCELSIOR CUTTER Patient left VM instructing our office to leave a detailed message of Dr. Melgar's instructions. Left message that he would like her to learn how to perform CISC and to call our master scheduler to make a RN visit appointment. If she does not want to learn this we will see her next for her OR cysto on 03/14/23. LSIOR CUTTER * Telephone Encounter - Araceli Anderson RN - 02/14/2023 4:22 PM EXCELSIOR CUTTER ----- Message from Poncho Melgar MD sent at 02/09/2023 12:59 PM EXCELSIOR CUTTER ----- Please check to see if pt is performing CISC. If not, please have her come in and learn. LSIOR CUTTER documented in this encounter Plan of Treatment Not on file documented as of this encounter Visit Diagnoses Not on filedocumented in this encounter Care Teams Machine Zipper Trimmer Relationship Specialty Start Date End Date Phan Garvin MD PCP - General Family Medicine 09/14/22 Phan Garvin MD Family Medicine 09/14/22 documented as of this encounter
--- OUTSIDE RECORDS SUMMARY | 2024-03-15 17:51 | XMS_ITS | Encounter Summary ---
Author Organization [facility] Address [address] [place] [address] Phone Care Team Providers Care Cat And Dog Bather Name Role Phone Phan Garvin MD Primary Care Provider [phone] Phan Garvin MD Unavailable [phone] Reason for Visit * Reason Onset Date Comments UTI/cefdinir 03/29/2023 Encounter Details Date Type Department Care Team (Late st Contact Info) Description 03/29/2023 Telephone [facility] Obstetrics and Gynecology [facility] Outpatient Health 7th Floor [address] [place] [address] Maria Esther Brown RN UTI/cefdinir [...] on file Legal Sex Female 7:11 PM CANT GANG SAWYER Gender Identity Not on file Sexual Orientation Not on file 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 Patient is in [place], [place] and went to urgent care. She was put on Cefdinir 300 mgBID. OR cystoscopy is scheduled 04/11/23. GANG SAWYER documented in this encounter Plan of Treatment Not on file documented as of this encounter Visit Diagnoses Not on filedocumented in this encounter Care Teams Cat And Dog Bather Relationship Specialty Start Date End Date Phan Garvin MD PCP - General Family Medicine 09/14/22 Phan Garvin MD Family Medicine 09/14/22 documented as of this encounter
--- OUTSIDE RECORDS SUMMARY | 2024-03-15 17:51 | XMS_ITS | Encounter Summary ---
Author Organization [facility] Address [address] [place] [address] Phone Care Team Providers Care Claim Benefit Specialist Name Role Phone Phan Garvin MD Primary Care Provider [phone] Phan Garvin MD Unavailable [phone] Encounter Details Date Type Department Care Team (Late st Contact Info) Description 04/13/2023 Telephone [facility] Obstetrics and Gynecology [address] [facility] Health 7th Floor [address] [place] [address] Maria Esther Brown, RN Social [...] on file Legal Sex Female 7:11 PM BRAND DIRECTOR Gender Identity Not on file Sexual [...] instructions to take keflex 500 mg BID. D DIRECTOR * Telephone Encounter - Maria Esther Brown RN - 04/13/2023 12:33 PM BRAND DIRECTOR Patient called back confused about 3 different antibiotics she has on hand. She was placed on Cefdinir while in [place] and after 3 days changed to Cipro X3 days. Informed to not take these meds. order Keflex X14 days at discharge. She will continue to take this Keflex 4X's day for 14 days. D DIRECTOR * Telephone Encounter - Maria Esther Brown [...] this be an anticipated symptom following surgery? D DIRECTOR documented in this encounter Plan of Treatment Not on file documented as of this encounter Visit Diagnoses Not on filedocumented in this encounter Care Teams Claim Benefit Specialist Relationship Specialty Start Date End Date Phan Garvin MD PCP - General Family Medicine 09/14/22 Phan Garvin MD Family Medicine 09/14/22 documented as of this encounter
--- OUTSIDE RECORDS SUMMARY | 2024-03-15 17:51 | XMS_ITS | Encounter Summary ---
Author Organization [facility] Address [address] [place] [address] Phone Care Team Providers Care Superintendent Maintenance Name Role Phone Phan Garvin MD Primary Care Provider [phone] Phan Garvin MD Unavailable [phone] Encounter Details Date Type Department Care Team (Late st Contact Info) Description 04/10/2023 Telephone [facility] Obstetrics and Gynecology [address] [facility] Health 7th Floor [address] [place] [address] Gissell Anaya, B.A. 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
--- OUTSIDE RECORDS SUMMARY | 2024-03-15 17:51 | XMS_ITS | Encounter Summary ---
Author Organization [facility] Address [address] [place] [address] Phone Care Team Providers Care Building Construction Superintendent Name Role Phone Phan Garvin MD Primary Care Provider [phone] Phan Garvin MD Unavailable [phone] Encounter Details Date Type Department Care Team (Late st Contact Info) Description 02/19/[address] 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 MING INSPECTOR * Telephone Encounter - Maria Esther Brown RN - 03/01/2023 11:00 AM INCOMING INSPECTOR Call received. Reviewed information regarding CISC teaching and [facility]. Pt will schedule with one of our RN's for CISC teaching. She completed her last dose of macrobid yesterday and has appt at [facility] on 03/02/23 for SHANNAN. MING INSPECTOR * Telephone Encounter - Maria Esther Brown RN - 03/01/2023 10:49 AM INCOMING INSPECTOR LMTC regarding home health/CISC teaching and if she was able to leave SHANNAN at [facility] on 02/28? MING INSPECTOR * Telephone Encounter - Maria Esther Brown RN - 02/22/2023 2:54 PM CST Call to [facility] ([phone]) and spoke with director of nurses, Pavithra. Theywould be unable to teach patient CISC unless the patient is home bound which she is not. Pt is presently in [place] on vacation. Left patient a message regarding this development and offered to schedule appt for CISC teaching with our Rns. MING INSPECTOR * Telephone Encounter - Maria Esther Brown RN - 02/20/2023 3:58 PM CST She would like to know if Dr. Melgar would approve of her learning CISC from an RN friend that works at [facility]? F) [phone] She would like to begin CISC 2-3X daily if Dr. Melgar is in agreement? Ok to send cath order to [address] [place] [address]? She feels that retaining urine is definitely the reason for her incontinence and she is ready to learn. Recently put on Eliquis BID for her A-Fib. MING INSPECTOR * Telephone Encounter - Maria Esther Brown RN - 02/20/2023 3:20 PM CST LMTC MING INSPECTOR * Telephone Encounter - Maria Esther Brown RN - 02/19/2023 4:12 PM CST Pt left lengthy voice message requesting that our office send order to [facility] for CISC teaching. She has an RN friend (Marielena Gunter) that would be able to teach her with an order. Would you approve [facility] order or prefer our RN's to teach? Also, she is going through 10-12 adult diapers per day and totally incontinent. Up multiple times during the night & would like to know if she can be prescribed medication for this? 02/09/23 UTI & put on macrobid X14 days. MING INSPECTOR documented in this encounter Plan of Treatment Not on file documented as of this encounter Visit Diagnoses Not on filedocumented in this encounter Care Teams Building Construction Superintendent Relationship Specialty Start Date End Date Phan Garvin MD PCP - General Family Medicine 09/14/22 Phan Garvin MD Family Medicine 09/14/22 documented as of this encounter
--- OUTSIDE RECORDS SUMMARY | 2024-03-15 17:51 | XMS_ITS | Encounter Summary ---
Author Organization [facility] Healthcare Address [address] [place] [address] Care Team Providers Care Associate Professor Of Communication Name Role Phone Phan Garvin MD Primary Care Provider [phone] Phan Garvin MD Unavailable [phone] Encounter Details Date Type Department Care Team (Late st Contact Info) Description 03/06/2023 Telephone [facility] Medical Group Cardiology [address] [address] Siddharth Jennings MD [address] [facility] [address] [place] [address] Social History Tobacco Use [...] on file Legal Sex Female 7:11 PM DISBURSEMENT CLERK Gender Identity Not on file Sexual Orientation Not on file 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 Advised pt to call pcp. URSEMENT CLERK * Telephone Encounter - Adriancristal Brielle - 03/06/2023 1:15 PM CST Pt has been requested for jury duty and would like a letter to excuse her of it. Please fax number [phone] and please fax before 03/19/2023. Call if there are any other questions. URSEMENT CLERK documented in this encounter Plan of Treatment Not on file documented as of this encounter Visit Diagnoses Not on filedocumented in this encounter Care Teams Associate Professor Of Communication Relationship Specialty Start Date End Date Phan Garvin MD PCP - General Family Medicine 09/14/22 Phan Garvin MD Family Medicine 09/14/22 documented as of this encounter
--- OUTSIDE RECORDS SUMMARY | 2024-03-15 17:51 | XMS_ITS | Encounter Summary ---
Author Organization [facility] Healthcare Address [address] [place] [address] Care Team Providers Care Sueding And Buffing Machine Operator Name Role Phone Phan Garvin MD Primary Care Provider [phone] Phan Garvin MD Unavailable [phone] Reason for Visit * Auth/Cert (Routine) Specialty Diagnoses / Procedures Referred By Contashley t Referred To Contact Diagnoses Complicated UTI (urinary tract infection) History of pelvic surgery Recurrent UTI Lesion of bladder Complicated UTI (urinary tract infection) [N39.0] History of pelvic surgery [Z98.890] Recurrent UTI [N39.0] Lesion of bladder [N32.9] Procedures [place] CYSTOURETHROSCOPY WITH BIOPSY CYSTOSCOPY BIOPSY BLADDER - CYSTOSCOPY and fulguration Referral ID Status Reason Start Date Expiration Date Visits Re quested Visits Authorized [id number] 1 1 Encounter Details Date Type Department Care Team (Late st Contact Info) Description 04/11/2023 3:10 PM GAS BURNER OPERATOR - 04/11/2023 4:55 PM GAS BURNER OPERATOR Surgery [facility] Operating Room [address] [place] [id number] Poncho Melgar MD [address] [facility] [address] [place] [address] CYSTOSCOPY Surgery Details Date/Time Status Location OR Service Patient Class Case Cl ass Case Type Trauma Case? 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 Not on file Not on file Not on file documented as of this encounter Last Filed Vital Signs Vital Sign Reading Time Taken Comments Blood Pressure 152/84 04/11/2023 4:40 PM GAS BURNER OPERATOR Pulse 60 04/11/2023 4:40 PM GAS BURNER OPERATOR Temperature 36.4 ??C (97.5 ??F) 04/11/2023 3:45 PM CS T Respiratory Rate 16 04/11/2023 4:40 PM GAS BURNER OPERATOR Oxygen Saturation 98% 04/11/2023 4:40 PM GAS BURNER OPERATOR Inhaled Oxygen Concentration - - Weight 75.3 kg (166 lb) 03/29/2023 2:10 PM GAS BURNER OPERATOR Height 160 cm (5' 3 ) 03/29/2023 2:10 PM GAS BURNER OPERATOR Body Mass Index 29.41 03/29/2023 2:10 PM GAS BURNER OPERATOR documented in this encounter Discharge Instructions * Discharge Instructions* Tyler Mcelroy MD - 04/11/2023 2:21 PM GAS BURNER OPERATOR Urogynecology Post-op Instructions and Recovery Please take [...] of the doctors from our office is bridge repair crew person 24 hours a day, seven days a [...] pelvic ultrasound to ensure this is normal. BURNER OPERATOR BURNER OPERATOR documented in this encounter Medications at Time [...] rosuvastatin (CRESTOR) 10 mg tablet 09/24/2019 vit C,N-Us-olqlc-lute in-zeaxan (PreserVision AREDS-2) 250-90-40-1 mg capsuleIndication s:eye [...] CYSTOSCOPY BIOPSY BLADDER - CYSTOSCOPY and fulguration BURNER OPERATOR Source Note - Poncho Melgar MD - 04/11/2023 2:08 PM GAS BURNER OPERATOR Chief Complaint: Recurrent UTI HPI: Maria A Jean is a 82 y.o. TOURIST AGENT female here for cystoscopy and possible bladder [...] She was previously seen by Urology at [facility] Urology (Dr. Butt), and remembers [...] Past Medical History: Diagnosis Date Atrial fibrillation ([facility]) ([facility]) 03/01/2022 Hypercholesteremia Osteoporosis Recurrent [...] Take After meals 6 tablet 0 vit C,Q-Sq-mhsqz-lutein-zeaxan (PreserVision AREDS-2) 250-90-40-1 mg capsule Take by [...] masses, no tenderness. Perineal Sensation: normal. Anal Hudson: present. Recent Results ASSESSMENT: Maria A Jean [...] was signed. She is to meet with [facility] for anesthesia counseling and consent. BURNER OPERATOR * Poncho Melgar MD - 04/11/2023 2:08 PM CST Chief Complaint: Recurrent UTI HPI: Maria A Jean is a 82 y.o. TOURIST AGENT female here for cystoscopy and possible bladder [...] She was previously seen by Urology at [facility] Urology (Dr. Butt), and remembers [...] Past Medical History: Diagnosis Date Atrial fibrillation ([facility]) ([facility]) 03/01/2022 Hypercholesteremia Osteoporosis Recurrent [...] Take After meals 6 tablet 0 vit C,B-An-wbxbb-lutein-zeaxan (PreserVision AREDS-2) 250-90-40-1 mg capsule Take by [...] masses, no tenderness. Perineal Sensation: normal. Anal Hudson: present. Recent Results ASSESSMENT: Maria A Jean [...] was signed. She is to meet with [facility] for anesthesia counseling and consent. BURNER OPERATOR documented in this encounter Miscellaneous Notes * Op Note - Poncho Melgar MD - 04/11/2023 3:10 PM CST SURGEON Poncho Melgar MD. PHARM TECH Tyler Mcelroy MD. PREOPERATIVE DIAGNOSIS Refractory recurrent urinary tract infections. Prior office cystoscopy due to poor visualization due to desquamation. Erythematous patches, can not rule out malignancy/dysplasia Neurogenic bladder POSTOPERATIVE DIAGNOSIS Same PROCEDURE Operative cystoscopy with biopsy x 5 sites and fulguration of biopsy sites Manual bladder irrigation with the Ellik pantograph setter ANESTHESIA LMA genearl . IV FLUID 700 [...] several times including with an Ellik bladder pantograph setter. The bladder was thoroughly surveyed with attempts [...] was present and performed the entire procedure. BURNER OPERATOR * Pre-Procedure Instructions - Simone Millard NP - 04/05/2023 8:22 AM CST [facility] The night before your surgery: * [...] Don't take on day of surgery vit C,S-Ex-jtmzk-lutein-zeaxan (PreserVision AREDS-2) 250-90-40-1 mg capsule Stop taking [...] with COVID-19. You test positive for COVID-19. BURNER OPERATOR * Pre-Procedure Instructions - Lisha Dennis RN [...] remove nail coverings, artificial nails and nail anguillan prior to the day of surgery. You should leave your valuables and any jewelry at home. No metal or piercings are allowed in the operating room. You should bring your insurance card, a photo ID (example: Poultry Dresser's License) and a method of payment for [...] Chart. If you are having surgery at [facility], please arrive on the day of [...] Pathway to Excellent Care by the followinglink: [email or web address] How To Prepare Your Skin [...] Remove nail coverings, artificial nails and nail anguillan. Place clean linens on your bed the [...] questions, please call the CPAP Staff at [phone], Sunday-Sunday 8am-4:30pm. All patients should read the below section: COVID 19 Updates & Visitor Policy: Please access [email or web address] for the most updated information. Information on [facility]: Please view [email or web address] (Patient & Visitor Information) for additional details regarding Advanced Directive forms, AWARE, directions, parking information, lodging, Internet access, dining and more. For MyChart information, to activate account or password recovery, please go to [email or web address] or call [phone] (toll-free: [phone]), Sun- Sunday 8am-5pm. Information for Suicide Prevention: National Suicide Prevention Lifeline (4-651- 201-SXOX (1069) orcall or text 186. Chat resources: [employer]umen. Surgery Times: For patients having surgery @ [facility] or [facility] ([facility]), if your surgeon's office has not notified you of your surgery time by NOON THE BUSINESS DAY BEFORE your surgery, please call [phone] and ask for your surgeon's office Dr Melgar. The [facility] Pre[facility] Planning (CPAP) does not provide arrival times for the day of surgery or provide the duration of surgery. This information is provided by your surgeon'soffice or by the center where you are having surgery. We appreciate your understanding. BURNER OPERATOR * Perioperative Nursing Note - Lisha Dennis [...] mouth 2 (two) times a day vit C,E-Aj-uowoa-lutein-zeaxan (PreserVision AREDS-2) 250-90-40-1 mg capsule Take 1 [...] Directive: Patient does not have advance directive Communication/Food Service Director Needs Communication Needs: Glasses, Hearing aide(s) Assistive Devices/DME: Eyeglasses Hearing - Right Ear: Hearing aid Hearing - Left Ear: Hearing aid Discharge Planning Type of Residence: Private residence Living Arrangements: Alone Support Systems: Children, Family members, Friends/neighbors Patient expects to be discharged to:: Private residence [employer] MANAGER NO BURNER OPERATOR documented in this encounter Plan of Treatment Not on file documented as of this encounter Procedures Procedure Name Priority Date/Time Associated Diagnosis Comments CYTOLOGY Routine 04/11/2023 3:45 PM GAS BURNER OPERATOR Complicated UTI (urinary tract infection) History of pelvic surgery Recurrent UTI Lesion of bladder SURGICAL PATHOLOGY Routine 04/11/2023 3: 19 PM GAS BURNER OPERATOR Complicated UTI (urinary tract infection) History of pelvic surgery Recurrent UTI Lesion of bladder URINE CULTURE Routine 04/11/2023 3:02 PM GAS BURNER OPERATOR BIOPSY BLADDER - CYSTOSCOPY 04/11/2023 2:36 PM GAS BURNER OPERATOR Complicated UTI (urinary tract infection) History of pelvic surgery Recurrent UTI Lesion of bladder Case Notes 03/07@1300- Patient in AFIB ??will reschedule later per Gissell via case msg.EF CYSTOSCOPY 04/11/2023 2:36 PM GAS BURNER OPERATOR Complicated UTI (urinary tract infection) History of pelvic surgery Recurrent UTI Lesion of bladder Case Notes 03/07@1300- Patient in AFIB ??will reschedule later per Gissell via case msg.EF DIFFERENTIAL AUTO STAT 04/11/2023 2:0 0 PM GAS BURNER OPERATOR CBC WITH AUTO DIFFERENTIAL STAT 04/11/2023 2:00 PM GAS BURNER OPERATOR TYPE AND SCREEN STAT 04/11/2023 2:00 PM GAS BURNER OPERATOR documented in this encounter Results * Cytology (04/11/2023 3:45 PM GAS BURNER OPERATOR) Fluid (Urine, catherized (Cytology)) 04/11/2023 3:45 PM GAS BURNER OPERATOR Narrative PATHOLOGY [facility] - 04/13/2023 3:32 PM GAS BURNER OPERATOR EPIC results best viewed via link to PDF [facility] Lara Gallo [facility] [place] [address] Note to Patients: This report may contain [...] Gender: ??F : ??1940 (Age: 82) Address: ??[address] [place] [id number] Hospital #: ??[id number] Taken:04/11/2023 Received:04/11/2023 Reported: 04/13/2023 Patient Type: [facility] [...] Surgical Pathology and Flow Cytometry Departments at [facility] as part of an ongoing quality specialist program and in compliance with federally [...] Surgical Pathology and Flow Cytometry Departments of [facility]. ??It has not been cleared or approved by the U. S. Food and Drug Administration. us Poncho Melgar MD LAB CYTOLOGY ORDERABLES Fin al Result PATHOLOGY [facility] 3rd Floor [place], [place] [phone] * Surgical pathology (04/11/2023 3:19 PM GAS BURNER OPERATOR) Tissue (Bladder, biopsy) 04/11/2023 3:19 PM GAS BURNER OPERATOR Narrative PATHOLOGY [facility] - 04/12/2023 2:09 PM GAS BURNER OPERATOR EPIC results best viewed via link to PDF [facility] [place] [address] Note to Patients: This report may contain [...] Gender: ??F : ??1940 (Age: 82) Address: ??[address] [place] [address] ??[id number] Hospital #: ??[id number] Taken:04/11/2023 Received:04/11/2023 Reported: 04/12/2023 Patient Type: [facility] SDS ?? Service: Surgery Location: [facility] OR POD1 Physician(s): ??Poncho Melgar M.D. Diagnosis: [...] Surgical Pathology and Flow Cytometry Departments at [facility] as part of an ongoing quality specialist program and in compliance with federally [...] Surgical Pathology and Flow Cytometry Departments of [facility]. ??It has not been cleared or approved by the U. S. Food and Drug Administration. IMAGES AND SCANNED DOCUMENTS, IF INCLUDED, ONLY VIEWABLE IN PDF VERSION OF REPORT us Poncho Melgar MD LAB PATHOLOGY ORDERABLES Fi nal Result PATHOLOGY [facility] 3rd Floor [place], [place] [phone] * Urine culture Urine, bladder (04/11/2023 3:02 PM GAS BURNER OPERATOR) Report Final Report: Less than 100,000 colonies/mL (clinically insignificant growth based on current clinical standards) [facility] Organism (CLINICALLY INSIGNIFICANT GROWTH [facility] Urine, bladder 04/11/2023 3: 02 PM GAS BURNER OPERATOR 04/11/2023 4:52 PM GAS BURNER OPERATOR [facility]ative [facility] - 04/12/2023 7:01 PM GAS BURNER OPERATOR Bladder Urine for culture Indications for Culture:->Urology patient Specimen received in a sterile container. Specimen collected in the operating room. Testing performed by [facility] Microbiology Laboratory ([phone]) us Poncho Melgar MD LAB MICROBIOLOGY - GENERAL ORDERABLES Final Result [facility] [place] [address] * Differential, auto (04/11/2023 2:00 PM GAS BURNER OPERATOR) Neutrophil abs 2.5 1.5 - 6.5 K/cumm [facility] Imm gran abs 0.0 0.0 - 0.1 K/cumm [facility] Lymphocyte abs 2.5 0.8 - 3.3 K/cumm [facility] Monocyte abs 0.6 0.2 - 0.8 K/cumm [facility] Eosinophil abs 0.1 0.0 - 0.5 K/cumm [facility] Basophil abs 0.1 0.0 - 0.1 K/cumm [facility] Neutrophil pct 42.8 % [facility] Comment: Interpretive Data Percent cell count reference ranges are not reported, since discordance with absolute values may lead to misinterpretation of CBC data. Current Interpretive Data was last revised on 2017. Imm gran pct 0.3 % [facility] Comment: Interpretive Data Percent cell count reference ranges are not reported, since discordance with absolute values may lead to misinterpretation of CBC data. Current Interpretive Data was last revised on 2017. Lymphocyte pct 43.4 % [facility] Comment: Interpretive Data Percent cell count reference ranges are not reported, since discordance with absolute values may lead to misinterpretation of CBC data. Current Interpretive Data was last revised on 2017. Monocyte pct 10.9 % [facility] Comment: Interpretive Data Percent cell count reference ranges are not reported, since discordance with absolute values may lead to misinterpretation of CBC data. Current Interpretive Data was last revised on 2017. Eosinophil pct 1.7 % [facility] Comment: Interpretive Data Percent cell count reference ranges are not reported, since discordance with absolute values may lead to misinterpretation of CBC data. Current Interpretive Data was last revised on 2017. Basophil pct 0.9 % [facility] Comment: Interpretive Data Percent cell count reference ranges are not reported, since discordance with absolute values may lead to misinterpretation of CBC data. Current Interpretive Data was last revised on 2017. Blood 04/11/2023 2:00 PM GAS BURNER OPERATOR 04/11/2023 2:17 PM GAS BURNER OPERATOR us Simone Millard NP LAB BLOOD ORDERABLES Final Result [facility] [place] [address] * (ABNORMAL) CBC with auto differential (04/11/2023 2:00 PM GAS BURNER OPERATOR) WBC 5.8 3.8 - 9.9 K/cumm [facility] Hgb 12.2 11.9 - 15.5 g/dL [facility] Hct 36.5 35.6 - 45.5 % [facility] Plt 335 150 - 400 K/cumm [facility] MPV 12.5(H) 9.1 - 12.3 fL [facility] RBC 4.06 3.90 - 5.20 M/cumm [facility] MCV 89.9 81.3 - 96.4 fL [facility] MCH 30.0 27.1 - 33.3 pg [facility] MCHC 33.4 32.3 - 35.7 g/dL [facility] RDW CV 14.0 11.1 - 14.9 % [facility] RDW SD 46.0 35.7 - 48.1 fL [facility] NRBC abs 0.00 0.00 - 0.01 K/cumm [facility] Blood 04/11/2023 2:00 PM GAS BURNER OPERATOR 04/11/2023 2:17 PM GAS BURNER OPERATOR Simone Millard NP LAB BLOOD ORDERABLES Final Result Performing Organization Address [facility] Co de Phone Number [facility] Department [place] [address] * Type and screen (04/11/2023 2:00 PM GAS BURNER OPERATOR) ABO Rh O Positive Alejandra, indirect Negative [facility] Blood 04/11/2023 2:00 PM GAS BURNER OPERATOR 04/11/2023 2:13 PM GAS BURNER OPERATOR Narrative [facility] - 04/11/2023 3:41 PM GAS BURNER OPERATOR Has the patient had Daratumumab or Isatuximab in the past 6 months?->Unknown Simone Millard NP LAB BLOOD BANK TEST ORDERAB LES Final Result Performing Organization Address [facility] Co de Phone Number [facility] Department [place] [address] documented in this encounter Visit Diagnoses Diagnosis [...] AnalgesiaIndications:Pre-Emp tive Analgesia Given 04/11/2023 1:39 PM GAS BURNER OPERATOR 1,000 mg Carrier Fluids for Secondary Infusion [...] more., Indications: PainIndications:Pain Given 04/11/2023 4:00 PM GAS BURNER OPERATOR 25 mcg gabapentin (NEURONTIN) capsule 300 mg 300 mg, oral, Once, On Sun04/11/23 at 1345, For 1 dose, Pre-Op, Indications: Pre-Emptive AnalgesiaIndications:Pre-Emp tive Analgesia Given 04/11/2023 1:39 PM GAS BURNER OPERATOR 300 mg haloperidol (HALDOL) injection 1 mg 1 mg, intravenous, Once as needed, nausea, vomiting, Starting on Sun04/11/23 at 1540, For 1 dose, Phase I, If nausea/vomiting not relieved by ondansetron within 30 minutes or if ondansetron has been given within the last 6 hours. Given 04/11/2023 4:00 PM GAS BURNER OPERATOR 1 mg Lactated Ringer's (LR) infusion 30 mL/hr, intravenous, Continuous, Starting on Sun04/11/23 at 1345, Pre-Op Lactated Ringer's (LR) infusion 30 mL/hr, intravenous, Continuous, Starting on Sun04/11/23 at 1345 Rate/Dose Verify 04/11/2023 2:32 PM GAS BURNER OPERATOR 30 mL/hr New Bag 04/11/2023 1:40 PM GAS BURNER OPERATOR 30 mL/hr 30 mL/hr Lactated Ringer's (LR) [...] at 1455, Intra-Op Given 04/11/2023 3:12 PM GAS BURNER OPERATOR 1,000 mL Other (Comment) Given 04/11/2023 2:55 PM GAS BURNER OPERATOR 1,000 mL Ot her (Comment) sterile water irrigation As needed, Starting on Sun04/11/23 at 1455, Intra-Op Given 04/11/2023 3:18 PM GAS BURNER OPERATOR 3,000 mL Surgical Site Given 04/11/2023 2:55 PM GAS BURNER OPERATOR 3,000 mL [place] rgical Site documented in [...] Recently Administered Medications Times are shown in GAS BURNER OPERATOR. Scheduled Medication Order 04/09/2023 04/10/2023 04/11/2023 acetaminophen [...] Analgesia 1339 (Given - Provid er: Rajni Wladrop RN) Continuous Medication Order 04/09/2023 04/10/2023 04/11/2023 [...] 04/11/2023 documented in this encounter Care Teams Sueding And Buffing Machine Operator Relationship Specialty Start Date End Date Phan Garvin MD PCP - General Family Medicine 09/14/22 Phan Garvin MD Family Medicine 09/14/22 documented as of this encounter
--- OUTSIDE RECORDS SUMMARY | 2024-03-15 17:51 | XMS_ITS | Encounter Summary ---
Author Organization [facility] Address [address] [place] [address] Phone Care Team Providers Care Mainframe Architect Name Role Phone Phan Garvin MD Primary Care Provider [phone] Phan Garvin MD Unavailable [phone] Encounter Details Date Type Department Care Team (Late st Contact Info) Description 03/13/2023 Telephone [facility] Obstetrics and Gynecology [address] [facility] [address] [place] [address] Debbie Lei, JOHN Social History [...] file Legal Sex Female 7:11 PM INSTRUCTOR [place]ER[place] Gender Identity Not on file Sexual Orientation Not on file 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 She has an appointment today [...] surgery. She will be in today for [facility] teaching and will discuss her meds at that time. RUCTOR [place] documented in this encounter Plan of Treatment Not on file documented as of this encounter Visit Diagnoses Not on filedocumented in this encounter Care Teams Mainframe Architect Relationship Specialty Start Date End Date Phan Garvin MD PCP - General Family Medicine 09/14/22 Phan Garvin MD Family Medicine 09/14/22 documented as of this encounter
--- OUTSIDE RECORDS SUMMARY | 2024-03-15 17:51 | XMS_ITS | Encounter Summary ---
Author Organization [facility] Address [address] [place] [address] Phone Care Team Providers Care Material Hauler Name Role Phone Phan Garvin MD Primary Care Provider [phone] Phan Garvin MD Unavailable [phone] Encounter Details Date Type Department Care Team (Latest Contact Info) Description 03/13/2023 11:00 AM SUPERVISOR DELIVERY DEPARTMENT Procedure visit [facility] Obstetrics and Gynecology [facility] Outpatient Health 7th Floor [address] [place] [address] Recurrent UTI (Primary Dx); Lesion [...] file Legal Sex Female 7:11 PM SUPERVISOR DELIVERY DEPARTMENT Gender Identity Not on file Sexual Orientation [...] towellette. The patient was then instructed to fruit picker machine operator the sterile catheter and use sterile lubricant on the tip. The patient was able to successfully demonstrate self catheterization with urine return. Supplies and written instructions were sent home with the patient. The patient was instructed to catheterize 3 times per day for an indefinite period of time due to incomplete bladder emptying. Time spent with patient: 30 minutes RVISOR DELIVERY DEPARTMENT documented in this encounter Plan of Treatment Not on file documented as of this encounter Results * (ABNORMAL) Urinalysis reflex to microscopic and culture Urine, in and out catheter (03/13/2023 12:48 PM SUPERVISOR DELIVERY DEPARTMENT) Color, ur Yellow Yellow [facility] Clarity, ur Cloudy(A) Clear [facility] Specific gravity, ur 1.019 1.003 - 1.030 [facility] pH, urine 5.5 [facility] Comment: Interpretive Data ? Urine pH is affected by diet, medications, systemic acid-base disturbances, and renal tubular function. ??pH may affect urinary stone formation. ??For example, urine pH below 6.0 may help reduce the tendency for calcium phosphate stones and pH greater than 6.0 may reduce the tendency for uric acid stone formation. Source: [facility] [employer] Current Interpretive Data was last revised on 2017 Protein, ur ql 1+(A) Negative [facility] Glucose, ur ql Negative Negative [facility] Ketones, ur Negative Negative [facility] Bilirubin, ur Negative Negative [facility] Blood, ur 3+(A) Negative [facility] Urobilinogen, ur <2.0 <2.0 mg/dL [facility] Nitrite, ur Negative Negative [facility] Leukocyte esterase, ur 2+(A) Negative [facility] UA reflex comment Reflex to microscopic UA will be performed. [facility] Urine, in and out catheter 03/13/2023 12:48 PM SUPERVISOR DELIVERY DEPARTMENT 03/13/2023 3:40 PM SUPERVISOR DELIVERY DEPARTMENT us Poncho Melgar MD LAB MICROBIOLOGY - GENERAL ORDERABLES Final Result [facility] [place] [address] documented in this encounter Visit Diagnoses Diagnosis Recurrent UTI- Primary Urinary tract infection, site not specified Lesion of bladder Unspecified disorder of bladder documented in this encounter Care Teams Material Hauler Relationship Specialty Start Date End Date Phan Garvin MD PCP - General Family Medicine 09/14/22 Phan Garvin MD Family Medicine 09/14/22 documented as of this encounter
--- OUTSIDE RECORDS SUMMARY | 2024-03-15 17:51 | XMS_ITS | Encounter Summary ---
Author Organization [facility] Healthcare Address [address] [place] [address] Care Team Providers Care Control Systems Technician Name Role Phone Phan Garvin MD Primary Care Provider [phone] Phan Garvin MD Unavailable [phone] Encounter Details Date Type Department Care Team (Late st Contact Info) Description 03/07/2023 Orders Only [facility] Medical Group Cardiology [address] [place] [address] Siddharth Jennings MD [address] [address] Social History Tobacco Use Types Packs/Day Years Used Date Smoking Tobacco: Never Alcohol Use Standard Drinks/Week Comments Yes 0 (1 standard drink = 0.6 oz pur e alcohol) Personal Safety Answer Date Recorded Getting School Help Needed Not on file 02/19 Comments No Sex and Gender Information Value Date Recorded Sex Assigned at Not on file Legal Sex Female 7:11 PM SCHOOL TRAFFIC SUPERVISOR Gender Identity Not on file Sexual Orientation Not on file 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 Not on file Not on file documented as of this encounter Plan of Treatment Not on file documented as of this encounter Procedures Procedure Name Priority Date/Time Associated Diagnosis Comments CARDIOLOGY DOCUMENT SCAN Routine 03/04/2023 1:35 PM SCHOOL TRAFFIC SUPERVISOR CARDIOLOGY DOCUMENT SCAN Routine 03/03/2023 1:32 PM SCHOOL TRAFFIC SUPERVISOR CARDIOLOGY DOCUMENT SCAN Routine 03/02/2023 1:18 PM SCHOOL TRAFFIC SUPERVISOR documented in this encounter Results * Cardiology Document Scan (03/04/2023 1:35 PM SCHOOL TRAFFIC SUPERVISOR) Anatomical Region Laterality Modality Other us Umu Marrufo MD CV CARDIAC SERVICES PROCEDU RES Final Result * Cardiology Document Scan (03/03/2023 1:32 PM SCHOOL TRAFFIC SUPERVISOR) Anatomical Region Laterality Modality Other us Umu Marrufo MD CV CARDIAC SERVICES PROCEDU RES Final Result * Cardiology Document Scan (03/02/2023 1:18 PM SCHOOL TRAFFIC SUPERVISOR) Anatomical Region Laterality Modality Other us Siddharth Jennings MD CV CARDIAC SERVICES PROC EDURES Final Result documented in this encounter Visit Diagnoses Not on filedocumented in this encounter Care Teams Control Systems Technician Relationship Specialty Start Date End Date Phan aGrvin MD PCP - General Family Medicine 09/14/22 Phan Garvin MD Family Medicine 09/14/22 documented as of this encounter
--- OUTSIDE RECORDS SUMMARY | 2024-03-15 17:51 | XMS_ITS | Encounter Summary ---
Author Organization [facility] Address [address] [place] [address] Phone Care Team Providers Care Day Guard Name Role Phone Phan Garvin MD Primary Care Provider [phone] Phan Garvin MD Unavailable [phone] Encounter Details Date Type Department Care Team (Late st Contact Info) Description 03/15/2023 Telephone [facility] Obstetrics and Gynecology [address] [facility] Health 7th Floor [address] [place] [address] Maria Esther Brown, RN Social [...] on file Legal Sex Female 7:11 PM MILLINERY TEACHER Gender Identity Not on file Sexual Orientation Not on file 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 INERY TEACHER * Telephone Encounter - Maria Esther Brown RN - 03/15/2023 4:09 PM CST ----- Message from Poncho Melgar MD sent at 03/15/2023 1:01 PM MILLINERY TEACHER ----- Negative Urine Cx. INERY TEACHER documented in this encounter Plan of Treatment Not on file documented as of this encounter Visit Diagnoses Not on filedocumented in this encounter Care Teams Day Guard Relationship Specialty Start Date End Date Phan Garvin MD PCP - General Family Medicine 09/14/22 Phan Garvin MD Family Medicine 09/14/22 documented as of this encounter
--- OUTSIDE RECORDS SUMMARY | 2024-03-15 17:51 | XMS_ITS | Encounter Summary ---
Author Organization [facility] Address [address] [place] [address] Phone Care Team Providers Care Field Seismologist Name Role Phone Phan Garvin MD Primary Care Provider [phone] Phan Garvin MD Unavailable [phone] Encounter Details Date Type Department Care Team (Late st Contact Info) Description 02/27/2023 Telephone [facility] Obstetrics and Gynecology [address] [facility] Outpatient Health 7th Floor [address] [place] [address] Araceli Anderson RN Social History [...] on file Legal Sex Female 7:11 PM PAPER BAGS SEWING MACHINE OPERATOR Gender Identity Not on file Sexual Orientation Not on file 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 She would like to leave urine for a test of cure tomorrow. R BAGS SEWING MACHINE OPERATOR documented in this encounter Plan of Treatment Scheduled Orders Name Type Priority Associated Diagnoses Orde r Schedule Urine culture Urine, clean voided Microbiology Routine Cloudy urine Frequency of urination Expected: 02/27/2023, Expires: 02/28/2024 documented as of this encounter Visit Diagnoses Diagnosis Cloudy urine- Primary Frequency of urination Urinary frequency documented in this encounter Care Teams Field Seismologist Relationship Specialty Start Date End Date Phan Garvin MD PCP - General Family Medicine 09/14/22 Phan Garvin MD Family Medicine 09/14/22 documented as of this encounter
--- OUTSIDE RECORDS SUMMARY | 2024-03-15 17:51 | XMS_ITS | Encounter Summary ---
Author Organization [facility] Address [address] [place] [address] Phone Care Team Providers Care Windows Admin Name Role Phone Phan Garvin MD Primary Care Provider [phone] Phan Garvin MD Unavailable [phone] Reason for Visit * Reason Onset Date Comments pathology result 04/12/2023 Encounter Details Date Type Department Care Team (Late st Contact Info) Description 04/12/2023 Telephone [facility] Obstetrics and Gynecology [address] [facility] Outpatient Health 7th Floor [address] [place] [address] Maria Esther Brown, RN pathology [...] Legal Sex Female 7:11 PM ACCOUNTS PAYABLE TECHNICIAN Gender Identity Not on file Sexual Orientation Not on file 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 Melgar. Patient denied having any questions but relieved that there was no evidence of malignancy. UNTS PAYABLE TECHNICIAN * Telephone Encounter - Maria Esther Brown RN - 04/12/2023 4:40 PM CST ----- Message from Poncho Melgar MD sent at 04/12/2023 4:30 PM ACCOUNTS PAYABLE TECHNICIAN ----- Please let pt know that surg path showed no evidence of malignancy. UNTS PAYABLE TECHNICIAN documented in this encounter Plan of Treatment Not on file documented as of this encounter Visit Diagnoses Not on filedocumented in this encounter Care Teams Windows Admin Relationship Specialty Start Date End Date Phan Garvin MD PCP - General Family Medicine 09/14/22 Phan Garvin MD Family Medicine 09/14/22 documented as of this encounter
--- OUTSIDE RECORDS SUMMARY | 2024-03-15 17:52 | XMS_ITS | Encounter Summary ---
Author Organization [facility] Address [address] [place] [address] Phone Care Team Providers Care Dice Maker Name Role Phone Phan Garvin MD Primary Care Provider [phone] Phan Garvin MD Unavailable [phone] Reason for Visit * Reason Onset Date Comments SHANNAN 01/23/2023 Encounter Details Date Type Department Care Team (Late st Contact Info) Description 01/23/2023 Telephone [facility] Obstetrics and Gynecology 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 Patient wants to go to [facility] to make certain UTI is over. She has appt 02/09/23 for UDS & f/u with Dr. Melgar. H DRIVER documented in this encounter Plan of Treatment Not on file documented as of this encounter Procedures Procedure Name Priority Date/Time Associated Diagnosis Comments URINE CULTURE Routine 01/25/2023 9:11 AM WINCH DRIVER Frequent UTI documented in this encounter Results * (ABNORMAL) Urine culture Urine, clean voided (01/25/2023 9:11 AM WINCH DRIVER) Urine culture (A) [facility] [employer] Comment: ??CULTURE, URINE, ROUTINE ?Micro Number: ?[id number] ??Test Status: ? Final ??Specimen Source: ?? [...] loracarbef. Urine, clean voided 01/25/2023 9:11 AM WINCH DRIVER 01/25/2023 9:12 AM WINCH DRIVER Narrative [facility] - 01/27/2023 1:45 PM WINCH DRIVER FASTING:UNKNOWN FASTING: UNKNOWN us Poncho Melgar MD LAB MICROBIOLOGY - GENERAL ORDERABLES Final Result Performing Organization Address [facility]/State/[facility] Co de Phone Number [facility] [facility] [address] [place] [address] documented in this encounter Visit Diagnoses Diagnosis Frequent UTI- Primary Urinary tract infection, site not specified documented in this encounter Care Teams Dice Maker Relationship Specialty Start Date End Date Phan Garvin MD PCP - General Family Medicine 09/14/22 Phan Garvin MD Family Medicine 09/14/22 documented as of this encounter
--- OUTSIDE RECORDS SUMMARY | 2024-03-15 17:52 | XMS_ITS | Encounter Summary ---
Author Organization [facility] Address [address] [place] [address] Care Team Providers Care Operations Support Manager Name Role Phone Phan Garvin MD Primary Care Provider Encounter Details Date Type Department Care Team (Late st Contact Info) Description 03/23/2022 Telephone [facility] Cardiology [address] [place] [id number] Payal Carrasquillo NP [address] [place] [address] Social History Tobacco Use Types Packs/Day Years Used Date Smoking Tobacco: Never Alcohol Use Standard Drinks/Week Comments Yes 0 (1 standard drink = 0.6 oz pur e alcohol) Comments Unknown Sex and Gender Information Value Date Recorded Sex Assigned at Not on file Legal Sex Female 7:11 PM COOPER HELPER Gender Identity Not on file Sexual Orientation Not on file 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 ER HELPER * Telephone Encounter - Daniela Mendoza - 03/23/2022 10:47 AM CST Marielena from 's office called regarding the sleep study referral. Per would like to change the order to a split night sleep study . # [phone] Please advise, thanks! ER HELPER documented in this encounter Plan of Treatment Not on file documented as of this encounter Visit Diagnoses Not on filedocumented in this encounter Care Teams Operations Support Manager Relationship Specialty Start Date End Date Phan Garvin MD PCP - General Family Medicine 03/13/21 09/13/22 documented as of this encounter
--- OUTSIDE RECORDS SUMMARY | 2024-03-15 17:52 | XMS_ITS | Encounter Summary ---
Author Organization [facility] Address [address] [place] [address] Phone Care Team Providers Care Home Care Attendant Name Role Phone Phan Garvin MD Primary Care Provider [phone] Phan Garvin MD Unavailable [phone] Encounter Details Date Type Department Care Team (Late st Contact Info) Description 01/08/2023 Telephone [facility] Obstetrics and Gynecology [address] [place] [facility] Outpatient Health 7th Floor [address] [place] [address] Maria Esther Brown, RN Social History Tobacco Use Types Packs/Day Years Used Date Smoking Tobacco: Never Alcohol Use Standard Drinks/Week Comments Yes 0 (1 standard drink = 0.6 oz pur e alcohol) Comments No Sex and Gender Information Value Date Recorded Sex Assigned at Not on file Legal Sex Female 7:11 PM MECHANICAL DESIGN ENGINEER Gender Identity Not on file Sexual Orientation Not on file 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 Order sent. documented in this encounter Plan of Treatment Not on file documented as of this encounter Visit Diagnoses Not on filedocumented in this encounter Care Teams Home Care Attendant Relationship Specialty Start Date End Date Phan Garvin MD PCP - General Family Medicine 09/14/22 Phan Garvin MD Family Medicine 09/14/22 documented as of this encounter
--- OUTSIDE RECORDS SUMMARY | 2024-03-15 17:52 | XMS_ITS | Encounter Summary ---
Author Organization [facility] Address [address] [place] [address] Phone Care Team Providers Care Manager Relationship Name Role Phone Phan Garvin MD Primary Care Provider [phone] Phan Garvin MD Unavailable [phone] Reason for Referral * Consultation (Routine) - Closed Specialty Diagnoses / Procedures Referred By Contac t Referred To Contact Physical Therapy Diagnoses Pelvic floor dysfunction in female Poncho Melgar MD [address] [place] [address] Phone: tel: fax: [facility] (All Locations) Referral ID Status Reason Start Date Expiration Date V isits Requested Visits Authorized [id number] Closed Specialty Services Required 01/08/2023 02/07/2024 12 12 Question Answer PTRFR PT Evaluate and Treat Therapy options discussed with patient? Yes Location provided for therapy services is: Patient requested/Patient preferred Please select the performing region: [facility] (All Locations) [167] Comments [address] (11) * OBGYN (Routine) - Closed Specialty Diagnoses / Procedures Referred By Contac t Referred To Contact Diagnoses Complicated UTI (urinary tract infection) History of pelvic surgery Procedures Cystometrogram - Poncho Melgar MD [address] [place] [address] Phone: tel: fax: [facility] (All Locations) Referral ID Status Reason Start Date Expiration Date Visits Re quested Visits Authorized [id number] Closed 01/08/2023 02/07/2024 1 1 * OBGYN (Routine) - Closed Specialty Diagnoses / Procedures Referred By Dacia tan Referred To Contact Diagnoses Complicated UTI (urinary tract infection) History of pelvic surgery Procedures Cystourethroscopy - Poncho Melgar MD [address] [place] [address] Phone: tel: fax: [facility] (All Locations) Referral ID Status Reason Start Date Expiration Date Visits Re quested Visits Authorized [id number] Closed 01/08/2023 02/07/2024 1 1 Reason for Visit * Reason Comments New Patient Frequent UTIs * Consultation (Routine) - Closed Specialty Diagnoses / Procedures Referred By Dacia tan Referred To Contact Urogynecology Diagnoses Frequent UTI Referral, Self [facility] (All Locations) Referral ID Status Reason Start Date Expiration Date V isits Requested Visits Authorized [id number] Closed Specialty Services Required 09/29/2022 10/29/2023 1 12 Encounter Details Date Type Department Care Team (Late st Contact Info) Description 01/08/2023 8:00 AM CDT Office Visit [facility] Obstetrics and Gynecology [address] [facility] 7th Floor [address] [place] [id number] Poncho Melgar MD [address] [place] [address] Recurrent UTI (Primary Dx); Frequent [...] on file Legal Sex Female 7:11 PM MALLET AND DIE CUTTER Gender Identity Not on file Sexual Orientation Not on file 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 Butt), and remembers [...] Diagnosis Date Atrial fibrillation (CMS/HCC) ([facility]) 03/01/2022 Hypercholesteremia Osteoporosis Recurrent UTI [...] Take After meals 6 tablet 0 vit C,F-Sv-akeni-lutein-zeaxan (PreserVision AREDS-2) 250-90-40-1 mg capsule Take by [...] masses, no tenderness. Perineal Sensation: normal. Anal [place]: present. Pelvic muscle (obturator internus & levator ani) assessment Retropubic L: 8/10 Retropubic R: 9/10 Right OI: 10/10 Right LA: 10/10 Left LA: 10/10 Left OI: 10/10 Pelvic Floor Contraction Strength ([place] Scale) Muscle Strength Grading Grade 1: Very [...] Ketones, ur, POC Trace (A) Negative Specific Collyer, POC 1.030 1.003 - 1.030 Blood, ur, POC Large (A) Negative pH, ur, POC 6.0 5.0 - 8.0 Protein, ur, POC 1+ (A) Negative Urobilinogen, urine, POC 0.2 0.2 - 1.0 mg/dL Nitrite, ur, POC Negative Negative Leukocytes, ur, POC Large (A) Negative Lot Number [id number] Exam was performed with remediation technician: Resident: Dr. Maya The following tests, documents, [...] (.) [facility] Organism AEROCOCCUS URINAE [facility] Organism PLUS GROWTH OF CLINICALLY INSIGNIFICANT LU. [facility] Urine, in and out catheter 01/08/2023 10:43 AM CDT 01/08/2023 12:16 PM CDT Narrative [facility] - 01/09/2023 4:44 PM CDT Testing performed by [facility] Microbiology Laboratory ([phone]) Poncho Melgar MD LAB MICROBIOLOGY - GENERAL ORDERABLES Final Result Performing Organization Address [facility]/ZIP Co de Phone Number [facility] Department [place] [address] * (ABNORMAL) Urinalysis reflex to microscopic (01/08/2023 9:11 AM CDT) Color, ur Yellow Yellow [facility] Clarity, ur Turbid(A) Clear [facility] Specific gravity, ur 1.017 1.003 - 1.030 [facility] pH, urine 5.5 [facility] Comment: Interpretive Data ? Urine pH is affected by diet, medications, systemic acid-base disturbances, and renal tubular function. ??pH may affect urinary stone formation. ??For example, urine pH below 6.0 may help reduce the tendency for calcium phosphate stones and pH greater than 6.0 may reduce the tendency for uric acid stone formation. Source: [facility] Current Interpretive Data was last revised on 2017 Protein, ur ql 1+(A) Negative [facility] Glucose, ur ql Negative Negative [facility] Ketones, ur Negative Negative [facility] Bilirubin, ur Negative Negative [facility] Blood, ur 2+(A) Negative [facility] Urobilinogen, ur <2.0 <2.0 mg/dL [facility] Nitrite, ur Negative Negative [facility] Leukocyte esterase, ur 3+(A) Negative [facility] UA reflex comment Reflex to microscopic UA will be performed. [facility] Urine 01/08/2023 9:11 AM CDT 01/08/2023 10:45 AM CDT Poncho Melgar MD LAB URINE ORDERABLES Final Result Performing Organization Address [facility] Co de Phone Number [facility] Department [place] [address] * (ABNORMAL) POCT urinalysis dipstick (01/08/2023 9:09 AM CDT) Color, Urine, POC Dark Yellow Clarity, ur, POC Cloudy(A) Clear Glucose, ur, POC Negative Negative MG/DL Bilirubin, ur, POC Negative Negative, Small, Moderate, Large Ketones, ur, POC Trace(A) Negative Specific Collyer, POC 1.030 1.003 - 1.030 Blood, ur, POC Large(A) Negative pH, ur, POC 6.0 5.0 - 8.0 Protein, ur, POC 1+(A) Negative Urobilinogen, urine, POC 0.2 0.2 - 1.0 mg/dL Nitrite, ur, POC Negative Negative Leukocytes, ur, POC Large(A) Negative Lot Number [id number] Urine 01/08/2023 9:09 AM CDT Poncho Melgar [...] 01/08/2023 documented in this encounter Care Teams Manager Relationship Relationship Specialty Start Date End Date Phan Garvin MD PCP - General Family Medicine 09/14/22 Phan Garvin MD Family Medicine 09/14/22 documented as of this encounter
--- OUTSIDE RECORDS SUMMARY | 2024-03-15 17:52 | XMS_ITS | Encounter Summary ---
Author Organization [facility] Address [address] [place] [address] Phone Care Team Providers Care Door Liner Helper Name Role Phone Phan Garvin MD Primary Care Provider [phone] Phan Garvin MD Unavailable [phone] Encounter Details Date Type Department Care Team (Late st Contact Info) Description 01/09/[address] 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 Order faxed. documented in this encounter Plan of Treatment Not on file documented as of this encounter Visit Diagnoses Not on filedocumented in this encounter Care Teams Door Liner Helper Relationship Specialty Start Date End Date Phan Garvin MD PCP - General Family Medicine 09/14/22 Phan Garvin MD Family Medicine 09/14/22 documented as of this encounter
--- OUTSIDE RECORDS SUMMARY | 2024-03-15 17:52 | XMS_ITS | Encounter Summary ---
Author Organization [facility] Address [address] [facility] [address] [place] [address] Care Team Providers Care Rug Measurer Name Role Phone Phan Garvin MD Primary Care Provider [phone] Reason for Referral * Diagnostic Imaging (Routine) - Closed Specialty Diagnoses / Procedures Referred By Dacia tan Referred To Contact Diagnoses New onset atrial fibrillation (CMS/HCC) (HCC) Procedures NM MPI SPECT (Rest and/or Stress) Multiple Studies Payal Kasper NP [address] [address] Phone: tel: fax: [facility] Referral ID Status Reason Start Date Expiration Date Visits Re quested Visits Authorized [id number] Closed 04/03/2022 09/30/2022 1 1 GER CREATIVE Reason for Visit * Reason Comments Follow-up 1 mo Encounter Details Date Type Department Care Team (Late st Contact Info) Description 03/21/2022 10:30 AM MANAGER CREATIVE Office Visit [facility] Cardiology [address] [address] Payal Kasper NP [address] [facility] [address] [address] New onset atrial fibrillation (CMS/HCC) [...] file Legal Sex Female 7:11 PM MANAGER CREATIVE Gender Identity Not on file Sexual Orientation Not on file 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 Not on file Not on file Not on file documented as of this encounter Last Filed Vital Signs Vital Sign Reading Time Taken Comments Blood Pressure 128/76 03/21/2022 10:40 AM MANAGER CREATIVE Pulse 72 03/21/2022 10:40 AM MANAGER CREATIVE Temperature - - Respiratory Rate - - Oxygen Saturation 98% 03/21/2022 10:40 AM MANAGER CREATIVE Inhaled Oxygen Concentration - - Weight 76.7 kg (169 lb) 03/21/2022 10:40 AM MANAGER CREATIVE Height 160 cm (5' 3 ) 03/21/2022 10:40 AM MANAGER CREATIVE Body Mass Index 29.94 03/21/2022 10:40 AM MANAGER CREATIVE documented in this encounter Progress Notes * Payal Kasper NP - 03/21/2022 10:30 AM CST Images from the original note were not included. [facility] Cardiology [address] [place] [address] Date of Visit: 03/21/2022 Patient ID: [place] [...] she estimates about 38. She presented to [facility] on 03/01/2022 with complaint of chest pain. [...] Take by mouth, Disp: , Rfl: vit C,S-Wz-khcuu-lutein-zeaxan (PreserVision AREDS-2) 250-90-40-1 mg capsule, Take by [...] rhythm right now. I suggested using an [email or web address] tomonitor her heart rhythm. Continue metoprolol. To [...] to keep her 1 week trip to [place] scheduled and 1 week trip to [facility]. Return to the office to see Dr. [...] services. 03/21/2022 CONTRERAS Kelsey-ZULAY Nurse Practitioner with [facility] Cardiology This note is dictated and transcribed using Audicus Direct Software. Exercise Physiology Professor variancesmay occur. Despite proofreading, typographical errors may occur. GER CREATIVE documented in this encounter Plan of Treatment Not on file documented as of this encounter Results * NM MPI SPECT (Rest and/or Stress) Multiple Studies (04/06/2022 9:50 AM MANAGER CREATIVE) Anatomical Region Laterality Modality Body N/A Nuclear Medicine 04/06/2022 8:26 AM MANAGER CREATIVE Narrative 04/06/2022 11:54 AM MANAGER CREATIVE [facility] Cardiology [address] [facility] [address], [place] [address] [address] [facility] [address], [place] [address] P:[phone] P:[phone] MPI Imaging Report Patient Name: ISRAEL JEAN A : 1940 Study Date: 04/06/2022 8:26:41 AM Gender: F Tech: ROSE GREEN Location: [place] Ref.Provider: PAYAL KASPER Height(Cm): 160 BSA: Weight(Kg): [...] Signed By: Isidro Conde MD 2022-04-06 11:54:25 MANAGER CREATIVE Electronically Signed By: Isidro Conde MD 2022-04-06 11:54:25 MANAGER CREATIVE CC: CC: Procedure Note Isidro Conde MD - 04/06/2022 [facility] Cardiology [address], [place] [address] [address] [facility] [address], [place] [address] P:[phone] P:[phone] MPI Imaging Report Patient Name: ISRAEL JEAN APatient ID: [id number] : [id number] Date: 04/06/2022 8:26:41 AM Gender: FAccession #: [id number] Tech: , MTLocation: [place] Ref.Provider: PAYAL KASPERHeight(Cm): 160 BSA: Weight(Kg): 76.7 [...] Signed By: Isidro Conde MD 2022-04-06 11:54:25 MANAGER CREATIVE Electronically Signed By: Isidro Conde MD 2022-04-06 11:54:25 MANAGER CREATIVE CC: CC: Payal Kasper MASK INSPECTOR IMG NM PROCEDURES Final R esult documented in this encounter Visit Diagnoses Diagnosis New onset atrial fibrillation (CMS/HCC) (HCC)- Primary Atrial fibrillation Hypothyroidism, unspecified type Gross hematuria Sleep disorder, unspecified Hospital discharge follow-up Other follow-up examination New onset atrial fibrillation (CMS/HCC) (HCC) Atrial fibrillation documented in this encounter Historical Medications * This list may reflect changes made after this encounter. vit C,U-Gg-zpaxq-lute in-zeaxan (PreserVision AREDS-2) 250-90-40-1 mg capsuleIndication s:eye [...] 03/29/2023 added in this encounter Care Teams Rug Measurer Relationship Specialty Start Date End Date Phan Garvin MD PCP - General Family Medicine 03/13/21 09/13/22 documented as of this encounter
--- OUTSIDE RECORDS SUMMARY | 2024-03-15 17:52 | XMS_ITS | Encounter Summary ---
Author Organization [facility] Address [address] [place] [address] Care Team Providers Care Edge Stainer Machine Name Role Phone Phan Garvin MD Primary Care Provider [phone] Phan Garvin MD Unavailable [phone] Encounter Details Date Type Department Care Team (Latest Contact Info) Description 01/08/2023 10:42 AM CDT - 01/08/2023 11:59 PM CDT Hospital Encounter [address] [address] Recurrent UTI Discharge Disposition: Discharge to home or self care Social History Tobacco Use Types Packs/Day Years Used Date Smoking Tobacco: Never Alcohol Use Standard Drinks/Week Comments Yes 0 (1 standard drink = 0.6 oz pur e alcohol) Comments No Sex and Gender Information Value Date Recorded Sex Assigned at Not on file Legal Sex Female 7:11 PM BREAD STACKER Gender Identity Not on file Sexual Orientation Not on file 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 (.) [facility] Organism AEROCOCCUS URINAE [facility] Organism PLUS GROWTH OF CLINICALLY INSIGNIFICANT LU. [facility] Urine, in and out catheter 01/08/2023 10:43 AM CDT 01/08/2023 12:16 PM CDT Narrative [facility] - 01/09/2023 4:44 PM CDT Testing performed by [facility] Microbiology Laboratory ([phone]) us Poncho Melgar MD LAB MICROBIOLOGY - GENERAL ORDERABLES Final Result Performing Organization Address [facility] [place] [address] * (ABNORMAL) Urinalysis, microscopic only (01/08/2023 9:11 AM CDT) WBC, ur >50(A) 0 - 5 /HPF [facility] RBC, ur 6-10(A) 0 - 2 /HPF [facility] Epithelial cells, squamous, ur 1-5 0 - 5 /HPF [facility] Bacteria, ur Trace(A) [facility] Mucous, ur Present(A) [facility] Urine 01/08/2023 9:11 AM CDT 01/08/2023 10:45 AM CDT Poncho Melgar MD LAB URINE ORDERABLES Final Result Performing Organization Address [facility] de Phone Number [facility] [place] [address] * (ABNORMAL) Urinalysis reflex to microscopic (01/08/2023 9:11 AM CDT) Color, ur Yellow Yellow [facility] Clarity, ur Turbid(A) Clear [facility] Specific gravity, ur 1.017 1.003 - 1.030 [facility] pH, urine 5.5 [facility] Comment: Interpretive Data ? Urine pH is affected by diet, medications, systemic acid-base disturbances, and renal tubular function. ??pH may affect urinary stone formation. ??For example, urine pH below 6.0 may help reduce the tendency for calcium phosphate stones and pH greater than 6.0 may reduce the tendency for uric acid stone formation. Source: [facility] Current Interpretive Data was last revised on 2017 Protein, ur ql 1+(A) Negative [facility] Glucose, ur ql Negative Negative [facility] Ketones, ur Negative Negative [facility] Bilirubin, ur Negative Negative [facility] Blood, ur 2+(A) Negative [facility] Urobilinogen, ur <2.0 <2.0 mg/dL [facility] Nitrite, ur Negative Negative [facility] Leukocyte esterase, ur 3+(A) Negative [facility] UA reflex comment Reflex to microscopic UA will be performed. [facility] Urine 01/08/2023 9:11 AM CDT 01/08/2023 10:45 AM CDT us Poncho Melgar MD LAB URINE ORDERABLES Final Result Performing Organization Address City/State/[facility] Co de Phone Number [facility] [address] [facility] Department [place] [address] documented in this encounter Visit Diagnoses Diagnosis Recurrent UTI Urinary tract infection, site not specified documented in this encounter Care Teams Edge Stainer Machine Relationship Specialty Start Date End Date Phan Garvin MD PCP - General Family Medicine 09/14/22 Phan Garvin MD Family Medicine 09/14/22 documented as of this encounter
--- OUTSIDE RECORDS SUMMARY | 2024-03-15 17:52 | XMS_ITS | Encounter Summary ---
Author Organization [facility] Address [address] [place] [address] Phone Care Team Providers Care Chute Builder Name Role Phone Phan Garvin MD Primary Care Provider [phone] Phan Garvin MD Unavailable [phone] Encounter Details Date Type Department Care Team (Late st Contact Info) Description 01/22/2023 Telephone [facility] Obstetrics and Gynecology [address] [facility] Health 7th Floor [address] [place] [address] Maria Esther Brown, RN Social History Tobacco Use Types Packs/Day Years Used Date Smoking Tobacco: Never Alcohol Use Standard Drinks/Week Comments Yes 0 (1 standard drink = 0.6 oz pur e alcohol) Comments No Sex and Gender Information Value Date Recorded Sex Assigned at Not on file Legal Sex Female 7:11 PM RESTAURANT SERVICE MANAGER Gender Identity Not on file Sexual Orientation Not on file 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 Melgar 02/09/23 AURANT SERVICE MANAGER documented in this encounter Plan of Treatment Scheduled Orders Name Type Priority Associated Diagnoses Orde r Schedule Urine culture Urine, clean voided Microbiology Routine Recurrent UTI Expected: 01/22/2023, Expires: 01/23/2024 documented as of this encounter Visit Diagnoses Diagnosis Recurrent UTI- Primary Urinary tract infection, site not specified documented in this encounter Care Teams Chute Builder Relationship Specialty Start Date End Date Phan Garvin MD PCP - General Family Medicine 09/14/22 Phan Garvin MD Family Medicine 09/14/22 documented as of this encounter
--- OUTSIDE RECORDS SUMMARY | 2024-03-15 17:52 | XMS_ITS | Encounter Summary ---
Author Organization [facility] Address [address] [place] [address] Care Team Providers Care Mc Kay Machine Operator Name Role Phone Phan Garvin MD Primary Care Provider Encounter Details Date Type Department Care Team (Late st Contact Info) Description 03/03/2022 Orders Only [facility] Cardiology [address] [facility] [address] [place] [address] Siddharth Jennings MD [address] [facility] [address] [place] [address] Social History Tobacco Use Types Packs/Day Years Used Date Smoking Tobacco: Never Alcohol Use Standard Drinks/Week Comments Yes 0 (1 standard drink = 0.6 oz pur e alcohol) Comments Unknown Sex and Gender Information Value Date Recorded Sex Assigned at Not on file Legal Sex Female 7:11 PM POPCORN VENDOR Gender Identity Not on file Sexual Orientation Not on file 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
--- OUTSIDE RECORDS SUMMARY | 2024-03-15 17:52 | XMS_ITS | Encounter Summary ---
Author Organization [facility] Address [address] [place] [address] Care Team Providers Care Ncqa Specialist Name Role Phone Phan Garvin MD Primary Care Provider [phone] Phan Garvin MD Unavailable [phone] Reason for Visit * Reason Comments New Patient Diarrhea Subsided. Pt was pos itive for C diff. Colonoscopy Cologuard done last year and came back negative. EGD EGD never done in e past. 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 [facility] [place] Subjective/Objective Patient ID: Maria A Peralta is [...] diarrhea has improved significantly and is currently skilled nursing through her treatment with vancomycin. Review of [...] capsule vancomycin (VANCOCIN) 125 mg capsule vit C,S-Bn-dtujr-lutein-zeaxan (PreserVision AREDS-2) 250-90-40-1 mg capsule zinc 50 [...] 12/29/2022). Rudy Hollis MD Voice recognition software (Iprac[employer] Direct) was used to complete this document. Despite proofreading, salon shampoo assistant variances and typographical errors may occur. documented [...] 07/20/2023 added in this encounter Care Teams Ncqa Specialist Relationship Specialty Start Date End Date Phan Garvin MD PCP - General Family Medicine 09/14/22 Phan Garvin MD Family Medicine 09/14/22 documented as of this encounter
--- OUTSIDE RECORDS SUMMARY | 2024-03-15 17:52 | XMS_ITS | Encounter Summary ---
Author Organization [facility] Address [address] [place] [address] Phone Care Team Providers Care Educational Programming Director Name Role Phone Phan Garvin MD Primary Care Provider [phone] Phan Garvin MD Unavailable [phone] Encounter Details Date Type Department Care Team (Late st Contact Info) Description 02/09/2023 Orders Only [facility] Obstetrics and Gynecology 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 Not on file Not on file documented as of this encounter Miscellaneous Notes * Addendum Note - Brielle Aguilar RMA - 02/09/2023 11:25 AM CSTAddended by: BRIELLE AGUILAR on: 02/09/2023 11:36 AM Modules accepted: Orders CARGO SPECIALIST SUPERVISOR * Addendum Note - Brielle Aguilar RMA - 02/09/2023 11:25 AM CSTAddended by: BRIELLE AGUILAR on: 02/09/2023 11:36 AM Modules accepted: Orders CARGO SPECIALIST SUPERVISOR documented in this encounter Plan of Treatment Not on file documented as of this encounter Visit Diagnoses Diagnosis Complicated UTI (urinary tract infection)- Primary documented in this encounter Care Teams Educational Programming Director Relationship Specialty Start Date End Date Phan Garvin MD PCP - General Family Medicine 09/14/22 Phan Garvin MD Family Medicine 09/14/22 documented as of this encounter
--- OUTSIDE RECORDS SUMMARY | 2024-03-15 17:52 | XMS_ITS | Encounter Summary ---
Author Organization [facility] Address [address] [place] [address] Phone Care Team Providers Care Day Care Supervisor Name Role Phone Phan Garvin MD Primary Care Provider [phone] Phan Garvin MD Unavailable [phone] Encounter Details Date Type Department Care Team (Late st Contact Info) Description 02/09/2023 Orders Only [facility] Obstetrics and Gynecology [address] Out[address] Health 7th [address] [place] [address] Poncho Melgar MD [address] [place] [address] Complicated UTI (urinary tract infection) Social History Tobacco Use Types Packs/Day Years Used Date Smoking Tobacco: Never Alcohol Use Standard Drinks/Week Comments Yes 0 (1 standard drink = 0.6 oz pur e alcohol) Comments No Sex and Gender Information Value Date Recorded Sex Assigned at Not on file Legal Sex Female 7:11 PM MANAGER DATA CENTER Gender Identity Not on file Sexual Orientation Not on file 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
--- OUTSIDE RECORDS SUMMARY | 2024-03-15 17:52 | XMS_ITS | Encounter Summary ---
Author Organization [facility] Address [address] [place] [address] Care Team Providers Care Senior Business Consultant Name Role Phone Phan Garvin MD Primary Care Provider Reason for Visit * Reason Comments Atrial Fibrillation 3 month follow up. Encounter Details Date Type Department Care Team (Late st Contact Info) Description 08/15/2022 11:00 AM CDT Office Visit [facility] Cardiology [address] [address] Siddharth Jennings MD [address] [facility] [address] [place] [address] Paroxysmal atrial fibrillation (CMS/HCC) (HCC) (Primary Dx) Social History Tobacco Use Types Packs/Day Years Used Date Smoking Tobacco: Never Tobacco Cessation:Counseling Given: Not Answered Alcohol Use Standard Drinks/Week Comments Yes 0 (1 standard drink = 0.6 oz pur e alcohol) Comments Unknown Sex and Gender Information Value Date Recorded Sex Assigned at Not on file Legal Sex Female 7:11 PM CHIEF LIBRARIAN WORK WITH BLIND Gender Identity Not on file Sexual Orientation Not on file 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 vit C,U-Oj-rchjm-lutein-zeaxan (PreserVision AREDS-2) 250-90-40-1 mg capsule, Take by [...] 01/08/2023 added in this encounter Care Teams Senior Business Consultant Relationship Specialty Start Date End Date Phan Garvin MD PCP - General Family Medicine 03/13/21 09/13/22 documented as of this encounter
--- OUTSIDE RECORDS SUMMARY | 2024-03-15 17:52 | XMS_ITS | Encounter Summary ---
Author Organization [facility] Address [address] [place] [address] Phone Care Team Providers Care Steam And Power Supervisor Name Role Phone Phan Garvin MD Primary Care Provider [phone] Phan Garvin MD Unavailable [phone] Encounter Details Date Type Department Care Team (Late st Contact Info) Description 01/11/2023 Telephone [facility] Obstetrics and Gynecology [address] Outpatient Health 7th Floor [address] [place] [address] Alyson Brown RN Social History Tobacco Use Types Packs/Day Years Used Date Smoking Tobacco: Never Alcohol Use Standard Drinks/Week Comments Yes 0 (1 standard drink = 0.6 oz pur e alcohol) Comments No Sex and Gender Information Value Date Recorded Sex Assigned at Not on file Legal Sex Female 7:11 PM HOT STICK MAN Gender Identity Not on file Sexual Orientation Not on file 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 She is in [place] and would like Macrobid sent to a pharmacy in [place]. Reviewed ED precautions with patient. Informed her that we will check another urine culture before bladdertesting on 02/09. STICK MAN * Telephone Encounter - Alyson Brown RN - 01/19/2023 12:28 PM HOT STICK MAN LMTC regarding SHANNAN following UTI/Keflex. STICK MAN * Addendum Note - Alyson Brown RN - 01/11/2023 11:34 AM CDTAddended by: [...] MD Sent: 01/09/2023 12:07 PM CDT To: [facility] Clinical Pool If symptomatic offer keflex 500mg po bid x 7 days. documented in this encounter Plan of Treatment Not on file documented as of this encounter Procedures Procedure Name Priority Date/Time Associated Diagnosis Comments URINE CULTURE Routine 01/17/2023 9:44 AM HOT STICK MAN Recurrent UTI documented in this encounter Results * (ABNORMAL) Urine culture Urine, clean voided (01/17/2023 9:44 AM HOT STICK MAN) Urine culture (A) [facility] [facility] Comment: ??CULTURE, URINE, ROUTINE ?Micro Number: ?[id number] ??Test Status: ? Final ??Specimen Source: ?? [...] loracarbef. Urine, clean voided 01/17/2023 9:44 AM HOT STICK MAN 01/17/2023 9:45 AM HOT STICK MAN us Poncho Melgar MD LAB MICROBIOLOGY - GENERAL ORDERABLES Final Result [facility] [address] [place] [address] documented in this encounter Visit Diagnoses Diagnosis Recurrent UTI- Primary Urinary tract infection, site not specified documented in this encounter Discontinued Medications Medication Sig Discontinue Reason Start Date End Da te fosfomycin (MONUROL) 3 gram packet TAKE ONE PACKET WEEKLY ON SUNDAY (MIXED DIRECTED) Therapy completed 09/30/2021 01/19/2023 documented as of this encounter Care Teams Steam And Power Supervisor Relationship Specialty Start Date End Date Phan Garvin MD PCP - General Family Medicine 09/14/22 Phan Garvin MD Family Medicine 09/14/22 documented as of this encounter
--- OUTSIDE RECORDS SUMMARY | 2024-03-15 17:52 | XMS_ITS | Encounter Summary ---
Author Organization [facility] Address [address] [place] [address] Care Team Providers Care Marine Mammal Trainer Name Role Phone Phan Garvin MD Primary Care Provider Encounter Details Date Type Department Care Team (Late st Contact Info) Description 03/03/2022 Orders Only [facility] Cardiology [address] [facility] [address] [place] [address] Siddharth Jennings MD [address] [facility] [address] [place] [address] Social History Tobacco Use Types Packs/Day Years Used Date Smoking Tobacco: Never Alcohol Use Standard Drinks/Week Comments Yes 0 (1 standard drink = 0.6 oz pur e alcohol) Comments Unknown Sex and Gender Information Value Date Recorded Sex Assigned at Not on file Legal Sex Female 7:11 PM CIRCUIT RECORDER Gender Identity Not on file Sexual Orientation [...] on filedocumented in this encounter Care Teams Marine Mammal Trainer Relationship Specialty Start Date End Date Phan Garvin MD PCP - General Family Medicine 03/13/21 09/13/22 documented as of this encounter
--- OUTSIDE RECORDS SUMMARY | 2024-03-15 17:52 | XMS_ITS | Encounter Summary ---
Author Organization [facility] Address [address] [place] [address] Phone Care Team Providers Care Chancellor Name Role Phone Phan Garvin MD Primary Care Provider [phone] Phan Garvin MD Unavailable [phone] Reason for Visit * Reason Comments Procedure * Consultation (Routine) - Closed Specialty Diagnoses / Procedures Referred By Contac t Referred To Contact Urogynecology Diagnoses Frequent UTI Referral, Self [facility] (All Locations) Referral ID Status Reason Start Date Expiration Date V isits Requested Visits Authorized [id number] Closed Specialty Services Required 09/29/2022 10/29/2023 1 12 Encounter Details Date Type Department Care Team (Latest Contact Info) Description 02/09/2023 8:00 AM LICENSED EMBALMER SUPERVISOR Procedure visit [facility] Obstetrics and Gynecology [address] [place] [address] Outpatient Health 7th Floor [address] [place] [address] Recurrent UTI (Primary Dx); Complicated [...] file Legal Sex Female 7:11 PM LICENSED EMBALMER SUPERVISOR Gender Identity Not on file Sexual Orientation Not on file 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 Not on file Not on file Not on file documented as of this encounter Last Filed Vital Signs Vital Sign Reading Time Taken Comments Blood Pressure 164/84 02/09/2023 8:09 AM LICENSED EMBALMER SUPERVISOR Pulse - - Temperature - - Respiratory Rate - - Oxygen Saturation - - Inhaled Oxygen Concentration - - Weight 72.2 kg (159 lb 3.2 oz) 02/09/2023 8:09 A M LICENSED EMBALMER SUPERVISOR Height 160 cm (5' 3 ) 02/09/2023 8:09 AM LICENSED EMBALMER SUPERVISOR Body Mass Index 28.2 02/09/2023 8:09 AM LICENSED EMBALMER SUPERVISOR documented in this encounter Ordered Prescriptions Prescription [...] (Delayed 1st Urge) 2. NORM (only at WZT=901 mls, cough) 3. DO at 400mls 4. [...] Large Ketones, ur, POC Negative Negative Specific [place], POC 1.005 1.003 - 1.030 Blood, ur, POC Moderate (A) Negative pH, ur, POC 5.0 5.0 - 8.0 Protein, ur, POC Negative Negative Urobilinogen, urine, POC 0.2 0.2 - 1.0 mg/dL Nitrite, ur, POC Negative Negative Leukocytes, ur, POC Large (A) Negative Lot Number [id number] Cystometrogram: Using 7F water filled catheters the bladder was filled at 50ml/min. Test performed in sitting position at 45 deg. Prolapse: No Reduction method: N/A First sensation: 9 ml DO: DO at 400 mls First urge: 231 ml Strong urge: 401 ml SKILLED NURSING: Not met EMG activity:Appropriate activity with filling/cough/valsalva [...] activity during void Catheterized PVR: 400 ml NSED EMBALMER SUPERVISOR documented in this encounter Plan of Treatment Not on file documented as of this encounter Procedures Procedure Name Priority Date/Time Associated Diagnosis Comments POCT URINALYSIS DIPSTICK Routine 02/09/2023 9:21 AM LICENSED EMBALMER SUPERVISOR Complicated UTI (urinary tract infection) History of pelvic surgery URODYNAMICS 02/09/2023 9:17 AM LICENSED EMBALMER SUPERVISOR documented in this encounter Results * (ABNORMAL) POCT urinalysis dipstick (02/09/2023 9:21 AM LICENSED EMBALMER SUPERVISOR) Color, Urine, POC Yellow Clarity, ur, POC Clear Clear Glucose, ur, POC Negative Negative MG/DL Bilirubin, ur, POC Negative Negative, Small, Moderate, Large Ketones, ur, POC Negative Negative Specific [place], POC 1.005 1.003 - 1.030 Blood, ur, POC Moderate(A) Negative pH, ur, POC 5.0 5.0 - 8.0 Protein, ur, POC Negative Negative Urobilinogen, urine, POC 0.2 0.2 - 1.0 mg/dL Nitrite, ur, POC Negative Negative Leukocytes, ur, POC Large(A) Negative Lot Number [id number] Urine 02/09/2023 9:21 AM LICENSED EMBALMER SUPERVISOR us Poncho Melgar MD POINT OF CARE TEST ORDERABL ES Final Result * URODYNAMICS (02/09/2023 9:17 AM LICENSED EMBALMER SUPERVISOR) us Poncho Melgar MD PROCEDURE ORDERABLES Fin [...] 02/09/2023 documented in this encounter Care Teams Chancellor Relationship Specialty Start Date End Date Phan Garvin MD PCP - General Family Medicine 09/14/22 Phan Garvin MD Family Medicine 09/14/22 documented as of this encounter
--- OUTSIDE RECORDS SUMMARY | 2024-03-15 17:52 | XMS_ITS | Encounter Summary ---
Author Organization [facility] Address [address] [place] [address] Care Team Providers Care Senior Validation Engineer Name Role Phone Phan Garvin MD Primary Care Provider [phone] Phan Garvin MD Unavailable [phone] Encounter Details Date Type Department Care Team (Latest Contact Info) Description 02/09/2023 1:35 PM ASSISTANT INFANT TODDLER TEACHER - 02/09/2023 11:59 PM ASSISTANT INFANT TODDLER TEACHER Hospital Encounter [address] [address] Complicated UTI (urinary tract infection) Discharge Disposition: Discharge to home or self care Social History Tobacco Use Types Packs/Day Years Used Date Smoking Tobacco: Never Alcohol Use Standard Drinks/Week Comments Yes 0 (1 standard drink = 0.6 oz pur e alcohol) Comments No Sex and Gender Information Value Date Recorded Sex Assigned at Not on file Legal Sex Female 7:11 PM ASSISTANT INFANT TODDLER TEACHER Gender Identity Not on file Sexual [...] rosuvastatin (CRESTOR) 10 mg tablet 09/24/2019 vit C,M-Pc-aumih-lutei n-zeaxan (PreserVision AREDS-2) 250-90-40-1 mg capsuleIndications :eye [...] REFLEX TO MICROSCOPIC Routine 02/09/2023 11:41 AM ASSISTANT INFANT TODDLER TEACHER Complicated UTI (urinary tract infection) URINALYSIS, MICROSCOPIC ONLY Routine 02/09/2023 11:41 AM ASSISTANT INFANT TODDLER TEACHER Complicated UTI (urinary tract infection) URINE CULTURE Routine 02/09/2023 11:41 AM ASSISTANT INFANT TODDLER TEACHER Complicated UTI (urinary tract infection) documented in this encounter Results * (ABNORMAL) Urinalysis, microscopic only (02/09/2023 11:41 AM ASSISTANT INFANT TODDLER TEACHER) Pathologist [facility] WBC, ur >50(A) 0 - 5 /HPF [facility] RBC, ur 11-20(A) 0 - 2 /HPF [facility] Epithelial cells, squamous, ur 1-5 0 - 5 /HPF [facility] Bacteria, ur Trace(A) [facility] Mucous, ur Present(A) [facility] Urine, in and out catheter 02/09/2023 11:41 AM ASSISTANT INFANT TODDLER TEACHER 02/09/2023 3:08 PM ASSISTANT INFANT TODDLER TEACHER Poncho Melgar MD LAB URINE ORDERABLES Final Result [facility] Department [place] [address] * (ABNORMAL) Urine culture Urine, in and out catheter (02/09/2023 11:41 AM ASSISTANT INFANT TODDLER TEACHER) Report Final Report: Greater than or equal to 100,000 colonies/mL of Enterococcus faecalis 10,000 to 100,000 colonies/mL of Escherichia coli (.) [facility] Organism ENTEROCOCCUS FAECALIS [facility] Organism ESCHERICHIA COLI [facility] Urine, in and out catheter 02/09/2023 11:41 AM ASSISTANT INFANT TODDLER TEACHER 02/09/2023 3:38 PM ASSISTANT INFANT TODDLER TEACHER Narrative [facility] - 02/11/2023 2:49 PM ASSISTANT INFANT TODDLER TEACHER Testing performed by [facility] Microbiology Laboratory ([phone]) Organism Antibiotic Method Susceptibility Enterococcus faecalis Daptomycin [...] GENERAL ORDERABLES Final Result Performing Organization Address [facility] Co de Phone Number [facility] [place] [address] * (ABNORMAL) Urinalysis reflex to microscopic (02/09/2023 11:41 AM ASSISTANT INFANT TODDLER TEACHER) Color, ur Yellow Yellow [facility] Clarity, ur Cloudy(A) Clear [facility] Specific gravity, ur 1.010 1.003 - 1.030 [facility] pH, urine 6.0 [facility] Comment: Interpretive Data ? Urine pH is affected by diet, medications, systemic acid-base disturbances, and renal tubular function. ??pH may affect urinary stone formation. ??For example, urine pH below 6.0 may help reduce the tendency for calcium phosphate stones and pH greater than 6.0 may reduce the tendency for uric acid stone formation. Source: [email or web address] Current Interpretive Data was last revised on 2017 Protein, ur ql Negative Negative [facility] Glucose, ur ql Negative Negative [facility] Ketones, ur Negative Negative [facility] Bilirubin, ur Negative Negative [facility] Blood, ur Negative Negative [facility] Urobilinogen, ur <2.0 <2.0 mg/dL [facility] Nitrite, ur Negative Negative [facility] Leukocyte esterase, ur 3+(A) Negative [facility] UA reflex comment Reflex to microscopic UA will be performed. [facility] Urine, in and out catheter 02/09/2023 11:41 AM ASSISTANT INFANT TODDLER TEACHER 02/09/2023 3:08 PM ASSISTANT INFANT TODDLER TEACHER Poncho Melgar MD LAB URINE ORDERABLES Final Result Performing Organization Address [facility] Co de Phone Number JUAN JOSE GUEVARA [facility] Department [place] [address] documented in this encounter Visit Diagnoses Diagnosis Complicated UTI (urinary tract infection) documented in this encounter Care Teams Senior Validation Engineer Relationship Specialty Start Date End Date Phan Garvin MD PCP - General Family Medicine 09/14/22 Phan Garvin MD Family Medicine 09/14/22 documented as of this encounter
--- OUTSIDE RECORDS SUMMARY | 2024-03-15 17:52 | XMS_ITS | Encounter Summary ---
Author Organization [facility] Address [address] [place] [address] Care Team Providers Care Onboarding Specialist Name Role Phone Phan Garvin MD Primary Care Provider Reason for Visit * Reason Comments Atrial Fibrillation Encounter Details Date Type Department Care Team (Late st Contact Info) Description 05/11/2022 3:45 PM CHIEF CLERK SHELTER Office Visit [facility] Cardiology [address] [place] [address] Siddharth Jennings MD [address] [place] [address] Paroxysmal atrial fibrillation (CMS/HCC) (HCC) (Primary Dx) Social History Tobacco Use Types Packs/Day Years Used Date Smoking Tobacco: Never Tobacco Cessation:Counseling Given: Not Answered Alcohol Use Standard Drinks/Week Comments Yes 0 (1 standard drink = 0.6 oz pur e alcohol) Comments Unknown Sex and Gender Information Value Date Recorded Sex Assigned at Not on file Legal Sex Female 7:11 PM CHIEF CLERK SHELTER Gender Identity Not on file Sexual Orientation Not on file 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 Not on file Not on file documented as of this encounter Last Filed Vital Signs Vital Sign Reading Time Taken Comments Blood Pressure 124/76 05/11/2022 3:44 PM CHIEF CLERK SHELTER Pulse 84 05/11/2022 3:44 PM CHIEF CLERK SHELTER Temperature - - Respiratory Rate - - Oxygen Saturation 97% 05/11/2022 3:44 PM CHIEF CLERK SHELTER Inhaled Oxygen Concentration - - Weight 77.6 kg (171 lb) 05/11/2022 3:44 PM CHIEF CLERK SHELTER Height 160 cm (5' 3 ) 05/11/2022 3:44 PM CHIEF CLERK SHELTER Body Mass Index 30.29 05/11/2022 3:44 PM CHIEF CLERK SHELTER documented in this encounter Progress Notes * Siddharth Jennings MD - 05/11/2022 3:45 PM CST [facility] FOLLOW UP 05/11/2022 Rohini Peralta is a 81 y.o. female who presents for follow up of atrial fibrillation. This is apatient that I saw in consultation at [facility] in February of 2022 when she [...] by mouth, Disp: , Rfl: ??? vit C,R-Pq-lennd-lutein-zeaxan (PreserVision AREDS-2) 250-90-40-1 mg capsule, Take by [...] 3 months or p.r.n. Siddharth Jennings MD F CLERK SHELTER documented in this encounter Plan of Treatment Not on file documented as of this encounter Visit Diagnoses Diagnosis Paroxysmal atrial fibrillation (CMS/HCC) (HCC)- Primary Atrial fibrillation documented in this encounter Care Teams Onboarding Specialist Relationship Specialty Start Date End Date Phan Garvin MD PCP - General Family Medicine 03/13/21 09/13/22 documented as of this encounter
--- OUTSIDE RECORDS SUMMARY | 2024-03-15 17:52 | XMS_ITS | Encounter Summary ---
Author Organization [facility] Address [address] [place] [address] Phone Care Team Providers Care Duplicating Machine Mechanic Name Role Phone Phan Garvin MD Primary Care Provider [phone] Phan Garvin MD Unavailable [phone] Reason for Visit * OBGYN (Routine) - Closed Specialty Diagnoses / Procedures Referred By Contac t Referred To Contact Diagnoses Complicated UTI (urinary tract infection) History of pelvic surgery Procedures Cystourethroscopy - Poncho Melgar MD [address] [place] [address] Phone: tel: fax: [facility] (All Locations) Referral ID Status Reason Start Date Expiration Date Visits Re quested Visits Authorized [id number] Closed 01/08/2023 02/07/2024 1 1 Encounter Details Date Type Department Care Team (Latest Contact Info) Description 02/09/2023 9:00 AM MECHANICAL REPAIR WORKER Procedure visit [facility] Obstetrics and Gynecology [address] 7th [address] [place] [address] Poncho Melgar MD [address] [place] [address] Lesion of bladder (Primary Dx); [...] file Legal Sex Female 7:11 PM MECHANICAL REPAIR WORKER Gender Identity Not on file Sexual [...] Large Ketones, ur, POC Negative Negative Specific [place], POC 1.005 1.003 - 1.030 Blood, ur, POC Moderate (A) Negative pH, ur, POC 5.0 5.0 - 8.0 Protein, ur, POC Negative Negative Urobilinogen, urine, POC 0.2 0.2 - 1.0 mg/dL Nitrite, ur, POC Negative Negative Leukocytes, ur, POC Large (A) Negative Lot Number [id number] Cystourethroscopy was performed with a 70 degree [...] surgeon was present for the entire operation. ANICAL REPAIR WORKER documented in this encounter Miscellaneous Notes * Addendum Note - Brielle Aguilar RMA - 02/09/2023 9:00 AM CSTAddended by: BRIELLE AGUILAR on: 02/09/2023 11:38 AM Modules accepted: Orders ANICAL REPAIR WORKER documented in this encounter Plan of Treatment Not on file documented as of this encounter Results * (ABNORMAL) Urine culture Urine, in and out catheter (02/09/2023 11:41 AM MECHANICAL REPAIR WORKER) Report Final Report: Greater than or equal to 100,000 colonies/mL of Enterococcus faecalis 10,000 to 100,000 colonies/mL of Escherichia coli (.) [facility] Organism ENTEROCOCCUS FAECALIS [facility] Organism ESCHERICHIA COLI [facility] Urine, in and out catheter 02/09/2023 11:41 AM MECHANICAL REPAIR WORKER 02/09/2023 3:38 PM MECHANICAL REPAIR WORKER Narrative [facility] - 02/11/2023 2:49 PM MECHANICAL REPAIR WORKER Testing performed by [facility] ([phone]) Organism Antibiotic Method Susceptibility Enterococcus faecalis Daptomycin [...] GENERAL ORDERABLES Final Result Performing Organization Address [facility] Co de Phone Number [facility] Department [place] [address] * (ABNORMAL) Urinalysis reflex to microscopic (02/09/2023 11:41 AM MECHANICAL REPAIR WORKER) Color, ur Yellow Yellow [facility] Clarity, ur Cloudy(A) Clear [facility] Specific gravity, ur 1.010 1.003 - 1.030 [facility] pH, urine 6.0 [facility] Comment: Interpretive Data ? Urine pH is affected by diet, medications, systemic acid-base disturbances, and renal tubular function. ??pH may affect urinary stone formation. ??For example, urine pH below 6.0 may help reduce the tendency for calcium phosphate stones and pH greater than 6.0 may reduce the tendency for uric acid stone formation. Source: [facility] [employer] Current Interpretive Data was last revised on 2017 Protein, ur ql Negative Negative [facility] Glucose, ur ql Negative Negative [facility] Ketones, ur Negative Negative [facility] Bilirubin, ur Negative Negative [facility] Blood, ur Negative Negative [facility] Urobilinogen, ur <2.0 <2.0 mg/dL [facility] Nitrite, ur Negative Negative [facility] Leukocyte esterase, ur 3+(A) Negative [facility] UA reflex comment Reflex to microscopic UA will be performed. [facility] Urine, in and out catheter 02/09/2023 11:41 AM MECHANICAL REPAIR WORKER 02/09/2023 3:08 PM MECHANICAL REPAIR WORKER Poncho Melgar MD LAB URINE ORDERABLES Final Result Performing Organization Address [facility] Co de Phone Number [facility] Department [place] [address] documented in this encounter Visit Diagnoses Diagnosis Lesion of bladder- Primary Unspecified disorder of bladder Complicated UTI (urinary tract infection) History of pelvic surgery Complicated UTI (urinary tract infection) documented in this encounter Orders Procedure Count Last Ordered Date First Orde red Date CYSTOURETHROSCOPY 1 02/09/2023 documented in this encounter Care Teams Duplicating Machine Mechanic Relationship Specialty Start Date End Date Phan Garvin MD PCP - General Family Medicine 09/14/22 Phan Garvin MD Family Medicine 09/14/22 documented as of this encounter
--- OUTSIDE RECORDS SUMMARY | 2024-03-15 17:52 | XMS_ITS | Encounter Summary ---
Author Organization [facility] Address [address] [place] [address] Phone Care Team Providers Care Wood Model Builder Name Role Phone Phan Garvin MD Primary Care Provider [phone] Phan Garvin MD Unavailable [phone] Reason for Visit * Reason Onset Date Comments UACX result 01/29/2023 Encounter Details Date Type Department Care Team (Late st Contact Info) Description 01/29/2023 Telephone [facility] Obstetrics and Gynecology [facility] [address] 7th [address] [place] [address] Alyson Brown RN UACX result Social History Tobacco Use Types Packs/Day Years Used Date Smoking Tobacco: Never Alcohol Use Standard Drinks/Week Comments Yes 0 (1 standard drink = 0.6 oz pur e alcohol) Comments No Sex and Gender Information Value Date Recorded Sex Assigned at Not on file Legal Sex Female 7:11 PM CLAIM TRAINEE Gender Identity Not on file Sexual Orientation [...] on: 01/29/2023 10:28 AM Modules accepted: Orders M TRAINEE * Telephone Encounter - Alyson Brown RN - 01/29/2023 10:25 AM CLAIM TRAINEE Call received from patient and reviewed UACX result and antibiotic instructions. Patient very upsetthat she continues to have UTI Began crying. She has appt 02/09/23 for UDS/Cysto. Will have SHANNAN donefollowing 10 days of antibiotic. M TRAINEE * Telephone Encounter - Alyson Brown RN - 01/29/2023 9:04 AM CST LMTC M TRAINEE * Telephone Encounter - Alyson Brown RN - 01/29/2023 9:03 AM CST ----- Message from Poncho Melgar MD sent at 01/28/2023 8:55 PM CLAIM TRAINEE ----- Please offer macrobid 100mg po bid x 10 days. SHANNAN upon completion. M TRAINEE documented in this encounter Plan of Treatment Scheduled Orders Name Type Priority Associated Diagnoses Orde r Schedule Urine culture Urine, clean voided Microbiology Routine Recurrent UTI Expected: 01/29/2023, Expires: 01/30/2024 documented as of this encounter Visit Diagnoses Diagnosis Recurrent UTI- Primary Urinary tract infection, site not specified documented in this encounter Care Teams Wood Model Builder Relationship Specialty Start Date End Date Phan Garvin MD PCP - General Family Medicine 09/14/22 Phan Garvin MD Family Medicine 09/14/22 documented as of this encounter
--- OUTSIDE RECORDS SUMMARY | 2024-03-15 17:52 | XMS_ITS | Encounter Summary ---
Author Organization [facility] Address [address] [place] [address] Phone Care Team Providers Care Sintering Press Operator Name Role Phone Phan Garvin MD Primary Care Provider [phone] Phan Garvin MD Unavailable [phone] Encounter Details Date Type Department Care Team (Late st Contact Info) Description 01/19/2023 Telephone [facility] Obstetrics and Gynecology [address] 7th [address] [place] [address] Maria Esther Brown, RN Social History Tobacco Use Types Packs/Day Years Used Date Smoking Tobacco: Never Alcohol Use Standard Drinks/Week Comments Yes 0 (1 standard drink = 0.6 oz pur e alcohol) Comments No Sex and Gender Information Value Date Recorded Sex Assigned at Not on file Legal Sex Female 7:11 PM ANALYSIS LEAD Gender Identity Not on file Sexual Orientation Not on file 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 YSIS LEAD * Telephone Encounter - Maria Esther Brown RN - 01/19/2023 2:32 PM CST ----- Message from Poncho Melgar MD sent at 01/19/2023 1:41 PM ANALYSIS LEAD ----- Can she take nitrofurantoin? Didn't see a GFR in chart. If can, macrobid 100mg po bid x 5 days. YSIS LEAD documented in this encounter Plan of Treatment Not on file documented as of this encounter Visit Diagnoses Not on filedocumented in this encounter Care Teams Sintering Press Operator Relationship Specialty Start Date End Date Phan Garvin MD PCP - General Family Medicine 09/14/22 Phan Garvin MD Family Medicine 09/14/22 documented as of this encounter
--- OUTSIDE RECORDS SUMMARY | 2024-03-15 17:52 | XMS_ITS | Encounter Summary ---
Author Organization [facility] Address [address] [place] [address] Phone Care Team Providers Care Plating Equipment Tender Name Role Phone Phan Garvin MD Primary Care Provider [phone] Phan Garvin MD Unavailable [phone] Encounter Details Date Type Department Care Team (Late st Contact Info) Description 01/08/2023 Telephone [facility] Obstetrics and Gynecology [address] 7th [address] [place] [address] Maria Esther Brown, RN Social History Tobacco Use Types Packs/Day Years Used Date Smoking Tobacco: Never Alcohol Use Standard Drinks/Week Comments Yes 0 (1 standard drink = 0.6 oz pur e alcohol) Comments No Sex and Gender Information Value Date Recorded Sex Assigned at Not on file Legal Sex Female 7:11 PM DIRECTOR LEARNING AND DEVELOPMENT Gender Identity Not on file Sexual Orientation Not on file 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 Sent message to [facility] for sending supplies to patient's home. documented in this encounter Plan of Treatment Not on file documented as of this encounter Visit Diagnoses Not on filedocumented in this encounter Care Teams Plating Equipment Tender Relationship Specialty Start Date End Date Phan Garvin MD PCP - General Family Medicine 09/14/22 Phan Garvin MD Family Medicine 09/14/22 documented as of this encounter
--- OUTSIDE RECORDS SUMMARY | 2024-03-15 17:52 | XMS_ITS | Encounter Summary ---
Author Organization [facility] Address [address] [place] [address] Care Team Providers Care Director Of Career Services Name Role Phone Phan Garvin MD Primary Care Provider [phone] Encounter Details Date Type Department Care Team (Late st Contact Info) Description 03/09/2022 Telephone [facility] Cardiology [address] [facility] [address] [place] [address] Siddharth Jennings MD [address] [facility] [address] [place] [address] Social History Tobacco Use Types Packs/Day Years Used Date Smoking Tobacco: Never Alcohol Use Standard Drinks/Week Comments Yes 0 (1 standard drink = 0.6 oz pur e alcohol) Comments Unknown Sex and Gender Information Value Date Recorded Sex Assigned at Not on file Legal Sex Female 7:11 PM SALES COACH Gender Identity Not on file Sexual Orientation [...] Sending to CT and F as FYI S COACH * Telephone Encounter - Albina Figueroa RN - 03/15/2022 10:30 AM CST Attempted to call pt from 3 different lines. 2 of which do not show up as private. Lm to hold eliquis until her f/u with [facility] on 04.04 and she can discuss with him at that appt. S COACH * Telephone Encounter - Tami Manley - 03/15/2022 9:13 AM CST Pt returned call. Informed her per [facility] she should stop her eliquis. Pt states she has been holding her eliquis but wants to know what to do about not taking any blood thinners. Requesting call back from nurse. States her phone does not get private calls and she did not get a VM. Contact: S COACH S COACH * Telephone Encounter - Albina Figueroa RN - 03/14/2022 3:44 PM CST Lm on vm per [facility] S COACH * Telephone Encounter - Virginia Frias - 03/14/2022 1:15 PM SALES COACH Pt still awaiting call regarding previous message. Also pt insurance changed, she can no longer us [facility], pt new pharm is [facility] at [phone] S COACH * Telephone Encounter - Albina Figueroa RN - 03/14/2022 8:45 AM CST Will forward to [facility]. See below S COACH * Telephone Encounter - Tami Manley - 03/14/2022 8:34 AM CST Pt states she has held and then resumed eliquis 3 times already. States every time she takes the second pill she starts bleeding. Pt is asking if it is safe for her to be on eliquis with this occurring or if her dose should possibly be reduced. Please advise. Thank you. Contact: S COACH * Telephone Encounter - Carol Darnell RN - 03/09/2022 2:01 PM SALES COACH Spoke with pt, she reports her bleeding [...] next week-she verbalized understanding. Will forward to [facility]. Please advise, thank you! S COACH * Telephone Encounter - Carol Darnell RN - 03/09/2022 10:19 AM SALES COACH LM on requesting callback. S COACH * Telephone Encounter - Tami Manley - 03/09/2022 9:15 AM CST Pt states she was bleeding profusely so she was instructed to hold eliquis for 3 days. States she started taking eliquis again yesterday and she is back to bleeding again. Pt thinks the eliquis dosage is too much for her. Requesting call to discuss. Contact: S COACH documented in this encounter Plan of Treatment Not on file documented as of this encounter Visit Diagnoses Not on filedocumented in this encounter Care Teams Director Of Career Services Relationship Specialty Start Date End Date Phan Garvin MD PCP - General Family Medicine 03/13/21 09/13/22 documented as of this encounter
--- OUTSIDE RECORDS SUMMARY | 2024-03-15 17:52 | XMS_ITS | Encounter Summary ---
Author Organization [facility] Address [address] [place] [address] Care Team Providers Care Veterinary Milk Specialist Name Role Phone Phan Garvin MD Primary Care Provider [phone] Reason for Visit * Diagnostic Imaging (Routine) - Closed Specialty Diagnoses / Procedures Referred By Dacia t Referred To Contact Diagnoses New onset atrial fibrillation (CMS/HCC) (HCC) Procedures NM MPI SPECT (Rest and/or Stress) Multiple Studies Sarah Kasepr NP [address] [facility] [address] [place] [address] Phone: tel: fax: [facility] Referral ID Status Reason Start Date Expiration Date Visits Re quested Visits Authorized [id number] Closed 04/03/2022 09/30/2022 1 1 Encounter Details Date Type Department Care Team (Latest Contact Info) Description 04/06/2022 8:15 AM ELECTRONIC OPERATOR Ancillary Procedure [facility] Cardiology [address] [place] [address] New onset atrial fibrillation (CMS/HCC) (HCC) Social History Tobacco Use Types Packs/Day Years Used Date Smoking Tobacco: Never Alcohol Use Standard Drinks/Week Comments Yes 0 (1 standard drink = 0.6 oz pur e alcohol) Comments Unknown Sex and Gender Information Value Date Recorded Sex Assigned at Not on file Legal Sex Female 7:11 PM ELECTRONIC OPERATOR Gender Identity Not on file Sexual Orientation Not on file 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 Not on file Not on file documented as of this encounter Plan of Treatment Not on file documented as of this encounter Procedures Procedure Name Priority Date/Time Associated Diagnosis Comments NM MPI SPECT (REST AND/OR STRESS) MULTIPLE STUDIES Schedule Routine, Read Routine (OP Routine) 04/06/2022 9:50 AM ELECTRONIC OPERATOR New onset atrial fibrillation (CMS/HCC) (HCC) documented in this encounter Results * NM MPI SPECT (Rest and/or Stress) Multiple Studies (04/06/2022 9:50 AM ELECTRONIC OPERATOR) Anatomical Region Laterality Modality Body N/A Nuclear Medicine 04/06/2022 8:26 AM ELECTRONIC OPERATOR Narrative 04/06/2022 11:54 AM ELECTRONIC OPERATOR [facility] Cardiology [address] [address] [address] [address] P:[phone] P:[phone] MPI Imaging Report Patient Name: ISRAEL JEAN A : [id number] Study Date: 04/06/2022 8:26:41 AM Gender: F Tech: [facility] Location: [place] Ref.Provider: SARAH KASPER Height(Cm): 160 BSA: Weight(Kg): [...] Signed By: Isidro Conde MD 2022-04-06 11:54:25 ELECTRONIC OPERATOR Electronically Signed By: Isidro Conde MD 2022-04-06 11:54:25 ELECTRONIC OPERATOR CC: CC: Procedure Note Isidro Conde MD - 04/06/2022 [facility] Cardiology [address], [place] [address] [address], [place] [address] P:[phone] P:[phone] MPI Imaging Report Patient Name: ISRAEL JEAN Poornima ID: [id number] : [id number] Date: 04/06/2022 8:26:41 AM Gender: FAccession #: [id number] [facility] [place] Ref.Provider: SARAH KASPERHeight(Cm): 160 BSA: Weight(Kg): 76.7 [...] Signed By: Isidro Conde MD 2022-04-06 11:54:25 ELECTRONIC OPERATOR Electronically Signed By: Isidro Conde MD 2022-04-06 11:54:25 ELECTRONIC OPERATOR CC: CC: Sarah Ann Neida DISTILLER IMG NM PROCEDURES Final R esult documented [...] Perfusion Imaging Adjunct Given 04/06/2022 9:51 AM ELECTRONIC OPERATOR 0.4 mg tc-99m sestamibi unit dose injection 10 millicurie 10 millicurie, intravenous, Once in imaging, radiopharmaceutical, Starting on Kathya 04/06/22 at 0847, For 1 dose, Indications: Diagnostic RadiographyIndications:Diag nostic Radiography Given 04/06/2022 8:47 AM ELECTRONIC OPERATOR 10 millicuries tc-99m sestamibi unit dose injection 33 millicurie 33 millicurie, intravenous, Once in imaging, radiopharmaceutical, Starting on Kathya 04/06/22 at 0950, For 1 dose, Indications: Diagnostic RadiographyIndications:Diag nostic Radiography Given 04/06/2022 9:51 AM ELECTRONIC OPERATOR 33 millicuries documented in this encounter Care Teams Veterinary Milk Specialist Relationship Specialty Start Date End Date Phan Garvin MD PCP - General Family Medicine 03/13/21 09/13/22 documented as of this encounter
--- OUTSIDE RECORDS SUMMARY | 2024-03-15 17:52 | XMS_ITS | Encounter Summary ---
Author Organization [facility] Address [address] [place] [address] Phone Care Team Providers Care Sealer Operator Name Role Phone Phan Garvin MD Primary Care Provider [phone] Phan Garvin MD Unavailable [phone] Reason for Visit * Reason Onset Date Comments Scheduling Appointments 01/10/2023 Encounter Details Date Type Department Care Team (Late st Contact Info) Description 01/10/2023 Telephone [facility] Obstetrics and Gynecology [address] [facility] 7th Floor [address] [place] [address] Mitra Malone, MATY [address] OBGYN PELVIC MED/RECONSTRUCT SURG, [facility] [address] [place] [address] Scheduling Appointments Social History Tobacco Use Types Packs/Day Years Used Date Smoking Tobacco: Never Alcohol Use Standard Drinks/Week Comments Yes 0 (1 standard drink = 0.6 oz pur e alcohol) Comments No Sex and Gender Information Value Date Recorded Sex Assigned at Not on file Legal Sex Female 7:11 PM UTILITY WORKER PRODUCTION Gender Identity Not on file Sexual Orientation Not on file 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
--- OUTSIDE RECORDS SUMMARY | 2024-03-15 17:53 | XMS_ITS | Encounter Summary ---
Author Organization [facility] Address [address] [place] [address] Care Team Providers Care Program Management Specialist Name Role Phone Angelica Frankel MD Primary Care Provider [phone] Reason for Referral * Diagnostic Imaging (Routine) - Closed Specialty Diagnoses / Procedures Referred By Chuyac t Referred To Contact Diagnoses Right knee pain, unspecified chronicity Procedures XR Knee Right 3 Views Rodo Padgett MD [address] [place] [address] DR GARNER [address] [place] [place] [address] Phone: tel: fax: [address] [address] Referral ID Status Reason Start Date Expiration Date Visits Re quested Visits Authorized [id number] Closed 09/24/2019 04/04/2021 1 1 Encounter Details Date Type Department Care Team (Late st Contact Info) Description 09/25/2019 9:10 AM CDT Hospital Encounter [facility] OP INTERIM Rodo Padgett MD [facility] [address] GARNER [address] [place] [place] [address] Right knee pain, unspecified chronicity Social History Tobacco Use Types Packs/Day Years Used Date Smoking Tobacco: Never Alcohol Use Standard Drinks/Week Comments Yes 0 (1 standard drink = 0.6 oz pur e alcohol) Comments Unknown Sex and Gender Information Value Date Recorded Sex Assigned at Not on file Legal Sex Female 7:11 PM FORGE HELPER Gender Identity Not on file Sexual [...] Laterality Modality Lower Extremities, Knee Right [facility] 09/25/2019 11:1 3 AM CDT Narrative 09/25/2019 11:15 AM CDT Patient Name: ISRAEL JEAN ?Ordering Dr: Rodo Padgett MD ?? D.O.B: 1940 ? Exam Date: 09/25/19 ?? 0912 ?? Age: 78 ?Sex: Female ? MR#: [id number] ?? Loc: ? RADIOLOGY REPORT ?? Order #[id number] ?? Radiology ? Knee RT 3 View [...] 11:15 AM ?? T: ? Report ID: [id number] ?? Reading Location: ??[id number] ? REPORT ELECTRONICALLY SIGNED IN OTHER VENDOR SYSTEM ?? Resulting Agency Comment O Procedure Note Siddharth Car MD - 09/25/2019 Patient Name: ISRAEL JEAN Dr: Rodo Padgett MD D.O.B: 1940 Exam Date: 09/25/19911 Age: 78 Sex: Female MR#: [id number] Loc: RADIOLOGY REPORT Order #[id number] Radiology Knee RT 3 View (STANDARD) Signed [...] Siddharth Car M.D. MJ T: Report ID: [id number] Reading Location: [id number] REPORT ELECTRONICALLY SIGNED IN OTHER VENDOR SYSTEM Rodo Padgett MD IMG XR PROCEDURES Final Re sult documented in this encounter Visit Diagnoses Diagnosis Right knee pain, unspecified chronicity documented in this encounter Care Teams Program Management Specialist Relationship Specialty Start Date End Date Angelica Frankel MD [address] [place] [address] PCP - General Emergency Medicine 10/16/18 03/12/21 documented as of this encounter
--- OUTSIDE RECORDS SUMMARY | 2024-03-15 17:53 | XMS_ITS | Encounter Summary ---
Author Organization [facility] Address [address] [facility] [address] [place] [address] Care Team Providers Care Hassock Maker Name Role Phone hPan Garvin MD Primary Care Provider + [phone] Reason for Visit * Reason Onset Date Comments Covid-19 Home Monitoring 03/14/2021 enrollm ent call day 1 (review) Encounter Details Date Type Department Care Team (Late st Contact Info) Description 03/14/2021 Telephone [facility] Accountable Care Organization [address] [place] [address] Lara Oscar MA [address] [place] [address] Covid-19 Home Monitoring (enrollment call day 1 (review)) Social History Tobacco Use Types Packs/Day Years Used Date Smoking Tobacco: Never Alcohol Use Standard Drinks/Week Comments Yes 0 (1 standard drink = 0.6 oz pur e alcohol) Comments Unknown Sex and Gender Information Value Date Recorded Sex Assigned at Not on file Legal Sex Female 7:11 PM BOMBSIGHT SPECIALIST Gender Identity Not on file Sexual Orientation Not on file 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 The patient was contacted via phone for enrollment in the program, but could not be reached to accept or decline. SIGHT SPECIALIST documented in this encounter Plan of Treatment Not on file documented as of this encounter Visit Diagnoses Not on filedocumented in this encounter Additional Health Concerns Infection Onset Date Last Indicated Resolved Time COVID19 03/13/2021 03/13/2021 03/27/2021 3:05 AM BOMBSIGHT SPECIALIST documented as of this encounter Care Teams Hassock Maker Relationship Specialty Start Date End Date Phan Garvin MD PCP - General Family Medicine 03/13/21 09/13/22 documented as of this encounter
--- OUTSIDE RECORDS SUMMARY | 2024-03-15 17:53 | XMS_ITS | Encounter Summary ---
Author Organization [facility] Address [address] [facility] [address] [place] [address] Care Team Providers Care Bottle Sorter Name Role Phone Phan Garvin MD Primary Care Provider [phone] Encounter Details Date Type Department Care Team (Late st Contact Info) Description 01/03/2022 Orders Only [facility] Outpatient Center [address] [address] Radha Washburn PA [address] [place] [address] [address] [place] [address] Social History Tobacco Use Types Packs/Day Years Used Date Smoking Tobacco: Never Alcohol Use Standard Drinks/Week Comments Yes 0 (1 standard drink = 0.6 oz pur e alcohol) Comments Unknown Sex and Gender Information Value Date Recorded Sex Assigned at Not on file Legal Sex Female 7:11 PM FILE MACHINE OPERATOR Gender Identity Not on file [...] documented as of this encounter Care Teams Bottle Sorter Relationship Specialty Start Date End Date Phan Garvin MD PCP - General Family Medicine 03/13/21 09/13/22 documented as of this encounter
--- OUTSIDE RECORDS SUMMARY | 2024-03-15 17:53 | XMS_ITS | Encounter Summary ---
Author Organization [facility] Address [address] [address] Care Team Providers Care Biztalk Architect Name Role Phone Angelica Frankel MD Primary Care Provider [phone] Reason for Referral * (Routine) - Closed Specialty Diagnoses / Procedures Referred By Contac t Referred To Contact Diagnoses Primary osteoarthritis of right knee Procedures Large Joint (Hip, Knee, Shoulder) Injection: R knee Rodo Padgett MD [address] [place] [address] DR GARNER [address] [place] [address] Phone: tel: fax: [facility] Referral ID Status Reason Start Date Expiration Date Visits Re quested Visits Authorized [id number] Closed 09/25/2019 04/05/2021 1 1 * Diagnostic Imaging (Routine) - Closed Specialty Diagnoses / Procedures Referred By Contac t Referred To Contact Diagnoses Right knee pain, unspecified chronicity Procedures XR Knee Right 3 Views Rodo Padgett MD [address] [place] [address] DR GARNER [address] [place] [address] Phone: tel: fax: [facility] [address] [place] [address] Referral ID Status Reason Start Date Expiration Date Visits Re quested Visits Authorized [id number] Closed 09/24/2019 04/04/2021 1 1 Reason for Visit * Reason Comments Pain Encounter Details Date Type Department Care Team (Late st Contact Info) Description 09/25/2019 9:00 AM CDT Office Visit [facility] Orthopedics and Sports Medicine [address] [place] [address] [address] [place] [address] Rodo Padgett MD [address] [place] [address] Primary osteoarthritis of right knee (Primary Dx); Right knee pain, unspecified chronicity Social History Tobacco Use Types Packs/Day Years Used Date Smoking Tobacco: Never Alcohol Use Standard Drinks/Week Comments Yes 0 (1 standard drink = 0.6 oz pur e alcohol) Comments Unknown Sex and Gender Information Value Date Recorded Sex Assigned at Not on file Legal Sex Female 7:11 PM AUDIO PRODUCTION ENGINEER Gender Identity Not on file Sexual Orientation Not on file 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 She does take some cfum-zzc-slehamo anti-inflammatories when it is really bad. PAST [...] the medial lateral compartments. She does have xfry-re-lznx wear of the patellofemoral joint with a [...] Procedure Name Priority Date/Time Associated Diagnosis Comments WA ARTHROCENTESIS ASPIR&/INJ MAJOR JT/BURSA W/O US Routine 09/25/2019 9:00 AM CDT Primary osteoarthritis of right knee documented in this encounter Results * XR Knee Right 3 Views (09/25/2019 9:12 AM CDT) Anatomical Region Laterality Modality Lower Extremities, Knee Right [facility] 09/25/2019 11:1 3 AM CDT Narrative 09/25/2019 11:15 AM CDT Patient Name: ISRAEL JEAN ?Ordering Dr: Dayron,Rodo L. MD ?? D.O.B: 1940 ? Exam Date: /16/20 ?? 0912 ?? Age: 78 ?Sex: Female ? MR#: [id number] ?? Loc: ? RADIOLOGY REPORT ?? Order #[id number] ?? Radiology ? Knee RT 3 View [...] 11:15 AM ?? T: ? Report ID: [id number] ?? Reading Location: ??[id number] ? REPORT ELECTRONICALLY SIGNED IN OTHER VENDOR SYSTEM ?? Resulting Agency Comment O Procedure Note Siddharth Car MD - 09/25/2019 Patient Name: ISRAEL JEAN Karrijoann Dr: Rodo Padgett MD D.O.B: 1940 Exam Date: 09/25/19911 Age: 78 Sex: Female MR#: [id number] Loc: RADIOLOGY REPORT Order #[id number] Radiology Knee RT 3 View (STANDARD) Signed [...] Siddharth Car M.D. MJ T: Report ID: [id number] Reading Location: [place] [address] REPORT ELECTRONICALLY SIGNED IN OTHER VENDOR SYSTEM us Rodo Padgett MD IMG XR PROCEDURES Final Re sult * WA ARTHROCENTESIS ASPIR&/INJ MAJOR JT/BURSA W/O US (09/25/2019 [...] 09/25/2019 added in this encounter Care Teams Biztalk Architect Relationship Specialty Start Date End Date Angelica Frankel MD [facility] S [facility] [address] [place] [address] PCP - General Emergency Medicine 10/16/18 03/12/21 documented as of this encounter
--- OUTSIDE RECORDS SUMMARY | 2024-03-15 17:53 | XMS_ITS | Encounter Summary ---
Author Organization [facility] Address [address] [facility] [address] [place] [address] Care Team Providers Care Rate Setter Name Role Phone Phan Garvin MD Primary Care Provider [phone] Reason for Visit * Reason Comments UTI Sx started 4 days ag o lower back ache frequent urination blood in urine and burning Encounter Details Date Type Department Care Team (Late st Contact Info) Description 12/31/2021 7:45 PM CDT Office Visit [facility] Outpatient Center [address] [address] [place] [address] [place] [address] [address] [place] [address] Acute cystitis with hematuria (Primary Dx) Social History Tobacco Use Types Packs/Day Years Used Date Smoking Tobacco: Never Tobacco Cessation:Counseling Given: Not Answered Alcohol Use Standard Drinks/Week Comments Yes 0 (1 standard drink = 0.6 oz pur e alcohol) Comments Unknown Sex and Gender Information Value Date Recorded Sex Assigned at Not on file Legal Sex Female 7:11 PM MEDICAL CODING SPECIALIST Gender Identity Not on file Sexual [...] Everywhere. * Urinary Tract Infection in Women (Drawing Box Tender) (Iranian) documented in this encounter Ordered Prescriptions Prescription [...] on vacation got home this evening from [facility]. She had reached out to her urologist [...] Ketones, ur, POC Trace (A) Negative Specific [place], POC 1.015 1.005 - 1.030 Blood, ur, [...] worse. ??Contact your primary care doctor or COMMERCIAL APPRAISER if: ?? You have a fever. ?? [...] Large Ketones, ur, POC Trace(A) Negative Specific [place], POC 1.015 1.005 - 1.030 Blood, ur, POC Large(A) Negative pH, ur, POC 8.5(A) 5.0 - 8.0 Protein, ur, POC 300.(A) Negative Urobilinogen, urine, POC 0.2 0.2 - 1.0 mg/dL Nitrite, ur, POC Negative Negative Leukocytes, ur, POC Large(A) Negative Lot Number [id number] Urine 12/31/2021 7:56 PM CDT Rekha Cline NP POINT OF CARE TEST ORDERABLES F inal Result * (ABNORMAL) Urine culture Urine, clean voided (12/31/2021 7:49 PM CDT) Report Final Report: Greater than or equal to 100,000 colonies/mL of Proteus vulgaris/jennyfer seri (.) JUAN JOSE Comment:Testing performed by : [facility], [address] [facility] [place]., [address] Organism PROTEUS VULGARIS/JENNYFER SERI JUAN JOSE Urine, clean voided 12/31/2021 7:49 PM CDT 01/01/2022 12:27 AM CDT Narrative JUAN JOSE - 01/03/2022 3:02 PM CDT Testing performed by [facility] ([phone]) Organism Antibiotic Method Susceptibility Proteus vulgaris/hauseri Ampicillin [...] vulgaris/hauseri Piperacillin/Tazobactam INTER PRETATION Susceptible Rekha Cline KEY ENTRY OPERATOR LAB MICROBIOLOGY - [facility] NAIMA BARB Final Result JUAN JOSE [address] [address] Department [place] [address] documented in this encounter Visit Diagnoses Diagnosis [...] 03/29/2023 added in this encounter Care Teams Rate Setter Relationship Specialty Start Date End Date Phan Garvin MD PCP - General Family Medicine 03/13/21 09/13/22 documented as of this encounter
--- OUTSIDE RECORDS SUMMARY | 2024-03-15 17:53 | XMS_ITS | Encounter Summary ---
Author Organization [facility] Address [address] [facility] [address] [place] [address] Care Team Providers Care Medical Biller Coder Name Role Phone Phan Garvin MD Primary Care Provider Reason for Visit * Reason Comments Sinus Problem Earache Encounter Details Date Type Department Care Team (Late st Contact Info) Description 03/13/2021 1:30 PM WINDOWS LAPTOP TECHNICIAN Office Visit [facility] Outpatient Center [address] [address] Samantha Martinez, ORTHOPEDICALLY IMPAIRED TEACHER [address] [place], [place] [address] COVID-19 (Primary Dx) Social History Tobacco Use Types Packs/Day Years Used Date Smoking Tobacco: Never Alcohol Use Standard Drinks/Week Comments Yes 0 (1 standard drink = 0.6 oz pur e alcohol) Comments Unknown Sex and Gender Information Value Date Recorded Sex Assigned at Not on file Legal Sex Female 7:11 PM WINDOWS LAPTOP TECHNICIAN Gender Identity Not on file Sexual Orientation Not on file 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 Not on file Not on file Not on file documented as of this encounter Last Filed Vital Signs Vital Sign Reading Time Taken Comments Blood Pressure 140/100 03/13/2021 1:40 PM WINDOWS LAPTOP TECHNICIAN Pulse 86 03/13/2021 1:40 PM WINDOWS LAPTOP TECHNICIAN Temperature 37.4 ??C (99.4 ??F) 03/13/2021 1:40 PM CS T Respiratory Rate - - Oxygen Saturation 96% 03/13/2021 1:40 PM WINDOWS LAPTOP TECHNICIAN Inhaled Oxygen Concentration - - Weight 79.7 kg (175 lb 12.8 oz) 03/13/2021 1:40 PM WINDOWS LAPTOP TECHNICIAN Height 160 cm (5' 3 ) 03/13/2021 1:40 PM WINDOWS LAPTOP TECHNICIAN Body Mass Index 31.14 03/13/2021 1:40 PM WINDOWS LAPTOP TECHNICIAN documented in this encounter Patient Instructions * Patient Instructions* Samantha Martinez, ORTHOPEDICALLY IMPAIRED TEACHER - 03/13/2021 1:30 PM WINDOWS LAPTOP TECHNICIAN Images from the original note were not [...] and the virus that causes it. The [facility] Department will be reaching out [...] loosen secretions in the nose and lungs. Aiif-vko-gqmjmuz cold medicines will not shorten the length of time you???re sick, but they may be helpful for relieving the following symptoms: headache, cough, sore throat, and nasal and sinus congestion. If you take prescription medicines, ask your healthcare provider or pharmacist which vlly-wag-hajgkib medicines are safe to use. (Note: DO [...] yourself. Get rest and stay hydrated. Take dbjs-yyu-ygvphpn medicines to help you feel better. ??? [...] and need to call 911, notify the draw bench operator that you have or think you [...] with someone who is sick visit https://www.cdc .gov/coronavirus/2019-ncov/rcxsf-ljul-svpxcd/wofamk-jj-mkhmw-quarters.html For more information on COVID-19 and pets [...] after a single-dose vaccine [such as Bryn [employer]? s Gema vaccine]), or, are not expected [...] for example). For additional details, go to https://www.cdc.gov/coronavirus/2019-ncov/cw-fyx-rlnklqo/quarantine.html, or someone who is at high risk [...] breastfeed ??? Are taking any medications (prescription, vgnl-ooe-fhtcqmm, vitamins, and herbal products) HOW WILL I [...] to treat people with COVID-19. Go to https://www.fda.gov/pzlhplrhqwihqvlywhvgf-hly-a esponse/hij-xeedp-nrqtywewqo-znd-hykqvy-qfcdgekvp/emergency-useauthorization for information on theemergency use of other [...] to FDA MedWatch at www.fda.gov/medwatch or call 3-935-ARN-6858 or call . HOW CAN I LEARN MORE? Ask your health care provider. ??? Visit www.Ad.IQ.[employer] ??? Visit https://www.kfibn97ewmaqfirrnvmykdwiji.nih.gov/ ??? Contact your local or state public health department. WHAT IS AN EMERGENCY USE AUTHORIZATION (EUA)? The [place] FDA has made REGEN-COV (casirivimab and imdevimab) available under an emergency access mechanism called an EUA. The EUA is supported by a Bottom Painter of Health and Human Service (HHS) declaration [...] may no longer be used). Manufactured by: [employer] [address] [place] [id number] ??2020 [employer], [employer]. All rights reserved. Revised: 09/2020 OWS LAPTOP TECHNICIAN OWS LAPTOP TECHNICIAN documented in this encounter Progress Notes * [...] tenderness or frontal sinus tenderness. Mouth/Throat: Lips: [place]. Mouth: Mucous membranes are moist. Pharynx: Uvula [...] and the virus that causes it. The [facility] Department will be reaching out to [...] loosen secretions in the nose and lungs. Eqyy-dyh-dkfppyi cold medicines will not shorten the length of time you???re sick, but they may be helpful for relieving the following symptoms: headache, cough, sore throat, and nasal and sinus congestion. If you take prescription medicines, ask your healthcare provider or pharmacist which pzwz-yxt-szvakja medicines are safe to use. (Note: DO [...] yourself. Get rest and stay hydrated. Take ohkc-amh-fkydbfe medicines to help you feel better. ??? [...] and need to call 911, notify the draw bench operator that you have or think you [...] with someone who is sick visit https://www.cdc .gov/coronavirus/2019-ncov/epukp-pfvm-rlyccu/zfyuzo-fo-vtszn-quarters.html For more information on COVID-19 and pets [...] themselves and other patients. Samantha Martinez NP OWS LAPTOP TECHNICIAN documented in this encounter Plan of Treatment Not on file documented as of this encounter Procedures Procedure Name Priority Date/Time Associated Diagnosis Comments POC INFLUENZA A/B, COVID-19 ANTIGEN Routine 03/13/2021 2:00 PM WINDOWS LAPTOP TECHNICIAN COVID-19 documented in this encounter Results * (ABNORMAL) POC Influenza A/B, COVID-19 antigen (03/13/2021 2:00 PM WINDOWS LAPTOP TECHNICIAN) Influenza A Ag, POC Negative [facility] Influenza B Ag, POC Negative [facility] COVID-19 Ag POC Positive(A) Presumptive Negative, Invalid [facility] 03/13/2021 2:00 PM WINDOWS LAPTOP TECHNICIAN us Samantha Martinez NP POINT OF CARE TEST ORDERABLES Final Result [facility] [place] [address], [facility] documented in this encounter Visit Diagnoses Diagnosis COVID-19- Primary documented in this encounter Additional Health Concerns Infection Onset Date Last Indicated Resolved Time COVID: Suspected 03/13/2021 03/13/202103/1303/13/2021 2:00 PM WINDOWS LAPTOP TECHNICIAN COVID19 03/13/2021 03/13/2021 03/27/2021 3:05 AM WINDOWS LAPTOP TECHNICIAN documented as of this encounter Care Teams Medical Biller Coder Relationship Specialty Start Date End Date Phan Garvin MD PCP - General Family Medicine 03/13/21 09/13/22 documented as of this encounter
--- OUTSIDE RECORDS SUMMARY | 2024-03-15 17:53 | XMS_ITS | Encounter Summary ---
Author Organization [facility] Healthcare Address [address] [place] [address] Care Team Providers Care Front Desk Administrator Name Role Phone Phan Garvin MD Primary Care Provider [phone] Encounter Details Date Type Department Care Team (Latest Contact Info) Description 12/31/2021 7:49 PM CDT - 12/31/2021 11:59 PM CDT Hospital Encounter [address] [address] Acute cystitis with hematuria Discharge Disposition: Discharge to home or self care Social History Tobacco Use Types Packs/Day Years Used Date Smoking Tobacco: Never Alcohol Use Standard Drinks/Week Comments Yes 0 (1 standard drink = 0.6 oz pur e alcohol) Comments Unknown Sex and Gender Information Value Date Recorded Sex Assigned at Not on file Legal Sex Female 7:11 PM COMPENSATION BUSINESS PARTNER Gender Identity Not on file Sexual Orientation [...] JUAN JOSE ACOSTA Comment:Testing performed by : [facility], [address] [place]., [address] Organism PROTEUS VULGARIS/JENNYFER SERI JUAN JOSE ACOSTA Urine, clean voided 12/31/2021 7:49 PM CDT 01/01/2022 12:27 AM CDT Narrative JUAN JOSE ACOSTA - 01/03/2022 3:02 PM CDT Testing performed by [facility] Microbiology Laboratory ([phone]) Organism Antibiotic Method Susceptibility Proteus vulgaris/hauseri Ampicillin [...] MANI DAY Final Result JUAN JOSE ACOSTA [address] [address] Department [place] [address] documented in this encounter Visit Diagnoses Diagnosis Acute cystitis with hematuria documented in this encounter Care Teams Front Desk Administrator Relationship Specialty Start Date End Date Phan Garvin MD PCP - General Family Medicine 03/13/21 09/13/22 documented as of this encounter
--- OUTSIDE RECORDS SUMMARY | 2024-03-15 17:53 | XMS_ITS | Encounter Summary ---
Author Organization [facility] Medical Group Address [address] [id number] Care Team Providers Care Ui Developer Name Role Phone Phan Garvin MD Primary Care Provider [phone] Reason for Visit * Reason Onset Date Comments Test Results 01/03/2022 Encounter Details Date Type Department Care Team (Late st Contact Info) Description 01/03/2022 Telephone [facility] Medical [facility] Primary Care at [address] [address] Rekha Cline, MATY [address] [place] [address] [address] [place] [address] Test Results Social History Tobacco Use Types Packs/Day Years Used Date Smoking Tobacco: Never Alcohol Use Standard Drinks/Week Comments Yes 0 (1 standard drink = 0.6 oz pur e alcohol) Comments Unknown Sex and Gender Information Value Date Recorded Sex Assigned at Not on file Legal Sex Female 7:11 PM DRILLING ENGINEER Gender Identity Not on file Sexual Orientation Not on file 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 Pt ph [phone] documented in this encounter Plan of Treatment Not on file documented as of this encounter Visit Diagnoses Not on filedocumented in this encounter Care Teams Ui Developer Relationship Specialty Start Date End Date Phan Garvin MD PCP - General Family Medicine 03/13/21 09/13/22 documented as of this encounter
== END 2024-03-08 14:22 | disposition home or self-care (01) ==
PROVIDERS: Emergency Provider Emergency Medicine; PCP Family Medicine
DX: N39.0 Urinary tract infection, site not specified (principal); Z20.822 Contact with and (suspected) exposure to COVID-19; I48.91 Unspecified atrial fibrillation; E78.5 Hyperlipidemia, unspecified; E55.9 Vitamin D deficiency, unspecified; E53.9 Vitamin B deficiency, unspecified; H35.30 Unspecified macular degeneration; K21.9 Gastro-esophageal reflux disease without esophagitis; M81.0 Age-related osteoporosis without current pathological fracture; M17.11 Unilateral primary osteoarthritis, right knee; Z66 Do not resuscitate; Z86.16 Personal history of COVID-19; Z79.01 Long term (current) use of anticoagulants; Z79.899 Other long term (current) drug therapy; Z77.22 Contact with and (suspected) exposure to environmental tobacco smoke (acute) (chronic)
CPT/HCPCS: 36415; 80053; 81001; 85025; 87086; 87181; 87637; 99283; A9270

== ENCOUNTER 2024-04-02 11:03 | Outpatient (CLI) | payer MEDICARE, SELFPAY ==
--- NOTE | ~2024-04-02 | XR_ITS ---
EXAMINATION: XR knee RT min 4V DATE: 04/02/2024 11:24 INDICATION: Right knee pain. TECHNIQUE: 4 views of right knee including standing views were obtained. COMPARISON: Right knee radiographs 11/12/2018 FINDINGS: There is lateral subluxation of patella. No fracture. There is severe osteoarthritis of pat ellofemoral compartment, moderate osteoarthritis of lateral compartment, and mild osteoarthritis of m edial compartment. There is chondrocalcinosis of the menisci. No knee joint effusion. IMPRESSION: 1. Severe right knee osteoarthritis. Reviewed, dictated and finalized at location B. K CASHIER
--- NOTE | ~2024-04-02 | CT_ITS ---
EXAMINATION: CT abdomen pelvis wo/w con DATE: 04/02/2024 12:07 INDICATION: Hematuria TECHNIQUE: Computed tomography (CT) of the abdomen and pelvis was performed without intravenous contr ast. CT of the abdomen and pelvis was then performed with a total of 130 mL Omnipaque-350 intravenous contrast using a double-bolus technique for simultaneous opacification of the renal parenchyma and r enal collecting system. Automated exposure control and iterative reconstruction technique were employ ed. The dose-length product was 1630.65 mGy-cm. COMPARISON: 10/09/2022 FINDINGS: There are a few unchanged likely benign 4 mm or smaller nodules in the bilateral lower lobes. Heart s ize is normal. Atherosclerotic coronary artery calcific location. Aortic valve and dense mitral annul ar callus location. No pericardial or pleural effusion. Liver, gallbladder, spleen, pancreas and bila teral adrenal glands are normal. 2.8 cm exophytic cyst at the upper pole of the left kidney with a fe w additional subcentimeter low-attenuation likely cyst in the left kidney which remain too small to d efinitively characterize. No urolithiasis. Bilateral extrarenal pelvises, mildly dilated on the right but without mary hydronephrosis. The bilateral renal collecting systems and ureters are opacified i n their entirety with no urothelial irregularities. There are couple latter diverticula. There is pro minent sigmoid and descending colon predominant diverticulosis without adjacent inflammatory change t o suggest diverticulitis. No bowel obstruction. The uterus is not identified and has likely been surg ically resected. No free intraperitoneal gas or fluid. No pathologically enlarged abdominal or pelvic lymphadenopathy. Mild lumbar dextrocurvature. Severe lumbar and lower thoracic spondylosis. IMPRESSION: 1. No suspicious renal lesions, urolithiasis or urothelial irregularities to explain reported hematur ia. 2. Bladder diverticula which can be seen in the setting of chronic outlet obstruction or neurogenic b ladder. 3. Cardiomegaly. Reviewed, dictated and finalized at location A. AL AND HUMAN SERVICES ASSISTANT IMPRESSION: 1. No suspicious renal lesions, urolithiasis or urothelial irregularities to ex plain reported hematuria. 2. Bladder diverticula which can be seen in the setting of chronic outlet obstr uction or neurogenic bladder. 3. Cardiomegaly.
[2024-04-02 11:38] LABS: Estimated Glomerular Filt Rate 60
== END 2024-04-02 11:04 | disposition home or self-care (01) ==
LOC: MICIMG 11:04
PROVIDERS: PCP Internal Medicine; Visit Provider Internal Medicine
DX: R31.9 Hematuria, unspecified (principal); M17.11 Unilateral primary osteoarthritis, right knee; N32.3 Diverticulum of bladder; I51.7 Cardiomegaly
CPT/HCPCS: 73564; 74178; Q9967

== ENCOUNTER 2024-04-04 10:13 | Outpatient (CLI) | payer MEDICARE, SELFPAY ==
--- NOTE | ~2024-04-04 | MR_ITS ---
EXAMINATION: MR brain/brain stem wo/w con DATE: 04/04/2024 11:06 INDICATION: Ongoing long-term anticoagulation. Left eye erythema. TECHNIQUE: Magnetic resonance imaging (MRI) of the brain and brainstem was performed without and with 14 mL Multihance intravenous contrast. Sequences included sagittal and axial T1-weighted SE, axial d iffusion-weighted FS SE, axial T2*-weighted GRE, axial T2-weighted FLAIR, and axial T2-weighted FSE. Postcontrast axial and coronal T1-weighted SE was obtained. Apparent diffusion coefficient (ADC) maps were created. COMPARISON: None. FINDINGS: There are no areas of restricted diffusion to suggest acute infarction. No intracranial hemorrhage or abnormal intracranial mass lesion. There are scattered areas of nonspecific increased T2-weighted si gnal intensity in the cerebral white matter, predominantly involving the deep and periventricular whi te matter. There are no intraparenchymal signal abnormalities seen on the other pulse sequences. The ventricles are symmetric and normal in size. There are no abnormal extra-axial fluid collections. Mateusz w voids are seen in the cerebral arteries on the T2-weighted sequences consistent with their expected patency. Changes of bilateral intraocular lens replacement. Mild mucosal thickening the bilateral et hmoid sinuses. Visualized orbits and soft tissues are unremarkable. There are no areas of abnormal en hancement on the post contrast images. IMPRESSION: 1. Normal aging brain. No acute intracranial process. Reviewed, dictated and finalized at location A. STER RECOVERY ANALYST
== END 2024-04-04 10:14 | disposition home or self-care (01) ==
LOC: MICIMG 10:14
PROVIDERS: PCP Internal Medicine
DX: Z79.01 Long term (current) use of anticoagulants (principal)
CPT/HCPCS: 70553; A9577

== ENCOUNTER 2024-05-14 17:03 | Emergency (ER) | payer MEDICARE, SELFPAY ==
--- NOTE | ~2024-05-14 | XR_ITS ---
HISTORY: right posterior hip pain; no injury COMPARISON: None TECHNIQUE: 2 views of the right hip along with an AP view of the pelvis FINDINGS: No acute fracture or dislocation is identified. Superior lateral sclerosis of the femoral acetabular joint space is present consistent with osteoarth ritis. Degenerative disease within the visualized portion of the lower lumbar spine. Mineralization is age-appropriate. IMPRESSION: Degenerative disease without acute fracture or dislocation Reviewed, dictated and finalized at location A. [facility]
--- NOTE | ~2024-05-14 | CT_ITS ---
History: Right lower back pain radiating down leg. PROCEDURE: CT lumbar spine without intravenous contrast. COMPARISON: 11/21/2022 TECHNIQUE: Multiple contiguous axial images of the lumbar spine were performed without the administration of int ravenous contrast. DLP: 509 mGy-cm FINDINGS: 16 degrees of dextroscoliotic curvature of the lumbar spine is identified. No acute compression fractures are present. Significant degenerative disease is identified at multiple levels of the lumbar spine. AT THE LEVEL OF L1/L2: A broad-based disc protrusion is identified with mass effect on both the spinal canal and bilateral n eural foramen. AT THE LEVEL OF L2/L3: A left paracentral disc protrusion is identified with significant mass effect on both the spinal sonali l and left neural foramen at this level. AT THE LEVEL OF L3/L4: A right paracentral disc protrusion is identified with trace mass effect on the spinal canal and righ t neural foramen at this level. AT THE LEVEL OF L4/L5: Grade 2 anterolisthesis of L4 onto L5 is identified (measuring 10.4 mm, increased from 8 mm in 2022). A broad-based disc protrusion is identified with significant mass effect on both the spinal canal and bilateral neural foramen. Hypertrophy of the ligamentum flavum is also noted, contributing to the degree of spinal stenosis. Impression: Multilevel degenerative disease, most prominent at the level of L4/L5, as detailed above. Reviewed, dictated and finalized at location [facility]. [facility] Impression: Multilevel degenerative disease, most prominent at the level of L4/L5, as carlos led above.
[2024-05-14 17:02] VITALS: BP 177/82; PULSE 60; RESP 16; TEMP 36.7; O2SAT 97
--- NOTE | 2024-05-14 17:27 | ED_ITS ---
HPI - Extremity Problem General Chief complaint: Extremity Problem,Nontraumatic Stated complaint: right hip pain Time Seen by Provider: 05/14/24 17:10 Source: patient Mode of arrival: EMS Limitations: no limitations History of Present Illness HPI Narrative: This is a 83 year old female that presents to the ER for right posterior hip/low back pain. No known injuries. She woke up today and went to stand up out of bed and had pain in the right buttock, unable to ambulate. The pain radiates into the leg. Reports decreased ROM due to pain. Denies numbness/weakness. Related Data Home Medications ?Medication ?Instructions ?Recorded ?Confirmed ?Last Taken ?Type mecobalamin (vitamin B12) 1,000 1,000 mcg PO DAILY 08/28/23 03/24/24 Unknown History mcg chewable tablet rivaroxaban 15 mg tablet (Xarelto) 15 mg PO QPM 02/13/24 03/24/24 Unknown History Bio B Complex [facility] 03/24/24 03/24/24 Unknown History Bio- Immunozyme [facility] 03/24/24 03/24/24 Unknown History BioMega- 1000 [facility] 03/24/24 03/24/24 Unknown History KappArest [facility] 03/24/24 03/24/24 Unknown History Reacted Magnesium [facility] 03/24/24 03/24/24 Unknown History Thiamine [facility] 03/24/24 03/24/24 Unknown History Vitamin D 5,000 units [facility] 03/24/24 03/24/24 Unknown History cranberry 500 mg capsule 500 mg PO BID 03/24/24 03/24/24 Unknown History vitamins A,C,Y-hhnx-bdjzjf 2,148 2 tablet PO BID 03/24/24 03/24/24 Unknown History mcg-113 mg-45 mg-17.4 mg tablet (PreserVision AREDS) estradiol 0.01% (0.1 mg/gram) 1 g vaginal 2XW 03/25/24 Unknown History vaginal cream Allergies Allergy/AdvReac Type Severity Reaction Status Date / Time prednisone Allergy Unknown Unknown Verified 03/24/24 14:36 clavulanic acid (From Allergy Rash Verified 03/24/24 14:36 Augmentin) Review of Systems Review of Systems: CONSTITUTIONAL: Denies fever SKIN: Denies rash MUSCULOSKELETAL: Reports back pain, joint pain, and myalgia. NEUROLOGIC: Denies numbness, or weakness. 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 Claustrophobia Alopecia Macular degeneration Foreign body in ear Vitamin D deficiency, unspecified Vitamin B deficiency Hyperlipidemia High risk medication use Lumbar spondylosis Confusion Diverticulitis Colitis Recurrent UTI (urinary tract infection) Hypothyroidism BMI 28.0-28.9,adult Interstitial cystitis (chronic) with hematuria Atrial fibrillation with rapid ventricular response Hematuria COVID-30 March 2021 Persistent cough Impacted cerumen of both ears Osteoporosis Cataract, right eye Screen for colon cancer BMI 29.0-29.9,adult UTI (urinary tract infection) Hyperlipidemia Screening for thyroid disorder Vitamin D deficiency BMI 30.0-30.9,adult Screening for breast cancer ETD (eustachian tube dysfunction) Perforation of right tympanic membrane GERD (gastroesophageal reflux disease) Otitis media Osteoarthritis of right knee Surgical History Surgical History History of bladder surgery Family History Family History Father Acute myocardial infarction Heart disease Mother Alcohol abuse Tobacco abuse Cancer Sibling Skin cancer Sibling Breast cancer Grandparent Heart disease Grandparent Heart disease Social History Social History Social History: patient is a she has two kids. Her daughter Nisa is her surrogate. She wishes to be DNR. 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 HEAD: Normocephalic, atraumatic. EYES: EOMI. CHEST: Clear to auscultation. No respiratory distress. No wheezes rales or rhonchi HEART: Regular rate and rhythm. No murmur heard. Normal peripheral pulses. EXTREMITIES: Pain with active ROM in the right hip. No edema. Normal DP pulse. Normal sensation. Strength equal in bilateral lower extremities (5/5) SKIN: Warm, dry, no rash. NEURO: No focal deficits. Alert and oriented x3. Normal gait PSYCH: Normal mood and affect Course Course Emergency Course: patient and family updated on workup and agree with plan of care. Ambulatory in the ED Consultations Consultation #1: spoke with Dr. Rosario about patient and workup. They will contact patient for a follow up appointment Date: 05/14/24 Vital Signs Vital signs: Vital Signs Temperature 98.1 F 05/14/24 17:02 Pulse Rate 60 05/14/24 17:02 Respiratory Rate 16 05/14/24 17:02 Blood Pressure 177/82 H 05/14/24 17:02 Pulse Oximetry 97 05/14/24 17:02 Oxygen Delivery Room Air 05/14/24 17:02 Temperature 98.1 F 05/14/24 17:02 Pulse Rate 62 05/14/24 21:41 Respiratory Rate 15 05/14/24 21:41 Blood Pressure 140/88 05/14/24 21:41 Pulse Oximetry 96 05/14/24 21:41 Oxygen Delivery Room Air 05/14/24 17:02 MDM - Extremity (Nontraumatic) MDM Narrative Medical decision making narrative: Patient presents the emergency department for right buttock pain with radiation in legs patient is neurovascularly intact. Denies any saddle anesthesia, bowel/bladder incontinence. CT lumbar spine shows multilevel degenerative disease most prominent at L4/L5. Right hip x-ray shows degenerative disease without acute fracture or dislocation. spoke with Dr. Rosario about patient and workup. They will contact patient for a follow up appointment. patient and family updated on workup and agree with plan of care. Ambulatory in the ED. she was given warnings to return to the ER Differential Diagnosis Differential diagnosis: Likely other (osteoarthritis, sciatica, degenerative disc disease, muscle strain) Imaging Data Radiologist's impression: ITS Impressions Lumbar Spine CT 05/14/24 17:44 Impression: Multilevel degenerative disease, most prominent at the level of L4/L5, as detailed above. Hip/Pelvis X-Ray 05/14/24 18:22 IMPRESSION: Degenerative disease without acute fracture or dislocation Critical Care Time Critical Care Time Critical Care Time: No Discharge Plan Discharge Clinical Impression: Bulging lumbar disc Patient Disposition: Home, Self-Care Condition: Improved Instructions: Sciatica (ED) Additional Instructions: Return to the ER if you experience weakness, numbness, bowel/bladder incontinence, or any other symptoms that are concerning to you Rest, use ice/heat, take anti-inflammatories (Aleve, Ibuprofen, Naproxen, etc) or Tylenol as needed for pain as well as prescribed pain medication ([place]) as needed. This medication can make you drowsy, take caution if you take this. Lidocaine patch to the area of pain as needed. Talk with your doctor if you would like to take the steroid (Methylprednisolone) as you have an allergy to another steroid that you are unsure of the reaction Follow up with neurosurgery Patient Language: Amharic Prescriptions: New hydrocodone-acetaminophen 5-325 mg tablet 1 tablet PO Q8H PRN (Reason: pain) Qty: 14 0RF methylprednisolone 4 mg tablets,dose pack See Rx Instructions .ROUTE .COMPLEX Qty: 21 0RF Rx Instructions: orally per package directions lidocaine 5 % adhesive patch,medicated 1 patch topical DAILY Qty: 15 0RF Rx Instructions: leave on most painful area for up to 12 hrs No Action mecobalamin (vitamin B12) 1,000 mcg tablet,chewable 1,000 mcg PO DAILY KappArest [facility] cranberry 500 mg capsule 500 mg PO BID Rx Instructions: administer with meals Reacted Magnesium [facility] Vitamin D 5,000 units [facility] BioMega- 1000 [facility] Thiamine [facility] Patient Comments: 50mg Bio- Immunozyme [facility] PreserVision AREDS 2,148 mcg-113 mg-45 mg-17.4mg tablet 2 tablet PO BID Rx Instructions: administer with AM and PM meals Bio B Complex [facility] Xarelto 15 mg tablet 15 mg PO QPM Rx Instructions: must administer with evening meal sotalol 80 mg Tablet 80 mg PO Q12HR Qty: 60 0RF metoprolol succinate [Toprol XL] 25 mg Tablet Extended Release 24 Hr 25 mg PO QAM Qty: 60 0RF levothyroxine 25 mcg tablet 25 mcg PO DAILY@0630 30 Days Qty: 30 5RF alprazolam [Xanax] 0.5 mg tablet 0.5 mg PO DIRECTED Qty: 2 0RF Rx Instructions: Take 1 tablet 30 minutes prior to MRI or other testing. estradiol 0.01 % (0.1 mg/gram) cream 1 g vaginal 2XW pravastatin 80 mg tablet 80 mg PO DAILY Qty: 90 1RF nitrofurantoin monohyd/m-cryst [Macrobid] 100 mg capsule 100 mg PO DAILY 10 Days Qty: 10 0RF Rx Instructions: must administer with a meal/food Follow-up/Referrals: Bj Rosario MD [Physician] - Joel Thomas MD [Primary Care Provider] -
[2024-05-14] MEDS: ACETAMINOPHEN 500 MG TABLET 1000 MG PO (17:51)
[2024-05-14] MEDS: diazePAM INJ (*CRX) 10 MG/2 ML SYRINGE 2.5 MG IM (17:51)
--- OUTSIDE RECORDS SUMMARY | 2024-05-14 17:58 | XMS_ITS | CONTINUITY OF CARE DOCUMENT ---
Author Name booker teresajhoana Address Unknown Organization [facility] Address [address] [place] [address] [address] [place] [address] Phone [phone] Care Team Providers Care Macaroni Maker Name Role Phone Ford Zarate MD Unavailable [phone] Bj Jimenez DO Unavailable [phone] RIGO GONZALEZ MD Unavailable [phone] PROBLEMS Condition Status Date Provider Notes Screening for cardiovascular condition active Holli Ward INSURANCE PROVIDERS Payer name Policy type / Coverage type [place] [employer] party [place] MED[place] PART B Medicare [id number] TREATMENT PLAN Date Name CT, Coronary Calcium Score HISTORY OF PROCEDURES Procedure Date Procedure Name Provider Procedure Notes S tatus CT- Coronary CA score Siddharth Shah MD completed
--- OUTSIDE RECORDS SUMMARY | 2024-05-14 17:58 | XMS_ITS | Referral Summary ---
Author Organization [facility] Address [address] [place] [address] Care Team Providers Care Medical Scientist Name Role Phone Angelica Frankel MD Primary Care Provider [phone] Source Comments [facility],non-owned Affiliates and Associated Physician Practices is amultiple site organization consisting of ambulatory clinics and hospital sitesin [place], [place], [place] and [place]. This disclosure is being madepursuant to the Care Everywhere program and may not contain all information available regarding this patient. Last updated 17.[facility] [place] Social History Tobacco Use Types Packs/Day Years Used Date Smoking Tobacco: Never Assessed Sex and Gender Information Value Date Recorded Sex Assigned at Not on file Gender Identity Not on file Sexual Orientation Not on file Plan of Treatment Not on file Care Teams Medical Scientist Relationship Specialty Start Date End Date Angelica Frankel MD [address] [place] [address] [address] [place] [address] PCP - General 10/10/16
--- OUTSIDE RECORDS SUMMARY | 2024-05-14 17:58 | XMS_ITS | Referral Summary ---
Author Organization [place] [id number] [employer] Address [address] [place] [address] Care Team Providers Care Lna Name Role Phone Phan Garvin MD Primary Care Provider [phone] Phan Garvin MD Unavailable [phone] Siddharth Jennings MD Unavailable [phone] Encounters Date Type Department Care Team Description 03/24/2024 Telephone [facility] Obstetrics and Gynecology [address] [place] [address] Floor [address] [place] [phone] Maria Esther Brown RN methenamine refill 03/17/2024 Telephone [facility] Obstetrics and Gynecology [address] [place] [address] 7th Floor [address] [place] [address] Debbie Lei, JOHN 03/14/2024 Telephone [facility] Obstetrics and Gynecology [address] [place] [address] Floor [address] [place] [address] Araceli Anderson, JOHN Test Results 03/14/2024 Orders Only [facility] Obstetrics and Gynecology [address] [place] [address] [address] [place] [address] Mitra Malone NP 03/13/2024 Telephone [facility] Obstetrics and Gynecology [address] [facility] Medical Office [address] [place] [address] Beth Santamaria RN 03/13/2024 11:23 AM DIE SIZER - 03/13/2024 11:59 PM DIE SIZER Hospital Encounter [facility] [address] [place] [address] Recurrent UTI; Gross hematuria Discharge Disposition: Discharge to home or self care 03/13/2024 Telephone [facility] Cardiology [address] [place] [address] Siddharth Jennings MD 03/13/2024 9:40 AM DIE SIZER Office Visit [facility] Obstetrics and Gynecology [address] [facility] 7th Floor [address] [place] [address] Mitra Malone NP Gross hematuria (Primary Dx); Recurrent UTI; Diverticulum of bladder; Incomplete bladder emptying; Vaginal atrophy from Last 3 Months Allergies Active Allergy [...] mg by mouth every morning Active vit C,D-Ke-yjyuj-anthony tein-zeaxan (PreserVision AREDS-2) 250-90-40-1 mg capsuleIndicati ons:eye [...] Additional Information Patient not taking.Reported on 03/13/2024 rivaroxaban (XARELTO) 20 mg tablet Take 1 tablet (20 mg total) by mouth daily 30 tablet 5 4 Active metoprolol XL (TOPROL-XL) 25 mg extended release tablet Take 1 tablet (25 mg total) by mouth every morning 90 tablet 3 4 Active methenamine (HIPREX) 1 gram tabletIndicatio ns:Recurrent UTI,Complicated UTI (urinary tract infection) Take 1 tablet (1,000 mg total) by mouth 2 (two) times a day with meals 180 tablet 5 06/23/19 25 Active sotaloL (BETAPACE) 80 mg tablet TAKE 1 TABLET BY MOUTH EVERY 12 HOURS 180 tablet 1 5 Active Active Problems Problem Noted Date Diagnosed [...] series with small-bowel follow-through Paroxysmal atrial fibrillation 08/15/2022 Social History Tobacco Use Types Packs/Day Years Used Date Smoking Tobacco: Never Smokeless Tobacco: Never Tobacco Cessation:Counseling Given: Not Answered Alcohol Use Standard Drinks/Week Comments Yes 0 (1 standard drink = 0.6 oz pur e alcohol) [facility] [employer] Answer Date Recorded In the past 12 months has [employer], gas, oil, or water [employer] threatened to shut off services in your [...] often do you attend chur ch or catholic services? 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 Not on file Not on file Not on file Last Filed Vital Signs Vital Sign Reading Time Taken Comments Blood Pressure 144/83 03/13/2024 9:40 AM DIE SIZER Pulse 62 11/27/2023 11:33 AM CDT Temperature 36.8 C (98.2 F) 07/23/2023 11:42 AM CDT Respiratory Rate 18 07/23/2023 11:42 AM CDT Oxygen Saturation 95% 11/27/2023 11:33 AM CDT Inhaled Oxygen Concentration - - Weight 73.9 kg (163 lb) 11/27/2023 11:33 AM CDT Height 160 cm (5' 3 ) 03/13/2024 9:40 AM DIE SIZER Body Mass Index 28.87 11/27/2023 11:33 AM CDT Plan of Treatment Not on file Procedures Procedure Name Priority Date/Time Associated Diagnosis Comments URINE CULTURE Routine 03/13/2024 1:49 PM DIE SIZER Recurrent UTI Gross hematuria URINALYSIS, MICROSCOPIC ONLY Routine 03/13/2024 11:23 AM DIE SIZER Recurrent UTI Gross hematuria URINALYSIS AND REFLEX TO MICROSCOPIC Routine 03/13/2024 11:23 AM DIE SIZER Recurrent UTI Gross hematuria POCT URINALYSIS DIPSTICK Routine 03/13/2024 10:25 AM DIE SIZER Recurrent UTI Gross hematuria from Last 3 Months Results * (ABNORMAL) Urine culture Urine, in and out catheter (03/13/2024 1:49 PM DIE SIZER) Report Final Report: 10,000 to 100,000 colonies/mL of Enterococcus faecalis 10,000 to 100,000 colonies/mL of Aerococcus urinae Isolates of Aerococcus urinae are typically susceptible to beta-lactams (including penicillin and cephalosporins), vancomycin, and tetracyclines (including doxycycline), but resistant to trimethoprim-sulf amethoxazole. (.) Organism ENTEROCOCCUS FAECALIS [facility] Organism AEROCOCCUS URINAE [facility] Urine, in and out catheter 03/13/2024 1:49 PM DIE SIZER 03/13/2024 2:13 PM DIE SIZER Narrative [facility] - 03/15/2024 3:14 PM DIE SIZER Testing performed by [facility] Microbiology Laboratory ([phone]) Organism Antibiotic Method Susceptibility Enterococcus faecalis Ampicillin (NU) INTERPRETATIO N Susceptible Enterococcus faecalis Vancomycin (NU) INTERPRETATIO N Susceptible Enterococcus faecalis Linezolid (NU) INTERPRETATIO N Susceptible Enterococcus faecalis Doxycycline (NU) INTERPRETATIO N Susceptible Enterococcus faecalis Nitrofurantoin (NU) INTERPRETAT ION Susceptible us Mitra Malone NP LAB MICROBIOLOGY - GENERAL ORD ERABLES Final Result [facility] Department [place] [address] * (ABNORMAL) Urinalysis reflex to microscopic (03/13/2024 11:23 AM DIE SIZER) Color, ur Yellow Yellow Clarity, ur Turbid(A) Clear [facility] Specific gravity, ur 1.012 1.003 - 1.030 [facility] pH, urine 7.0 [facility] Comment: Interpretive Data U rine pH is affected by diet, medications, systemic acid-base disturbances, and renal tubular function. pH may affect urinary stone formation. For example, urine pH below 6.0 may help reduce the tendency for calcium phosphate stones and pH greater than 6.0 may reduce the tendency for uric acid stone formation. Source: [facility] Current Interpretive Data was last revised on 2017 Protein, ur ql 1+(A) Negative [facility] Glucose, ur ql Negative Negative [facility] Ketones, ur Negative Negative [facility] Bilirubin, ur Negative Negative [facility] Blood, ur 3+(A) Negative [facility] Urobilinogen, ur <2.0 <2.0 mg/dL [facility] Nitrite, ur Negative Negative [facility] Leukocyte esterase, ur 3+(A) Negative [facility] UA reflex comment Reflex to microscopic UA will be performed. [facility] Urine 03/13/2024 11:2 3 AM DIE SIZER 03/13/2024 1:51 PM DIE SIZER Mitra Malone NP LAB URINE ORDERABLES Final Res ult [facility] Department [place] [address] * (ABNORMAL) Urinalysis, microscopic only (03/13/2024 11:23 AM DIE SIZER) WBC, ur >50(A) 0 - 5 /HPF RBC, ur >50(A) 0 - 2 /HPF [facility] Bacteria, ur 1+(A) [facility] Urine 03/13/2024 11:2 3 AM DIE SIZER 03/13/2024 1:51 PM DIE SIZER Mitra Malone NP LAB URINE ORDERABLES Final Res ult [facility] Department [place] [address] * (ABNORMAL) POCT urinalysis dipstick (03/13/2024 10:25 AM DIE SIZER) Specific [place], POC 1.015 1.003 - 1.030 Blood, ur, POC Large(A) Negative pH, ur, POC 7.5 5.0 - 8.0 Protein, ur, POC 30.(A) Negative Leukocytes, ur, POC Moderate(A ) Negative Lot Number [id number] Urine 03/13/2024 10:2 5 AM DIE SIZER Mitra Malone NP POINT OF CARE TEST ORDERABLES Final Result from Last 3 Months Insurance [place] [address] [place] [address] MEDICARE Member Subscriber Plan / Payer (Ef fective 2022-Present) Name:Maria A Peralta Relation to Subscriber:Self Name:Maria A Peralta Payer ID:[id number] (NAIC) Type:AETNA MEDICARE Address: [place] [phone] AETNA MEDICARE Advance Directives For more information, please contact: [phone] * LIMITED - No CPR (Latest Code Status on File) Date Activated Date Inactivated Comments 07/19/2023 10:56 PM 07/23/2023 5:51 PM Question Answer Comments Provide aggressive medical m anagement before a full cardiopulmonary arrest occurs. Use antibiotics, IV Fluids, and medical treatment unless specifically selected below: No intubation Care Teams Lna Relationship Specialty Start Date End Date Phan Garvin MD PCP - General Family Medicine 09/14/22 Phan Garvin MD Family Medicine 09/14/22 Siddharth Jennings MD [address] [address] Consulting Physician Cardiology 10/10/23
--- OUTSIDE RECORDS SUMMARY | 2024-05-14 17:58 | XMS_ITS | Clinical Summary ---
Author Organization [facility] Address [address] [place] [address] Care Team Providers Care Sizing Machine Operator Name Role Phone Angelica Frankel MD Primary Care Provider [phone] Source Comments [facility],non-owned Affiliates and Associated Physician Practices is amultiple site organization consisting of ambulatory clinics and hospital sitesin [place], [place], [place] and [place]. This disclosure is being madepursuant to the Care Everywhere program and may not contain all information available regarding this patient. Last updated 17.[facility] [employer] Social History Tobacco Use Types Packs/Day Years Used Date Smoking Tobacco: Never Assessed Sex and Gender Information Value Date Recorded Sex Assigned at Not on file Gender Identity Not on file Sexual Orientation Not on file Plan of Treatment Health Maintenance Due Date Last Done Comments BONE DENSITY TESTING 1940 DTAP/TDAP/TD VACCINES (1 - Tdap) 1957 PNEUMOCOCCAL VACCINE 50+ (1 of 1 - PCV) 1988 ZOSTER VACCINE (1 of 2) 1988 Respiratory Syncytial Virus (RSV) Vaccine Pt: or over 60 yrs (1 - 1-dose 75+ series) 2013 COVID-19 VACCINE ( - 2023-2 5 season) 2023 INFLUENZA VACCINE (#1) 2023 DEPRESSION SCREENING 03/12/2024 MEDICARE AWV CALENDAR YEAR 2024 HEPATITIS B VACCINE Aged Out No longe r eligible based on patient's age to complete this topic HIB VACCINE Aged Out No longer eligi ble based on patient's age to complete this topic HPV VACCINE Aged Out No longer eligi ble based on patient's age to complete this topic MENINGOCOCCAL (Group B) VACCINE Aged Out No longer eligible based on patient's age to complete this topic MENINGOCOCCAL VACCINE Aged Out No speedy ramos eligible based on patient's age to complete this topic Care Teams Sizing Machine Operator Relationship Specialty Start Date End Date Angelica Frankel MD [address] [place] [address] PCP - General 10/10/16
--- OUTSIDE RECORDS SUMMARY | 2024-05-14 17:58 | XMS_ITS | Clinical Summary ---
Author Organization [place] [address] [facility] Address [address] [place] [address] Care Team Providers Care Airport Sales Agent Name Role Phone Phan Garvin MD Primary Care Provider [phone] Phan Garvin MD Unavailable [phone] Siddharth Jennings MD Unavailable [phone] Allergies Active Allergy Reactions Criticality Noted Date [...] mg by mouth every morning Active vit C,Y-Yw-svcks-anthony tein-zeaxan (PreserVision AREDS-2) 250-90-40-1 mg capsuleIndicati ons:eye [...] with small-bowel follow-through Paroxysmal atrial fibrillation 08/15/2022 Encounters Date Type Department Care Team Description 03/24/2024 Telephone [facility] Obstetrics and Gynecology [address] [place] [address] Floor [address] [place] [address] Maria Esther Brown RN methenamine refill 03/17/2024 Telephone [facility] Obstetrics and Gynecology [address] [place] [address] Floor [address] [place] [phone] Debbie Lei RN 03/14/2024 Telephone [facility] Obstetrics and Gynecology [address] [place] [address] Floor [address] [place] [address] Araceli Anderson, JOHN Test Results 03/14/2024 Orders Only [facility] Obstetrics and Gynecology [address] [place] [address] Floor [address] [place] [address] Mitra Malone NP 03/13/2024 11:23 AM MERCHANDISE DELIVERER - 03/13/2024 11:59 PM MERCHANDISE DELIVERER Hospital Encounter [address] [address] Recurrent UTI; Gross hematuria Discharge Disposition: Discharge to home or self care 03/13/2024 9:40 AM MERCHANDISE DELIVERER Office Visit [facility] Obstetrics and Gynecology [address] [place] [address] Floor [address] [place] [phone] Mitra Malone NP Gross hematuria (Primary Dx); Recurrent UTI; Diverticulum of bladder; Incomplete bladder emptying; Vaginal atrophy 03/13/2024 Telephone [facility] Obstetrics and Gynecology [address] [facility] [address] [place] [address] Beth Santamaria RN 03/13/2024 Telephone [facility] Medical Group Cardiology [address] [place] [address] Siddharth Jennings MD from Last 3 Months Surgical History Surgery Date Site/Laterality Comments BLADDER SURGERY 03/12/2017 - 03/11/2018 BACK SURGERY 03/12/1993 - 03/11/1994 COLONOSCOPY multiple BLADDER FULGURATION 04/11/2023 and bx Medical History Medical History Date Comments Hypercholesteremia Osteoporosis Atrial fibrillation (HCC) 03/01/2022 Recurrent UTI Family History Medical [...] 0.6 oz pur e alcohol) [facility] Utilities Answer Date Recorded In the past 12 months has [employer] electric, gas, oil, or water [employer] threatened to shut off services in your [...] on file Legal Sex Female 7:11 PM MERCHANDISE DELIVERER Gender Identity Not on file Sexual Orientation Not on file 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 Not on file Not on file Obstetrics History Last Filed Vital Signs Vital Sign Reading Time Taken Comments Blood Pressure 144/83 03/13/2024 9:40 AM MERCHANDISE DELIVERER Pulse 62 11/27/2023 11:33 AM CDT Temperature 36.8 C (98.2 F) 07/23/2023 11:42 AM CDT Respiratory Rate 18 07/23/2023 11:42 AM CDT Oxygen Saturation 95% 11/27/2023 11:33 AM CDT Inhaled Oxygen Concentration - - Weight 73.9 kg (163 lb) 11/27/2023 11:33 AM CDT Height 160 cm (5' 3 ) 03/13/2024 9:40 AM MERCHANDISE DELIVERER Body Mass Index 28.87 11/27/2023 11:33 AM CDT Plan of Treatment Health Maintenance Due Date Last Done Comments Depression Screening 1940 Osteoporosis Screening-Bone Density Scan 1940 Hepatitis B Screening 1956 DTaP/Tdap/Td Vaccine (1 - Tdap) 01/08/2001 1 Well Visit 65+ 12/24/2003 Pneumococcal vaccine 65+ (2 of 2 - PPSV23) 08/02/2016 08/03/2015, 12/13/2014 Zoster Vaccine (2 of 2) 02/11/2019 12/17/2018 Influenza Vaccine (#1) 2023 0, 12/17/2018, 11/28/2017, Additional history exists Fall Risk Assessment 07/22/2024 07/23/2023 Procedures Procedure Name Priority Date/Time Associated Diagnosis Comments URINE CULTURE Routine 03/13/2024 1:49 PM MERCHANDISE DELIVERER Recurrent UTI Gross hematuria URINALYSIS, MICROSCOPIC ONLY Routine 03/13/2024 11:23 AM MERCHANDISE DELIVERER Recurrent UTI Gross hematuria URINALYSIS AND REFLEX TO MICROSCOPIC Routine 03/13/2024 11:23 AM MERCHANDISE DELIVERER Recurrent UTI Gross hematuria POCT URINALYSIS DIPSTICK Routine 03/13/2024 10:25 AM MERCHANDISE DELIVERER Recurrent UTI Gross hematuria from Last 3 Months Results * (ABNORMAL) Urine culture Urine, in and out catheter (03/13/2024 1:49 PM MERCHANDISE DELIVERER) Report Final Report: 10,000 to 100,000 colonies/mL of Enterococcus faecalis 10,000 to 100,000 colonies/mL of Aerococcus urinae Isolates of Aerococcus urinae are typically susceptible to beta-lactams (including penicillin and cephalosporins), vancomycin, and tetracyclines (including doxycycline), but resistant to trimethoprim-sulf amethoxazole. (.) Organism ENTEROCOCCUS FAECALIS [facility] Organism AEROCOCCUS URINAE [facility] Urine, in and out catheter 03/13/2024 1:49 PM MERCHANDISE DELIVERER 03/13/2024 2:13 PM MERCHANDISE DELIVERER Narrative [facility] - 03/15/2024 3:14 PM MERCHANDISE DELIVERER Testing performed by [facility] Microbiology Laboratory ([phone]) Organism Antibiotic Method Susceptibility Enterococcus faecalis Ampicillin (NU) INTERPRETATIO N Susceptible Enterococcus faecalis Vancomycin (NU) INTERPRETATIO N Susceptible Enterococcus faecalis Linezolid (NU) INTERPRETATIO N Susceptible Enterococcus faecalis Doxycycline (NU) INTERPRETATIO N Susceptible Enterococcus faecalis Nitrofurantoin (NU) INTERPRETAT ION Susceptible us Mitra Malone NP LAB MICROBIOLOGY - GENERAL ORD ERABLES Final Result [facility] Department [place] [address] * (ABNORMAL) Urinalysis reflex to microscopic (03/13/2024 11:23 AM MERCHANDISE DELIVERER) Color, ur Yellow Yellow Clarity, ur Turbid(A) Clear [facility] Specific gravity, ur 1.012 1.003 - 1.030 [facility] pH, urine 7.0 [facility] Comment: Interpretive Data U rine pH is affected by diet, medications, systemic acid-base disturbances, and renal tubular function. pH may affect urinary stone formation. For example, urine pH below 6.0 may help reduce the tendency for calcium phosphate stones and pH greater than 6.0 may reduce the tendency for uric acid stone formation. Source: [facility] [employer] Current Interpretive Data was last revised on 2017 Protein, ur ql 1+(A) Negative [facility] Glucose, ur ql Negative Negative [facility] Ketones, ur Negative Negative [facility] Bilirubin, ur Negative Negative [facility] Blood, ur 3+(A) Negative [facility] Urobilinogen, ur <2.0 <2.0 mg/dL [facility] Nitrite, ur Negative Negative [facility] Leukocyte esterase, ur 3+(A) Negative [facility] UA reflex comment Reflex to microscopic UA will be performed. [facility] Urine 03/13/2024 11:2 3 AM MERCHANDISE DELIVERER 03/13/2024 1:51 PM MERCHANDISE DELIVERER Mitra Malone SKATE BOARDER LAB URINE ORDERABLES Final Res ult Performing Organization Address City/[facility] Co de Phone Number [facility] Department [place] [address] * (ABNORMAL) Urinalysis, microscopic only (03/13/2024 11:23 AM MERCHANDISE DELIVERER) WBC, ur >50(A) 0 - 5 /HPF RBC, ur >50(A) 0 - 2 /HPF [facility] Bacteria, ur 1+(A) [facility] Urine 03/13/2024 11:2 3 AM MERCHANDISE DELIVERER 03/13/2024 1:51 PM MERCHANDISE DELIVERER Mitra Malone SKATE BOARDER LAB URINE ORDERABLES Final Res ult Performing Organization Address City/[facility] Co de Phone Number [facility] Department [place] [address] * (ABNORMAL) POCT urinalysis dipstick (03/13/2024 10:25 AM MERCHANDISE DELIVERER) Specific [place], POC 1.015 1.003 - 1.030 Blood, ur, POC Large(A) Negative pH, ur, POC 7.5 5.0 - 8.0 Protein, ur, POC 30.(A) Negative Leukocytes, ur, POC Moderate(A ) Negative Lot Number [id number] Urine 03/13/2024 10:2 5 AM MERCHANDISE DELIVERER Mitra Malone NP POINT OF CARE TEST ORDERABLES Final Result from Last 3 Months Insurance [facility] [place]IC[place] [address] MEDICARE T MEDICARE Advance Directives For more information, please contact: [phone] * LIMITED - No CPR (Latest Code Status on File) Date Activated Date Inactivated Comments 07/19/2023 10:56 PM 07/23/2023 5:51 PM Question Answer Comments Provide aggressive medical m anagement before a full cardiopulmonary arrest occurs. Use antibiotics, IV Fluids, and medical treatment unless specifically selected below: No intubation Care Teams Airport Sales Agent Relationship Specialty Start Date End Date Phan Garvin MD PCP - General Family Medicine 09/14/22 Phan Garvin MD Family Medicine 09/14/22 Siddharth Jennings MD [address] [address] Consulting Physician Cardiology 10/10/23
--- OUTSIDE RECORDS SUMMARY | 2024-05-14 17:58 | XMS_ITS | Patient Health Summary ---
Author Organization [facility] Address [address] [place] [address] Care Team Providers Care Acid Bleacher Name Role Phone Angelica Frankel MD Primary Care Provider [phone] Note from [facility],non-owned Affiliates and Associated Physician Practices is amultiple site organization consisting of ambulatory clinics and hospital sitesin [place], [place], [place] and [place]. This disclosure is being madepursuant to the Care Everywhere program and may not contain all information available regarding this patient. Last updated 17.[facility] [employer] Social History Tobacco Use Types Packs/Day Years [...] CLINICAL DATA: BCC. Check margins. Previous Bx: [id number]. GROSS DESCRIPTION: Received is one formalin filled container labeled with the patient's name and designated left neck. The specimen consists of an ellipse measuring [id number] and is oriented with a notch at [...] Daniela Cifuentes M.D. Electronically signed 12/07/2011 4:33:43PM [facility] Comment: Performed at: Dermatopathology Laboratory [facility] Department of Dermatology [address] [place] [address], [address] [place] [address] Phone number: [phone] Toll Free: [phone] FAX: [phone] 12/05/2011 12/06/2011 Broderick Goodson LAB - PATHOLOGY/CYTO LOGY ORDERABLES [facility] [address] [place] [address]. 5th Floor Lab [address] [phone] Care Teams Acid Bleacher Relationship Specialty Start Date End Date Angelica Frankel MD [address] [place] [address] PCP - General 10/10/16
--- OUTSIDE RECORDS SUMMARY | 2024-05-14 17:58 | XMS_ITS | Clinical Summary ---
Author Organization [facility] Address [address] [place] [address] Phone Care Team Providers Care White Washer Piler Name Role Phone Angelica Frankel MD Primary Care Provider [phone] Allergies Active Allergy Reactions Criticality Noted Date Comments Prednisone Rash 11/29/2016 Medications SIMVASTATIN ORAL Take 10 mg by mouth [...] Capsule Take 500 mg by mouth. Active OMEGA-3S/DHA/EP A/FISH OIL/D3 (VITAMIN-D + OMEGA-3 ORAL) Take by mouth daily. Active aspirin (ECOTRIN EC) 81 mg Tablet, Delayed Release (E.C.) Take 81 mg by mouth daily. Active oxyCODONE-aceta minophen (PERCOCET) 5-325 mg tablet Take 1 Tablet by mouth every 4 hours as needed for Mild pain. Max Daily Amount: 6 Tablets 43 Tablet 12/21/2016 10:25 AM CDT 12/21/2016 Active Active Problems No known active problems Immunizations Immunization Administration Dates Next Due Influenza Seasonal Unspecified Formulation IM Family History Medical History Relation Name Comments Colon Cancer Mother Relation Name Status Comments Mother Social History Tobacco Use Types Packs/Day Years Used Date Smoking Tobacco: Never Smokeless Tobacco: Never Alcohol Use Standard Drinks/Week Comments Yes 0 (1 standard drink = 0.6 oz pur e alcohol) rarely Comments No Sex and Gender Information Value Date Recorded Sex Assigned at Not on file 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 Gender Identity Not on file Sexual Orientation Not on file Occupation Industry Job Start Date Job End Date Not on file Not on file Not on file Not on file Last Filed Vital Signs Vital Sign Reading Time Taken Comments Blood Pressure 124/51 12/21/2016 7:35 AM CDT Pulse 55 12/21/2016 7:35 AM CDT Temperature 36.9 C (98.5 F) 12/21/2016 7:35 AM CDT Respiratory Rate 18 12/21/2016 7:35 AM CDT [...] Comments DTAP/TDAP/TD VACCINES (1 - Tdap) 1957 PNEUMOCOCCAL VACCINE 50+ YEA RS (1 of 1 - PCV) 1988 ZOSTER VACCINE (1 of 2) 1988 OSTEOPOROSIS SCREENING 12/24/2003 RSV VACCINE (60+ or ) (1 - 1-dose 75+ series) 2013 COLORECTAL SCREENING 10/08/2016 10/09/2011, 10/09/19 12 INFLUENZA VACCINE (#1) 2023 11/15/2016 Medical Devices Implanted Type Area Customer Engagement Analyst Device Identifier Shelf Expiration Date Model / Serial / Lot Sling Desara System Suleman-Ds01 - [id number] Implanted:Qty: 1 on 12/20/2016 by Gaby Ceballos MD at [facility] Sling N/A: Vagina [employer] 08/16/2021 SULEMAN-DS01 / / [id number] Description:PO#[id number] [facility] [id number] Codingpeople O OPEN ACCESS Advance Directives For more information, please contact: [phone] * Full Code (Latest Code Status on File) Date Activated Date Inactivated Comments 12/20/2016 7:23 AM 12/20/2016 12:56 PM * Full Code Date Activated Date Inactivated Comments 10/09/2011 11:21 AM 10/09/2011 3:18 PM Care Teams White Washer Piler Relationship Specialty Start Date End Date Angelica Frankel MD [address] [place] [address] [address] [address] PCP - General Internal Medicine 08/11/11
[2024-05-14] MEDS: oxyCODONE HCL (*CRX) 5 MG TAB IR PO (18:51)
[2024-05-14] MEDS: IBUPROFEN 600 MG TABLET PO (19:25)
[2024-05-14] MEDS: LIDOCAINE 5% PATCH 1 PATCH TRANSDERM (21:17)
[2024-05-14] MEDS: dexAMETHasone SOD PHOS INJ 10 MG/ML 1 ML VIAL IV PUSH (21:29)
[2024-05-14 21:41] VITALS: BP 140/88; PULSE 62; RESP 15; O2SAT 96
== END 2024-05-14 21:43 | disposition home or self-care (01) ==
PROVIDERS: Emergency Provider Physician Assistant; PCP Internal Medicine
DX: M51.369 Other intervertebral disc degeneration, lumbar region without mention of lumbar back pain or lower extremity pain (principal); I48.91 Unspecified atrial fibrillation; E03.9 Hypothyroidism, unspecified; E55.9 Vitamin D deficiency, unspecified; E53.9 Vitamin B deficiency, unspecified; E78.5 Hyperlipidemia, unspecified; N30.11 Interstitial cystitis (chronic) with hematuria; H35.30 Unspecified macular degeneration; M81.0 Age-related osteoporosis without current pathological fracture; M17.11 Unilateral primary osteoarthritis, right knee; Z66 Do not resuscitate; Z86.16 Personal history of COVID-19; Z87.440 Personal history of urinary (tract) infections; Z77.22 Contact with and (suspected) exposure to environmental tobacco smoke (acute) (chronic); M47.816 Spondylosis without myelopathy or radiculopathy, lumbar region
CPT/HCPCS: 72131; 73502; 96372; 96374; 99284; A9270; J1100; J3360

== ENCOUNTER 2024-07-23 10:20 | Emergency (ER) | payer MEDICARE, SELFPAY ==
--- NOTE | ~2024-07-23 | CT_ITS ---
EXAMINATION: CT abdomen pelvis w con DATE: 07/23/2024 12:18 INDICATION: Abdominal pain TECHNIQUE: Computed tomography (CT) of the abdomen and pelvis was performed with 100 mL Omnipaque-350 intravenous contrast. Automated exposure control and iterative reconstruction technique were employe d. The dose-length product was 652.43 mGy-cm. COMPARISON: 04/02/2024 FINDINGS: Lung bases are clear. Heart size is normal. Atherosclerotic coronary artery catheter station and dens e mitral annular calcific lesion. No pericardial or pleural effusion. Liver, gallbladder, pancreas an d bilateral adrenal glands are normal. Again seen are several hyperenhancing lesions in the spleen wh ich can be seen dating back to CT dated 07/17/2014 consistent with benign etiology such as hemangiomas or sequela of old granulomatous disease. Left renal cysts the largest exophytic cyst measuring 3.0 cm . There is urothelial enhancement at the bilateral ureters and renal pelvises sees which could be see n in the setting of ascending urinary tract infection. There is urothelial enhancement and mild wall thickening of the bladder with some stranding in the surrounding fat suspicious for cystitis. There a re couple bladder diverticula. The uterus is not identified and has likely been surgically resected. There is prominent colonic diverticulosis with descending and sigmoid colon predominance but without adjacent inflammatory change to suggest diverticulitis. Small bowel and appendix are normal. Small fa t-containing left inguinal hernia. No free intraperitoneal gas or fluid. No pathologically enlarged a bdominal or pelvic lymphadenopathy. Severe lumbar and lower thoracic spondylosis. Moderate and right and mild left hip osteoarthritis. IMPRESSION: 1. Likely cystitis and bilateral ascending urinary tract infections but without evident pyelonephriti s. 2. Diverticulosis.. Reviewed, dictated and finalized at location A. IMPRESSION: 1. Likely cystitis and bilateral ascending urinary tract infections but without evident pyelonephritis. 2. Diverticulosis..
[2024-07-23 10:23] VITALS: BP 163/77; PULSE 65; RESP 20; TEMP 36.7; O2SAT 96
--- OUTSIDE RECORDS SUMMARY | 2024-07-23 10:40 | XMS_ITS | CONTINUITY OF CARE DOCUMENT ---
Author Name booker teresajhoana Address Unknown Organization [facility] Address [address] [place] [address] [address] [place] [address] Phone [phone] Care Team Providers Care Igniter Capper Name Role Phone Ford Zarate MD Unavailable Bj Jimenez DO Unavailable [phone] RIGO GONZALEZ MD Unavailable [phone] PROBLEMS Condition Status Date Provider Notes Screening for cardiovascular condition active Holli Ward INSURANCE PROVIDERS Payer name Policy type / Coverage type Adrian red constitution party [place] MED[place] PART B Medicare [id number] TREATMENT PLAN Date Name CT, Coronary Calcium Score HISTORY OF PROCEDURES Procedure Date Procedure Name Provider Procedure Notes S tatus CT- Coronary CA score Siddharth Shah MD completed
--- OUTSIDE RECORDS SUMMARY | 2024-07-23 10:40 | XMS_ITS | Clinical Summary ---
Author Organization [facility] [place] [address] [facility] Address [address] [place] [address] Care Team Providers Care Pipe Organ Builder Name Role Phone Phan Garvin MD Unavailable [phone] Siddharth Jennings MD Unavailable [phone] Joel Thomas MD Primary Care Provider [phone] Allergies Active Allergy Reactions Criticality Noted Date Comments Prednisone Rash Medium 11/29/2016 Medications levothyroxine (SYNTHROID) 25 mcg tabletIndicati ons:hypothyroi dism Take 1 tablet (25 mcg total) by mouth every morning 03/03/20 22 Active cholecalcifero l (VITAMIN D-3) 2000 unit capsuleIndicat ions:Vitamin D Deficiency Take 1 capsule (2,000 Units total) by mouth every morning Active ascorbic acid (VITAMIN C) 500 mg tablet,chewabl eIndications:s upplement Take 1 tablet/chew tab (500 mg total) by mouth every morning Active zinc 50 mg tabletIndicati ons:supplement Take 50 mg by mouth every morning Active cranberry 400 mg capsuleIndicat ions:urinary health Take 800 mg by mouth every morning Active vit C,T-Vp-kkzlr-l utein-zeaxan (PreserVision AREDS-2) 250-90-40-1 mg capsuleIndicat ions:eye vitamin Take 1 capsule by mouth 2 (two) times a day Active estradioL (ESTRACE) 0.01 % (0.1 mg/gram) vaginal creamIndicatio ns:Postmenopau jeffrey Urethral Atrophy Insert 2 g into the vagina 2 (two) times a week Mon and Fri 11/21/19 23 Active Vowst capsule 05/29/19 24 Active phenazopyridin e (PYRIDIUM) 100 mg tabletIndicati ons:Bladder pain Take 1 tablet (100 mg total) by mouth 3 (three) times a day as needed for urinary pain 90 tablet 1 07/26/19 24 Active Additional Information Patient not taking.Reported on 05/26/2024 pravastatin (PRAVACHOL) 80 mg tablet Take 1 tablet (80 mg total) by mouth daily 03/31/19 25 Active sotaloL (BETAPACE) 120 mg tablet Take 1 tablet (120 mg total) by mouth every 12 (twelve) hours 180 tablet 2 05/28/19 25 Active methenamine (HIPREX) 1 gram tabletIndicati ons:Recurrent UTI,Complicate d UTI (urinary tract infection) TAKE 1 TABLET(1000 MG) BY MOUTH TWICE DAILY WITH MEALS 180 tablet 3 06/11/19 25 Active Xarelto 20 mg tablet TAKE 1 TABLET BY MOUTH EVERY DAY 30 tablet 5 07/04/19 25 Active Xarelto 20 mg tablet TAKE 1 TABLET BY MOUTH EVERY DAY 30 tablet 5 06/03/19 25 025 Discontinued Active Problems Problem Noted Date Diagnosed Date [...] Encounters Date Type Department Care Team Description 05/26/2024 10:15 AM CDT Office Visit [facility] Cardiology [address] [place] [id number] Siddharth Jennings MD Paroxysmal atrial fibrillation (HCC) (Primary Dx) from Last 3 Months Surgical History Surgery [...] drink = 0.6 oz pur e alcohol) [facility] Utilities Answer Date Recorded In the past 12 months has [employer], gas, oil, or water [employer] threatened to shut off services in your [...] any clubs o r organizations such as yazidism groups, unions, fraternal or athletic groups, or [...] on file 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 Gender Identity Not on file Sexual Orientation Not on file 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 Not on file Not on file Not on file Obstetrics History Last Filed Vital Signs Vital Sign Reading Time Taken Comments Blood Pressure 132/66 05/26/2024 10:04 AM CDT Pulse 66 05/26/2024 10:04 AM CDT Temperature 36.8 C (98.2 F) 07/23/2023 11:42 AM CDT Respiratory Rate 18 07/23/2023 11:42 AM CDT Oxygen Saturation 98% 05/26/2024 10:04 AM CDT Inhaled Oxygen Concentration - - Weight 76.4 kg (168 lb 6.4 oz) 05/26/2024 10:04 AM CDT Height 160 cm (5' 3 ) 05/26/2024 10:04 AM CDT Body Mass Index 29.83 05/26/2024 10:04 AM CDT Plan of Treatment Health Maintenance Due Date Last Done Comments Depression Screening 1940 Osteoporosis Screening-Bone Density Scan 1940 Hepatitis B Screening 1956 DTaP/Tdap/Td Vaccine (1 - Tdap) 01/08/2001 1 Well Visit 65+ 12/24/2003 Pneumococcal vaccine 65+ (2 of 2 - PPSV23) 08/02/2016 08/03/2015, 12/13/2014 Zoster Vaccine (2 of 2) 02/11/2019 12/17/2018 Fall Risk Assessment 07/22/2024 07/23/2023 Influenza Vaccine (Season Ended) 2024 12/12/2019, 12/17/2018, 11/28/2017, Additional history exists Insurance AETNA MEDICARE AETNA MEDICARE AETNA MEDICARE Advance Directives For more information, please contact: [phone] * LIMITED - No CPR (Latest Code Status on File) Date Activated Date Inactivated Comments 07/19/2023 10:56 PM 07/23/2023 5:51 PM Question Answer Comments Provide aggressive medical m anagement before a full cardiopulmonary arrest occurs. Use antibiotics, IV Fluids, and medical treatment unless specifically selected below: No intubation Care Teams Pipe Organ Builder Relationship Specialty Start Date End Date Joel Thomas MD [address] [employer] [place], [place] [id number] PCP - General Internal Medicine 05/26/24 Phan Garvin MD Family Medicine 09/14/22 Siddharth Jennings MD [address] [place] [address] Consulting Physician Cardiology 10/10/23
--- OUTSIDE RECORDS SUMMARY | 2024-07-23 10:40 | XMS_ITS | Referral Summary ---
Author Organization [facility] [address] [facility] Address [address] [place] [address] Care Team Providers Care Sales And Leasing Consultant Name Role Phone Phan Garvin MD Unavailable [phone] Siddharth Jennings MD Unavailable [phone] Joel Thomas MD Primary Care Provider [phone] Encounters Date Type Department Care Team Description 05/26/2024 10:15 AM CDT Office Visit [facility] Cardiology [address] [place] [address] Siddharth Jennings MD Paroxysmal atrial fibrillation (HCC) (Primary Dx) from Last 3 Months Allergies Active Allergy [...] mg by mouth every morning Active vit C,I-Ip-kgers-l utein-zeaxan (PreserVision AREDS-2) 250-90-40-1 mg capsuleIndicat ions:eye vitamin Take 1 capsule by mouth 2 (two) times a day Active estradioL (ESTRACE) 0.01 % (0.1 mg/gram) vaginal creamIndicatio ns:Postmenopau jeffrey Urethral Atrophy Insert 2 g into the vagina 2 (two) times a week Mon and Sun11/21/19 23 Active Vowst capsule 05/29/19 24 Active [...] Recorded In the past 12 months has [employer], gas, oil, or water [employer] threatened to shut off services in your [...] file 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 Use antibiotics, IV Fluids, and medical treatment unless specifically selected below: No intubation Care Teams Sales And Leasing Consultant Relationship Specialty Start Date End Date Joel Thomas MD [address] [facility] [address] [place] [address] PCP - General Internal Medicine 05/26/24 Phan Garvin MD Family Medicine 09/14/22 Siddharth Jennings MD [address] [place] [address] Consulting Physician Cardiology 10/10/23
--- OUTSIDE RECORDS SUMMARY | 2024-07-23 10:40 | XMS_ITS | Clinical Summary ---
Author Organization [facility] Address [address] [place] [address] Care Team Providers Care Lift Truck Operator Name Role Phone Angelica Frankel MD Primary Care Provider [phone] Source Comments [facility],non-owned Affiliates and Associated Physician Practices is amultiple site organization consisting of ambulatory clinics and hospital sitesin [place], [place], [place] and [place]. This disclosure is being madepursuant to the Care Everywhere program and may not contain all information available regarding this patient. 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 Gender Identity Not on file Sexual Orientation [...] VACCINE ( - 2023-2 5 season) 2023 DEPRESSION SCREENING 03/12/2024 INFLUENZA VACCINE (Season Ended) 2024 HEPATITIS B VACCINE Aged Out No longe r eligible based on patient's age to complete this topic HIB VACCINE Aged Out No longer eligi ble based on patient's age to complete this topic HPV VACCINE Aged Out No longer eligi ble based on patient's age to complete this topic MENINGOCOCCAL (Group B) VACC INE SHARED DECISION-MAKING Aged Out No longer eligibl e based on patient's age to complete this topic MENINGOCOCCAL GROUPS A/C/Y/W VACCINE Aged Out No longer eligible b ased on patient's age to complete this topic Insurance * Guarantor: MARIA A JEAN Account Type Relation to Patient Date of Phone Billing Address Personal/Family [address] [id number] AETNA MEDICARE ADV SELF PAY NO INSURANCE Member Subscriber Plan / Payer (Ef fective for All Dates) Name:Maria A Jean Member ID:Not on file Relation to Subscriber:Not on file Name:MARIA A JEAN Subscriber ID:Not on file Address: [address] [place], [place] [address] Payer ID:Not on file Group ID:Not on file Type:Self Pay Address: [place], [place] * Guarantor: MARIA A JEAN Account Type Relation to Patient Date of Phone Billing Address Personal/Family [address] [id number] AETNA MEDICARE ADV SELF PAY NO INSURANCE Member Subscriber Plan / Payer (Ef fective for All Dates) Name:Maria A Jean Member ID:Not on file Relation to Subscriber:Not on file Name:MARIA A JEAN Subscriber ID:Not on file Address: [address] [place] [address] Payer ID:Not on file Group ID:Not on file Type:Self Pay Address: [place], [place] * Guarantor: MARIA A JEAN Account Type Relation to Patient Date of Phone Billing Address Personal/Family [address] [place] [address] AETNA MEDICARE ADV SELF PAY NO INSURANCE Member Subscriber Plan / Payer (Ef fective for All Dates) Name:Tulio Jeanith Member ID:Not on file Relation to Subscriber:Not on file Name:GABTULIO CHANITH Subscriber ID:Not on file Address: [address] [place] [address] Payer ID:Not on file Group ID:Not on file Type:Self Pay Address: [place], [place] Care Teams Lift Truck Operator Relationship Specialty Start Date End Date Angelica Frankel MD [address] [place] [address] [address] [place] [address] PCP - General 10/10/16
--- OUTSIDE RECORDS SUMMARY | 2024-07-23 10:40 | XMS_ITS | Clinical Summary ---
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 Gender Identity Not on file Sexual Orientation [...] 2023 11/15/2016 Medical Devices Implanted Type Area Primer Waterproofing Machine Adjuster Device Identifier Shelf Expiration Date Model / Serial / Lot Sling Desara System [employer]-Ds01 - [id number] Implanted:Qty: 1 on 12/20/2016 by Gaby Ceballos MD at [facility] Sling N/A: Vagina [employer] 08/16/2021 SULEMAN-DS01 / / [id number] Description:PO#[id number] [facility] [id number] [place] [employer] O OPEN ACCESS Advance Directives For more information, please contact: [phone] * Full Code (Latest Code Status on File) Date Activated Date Inactivated Comments 12/20/2016 7:23 AM 12/20/2016 12:56 PM * Full Code Date Activated Date Inactivated Comments 10/09/2011 11:21 AM 10/09/2011 3:18 PM Care Teams 3D Technologist Relationship Specialty Start Date End Date Angelica Frankel MD [address] [place] [address] [address] [address] PCP - General Internal Medicine 08/11/11
--- OUTSIDE RECORDS SUMMARY | 2024-07-23 10:40 | XMS_ITS | Clinical Summary ---
Author Organization [facility] Address [address] [place] [address] Care Team Providers Care Director Customer Name Role Phone Joel Thomas MD Primary Care Provider [phone] Encounters Date Type Department Care Team Description 06/04/2024 1:22 PM CDT - 06/04/2024 11:59 PM CDT Hospital Encounter [facility] [address] [place] [address] Araceli Sanchez NP Discharge Disposition: Home or Self Care (Routine Discharge) 06/04/2024 Travel from Last 3 Months Social History Tobacco Use Types Packs/Day Years Used Date Smoking Tobacco: Never Assessed Sex and Gender Information Value Date Recorded Sex Assigned at Male 06/04/2024 1:15 PM CDT Legal Sex Female 11:07 AM CDT Gender Identity Not on file Sexual Orientation Not on file Plan of Treatment Health Maintenance Due Date Last Done Comments DTaP, Tdap and Td Vaccines ( 1 - Tdap) 01/08/2001 01/07/2001 Annual Medicare Wellness Visit 12/24/2003 RSV Immunization or 60+ Years (1 - 1-dose 75+ series) 2013 Pneumococcal Vaccine: 50+ Years (2 of 2 - PPSV23) 08/02/2016 08/03/2015, 12/13/2014 Zoster Vaccines (3 of 3) 02/11/2019 019, 12/10/2009 COVID-19 Vaccine ( - 2023-2 5 season) 2023 Meningococcal B Vaccine Aged Out No l onger eligible based on patient's age to complete this topic Meningococcal Vaccine Aged Out No speedy ramos eligible based on patient's age to complete this topic RSV Immunizations Under 20 Months Aged Out No longer eligible b ased on patient's age to complete this topic Procedures Procedure Name Priority Date/Time Associated Diagnosis Comments MRI LUMB SPINE WO CON STAT 06/04/2024 2:36 PM CDT Spondylolysis, lumbar region from Last 3 Months Results * MRI LUMB SPINE WO CON (06/04/2024 2:36 PM CDT) Anatomical Region Laterality Modality Spine Magnetic Resonan ce 06/04/2024 2:41 PM CDT Impressions 06/04/2024 2:45 PM CDT IMPRESSION: 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 Ordered By: ARACELI SANCHEZ Interpreted By: Broderick Cassidy MD, 06/04/2024 2:41 PM Narrative 06/04/2024 2:45 PM CDT [address] [address] EXAMINATION: MRI lumbar spine without contrast EXAM DATE/TIME: 06/04/2024 2:12 PM REASON FOR EXAM: Right leg pain COMPARISON: None available TECHNIQUE: Mutiplanar, multisequence MRI of the lumbar spine was obtained without the use of an IV contrast agent. FINDINGS: There are 5 nonrib-bearing lumbar-type vertebral bodies. There is 0.9 cm of anterolisthesis of L4 on L5. The lumbar vertebral bodies and facets are otherwise well aligned. The lumbar vertebral body heights are preserved. There is intervertebral disc height loss at L1-2, L2-3, L4-5 and L5-S1 with endplate degenerative changes at these levels. Ankylosis of the L5-S1 level. The conus medullaris terminates at L2, normal. There is a normal distribution of the cauda equina within the thecal sac. There is a 2.8 cm medial margin exophytic left renal cyst. T10-11: Disc bulge impressing the ventral thecal sac. Mild spinal canal stenosis. Moderate to marked facet hypertrophy. Moderate bilateral neural foraminal stenosis. T11-12: No significant spinal canal or neural foraminal stenosis. T12-L1: Central disc protrusion impressing the ventral thecal sac. Mild spinal canal stenosis. Moderate facet hypertrophy. No significant neural foraminal stenosis. L1-2: Disc bulge impressing the ventral thecal sac. Mild to moderate spinal canal stenosis. Moderate to marked facet hypertrophy. Moderate to severe left neural foraminal stenosis. Mild to moderate right neural foraminal stenosis. L2-3: Disc bulge impressing the ventral thecal sac. Moderate spinal canal stenosis. Moderate to marked facet hypertrophy. Mild to moderate right neural foraminal stenosis. Moderate left neural foraminal stenosis. L3-4: Disc bulge impressing the ventral thecal sac. Moderate spinal canal stenosis. Moderate facet hypertrophy. Moderate bilateral neural foraminal stenosis. L4-5: Disc bulge impressing the ventral thecal sac. Moderate to severe spinal canal stenosis. Marked facet hypertrophy. Moderate to severe left neural foraminal stenosis. Severe right neural foraminal stenosis. L5-S1: No significant spinal canal stenosis. Moderate facet hypertrophy. Mild bilateral neural foraminal stenosis, right greater than left. Procedure Note Broderick Cassidy MD - 06/04/[address] [address] EXAMINATION: MRI lumbar spine without contrast EXAM DATE/TIME: 06/04/2024 2:12 PM REASON FOR EXAM: Right leg pain COMPARISON: None available TECHNIQUE: Mutiplanar, multisequence MRI of the lumbar spine was obtainedwithout the use of an IV contrast agent. FINDINGS: There are 5 nonrib-bearing lumbar-type vertebral bodies. Thereis 0.9 cm of anterolisthesis of L4 on L5. The lumbar vertebral bodies andfacets are otherwise well aligned. The lumbar vertebral body heights arepreserved. There is intervertebral disc height loss at L1-2, L2-3, L4-5and L5-S1 with endplate degenerative changes at these levels. Ankylosis ofthe L5-S1 level. The conus medullaris terminates at L2, normal. There is anormal distribution of the cauda equina within the thecal sac. There is a2.8 cm medial margin exophytic left renal cyst. T10-11: Disc bulge impressing the ventral thecal sac. Mild spinal canalstenosis. Moderate to marked facet hypertrophy. Moderate bilateral neuralforaminal stenosis. T11-12: No significant spinal canal or neural foraminal stenosis. T12-L1: Central disc protrusion impressing the ventral thecal sac. Mildspinal canal stenosis. Moderate facet hypertrophy. No significant neuralforaminal stenosis. L1-2: Disc bulge impressing the ventral thecal sac. Mild to moderatespinal canal stenosis. Moderate to marked facet hypertrophy. Moderate tosevere left neural foraminal stenosis. Mild to moderate right neuralforaminal stenosis. L2-3: Disc bulge impressing the ventral thecal sac. Moderate spinal canalstenosis. Moderate to marked facet hypertrophy. Mild to moderate rightneural foraminal stenosis. Moderate left neural foraminal stenosis. L3-4: Disc bulge impressing the ventral thecal sac. Moderate spinal canalstenosis. Moderate facet hypertrophy. Moderate bilateral neural foraminalstenosis. L4-5: Disc bulge impressing the ventral thecal sac. Moderate to severespinal canal stenosis. Marked facet hypertrophy. Moderate to severe leftneural foraminal stenosis. Severe right neural foraminal stenosis. L5-S1: No significant spinal canal stenosis. Moderate facet hypertrophy.Mild bilateral neural foraminal stenosis, right greater than left. IMPRESSION: Moderate multilevel lumbar spondylosis greatest at L4-5, as describedabove. Ordered By: ARACELI SANCHEZ Interpreted By: Broderick Cassidy MD, 06/04/2024 2:41 PM Araceli Sanchez FUEL PILOT ENGINEER MRI Final Result from Last 3 Months Insurance [employer] Care Teams Director Customer Relationship Specialty Start Date End Date Joel Thomas MD [address] - [facility] [address] [place] [address] PCP - General INTERNAL MEDICINE 06/04/24
--- OUTSIDE RECORDS SUMMARY | 2024-07-23 11:13 | XMS_ITS | Clinical Summary ---
Author Organization [facility] Address [address] [place] [address] Phone Care Team Providers Care Sales Service Coordinator Name Role Phone Angelica Frankel MD Primary Care Provider [phone] Allergies Active Allergy Reactions Criticality Noted Date [...] on file Legal Sex Female 3:00 AM RESOURCE AGENT Gender Identity Not on file Sexual [...] 2023 11/15/2016 Medical Devices Implanted Type Area Cocktail Waitress Device Identifier Shelf Expiration Date Model / Serial / Lot Sling Desara System Suleman-Ds01 - [id number] Implanted:Qty: 1 on 12/20/2016 by Gaby Ceballos MD at [facility] Sling N/A: Vagina [employer] 08/16/2021 SULEMAN-DS01 / / [id number] Description:PO#[id number] Insurance [facility] [id number] [employer] O OPEN ACCESS Advance Directives For more information, please contact: [phone] * Full Code (Latest Code Status on File) Date Activated Date Inactivated Comments 12/20/2016 7:23 AM 12/20/2016 12:56 PM * Full Code Date Activated Date Inactivated Comments 10/09/2011 11:21 AM 10/09/2011 3:18 PM Care Teams Sales Service Coordinator Relationship Specialty Start Date End Date Angelica Frankel MD [address] [place] [address] [address] [address] PCP - General Internal Medicine 08/11/11
--- OUTSIDE RECORDS SUMMARY | 2024-07-23 11:13 | XMS_ITS | Clinical Summary ---
Author Organization [place] [address] [facility] Address [address] [place] [address] Care Team Providers Care Seeing Eye Dog Trainer Name Role Phone Phan Garvin MD Unavailable Siddharth Jennings MD Unavailable [phone] Joel Thomas MD Primary Care Provider [phone] Allergies Active Allergy Reactions Criticality Noted Date [...] mg by mouth every morning Active vit C,C-Yo-iotfi-l utein-zeaxan (PreserVision AREDS-2) 250-90-40-1 mg capsuleIndicat ions:eye [...] Description 05/26/2024 10:15 AM CDT Office Visit [facility] Cardiology [address] [place] [id number] Siddharth Jennings MD Paroxysmal atrial fibrillation (HCC) [...] = 0.6 oz pur e alcohol) [facility] Utilities Answer Date Recorded In the past 12 months has [employer] gas, oil, or water [employer] threatened to shut off services in your [...] often do you attend chur ch or roman catholic services? 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 Use antibiotics, IV Fluids, and medical treatment unless specifically selected below: No intubation Care Teams Seeing Eye Dog Trainer Relationship Specialty Start Date End Date Joel Thomas MD [address] [facility] [address] MED[address]INE [place], [place] [id number] PCP - General Internal Medicine 05/26/24 Phan Garvin MD Family Medicine 09/14/22 Siddharth Jennings MD [address] [facility] [address] [place] [address] Consulting Physician Cardiology 10/10/23
--- OUTSIDE RECORDS SUMMARY | 2024-07-23 11:13 | XMS_ITS | Clinical Summary ---
Author Organization [facility] Address [address] [facility] [place] [address] Care Team Providers Care Nightclub Manager Name Role Phone Angelica Frankel MD Primary Care Provider [phone] Source Comments [facility],non-owned Affiliates and Associated Physician Practices is amultiple site organization consisting of ambulatory clinics and hospital sitesin [place], [place], [place] and [place]. This disclosure is being madepursuant to the Care Everywhere program and may not contain all information available regarding this patient. Last updated 17.[facility] Datappraise Social History Tobacco Use Types Packs/Day Years Used Date Smoking Tobacco: Never Assessed Comments Unknown Sex and Gender Information Value Date Recorded Sex Assigned at Not on file Legal Sex Female 5:30 PM RECEPTION SPECIALIST Gender Identity Not on file Sexual [...] of Phone Billing Address Personal/Family [address] [id number] [employer] MEDICARE ADV SELF PAY NO INSURANCE Member Subscriber Plan / Payer (Ef fective for All Dates) Name:Maria A Jean Member ID:Not on file Relation to Subscriber:Not on file Name:MARIA A JEAN Subscriber ID:Not on file Address: [address] [place], [place] [id number] Payer ID:Not on file Group ID:Not on file Type:Self Pay Address: [place], [place] * Guarantor: MARIA A JEAN Account Type Relation to Patient Date of Phone Billing Address Personal/Family [address] [id number] [employer] MEDICARE ADV SELF PAY NO INSURANCE Member Subscriber Plan / Payer (Ef fective for All Dates) Name:Maria A Jean Member ID:Not on file Relation to Subscriber:Not on file Name:MARIA A JEAN Subscriber ID:Not on file Address: [address] [place] [address] Payer ID:Not on file Group ID:Not on file Type:Self Pay Address: [place], [place] * Guarantor: MARIA A JEAN Account Type Relation to Patient Date of Phone Billing Address Personal/Family [address] [place] [address] [employer] MEDICARE ADV SELF PAY NO INSURANCE Member Subscriber Plan / Payer (Ef fective for All Dates) Name:Tulio Jeanith Member ID:Not on file Relation to Subscriber:Not on file Name:GABTULIO CHANITH Subscriber ID:Not on file Address: [address] [place] [address] Payer ID:Not on file Group ID:Not on file Type:Self Pay Address: [place], [place] Care Teams Nightclub Manager Relationship Specialty Start Date End Date Angelica Frankel MD [address] [place] [address] [address] [place] [address] PCP - General 10/10/16
--- OUTSIDE RECORDS SUMMARY | 2024-07-23 11:13 | XMS_ITS | Clinical Summary ---
Author Organization [facility] Address [address] [place] [address] Care Team Providers Care Industrial Education Instructor Name Role Phone Joel Thomas MD Primary Care Provider [phone] Encounters Date Type Department Care Team Description 06/04/2024 1:22 PM CDT - 06/04/2024 11:59 PM CDT Hospital Encounter [facility] [address] [place] [address] Araceli Sanchez NP Discharge Disposition: Home or [...] at L4-5, as described above. Ordered By: ARCAELI SANCHEZ Interpreted By: Broderick Cassidy MD, 06/04/2024 2:41 PM Narrative 06/04/2024 2:45 PM CDT [address] [address] EXAMINATION: MRI lumbar spine without contrast EXAM [...] Procedure Note Broderick Cassidy MD - 06/04/[address] [address] EXAMINATION: MRI lumbar spine without contrast EXAM [...] Cassidy MD, 06/04/2024 2:41 PM Araceli Sanchez METAL TUBE CUTTER MRI Final Result from Last 3 Months Insurance [employer] Care Teams Industrial Education Instructor Relationship Specialty Start Date End Date Joel Thomas MD [address] - [facility] [address] [place] [address] PCP - General INTERNAL MEDICINE 06/04/24
--- OUTSIDE RECORDS SUMMARY | 2024-07-23 11:13 | XMS_ITS | Referral Summary ---
Author Organization [facility] [address] [facility] Address [address] [place] [address] Care Team Providers Care Medical Laboratory Technicians Name Role Phone Phan Garvin MD Unavailable [phone] Siddharth Jennings MD Unavailable [phone] Joel Thomas MD Primary Care Provider [phone] Encounters Date Type Department Care Team Description 05/26/2024 10:15 AM CDT Office Visit [facility] Cardiology [address] [place] [address] Siddharth Jennings MD Paroxysmal atrial [...] mg by mouth every morning Active vit C,J-Hn-tkkzw-l utein-zeaxan (PreserVision AREDS-2) 250-90-40-1 mg capsuleIndicat ions:eye [...] 0.6 oz pur e alcohol) [facility] Utilities Answer Date Recorded In the past 12 months has [facility], gas, oil, or water [employer] threatened to shut off services in your [...] any clubs o r organizations such as protestant groups, unions, fraternal or athletic groups, or [...] file 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 Use antibiotics, IV Fluids, and medical treatment unless specifically selected below: No intubation Care Teams Medical Laboratory Technicians Relationship Specialty Start Date End Date Joel Thomas MD [address] [facility] [address] [place] [address] PCP - General Internal Medicine 05/26/24 Phan Garvin MD Family Medicine 09/14/22 Siddharth Jennings MD [address] [place] [address] [place] [address] Consulting Physician Cardiology 10/10/23
--- OUTSIDE RECORDS SUMMARY | 2024-07-23 11:13 | XMS_ITS | CONTINUITY OF CARE DOCUMENT ---
Author Name booker teresajhoana Address Unknown Organization [facility] Address [address] [place] [address] [address] [place] [address] Phone [phone] Care Team Providers Care Spray Drier Name Role Phone Ford Zarate MD Unavailable Bj Jimenez DO Unavailable [phone] RIGO GONZALEZ MD Unavailable PROBLEMS Condition Status Date Provider Notes Screening for cardiovascular condition active Holli Ward INSURANCE PROVIDERS Payer name Policy type / Coverage type [place] red libertarian [place] MED[place] PART B Medicare [id number] TREATMENT PLAN Date Name CT, Coronary Calcium Score HISTORY OF PROCEDURES Procedure Date Procedure Name Provider Procedure Notes S tatus CT- Coronary CA score Siddharth Shah MD completed
[2024-07-23 11:45] LABS: Basophils Percent Auto 0.3 % (0.2-1.2); Eosinophils Absolute Auto 0.1 K/mm3 (0-0.3); Eosinophils Percent Auto 1.6 % (0-4.4); Hematocrit 39.3 % (37.0-47.0); Hemoglobin 12.2 g/dL (12.0-15.0); Immature Granulocyte Absolute 0.01 K/mm3 (0.00-0.031); Immature Granulocyte Percent A 0.1 % (0-0.5); Lymphocytes Percent Auto 26.9 % (18.3-44.2); Mean Corpuscular Hemoglobin 29.9 pg (26-34); Mean Corpuscular Volume 96.3 fl (80-100); Mean Platelet Volume 11.5 fl (7.4-10.4); Monocytes Absolute Auto 0.7 K/mm3 (0.1-0.6); Monocytes Percent Auto 10.2 % (2.6-8.5); Neutrophils Absolute Auto 4.1 K/mm3 (1.3-6.7); Neutrophils Percent Auto 60.9 % (45.5-73.1); Platelet Count Result 175 k/mm3 (150-375); Red Blood Count 4.08 M/mm3 (4.2-5.4); Red Cell Distribution Width 13.8 % (11.5-14.5); White Blood Count 6.7 K/mm3 (4.5-10.0)
[2024-07-23 11:59] LABS: Add Urine Microscopic? YES; Appearance Urine Turbid (Clear); Bacteria Urine 1+ /hpf; Bilirubin Urine Negative (Negative); Blood Urine 2+ (Negative); Color Urine Yellow (Yellow); Glucose Urine UA Negative (Negative); Ketones Urine Negative (Negative); Leukocyte Esterase Ur 3+ LEU/UL (Negative); Need Manual Microscopic Reviewed; Nitrate Urine Negative (Negative); Protein Urine 1+ mg/dL (Negative); Specific Grav Ur 1.008 (1.001-1.035); Squamous Epithelial Cell Urine Occasional /hpf (Few); Urobilinogen Urine 0.2 mg/dL (<2.0); WBC Urine >100 /hpf (0-3)
[2024-07-23 12:01] LABS: Lactic Acid Reflex 0.7 mmol/L (0.7-2.0)
[2024-07-23 12:03] LABS: Alanine Aminotransferase 19 U/L (6-35); Albumin Level 3.9 g/dL (3.5-5.1); Alkaline Phosphatase 84 U/L (38-126); Anion Gap 7 mmol/L (4-12); Aspartate Amino Transferase 35 U/L (14-36); Bilirubin,Total 0.7 mg/dL (0.2-1.3); Blood Urea Nitrogen 31 mg/dL (7-17); Calcium 8.8 mg/dL (8.4-10.2); Carbon Dioxide 26 mmol/L (22-30); Chloride 107 mmol/L (98-107); Estimated CRCL calculation 46 ml/min; Estimated Glomerular Filt Rate > 60; Glucose 94 mg/dL (65-110); Lipase 204 U/L (23-300); Potassium 4.4 mmol/L (3.4-5.0); Sodium 140 mmol/L (137-145)
--- NOTE | 2024-07-23 13:25 | ED.GENADULT ---
HPI - General Adult General Chief complaint: Urogenital-Female Stated complaint: UTI Time Seen by Provider: 07/23/24 10:51 History of Present Illness HPI narrative: Patient 83-year-old female presents emergency department chief complaint of urinary tract infection. The patient reports she has seen her primary care provider via phone and was started on Keflex the patient reports she continues to have discomfort with urination and reports that she has had suprapubic tenderness. The patient reports no nausea no vomiting reports that she has seen multiple urologist and reports that she has had no fevers Related Data Home Medications Medication Instructions Recorded Confirmed Last Taken Type mecobalamin (vitamin B12) 1,000 1,000 mcg PO DAILY 08/28/23 05/27/24 Unknown History mcg chewable tablet rivaroxaban 15 mg tablet (Xarelto) 15 mg PO QPM 02/13/24 05/27/24 Unknown History Bio B [facility] 03/24/24 05/27/24 Unknown History Bio- Immunozyme [facility] 03/24/24 05/27/24 Unknown History BioMega- 1000 [facility] 03/24/24 05/27/24 Unknown History Reacted Magnesium [facility] 03/24/24 05/27/24 Unknown History Thiamine [facility] 03/24/24 05/27/24 Unknown History Vitamin D 5,000 units [facility] 03/24/24 05/27/24 Unknown History cranberry 500 mg capsule 500 mg PO BID 03/24/24 05/27/24 Unknown History vitamins A,C,A-hkle-xevfgt 2,148 2 tablet PO BID 03/24/24 05/27/24 Unknown History mcg-113 mg-45 mg-17.4 mg tablet (PreserVision AREDS) estradiol 0.01% (0.1 mg/gram) 1 g vaginal 2XW 03/25/24 05/27/24 Unknown History vaginal cream METHENAMINE HIPPUTATE [facility] 05/27/24 05/27/24 Unknown History Allergies Allergy/AdvReac Type Severity Reaction Status Date / Time prednisone Allergy Unknown Unknown Verified 06/05/24 09:00 clavulanic acid (From Allergy Rash Verified 06/05/24 09:00 Augmentin) Review of Systems Review of Systems: A 10 system review of systems was completed on the patient and is negative except for what is stated in the HPI. Nursing and ancillary documentation was reviewed. [facility] Past Medical History Medical History Pain of right great toe Diverticula, bladder Posterior vitreous detachment Fall Encounter to establish care BMI 33.0-33.9,adult On nursing home drug therapy Claustrophobia Alopecia Macular degeneration Foreign body in ear Vitamin D deficiency, unspecified Vitamin B deficiency Hyperlipidemia High risk medication use Lumbar spondylosis Confusion Diverticulitis Colitis Recurrent UTI (urinary tract infection) Hypothyroidism BMI 28.0-28.9,adult Interstitial cystitis (chronic) with hematuria Atrial fibrillation with rapid ventricular response Hematuria COVID-30 March 2021 Persistent cough Impacted cerumen of both ears Osteoporosis Cataract, right eye Screen for colon cancer BMI 29.0-29.9,adult UTI (urinary tract infection) Hyperlipidemia Screening for thyroid disorder Vitamin D deficiency BMI 30.0-30.9,adult Screening for breast cancer ETD (eustachian tube dysfunction) Perforation of right tympanic membrane GERD (gastroesophageal reflux disease) Otitis media Osteoarthritis of right knee Surgical History Surgical History History of bladder surgery Family History Family History Father Acute myocardial infarction Heart disease Mother Alcohol abuse Tobacco abuse Cancer Sibling Skin cancer Sibling Breast cancer Grandparent Heart disease Grandparent Heart disease Social History Social History Social History: patient is a she has two kids. Her daughter Nisa is her surrogate. She wishes to be DNR. 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 HEAD: Normocephalic, atraumatic. EYES: PERRLA and EOMI. ENT: Nares clear, no rhinorrhea or epistaxis. Mucous membranes moist. NECK: Supple. CHEST: Clear to auscultation. No respiratory distress. HEART: Regular rate and rhythm. No murmur heard. Normal peripheral pulses. ABDOMEN: Soft, nontender, nondistended, normal active bowel sounds. EXTREMITIES: Normal range of motion. No edema. SKIN: Warm, dry, no rash. NEURO: No focal deficits. Alert and oriented x3. PSYCH: Normal mood and affect. Course Vital Signs Vital signs: Vital Signs Temperature 36.7 C 07/23/24 10:23 Pulse Rate 65 07/23/24 10:23 Respiratory Rate 20 07/23/24 10:23 Blood Pressure 163/77 H 07/23/24 10:23 Pulse Oximetry 96 07/23/24 10:23 Oxygen Delivery Room Air 07/23/24 10:23 Temperature 36.7 C 07/23/24 10:23 Pulse Rate 65 07/23/24 10:23 Respiratory Rate 20 07/23/24 10:23 Blood Pressure 163/77 H 07/23/24 10:23 Pulse Oximetry 96 07/23/24 10:23 Oxygen Delivery Room Air 07/23/24 10:23 Medical Decision Making MDM Narrative Medical decision making narrative: Differential diagnosis includes pyelonephritis, UTI, ureterolithiasis, diverticulitis, colitis Laboratory studies were obtained on the patient showed a white count of 6.7 electrolytes are within normal limits urinalysis showed greater than 100 white blood cells. Urine culture was sent CT scan of the abdomen pelvis showed no acute abnormality Patient was given a dose Rocephin in the emergency department on be discharged home on cefdinir in place of the Keflex Vital Signs Vital Signs: Vital Signs Temperature 36.7 C 07/23/24 10:23 Pulse Rate 65 07/23/24 10:23 Respiratory Rate 20 07/23/24 10:23 Blood Pressure 163/77 H 07/23/24 10:23 Pulse Oximetry 96 07/23/24 10:23 Oxygen Delivery Room Air 07/23/24 10:23 Temperature 36.7 C 07/23/24 10:23 Pulse Rate 65 07/23/24 10:23 Respiratory Rate 20 07/23/24 10:23 Blood Pressure 163/77 H 07/23/24 10:23 Pulse Oximetry 96 07/23/24 10:23 Oxygen Delivery Room Air 07/23/24 10:23 Lab Data 07/23/24 11:32 07/23/24 11:32 Labs: Lab Results 07/23/24 Range/Units 11:32 WBC 6.7 (4.5-10.0) K/mm3 RBC 4.08 L (4.2-5.4) M/mm3 Hgb 12.2 (12.0-15.0) g/dL Hct 39.3 (37.0-47.0) % MCV 96.3 (80-100) fl MCH 29.9 (26-34) pg MCHC 31.0 L (32-36) g/dl RDW 13.8 (11.5-14.5) % Plt Count 175 (150-375) k/mm3 MPV 11.5 H (7.4-10.4) fl Immature Gran % (Auto) 0.1 (0-0.5) % Neut % (Auto) 60.9 (45.5-73.1) % Lymph % (Auto) 26.9 (18.3-44.2) % [place] % (Auto) 10.2 H (2.6-8.5) % Eos % (Auto) 1.6 (0-4.4) % Baso % (Auto) 0.3 (0.2-1.2) % Lymph # (Auto) 1.80 (0.9-3.2) K/mm3 [place] # (Auto) 0.7 H (0.1-0.6) K/mm3 Eos # (Auto) 0.1 (0-0.3) K/mm3 Baso # (Auto) 0.0 (0.0-0.1) K/mm3 Abs Immat Gran (auto) 0.01 (0.00-0.031) K/mm3 Absolute Neuts (auto) 4.1 (1.3-6.7) K/mm3 Absolute Nucleated RBC 0.000 (0.0-0.012) K/mm3 Nucleated RBC % 0.0 (0.0-0.2) % Sodium 140 (137-145) mmol/L Potassium 4.4 (3.4-5.0) mmol/L Chloride 107 (98-107) mmol/L Carbon Dioxide 26 (22-30) mmol/L Anion Gap 7 (4-12) mmol/L BUN 31 H (7-17) mg/dL Creatinine 0.74 (0.7-1.0) mg/dL Estim Creat Clear Calc 46 ml/min Estimated GFR > 60 (59 - ) Glucose 94 (65-110) mg/dL Lactic Acid 0.7 (0.7-2.0) mmol/L Calcium 8.8 (8.4-10.2) mg/dL Total Bilirubin 0.7 (0.2-1.3) mg/dL AST 35 (14-36) U/L ALT 19 (6-35) U/L Alkaline Phosphatase 84 (38-126) U/L Total Protein 7.0 (6.3-8.2) g/dL Albumin 3.9 (3.5-5.1) g/dL Lipase 204 (23-300) U/L Urine Color Yellow (Yellow) Urine Appearance Turbid H (Clear) Urine pH 7.0 (5.0-9.0) Ur Specific [place] 1.008 (1.001-1.035) Urine Protein 1+ H (Negative) mg/dL Urine Glucose (UA) Negative (Negative) mg/dL Urine Ketones Negative (Negative) mg/dL Ur Blood (Man) 2+ H (Negative) Urine Nitrate Negative (Negative) Urine Bilirubin Negative (Negative) Urine Urobilinogen 0.2 (<2.0) mg/dL Add Ur Microanalysis Reviewed Leukocyte Esterase Rfl 3+ H (Negative) CLARA/UL Urine RBC 11-20 H (0-2) /hpf Urine WBC >100 H (0-3) /hpf Ur Squamous Epith Cells Occasional (Few) /hpf Urine Bacteria 1+ H /hpf Urine Casts 6-10 Discharge Plan Discharge Clinical Impression: Recurrent UTI Patient Disposition: Home Condition: Stable Instructions: Antibiotic Form, Urinary Tract Infection in Older Adults (ED) Additional Instructions: Please follow-up with your primary care provider and your urologist. A urine culture was sent today. Please discontinue taking cephalexin and start the cefdinir. Your given a dose of Rocephin in the emergency department today. Patient Language: Indonesian Prescriptions: New cefdinir 300 mg capsule 300 mg PO Q12H 10 Days Qty: 20 0RF No Action mecobalamin (vitamin B12) 1,000 mcg tablet,chewable 1,000 mcg PO DAILY cranberry 500 mg capsule 500 mg PO BID Rx Instructions: administer with meals Reacted Magnesium [facility] Vitamin D 5,000 units [facility] BioMega- 1000 [facility] Thiamine [facility] Patient Comments: 50mg Bio- Immunozyme [facility] PreserVision AREDS 2,148 mcg-113 mg-45 mg-17.4mg tablet 2 tablet PO BID Rx Instructions: administer with AM and PM meals Bio B Complex [facility] METHENAMINE HIPPUTATE [facility] sotalol 80 mg tablet 120 mg PO Q12HR Qty: 85 0RF Xarelto 15 mg tablet 15 mg PO QPM Rx Instructions: must administer with evening meal lidocaine 5 % adhesive patch,medicated 1 patch topical DAILY Qty: 15 0RF Rx Instructions: leave on most painful area for up to 12 hrs estradiol 0.01 % (0.1 mg/gram) cream 1 g vaginal 2XW pravastatin 80 mg tablet 80 mg PO DAILY Qty: 90 1RF levothyroxine 25 mcg tablet 25 mcg PO DAILY@0630 30 Days Qty: 30 5RF cephalexin 250 mg capsule 250 mg PO TID 10 Days Qty: 30 0RF Follow-up/Referrals: Joel Thomas MD [Primary Care Provider] - Time of Disposition: 13:30
== END 2024-07-23 14:09 | disposition home or self-care (01) ==
PROVIDERS: Emergency Provider Emergency Medicine; PCP Internal Medicine
DX: N39.0 Urinary tract infection, site not specified (principal); E55.9 Vitamin D deficiency, unspecified; E53.9 Vitamin B deficiency, unspecified; E78.5 Hyperlipidemia, unspecified; E03.9 Hypothyroidism, unspecified; I48.91 Unspecified atrial fibrillation; K21.9 Gastro-esophageal reflux disease without esophagitis; M81.0 Age-related osteoporosis without current pathological fracture; M17.11 Unilateral primary osteoarthritis, right knee; H35.30 Unspecified macular degeneration; Z66 Do not resuscitate; Z86.16 Personal history of COVID-19; Z79.01 Long term (current) use of anticoagulants; Z77.22 Contact with and (suspected) exposure to environmental tobacco smoke (acute) (chronic)
CPT/HCPCS: 36415; 74177; 80053; 81001; 83605; 83690; 85025; 87086; 96365; 99284; J0696; Q9967

== ENCOUNTER 2024-09-01 08:19 | Outpatient (CLI) | payer MEDICARE, SELFPAY ==
[2024-09-01 09:54] LABS: Add Urine Microscopic? YES; Appearance Urine Turbid (Clear); Bacteria Urine 4+ /hpf; Bilirubin Urine Negative (Negative); Blood Urine 3+ (Negative); Color Urine Dark Yellow (Yellow); Glucose Urine UA Negative (Negative); Ketones Urine Negative (Negative); Leukocyte Esterase Ur 3+ LEU/UL (Negative); Need Manual Microscopic Reviewed; Nitrate Urine Positive (Negative); Protein Urine 3+ mg/dL (Negative); RBC Urine >100 /hpf (0-2); Specific Grav Ur 1.016 (1.001-1.035); Squamous Epithelial Cell Urine Occasional /hpf (Few); WBC Urine >100 /hpf (0-3)
== END 2024-09-01 08:20 | disposition home or self-care (01) ==
LOC: ANHLAB 08:20
PROVIDERS: PCP Internal Medicine; Visit Provider Internal Medicine
DX: R19.7 Diarrhea, unspecified (principal); R10.9 Unspecified abdominal pain; N39.0 Urinary tract infection, site not specified; R55 Syncope and collapse; Z79.899 Other long term (current) drug therapy
CPT/HCPCS: 36415; 81001; 82705; 84260; 86316; 87077; 87086; 87186; 87493; 89055

== ENCOUNTER 2024-09-09 13:30 | Outpatient (RCR) | payer MEDICARE, SELFPAY ==
--- NOTE | 2024-06-25 10:27 | OPREHPOC ---
Outpatient Therapy Plan of Care This is a Multidisciplinary Plan of Care that may contain components documented by all disciplines (PT, OT, and ST.) PT Problem 1 PT Problem #1 Knowledge Deficit PT Goal 1 Goal / Goal Update 1. Patient will perform independent HEP Target Visit 2 PT Problem 2 PT Problem #2 Impaired Strength PT Goal 1 Goal / Goal Update 1. Improve pelvic floor strength to 4/5 to reduce UTIs and incontinence 2. Improve pelvic floor endurance to 10 seconds to reduce UTI's and incontinence Target Visit 4 PT Problem 3 PT Problem #3 Impaired Functional ADLs PT Goal 1 Goal / Goal Update 1. Patient will report no symptoms of UTI for at least 2 weeks 2. Patient will report urinary incontinence no more than 1 time per week Target Visit 4
--- NOTE | 2024-06-25 10:27 | PTOPEVAL1 ---
Assessment and note entered by Samia Marshall DPT Evaluation Information Assessment Status Evaluation ICD-10 Condition Codes (PT) Weakness R53.1,Stress incontinence N39.3 Subjective Information Pt has a history of chronic UTI's and states she has had a constant one since . Has virtually been on antibiotics since then. Also has a history of c diff. Reports she is not having pain with urinating. Recently has been voiding 3 times overnight, about 10 times a day. Can hold urge maybe 5 minutes. Incontinence most days of the week, small volume but patient typically uses pads. BM daily without issue. Does not remember pelvic pain with last exam. Urology office has tried to teach patient to self cath but patient was unable. Patient goal: eliminate or minimize UTIs Unsure if she has a follow up appointment with urology. Reported Pain Level Pain Score 0: Self Report Assessment PT Clinical Summary The patient is presenting to skilled therapy with a history of chronic UTI's as well as urinary incontinence most days of the week. She has previously been seen at this clinic for pelvic floor therapy 3 other times. She presents with decreased pelvic floor strength and endurance and reports increased urinary frequency/urgency. She will benefit from skilled therapy to address her impairments in order to reduce UTI symptoms and incontinence and to improve function. Plan of Care Interventions Manual Therapy,Neuro Re-education,Patient/ Caregiver Education,Therapeutic Activities, Therapeutic Exercise PT Services Indicated Yes Treatment Frequency and 1 time a week for 4 weeks Duration These treatments will address the objective and functional deficits as defined above. The patient will be advanced safely and appropriately in order for the patient to progress towards his/her prior level of function. Additional exercises will be introduced and as well as a comprehensive home exercise program upon discharge, if needed, ?to ensure carryover of functional gains achieved in the clinic. This treatment plan has been reviewed and agreement upon by the patient.
--- NOTE | 2024-08-01 10:24 | OPREHPOC ---
Outpatient Therapy Plan of Care This is a Multidisciplinary Plan of Care that may contain components documented by all disciplines (PT, OT, and ST.) PT Problem 1 PT Problem #1 Knowledge Deficit PT Goal 1 Goal / Goal Update 1. Patient will perform independent HEP Target Visit 2 Progress Met PT Problem 2 PT Problem #2 Impaired Strength PT Goal 1 Goal / Goal Update 1. Improve pelvic floor strength to 4/5 to reduce UTIs and incontinence 2. Improve pelvic floor endurance to 10 seconds to reduce UTI's and incontinence update 08/01/24 1. no change 2. improved to 4 Target Visit 4 Progress Partially Met PT Problem 3 PT Problem #3 Impaired Functional ADLs PT Goal 1 Goal / Goal Update 1. Patient will report no symptoms of UTI for at least 2 weeks 2. Patient will report urinary incontinence no more than 1 time per week update 08/01/24 1. met 2. not assessed Target Visit 4 Progress Partially Met
--- NOTE | 2024-08-01 10:24 | PTOPPROG ---
Assessment and note entered by Samia Marshall DPT Evaluation Information Assessment Status Progress ICD-10 Condition Codes (PT) Weakness R53.1,Stress incontinence N39.3 Subjective Information Pt reports she has been feeling pretty normal recently. Just followed up with her urologist and states they told her she had less urine retention. No recent pain with urination and feels that it has been normal. Will be going once a week for the next 4 weeks to urology for a catheter antibiotic and then may have more spread out visits. Assessment PT Clinical Summary The patient reports some progress in therapy and has had no recent pain with urination. She demonstrates improved pelvic floor endurance. Due to her progress and upcoming urology plan, will see patient in 4 weeks and consider discharge at that time. Plan of Care Interventions Manual Therapy,Neuro Re-education,Patient/ Caregiver Education,Therapeutic Activities, Therapeutic Exercise PT Services Indicated Yes Treatment Frequency and 1 visit in 4 weeks Duration These treatments will address the objective and functional deficits as defined above. The patient will be advanced safely and appropriately in order for the patient to progress towards his/her prior level of function. Additional exercises will be introduced and as well as a comprehensive home exercise program upon discharge, if needed, ?to ensure carryover of functional gains achieved in the clinic. This treatment plan has been reviewed and agreement upon by the patient.
--- NOTE | 2024-09-09 14:11 | PTOPDC ---
Assessment and note entered by Samia Marshall DPT Evaluation Information Assessment Status Discharge ICD-10 Condition Codes (PT) Weakness R53.1,Stress incontinence N39.3 Subjective Information Pt reports she had the 4 week catheter antibiotic procedure done and 4 days after finishing she got another UTI. Reports frustration that she feels she has no answers. Reported Pain Level Pain Score 0: Self Report Assessment PT Clinical Summary The patient has been seen in therapy for 5 visits this episode of care (previously seen in this office 3 other episodes of care) and reports minimal progress. She recently had another UTI after 4 weeks of catheter antibiotics. Throughout her multiple episodes of care in this office the patient has been educated in stretching and downtraining techniques and well as strengthening exercises. At this time plan to refer patient to another pelvic floor physical therapist for another opinion. Her case will be discharged this date. Plan of Care PT Services Indicated No
== END 2024-09-09 15:10 | disposition home or self-care (01) ==
LOC: ANHPT 13:30
PROVIDERS: PCP Internal Medicine; Visit Provider Physician Assistant Medical
DX: R33.9 Retention of urine, unspecified (principal); N30.20 Other chronic cystitis without hematuria; N32.81 Overactive bladder; R35.0 Frequency of micturition
CPT/HCPCS: 97110; 97112; 97162; 97530

== ENCOUNTER 2024-10-09 08:42 | Outpatient (CLI) | payer MEDICARE, SELFPAY ==
--- NOTE | ~2024-10-09 | XR_ITS ---
Right Knee Technique: AP, lateral, and sunrise views were obtained. Clinical History: Pain Findings: No fracture or dislocation is seen. Osseous alignment is anatomic. There is advanced degene rative change of the patellofemoral compartment. There is moderate degenerative change of the medial and lateral compartments. There is chondrocalcinosis of the menisci. No joint effusion is seen. Impression: Tricompartmental degenerative change, as above. Chondrocalcinosis of the menisci. Reviewed, dictated and finalized at location M. Impression: Tricompartmental degenerative change, as above. Chondrocalcinosis of the menisci.
--- OUTSIDE RECORDS SUMMARY | 2024-10-09 08:48 | XMS_ITS | Clinical Summary ---
Author Organization [facility] Address [facility] [place] [address] Care Team Providers Care Cementer Helper Name Role Phone Joel Thomas MD Primary Care Provider [phone] Social History Tobacco Use Types Packs/Day Years [...] patient's age to complete this topic Insurance [employer]ET[employer] Care Teams Cementer Helper Relationship Specialty Start Date End Date Joel Thomas MD [address] [place] [address] PCP - General INTERNAL MEDICINE 06/04/24
--- OUTSIDE RECORDS SUMMARY | 2024-10-09 08:48 | XMS_ITS | Referral Summary ---
Author Organization [facility] [address] [facility] Address [address] [place] [address] Care Team Providers Care Art Installer Name Role Phone Phan Garvin MD Unavailable [phone] Siddharth Jennings MD Unavailable [phone] Joel Thomas MD Primary Care Provider [phone] Encounters Date Type Department Care Team Description 08/07/[address] [facility] Cardiology [address] [place] [address] Siddharth Jennings MD from Last [...] mg by mouth every morning Active vit C,Q-Ab-bistg-l utein-zeaxan (PreserVision AREDS-2) 250-90-40-1 mg capsuleIndicat ions:eye [...] BY MOUTH EVERY DAY 30 tablet 5 10/07/19 25 Active Xarelto 20 mg tablet TAKE 1 TABLET BY MOUTH EVERY DAY 30 tablet 5 07/04/19 25 025 Discontinued Active Problems Problem Noted [...] = 0.6 oz pur e alcohol) [facility] Utilities Answer Date Recorded In the past 12 months has [employer], gas, oil, or water [employer] threatened to shut off services in your [...] often do you attend chur ch or buddhism services? Never 07/20/2023 Do you [...] place to sleep or slept in a intermediate (including now)? No 07/20/2023 Personal Safety Answer Date Recorded Have you ever been in or are you currently in a harmful physical or emotional relationship or is someone making you feel afraid or unsafe? 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 Use antibiotics, IV Fluids, and medical treatment unless specifically selected below: No intubation Care Teams Art Installer Relationship Specialty Start Date End Date Joel Thomas MD [address] [facility] [address] [place] [address] PCP - General Internal Medicine 05/26/24 Phan Garvin MD Family Medicine 09/14/22 Siddharth Jennings MD [address] [facility] [address] [place] [address] Consulting Physician Cardiology 10/10/23
--- OUTSIDE RECORDS SUMMARY | 2024-10-09 08:48 | XMS_ITS | Clinical Summary ---
Author Organization [facility] Address [address] [place] [address] Care Team Providers Care Flame Cutting Machine Operator Helper Name Role Phone Angelica Frankel MD Primary Care Provider [phone] Source Comments [facility],non-owned Affiliates and Associated Physician Practices is amultiple site organization consisting of ambulatory clinics and hospital sitesin [place], [place], [place] and [place]. This disclosure is being madepursuant to the Care Everywhere program and may not contain all information available regarding this patient. Last updated 17.[facility] [employer] Social History Tobacco Use Types Packs/Day Years Used Date Smoking Tobacco: Never Assessed Comments Unknown Sex and Gender Information Value Date Recorded Sex Assigned at Not on file Legal Sex Female 5:30 PM INTERNIST MEDICAL DOCTOR MD Gender Identity Not on file Sexual Orientation [...] 2023-2 5 season) 2023 DEPRESSION SCREENING 03/12/2024 MEDICARE AWV CALENDAR YEAR 2024 INFLUENZA VACCINE (#1) 2024 HEPATITIS B VACCINE Aged Out No [...] Date of Phone Billing Address Personal/Family [address] [id number] AETNA MEDICARE ADV SELF PAY NO INSURANCE Member Subscriber Plan / Payer (Ef fective for All Dates) Name:Maria A Jean Member ID:Not on file Relation to Subscriber:Not on file Name:MARIA A JEAN Subscriber ID:Not on file Address: [address] [id number] Payer ID:Not on file Group ID:Not on file Type:Self Pay Address: [place], [place] * Guarantor: MARIA A JEAN Account Type Relation to Patient Date of Phone Billing Address Personal/Family [address] [id number] AETNA MEDICARE ADV SELF PAY NO INSURANCE Member Subscriber Plan / Payer (Ef fective for All Dates) Name:Maria A Jean Member ID:Not on file Relation to Subscriber:Not on file Name:MARIA A JEAN Subscriber ID:Not on file Address: [address] [place] [address] Payer ID:Not on file Group ID:Not on file Type:Self Pay Address: [place], [place] * Guarantor: MARIA A JEAN Account Type Relation to Patient Date of Phone Billing Address Personal/Family [address] [place] [address] AETNA MEDICARE ADV SELF PAY NO INSURANCE Member Subscriber Plan / Payer (Ef fective for All Dates) Name:Maria A Jean Member ID:Not on file Relation to Subscriber:Not on file Name:MARIA A JEAN Subscriber ID:Not on file Address: [address] [place] [address] Payer ID:Not on file Group ID:Not on file Type:Self Pay Address: [place], [place] Care Teams Flame Cutting Machine Operator Helper Relationship Specialty Start Date End Date Angelica Frankel MD [address] [place] [address] PCP - General 10/10/16
--- OUTSIDE RECORDS SUMMARY | 2024-10-09 08:48 | XMS_ITS | Clinical Summary ---
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 [id number] [employer] O OPEN ACCESS Advance Directives For more information, please contact: [phone] * Full Code (Latest Code Status on File) Date Activated Date Inactivated Comments 12/20/2016 7:23 AM 12/20/2016 12:56 PM * Full Code Date Activated Date Inactivated Comments 10/09/2011 11:21 AM 10/09/2011 3:18 PM Care Teams Imaging Aide Relationship Specialty Start Date End Date Angelica Frankel MD [address] [place] [address] [address] [address] PCP - General Internal Medicine 08/11/11
--- OUTSIDE RECORDS SUMMARY | 2024-10-09 08:48 | XMS_ITS | Clinical Summary ---
Author Organization [place] [address] [employer] Address [address] [place] [address] Care Team Providers Care Assistant Research Scientist Name Role Phone Phan Garvin MD Unavailable [phone] Siddharth Jennings MD Unavailable [phone] Joel hTomas MD Primary Care Provider [phone] Allergies Active Allergy Reactions Criticality Noted Date [...] mg by mouth every morning Active vit C,N-Cu-xvwrc-l utein-zeaxan (PreserVision AREDS-2) 250-90-40-1 mg capsuleIndicat ions:eye [...] Type Department Care Team Description 08/07/2024 Telephone [facility] Medical Group Cardiology [address] [place] [address] Siddharth Jennings MD from Last 3 Months [...] oz pur e alcohol) [facility] Utilities Answer Date Recorded In the past 12 months has [employer], gas, oil, or water [employer] threatened to shut off services in your [...] week 07/20/2023 How often do you attend [facility] or faith services? 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 Use antibiotics, IV Fluids, and medical treatment unless specifically selected below: No intubation Care Teams Assistant Research Scientist Relationship Specialty Start Date End Date Joel Thomas MD [address] [facility] [address] [place] [address] PCP - General Internal Medicine 05/26/24 Phan Garvin MD Family Medicine 09/14/22 Siddharth Jennings MD [address] [facility] [address] [place] [address] Consulting Physician Cardiology 10/10/23
--- OUTSIDE RECORDS SUMMARY | 2024-10-09 08:48 | XMS_ITS | Encounter Summary ---
Author Organization [facility] Healthcare Address [address] [place] [address] Care Team Providers Care Deck Mate Name Role Phone Phan Garvin MD Primary Care Provider [phone] Phan Garvin MD Unavailable [phone] Siddharth Jennings MD Unavailable [phone] Joel Thomas MD Primary Care Provider [phone] Encounter Details Date Type Department Care Team (Late st Contact Info) Description 10/06/2023 Orders Only [facility] Health Information Management [address] [place] [address] Scanning, Provider Social History Tobacco Use Types Packs/Day Years Used Date Smoking Tobacco: Never Smokeless Tobacco: Never Alcohol Use Standard Drinks/Week Comments Yes 0 (1 standard drink = 0.6 oz pur e alcohol) [facility] Utilities Answer Date Recorded In the past 12 months has [employer], gas, oil, or water [employer] threatened to shut off services in your [...] you attend [facility] or zoroastrianism services? 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 file Not on file Not on file documented as of this encounter Plan of Treatment Not on file documented as of this encounter Procedures Procedure Name Priority Date/Time Associated Diagnosis Comments SCAN - LABS 10/06/2023 documented in this encounter Results * SCAN - LABS (10/06/2023) us Provider Scanning Final Result documented in this encounter Visit Diagnoses Not on filedocumented in this encounter Care Teams Deck Mate Relationship Specialty Start Date End Date Phan Garvin MD PCP - General Family Medicine 09/14/22 05/25/24 Joel Thomas MD [address] [facility] [address] [place] [address] PCP - General Internal Medicine 05/26/24 Pahn Garvin MD Family Medicine 09/14/22 Siddharth Jennings MD [address] [facility] [address] [place] [address] Consulting Physician Cardiology 10/10/23 documented as of this encounter
== END 2024-10-09 08:43 | disposition home or self-care (01) ==
PROVIDERS: PCP Internal Medicine; Visit Provider Internal Medicine
DX: M94.261 Chondromalacia, right knee (principal); M17.11 Unilateral primary osteoarthritis, right knee; M25.561 Pain in right knee; G89.29 Other chronic pain
CPT/HCPCS: 73564

== ENCOUNTER 2024-10-13 10:59 | Outpatient (CLI) | payer MEDICARE, SELFPAY ==
--- OUTSIDE RECORDS SUMMARY | 2024-10-13 11:28 | XMS_ITS | Clinical Summary ---
Author Organization [facility] Address [address] [place] [address] Care Team Providers Care Drive Tester Name Role Phone Angelica Frankel MD Primary Care Provider [phone] Source Comments [facility],non-owned Affiliates and Associated Physician Practices is amultiple site organization consisting of ambulatory clinics and hospital sitesin [place], [place], [place] and [place]. This disclosure is being madepursuant to the Care Everywhere program and may not contain all information available regarding this patient. Last updated 17.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 Gender Identity Not on file Sexual [...] Date of Phone Billing Address Personal/Family [address] [phone] AETNA MEDICARE ADV SELF PAY NO INSURANCE Member Subscriber Plan / Payer (Ef fective for All Dates) Name:Maria A Jean Member ID:Not on file Relation to Subscriber:Not on file Name:MARIA A JEAN Subscriber ID:Not on file Address: [address] [phone] Payer ID:Not on file Group ID:Not on file Type:Self Pay Address: [place], [place] * Guarantor: MARIA A JEAN Account Type Relation to Patient Date of Phone Billing Address Personal/Family [address] [phone] AETNA MEDICARE ADV SELF PAY NO INSURANCE Member Subscriber Plan / Payer (Ef fective for All Dates) Name:Maria A Jean Member ID:Not on file Relation to Subscriber:Not on file Name:MARIA A JEAN Subscriber ID:Not on file Address: [address] [place] [address] Payer ID:Not on file Group ID:Not on file Type:Self Pay Address: [place], [place] * Guarantor: MARIA A JEAN Account Type Relation to Patient Date of Phone Billing Address Personal/Family [address] [place] [address] AETNA MEDICARE ADV SELF PAY NO INSURANCE Member Subscriber Plan / Payer (Ef fective for All Dates) Name:Maria A Jean Member ID:Not on file Relation to Subscriber:Not on file Name:MARIA A JEAN Subscriber ID:Not on file Address: [address] [place] [address] Payer ID:Not on file Group ID:Not on file Type:Self Pay Address: [place], [place] Care Teams Drive Tester Relationship Specialty Start Date End Date Angelica Frankel MD [address] [place] [address] PCP - General 10/10/16
--- OUTSIDE RECORDS SUMMARY | 2024-10-13 11:28 | XMS_ITS | Clinical Summary ---
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 Gender Identity Not on file Sexual Orientation [...] 2024 11/15/2016 Medical Devices Implanted Type Area Product Management Manager Device Identifier Shelf Expiration Date Model / Serial / Lot Sling Desara System Suleman-Ds01 - [id number] Implanted:Qty: 1 on 12/20/2016 by Gaby Ceballos MD at [facility] Sling N/A: Vagina [employer] 08/16/2021 SULEMAN-DS01 / / [id number] Description:PO#[id number] [facility] [id number] [employer] O OPEN ACCESS Advance Directives For more information, please contact: [phone] * Full Code (Latest Code Status on File) Date Activated Date Inactivated Comments 12/20/2016 7:23 AM 12/20/2016 12:56 PM * Full Code Date Activated Date Inactivated Comments 10/09/2011 11:21 AM 10/09/2011 3:18 PM Care Teams Talent Acquisition Relationship Manager Relationship Specialty Start Date End Date Angelica Frankel MD [address] [place] [address] [address] [address] PCP - General Internal Medicine 08/11/11
--- OUTSIDE RECORDS SUMMARY | 2024-10-13 11:28 | XMS_ITS | Clinical Summary ---
Author Organization [place] [address] [address] Address [address] [place] [address] Care Team Providers Care Solar Manager Name Role Phone Phan Garvin MD Unavailable [phone] Siddharth Jennings MD Unavailable [phone] Joel Thomas MD Primary Care Provider [phone] Allergies Active Allergy Reactions Criticality Noted Date [...] mg by mouth every morning Active vit C,D-To-tbhom-l utein-zeaxan (PreserVision AREDS-2) 250-90-40-1 mg capsuleIndicat ions:eye [...] Type Department Care Team Description 08/07/2024 Telephone [facility] Medical Group Cardiology [address] [place] [address] Siddharth Jennings MD from Last 3 Months [...] Recorded In the past 12 months has [employer], gas, oil, or water [employer] threatened to shut off services in [...] week 07/20/2023 How often do you attend [facility] or judaism services? 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 Use antibiotics, IV Fluids, and medical treatment unless specifically selected below: No intubation Care Teams Solar Manager Relationship Specialty Start Date End Date Joel Thomas MD [address] [facility] [address] [place] [address] PCP - General Internal Medicine 05/26/24 Phan Garvin MD Family Medicine 09/14/22 Siddharth Jennings MD [address] [facility] [address] [place] [address] Consulting Physician Cardiology 10/10/23
--- OUTSIDE RECORDS SUMMARY | 2024-10-13 11:28 | XMS_ITS | Referral Summary ---
Author Organization [facility] [address] [facility] Address [address] [place] [address] Care Team Providers Care Precision Grinder External Name Role Phone Phan Garvin MD Unavailable [phone] Siddharth Jennings MD Unavailable [phone] Joel Thomas MD Primary Care Provider [phone] Encounters Date Type Department Care Team Description 08/07/2024 Telephone [facility] Medical Group Cardiology [address] [place] [address] Siddharth Jennings MD from Last [...] mg by mouth every morning Active vit C,O-Yx-kbare-l utein-zeaxan (PreserVision AREDS-2) 250-90-40-1 mg capsuleIndicat ions:eye [...] drink = 0.6 oz pur e alcohol) 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 Use antibiotics, IV Fluids, and medical treatment unless specifically selected below: No intubation Care Teams Precision Grinder External Relationship Specialty Start Date End Date Joel Thomas MD [address] [facility] [address] [place] [address] PCP - General Internal Medicine 05/26/24 Phan Garvin MD Family Medicine 09/14/22 Siddharth Jennings MD [address] [facility] [address] [place] [address] Consulting Physician Cardiology 10/10/23
--- OUTSIDE RECORDS SUMMARY | 2024-10-13 11:28 | XMS_ITS | Clinical Summary ---
Author Organization [facility] Address [facility] [place] [address] Care Team Providers Care Ophthalmology Assistant Name Role Phone Joel Thomas MD Primary Care Provider [phone] Social History Tobacco Use Types Packs/Day Years [...] complete this topic Insurance AETNA Care Teams Ophthalmology Assistant Relationship Specialty Start Date End Date Joel Thomas MD [address] [place] [address] PCP - General INTERNAL MEDICINE 06/04/24
== END 2024-10-13 11:00 | disposition home or self-care (01) ==
LOC: ANHLAB 11:00
PROVIDERS: PCP Internal Medicine; Visit Provider Internal Medicine
DX: R19.7 Diarrhea, unspecified (principal); Z79.899 Other long term (current) drug therapy
CPT/HCPCS: 83497

== ENCOUNTER 2024-11-25 14:52 | Outpatient (NON) | payer MEDICARE, SELFPAY ==
--- OUTSIDE RECORDS SUMMARY | 2024-11-25 16:21 | XMS_ITS | Clinical Summary ---
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 Gender Identity Not on file Sexual [...] 2024 11/15/2016 Medical Devices Implanted Type Area Customs Compliance Specialist Device Identifier Shelf Expiration Date Model / Serial / Lot Sling Desara System Suleman-Ds01 - [id number] Implanted:Qty: 1 on 12/20/2016 by Gaby Ceballos MD at [facility] Sling N/A: Vagina [employer] 08/16/2021 SULEMAN-DS01 / / [id number] Description:PO#[id number] [facility] [id number] [employer] O OPEN ACCESS Advance Directives For more information, please contact: [phone] * Full Code (Latest Code Status on File) Date Activated Date Inactivated Comments 12/20/2016 7:23 AM 12/20/2016 12:56 PM * Full Code Date Activated Date Inactivated Comments 10/09/2011 11:21 AM 10/09/2011 3:18 PM Care Teams Hardware Press Operator Relationship Specialty Start Date End Date Angelica Frankel MD [address] [place] [address] [address] [address] PCP - General Internal Medicine 08/11/11
--- OUTSIDE RECORDS SUMMARY | 2024-11-25 16:21 | XMS_ITS | Clinical Summary ---
Author Organization [place] [address] [employer] Address [address] [place] [address] Care Team Providers Care Emergency Room Clerk Name Role Phone Phan Garvin MD Unavailable [phone] Siddharth Jennings MD Unavailable [phone] Joel Thomas MD Primary Care Provider Allergies Active Allergy Reactions Criticality Noted Date Comments Prednisone Rash Medium 11/29/2016 Medications levothyroxine (SYNTHROID) 25 mcg tabletIndicati ons:hypothyroi dism Take 1 tablet (25 mcg total) by mouth every morning 2 Active cholecalcifero l (VITAMIN D-3) 2000 unit [...] mg by mouth every morning Active vit C,F-Yj-yedbb-l utein-zeaxan (PreserVision AREDS-2) 250-90-40-1 mg capsuleIndicat ions:eye vitamin Take 1 capsule by mouth 2 (two) times a day Active estradioL (ESTRACE) 0.01 % (0.1 mg/gram) vaginal creamIndicatio ns:Postmenopau jeffrey Urethral Atrophy Insert 2 g into the vagina 2 (two) times a week Mon and Fri 3 Active Vowst capsule 4 Active phenazopyridin e (PYRIDIUM) 100 mg tabletIndicati ons:Bladder pain Take 1 tablet (100 mg total) by mouth 3 (three) times a day as needed for urinary pain 90 tablet 1 4 Active Additional Information Patient not taking.Reported on 05/26/2024 pravastatin (PRAVACHOL) 80 mg tablet Take 1 tablet (80 mg total) by mouth daily 5 Active methenamine (HIPREX) 1 gram tabletIndicati ons:Recurrent UTI,Complicate d UTI (urinary tract infection) TAKE 1 TABLET(1000 MG) BY MOUTH TWICE DAILY WITH MEALS 180 tablet 3 5 Active Xarelto 20 mg tablet TAKE 1 TABLET BY MOUTH EVERY DAY 30 tablet 5 5 Active sotaloL (BETAPACE) 120 mg tablet Take 1 tablet (120 mg total) by mouth every 12 (twelve) hours 180 tablet 1 5 Active sotaloL (BETAPACE) 120 mg tablet Take 1 tablet (120 mg total) by mouth every 12 (twelve) hours 180 tablet 2 5 11/18/19 25 Discontin ued(Reord er) Active Problems Problem Noted Date Diagnosed Date [...] with small-bowel follow-through Paroxysmal atrial fibrillation 08/15/2022 Surgical History Surgery Date Site/Laterality Comments BLADDER [...] 0.6 oz pur e alcohol) [facility] Utilities Answer Date Recorded In the past 12 months has [employer], oil, or water [employer] threatened to shut off services in your home? No 07/20/2023 Social Connection and Isolation Panel Answer Date Recorded In a typical week, how many times do you talk on the phone with family, friends, or neighbors? More than three times a week 07/20/2023 How often do you get togethe r with friends or relatives? More than three times a week 07/20/2023 How often do you attend chur or sabianist services? 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 Not on [...] Pneumococcal vaccine 65+ (2 of 2 - PCV20 or PCV21) 08/02/2016 08/03/2015, 12/13/2014 Zoster Vaccine (2 of 2) 02/11/2019 12/17/2018 Fall Risk Assessment 07/22/2024 07/23/2023 Influenza Vaccine (#1) 2024 0, 12/17/2018, 11/28/2017, Additional history exists Insurance AETNA [place] [address] [place] [address] MEDICARE [facility] MEDICARE Advance Directives For more information, please contact: [phone] * LIMITED - No CPR (Latest Code Status on File) Date Activated Date Inactivated Comments 07/19/2023 10:56 PM 07/23/2023 5:51 PM Question Answer Comments Provide aggressive medical m anagement before a full cardiopulmonary arrest occurs. Use antibiotics, IV Fluids, and medical treatment unless specifically selected below: No intubation Care Teams Emergency Room Clerk Relationship Specialty Start Date End Date Joel Thomas MD [address] [facility] [address] [place] [address] PCP - General Internal Medicine 05/26/24 Phan Garvin MD Family Medicine 09/14/22 Siddharth Jennings MD [address] [place] [address] Consulting Physician Cardiology 10/10/23
--- OUTSIDE RECORDS SUMMARY | 2024-11-25 16:21 | XMS_ITS | Clinical Summary ---
Author Organization [facility] Address [facility] [place] [address] Care Team Providers Care Design Coordinator Name Role Phone Joel Thomas MD Primary Care Provider [phone] Social History Tobacco Use Types Packs/Day Years [...] of 3) 02/11/2019 019, 12/10/2009 COVID-19 Vaccine (1 - 2023-2 5 season) 2024 Meningococcal B Vaccine Aged Out No l onger eligible based on patient's age to complete this topic Meningococcal Vaccine Aged Out No speedy ramos eligible based on patient's age to complete this topic RSV Immunizations Under 20 Months Aged Out No longer eligible b ased on patient's age to complete this topic Insurance AETNA Care Teams Design Coordinator Relationship Specialty Start Date End Date Joel Thomas MD [address] [place] [address] PCP - General INTERNAL MEDICINE 06/04/24
--- OUTSIDE RECORDS SUMMARY | 2024-11-25 16:21 | XMS_ITS | Clinical Summary ---
Author Organization [facility] Address [address] [address] Care Team Providers Care Technical Assistant Name Role Phone Angelica Frankel MD Primary Care Provider [phone] Source Comments [facility],non-owned Affiliates and Associated Physician Practices is amultiple site organization consisting of ambulatory clinics and hospital sitesin [place], [place], [place] and [place]. This disclosure is being madepursuant to the Care Everywhere program and may not contain all information available regarding this patient. 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 Gender Identity Not on file Sexual [...] - 1-dose 75+ series) 2013 DEPRESSION SCREENING 03/12/2024 MEDICARE AWV CALENDAR YEAR 2024 COVID-19 VACCINE ( - 2023-2 5 season) 2024 INFLUENZA VACCINE (#1) 2024 HEPATITIS B [...] Date of Phone Billing Address Personal/Family [address] [phone] AETNA MEDICARE ADV SELF PAY NO INSURANCE Member Subscriber Plan / Payer (Ef fective for All Dates) Name:Maria A Jean Member ID:Not on file Relation to Subscriber:Not on file Name:MARIA A JEAN Subscriber ID:Not on file Address: [address] [phone] Payer ID:Not on file Group ID:Not on file Type:Self Pay Address: [place], [place] * Guarantor: MARIA A JEAN Account Type Relation to Patient Date of Phone Billing Address Personal/Family [address] [phone] AETNA MEDICARE ADV SELF PAY NO INSURANCE Member Subscriber Plan / Payer (Ef fective for All Dates) Name:Maria A Jean Member ID:Not on file Relation to Subscriber:Not on file Name:MARIA A JEAN Subscriber ID:Not on file Address: [address] [place] [address] Payer ID:Not on file Group ID:Not on file Type:Self Pay Address: [place], [place] * Guarantor: MARIA A JEAN Account Type Relation to Patient Date of Phone Billing Address Personal/Family [address] [place] [address] AETNA MEDICARE ADV SELF PAY NO INSURANCE Member Subscriber Plan / Payer (Ef fective for All Dates) Name:Maria A Jean Member ID:Not on file Relation to Subscriber:Not on file Name:MARIA A JEAN Subscriber ID:Not on file Address: [address] [place] [address] Payer ID:Not on file Group ID:Not on file Type:Self Pay Address: [place], [place] Care Teams Technical Assistant Relationship Specialty Start Date End Date Angelica Frankel MD [address] [place] [address] PCP - General 10/10/16
[2024-11-25 16:37] LABS: Toxigenic C. Diff POSITIVE (NEGATIVE)
[2024-11-26 14:08] LABS: Fats, Neutral Normal (.); Fats, Total Normal (.)
[2024-11-27 18:33] LABS: Pancreatic Elastase, Fecal 631 (>200)
[2024-11-27 18:33] LABS: Calprotectin, Fecal 40 ug/g (0-120)
== END 2024-11-25 14:53 | disposition home or self-care (01) ==
LOC: ANHLAB 14:53
PROVIDERS: PCP Internal Medicine; Visit Provider Internal Medicine
DX: R19.7 Diarrhea, unspecified (principal)
CPT/HCPCS: 82653; 82705; 83993; 87045; 87046; 87177; 87427; 87493

== ENCOUNTER 2025-01-13 10:38 | Outpatient (CLI) | payer MEDICARE, SELFPAY ==
--- NOTE | ~2025-01-13 | XR_ITS ---
EXAMINATION: [id number], 01/13/2025 10:42 STUDENT SUCCESS COUNSELOR HISTORY: Right knee pain COMPARISON: No comparisons available. Findings: No acute fracture or malalignment. Arthroplasty intact Soft tissues unremarkable. Impression: No acute fracture or malalignment. Reviewed, dictated and finalized at location P. ENT SUCCESS COUNSELOR Impression: No acute fracture or malalignment.
== END 2025-01-13 10:39 | disposition home or self-care (01) ==
LOC: MICIMG 10:39
PROVIDERS: PCP Internal Medicine; Visit Provider Nurse Practitioner Family
DX: M17.11 Unilateral primary osteoarthritis, right knee (principal); M25.761 Osteophyte, right knee; M25.461 Effusion, right knee
CPT/HCPCS: 73560

== ENCOUNTER 2025-02-27 09:07 | Outpatient (CLI) | payer MEDICARE, SELFPAY ==
--- NOTE | ~2025-02-27 | CT_ITS ---
Maria A Patel EXAMINATION: CT abdomen pelvis w con COMPARISON: None HISTORY: R19.7 - Diarrhea, unspecified TECHNIQUE: Axial images were obtained through the abdomen, pelvis post administration of IV contrast. Oral contrast was also administered. Coronal reconstruction images were obtained from the axial views. CT scan performed using dose optimization techniques including the following automated exposure control; adjustment of mA and/or kV; use of iterative reconstruction technique. Automatic exposure control was used to reduce radiation dose. Permanent radiation dose record is archived to PACS. FINDINGS: CT abdomen: LUNG BASES: Right lower lobe 3 mm micronodule. LIVER: Mild hepatic steatosis. SPLEEN: Within the spleen there are subcentimeter probable splenic hemangioma is a complex cyst but too small to characterize.. KIDNEYS: Right Kidney: Unremarkable. No calculi. No hydronephrosis. Left Kidney: Left kidney superior pole simple cyst 3 x 3 cm with subcentimeter additional probable renal cysts. ADRENAL GLANDS: Unremarkable. PANCREAS: Unremarkable. GALLBLADDER/BILIARY: Mild distention of the gallbladder. STOMACH AND ESOPHAGUS: Visualized stomach and esophagus within normal limits. BOWEL/MESENTERY: Severe diverticulosis. No colitis or diverticulitis. Appendix normal. Mesentery normal. No thickened or dilated loops of small bowel. ADENOPATHY/RETROPERITONEUM: No lymphadenopathy. AORTA/VASCULATURE: Normal caliber aorta. FREE FLUID OR FREE AIR: No free fluid.. CT pelvis: SOLID ORGANS/REPRODUCTIVE: Unremarkable. BLADDER: Circumferential thickening of the bladder wall with perivesicular stranding and mucosal hyperemia with multiple diverticula, there is hyperemia noted also of the urethra. OSSEOUS STRUCTURES: No acute osseous abnormality.No suspicious lesions. OVERLYING SOFT TISSUES: Unremarkable. IMPRESSION: Severe cystitis. Reviewed, dictated and finalized at location P. OLOGY TECHNICIAN IMPRESSION: Severe cystitis.
--- OUTSIDE RECORDS SUMMARY | 2025-02-27 09:22 | XMS_ITS | Clinical Summary ---
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 Gender Identity Not on file Sexual [...] 2024 11/15/2016 Medical Devices Implanted Type Area Manager Respiratory Device Identifier Shelf Expiration Date Model / Serial / Lot Sling Desara System Suleman-Ds01 - [id number] Implanted:Qty: 1 on 12/20/2016 by Gaby Ceballos MD at [facility] Sling N/A: Vagina [employer] 08/16/2021 SULEMAN-DS01 / / [id number] Description:PO#[id number] Insurance [facility] [id number] [facility] OPEN ACCESS Advance Directives For more information, please contact: [phone] * Full Code (Latest Code Status on File) Date Activated Date Inactivated Comments 12/20/2016 7:23 AM 12/20/2016 12:56 PM * Full Code Date Activated Date Inactivated Comments 10/09/2011 11:21 AM 10/09/2011 3:18 PM Care Teams Senior Animal Trainer Relationship Specialty Start Date End Date Angelica Frankel MD [address] [facility] [address] [address] PCP - General Internal Medicine 08/11/11
--- OUTSIDE RECORDS SUMMARY | 2025-02-27 09:22 | XMS_ITS | Clinical Summary ---
Author Organization [facility] Address [address] [place] [address] Care Team Providers Care Clinical Instructor Name Role Phone Angelica Frankel MD Primary Care Provider [phone] Source Comments [facility],non-owned Affiliates and Associated Physician Practices is amultiple site organization consisting of ambulatory clinics and hospital sitesin [place], [place], [place] and [place]. This disclosure is being madepursuant to the Care Everywhere program and may not contain all information available regarding this patient. 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 Gender Identity Not on file Sexual Orientation [...] CALENDAR YEAR 2024 COVID-19 VACCINE ( - 2024-2 6 season) 2024 INFLUENZA VACCINE (#1) 2024 HEPATITIS [...] Date of Phone Billing Address Personal/Family [address] [phone] A[employer] MEDICARE ADV SELF PAY NO INSURANCE Member Subscriber Plan / Payer (Ef fective for All Dates) Name:Maria A Jean Member ID:Not on file Relation to Subscriber:Not on file Name:MARIA A JEAN Subscriber ID:Not on file Address: [address] [phone] Payer ID:Not on file Group ID:Not on file Type:Self Pay Address: [place], [place] * Guarantor: MARIA A JEAN Account Type Relation to Patient Date of Phone Billing Address Personal/Family [address] [phone] AETNA MEDICARE ADV SELF PAY NO INSURANCE Member Subscriber Plan / Payer (Ef fective for All Dates) Name:Maria A Jean Member ID:Not on file Relation to Subscriber:Not on file Name:MARIA A JEAN Subscriber ID:Not on file Address: [address] [place] [address] Payer ID:Not on file Group ID:Not on file Type:Self Pay Address: [place], [place] * Guarantor: MARIA A JEAN Account Type Relation to Patient Date of Phone Billing Address Personal/Family [address] [place] [address] A[employer]NA MEDICARE ADV SELF PAY NO INSURANCE Member Subscriber Plan / Payer (Ef fective for All Dates) Name:Maria A Jean Member ID:Not on file Relation to Subscriber:Not on file Name:MARIA A JEAN Subscriber ID:Not on file Address: [address] [place] [address] Payer ID:Not on file Group ID:Not on file Type:Self Pay Address: [place], [place] Care Teams Clinical Instructor Relationship Specialty Start Date End Date Angelica Frankel MD [address] [place] [address] PCP - General 10/10/16
--- OUTSIDE RECORDS SUMMARY | 2025-02-27 09:22 | XMS_ITS | Clinical Summary ---
Author Organization [place] [address] [facility] Address [address] [place] [address] Care Team Providers Care Biomedical Equipment Tech Name Role Phone Phan Garvin MD Unavailable [phone] Siddharth Jennings MD Unavailable Joel Thomas MD Primary Care Provider [phone] Allergies Active Allergy Reactions Criticality Noted Date Comments Clavulanic Acid Rash Medium 08/21/2024 Redness and rash to face (patient states she is unsure) Patient has received ampicillin iv September 2022 Prednisone Rash Medium 11/29/2016 Medications levothyroxine (SYNTHROID) 25 mcg tabletIndicatio ns:hypothyroidi sm [...] mg by mouth every morning Active vit C,Z-Vq-rmtpz-anthony tein-zeaxan (PreserVision AREDS-2) 250-90-40-1 mg capsuleIndicati ons:eye [...] Additional Information Patient not taking.Reported on 05/26/2024 methenamine (HIPREX) 1 gram tabletIndicatio ns:Recurrent UTI,Complicated UTI (urinary tract infection) TAKE 1 TABLET(1000 MG) BY MOUTH TWICE DAILY WITH MEALS 180 tablet 3 5 Active Xarelto 20 mg tablet TAKE 1 TABLET BY MOUTH EVERY DAY 30 tablet 5 5 Active sotaloL (BETAPACE) 120 mg tablet Take 1 tablet (120 mg total) by mouth every 12 (twelve) hours 180 tablet 1 5 Active pravastatin (PRAVACHOL) 80 mg tablet Take 1 tablet (80 mg total) by mouth daily 90 tablet 2 5 Active sotaloL (BETAPACE) 80 mg tablet TAKE 1 TABLET BY MOUTH EVERY 12 HOURS 180 tablet 3 5 Active Active Problems Problem Noted Date [...] Encounters Date Type Department Care Team Description 2024 Telephone [facility] [address] [place] [address] [address] [place] [address] Siddharth Jennings MD Med Refill 12/04/2024 10:30 AM CDT Office Visit [facility] [address] [place] [phone] Siddharth Jennings MD Paroxysmal atrial fibrillation (HCC) [...] = 0.6 oz pur e alcohol) 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 Not on file Not on file Last Filed Vital Signs Vital Sign Reading Time Taken Comments Blood Pressure 128/80 12/04/2024 10:36 AM CDT Pulse 74 12/04/2024 10:36 AM CDT Temperature 36.8 C (98.2 F) 07/23/2023 11:42 AM CDT Respiratory Rate 18 07/23/2023 11:4 2 AM CDT Oxygen Saturation 97% 12/04/2024 10: 36 AM CDT Inhaled Oxygen Concentration - - Weight 74.3 kg (163 lb 11.2 oz) 025 10:36 AM CDT Height 160 cm (5' 3) 12/04/2024 10:36 AM CDT Body Mass Index 29 12/04/2024 10:36 AM CDT Plan of Treatment Health Maintenance [...] 0, 12/17/2018, 11/28/2017, Additional history exists Insurance [facility] Advance Directives For more information, please contact: [phone] * LIMITED - No CPR (Latest Code Status on File) Date Activated Date Inactivated Comments 07/19/2023 10:56 PM 07/23/2023 5:51 PM Question Answer Comments Provide aggressive medical m anagement before a full cardiopulmonary arrest occurs. Use antibiotics, IV Fluids, and medical treatment unless specifically selected below: No intubation Care Teams Biomedical Equipment Tech Relationship Specialty Start Date End Date Joel Thomas MD PCP - General Internal Medicine 05/26/24 Phan Garvin MD Family Medicine 09/14/22 Siddharth Jennings MD Consulting Physician Cardiology 10/10/23
== END 2025-02-27 09:08 | disposition home or self-care (01) ==
PROVIDERS: PCP Internal Medicine; Visit Provider Internal Medicine
DX: N30.90 Cystitis, unspecified without hematuria (principal)
CPT/HCPCS: 74177; Q9967

== ENCOUNTER 2025-03-06 12:26 | Inpatient (IN) | payer MEDICARE, SELFPAY ==
--- OUTSIDE RECORDS SUMMARY | 2025-03-06 12:29 | XMS_ITS | Clinical Summary ---
Author Organization [facility] Address [address] [facility] [place] [address] Care Team Providers Care Facilities Mechanical Design Engineer Name Role Phone Angelica Frankel MD Primary Care Provider [phone] Source Comments [facility],non-owned Affiliates and Associated Physician Practices is amultiple site organization consisting of ambulatory clinics and hospital sitesin [place], [place], [place] and [place]. This disclosure is being madepursuant to the Care Everywhere program and may not contain all information available regarding this patient. 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 Gender Identity Not on file Sexual Orientation [...] Date of Phone Billing Address Personal/Family [address] [phone] AETNA MEDICARE ADV SELF PAY NO INSURANCE Member Subscriber Plan / Payer (Ef fective for All Dates) Name:Maria A Jean Member ID:Not on file Relation to Subscriber:Not on file Name:MARIA A JEAN Subscriber ID:Not on file Address: [address] [phone] Payer ID:Not on file Group ID:Not on file Type:Self Pay Address: [place], [place] * Guarantor: MARIA A JEAN Account Type Relation to Patient Date of Phone Billing Address Personal/Family [address] [phone] AETNA MEDICARE ADV SELF PAY NO INSURANCE Member Subscriber Plan / Payer (Ef fective for All Dates) Name:Maria A Jean Member ID:Not on file Relation to Subscriber:Not on file Name:MARIA A JEAN Subscriber ID:Not on file Address: [address] [place] [address] Payer ID:Not on file Group ID:Not on file Type:Self Pay Address: [place], [place] * Guarantor: MARIA A JEAN Account Type Relation to Patient Date of Phone Billing Address Personal/Family [address] [place] [address] A[employer]NA MEDICARE ADV SELF PAY NO INSURANCE Member Subscriber Plan / Payer (Ef fective for All Dates) Name:Maria A Jean Member ID:Not on file Relation to Subscriber:Not on file Name:MARIA A JEAN Subscriber ID:Not on file Address: [address] [place] [address] Payer ID:Not on file Group ID:Not on file Type:Self Pay Address: [place], [place] Care Teams Facilities Mechanical Design Engineer Relationship Specialty Start Date End Date Angelica Frankel MD [address] [place] [address] PCP - General 10/10/16
--- OUTSIDE RECORDS SUMMARY | 2025-03-06 12:29 | XMS_ITS | Clinical Summary ---
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 Gender Identity Not on file Sexual [...] 2024 11/15/2016 Medical Devices Implanted Type Area Purification Operator Device Identifier Shelf Expiration Date Model / Serial / Lot Sling Desara System Suleman-Ds01 - [id number] Implanted:Qty: 1 on 12/20/2016 by Gaby Ceballos MD at [facility] Sling N/A: Vagina [employer] 08/16/2021 SULEMAN-DS01 / / [id number] Description:PO#[id number] Insurance [facility] [id number] [facility] [employer] O OPEN ACCESS Advance Directives For more information, please contact: [phone] * Full Code (Latest Code Status on File) Date Activated Date Inactivated Comments 12/20/2016 7:23 AM 12/20/2016 12:56 PM * Full Code Date Activated Date Inactivated Comments 10/09/2011 11:21 AM 10/09/2011 3:18 PM Care Teams Underground Mining Section Foreman Relationship Specialty Start Date End Date Angelica Frankel MD [address] [facility] [address] PCP - General Internal Medicine 08/11/11
--- OUTSIDE RECORDS SUMMARY | 2025-03-06 12:29 | XMS_ITS | Clinical Summary ---
Author Organization [place] [address] [facility] Address [address] [place] [address] Care Team Providers Care Dock Grader Name Role Phone Phan Garvin MD Unavailable [phone] Siddharth Jennings MD Unavailable [phone] Joel Thomas MD Primary Care Provider [phone] Allergies Active Allergy Reactions Criticality Noted Date [...] mg by mouth every morning Active vit C,M-Zo-rjnpb-anthony tein-zeaxan (PreserVision AREDS-2) 250-90-40-1 mg capsuleIndicati ons:eye [...] Type Department Care Team Description 2024 Telephone [facility] [address] [place] [address] Siddharth Jennings MD Med Refill from Last 3 Months Surgical History Surgery [...] drink = 0.6 oz pur e alcohol) [facility] Utilities Answer Date Recorded In the past 12 months has e [employer], gas, oil, or water [employer] threatened to shut off services in your [...] on file 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 Use antibiotics, IV Fluids, and medical treatment unless specifically selected below: No intubation Care Teams Dock Grader Relationship Specialty Start Date End Date Joel Thomas MD PCP - General Internal Medicine 05/26/24 Phan Garvin MD Family Medicine 09/14/22 Siddharth Jennings MD Consulting Physician Cardiology 10/10/23
--- OUTSIDE RECORDS SUMMARY | 2025-03-06 12:29 | XMS_ITS | Clinical Summary ---
Author Organization [facility] Address [facility] [place] [address] Care Team Providers Care Clinical Trial Specialist Name Role Phone Joel Thomas MD Primary Care Provider [phone] Social History Tobacco Use Types Packs/Day Years Used Date Smoking Tobacco: Never Assessed Sex and Gender Information Value Date Recorded Sex Assigned at Male 06/04/2024 1:15 PM CDT Legal Sex Female 11:07 AM CDT Gender Identity Not on file Sexual Orientation Not on file Plan of Treatment Health Maintenance Due Date Last Done Comments DTaP, Tdap and Td Vaccines (1 - Tdap) 01/08/2001 01/07/2001 Annual Medicare Wellness Visit 12/24/2003 RSV Immunization or 60+ Years (1 - 1-dose 75+ series) 2013 Pneumococcal Vaccine: 50+ Years (2 of 2 - PCV20 or PCV21) 08/02/2016 08/03/2015, 12/13/2014 Zoster Vaccines (3 of 3) 02/11/2019 12/17/2018, 03/2009 COVID-19 Vaccine ( - season) 2024 Influenza Adult (#1) 2024 12/17/2018, 11/28/2017, 11/23/2016, Additional history exists Hepatitis A Vaccines Aged Out No long er eligible based on patient's age to complete this topic Meningococcal B Vaccine Aged Out No l onger eligible based on patient's age to complete this topic Meningococcal Vaccine Aged Out No speedy ramos eligible based on patient's age to complete this topic RSV Immunizations Under 20 Months Aged Out No longer eligible based on patient's age to complete this topic Insurance AETNA MEDICARE Care Teams Clinical Trial Specialist Relationship Specialty Start Date End Date Joel Thomas MD [address] [place] [id number] PCP - General INTERNAL MEDICINE 06/04/24
[2025-03-06 12:35] VITALS: BP 162/85; PULSE 77; RESP 16; TEMP 36.5; O2SAT 98
[2025-03-06 14:30] VITALS: PULSE 77; RESP 18; O2SAT 98
[2025-03-06 16:49] VITALS: BP 138/84; PULSE 74; RESP 16; O2SAT 98
--- OUTSIDE RECORDS SUMMARY | 2025-03-06 16:53 | XMS_ITS | Clinical Summary ---
Author Organization [facility] Address [facility] [place] [address] Care Team Providers Care Box Gluer Name Role Phone Joel Thomas MD Primary Care Provider [phone] Social History Tobacco Use Types Packs/Day Years [...] this topic Insurance AETNA MEDICARE Care Teams Box Gluer Relationship Specialty Start Date End Date Joel Thomas MD [address] [place] [address] PCP - General INTERNAL MEDICINE 06/04/24
--- OUTSIDE RECORDS SUMMARY | 2025-03-06 16:53 | XMS_ITS | Clinical Summary ---
Author Organization [place] [address] [facility] Address [address] [place] [address] Care Team Providers Care Dump Truck Driver Off Highway Name Role Phone Phan Garvin MD Unavailable [phone] Siddharth Jennings MD Unavailable [phone] Joel Thomas MD Primary Care Provider [phone] Allergies Active Allergy Reactions Criticality Noted Date [...] mg by mouth every morning Active vit C,E-Fa-dgcal-anthony tein-zeaxan (PreserVision AREDS-2) 250-90-40-1 mg capsuleIndicati ons:eye [...] Type Department Care Team Description 2024 Telephone [facility] Cardiology [address] [place] [address] Siddharth Jennings MD Med Refill from Last [...] oz pur e alcohol) [facility] Utilities Answer Date Recorded In the past 12 months has e [employer], gas, oil, or water [employer] threatened to shut off services in your [...] on file 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 Use antibiotics, IV Fluids, and medical treatment unless specifically selected below: No intubation Care Teams Dump Truck Driver Off Highway Relationship Specialty Start Date End Date Joel Thomas MD PCP - General Internal Medicine 05/26/24 Phan Garvin MD Family Medicine 09/14/22 Siddhatrh Jennings MD Consulting Physician Cardiology 10/10/23
--- OUTSIDE RECORDS SUMMARY | 2025-03-06 16:53 | XMS_ITS | Clinical Summary ---
Author Organization [facility] Address [address] [facility] [place] [address] Care Team Providers Care Sweatband Maker Name Role Phone Angelica Frankel MD Primary Care Provider [phone] Source Comments [facility],non-owned Affiliates and Associated Physician Practices is amultiple site organization consisting of ambulatory clinics and hospital sitesin [place], [place], [place] and [place]. This disclosure is being madepursuant to the Care Everywhere program and may not contain all information available regarding this patient. 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 Gender Identity Not on file Sexual [...] Date of Phone Billing Address Personal/Family [address] [phone] AETNA MEDICARE ADV SELF PAY NO INSURANCE Member Subscriber Plan / Payer (Ef fective for All Dates) Name:Maria A Jean Member ID:Not on file Relation to Subscriber:Not on file Name:MARIA A JEAN Subscriber ID:Not on file Address: [address] [phone] Payer ID:Not on file Group ID:Not on file Type:Self Pay Address: [place], [place] * Guarantor: MARIA A JEAN Account Type Relation to Patient Date of Phone Billing Address Personal/Family [address] [phone] A[employer]NA MEDICARE ADV SELF PAY NO INSURANCE Member Subscriber Plan / Payer (Ef fective for All Dates) Name:Maria A Jean Member ID:Not on file Relation to Subscriber:Not on file Name:MARIA A JEAN Subscriber ID:Not on file Address: [address] [place] [address] Payer ID:Not on file Group ID:Not on file Type:Self Pay Address: [place], [place] * Guarantor: MARIA A JEAN Account Type Relation to Patient Date of Phone Billing Address Personal/Family [address] [place] [address] A[employer]NA MEDICARE ADV SELF PAY NO INSURANCE Member Subscriber Plan / Payer (Ef fective for All Dates) Name:Maria A Jean Member ID:Not on file Relation to Subscriber:Not on file Name:MARIA A JEAN Subscriber ID:Not on file Address: [address] [place] [address] Payer ID:Not on file Group ID:Not on file Type:Self Pay Address: [place], [place] Care Teams Sweatband Maker Relationship Specialty Start Date End Date Angelica Frankel MD [address] [place] [address] PCP - General 10/10/16
--- OUTSIDE RECORDS SUMMARY | 2025-03-06 16:53 | XMS_ITS | Clinical Summary ---
Author Organization [facility] Address [address] [place] [address] Phone Care Team Providers Care Sourcing Specialist Name Role Phone Angelica Frankel MD Primary Care Provider [phone] Allergies Active Allergy Reactions Criticality Noted Date Comments Prednisone Rash 11/29/2016 Medications SIMVASTATIN ORAL Take 10 mg by mouth late in the day . Active multivitamin (DAILY-LYNSEY) Oral tablet Take 1 Tab by mouth daily. 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 Sling N/A: Vagina [employer] 08/16/2021 SULEMAN-DS01 / / [id number] Description:PO#[id number] Insurance [facility] [id number] [facility] Advance Directives For more information, please contact: [phone] * Full Code (Latest Code Status on File) Date Activated Date Inactivated Comments 12/20/2016 7:23 AM 12/20/2016 12:56 PM * Full Code Date Activated Date Inactivated Comments 10/09/2011 11:21 AM 10/09/2011 3:18 PM Care Teams Sourcing Specialist Relationship Specialty Start Date End Date Angelica Frankel MD [address] [facility] [address] [address] PCP - General Internal Medicine 08/11/11
[2025-03-06 16:58] LABS: Add Urine Microscopic? YES; Appearance Urine Clear (Clear); Glucose Urine UA Negative (Negative); Leukocyte Esterase Ur 2+ LEU/UL (Negative); Nitrate Urine Negative (Negative); Non Pathogenic Casts 0-2; Specific Grav Ur 1.011 (1.001-1.035)
[2025-03-06] MEDS: cefTRIAXone 1 GM in SODIUM CHLORIDE 0.9% IV 50 ML 100 ML IVPB (17:32)
[2025-03-06 17:33] LABS: Hematocrit 37.6 % (37.0-47.0); Hemoglobin 12.0 g/dL (12.0-15.0); Immature Granulocyte Percent A 0.2 % (0-0.5); Lymphocytes Absolute Auto 2.09 K/mm3 (0.9-3.2); Mean Corpuscular HGB Conc 31.9 g/dl (32-36); Mean Corpuscular Hemoglobin 30.5 pg (26-34); Mean Corpuscular Volume 95.7 fl (80-100); Nucleated Red Blood Cells Absolute Auto 0.000 K/mm3 (0.0-0.012); Nucleated Red Blood Cells Perc 0.0 % (0.0-0.2); Platelet Count Result 202 k/mm3 (150-375); Red Blood Count 3.93 M/mm3 (4.2-5.4); White Blood Count 5.4 K/mm3 (4.5-10.0)
[2025-03-06 17:36] VITALS: PULSE 72; RESP 17; TEMP 36.7; O2SAT 99
--- NOTE | 2025-03-06 17:37 | ED_ITS ---
HPI - General Adult General Chief complaint: Urogenital-Female <Martín King MD - Last Filed: 03/06/25 17:39> Stated complaint: uti-send by miles <Martín King MD - Last Filed: 03/06/25 17:39> Time Seen by Provider: 03/06/25 16:46 <Martín King MD - Last Filed: 03/06/25 17:39> History of Present Illness HPI narrative: Patient is an 84-year-old female who presents ER with multi-drug resistant UTI. She had a outpatient labs performed on 03/03/2025 that shows E coli that is only sensitive to IV medications. Patient reports she has been having issues with urinary tract infections for years and specifically over last few months she has been on Bactrim, ciprofloxacin, and Macrobid for weeks on end. She has seen neurology in the past. She did not tolerate self catheterization. There has been conversation about having her bladder irrigated weekly but the office is not open the door to set up. She has no fevers or chills or sweats. She does have discomfort around her vaginal area. <Martín King MD - Last Filed: 03/06/25 17:39> Related Data Home medications: Home Medications ?Medication ?Instructions ?Recorded ?Confirmed ?Last Taken ?Type mecobalamin (vitamin B12) 1,000 1,000 mcg PO DAILY 02/18/25 Unknown History mcg chewable tablet Bio B Complex BYMOUTH 03/24/24 02/18/25 Un known History Bio- Immunozyme BYNEUTH 03/24/24 02/18/25 Un known History BioMega- 1000 BYNEUTH 03/24/24 02/18/25 Un known History Reacted Magnesium BYNEUTH 03/24/24 02/18/25 Un known History Thiamine BYNEUTH 03/24/24 02/18/25 Un known History Vitamin D 5,000 units BYNEUTH 03/24/24 02/18/25 Unknown History vitamins A,C,K-pnqc-paglrj 2,148 2 tablet PO BID 03/2402/18/25 Unknown History mcg-113 mg-45 mg-17.4 mg tablet (PreserVision AREDS) estradiol 0.01% (0.1 mg/gram) 1 g vaginal 2XW 03/25/24 02/18/25 Unknown History vaginal cream [facility] 10/08/24 02/18/25 Un known History METHENAMINE HIPPUTATE 1 [facility] 10/08/24 5 Unknown History Theracran One [facility] 10/08/24 02/18/25 Un known History Ultimate Dodie(Probiotic) [facility] 10/08/24 02/18/25 Un known History <Martín King MD - Last Filed: 03/06/25 17:39> Allergies/adverse reactions: Allergies Allergy/AdvReac Type Severity Reaction Status Date / Time prednisone Allergy Unknown Unknown Verified 02/18/25 11:48 clavulanic acid (From Allergy Rash Verified 02/18/25 11:48 Augmentin) <Martín King MD - Last Filed: 03/06/25 17:39> Review of Systems 2 Review of Systems: All systems reviewed & are unremarkable except as noted in HPI and below <Martín King MD - Last Filed: 03/06/25 17:39> Constitutional: Constitutional: Reports no additional constitutional complaints <Martín King MD - Last Filed: 03/06/25 17:39> Gastrointestinal: Gastrointestinal: Reports no additional gastrointestinal complaints <Mratín King MD - Last Filed: 03/06/25 17:39> Genitourinary: Genitourinary: Reports no additional female genitourinary complaints <Martín King MD - Last Filed: 03/06/25 17:39> [facility] Past Medical History Medical History: Medical History (Updated 03/06/25 @ 19:22 by Janett Stroud MD) Encounter for routine adult health examination with abnormal findings BMI 27.0-27.9,adult C. difficile diarrhea Peripheral neuropathy Follow up Knee pain, chronic Pre-syncope Pain of right great toe Diverticula, bladder Posterior vitreous detachment Fall Encounter to establish care BMI 33.0-33.9,adult On skilled nursing drug therapy Claustrophobia Alopecia Macular degeneration Foreign body in ear Vitamin D deficiency, unspecified Vitamin B deficiency Hyperlipidemia High risk medication use Lumbar spondylosis Confusion Diverticulitis Colitis Recurrent UTI (urinary tract infection) Hypothyroidism BMI 28.0-28.9,adult Interstitial cystitis (chronic) with hematuria Atrial fibrillation with rapid ventricular response Hematuria COVID-30 March 2021 Persistent cough Impacted cerumen of both ears Osteoporosis Cataract, right eye Screen for colon cancer BMI 29.0-29.9,adult UTI (urinary tract infection) Hyperlipidemia Screening for thyroid disorder Vitamin D deficiency BMI 30.0-30.9,adult Screening for breast cancer ETD (eustachian tube dysfunction) Perforation of right tympanic membrane GERD (gastroesophageal reflux disease) Otitis media Osteoarthritis of right knee <Martín King MD - Last Filed: 03/06/25 17:39> Surgical History Surgical History: Surgical History History of bladder surgery <Martín King MD - Last Filed: 03/06/25 17:39> Family History Family History: Family History Father Acute myocardial infarction Heart disease Mother Alcohol abuse Tobacco abuse Cancer Sibling Skin cancer Sibling Breast cancer Grandparent Heart disease Grandparent Heart disease <Martín King MD - Last Filed: 03/06/25 17:39> Social History Social History: Social History Social History: patient is a she has two kids. Her daughter Nisa is her surrogate. She wishes to be DNR. 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 HEAD: Normocephalic, atraumatic. NECK: Supple. CHEST: Clear to auscultation. No respiratory distress. HEART: Regular rate and rhythm. Normal peripheral pulses. ABDOMEN: Soft, nontender, nondistended. EXTREMITIES: Normal range of motion. No edema. SKIN: Warm, dry, no rash. NEURO: Alert and oriented x3. PSYCH: Normal mood and affect. <Martín King MD - Last Filed: 03/06/25 17:39> Course Course Emergency Course: Patient Signed out to me pending discussion with hospitalist for admission. Patient reportedly has a history of chronic UTIs for which she is currently on p.o. medications and his try to see Urology and self catheterization home but she does not tolerate this well. There was question of incomplete voiding which contributes to her symptoms. Earlier this week her PCP orders urinalysis/ culture which resulted as E coli multidrug resistant. Reportedly sensitive to IV antibiotics only and attending had started ceftriaxone. DONNA Mitra did call back and accept admission. Patient hemodynamically stable with normal vital signs most recently. Stable for the floor. <Janett Stroud MD - Last Filed: 03/06/25 19:22> Vital Signs Vital signs: Vital Signs Temperature 97.7 F 03/06/25 12:35 Pulse Rate 77 03/06/25 12:35 Respiratory Rate 16 03/06/25 12:35 Blood Pressure 162/85 H 03/06/25 12:35 Pulse Oximetry 98 03/06/25 12:35 Oxygen Delivery Room Air 03/06/25 12:35 Temperature 98.1 F 03/06/25 17:36 Pulse Rate 72 03/06/25 17:36 Respiratory Rate 17 03/06/25 17:36 Blood Pressure 138/84 03/06/25 16:49 Pulse Oximetry 99 03/06/25 17:36 Oxygen Delivery Room Air 03/06/25 12:35 <Martín King MD - Last Filed: 03/06/25 17:39> Vital Signs Temperature 97.7 F 03/06/25 12:35 Pulse Rate 77 03/06/25 12:35 Respiratory Rate 16 03/06/25 12:35 Blood Pressure 162/85 H 03/06/25 12:35 Pulse Oximetry 98 03/06/25 12:35 Oxygen Delivery Room Air 03/06/25 12:35 Temperature 98.1 F 03/06/25 17:36 Pulse Rate 72 03/06/25 17:36 Respiratory Rate 17 03/06/25 17:36 Blood Pressure 138/84 03/06/25 16:49 Pulse Oximetry 99 03/06/25 17:36 Oxygen Delivery Room Air 03/06/25 12:35 <Janett Stroud MD - Last Filed: 03/06/25 19:22> MDM Differential Diagnosis Differential Diagnosis: UTI, chronic colonization, drug resistent UTI, cystitis, pyelonephritis < Janett Stroud MD - Last Filed: 03/06/25 19:22> Lab Data Result diagrams: 03/06/25 17:24 03/06/25 17:24 <Martín King MD - Last Filed: 03/06/25 17:39> Labs: Lab Results 03/06/25 03/06/25 Range/Units 16:48 17:24 WBC 5.4 (4.5-10.0) K/mm3 RBC 3.93 L (4.2-5.4) M/mm3 Hgb 12.0 (12.0-15.0) g/dL Hct 37.6 (37.0-47.0) % MCV 95.7 (80-100) fl MCH 30.5 (26-34) pg MCHC 31.9 L (32-36) g/dl RDW 13.4 (11.5-14.5) % Plt Count 202 (150-375) k/mm3 MPV 10.4 (7.4-10.4) fl Immature Gran % (Auto) 0.2 (0-0.5) % Neut % (Auto) 42.9 L (45.5-73.1) % Lymph % (Auto) 38.8 (18.3-44.2) % [place] % (Auto) 14.8 H (2.6-8.5) % Eos % (Auto) 2.6 (0-4.4) % Baso % (Auto) 0.7 (0.2-1.2) % Lymph # (Auto) 2.09 (0.9-3.2) K/mm3 Horry # (Auto) 0.8 H (0.1-0.6) K/mm3 Eos # (Auto) 0.1 (0-0.3) K/mm3 Baso # (Auto) 0.0 (0.0-0.1) K/mm3 Abs Immat Gran (auto) 0.01 (0.00-0.031) K/mm3 Absolute Neuts (auto) 2.3 (1.3-6.7) K/mm3 Absolute Nucleated RBC 0.000 (0.0-0.012) K/mm3 Nucleated RBC % 0.0 (0.0-0.2) % Sodium 139 (137-145) mmol/L Potassium 3.9 (3.4-5.0) mmol/L Chloride 107 (98-107) mmol/L Carbon Dioxide 25 (22-30) mmol/L Anion Gap 7 (4-12) mmol/L BUN 24 H (7-17) mg/dL Creatinine 0.70 (0.7-1.0) mg/dL Estim Creat Clear Calc 47 ml/min Estimated GFR > 60 (59 - ) Glucose 92 (65-110) mg/dL Calcium 9.4 (8.4-10.2) mg/dL Total Bilirubin 0.4 (0.2-1.3) mg/dL AST 37 H (14-36) U/L ALT 21 (6-35) U/L Alkaline Phosphatase 90 (38-126) U/L Total Protein 7.3 (6.3-8.2) g/dL Albumin 4.0 (3.5-5.1) g/dL Urine Color Yellow (Yellow) Urine Appearance Clear (Clear) Urine pH 6.5 (5.0-9.0) Ur Specific [place] 1.011 (1.001-1.035) Urine Protein Negative (Negative) mg/dL Urine Glucose (UA) Negative (Negative) mg/dL Urine Ketones Negative (Negative) mg/dL Ur Blood (Man) Trace (Negative) Urine Nitrate Negative (Negative) Urine Bilirubin Negative (Negative) Urine Urobilinogen 0.2 (<2.0) mg/dL Leukocyte Esterase Rfl 2+ H (Negative) CLARA/UL Urine RBC 0-2 (0-2) /hpf Urine WBC 21-50 H (0-3) /hpf Ur Squamous Epith Cells Occasional (Few) /hpf Urine Bacteria 4+ H /hpf Urine Casts 0-2 <Martín King MD - Last Filed: 03/06/25 17:39> Lab Results 03/06/25 03/06/25 Range/Units 16:48 17:24 WBC 5.4 (4.5-10.0) K/mm3 RBC 3.93 L (4.2-5.4) M/mm3 Hgb 12.0 (12.0-15.0) g/dL Hct 37.6 (37.0-47.0) % MCV 95.7 (80-100) fl MCH 30.5 (26-34) pg MCHC 31.9 L (32-36) g/dl RDW 13.4 (11.5-14.5) % Plt Count 202 (150-375) k/mm3 MPV 10.4 (7.4-10.4) fl Immature Gran % (Auto) 0.2 (0-0.5) % Neut % (Auto) 42.9 L (45.5-73.1) % Lymph % (Auto) 38.8 (18.3-44.2) % H[place] % (Auto) 14.8 H (2.6-8.5) % Eos % (Auto) 2.6 (0-4.4) % Baso % (Auto) 0.7 (0.2-1.2) % Lymph # (Auto) 2.09 (0.9-3.2) K/mm3 [place] # (Auto) 0.8 H (0.1-0.6) K/mm3 Eos # (Auto) 0.1 (0-0.3) K/mm3 Baso # (Auto) 0.0 (0.0-0.1) K/mm3 Abs Immat Gran (auto) 0.01 (0.00-0.031) K/mm3 Absolute Neuts (auto) 2.3 (1.3-6.7) K/mm3 Absolute Nucleated RBC 0.000 (0.0-0.012) K/mm3 Nucleated RBC % 0.0 (0.0-0.2) % Sodium 139 (137-145) mmol/L Potassium 3.9 (3.4-5.0) mmol/L Chloride 107 (98-107) mmol/L Carbon Dioxide 25 (22-30) mmol/L Anion Gap 7 (4-12) mmol/L BUN 24 H (7-17) mg/dL Creatinine 0.70 (0.7-1.0) mg/dL Estim Creat Clear Calc 47 ml/min Estimated GFR > 60 (59 - ) Glucose 92 (65-110) mg/dL Calcium 9.4 (8.4-10.2) mg/dL Total Bilirubin 0.4 (0.2-1.3) mg/dL AST 37 H (14-36) U/L ALT 21 (6-35) U/L Alkaline Phosphatase 90 (38-126) U/L Total Protein 7.3 (6.3-8.2) g/dL Albumin 4.0 (3.5-5.1) g/dL Urine Color Yellow (Yellow) Urine Appearance Clear (Clear) Urine pH 6.5 (5.0-9.0) Ur Specific [place] 1.011 (1.001-1.035) Urine Protein Negative (Negative) mg/dL Urine Glucose (UA) Negative (Negative) mg/dL Urine Ketones Negative (Negative) mg/dL Ur Blood (Man) Trace (Negative) Urine Nitrate Negative (Negative) Urine Bilirubin Negative (Negative) Urine Urobilinogen 0.2 (<2.0) mg/dL Leukocyte Esterase Rfl 2+ H (Negative) CLARA/UL Urine RBC 0-2 (0-2) /hpf Urine WBC 21-50 H (0-3) /hpf Ur Squamous Epith Cells Occasional (Few) /hpf Urine Bacteria 4+ H /hpf Urine Casts 0-2 <Janett Stroud MD - Last Filed: 03/06/25 19:22> Discharge Plan Discharge Clinical Impression: Urinary tract infection, E. coli <Martín King MD - Last Filed: 03/06/25 17:39> Patient Disposition: Still a Patient <Mratín King MD - Last Filed: 03/06/25 17:39> Condition: Stable <Martín King MD - Last Filed: 03/06/25 17:39> Patient Language: Uzbek <Martín King MD - Last Filed: 03/06/25 17:39> Prescriptions: No Action mecobalamin (vitamin B12) 1,000 mcg tablet,chewable 1,000 mcg PO DAILY Reacted Magnesium BYMOUTH Vitamin D 5,000 units [facility] BioMega- 1000 [facility] Thiamine [facility] Patient Comments: 50mg Bio- Immunozyme [facility] PreserVision AREDS 2,148 mcg-113 mg-45 mg-17.4mg tablet 2 tablet PO BID Rx Instructions: administer with AM and PM meals Bio B Complex [facility] sotalol 80 mg tablet 80 mg PO Q12HR Qty: 90 1RF METHENAMINE HIPPUTATE 1 g [facility] Xarelto 20 mg tablet 20 mg PO DAILY Qty: 90 0RF Rx Instructions: must administer with evening meal Ultimate Dodie(Probiotic) [facility] Theracran One [facility] KappArest [facility] estradiol 0.01 % (0.1 mg/gram) cream 1 g vaginal 2XW lorazepam [Ativan] 0.5 mg tablet 0.5 mg PO ONCE Qty: 1 0RF levothyroxine 25 mcg tablet 25 mcg PO DAILY@0630 30 Days Qty: 30 5RF pravastatin 80 mg tablet 80 mg PO DAILY Qty: 90 0RF phenazopyridine [Pyridium] 200 mg tablet 200 mg PO TID PRN (Reason: pain) Qty: 30 0RF sulfamethoxazole-trimethoprim [Bactrim DS] 800-160 mg tablet See Rx Instructions PO Q12H Qty: 14 0RF Rx Instructions: Take 1/2 tba by oral route twice daily for 7 days then 1/2 tab once daily for 7 days then stop. orally every 12 hours; ciprofloxacin HCl 250 mg tablet See Rx Instructions PO Q12H Qty: 20 0RF Rx Instructions: take 1 tablet bid for 5 days and then take 1 tablet daily for 10 days orally tramadol 50 mg tablet 50 mg PO QID PRN (Reason: pain) Qty: 20 0RF <Martín King MD - Last Filed: 03/06/25 17:39> Follow-up/Referrals: Joel Thomas MD [Primary Care Provider, Internal Medicine] <Martín King MD - Last Filed: 03/06/25 17:39> Time of Disposition: 19:22 <Martín King MD - Last Filed: 03/06/25 17:39> 19:22 <Janett Stroud MD - Last Filed: 03/06/25 19:22>
[2025-03-06 18:22] LABS: Alanine Aminotransferase 21 U/L (6-35); Albumin Level 4.0 g/dL (3.5-5.1); Alkaline Phosphatase 90 U/L (38-126); Anion Gap 7 mmol/L (4-12); Aspartate Amino Transferase 37 U/L (14-36); Bilirubin,Total 0.4 mg/dL (0.2-1.3); Blood Urea Nitrogen 24 mg/dL (7-17); Calcium 9.4 mg/dL (8.4-10.2); Carbon Dioxide 25 mmol/L (22-30); Chloride 107 mmol/L (98-107); Estimated CRCL calculation 47 ml/min; Estimated Glomerular Filt Rate > 60; Glucose 92 mg/dL (65-110); Potassium 3.9 mmol/L (3.4-5.0); Sodium 139 mmol/L (137-145); Total Protein 7.3 g/dL (6.3-8.2)
--- NOTE | 2025-03-06 20:11 | PM.IMHP2 ---
H&P: HPI History of Present Illness Date/Time: 03/06/25 20:11 Chief Complaint: Urinary symptoms Narrative: This is an 84-year-old female patient who has had multiple drug-resistant UTIs. She is currently under the care of Urology. The patient stated that she has had multiple UTIs over the years. The last few months she has been on Bactrim, ciprofloxacin and Macrobid for weeks. The patient was not able to tolerate self catheterization. ED provider reported that she had a urine culture resulted as E coli on 03/03/2025 that was only sensitive to IV medications. Today's urinalysis shows 2+ leukocyte esterase, urine WBCs 21-50 and 4+ urine bacteria. The patient was started on ceftriaxone. She is afebrile And wbcs Are normal. The patient is being admitted to observation status on the date of service of 03/06/2025. Review of Systems Constitutional: Constitutional: Reports as per HPI and Reports no additional constitutional complaints Eyes: Eyes: Reports as per HPI and Reports no additional eye complaints ENT: Reports no additional ear, nose, mouth, and throat complaints and Reports Normal hearing present Cardiovascular: Cardiovascular: Reports no additional cardiovascular complaints Respiratory: Respiratory: Reports as per HPI and Reports no additional respiratory complaints Gastrointestinal: Gastrointestinal: Reports as per HPI and Reports no additional gastrointestinal complaints Genitourinary: Genitourinary: Reports no additional female genitourinary complaints Musculoskeletal: Musculoskeletal: Reports no additional musculoskeletal complaints Integumentary/Breasts: Skin/Breast: Reports system reviewed and no additional complaints, except as docu Neurologic: Reports no additional neurologic complaints and Reports Normal hearing present Psychiatric: Psychiatric: Reports no additional psychiatric complaints and Reports as per HPI Hematologic/Lymphatic: Hematologic/Lymphatic: Reports no additional hematologic/lymphatic complaints Allergic/Immunologic: Allergic/Immunologic: Reports no additional allergic/immunologic complaints PMF Past Medical History Medical History Encounter for routine adult health examination with abnormal findings BMI 27.0-27.9,adult C. 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 Claustrophobia Alopecia Macular degeneration Foreign body in ear Vitamin D deficiency, unspecified Vitamin B deficiency Hyperlipidemia High risk medication use Lumbar spondylosis Confusion Diverticulitis Colitis Recurrent UTI (urinary tract infection) Hypothyroidism BMI 28.0-28.9,adult Interstitial cystitis (chronic) with hematuria Atrial fibrillation with rapid ventricular response Hematuria COVID-30 March 2021 Persistent cough Impacted cerumen of both ears Osteoporosis Cataract, right eye Screen for colon cancer BMI 29.0-29.9,adult UTI (urinary tract infection) Hyperlipidemia Screening for thyroid disorder Vitamin D deficiency BMI 30.0-30.9,adult Screening for breast cancer ETD (eustachian tube dysfunction) Perforation of right tympanic membrane GERD (gastroesophageal reflux disease) Otitis media Osteoarthritis of right knee Surgical History Surgical History (Updated 03/06/25 @ 20:14 by Mitra Benson APRN) H/O: hysterectomy History of tonsillectomy and adenoidectomy History of cataract extraction History of back surgery History of bladder surgery Family History Family History Father Acute myocardial infarction Heart disease Mother Alcohol abuse Tobacco abuse Cancer Sibling Skin cancer Sibling Breast cancer Grandparent Heart disease Grandparent Heart disease Social History Social History (Updated 03/06/25 @ 20:18 by Mitra Benson APRN) Social History: patient is a she has two kids. Her daughter Nisa is her surrogate. She wishes to be DNR. 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, 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xual Spiritual care concerns: No Agree to blood products: Yes Meds Home Medications and Allergies Home Medications ?Medication ?Instructions ?Recorded ?Confirmed ?Type mecobalamin (vitamin B12) 1,000 1,000 mcg PO DAILY 08/28/23 02/18/25 History mcg chewable tablet Bio B Complex BYMOUTH 03/24/24 02/18/25 History Bio- Immunozyme BYMOUTH 03/24/24 02/18/25 History BioMega- 1000 BYMOUTH 03/24/24 02/18/25 History Reacted Magnesium BYMOUTH 03/24/24 02/18/25 History Thiamine BYMOUTH 03/24/24 02/18/25 History Vitamin D 5,000 units BYMOUTH 03/24/24 02/18/25 History vitamins A,C,V-dokr-ogobei 2,148 2 tablet PO BID 03/24/24 02/18/25 History mcg-113 mg-45 mg-17.4 mg tablet (PreserVision AREDS) estradiol 0.01% (0.1 mg/gram) 1 g vaginal 2XW 03/25/24 02/18/25 History vaginal cream lorazepam 0.5 mg tablet (Ativan) 0.5 mg PO ONCE #1 tablet 08/22/24 02/18/25 Rx levothyroxine 25 mcg tablet 25 mcg PO DAILY@0630 1 month #30 08/31/24 02/18/25 Rx tabs KappArest BYMOUTH 10/08/24 02/18/25 History METHENAMINE HIPPUTATE 1 g BYMOUTH 10/08/24 02/18/25 History Theracran One BYPAUTH 10/08/24 02/18/25 History Ultimate Dodie(Probiotic) BYMOUTH 10/08/24 02/18/25 History rivaroxaban 20 mg tablet (Xarelto) 20 mg PO DAILY #90 tabs 10/08/24 02/18/25 Rx sotalol 80 mg tablet 80 mg PO Q12HR #90 tabs 10/08/24 02/18/25 Rx pravastatin 80 mg tablet 80 mg PO DAILY #90 tabs 12/29/24 02/18/25 Rx phenazopyridine 200 mg tablet 200 mg PO TID PRN pain #30 tabs 02/10/25 02/18/25 Rx (Pyridium) sulfamethoxazole 800 See Rx Instructions PO Q12H #14 02/10/25 02/18/25 Rx mg-trimethoprim 160 mg tablet tabs (Bactrim DS) ciprofloxacin HCl 250 mg tablet See Rx Instructions PO Q12H #20 03/03/25 Rx tabs tramadol 50 mg tablet 50 mg PO QID PRN pain #20 tabs 03/03/25 Rx Allergies Allergy/AdvReac Type Severity Reaction Status Date / Time prednisone Allergy Unknown Unknown Verified 03/06/25 23:18 clavulanic acid (From Allergy Rash Verified 03/06/25 23:18 Augmentin) Vital Signs Vital Signs - 24 hr 03/06/25 12:35 03/06/25 14:30 03/06/25 16:49 Temperature 97.7 F Pulse Rate 77 77 74 Respiratory Rate 16 18 16 Blood Pressure 162/85 H 138/84 Pulse Oximetry 98 98 98 Oxygen Delivery Room Air 03/06/25 17:36 Temperature 98.1 F Pulse Rate 72 Respiratory Rate 17 Blood Pressure Pulse Oximetry 99 Oxygen Delivery Exam Const: General: cooperative, healthy appearing, comfortable, no acute distress, well developed, awake, Physically active, average body habitus and well nourished Nutritional Appearance: average body habitus and well nourished Orientation/consciousness: oriented to person, oriented to place, oriented to time and patient oriented x3 Limitations: no limitations HENMT: Head: normal to inspection, No palpable skull fracture present, normocephalic, atraumatic and abrasion Eyes: General: appearance normal, both eyes and all related structures Alignment and Position: alignment normal Periorbital: periorbital findings normal Eyelids: eyelids normal Neck: Neck: normal visual inspection, full ROM and no lymphadenopathy Chest: Chest palpation & inspection: normal inspection of the chest Resp: Auscultation: clear to auscultation bilaterally Cardio: Palpation: normal PMI Rate: regular rate Rhythm: regular rhythm GI: Inspection: normal to inspection Percussion: Yes normal to percussion Auscultation: normal bowel sounds Rectal Exam: deferred : General: Yes no CVA tenderness Back/Spine/Pelvis: Back: no CVA tenderness Skin: General skin exam: normal color Lesions: no lesions Rashes: no rashes Trauma: no lacerations or abrasions Wounds: no wounds Hair: normal Nails: normal Neuro: General: oriented to person, oriented to place, oriented to time and patient oriented x3 Cranial nerves: Yes Equal, round and reactive pupils present and Yes Normal hearing present Cognition (Neuro): normal cognition Speech: normal speech Gait exam (Neuro): Normal gait present Motor exam (neuro): 5/5 motor strength present throughout Sensory Exam: normal sensation Extrem: General: normal to inspection Right upper extremity: normal to inspection and shoulder/upper arm Left upper extremity: normal to inspection and shoulder/upper arm Right lower extremity: normal to inspection Left lower extremity: normal to inspection Psych: Appearance: grossly normal Mental Status: mental status grossly normal Speech and movement: Normal speech and movement present Affect: normal affect Attitude: cooperative Thought process: Normal thought process present Thought content: Yes Normal thought content present Insight: Good insight present (Psych) Judgement: Good judgement present (Psych) Results Labs Labs: Short CBC 03/06/25 Range/Units 17:24 WBC 5.4 (4.5-10.0) K/mm3 Hgb 12.0 (12.0-15.0) g/dL Hct 37.6 (37.0-47.0) % Plt Count 202 (150-375) k/mm3 BMP 03/06/25 17:24 Sodium 139 Potassium 3.9 Chloride 107 Carbon Dioxide 25 BUN 24 H Creatinine 0.70 Glucose 92 Calcium 9.4 Liver Function 03/06/25 Range/Units 17:24 Total Bilirubin 0.4 (0.2-1.3) mg/dL AST 37 H (14-36) U/L ALT 21 (6-35) U/L Alkaline Phosphatase 90 (38-126) U/L Albumin 4.0 (3.5-5.1) g/dL Urine 03/06/25 Range/Units 16:48 Urine Color Yellow (Yellow) Urine Appearance Clear (Clear) Urine pH 6.5 (5.0-9.0) Ur Specific [place] 1.011 (1.001-1.035) Urine Protein Negative (Negative) mg/dL Urine Glucose (UA) Negative (Negative) mg/dL Quality VTE Prophylaxis VTE prophylaxis: pharmacologic ordered Assessment and Plan Assessment and plan (1) Recurrent UTI: Code(s): N39.0 - Urinary tract infection, site not specified Status: Acute Assessment and Plan: -ED provider reported that she had a resulted urine culture that was E coli that is only sensitive to IV antibiotics. -the patient was started on ceftriaxone -blood in urine cultures are pending. -urology has been consulted as she is being followed outpatient for frequent UTIs at her drug resistant. -infectious Disease has been consulted as well. -patient has been on multiple p.o. antibiotics -she is afebrile and does not appear septic. -vital signs are stable. (2) Paroxysmal atrial fibrillation with RVR: Code(s): I48.0 - Paroxysmal atrial fibrillation Status: Acute Assessment and Plan: -continue with home medications of Xarelto and sotalol -at this time her rate is controlled and her rhythm is regular. (3) Hyperlipidemia: Qualifiers: Hyperlipidemia type: unspecified Qualified Code(s): E78.5 - Hyperlipidemia, unspecified Code(s): E78.5 - Hyperlipidemia, unspecified Status: Acute Assessment and Plan: -continue with pravastatin (4) Hypothyroidism: Qualifiers: Hypothyroidism type: unspecified Qualified Code(s): E03.9 - Hypothyroidism, unspecified Code(s): E03.9 - Hypothyroidism, unspecified Status: Acute Assessment and Plan: -continue Levothyroid
--- NOTE | 2025-03-06 22:18 | WPCEDHO ---
ED Hand Off Checklist All vitals saved: N - pt is refusing. she is very entitled. only doing what she wants to do. Sent here by [facility] doctor IV Site documented: y All med administrations documented: Y Triage Note Triage Note pt sent in by Dr Thomas pt to be 03/06/25 12:27 treated for UTI. pt has tried many different ntibx. sent in for IV therapy Allergies prednisone Allergy (Unknown, Verified 02/18/25 11:48) Unknown RASH, NAUSEA clavulanic acid (From Augmentin) Allergy (Verified 02/18/25 11:48) Rash Redness and rash to face (patient states she is unsure) Patient has received ampicillin iv September 2022 Family History (Last Reviewed 02/18/25 @ 12:02 by Beatrice Davis [facility]) Father Acute myocardial infarction Heart disease Mother Alcohol abuse Tobacco abuse Cancer Sibling Skin cancer Sibling Breast cancer Grandparent Heart disease Grandparent Heart disease Administered/Completed Medications Discontinued Medications Ceftriaxone Sodium 1 gm/ (Sodium Chloride) 50 mls @ 100 mls/hr IVPB ONCE STA Stop: 03/06/25 17:43 Last Infusion: 03/06/25 17:59 Dose: Infused Documented By: Admin: 03/06/25 17:32 Dose: 100 mls/hr Documented By: KJT Interventions/Assessments IV / Saline Lock, Insert Start: 03/06/25 12:27 Freq: Status: Active Protocol: Document 03/06/25 17:32 KJT (Rec: 03/06/25 17:33 KJT [id number]) IV Assessment Peripheral Access Left Forearm IV Catheter Access Initiated IV Insertion Date 03/06/25 IV Insertion Time 17:33 Catheter Gauge 20 IV Site Assessment WNL IV Care and WNL Maintenance PA: Genitourinary Assessment Start: 03/06/25 12:27 Freq: Status: Active Protocol: Document 03/06/25 17:34 KJT (Rec: 03/06/25 17:34 KJT [id number]) Assessment Genitourinary Frequency Symptoms Voiding Method Toilet Last Vital Signs Temperature 98.1 F 03/06/25 17:36 Pulse Rate 72 03/06/25 17:36 Respiratory Rate 17 03/06/25 17:36 Pulse Oximetry 99 03/06/25 17:36 Blood Pressure 138/84 03/06/25 16:49 Blood Pressure Mean 102 03/06/25 16:49 Blood Pressure Position Sitting 03/06/25 12:35 Oxygen Delivery Room Air 03/06/25 12:35 Weight 74 kg 03/06/25 12:35 Last Result - Abnormals Only RBC 3.93 M/mm3 (4.2-5.4) L 03/06/25 17:24 MCHC 31.9 g/dl (32-36) L 03/06/25 17:24 Neut % (Auto) 42.9 % (45.5-73.1) L 03/06/25 17:24 [place] % (Auto) 14.8 % (2.6-8.5) H 03/06/25 17:24 [place] # (Auto) 0.8 K/mm3 (0.1-0.6) H 03/06/25 17:24 BUN 24 mg/dL (7-17) H 03/06/25 17:24 AST 37 U/L (14-36) H 03/06/25 17:24 Leukocyte Esterase Rfl 2+ CLARA/UL (Negative) H 03/06/25 16:48 Urine WBC 21-50 /hpf (0-3) H 03/06/25 16:48 Urine Bacteria 4+ /hpf H 03/06/25 16:48 Most Recent Suicide Severity Rating Suicide Severity Rating NO RISK INDICATED 03/06/25 12:27
[2025-03-06 23:05] VITALS: BMI 29.7
--- NOTE | 2025-03-06 23:06 | ADMGEN ---
This patient, Maria A Patel, was admitted to 3 [facility] Surg Room 320-01. Patient/family oriented to hospital policies and general routines including ID bracelet, bed and alarms, visiting hours, pain management, procedures, bathroom and other care routines, personal items, smoking policy, room service/diet, and visiting hours. Information on how to activate the Rapid Response Team has been discussed. Patient/Family are encouraged to report perceived risks to care and to ask questions if they do not understand what they are told or what they should do.
[2025-03-06 23:56] VITALS: BP 139/66; PULSE 66; RESP 18; TEMP 36.7; O2SAT 94
[2025-03-07 05:30] LABS: Influenza A QL RT-PCR Negative (Negative); Influenza B QL RT-PCR Negative (Negative); RSV RNA, RT-PCR Negative (Negative); SARS-CoV-2 RNA PCR Negative (Negative)
[2025-03-07 05:38] VITALS: BP 153/74; PULSE 70; RESP 18; TEMP 37.2; O2SAT 95
[2025-03-07] MEDS: LEVOTHYROXINE SODIUM 25 MCG TABLET PO (06:56)
--- NOTE | 2025-03-07 07:42 | PM.IMPN2 ---
Assessment and Plan Assessment and Plan (1) Recurrent UTI: Code(s): N39.0 - Urinary tract infection, site not specified Status: Acute Assessment and Plan: Patient has recurrent multidrug resistance UTIs, currently being followed by urology. Recent antibiotics use includes Bactrim, Cipro and Macrobid Recurrent UTI likely due to incomplete bladder emptying, she is unable to perform interittent caths - UA 03/03: Cloudy appearance with trace protein, 3+ blood, positive nitrates, 3+ leukocytes, 3-10 RBC, and moderate bacteria UC grew significantly resistant ecoli requiring IV antibiotics - Repeat 03/06: 2+ leukocytes, 21-50 WBC, 4+ bacteria - UC obtained on 03/07: pending - Blood cultures: pending - previous micro reviewed - started on Rocephin on 03/06 - urology has been consulted as she is being followed outpatient for frequent drug resistant UTIs Recommend checking bladder scans and performing intermittent catheterization if residuals over 200 cc. Consider outpatient urodynamic studies, agree with Infectious Disease consultation. Patient can consider prophylactic weekly dosages of fosfomycin for UTI prophylaxis given she has failed numerous other prophylactic antibiotics with symptomatic urinary tract infections with E coli and a history of C diff - infectious Disease has been consulted as well. (2) Atrial fibrillation: Code(s): I48.91 - Unspecified atrial fibrillation Status: Acute Assessment and Plan: - Current home medication: sotalol 80 mg q12h and xarelto 20 mg daily - Currently in sinus rhythm and remains rate controlled. (3) Hypothyroidism: Qualifiers: Hypothyroidism type: unspecified Qualified Code(s): E03.9 - Hypothyroidism, unspecified Code(s): E03.9 - Hypothyroidism, unspecified Status: Acute Assessment and Plan: -continue Levothyroid Medical Record Review I have reviewed the following patient records and this information was taken into consideration when formulating the assessment and plan.: previous labs Time Spent With Patient Time with patient: 25 - 35 minutes Subjective Date/time seen: 03/07/25 07:42 Interval history: 84 year old female with past medical history atrial fibrillation, hypothyroidism, and hyperlipidemia presents to the hospital for recurrent multidrug resistant UTI. Patient is seen sitting up on the side of the bed. She continues to endorse hypogastric discomfort, pain with urination, and inability to void completely. She has no other complaints denying chest pain, palpitations, shortness of breath, nausea/vomiting. Review of Systems Review of Systems: All systems reviewed & are unremarkable except as noted in HPI and below Exam Narrative: AF HR 76 RR 18 SpO2 95 BP 153/74 General: female in no acute respiratory distress who is nontoxic appearing, sitting up on side of bed. HEENT: Extraocular movement intact. Sclera clear and anicteric. No facial asymmetry. Chest: Lungs are clear to auscultation bilaterally. No wheezes or crackles. CV: Heart was regular rate and rhythm. Abd: Abdomen was soft. Nontender. Nondistended. Positive bowel sounds. Ext: No clubbing, cyanosis, or edema. DP pulses bilaterally. Neuro: Patient is alert and oriented x4. Speech is clear. Objective Data Vital Signs Vital Signs: Vital Signs - 24 hr 03/06/25 12:35 03/06/25 14:30 03/06/25 16:49 Temperature 97.7 F Pulse Rate 77 77 74 Respiratory Rate 16 18 16 Blood Pressure 162/85 H 138/84 Pulse Oximetry 98 98 98 Oxygen Delivery Room Air 03/06/25 17:36 03/06/25 23:32 03/06/25 23:56 Temperature 98.1 F 98.0 F Pulse Rate 72 66 Respiratory Rate 17 18 Blood Pressure 139/66 Pulse Oximetry 99 94 Oxygen Delivery Room Air 03/07/25 05:38 Temperature 98.9 F Pulse Rate 70 Respiratory Rate 18 Blood Pressure 153/74 H Pulse Oximetry 95 Oxygen Delivery Intake/Output Intake/Output: Intake & Output 03/04/25 03/05/25 03/06/25 03/07/25 23:59 23:59 23:59 23:59 Intake Total 50 400 Balance 50 400 Meds/Results Medications: Active Medications Generic Name Dose Route Start Last Admin Trade Name Freq PRN Reason Stop Dose Admin Acetaminophen 650 mg 03/06/25 19:16 Acetaminophen 325 Mg Tablet PO Q4H PRN Mild Pain (1-3) or Fever Cyanocobalamin 1,000 mcg 03/07/25 09:00 Cyanocobalamin 1,000 Mcg Tablet PO QAM [facility] Ceftriaxone Sodium 1 gm/ 50 mls @ 100 mls/hr 03/07/25 18:00 Sodium Chloride IVPB Q24H [facility] Levothyroxine Sodium 25 mcg 03/07/25 06:30 03/07/25 06:56 Levothyroxine Sodium 25 Mcg Tablet PO 25 mcg DAILY@0630 [facility] Administration Ondansetron HCl 4 mg 03/06/25 19:16 Ondansetron Inj 4 Mg/2 Ml Vial IV PUSH Q4H PRN Nausea Pravastatin Sodium 80 mg 03/07/25 09:00 Pravastatin Sodium 20 Mg Tablet PO DAILY [facility] Rivaroxaban 20 mg 03/07/25 17:00 Rivaroxaban 20 Mg Tablet PO DAILY@1700 [facility] Sotalol HCl 80 mg 03/07/25 09:00 Sotalol Hcl 80 Mg Tablet PO Q12HR [facility] Tramadol HCl 50 mg 03/07/25 06:05 Tramadol Hcl (*Crx) 50 Mg Tablet PO QID PRN Pain Rated 4-6 Labs Labs: Laboratory Results - last 24 hr 03/06/25 03/06/25 03/07/25 16:48 17:24 04:47 WBC 5.4 RBC 3.93 L Hgb 12.0 Hct 37.6 MCV 95.7 MCH 30.5 MCHC 31.9 L RDW 13.4 Plt Count 202 MPV 10.4 Immature Gran % (Auto) 0.2 Neut % (Auto) 42.9 L Lymph % (Auto) 38.8 [place] % (Auto) 14.8 H Eos % (Auto) 2.6 Baso % (Auto) 0.7 Lymph # (Auto) 2.09 [place] # (Auto) 0.8 H Eos # (Auto) 0.1 Baso # (Auto) 0.0 Abs Immat Gran (auto) 0.01 Absolute Neuts (auto) 2.3 Absolute Nucleated RBC 0.000 Nucleated RBC % 0.0 Sodium 139 Potassium 3.9 Chloride 107 Carbon Dioxide 25 Anion Gap 7 BUN 24 H Creatinine 0.70 Estim Creat Clear Calc 47 Estimated GFR > 60 Glucose 92 Calcium 9.4 Total Bilirubin 0.4 AST 37 H ALT 21 Alkaline Phosphatase 90 Total Protein 7.3 Albumin 4.0 Urine Color Yellow Urine Appearance Clear Urine pH 6.5 Ur Specific [place] 1.011 Urine Protein Negative Urine Glucose (UA) Negative Urine Ketones Negative Ur Blood (Man) Trace Urine Nitrate Negative Urine Bilirubin Negative Urine Urobilinogen 0.2 Leukocyte Esterase Rfl 2+ H Urine RBC 0-2 Urine WBC 21-50 H Ur Squamous Epith Cells Occasional Urine Bacteria 4+ H Urine Casts 0-2 Influenza A (RT-PCR) Negative Influenza B (RT-PCR) Negative RSV (RT-PCR) Negative SARS-CoV-2 RNA (RT-PCR) Negative Quality VTE Prophylaxis VTE prophylaxis: pharmacologic ordered
[2025-03-07 08:26] LABS: Hematocrit 37.8 % (37.0-47.0); Hemoglobin 12.1 g/dL (12.0-15.0); Mean Corpuscular HGB Conc 32.0 g/dl (32-36); Mean Corpuscular Hemoglobin 29.8 pg (26-34); Mean Corpuscular Volume 93.1 fl (80-100); Platelet Count Result 189 k/mm3 (150-375); Red Blood Count 4.06 M/mm3 (4.2-5.4); White Blood Count 5.2 K/mm3 (4.5-10.0)
[2025-03-07 08:54] LABS: Alanine Aminotransferase 21 U/L (6-35); Albumin Level 4.0 g/dL (3.5-5.1); Alkaline Phosphatase 84 U/L (38-126); Anion Gap 6 mmol/L (4-12); Aspartate Amino Transferase 34 U/L (14-36); Bilirubin,Total 0.5 mg/dL (0.2-1.3); Blood Urea Nitrogen 21 mg/dL (7-17); Calcium 9.4 mg/dL (8.4-10.2); Carbon Dioxide 30 mmol/L (22-30); Chloride 105 mmol/L (98-107); Estimated CRCL calculation 43 ml/min; Estimated Glomerular Filt Rate > 60; Glucose 99 mg/dL (65-110); Potassium 3.9 mmol/L (3.4-5.0); Sodium 141 mmol/L (137-145); Total Protein 7.2 g/dL (6.3-8.2)
[2025-03-07 10:03] VITALS: PULSE 76
[2025-03-07] MEDS: SOTALOL HCL 80 MG TABLET PO ×2 (10:03→21:26)
[2025-03-07] MEDS: PRAVASTATIN SODIUM 20 MG TABLET 80 MG PO (10:03)
[2025-03-07] MEDS: CYANOCOBALAMIN 1,000 MCG TABLET 1000 MCG PO (10:03)
--- NOTE | 2025-03-07 11:06 | P.CONUR_ITS ---
Assessment and Plan Assessment and plan (1) Urinary tract infection, E. coli: Code(s): N39.0 - Urinary tract infection, site not specified; B96.20 - Unspecified Escherichia coli [E. coli] as the cause of diseases classified elsewhere Status: Acute Assessment and Plan: patient has recurrent urinary tract infections likely due to incomplete bladder emptying. She is on vaginal estradiol, cranberry extract and methenamine prophylaxis. She is unable to perform intermittent catheterization. She was most recently managed 6 months ago with weekly instillations of intravesical gentamicin. Recommend checking bladder scans and performing intermittent catheterization if residuals over 200 cc. Consider outpatient urodynamic studies, agree with Infectious Disease consultation. Patient can consider prophylactic weekly dosages of fosfomycin for UTI prophylaxis given she has failed numerous other prophylactic antibiotics with symptomatic urinary tract infections with E coli and a history of C diff Urology Consult Note HPI Date Seen: 03/07/25 Requesting Physician: Jon Blum MD Primary Care Provider: Joel Thomas MD Consult Narrative Narrative: Maria A Patel is a 84 year old female who is an established patient of 1 of my colleagues Sherley Churhc MD, who has suffered from chronic urinary tract infections she is undergone prior significant workup and evaluation by numerous urologists 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 She was most recently seen about 6 months ago where she was placed on weekly gentamicin bladder irrigations. She was found to have incomplete bladder emptying and was advised to perform intermittent catheterization to help drain residual urine but she is unable to perform this. She had previously been on prophylactic antibiotics with nitrofurantoin, she has been given treatment dose antibiotics with nitrofurantoin, Bactrim and subsequently Cipro her most recent culture is intermediate or resistant to those antibiotics. Her most recent culture from 03/03 shows an E coli pathogen sensitive to 3rd generation cephalosporins. Patient has a history of C diff x2. Her ongoing symptoms consist of dysuria and suprapubic pain she denies flank pain back pain nausea or vomiting. She has a normal white count in his afebrile. She denies gross hematuria or pneumaturia. She uses vaginal estradiol cream and cranberry extract, she also is on methenamine prophylaxis Review of Systems 2 Constitutional: Constitutional: Reports no additional constitutional complaints Eyes: Eyes: Reports no additional eye complaints Respiratory: Respiratory: Reports no additional respiratory complaints Gastrointestinal: Gastrointestinal: Reports no additional gastrointestinal complaints Genitourinary: Genitourinary: Reports as per HPI Musculoskeletal: Musculoskeletal: Reports no additional musculoskeletal complaints Integumentary/Breasts: Skin/Breast: Reports system reviewed and no additional complaints, except as docu Neurologic: Reports system reviewed and no additional complaints, except as documented Psychiatric: Psychiatric: Reports no additional psychiatric complaints [facility] Past Medical History Medical History Encounter for routine adult health examination with abnormal findings BMI 27.0-27.9,adult C. 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 Claustrophobia Alopecia Macular degeneration Foreign body in ear Vitamin D deficiency, unspecified Vitamin B deficiency Hyperlipidemia High risk medication use Lumbar spondylosis Confusion Diverticulitis Colitis Recurrent UTI (urinary tract infection) Hypothyroidism BMI 28.0-28.9,adult Interstitial cystitis (chronic) with hematuria Atrial fibrillation with rapid ventricular response Hematuria COVID-30 March 2021 Persistent cough Impacted cerumen of both ears Osteoporosis Cataract, right eye Screen for colon cancer BMI 29.0-29.9,adult UTI (urinary tract infection) Hyperlipidemia Screening for thyroid disorder Vitamin D deficiency BMI 30.0-30.9,adult Screening for breast cancer ETD (eustachian tube dysfunction) Perforation of right tympanic membrane GERD (gastroesophageal reflux disease) Otitis media Osteoarthritis of right knee Surgical History Surgical History (Updated 03/06/25 @ 20:14 by Mitra Benson APRN) H/O: hysterectomy History of tonsillectomy and adenoidectomy History of cataract extraction History of back surgery History of bladder surgery Family History Family History Father Acute myocardial infarction Heart disease Mother Alcohol abuse Tobacco abuse Cancer Sibling Skin cancer Sibling Breast cancer Grandparent Heart disease Grandparent Heart disease Social History Social History (Updated 03/06/25 @ 20:18 by Mitra Benson APRN) Social History: patient is a she has two kids. Her daughter Nisa is her surrogate. She wishes to be DNR. 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 Instructions: Need dose verification Bio- Immunozyme [facility] 03/24/24 02/18/25 Hi story Held on 03/07/25. Instructions: Need dose verification BioMega- 1000 [facility] 03/24/24 02/18/25 Hi story Held on 03/07/25. Instructions: Need dose verification Reacted Magnesium [facility] 03/24/24 02/18/25 Hi story Held on 03/07/25. Instructions: Need dose verification Thiamine [facility] 03/24/24 02/18/25 Hi story Held on 03/07/25. Instructions: Need dose verification Vitamin D 5,000 units [facility] DAILY 03/07/25 History vitamins A,C,L-emaw-wybdcb 2,148 2 tablet PO BID 03/2403/07/25 History mcg-113 mg-45 mg-17.4 mg tablet (PreserVision AREDS) Held on 03/07/25. Instructions: Need dose verification estradiol 0.01% (0.1 mg/gram) 1 g vaginal 2XW 03/25/24 03/07/25 History vaginal cream levothyroxine 25 mcg tablet 25 mcg PO DAILY@0630 1 mon th #30 08/31/24 03/07/25 Rx tabs KappArest [facility] 10/08/24 02/18/25 Hi story Held on 03/07/25. Instructions: Need dose verification METHENAMINE HIPPUTATE 1 g [facility] 10/08/24 5 History Held on 03/07/25. Instructions: Need dose verification Theracran One [facility] 10/08/24 02/18/25 Hi story Held on 03/07/25. Instructions: Need dose verification Ultimate Dodie(Probiotic) [facility] 10/08/24 02/18/25 Hi story Held on 03/07/25. Instructions: Need dose verification rivaroxaban 20 mg tablet (Xarelto) 20 mg PO DAILY #90 tabs 10/08/24 03/07/25 Rx sotalol 80 mg tablet 80 mg PO Q12HR #90 tabs 09/1103/07/25 Rx pravastatin 80 mg tablet 80 mg PO DAILY #90 tabs 12/1103/07/25 Rx tramadol 50 mg tablet 50 mg PO QID PRN pain #20 ta bs 03/03/25 03/07/25 Rx Allergies Allergy/AdvReac Type Severity Reaction Status Date / Time prednisone Allergy Unknown Unknown Verified 03/06/25 23:18 clavulanic acid (From Allergy Rash Verified 03/06/25 23:18 Augmentin) Vital Signs Vital Signs - 24 hr 03/06/25 12:35 03/06/25 14:30 03/06/25 16:49 Temperature 36.5 C Pulse Rate 77 77 74 Respiratory Rate 16 18 16 Blood Pressure 162/85 H 138/84 Pulse Oximetry 98 98 98 Oxygen Delivery Room Air 03/06/25 17:36 03/06/25 23:32 03/06/25 23:56 Temperature 36.7 C 36.7 C Pulse Rate 72 66 Respiratory Rate 17 18 Blood Pressure 139/66 Pulse Oximetry 99 94 Oxygen Delivery Room Air 03/07/25 05:38 03/07/25 07:50 03/07/25 10:03 Temperature 37.2 C Pulse Rate 70 76 Respiratory Rate 18 Blood Pressure 153/74 H Pulse Oximetry 95 Oxygen Delivery Room Air Exam 2 Const: General: comfortable and no acute distress HENMT: Mouth: Yes moist mucous membranes abnormal Eyes: Sclera: sclerae normal Neck: Neck: supple Resp: Effort & Inspection: normal respiratory effort Cardio: Rate: regular rate GI: GI Palp: Yes Soft to palpation, No Tenderness to palpation present (GI) and No Guarding due to palpation present (GI) : Bimanual exam- vagina & uterus: bladder normal to palpation Results Labs 03/07/25 08:19 03/07/25 08:19 Labs: Short CBC 03/06/25 03/07/25 Range/Units 17:24 08:19 WBC 5.4 5.2 (4.5-10.0) K/mm3 Hgb 12.0 12.1 (12.0-15.0) g/dL Hct 37.6 37.8 (37.0-47.0) % Plt Count 202 189 (150-375) k/mm3 BMP 03/06/25 03/07/25 17:24 08:19 Sodium 139 141 Potassium 3.9 3.9 Chloride 107 105 Carbon Dioxide 25 30 BUN 24 H 21 H Creatinine 0.70 0.77 Glucose 92 99 Calcium 9.4 9.4 Liver Function 03/06/25 03/07/25 Range/Units 17:24 08:19 Total Bilirubin 0.4 0.5 (0.2-1.3) mg/dL AST 37 H 34 (14-36) U/L ALT 21 21 (6-35) U/L Alkaline Phosphatase 90 84 (38-126) U/L Albumin 4.0 4.0 (3.5-5.1) g/dL Urine 03/06/25 Range/Units 16:48 Urine Color Yellow (Yellow) Urine Appearance Clear (Clear) Urine pH 6.5 (5.0-9.0) Ur Specific [place] 1.011 (1.001-1.035) Urine Protein Negative (Negative) mg/dL Urine Glucose (UA) Negative (Negative) mg/dL
[2025-03-07] MEDS: traMADol HCL (*CRX) 50 MG TABLET PO (11:40)
[2025-03-07 14:00] VITALS: BP 135/74; PULSE 60; RESP 18; TEMP 36.8; O2SAT 99
[2025-03-07] MEDS: RIVAROXABAN 20 MG TABLET PO (16:27)
[2025-03-07] MEDS: cefTRIAXone 1 GM in SODIUM CHLORIDE 0.9% IV 50 ML 100 ML IVPB (17:11)
[2025-03-07 21:23] VITALS: BP 136/70; PULSE 62; RESP 12; TEMP 36.4; O2SAT 98
[2025-03-07 21:26] VITALS: PULSE 56
[2025-03-07] MEDS: MELATONIN 3 MG TABLET PO (21:28)
--- NOTE | 2025-03-08 02:19 | PC.NURSE ---
Patient has history of urinary retention which causes repetitive UTI infections. Per notes, patient was bladder scanned before urinating with 354 ml urine in bladder. Post void bladder scanned total 129 ml remained in bladder. Patient vital signs stable without complaints of bladder or pain with palpation of abdomen. Will continue to monitor patient progress.
[2025-03-08 04:37] VITALS: BP 129/59; PULSE 64; RESP 12; TEMP 35.6; O2SAT 96
[2025-03-08] MEDS: LEVOTHYROXINE SODIUM 25 MCG TABLET PO (05:44)
[2025-03-08 05:57] VITALS: BP 129/59; PULSE 64; RESP 12; TEMP 35.6; O2SAT 96
[2025-03-08 06:42] LABS: Hematocrit 34.3 % (37.0-47.0); Hemoglobin 10.8 g/dL (12.0-15.0); Mean Corpuscular HGB Conc 31.5 g/dl (32-36); Mean Corpuscular Hemoglobin 29.8 pg (26-34); Mean Corpuscular Volume 94.8 fl (80-100); Platelet Count Result 157 k/mm3 (150-375); Red Blood Count 3.62 M/mm3 (4.2-5.4); White Blood Count 4.2 K/mm3 (4.5-10.0)
[2025-03-08 07:04] LABS: Alanine Aminotransferase 19 U/L (6-35); Albumin Level 3.4 g/dL (3.5-5.1); Alkaline Phosphatase 74 U/L (38-126); Anion Gap 5 mmol/L (4-12); Aspartate Amino Transferase 30 U/L (14-36); Bilirubin,Total 0.5 mg/dL (0.2-1.3); Blood Urea Nitrogen 19 mg/dL (7-17); Calcium 8.9 mg/dL (8.4-10.2); Carbon Dioxide 27 mmol/L (22-30); Chloride 105 mmol/L (98-107); Estimated CRCL calculation 45 ml/min; Estimated Glomerular Filt Rate > 60; Glucose 135 mg/dL (65-110); Potassium 3.5 mmol/L (3.4-5.0); Sodium 137 mmol/L (137-145); Total Protein 6.4 g/dL (6.3-8.2)
[2025-03-08 07:49] VITALS: PULSE 90
[2025-03-08] MEDS: SOTALOL HCL 80 MG TABLET PO ×2 (07:49→20:48)
[2025-03-08] MEDS: CYANOCOBALAMIN 1,000 MCG TABLET 1000 MCG PO (07:49)
[2025-03-08] MEDS: PRAVASTATIN SODIUM 20 MG TABLET 80 MG PO (07:49)
--- NOTE | 2025-03-08 08:02 | P.PNIM_ITS ---
Assessment and Plan Assessment and Plan (1) Recurrent UTI: Code(s): N39.0 - Urinary tract infection, site not specified Status: Acute Assessment and Plan: Patient has recurrent multidrug resistance UTIs, currently being followed by urology. Recent antibiotics use includes Bactrim, Cipro and Macrobid Recurrent UTI likely due to incomplete bladder emptying, she is unable to perform interittent caths - UA 03/03: Cloudy appearance with trace protein, 3+ blood, positive nitrates, 3+ leukocytes, 3-10 RBC, and moderate bacteria UC grew significantly resistant Ecoli requiring IV antibiotics - Repeat 03/06: 2+ leukocytes, 21-50 WBC, 4+ bacteria. UC obtained on 03/07: Ecoli with sensitivities pending - Blood cultures: pending - previous micro reviewed - started on Rocephin on 03/06 - urology has been consulted as she is being followed outpatient for frequent drug resistant UTIs Recommend checking bladder scans and performing intermittent catheterization if residuals over 200 cc. Consider outpatient urodynamic studies, agree with Infectious Disease consultation. Patient can consider prophylactic weekly dosages of fosfomycin for UTI prophylaxis given she has failed numerous other prophylactic antibiotics with symptomatic urinary tract infections with E coli and a history of C diff - infectious Disease has been consulted as well. Continue empiric IV antibiotics pending culture. Awaiting ID recommendations. (2) Atrial fibrillation: Code(s): I48.91 - Unspecified atrial fibrillation Status: Acute Assessment and Plan: - Current home medication: sotalol 80 mg q12h and xarelto 20 mg daily - Currently in sinus rhythm and remains rate controlled. (3) Hypothyroidism: Qualifiers: Hypothyroidism type: unspecified Qualified Code(s): E03.9 - Hypothyroidism, unspecified Code(s): E03.9 - Hypothyroidism, unspecified Status: Acute Assessment and Plan: -continue Levothyroid Medical Record Review I have reviewed the following patient records and this information was taken into consideration when formulating the assessment and plan.: previous labs Time Spent With Patient Time with patient: 25 - 35 minutes Subjective Date/time seen: 03/08/25 08:02 Interval history: 84 year old female with past medical history atrial fibrillation, hypothyroidism, and hyperlipidemia presents to the hospital for recurrent multidrug resistant UTI. Patient is pleasant sitting up comfortably on the side of the bed. She had no acute events overnight. Patient endorsing slight bloating and discomfort over the bladder. She denies any nausea/vomiting and is tolerating a diet. She continues to have bowel movements. She denies any other UTI like symptoms. Patient has no other complaints denying chest pain, shortness a breath, palpitations. Review of Systems Review of Systems: All systems reviewed & are unremarkable except as noted in HPI and below Exam Narrative: AF HR 90 RR 12 SpO2 96 BP 129/59 General: female in no acute respiratory distress who is nontoxic appearing, sitting up on side of bed. HEENT: Extraocular movement intact. Sclera clear and anicteric. No facial asymmetry. Chest: Lungs are clear to auscultation bilaterally. No wheezes or crackles. CV: Heart was regular rate and rhythm. Abd: Abdomen was soft. Nontender. Nondistended. Positive bowel sounds. Ext: No clubbing, cyanosis, or edema. DP pulses bilaterally. Neuro: Patient is alert. Speech is clear. Objective Data Vital Signs Vital Signs: Vital Signs - 24 hr 03/07/25 10:03 03/07/25 14:00 03/07/25 21:23 Temperature 98.3 F 97.5 F L Pulse Rate 76 60 62 Respiratory Rate 18 12 Blood Pressure 135/74 136/70 Pulse Oximetry 99 98 Oxygen Delivery 03/07/25 21:26 03/07/25 21:31 03/08/25 04:37 Temperature 96.1 F L Pulse Rate 56 L 64 Respiratory Rate 12 Blood Pressure 129/59 L Pulse Oximetry 96 Oxygen Delivery Room Air 03/08/25 05:57 03/08/25 07:49 Temperature 96.1 F L Pulse Rate 64 90 Respiratory Rate 12 Blood Pressure 129/59 L Pulse Oximetry 96 Oxygen Delivery Intake/Output Intake/Output: Intake & Output 03/05/25 03/06/25 03/07/25 03/08/25 23:59 23:59 23:59 23:59 Intake Total 50 1170 0 Balance 50 1170 0 Meds/Results Medications: Active Medications Generic Name Dose Route Start Last Admin Trade Name Freq PRN Reason Stop Dose Admin Acetaminophen 650 mg 03/06/25 19:16 Acetaminophen 325 Mg Tablet PO Q4H PRN Mild Pain (1-3) or Fever Cyanocobalamin 1,000 mcg 03/07/25 09:00 03/08/25 07:49 Cyanocobalamin 1,000 Mcg Tablet PO 1,000 mcg QAM HUSSEIN Administration Ceftriaxone Sodium 1 gm/ 50 mls @ 100 mls/hr 03/07/25 18:00 03/07/25 17:41 Sodium Chloride IVPB Infused Q24H HUSSEIN Infusion Levothyroxine Sodium 25 mcg 03/07/25 06:30 03/08/25 05:44 Levothyroxine Sodium 25 Mcg Tablet PO 25 mcg DAILY@0630 HUSSEIN Administration Melatonin 3 mg 03/07/25 21:00 03/07/25 21:28 Melatonin 3 Mg Tablet PO 3 mg HS HUSSEIN Administration Ondansetron HCl 4 mg 03/06/25 19:16 Ondansetron Inj 4 Mg/2 Ml Vial IV PUSH Q4H PRN Nausea Pravastatin Sodium 80 mg 03/07/25 09:00 03/08/25 07:49 Pravastatin Sodium 20 Mg Tablet PO 80 mg DAILY HUSSEIN Administration Rivaroxaban 20 mg 03/07/25 17:00 03/07/25 16:27 Rivaroxaban 20 Mg Tablet PO 20 mg DAILY@1700 [facility] Administration Sotalol HCl 80 mg 03/07/25 09:00 03/08/25 07:49 Sotalol Hcl 80 Mg Tablet PO 80 mg Q12HR HUSSEIN Administration Tramadol HCl 50 mg 03/07/25 06:05 03/07/25 11:40 Tramadol Hcl (*Crx) 50 Mg Tablet PO 50 mg QID PRN Administration Pain Rated 4-6 Labs Labs: Laboratory Results - last 24 hr 03/07/25 03/08/25 08:19 06:21 WBC 5.2 4.2 L RBC 4.06 L 3.62 L Hgb 12.1 10.8 L Hct 37.8 34.3 L MCV 93.1 94.8 MCH 29.8 29.8 MCHC 32.0 31.5 L RDW 13.3 13.5 Plt Count 189 157 MPV 10.0 10.2 Sodium 141 137 Potassium 3.9 3.5 Chloride 105 105 Carbon Dioxide 30 27 Anion Gap 6 5 BUN 21 H 19 H Creatinine 0.77 0.73 Estim Creat Clear Calc 43 45 Estimated GFR > 60 > 60 Glucose 99 135 H Calcium 9.4 8.9 Total Bilirubin 0.5 0.5 AST 34 30 ALT 21 19 Alkaline Phosphatase 84 74 Total Protein 7.2 6.4 Albumin 4.0 3.4 L Quality VTE Prophylaxis VTE prophylaxis: pharmacologic ordered
[2025-03-08] MEDS: traMADol HCL (*CRX) 50 MG TABLET PO (11:16)
[2025-03-08 14:00] VITALS: BP 129/72; PULSE 59; RESP 14; TEMP 36.3; O2SAT 97
[2025-03-08] MEDS: RIVAROXABAN 20 MG TABLET PO (16:54)
[2025-03-08] MEDS: cefTRIAXone 1 GM in SODIUM CHLORIDE 0.9% IV 50 ML 100 ML IVPB (17:34)
[2025-03-08 20:21] VITALS: BP 145/62; PULSE 60; RESP 17; TEMP 36.6; O2SAT 98
[2025-03-08 20:48] VITALS: PULSE 60
[2025-03-08] MEDS: MELATONIN 5 MG TABLET PO (22:18)
[2025-03-09] MEDS: LEVOTHYROXINE SODIUM 25 MCG TABLET PO (05:30)
[2025-03-09 06:00] VITALS: BP 139/54; PULSE 63; RESP 17; TEMP 36.3; O2SAT 95
[2025-03-09 06:23] LABS: Hematocrit 35.0 % (37.0-47.0); Hemoglobin 11.1 g/dL (12.0-15.0); Mean Corpuscular HGB Conc 31.7 g/dl (32-36); Mean Corpuscular Hemoglobin 30.1 pg (26-34); Mean Corpuscular Volume 94.9 fl (80-100); Platelet Count Result 179 k/mm3 (150-375); Red Blood Count 3.69 M/mm3 (4.2-5.4); White Blood Count 4.2 K/mm3 (4.5-10.0)
[2025-03-09 06:37] LABS: Alanine Aminotransferase 18 U/L (6-35); Albumin Level 3.5 g/dL (3.5-5.1); Alkaline Phosphatase 72 U/L (38-126); Anion Gap 5 mmol/L (4-12); Aspartate Amino Transferase 30 U/L (14-36); Bilirubin,Total 0.6 mg/dL (0.2-1.3); Blood Urea Nitrogen 19 mg/dL (7-17); Calcium 8.8 mg/dL (8.4-10.2); Carbon Dioxide 28 mmol/L (22-30); Chloride 106 mmol/L (98-107); Estimated CRCL calculation 42 ml/min; Estimated Glomerular Filt Rate > 60; Glucose 89 mg/dL (65-110); Potassium 4.1 mmol/L (3.4-5.0); Sodium 139 mmol/L (137-145); Total Protein 6.4 g/dL (6.3-8.2)
[2025-03-09] MEDS: PRAVASTATIN SODIUM 20 MG TABLET 80 MG PO (08:48)
[2025-03-09] MEDS: CYANOCOBALAMIN 1,000 MCG TABLET 1000 MCG PO (08:48)
[2025-03-09 08:49] VITALS: PULSE 80
[2025-03-09] MEDS: SOTALOL HCL 80 MG TABLET PO ×2 (08:49→21:52)
--- NOTE | 2025-03-09 08:51 | PM.IMPN2 ---
Assessment and Plan Assessment and Plan (1) Recurrent UTI: Code(s): N39.0 - Urinary tract infection, site not specified Status: Acute Assessment and Plan: Patient has recurrent multidrug resistance UTIs, currently being followed by urology. Recent antibiotics use includes Bactrim, Cipro and Macrobid Recurrent UTI likely due to incomplete bladder emptying, she is unable to perform intermittent caths - UA 03/03: Cloudy appearance with trace protein, 3+ blood, positive nitrates, 3+ leukocytes, 3-10 RBC, and moderate bacteria UC grew significantly resistant Ecoli requiring IV antibiotics - Repeat 03/06: 2+ leukocytes, 21-50 WBC, 4+ bacteria. UC obtained on 03/07: Ecoli with resistance - Blood cultures: pending - previous micro reviewed - started on Rocephin on 03/06 - urology has been consulted as she is being followed outpatient for frequent drug resistant UTIs Recommend checking bladder scans and performing intermittent catheterization if residuals over 200 cc. Consider outpatient urodynamic studies, agree with Infectious Disease consultation. Patient can consider prophylactic weekly dosages of fosfomycin for UTI prophylaxis given she has failed numerous other prophylactic antibiotics with symptomatic urinary tract infections with E coli and a history of C diff - infectious Disease has been consulted as well. Patient required a straight cath x1 for post void residual > 200. Continue empiric IV antibiotics pending culture. Awaiting ID recommendations. (2) Atrial fibrillation: Code(s): I48.91 - Unspecified atrial fibrillation Status: Acute Assessment and Plan: - Current home medication: sotalol 80 mg q12h and xarelto 20 mg daily - Currently in sinus rhythm and remains rate controlled. (3) Hypothyroidism: Qualifiers: Hypothyroidism type: unspecified Qualified Code(s): E03.9 - Hypothyroidism, unspecified Code(s): E03.9 - Hypothyroidism, unspecified Status: Acute Assessment and Plan: -continue Levothyroid Medical Record Review I have reviewed the following patient records and this information was taken into consideration when formulating the assessment and plan.: previous labs Time Spent With Patient Time with patient: 25 - 35 minutes Subjective Date/time seen: 03/09/25 08:51 Interval history: 84 year old female with past medical history atrial fibrillation, hypothyroidism, and hyperlipidemia presents to the hospital for recurrent multidrug resistant UTI. Patient is pleasant sitting up on side of bed. She continues to endorse bloating and mild discomfort over the bladder. She denies any pain with urination, burning or hematuria. She has no other complaints denying chest pain, palpitations, shortness of breath, nausea/vomiting. Review of Systems Review of Systems: All systems reviewed & are unremarkable except as noted in HPI and below Exam Narrative: AF HR 63 RR 17 SpO2 95 BP 139/54 General: female in no acute respiratory distress who is nontoxic appearing, sitting up on side of bed. HEENT: Extraocular movement intact. Sclera clear and anicteric. No facial asymmetry. Chest: Lungs are clear to auscultation bilaterally. No wheezes or crackles. CV: Heart was regular rate and rhythm. Abd: Abdomen was soft. Nontender. Nondistended. Positive bowel sounds. Objective Data Vital Signs Vital Signs: Vital Signs - 24 hr 03/08/25 14:00 03/08/25 20:21 03/08/25 20:48 Temperature 97.3 F L 98 F Pulse Rate 59 L 60 60 Respiratory Rate 14 17 Blood Pressure 129/72 145/62 H Pulse Oximetry 97 98 Oxygen Delivery 03/08/25 20:55 03/09/25 06:00 03/09/25 08:49 Temperature 97.4 F L Pulse Rate 63 80 Respiratory Rate 17 Blood Pressure 139/54 L Pulse Oximetry 95 Oxygen Delivery Room Air Intake/Output Intake/Output: Intake & Output 03/06/25 03/07/25 03/08/25 03/09/25 23:59 23:59 23:59 23:59 Intake Total 50 1170 1280 480 Balance 50 1170 1280 480 Meds/Results Medications: Active Medications Generic Name Dose Route Start Last Admin Trade Name Tara PRN Reason Stop Dose Admin Acetaminophen 650 mg 03/06/25 19:16 Acetaminophen 325 Mg Tablet PO Q4H PRN Mild Pain (1-3) or Fever Cyanocobalamin 1,000 mcg 03/07/25 09:00 03/09/25 08:48 Cyanocobalamin 1,000 Mcg Tablet PO 1,000 mcg QAM HUSSEIN Administration Ceftriaxone Sodium 1 gm/ 50 mls @ 100 mls/hr 03/07/25 18:00 03/08/25 18:04 Sodium Chloride IVPB Infused Q24H HUSSEIN Infusion Levothyroxine Sodium 25 mcg 03/07/25 06:30 03/09/25 05:30 Levothyroxine Sodium 25 Mcg Tablet PO 25 mcg DAILY@0630 HUSSEIN Administration Melatonin 5 mg 03/08/25 21:51 03/08/25 22:18 Melatonin 5 Mg Tablet PO 5 mg HS PRN Administration insomnia Ondansetron HCl 4 mg 03/06/25 19:16 Ondansetron Inj 4 Mg/2 Ml Vial IV PUSH Q4H PRN Nausea Pravastatin Sodium 80 mg 03/07/25 09:00 03/09/25 08:48 Pravastatin Sodium 20 Mg Tablet PO 80 mg DAILY HUSSEIN Administration Rivaroxaban 20 mg 03/07/25 17:00 03/08/25 16:54 Rivaroxaban 20 Mg Tablet PO 20 mg DAILY@1700 [facility] Administration Sotalol HCl 80 mg 03/07/25 09:00 03/09/25 08:49 Sotalol Hcl 80 Mg Tablet PO 80 mg Q12HR HUSSEIN Administration Tramadol HCl 50 mg 03/07/25 06:05 03/08/25 11:16 Tramadol Hcl (*Crx) 50 Mg Tablet PO 50 mg QID PRN Administration Pain Rated 4-6 Labs Labs: Laboratory Results - last 24 hr 03/09/25 05:34 WBC 4.2 L RBC 3.69 L Hgb 11.1 L Hct 35.0 L MCV 94.9 MCH 30.1 MCHC 31.7 L RDW 13.5 Plt Count 179 MPV 10.6 H Sodium 139 Potassium 4.1 Chloride 106 Carbon Dioxide 28 Anion Gap 5 BUN 19 H Creatinine 0.78 Estim Creat Clear Calc 42 Estimated GFR > 60 Glucose 89 Calcium 8.8 Total Bilirubin 0.6 AST 30 ALT 18 Alkaline Phosphatase 72 Total Protein 6.4 Albumin 3.5 Quality VTE Prophylaxis VTE prophylaxis: pharmacologic ordered
--- NOTE | 2025-03-09 12:56 | P.PNUR_ITS ---
Progress Note: A&P Assessment and Plan (1) Cystitis: Code(s): N30.90 - Cystitis, unspecified without hematuria Status: Acute Plan 84yF with acute on chronic cystitis - Recommend culture-directed antibiotics for her E coli UTI - Continue vaginal estradiol, cranberry extract and methenamine prophylaxis. She is unable to perform intermittent catheterization at home. - Recommend checking bladder scans and performing intermittent catheterization if residuals over 200 cc. Consider outpatient urodynamic studies, agree with Infectious Disease consultation. Patient can consider prophylactic weekly dosages of fosfomycin for UTI prophylaxis given she has failed numerous other prophylactic antibiotics with symptomatic urinary tract infections with E coli and a history of C diff - Patient is scheduled for outpatient follow-up with urology in March 2025 - Urology will follow peripherally at this time, please notify our team if questions/concerns Subjective Subjective Date/Time Seen: 03/09/25 12:56 Interval history: NAEO. Exam Narrative: General: Alert, no acute distress Head: Normocephalic, atraumatic Eyes: Extraocular movements intact Neck: No JVD, trachea midline Respiratory: Symmetric chest rise, nonlabored breathing on room air CV: Normal rate, adequate peripheral perfusion Abdomen: Soft, nontender, nondistended Skin: Warm/dry Extremities: No peripheral edema, no cyanosis Neuro: No focal deficits Psych: Answers questions appropriately, appropriate mood Objective Data Vital Signs Vital Signs: Vital Signs - 24 hr 03/08/25 14:00 03/08/25 20:21 03/08/25 20:48 Temperature 36.3 C L 36.6 C Pulse Rate 59 L 60 60 Respiratory Rate 14 17 Blood Pressure 129/72 145/62 H Pulse Oximetry 97 98 Oxygen Delivery 03/08/25 20:55 03/09/25 06:00 03/09/25 08:49 Temperature 36.3 C L Pulse Rate 63 80 Respiratory Rate 17 Blood Pressure 139/54 L Pulse Oximetry 95 Oxygen Delivery Room Air 03/09/25 08:49 Temperature Pulse Rate Respiratory Rate Blood Pressure Pulse Oximetry Oxygen Delivery Room Air Intake/Output Intake/Output: Intake & Output 03/06/25 03/07/25 03/08/25 03/09/25 23:59 23:59 23:59 23:59 Intake Total 50 1170 1280 480 Balance 50 1170 1280 480 Meds/Results Medications: Active Medications Generic Name Dose Route Start Last Admin Trade Name Theronq PRN Reason Stop Dose Admin Acetaminophen 650 mg 03/06/25 19:16 Acetaminophen 325 Mg Tablet PO Q4H PRN Mild Pain (1-3) or Fever Cyanocobalamin 1,000 mcg 03/07/25 09:00 03/09/25 08:48 Cyanocobalamin 1,000 Mcg Tablet PO 1,000 mcg QAM HUSSEIN Administration Ceftriaxone Sodium 1 gm/ 50 mls @ 100 mls/hr 03/07/25 18:00 03/08/25 18:04 Sodium Chloride IVPB Infused Q24H HUSSEIN Infusion Levothyroxine Sodium 25 mcg 03/07/25 06:30 03/09/25 05:30 Levothyroxine Sodium 25 Mcg Tablet PO 25 mcg DAILY@0630 HUSSEIN Administration Melatonin 5 mg 03/08/25 21:51 03/08/25 22:18 Melatonin 5 Mg Tablet PO 5 mg HS PRN Administration insomnia Ondansetron HCl 4 mg 03/06/25 19:16 Ondansetron Inj 4 Mg/2 Ml Vial IV PUSH Q4H PRN Nausea Pravastatin Sodium 80 mg 03/07/25 09:00 03/09/25 08:48 Pravastatin Sodium 20 Mg Tablet PO 80 mg DAILY HUSSEIN Administration Rivaroxaban 20 mg 03/07/25 17:00 03/08/25 16:54 Rivaroxaban 20 Mg Tablet PO 20 mg DAILY@1700 [facility] Administration Sotalol HCl 80 mg 03/07/25 09:00 03/09/25 08:49 Sotalol Hcl 80 Mg Tablet PO 80 mg Q12HR HUSSEIN Administration Tramadol HCl 50 mg 03/07/25 06:05 03/08/25 11:16 Tramadol Hcl (*Crx) 50 Mg Tablet PO 50 mg QID PRN Administration Pain Rated 4-6 Labs Labs: Laboratory Results - last 24 hr 03/09/25 05:34 WBC 4.2 L RBC 3.69 L Hgb 11.1 L Hct 35.0 L MCV 94.9 MCH 30.1 MCHC 31.7 L RDW 13.5 Plt Count 179 MPV 10.6 H Sodium 139 Potassium 4.1 Chloride 106 Carbon Dioxide 28 Anion Gap 5 BUN 19 H Creatinine 0.78 Estim Creat Clear Calc 42 Estimated GFR > 60 Glucose 89 Calcium 8.8 Total Bilirubin 0.6 AST 30 ALT 18 Alkaline Phosphatase 72 Total Protein 6.4 Albumin 3.5
--- NOTE | 2025-03-09 13:08 | WPDIDCN ---
Assessment and Plan Assessment and plan (1) Cystitis: Code(s): N30.90 - Cystitis, unspecified without hematuria Status: Acute (2) Urinary tract infection, E. coli: Code(s): N39.0 - Urinary tract infection, site not specified; B96.20 - Unspecified Escherichia coli [E. coli] as the cause of diseases classified elsewhere Status: Acute (3) Recurrent UTI: Code(s): N39.0 - Urinary tract infection, site not specified Status: Acute (4) History of Clostridioides difficile colitis: Code(s): Z86.19 - Personal history of other infectious and parasitic diseases Status: Acute Plan Impression: # 03/03 symptomatic UTI involving E coli resistant to oral agents. Despite lack of appropriate treatment for this organism, current urine culture 03/06 now with E coli susceptible to Bactrim, tetracyclines, nitrofurantoin, and cefazolin. # History of incomplete bladder emptying associated with chronic, recurrent symptomatic UTIs. # History of several episodes C difficile colitis. Plan: -- difficult situation and I'm not sure I can offer anything above what has already been suggested by Urology. Strategies to date have come against the complication of incomplete bladder emptying in the setting of patient's inability to perform self catheterization. Failure with traditional daily prophylactic antibiotics as well as methenamine does argue for consideration of weekly 3 gm fosfomycin, times several months, with subsequent re-evaluation for continued need after that time, unless out of pocket cost for this drug is prohibitive. This strategy would have best chance at success if combined with self catheterization. In fact, self catheterization may allow for better success of methenamine and estradiol, alone. -- recommend treating current E coli UTI with at least 5 days of ceftriaxone to be followed by a subsequent 7 days of oral Bactrim double strength twice daily. Weekly Fosfomycin would be added after completing Bactrim and would replace methenamine. Would continue with estradiol, probiotics. Unclear if the addition of cranberry extract to either fosfomycin or methenamine would provide an additional benefit. -- both fosfomycin and methenamine have the added benefit of decreased risk C difficile recurrence. -- thank you for the consult. HPI Data of Consult Date/Time: 03/09/25 13:08 Requesting Physician: Jon Blum MD Primary Care Provider: Joel Thomas MD Consult Narrative Reason for consult: Urinary retention, chronic recurrent UTIs. Narrative: Maria A Patel is a 84 year old female with past medical history as outlined below including several episodes of C difficile colitis. She has a history of incomplete bladder emptying and inability to perform her own self catheterization. This appears to be associated with chronic, recurrent urinary tract infections over several years for which she has been followed by multiple urologists. She states this all began around 5 years ago after having undergone bladder surgery. Despite prior attempts at traditional prophylactic antibiotics for recurrent UTI, gentamicin bladder irrigation, and a current, several-year regimen of daily cranberry extract, methenamine, probiotics, in conjunction with estradiol, she continues with symptomatic UTIs associated with dysuria and suprapubic pain. Recent urinalyses and cultures in response to dysuria and suprapubic discomfort: On 02/18 her urinalysis showed greater than 60 white blood cells and she grew Proteus essentially only resistant to nitrofurantoin. On 02/27 her urinalysis showed greater than 60 white cells with a culture only identifying mixed urogenital lu. On 03/03 her urinalysis showed greater than 60 white cells and urine culture now positive for E coli resistant to quinolones, Bactrim, and cefazolin while intermediate to Augmentin, Unasyn, and nitrofurantoin. Based on the 03/03 culture requiring treatment with intravenous antibiotics she was admitted 03/06 and started on ceftriaxone 03/07. As of today she has received 3 doses. She has been afebrile and with normal white blood cell count. CT of the abdomen showed severe cystitis. Hospital urinalysis with 21-50 white blood cells and growth of what appears to be an Amp-C E coli now sensitive to cefazolin, Bactrim, tetracyclines and nitrofurantoin but resistant to ampicillin and quinolones. Review of Systems Review of Systems: All systems reviewed & are unremarkable except as noted in HPI and below PMFSH Past Medical History Medical History Encounter for routine adult health examination with abnormal findings BMI 27.0-27.9,adult C. 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 Claustrophobia Alopecia Macular degeneration Foreign body in ear Vitamin D deficiency, unspecified Vitamin B deficiency Hyperlipidemia High risk medication use Lumbar spondylosis Confusion Diverticulitis Colitis Recurrent UTI (urinary tract infection) Hypothyroidism BMI 28.0-28.9,adult Interstitial cystitis (chronic) with hematuria Atrial fibrillation with rapid ventricular response Hematuria COVID-30 March 2021 Persistent cough Impacted cerumen of both ears Osteoporosis Cataract, right eye Screen for colon cancer BMI 29.0-29.9,adult UTI (urinary tract infection) Hyperlipidemia Screening for thyroid disorder Vitamin D deficiency BMI 30.0-30.9,adult Screening for breast cancer ETD (eustachian tube dysfunction) Perforation of right tympanic membrane GERD (gastroesophageal reflux disease) Otitis media Osteoarthritis of right knee Surgical History Surgical History (Updated 03/06/25 @ 20:14 by Mitra Benson APRN) H/O: hysterectomy History of tonsillectomy and adenoidectomy History of cataract extraction History of back surgery History of bladder surgery Family History Family History Father Acute myocardial infarction Heart disease Mother Alcohol abuse Tobacco abuse Cancer Sibling Skin cancer Sibling Breast cancer Grandparent Heart disease Grandparent Heart disease Social History Social History (Updated 03/06/25 @ 20:18 by Mitra Benson APRN) Social History: patient is a she has two kids. Her daughter Nisa is her surrogate. She wishes to be DNR. 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 Instructions: Need dose verification Bio- Immunozyme BYPA[facility] 03/24/24 02/18/25 History Held on 03/07/25. Instructions: Need dose verification BioMega- 1000 BYPA[facility] 03/24/24 02/18/25 History Held on 03/07/25. Instructions: Need dose verification Reacted Magnesium BYPA[facility] 03/24/24 02/18/25 [facility] 03/24/24 03/09/25 History Vitamin D 5,000 units BY[facility] DAILY 03/24/24 03/07/25 History vitamins A,C,T-zzhe-hpgacq 2,148 1 tablet PO BID 03/24/24 03/09/25 History mcg-113 mg-45 mg-17.4 mg tablet (PreserVision AREDS) estradiol 0.01% (0.1 mg/gram) 1 g vaginal 2XW 03/25/24 03/07/25 History vaginal cream levothyroxine 25 mcg tablet 25 mcg PO DAILY@0630 1 month #30 08/31/24 03/07/25 Rx tabs KappArest BYPAUTH 10/08/24 02/18/25 History Held on 03/07/25. Instructions: Need dose verification METHENAMINE HIPPUTATE [facility] B[facility] 10/08/24 03/09/25 History Theracran One 2 cap [facility] 10/08/24 03/09/25 History Ultimate Lu(Probiotic) See Rx Instructions BYPA[facility] 10/08/24 03/09/25 History .COMPLEX rivaroxaban 20 mg tablet (Xarelto) 20 mg PO DAILY #90 tabs 10/08/24 03/07/25 Rx sotalol 80 mg tablet 80 mg PO Q12HR #90 tabs 10/08/24 03/07/25 Rx pravastatin 80 mg tablet 80 mg PO DAILY #90 tabs 12/29/24 03/07/25 Rx tramadol 50 mg tablet 50 mg PO QID PRN pain #20 tabs 03/03/25 03/07/25 Rx Allergies Allergy/AdvReac Type Severity Reaction Status Date / Time prednisone Allergy Unknown Unknown Verified 03/06/25 23:18 clavulanic acid (From Allergy Rash Verified 03/06/25 23:18 Augmentin) Vital Signs Vital Signs - 24 hr 03/08/25 14:00 03/08/25 20:21 03/08/25 20:48 Temperature 97.3 F L 98 F Pulse Rate 59 L 60 60 Respiratory Rate 14 17 Blood Pressure 129/72 145/62 H Pulse Oximetry 97 98 Oxygen Delivery 03/08/25 20:55 03/09/25 06:00 03/09/25 08:49 Temperature 97.4 F L Pulse Rate 63 80 Respiratory Rate 17 Blood Pressure 139/54 L Pulse Oximetry 95 Oxygen Delivery Room Air 03/09/25 08:49 Temperature Pulse Rate Respiratory Rate Blood Pressure Pulse Oximetry Oxygen Delivery Room Air Exam Const: Other: Awake, alert, nontoxic, in sitting at the side of her bed. No respiratory difficulty. No significant abdominal distention. No rash. Results Labs 03/09/25 05:34 03/09/25 05:34 Labs: Short CBC 03/09/25 Range/Units 05:34 WBC 4.2 L (4.5-10.0) K/mm3 Hgb 11.1 L (12.0-15.0) g/dL Hct 35.0 L (37.0-47.0) % Plt Count 179 (150-375) k/mm3 BMP 03/09/25 05:34 Sodium 139 Potassium 4.1 Chloride 106 Carbon Dioxide 28 BUN 19 H Creatinine 0.78 Glucose 89 Calcium 8.8 Liver Function 03/09/25 Range/Units 05:34 Total Bilirubin 0.6 (0.2-1.3) mg/dL AST 30 (14-36) U/L ALT 18 (6-35) U/L Alkaline Phosphatase 72 (38-126) U/L Albumin 3.5 (3.5-5.1) g/dL
[2025-03-09 14:00] VITALS: BP 114/89; PULSE 68; RESP 16; TEMP 36.3; O2SAT 98
[2025-03-09] MEDS: RIVAROXABAN 20 MG TABLET PO (17:36)
[2025-03-09] MEDS: cefTRIAXone 1 GM in SODIUM CHLORIDE 0.9% IV 50 ML 100 ML IVPB (17:37)
[2025-03-09] MEDS: OPTI-GEN TAB 1 TABLET PO (17:43)
[2025-03-09 21:52] VITALS: PULSE 65
[2025-03-09] MEDS: MELATONIN 5 MG TABLET PO (21:52)
[2025-03-09 22:00] VITALS: BP 128/68; PULSE 66; RESP 18; TEMP 36.6; O2SAT 96
[2025-03-10] MEDS: LEVOTHYROXINE SODIUM 25 MCG TABLET PO (05:36)
[2025-03-10 06:00] VITALS: BP 160/82; PULSE 56; RESP 18; TEMP 37; O2SAT 98
[2025-03-10 07:01] LABS: Hematocrit 36.9 % (37.0-47.0); Hemoglobin 11.6 g/dL (12.0-15.0); Mean Corpuscular HGB Conc 31.4 g/dl (32-36); Mean Corpuscular Hemoglobin 30.6 pg (26-34); Mean Corpuscular Volume 97.4 fl (80-100); Platelet Count Result 178 k/mm3 (150-375); Red Blood Count 3.79 M/mm3 (4.2-5.4); White Blood Count 4.1 K/mm3 (4.5-10.0)
[2025-03-10 07:15] LABS: Alanine Aminotransferase 20 U/L (6-35); Albumin Level 3.7 g/dL (3.5-5.1); Alkaline Phosphatase 87 U/L (38-126); Anion Gap 5 mmol/L (4-12); Aspartate Amino Transferase 34 U/L (14-36); Bilirubin,Total 0.4 mg/dL (0.2-1.3); Blood Urea Nitrogen 19 mg/dL (7-17); Calcium 9.0 mg/dL (8.4-10.2); Carbon Dioxide 27 mmol/L (22-30); Chloride 107 mmol/L (98-107); Estimated CRCL calculation 44 ml/min; Estimated Glomerular Filt Rate > 60; Glucose 94 mg/dL (65-110); Potassium 3.9 mmol/L (3.4-5.0); Sodium 139 mmol/L (137-145); Total Protein 6.8 g/dL (6.3-8.2)
--- NOTE | 2025-03-10 07:34 | PC.NURSE ---
Patient complaint IV site was bruised and tender to touch, requested removal. Catheter removed intact, MD notified. Patient stated, I don't know why I need another IV, my doctor tole me I will be on PO antibiotics today. I don't want another IV until I talk to my doctor. Mitra Briones, MATY aware of patient IV refusal.
--- NOTE | 2025-03-10 07:37 | P.PNIM_ITS ---
Assessment and Plan Assessment and Plan (1) Recurrent UTI: Code(s): N39.0 - Urinary tract infection, site not specified Status: Acute Assessment and Plan: Patient has recurrent multidrug resistance UTIs, currently being followed by urology. Recent antibiotics use includes Bactrim, Cipro and Macrobid Recurrent UTI likely due to incomplete bladder emptying, she is unable to perform intermittent caths - UA 03/03: Cloudy appearance with trace protein, 3+ blood, positive nitrates, 3+ leukocytes, 3-10 RBC, and moderate bacteria UC grew significantly resistant Ecoli requiring IV antibiotics - Repeat 03/06: 2+ leukocytes, 21-50 WBC, 4+ bacteria. UC obtained on 03/07: Ecoli with resistance - Blood cultures: NG x 24 hours - previous micro reviewed - started on Rocephin on 03/06 - urology has been consulted as she is being followed outpatient for frequent drug resistant UTIs Recommend checking bladder scans and performing intermittent catheterization if residuals over 200 cc. Consider outpatient urodynamic studies, agree with Infectious Disease consultation. Patient can consider prophylactic weekly dosages of fosfomycin for UTI prophylaxis given she has failed numerous other prophylactic antibiotics with symptomatic urinary tract infections with E coli and a history of C diff - infectious Disease has been consulted as well. Consideration of weekly 3 gm fosfomycin, times several months, with subsequent re-evaluation for continued need after that time, unless out of pocket cost for this drug is prohibitive. This strategy would have best chance at success if combined with self catheterization. In fact, self catheterization may allow for better success of methenamine and estradiol, alone. Recommend treating current E coli UTI with at least 5 days of ceftriaxone to be followed by a subsequent 7 days of oral Bactrim double strength twice daily. Weekly Fosfomycin would be added after completing Bactrim and would replace methenamine. Would continue with estradiol, probiotics. Unclear if the addition of cranberry extract to either fosfomycin or methenamine would provide an additional benefit. Patient required a straight cath x1 for post void residual > 200 on 03/09. Will remain inpatient on IV Rocephin to complete 5 day course. (2) Atrial fibrillation: Code(s): I48.91 - Unspecified atrial fibrillation Status: Acute Assessment and Plan: - Current home medication: sotalol 80 mg q12h and xarelto 20 mg daily - Currently in sinus rhythm and remains rate controlled. (3) Hypothyroidism: Qualifiers: Hypothyroidism type: unspecified Qualified Code(s): E03.9 - Hypothyroidism, unspecified Code(s): E03.9 - Hypothyroidism, unspecified Status: Acute Assessment and Plan: -continue Levothyroid Medical Record Review I have reviewed the following patient records and this information was taken into consideration when formulating the assessment and plan.: previous labs Time Spent With Patient Time with patient: 25 - 35 minutes Subjective Date/time seen: 03/10/25 07:37 Interval history: 84 year old female with past medical history atrial fibrillation, hypothyroidism, and hyperlipidemia presents to the hospital for recurrent multidrug resistant UTI. Review of Systems Review of Systems: All systems reviewed & are unremarkable except as noted in HPI and below Exam Narrative: AF HR General: female in no acute respiratory distress who is nontoxic appearing, sitting up on side of bed. HEENT: Extraocular movement intact. Sclera clear and anicteric. No facial asymmetry. Chest: Lungs are clear to auscultation bilaterally. No wheezes or crackles. CV: Heart was regular rate and rhythm. Abd: Abdomen was soft. Nontender. Nondistended. Positive bowel sounds. Objective Data Vital Signs Vital Signs: Vital Signs - 24 hr 03/09/25 08:49 03/09/25 08:49 03/09/25 14:00 Temperature 97.4 F L Pulse Rate 80 68 Respiratory Rate 16 Blood Pressure 114/89 Pulse Oximetry 98 Oxygen Delivery Room Air 03/09/25 21:52 03/09/25 21:52 03/09/25 22:00 Temperature 97.9 F Pulse Rate 65 66 Respiratory Rate 18 Blood Pressure 128/68 Pulse Oximetry 96 Oxygen Delivery Room Air 03/10/25 06:00 Temperature 98.6 F Pulse Rate 56 L Respiratory Rate 18 Blood Pressure 160/82 H Pulse Oximetry 98 Oxygen Delivery Intake/Output Intake/Output: Intake & Output 03/07/25 03/08/25 03/09/25 03/10/25 23:59 23:59 23:59 23:59 Intake Total 1170 1280 2060 Output Total 650 Balance 1170 1280 1410 Meds/Results Medications: Active Medications Generic Name Dose Route Start Last Admin Trade Name Freq PRN Reason Stop Dose Admin Acetaminophen 650 mg 03/06/25 19:16 Acetaminophen 325 Mg Tablet PO Q4H PRN Mild Pain (1-3) or Fever Cyanocobalamin 1,000 mcg 03/07/25 09:00 03/09/25 08:48 Cyanocobalamin 1,000 Mcg Tablet PO 1,000 mcg QAM HUSSEIN Administration Ceftriaxone Sodium 1 gm/ 50 mls @ 100 mls/hr 03/07/25 18:00 03/09/25 18:07 Sodium Chloride IVPB Infused Q24H HUSSEIN Infusion Levothyroxine Sodium 25 mcg 03/07/25 06:30 03/10/25 05:36 Levothyroxine Sodium 25 Mcg Tablet PO 25 mcg DAILY@0630 HUSSEIN Administration Melatonin 5 mg 03/08/25 21:51 03/09/25 21:52 Melatonin 5 Mg Tablet PO 5 mg HS PRN Administration insomnia Multivitamins/Minerals 1 tablet 03/09/25 17:00 03/09/25 17:43 Opti-Gen Tab PO 1 tablet BID HUSSEIN Administration Ondansetron HCl 4 mg 03/06/25 19:16 Ondansetron Inj 4 Mg/2 Ml Vial IV PUSH Q4H PRN Nausea Pravastatin Sodium 80 mg 03/07/25 09:00 03/09/25 08:48 Pravastatin Sodium 20 Mg Tablet PO 80 mg DAILY HUSSEIN Administration Rivaroxaban 20 mg 03/07/25 17:00 03/09/25 17:36 Rivaroxaban 20 Mg Tablet PO 20 mg DAILY@1700 [facility] Administration Sotalol HCl 80 mg 03/07/25 09:00 03/09/25 21:52 Sotalol Hcl 80 Mg Tablet PO 80 mg Q12HR HUSSEIN Administration Tramadol HCl 50 mg 03/07/25 06:05 03/08/25 11:16 Tramadol Hcl (*Crx) 50 Mg Tablet PO 50 mg QID PRN Administration Pain Rated 4-6 Labs Labs: Laboratory Results - last 24 hr 03/10/25 06:19 WBC 4.1 L RBC 3.79 L Hgb 11.6 L Hct 36.9 L MCV 97.4 MCH 30.6 MCHC 31.4 L RDW 13.5 Plt Count 178 MPV 10.6 H Sodium 139 Potassium 3.9 Chloride 107 Carbon Dioxide 27 Anion Gap 5 BUN 19 H Creatinine 0.75 Estim Creat Clear Calc 44 Estimated GFR > 60 Glucose 94 Calcium 9.0 Total Bilirubin 0.4 AST 34 ALT 20 Alkaline Phosphatase 87 Total Protein 6.8 Albumin 3.7 Quality VTE Prophylaxis VTE prophylaxis: pharmacologic ordered
[2025-03-10 08:00] VITALS: O2SAT 98
[2025-03-10] MEDS: CYANOCOBALAMIN 1,000 MCG TABLET 1000 MCG PO (08:33)
[2025-03-10] MEDS: OPTI-GEN TAB 1 TABLET PO (08:33)
[2025-03-10] MEDS: PRAVASTATIN SODIUM 20 MG TABLET 80 MG PO (08:33)
[2025-03-10 08:34] VITALS: PULSE 62
[2025-03-10] MEDS: SOTALOL HCL 80 MG TABLET PO (08:34)
[2025-03-10] MEDS: cefTRIAXone 1 GM in SODIUM CHLORIDE 0.9% IV 50 ML 100 ML IVPB (12:16)
--- NOTE | 2025-03-10 12:45 | P.DS_ITS ---
DS: Admitting Diagnosis Discharge Date 03/10/2025 Admitting Diagnosis recurrent uti atrial fibrillation hypothyroidism DS: Discharge Diagnosis Discharge Diagnosis (1) Recurrent UTI: Code(s): N39.0 - Urinary tract infection, site not specified Status: Acute (2) Atrial fibrillation: Code(s): I48.91 - Unspecified atrial fibrillation Status: Acute (3) Hypothyroidism: Qualifiers: Hypothyroidism type: unspecified Qualified Code(s): E03.9 - Hypothyroidism, unspecified Code(s): E03.9 - Hypothyroidism, unspecified Status: Acute DS: Summary Hospital Course Reason for hospitalization: recurrent uti atrial fibrillation hypothyroidism Hospital Course: 84-year-old female with a past medical history of chronic incomplete bladder emptying, recurrent multidrug-resistant urinary tract infections, atrial fibrillation on anticoagulation, hypothyroidism, hyperlipidemia, and prior?C. difficile?colitis, who presented on 03/06/25 with dysuria and suprapubic discomfort in the setting of a recent urine culture growing?E. coli?resistant to available oral antibiotics. She was afebrile, hemodynamically stable, and without leukocytosis on admission. Initial urinalysis was significant for leukocyte esterase, pyuria, and bacteriuria, and she was admitted and started on intravenous ceftriaxone. During hospitalization, blood cultures remained negative, renal function was stable, and there was no clinical evidence of sepsis. Repeat urine cultures confirmed?E. coli?infection with evolving susceptibilities. Urology and Infectious Disease were consulted given her complex history of recurrent infections, incomplete bladder emptying, inability to perform intermittent self- catheterization, and prior?C. difficile?infections. Recommendations included completion of a 5-day course of intravenous ceftriaxone (completed during her hospitalization) followed by a 7-day course of oral trimethoprim- sulfamethoxazole (prescribed at discharge), with consideration of long-term weekly fosfomycin prophylaxis after completion of treatment and discontinuation of methenamine. Bladder scans were performed during admission, and she required intermittent straight catheterization for post-void residuals greater than 200 mL per urology recommendations for urinary retention. On day a discharge discussed patient with urology Dr. Kenny who states that patient does not need to self catheterize following discharge and this can be rediscussed at urology follow up appointment. Patient remained clinically stable, afebrile, and symptomatically improved with treatment. She had no complaints at time of discharge denying chest pain, palpitations, shortness of breath, nausea/vomiting, abdominal pain. She is ambulating at baseline and denies any dizziness/lightheadedness. She is discharged in stable condition with plans for outpatient urology follow- up in March 2025 and close monitoring for recurrent urinary symptoms, infectious disease follow up, and is to follow up with her PCP in 1 week. Status at Discharge Functional status at discharge: uses cane/walker Time Spent with Patient Time attestation: Total time spent providing and/or coordinating discharge services: Time spent: Greater than 30 minutes Exam Narrative: AF HR 56 RR 18 SPo2 98 BP 160/82 General: female in no acute respiratory distress who is nontoxic appearing, sitting up on side of bed. HEENT: Extraocular movement intact. Sclera clear and anicteric. No facial asymmetry. Chest: Lungs are clear to auscultation bilaterally. No wheezes or crackles. CV: Heart was regular rate and rhythm. Abd: Abdomen was soft. Nontender. Nondistended. Positive bowel sounds. DS: Data Data Completed and Pending Labs on day of discharge: Labs from last 24 hours 03/10/25 06:19 WBC 4.1 L RBC 3.79 L Hgb 11.6 L Hct 36.9 L MCV 97.4 MCH 30.6 MCHC 31.4 L RDW 13.5 Plt Count 178 MPV 10.6 H Sodium 139 Potassium 3.9 Chloride 107 Carbon Dioxide 27 Anion Gap 5 BUN 19 H Creatinine 0.75 Estim Creat Clear Calc 44 Estimated GFR > 60 Glucose 94 Calcium 9.0 Total Bilirubin 0.4 AST 34 ALT 20 Alkaline Phosphatase 87 Total Protein 6.8 Albumin 3.7 Preliminary micro results at discharge 03/07/25 00:52 Blood Culture - Preliminary Blood 03/07/25 00:52 Blood Culture - Preliminary Blood Discharge Plan Discharge Attending physician on discharge: Cassie Amos Consulting providers: Deepa Carrera; Alexandre Cee; Thea Otero Discharging Clinician: Deepa Carrera Anticipated Discharge Date/Time: 03/10/25 12:51 Patient Disposition: Home Activity: as tolerated Diet: as tolerated and heart healthy Discharge Instructions: Discharge disposition: Diagnosis?Recurrent urinary tract infection. Medications * Bactrim (trimethoprim?sulfamethoxazole): Take exactly as prescribed and complete the full course, even if symptoms improve. * Avoid missed doses. Do not take additional antibiotics unless instructed. Hydration & Bladder Care * Drink plenty of fluids unless you are on a fluid restriction. * Urinate regularly; do not hold urine. * Empty your bladder completely each time you urinate. * Wipe front to back after toileting. What to Expect * Burning or discomfort with urination should improve over several days. * Urinary frequency and urgency should gradually lessen. When to Seek Medical Care * Fever, chills, nausea/vomiting, or flank/back pain. * Worsening urinary symptoms or no improvement after 48?72 hours on antibiotics. * New confusion, weakness, or falls. * Rash, itching, shortness of breath, or other signs of allergic reaction. * Decreased urine output or dark urine. Follow-Up Appointments * Infectious Disease: Follow up as scheduled to review culture results, antibiotic response, and need for further treatment or suppression therapy. * Urology: Follow up as scheduled for evaluation of recurrent infections and to assess for contributing factors. * Discussed with urology and patient has close follow up in the office for continued discussion of recurrent uti management with fosfomycin and possible straight catheterization following acute infection, do not straight catheterize at home until follow up with urology Monitor blood pressures Take caution while standing, rising, or moving Change positions slowly taking a break between each position change If you standing feel dizzy sit back down and take a break Encouraged to continue with yearly vaccinations Return to the emergency department if he developed sudden shortness of breath, chest pain, nausea, vomiting, upset stomach or intractable diarrhea Return to the emergency department if you develop fever greater than 100.5 Follow-up with the primary care physician within 1-2 weeks Thank you for [facility] for your healthcare needs Patient Instructions: Antibiotic Form, Sulfamethoxazole/Trimethoprim (By mouth), Fosfomycin (By mouth), Rivaroxaban (By mouth), Urinary Tract Infection in Older Adults (DC) Patient Language: Stateless Stand Alone Forms: General Discharge Information Follow-up/Referrals: Kopjas,Joel, MD [Primary Care Provider, Internal Medicine] - 1 Week Connor Grajeda MD [Physician, Infectious Disease] - 3 Weeks Alexandre Cee MD [Physician, Urology] - Keep Reg. Scheduled Appt. Discharge Medications: New sulfamethoxazole-trimethoprim [Bactrim DS] 800-160 mg tablet 1 tablet PO Q12H Qty: 14 0RF Continued mecobalamin (vitamin B12) 1,000 mcg tablet,chewable 1,000 mcg PO DAILY Reacted Magnesium BYMOUTH Vitamin D 5,000 units BYMOUTH DAILY Thiamine 50 mg BYMOUTH DAILY Patient Comments: 50mg PreserVision AREDS 2,148 mcg-113 mg-45 mg-17.4mg tablet 1 tablet PO BID Rx Instructions: administer with AM meals sotalol 80 mg tablet 80 mg PO Q12HR Qty: 90 1RF METHENAMINE HIPPUTATE 1 g BYMOUTH BID Xarelto 20 mg tablet 20 mg PO DAILY Qty: 90 0RF Rx Instructions: must administer with evening meal Ultimate Dodie(Probiotic) See Rx Instructions BYMOUTH .COMPLEX Rx Instructions: Take 1 capsule (50 billion units) daily Theracran One 2 cap BYMOUTH BID KappArest BYMOUTH estradiol 0.01 % (0.1 mg/gram) cream 1 g vaginal 2XW levothyroxine 25 mcg tablet 25 mcg PO DAILY@0630 30 Days Qty: 30 5RF pravastatin 80 mg tablet 80 mg PO DAILY Qty: 90 0RF tramadol 50 mg tablet 50 mg PO QID PRN (Reason: pain) Qty: 20 0RF Held BioMega- 1000 BYMOUTH Hold Instructions: Resume on 03/12/25. hold for follow up with pcp Bio- Immunozyme BYMOUTH Hold Instructions: Resume on 03/12/25. hold until follow up with pcp Bio B Complex BYMOUTH Hold Instructions: Resume on 03/12/25. hold until follow up with pcp Date of admission: 03/08/25 13:10 Primary Care Provider: Joel Thomas Admitting Provider: Jon Blum Attending physician on admission: Jon Blum Condition: Stable Hospitalist MIPS Heart Failure (Exclusion) Patient has history of Heart Transplant or Left Ventricular Assistive Device?: No IF YES, STOP HERE Heart Failure (Qualifier) Patient has current or prior documentation of LVEF less than or equal to 40%, or mod/servere depressed LVSF?: No IF NO, STOP HERE
[2025-03-10 14:00] VITALS: BP 132/75; PULSE 77; RESP 18; TEMP 37.1; O2SAT 98
== END 2025-03-10 17:02 | disposition home or self-care (01) | DRG 690 ==
LOC: ANHED 19:22 → ANH3MEDSUR 20:01
PROVIDERS: Emergency Medicine; Nurse Practitioner; Admitting Provider Internal Medicine; Emergency Provider Student in an Organized Health Care Education/Training Program; PCP Internal Medicine; Visit Provider Student in an Organized Health Care Education/Training Program
DX: N39.0 Urinary tract infection, site not specified (principal); I48.0 Paroxysmal atrial fibrillation; E55.9 Vitamin D deficiency, unspecified; E53.9 Vitamin B deficiency, unspecified; E03.9 Hypothyroidism, unspecified; E78.5 Hyperlipidemia, unspecified; K57.30 Diverticulosis of large intestine without perforation or abscess without bleeding; K21.9 Gastro-esophageal reflux disease without esophagitis; L65.9 Nonscarring hair loss, unspecified; N32.3 Diverticulum of bladder; B96.20 Unspecified Escherichia coli [E. coli] as the cause of diseases classified elsewhere; G62.9 Polyneuropathy, unspecified; M81.0 Age-related osteoporosis without current pathological fracture; M47.816 Spondylosis without myelopathy or radiculopathy, lumbar region; M17.11 Unilateral primary osteoarthritis, right knee; H35.30 Unspecified macular degeneration; F40.240 Claustrophobia; Z79.899 Other long term (current) drug therapy; Z79.01 Long term (current) use of anticoagulants; Z86.19 Personal history of other infectious and parasitic diseases
CPT/HCPCS: 36415; 80053; 81001; 85025; 85027; 87040; 87086; 87186; 87637; 96365; 99285; A9270; G0378; J0696